=== PATIENT | male | born 1955 | race Caucasian/White ===

== ENCOUNTER 2016-10-05 10:27 | Inpatient (IN) | payer BC, OTHER ==
[2016-10-05 10:37] VITALS: BMI 42.5
--- NOTE | 2016-10-05 10:49 | PDOC ---
History of Present Illness <Jean Paul Justin - Last Filed: 10/05/16 14:17> - General History Source: Patient Exam Limitations: No Limitations - History of Present Illness Initial Comments: 10/05/16 11:21 The patient is a 60 year old male with past medical history of hypertension, GERD, and obesity and cigarette smoking who presents to the ED with complaints of testicular swelling for a week and a half and increased shortness of breath. The patient states that the swelling has been so bad that if effects his walking and sitting down. He reports seeing his Urologist on for the symptoms in which an ultrasound was performed and he was put on antibiotics. He reports that since starting the antibiotics, the swelling has gotten worse which has also been effecting his lower extremities. The patient states that he normally has shortness of breath, but it has worsened as well within the past few days to the point where he cannot walk a few steps without becoming short of breath. He denies any recent illness, fever, chills, nausea, vomiting, diarrhea, cough, chest pain. He denies any history of heart problems. Scrotal Ultrasound on 10/02/16 Report shows left epididymal head cysts and small complex right epididymal head cyst/hematocele. Significant soft tissue swelling/edema of the scrotal sac with vascular flow seen. PCP: Dr. Daniel Urologist: Dr. Flores <Janel Leos - Last Filed: 10/05/16 16:54> - General Chief Complaint: Urinary Problem Stated Complaint: POSSIBLE UTI Time Seen by Provider: 10/05/16 10:49 Past History - Past Medical History Anemia: No Asthma: No Cancer: No Cardiac Disorders: No CVA: No COPD: No CHF: No Dementia: No Diabetes: Yes (border line) GI Disorders: Yes (gerd) Disorders: No HTN: Yes Hypercholesterolemia: No Liver Disease: No Seizures: No Thyroid Disease: No Other medical history: morbid obesity/sleep apnea - Surgical History Abdominal Surgery: No Appendectomy: No Cardiac Surgery: No Cholecystectomy: No Lung Surgery: No Neurologic Surgery: No Orthopedic Surgery: No - Psycho/Social/Smoking Cessation Hx Anxiety: No Suicidal Ideation: No Smoking History: Current every day smoker Have you smoked in the past 12 months: Yes Number of Cigarettes Smoked Daily: 20 Information on smoking cessation initiated: Yes 'Breaking Loose' booklet given: 10/05/16 Hx Alcohol Use: No Drug/Substance Use Hx: No Substance Use Type: None <Jean Paul Justin - Last Filed: 10/05/16 14:17> <Janel Leos - Last Filed: 10/05/16 16:54> - Past Medical History Allergies/Adverse Reactions: Allergies Allergy/AdvReac Type Severity Reaction Status Date / Time No Known Allergies Allergy Verified 10/05/16 10:30 Home Medications: Ambulatory Orders Bystolic 10 mg PO DAILY 05/01/16 Exforge 10-160 mg Tablet 1 tab PO DAILY 05/01/16 Hydrochlorothiazide 12.5 mg PO DAILY 05/01/16 Amlodipine Besylate 10 mg PO DAILY 05/06/16 Pantoprazole Sodium [Protonix -] 1 tab PO DAILY 05/19/16 Ascorbate Calcium [Vitamin C] 1,000 mg PO DAILY 10/05/16 Aspirin [ASA -] 81 mg PO DAILY 10/05/16 Stratford-3/Dha/Epa/Fish Oil [[place]ford 3 500 Softgel] 350 mg PO DAILY 10/05/16 Sulfamethoxazole/Trimethoprim [Bactrim Ds Tablet] 1 each PO BID 10/05/16 Review of Systems - Review of Systems Able to Perform ROS?: Yes Comments:: 10/05/16 11:24 GENERAL/CONSTITUTIONAL: No fever or chills. No weakness. HEAD, EYES, EARS, NOSE AND THROAT: No change in vision. No ear pain or discharge. No sore throat. CARDIOVASCULAR: Present: shortness of breath, scrotal edema, bilateral lower extremity edema No chest pain. RESPIRATORY: No cough, wheezing, or hemoptysis. GASTROINTESTINAL: No nausea, vomiting, diarrhea or constipation. GENITOURINARY: No dysuria, frequency, or change in urination. MUSCULOSKELETAL: No joint or muscle swelling or pain. No neck or back pain. SKIN: No rash NEUROLOGIC: No headache, vertigo, loss of consciousness, or change in strength/ sensation. ENDOCRINE: No increased thirst. No abnormal weight change. HEMATOLOGIC/LYMPHATIC: No anemia, easy bleeding, or history of blood clots. ALLERGIC/IMMUNOLOGIC: No hives or skin allergy. All Other Systems: Reviewed and Negative <Janel Leos - Last Filed: 10/05/16 16:54> *Physical Exam - Vital Signs Last Vital Signs Temp Pulse Resp BP Pulse Ox 97.6 F 138 H 28 H 120/47 86 L 10/05/16 10:31 10/05/16 10:31 10/05/16 10:31 10/05/16 10:31 10/05/16 10:31 <Jean Paul Justin - Last Filed: 10/05/16 14:17> - Vital Signs Last Vital Signs Temp Pulse Resp BP Pulse Ox 97.6 F 145 H 22 100/76 89 L 10/05/16 10:31 10/05/16 11:10 10/05/16 11:10 10/05/16 11:10 10/05/16 11:10 - Physical Exam Comments: 10/05/16 11:25 GENERAL: Awake, alert, and fully oriented, in no acute distress HEAD: No signs of trauma EYES: PERRLA, EOMI, sclera anicteric, conjunctiva clear ENT: Auricles normal inspection, hearing grossly normal, nares patent, oropharynx clear without exudates. Moist mucosa NECK: Present: bilateral JVD Normal ROM, supple, no lymphadenopathy, or masses LUNGS: Present: bilateral rales No wheezes, and no crackles HEART: Regular rate and rhythm, normal S1 and S2, no murmurs, rubs or gallops ABDOMEN: Soft, nontender, normoactive bowel sounds. No guarding, no rebound. No masses EXTREMITIES: Normal range of motion, no edema. No clubbing or cyanosis. No cords, erythema, or tenderness NEUROLOGICAL: Cranial nerves II through XII grossly intact. Normal speech, normal gait SKIN: Warm, Dry, normal turgor, no rashes or lesions noted. <Janel Leos - Last Filed: 10/05/16 16:54> Heart Score/ECG Review - ECG Intrepretation Comment:: 10/05/16 11:33 ECG obtained at 10:49. Atrial fibrillation with rapid ventricular response at 140 bpm. Low voltage QRS. Significant change from last ECG report on 05/2015 <Janel Leos - Last Filed: 10/05/16 16:54> ED Treatment Course - LABORATORY CBC & Chemistry Diagram: 10/05/16 11:20 10/05/16 11:20 <Jean Paul Justin - Last Filed: 10/05/16 14:17> - LABORATORY CBC & Chemistry Diagram: 10/05/16 11:20 10/05/16 11:20 - RADIOLOGY Radiograph Interpretation: 10/05/16 11:59 CXR as reported by Dr. Perez reports large heart, new congestive changes with pleural fluid with atelectasis or infiltrate at bases. Chronic change in right upper lobe - Medications Given in the ED: ED Medications Discontinued Medications Generic Name Dose Route Start Last Admin Trade Name Taylor PRN Reason Stop Dose Admin Diltiazem HCl 30 mg 10/05/16 11:15 10/05/16 11:17 Cardizem - PO 10/05/16 11:16 30 mg ONCE ONE Administration Diltiazem HCl 10 mg 10/05/16 11:15 10/05/16 11:17 Cardizem Injection - IVPUSH 10/05/16 11:16 10 mg ONCE ONE Administration <Janel Leos - Last Filed: 10/05/16 16:54> Medical Decision Making - Critical Care Time Total Critical Care Time (minutes): 40 Critical Care Statement: The care of this patient involved high complexity decision making to prevent further life threatening deterioration of the patient 's condition and/or to evalute & treat vital organ system(s) failure or risk of failure. - Medical Decision Making 10/05/16 11:28 The patient is a 60 year old male with past medical history of hypertension, GERD, and obesity and cigarette smoking. The patient denies any history of heart disease. Last saw PCP last June. The patient presents today with a new onset of Afib. The patient is currently having his heart rate controlled by cardizem both IV and orally. Awaiting CXR, BMP, and cardiac profile. Will call María. Suspect to be admitted to telemetry. 10/05/16 12:01 CXR demonstrates pleuritic changes. Will administer Lasix. 10/05/16 12:08 Phone call placed to Dr. Daniel and discussed case with Dr. Sanz, instructed to admit to hospitalist with cardiology consult Dr. Carlin. Microblog sent to hospitalist 10/05/16 16:36 At 15:20, Subsequently receiving Percocet,the patient began to become unresponsive with the biomedical engineering aide at bedside. The patient was ultimately intubated after multiple attempts which resulted in assistance from anesthesia. 15:21 120 of succinate administered. 15:21 20 of etomidate administered with heart rate of 147; 109/68 bpm. 15:23 40 of lasix with heart rate of 157; O2 at 97 15:25 Heart rate of 160; intubation attempted with 7 1/2, not successful. 15:27 139 bpm and 97 O2 sat 15:30 152 bpm and 96 O2 sat 15:31 141 bpm and 85 O2 sat 15:32 154 bpm and 90 O2 sat; intubation attempted with 7, not successful 15:38 20 of etomidate O2 sat of 75 15:39 116/85 bp 15:40 Intubation successful with #7 ETT with help of anesthesia 15:51 CXR portable ordered The patient will receive a central line for hemodynamic management. Patient is now vented, in ER bed with vent settings of Tidal volume initially at 1000, then to 750, and now at 500. Case was discussed with Dr. Brown and biomedical engineering aide Dr. Reyes. <Janel Leos - Last Filed: 10/05/16 16:54> *DC/Admit/Observation/Transfer - Discharge Dispostion Admit: Yes - Attestations Physician Attestion: 10/05/16 10:49 I, Dr. Jean Paul Justin, attest that this document has been prepared under my direction and personally reviewed by me in its entirety. I further attest, that it accurately reflects all work, treatment, procedures and medical decision -making performed by me. <Jean Paul Justin - Last Filed: 10/05/16 14:17> - Attestations Scribe Attestion: 10/05/16 11:26 Documentation prepared by Janel Leos, acting as mobile paramedical examiner for Jean Paul Justin DO. <Janel Leos - Last Filed: 10/05/16 16:54> Diagnosis at time of Disposition: Atrial fibrillation, new onset, Lymphedema of both lower extremities, Edema of scrotum Congestive heart failure (CHF) Qualifiers: Congestive heart failure type: combined Congestive heart failure chronicity: acute Qualified Code(s): I50.41 - Acute combined systolic (congestive) and diastolic (congestive) heart failure Abrasion hip/leg Qualifiers: Encounter type: initial encounter Laterality: right Qualified Code(s): S80.811A - Abrasion, right lower leg, initial encounter Cellulitis Qualifiers: Site of cellulitis: extremity Site of cellulitis of extremity: lower extremity Laterality: right Qualified Code(s): L03.115 - Cellulitis of right lower limb Diagnosis at time of Disposition: (Ruled Out): Cat scratch of right lower leg - Discharge Dispostion Condition at time of disposition: Fair - Referrals
[2016-10-05] MEDS ORDERED: dilTIAZem HCL 125 MG/25 ML - 25 ML VIAL ONE (11:06)
[2016-10-05] MEDS ORDERED: dilTIAZem HCL 30 MG TABLET (FP) ONE ×2 (11:12→13:29)
[2016-10-05] MEDS ORDERED: dilTIAZem HCL 30 MG TABLET (FP) PO ONE ×2 (11:15→12:59)
[2016-10-05] MEDS ORDERED: dilTIAZem HCL 50 MG/10 ML - 10 ML VIAL IVPUSH ONE ×2 (11:15→11:18)
[2016-10-05 11:47] LABS: BASOPHIL 0.9 % (0-2.0); EOSINOPHIL 1.8 % (0-4.5); MCH 31.7 pg (25.7-33.7); MCHC 32.5 g/dl (32.0-35.9); MEAN CELL VOLUME 97.5 fl (80-96); MEAN PLT VOLUME 9.8 fl (7.5-11.1); NEUTROPHILS 75.8 % (42.8-82.8); PLATELET COUNT 116 K/MM3 (134-434); RDW 17.1 % (11.9-15.9); WHITE BLOOD COUNT 8.8 K/mm3 (4.0-10.0)
[2016-10-05 11:54] LABS: ALBUMIN 3.2 g/dl (3.4-5.0); ANION GAP 13 (8-16); BILIRUBIN,TOTAL 1.7 mg/dL (0.2-1.0); CALCIUM 8.8 mg/dL (8.5-10.1); CO2 32 mmol/L (21-32); CREATININE 1.4 mg/dL (0.7-1.3); GLUCOSE,RANDOM 108 mg/dL (74-106); SGOT/AST 25 U/L (15-37); SGPT/ALT 23 U/L (12-78); TOT PROT 6.1 g/dl (6.4-8.2)
[2016-10-05 11:56] LABS: ALK PHOS 54 U/L (45-117); TROPONIN I < 0.02 ng/ml (0.00-0.05)
[2016-10-05 11:59] LABS: INR 1.33 (0.82-1.09); PROTHROMBIN TIME (PATIENT) 14.7 SEC (9.98-11.88)
[2016-10-05] MEDS ORDERED: FUROSEMIDE 40 MG/4 ML INJECTABLE VIAL ONE ×3 (12:00→19:43)
[2016-10-05] MEDS ORDERED: FUROSEMIDE 40 MG/4 ML INJECTABLE VIAL IVPB ONE (12:00)
[2016-10-05] MEDS ORDERED: OXYCODONE/APAP 5/325MG COMBO TABLET PO ONE (13:00)
[2016-10-05] MEDS ORDERED: ONDANSETRON *ODT* 4 MG TABLET SL ONE (13:00)
[2016-10-05] MEDS ORDERED: OXYCODONE/APAP 5/325MG COMBO TABLET ONE (13:29)
[2016-10-05] MEDS ORDERED: ONDANSETRON 8 MG TABLET (FP) PO ONE (13:29)
[2016-10-05] MEDS ORDERED: NALOXONE HCL 0.4 MG/ML VIAL ONE (15:14)
[2016-10-05] MEDS ORDERED: RAPID SEQUENCE INTUBATION KIT NR ONE (15:19)
[2016-10-05] MEDS ORDERED: ETOMIDATE 20 MG/10 ML AMPUL IVPUSH ONE ×2 (15:37→16:05)
[2016-10-05] MEDS ORDERED: FUROSEMIDE 40 MG/4 ML INJECTABLE VIAL IVPUSH ONE ×2 (15:44→22:42)
[2016-10-05] MEDS ORDERED: dilTIAZem HCL 50 MG/10 ML - 10 ML VIAL IVPUSH PRN (15:55)
--- NOTE | 2016-10-05 15:56 | PROC ---
Procedure Note Procedure: Anesthesia Support Representative Called to ER stat for pt with difficult airway. On arrival Sat 75% Told multiple attempts of intubation without success DL x 1 with [place] scope VC visualized vaguely due to blood #& ETT passed +etco2 BS bilaterally Tube taped at 22cm CXR ordered Sat increased to 93 % Care left to ER physicians Lobo Moore MD
[2016-10-05] MEDS ORDERED: PROPOFOL 100 ML ONE ×2 (16:02→21:47)
[2016-10-05] MEDS ORDERED: SUCCINYLCHOLINE CHLORIDE 200 MG/10 ML VIAL IVPUSH ONE (16:04)
[2016-10-05] MEDS ORDERED: ETOMIDATE 40 MG/20 ML VIAL IVPUSH ONE (16:04)
[2016-10-05] MEDS ORDERED: ROCURONIUM BROMIDE 50 MG/5 ML VIAL IV ONE (16:04)
[2016-10-05] MEDS ORDERED: DOPAMINE 400 MG/D5W - 250 ML IVPB ONE (16:12)
[2016-10-05] MEDS ORDERED: PHENYLEPHRINE HCL 20,000 MCG in SODIUM CHLORIDE 248 ML IVPB SCH (16:15)
[2016-10-05] MEDS ORDERED: DOPAMINE 400 MG/D5W - 250 ML IVPB SCH (16:15)
[2016-10-05] MEDS ORDERED: FUROSEMIDE 40 MG/4 ML INJECTABLE VIAL IVPUSH SCH (16:30)
[2016-10-05 16:46] LABS: ARTERIAL BLD GAS O2 SATURATION 97.6 % (90-98.9); ARTERIAL BLOOD GAS HCO3 29.3 meq/L (22-26)
[2016-10-05 16:52] LABS: ALLENS TEST POSITIVE; ART PUNCT SITE RIGHT RADIAL; LPM/O2% 100%; MECH. VENT. YES; PT. ON O2? YES; TYPE OF O2 MEC.VENT; VENT RATE 12; VT/PRESS 750
[2016-10-05] MEDS ORDERED: PHENYLEPHRINE HCL 10 MG/1 ML SINGLE DOSE VIAL ONE (16:59)
--- NOTE | 2016-10-05 17:32 | CONSULT ---
Consult Consult Specialty:: PULM/CCM Referred by:: ER Reason for Consultation:: Acute Respiratory Failure - History of Present Illness Chief Complaint: SOB / swelling History of Present Illness: 60 M, with listed medical/surgical history. Hypertension, GERD, and obesity, likely OSAS, and cigarette smoking. Apparently following with his PMD/ Urologist for lower extremity swelling and testicular swelling for a week and a half and increased shortness of breath. No travel history or sick contacts. Presented to the ER and decompensated requiring intubation. Now seen in the ER. He is intubated and sedated. He is on AC mode of vent 80% FiO2 and PEEP 0. His saturation is 96%. He remains in AFib with the rate in the low 100's. Right IJ TLC is being completed at the bedside. ABG noted and wa already adjusted by the primary team. Repeat will be obtained once he is settled in the ICU. CXR : ETT in position / consistent with APE / cardiomegaly. Off note : Scrotal US 10/02/16 : left epididymal head cysts and small complex right epididymal head cyst/hematocele. Significant soft tissue swelling/edema of the scrotal sac with vascular flow seen. - History Source History Provided By: Medical Record Limitations to Obtaining History: Clinical Condition - Alcohol/Substance Use Hx Alcohol Use: No - Smoking History Smoking history: Current every day smoker Have you smoked in the past 12 months: Yes Aproximately how many cigarettes per day: 20 Home Medications - Allergies Allergies/Adverse Reactions: Allergies Allergy/AdvReac Type Severity Reaction Status Date / Time No Known Allergies Allergy Verified 10/05/16 10:30 - Home Medications Home Medications: Ambulatory Orders Bystolic 10 mg PO DAILY 05/01/16 Hydrochlorothiazide 12.5 mg PO DAILY 05/01/16 Pantoprazole Sodium [Protonix -] 1 tab PO DAILY 05/19/16 Amlodipine/Valsartan [Exforge 5-160 mg Tablet] 1 tab PO DAILY 10/05/16 Ascorbate Calcium [Vitamin C] 1,000 mg PO DAILY 10/05/16 Aspirin [ASA -] 81 mg PO DAILY 10/05/16 Chancellor-3/Dha/Epa/Fish Oil [[place]ancellor 3 500 Softgel] 350 mg PO DAILY 10/05/16 Sulfamethoxazole/Trimethoprim [Bactrim Ds Tablet] 1 each PO BID 04/02/17 Review of Systems Unable to obtain ROS, reason: not able to provide Physical Exam Vital Signs: Vital Signs Temperature 97.6 F 10/05/16 10:31 Pulse Rate 133 H 10/05/16 17:16 Respiratory Rate 12 10/05/16 17:13 Blood Pressure 78/57 10/05/16 17:16 O2 Sat by Pulse Oximetry (%) 97 10/05/16 17:13 Constitutional: Yes: Obese, Other (Intubated and sedated) Eyes: Yes: Conjunctiva Clear HENT: Yes: Atraumatic, Normocephalic, Other (intubated) Neck: Yes: Supple, Trachea Midline Cardiovascular: Yes: Tachycardia, Pulse Irregular Respiratory: Yes: Accessory Muscle Use, Mechanically Ventilated, Poor Air Entry , Rales, Rhonchi, Tachypnea. No: Stridor, Wheezes Gastrointestinal: Yes: Normal Bowel Sounds, Soft, Abdomen, Obese ...Rectal Exam: Yes: Deferred Renal/: Yes: Scrotal Edema, Other (maxwell) Breast(s): Yes: Gynecomastia Extremities: Yes: Cold Edema: Yes Peripheral Pulses WNL: No Integumentary: Yes: Venous Stasis Changes Neurological: Yes: Other (sedated) Imaging - Results Chest X-ray: Report Reviewed, Image Reviewed Problem List - Problems (1) Atrial fibrillation, new onset Code(s): I48.91 - UNSPECIFIED ATRIAL FIBRILLATION (2) Congestive heart failure (CHF) Code(s): I50.9 - HEART FAILURE, UNSPECIFIED Qualifiers: Congestive heart failure type: combined Congestive heart failure chronicity: acute Qualified Code(s): I50.41 - Acute combined systolic ( congestive) and diastolic (congestive) heart failure (3) Edema of scrotum Code(s): N50.89 - OTHER SPECIFIED DISORDERS OF THE MALE GENITAL ORGANS (4) Lymphedema of both lower extremities Code(s): I89.0 - LYMPHEDEMA, NOT ELSEWHERE CLASSIFIED (5) Acute respiratory failure requiring reintubation Code(s): J96.00 - ACUTE RESPIRATORY FAILURE, UNSP W HYPOXIA OR HYPERCAPNIA (6) Sleep apnea Code(s): G47.30 - SLEEP APNEA, UNSPECIFIED (7) Renal insufficiency Code(s): N28.9 - DISORDER OF KIDNEY AND URETER, UNSPECIFIED (8) Morbid obesity Code(s): E66.01 - MORBID (SEVERE) OBESITY DUE TO EXCESS CALORIES Assessment/Plan ABG to be repeated Repeat CXR after TLC completed Strict I & O Cardiology consult ECHO Pressor support as needed (but I suspect he would benefit from an inotrope) If A Fib are uncontrolled and BP is marginal -> Digoxin or Amio (D/W cardiology ) Follow CE Sedate for vent synchrony Once hemodynamics are stable -> Add PEEP Will need formal sleep workup as an outpatient Monitor off ABX for now ICU monitoring Thank you. Dr Sanz CCTime 35"
--- NOTE | 2016-10-05 18:20 | PN ---
Teaching Attending Note Name of Resident: Hillary Reyes ATTENDING PHYSICIAN STATEMENT I saw and evaluated the patient. I reviewed the resident's note and discussed the case with the resident. I agree with the resident's findings and plan as documented. Patient was found hypoxic and was intubated in ED. Vital Signs Temperature 97.6 F 10/05/16 10:31 Pulse Rate 115 H 10/05/16 17:26 Respiratory Rate 12 10/05/16 17:26 Blood Pressure 90/72 10/05/16 17:26 O2 Sat by Pulse Oximetry (%) 96 10/05/16 17:26 CBCD WBC 8.8 K/mm3 (4.0-10.0) 10/05/16 11:20 RBC 5.66 M/mm3 (4.00-5.60) H 10/05/16 11:20 Hgb 17.9 GM/dL (11.7-16.9) H 10/05/16 11:20 Hct 55.2 % (35.4-49) H 10/05/16 11:20 MCV 97.5 fl (80-96) H 10/05/16 11:20 MCHC 32.5 g/dl (32.0-35.9) 10/05/16 11:20 RDW 17.1 % (11.9-15.9) H 10/05/16 11:20 Plt Count 116 K/MM3 (134-434) L 10/05/16 11:20 MPV 9.8 fl (7.5-11.1) D 10/05/16 11:20 CMP Sodium 143 mmol/L (136-145) 10/05/16 11:20 Potassium 3.9 mmol/L (3.5-5.1) 10/05/16 11:20 Chloride 98 mmol/L (98-107) 10/05/16 11:20 Carbon Dioxide 32 mmol/L (21-32) 10/05/16 11:20 Anion Gap 13 (8-16) 10/05/16 11:20 BUN 31 mg/dL (7-18) H D 10/05/16 11:20 Creatinine 1.4 mg/dL (0.7-1.3) H D 10/05/16 11:20 Creat Clearance w eGFR 51.35 (>60) 10/05/16 11:20 Random Glucose 108 mg/dL (74-106) H 10/05/16 11:20 Calcium 8.8 mg/dL (8.5-10.1) 10/05/16 11:20 Total Bilirubin 1.7 mg/dL (0.2-1.0) H D 10/05/16 11:20 AST 25 U/L (15-37) D 10/05/16 11:20 ALT 23 U/L (12-78) D 10/05/16 11:20 Alkaline Phosphatase 54 U/L (45-117) D 10/05/16 11:20 Total Protein 6.1 g/dl (6.4-8.2) L 10/05/16 11:20 Albumin 3.2 g/dl (3.4-5.0) L 10/05/16 11:20 CARDIAC ENZYMES Creatine Kinase 168 IU/L (39-308) 10/05/16 11:20 Troponin I < 0.02 ng/ml (0.00-0.05) 10/05/16 11:20 Chest: Intubated, positive for rales Heart: S1S2 positive, Afib with RVR rate of 115 Abdomen/Extremities: Anasarca : scrotal swelling size of large grapefruit ASSESSMENT AND PLAN: This is a 60 yo M every day smoker with PMH of HTN, GERD, and obesity who presents due to testicular swelling x 1 W and worsening SOB. #Acute respiratory failure s/p intubation ICU/Pulmonary consult , admitted to ICU Abg stst, Ceq6 x 3 more sets Chardio consult # Acute exacerbation of CHF , will get echo, ce q6 x 3 cardio consult , BNP, EKG, Lasix IV once BP is stable , for further orders # Afib with RVR with HR of 115 s/p cardizem in ED., Cardiology consult # aCUTE hYPOTENSION ON nEOSYNEPHRIN DRIP continue once BP stabilezes will start the patient on Lasix, SBP is on low side at this time. #Acute Renal failure # Anasarca DVT Px:Lovenox
--- NOTE | 2016-10-05 18:36 | HP ---
CHIEF COMPLAINT: "my scrotum hurts" PCP: Dr. Daniel Urologist: Dr. Flores HISTORY OF PRESENT ILLNESS: This is a 60 yo M every day smoker with PMH of HTN, GERD, and obesity who presents due to testicular swelling x 1 W and worsening SOB. His baseline exercise intolerance became worse over the past week and a half, him being unable to walk a few steps w/o needing to stop. He visited his Urologist on , had scrotal US done and was put on bactrim, whihc did not alleviate his symptoms. He also complains of increased LE and abd edema. He denies any recent illness, fever, chills, nausea, vomiting, diarrhea, cough, chest pain. He denies any history of heart problems. In ed he is tachycardic a fib 150s, diffusely edematous, cxr showing severe pulm congestion and cardiomegaly. Patient received 40 lasix iv and 2 percocet in ed as well as several doses cardizem. I found him unresponsive to sternal rub and blue in ED. He was last [facility] half an hour prior. He had a pulse, a fib rate 150's, agonal breathing, pulse ox 74%. He was intubated, given another 40 lasix, central line placed, admitted to ICU. before inubation, he did wake up while being bagged, moved both UE. History obtained from mother and record as patient was unresponsive Scrotal Ultrasound on 10/02/16 Report shows left epididymal head cysts and small complex right epididymal head cyst/hematocele. Significant soft tissue swelling/edema of the scrotal sac with vascular flow seen. ER course was notable for: (1)labs (2)cxr (3)lasix, cardizem, percocet Recent Travel: denies PAST MEDICAL HISTORY: as above PAST SURGICAL HISTORY: as above Social History: lives with mother Smoking: yes Alcohol: no Drugs: no Family History: HTN, HLD Allergies No Known Allergies Allergy (Verified 10/05/16 10:30) HOME MEDICATIONS: Home Medications Medication Instructions Recorded Bystolic 10 mg PO DAILY 05/01/16 Hydrochlorothiazide 12.5 mg PO DAILY 05/01/16 Pantoprazole Sodium [Protonix -] 1 tab PO DAILY 05/19/16 Amlodipine/Valsartan [Exforge 1 tab PO DAILY 10/05/16 5-160 mg Tablet] Ascorbate Calcium [Vitamin C] 1,000 mg PO DAILY 10/05/16 Aspirin [ASA -] 81 mg PO DAILY 10/05/16 [place]-3/Dha/Epa/Fish Oil [[place] 3 350 mg PO DAILY 10/05/16 500 Softgel] Sulfamethoxazole/Trimethoprim 1 each PO BID 10/05/16 [Bactrim Ds Tablet] REVIEW OF SYSTEMS unable to obtain PHYSICAL EXAMINATION Vital Signs - 24 hr 10/05/16 10/05/16 10/05/16 16:05 16:17 16:25 Pulse Rate Pulse Rate [ 120 H 87 Apical] Respiratory 30 H 12 12 Rate Blood Pressure Blood Pressure 88/76 86/50 [Left Arm] O2 Sat by Pulse Oximetry (%) 10/05/16 10/05/16 10/05/16 16:30 17:13 17:16 Pulse Rate 121 H 133 H Pulse Rate [ Apical] Respiratory 50 H 12 Rate Blood Pressure 84/55 78/57 Blood Pressure [Left Arm] O2 Sat by Pulse 97 97 Oximetry (%) 10/05/16 17:26 Pulse Rate Pulse Rate [ 115 H Apical] Respiratory 12 Rate Blood Pressure Blood Pressure 90/72 [Left Arm] O2 Sat by Pulse 96 Oximetry (%) GENERAL: unresponsive, blue HEAD: Normal with no signs of trauma, obese EYES: pinpoint EARS, NOSE, THROAT: Moist mucous membranes. NECK: supple + JVD LUNGS: diffuse ronchi HEART: tachy, irregular ABDOMEN: very distended, 1+ edema, moderately erythematous, reduced bowel sounds MUSCULOSKELETAL: No bony deformities UPPER EXTREMITIES: 2+ pulses, mild peripheral edema. LOWER EXTREMITIES: 1+ pulses, 3+ pitting edema, chronic stasis dermatitis b/l NEUROLOGICAL: unable to assess PSYCHIATRIC: unable to assess SKIN: Warm, dry Laboratory Results - last 24 hr 10/05/16 16:00 Puncture Site Right radial ABG pH 7.30 L ABG pCO2 at Pt Temp 61.4 H* ABG pO2 at Pt Temp 111.0 H ABG HCO3 29.3 H ABG O2 Sat (Measured) 97.6 ABG O2 Content 23.6 H ABG Base Excess 1.0 Ye Test Positive O2 Delivery Device Mec.vent Oxygen Flow Rate 100% Vent Mode A/c Vent Rate 12 Mechanical Rate Yes PEEP 0.0 Pressure Support Vent 750 ASSESSMENT/PLAN: This is a 60 yo M every day smoker with PMH of HTN, GERD, and obesity who presents due to testicular swelling x 1 W and worsening SOB. Acute decompensated CHF -NYHA class III-IV -severe fluid overload, anasarca -s/p 8 lasix IV -duplex LE -TTE -cardio consult appreciated -would start lasix 100 bid when pressure improves -trend trop -strict I and O -daily weight -am xray, abg -tele monitoring -icu monitoring Hypotension -cental line in -phenylephrine A fib -cardizem IV prn -vivienne full dose MONIE -creat 1.4 (baseline 0.9 in oct) -cardiorenal -renal consult -diurese Acute hypoxic respiratory failure -intubated -keep FIO2 >88 -daily weaning FEN -diurese -replete lytes -npo PPX: PPI, Vivienne Dispo: ICU Problem List - Problem (1) Acute respiratory failure requiring reintubation Code(s): J96.00 - ACUTE RESPIRATORY FAILURE, UNSP W HYPOXIA OR HYPERCAPNIA (2) Atrial fibrillation, new onset Code(s): I48.91 - UNSPECIFIED ATRIAL FIBRILLATION (3) Congestive heart failure (CHF) Code(s): I50.9 - HEART FAILURE, UNSPECIFIED Qualifiers: Congestive heart failure type: combined Congestive heart failure chronicity: acute Qualified Code(s): I50.41 - Acute combined systolic ( congestive) and diastolic (congestive) heart failure (4) Edema of scrotum Code(s): N50.89 - OTHER SPECIFIED DISORDERS OF THE MALE GENITAL ORGANS (5) Lymphedema of both lower extremities Code(s): I89.0 - LYMPHEDEMA, NOT ELSEWHERE CLASSIFIED (6) Morbid obesity Code(s): E66.01 - MORBID (SEVERE) OBESITY DUE TO EXCESS CALORIES (7) Renal insufficiency Code(s): N28.9 - DISORDER OF KIDNEY AND URETER, UNSPECIFIED (8) Sleep apnea Code(s): G47.30 - SLEEP APNEA, UNSPECIFIED (9) Acute kidney injury Code(s): N17.9 - ACUTE KIDNEY FAILURE, UNSPECIFIED (10) Anasarca Code(s): R60.1 - GENERALIZED EDEMA Visit type - Emergency Visit Emergency Visit: Yes ED Registration Date: 10/05/16 Care time: The patient presented to the Emergency Department on the above date and was hospitalized for further evaluation of their emergent condition. - New Patient This patient is new to me today: Yes Date on this admission: 10/05/16 - Critical Care Critical Care patient: Yes Total Critical Care Time (in minutes): 95 (na) Critical Care Statement: The care of this patient involved high complexity decision making to prevent further life threatening deterioration of the patient 's condition and/or to evalute & treat vital organ system(s) failure or risk of failure.
[2016-10-05] MEDS: FENTANYL INJECTION 500 MCG in DEXTROSE 5%-WATER - 90 ML IJ SCH (19:55)
[2016-10-05] MEDS ORDERED: FUROSEMIDE 100 MG/10 ML INJECTABLE VIAL IVPUSH ONE (20:00)
[2016-10-05] MEDS ORDERED: PNEUMOC 13-VAL CONJ-DIP CRM/PF 0.5 ML DISP.SYRIN IM ONE (20:00)
--- NOTE | 2016-10-05 20:13 | CON.NEP ---
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 Pt presented with increased shortness of breath and Scrotal edema. Pt found to have pulmonary edema While in ED pt required intubation Pt now in the ICU FIO2@ at 100% with PEEP of 10 Phenylephrine 15 mcg/min and now being switched to Levophed since LIJ line just inserted Also on Lovenox for new onset of A Fib Asked to evaluate for azotemia Pt is awake and responsive on the ventilator and denies any prior H/O kidney disease - History Source History Provided By: Medical Record - Alcohol/Substance Use Hx Alcohol Use: No - Smoking History Smoking history: Current every day smoker Have you smoked in the past 12 months: Yes Aproximately how many cigarettes per day: 20 Home Medications - Allergies Allergies/Adverse Reactions: Allergies Allergy/AdvReac Type Severity Reaction Status Date / Time No Known Allergies Allergy Verified 10/05/16 10:30 - Home Medications Home Medications: Ambulatory Orders Bystolic 10 mg PO DAILY 05/01/16 Hydrochlorothiazide 12.5 mg PO DAILY 05/01/16 Pantoprazole Sodium [Protonix -] 1 tab PO DAILY 05/19/16 Amlodipine/Valsartan [[place] 5-160 mg Tablet] 1 tab PO DAILY 10/05/16 Ascorbate Calcium [Vitamin C] 1,000 mg PO DAILY 10/05/16 Aspirin [ASA -] 81 mg PO DAILY 10/05/16 [place]-3/Dha/Epa/Fish Oil [[place] 3 500 Softgel] 350 mg PO DAILY 10/05/16 Sulfamethoxazole/Trimethoprim [Bactrim Ds Tablet] 1 each PO BID 10/05/16 Review of Systems Unable to obtain ROS, reason: Pt intubated Nephrology Consult - Height Height: 5 ft 8 in - Weight Weight: 280 lb 0.005 oz - BMI Body Mass Index (BMI): 42.5 - Lab Results CBC,BMP: Laboratory Tests 10/05/16 10/05/16 10/05/16 16:00 19:00 19:00 WBC 10.5 H RBC 5.67 H Hgb 17.9 H Hct 55.8 H MCV 98.4 H MCHC 32.1 RDW 17.6 H Plt Count 137 MPV 9.5 Neutrophils % 81.1 Lymphocytes % 5.4 L D Monocytes % 13.2 H Eosinophils % 0.2 D Basophils % 0.1 INR Pending ABG pH 7.30 L ABG pCO2 at Pt Temp 61.4 H* ABG pO2 at Pt Temp 111.0 H ABG HCO3 29.3 H ABG O2 Sat (Measured) 97.6 Laboratory Tests 10/05/16 11:20 Sodium 143 Potassium 3.9 Chloride 98 Carbon Dioxide 32 Anion Gap 13 BUN 31 H D Creatinine 1.4 H D Creat Clearance w eGFR 51.35 Random Glucose 108 H Total Bilirubin 1.7 H D Alkaline Phosphatase 54 D Creatine Kinase 168 Creatine Kinase Index 1.8 CK-MB (CK-2) 3.008 Troponin I < 0.02 B-Natriuretic Peptide 1613.37 H Total Protein 6.1 L Albumin 3.2 L Anion Gap: Anion Gap Anion Gap 13 (8-16) 10/05/16 11:20 - Imaging Chest X-ray: Other (CXR Enlarged heart with congestion, pleural effusions, atelectasis and/or infiltrate of the RLL) EKG: Other (EKG A Fib with RVR) - Physical Examination Vital Signs: Vital Signs Temperature 97 F L 10/05/16 18:15 Pulse Rate 133 H 10/05/16 19:00 Respiratory Rate 14 10/05/16 19:15 Blood Pressure 102/84 10/05/16 19:00 O2 Sat by Pulse Oximetry (%) 91 L 10/05/16 17:30 Neck: Yes: Other (L IJ Catheter) Cardiovascular: Yes: Pulse Irregular, S1, S2, Other (Distant heart sounds) Respiratory: Yes: Diminished (Equal air entry B/L with some rhonchi) Gastrointestinal: Yes: Soft, Distention, Other (Firm and reducible ombelical hernia present) Renal/: Yes: Other (Scrotal edema) Extremities: Yes: Other (Stasis changes of the LE) Edema: (Edema up to thighs ) Neurological: Yes: Alert, Other (Cooperative) Assessment/Plan Impression Azotemia likely prerenal from decompebnsated CHF in addition to medication effect including prior use of Bactrim, ARB and diuretic use Respiratory Failure from CHF New Onset of A Fib HTN Obesity Chronic smoker with possible JUANA Plan UA Echocardiogram Abdominal Sonogram Pt being given Lasix 60 mgs IV X1 and depending on the response and BP consider giving it as q 12h Cardiology to see pt Repeat labs in am including TFT Control of the HR and anticoagulation as per primary care Discussed with the luncheonette manager Bag Tester Thank You Will Follow Dr Hurley
[2016-10-05] MEDS ORDERED: AMIODARONE HCL 150 MG/3 ML VIAL IVPUSH ONE (20:16)
[2016-10-05 20:21] LABS: BASOPHIL 0.1 % (0-2.0); EOSINOPHIL 0.2 % (0-4.5); MCH 31.6 pg (25.7-33.7); MCHC 32.1 g/dl (32.0-35.9); MEAN CELL VOLUME 98.4 fl (80-96); MEAN PLT VOLUME 9.5 fl (7.5-11.1); NEUTROPHILS 81.1 % (42.8-82.8); PLATELET COUNT 137 K/MM3 (134-434); RDW 17.6 % (11.9-15.9); WHITE BLOOD COUNT 10.5 K/mm3 (4.0-10.0)
[2016-10-05] MEDS ORDERED: NOREPINEPHRINE BITARTRATE 4 MG/4 ML ML IV ONE (20:22)
[2016-10-05 20:29] LABS: URINE APPEARANCE SLCLOUDY; URINE BILIRUBIN NEGATIVE (NEGATIVE); URINE COLOR YELLOW; URINE GLUCOSE (UA) NEGATIVE (NEGATIVE); URINE KETONE NEGATIVE (NEGATIVE); URINE LEUK ESTERASE NEGATIVE (NEGATIVE); URINE NITRITE NEGATIVE (NEGATIVE); URINE UROBILINOGEN NEGATIVE E.U./dl (0.2-1.0)
[2016-10-05] MEDS: NOREPINEPHRINE BITARTRATE 8,000 MCG in DEXTROSE 5%-WATER - 492 ML IV SCH (20:30)
[2016-10-05] MEDS ORDERED: AMIODARONE HCL INJECTION 450 MG in DEXTROSE 5%-WATER - 241 ML IVPB SCH (20:30)
[2016-10-05 20:35] LABS: URINE BLOOD 2+ (NEGATIVE); URINE PROTEIN 1+ (NEGATIVE)
[2016-10-05 20:37] LABS: URINE BACTERIA RARE /hpf (NONE SEEN); URINE HYALINE CAST 8 /lpf; URINE MUCUS RARE; URINE RBC 8 /hpf (0-3); URINE WBC 1 /hpf (3-5)
[2016-10-05 20:41] LABS: INR 1.27 (0.82-1.09)
[2016-10-05 20:44] LABS: ALBUMIN 3.2 g/dl (3.4-5.0); CALCIUM 8.3 mg/dL (8.5-10.1); CREATININE 1.6 mg/dL (0.7-1.3)
[2016-10-05] MEDS ORDERED: AMIODARONE HCL INJECTION 450 MG in DEXTROSE 5%-WATER - 241 ML IVPB ONE (20:44)
[2016-10-05 20:45] LABS: BILIRUBIN,TOTAL 2.1 mg/dL (0.2-1.0); TOT PROT 6.2 g/dl (6.4-8.2)
[2016-10-05 20:48] LABS: MAGNESIUM 2.1 mg/dL (1.8-2.4); PHOSPHOROUS 6.4 mg/dL (2.5-4.9)
[2016-10-05 20:52] LABS: TROPONIN I < 0.02 ng/ml (0.00-0.05)
[2016-10-05] MEDS ORDERED: ALBUTEROL SO4 2.5/IPRATROPIUM 0.5 INH SOL 3 ML VIAL.NEB. NEB ONE (21:02)
[2016-10-05 21:13] LABS: ARTERIAL BLD GAS O2 SATURATION 89.6 % (90-98.9); ARTERIAL BLOOD GAS HCO3 31.2 meq/L (22-26)
[2016-10-05 21:14] LABS: ALLENS TEST POSITIVE; ART PUNCT SITE LEFT BRACHIAL; LPM/O2% 100; MECH. VENT. YES; PT. ON O2? YES; TYPE OF O2 VENT; VENT RATE 20; VT/PRESS 475
[2016-10-05 21:16] LABS: ARTERIAL BLOOD GAS pH 7.32 (7.35-7.45)
[2016-10-05] MEDS ORDERED: PT OWN MED DRAWER 7, Y5N ONE (21:53)
[2016-10-05] MEDS: PROPOFOL 100 ML IVPB SCH (21:59)
[2016-10-05] MEDS: ENOXAPARIN NA (PORCINE) 120 MG/0.8 ML DISP.SYRIN SQ SCH (22:00)
[2016-10-05] MEDS: CHLORHEXIDINE GLUCONATE 4% CLEANSER FOR DECOLONIZATION TP SCH (22:00)
[2016-10-05] MEDS ORDERED: ENOXAPARIN NA (PORCINE) 30 MG/0.3 ML DISP.SYRIN SQ SCH (22:00)
[2016-10-05] MEDS: MUPIROCIN 2% TOPICAL OINTMENT FOR DECOLONIZATION NS SCH (22:00)
[2016-10-06] MEDS ORDERED: ACETAMINOPHEN 1000 MG/100 ML VIAL (NON FORMULARY) IVPB ONE (00:02)
[2016-10-06] MEDS ORDERED: DOBUTAMINE 250 MG/D5W - 250 ML ONE (00:45)
[2016-10-06] MEDS ORDERED: DOBUTAMINE HCL 250,000 MCG in SODIUM CHLORIDE 230 ML IV SCH (02:00)
[2016-10-06] MEDS: ALBUTEROL SO4 2.5/IPRATROPIUM 0.5 INH SOL 3 ML VIAL.NEB. NEB SCH ×5 (05:51→23:02)
[2016-10-06 05:54] LABS: ARTERIAL BLD GAS O2 SATURATION 94.8 % (90-98.9); ARTERIAL BLOOD GAS BASE EXCESS 9.6 meq/l (-2-2)
[2016-10-06 05:55] LABS: ALLENS TEST POSITIVE
[2016-10-06 05:56] LABS: ARTERIAL BLOOD GAS pH 7.51 (7.35-7.45); LPM/O2% 80%; MECH. VENT. YES; PT. ON O2? YES; TYPE OF O2 MECH VENT; VENT RATE 19; VT/PRESS 475
[2016-10-06 05:57] LABS: ARTERIAL BLOOD GAS HCO3 33.9 meq/L (22-26); ARTERIAL BLOOD GAS PO2 68.4 mmHg (80-100)
[2016-10-06 06:17] LABS: MCH 31.9 pg (25.7-33.7); MCHC 32.9 g/dl (32.0-35.9); MEAN CELL VOLUME 96.8 fl (80-96); MEAN PLT VOLUME 9.5 fl (7.5-11.1); PLATELET COUNT 128 K/MM3 (134-434); RDW 17.3 % (11.9-15.9); WHITE BLOOD COUNT 8.8 K/mm3 (4.0-10.0)
[2016-10-06 06:46] LABS: ALBUMIN 2.9 g/dl (3.4-5.0)
[2016-10-06 07:01] LABS: ALK PHOS 47 U/L (45-117); ANION GAP 11 (8-16); BILIRUBIN,TOTAL 1.9 mg/dL (0.2-1.0); CALCIUM 8.3 mg/dL (8.5-10.1); CO2 36 mmol/L (21-32); CREATININE 1.5 mg/dL (0.7-1.3); GLUCOSE,RANDOM 92 mg/dL (74-106); MAGNESIUM 1.7 mg/dL (1.8-2.4); PHOSPHOROUS 3.9 mg/dL (2.5-4.9); SGOT/AST 23 U/L (15-37); SGPT/ALT 22 U/L (12-78); THYROID STIMULATING HORMONE 0.29 uIU/ml (0.358-3.74); TOT PROT 5.5 g/dl (6.4-8.2); TROPONIN I < 0.02 ng/ml (0.00-0.05)
[2016-10-06 07:04] LABS: TROPONIN I < 0.02 ng/ml (0.00-0.05)
[2016-10-06] MEDS ORDERED: MAGNESIUM SULF 50% (8.12 MEQ/2 ML-1 GM VIAL) IVPB ONE (08:06)
[2016-10-06] MEDS ORDERED: PT OWN MED DRAWER 7, Y5N ONE (08:34)
[2016-10-06] MEDS: KCL 10 MEQ IVPB 100 ML IVPB SCH ×3 (08:37→13:04)
[2016-10-06] MEDS: ENOXAPARIN NA (PORCINE) 120 MG/0.8 ML DISP.SYRIN SQ SCH (09:05)
[2016-10-06] MEDS: CHLORHEXIDINE GLUCONATE 0.12% 15ML CUP MM SCH ×2 (09:06→21:49)
[2016-10-06] MEDS: ASPIRIN 81 MG CHEWABLE TABLETS PO SCH (09:09)
[2016-10-06] MEDS: MUPIROCIN 2% TOPICAL OINTMENT FOR DECOLONIZATION NS SCH ×2 (09:09→21:49)
[2016-10-06] MEDS: PANTOPRAZOLE SODIUM 100 ML IVPB SCH (09:59)
[2016-10-06] MEDS ORDERED: dilTIAZem HCL 50 MG/10 ML - 10 ML VIAL IVPUSH ONE ×3 (11:21→15:45)
--- NOTE | 2016-10-06 11:37 | PN ---
Physical Exam: SUBJECTIVE: Patient seen and examined Patient resing in bed, intubated, sedated, on pressors. some occasional movememnt of b/l LE. pinpoint pupils. No acute events. urine output 4600 after 180 mg iv lasix yesterday, achieved negative fluid balance of -4.5L. BP 126/85 map 94. CVP 17, in A fib rate 117, O2 sat 92% Vent settin 17/475/60/50/12/5. No spontaneous breathing. On Levo@5, Amiodarone @0.5, Fentanyl @100, Propofol @ 25. OBJECTIVE: Vital Signs Period Temp Pulse Resp BP Sys/Clements Pulse Ox Last 24 Hr 97 F-99.7 F 87-139 12-50 78-126/50-89 86-97 GENERAL: unresponsive, pink HEAD: Normal with no signs of trauma, obese EYES: pinpoint EARS, NOSE, THROAT: Moist mucous membranes. NECK: supple + JVD LUNGS: diffuse ronchi HEART: tachy, irregular ABDOMEN: very distended, 1+ edema, moderately erythematous, reduced bowel sounds MUSCULOSKELETAL: No bony deformities UPPER EXTREMITIES: 2+ pulses, mild peripheral edema. LOWER EXTREMITIES: 1+ pulses, 3+ pitting edema, chronic stasis dermatitis b/l NEUROLOGICAL: unable to assess PSYCHIATRIC: unable to assess SKIN: Warm, dry Laboratory Results - last 24 hr 10/05/16 10/05/16 10/05/16 16:00 18:45 19:00 WBC 10.5 H RBC 5.67 H Hgb 17.9 H Hct 55.8 H MCV 98.4 H MCHC 32.1 RDW 17.6 H Plt Count 137 MPV 9.5 Neutrophils % 81.1 Lymphocytes % 5.4 L D Monocytes % 13.2 H Eosinophils % 0.2 D Basophils % 0.1 INR Puncture Site Right radial ABG pH 7.30 L ABG pCO2 at Pt Temp 61.4 H* ABG pO2 at Pt Temp 111.0 H ABG HCO3 29.3 H ABG O2 Sat (Measured) 97.6 ABG O2 Content 23.6 H ABG Base Excess 1.0 Ye Test Positive O2 Delivery Device Mec.vent Oxygen Flow Rate 100% Vent Mode A/c Vent Rate 12 Mechanical Rate Yes PEEP 0.0 Pressure Support Vent 750 Sodium Potassium Chloride Carbon Dioxide Anion Gap BUN Creatinine Creat Clearance w eGFR Random Glucose Lactic Acid Calcium Phosphorus Magnesium Total Bilirubin AST ALT Alkaline Phosphatase Creatine Kinase 141 Troponin I < 0.02 Total Protein Albumin TSH Free T4 Urine Color Urine Appearance Urine pH Ur Specific [place] Urine Protein Urine Glucose (UA) Urine Ketones Urine Blood Urine Nitrite Urine Bilirubin Urine Urobilinogen Ur Leukocyte Esterase Urine RBC Urine WBC Ur Epithelial Cells Urine Bacteria Hyaline Casts Urine Mucus 10/05/16 10/05/16 10/05/16 19:00 19:00 19:00 WBC RBC Hgb Hct MCV MCHC RDW Plt Count MPV Neutrophils % Lymphocytes % Monocytes % Eosinophils % Basophils % INR 1.27 H Puncture Site ABG pH ABG pCO2 at Pt Temp ABG pO2 at Pt Temp ABG HCO3 ABG O2 Sat (Measured) ABG O2 Content ABG Base Excess Ye Test O2 Delivery Device Oxygen Flow Rate Vent Mode Vent Rate Mechanical Rate PEEP Pressure Support Vent Sodium 143 Potassium 3.8 Chloride 99 Carbon Dioxide 32 Anion Gap 12 BUN 33 H Creatinine 1.6 H Creat Clearance w eGFR 44.02 Random Glucose 98 Lactic Acid 1.343 Calcium 8.3 L Phosphorus Magnesium Total Bilirubin 2.1 H D AST 30 ALT 24 Alkaline Phosphatase 54 Creatine Kinase Troponin I Total Protein 6.2 L Albumin 3.2 L TSH Free T4 Urine Color Urine Appearance Urine pH Ur Specific [place] Urine Protein Urine Glucose (UA) Urine Ketones Urine Blood Urine Nitrite Urine Bilirubin Urine Urobilinogen Ur Leukocyte Esterase Urine RBC Urine WBC Ur Epithelial Cells Urine Bacteria Hyaline Casts Urine Mucus 10/05/16 10/05/16 10/05/16 19:00 19:00 21:00 WBC RBC Hgb Hct MCV MCHC RDW Plt Count MPV Neutrophils % Lymphocytes % Monocytes % Eosinophils % Basophils % INR Puncture Site Left brachial ABG pH 7.32 L ABG pCO2 at Pt Temp 62.5 H* ABG pO2 at Pt Temp 62.0 L D ABG HCO3 31.2 H ABG O2 Sat (Measured) 89.6 L ABG O2 Content 21.6 ABG Base Excess 3.0 H Ye Test Positive O2 Delivery Device Vent Oxygen Flow Rate 100 Vent Mode A/c Vent Rate 20 Mechanical Rate Yes PEEP 8.0 Pressure Support Vent 475 Sodium Potassium Chloride Carbon Dioxide Anion Gap BUN Creatinine Creat Clearance w eGFR Random Glucose Lactic Acid Calcium Phosphorus 6.4 H Magnesium 2.1 Total Bilirubin AST ALT Alkaline Phosphatase Creatine Kinase Troponin I Total Protein Albumin TSH Free T4 Urine Color Yellow Urine Appearance Slcloudy Urine pH 5.0 Ur Specific [place] 1.009 Urine Protein 1+ H Urine Glucose (UA) Negative Urine Ketones Negative Urine Blood 2+ H Urine Nitrite Negative Urine Bilirubin Negative Urine Urobilinogen Negative Ur Leukocyte Esterase Negative Urine RBC 8 Urine WBC 1 Ur Epithelial Cells Rare Urine Bacteria Rare Hyaline Casts 8 Urine Mucus Rare 10/06/16 10/06/16 10/06/16 05:20 05:20 05:20 WBC 8.8 RBC 5.39 Hgb 17.2 H Hct 52.2 H MCV 96.8 H MCHC 32.9 RDW 17.3 H Plt Count 128 L MPV 9.5 Neutrophils % Lymphocytes % Monocytes % Eosinophils % Basophils % INR Puncture Site ABG pH ABG pCO2 at Pt Temp ABG pO2 at Pt Temp ABG HCO3 ABG O2 Sat (Measured) ABG O2 Content ABG Base Excess Ye Test O2 Delivery Device Oxygen Flow Rate Vent Mode Vent Rate Mechanical Rate PEEP Pressure Support Vent Sodium 145 Potassium 2.7 L* D Chloride 98 Carbon Dioxide 36 H Anion Gap 11 BUN 30 H Creatinine 1.5 H Creat Clearance w eGFR 47.42 Random Glucose 92 Lactic Acid 1.162 Calcium 8.3 L Phosphorus 3.9 D Magnesium 1.7 L Total Bilirubin 1.9 H AST 23 D ALT 22 Alkaline Phosphatase 47 Creatine Kinase 102 Troponin I < 0.02 Total Protein 5.5 L Albumin 2.9 L TSH 0.29 L D Free T4 Urine Color Urine Appearance Urine pH Ur Specific [place] Urine Protein Urine Glucose (UA) Urine Ketones Urine Blood Urine Nitrite Urine Bilirubin Urine Urobilinogen Ur Leukocyte Esterase Urine RBC Urine WBC Ur Epithelial Cells Urine Bacteria Hyaline Casts Urine Mucus 10/06/16 10/06/16 10/06/16 05:20 05:20 06:00 WBC RBC Hgb Hct MCV MCHC RDW Plt Count MPV Neutrophils % Lymphocytes % Monocytes % Eosinophils % Basophils % INR Puncture Site Md puncture ABG pH 7.51 H D ABG pCO2 at Pt Temp 43.3 D ABG pO2 at Pt Temp 68.4 L ABG HCO3 33.9 H ABG O2 Sat (Measured) 94.8 ABG O2 Content 23.0 H ABG Base Excess 9.6 H Ye Test Positive O2 Delivery Device Mech vent Oxygen Flow Rate 80% Vent Mode A/c Vent Rate 19 Mechanical Rate Yes PEEP 10.0 Pressure Support Vent 475 Sodium Potassium Chloride Carbon Dioxide Anion Gap BUN Creatinine Creat Clearance w eGFR Random Glucose Lactic Acid Calcium Phosphorus Magnesium Total Bilirubin AST ALT Alkaline Phosphatase Creatine Kinase 100 Troponin I < 0.02 Total Protein Albumin TSH Free T4 1.77 H Urine Color Urine Appearance Urine pH Ur Specific [place] Urine Protein Urine Glucose (UA) Urine Ketones Urine Blood Urine Nitrite Urine Bilirubin Urine Urobilinogen Ur Leukocyte Esterase Urine RBC Urine WBC Ur Epithelial Cells Urine Bacteria Hyaline Casts Urine Mucus Active Medications Generic Name Dose Route Start Last Admin Trade Name Freq PRN Reason Stop Dose Admin Albuterol/Ipratropium 1 amp 10/06/16 00:00 10/06/16 05:51 Duoneb - NEB 1 amp QIDR LYNETTE Administration Aspirin 81 mg 10/06/16 10:00 10/06/16 09:09 Asa - PO 81 mg DAILY LYNETTE Administration Chlorhexidine Gluconate 1 applic 10/05/16 22:00 10/05/16 22:00 Hibiclens For Decolonization - TP 1 applic HS LYNETTE Administration Chlorhexidine Gluconate 15 ml 10/06/16 10:00 10/06/16 09:06 Peridex - MM 15 ml BID LYNETTE Administration Diltiazem HCl 10 mg 10/06/16 11:21 Cardizem Injection - IVPUSH 10/06/16 11:22 ONCE ONE Enoxaparin Sodium 120 mg 10/05/16 22:00 10/06/16 09:05 Lovenox - SQ 120 mg BID LYNETTE Administration Furosemide 40 mg 10/06/16 14:00 Lasix Injection - IVPUSH BID@0600,1400 LYNETTE Pantoprazole Sodium 100 mls @ 200 mls/hr 10/06/16 10:00 10/06/16 09:59 Protonix 40mg Ivpb (Pre-Docked) IVPB 200 mls/hr DAILY LYNETTE Administration Norepinephrine Bitartrate 8, 500 mls @ 18.75 mls/hr 10/05/16 20:30 10/06/16 09: 54 000 mcg/ Dextrose IV 3 mcg/min TITR LYNETTE Titration Protocol 5 MCG/MIN Fentanyl 500 mcg/ Dextrose 100 mls @ 5 mls/hr 10/05/16 20:45 10/06/16 09:36 IJ 75 mcg/hr TITR LYNETTE Titration 25 MCG/HR Propofol 100 mls @ 3.81 mls/hr 10/05/16 21:45 10/05/16 23:00 Diprivan - IVPB 25 mcg/kg/min TITR LYNETTE Titration Protocol 5 MCG/KG/MIN Mupirocin 1 applic 10/05/16 22:00 10/06/16 09:09 Bactroban Ointment (For Decolonization) - NS 10/10/16 21:59 1 applic BID LYNETTE Administration Potassium Chloride 40 meq 10/06/16 11:26 K-Dur - PO 10/06/16 11:27 ONCE ONE ASSESSMENT/PLAN: This is a 60 yo M every day smoker with PMH of HTN, GERD, and obesity who presents due to testicular swelling x 1 W and worsening SOB. Acute decompensated CHF -NYHA class III-IV -severe fluid overload, anasarca -s/p 180mg lasix IV -negative fluid balance of -4.5L -duplex LE -TTE -cardio consult appreciated -ICU starting lasix 40 BID, would increase to at least 80 bid -trop negative -strict I and O -daily weight -am xray slightly improved, -abg metabolic alkalosis due to lasix -tele monitoring a fib -icu monitoring -wean off fentanyl Hypotension -wean off levophed -stop amiodatone and start cardizem drip A fib -cardizemdrip -chantelle full dose Hyperthyroid -tsh 0.29 -ft4 1.77 -baseline vs effect of amoidarone MONIE -creat 1.5 trending down from 1.6 (baseline 0.9 in apr) -cardiorenal -renal consult appreciated -diurese, suggests lasix 60 bid Acute hypoxic respiratory failure -intubated -keep FIO2 >88 -daily weaning FEN -diurese -replete lytes -npo PPX: PPI, Chantelle Dispo: ICU Problem List - Problems (1) Acute respiratory failure requiring reintubation Code(s): J96.00 - ACUTE RESPIRATORY FAILURE, UNSP W HYPOXIA OR HYPERCAPNIA (2) Atrial fibrillation, new onset Code(s): I48.91 - UNSPECIFIED ATRIAL FIBRILLATION (3) Congestive heart failure (CHF) Code(s): I50.9 - HEART FAILURE, UNSPECIFIED Qualifiers: Congestive heart failure type: combined Congestive heart failure chronicity: acute Qualified Code(s): I50.41 - Acute combined systolic ( congestive) and diastolic (congestive) heart failure (4) Edema of scrotum Code(s): N50.89 - OTHER SPECIFIED DISORDERS OF THE MALE GENITAL ORGANS (5) Lymphedema of both lower extremities Code(s): I89.0 - LYMPHEDEMA, NOT ELSEWHERE CLASSIFIED (6) Morbid obesity Code(s): E66.01 - MORBID (SEVERE) OBESITY DUE TO EXCESS CALORIES (7) Renal insufficiency Code(s): N28.9 - DISORDER OF KIDNEY AND URETER, UNSPECIFIED (8) Sleep apnea Code(s): G47.30 - SLEEP APNEA, UNSPECIFIED (9) Acute kidney injury Code(s): N17.9 - ACUTE KIDNEY FAILURE, UNSPECIFIED (10) Anasarca Code(s): R60.1 - GENERALIZED EDEMA Visit type - Emergency Visit Emergency Visit: Yes ED Registration Date: 10/05/16 Care time: The patient presented to the Emergency Department on the above date and was hospitalized for further evaluation of their emergent condition. - New Patient This patient is new to me today: No - Critical Care Critical Care patient: Yes Total Critical Care Time (in minutes): 51 Critical Care Statement: The care of this patient involved high complexity decision making to prevent further life threatening deterioration of the patient 's condition and/or to evalute & treat vital organ system(s) failure or risk of failure. - Discharge Referral Referred to [facility] No
--- NOTE | 2016-10-06 11:43 | CONSULT ---
Consultation: REQUESTING PROVIDER: CONSULT REQUEST: We have been asked to medically evaluate this patient for ( specify). HISTORY OF PRESENT ILLNESS: Patient came to ed with a compain of incraesing swelling in legs, scrotum and lower abdominal wall with incraesing shortness of breath. Patient was diagnosed with acute excerbration of CHF with atrial fibrillation. Patient was intubated in ed as patient was hypoxic, cynotic and not responding. Patient got iv lasix, cardiazem in ed and is on full dose of lovenox. Patient is also on amiadron drip for a fib. NG suction : 800 on ventilator sedated with propofol and fentanyl vcv on nor epi at 5 will stop the amiadrone as dont know since how long patient has a fib. will do rate control with iv cardiazem and continie with ac. taper norepi. start on iv lasix 40mg iv bid . will send free t3 REVIEW OF SYSTEMS: unobtainable, patient sedated and intubated. PHYSICAL EXAMINATION Vital Signs - 24 hr 10/05/16 10/05/16 10/05/16 16:05 16:17 16:25 Temperature Pulse Rate Pulse Rate [ 120 H 87 Apical] Respiratory 30 H 12 12 Rate Blood Pressure Blood Pressure 88/76 86/50 [Left Arm] O2 Sat by Pulse Oximetry (%) 10/05/16 10/05/16 10/05/16 16:30 17:00 17:13 Temperature Pulse Rate 121 H Pulse Rate [ Apical] Respiratory 50 H 14 12 Rate Blood Pressure 84/55 Blood Pressure [Left Arm] O2 Sat by Pulse 97 90 L 97 Oximetry (%) 10/05/16 10/05/16 10/05/16 17:16 17:26 17:30 Temperature Pulse Rate 133 H Pulse Rate [ 115 H 116 H Apical] Respiratory 12 14 Rate Blood Pressure 78/57 Blood Pressure 90/72 90/77 [Left Arm] O2 Sat by Pulse 96 91 L Oximetry (%) 10/05/16 10/05/16 10/05/16 18:15 18:30 19:00 Temperature 97 F L 97 F L Pulse Rate 133 H 126 H 139 H Pulse Rate [ Apical] Respiratory 14 14 12 Rate Blood Pressure 86/71 96/75 102/87 Blood Pressure [Left Arm] O2 Sat by Pulse Oximetry (%) 04/08/2210/05/16 10/05/16 19:15 19:30 20:00 Temperature 97.2 F L 97.2 F L Pulse Rate 136 H 136 H Pulse Rate [ Apical] Respiratory 14 14 14 Rate Blood Pressure 103/76 103/76 Blood Pressure [Left Arm] O2 Sat by Pulse Oximetry (%) 10/05/16 10/05/16 10/05/16 20:30 21:00 21:14 Temperature 97.9 F 98.4 F Pulse Rate 133 H 115 H Pulse Rate [ Apical] Respiratory 18 20 20 Rate Blood Pressure 100/73 97/79 Blood Pressure [Left Arm] O2 Sat by Pulse 89 L Oximetry (%) 10/05/16 10/05/16 10/06/16 22:00 22:30 00:00 Temperature 99.1 F 99.5 F 99.0 F Pulse Rate 119 H 119 H 126 H Pulse Rate [ Apical] Respiratory 20 20 20 Rate Blood Pressure 107/71 104/74 110/63 Blood Pressure [Left Arm] O2 Sat by Pulse Oximetry (%) 10/06/16 10/06/16 10/06/16 00:29 01:00 01:30 Temperature 99.7 F H Pulse Rate 131 H 109 H Pulse Rate [ Apical] Respiratory 20 20 20 Rate Blood Pressure 101/72 93/61 Blood Pressure [Left Arm] O2 Sat by Pulse Oximetry (%) 10/06/16 10/06/16 10/06/16 02:00 02:15 02:30 Temperature 99.5 F Pulse Rate 121 H 122 H 122 H Pulse Rate [ Apical] Respiratory 20 18 18 Rate Blood Pressure 96/70 84/62 92/68 Blood Pressure [Left Arm] O2 Sat by Pulse Oximetry (%) 10/06/16 10/06/16 10/06/16 03:00 03:13 04:00 Temperature 99.0 F Pulse Rate 113 H 110 H Pulse Rate [ Apical] Respiratory 20 19 20 Rate Blood Pressure 94/73 111/75 Blood Pressure [Left Arm] O2 Sat by Pulse Oximetry (%) 10/06/16 10/06/16 10/06/16 05:00 06:00 06:43 Temperature 98.8 F 98.4 F Pulse Rate 112 H 116 H 113 H Pulse Rate [ Apical] Respiratory 20 20 20 Rate Blood Pressure 106/71 111/76 113/74 Blood Pressure [Left Arm] O2 Sat by Pulse Oximetry (%) 10/06/16 10/06/16 10/06/16 06:45 07:30 08:00 Temperature 98.4 F 98.2 F Pulse Rate 115 H 116 H Pulse Rate [ Apical] Respiratory 17 19 17 Rate Blood Pressure 107/71 111/75 Blood Pressure [Left Arm] O2 Sat by Pulse 92 L Oximetry (%) 10/06/16 10/06/16 10/06/16 09:00 09:15 09:30 Temperature 98.1 F Pulse Rate 115 H Pulse Rate [ Apical] Respiratory 17 14 Rate Blood Pressure 126/85 78/55 Blood Pressure [Left Arm] O2 Sat by Pulse 86 L Oximetry (%) 10/06/16 10/06/16 10/06/16 09:35 09:36 09:40 Temperature Pulse Rate 108 H Pulse Rate [ Apical] Respiratory 14 14 Rate Blood Pressure 85/52 Blood Pressure [Left Arm] O2 Sat by Pulse 94 L 86 L Oximetry (%) 10/06/16 10/06/16 10/06/16 09:54 10:00 10:01 Temperature 98.9 F Pulse Rate 117 H Pulse Rate [ Apical] Respiratory 14 14 Rate Blood Pressure 92/64 100/89 Blood Pressure [Left Arm] O2 Sat by Pulse 91 L Oximetry (%) 10/06/16 10/06/16 11:00 11:37 Temperature 98.0 F Pulse Rate 104 H Pulse Rate [ Apical] Respiratory 14 Rate Blood Pressure 112/69 Blood Pressure [Left Arm] O2 Sat by Pulse 96 Oximetry (%) GENERAL: sedated and intubated HEAD: Normal with no signs of trauma. EYES: puplil [place], EARS, NOSE, THROAT: Ears normal, nares patent, oropharynx clear without exudates. NECK: supple without lymphadenopathy, JVD, or masses. LUNGS: Breath sounds equal bilateral, . No wheezes, and b/l diffuse ronchi present. . HEART: s1s2 normal, hr irregularly irregular ABDOMEN: Soft, edema present in lower abdominal wall, scrotum, erythema present in lower abdominal wall UPPER EXTREMITIES: 2+ pulses, warm, well-perfused. No cyanosis. LOWER EXTREMITIES: 2+ pulses, warm, well-perfused. No calf tenderness.peripheral edema present 2+ NEUROLOGICAL: unobtainable SKIN: Warm, dry, Laboratory Results - last 24 hr 10/05/16 10/05/16 10/05/16 16:00 18:45 19:00 WBC 10.5 H RBC 5.67 H Hgb 17.9 H Hct 55.8 H MCV 98.4 H MCHC 32.1 RDW 17.6 H Plt Count 137 MPV 9.5 Neutrophils % 81.1 Lymphocytes % 5.4 L D Monocytes % 13.2 H Eosinophils % 0.2 D Basophils % 0.1 INR Puncture Site Right radial ABG pH 7.30 L ABG pCO2 at Pt Temp 61.4 H* ABG pO2 at Pt Temp 111.0 H ABG HCO3 29.3 H ABG O2 Sat (Measured) 97.6 ABG O2 Content 23.6 H ABG Base Excess 1.0 Ye Test Positive O2 Delivery Device Mec.vent Oxygen Flow Rate 100% Vent Mode A/c Vent Rate 12 Mechanical Rate Yes PEEP 0.0 Pressure Support Vent 750 Sodium Potassium Chloride Carbon Dioxide Anion Gap BUN Creatinine Creat Clearance w eGFR Random Glucose Lactic Acid Calcium Phosphorus Magnesium Total Bilirubin AST ALT Alkaline Phosphatase Creatine Kinase 141 Troponin I < 0.02 Total Protein Albumin TSH Free T4 Urine Color Urine Appearance Urine pH Ur Specific [place] Urine Protein Urine Glucose (UA) Urine Ketones Urine Blood Urine Nitrite Urine Bilirubin Urine Urobilinogen Ur Leukocyte Esterase Urine RBC Urine WBC Ur Epithelial Cells Urine Bacteria Hyaline Casts Urine Mucus 10/05/16 10/05/16 10/05/16 19:00 19:00 19:00 WBC RBC Hgb Hct MCV MCHC RDW Plt Count MPV Neutrophils % Lymphocytes % Monocytes % Eosinophils % Basophils % INR 1.27 H Puncture Site ABG pH ABG pCO2 at Pt Temp ABG pO2 at Pt Temp ABG HCO3 ABG O2 Sat (Measured) ABG O2 Content ABG Base Excess Ye Test O2 Delivery Device Oxygen Flow Rate Vent Mode Vent Rate Mechanical Rate PEEP Pressure Support Vent Sodium 143 Potassium 3.8 Chloride 99 Carbon Dioxide 32 Anion Gap 12 BUN 33 H Creatinine 1.6 H Creat Clearance w eGFR 44.02 Random Glucose 98 Lactic Acid 1.343 Calcium 8.3 L Phosphorus Magnesium Total Bilirubin 2.1 H D AST 30 ALT 24 Alkaline Phosphatase 54 Creatine Kinase Troponin I Total Protein 6.2 L Albumin 3.2 L TSH Free T4 Urine Color Urine Appearance Urine pH Ur Specific [place] Urine Protein Urine Glucose (UA) Urine Ketones Urine Blood Urine Nitrite Urine Bilirubin Urine Urobilinogen Ur Leukocyte Esterase Urine RBC Urine WBC Ur Epithelial Cells Urine Bacteria Hyaline Casts Urine Mucus 10/05/16 10/05/16 10/05/16 19:00 19:00 21:00 WBC RBC Hgb Hct MCV MCHC RDW Plt Count MPV Neutrophils % Lymphocytes % Monocytes % Eosinophils % Basophils % INR Puncture Site Left brachial ABG pH 7.32 L ABG pCO2 at Pt Temp 62.5 H* ABG pO2 at Pt Temp 62.0 L D ABG HCO3 31.2 H ABG O2 Sat (Measured) 89.6 L ABG O2 Content 21.6 ABG Base Excess 3.0 H Ye Test Positive O2 Delivery Device Vent Oxygen Flow Rate 100 Vent Mode A/c Vent Rate 20 Mechanical Rate Yes PEEP 8.0 Pressure Support Vent 475 Sodium Potassium Chloride Carbon Dioxide Anion Gap BUN Creatinine Creat Clearance w eGFR Random Glucose Lactic Acid Calcium Phosphorus 6.4 H Magnesium 2.1 Total Bilirubin AST ALT Alkaline Phosphatase Creatine Kinase Troponin I Total Protein Albumin TSH Free T4 Urine Color Yellow Urine Appearance Slcloudy Urine pH 5.0 Ur Specific [place] 1.009 Urine Protein 1+ H Urine Glucose (UA) Negative Urine Ketones Negative Urine Blood 2+ H Urine Nitrite Negative Urine Bilirubin Negative Urine Urobilinogen Negative Ur Leukocyte Esterase Negative Urine RBC 8 Urine WBC 1 Ur Epithelial Cells Rare Urine Bacteria Rare Hyaline Casts 8 Urine Mucus Rare 10/06/16 10/06/16 10/06/16 05:20 05:20 05:20 WBC 8.8 RBC 5.39 Hgb 17.2 H Hct 52.2 H MCV 96.8 H MCHC 32.9 RDW 17.3 H Plt Count 128 L MPV 9.5 Neutrophils % Lymphocytes % Monocytes % Eosinophils % Basophils % INR Puncture Site ABG pH ABG pCO2 at Pt Temp ABG pO2 at Pt Temp ABG HCO3 ABG O2 Sat (Measured) ABG O2 Content ABG Base Excess Ye Test O2 Delivery Device Oxygen Flow Rate Vent Mode Vent Rate Mechanical Rate PEEP Pressure Support Vent Sodium 145 Potassium 2.7 L* D Chloride 98 Carbon Dioxide 36 H Anion Gap 11 BUN 30 H Creatinine 1.5 H Creat Clearance w eGFR 47.42 Random Glucose 92 Lactic Acid 1.162 Calcium 8.3 L Phosphorus 3.9 D Magnesium 1.7 L Total Bilirubin 1.9 H AST 23 D ALT 22 Alkaline Phosphatase 47 Creatine Kinase 102 Troponin I < 0.02 Total Protein 5.5 L Albumin 2.9 L TSH 0.29 L D Free T4 Urine Color Urine Appearance Urine pH Ur Specific [place] Urine Protein Urine Glucose (UA) Urine Ketones Urine Blood Urine Nitrite Urine Bilirubin Urine Urobilinogen Ur Leukocyte Esterase Urine RBC Urine WBC Ur Epithelial Cells Urine Bacteria Hyaline Casts Urine Mucus 10/06/16 10/06/16 10/06/16 05:20 05:20 06:00 WBC RBC Hgb Hct MCV MCHC RDW Plt Count MPV Neutrophils % Lymphocytes % Monocytes % Eosinophils % Basophils % INR Puncture Site Md puncture ABG pH 7.51 H D ABG pCO2 at Pt Temp 43.3 D ABG pO2 at Pt Temp 68.4 L ABG HCO3 33.9 H ABG O2 Sat (Measured) 94.8 ABG O2 Content 23.0 H ABG Base Excess 9.6 H Ye Test Positive O2 Delivery Device Mech vent Oxygen Flow Rate 80% Vent Mode A/c Vent Rate 19 Mechanical Rate Yes PEEP 10.0 Pressure Support Vent 475 Sodium Potassium Chloride Carbon Dioxide Anion Gap BUN Creatinine Creat Clearance w eGFR Random Glucose Lactic Acid Calcium Phosphorus Magnesium Total Bilirubin AST ALT Alkaline Phosphatase Creatine Kinase 100 Troponin I < 0.02 Total Protein Albumin TSH Free T4 1.77 H Urine Color Urine Appearance Urine pH Ur Specific [place] Urine Protein Urine Glucose (UA) Urine Ketones Urine Blood Urine Nitrite Urine Bilirubin Urine Urobilinogen Ur Leukocyte Esterase Urine RBC Urine WBC Ur Epithelial Cells Urine Bacteria Hyaline Casts Urine Mucus 10/06/16 10:45 WBC RBC Hgb Hct MCV MCHC RDW Plt Count MPV Neutrophils % Lymphocytes % Monocytes % Eosinophils % Basophils % INR Puncture Site ABG pH ABG pCO2 at Pt Temp ABG pO2 at Pt Temp ABG HCO3 ABG O2 Sat (Measured) ABG O2 Content ABG Base Excess Ye Test O2 Delivery Device Oxygen Flow Rate Vent Mode Vent Rate Mechanical Rate PEEP Pressure Support Vent Sodium Potassium Chloride Carbon Dioxide Anion Gap BUN Creatinine Creat Clearance w eGFR Random Glucose Lactic Acid Calcium Phosphorus Magnesium 2.2 D Total Bilirubin AST ALT Alkaline Phosphatase Creatine Kinase Troponin I Total Protein Albumin TSH Free T4 Urine Color Urine Appearance Urine pH Ur Specific [place] Urine Protein Urine Glucose (UA) Urine Ketones Urine Blood Urine Nitrite Urine Bilirubin Urine Urobilinogen Ur Leukocyte Esterase Urine RBC Urine WBC Ur Epithelial Cells Urine Bacteria Hyaline Casts Urine Mucus Active Medications Generic Name Dose Route Start Last Admin Trade Name Freq PRN Reason Stop Dose Admin Albuterol/Ipratropium 1 amp 10/06/16 00:00 10/06/16 05:51 Duoneb - NEB 1 amp QIDR [facility] Administration Aspirin 81 mg 10/06/16 10:00 10/06/16 09:09 Asa - PO 81 mg DAILY [facility] Administration Chlorhexidine Gluconate 1 applic 10/05/16 22:00 10/05/16 22:00 Hibiclens For Decolonization - TP 1 applic HS [facility] Administration Chlorhexidine Gluconate 15 ml 10/06/16 10:00 10/06/16 09:06 Peridex - MM 15 ml BID [facility] Administration Diltiazem HCl 10 mg 10/06/16 11:21 Cardizem Injection - IVPUSH 10/06/16 11:22 ONCE ONE Enoxaparin Sodium 120 mg 10/05/16 22:00 10/06/16 09:05 Lovenox - SQ 120 mg BID [facility] Administration Furosemide 40 mg 10/06/16 14:00 Lasix Injection - IVPUSH BID@0600,1400 [facility] Pantoprazole Sodium 100 mls @ 200 mls/hr 10/06/16 10:00 10/06/16 09:59 Protonix 40mg Ivpb (Pre-Docked) IVPB 200 mls/hr DAILY [facility] Administration Norepinephrine Bitartrate 8, 500 mls @ 18.75 mls/hr 10/05/16 20:30 10/06/16 09: 54 000 mcg/ Dextrose IV 3 mcg/min TITR [facility] Titration Protocol 5 MCG/MIN Fentanyl 500 mcg/ Dextrose 100 mls @ 5 mls/hr 10/05/16 20:45 10/06/16 09:36 IJ 75 mcg/hr TITR [facility] Titration 25 MCG/HR Propofol 100 mls @ 3.81 mls/hr 10/05/16 21:45 10/05/16 23:00 Diprivan - IVPB 25 mcg/kg/min TITR [facility] Titration Protocol 5 MCG/KG/MIN Mupirocin 1 applic 10/05/16 22:00 10/06/16 09:09 Bactroban Ointment (For Decolonization) - NS 10/10/16 21:59 1 applic BID [facility] Administration Potassium Chloride 40 meq 10/06/16 11:26 K-Dur - PO 10/06/16 11:27 ONCE ONE ASSESSMENT/PLAN: This is a 60 yo M every day smoker with PMH of HTN, GERD, and obesity who presents due to testicular swelling, b/l lower leg swelling, swelling in lower part of anterior abdominal wall and worsening SOB. Acute exacerbation CHF with hypoxic respiratory failure continue with IV lasix 40mg iv bid monitor i/o, maintain negative balance daily weight monitor vitals follow echo on ventilator support, keep spo 2 over 90 ( fio2 100, peep 15, tv 475, cxr improved trop i x 2 negative cardiology consult monitor cvp A fib -cardizem IV prn - avoid lovenox due to monie, consider heparin drip - stop amiadrone Hypotension on nor epi at 3 taper nor epi keep MAP >65 MONIE -creat 1.5 (baseline 0.9 in oct) -cardiorenal - nephrology consult -diurese - avoid nephrotoxic drugs - monitor creatinine Hypokalemia and hypomagnesemia replace k and mg will try to keep K around 4 FEN -diurese -replete lytes -npo PPX: PPI, Chantelle Dispo: ICU Visit type - Emergency Visit Emergency Visit: Yes ED Registration Date: 10/05/16 Care time: The patient presented to the Emergency Department on the above date and was hospitalized for further evaluation of their emergent condition. - New Patient This patient is new to me today: Yes Date on this admission: 10/06/16 - Critical Care Critical Care patient: Yes Total Critical Care Time (in minutes): 45 Critical Care Statement: The care of this patient involved high complexity decision making to prevent further life threatening deterioration of the patient 's condition and/or to evalute & treat vital organ system(s) failure or risk of failure.
--- NOTE | 2016-10-06 11:50 | PN ---
Teaching Attending Note Name of Resident: Nick Kang ATTENDING PHYSICIAN STATEMENT I saw and evaluated the patient. I reviewed the resident's note and discussed the case with the resident. I agree with the resident's findings and plan as documented. SUBJECTIVE: Pt seen and examined in the ICU. Remains intubated, sedated. Hypoxic on FiO2 75 % PEEP 10. On levophed gtt for BP support. No fevers recorded. OBJECTIVE: Last Vital Signs Temp Pulse Resp BP Pulse Ox 98.0 F 104 H 14 112/69 96 10/06/16 11:00 10/06/16 11:00 10/06/16 11:00 10/06/16 11:00 10/06/16 11:37 Intake & Output 10/03/16 10/04/16 10/05/16 10/06/16 23:59 23:59 23:59 23:59 Intake Total 771.4 Output Total 1500 5300 Balance -1500 -4528.6 Weight 280 lb 0.005 oz 260 lb 1.6 oz Gen: intubated, sedated Heart: tachycardic, irregular Lung: scattered rhonchi Abd: soft, nontender, obese Ext: + edema, scrotal edema CBC, BMP 10/06/16 05:20 10/06/16 05:20 Active Medications Albuterol/Ipratropium (Duoneb -) 1 amp NEB QIDR [facility] Last Admin: 10/06/16 05:51 Dose: 1 amp Aspirin (Asa -) 81 mg PO DAILY [facility] Last Admin: 10/06/16 09:09 Dose: 81 mg Chlorhexidine Gluconate (Hibiclens For Decolonization -) 1 applic TP HS [facility] Last Admin: 10/05/16 22:00 Dose: 1 applic Chlorhexidine Gluconate (Peridex -) 15 ml MM BID [facility] Last Admin: 10/06/16 09:06 Dose: 15 ml Diltiazem HCl (Cardizem Injection -) 10 mg IVPUSH ONCE ONE Stop: 10/06/16 11:22 Enoxaparin Sodium (Lovenox -) 120 mg SQ BID [facility] Last Admin: 10/06/16 09:05 Dose: 120 mg Furosemide (Lasix Injection -) 40 mg IVPUSH BID@0600,1400 [facility] Pantoprazole Sodium (Protonix 40mg Ivpb (Pre-Docked)) 100 mls @ 200 mls/hr IVPB DAILY [facility] Last Admin: 10/06/16 09:59 Dose: 200 mls/hr Norepinephrine Bitartrate 8, (000 mcg/ Dextrose) 500 mls @ 18.75 mls/hr IV TITR [facility]; 5 MCG/MIN PRN Reason: Protocol Last Titration: 10/06/16 09:54 Dose: 3 mcg/min Fentanyl 500 mcg/ Dextrose 100 mls @ 5 mls/hr IJ TITR [facility] PRN Reason: 25 MCG/HR Last Titration: 10/06/16 09:36 Dose: 75 mcg/hr Propofol (Diprivan -) 100 mls @ 3.81 mls/hr IVPB TITR [facility]; 5 MCG/KG/MIN PRN Reason: Protocol Last Titration: 10/05/16 23:00 Dose: 25 mcg/kg/min Mupirocin (Bactroban Ointment (For Decolonization) -) 1 applic NS BID [facility] Stop: 10/10/16 21:59 Last Admin: 10/06/16 09:09 Dose: 1 applic Potassium Chloride (K-Dur -) 40 meq PO ONCE ONE Stop: 10/06/16 11:27 ASSESSMENT AND PLAN: Acute Hypoxic and Hypercapneic Respiratory Failure Suspect Acute Decompensated CHF Volume Overload Atrial Fibrillation with RVR Acute Kidney Injury Hyperthyroidism - IV lasix - monitor urine output, creatinine - daily weights, I/Os - echocardiogram - replete lytes - titrate levophed gtt to maintain MAP >65 - d/c amiodarone gtt - cardizem IVP, may need cardizem gtt for rate control - continue anticoagulation - check free T3 - cardiology evaluation - inhaled bronchodilators - titrate FiO2, PEEP to keep SpO2 >90% - enteral feeds in AM if hemodynamics stable - DVT/GI prophylaxis - continue ICU monitoring
[2016-10-06] MEDS ORDERED: POTASSIUM CHLORIDE TABS 20 MEQ TABLET.ER (FP) PO ONE (12:00)
--- NOTE | 2016-10-06 12:49 | PN ---
Progress Note, Physician History of Present Illness: Pt seen and examined at bedside. He remains in the ICU. Pt remain intubated. He is making urine. He is lethargic. - Current Medication List Current Medications: Active Medications Albuterol/Ipratropium (Duoneb -) 1 amp NEB QIDR [facility] Last Admin: 10/06/16 12:03 Dose: 1 amp Aspirin (Asa -) 81 mg PO DAILY [facility] Last Admin: 10/06/16 09:09 Dose: 81 mg Chlorhexidine Gluconate (Hibiclens For Decolonization -) 1 applic TP HS [facility] Last Admin: 10/05/16 22:00 Dose: 1 applic Chlorhexidine Gluconate (Peridex -) 15 ml MM BID [facility] Last Admin: 10/06/16 09:06 Dose: 15 ml Enoxaparin Sodium (Lovenox -) 120 mg SQ BID [facility] Last Admin: 10/06/16 09:05 Dose: 120 mg Furosemide (Lasix Injection -) 40 mg IVPUSH BID@0600,1400 [facility] Pantoprazole Sodium (Protonix 40mg Ivpb (Pre-Docked)) 100 mls @ 200 mls/hr IVPB DAILY [facility] Last Admin: 10/06/16 09:59 Dose: 200 mls/hr Norepinephrine Bitartrate 8, (000 mcg/ Dextrose) 500 mls @ 18.75 mls/hr IV TITR [facility]; 5 MCG/MIN PRN Reason: Protocol Last Titration: 10/06/16 09:54 Dose: 3 mcg/min Fentanyl 500 mcg/ Dextrose 100 mls @ 5 mls/hr IJ TITR [facility] PRN Reason: 25 MCG/HR Last Titration: 10/06/16 09:36 Dose: 75 mcg/hr Propofol (Diprivan -) 100 mls @ 3.81 mls/hr IVPB TITR [facility]; 5 MCG/KG/MIN PRN Reason: Protocol Last Titration: 10/05/16 23:00 Dose: 25 mcg/kg/min Mupirocin (Bactroban Ointment (For Decolonization) -) 1 applic NS BID [facility] Stop: 10/10/16 21:59 Last Admin: 10/06/16 09:09 Dose: 1 applic - Objective Vital Signs: Vital Signs Temperature 98.1 F 10/06/16 12:00 Pulse Rate 104 H 10/06/16 12:00 Respiratory Rate 14 10/06/16 12:02 Blood Pressure 99/66 10/06/16 12:00 O2 Sat by Pulse Oximetry (%) 93 L 10/06/16 12:01 Constitutional: Yes: Calm Eyes: Yes: Conjunctiva Clear Neck: Yes: Supple Cardiovascular: Yes: JVD, S1, S2 Respiratory: Yes: Mechanically Ventilated Gastrointestinal: Yes: Soft, Abdomen, Obese Genitourinary: Yes: Hilario Present Musculoskeletal: Yes: Muscle Weakness Edema: Yes Edema: LLE: 2+, RLE: 2+ Integumentary: Yes: Venous Stasis Changes Neurological: Yes: Lethargy Labs: CBC, BMP 10/06/16 05:20 10/06/16 05:20 INR, PTT INR 1.27 (0.82-1.09) H 10/05/16 19:00 - ....Imaging Chest X-ray: Report Reviewed (mild improvement in congertive changes) Problem List - Problems (1) Acute kidney injury Code(s): N17.9 - ACUTE KIDNEY FAILURE, UNSPECIFIED (2) Anasarca Code(s): R60.1 - GENERALIZED EDEMA (3) Congestive heart failure (CHF) Code(s): I50.9 - HEART FAILURE, UNSPECIFIED Qualifiers: Congestive heart failure type: combined Congestive heart failure chronicity: acute Qualified Code(s): I50.41 - Acute combined systolic ( congestive) and diastolic (congestive) heart failure (4) Morbid obesity Code(s): E66.01 - MORBID (SEVERE) OBESITY DUE TO EXCESS CALORIES (5) Renal insufficiency Code(s): N28.9 - DISORDER OF KIDNEY AND URETER, UNSPECIFIED Assessment/Plan Current Medications Generic Name Dose Route Start Last Admin Trade Name Freq PRN Reason Stop Dose Admin Albuterol/Ipratropium 1 amp 10/06/16 00:00 10/06/16 12:03 Duoneb - NEB 1 amp QIDR [facility] Administration Aspirin 81 mg 10/06/16 10:00 10/06/16 09:09 Asa - PO 81 mg DAILY [facility] Administration Chlorhexidine Gluconate 1 applic 10/05/16 22:00 10/05/16 22:00 Hibiclens For Decolonization - TP 1 applic HS [facility] Administration Chlorhexidine Gluconate 15 ml 10/06/16 10:00 10/06/16 09:06 Peridex - MM 15 ml BID [facility] Administration Enoxaparin Sodium 120 mg 10/05/16 22:00 10/06/16 09:05 Lovenox - SQ 120 mg BID [facility] Administration Furosemide 40 mg 10/06/16 14:00 Lasix Injection - IVPUSH BID@0600,1400 [facility] Pantoprazole Sodium 100 mls @ 200 mls/hr 10/06/16 10:00 10/06/16 09:59 Protonix 40mg Ivpb (Pre-Docked) IVPB 200 mls/hr DAILY [facility] Administration Norepinephrine Bitartrate 8, 500 mls @ 18.75 mls/hr 10/05/16 20:30 10/06/16 09: 54 000 mcg/ Dextrose IV 3 mcg/min TITR [facility] Titration Protocol 5 MCG/MIN Fentanyl 500 mcg/ Dextrose 100 mls @ 5 mls/hr 10/05/16 20:45 10/06/16 09:36 IJ 75 mcg/hr TITR [facility] Titration 25 MCG/HR Propofol 100 mls @ 3.81 mls/hr 10/05/16 21:45 10/05/16 23:00 Diprivan - IVPB 25 mcg/kg/min TITR [facility] Titration Protocol 5 MCG/KG/MIN Mupirocin 1 applic 10/05/16 22:00 10/06/16 09:09 Bactroban Ointment (For Decolonization) - NS 10/10/16 21:59 1 applic BID [facility] Administration Impression 1. Azotemia 2. CHF acute 3. acute resp failure requiring intubation 4. new onset atrial fibrillation 5. hx of htn 6. obesity 7. chronic smoker 8. hypokalemia Plan - cxr appears to be improving - cont with diuretics - replace potassium and repeat labs - discussed with ICU team and medical review specialist - cont vent support - pt is net negative, goal is to keep pt negative - follow up echo - daily cxr - replace magnesium - will follow Dr Delacruz
[2016-10-06] MEDS ORDERED: FUROSEMIDE 40 MG/4 ML INJECTABLE VIAL IVPUSH SCH (14:00)
[2016-10-06] MEDS: FENTANYL INJECTION 500 MCG in DEXTROSE 5%-WATER - 90 ML IJ SCH ×2 (14:08→21:44)
--- NOTE | 2016-10-06 14:48 | CONSULT ---
Consultation: REQUESTING PROVIDER: Dr. Justin CONSULT REQUEST: We have been asked to medically evaluate this patient for CHF and new onset AFIB HISTORY OF PRESENT ILLNESS: 60 yo M with PMHx of HTN, GERD,JUANA and obesity presented 10/05/16 with one week history of scrotal swelling and worsening HEART. Patient was seen in ED and found to have to be in AFib rate 150's, diffusely edematous, and CXR showing severe pulmonary congestion. Patient was given 40 of Lasix , 2 percocet, and cardizem. He then became cyanotic and unresponsive. Patient was subsequently found to be in acute respiratory failure and was intubated and transferred to ICU. In ICU central line was placed and patient was placed on Levophed for pressure support. Patient is currently intubated and sedated requiring 3 mcg/ min of Levophed to maintain MAP >65. Afib rate controlled with Cardizem PRN ( rate 110's). He has received total of 180mg IV Lasix and diuresed 6100ml and lost 20lbs in 24hrs. No prior history of Afib or CHF. 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 Lives alone independently. Family History: HTN, HLD Allergies No Known Allergies Allergy (Verified 10/05/16 10:30) REVIEW OF SYSTEMS: Unable to obtain as the patient is intubated and sedated. PHYSICAL EXAMINATION Vital Signs - 24 hr 10/05/16 10/05/16 10/05/16 16:05 16:17 16:25 Temperature Pulse Rate Pulse Rate [ 120 H 87 Apical] Respiratory 30 H 12 12 Rate Blood Pressure Blood Pressure 88/76 86/50 [Left Arm] O2 Sat by Pulse Oximetry (%) 10/05/16 10/05/16 10/05/16 16:30 17:00 17:13 Temperature Pulse Rate 121 H Pulse Rate [ Apical] Respiratory 50 H 14 12 Rate Blood Pressure 84/55 Blood Pressure [Left Arm] O2 Sat by Pulse 97 90 L 97 Oximetry (%) 10/05/16 10/05/16 10/05/16 17:16 17:26 17:30 Temperature Pulse Rate 133 H Pulse Rate [ 115 H 116 H Apical] Respiratory 12 14 Rate Blood Pressure 78/57 Blood Pressure 90/72 90/77 [Left Arm] O2 Sat by Pulse 96 91 L Oximetry (%) 10/05/16 10/05/16 10/05/16 18:15 18:30 19:00 Temperature 97 F L 97 F L Pulse Rate 133 H 126 H 139 H Pulse Rate [ Apical] Respiratory 14 14 12 Rate Blood Pressure 86/71 96/75 102/87 Blood Pressure [Left Arm] O2 Sat by Pulse Oximetry (%) 10/05/16 10/05/16 10/05/16 19:15 19:30 20:00 Temperature 97.2 F L 97.2 F L Pulse Rate 136 H 136 H Pulse Rate [ Apical] Respiratory 14 14 14 Rate Blood Pressure 103/76 103/76 Blood Pressure [Left Arm] O2 Sat by Pulse Oximetry (%) 10/05/16 10/05/16 10/05/16 20:30 21:00 21:14 Temperature 97.9 F 98.4 F Pulse Rate 133 H 115 H Pulse Rate [ Apical] Respiratory 18 20 20 Rate Blood Pressure 100/73 97/79 Blood Pressure [Left Arm] O2 Sat by Pulse 89 L Oximetry (%) 10/05/16 10/05/16 10/06/16 22:00 22:30 00:00 Temperature 99.1 F 99.5 F 99.0 F Pulse Rate 119 H 119 H 126 H Pulse Rate [ Apical] Respiratory 20 20 20 Rate Blood Pressure 107/71 104/74 110/63 Blood Pressure [Left Arm] O2 Sat by Pulse Oximetry (%) 10/06/16 10/06/16 10/06/16 00:29 01:00 01:30 Temperature 99.7 F H Pulse Rate 131 H 109 H Pulse Rate [ Apical] Respiratory 20 20 20 Rate Blood Pressure 101/72 93/61 Blood Pressure [Left Arm] O2 Sat by Pulse Oximetry (%) 10/06/16 10/06/16 10/06/16 02:00 02:15 02:30 Temperature 99.5 F Pulse Rate 121 H 122 H 122 H Pulse Rate [ Apical] Respiratory 20 18 18 Rate Blood Pressure 96/70 84/62 92/68 Blood Pressure [Left Arm] O2 Sat by Pulse Oximetry (%) 10/06/16 10/06/16 10/06/16 03:00 03:13 04:00 Temperature 99.0 F Pulse Rate 113 H 110 H Pulse Rate [ Apical] Respiratory 20 19 20 Rate Blood Pressure 94/73 111/75 Blood Pressure [Left Arm] O2 Sat by Pulse Oximetry (%) 10/06/16 10/06/16 10/06/16 05:00 06:00 06:43 Temperature 98.8 F 98.4 F Pulse Rate 112 H 116 H 113 H Pulse Rate [ Apical] Respiratory 20 20 20 Rate Blood Pressure 106/71 111/76 113/74 Blood Pressure [Left Arm] O2 Sat by Pulse Oximetry (%) 10/06/16 10/06/16 10/06/16 06:45 07:30 08:00 Temperature 98.4 F 98.2 F Pulse Rate 115 H 116 H Pulse Rate [ Apical] Respiratory 17 19 17 Rate Blood Pressure 107/71 111/75 Blood Pressure [Left Arm] O2 Sat by Pulse 92 L Oximetry (%) 10/06/16 10/06/16 10/06/16 09:00 09:15 09:30 Temperature 98.1 F Pulse Rate 115 H Pulse Rate [ Apical] Respiratory 17 14 Rate Blood Pressure 126/85 78/55 Blood Pressure [Left Arm] O2 Sat by Pulse 92 L 86 L Oximetry (%) 10/06/16 10/06/16 10/06/16 09:35 09:36 09:40 Temperature Pulse Rate 108 H Pulse Rate [ Apical] Respiratory 14 14 Rate Blood Pressure 85/52 Blood Pressure [Left Arm] O2 Sat by Pulse 94 L 86 L Oximetry (%) 10/06/16 10/06/16 10/06/16 09:54 10:00 10:01 Temperature 98.9 F Pulse Rate 117 H Pulse Rate [ Apical] Respiratory 14 14 Rate Blood Pressure 92/64 100/89 Blood Pressure [Left Arm] O2 Sat by Pulse 91 L Oximetry (%) 10/06/16 10/06/16 10/06/16 11:00 11:37 12:00 Temperature 98.0 F 98.1 F Pulse Rate 104 H 104 H Pulse Rate [ Apical] Respiratory 14 14 Rate Blood Pressure 112/69 99/66 Blood Pressure [Left Arm] O2 Sat by Pulse 96 Oximetry (%) 10/06/16 10/06/16 12:01 12:02 Temperature Pulse Rate Pulse Rate [ Apical] Respiratory 14 Rate Blood Pressure Blood Pressure [Left Arm] O2 Sat by Pulse 93 L Oximetry (%) GENERAL: Intubated and sedated. HEAD: NC/AT. EYES: Pinpoint pupils EARS, NOSE, THROAT: dry mucous membranes. NECK: LIJ TLC in place LUNGS: Scattered Rhonchoi, No accessory muscle use. HEART: Tachycardic, Irregularly irregular. No JVD ABDOMEN: Obese, distended. BS(+) UPPER EXTREMITIES: 2+ pulses, warm, well-perfused. No cyanosis. No clubbing. LOWER EXTREMITIES: 2+ pulses, warm, well-perfused. No calf tenderness.2+ edema to level of knees bilat. NEUROLOGICAL: sedated SKIN: Warm, dry, normal turgor, bilat. LE venous stasis dermatitis. Laboratory Results - last 24 hr 10/05/16 10/05/16 10/05/16 16:00 18:45 19:00 WBC 10.5 H RBC 5.67 H Hgb 17.9 H Hct 55.8 H MCV 98.4 H MCHC 32.1 RDW 17.6 H Plt Count 137 MPV 9.5 Neutrophils % 81.1 Lymphocytes % 5.4 L D Monocytes % 13.2 H Eosinophils % 0.2 D Basophils % 0.1 INR Puncture Site Right radial ABG pH 7.30 L ABG pCO2 at Pt Temp 61.4 H* ABG pO2 at Pt Temp 111.0 H ABG HCO3 29.3 H ABG O2 Sat (Measured) 97.6 ABG O2 Content 23.6 H ABG Base Excess 1.0 Ye Test Positive O2 Delivery Device Mec.vent Oxygen Flow Rate 100% Vent Mode A/c Vent Rate 12 Mechanical Rate Yes PEEP 0.0 Pressure Support Vent 750 Sodium Potassium Chloride Carbon Dioxide Anion Gap BUN Creatinine Creat Clearance w eGFR Random Glucose Lactic Acid Calcium Phosphorus Magnesium Total Bilirubin AST ALT Alkaline Phosphatase Creatine Kinase 141 Troponin I < 0.02 Total Protein Albumin TSH Free T4 Urine Color Urine Appearance Urine pH Ur Specific [place] Urine Protein Urine Glucose (UA) Urine Ketones Urine Blood Urine Nitrite Urine Bilirubin Urine Urobilinogen Ur Leukocyte Esterase Urine RBC Urine WBC Ur Epithelial Cells Urine Bacteria Hyaline Casts Urine Mucus 10/05/16 10/05/16 10/05/16 19:00 19:00 19:00 WBC RBC Hgb Hct MCV MCHC RDW Plt Count MPV Neutrophils % Lymphocytes % Monocytes % Eosinophils % Basophils % INR 1.27 H Puncture Site ABG pH ABG pCO2 at Pt Temp ABG pO2 at Pt Temp ABG HCO3 ABG O2 Sat (Measured) ABG O2 Content ABG Base Excess Ye Test O2 Delivery Device Oxygen Flow Rate Vent Mode Vent Rate Mechanical Rate PEEP Pressure Support Vent Sodium 143 Potassium 3.8 Chloride 99 Carbon Dioxide 32 Anion Gap 12 BUN 33 H Creatinine 1.6 H Creat Clearance w eGFR 44.02 Random Glucose 98 Lactic Acid 1.343 Calcium 8.3 L Phosphorus Magnesium Total Bilirubin 2.1 H D AST 30 ALT 24 Alkaline Phosphatase 54 Creatine Kinase Troponin I Total Protein 6.2 L Albumin 3.2 L TSH Free T4 Urine Color Urine Appearance Urine pH Ur Specific [place] Urine Protein Urine Glucose (UA) Urine Ketones Urine Blood Urine Nitrite Urine Bilirubin Urine Urobilinogen Ur Leukocyte Esterase Urine RBC Urine WBC Ur Epithelial Cells Urine Bacteria Hyaline Casts Urine Mucus 10/05/16 10/05/16 10/05/16 19:00 19:00 21:00 WBC RBC Hgb Hct MCV MCHC RDW Plt Count MPV Neutrophils % Lymphocytes % Monocytes % Eosinophils % Basophils % INR Puncture Site Left brachial ABG pH 7.32 L ABG pCO2 at Pt Temp 62.5 H* ABG pO2 at Pt Temp 62.0 L D ABG HCO3 31.2 H ABG O2 Sat (Measured) 89.6 L ABG O2 Content 21.6 ABG Base Excess 3.0 H Ye Test Positive O2 Delivery Device Vent Oxygen Flow Rate 100 Vent Mode A/c Vent Rate 20 Mechanical Rate Yes PEEP 8.0 Pressure Support Vent 475 Sodium Potassium Chloride Carbon Dioxide Anion Gap BUN Creatinine Creat Clearance w eGFR Random Glucose Lactic Acid Calcium Phosphorus 6.4 H Magnesium 2.1 Total Bilirubin AST ALT Alkaline Phosphatase Creatine Kinase Troponin I Total Protein Albumin TSH Free T4 Urine Color Yellow Urine Appearance Slcloudy Urine pH 5.0 Ur Specific [place] 1.009 Urine Protein 1+ H Urine Glucose (UA) Negative Urine Ketones Negative Urine Blood 2+ H Urine Nitrite Negative Urine Bilirubin Negative Urine Urobilinogen Negative Ur Leukocyte Esterase Negative Urine RBC 8 Urine WBC 1 Ur Epithelial Cells Rare Urine Bacteria Rare Hyaline Casts 8 Urine Mucus Rare 10/06/16 10/06/16 10/06/16 05:20 05:20 05:20 WBC 8.8 RBC 5.39 Hgb 17.2 H Hct 52.2 H MCV 96.8 H MCHC 32.9 RDW 17.3 H Plt Count 128 L MPV 9.5 Neutrophils % Lymphocytes % Monocytes % Eosinophils % Basophils % INR Puncture Site ABG pH ABG pCO2 at Pt Temp ABG pO2 at Pt Temp ABG HCO3 ABG O2 Sat (Measured) ABG O2 Content ABG Base Excess Ye Test O2 Delivery Device Oxygen Flow Rate Vent Mode Vent Rate Mechanical Rate PEEP Pressure Support Vent Sodium 145 Potassium 2.7 L* D Chloride 98 Carbon Dioxide 36 H Anion Gap 11 BUN 30 H Creatinine 1.5 H Creat Clearance w eGFR 47.42 Random Glucose 92 Lactic Acid 1.162 Calcium 8.3 L Phosphorus 3.9 D Magnesium 1.7 L Total Bilirubin 1.9 H AST 23 D ALT 22 Alkaline Phosphatase 47 Creatine Kinase 102 Troponin I < 0.02 Total Protein 5.5 L Albumin 2.9 L TSH 0.29 L D Free T4 Urine Color Urine Appearance Urine pH Ur Specific [place] Urine Protein Urine Glucose (UA) Urine Ketones Urine Blood Urine Nitrite Urine Bilirubin Urine Urobilinogen Ur Leukocyte Esterase Urine RBC Urine WBC Ur Epithelial Cells Urine Bacteria Hyaline Casts Urine Mucus 10/06/16 10/06/16 10/06/16 05:20 05:20 06:00 WBC RBC Hgb Hct MCV MCHC RDW Plt Count MPV Neutrophils % Lymphocytes % Monocytes % Eosinophils % Basophils % INR Puncture Site Md puncture ABG pH 7.51 H D ABG pCO2 at Pt Temp 43.3 D ABG pO2 at Pt Temp 68.4 L ABG HCO3 33.9 H ABG O2 Sat (Measured) 94.8 ABG O2 Content 23.0 H ABG Base Excess 9.6 H Ye Test Positive O2 Delivery Device Mech vent Oxygen Flow Rate 80% Vent Mode A/c Vent Rate 19 Mechanical Rate Yes PEEP 10.0 Pressure Support Vent 475 Sodium Potassium Chloride Carbon Dioxide Anion Gap BUN Creatinine Creat Clearance w eGFR Random Glucose Lactic Acid Calcium Phosphorus Magnesium Total Bilirubin AST ALT Alkaline Phosphatase Creatine Kinase 100 Troponin I < 0.02 Total Protein Albumin TSH Free T4 1.77 H Urine Color Urine Appearance Urine pH Ur Specific [place] Urine Protein Urine Glucose (UA) Urine Ketones Urine Blood Urine Nitrite Urine Bilirubin Urine Urobilinogen Ur Leukocyte Esterase Urine RBC Urine WBC Ur Epithelial Cells Urine Bacteria Hyaline Casts Urine Mucus 10/06/16 10:45 WBC RBC Hgb Hct MCV MCHC RDW Plt Count MPV Neutrophils % Lymphocytes % Monocytes % Eosinophils % Basophils % INR Puncture Site ABG pH ABG pCO2 at Pt Temp ABG pO2 at Pt Temp ABG HCO3 ABG O2 Sat (Measured) ABG O2 Content ABG Base Excess Ye Test O2 Delivery Device Oxygen Flow Rate Vent Mode Vent Rate Mechanical Rate PEEP Pressure Support Vent Sodium Potassium Chloride Carbon Dioxide Anion Gap BUN Creatinine Creat Clearance w eGFR Random Glucose Lactic Acid Calcium Phosphorus Magnesium 2.2 D Total Bilirubin AST ALT Alkaline Phosphatase Creatine Kinase Troponin I Total Protein Albumin TSH Free T4 Urine Color Urine Appearance Urine pH Ur Specific [place] Urine Protein Urine Glucose (UA) Urine Ketones Urine Blood Urine Nitrite Urine Bilirubin Urine Urobilinogen Ur Leukocyte Esterase Urine RBC Urine WBC Ur Epithelial Cells Urine Bacteria Hyaline Casts Urine Mucus Active Medications Generic Name Dose Route Start Last Admin Trade Name Freq PRN Reason Stop Dose Admin Albuterol/Ipratropium 1 amp 10/06/16 00:00 10/06/16 12:03 Duoneb - NEB 1 amp QIDR LYNETTE Administration Aspirin 81 mg 10/06/16 10:00 10/06/16 09:09 Asa - PO 81 mg DAILY LYNETTE Administration Chlorhexidine Gluconate 1 applic 10/05/16 22:00 10/05/16 22:00 Hibiclens For Decolonization - TP 1 applic HS LYNETTE Administration Chlorhexidine Gluconate 15 ml 10/06/16 10:00 10/06/16 09:06 Peridex - MM 15 ml BID LYNETTE Administration Diltiazem HCl 10 mg 10/06/16 14:21 Cardizem Injection - IVPUSH 10/06/16 14:22 ONCE ONE Enoxaparin Sodium 120 mg 10/05/16 22:00 10/06/16 09:05 Lovenox - SQ 120 mg BID LYNETTE Administration Furosemide 40 mg 10/06/16 14:00 10/06/16 13:04 Lasix Injection - IVPUSH 40 mg BID@0600,1400 LYNETTE Administration Pantoprazole Sodium 100 mls @ 200 mls/hr 10/06/16 10:00 10/06/16 09:59 Protonix 40mg Ivpb (Pre-Docked) IVPB 200 mls/hr DAILY LYNETTE Administration Norepinephrine Bitartrate 8, 500 mls @ 18.75 mls/hr 10/05/16 20:30 10/06/16 09: 54 000 mcg/ Dextrose IV 3 mcg/min TITR LYNETTE Titration Protocol 5 MCG/MIN Fentanyl 500 mcg/ Dextrose 100 mls @ 5 mls/hr 10/05/16 20:45 10/06/16 14:08 IJ 15 mls/hr TITR LYNETTE Administration 25 MCG/HR Propofol 100 mls @ 3.81 mls/hr 10/05/16 21:45 10/05/16 23:00 Diprivan - IVPB 25 mcg/kg/min TITR LYNETTE Titration Protocol 5 MCG/KG/MIN Mupirocin 1 applic 10/05/16 22:00 10/06/16 09:09 Bactroban Ointment (For Decolonization) - NS 10/10/16 21:59 1 applic BID LYNETTE Administration ASSESSMENT/PLAN: 60 yo M with PMHx of HTN, GERD, and obesity presented 10/05/16 with one week history of scrotal swelling and worsening HEART admitted to ICU for acute respiratory failure , CHF, and new onset afib. Dispo: We will continue to follow the patient. Thank you for this consultative opportunity. Problem List - Problems (1) Atrial fibrillation, new onset Assessment/Plan: * Recommend giving Digoxin 0.25 mg IV x1 and repeat in 6h x1 if necessary. Total of 0.5mg * Would avoid CCB due to worsening LV function seen on Echo. * Consider starting Beta joseph if pressure permits. * Switch Lovenox to heparin drip for anticoagulation. (2) Congestive heart failure (CHF) Assessment/Plan: * Admission BNP 1613.37 * Echo shows worsening LV function when compared to Echo 05/2016 * Given total of 180mg IV lasix - Diuresed total of 6.1L * Continue with 40mg Lasix IV BID. * Hilario with strict I/O's * Daily weights. * Will need further cardiac work up as outpatient. (3) Acute kidney injury Assessment/Plan: * Followed by Dr. Delacruz * No fluids at this time * Avoid nephrotoxic meds. Visit type - Emergency Visit Emergency Visit: Yes ED Registration Date: 10/05/16 Care time: The patient presented to the Emergency Department on the above date and was hospitalized for further evaluation of their emergent condition. - New Patient This patient is new to me today: Yes Date on this admission: 10/06/16 - Critical Care Critical Care patient: Yes Total Critical Care Time (in minutes): 50 Critical Care Statement: The care of this patient involved high complexity decision making to prevent further life threatening deterioration of the patient 's condition and/or to evalute & treat vital organ system(s) failure or risk of failure.
[2016-10-06] MEDS ORDERED: POTASSIUM CHLORIDE ORAL LIQUID 20 MEQ/15 ML PO ONE (15:45)
[2016-10-06] MEDS ORDERED: HEPARIN NA (PORCINE) 5,000 UNITS/ML 1ML VIAL IVPUSH PRN ×4 (17:13→21:30)
[2016-10-06] MEDS ORDERED: HEPARIN - 25,000 UNIT in SODIUM CHLORIDE 495 ML IV SCH (17:15)
[2016-10-06] MEDS: PROPOFOL 100 ML IVPB SCH ×2 (18:16→21:48)
[2016-10-06] MEDS ORDERED: HEPARIN INFUSION - 500 ML IVPB ONE (21:32)
[2016-10-06] MEDS: HEPARIN - 25,000 UNIT in SODIUM CHLORIDE 495 ML IV SCH (21:36)
[2016-10-06] MEDS: NOREPINEPHRINE BITARTRATE 8,000 MCG in DEXTROSE 5%-WATER - 492 ML IV SCH (21:44)
[2016-10-06] MEDS: CHLORHEXIDINE GLUCONATE 4% CLEANSER FOR DECOLONIZATION TP SCH (21:49)
--- NOTE | 2016-10-06 21:54 | PN ---
Teaching Attending Note Name of Resident: Hillary Reyes ATTENDING PHYSICIAN STATEMENT I saw and evaluated the patient. I reviewed the resident's note and discussed the case with the resident. I agree with the resident's findings and plan as documented. Events noted in ICU at night time, patient is sedated Intubated. Vital Signs Temperature 98.6 F 10/06/16 17:00 Pulse Rate 125 H 10/06/16 21:44 Respiratory Rate 14 10/06/16 18:39 Blood Pressure 78/52 10/06/16 21:44 O2 Sat by Pulse Oximetry (%) 93 L 10/06/16 12:01 CBCD WBC 8.8 K/mm3 (4.0-10.0) 10/06/16 05:20 RBC 5.39 M/mm3 (4.00-5.60) 10/06/16 05:20 Hgb 17.2 GM/dL (11.7-16.9) H 10/06/16 05:20 Hct 52.2 % (35.4-49) H 10/06/16 05:20 MCV 96.8 fl (80-96) H 10/06/16 05:20 MCHC 32.9 g/dl (32.0-35.9) 10/06/16 05:20 RDW 17.3 % (11.9-15.9) H 10/06/16 05:20 Plt Count 128 K/MM3 (134-434) L 10/06/16 05:20 MPV 9.5 fl (7.5-11.1) 10/06/16 05:20 CMP Sodium 145 mmol/L (136-145) 10/06/16 05:20 Potassium 3.1 mmol/L (3.5-5.1) L 10/06/16 16:00 Chloride 98 mmol/L (98-107) 10/06/16 05:20 Carbon Dioxide 36 mmol/L (21-32) H 10/06/16 05:20 Anion Gap 11 (8-16) 10/06/16 05:20 BUN 30 mg/dL (7-18) H 10/06/16 05:20 Creatinine 1.5 mg/dL (0.7-1.3) H 10/06/16 05:20 Creat Clearance w eGFR 47.42 (>60) 10/06/16 05:20 Random Glucose 92 mg/dL (74-106) 10/06/16 05:20 Calcium 8.3 mg/dL (8.5-10.1) L 10/06/16 05:20 Total Bilirubin 1.9 mg/dL (0.2-1.0) H 10/06/16 05:20 AST 23 U/L (15-37) D 10/06/16 05:20 ALT 22 U/L (12-78) 10/06/16 05:20 Alkaline Phosphatase 47 U/L (45-117) 10/06/16 05:20 Total Protein 5.5 g/dl (6.4-8.2) L 10/06/16 05:20 Albumin 2.9 g/dl (3.4-5.0) L 10/06/16 05:20 CARDIAC ENZYMES Creatine Kinase 102 IU/L (39-308) 10/06/16 05:20 Troponin I < 0.02 ng/ml (0.00-0.05) 10/06/16 05:20 Current Medications Generic Name Dose Route Start Last Admin Trade Name Freq PRN Reason Stop Dose Admin Albuterol/Ipratropium 1 amp 10/06/16 00:00 10/06/16 17:07 Duoneb - NEB 1 amp QIDR LYNETTE Administration Aspirin 81 mg 10/06/16 10:00 10/06/16 09:09 Asa - PO 81 mg DAILY LYNETTE Administration Chlorhexidine Gluconate 1 applic 10/05/16 22:00 10/06/16 21:49 Hibiclens For Decolonization - TP 1 applic HS LYNETTE Administration Chlorhexidine Gluconate 15 ml 10/06/16 10:00 10/06/16 21:49 Peridex - MM 15 ml BID LYNETTE Administration Furosemide 40 mg 10/06/16 14:00 10/06/16 13:04 Lasix Injection - IVPUSH 40 mg BID@0600,1400 LYNETTE Administration Heparin Sodium (Porcine) 1,000 unit 10/06/16 21:30 Heparin - IVPUSH PRN PRN Heparin Heparin Sodium (Porcine) 5,000 unit 10/06/16 21:30 Heparin - IVPUSH PRN PRN Heparin Pantoprazole Sodium 100 mls @ 200 mls/hr 10/06/16 10:00 10/06/16 09:59 Protonix 40mg Ivpb (Pre-Docked) IVPB 200 mls/hr DAILY LYNETTE Administration Norepinephrine Bitartrate 8, 500 mls @ 18.75 mls/hr 10/05/16 20:30 10/06/16 21: 44 000 mcg/ Dextrose IV 3.75 mls/hr TITR LYNETTE Administration Protocol 5 MCG/MIN Fentanyl 500 mcg/ Dextrose 100 mls @ 5 mls/hr 10/05/16 20:45 10/06/16 21:44 IJ 15 mls/hr TITR LYNETTE Administration 25 MCG/HR Propofol 100 mls @ 3.81 mls/hr 10/05/16 21:45 10/06/16 21:48 Diprivan - IVPB 19.051 mls/hr TITR LYNETTE Administration Protocol 5 MCG/KG/MIN Heparin Sodium (Porcine) 25, 500 mls @ 20 mls/hr 10/06/16 21:30 10/06/16 21:36 000 unit/ Sodium Chloride IV 20 mls/hr TITR LYNETTE Administration Protocol 1,000 UNIT/HR Mupirocin 1 applic 10/05/16 22:00 10/06/16 21:49 Bactroban Ointment (For Decolonization) - NS 10/10/16 21:59 1 applic BID LYNETTE Administration Home Medications Medication Instructions Recorded Bystolic 10 mg PO DAILY 05/01/16 Hydrochlorothiazide 12.5 mg PO DAILY 05/01/16 Pantoprazole Sodium [Protonix -] 1 tab PO DAILY 05/19/16 Amlodipine/Valsartan [Exforge 1 tab PO DAILY 10/05/16 5-160 mg Tablet] Ascorbate Calcium [Vitamin C] 1,000 mg PO DAILY 10/05/16 Aspirin [ASA -] 81 mg PO DAILY 10/05/16 [place]-3/Dha/Epa/Fish Oil [[place] 3 350 mg PO DAILY 10/05/16 500 Softgel] Sulfamethoxazole/Trimethoprim 1 each PO BID 10/05/16 [Bactrim Ds Tablet] ASSESSMENT AND PLAN: This is a 60 yo M every day smoker with PMH of HTN, GERD, and obesity who presents due to testicular swelling x 1 W and worsening SOB. #Acute respiratory failure s/p intubation ICU/Pulmonary consult , and cardio consult further settings per iCU team on Fentanyl drip, propofol continue # Acute exacerbation of CHF , will get echo, ce q6 x 3 cardio consult , BNP, EKG, Lasix IV once BP is stable , for further orders Echo ordered, on Lasix IV, Noerpi drip, heparin drip, # Afib with RVR ordered Amiodoran drip was ordered as per [employer] , heparin drip #Acute Hypotension on Neosynephrin DRIP continues once BP stabilezes will titrate it off , on Lasix iv #Acute Renal failure # Anasarca DVT Px:Heparin
[2016-10-07] MEDS ORDERED: NOREPINEPHRINE BITARTRATE 4 MG/4 ML ML IV ONE (00:34)
[2016-10-07] MEDS: VASOPRESSIN 50 UNITS in SODIUM CHLORIDE 97.5 ML IVPB SCH ×3 (01:28→18:10)
[2016-10-07] MEDS ORDERED: DIGOXIN 0.5 MG/2 ML AMPUL IVPUSH ONE (02:10)
--- NOTE | 2016-10-07 02:34 | PN ---
Teaching Attending Note Name of Resident: Bartolome Sanchez ATTENDING PHYSICIAN STATEMENT I saw and evaluated the patient. I reviewed the resident's note and discussed the case with the resident. I agree with the resident's findings and plan as documented. Patient was seen with the resident on cardiology service. (Bartolome Sanchez M.D. ) SUBJECTIVE: Patient is a 60 year old male who presented with scrotal edema and shortness of breath. His underlying PMH includes hypertension, GERD and exogenous obesity. He is currently intubated on mechanical ventilation due to respiratory failure. Patient was also found to have atrial fibrillation with occasional RVR. Urine output is descent. He was initially given Amiodarone, but was discontinued. He appears to have hyperthyroidism. OBJECTIVE: Neck: Supple Positive JVD Respiratory: Diminished Breath Sounds at the Bases Cardiovascular: S1 S2 Irregularly Irregular Gastrointestinal: Soft Benign Normal Bowel Sounds Ext: 1-2+ Edema Bilaterally ASSESSMENT AND PLAN: 1. Acute class III-IV NYHA classification LV failure related to systolic LV dysfunction, respiratory failure requiring mechanical ventilation 2. Persistent atrial fibrillation with improved ventricular response, [id number] score of 2 3. Acute Hypoxic and Hypercapneic Respiratory Failure 4. Thrombocytopenia 5. MONIE resolved 6. OSAS 7. LV systolic dysfunction PLAN: 1. Diuresis with monitoring renal function and electrolytes. Supplement K as needed. 2. Continue medical therapy including Digoxin IV and beta joseph IV intermittently to rate control 3. Heparin drip instead of Lovenox 4. Ideally should be on ACEI or ARBS as hemodynamic tolerate 5. Wean vent as tolerated. Vent management as per Critical Care team Guarded. Spoke with patient's mother by bedside Discussed with resident in ICU Khalif Correa MD
[2016-10-07] MEDS ORDERED: AMIODARONE HCL INJECTION 450 MG in DEXTROSE 5%-WATER - 241 ML IVPB SCH (03:00)
[2016-10-07] MEDS: ALBUTEROL SO4 2.5/IPRATROPIUM 0.5 INH SOL 3 ML VIAL.NEB. NEB SCH ×3 (05:21→18:09)
[2016-10-07 06:21] LABS: BASOPHIL 1.3 % (0-2.0); EOSINOPHIL 2.7 % (0-4.5); MCH 32.1 pg (25.7-33.7); MCHC 33.1 g/dl (32.0-35.9); MEAN PLT VOLUME 9.3 fl (7.5-11.1); NEUTROPHILS 74.2 % (42.8-82.8); PLATELET COUNT 115 K/MM3 (134-434); RDW 16.8 % (11.9-15.9); WHITE BLOOD COUNT 7.1 K/mm3 (4.0-10.0)
[2016-10-07 06:40] LABS: TROPONIN I < 0.02 ng/ml (0.00-0.05)
[2016-10-07 06:47] LABS: CALCIUM 8.1 mg/dL (8.5-10.1); CREATININE 1.2 mg/dL (0.7-1.3); PHOSPHOROUS 3.9 mg/dL (2.5-4.9)
[2016-10-07 07:31] LABS: ALLENS TEST POSITIVE; ART PUNCT SITE RIGHT RADIAL; ARTERIAL BLD GAS O2 SATURATION 93.4 % (90-98.9); ARTERIAL BLOOD GAS BASE EXCESS 11.8 meq/l (-2-2); ARTERIAL BLOOD GAS HCO3 39.6 meq/L (22-26); ARTERIAL BLOOD GAS PO2 69.2 mmHg (80-100); ARTERIAL BLOOD GAS pH 7.42 (7.35-7.45); LPM/O2% 85%; PT. ON O2? YES
[2016-10-07 07:32] LABS: MECH. VENT. YES; TYPE OF O2 MECHANICAL VENT; VENT RATE 14; VT/PRESS 475ML
--- NOTE | 2016-10-07 07:40 | PN ---
Progress Note (short form) - Note Progress Note: Chief Complaint: Events noted, notes reviewed, remains intubated and sedated, Amiodarone initiated but recommend D/C since duration of AF is not known, remains on pressors with Vasopressin History of Present Illness: Seen and examined in the ICU. Events noted, notes reviewed, remains intubated and sedated, Amiodarone initiated but recommend D/C since duration of AF is not known, remains on pressors with Vasopressin Echocardiography revealed mild to moderate LV systolic dysfunction, moderate TR , RVSP of 30-40 mmHg Medications: Current Medications Albuterol/Ipratropium (Duoneb -) 1 amp NEB QIDR [facility] Last Admin: 10/07/16 05:21 Dose: 1 amp Aspirin (Asa -) 81 mg PO DAILY [facility] Last Admin: 10/06/16 09:09 Dose: 81 mg Chlorhexidine Gluconate (Hibiclens For Decolonization -) 1 applic TP HS [facility] Last Admin: 10/06/16 21:49 Dose: 1 applic Chlorhexidine Gluconate (Peridex -) 15 ml MM BID [facility] Last Admin: 10/06/16 21:49 Dose: 15 ml Furosemide (Lasix Injection -) 40 mg IVPUSH BID@0600,1400 [facility] Last Admin: 10/06/16 13:04 Dose: 40 mg Heparin Sodium (Porcine) (Heparin -) 1,000 unit IVPUSH PRN PRN PRN Reason: Heparin Heparin Sodium (Porcine) (Heparin -) 5,000 unit IVPUSH PRN PRN PRN Reason: Heparin Pantoprazole Sodium (Protonix 40mg Ivpb (Pre-Docked)) 100 mls @ 200 mls/hr IVPB DAILY [facility] Last Admin: 10/06/16 09:59 Dose: 200 mls/hr Norepinephrine Bitartrate 8, (000 mcg/ Dextrose) 500 mls @ 18.75 mls/hr IV TITR [facility]; 5 MCG/MIN PRN Reason: Protocol Last Admin: 10/06/16 21:44 Dose: 3.75 mls/hr Fentanyl 500 mcg/ Dextrose 100 mls @ 5 mls/hr IJ TITR [facility] PRN Reason: 25 MCG/HR Last Admin: 10/06/16 21:44 Dose: 15 mls/hr Propofol (Diprivan -) 100 mls @ 3.81 mls/hr IVPB TITR [facility]; 5 MCG/KG/MIN PRN Reason: Protocol Last Admin: 10/06/16 21:48 Dose: 19.051 mls/hr Heparin Sodium (Porcine) 25, (000 unit/ Sodium Chloride) 500 mls @ 20 mls/hr IV TITR [facility]; 1,000 UNIT/HR PRN Reason: Protocol Last Admin: 10/06/16 21:36 Dose: 20 mls/hr Amiodarone HCl 450 mg/ (Dextrose) 250 mls @ 33.33 mls/hr IVPB TITR [facility]; 1 MG/ MIN PRN Reason: Protocol Vasopressin 50 units/ Sodium (Chloride) 100 mls @ 4 mls/hr IVPB ASDIR [facility]; 2 UNITS/HR PRN Reason: Protocol Mupirocin (Bactroban Ointment (For Decolonization) -) 1 applic NS BID [facility] Stop: 10/10/16 21:59 Last Admin: 10/06/16 21:49 Dose: 1 applic Review of Systems Unable to Obtain Vital Signs: Last Vital Signs Temp Pulse Resp BP Pulse Ox 99.8 F H 102 H 14 104/70 93 L 10/07/16 06:00 10/07/16 06:00 10/07/16 07:07 10/07/16 06:00 10/06/16 12:01 Intake & Output 10/04/16 10/05/16 10/06/16 10/07/16 23:59 23:59 23:59 23:59 Intake Total 1742.0 Output Total 1500 7600 1200 Balance -1500 -5858.0 -1200 Weight 280 lb 0.005 oz 260 lb 1.6 oz 280 lb 4.8 oz Neck: Supple Positive JVD Respiratory: Diminished Breath Sounds at the Bases Cardiovascular: S1 S2 Irregularly Irregular Gastrointestinal: Soft Benign Normal Bowel Sounds Ext: 1-2+ Edema Bilaterally Labs: CBC, BMP 10/07/16 05:55 10/07/16 05:55 INR, PTT INR 1.27 (0.82-1.09) H 10/05/16 19:00 Assessment/Plan ASSESSMENT: 1. Acute class III-IV NYHA classification LV failure related to systolic LV dysfunction, respiratory failure, resolving 2. Unclear if ischemic dilated cardiomyopathy vs. ideopathic cardiomyopathy vs. tachycardia induced cardiomyopathy 3. CAD angina pectoris to be excluded 4. Persistent atrial fibrillation with rapid ventricular response, [id number] score of 2 5. HTN 6. Hypercholesterolemia 7. Renal insufficiency 8. Polycythmia 9. Thrombocytopenia 10. Hypokalemia PLAN: 1. Continue IV Lasix 2. Continue Pressors maintaining MAP's > 65 and attempt to wean off 3. D/C Amiodarone as outlined above 4. Continue Heparin and eventually to be transitioned to NOAC's 5. Ideally should be on ACEI or ARBS unless it is contraindicated, hemodynamic stabilization 6. B-Blockers prn for rate control, hemodynamics permitting 7. Continue Digoxin with close monitoring of level 8. Attempt to wean off sedation and extubate as per the critical care team 9. Correction of Hypokalemia Bran Carlin MD
[2016-10-07] MEDS ORDERED: KCL 10 MEQ IVPB 100 ML IVPB SCH (07:45)
--- NOTE | 2016-10-07 07:51 | EKG ---
Test Reason : Blood Pressure : / mmHG Vent. Rate : 140 BPM Atrial Rate : 141 BPM P-R Int : 000 ms QRS Dur : 086 ms QT Int : 264 ms P-R-T Axes : 000 041 -30 degrees QTc Int : 403 ms ATRIAL FIBRILLATION WITH RAPID VENTRICULAR RESPONSE LOW VOLTAGE QRS CANNOT RULE OUT ANTERIOR INFARCT , AGE UNDETERMINED NONSPECIFIC T WAVE ABNORMALITY ABNORMAL ECG WHEN COMPARED WITH ECG OF 10-MAY-2015 14:44, ATRIAL FIBRILLATION HAS REPLACED SINUS RHYTHM VENT. RATE HAS INCREASED BY 76 BPM NONSPECIFIC T WAVE ABNORMALITY NOW EVIDENT IN Confirmed by SHIRA SALDIVAR MD ([id number]) on 10/07/2016 7:51:05 AM Referred By: Confirmed By:SHIRA SALDIVAR MD
[2016-10-07] MEDS ORDERED: METOPROLOL TARTRATE 5 MG/5 ML VIAL IVPUSH PRN (07:56)
[2016-10-07] MEDS ORDERED: POTASSIUM CHLORIDE ORAL LIQUID 20 MEQ/15 ML PO ONE ×3 (07:59→13:11)
--- NOTE | 2016-10-07 08:11 | MSN ---
[id number] sweeling X 1 1/2 weeks and increasing shortnesss of breath. PMH significant for HTN, GERD, obesity and cigarette smoking. He denied hx of heart disease at the time of presentation. H ecomplained of swelling affecting walking, sitting and although he had shortness of breath he noticed it was worsening with a few steps. He saw a Urologist before presenting at the ER and was given a US and placed on antibiotics. Pt co that sxs worsened on antibiotics. At the time of presentation he denied chills, nausea, vomiting, diarrhea, cough, chest pain. Pt was diagnosed with new onset Afib; lymphedema of both lower extremities and edema od the scrotum. Urine output-6900 ml in 24 hrs after 60 mg IV lasix, neg fluid balance of -5.8 L in 24 hrs. CVP: 30 @ afib rate: 125 - Current Medications Current Medications: Active Medications Albuterol/Ipratropium (Duoneb -) 1 amp NEB QIDR [facility] Last Admin: 10/07/16 05:21 Dose: 1 amp Aspirin (Asa -) 81 mg PO DAILY [facility] Last Admin: 10/06/16 09:09 Dose: 81 mg Chlorhexidine Gluconate (Hibiclens For Decolonization -) 1 applic TP HS [facility] Last Admin: 10/06/16 21:49 Dose: 1 applic Chlorhexidine Gluconate (Peridex -) 15 ml MM BID [facility] Last Admin: 10/06/16 21:49 Dose: 15 ml Digoxin (Lanoxin Injection -) 0.25 mg IVPUSH DAILY [facility] Furosemide (Lasix Injection -) 60 mg IVPUSH BID@0600,1400 [facility] Heparin Sodium (Porcine) (Heparin -) 1,000 unit IVPUSH PRN PRN PRN Reason: Heparin Heparin Sodium (Porcine) (Heparin -) 5,000 unit IVPUSH PRN PRN PRN Reason: Heparin Pantoprazole Sodium (Protonix 40mg Ivpb (Pre-Docked)) 100 mls @ 200 mls/hr IVPB DAILY [facility] Last Admin: 10/06/16 09:59 Dose: 200 mls/hr Fentanyl 500 mcg/ Dextrose 100 mls @ 5 mls/hr IJ TITR [facility] PRN Reason: 25 MCG/HR Last Admin: 10/06/16 21:44 Dose: 15 mls/hr Propofol (Diprivan -) 100 mls @ 3.81 mls/hr IVPB TITR [facility]; 5 MCG/KG/MIN PRN Reason: Protocol Last Admin: 10/06/16 21:48 Dose: 19.051 mls/hr Heparin Sodium (Porcine) 25, (000 unit/ Sodium Chloride) 500 mls @ 20 mls/hr IV TITR [facility]; 1,000 UNIT/HR PRN Reason: Protocol Last Admin: 10/06/16 21:36 Dose: 20 mls/hr Vasopressin 50 units/ Sodium (Chloride) 100 mls @ 4 mls/hr IVPB ASDIR [facility]; 2 UNITS/HR PRN Reason: Protocol Metoprolol Tartrate (Lopressor Injection -) 2.5 mg IVPUSH Q4H PRN PRN Reason: HYPERTENSION Mupirocin (Bactroban Ointment (For Decolonization) -) 1 applic NS BID [facility] Stop: 10/10/16 21:59 Last Admin: 10/06/16 21:49 Dose: 1 applic Potassium Chloride (Potassium Chloride Oral Liquid) 40 meq PO ONCE ONE Stop: 10/07/16 08:00 - Objective Vital Signs: Vital Signs Temperature 99.8 F H 10/07/16 06:00 Pulse Rate 102 H 10/07/16 06:00 Respiratory Rate 14 10/07/16 07:07 Blood Pressure 104/70 10/07/16 06:00 O2 Sat by Pulse Oximetry (%) 93 L 10/06/16 12:01 Constitutional: Yes: Other (Pt is sedated on a vent; not spontaneously breathing ) Eyes: Yes: Other (Pinpoint pupils B/L; no conjuctival redness) Neck: Yes: Other (B/L JVD, supple, no lymphadenopathy, or masses) Cardiovascular: Yes: Regular Rate and Rhythm, S1, S2 Respiratory: Yes: Other (Rales auscultated B/L lower lobes; no wheezing, no crakles) Gastrointestinal: Yes: Other (Abdomen distended, normoactive bowel sounds, no guarding, rebound; no masses) Peripheral Pulses: Left Doralis Pedis: 2+, Right Dorsalis Pedis: 2+ Edema: LLE: 1+ (mid calf to ankle), RLE: 1+ (mid calf to ankle) Integumentary: Yes: Other (B/L venous statis from mid calves to ankles; skin otherwise warm, dry, with normal turgor) <Dayna Dixon - Last Filed: 10/08/16 16:21> - Objective Vital Signs: Vital Signs Temperature 100.4 F H 10/09/16 18:00 Pulse Rate 109 H 10/09/16 18:00 Respiratory Rate 14 10/09/16 18:19 Blood Pressure 96/66 10/09/16 18:00 O2 Sat by Pulse Oximetry (%) 94 L 10/09/16 15:20 <Moisés Landis - Last Filed: 10/09/16 19:30> Labs Lab Results: CBC, BMP 10/07/16 05:55 10/07/16 05:55 Allergies Allergy/AdvReac Type Severity Reaction Status Date / Time No Known Allergies Allergy Verified 10/05/16 10:30 Current Medications Generic Name Dose Route Start Last Admin Trade Name Freq PRN Reason Stop Dose Admin Albuterol/Ipratropium 1 amp 10/06/16 00:00 10/07/16 11:05 Duoneb - NEB 1 amp QIDR [facility] Administration Aspirin 81 mg 10/06/16 10:00 10/07/16 09:17 Asa - PO 81 mg DAILY [facility] Administration Chlorhexidine Gluconate 1 applic 10/05/16 22:00 10/06/16 21:49 Hibiclens For Decolonization - TP 1 applic HS [facility] Administration Chlorhexidine Gluconate 15 ml 10/06/16 10:00 10/07/16 09:19 Peridex - MM 15 ml BID [facility] Administration Digoxin 0.25 mg 10/07/16 10:00 10/07/16 09:18 Lanoxin Injection - IVPUSH 0.25 mg DAILY [facility] Administration Furosemide 60 mg 10/07/16 09:00 10/07/16 09:17 Lasix Injection - IVPUSH 60 mg BID@0600,1400 [facility] Administration Heparin Sodium (Porcine) 1,000 unit 10/06/16 21:30 Heparin - IVPUSH PRN PRN Heparin Heparin Sodium (Porcine) 5,000 unit 10/06/16 21:30 Heparin - IVPUSH PRN PRN Heparin Pantoprazole Sodium 100 mls @ 200 mls/hr 10/06/16 10:00 10/07/16 09:19 Protonix 40mg Ivpb (Pre-Docked) IVPB 200 mls/hr DAILY [facility] Administration Fentanyl 500 mcg/ Dextrose 100 mls @ 5 mls/hr 10/05/16 20:45 10/06/16 21:44 IJ 15 mls/hr TITR [facility] Administration 25 MCG/HR Propofol 100 mls @ 3.81 mls/hr 10/05/16 21:45 10/07/16 11:06 Diprivan - IVPB 19 mls/hr TITR [facility] Administration Protocol 5 MCG/KG/MIN Heparin Sodium (Porcine) 25, 500 mls @ 20 mls/hr 10/06/16 21:30 10/06/16 21:36 000 unit/ Sodium Chloride IV 20 mls/hr TITR [facility] Administration Protocol 1,000 UNIT/HR Vasopressin 50 units/ Sodium 100 mls @ 4 mls/hr 10/07/16 02:10 10/07/16 06:00 Chloride IVPB 12 mls/hr ASDIR [facility] Administration Protocol 2 UNITS/HR Metoprolol Tartrate 2.5 mg 10/07/16 07:56 Lopressor Injection - IVPUSH Q4H PRN HYPERTENSION Mupirocin 1 applic 10/05/16 22:00 10/07/16 09:20 Bactroban Ointment (For Decolonization) - NS 10/10/16 21:59 1 applic BID [facility] Administration Potassium Chloride 40 meq 10/07/16 13:00 Potassium Chloride Oral Liquid PO 10/07/16 13:01 ONCE ONE Intake & Output 10/04/16 10/05/16 10/06/16 10/07/16 23:59 23:59 23:59 23:59 Intake Total 1742.0 Output Total 1500 7600 3000 Balance -1500 -5858.0 -3000 Weight 280 lb 0.005 oz 260 lb 1.6 oz 280 lb 4.8 oz All Active Problems Abrasion hip/leg (Acute) Acute kidney injury (Acute) Acute respiratory failure requiring reintubation (Acute) Anasarca (Acute) Atrial fibrillation, new onset (Acute) Cellulitis (Acute) Congestive heart failure (CHF) (Acute) Edema of scrotum (Acute) Lymphedema of both lower extremities (Acute) Morbid obesity (Acute) Renal insufficiency (Acute) Sleep apnea (Acute) Current Active Problems Abrasion hip/leg (Acute) Acute kidney injury (Acute) Acute respiratory failure requiring reintubation (Acute) Anasarca (Acute) Atrial fibrillation, new onset (Acute) Cellulitis (Acute) Congestive heart failure (CHF) (Acute) Edema of scrotum (Acute) Lymphedema of both lower extremities (Acute) Morbid obesity (Acute) Renal insufficiency (Acute) Sleep apnea (Acute) Last Vital Signs Temp Pulse Resp BP Pulse Ox 99 F 108 H 22 100/66 92 L 10/07/16 10:00 10/07/16 10:00 10/07/16 11:30 10/07/16 10:00 10/07/16 09:05 Laboratory Results - last 24 hr 10/06/16 10/07/16 10/07/16 16:00 02:20 02:20 WBC RBC Hgb Hct MCV MCHC RDW Plt Count MPV Neutrophils % Lymphocytes % Monocytes % Eosinophils % Basophils % PTT (Actin FS) Puncture Site ABG pH ABG pCO2 at Pt Temp ABG pO2 at Pt Temp ABG HCO3 ABG O2 Sat (Measured) ABG O2 Content ABG Base Excess Ye Test O2 Delivery Device Oxygen Flow Rate Vent Mode Vent Rate Mechanical Rate PEEP Pressure Support Vent Sodium Potassium 3.1 L Chloride Carbon Dioxide Anion Gap BUN Creatinine Random Glucose Calcium Phosphorus Magnesium Creatine Kinase Creatine Kinase Index CK-MB (CK-2) Y CK-MB (CK-2) Rel Index Troponin I 10/07/16 10/07/16 10/07/16 02:20 02:20 05:55 WBC 7.1 RBC 5.44 Hgb 17.4 H Hct 52.7 H MCV 97.0 H MCHC 33.1 RDW 16.8 H Plt Count 115 L MPV 9.3 Neutrophils % 74.2 Lymphocytes % 8.2 D Monocytes % 13.6 H Eosinophils % 2.7 D Basophils % 1.3 D PTT (Actin FS) Puncture Site ABG pH ABG pCO2 at Pt Temp ABG pO2 at Pt Temp ABG HCO3 ABG O2 Sat (Measured) ABG O2 Content ABG Base Excess Ye Test O2 Delivery Device Oxygen Flow Rate Vent Mode Vent Rate Mechanical Rate PEEP Pressure Support Vent Sodium Potassium Chloride Carbon Dioxide Anion Gap BUN Creatinine Random Glucose Calcium Phosphorus Magnesium Creatine Kinase Creatine Kinase Index CK-MB (CK-2) CK-MB (CK-2) Rel Index Cancelled Troponin I 10/07/16 10/07/16 10/07/16 05:55 05:55 05:55 WBC RBC Hgb Hct MCV MCHC RDW Plt Count MPV Neutrophils % Lymphocytes % Monocytes % Eosinophils % Basophils % PTT (Actin FS) Puncture Site ABG pH ABG pCO2 at Pt Temp ABG pO2 at Pt Temp ABG HCO3 ABG O2 Sat (Measured) ABG O2 Content ABG Base Excess Ye Test O2 Delivery Device Oxygen Flow Rate Vent Mode Vent Rate Mechanical Rate PEEP Pressure Support Vent Sodium 144 Potassium 3.1 L Chloride 93 L Carbon Dioxide 41 H Anion Gap 10 BUN 20 H D Creatinine 1.2 Random Glucose 121 H D Calcium 8.1 L Phosphorus 3.9 Magnesium 1.8 Creatine Kinase 493 H D Creatine Kinase Index 0.7 CK-MB (CK-2) 3.259 CK-MB (CK-2) Rel Index Troponin I < 0.02 10/07/16 10/07/16 10/07/16 05:55 06:55 07:20 WBC RBC Hgb Hct MCV MCHC RDW Plt Count MPV Neutrophils % Lymphocytes % Monocytes % Eosinophils % Basophils % PTT (Actin FS) 49.5 H Puncture Site Right radial ABG pH 7.42 ABG pCO2 at Pt Temp 62.6 H* D ABG pO2 at Pt Temp 69.2 L ABG HCO3 39.6 H ABG O2 Sat (Measured) 93.4 ABG O2 Content 22.2 H ABG Base Excess 11.8 H Ye Test Positive O2 Delivery Device Mechanical vent Oxygen Flow Rate 85% Vent Mode A/c Vent Rate 14 Mechanical Rate Yes PEEP 15.0 Pressure Support Vent 475ml Sodium Potassium Chloride Carbon Dioxide Anion Gap BUN Creatinine Random Glucose Calcium Phosphorus Magnesium Creatine Kinase Creatine Kinase Index CK-MB (CK-2) CK-MB (CK-2) Rel Index Cancelled Troponin I <Dayna Dixon - Last Filed: 10/08/16 16:21> Lab Results: <Moisés Landis - Last Filed: 10/09/16 19:30> Imaging - Results Chest X-ray: Other (Last AP portable reported large heart, new congestive changes with pleural fluid with atelectasis or infiltrate at bases. Chronic change in right upper lobe. Follow up recommended.) <Dayna Dixon - Last Filed: 10/08/16 16:21> Problem List - Problems (1) Congestive heart failure (CHF) Code(s): I50.9 - HEART FAILURE, UNSPECIFIED Qualifiers: Congestive heart failure type: combined Congestive heart failure chronicity: acute Qualified Code(s): I50.41 - Acute combined systolic ( congestive) and diastolic (congestive) heart failure (2) Acute respiratory failure requiring reintubation Code(s): J96.00 - ACUTE RESPIRATORY FAILURE, UNSP W HYPOXIA OR HYPERCAPNIA (3) Atrial fibrillation, new onset Code(s): I48.91 - UNSPECIFIED ATRIAL FIBRILLATION (4) Renal insufficiency Code(s): N28.9 - DISORDER OF KIDNEY AND URETER, UNSPECIFIED (5) Acute kidney injury Code(s): N17.9 - ACUTE KIDNEY FAILURE, UNSPECIFIED (6) Anasarca Code(s): R60.1 - GENERALIZED EDEMA (7) Cellulitis Code(s): L03.90 - CELLULITIS, UNSPECIFIED Qualifiers: Site of cellulitis: extremity Site of cellulitis of extremity: lower extremity Laterality: right Qualified Code(s): L03.115 - Cellulitis of right lower limb (8) Edema of scrotum Code(s): N50.89 - OTHER SPECIFIED DISORDERS OF THE MALE GENITAL ORGANS (9) Lymphedema of both lower extremities Code(s): I89.0 - LYMPHEDEMA, NOT ELSEWHERE CLASSIFIED (10) Morbid obesity Code(s): E66.01 - MORBID (SEVERE) OBESITY DUE TO EXCESS CALORIES (11) Sleep apnea Code(s): G47.30 - SLEEP APNEA, UNSPECIFIED Qualifiers: Sleep apnea type: unspecified type Qualified Code(s): G47.30 - Sleep apnea, unspecified <Dayna Dixon - Last Filed: 10/08/16 16:21> Assessment/Plan 60 yo M everyday smoker w/ HTN, GERD, Obesity, testicular swelling and shortness of breath; diagnosed with new onset Afib, B/L lower extremity edema and edema of scrotum Acute exacerbation CHF with hypoxic respiratory failure iv lasix increased to 60mg bid monitor i/o, maintain negative balance daily weight monitor vitals A fib - on digoxin 0.25mg daily - continue with heparin drip - on lopressor 2.5mg prn q4h Hypotension keep MAP >65 MONIE ( cardiorenal) -creat 1.5---> 1.2 improving - diurese with lasix 60mg bid - avoid nephrotoxic drugs - monitor creatinine Hypokalemia and hypomagnesemia replace k and mg try to keep K around 4 Dispo: ICU <Dayna Dixon - Last Filed: 10/08/16 16:21> please see my note for details and corrections <Moisés Landis - Last Filed: 10/09/16 19:30>
[2016-10-07] MEDS ORDERED: POTASSIUM CHLORIDE ORAL LIQUID 20 MEQ/15 ML NGT ONE (09:00)
[2016-10-07] MEDS: ASPIRIN 81 MG CHEWABLE TABLETS PO SCH (09:17)
[2016-10-07] MEDS: FUROSEMIDE 40 MG/4 ML INJECTABLE VIAL IVPUSH SCH ×2 (09:17→13:26)
[2016-10-07] MEDS: DIGOXIN 0.5 MG/2 ML AMPUL IVPUSH SCH (09:18)
[2016-10-07] MEDS: PANTOPRAZOLE SODIUM 100 ML IVPB SCH (09:19)
[2016-10-07] MEDS: CHLORHEXIDINE GLUCONATE 0.12% 15ML CUP MM SCH ×2 (09:19→21:59)
[2016-10-07] MEDS: MUPIROCIN 2% TOPICAL OINTMENT FOR DECOLONIZATION NS SCH ×2 (09:20→21:58)
[2016-10-07] MEDS: PROPOFOL 100 ML IVPB SCH ×3 (11:06→21:58)
--- NOTE | 2016-10-07 11:32 | PN ---
Teaching Attending Note Name of Resident: Nick Kang ATTENDING PHYSICIAN STATEMENT I saw and evaluated the patient. I reviewed the resident's note and discussed the case with the resident. I agree with the resident's findings and plan as documented. SUBJECTIVE: Pt seen and examined in the ICU. Remains intubated, arousable on sedation. Vented on volume assist control with 85% FiO2 and PEEP 15. Diuresing well with lasix. On vasopressin gtt for BP support. OBJECTIVE: Last Vital Signs Temp Pulse Resp BP Pulse Ox 99 F 108 H 15 100/66 92 L 10/07/16 10:00 10/07/16 10:00 10/07/16 10:00 10/07/16 10:00 10/07/16 09:05 Intake & Output 10/04/16 10/05/16 10/06/16 10/07/16 23:59 23:59 23:59 23:59 Intake Total 1742.0 Output Total 1500 7600 3000 Balance -1500 -5858.0 -3000 Weight 280 lb 0.005 oz 260 lb 1.6 oz 280 lb 4.8 oz Gen: intubated, arousable Heart: tachycardic, irregular Lung: bilateral rhonchi Abd: soft, nontender Ext: + edema, scrotal edema CBC, BMP 10/07/16 05:55 10/07/16 05:55 ABG Results ABG pH 7.42 (7.35-7.45) 10/07/16 07:20 ABG pCO2 at Pt Temp 62.6 mmHg (35-45) H* D 10/07/16 07:20 ABG pO2 at Pt Temp 69.2 mmHg (80-100) L 10/07/16 07:20 ABG HCO3 39.6 meq/L (22-26) H 10/07/16 07:20 ABG O2 Sat (Measured) 93.4 % (90-98.9) 10/07/16 07:20 ABG O2 Content 22.2 % vol (15-22) H 10/07/16 07:20 ABG Base Excess 11.8 meq/l (-2-2) H 10/07/16 07:20 Active Medications Albuterol/Ipratropium (Duoneb -) 1 amp NEB QIDR [facility] Last Admin: 10/07/16 05:21 Dose: 1 amp Aspirin (Asa -) 81 mg PO DAILY [facility] Last Admin: 10/07/16 09:17 Dose: 81 mg Chlorhexidine Gluconate (Hibiclens For Decolonization -) 1 applic TP HS [facility] Last Admin: 10/06/16 21:49 Dose: 1 applic Chlorhexidine Gluconate (Peridex -) 15 ml MM BID [facility] Last Admin: 10/07/16 09:19 Dose: 15 ml Digoxin (Lanoxin Injection -) 0.25 mg IVPUSH DAILY [facility] Last Admin: 10/07/16 09:18 Dose: 0.25 mg Furosemide (Lasix Injection -) 60 mg IVPUSH BID@0600,1400 [facility] Last Admin: 10/07/16 09:17 Dose: 60 mg Heparin Sodium (Porcine) (Heparin -) 1,000 unit IVPUSH PRN PRN PRN Reason: Heparin Heparin Sodium (Porcine) (Heparin -) 5,000 unit IVPUSH PRN PRN PRN Reason: Heparin Pantoprazole Sodium (Protonix 40mg Ivpb (Pre-Docked)) 100 mls @ 200 mls/hr IVPB DAILY [facility] Last Admin: 10/07/16 09:19 Dose: 200 mls/hr Fentanyl 500 mcg/ Dextrose 100 mls @ 5 mls/hr IJ TITR [facility] PRN Reason: 25 MCG/HR Last Admin: 10/06/16 21:44 Dose: 15 mls/hr Propofol (Diprivan -) 100 mls @ 3.81 mls/hr IVPB TITR [facility]; 5 MCG/KG/MIN PRN Reason: Protocol Last Admin: 10/07/16 11:06 Dose: 19 mls/hr Heparin Sodium (Porcine) 25, (000 unit/ Sodium Chloride) 500 mls @ 20 mls/hr IV TITR [facility]; 1,000 UNIT/HR PRN Reason: Protocol Last Admin: 10/06/16 21:36 Dose: 20 mls/hr Vasopressin 50 units/ Sodium (Chloride) 100 mls @ 4 mls/hr IVPB ASDIR [facility]; 2 UNITS/HR PRN Reason: Protocol Last Admin: 10/07/16 06:00 Dose: 12 mls/hr Magnesium Oxide (Mag-Ox -) 400 mg PO ONCE ONE Stop: 10/07/16 11:13 Metoprolol Tartrate (Lopressor Injection -) 2.5 mg IVPUSH Q4H PRN PRN Reason: HYPERTENSION Mupirocin (Bactroban Ointment (For Decolonization) -) 1 applic NS BID [facility] Stop: 10/10/16 21:59 Last Admin: 10/07/16 09:20 Dose: 1 applic Potassium Chloride (Potassium Chloride Oral Liquid) 40 meq PO ONCE ONE Stop: 10/07/16 13:01 ASSESSMENT AND PLAN: Acute Hypoxic and Hypercapneic Respiratory Failure Acute on ?Chronic LV Systolic Heart Failure Pulmonary HTN Volume Overload Atrial Fibrillation with RVR Acute Kidney Injury Hyperthyroidism - continue lasix - monitor urine output, creatinine - daily weights, I/Os - replete lytes - titrate vasopressin gtt to maintain MAP >65 - lopressor for rate control - continue anticoagulation - inhaled bronchodilators - titrate FiO2, PEEP to keep SpO2 >90% - not a candidate for weaning at this time due to high oxygen requirements - start enteral feeds - DVT/GI prophylaxis - continue ICU monitoring
[2016-10-07] MEDS ORDERED: MAGNESIUM OXIDE 400 MG TABLET (FP) PO ONE (12:00)
--- NOTE | 2016-10-07 12:04 | PN ---
Physical Exam: SUBJECTIVE: Patient seen and examined patient on ventilator support. sedated with fentanyl and propofol Over night started on vasopressin and amiadarone. will stop amiadarone will start him on tube feed patient requires high fio2, so not a candidate for extubation. will wean him slowly OBJECTIVE: Vital Signs Period Temp Pulse Resp BP Sys/Clements Pulse Ox Last 24 Hr 98.1 F-99.8 F 102-144 14-22 78-108/52-87 92-93 GENERAL: sedated and intubated HEAD: Normal with no signs of trauma. EARS, NOSE, THROAT: Ears normal, nares patent, oropharynx clear without exudates. NECK: supple without lymphadenopathy, JVD, or masses. LUNGS: Breath sounds equal bilateral, . No wheezes, and b/l diffuse ronchi present. . HEART: s1s2 normal, hr irregularly irregular ABDOMEN: Soft, edema present in lower abdominal wall, scrotum, erythema present in lower abdominal wall UPPER EXTREMITIES: 2+ pulses, warm, well-perfused. No cyanosis. LOWER EXTREMITIES: 2+ pulses, warm, well-perfused. No calf tenderness.peripheral edema present decreased since yesterday NEUROLOGICAL: unobtainable SKIN: Warm, dry, Laboratory Results - last 24 hr 10/06/16 10/07/16 10/07/16 16:00 02:20 02:20 WBC RBC Hgb Hct MCV MCHC RDW Plt Count MPV Neutrophils % Lymphocytes % Monocytes % Eosinophils % Basophils % PTT (Actin FS) Puncture Site ABG pH ABG pCO2 at Pt Temp ABG pO2 at Pt Temp ABG HCO3 ABG O2 Sat (Measured) ABG O2 Content ABG Base Excess Ye Test O2 Delivery Device Oxygen Flow Rate Vent Mode Vent Rate Mechanical Rate PEEP Pressure Support Vent Sodium Potassium 3.1 L Chloride Carbon Dioxide Anion Gap BUN Creatinine Random Glucose Calcium Phosphorus Magnesium Creatine Kinase Creatine Kinase Index CK-MB (CK-2) Y CK-MB (CK-2) Rel Index Troponin I 10/07/16 10/07/16 10/07/16 02:20 02:20 05:55 WBC 7.1 RBC 5.44 Hgb 17.4 H Hct 52.7 H MCV 97.0 H MCHC 33.1 RDW 16.8 H Plt Count 115 L MPV 9.3 Neutrophils % 74.2 Lymphocytes % 8.2 D Monocytes % 13.6 H Eosinophils % 2.7 D Basophils % 1.3 D PTT (Actin FS) Puncture Site ABG pH ABG pCO2 at Pt Temp ABG pO2 at Pt Temp ABG HCO3 ABG O2 Sat (Measured) ABG O2 Content ABG Base Excess Ye Test O2 Delivery Device Oxygen Flow Rate Vent Mode Vent Rate Mechanical Rate PEEP Pressure Support Vent Sodium Potassium Chloride Carbon Dioxide Anion Gap BUN Creatinine Random Glucose Calcium Phosphorus Magnesium Creatine Kinase Creatine Kinase Index CK-MB (CK-2) CK-MB (CK-2) Rel Index Cancelled Troponin I 10/07/16 10/07/16 10/07/16 05:55 05:55 05:55 WBC RBC Hgb Hct MCV MCHC RDW Plt Count MPV Neutrophils % Lymphocytes % Monocytes % Eosinophils % Basophils % PTT (Actin FS) Puncture Site ABG pH ABG pCO2 at Pt Temp ABG pO2 at Pt Temp ABG HCO3 ABG O2 Sat (Measured) ABG O2 Content ABG Base Excess Ye Test O2 Delivery Device Oxygen Flow Rate Vent Mode Vent Rate Mechanical Rate PEEP Pressure Support Vent Sodium 144 Potassium 3.1 L Chloride 93 L Carbon Dioxide 41 H Anion Gap 10 BUN 20 H D Creatinine 1.2 Random Glucose 121 H D Calcium 8.1 L Phosphorus 3.9 Magnesium 1.8 Creatine Kinase 493 H D Creatine Kinase Index 0.7 CK-MB (CK-2) 3.259 CK-MB (CK-2) Rel Index Troponin I < 0.02 10/07/16 10/07/16 10/07/16 05:55 06:55 07:20 WBC RBC Hgb Hct MCV MCHC RDW Plt Count MPV Neutrophils % Lymphocytes % Monocytes % Eosinophils % Basophils % PTT (Actin FS) 49.5 H Puncture Site Right radial ABG pH 7.42 ABG pCO2 at Pt Temp 62.6 H* D ABG pO2 at Pt Temp 69.2 L ABG HCO3 39.6 H ABG O2 Sat (Measured) 93.4 ABG O2 Content 22.2 H ABG Base Excess 11.8 H Ye Test Positive O2 Delivery Device Mechanical vent Oxygen Flow Rate 85% Vent Mode A/c Vent Rate 14 Mechanical Rate Yes PEEP 15.0 Pressure Support Vent 475ml Sodium Potassium Chloride Carbon Dioxide Anion Gap BUN Creatinine Random Glucose Calcium Phosphorus Magnesium Creatine Kinase Creatine Kinase Index CK-MB (CK-2) CK-MB (CK-2) Rel Index Cancelled Troponin I Active Medications Generic Name Dose Route Start Last Admin Trade Name Freq PRN Reason Stop Dose Admin Albuterol/Ipratropium 1 amp 10/06/16 00:00 10/07/16 11:05 Duoneb - NEB 1 amp QIDR LYNETTE Administration Aspirin 81 mg 10/06/16 10:00 10/07/16 09:17 Asa - PO 81 mg DAILY LYNETET Administration Chlorhexidine Gluconate 1 applic 10/05/16 22:00 10/06/16 21:49 Hibiclens For Decolonization - TP 1 applic HS LYNETTE Administration Chlorhexidine Gluconate 15 ml 10/06/16 10:00 10/07/16 09:19 Peridex - MM 15 ml BID LYNETTE Administration Digoxin 0.25 mg 10/07/16 10:00 10/07/16 09:18 Lanoxin Injection - IVPUSH 0.25 mg DAILY LYNETTE Administration Furosemide 60 mg 10/07/16 09:00 10/07/16 09:17 Lasix Injection - IVPUSH 60 mg BID@0600,1400 LYNETTE Administration Heparin Sodium (Porcine) 1,000 unit 10/06/16 21:30 Heparin - IVPUSH PRN PRN Heparin Heparin Sodium (Porcine) 5,000 unit 10/06/16 21:30 Heparin - IVPUSH PRN PRN Heparin Pantoprazole Sodium 100 mls @ 200 mls/hr 10/06/16 10:00 10/07/16 09:19 Protonix 40mg Ivpb (Pre-Docked) IVPB 200 mls/hr DAILY LYNETTE Administration Fentanyl 500 mcg/ Dextrose 100 mls @ 5 mls/hr 10/05/16 20:45 10/06/16 21:44 IJ 15 mls/hr TITR LYNETTE Administration 25 MCG/HR Propofol 100 mls @ 3.81 mls/hr 10/05/16 21:45 10/07/16 11:06 Diprivan - IVPB 19 mls/hr TITR LYNETTE Administration Protocol 5 MCG/KG/MIN Heparin Sodium (Porcine) 25, 500 mls @ 20 mls/hr 10/06/16 21:30 10/06/16 21:36 000 unit/ Sodium Chloride IV 20 mls/hr TITR LYNETTE Administration Protocol 1,000 UNIT/HR Vasopressin 50 units/ Sodium 100 mls @ 4 mls/hr 10/07/16 02:10 10/07/16 06:00 Chloride IVPB 12 mls/hr ASDIR LYNETTE Administration Protocol 2 UNITS/HR Magnesium Oxide 400 mg 10/07/16 12:00 Mag-Ox - PO 10/07/16 12:01 ONCE ONE Metoprolol Tartrate 2.5 mg 10/07/16 07:56 Lopressor Injection - IVPUSH Q4H PRN HYPERTENSION Mupirocin 1 applic 10/05/16 22:00 10/07/16 09:20 Bactroban Ointment (For Decolonization) - NS 10/10/16 21:59 1 applic BID LYNETTE Administration Potassium Chloride 40 meq 10/07/16 13:00 Potassium Chloride Oral Liquid PO 10/07/16 13:01 ONCE ONE ASSESSMENT/PLAN: This is a 60 yo M every day smoker with PMH of HTN, GERD, and obesity who presents due to testicular swelling, b/l lower leg swelling, swelling in lower part of anterior abdominal wall and worsening SOB. Acute exacerbation CHF with hypoxic respiratory failure iv lasix increased to 60mg bid monitor i/o, maintain negative balance 1742/7600 daily weight monitor vitals follow echo : LV systolic function mild to moderately reduced on ventilator support, keep spo 2 over 90 ( fio2 70, peep 15, tv 475, cxr improved since yesterday but still congested trop i x 2 negative cardiology consult appreciated. monitor cvp A fib - on digoxin 0.25mg daily - continue with heparin drip and eventually to be transitioned to NOAC's - stop amiadrone - on lopressor 2.5mg prn q4h Hypotension on vasopresin 3 taper vasopressin keep MAP >65 MONIE ( cardiorenal) -creat 1.5---> 1.2 improving (baseline 0.9 in apr) - nephrology on case - diurese with lasix 60mg bid - avoid nephrotoxic drugs - monitor creatinine Hypokalemia and hypomagnesemia replace k and mg will try to keep K around 4 FEN -diurese, avoid IV fluid -replete lytes - start on tube feed PPX: PPI, heparin drip Dispo: ICU Visit type - Emergency Visit Emergency Visit: Yes ED Registration Date: 10/05/16 Care time: The patient presented to the Emergency Department on the above date and was hospitalized for further evaluation of their emergent condition. - New Patient This patient is new to me today: No - Critical Care Critical Care patient: Yes Total Critical Care Time (in minutes): 60 Critical Care Statement: The care of this patient involved high complexity decision making to prevent further life threatening deterioration of the patient 's condition and/or to evalute & treat vital organ system(s) failure or risk of failure.
[2016-10-07 12:55] LABS: CALCIUM 8.2 mg/dL (8.5-10.1); CREATININE 1.2 mg/dL (0.7-1.3); PHOSPHOROUS 3.4 mg/dL (2.5-4.9)
--- NOTE | 2016-10-07 12:55 | PN ---
Addendum entered and electronically signed by Hillary Reyes RES 10/07/16 13: 09: Renal bladder US appreciated , unremarkable Original Note: Physical Exam: SUBJECTIVE: Patient seen and examined Patient resting in bed, intubated, sedated, on vasopressin. awake and interactive, signals that his mouth is dry. No acute events. urine output 6900 after 80 mg iv lasix yesterday, achieved negative fluid balance of -5.8L. BP 104 /70 map 94. CVP 13, in A fib rate 115, O2 sat 93% Vent settin 14/475/85/50/15/ 5. On vasopressin @3, Fentanyl @50, Propofol @ 15. OBJECTIVE: Vital Signs Period Temp Pulse Resp BP Sys/Clements Pulse Ox Last 24 Hr 98.2 F-99.8 F 102-144 14-22 78-108/52-87 92 GENERAL: awake, interactive, pink, overall slightly less edematous HEAD: Normal with no signs of trauma, obese EYES: pinpoint EARS, NOSE, THROAT: Moist mucous membranes. NECK: supple + JVD LUNGS: diffuse ronchi HEART: tachy, irregular ABDOMEN: distended, 1+ edema, moderately erythematous, reduced bowel sounds MUSCULOSKELETAL: No bony deformities UPPER EXTREMITIES: 2+ pulses, mild peripheral edema. LOWER EXTREMITIES: 1+ pulses, 3+ pitting edema, chronic stasis dermatitis b/l NEUROLOGICAL: grossly symmetrical face PSYCHIATRIC: unable to assess SKIN: Warm, dry Laboratory Results - last 24 hr 10/06/16 10/07/16 10/07/16 16:00 02:20 02:20 WBC RBC Hgb Hct MCV MCHC RDW Plt Count MPV Neutrophils % Lymphocytes % Monocytes % Eosinophils % Basophils % PTT (Actin FS) Puncture Site ABG pH ABG pCO2 at Pt Temp ABG pO2 at Pt Temp ABG HCO3 ABG O2 Sat (Measured) ABG O2 Content ABG Base Excess Ye Test O2 Delivery Device Oxygen Flow Rate Vent Mode Vent Rate Mechanical Rate PEEP Pressure Support Vent Sodium Potassium 3.1 L Chloride Carbon Dioxide Anion Gap BUN Creatinine Random Glucose Calcium Phosphorus Magnesium Creatine Kinase Creatine Kinase Index CK-MB (CK-2) Y CK-MB (CK-2) Rel Index Troponin I 10/07/16 10/07/16 10/07/16 02:20 02:20 05:55 WBC 7.1 RBC 5.44 Hgb 17.4 H Hct 52.7 H MCV 97.0 H MCHC 33.1 RDW 16.8 H Plt Count 115 L MPV 9.3 Neutrophils % 74.2 Lymphocytes % 8.2 D Monocytes % 13.6 H Eosinophils % 2.7 D Basophils % 1.3 D PTT (Actin FS) Puncture Site ABG pH ABG pCO2 at Pt Temp ABG pO2 at Pt Temp ABG HCO3 ABG O2 Sat (Measured) ABG O2 Content ABG Base Excess Ye Test O2 Delivery Device Oxygen Flow Rate Vent Mode Vent Rate Mechanical Rate PEEP Pressure Support Vent Sodium Potassium Chloride Carbon Dioxide Anion Gap BUN Creatinine Random Glucose Calcium Phosphorus Magnesium Creatine Kinase Creatine Kinase Index CK-MB (CK-2) CK-MB (CK-2) Rel Index Cancelled Troponin I 10/07/16 10/07/16 10/07/16 05:55 05:55 05:55 WBC RBC Hgb Hct MCV MCHC RDW Plt Count MPV Neutrophils % Lymphocytes % Monocytes % Eosinophils % Basophils % PTT (Actin FS) Puncture Site ABG pH ABG pCO2 at Pt Temp ABG pO2 at Pt Temp ABG HCO3 ABG O2 Sat (Measured) ABG O2 Content ABG Base Excess Ye Test O2 Delivery Device Oxygen Flow Rate Vent Mode Vent Rate Mechanical Rate PEEP Pressure Support Vent Sodium 144 Potassium 3.1 L Chloride 93 L Carbon Dioxide 41 H Anion Gap 10 BUN 20 H D Creatinine 1.2 Random Glucose 121 H D Calcium 8.1 L Phosphorus 3.9 Magnesium 1.8 Creatine Kinase 493 H D Creatine Kinase Index 0.7 CK-MB (CK-2) 3.259 CK-MB (CK-2) Rel Index Troponin I < 0.02 10/07/16 10/07/16 10/07/16 05:55 06:55 07:20 WBC RBC Hgb Hct MCV MCHC RDW Plt Count MPV Neutrophils % Lymphocytes % Monocytes % Eosinophils % Basophils % PTT (Actin FS) 49.5 H Puncture Site Right radial ABG pH 7.42 ABG pCO2 at Pt Temp 62.6 H* D ABG pO2 at Pt Temp 69.2 L ABG HCO3 39.6 H ABG O2 Sat (Measured) 93.4 ABG O2 Content 22.2 H ABG Base Excess 11.8 H Ye Test Positive O2 Delivery Device Mechanical vent Oxygen Flow Rate 85% Vent Mode A/c Vent Rate 14 Mechanical Rate Yes PEEP 15.0 Pressure Support Vent 475ml Sodium Potassium Chloride Carbon Dioxide Anion Gap BUN Creatinine Random Glucose Calcium Phosphorus Magnesium Creatine Kinase Creatine Kinase Index CK-MB (CK-2) CK-MB (CK-2) Rel Index Cancelled Troponin I Active Medications Generic Name Dose Route Start Last Admin Trade Name Freq PRN Reason Stop Dose Admin Albuterol/Ipratropium 1 amp 10/06/16 00:00 10/07/16 11:05 Duoneb - NEB 1 amp QIDR LYNETTE Administration Aspirin 81 mg 10/06/16 10:00 10/07/16 09:17 Asa - PO 81 mg DAILY LYNETTE Administration Chlorhexidine Gluconate 1 applic 10/05/16 22:00 10/06/16 21:49 Hibiclens For Decolonization - TP 1 applic HS LYNETTE Administration Chlorhexidine Gluconate 15 ml 10/06/16 10:00 10/07/16 09:19 Peridex - MM 15 ml BID LYNETTE Administration Digoxin 0.25 mg 10/07/16 10:00 10/07/16 09:18 Lanoxin Injection - IVPUSH 0.25 mg DAILY LYNETTE Administration Furosemide 60 mg 10/07/16 09:00 10/07/16 09:17 Lasix Injection - IVPUSH 60 mg BID@0600,1400 LYNETTE Administration Heparin Sodium (Porcine) 1,000 unit 10/06/16 21:30 Heparin - IVPUSH PRN PRN Heparin Heparin Sodium (Porcine) 5,000 unit 10/06/16 21:30 Heparin - IVPUSH PRN PRN Heparin Pantoprazole Sodium 100 mls @ 200 mls/hr 10/06/16 10:00 10/07/16 09:19 Protonix 40mg Ivpb (Pre-Docked) IVPB 200 mls/hr DAILY LYNETTE Administration Fentanyl 500 mcg/ Dextrose 100 mls @ 5 mls/hr 10/05/16 20:45 10/06/16 21:44 IJ 15 mls/hr TITR LYNETTE Administration 25 MCG/HR Propofol 100 mls @ 3.81 mls/hr 10/05/16 21:45 10/07/16 11:06 Diprivan - IVPB 19 mls/hr TITR LYNETTE Administration Protocol 5 MCG/KG/MIN Heparin Sodium (Porcine) 25, 500 mls @ 20 mls/hr 10/06/16 21:30 10/06/16 21:36 000 unit/ Sodium Chloride IV 20 mls/hr TITR LYNETTE Administration Protocol 1,000 UNIT/HR Vasopressin 50 units/ Sodium 100 mls @ 4 mls/hr 10/07/16 02:10 10/07/16 06:00 Chloride IVPB 12 mls/hr ASDIR LYNETTE Administration Protocol 2 UNITS/HR Metoprolol Tartrate 2.5 mg 10/07/16 07:56 Lopressor Injection - IVPUSH Q4H PRN HYPERTENSION Mupirocin 1 applic 10/05/16 22:00 10/07/16 09:20 Bactroban Ointment (For Decolonization) - NS 10/10/16 21:59 1 applic BID LYNETTE Administration Potassium Chloride 40 meq 10/07/16 13:00 10/07/16 12:43 Potassium Chloride Oral Liquid PO 10/07/16 13:01 40 meq ONCE ONE Administration ASSESSMENT/PLAN: This is a 60 yo M every day smoker with PMH of HTN, GERD, and obesity who presents due to testicular swelling x 1 W and worsening SOB. Acute decompensated CHF -NYHA class III-IV -severe fluid overload, anasarca -s/p 80mg lasix IV yesterday -negative fluid balance of -5.8L -duplex LE negative -TTE mild/mod reduced EF, mild pulm HTN, RVP 30-40, global mild/mod LV hypokinesis worse than 05/06/16 -CXR AM same -cardio consult appreciated -s/p digoxin 0.5 overnight, now to give 0.25 -metoptolol tartare 2.4 q 4h -lasix 60 BID -trop negative -strict I and O -daily weight (please get accurate weight) -am xray -abg appreciated, co2 retention, hypoxia -tele monitoring a fib -icu monitoring -increase propofol Hypotension -wean off vasopressin A fib -hep eventually to NOAC Hyperthyroid -tsh 0.29 -ft4 1.77 -fT3 p/d -baseline vs effect of amoidarone MONIE -creat 1.2 trending down(baseline 0.9 in oct) -cardiorenal -renal consult appreciated -diurese, suggests lasix 60 bid Acute hypoxic respiratory failure -intubated -keep FIO2 >88 -daily weaning FEN -diurese -replete lytes -npo PPX: PPI, Chantelle Dispo: ICU Problem List - Problems (1) Acute respiratory failure requiring reintubation Code(s): J96.00 - ACUTE RESPIRATORY FAILURE, UNSP W HYPOXIA OR HYPERCAPNIA (2) Atrial fibrillation, new onset Code(s): I48.91 - UNSPECIFIED ATRIAL FIBRILLATION (3) Congestive heart failure (CHF) Code(s): I50.9 - HEART FAILURE, UNSPECIFIED Qualifiers: Congestive heart failure type: combined Congestive heart failure chronicity: acute Qualified Code(s): I50.41 - Acute combined systolic ( congestive) and diastolic (congestive) heart failure (4) Edema of scrotum Code(s): N50.89 - OTHER SPECIFIED DISORDERS OF THE MALE GENITAL ORGANS (5) Lymphedema of both lower extremities Code(s): I89.0 - LYMPHEDEMA, NOT ELSEWHERE CLASSIFIED (6) Morbid obesity Code(s): E66.01 - MORBID (SEVERE) OBESITY DUE TO EXCESS CALORIES (7) Renal insufficiency Code(s): N28.9 - DISORDER OF KIDNEY AND URETER, UNSPECIFIED (8) Sleep apnea Code(s): G47.30 - SLEEP APNEA, UNSPECIFIED Qualifiers: Sleep apnea type: unspecified type Qualified Code(s): G47.30 - Sleep apnea, unspecified (9) Acute kidney injury Code(s): N17.9 - ACUTE KIDNEY FAILURE, UNSPECIFIED (10) Anasarca Code(s): R60.1 - GENERALIZED EDEMA Visit type - Emergency Visit Emergency Visit: Yes ED Registration Date: 10/05/16 Care time: The patient presented to the Emergency Department on the above date and was hospitalized for further evaluation of their emergent condition. - New Patient This patient is new to me today: No - Critical Care Critical Care patient: No - Discharge Referral Referred to [facility] Med [facility] No
[2016-10-07] MEDS: FENTANYL INJECTION 500 MCG in DEXTROSE 5%-WATER - 90 ML IJ SCH ×2 (13:26→21:58)
--- NOTE | 2016-10-07 14:08 | PN ---
Teaching Attending Note Name of Resident: Hillary Reyes ATTENDING PHYSICIAN STATEMENT I saw and evaluated the patient. I reviewed the resident's note and discussed the case with the resident. I agree with the resident's findings and plan as documented. Patient opens his eyes and tries to communicate , in ICu still intubated and IV sedation, and pressors Vital Signs Temperature 99 F 10/07/16 10:00 Pulse Rate 108 H 10/07/16 10:00 Respiratory Rate 20 10/07/16 13:56 Blood Pressure 100/66 10/07/16 10:00 O2 Sat by Pulse Oximetry (%) 92 L 10/07/16 09:05 CBCD WBC 7.1 K/mm3 (4.0-10.0) 10/07/16 05:55 RBC 5.44 M/mm3 (4.00-5.60) 10/07/16 05:55 Hgb 17.4 GM/dL (11.7-16.9) H 10/07/16 05:55 Hct 52.7 % (35.4-49) H 10/07/16 05:55 MCV 97.0 fl (80-96) H 10/07/16 05:55 MCHC 33.1 g/dl (32.0-35.9) 10/07/16 05:55 RDW 16.8 % (11.9-15.9) H 10/07/16 05:55 Plt Count 115 K/MM3 (134-434) L 10/07/16 05:55 MPV 9.3 fl (7.5-11.1) 10/07/16 05:55 CMP Sodium 143 mmol/L (136-145) 10/07/16 12:10 Potassium 3.3 mmol/L (3.5-5.1) L 10/07/16 12:10 Chloride 92 mmol/L (98-107) L 10/07/16 12:10 Carbon Dioxide 43 mmol/L (21-32) H 10/07/16 12:10 Anion Gap 8 (8-16) 10/07/16 12:10 BUN 20 mg/dL (7-18) H 10/07/16 12:10 Creatinine 1.2 mg/dL (0.7-1.3) 10/07/16 12:10 Creat Clearance w eGFR 47.42 (>60) 10/06/16 05:20 Random Glucose 122 mg/dL (74-106) H 10/07/16 12:10 Calcium 8.2 mg/dL (8.5-10.1) L 10/07/16 12:10 Total Bilirubin 1.9 mg/dL (0.2-1.0) H 10/06/16 05:20 AST 23 U/L (15-37) D 10/06/16 05:20 ALT 22 U/L (12-78) 10/06/16 05:20 Alkaline Phosphatase 47 U/L (45-117) 10/06/16 05:20 Total Protein 5.5 g/dl (6.4-8.2) L 10/06/16 05:20 Albumin 2.9 g/dl (3.4-5.0) L 10/06/16 05:20 CARDIAC ENZYMES Creatine Kinase 493 IU/L (39-308) H D 10/07/16 05:55 Troponin I < 0.02 ng/ml (0.00-0.05) 10/07/16 05:55 Current Medications Generic Name Dose Route Start Last Admin Trade Name Freq PRN Reason Stop Dose Admin Albuterol/Ipratropium 1 amp 10/06/16 00:00 10/07/16 11:05 Duoneb - NEB 1 amp QIDR LYNETTE Administration Aspirin 81 mg 10/06/16 10:00 10/07/16 09:17 Asa - PO 81 mg DAILY LYNETTE Administration Chlorhexidine Gluconate 1 applic 10/05/16 22:00 10/06/16 21:49 Hibiclens For Decolonization - TP 1 applic HS LYNETTE Administration Chlorhexidine Gluconate 15 ml 10/06/16 10:00 10/07/16 09:19 Peridex - MM 15 ml BID LYNETTE Administration Digoxin 0.25 mg 10/07/16 10:00 10/07/16 09:18 Lanoxin Injection - IVPUSH 0.25 mg DAILY LYNETTE Administration Furosemide 60 mg 10/07/16 09:00 10/07/16 13:26 Lasix Injection - IVPUSH 60 mg BID@0600,1400 LYNETTE Administration Heparin Sodium (Porcine) 1,000 unit 10/06/16 21:30 Heparin - IVPUSH PRN PRN Heparin Heparin Sodium (Porcine) 5,000 unit 10/06/16 21:30 Heparin - IVPUSH PRN PRN Heparin Pantoprazole Sodium 100 mls @ 200 mls/hr 10/06/16 10:00 10/07/16 09:19 Protonix 40mg Ivpb (Pre-Docked) IVPB 200 mls/hr DAILY LYNETTE Administration Fentanyl 500 mcg/ Dextrose 100 mls @ 5 mls/hr 10/05/16 20:45 10/07/16 13:26 IJ 20 mls/hr TITR LYNETTE Administration 25 MCG/HR Propofol 100 mls @ 3.81 mls/hr 10/05/16 21:45 10/07/16 11:06 Diprivan - IVPB 19 mls/hr TITR LYNETTE Administration Protocol 5 MCG/KG/MIN Heparin Sodium (Porcine) 25, 500 mls @ 20 mls/hr 10/06/16 21:30 10/06/16 21:36 000 unit/ Sodium Chloride IV 20 mls/hr TITR LYNETTE Administration Protocol 1,000 UNIT/HR Vasopressin 50 units/ Sodium 100 mls @ 4 mls/hr 10/07/16 02:10 10/07/16 06:00 Chloride IVPB 12 mls/hr ASDIR LYNETTE Administration Protocol 2 UNITS/HR Metoprolol Tartrate 2.5 mg 10/07/16 07:56 Lopressor Injection - IVPUSH Q4H PRN HYPERTENSION Mupirocin 1 applic 10/05/16 22:00 10/07/16 09:20 Bactroban Ointment (For Decolonization) - NS 10/10/16 21:59 1 applic BID LYNETTE Administration Potassium Chloride 40 meq 10/08/16 10:00 Potassium Chloride Oral Liquid PO DAILY [facility] Home Medications Medication Instructions Recorded Bystolic 10 mg PO DAILY 05/01/16 Hydrochlorothiazide 12.5 mg PO DAILY 05/01/16 Pantoprazole Sodium [Protonix -] 1 tab PO DAILY 05/19/16 Amlodipine/Valsartan [Exforge 1 tab PO DAILY 10/05/16 5-160 mg Tablet] Ascorbate Calcium [Vitamin C] 1,000 mg PO DAILY 10/05/16 Aspirin [ASA -] 81 mg PO DAILY 10/05/16 Oakwood-3/Dha/Epa/Fish Oil [[place]wood 3 350 mg PO DAILY 10/05/16 500 Softgel] Sulfamethoxazole/Trimethoprim 1 each PO BID 10/05/16 [Bactrim Ds Tablet] ASSESSMENT AND PLAN: This is a 60 yo M every day smoker with PMH of HTN, GERD, and obesity who presents due to testicular swelling x 1 W and worsening SOB. #Acute respiratory failure s/p intubation ICU/Pulmonary consult , and cardio consult further settings per iCU team on Fentanyl drip, propofol continue ; on IV lasix, Vasopressin IV. # Acute exacerbation of CHF , echo mild to moderate global hypokinesis of the left ventricle , ce negative, cardio consult , Lasix IV once BP is stable , cqardiogy consult appreciated ;on Lasix IV, Noerpi drip, heparin drip. # Afib with RVRs/p Amiodoran drip, on digoxin IV now by [employer] [facility] [employer] , heparin drip #Acute Hypotension on vasopressin IV DRIP continues once BP stabilezes will titrate it off , on Lasix iv #Acute Renal failure nephro on the case Renal US ordered follow the result # Anasarca on IV lasix DVT pX: Heparin IV
--- NOTE | 2016-10-07 14:10 | PN ---
Progress Note, Physician History of Present Illness: Pt seen and examined at bedside. He remains in the ICU. Pt remains on the vent. He is intubated and sedated. - Current Medication List Current Medications: Active Medications Albuterol/Ipratropium (Duoneb -) 1 amp NEB QIDR [facility] Last Admin: 10/07/16 11:05 Dose: 1 amp Aspirin (Asa -) 81 mg PO DAILY [facility] Last Admin: 10/07/16 09:17 Dose: 81 mg Chlorhexidine Gluconate (Hibiclens For Decolonization -) 1 applic TP HS [facility] Last Admin: 10/06/16 21:49 Dose: 1 applic Chlorhexidine Gluconate (Peridex -) 15 ml MM BID [facility] Last Admin: 10/07/16 09:19 Dose: 15 ml Digoxin (Lanoxin Injection -) 0.25 mg IVPUSH DAILY [facility] Last Admin: 10/07/16 09:18 Dose: 0.25 mg Furosemide (Lasix Injection -) 60 mg IVPUSH BID@0600,1400 [facility] Last Admin: 10/07/16 13:26 Dose: 60 mg Heparin Sodium (Porcine) (Heparin -) 1,000 unit IVPUSH PRN PRN PRN Reason: Heparin Heparin Sodium (Porcine) (Heparin -) 5,000 unit IVPUSH PRN PRN PRN Reason: Heparin Pantoprazole Sodium (Protonix 40mg Ivpb (Pre-Docked)) 100 mls @ 200 mls/hr IVPB DAILY [facility] Last Admin: 10/07/16 09:19 Dose: 200 mls/hr Fentanyl 500 mcg/ Dextrose 100 mls @ 5 mls/hr IJ TITR LYNETTE PRN Reason: 25 MCG/HR Last Admin: 10/07/16 13:26 Dose: 20 mls/hr Propofol (Diprivan -) 100 mls @ 3.81 mls/hr IVPB TITR LYNETTE; 5 MCG/KG/MIN PRN Reason: Protocol Last Admin: 10/07/16 11:06 Dose: 19 mls/hr Heparin Sodium (Porcine) 25, (000 unit/ Sodium Chloride) 500 mls @ 20 mls/hr IV TITR LYNETTE; 1,000 UNIT/HR PRN Reason: Protocol Last Admin: 10/06/16 21:36 Dose: 20 mls/hr Vasopressin 50 units/ Sodium (Chloride) 100 mls @ 4 mls/hr IVPB ASDIR LYNETTE; 2 UNITS/HR PRN Reason: Protocol Last Admin: 10/07/16 06:00 Dose: 12 mls/hr Metoprolol Tartrate (Lopressor Injection -) 2.5 mg IVPUSH Q4H PRN PRN Reason: HYPERTENSION Mupirocin (Bactroban Ointment (For Decolonization) -) 1 applic NS BID LYNETTE Stop: 10/10/16 21:59 Last Admin: 10/07/16 09:20 Dose: 1 applic Potassium Chloride (Potassium Chloride Oral Liquid) 40 meq PO DAILY [facility] - Objective Vital Signs: Vital Signs Temperature 99 F 10/07/16 10:00 Pulse Rate 108 H 10/07/16 10:00 Respiratory Rate 20 10/07/16 13:56 Blood Pressure 100/66 10/07/16 10:00 O2 Sat by Pulse Oximetry (%) 92 L 10/07/16 09:05 Constitutional: Yes: Calm Eyes: Yes: Conjunctiva Clear HENT: Yes: Atraumatic Cardiovascular: Yes: S1, S2 Respiratory: Yes: Mechanically Ventilated Gastrointestinal: Yes: Soft, Abdomen, Obese Genitourinary: Yes: Hilario Present Musculoskeletal: Yes: Muscle Weakness Edema: Yes (improving from yesterday) Edema: LLE: 2+, RLE: 2+ Integumentary: Yes: Venous Stasis Changes Neurological: Yes: Other (sedated) Labs: CBC, BMP 10/07/16 05:55 10/07/16 12:10 INR, PTT INR 1.27 (0.82-1.09) H 10/05/16 19:00 - ....Imaging Chest X-ray: Report Reviewed (slight improvement) Problem List - Problems (1) Acute kidney injury Code(s): N17.9 - ACUTE KIDNEY FAILURE, UNSPECIFIED (2) Anasarca Code(s): R60.1 - GENERALIZED EDEMA (3) Congestive heart failure (CHF) Code(s): I50.9 - HEART FAILURE, UNSPECIFIED Qualifiers: Qualified Code(s): I50.41 - Acute combined systolic (congestive) and diastolic (congestive) heart failure (4) Morbid obesity Code(s): E66.01 - MORBID (SEVERE) OBESITY DUE TO EXCESS CALORIES (5) Renal insufficiency Code(s): N28.9 - DISORDER OF KIDNEY AND URETER, UNSPECIFIED Assessment/Plan Current Medications Generic Name Dose Route Start Last Admin Trade Name Freq PRN Reason Stop Dose Admin Albuterol/Ipratropium 1 amp 10/06/16 00:00 10/07/16 11:05 Duoneb - NEB 1 amp QIDR LYNETTE Administration Aspirin 81 mg 10/06/16 10:00 10/07/16 09:17 Asa - PO 81 mg DAILY LYNETTE Administration Chlorhexidine Gluconate 1 applic 10/05/16 22:00 10/06/16 21:49 Hibiclens For Decolonization - TP 1 applic HS LYNETTE Administration Chlorhexidine Gluconate 15 ml 10/06/16 10:00 10/07/16 09:19 Peridex - MM 15 ml BID LYNETTE Administration Digoxin 0.25 mg 10/07/16 10:00 10/07/16 09:18 Lanoxin Injection - IVPUSH 0.25 mg DAILY LYNETTE Administration Furosemide 60 mg 10/07/16 09:00 10/07/16 13:26 Lasix Injection - IVPUSH 60 mg BID@0600,1400 LYNETTE Administration Heparin Sodium (Porcine) 1,000 unit 10/06/16 21:30 Heparin - IVPUSH PRN PRN Heparin Heparin Sodium (Porcine) 5,000 unit 10/06/16 21:30 Heparin - IVPUSH PRN PRN Heparin Pantoprazole Sodium 100 mls @ 200 mls/hr 10/06/16 10:00 10/07/16 09:19 Protonix 40mg Ivpb (Pre-Docked) IVPB 200 mls/hr DAILY LYNETTE Administration Fentanyl 500 mcg/ Dextrose 100 mls @ 5 mls/hr 10/05/16 20:45 10/07/16 13:26 IJ 20 mls/hr TITR LYNETTE Administration 25 MCG/HR Propofol 100 mls @ 3.81 mls/hr 10/05/16 21:45 10/07/16 11:06 Diprivan - IVPB 19 mls/hr TITR LYNETTE Administration Protocol 5 MCG/KG/MIN Heparin Sodium (Porcine) 25, 500 mls @ 20 mls/hr 10/06/16 21:30 10/06/16 21:36 000 unit/ Sodium Chloride IV 20 mls/hr TITR LYNETTE Administration Protocol 1,000 UNIT/HR Vasopressin 50 units/ Sodium 100 mls @ 4 mls/hr 10/07/16 02:10 10/07/16 06:00 Chloride IVPB 12 mls/hr ASDIR LYNETTE Administration Protocol 2 UNITS/HR Metoprolol Tartrate 2.5 mg 10/07/16 07:56 Lopressor Injection - IVPUSH Q4H PRN HYPERTENSION Mupirocin 1 applic 10/05/16 22:00 10/07/16 09:20 Bactroban Ointment (For Decolonization) - NS 10/10/16 21:59 1 applic BID LYNETTE Administration Potassium Chloride 40 meq 10/08/16 10:00 Potassium Chloride Oral Liquid PO DAILY LYNETTE Impression 1. Azotemia 2. CHF acute 3. acute resp failure requiring intubation 4. new onset atrial fibrillation 5. hx of htn 6. obesity 7. chronic smoker 8. hypokalemia Plan - cont with lasix - replace potassium - renal function is stable - monitor lytes daily - repeat cxr in am - discussed with ICU team - case discussed with pts mother who is at the bedside - cont vent support - keep pt in negative balance, monitor urine output - will follow Dr Delacruz
[2016-10-07] MEDS ORDERED: VASOPRESSIN 20 UNITS/ML VIAL IV ONE ×2 (18:03→19:31)
[2016-10-07] MEDS ORDERED: PROPOFOL 100 ML ONE (19:30)
[2016-10-07] MEDS ORDERED: HEPARIN INFUSION - 500 ML IVPB ONE (19:30)
[2016-10-07] MEDS: HEPARIN - 25,000 UNIT in SODIUM CHLORIDE 495 ML IV SCH (21:58)
[2016-10-07] MEDS: CHLORHEXIDINE GLUCONATE 4% CLEANSER FOR DECOLONIZATION TP SCH (21:59)
[2016-10-08] MEDS: FUROSEMIDE 40 MG/4 ML INJECTABLE VIAL IVPUSH SCH ×2 (05:50→13:16)
[2016-10-08] MEDS: VASOPRESSIN 50 UNITS in SODIUM CHLORIDE 97.5 ML IVPB SCH (05:51)
[2016-10-08] MEDS: ALBUTEROL SO4 2.5/IPRATROPIUM 0.5 INH SOL 3 ML VIAL.NEB. NEB SCH ×5 (05:57→23:49)
[2016-10-08 06:11] LABS: BASOPHIL 0.9 % (0-2.0); EOSINOPHIL 2.7 % (0-4.5); MCH 32.2 pg (25.7-33.7); MCHC 33.1 g/dl (32.0-35.9); MEAN CELL VOLUME 97.2 fl (80-96); MEAN PLT VOLUME 9.6 fl (7.5-11.1); NEUTROPHILS 73.1 % (42.8-82.8); PLATELET COUNT 97 K/MM3 (134-434); RDW 16.4 % (11.9-15.9); WHITE BLOOD COUNT 6.3 K/mm3 (4.0-10.0)
[2016-10-08 06:39] LABS: CALCIUM 7.7 mg/dL (8.5-10.1); CREATININE 1.2 mg/dL (0.7-1.3); MAGNESIUM 1.7 mg/dL (1.8-2.4); PHOSPHOROUS 3.3 mg/dL (2.5-4.9)
[2016-10-08 06:52] LABS: DIGOXIN LEVEL 0.622 ng/ml (0.8-2.0)
[2016-10-08] MEDS: HEPARIN - 25,000 UNIT in SODIUM CHLORIDE 495 ML IV SCH ×2 (06:56→21:30)
[2016-10-08] MEDS: POTASSIUM CHLORIDE ORAL LIQUID 20 MEQ/15 ML PO SCH ×2 (07:11→09:33)
[2016-10-08] MEDS ORDERED: MAGNESIUM SULF 50% (8.12 MEQ/2 ML-1 GM VIAL) IVPB ONE (07:20)
[2016-10-08 07:45] LABS: ALLENS TEST POSITIVE; ART PUNCT SITE RIGHT RADIAL; ARTERIAL BLD GAS O2 SATURATION 94.3 % (90-98.9); ARTERIAL BLOOD GAS BASE EXCESS 15.9 meq/l (-2-2); ARTERIAL BLOOD GAS HCO3 45.2 meq/L (22-26); ARTERIAL BLOOD GAS PO2 71.5 mmHg (80-100); ARTERIAL BLOOD GAS pH 7.43 (7.35-7.45); MECH. VENT. YES; PT. ON O2? YES; TYPE OF O2 VENT; VENT RATE 14; VT/PRESS 475
[2016-10-08] MEDS ORDERED: POTASSIUM CHLORIDE ORAL LIQUID 20 MEQ/15 ML PO ONE ×2 (08:45→14:00)
--- NOTE | 2016-10-08 08:57 | CONSULT ---
Consult Consult Specialty:: Endocrinology Referred by:: Dr Kang Reason for Consultation:: Abnormal TFT - History of Present Illness Chief Complaint: SOB History of Present Illness: This is a 60 year old male with history of HTN, GERD, and obesity and cigarette smoking who presented to the ED on 10/05/2016 with complaints of testicular swelling for a week and a half and increased shortness of breath. He reported seeing his Urologist for the testicular swelling and getting an ultrasound performed and being prescribed antibiotics. He reported that since starting the antibiotics, the swelling has gotten worse which has also been effecting his lower extremities. He also complained of worsening of SOB over the past few days prior to admission so that he became SOB with a few steps. Pt was found to be in A FIB and with CHF. Pt became unresponsive in the ED and was intubated and transferred to ICU. Pt referred for management of abnormal TFT. - History Source History Provided By: Medical Record Limitations to Obtaining History: Intubated - Alcohol/Substance Use Hx Alcohol Use: No - Smoking History Smoking history: Current every day smoker Have you smoked in the past 12 months: Yes Aproximately how many cigarettes per day: 20 Home Medications - Allergies Allergies/Adverse Reactions: Allergies Allergy/AdvReac Type Severity Reaction Status Date / Time No Known Allergies Allergy Verified 10/05/16 10:30 - Home Medications Home Medications: Ambulatory Orders Bystolic 10 mg PO DAILY 05/01/16 Hydrochlorothiazide 12.5 mg PO DAILY 05/01/16 Pantoprazole Sodium [Protonix -] 1 tab PO DAILY 05/19/16 Amlodipine/Valsartan [Exforge 5-160 mg Tablet] 1 tab PO DAILY 10/05/16 Ascorbate Calcium [Vitamin C] 1,000 mg PO DAILY 10/05/16 Aspirin [ASA -] 81 mg PO DAILY 10/05/16 Fairburn-3/Dha/Epa/Fish Oil [Fairburn 3 500 Softgel] 350 mg PO DAILY 10/05/16 Sulfamethoxazole/Trimethoprim [Bactrim Ds Tablet] 1 each PO BID 10/05/16 Review of Systems Unable to obtain ROS, reason: Intubated, sedated Physical Exam Vital Signs: Vital Signs Temperature 100.4 F H 10/08/16 07:00 Pulse Rate 103 H 10/08/16 08:00 Respiratory Rate 14 10/08/16 08:00 Blood Pressure 95/68 10/08/16 08:00 O2 Sat by Pulse Oximetry (%) 95 10/07/16 14:00 Constitutional: Yes: Other (Intubated sedated) Eyes: Yes: Conjunctiva Clear HENT: Yes: Atraumatic, Normocephalic Neck: Yes: Supple, Trachea Midline Cardiovascular: Yes: Pulse Irregular Respiratory: Yes: CTA Bilaterally Gastrointestinal: Yes: Normal Bowel Sounds, Soft Musculoskeletal: Yes: WNL Extremities: Yes: Other (stasis changes of legs) Edema: Yes Neurological: Yes: Other (Intubated sedated) Labs: CBC, BMP 10/08/16 05:20 10/08/16 05:20 Imaging - Results Chest X-ray: Report Reviewed Problem List - Problems (1) Atrial fibrillation, new onset Code(s): I48.91 - UNSPECIFIED ATRIAL FIBRILLATION (2) Congestive heart failure (CHF) Code(s): I50.9 - HEART FAILURE, UNSPECIFIED Qualifiers: Congestive heart failure type: combined Congestive heart failure chronicity: acute Qualified Code(s): I50.41 - Acute combined systolic ( congestive) and diastolic (congestive) heart failure Assessment/Plan AP: Respiratory Failure: On ventilatory support Abnormal TFT: Hyperthyroidism vs Sick euthyroid syndrome Repeat TSH FT4, FT3, RT3, TPO, TSI Will F/U Cardiogenic shock: Pressor support as necessary A fib: IV Heparin Electrolyte imbalance: Electrolyte replacement as necessary
[2016-10-08] MEDS: CHLORHEXIDINE GLUCONATE 0.12% 15ML CUP MM SCH ×2 (09:32→21:43)
[2016-10-08] MEDS: ASPIRIN 81 MG CHEWABLE TABLETS PO SCH (09:32)
[2016-10-08] MEDS: DIGOXIN 0.5 MG/2 ML AMPUL IVPUSH SCH (09:32)
[2016-10-08] MEDS: PANTOPRAZOLE SODIUM 100 ML IVPB SCH (09:34)
[2016-10-08] MEDS: MUPIROCIN 2% TOPICAL OINTMENT FOR DECOLONIZATION NS SCH ×2 (09:35→21:44)
--- NOTE | 2016-10-08 09:59 | PN ---
Progress Note, Physician Chief Complaint: Remains in ICU intubated on mechanical ventilation History of Present Illness: Patient was seen and examined. Chart was reviewed Remains sedated on vent - Current Medication List Current Medications: Active Medications Albuterol/Ipratropium (Duoneb -) 1 amp NEB QIDR [facility] Last Admin: 10/08/16 05:57 Dose: 1 amp Aspirin (Asa -) 81 mg PO DAILY [facility] Last Admin: 10/08/16 09:32 Dose: 81 mg Chlorhexidine Gluconate (Hibiclens For Decolonization -) 1 applic TP HS [facility] Last Admin: 10/07/16 21:59 Dose: 1 applic Chlorhexidine Gluconate (Peridex -) 15 ml MM BID [facility] Last Admin: 10/08/16 09:32 Dose: 15 ml Digoxin (Lanoxin Injection -) 0.25 mg IVPUSH DAILY [facility] Last Admin: 10/08/16 09:32 Dose: 0.25 mg Furosemide (Lasix Injection -) 60 mg IVPUSH BID@0600,1400 [facility] Last Admin: 10/08/16 05:50 Dose: 60 mg Heparin Sodium (Porcine) (Heparin -) 1,000 unit IVPUSH PRN PRN PRN Reason: Heparin Heparin Sodium (Porcine) (Heparin -) 5,000 unit IVPUSH PRN PRN PRN Reason: Heparin Pantoprazole Sodium (Protonix 40mg Ivpb (Pre-Docked)) 100 mls @ 200 mls/hr IVPB DAILY [facility] Last Admin: 10/08/16 09:34 Dose: 200 mls/hr Fentanyl 500 mcg/ Dextrose 100 mls @ 5 mls/hr IJ TITR LYNETTE PRN Reason: 25 MCG/HR Last Admin: 10/07/16 21:58 Dose: 20 mls/hr Propofol (Diprivan -) 100 mls @ 3.81 mls/hr IVPB TITR LYNETTE; 5 MCG/KG/MIN PRN Reason: Protocol Last Admin: 10/07/16 21:58 Dose: 19.051 mls/hr Heparin Sodium (Porcine) 25, (000 unit/ Sodium Chloride) 500 mls @ 20 mls/hr IV TITR LYNETTE; 1,000 UNIT/HR PRN Reason: Protocol Last Admin: 10/08/16 06:56 Dose: 22 mls/hr Vasopressin 50 units/ Sodium (Chloride) 100 mls @ 4 mls/hr IVPB ASDIR LYNETTE; 2 UNITS/HR PRN Reason: Protocol Last Admin: 10/08/16 05:51 Dose: 4 mls/hr Metoprolol Tartrate (Lopressor Injection -) 2.5 mg IVPUSH Q4H PRN PRN Reason: HYPERTENSION Mupirocin (Bactroban Ointment (For Decolonization) -) 1 applic NS BID LYNETTE Stop: 10/10/16 21:59 Last Admin: 10/08/16 09:35 Dose: 1 applic Potassium Chloride (Potassium Chloride Oral Liquid) 40 meq PO DAILY [facility] Last Admin: 10/08/16 09:33 Dose: 40 meq Potassium Chloride (Potassium Chloride Oral Liquid) 40 meq PO ONCE ONE Stop: 10/08/16 14:01 - Objective Vital Signs: Vital Signs Temperature 100.4 F H 10/08/16 07:00 Pulse Rate 102 H 10/08/16 09:32 Respiratory Rate 14 10/08/16 08:00 Blood Pressure 95/68 10/08/16 08:00 O2 Sat by Pulse Oximetry (%) 95 10/07/16 14:00 Cardiovascular: Yes: Pulse Irregular, S1, S2 Respiratory: Yes: Diminished, Mechanically Ventilated Gastrointestinal: Yes: Soft, Abdomen, Obese. No: Tenderness Edema: Yes Labs: CBC, BMP 10/08/16 05:20 10/08/16 05:20 Problem List - Problems (1) Acute hypercapnic respiratory failure Code(s): J96.02 - ACUTE RESPIRATORY FAILURE WITH HYPERCAPNIA (2) Acute on chronic diastolic (congestive) heart failure Code(s): I50.33 - ACUTE ON CHRONIC DIASTOLIC (CONGESTIVE) HEART FAILURE (3) Atrial fibrillation, new onset Code(s): I48.91 - UNSPECIFIED ATRIAL FIBRILLATION (4) Congestive heart failure (CHF) Code(s): I50.9 - HEART FAILURE, UNSPECIFIED Qualifiers: Congestive heart failure type: combined Congestive heart failure chronicity: acute Qualified Code(s): I50.41 - Acute combined systolic ( congestive) and diastolic (congestive) heart failure (5) Renal insufficiency Code(s): N28.9 - DISORDER OF KIDNEY AND URETER, UNSPECIFIED (6) Sleep apnea Code(s): G47.30 - SLEEP APNEA, UNSPECIFIED Qualifiers: Sleep apnea type: unspecified type Qualified Code(s): G47.30 - Sleep apnea, unspecified (7) Respiratory failure requiring intubation Code(s): J96.90 - RESPIRATORY FAILURE, UNSP, UNSP W HYPOXIA OR HYPERCAPNIA Assessment/Plan 1. Acute class III-IV NYHA classification LV failure related to systolic LV dysfunction, respiratory failure - on mechanical ventilation 2. Ischemic dilated cardiomyopathy vs. ideopathic cardiomyopathy vs. tachycardia induced cardiomyopathy 3. CAD 4. Persistent atrial fibrillation with periods of rapid ventricular response, [id number] score of 2 5. HTN 6. Hypercholesterolemia 7. Renal insufficiency 8. Polycythmia 9. Thrombocytopenia 10. Hypokalemia PLAN: 1. Continue IV Lasix 2. Continue Pressors (Vasopressin) maintaining MAP's > 65 and attempt to wean off 3. Continue Heparin and eventually to be transitioned to NOAC's 4. Ideally should be on ACEI or ARBS unless it is contraindicated 5. B-Blockers prn for rate control, hemodynamics permitting 6. Continue Digoxin with close monitoring of level 7. Attempt to wean off sedation and wean vent Guarded Further plans are to follow Khalif Correa MD
[2016-10-08 11:24] LABS: URINE APPEARANCE CLEAR; URINE BILIRUBIN NEGATIVE (NEGATIVE); URINE COLOR YELLOW; URINE GLUCOSE (UA) NEGATIVE (NEGATIVE); URINE KETONE NEGATIVE (NEGATIVE); URINE LEUK ESTERASE NEGATIVE (NEGATIVE); URINE NITRITE NEGATIVE (NEGATIVE); URINE PROTEIN NEGATIVE (NEGATIVE); URINE UROBILINOGEN 2.0 E.U/dl E.U./dl (0.2-1.0)
[2016-10-08 11:25] LABS: URINE BLOOD 2+ (NEGATIVE)
[2016-10-08 11:26] LABS: URINE HYALINE CAST 14 /lpf; URINE MUCUS RARE; URINE RBC 154 /hpf (0-3); URINE WBC 3 /hpf (3-5)
--- NOTE | 2016-10-08 13:04 | PN ---
Progress Note, Physician History of Present Illness: Pt seen and examined at bedside. He remains in the ICU intubated. - Current Medication List Current Medications: Active Medications Albuterol/Ipratropium (Duoneb -) 1 amp NEB QIDR [facility] Last Admin: 10/08/16 12:09 Dose: 1 amp Aspirin (Asa -) 81 mg PO DAILY [facility] Last Admin: 10/08/16 09:32 Dose: 81 mg Chlorhexidine Gluconate (Hibiclens For Decolonization -) 1 applic TP HS [facility] Last Admin: 10/07/16 21:59 Dose: 1 applic Chlorhexidine Gluconate (Peridex -) 15 ml MM BID [facility] Last Admin: 10/08/16 09:32 Dose: 15 ml Digoxin (Lanoxin Injection -) 0.25 mg IVPUSH DAILY [facility] Last Admin: 10/08/16 09:32 Dose: 0.25 mg Furosemide (Lasix Injection -) 60 mg IVPUSH BID@0600,1400 [facility] Last Admin: 10/08/16 05:50 Dose: 60 mg Heparin Sodium (Porcine) (Heparin -) 1,000 unit IVPUSH PRN PRN PRN Reason: Heparin Heparin Sodium (Porcine) (Heparin -) 5,000 unit IVPUSH PRN PRN PRN Reason: Heparin Pantoprazole Sodium (Protonix 40mg Ivpb (Pre-Docked)) 100 mls @ 200 mls/hr IVPB DAILY [facility] Last Admin: 10/08/16 09:34 Dose: 200 mls/hr Fentanyl 500 mcg/ Dextrose 100 mls @ 5 mls/hr IJ TITR LYNETTE PRN Reason: 25 MCG/HR Last Admin: 10/07/16 21:58 Dose: 20 mls/hr Propofol (Diprivan -) 100 mls @ 3.81 mls/hr IVPB TITR LYNETTE; 5 MCG/KG/MIN PRN Reason: Protocol Last Admin: 10/07/16 21:58 Dose: 19.051 mls/hr Heparin Sodium (Porcine) 25, (000 unit/ Sodium Chloride) 500 mls @ 20 mls/hr IV TITR LYNETTE; 1,000 UNIT/HR PRN Reason: Protocol Last Admin: 10/08/16 06:56 Dose: 22 mls/hr Vasopressin 50 units/ Sodium (Chloride) 100 mls @ 4 mls/hr IVPB ASDIR LYNETTE; 2 UNITS/HR PRN Reason: Protocol Last Admin: 10/08/16 05:51 Dose: 4 mls/hr Metoprolol Tartrate (Lopressor Injection -) 2.5 mg IVPUSH Q4H PRN PRN Reason: HYPERTENSION Mupirocin (Bactroban Ointment (For Decolonization) -) 1 applic NS BID [facility] Stop: 10/10/16 21:59 Last Admin: 10/08/16 09:35 Dose: 1 applic Potassium Chloride (Potassium Chloride Oral Liquid) 40 meq PO DAILY [facility] Last Admin: 10/08/16 09:33 Dose: 40 meq Potassium Chloride (Potassium Chloride Oral Liquid) 40 meq PO ONCE ONE Stop: 10/08/16 14:01 - Objective Vital Signs: Vital Signs Temperature 100.3 F H 10/08/16 10:00 Pulse Rate 111 H 10/08/16 12:00 Respiratory Rate 14 10/08/16 12:00 Blood Pressure 95/62 10/08/16 12:00 O2 Sat by Pulse Oximetry (%) 95 10/08/16 11:00 Constitutional: Yes: Calm Eyes: Yes: Conjunctiva Clear HENT: Yes: Atraumatic Neck: Yes: Supple Cardiovascular: Yes: S1, S2 Respiratory: Yes: Mechanically Ventilated Gastrointestinal: Yes: Soft, Abdomen, Obese Genitourinary: Yes: Hilario Present Musculoskeletal: Yes: Muscle Weakness Edema: Yes Edema: LLE: 2+, RLE: 2+ Integumentary: Yes: Venous Stasis Changes Neurological: Yes: Lethargy Labs: CBC, BMP 10/08/16 05:20 10/08/16 05:20 INR, PTT INR 1.27 (0.82-1.09) H 10/05/16 19:00 - ....Imaging Chest X-ray: Report Reviewed Problem List - Problems (1) Acute kidney injury Code(s): N17.9 - ACUTE KIDNEY FAILURE, UNSPECIFIED (2) Anasarca Code(s): R60.1 - GENERALIZED EDEMA (3) Congestive heart failure (CHF) Code(s): I50.9 - HEART FAILURE, UNSPECIFIED Qualifiers: Congestive heart failure type: combined Congestive heart failure chronicity: acute Qualified Code(s): I50.41 - Acute combined systolic ( congestive) and diastolic (congestive) heart failure (4) Morbid obesity Code(s): E66.01 - MORBID (SEVERE) OBESITY DUE TO EXCESS CALORIES (5) Renal insufficiency Code(s): N28.9 - DISORDER OF KIDNEY AND URETER, UNSPECIFIED Assessment/Plan Current Medications Generic Name Dose Route Start Last Admin Trade Name Freq PRN Reason Stop Dose Admin Albuterol/Ipratropium 1 amp 10/06/16 00:00 10/08/16 12:09 Duoneb - NEB 1 amp QIDR LYNETTE Administration Aspirin 81 mg 10/06/16 10:00 10/08/16 09:32 Asa - PO 81 mg DAILY LYNETTE Administration Chlorhexidine Gluconate 1 applic 10/05/16 22:00 10/07/16 21:59 Hibiclens For Decolonization - TP 1 applic HS LYNETTE Administration Chlorhexidine Gluconate 15 ml 10/06/16 10:00 10/08/16 09:32 Peridex - MM 15 ml BID LYNETTE Administration Digoxin 0.25 mg 10/07/16 10:00 10/08/16 09:32 Lanoxin Injection - IVPUSH 0.25 mg DAILY LYNETTE Administration Furosemide 60 mg 10/07/16 09:00 10/08/16 05:50 Lasix Injection - IVPUSH 60 mg BID@0600,1400 LYNETTE Administration Heparin Sodium (Porcine) 1,000 unit 10/06/16 21:30 Heparin - IVPUSH PRN PRN Heparin Heparin Sodium (Porcine) 5,000 unit 10/06/16 21:30 Heparin - IVPUSH PRN PRN Heparin Pantoprazole Sodium 100 mls @ 200 mls/hr 10/06/16 10:00 10/08/16 09:34 Protonix 40mg Ivpb (Pre-Docked) IVPB 200 mls/hr DAILY LYNETTE Administration Fentanyl 500 mcg/ Dextrose 100 mls @ 5 mls/hr 10/05/16 20:45 10/07/16 21:58 IJ 20 mls/hr TITR LYNETTE Administration 25 MCG/HR Propofol 100 mls @ 3.81 mls/hr 10/05/16 21:45 10/07/16 21:58 Diprivan - IVPB 19.051 mls/hr TITR LYNETTE Administration Protocol 5 MCG/KG/MIN Heparin Sodium (Porcine) 25, 500 mls @ 20 mls/hr 10/06/16 21:30 10/08/16 06:56 000 unit/ Sodium Chloride IV 22 mls/hr TITR LYNETTE Administration Protocol 1,000 UNIT/HR Vasopressin 50 units/ Sodium 100 mls @ 4 mls/hr 10/07/16 02:10 10/08/16 05:51 Chloride IVPB 4 mls/hr ASDIR LYNETTE Administration Protocol 2 UNITS/HR Metoprolol Tartrate 2.5 mg 10/07/16 07:56 Lopressor Injection - IVPUSH Q4H PRN HYPERTENSION Mupirocin 1 applic 10/05/16 22:00 10/08/16 09:35 Bactroban Ointment (For Decolonization) - NS 10/10/16 21:59 1 applic BID LYNETTE Administration Potassium Chloride 40 meq 10/08/16 10:00 10/08/16 09:33 Potassium Chloride Oral Liquid PO 40 meq DAILY LYNETTE Administration Potassium Chloride 40 meq 10/08/16 14:00 Potassium Chloride Oral Liquid PO 10/08/16 14:01 ONCE ONE Impression 1. Azotemia 2. CHF acute 3. acute resp failure requiring intubation 4. new onset atrial fibrillation 5. hx of htn 6. obesity 7. chronic smoker 8. hypokalemia Plan - continue with diuretics - pt has been responding and has been net negative - replace potassium - cxr shows improvement - repeat labs in am - discussed with ICU team - will follow Dr Delacruz
--- NOTE | 2016-10-08 13:30 | PN ---
Physical Exam: SUBJECTIVE: Patient seen and examined on ventilator support, spo2 96 on fio2 55 on vasopressin 2 patient sedated with fentanyl and propofol getting tube feed had few episodes of fever over night, will send blood culture, urine culture and ua i/o -[id number] OBJECTIVE: Vital Signs Period Temp Pulse Resp BP Sys/Clements Pulse Ox Last 24 Hr 99.1 F-100.4 F 96-114 14-20 87-125/44-80 94-95 GENERAL: sedated and intubated HEAD: Normal with no signs of trauma. EARS, NOSE, THROAT: Ears normal, nares patent, oropharynx clear without exudates. NECK: supple without lymphadenopathy, JVD, or masses. LUNGS: Breath sounds equal bilateral, . No wheezes, and ronchi present decreased since before HEART: s1s2 normal, hr irregularly irregular ABDOMEN: Soft, edema present in lower abdominal wall, scrotum, edema decreased on lower abdominal wall, scrotum still edematous UPPER EXTREMITIES: 2+ pulses, warm, well-perfused. No cyanosis. LOWER EXTREMITIES: 2+ pulses, warm, well-perfused. No calf tenderness.peripheral edema present decreased since yesterday NEUROLOGICAL: unobtainable SKIN: Warm, dry, Laboratory Results - last 24 hr 10/07/16 10/08/16 10/08/16 05:55 05:20 05:20 WBC RBC Hgb Hct MCV MCHC RDW Plt Count MPV Neutrophils % Lymphocytes % Monocytes % Eosinophils % Basophils % PTT (Actin FS) 47.9 H Puncture Site ABG pH ABG pCO2 at Pt Temp ABG pO2 at Pt Temp ABG HCO3 ABG O2 Sat (Measured) ABG O2 Content ABG Base Excess Ye Test O2 Delivery Device Oxygen Flow Rate Vent Mode Vent Rate Mechanical Rate PEEP Pressure Support Vent Sodium 143 Potassium 3.4 L Chloride 91 L Carbon Dioxide 43 H Anion Gap 9 BUN 19 H Creatinine 1.2 Random Glucose 176 H D Calcium 7.7 L Phosphorus 3.3 Magnesium 1.7 L Triglycerides 140 D Cholesterol 112 Total LDL Cholesterol 78 HDL Cholesterol 28 L D Free T3 1.9 L Urine Color Urine Appearance Urine pH Ur Specific [place] Urine Protein Urine Glucose (UA) Urine Ketones Urine Blood Urine Nitrite Urine Bilirubin Urine Urobilinogen Ur Leukocyte Esterase Urine RBC Urine WBC Ur Epithelial Cells Hyaline Casts Urine Mucus Digoxin 0.6220 L 10/08/16 10/08/16 10/08/16 05:20 07:30 10:20 WBC 6.3 RBC 5.19 Hgb 16.7 Hct 50.5 H MCV 97.2 H MCHC 33.1 RDW 16.4 H Plt Count 97 L MPV 9.6 Neutrophils % 73.1 Lymphocytes % 10.9 D Monocytes % 12.4 H Eosinophils % 2.7 Basophils % 0.9 PTT (Actin FS) Puncture Site Right radial ABG pH 7.43 ABG pCO2 at Pt Temp 70.0 H* ABG pO2 at Pt Temp 71.5 L ABG HCO3 45.2 H* ABG O2 Sat (Measured) 94.3 ABG O2 Content 22.6 H ABG Base Excess 15.9 H* Ye Test Positive O2 Delivery Device Vent Oxygen Flow Rate 55% Vent Mode A/c Vent Rate 14 Mechanical Rate Yes PEEP 15.0 Pressure Support Vent 475 Sodium Potassium Chloride Carbon Dioxide Anion Gap BUN Creatinine Random Glucose Calcium Phosphorus Magnesium Triglycerides Cholesterol Total LDL Cholesterol HDL Cholesterol Free T3 Urine Color Yellow Urine Appearance Clear Urine pH 7.0 D Ur Specific [place] 1.010 Urine Protein Negative Urine Glucose (UA) Negative Urine Ketones Negative Urine Blood 2+ H Urine Nitrite Negative Urine Bilirubin Negative Urine Urobilinogen 2.0 e.u/dl Ur Leukocyte Esterase Negative Urine RBC 154 Urine WBC 3 Ur Epithelial Cells Rare Hyaline Casts 14 Urine Mucus Rare Digoxin Active Medications Generic Name Dose Route Start Last Admin Trade Name Freq PRN Reason Stop Dose Admin Albuterol/Ipratropium 1 amp 10/06/16 00:00 10/08/16 12:09 Duoneb - NEB 1 amp QIDR LYNETTE Administration Aspirin 81 mg 10/06/16 10:00 10/08/16 09:32 Asa - PO 81 mg DAILY LYNETTE Administration Chlorhexidine Gluconate 1 applic 10/05/16 22:00 10/07/16 21:59 Hibiclens For Decolonization - TP 1 applic HS LYNETTE Administration Chlorhexidine Gluconate 15 ml 10/06/16 10:00 10/08/16 09:32 Peridex - MM 15 ml BID LYNETTE Administration Digoxin 0.25 mg 10/07/16 10:00 10/08/16 09:32 Lanoxin Injection - IVPUSH 0.25 mg DAILY LYNETTE Administration Furosemide 60 mg 10/07/16 09:00 10/08/16 13:16 Lasix Injection - IVPUSH 60 mg BID@0600,1400 LYNETTE Administration Heparin Sodium (Porcine) 1,000 unit 10/06/16 21:30 Heparin - IVPUSH PRN PRN Heparin Heparin Sodium (Porcine) 5,000 unit 10/06/16 21:30 Heparin - IVPUSH PRN PRN Heparin Pantoprazole Sodium 100 mls @ 200 mls/hr 10/06/16 10:00 10/08/16 09:34 Protonix 40mg Ivpb (Pre-Docked) IVPB 200 mls/hr DAILY L[facility]TE Administration Fentanyl 500 mcg/ Dextrose 100 mls @ 5 mls/hr 10/05/16 20:45 10/07/16 21:58 IJ 20 mls/hr TITR LYNETTE Administration 25 MCG/HR Propofol 100 mls @ 3.81 mls/hr 10/05/16 21:45 10/07/16 21:58 Diprivan - IVPB 19.051 mls/hr TITR LYNETTE Administration Protocol 5 MCG/KG/MIN Heparin Sodium (Porcine) 25, 500 mls @ 20 mls/hr 10/06/16 21:30 10/08/16 06:56 000 unit/ Sodium Chloride IV 22 mls/hr TITR LYNETTE Administration Protocol 1,000 UNIT/HR Vasopressin 50 units/ Sodium 100 mls @ 4 mls/hr 10/07/16 02:10 10/08/16 05:51 Chloride IVPB 4 mls/hr ASDIR LYNETTE Administration Protocol 2 UNITS/HR Metoprolol Tartrate 2.5 mg 10/07/16 07:56 Lopressor Injection - IVPUSH Q4H PRN HYPERTENSION Mupirocin 1 applic 10/05/16 22:00 10/08/16 09:35 Bactroban Ointment (For Decolonization) - NS 10/10/16 21:59 1 applic BID LYNETTE Administration Potassium Chloride 40 meq 10/08/16 10:00 10/08/16 09:33 Potassium Chloride Oral Liquid PO 40 meq DAILY [facility] Administration Potassium Chloride 40 meq 10/08/16 14:00 10/08/16 13:16 Potassium Chloride Oral Liquid PO 10/08/16 14:01 40 meq ONCE ONE Administration ABG Results ABG pH 7.43 (7.35-7.45) 10/08/16 07:30 ABG pCO2 at Pt Temp 70.0 mmHg (35-45) H* 10/08/16 07:30 ABG pO2 at Pt Temp 71.5 mmHg (80-100) L 10/08/16 07:30 ABG HCO3 45.2 meq/L (22-26) H* 10/08/16 07:30 ABG O2 Sat (Measured) 94.3 % (90-98.9) 10/08/16 07:30 ABG O2 Content 22.6 % vol (15-22) H 10/08/16 07:30 ABG Base Excess 15.9 meq/l (-2-2) H* 10/08/16 07:30 ASSESSMENT/PLAN: This is a 60 yo M every day smoker with PMH of HTN, GERD, and obesity who presents due to testicular swelling, b/l lower leg swelling, swelling in lower part of anterior abdominal wall and worsening SOB. Acute exacerbation CHF with hypoxic respiratory failure continue iv lasix increased to 60mg bid monitor i/o, maintain negative balance, todays negative 3582 daily weight monitor vitals follow echo : LV systolic function mild to moderately reduced on ventilator support, keep spo 2 over 90 ( fio2 50, peep decreased to 12, tv 475, cxr improved since yesterday cardiology consult appreciated. monitor cvp A fib - on digoxin 0.25mg daily - continue with heparin drip and eventually to be transitioned to NOAC's - stop amiadrone - on lopressor 2.5mg prn q4h Hypotension on vasopresin 2 taper vasopressin keep MAP >65 MONIE ( cardiorenal) -creat 1.5---> 1.2 improving (baseline 0.9 in apr) - nephrology on case - diurese with lasix 60mg bid - avoid nephrotoxic drugs - monitor creatinine Hypokalemia and hypomagnesemia replace k and mg will try to keep K around 4 FEN -diurese, avoid IV fluid -replete lytes - start on tube feed PPX: PPI, heparin drip follow blood, urine culture and ua Dispo: ICU Visit type - Emergency Visit Emergency Visit: Yes ED Registration Date: 10/05/16 Care time: The patient presented to the Emergency Department on the above date and was hospitalized for further evaluation of their emergent condition. - New Patient This patient is new to me today: No - Critical Care Critical Care patient: Yes Total Critical Care Time (in minutes): 45 Critical Care Statement: The care of this patient involved high complexity decision making to prevent further life threatening deterioration of the patient 's condition and/or to evalute & treat vital organ system(s) failure or risk of failure.
--- NOTE | 2016-10-08 14:25 | MSN ---
Progress Note (short form) - Note Progress Note: 60 yo male recently diagnosed with new onset Afib, B/L LE lymphedema and edema of the scrotum. PMH sig for HTN, GERD, obesity and cigarette smoke. Pt. intubated in ICU. Patient had a neg balance of .28 l. Total intake in last 24 hrs is 1.3 L and output is 1.6 l after 60 mg Lasix BID. Current vent settings are 14/475/55/50/15/5. Allergies Allergy/AdvReac Type Severity Reaction Status Date / Time No Known Allergies Allergy Verified 10/05/16 10:30 Last Vital Signs Temp Pulse Resp BP Pulse Ox 100.3 F H 111 H 18 95/62 95 10/08/16 10:00 10/08/16 12:00 10/08/16 13:45 10/08/16 12:00 10/08/16 11:00 General: Sedated on ventilation; pt asleep during examination Head: Normocephalic Neck: Neg JVD Heart: Normal S1 and S2 Lungs: Rales B/L lower lobes Abdomen: Distended; no TTP; BS normocephalic; no guarding : Testicular edema B/L; neg infection at maxwell site MSK: Pitting edema LE 1+; peripheral pulse 2+; B/L venous stasis LE Current Medications Generic Name Dose Route Start Last Admin Trade Name Freq PRN Reason Stop Dose Admin Albuterol/Ipratropium 1 amp 10/06/16 00:00 10/08/16 12:09 Duoneb - NEB 1 amp QIDR LYNETTE Administration Aspirin 81 mg 10/06/16 10:00 10/08/16 09:32 Asa - PO 81 mg DAILY LYNETTE Administration Chlorhexidine Gluconate 1 applic 10/05/16 22:00 10/07/16 21:59 Hibiclens For Decolonization - TP 1 applic HS LYNETTE Administration Chlorhexidine Gluconate 15 ml 10/06/16 10:00 10/08/16 09:32 Peridex - MM 15 ml BID LYNETTE Administration Digoxin 0.25 mg 10/07/16 10:00 10/08/16 09:32 Lanoxin Injection - IVPUSH 0.25 mg DAILY L[facility]NETTE Administration Furosemide 60 mg 10/07/16 09:00 10/08/16 13:16 Lasix Injection - IVPUSH 60 mg BID@0600,1400 LYNETTE Administration Heparin Sodium (Porcine) 1,000 unit 10/06/16 21:30 Heparin - IVPUSH PRN PRN Heparin Heparin Sodium (Porcine) 5,000 unit 10/06/16 21:30 Heparin - IVPUSH PRN PRN Heparin Pantoprazole Sodium 100 mls @ 200 mls/hr 10/06/16 10:00 10/08/16 09:34 Protonix 40mg Ivpb (Pre-Docked) IVPB 200 mls/hr DAILY LYNETTE Administration Fentanyl 500 mcg/ Dextrose 100 mls @ 5 mls/hr 10/05/16 20:45 10/07/16 21:58 IJ 20 mls/hr TITR LYNETTE Administration 25 MCG/HR Propofol 100 mls @ 3.81 mls/hr 10/05/16 21:45 10/07/16 21:58 Diprivan - IVPB 19.051 mls/hr TITR LYNETTE Administration Protocol 5 MCG/KG/MIN Heparin Sodium (Porcine) 25, 500 mls @ 20 mls/hr 10/06/16 21:30 10/08/16 06:56 000 unit/ Sodium Chloride IV 22 mls/hr TITR LYNETTE Administration Protocol 1,000 UNIT/HR Vasopressin 50 units/ Sodium 100 mls @ 4 mls/hr 10/07/16 02:10 10/08/16 05:51 Chloride IVPB 4 mls/hr ASDIR LYNETTE Administration Protocol 2 UNITS/HR Metoprolol Tartrate 2.5 mg 10/07/16 07:56 Lopressor Injection - IVPUSH Q4H PRN HYPERTENSION Mupirocin 1 applic 10/05/16 22:00 10/08/16 09:35 Bactroban Ointment (For Decolonization) - NS 10/10/16 21:59 1 applic BID LYNETTE Administration Potassium Chloride 40 meq 10/08/16 10:00 10/08/16 09:33 Potassium Chloride Oral Liquid PO 40 meq DAILY LYNETTE Administration Intake & Output 10/05/16 10/06/16 10/07/16 10/08/16 23:59 23:59 23:59 23:59 Intake Total 1742.0 1018 1315.4 Output Total 1500 7600 4600 1600 Balance -1500 -5858.0 -3582 -284.6 Weight 280 lb 0.005 oz 260 lb 1.6 oz 280 lb 4.8 oz 266 lb 5.094 oz Laboratory Results - last 24 hr 10/07/16 10/08/16 10/08/16 05:55 05:20 05:20 WBC RBC Hgb Hct MCV MCHC RDW Plt Count MPV Neutrophils % Lymphocytes % Monocytes % Eosinophils % Basophils % PTT (Actin FS) 47.9 H Puncture Site ABG pH ABG pCO2 at Pt Temp ABG pO2 at Pt Temp ABG HCO3 ABG O2 Sat (Measured) ABG O2 Content ABG Base Excess Ye Test O2 Delivery Device Oxygen Flow Rate Vent Mode Vent Rate Mechanical Rate PEEP Pressure Support Vent Sodium 143 Potassium 3.4 L Chloride 91 L Carbon Dioxide 43 H Anion Gap 9 BUN 19 H Creatinine 1.2 Random Glucose 176 H D Calcium 7.7 L Phosphorus 3.3 Magnesium 1.7 L Triglycerides 140 D Cholesterol 112 Total LDL Cholesterol 78 HDL Cholesterol 28 L D Free T3 1.9 L Urine Color Urine Appearance Urine pH Ur Specific [place] Urine Protein Urine Glucose (UA) Urine Ketones Urine Blood Urine Nitrite Urine Bilirubin Urine Urobilinogen Ur Leukocyte Esterase Urine RBC Urine WBC Ur Epithelial Cells Hyaline Casts Urine Mucus Digoxin 0.6220 L 10/08/16 10/08/16 10/08/16 05:20 07:30 10:20 WBC 6.3 RBC 5.19 Hgb 16.7 Hct 50.5 H MCV 97.2 H MCHC 33.1 RDW 16.4 H Plt Count 97 L MPV 9.6 Neutrophils % 73.1 Lymphocytes % 10.9 D Monocytes % 12.4 H Eosinophils % 2.7 Basophils % 0.9 PTT (Actin FS) Puncture Site Right radial ABG pH 7.43 ABG pCO2 at Pt Temp 70.0 H* ABG pO2 at Pt Temp 71.5 L ABG HCO3 45.2 H* ABG O2 Sat (Measured) 94.3 ABG O2 Content 22.6 H ABG Base Excess 15.9 H* Ye Test Positive O2 Delivery Device Vent Oxygen Flow Rate 55% Vent Mode A/c Vent Rate 14 Mechanical Rate Yes PEEP 15.0 Pressure Support Vent 475 Sodium Potassium Chloride Carbon Dioxide Anion Gap BUN Creatinine Random Glucose Calcium Phosphorus Magnesium Triglycerides Cholesterol Total LDL Cholesterol HDL Cholesterol Free T3 Urine Color Yellow Urine Appearance Clear Urine pH 7.0 D Ur Specific [place] 1.010 Urine Protein Negative Urine Glucose (UA) Negative Urine Ketones Negative Urine Blood 2+ H Urine Nitrite Negative Urine Bilirubin Negative Urine Urobilinogen 2.0 e.u/dl Ur Leukocyte Esterase Negative Urine RBC 154 Urine WBC 3 Ur Epithelial Cells Rare Hyaline Casts 14 Urine Mucus Rare Digoxin 10/08/16 13:35 WBC RBC Hgb Hct MCV MCHC RDW Plt Count MPV Neutrophils % Lymphocytes % Monocytes % Eosinophils % Basophils % PTT (Actin FS) 61.5 H Puncture Site ABG pH ABG pCO2 at Pt Temp ABG pO2 at Pt Temp ABG HCO3 ABG O2 Sat (Measured) ABG O2 Content ABG Base Excess Ye Test O2 Delivery Device Oxygen Flow Rate Vent Mode Vent Rate Mechanical Rate PEEP Pressure Support Vent Sodium Potassium Chloride Carbon Dioxide Anion Gap BUN Creatinine Random Glucose Calcium Phosphorus Magnesium Triglycerides Cholesterol Total LDL Cholesterol HDL Cholesterol Free T3 Urine Color Urine Appearance Urine pH Ur Specific [place] Urine Protein Urine Glucose (UA) Urine Ketones Urine Blood Urine Nitrite Urine Bilirubin Urine Urobilinogen Ur Leukocyte Esterase Urine RBC Urine WBC Ur Epithelial Cells Hyaline Casts Urine Mucus Digoxin Current Active Problems Abrasion hip/leg (Acute) Acute kidney injury (Acute) Acute respiratory failure requiring reintubation (Acute) Anasarca (Acute) Atrial fibrillation, new onset (Acute) Cellulitis (Acute) Congestive heart failure (CHF) (Acute) Edema of scrotum (Acute) Lymphedema of both lower extremities (Acute) Morbid obesity (Acute) Renal insufficiency (Acute) Sleep apnea (Acute) Assessment & Plan: 60 yo male every day smoker with HTN, GERD, Obesity, testicular swelling and shortness of breath; diagnosed with new onset Afib, B/L lower extremity edema and edema of scrotum 1) Acute exacerbation CHF with hypoxic respiratory failure: Continue IV lasix 60 BID; monitor i/o, mainatin neg fluid balance; daily weight, vitals; monitor CVP Continue metoprolol 2.5 IVP Continue Aspirin 81 mg PO daily 2) Afib: Continue Digoxin @ 0.25 mg daqily IVP Continue Heparn drip 1000 unit IVP prn 3) Hypotension: Continue monitoring MAP 4) MONIE (cardiorenal) - continue duresing with Lasix 60 mg BID, avoid nephrotoxic drugs, monitor creatinine 5) Hypokalemia/Hypomagnesia - Continue potassium chloride @ 40 meq PO ; try to keep potassium above 4 6) continue Pantoprozole Sodium - 40 mg IVP for prophylaxis against sepsis. Problem List - Problems (1) Congestive heart failure (CHF) Code(s): I50.9 - HEART FAILURE, UNSPECIFIED Qualifiers: Congestive heart failure type: combined Congestive heart failure chronicity: acute Qualified Code(s): I50.41 - Acute combined systolic ( congestive) and diastolic (congestive) heart failure (2) Acute respiratory failure requiring reintubation Code(s): J96.00 - ACUTE RESPIRATORY FAILURE, UNSP W HYPOXIA OR HYPERCAPNIA (3) Atrial fibrillation, new onset Code(s): I48.91 - UNSPECIFIED ATRIAL FIBRILLATION (4) Renal insufficiency Code(s): N28.9 - DISORDER OF KIDNEY AND URETER, UNSPECIFIED (5) Acute kidney injury Code(s): N17.9 - ACUTE KIDNEY FAILURE, UNSPECIFIED (6) Anasarca Code(s): R60.1 - GENERALIZED EDEMA (7) Cellulitis Code(s): L03.90 - CELLULITIS, UNSPECIFIED Qualifiers: Site of cellulitis: extremity Site of cellulitis of extremity: lower extremity Laterality: right Qualified Code(s): L03.115 - Cellulitis of right lower limb (8) Edema of scrotum Code(s): N50.89 - OTHER SPECIFIED DISORDERS OF THE MALE GENITAL ORGANS (9) Lymphedema of both lower extremities Code(s): I89.0 - LYMPHEDEMA, NOT ELSEWHERE CLASSIFIED (10) Morbid obesity Code(s): E66.01 - MORBID (SEVERE) OBESITY DUE TO EXCESS CALORIES (11) Sleep apnea Code(s): G47.30 - SLEEP APNEA, UNSPECIFIED Qualifiers: Sleep apnea type: unspecified type Qualified Code(s): G47.30 - Sleep apnea, unspecified
[2016-10-08] MEDS: PROPOFOL 100 ML IVPB SCH ×2 (15:19→21:43)
--- NOTE | 2016-10-08 15:21 | PN ---
Teaching Attending Note Name of Resident: Nick Kang ATTENDING PHYSICIAN STATEMENT I saw and evaluated the patient. I reviewed the resident's note and discussed the case with the resident. I agree with the resident's findings and plan as documented. SUBJECTIVE: Pt seen and examined in the ICU. Remains intubated, sedated but arousable. Remains on volume assist control with 55% FiO2 and PEEP 15. Febrile overnight. On vasopressin gtt for BP support. OBJECTIVE: Last Vital Signs Temp Pulse Resp BP Pulse Ox 100.3 F H 111 H 18 95/62 95 10/08/16 10:00 10/08/16 12:00 10/08/16 13:45 10/08/16 12:00 10/08/16 11:00 Intake & Output 10/05/16 10/06/16 10/07/16 10/08/16 23:59 23:59 23:59 23:59 Intake Total 1742.0 1018 1315.4 Output Total 1500 7600 4600 1600 Balance -1500 -5858.0 -3582 -284.6 Weight 280 lb 0.005 oz 260 lb 1.6 oz 280 lb 4.8 oz 266 lb 5.094 oz Gen: intubated, sedated Heart: tachycardic, irregular Lung: scattered rhonchi Abd: soft, obese, nontender Ext: + edema, +scrotal erythema and edema CBC, BMP 10/08/16 05:20 10/08/16 05:20 ABG Results ABG pH 7.43 (7.35-7.45) 10/08/16 07:30 ABG pCO2 at Pt Temp 70.0 mmHg (35-45) H* 10/08/16 07:30 ABG pO2 at Pt Temp 71.5 mmHg (80-100) L 10/08/16 07:30 ABG HCO3 45.2 meq/L (22-26) H* 10/08/16 07:30 ABG O2 Sat (Measured) 94.3 % (90-98.9) 10/08/16 07:30 ABG O2 Content 22.6 % vol (15-22) H 10/08/16 07:30 ABG Base Excess 15.9 meq/l (-2-2) H* 10/08/16 07:30 CXR: improving pulmonary vascular congestion Active Medications Albuterol/Ipratropium (Duoneb -) 1 amp NEB QIDR [facility] Last Admin: 10/08/16 12:09 Dose: 1 amp Aspirin (Asa -) 81 mg PO DAILY [facility] Last Admin: 10/08/16 09:32 Dose: 81 mg Chlorhexidine Gluconate (Hibiclens For Decolonization -) 1 applic TP HS [facility] Last Admin: 10/07/16 21:59 Dose: 1 applic Chlorhexidine Gluconate (Peridex -) 15 ml MM BID [facility] Last Admin: 10/08/16 09:32 Dose: 15 ml Digoxin (Lanoxin Injection -) 0.25 mg IVPUSH DAILY [facility] Last Admin: 10/08/16 09:32 Dose: 0.25 mg Furosemide (Lasix Injection -) 60 mg IVPUSH BID@0600,1400 [facility] Last Admin: 10/08/16 13:16 Dose: 60 mg Heparin Sodium (Porcine) (Heparin -) 1,000 unit IVPUSH PRN PRN PRN Reason: Heparin Heparin Sodium (Porcine) (Heparin -) 5,000 unit IVPUSH PRN PRN PRN Reason: Heparin Pantoprazole Sodium (Protonix 40mg Ivpb (Pre-Docked)) 100 mls @ 200 mls/hr IVPB DAILY [facility] Last Admin: 10/08/16 09:34 Dose: 200 mls/hr Fentanyl 500 mcg/ Dextrose 100 mls @ 5 mls/hr IJ TITR LYNETTE PRN Reason: 25 MCG/HR Last Admin: 10/07/16 21:58 Dose: 20 mls/hr Propofol (Diprivan -) 100 mls @ 3.81 mls/hr IVPB TITR LYNETTE; 5 MCG/KG/MIN PRN Reason: Protocol Last Admin: 10/08/16 15:19 Dose: 19.051 mls/hr Heparin Sodium (Porcine) 25, (000 unit/ Sodium Chloride) 500 mls @ 20 mls/hr IV TITR LYNETTE; 1,000 UNIT/HR PRN Reason: Protocol Last Admin: 10/08/16 06:56 Dose: 22 mls/hr Vasopressin 50 units/ Sodium (Chloride) 100 mls @ 4 mls/hr IVPB ASDIR LYNETTE; 2 UNITS/HR PRN Reason: Protocol Last Admin: 10/08/16 05:51 Dose: 4 mls/hr Metoprolol Tartrate (Lopressor Injection -) 2.5 mg IVPUSH Q4H PRN PRN Reason: HYPERTENSION Mupirocin (Bactroban Ointment (For Decolonization) -) 1 applic NS BID [facility] Stop: 10/10/16 21:59 Last Admin: 10/08/16 09:35 Dose: 1 applic Potassium Chloride (Potassium Chloride Oral Liquid) 40 meq PO DAILY [facility] Last Admin: 10/08/16 09:33 Dose: 40 meq ASSESSMENT AND PLAN: Acute Hypoxic and Hypercapneic Respiratory Failure Acute on ?Chronic LV Systolic Heart Failure Pulmonary HTN Volume Overload Atrial Fibrillation with RVR Acute Kidney Injury Hyperthyroidism Fevers - f/u pending repeat cultures - consider ID evaluation if persistently febrile - continue lasix - monitor urine output, creatinine - daily weights, I/Os - replete lytes - titrate vasopressin gtt to maintain MAP >65 - lopressor for rate control - continue anticoagulation - inhaled bronchodilators - attempt to taper FiO2, PEEP to keep SpO2 >90% - not a candidate for weaning at this time due to high oxygen requirements - enteral feeds - DVT/GI prophylaxis - continue ICU monitoring critical care time spent reviewing chart, evaluating patient and formulating plan 45 min
[2016-10-08] MEDS: FENTANYL INJECTION 500 MCG in DEXTROSE 5%-WATER - 90 ML IJ SCH ×2 (15:33→20:45)
--- NOTE | 2016-10-08 15:40 | PN ---
Physical Exam: SUBJECTIVE: Patient seen and examined Patient resting in bed, intubated, sedated, on vasopressin. minimally wakeful. No acute events. urine output 4600 after 120 mg iv lasix yesterday, another 1600cc ovenight. achieved negative fluid balance. BP 95/68 map 77. CVP 14, in A fib rate 90, O2 sat 93% Vent setting 14/475/55/50/15/5. On vasopressin @2, Fentanyl @50, Propofol @ 25. OBJECTIVE: Vital Signs Period Temp Pulse Resp BP Sys/Clements Pulse Ox Last 24 Hr 100 F-100.4 F 96-114 14-18 87-125/44-80 94-95 GENERAL: sedated overall less edematous HEAD: Normal with no signs of trauma, obese EYES: pinpoint EARS, NOSE, THROAT: Moist mucous membranes. NECK: supple + JVD LUNGS: diffuse ronchi but improved HEART: tachy, irregular ABDOMEN: less distended, 1+ edema, moderately erythematous, reduced bowel sounds MUSCULOSKELETAL: No bony deformities UPPER EXTREMITIES: 2+ pulses, mild peripheral edema. LOWER EXTREMITIES: 1+ pulses, 3+ pitting edema improved, chronic stasis dermatitis b/l NEUROLOGICAL: grossly symmetrical face PSYCHIATRIC: unable to assess SKIN: Warm, dry Laboratory Results - last 24 hr 10/07/16 10/08/16 10/08/16 05:55 05:20 05:20 WBC RBC Hgb Hct MCV MCHC RDW Plt Count MPV Neutrophils % Lymphocytes % Monocytes % Eosinophils % Basophils % PTT (Actin FS) 47.9 H Puncture Site ABG pH ABG pCO2 at Pt Temp ABG pO2 at Pt Temp ABG HCO3 ABG O2 Sat (Measured) ABG O2 Content ABG Base Excess Ye Test O2 Delivery Device Oxygen Flow Rate Vent Mode Vent Rate Mechanical Rate PEEP Pressure Support Vent Sodium 143 Potassium 3.4 L Chloride 91 L Carbon Dioxide 43 H Anion Gap 9 BUN 19 H Creatinine 1.2 Random Glucose 176 H D Calcium 7.7 L Phosphorus 3.3 Magnesium 1.7 L Triglycerides 140 D Cholesterol 112 Total LDL Cholesterol 78 HDL Cholesterol 28 L D Free T3 1.9 L Urine Color Urine Appearance Urine pH Ur Specific [place] Urine Protein Urine Glucose (UA) Urine Ketones Urine Blood Urine Nitrite Urine Bilirubin Urine Urobilinogen Ur Leukocyte Esterase Urine RBC Urine WBC Ur Epithelial Cells Hyaline Casts Urine Mucus Digoxin 0.6220 L 10/08/16 10/08/16 10/08/16 05:20 07:30 10:20 WBC 6.3 RBC 5.19 Hgb 16.7 Hct 50.5 H MCV 97.2 H MCHC 33.1 RDW 16.4 H Plt Count 97 L MPV 9.6 Neutrophils % 73.1 Lymphocytes % 10.9 D Monocytes % 12.4 H Eosinophils % 2.7 Basophils % 0.9 PTT (Actin FS) Puncture Site Right radial ABG pH 7.43 ABG pCO2 at Pt Temp 70.0 H* ABG pO2 at Pt Temp 71.5 L ABG HCO3 45.2 H* ABG O2 Sat (Measured) 94.3 ABG O2 Content 22.6 H ABG Base Excess 15.9 H* Ye Test Positive O2 Delivery Device Vent Oxygen Flow Rate 55% Vent Mode A/c Vent Rate 14 Mechanical Rate Yes PEEP 15.0 Pressure Support Vent 475 Sodium Potassium Chloride Carbon Dioxide Anion Gap BUN Creatinine Random Glucose Calcium Phosphorus Magnesium Triglycerides Cholesterol Total LDL Cholesterol HDL Cholesterol Free T3 Urine Color Yellow Urine Appearance Clear Urine pH 7.0 D Ur Specific [place] 1.010 Urine Protein Negative Urine Glucose (UA) Negative Urine Ketones Negative Urine Blood 2+ H Urine Nitrite Negative Urine Bilirubin Negative Urine Urobilinogen 2.0 e.u/dl Ur Leukocyte Esterase Negative Urine RBC 154 Urine WBC 3 Ur Epithelial Cells Rare Hyaline Casts 14 Urine Mucus Rare Digoxin 10/08/16 13:35 WBC RBC Hgb Hct MCV MCHC RDW Plt Count MPV Neutrophils % Lymphocytes % Monocytes % Eosinophils % Basophils % PTT (Actin FS) 61.5 H Puncture Site ABG pH ABG pCO2 at Pt Temp ABG pO2 at Pt Temp ABG HCO3 ABG O2 Sat (Measured) ABG O2 Content ABG Base Excess Ye Test O2 Delivery Device Oxygen Flow Rate Vent Mode Vent Rate Mechanical Rate PEEP Pressure Support Vent Sodium Potassium Chloride Carbon Dioxide Anion Gap BUN Creatinine Random Glucose Calcium Phosphorus Magnesium Triglycerides Cholesterol Total LDL Cholesterol HDL Cholesterol Free T3 Urine Color Urine Appearance Urine pH Ur Specific [place] Urine Protein Urine Glucose (UA) Urine Ketones Urine Blood Urine Nitrite Urine Bilirubin Urine Urobilinogen Ur Leukocyte Esterase Urine RBC Urine WBC Ur Epithelial Cells Hyaline Casts Urine Mucus Digoxin Active Medications Generic Name Dose Route Start Last Admin Trade Name Freq PRN Reason Stop Dose Admin Albuterol/Ipratropium 1 amp 10/06/16 00:00 10/08/16 12:09 Duoneb - NEB 1 amp QIDR LYNETTE Administration Aspirin 81 mg 10/06/16 10:00 10/08/16 09:32 Asa - PO 81 mg DAILY LYNETTE Administration Chlorhexidine Gluconate 1 applic 10/05/16 22:00 10/07/16 21:59 Hibiclens For Decolonization - TP 1 applic HS LYNETTE Administration Chlorhexidine Gluconate 15 ml 10/06/16 10:00 10/08/16 09:32 Peridex - MM 15 ml BID LYNETTE Administration Digoxin 0.25 mg 10/07/16 10:00 10/08/16 09:32 Lanoxin Injection - IVPUSH 0.25 mg DAILY LYNETTE Administration Furosemide 60 mg 10/07/16 09:00 10/08/16 13:16 Lasix Injection - IVPUSH 60 mg BID@0600,1400 LYNETTE Administration Heparin Sodium (Porcine) 1,000 unit 10/06/16 21:30 Heparin - IVPUSH PRN PRN Heparin Heparin Sodium (Porcine) 5,000 unit 10/06/16 21:30 Heparin - IVPUSH PRN PRN Heparin Pantoprazole Sodium 100 mls @ 200 mls/hr 10/06/16 10:00 10/08/16 09:34 Protonix 40mg Ivpb (Pre-Docked) IVPB 200 mls/hr DAILY LYNETTE Administration Fentanyl 500 mcg/ Dextrose 100 mls @ 5 mls/hr 10/05/16 20:45 10/08/16 15:33 IJ 20 mls/hr TITR LYNETTE Administration 25 MCG/HR Propofol 100 mls @ 3.81 mls/hr 10/05/16 21:45 10/08/16 15:19 Diprivan - IVPB 19.051 mls/hr TITR LYNETTE Administration Protocol 5 MCG/KG/MIN Heparin Sodium (Porcine) 25, 500 mls @ 20 mls/hr 10/06/16 21:30 10/08/16 06:56 000 unit/ Sodium Chloride IV 22 mls/hr TITR LYNETTE Administration Protocol 1,000 UNIT/HR Vasopressin 50 units/ Sodium 100 mls @ 4 mls/hr 10/07/16 02:10 10/08/16 05:51 Chloride IVPB 4 mls/hr ASDIR LYNETTE Administration Protocol 2 UNITS/HR Metoprolol Tartrate 2.5 mg 10/07/16 07:56 Lopressor Injection - IVPUSH Q4H PRN HYPERTENSION Mupirocin 1 applic 10/05/16 22:00 10/08/16 09:35 Bactroban Ointment (For Decolonization) - NS 10/10/16 21:59 1 applic BID LYNETTE Administration Potassium Chloride 40 meq 10/08/16 10:00 10/08/16 09:33 Potassium Chloride Oral Liquid PO 40 meq DAILY LYNETTE Administration ASSESSMENT/PLAN: This is a 60 yo M every day smoker with PMH of HTN, GERD, and obesity who presents due to testicular swelling x 1 W and worsening SOB. Acute decompensated CHF -NYHA class III-IV -severe fluid overload, anasarca -s/p 120mg lasix IV yesterday -negative fluid balance -duplex LE negative -TTE mild/mod reduced EF, mild pulm HTN, RVP 30-40, global mild/mod LV hypokinesis worse than 05/06/16 -CXR AM improved -cardio consult appreciated -digoxin 0.25 d, level therapeutic 0.6 -metoptolol tartare 2.4 q 4h -lasix 60 BID -trop negative -strict I and O -daily weight (266 from 280) -am xray -abg appreciated, co2 retention, hypoxia -tele monitoring a fib -icu monitoring -wean off sedation Hypotension -wean off vasopressin A fib -hep eventually to NOAC -continue home Asa 81 Hyperthyroid -tsh 0.29 -ft4 1.77 -fT3 1.9 -stabilize heart rate for now. hold methimazole MONIE -creat 1.2 (baseline 0.9 in apr) -cardiorenal -renal consult appreciated -diurese, suggests lasix 60 bid Acute hypoxic respiratory failure -intubated -keep FIO2 >88 -daily weaning FEN -diurese -replete lytes -npo PPX: PPI, Chantelle Dispo: ICU Problem List - Problems (1) Acute respiratory failure requiring reintubation Code(s): J96.00 - ACUTE RESPIRATORY FAILURE, UNSP W HYPOXIA OR HYPERCAPNIA (2) Atrial fibrillation, new onset Code(s): I48.91 - UNSPECIFIED ATRIAL FIBRILLATION (3) Congestive heart failure (CHF) Code(s): I50.9 - HEART FAILURE, UNSPECIFIED Qualifiers: Congestive heart failure type: combined Congestive heart failure chronicity: acute Qualified Code(s): I50.41 - Acute combined systolic ( congestive) and diastolic (congestive) heart failure (4) Edema of scrotum Code(s): N50.89 - OTHER SPECIFIED DISORDERS OF THE MALE GENITAL ORGANS (5) Lymphedema of both lower extremities Code(s): I89.0 - LYMPHEDEMA, NOT ELSEWHERE CLASSIFIED (6) Morbid obesity Code(s): E66.01 - MORBID (SEVERE) OBESITY DUE TO EXCESS CALORIES (7) Renal insufficiency Code(s): N28.9 - DISORDER OF KIDNEY AND URETER, UNSPECIFIED (8) Sleep apnea Code(s): G47.30 - SLEEP APNEA, UNSPECIFIED Qualifiers: Sleep apnea type: unspecified type Qualified Code(s): G47.30 - Sleep apnea, unspecified (9) Acute kidney injury Code(s): N17.9 - ACUTE KIDNEY FAILURE, UNSPECIFIED (10) Anasarca Code(s): R60.1 - GENERALIZED EDEMA Visit type - Emergency Visit Emergency Visit: Yes ED Registration Date: 10/05/16 Care time: The patient presented to the Emergency Department on the above date and was hospitalized for further evaluation of their emergent condition. - New Patient This patient is new to me today: No - Critical Care Critical Care patient: Yes Total Critical Care Time (in minutes): 47 Critical Care Statement: The care of this patient involved high complexity decision making to prevent further life threatening deterioration of the patient 's condition and/or to evalute & treat vital organ system(s) failure or risk of failure. - Discharge Referral Referred to [facility] Med P.C.: No
--- NOTE | 2016-10-08 16:28 | PN ---
Teaching Attending Note Name of Resident: Hillary Reyes ATTENDING PHYSICIAN STATEMENT I saw and evaluated the patient. I reviewed the resident's note and discussed the case with the resident. I agree with the resident's findings and plan as documented. SUBJECTIVE: unable to obtain hx . no events over night . OBJECTIVE: NAD , sedated, intubated , opens eyes to commands no JVD CV: irreg irreg Lungs ; clear anteriorly ABd: 1+ abd wall edema , no TTP , hypoactive BS Ext : 2 + piting edema . Scrotal swelling and pitting edema ( 2+ ) ASSESSMENT AND PLAN: 60 y/o man withho GERD, HTn, previously mildly reduced EF who presented with scrotal swelling and was diagnosed with acute hypoxic resp failure due to acute CHF exacerbation 1- Acute hypoxic hypercapnic reap failure : 2/2 acute CHF exacerbation . Echo with mild-Mod reduction in EF - cont lasix at current dose , good response to diuretics , monitor weight and resp status - cont vent support . 2- Cardiogenic shock: - cont vasopressin - will d/w cardiology the role for inotrop 3- MONIE : due to pre-renal azotemia from decreased TAPEMAN . - cont tomonitor with diuresis - renal US reviewed. 4- new onset A fib. rate has improved - cont heparin gtt - cont IV BB for now and digoxin 5- electrolytes abn : replete K , and Mg ICU level of care Critical Care Total Critical Care Time (in minutes): 45 Critical Care Statement: The care of this patient involved high complexity decision making to prevent further life threatening deterioration of the patient 's condition and/or to evalute & treat vital organ system(s) failure or risk of failure.
[2016-10-08] MEDS: CHLORHEXIDINE GLUCONATE 4% CLEANSER FOR DECOLONIZATION TP SCH (21:43)
[2016-10-09 00:54] LABS: ALBUMIN 2.3 g/dl (3.4-5.0); CALCIUM 7.7 mg/dL (8.5-10.1); CREATININE 1.1 mg/dL (0.7-1.3); GLUCOSE,RANDOM 119 mg/dL (74-106); MAGNESIUM 1.9 mg/dL (1.8-2.4); SGOT/AST 41 U/L (15-37); SGPT/ALT 17 U/L (12-78)
[2016-10-09 00:56] LABS: ALK PHOS 42 U/L (45-117)
[2016-10-09 01:22] LABS: ANION GAP 4 (8-16); CO2 49 mmol/L (21-32)
[2016-10-09] MEDS: VASOPRESSIN 50 UNITS in SODIUM CHLORIDE 97.5 ML IVPB SCH (02:10)
[2016-10-09] MEDS ORDERED: KCL 10 MEQ IVPB 100 ML IVPB SCH (03:45)
[2016-10-09] MEDS: HEPARIN - 25,000 UNIT in SODIUM CHLORIDE 495 ML IV SCH (04:00)
[2016-10-09] MEDS: ALBUTEROL SO4 2.5/IPRATROPIUM 0.5 INH SOL 3 ML VIAL.NEB. NEB SCH ×4 (05:35→23:42)
[2016-10-09] MEDS: FUROSEMIDE 40 MG/4 ML INJECTABLE VIAL IVPUSH SCH ×2 (05:37→13:05)
[2016-10-09 06:18] LABS: BASOPHIL 0.7 % (0-2.0); EOSINOPHIL 3.1 % (0-4.5); MCH 31.8 pg (25.7-33.7); MCHC 32.7 g/dl (32.0-35.9); MEAN CELL VOLUME 97.4 fl (80-96); MEAN PLT VOLUME 9.2 fl (7.5-11.1); NEUTROPHILS 71.7 % (42.8-82.8); PLATELET COUNT 98 K/MM3 (134-434); RDW 16.6 % (11.9-15.9); WHITE BLOOD COUNT 6.3 K/mm3 (4.0-10.0)
[2016-10-09 06:46] LABS: ALBUMIN 2.4 g/dl (3.4-5.0); BILIRUBIN,TOTAL 2.2 mg/dL (0.2-1.0); CALCIUM 7.8 mg/dL (8.5-10.1); GLUCOSE,RANDOM 145 mg/dL (74-106); SGOT/AST 44 U/L (15-37); SGPT/ALT 18 U/L (12-78)
[2016-10-09 06:47] LABS: ALK PHOS 44 U/L (45-117); TOT PROT 5.1 g/dl (6.4-8.2)
[2016-10-09 07:14] LABS: ANION GAP 7 (8-16); CO2 46 mmol/L (21-32)
[2016-10-09] MEDS: PROPOFOL 100 ML IVPB SCH ×4 (07:20→21:45)
[2016-10-09 07:24] LABS: THYROID STIMULATING HORMONE 0.77 uIU/ml (0.358-3.74)
[2016-10-09 07:37] LABS: ARTERIAL BLD GAS O2 SATURATION 93.9 % (90-98.9); ARTERIAL BLOOD GAS HCO3 46.3 meq/L (22-26); ARTERIAL BLOOD GAS PO2 68.6 mmHg (80-100); ARTERIAL BLOOD GAS pH 7.44 (7.35-7.45)
[2016-10-09 07:44] LABS: ALLENS TEST POSITIVE; ART PUNCT SITE RIGHT RADIAL; LPM/O2% 50%; PT. ON O2? YES; TYPE OF O2 MEC.VENT
[2016-10-09 07:46] LABS: MECH. VENT. YES; VENT RATE 14; VT/PRESS 475
--- NOTE | 2016-10-09 09:03 | PN ---
Progress Note (short form) - Note Progress Note: Pt is intubated, sedated Vital Signs Period Temp Pulse Resp BP Sys/Clements Pulse Ox Last 24 Hr 100 F-100.7 F 96-131 14-24 82-131/41-92 91-95 PE: Intubated, sedated Neck:Supple Lungs: CTA Abd: Benign CVS: S1S2 Ext: stasis changes CMP Sodium 143 mmol/L (136-145) 10/09/16 05:05 Potassium 3.5 mmol/L (3.5-5.1) 10/09/16 05:05 Chloride 90 mmol/L (98-107) L 10/09/16 05:05 Carbon Dioxide 46 mmol/L (21-32) H 10/09/16 05:05 Anion Gap 7 (8-16) L 10/09/16 05:05 BUN 19 mg/dL (7-18) H 10/09/16 05:05 Creatinine 1.0 mg/dL (0.7-1.3) 10/09/16 05:05 Creat Clearance w eGFR > 60 (>60) 10/09/16 05:05 Random Glucose 145 mg/dL (74-106) H D 10/09/16 05:05 Lactic Acid 1.162 mmol/L (0.4-2.0) 10/06/16 05:20 Calcium 7.8 mg/dL (8.5-10.1) L 10/09/16 05:05 Phosphorus 3.0 mg/dL (2.5-4.9) 10/09/16 00:00 Magnesium 2.0 mg/dL (1.8-2.4) 10/09/16 05:05 Total Bilirubin 2.2 mg/dL (0.2-1.0) H 10/09/16 05:05 AST 44 U/L (15-37) H 10/09/16 05:05 ALT 18 U/L (12-78) 10/09/16 05:05 Alkaline Phosphatase 44 U/L (45-117) L 10/09/16 05:05 Creatine Kinase 493 IU/L (39-308) H D 10/07/16 05:55 Creatine Kinase Index 0.7 % (0.0-5.0) 10/07/16 05:55 CK-MB (CK-2) 3.259 ng/ml (0.5-3.6) 10/07/16 05:55 CK-MB (CK-2) Rel Index Cancelled 10/05/16 11:20 Troponin I < 0.02 ng/ml (0.00-0.05) 10/07/16 05:55 B-Natriuretic Peptide 1613.37 pg/ml (5-125) H 10/05/16 11:20 Total Protein 5.1 g/dl (6.4-8.2) L 10/09/16 05:05 Albumin 2.4 g/dl (3.4-5.0) L 10/09/16 05:05 Triglycerides 140 mg/dL (35-160) D 10/08/16 05:20 Cholesterol 112 mg/dL (50-200) 10/08/16 05:20 Total LDL Cholesterol 78 mg/dL (5-100) 10/08/16 05:20 HDL Cholesterol 28 mg/dL (40-60) L D 10/08/16 05:20 TSH 0.77 uIU/ml (0.358-3.74) D 10/09/16 05:05 Free T4 1.77 ng/dl (0.76-1.16) H 10/06/16 05:20 Free T3 1.9 pg/ml (2.0-4.4) L 10/07/16 05:55 Current Medications Generic Name Dose Route Start Last Admin Trade Name Freq PRN Reason Stop Dose Admin Albuterol/Ipratropium 1 amp 10/06/16 00:00 10/09/16 05:35 Duoneb - NEB 1 amp QIDR LYNETTE Administration Chlorhexidine Gluconate 1 applic 10/05/16 22:00 10/08/16 21:43 Hibiclens For Decolonization - TP 1 applic HS LYNETTE Administration Chlorhexidine Gluconate 15 ml 10/06/16 10:00 10/08/16 21:43 Peridex - MM 15 ml BID LYNETTE Administration Digoxin 0.25 mg 10/07/16 10:00 10/08/16 09:32 Lanoxin Injection - IVPUSH 0.25 mg DAILY LYNETTE Administration Furosemide 60 mg 10/07/16 09:00 10/09/16 05:37 Lasix Injection - IVPUSH 60 mg BID@0600,1400 LYNETTE Administration Heparin Sodium (Porcine) 1,000 unit 10/06/16 21:30 Heparin - IVPUSH PRN PRN Heparin Heparin Sodium (Porcine) 5,000 unit 10/06/16 21:30 Heparin - IVPUSH PRN PRN Heparin Pantoprazole Sodium 100 mls @ 200 mls/hr 10/06/16 10:00 10/08/16 09:34 Protonix 40mg Ivpb (Pre-Docked) IVPB 200 mls/hr DAILY LYNETTE Administration Fentanyl 500 mcg/ Dextrose 100 mls @ 5 mls/hr 10/05/16 20:45 10/08/16 20:45 IJ 20 mls/hr TITR LYNETTE Administration 25 MCG/HR Propofol 100 mls @ 3.81 mls/hr 10/05/16 21:45 10/09/16 07:20 Diprivan - IVPB 19.051 mls/hr TITR LYNETTE Administration Protocol 5 MCG/KG/MIN Heparin Sodium (Porcine) 25, 500 mls @ 20 mls/hr 10/06/16 21:30 10/09/16 04:00 000 unit/ Sodium Chloride IV 0.44 mls/hr TITR LYNETTE Administration Protocol 1,000 UNIT/HR Vasopressin 50 units/ Sodium 100 mls @ 4 mls/hr 10/07/16 02:10 10/09/16 02:10 Chloride IVPB Not Given ASDIR LYNETTE Protocol 2 UNITS/HR Magnesium Oxide 400 mg 10/09/16 07:33 Mag-Ox - PO 10/09/16 07:34 ONCE ONE Metoprolol Tartrate 2.5 mg 10/07/16 07:56 Lopressor Injection - IVPUSH Q4H PRN HYPERTENSION Mupirocin 1 applic 10/05/16 22:00 10/08/16 21:44 Bactroban Ointment (For Decolonization) - NS 10/10/16 21:59 1 applic BID LYNETTE Administration Potassium Chloride 40 meq 10/08/16 10:00 10/08/16 09:33 Potassium Chloride Oral Liquid PO 40 meq DAILY LYNETTE Administration Potassium Chloride 40 meq 10/09/16 14:00 Potassium Chloride Oral Liquid PO 10/09/16 14:01 ONCE ONE AP: Abnormal TFT: TSH WNL today Rpt FT4, FT3 pending TSI Pending Will f/u CHF Respiratory failure: Intubated, sedated Will f/u Problem List - Problems (1) Atrial fibrillation, new onset Code(s): I48.91 - UNSPECIFIED ATRIAL FIBRILLATION (2) Congestive heart failure (CHF) Code(s): I50.9 - HEART FAILURE, UNSPECIFIED Qualifiers: Congestive heart failure type: combined Congestive heart failure chronicity: acute Qualified Code(s): I50.41 - Acute combined systolic ( congestive) and diastolic (congestive) heart failure
[2016-10-09] MEDS ORDERED: MAGNESIUM OXIDE 400 MG TABLET (FP) PO ONE (09:15)
[2016-10-09] MEDS: DIGOXIN 0.5 MG/2 ML AMPUL IVPUSH SCH (09:22)
[2016-10-09] MEDS: MUPIROCIN 2% TOPICAL OINTMENT FOR DECOLONIZATION NS SCH ×2 (09:22→22:39)
[2016-10-09] MEDS: CHLORHEXIDINE GLUCONATE 0.12% 15ML CUP MM SCH ×2 (09:23→22:38)
[2016-10-09] MEDS: POTASSIUM CHLORIDE ORAL LIQUID 20 MEQ/15 ML PO SCH (09:24)
[2016-10-09] MEDS: PANTOPRAZOLE SODIUM 100 ML IVPB SCH (09:24)
--- NOTE | 2016-10-09 09:32 | PN ---
Teaching Attending Note Name of Resident: Hillary Reyes ATTENDING PHYSICIAN STATEMENT I saw and evaluated the patient. I reviewed the resident's note and discussed the case with the resident. I agree with the resident's findings and plan as documented. SUBJECTIVE: unable to obtain hx. no events over night OBJECTIVE: NAD , sedated, intubated , turns head to verbal stimulation no JVD CV: irreg irreg Lungs ; clear anteriorly ABd: 1+ abd wall edema , no TTP , hypoactive BS Ext : 2 + pitting edema . Scrotal swelling and pitting edema ( 2+ ) ASSESSMENT AND PLAN: 60 y/o man withho GERD, HTn, previously mildly reduced EF who presented with scrotal swelling and was diagnosed with acute hypoxic resp failure due to acute CHF exacerbation 1- Acute hypoxic hypercapnic reap failure : 2/2 acute CHF exacerbation. Echo with mild-Mod reduction in EF - cont lasix at current dose UOP > 4L yesterday - cont vent support . 2- Cardiogenic shock: - off vasopressin now , SBP 82 ( MAP 62 ) . will d/w card role for inotrop 3- MONIE : due to pre-renal azotemia from decreased B[employer]APPING . - cont tomonitor with diuresis 4- new onset A fib. rate has improved - cont heparin gtt - cont IV BB for now and digoxin 5- electrolytes abn :monitor and replete as needed ICU level of care Critical Care Total Critical Care Time (in minutes): 40 Critical Care Statement: The care of this patient involved high complexity decision making to prevent further life threatening deterioration of the patient 's condition and/or to evalute & treat vital organ system(s) failure or risk of failure.
--- NOTE | 2016-10-09 09:52 | PN ---
Progress Note, Physician History of Present Illness: Arousable on vent, weaned off vasopressin, remains in afib, diuresing well, low grade fevers. - Current Medication List Current Medications: Active Medications Albuterol/Ipratropium (Duoneb -) 1 amp NEB QIDR [facility] Last Admin: 10/09/16 05:35 Dose: 1 amp Chlorhexidine Gluconate (Hibiclens For Decolonization -) 1 applic TP HS [facility] Last Admin: 10/08/16 21:43 Dose: 1 applic Chlorhexidine Gluconate (Peridex -) 15 ml MM BID [facility] Last Admin: 10/09/16 09:23 Dose: 15 ml Digoxin (Lanoxin Injection -) 0.25 mg IVPUSH DAILY [facility] Last Admin: 10/09/16 09:22 Dose: 0.25 mg Furosemide (Lasix Injection -) 60 mg IVPUSH BID@0600,1400 [facility] Last Admin: 10/09/16 05:37 Dose: 60 mg Heparin Sodium (Porcine) (Heparin -) 1,000 unit IVPUSH PRN PRN PRN Reason: Heparin Heparin Sodium (Porcine) (Heparin -) 5,000 unit IVPUSH PRN PRN PRN Reason: Heparin Pantoprazole Sodium (Protonix 40mg Ivpb (Pre-Docked)) 100 mls @ 200 mls/hr IVPB DAILY [facility] Last Admin: 10/09/16 09:24 Dose: 200 mls/hr Fentanyl 500 mcg/ Dextrose 100 mls @ 5 mls/hr IJ TITR LYNETTE PRN Reason: 25 MCG/HR Last Admin: 10/08/16 20:45 Dose: 20 mls/hr Propofol (Diprivan -) 100 mls @ 3.81 mls/hr IVPB TITR LYNETET; 5 MCG/KG/MIN PRN Reason: Protocol Last Admin: 10/09/16 07:20 Dose: 19.051 mls/hr Heparin Sodium (Porcine) 25, (000 unit/ Sodium Chloride) 500 mls @ 20 mls/hr IV TITR LYNETTE; 1,000 UNIT/HR PRN Reason: Protocol Last Admin: 10/09/16 04:00 Dose: 0.44 mls/hr Vasopressin 50 units/ Sodium (Chloride) 100 mls @ 4 mls/hr IVPB ASDIR LYNETTE; 2 UNITS/HR PRN Reason: Protocol Last Admin: 10/09/16 02:10 Dose: Not Given Metoprolol Tartrate (Lopressor Injection -) 2.5 mg IVPUSH Q4H PRN PRN Reason: HYPERTENSION Mupirocin (Bactroban Ointment (For Decolonization) -) 1 applic NS BID [facility] Stop: 10/10/16 21:59 Last Admin: 10/09/16 09:22 Dose: 1 applic Potassium Chloride (Potassium Chloride Oral Liquid) 40 meq PO DAILY [facility] Last Admin: 10/09/16 09:24 Dose: 40 meq Potassium Chloride (Potassium Chloride Oral Liquid) 40 meq PO ONCE ONE Stop: 10/09/16 14:01 - Objective Vital Signs: Vital Signs Temperature 100.2 F H 10/09/16 08:00 Pulse Rate 113 H 10/09/16 09:22 Respiratory Rate 14 10/09/16 08:00 Blood Pressure 82/52 10/09/16 08:00 O2 Sat by Pulse Oximetry (%) 91 L 10/09/16 08:00 Constitutional: Yes: No Distress, Calm Neck: Yes: Supple Cardiovascular: Yes: Pulse Irregular Respiratory: Yes: Diminished, Intubated, Mechanically Ventilated Gastrointestinal: Yes: Normal Bowel Sounds, Soft, Abdomen, Obese Edema: Yes Edema: LLE: 1+, RLE: 1+ Labs: CBC, BMP 10/09/16 05:05 10/09/16 05:05 INR, PTT INR 1.27 (0.82-1.09) H 10/05/16 19:00 - ....Imaging Chest X-ray: Report Reviewed (Bilateral effusions, CHF) Problem List - Problems (1) Acute kidney injury Code(s): N17.9 - ACUTE KIDNEY FAILURE, UNSPECIFIED (2) Atrial fibrillation, new onset Code(s): I48.91 - UNSPECIFIED ATRIAL FIBRILLATION (3) Sleep apnea Code(s): G47.30 - SLEEP APNEA, UNSPECIFIED Qualifiers: Sleep apnea type: unspecified type Qualified Code(s): G47.30 - Sleep apnea, unspecified (4) Acute on chronic diastolic (congestive) heart failure Code(s): I50.33 - ACUTE ON CHRONIC DIASTOLIC (CONGESTIVE) HEART FAILURE (5) Acute hypercapnic respiratory failure Code(s): J96.02 - ACUTE RESPIRATORY FAILURE WITH HYPERCAPNIA Assessment/Plan Echocardiography revealed mild to moderate LV systolic dysfunction, moderate TR , RVSP of 30-40 mmHg 1. Acute class III-IV NYHA classification LV failure related to systolic LV dysfunction, respiratory failure, resolving 2. Persistent atrial fibrillation with improved ventricular response, [id number] score of 2 3. Acute Hypoxic and Hypercapneic Respiratory Failure improving 4. Thrombocytopenia 5. MONIE resolved 6. OSAS PLAN: 1. Decrease IV diuresis with monitor diuretic response, renal fxn and electrolytes, replete K 2. Start carvedilol 3.125 bid as hemodynamics tolerate, d/c digoxin and IV lopressor 3. D/c Heparin and start Eliquis 5 bid 4. Ideally should be on ACEI or ARBS as hemodynamic tolerate 5. Wean sedation, BD and wean trials, GI prophylaxis, cpap as outpatient
[2016-10-09] MEDS: FENTANYL INJECTION 500 MCG in DEXTROSE 5%-WATER - 90 ML IJ SCH ×2 (10:01→20:45)
--- NOTE | 2016-10-09 12:08 | PN ---
Physical Exam: SUBJECTIVE: Patient seen and examined patient sedated and on ventilator fio2 decreased to 40 off vasopressin, mantaing a BP of 105/67 mean 75 spo2 of 94% I/o negative 1440, urine output 4100 OBJECTIVE: Vital Signs Period Temp Pulse Resp BP Sys/Clements Pulse Ox Last 24 Hr 99.8 F-100.7 F 94-131 14-24 82-131/41-92 91-94 GENERAL: sedated and intubated HEAD: Normal with no signs of trauma. EARS, NOSE, THROAT: Ears normal, nares patent, oropharynx clear without exudates. NECK: supple without lymphadenopathy, JVD, or masses. LUNGS: Breath sounds equal bilateral, . No wheezes, and ronchi present decreased since before HEART: s1s2 normal, hr irregularly irregular ABDOMEN: Soft, edema present in lower abdominal wall and scrotum, edema decreased on lower abdominal wall, scrotum still edematous UPPER EXTREMITIES: 2+ pulses, warm, well-perfused. No cyanosis. LOWER EXTREMITIES: 2+ pulses, warm, well-perfused. No calf tenderness.peripheral edema present ++ NEUROLOGICAL: unobtainable SKIN: Warm, dry, Laboratory Results - last 24 hr 10/08/16 10/09/16 10/09/16 13:35 00:00 05:05 WBC RBC Hgb Hct MCV MCHC RDW Plt Count MPV Neutrophils % Lymphocytes % Monocytes % Eosinophils % Basophils % PTT (Actin FS) 61.5 H 56.5 H Puncture Site ABG pH ABG pCO2 at Pt Temp ABG pO2 at Pt Temp ABG HCO3 ABG O2 Sat (Measured) ABG O2 Content ABG Base Excess Ye Test O2 Delivery Device Oxygen Flow Rate Vent Mode Vent Rate Mechanical Rate PEEP Pressure Support Vent Sodium 144 Potassium 3.5 Chloride 91 L Carbon Dioxide 49 H Anion Gap 4 L BUN 19 H Creatinine 1.1 Creat Clearance w eGFR > 60 Random Glucose 119 H D Calcium 7.7 L Phosphorus 3.0 Magnesium 1.9 Total Bilirubin 2.0 H AST 41 H D ALT 17 D Alkaline Phosphatase 42 L Total Protein 5.0 L Albumin 2.3 L D TSH 10/09/16 10/09/16 10/09/16 05:05 05:05 07:10 WBC 6.3 RBC 5.23 Hgb 16.6 Hct 50.9 H MCV 97.4 H MCHC 32.7 RDW 16.6 H Plt Count 98 L MPV 9.2 Neutrophils % 71.7 Lymphocytes % 9.8 Monocytes % 14.7 H Eosinophils % 3.1 Basophils % 0.7 PTT (Actin FS) Puncture Site Right radial ABG pH 7.44 ABG pCO2 at Pt Temp 69.2 H* ABG pO2 at Pt Temp 68.6 L ABG HCO3 46.3 H* ABG O2 Sat (Measured) 93.9 ABG O2 Content 22.8 H ABG Base Excess 17.0 H* Ye Test Positive O2 Delivery Device Mec.vent Oxygen Flow Rate 50% Vent Mode A/c Vent Rate 14 Mechanical Rate Yes PEEP 12.0 Pressure Support Vent 475 Sodium 143 Potassium 3.5 Chloride 90 L Carbon Dioxide 46 H Anion Gap 7 L BUN 19 H Creatinine 1.0 Creat Clearance w eGFR > 60 Random Glucose 145 H D Calcium 7.8 L Phosphorus Magnesium 2.0 Total Bilirubin 2.2 H AST 44 H ALT 18 Alkaline Phosphatase 44 L Total Protein 5.1 L Albumin 2.4 L TSH 0.77 D Active Medications Generic Name Dose Route Start Last Admin Trade Name Freq PRN Reason Stop Dose Admin Albuterol/Ipratropium 1 amp 10/06/16 00:00 10/09/16 11:31 Duoneb - NEB 1 amp QIDR LYNETTE Administration Apixaban 5 mg 10/09/16 10:30 Eliquis - PO BID LYNETTE Carvedilol 3.125 mg 10/09/16 10:30 Coreg - NGT BID LYNETTE Chlorhexidine Gluconate 1 applic 10/05/16 22:00 10/08/16 21:43 Hibiclens For Decolonization - TP 1 applic HS LYNETTE Administration Chlorhexidine Gluconate 15 ml 10/06/16 10:00 10/09/16 09:23 Peridex - MM 15 ml BID LYNETTE Administration Furosemide 40 mg 10/09/16 10:18 Lasix Injection - IVPUSH BID@0600,1400 LYNETTE Pantoprazole Sodium 100 mls @ 200 mls/hr 10/06/16 10:00 10/09/16 09:24 Protonix 40mg Ivpb (Pre-Docked) IVPB 200 mls/hr DAILY LYNETTE Administration Fentanyl 500 mcg/ Dextrose 100 mls @ 5 mls/hr 10/05/16 20:45 10/09/16 10:01 IJ 10 mls/hr TITR LYNETTE Administration 25 MCG/HR Propofol 100 mls @ 3.81 mls/hr 10/05/16 21:45 10/09/16 07:20 Diprivan - IVPB 19.051 mls/hr TITR LYNETTE Administration Protocol 5 MCG/KG/MIN Mupirocin 1 applic 10/05/16 22:00 10/09/16 09:22 Bactroban Ointment (For Decolonization) - NS 10/10/16 21:59 1 applic BID LYNETTE Administration Potassium Chloride 40 meq 10/08/16 10:00 10/09/16 09:24 Potassium Chloride Oral Liquid PO 40 meq DAILY LYNETTE Administration Potassium Chloride 40 meq 10/09/16 14:00 Potassium Chloride Oral Liquid PO 10/09/16 14:01 ONCE ONE ASSESSMENT/PLAN: This is a 60 yo M every day smoker with PMH of HTN, GERD, and obesity who presents due to testicular swelling, b/l lower leg swelling, swelling in lower part of anterior abdominal wall and worsening SOB. Acute exacerbation CHF with hypoxic hypercapnic respiratory failure continue iv lasix 60mg bid monitor i/o, maintain negative balance, todays negative 1440 2659/4100 daily weight monitor vitals, maintaing a BP of 105/67, vasopressin off follow echo : LV systolic function mild to moderately reduced on ventilator support, keep spo 2 over 90 ( fio2 40, peep decreased to 10, tv 475, ) cxr reviewed, appears to be slighly more congested since yesterday. cardiology consult appreciated. : started on coreg 3.125 bid monitor cvp Fever; follow blood, urine culture, wbc 6.3 cxr reviewed UA : no uti id consult A fib - continue with heparin drip and eventually to be transitioned to NOAC's - on coreg 3.12 bid - cardiology on case Hypotension improved off vasopressin keep MAP >65 MONIE ( cardiorenal) - improved cr 1.0 - nephrology on case - diurese with lasix 60mg bid - avoid nephrotoxic drugs - monitor creatinine Hypokalemia and hypomagnesemia replace k and mg will try to keep K around 4 FEN -diurese, avoid IV fluid -replete lytes - start on tube feed PPX: PPI, heparin drip follow blood, urine culture and ua Dispo: ICU Visit type - Emergency Visit Emergency Visit: Yes ED Registration Date: 10/05/16 Care time: The patient presented to the Emergency Department on the above date and was hospitalized for further evaluation of their emergent condition. - New Patient This patient is new to me today: No - Critical Care Critical Care patient: Yes Total Critical Care Time (in minutes): 45 Critical Care Statement: The care of this patient involved high complexity decision making to prevent further life threatening deterioration of the patient 's condition and/or to evalute & treat vital organ system(s) failure or risk of failure.
[2016-10-09] MEDS: CARVEDILOL 3.125 MG TABLET (FP) NGT SCH ×2 (12:21→22:38)
[2016-10-09] MEDS: APIXABAN 5 MG TABLET PO SCH ×2 (12:23→22:38)
--- NOTE | 2016-10-09 12:28 | PN ---
Teaching Attending Note Name of Resident: Nick Kang ATTENDING PHYSICIAN STATEMENT I saw and evaluated the patient. I reviewed the resident's note and discussed the case with the resident. I agree with the resident's findings and plan as documented. SUBJECTIVE: Pt seen and examined in the ICU. Remains intubated, sedated. Vented on volume assist control with 50% FiO2, PEEP 12, saturating mid 90s. Fevers persist. Off vasopressin gtt. OBJECTIVE: Last Vital Signs Temp Pulse Resp BP Pulse Ox 99.8 F H 112 H 14 92/61 92 L 10/09/16 10:00 10/09/16 11:00 10/09/16 11:56 10/09/16 11:00 10/09/16 11:03 Intake & Output 10/06/16 10/07/16 10/08/16 10/09/16 23:59 23:59 23:59 23:59 Intake Total 1742.0 1018 2659.4 1553.2 Output Total 7600 4600 4100 1400 Balance -5858.0 -3582 -1440.6 153.2 Weight 260 lb 1.6 oz 280 lb 4.8 oz 266 lb 5.094 oz 266 lb 6.4 oz Gen: intubated, sedated Heart: tachycardic, irregular Lung: scattered rhonchi Abd: soft, nontender Ext: + edema, scrotal edema CBC, BMP 10/09/16 05:05 10/09/16 05:05 Active Medications Albuterol/Ipratropium (Duoneb -) 1 amp NEB QIDR [facility] [place] Last Admin: 10/09/16 11:31 Dose: 1 amp Apixaban (Eliquis -) 5 mg PO BID [facility] [place] Last Admin: 10/09/16 12:23 Dose: 5 mg Carvedilol (Coreg -) 3.125 mg NGT BID [facility] [place] Last Admin: 10/09/16 12:21 Dose: 3.125 mg Chlorhexidine Gluconate (Hibiclens For Decolonization -) 1 applic TP HS [facility] [place] Last Admin: 10/08/16 21:43 Dose: 1 applic Chlorhexidine Gluconate (Peridex -) 15 ml MM BID [facility] [place] Last Admin: 10/09/16 09:23 Dose: 15 ml Furosemide (Lasix Injection -) 40 mg IVPUSH BID@0600,1400 [facility] [place] Pantoprazole Sodium (Protonix 40mg Ivpb (Pre-Docked)) 100 mls @ 200 mls/hr IVPB DAILY LYNETTE Last Admin: 10/09/16 09:24 Dose: 200 mls/hr Fentanyl 500 mcg/ Dextrose 100 mls @ 5 mls/hr IJ TITR LYNETTE PRN Reason: 25 MCG/HR Last Admin: 10/09/16 10:01 Dose: 10 mls/hr Propofol (Diprivan -) 100 mls @ 3.81 mls/hr IVPB TITR LYNETTE; 5 MCG/KG/MIN PRN Reason: Protocol Last Admin: 10/09/16 07:20 Dose: 19.051 mls/hr Mupirocin (Bactroban Ointment (For Decolonization) -) 1 applic NS BID [facility] [place] Stop: 10/10/16 21:59 Last Admin: 10/09/16 09:22 Dose: 1 applic Potassium Chloride (Potassium Chloride Oral Liquid) 40 meq PO DAILY [facility] [place] Last Admin: 10/09/16 09:24 Dose: 40 meq Potassium Chloride (Potassium Chloride Oral Liquid) 40 meq PO ONCE ONE Stop: 10/09/16 14:01 ASSESSMENT AND PLAN: Acute Hypoxic and Hypercapneic Respiratory Failure Acute on ?Chronic LV Systolic Heart Failure Pulmonary HTN Volume Overload Atrial Fibrillation with RVR Acute Kidney Injury Hyperthyroidism Fevers - f/u pending repeat cultures - will consult ID for persistent fevers - continue lasix - monitor urine output, creatinine - daily weights, I/Os - monitoring off vasopressin gtt, maintain MAP >65 - lopressor for rate control - continue anticoagulation - inhaled bronchodilators - attempt to taper FiO2, PEEP to keep SpO2 >90% - not a candidate for weaning at this time due to high oxygen requirements - enteral feeds - DVT/GI prophylaxis - continue ICU monitoring critical care time spent reviewing chart, evaluating patient and formulating plan 45 min
--- NOTE | 2016-10-09 13:14 | PN ---
Progress Note, Physician History of Present Illness: Pt seen and examined at bedside. He remains in the ICU. Pt remains intubated. He is making urine. - Current Medication List Current Medications: Active Medications Albuterol/Ipratropium (Duoneb -) 1 amp NEB QIDR [facility] Last Admin: 10/09/16 11:31 Dose: 1 amp Apixaban (Eliquis -) 5 mg PO BID [facility] Last Admin: 10/09/16 12:23 Dose: 5 mg Carvedilol (Coreg -) 3.125 mg NGT BID [facility] Last Admin: 10/09/16 12:21 Dose: 3.125 mg Chlorhexidine Gluconate (Hibiclens For Decolonization -) 1 applic TP HS [facility] Last Admin: 10/08/16 21:43 Dose: 1 applic Chlorhexidine Gluconate (Peridex -) 15 ml MM BID [facility] Last Admin: 10/09/16 09:23 Dose: 15 ml Furosemide (Lasix Injection -) 40 mg IVPUSH BID@0600,1400 [facility] Last Admin: 10/09/16 13:05 Dose: 40 mg Pantoprazole Sodium (Protonix 40mg Ivpb (Pre-Docked)) 100 mls @ 200 mls/hr IVPB DAILY [facility] Last Admin: 10/09/16 09:24 Dose: 200 mls/hr Fentanyl 500 mcg/ Dextrose 100 mls @ 5 mls/hr IJ TITR LYNETTE PRN Reason: 25 MCG/HR Last Admin: 10/09/16 10:01 Dose: 10 mls/hr Propofol (Diprivan -) 100 mls @ 3.81 mls/hr IVPB TITR LYNETTE; 5 MCG/KG/MIN PRN Reason: Protocol Last Admin: 10/09/16 12:00 Dose: 19.051 mls/hr Mupirocin (Bactroban Ointment (For Decolonization) -) 1 applic NS BID [facility] Stop: 10/10/16 21:59 Last Admin: 10/09/16 09:22 Dose: 1 applic Potassium Chloride (Potassium Chloride Oral Liquid) 40 meq PO DAILY [facility] Last Admin: 10/09/16 09:24 Dose: 40 meq Potassium Chloride (Potassium Chloride Oral Liquid) 40 meq PO ONCE ONE Stop: 10/09/16 14:01 Last Admin: 10/09/16 13:05 Dose: 40 meq - Objective Vital Signs: Vital Signs Temperature 99.8 F H 10/09/16 10:00 Pulse Rate 109 H 10/09/16 12:00 Respiratory Rate 14 10/09/16 12:00 Blood Pressure 91/67 10/09/16 12:00 O2 Sat by Pulse Oximetry (%) 92 L 10/09/16 11:03 Constitutional: Yes: No Distress Eyes: Yes: WNL Cardiovascular: Yes: S1, S2 Respiratory: Yes: Mechanically Ventilated Gastrointestinal: Yes: Soft, Abdomen, Obese Genitourinary: Yes: Hilario Present Musculoskeletal: Yes: Muscle Weakness Edema: Yes Neurological: Yes: Lethargy, Other (sedated) Labs: CBC, BMP 10/09/16 05:05 10/09/16 05:05 INR, PTT INR 1.27 (0.82-1.09) H 10/05/16 19:00 - ....Imaging Chest X-ray: Report Reviewed Problem List - Problems (1) Acute kidney injury Code(s): N17.9 - ACUTE KIDNEY FAILURE, UNSPECIFIED (2) Anasarca Code(s): R60.1 - GENERALIZED EDEMA (3) Congestive heart failure (CHF) Code(s): I50.9 - HEART FAILURE, UNSPECIFIED Qualifiers: Congestive heart failure type: combined Congestive heart failure chronicity: acute Qualified Code(s): I50.41 - Acute combined systolic ( congestive) and diastolic (congestive) heart failure (4) Morbid obesity Code(s): E66.01 - MORBID (SEVERE) OBESITY DUE TO EXCESS CALORIES (5) Renal insufficiency Code(s): N28.9 - DISORDER OF KIDNEY AND URETER, UNSPECIFIED Assessment/Plan Current Medications Generic Name Dose Route Start Last Admin Trade Name Freq PRN Reason Stop Dose Admin Albuterol/Ipratropium 1 amp 10/06/16 00:00 10/09/16 11:31 Duoneb - NEB 1 amp QIDR LYNETTE Administration Apixaban 5 mg 10/09/16 10:30 10/09/16 12:23 Eliquis - PO 5 mg BID LYNETTE Administration Carvedilol 3.125 mg 10/09/16 10:30 10/09/16 12:21 Coreg - NGT 3.125 mg BID LYNETTE Administration Chlorhexidine Gluconate 1 applic 10/05/16 22:00 10/08/16 21:43 Hibiclens For Decolonization - TP 1 applic HS LYNETTE Administration Chlorhexidine Gluconate 15 ml 10/06/16 10:00 10/09/16 09:23 Peridex - MM 15 ml BID LYNETTE Administration Furosemide 40 mg 10/09/16 10:18 10/09/16 13:05 Lasix Injection - IVPUSH 40 mg BID@0600,1400 LYNETTE Administration Pantoprazole Sodium 100 mls @ 200 mls/hr 10/06/16 10:00 10/09/16 09:24 Protonix 40mg Ivpb (Pre-Docked) IVPB 200 mls/hr DAILY LYNETTE Administration Fentanyl 500 mcg/ Dextrose 100 mls @ 5 mls/hr 10/05/16 20:45 10/09/16 10:01 IJ 10 mls/hr TITR LYNETTE Administration 25 MCG/HR Propofol 100 mls @ 3.81 mls/hr 10/05/16 21:45 10/09/16 12:00 Diprivan - IVPB 19.051 mls/hr TITR LYNETTE Administration Protocol 5 MCG/KG/MIN Mupirocin 1 applic 10/05/16 22:00 10/09/16 09:22 Bactroban Ointment (For Decolonization) - NS 10/10/16 21:59 1 applic BID LYNETTE Administration Potassium Chloride 40 meq 10/08/16 10:00 10/09/16 09:24 Potassium Chloride Oral Liquid PO 40 meq DAILY LYNETTE Administration Potassium Chloride 40 meq 10/09/16 14:00 10/09/16 13:05 Potassium Chloride Oral Liquid PO 10/09/16 14:01 40 meq ONCE ONE Administration Impression 1. Azotemia 2. CHF acute 3. acute resp failure requiring intubation 4. new onset atrial fibrillation 5. hx of htn 6. obesity 7. chronic smoker 8. hypokalemia Plan - renal function is stable - cont with diuretics - keep pt at negative balance - cxr reviewed, repeat in am - discussed with ICU team - monitor potassium - weaning as per pulmonary - will follow Dr Delacruz
--- NOTE | 2016-10-09 13:53 | PN ---
Progress Note (short form) - Note Progress Note: ID Consult dictated Low grade fever, unclear source Respiratory failure CHF S/P rapid Afib Thrombocytopenia No clear focus for low grade fever WBC WNL; cultures negative Observe off antibiotics
[2016-10-09] MEDS ORDERED: POTASSIUM CHLORIDE ORAL LIQUID 20 MEQ/15 ML PO ONE (14:00)
--- NOTE | 2016-10-09 15:47 | PN ---
Addendum entered and electronically signed by Hillary Reyes RES 10/09/16 19: 08: triple lumen not changed still L IJ patent Original Note: Physical Exam: SUBJECTIVE: Patient seen and examined Patient resting in bed, intubated, sedated. minimally wakeful. still running low grade fever day 2. urine output 4100 after 120 mg iv lasix yesterday, another 1400cc ovenight. achieved negative fluid balance of 1440 BP 82/52 map 62. CVP 10, in A fib rate 113, O2 sat 92% Vent setting 14/475/40/50/12/5. weaned off vasopressin, on Fentanyl @50, Propofol @ 25. OBJECTIVE: Vital Signs Period Temp Pulse Resp BP Sys/Clements Pulse Ox Last 24 Hr 99.8 F-100.7 F 94-131 14-24 82-131/41-92 91-94 GENERAL: sedated overall less edematous HEAD: Normal with no signs of trauma, obese EYES: pinpoint EARS, NOSE, THROAT: Moist mucous membranes. NECK: supple + JVD LUNGS: reduced breath sounds at bases HEART: tachy, irregular ABDOMEN: less distended, 1+ edema, moderately erythematous, reduced bowel sounds MUSCULOSKELETAL: No bony deformities UPPER EXTREMITIES: 2+ pulses, mild peripheral edema. LOWER EXTREMITIES: 1+ pulses, 3+ pitting edema improved, chronic stasis dermatitis b/l NEUROLOGICAL: grossly symmetrical face PSYCHIATRIC: unable to assess SKIN: Warm, dry Laboratory Results - last 24 hr 10/09/16 10/09/16 10/09/16 00:00 05:05 05:05 WBC 6.3 RBC 5.23 Hgb 16.6 Hct 50.9 H MCV 97.4 H MCHC 32.7 RDW 16.6 H Plt Count 98 L MPV 9.2 Neutrophils % 71.7 Lymphocytes % 9.8 Monocytes % 14.7 H Eosinophils % 3.1 Basophils % 0.7 PTT (Actin FS) 56.5 H Puncture Site ABG pH ABG pCO2 at Pt Temp ABG pO2 at Pt Temp ABG HCO3 ABG O2 Sat (Measured) ABG O2 Content ABG Base Excess Ye Test O2 Delivery Device Oxygen Flow Rate Vent Mode Vent Rate Mechanical Rate PEEP Pressure Support Vent Sodium 144 Potassium 3.5 Chloride 91 L Carbon Dioxide 49 H Anion Gap 4 L BUN 19 H Creatinine 1.1 Creat Clearance w eGFR > 60 Random Glucose 119 H D Calcium 7.7 L Phosphorus 3.0 Magnesium 1.9 Total Bilirubin 2.0 H AST 41 H D ALT 17 D Alkaline Phosphatase 42 L Total Protein 5.0 L Albumin 2.3 L D TSH 10/09/16 10/09/16 05:05 07:10 WBC RBC Hgb Hct MCV MCHC RDW Plt Count MPV Neutrophils % Lymphocytes % Monocytes % Eosinophils % Basophils % PTT (Actin FS) Puncture Site Right radial ABG pH 7.44 ABG pCO2 at Pt Temp 69.2 H* ABG pO2 at Pt Temp 68.6 L ABG HCO3 46.3 H* ABG O2 Sat (Measured) 93.9 ABG O2 Content 22.8 H ABG Base Excess 17.0 H* Ye Test Positive O2 Delivery Device Mec.vent Oxygen Flow Rate 50% Vent Mode A/c Vent Rate 14 Mechanical Rate Yes PEEP 12.0 Pressure Support Vent 475 Sodium 143 Potassium 3.5 Chloride 90 L Carbon Dioxide 46 H Anion Gap 7 L BUN 19 H Creatinine 1.0 Creat Clearance w eGFR > 60 Random Glucose 145 H D Calcium 7.8 L Phosphorus Magnesium 2.0 Total Bilirubin 2.2 H AST 44 H ALT 18 Alkaline Phosphatase 44 L Total Protein 5.1 L Albumin 2.4 L TSH 0.77 D Active Medications Generic Name Dose Route Start Last Admin Trade Name Paoloq PRN Reason Stop Dose Admin Albuterol/Ipratropium 1 amp 10/06/16 00:00 10/09/16 11:31 Duoneb - NEB 1 amp QIDR LYNETTE Administration Apixaban 5 mg 10/09/16 10:30 10/09/16 12:23 Eliquis - PO 5 mg BID LYNETTE Administration Carvedilol 3.125 mg 10/09/16 10:30 10/09/16 12:21 Coreg - NGT 3.125 mg BID LYNETTE Administration Chlorhexidine Gluconate 1 applic 10/05/16 22:00 10/08/16 21:43 Hibiclens For Decolonization - TP 1 applic HS LYNETTE Administration Chlorhexidine Gluconate 15 ml 10/06/16 10:00 10/09/16 09:23 Peridex - MM 15 ml BID LYNETTE Administration Furosemide 40 mg 10/09/16 10:18 10/09/16 13:05 Lasix Injection - IVPUSH 40 mg BID@0600,1400 LYNETTE Administration Pantoprazole Sodium 100 mls @ 200 mls/hr 10/06/16 10:00 10/09/16 09:24 Protonix 40mg Ivpb (Pre-Docked) IVPB 200 mls/hr DAILY LYNETTE Administration Fentanyl 500 mcg/ Dextrose 100 mls @ 5 mls/hr 10/05/16 20:45 10/09/16 10:01 IJ 10 mls/hr TITR LYNTETE Administration 25 MCG/HR Propofol 100 mls @ 3.81 mls/hr 10/05/16 21:45 10/09/16 15:14 Diprivan - IVPB 19.051 mls/hr TITR LYNETTE Administration Protocol 5 MCG/KG/MIN Mupirocin 1 applic 10/05/16 22:00 10/09/16 09:22 Bactroban Ointment (For Decolonization) - NS 10/10/16 21:59 1 applic BID LYNETTE Administration Potassium Chloride 40 meq 10/08/16 10:00 10/09/16 09:24 Potassium Chloride Oral Liquid PO 40 meq DAILY LYNETTE Administration ASSESSMENT/PLAN: This is a 60 yo M every day smoker with PMH of HTN, GERD, and obesity who presents due to testicular swelling x 1 W and worsening SOB. Acute decompensated CHF -NYHA class III-IV -severe fluid overload, anasarca -s/p 120mg lasix IV yesterday; -negative fluid balance -duplex LE negative -TTE mild/mod reduced EF, mild pulm HTN, RVP 30-40, global mild/mod LV hypokinesis worse than 05/06/16 -CXR AM bases more effusion, possible RML infiltrate -cardio consult appreciated: -coreg 3.125 bid po -lasix 40 BID -stop digitalis -strict I and O -daily weight -am xray -abg appreciated, co2 retention, hypoxia -tele monitoring a fib -icu monitoring -wean off sedation Fever -CT chest ordered on 10/06 -if fever persists, will order chest CT and start zosyn, vanco. -sputum, blood cultures p/d Hypotension -now off pressors A fib -eliquis -stopped Asa 81 Hyperthyroid -possibly incidental effect of amiodarone -tsh 0.29; repeat 0.77 normal -ft4 1.77 -fT3 1.9 -no treatment indicated at this time MONIE -creat 1 (baseline 0.9 in apr) -cardiorenal -renal consult appreciated -diurese Acute hypoxic respiratory failure -intubated -keep FIO2 >88 -daily weaning FEN -diurese -replete lytes -npo PPX: PPI, noac Dispo: ICU Problem List - Problems (1) Acute respiratory failure requiring reintubation Code(s): J96.00 - ACUTE RESPIRATORY FAILURE, UNSP W HYPOXIA OR HYPERCAPNIA (2) Atrial fibrillation, new onset Code(s): I48.91 - UNSPECIFIED ATRIAL FIBRILLATION (3) Congestive heart failure (CHF) Code(s): I50.9 - HEART FAILURE, UNSPECIFIED Qualifiers: Congestive heart failure type: combined Congestive heart failure chronicity: acute Qualified Code(s): I50.41 - Acute combined systolic ( congestive) and diastolic (congestive) heart failure (4) Edema of scrotum Code(s): N50.89 - OTHER SPECIFIED DISORDERS OF THE MALE GENITAL ORGANS (5) Lymphedema of both lower extremities Code(s): I89.0 - LYMPHEDEMA, NOT ELSEWHERE CLASSIFIED (6) Morbid obesity Code(s): E66.01 - MORBID (SEVERE) OBESITY DUE TO EXCESS CALORIES (7) Renal insufficiency Code(s): N28.9 - DISORDER OF KIDNEY AND URETER, UNSPECIFIED (8) Sleep apnea Code(s): G47.30 - SLEEP APNEA, UNSPECIFIED Qualifiers: Sleep apnea type: unspecified type Qualified Code(s): G47.30 - Sleep apnea, unspecified (9) Acute kidney injury Code(s): N17.9 - ACUTE KIDNEY FAILURE, UNSPECIFIED (10) Anasarca Code(s): R60.1 - GENERALIZED EDEMA Visit type - Emergency Visit Emergency Visit: Yes ED Registration Date: 10/05/16 Care time: The patient presented to the Emergency Department on the above date and was hospitalized for further evaluation of their emergent condition. - New Patient This patient is new to me today: No - Critical Care Critical Care patient: Yes Total Critical Care Time (in minutes): 51 Critical Care Statement: The care of this patient involved high complexity decision making to prevent further life threatening deterioration of the patient 's condition and/or to evalute & treat vital organ system(s) failure or risk of failure. - Discharge Referral Referred to [facility] No
--- NOTE | 2016-10-09 15:49 | PROC ---
Procedure Note Procedure: central line L IJ Central Line Insertion Indication: CVP Monitoring, Vasopressor Risks and Benefits Explained: No Consent on Chart: No (Was unconscious/emergent ) Central Line: Triple Lumen Catheter Anesthesia: 1% Lidocaine Sterile Technique: Yes Ultrasound Guided Assistance: Yes Position: Left Internal Jugular Post Insertion: Yes: Bilateral Breath Sounds, Chest X-Ray Ordered Sterile Dressing Applied: Yes Remarks: done on 10/05/16
--- NOTE | 2016-10-09 15:54 | MSN ---
Progress Note (short form) - Note Progress Note: 60 yo male presented to ER 04 November for testicular swelling X 1 1/2 wks and increasing shortness of breath; he was diagnosed with new onset Afib, B/L LE lymphedema and edema of the scrotum. PMH sig for HTN, GERD, obesity and cigarette smoke. Pt. intubated in ICU. Patient had a neg balance of -1.2 L on 60 mg IV lasix BID. Current vent settings are 14/475/40/50/12/5. Last Vital Signs Temp Pulse Resp BP Pulse Ox 100.0 F H 101 H 14 106/70 94 L 10/09/16 15:00 10/09/16 15:00 10/09/16 15:20 10/09/16 15:00 10/09/16 15:20 Intake & Output 10/06/16 10/07/16 10/08/16 10/09/16 23:59 23:59 23:59 23:59 Intake Total 1742.0 1018 2659.4 1773.2 Output Total 7600 4600 4100 3000 Balance -5858.0 -3582 -1440.6 -1226.8 Weight 260 lb 1.6 oz 280 lb 4.8 oz 266 lb 5.094 oz 266 lb 6.4 oz Laboratory Results - last 24 hr 10/09/16 10/09/16 10/09/16 00:00 05:05 05:05 WBC 6.3 RBC 5.23 Hgb 16.6 Hct 50.9 H MCV 97.4 H MCHC 32.7 RDW 16.6 H Plt Count 98 L MPV 9.2 Neutrophils % 71.7 Lymphocytes % 9.8 Monocytes % 14.7 H Eosinophils % 3.1 Basophils % 0.7 PTT (Actin FS) 56.5 H Puncture Site ABG pH ABG pCO2 at Pt Temp ABG pO2 at Pt Temp ABG HCO3 ABG O2 Sat (Measured) ABG O2 Content ABG Base Excess Ye Test O2 Delivery Device Oxygen Flow Rate Vent Mode Vent Rate Mechanical Rate PEEP Pressure Support Vent Sodium 144 Potassium 3.5 Chloride 91 L Carbon Dioxide 49 H Anion Gap 4 L BUN 19 H Creatinine 1.1 Creat Clearance w eGFR > 60 Random Glucose 119 H D Calcium 7.7 L Phosphorus 3.0 Magnesium 1.9 Total Bilirubin 2.0 H AST 41 H D ALT 17 D Alkaline Phosphatase 42 L Total Protein 5.0 L Albumin 2.3 L D TSH 10/09/16 10/09/16 05:05 07:10 WBC RBC Hgb Hct MCV MCHC RDW Plt Count MPV Neutrophils % Lymphocytes % Monocytes % Eosinophils % Basophils % PTT (Actin FS) Puncture Site Right radial ABG pH 7.44 ABG pCO2 at Pt Temp 69.2 H* ABG pO2 at Pt Temp 68.6 L ABG HCO3 46.3 H* ABG O2 Sat (Measured) 93.9 ABG O2 Content 22.8 H ABG Base Excess 17.0 H* Ye Test Positive O2 Delivery Device Mec.vent Oxygen Flow Rate 50% Vent Mode A/c Vent Rate 14 Mechanical Rate Yes PEEP 12.0 Pressure Support Vent 475 Sodium 143 Potassium 3.5 Chloride 90 L Carbon Dioxide 46 H Anion Gap 7 L BUN 19 H Creatinine 1.0 Creat Clearance w eGFR > 60 Random Glucose 145 H D Calcium 7.8 L Phosphorus Magnesium 2.0 Total Bilirubin 2.2 H AST 44 H ALT 18 Alkaline Phosphatase 44 L Total Protein 5.1 L Albumin 2.4 L TSH 0.77 D Imaging: Chest x-ray on 10/09/16 demonstrated large heart, unfolded Aorta; Increasing density in the right lung field. There is B/L effusions w/ infiltrate ; it is slightly worsened compared to last report. Current Medications Generic Name Dose Route Start Last Admin Trade Name Freq PRN Reason Stop Dose Admin Albuterol/Ipratropium 1 amp 10/06/16 00:00 10/09/16 11:31 Duoneb - NEB 1 amp QIDR LYNETTE Administration Apixaban 5 mg 10/09/16 10:30 10/09/16 12:23 Eliquis - PO 5 mg BID LYNETTE Administration Carvedilol 3.125 mg 10/09/16 10:30 10/09/16 12:21 Coreg - NGT 3.125 mg BID LYNETTE Administration Chlorhexidine Gluconate 1 applic 10/05/16 22:00 10/08/16 21:43 Hibiclens For Decolonization - TP 1 applic HS LYNETTE Administration Chlorhexidine Gluconate 15 ml 10/06/16 10:00 10/09/16 09:23 Peridex - MM 15 ml BID LYNETTE Administration Furosemide 40 mg 10/09/16 10:18 10/09/16 13:05 Lasix Injection - IVPUSH 40 mg BID@0600,1400 LYNETTE Administration Pantoprazole Sodium 100 mls @ 200 mls/hr 10/06/16 10:00 10/09/16 09:24 Protonix 40mg Ivpb (Pre-Docked) IVPB 200 mls/hr DAILY LYNETTE Administration Fentanyl 500 mcg/ Dextrose 100 mls @ 5 mls/hr 10/05/16 20:45 10/09/16 10:01 IJ 10 mls/hr TITR LYNETTE Administration 25 MCG/HR Propofol 100 mls @ 3.81 mls/hr 10/05/16 21:45 10/09/16 15:14 Diprivan - IVPB 19.051 mls/hr TITR LYNETTE Administration Protocol 5 MCG/KG/MIN Mupirocin 1 applic 10/05/16 22:00 10/09/16 09:22 Bactroban Ointment (For Decolonization) - NS 10/10/16 21:59 1 applic BID LYNETTE Administration Potassium Chloride 40 meq 10/08/16 10:00 10/09/16 09:24 Potassium Chloride Oral Liquid PO 40 meq DAILY LYNETTE Administration All Active Problems Abrasion hip/leg (Acute) Acute hypercapnic respiratory failure (Acute) Acute kidney injury (Acute) Acute on chronic diastolic (congestive) heart failure (Acute) Acute respiratory failure requiring reintubation (Acute) Anasarca (Acute) Atrial fibrillation, new onset (Acute) Cellulitis (Acute) Congestive heart failure (CHF) (Acute) Edema of scrotum (Acute) Lymphedema of both lower extremities (Acute) Morbid obesity (Acute) Renal insufficiency (Acute) Sleep apnea (Acute) General: Sedated on ventilation; pt asleep during examination Head: Normocephalic Neck: Neg JVD Heart: Normal S1 and S2 Lungs: Rales B/L lower lobes Abdomen: Distended and edematous; no TTP; BS normocephalic; no guarding : Testicular edema B/L; neg infection at maxwell site MSK: Pitting edema LE 1+; peripheral pulse 2+; B/L venous stasis LE Assessment & Plan: 60 yo male every day smoker with HTN, GERD, Obesity, testicular swelling and shortness of breath; diagnosed with new onset Afib, B/L lower extremity edema and edema of scrotum 1) Acute exacerbation CHF with hypoxic respiratory failure: Continue IV lasix 60 BID; Give one time dose of 40 mg IVP lasix monitor i/o , mainatin neg fluid balance; daily weight, vitals; monitor CVP Continue metoprolol 2.5 IVP d/c Aspirin Add Apixaban - 5 mg PO BID 2) Afib: Continue Digoxin @ 0.25 mg daqily IVP D/C Heparin 3) Hypotension: Continue monitoring MAP; D/C vasopressin 4) MONIE (cardiorenal) - continue duresing with Lasix 60 mg BID, avoid nephrotoxic drugs, monitor creatinine 5) Hypokalemia/Hypomagnesia - Continue potassium chloride @ 40 meq PO ; try to keep potassium above 4 6) continue Pantoprozole Sodium - 40 mg IVP for prophylaxis against sepsis. Problem List - Problems (1) Congestive heart failure (CHF) Code(s): I50.9 - HEART FAILURE, UNSPECIFIED Qualifiers: Qualified Code(s): I50.41 - Acute combined systolic (congestive) and diastolic (congestive) heart failure (2) Acute respiratory failure requiring reintubation Code(s): J96.00 - ACUTE RESPIRATORY FAILURE, UNSP W HYPOXIA OR HYPERCAPNIA (3) Atrial fibrillation, new onset Code(s): I48.91 - UNSPECIFIED ATRIAL FIBRILLATION (4) Renal insufficiency Code(s): N28.9 - DISORDER OF KIDNEY AND URETER, UNSPECIFIED (5) Acute kidney injury Code(s): N17.9 - ACUTE KIDNEY FAILURE, UNSPECIFIED (6) Anasarca Code(s): R60.1 - GENERALIZED EDEMA (7) Cellulitis Code(s): L03.90 - CELLULITIS, UNSPECIFIED Qualifiers: Qualified Code(s): L03.115 - Cellulitis of right lower limb (8) Edema of scrotum Code(s): N50.89 - OTHER SPECIFIED DISORDERS OF THE MALE GENITAL ORGANS (9) Lymphedema of both lower extremities Code(s): I89.0 - LYMPHEDEMA, NOT ELSEWHERE CLASSIFIED (10) Morbid obesity Code(s): E66.01 - MORBID (SEVERE) OBESITY DUE TO EXCESS CALORIES (11) Sleep apnea Code(s): G47.30 - SLEEP APNEA, UNSPECIFIED Qualifiers: Qualified Code(s): G47.30 - Sleep apnea, unspecified
--- NOTE | 2016-10-09 19:27 | CONS ---
DATE OF CONSULTATION: 10/09/2016 INFECTIOUS DISEASE CONSULTATION HISTORY OF PRESENT ILLNESS: The patient is a 60-year-old male evaluated for a low grade fever. History was obtained from the chart, as he cannot give a history secondary to his present state, he is intubated in the intensive care unit. The patient was seen as an outpatient prior to admission with testicular swelling, which became progressively worse over the 1.5 weeks prior to admission. He also experienced lower extremity swelling and dyspnea. The testicular swelling became so severe as to limit his ambulation and made sitting difficult. He presented to the emergency room where his course was complicated by rapid atrial fibrillation, new onset. Patient developed respiratory failure and was intubated. He was transferred to the intensive care unit. At the present time he is intubated in the ICU. His course has been complicated by low-grade fever. Cultures have been obtained, and have been negative. His white blood cell count is normal. Chest x-ray shows bilateral infiltrates consistent with decompensated congestive heart failure. No reports of high grade fever, shaking chills, purulent tracheal secretions, recent vomiting, diarrhea, or dysuria. PAST MEDICAL HISTORY: Positive for morbid obesity, obstructive sleep apnea, new onset atrial fibrillation, gastroesophageal reflux, hypertension. ALLERGIES: No known allergies. MEDICATION: Eliquis, DuoNeb, Coreg, propofol, Lasix, fentanyl, Protonix. SOCIAL HISTORY: He lives at home. Positive history of tobacco use. No history of alcohol abuse. SYSTEMS REVIEW: Neurologic: No loss of consciousness, seizure activity, or focal weakness. Cardiac: As per HPI. Respiratory: As per HPI. Gastrointestinal: Negative vomiting or diarrhea. Genitourinary: Negative for urinary tract infection. LABORATORY DATA: White count 6.3, hematocrit 50.9, platelet count 98. BUN 19, creatinine 1.0, total bilirubin 2.2, alkaline phosphatase 44, AST 44. Urinalysis 3 white cells. Chest x-ray shows increased markings bilaterally, right greater than left, blood and urine cultures negative. PHYSICAL EXAMINATION: General: He is intubated, responsive, in no acute distress. Vital signs: Temperature 99.8, T-max 100, blood pressure 91/67, pulse 108 irregular, respirations 18 per minute. HEENT: Sclerae anicteric. Patient is orally intubated. Cardiovascular: Heart sounds irregular. S1, S2. Respiratory: Lungs air entry bilaterally. Abdomen: Obese. Soft. Nontender. Positive scrotal edema. 3+ lower extremity edema bilaterally. IMPRESSION: 1. Low grade fever, unclear source. 2. Respiratory failure. 3. Decompensated congestive heart failure. 4. Status post rapid atrial fibrillation. 5. Azotemia. 6. Thrombocytopenia. Source of low grade fever not clear. Cultures have been negative. White blood cell count is normal. In the absence of clear infectious focus, will observe off antibiotic therapy, await culture results. Should patient develop higher grade fever or worsening clinical status, will empirically start antibiotics. For now will observe . Case discussed with house staff. Thank you for the kind referral. ALICIA RODRIGUEZ M.D. [id number]
[2016-10-09] MEDS ORDERED: PT OWN MED DRAWER 7, Y5N ONE (22:24)
[2016-10-09] MEDS: POLYETHYLENE GLYCOL 3350 119 GM BTL PO SCH (22:38)
[2016-10-09] MEDS: CHLORHEXIDINE GLUCONATE 4% CLEANSER FOR DECOLONIZATION TP SCH (22:39)
[2016-10-09] MEDS ORDERED: VASOPRESSIN 50 UNITS in SODIUM CHLORIDE 97.5 ML IVPB SCH (23:00)
[2016-10-10] MEDS: FUROSEMIDE 40 MG/4 ML INJECTABLE VIAL IVPUSH SCH ×2 (05:08→13:21)
[2016-10-10 06:44] LABS: BASOPHIL 0.8 % (0-2.0); EOSINOPHIL 4.9 % (0-4.5); MCH 32.4 pg (25.7-33.7); MCHC 33.1 g/dl (32.0-35.9); MEAN CELL VOLUME 97.7 fl (80-96); MEAN PLT VOLUME 9.5 fl (7.5-11.1); NEUTROPHILS 68.9 % (42.8-82.8); PLATELET COUNT 99 K/MM3 (134-434); RDW 16.6 % (11.9-15.9); WHITE BLOOD COUNT 5.8 K/mm3 (4.0-10.0)
[2016-10-10] MEDS: ALBUTEROL SO4 2.5/IPRATROPIUM 0.5 INH SOL 3 ML VIAL.NEB. NEB SCH ×3 (07:02→17:20)
[2016-10-10 07:17] LABS: CALCIUM 8.2 mg/dL (8.5-10.1)
[2016-10-10 07:18] LABS: COCKROFT - GAULT 164.18; CREATININE 0.8 mg/dL (0.7-1.3); PHOSPHOROUS 2.5 mg/dL (2.5-4.9)
[2016-10-10] MEDS: FENTANYL INJECTION 500 MCG in DEXTROSE 5%-WATER - 90 ML IJ SCH (07:45)
[2016-10-10 08:33] LABS: ARTERIAL BLD GAS O2 SATURATION 94.5 % (90-98.9); ARTERIAL BLOOD GAS BASE EXCESS 16.2 meq/l (-2-2); ARTERIAL BLOOD GAS pH 7.44 (7.35-7.45)
[2016-10-10 08:34] LABS: ALLENS TEST POSITIVE; ART PUNCT SITE RIGHT RADIAL; LPM/O2% 60%; MECH. VENT. ESPRIT; PT. ON O2? YES; TYPE OF O2 MEC.VENT; VENT RATE 14; VT/PRESS 475
[2016-10-10 08:35] LABS: ARTERIAL BLOOD GAS HCO3 45.2 meq/L (22-26); ARTERIAL BLOOD GAS PO2 72.1 mmHg (80-100)
[2016-10-10] MEDS ORDERED: PIPERACILLIN/TAZOB 3.375 GM 50 ML IVPB ONE (08:45)
[2016-10-10] MEDS ORDERED: PT OWN MED DRAWER 7, Y5N ONE (08:53)
[2016-10-10] MEDS ORDERED: VANCOMYCIN 1 GRAM (PRE-DOCKED) 250 ML IVPB ONE (09:00)
[2016-10-10] MEDS: MUPIROCIN 2% TOPICAL OINTMENT FOR DECOLONIZATION NS SCH (09:15)
[2016-10-10] MEDS: CARVEDILOL 3.125 MG TABLET (FP) NGT SCH ×2 (09:15→22:00)
[2016-10-10] MEDS: APIXABAN 5 MG TABLET PO SCH ×2 (09:16→22:00)
[2016-10-10] MEDS: CHLORHEXIDINE GLUCONATE 0.12% 15ML CUP MM SCH ×2 (09:16→22:00)
[2016-10-10] MEDS: PANTOPRAZOLE SODIUM 100 ML IVPB SCH (09:17)
[2016-10-10] MEDS: POTASSIUM CHLORIDE ORAL LIQUID 20 MEQ/15 ML PO SCH (09:17)
--- NOTE | 2016-10-10 09:18 | PN ---
Progress Note (short form) - Note Progress Note: Pt is intubated, sedated Opens eyes to stimuli Vital Signs Period Temp Pulse Resp BP Sys/Clements Pulse Ox Last 24 Hr 99.8 F-100.7 F 94-113 14-15 80-120/54-87 92-94 PE: Intubated, sedated Neck:Supple Lungs: CTA Abd: Benign CVS: S1S2 Ext: stasis changes, edema present Neuro: opens eyes to stimuli CMP Sodium 145 mmol/L (136-145) 10/10/16 05:30 Potassium 3.4 mmol/L (3.5-5.1) L 10/10/16 05:30 Chloride 94 mmol/L (98-107) L 10/10/16 05:30 Carbon Dioxide 42 mmol/L (21-32) H 10/10/16 05:30 Anion Gap 9 (8-16) 10/10/16 05:30 BUN 21 mg/dL (7-18) H 10/10/16 05:30 Creatinine 0.8 mg/dL (0.7-1.3) 10/10/16 05:30 Creat Clearance w eGFR > 60 (>60) 10/09/16 05:05 Random Glucose 138 mg/dL (74-106) H 10/10/16 05:30 Lactic Acid 1.162 mmol/L (0.4-2.0) 10/06/16 05:20 Calcium 8.2 mg/dL (8.5-10.1) L 10/10/16 05:30 Phosphorus 2.5 mg/dL (2.5-4.9) 10/10/16 05:30 Magnesium 2.0 mg/dL (1.8-2.4) 10/10/16 05:30 Total Bilirubin 2.2 mg/dL (0.2-1.0) H 10/09/16 05:05 AST 44 U/L (15-37) H 10/09/16 05:05 ALT 18 U/L (12-78) 10/09/16 05:05 Alkaline Phosphatase 44 U/L (45-117) L 10/09/16 05:05 Creatine Kinase 493 IU/L (39-308) H D 10/07/16 05:55 Creatine Kinase Index 0.7 % (0.0-5.0) 10/07/16 05:55 CK-MB (CK-2) 3.259 ng/ml (0.5-3.6) 10/07/16 05:55 CK-MB (CK-2) Rel Index Cancelled 10/05/16 11:20 Troponin I < 0.02 ng/ml (0.00-0.05) 10/07/16 05:55 B-Natriuretic Peptide 1613.37 pg/ml (5-125) H 10/05/16 11:20 Total Protein 5.1 g/dl (6.4-8.2) L 10/09/16 05:05 Albumin 2.4 g/dl (3.4-5.0) L 10/09/16 05:05 Triglycerides 140 mg/dL (35-160) D 10/08/16 05:20 Cholesterol 112 mg/dL (50-200) 10/08/16 05:20 Total LDL Cholesterol 78 mg/dL (5-100) 10/08/16 05:20 HDL Cholesterol 28 mg/dL (40-60) L D 10/08/16 05:20 TSH 0.77 uIU/ml (0.358-3.74) D 10/09/16 05:05 Free T4 1.77 ng/dl (0.76-1.16) H 10/06/16 05:20 Free T3 2.0 pg/ml (2.0-4.4) 10/09/16 05:05 Current Medications Generic Name Dose Route Start Last Admin Trade Name Freq PRN Reason Stop Dose Admin Albuterol/Ipratropium 1 amp 10/06/16 00:00 10/10/16 07:02 Duoneb - NEB 1 amp QIDR LYNETTE Administration Apixaban 5 mg 10/09/16 10:30 10/09/16 22:38 Eliquis - PO 5 mg BID LYNETTE Administration Carvedilol 3.125 mg 10/09/16 10:30 10/09/16 22:38 Coreg - NGT 3.125 mg BID LYNETTE Administration Chlorhexidine Gluconate 1 applic 10/05/16 22:00 10/09/16 22:39 Hibiclens For Decolonization - TP 1 applic HS LYNETTE Administration Chlorhexidine Gluconate 15 ml 10/06/16 10:00 10/09/16 22:38 Peridex - MM 15 ml BID LYNETTE Administration Furosemide 40 mg 10/09/16 10:18 10/10/16 05:08 Lasix Injection - IVPUSH 40 mg BID@0600,1400 LYNETTE Administration Pantoprazole Sodium 100 mls @ 200 mls/hr 10/06/16 10:00 10/09/16 09:24 Protonix 40mg Ivpb (Pre-Docked) IVPB 200 mls/hr DAILY LYNETTE Administration Fentanyl 500 mcg/ Dextrose 100 mls @ 5 mls/hr 10/05/16 20:45 10/10/16 07:45 IJ 10 mls/hr TITR LYNETTE Administration 25 MCG/HR Propofol 100 mls @ 3.81 mls/hr 10/05/16 21:45 10/09/16 21:45 Diprivan - IVPB 19.051 mls/hr TITR LYNETTE Administration Protocol 5 MCG/KG/MIN Vasopressin 50 units/ Sodium 100 mls @ 4 mls/hr 10/09/16 23:00 10/10/16 01:57 Chloride IVPB 1 units/hr ASDIR LYNETTE Titration Protocol 2 UNITS/HR Vancomycin HCl 250 mls @ 166.667 mls/hr 10/10/16 09:00 Vancomycin (Pre-Docked) IVPB 10/10/16 10:29 ONCE ONE Protocol Magnesium Oxide 400 mg 10/10/16 10:00 Mag-Ox - PO 10/10/16 10:01 ONCE ONE Mupirocin 1 applic 10/05/16 22:00 10/09/16 22:39 Bactroban Ointment (For Decolonization) - NS 10/10/16 21:59 1 applic BID LYNETTE Administration Polyethylene Glycol 17 gm 10/09/16 22:00 10/09/16 22:38 Miralax (For Daily Use) - PO 17 gm BID LYNETTE Administration Potassium Chloride 40 meq 10/08/16 10:00 10/09/16 09:24 Potassium Chloride Oral Liquid PO 40 meq DAILY LYNETTE Administration Potassium Chloride 40 meq 10/10/16 14:00 Potassium Chloride Oral Liquid PO 10/10/16 14:01 ONCE ONE AP: Abnormal TFT: Repeat TSH WNL FT3, TPO WNL TSI Pending Will f/u CHF Respiratory failure: Intubated, sedated Will f/u Problem List - Problems (1) Atrial fibrillation, new onset Code(s): I48.91 - UNSPECIFIED ATRIAL FIBRILLATION (2) Congestive heart failure (CHF) Code(s): I50.9 - HEART FAILURE, UNSPECIFIED Qualifiers: Congestive heart failure type: combined Congestive heart failure chronicity: acute Qualified Code(s): I50.41 - Acute combined systolic ( congestive) and diastolic (congestive) heart failure
[2016-10-10] MEDS: POLYETHYLENE GLYCOL 3350 119 GM BTL PO SCH ×2 (09:23→22:30)
[2016-10-10] MEDS ORDERED: MAGNESIUM OXIDE 400 MG TABLET (FP) PO ONE (10:00)
--- NOTE | 2016-10-10 10:20 | PN ---
Progress Note, Physician History of Present Illness: Arousable on vent, weaned off vasopressin, remains in afib, CXR worsened with increased weight and low grade fevers. - Current Medication List Current Medications: Active Medications Albuterol/Ipratropium (Duoneb -) 1 amp NEB QIDR [facility] Last Admin: 10/10/16 07:02 Dose: 1 amp Apixaban (Eliquis -) 5 mg PO BID [facility] Last Admin: 10/10/16 09:16 Dose: 5 mg Carvedilol (Coreg -) 3.125 mg NGT BID [facility] Last Admin: 10/10/16 09:15 Dose: 3.125 mg Chlorhexidine Gluconate (Hibiclens For Decolonization -) 1 applic TP HS [facility] Last Admin: 10/09/16 22:39 Dose: 1 applic Chlorhexidine Gluconate (Peridex -) 15 ml MM BID [facility] Last Admin: 10/10/16 09:16 Dose: 15 ml Furosemide (Lasix Injection -) 40 mg IVPUSH BID@0600,1400 [facility] Last Admin: 10/10/16 05:08 Dose: 40 mg Pantoprazole Sodium (Protonix 40mg Ivpb (Pre-Docked)) 100 mls @ 200 mls/hr IVPB DAILY [facility] Last Admin: 10/10/16 09:17 Dose: 200 mls/hr Fentanyl 500 mcg/ Dextrose 100 mls @ 5 mls/hr IJ TITR LYNETTE PRN Reason: 25 MCG/HR Last Admin: 10/10/16 07:45 Dose: 10 mls/hr Propofol (Diprivan -) 100 mls @ 3.81 mls/hr IVPB TITR LYNETTE; 5 MCG/KG/MIN PRN Reason: Protocol Last Admin: 10/09/16 21:45 Dose: 19.051 mls/hr Vasopressin 50 units/ Sodium (Chloride) 100 mls @ 4 mls/hr IVPB ASDIR LYNETTE; 2 UNITS/HR PRN Reason: Protocol Last Titration: 10/10/16 01:57 Dose: 1 units/hr Vancomycin HCl (Vancomycin (Pre-Docked)) 250 mls @ 166.667 mls/hr IVPB ONCE ONE PRN Reason: Protocol Stop: 10/10/16 10:29 Last Admin: 10/10/16 09:15 Dose: 166.667 mls/hr Mupirocin (Bactroban Ointment (For Decolonization) -) 1 applic NS BID [facility] Stop: 10/10/16 21:59 Last Admin: 10/10/16 09:15 Dose: 1 applic Polyethylene Glycol (Miralax (For Daily Use) -) 17 gm PO BID [facility] Last Admin: 10/10/16 09:23 Dose: 17 gm Potassium Chloride (Potassium Chloride Oral Liquid) 40 meq PO DAILY [facility] Last Admin: 10/10/16 09:17 Dose: 40 meq Potassium Chloride (Potassium Chloride Oral Liquid) 40 meq PO ONCE ONE Stop: 10/10/16 14:01 - Objective Vital Signs: Vital Signs Temperature 100.4 F H 10/10/16 10:00 Pulse Rate 100 H 10/10/16 10:00 Respiratory Rate 15 10/10/16 10:00 Blood Pressure 78/55 10/10/16 10:00 O2 Sat by Pulse Oximetry (%) 92 L 10/10/16 08:00 Cardiovascular: Yes: Pulse Irregular Respiratory: Yes: Intubated, Mechanically Ventilated, Rhonchi Gastrointestinal: Yes: Normal Bowel Sounds, Soft, Abdomen, Obese Edema: Yes Edema: LLE: Trace, RLE: Trace Labs: CBC, BMP 10/10/16 05:30 10/10/16 05:30 INR, PTT INR 1.27 (0.82-1.09) H 10/05/16 19:00 - ....Imaging Chest X-ray: Report Reviewed (Worsening CHF and effusions) Problem List - Problems (1) Atrial fibrillation, new onset Code(s): I48.91 - UNSPECIFIED ATRIAL FIBRILLATION (2) Sleep apnea Code(s): G47.30 - SLEEP APNEA, UNSPECIFIED Qualifiers: Sleep apnea type: unspecified type Qualified Code(s): G47.30 - Sleep apnea, unspecified (3) Acute on chronic diastolic (congestive) heart failure Code(s): I50.33 - ACUTE ON CHRONIC DIASTOLIC (CONGESTIVE) HEART FAILURE (4) Acute hypercapnic respiratory failure Code(s): J96.02 - ACUTE RESPIRATORY FAILURE WITH HYPERCAPNIA Assessment/Plan Echocardiography revealed mild to moderate LV systolic dysfunction, moderate TR , RVSP of 30-40 mmHg 1. Acute class III-IV NYHA classification LV failure related to systolic LV dysfunction, respiratory failure, worsening 2. Persistent atrial fibrillation with improved ventricular response, [id number] score of 2 3. Acute Hypoxic and Hypercapneic Respiratory Failure worsening 4. Thrombocytopenia 5. MONIE resolved 6. OSAS PLAN: 1. Increase Lasix 80 IV bid with monitor diuretic response, renal fxn and electrolytes, replete K 2. Continue carvedilol 3.125 bid as hemodynamics tolerate 3. Continue Eliquis 5 bid 4. Ideally should be on ACEI or ARBS as hemodynamic tolerate 5. Wean sedation, BD and wean trials, GI prophylaxis, cpap as outpatient
[2016-10-10] MEDS: PROPOFOL 100 ML IVPB SCH ×3 (11:10→23:50)
--- NOTE | 2016-10-10 12:09 | PN ---
Teaching Attending Note Name of Resident: Nick Kang ATTENDING PHYSICIAN STATEMENT I saw and evaluated the patient. I reviewed the resident's note and discussed the case with the resident. I agree with the resident's findings and plan as documented. SUBJECTIVE: Pt seen and examined in the ICU. Remains intubated, sedated. Vented on volume assist control with 60% FiO2, PEEP 10, saturating mid 90s. Low grade temps. Off pressors. Intake & Output 10/07/16 10/08/16 10/09/16 10/10/16 23:59 23:59 23:59 23:59 Intake Total 1018 2659.4 2897.2 1083.2 Output Total 4600 4100 3800 1800 Balance -3582 -1440.6 -902.8 -716.8 Weight 280 lb 4.8 oz 266 lb 5.094 oz 266 lb 6.4 oz 267 lb 4.8 oz Last Vital Signs Temp Pulse Resp BP Pulse Ox 100.4 F H 118 H 19 97/55 92 L 10/10/16 10:00 10/10/16 11:18 10/10/16 12:06 10/10/16 10:00 10/10/16 11:18 Active Medications Albuterol/Ipratropium (Duoneb -) 1 amp NEB QIDR [facility] Last Admin: 10/10/16 11:15 Dose: 1 amp Apixaban (Eliquis -) 5 mg PO BID [facility] Last Admin: 10/10/16 09:16 Dose: 5 mg Carvedilol (Coreg -) 3.125 mg NGT BID [facility] Last Admin: 10/10/16 09:15 Dose: 3.125 mg Chlorhexidine Gluconate (Hibiclens For Decolonization -) 1 applic TP HS [facility] Last Admin: 10/09/16 22:39 Dose: 1 applic Chlorhexidine Gluconate (Peridex -) 15 ml MM BID [facility] Last Admin: 10/10/16 09:16 Dose: 15 ml Furosemide (Lasix Injection -) 80 mg IVPUSH BID@0600,1400 [facility] Pantoprazole Sodium (Protonix 40mg Ivpb (Pre-Docked)) 100 mls @ 200 mls/hr IVPB DAILY [facility] Last Admin: 10/10/16 09:17 Dose: 200 mls/hr Fentanyl 500 mcg/ Dextrose 100 mls @ 5 mls/hr IJ TITR [facility] PRN Reason: 25 MCG/HR Last Admin: 10/10/16 07:45 Dose: 10 mls/hr Propofol (Diprivan -) 100 mls @ 3.81 mls/hr IVPB TITR [facility]; 5 MCG/KG/MIN PRN Reason: Protocol Last Admin: 10/10/16 11:10 Dose: 19.051 mls/hr Vasopressin 50 units/ Sodium (Chloride) 100 mls @ 4 mls/hr IVPB ASDIR [facility]; 2 UNITS/HR PRN Reason: Protocol Last Titration: 10/10/16 01:57 Dose: 1 units/hr Mupirocin (Bactroban Ointment (For Decolonization) -) 1 applic NS BID [facility] Stop: 10/10/16 21:59 Last Admin: 10/10/16 09:15 Dose: 1 applic Polyethylene Glycol (Miralax (For Daily Use) -) 17 gm PO BID [facility] Last Admin: 10/10/16 09:23 Dose: 17 gm Potassium Chloride (Potassium Chloride Oral Liquid) 40 meq PO DAILY [facility] Last Admin: 10/10/16 09:17 Dose: 40 meq Potassium Chloride (Potassium Chloride Oral Liquid) 40 meq PO ONCE ONE Stop: 10/10/16 14:01 Gen: intubated, sedated Heart: tachycardic, irregular Lung: scattered rhonchi Abd: soft, nontender Ext: + edema, scrotal edema Laboratory Results - last 24 hr 10/09/16 10/10/16 10/10/16 05:05 05:30 05:30 WBC 5.8 RBC 5.32 Hgb 17.2 H Hct 52.0 H MCV 97.7 H MCHC 33.1 RDW 16.6 H Plt Count 99 L MPV 9.5 Neutrophils % 68.9 Lymphocytes % 12.1 D Monocytes % 13.3 H Eosinophils % 4.9 H Basophils % 0.8 PTT (Actin FS) 35.2 H D Puncture Site ABG pH ABG pCO2 at Pt Temp ABG pO2 at Pt Temp ABG HCO3 ABG O2 Sat (Measured) ABG O2 Content ABG Base Excess Ye Test O2 Delivery Device Oxygen Flow Rate Vent Mode Vent Rate Mechanical Rate PEEP Pressure Support Vent Sodium Potassium Chloride Carbon Dioxide Anion Gap BUN Creatinine Random Glucose Calcium Phosphorus Magnesium Free T3 2.0 Thyroid Peroxidase Ab 10 10/10/16 10/10/16 05:30 08:28 WBC RBC Hgb Hct MCV MCHC RDW Plt Count MPV Neutrophils % Lymphocytes % Monocytes % Eosinophils % Basophils % PTT (Actin FS) Puncture Site Right radial ABG pH 7.44 ABG pCO2 at Pt Temp 67.5 H* ABG pO2 at Pt Temp 72.1 L ABG HCO3 45.2 H* ABG O2 Sat (Measured) 94.5 ABG O2 Content 22.8 H ABG Base Excess 16.2 H* Ye Test Positive O2 Delivery Device Mec.vent Oxygen Flow Rate 60% Vent Mode A/c Vent Rate 14 Mechanical Rate Esprit PEEP 10.0 Pressure Support Vent 475 Sodium 145 Potassium 3.4 L Chloride 94 L Carbon Dioxide 42 H Anion Gap 9 BUN 21 H Creatinine 0.8 Random Glucose 138 H Calcium 8.2 L Phosphorus 2.5 Magnesium 2.0 Free T3 Thyroid Peroxidase Ab CXR: ETT in position / increasing effusion/congestion on the right ASSESSMENT AND PLAN: Acute Hypoxic and Hypercapneic Respiratory Failure Acute on ?Chronic LV Systolic Heart Failure Pulmonary HTN Volume Overload Atrial Fibrillation with RVR Acute Kidney Injury Hyperthyroidism Fevers - f/u pending repeat cultures - ABX per ID - continue lasix - monitor urine output, creatinine - daily weights, I/Os - continue anticoagulation - inhaled bronchodilators - attempt to taper FiO2, PEEP to keep SpO2 >90% - not a candidate for weaning at this time due to high oxygen requirements - enteral feeds - DVT/GI prophylaxis - For CT scan of the chest - continue ICU monitoring critical care time spent reviewing chart, evaluating patient and formulating plan [address] Sanz Problem List - Problems (1) Atrial fibrillation, new onset Code(s): I48.91 - UNSPECIFIED ATRIAL FIBRILLATION (2) Congestive heart failure (CHF) Code(s): I50.9 - HEART FAILURE, UNSPECIFIED Qualifiers: Congestive heart failure type: combined Congestive heart failure chronicity: acute Qualified Code(s): I50.41 - Acute combined systolic ( congestive) and diastolic (congestive) heart failure (3) Edema of scrotum Code(s): N50.89 - OTHER SPECIFIED DISORDERS OF THE MALE GENITAL ORGANS (4) Lymphedema of both lower extremities Code(s): I89.0 - LYMPHEDEMA, NOT ELSEWHERE CLASSIFIED (5) Acute respiratory failure requiring reintubation Code(s): J96.00 - ACUTE RESPIRATORY FAILURE, UNSP W HYPOXIA OR HYPERCAPNIA (6) Sleep apnea Code(s): G47.30 - SLEEP APNEA, UNSPECIFIED Qualifiers: Sleep apnea type: unspecified type Qualified Code(s): G47.30 - Sleep apnea, unspecified (7) Renal insufficiency Code(s): N28.9 - DISORDER OF KIDNEY AND URETER, UNSPECIFIED (8) Morbid obesity Code(s): E66.01 - MORBID (SEVERE) OBESITY DUE TO EXCESS CALORIES
--- NOTE | 2016-10-10 13:18 | PN ---
Progress Note, Physician History of Present Illness: Pt seen and examined at bedside. He remain in the ICU. Pt remains intubated and mechanically ventilated. - Current Medication List Current Medications: Active Medications Albuterol/Ipratropium (Duoneb -) 1 amp NEB QIDR [facility] Last Admin: 10/10/16 11:15 Dose: 1 amp Apixaban (Eliquis -) 5 mg PO BID [facility] Last Admin: 10/10/16 09:16 Dose: 5 mg Carvedilol (Coreg -) 3.125 mg NGT BID [facility] Last Admin: 10/10/16 09:15 Dose: 3.125 mg Chlorhexidine Gluconate (Hibiclens For Decolonization -) 1 applic TP HS [facility] Last Admin: 10/09/16 22:39 Dose: 1 applic Chlorhexidine Gluconate (Peridex -) 15 ml MM BID [facility] Last Admin: 10/10/16 09:16 Dose: 15 ml Furosemide (Lasix Injection -) 80 mg IVPUSH BID@0600,1400 [facility] Pantoprazole Sodium (Protonix 40mg Ivpb (Pre-Docked)) 100 mls @ 200 mls/hr IVPB DAILY [facility] Last Admin: 10/10/16 09:17 Dose: 200 mls/hr Fentanyl 500 mcg/ Dextrose 100 mls @ 5 mls/hr IJ TITR [facility] PRN Reason: 25 MCG/HR Last Admin: 10/10/16 07:45 Dose: 10 mls/hr Propofol (Diprivan -) 100 mls @ 3.81 mls/hr IVPB TITR [facility]; 5 MCG/KG/MIN PRN Reason: Protocol Last Admin: 10/10/16 11:10 Dose: 19.051 mls/hr Vasopressin 50 units/ Sodium (Chloride) 100 mls @ 4 mls/hr IVPB ASDIR [facility]; 2 UNITS/HR PRN Reason: Protocol Last Titration: 10/10/16 01:57 Dose: 1 units/hr Mupirocin (Bactroban Ointment (For Decolonization) -) 1 applic NS BID [facility] Stop: 10/10/16 21:59 Last Admin: 10/10/16 09:15 Dose: 1 applic Polyethylene Glycol (Miralax (For Daily Use) -) 17 gm PO BID [facility] Last Admin: 10/10/16 09:23 Dose: 17 gm Potassium Chloride (Potassium Chloride Oral Liquid) 40 meq PO DAILY [facility] Last Admin: 10/10/16 09:17 Dose: 40 meq Potassium Chloride (Potassium Chloride Oral Liquid) 40 meq PO ONCE ONE Stop: 10/10/16 14:01 - Objective Vital Signs: Vital Signs Temperature 100.5 F H 10/10/16 12:00 Pulse Rate 103 H 10/10/16 12:00 Respiratory Rate 19 10/10/16 12:06 Blood Pressure 99/66 10/10/16 12:00 O2 Sat by Pulse Oximetry (%) 92 L 10/10/16 11:18 Constitutional: Yes: Calm Eyes: Yes: Conjunctiva Clear Cardiovascular: Yes: S1, S2 Respiratory: Yes: Mechanically Ventilated Gastrointestinal: Yes: Soft, Abdomen, Obese Genitourinary: Yes: Hilario Present Musculoskeletal: Yes: Muscle Weakness Edema: Yes Edema: LLE: 2+, RLE: 2+ Integumentary: Yes: Venous Stasis Changes Neurological: Yes: Other (sedated) Labs: CBC, BMP 10/10/16 05:30 10/10/16 05:30 INR, PTT INR 1.27 (0.82-1.09) H 10/05/16 19:00 Problem List - Problems (1) Acute kidney injury Code(s): N17.9 - ACUTE KIDNEY FAILURE, UNSPECIFIED (2) Anasarca Code(s): R60.1 - GENERALIZED EDEMA (3) Congestive heart failure (CHF) Code(s): I50.9 - HEART FAILURE, UNSPECIFIED Qualifiers: Congestive heart failure type: combined Congestive heart failure chronicity: acute Qualified Code(s): I50.41 - Acute combined systolic ( congestive) and diastolic (congestive) heart failure (4) Morbid obesity Code(s): E66.01 - MORBID (SEVERE) OBESITY DUE TO EXCESS CALORIES (5) Renal insufficiency Code(s): N28.9 - DISORDER OF KIDNEY AND URETER, UNSPECIFIED Assessment/Plan Current Medications Generic Name Dose Route Start Last Admin Trade Name Freq PRN Reason Stop Dose Admin Albuterol/Ipratropium 1 amp 10/06/16 00:00 10/10/16 11:15 Duoneb - NEB 1 amp QIDR [facility] Administration Apixaban 5 mg 10/09/16 10:30 10/10/16 09:16 Eliquis - PO 5 mg BID [facility] Administration Carvedilol 3.125 mg 10/09/16 10:30 10/10/16 09:15 Coreg - NGT 3.125 mg BID [facility] Administration Chlorhexidine Gluconate 1 applic 10/05/16 22:00 10/09/16 22:39 Hibiclens For Decolonization - TP 1 applic HS [facility] Administration Chlorhexidine Gluconate 15 ml 10/06/16 10:00 10/10/16 09:16 Peridex - MM 15 ml BID [facility] Administration Furosemide 80 mg 10/10/16 10:33 Lasix Injection - IVPUSH BID@0600,1400 [facility] Pantoprazole Sodium 100 mls @ 200 mls/hr 10/06/16 10:00 10/10/16 09:17 Protonix 40mg Ivpb (Pre-Docked) IVPB 200 mls/hr DAILY [facility] Administration Fentanyl 500 mcg/ Dextrose 100 mls @ 5 mls/hr 10/05/16 20:45 10/10/16 07:45 IJ 10 mls/hr TITR [facility] Administration 25 MCG/HR Propofol 100 mls @ 3.81 mls/hr 10/05/16 21:45 10/10/16 11:10 Diprivan - IVPB 19.051 mls/hr TITR [facility] Administration Protocol 5 MCG/KG/MIN Vasopressin 50 units/ Sodium 100 mls @ 4 mls/hr 10/09/16 23:00 10/10/16 01:57 Chloride IVPB 1 units/hr ASDIR [facility] Titration Protocol 2 UNITS/HR Mupirocin 1 applic 10/05/16 22:00 10/10/16 09:15 Bactroban Ointment (For Decolonization) - NS 10/10/16 21:59 1 applic BID [facility] Administration Polyethylene Glycol 17 gm 10/09/16 22:00 10/10/16 09:23 Miralax (For Daily Use) - PO 17 gm BID [facility] Administration Potassium Chloride 40 meq 10/08/16 10:00 10/10/16 09:17 Potassium Chloride Oral Liquid PO 40 meq DAILY [facility] Administration Potassium Chloride 40 meq 10/10/16 14:00 Potassium Chloride Oral Liquid PO 10/10/16 14:01 ONCE ONE Impression 1. Azotemia 2. CHF acute 3. acute resp failure requiring intubation 4. new onset atrial fibrillation 5. hx of htn 6. obesity 7. chronic smoker 8. hypokalemia Plan - cont with lasix - monitor urine output - keep net negative - daily cxr - pulmonary input appreciated - monitor lytes - will follow Dr Delacruz
[2016-10-10] MEDS ORDERED: POTASSIUM CHLORIDE ORAL LIQUID 20 MEQ/15 ML PO ONE (14:00)
--- NOTE | 2016-10-10 14:42 | PN ---
Teaching Attending Note Name of Resident: Hillary Reyes ATTENDING PHYSICIAN STATEMENT I saw and evaluated the patient. I reviewed the resident's note and discussed the case with the resident. I agree with the resident's findings and plan as documented. SUBJECTIVE: over night , had hypotension again and was placed on vasopressin , also Vent settings changed . had fever OBJECTIVE: NAD , sedated, intubated , opens eyes to verbal stimulation no JVD CV: irreg irreg Lungs ; course breath sounds over R anterior lung ABd: 1+ abd wall edema , no TTP , hypoactive BS Ext : improved pitting edema . Scrotal swelling and pitting edema ( 2+ ) ASSESSMENT AND PLAN: 60 y/o man with ho GERD, HTN, previously mildly reduced EF who presented with scrotal swelling and was diagnosed with acute hypoxic resp failure due to acute CHF exacerbation 1- Acute hypoxic hypercapnic reap failure: 2/2 acute CHF exacerbation. there is suspicion for PNA - increase lasix to 80 mg BID , due to worsening congestion and increased Oxygen requirements ( FiO2 and PEEP) - start vanc and zosyn . will discuss with ID - CT scan of chest to evaluate for HAP/VEnt associate PNA - cont vent support . try to taper down PEEP and FiO2 - can use inoptrops if BP drops again 2- Cardiogenic shock: - briefly placed on vasopressin over night . - If hypotensive again, can use inotrop ( milrinone ) . 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 - cont to monitor 4- New onset A fib. - Eliquis - cont BB as hemodynamics allow 5- Electrolytes abn :monitor and replete as needed ICU level of care Critical Care Total Critical Care Time (in minutes): 40 Critical Care Statement: The care of this patient involved high complexity decision making to prevent further life threatening deterioration of the patient 's condition and/or to evalute & treat vital organ system(s) failure or risk of failure.
--- NOTE | 2016-10-10 14:48 | MSN ---
Progress Note (short form) - Note Progress Note: 60 yo male presented to ER 04 November for testicular swelling X 1 1/2 wks and increasing shortness of breath; he was diagnosed with new onset Afib, B/L LE lymphedema and edema of the scrotum. PMH sig for HTN, GERD, obesity and cigarette smoke. Pt. intubated in ICU. Patient had a neg balance of -716.8ml. Current vent settings are 14/475/60/50/10/5. Last Vital Signs Temp Pulse Resp BP Pulse Ox 100.5 F H 103 H 19 99/66 92 L 10/10/16 12:00 10/10/16 12:00 10/10/16 12:06 10/10/16 12:00 10/10/16 11:18 Allergies Allergy/AdvReac Type Severity Reaction Status Date / Time No Known Allergies Allergy Verified 10/05/16 10:30 Intake & Output 10/07/16 10/08/16 10/09/16 10/10/16 23:59 23:59 23:59 23:59 Intake Total 1018 2659.4 2897.2 1483.2 Output Total 4600 4100 3800 2300 Balance -3582 -1440.6 -902.8 -816.8 Weight 280 lb 4.8 oz 266 lb 5.094 oz 266 lb 6.4 oz 267 lb 4.8 oz Laboratory Results - last 24 hr 10/09/16 10/10/16 10/10/16 05:05 05:30 05:30 WBC 5.8 RBC 5.32 Hgb 17.2 H Hct 52.0 H MCV 97.7 H MCHC 33.1 RDW 16.6 H Plt Count 99 L MPV 9.5 Neutrophils % 68.9 Lymphocytes % 12.1 D Monocytes % 13.3 H Eosinophils % 4.9 H Basophils % 0.8 PTT (Actin FS) 35.2 H D Puncture Site ABG pH ABG pCO2 at Pt Temp ABG pO2 at Pt Temp ABG HCO3 ABG O2 Sat (Measured) ABG O2 Content ABG Base Excess Ye Test O2 Delivery Device Oxygen Flow Rate Vent Mode Vent Rate Mechanical Rate PEEP Pressure Support Vent Sodium Potassium Chloride Carbon Dioxide Anion Gap BUN Creatinine Random Glucose Calcium Phosphorus Magnesium Free T3 2.0 Thyroid Peroxidase Ab 10 10/10/16 10/10/16 05:30 08:28 WBC RBC Hgb Hct MCV MCHC RDW Plt Count MPV Neutrophils % Lymphocytes % Monocytes % Eosinophils % Basophils % PTT (Actin FS) Puncture Site Right radial ABG pH 7.44 ABG pCO2 at Pt Temp 67.5 H* ABG pO2 at Pt Temp 72.1 L ABG HCO3 45.2 H* ABG O2 Sat (Measured) 94.5 ABG O2 Content 22.8 H ABG Base Excess 16.2 H* Ye Test Positive O2 Delivery Device Mec.vent Oxygen Flow Rate 60% Vent Mode A/c Vent Rate 14 Mechanical Rate Esprit PEEP 10.0 Pressure Support Vent 475 Sodium 145 Potassium 3.4 L Chloride 94 L Carbon Dioxide 42 H Anion Gap 9 BUN 21 H Creatinine 0.8 Random Glucose 138 H Calcium 8.2 L Phosphorus 2.5 Magnesium 2.0 Free T3 Thyroid Peroxidase Ab Current Medications Generic Name Dose Route Start Last Admin Trade Name Freq PRN Reason Stop Dose Admin Albuterol/Ipratropium 1 amp 10/06/16 00:00 10/10/16 11:15 Duoneb - NEB 1 amp QIDR [facility] Administration Apixaban 5 mg 10/09/16 10:30 10/10/16 09:16 Eliquis - PO 5 mg BID [facility] Administration Carvedilol 3.125 mg 10/09/16 10:30 10/10/16 09:15 Coreg - NGT 3.125 mg BID [facility] Administration Chlorhexidine Gluconate 1 applic 10/05/16 22:00 10/09/16 22:39 Hibiclens For Decolonization - TP 1 applic HS [facility] Administration Chlorhexidine Gluconate 15 ml 10/06/16 10:00 10/10/16 09:16 Peridex - MM 15 ml BID [facility] Administration Furosemide 80 mg 10/10/16 10:33 10/10/16 13:21 Lasix Injection - IVPUSH 80 mg BID@0600,1400 [facility] Administration Pantoprazole Sodium 100 mls @ 200 mls/hr 10/06/16 10:00 10/10/16 09:17 Protonix 40mg Ivpb (Pre-Docked) IVPB 200 mls/hr DAILY [facility] Administration Fentanyl 500 mcg/ Dextrose 100 mls @ 5 mls/hr 10/05/16 20:45 10/10/16 07:45 IJ 10 mls/hr TITR [facility] Administration 25 MCG/HR Propofol 100 mls @ 3.81 mls/hr 10/05/16 21:45 10/10/16 11:10 Diprivan - IVPB 19.051 mls/hr TITR [facility] Administration Protocol 5 MCG/KG/MIN Vasopressin 50 units/ Sodium 100 mls @ 4 mls/hr 10/09/16 23:00 10/10/16 01:57 Chloride IVPB 1 units/hr ASDIR [facility] Titration Protocol 2 UNITS/HR Mupirocin 1 applic 10/05/16 22:00 10/10/16 09:15 Bactroban Ointment (For Decolonization) - NS 10/10/16 21:59 1 applic BID [facility] Administration Polyethylene Glycol 17 gm 10/09/16 22:00 10/10/16 09:23 Miralax (For Daily Use) - PO 17 gm BID [facility] Administration Potassium Chloride 40 meq 10/08/16 10:00 10/10/16 09:17 Potassium Chloride Oral Liquid PO 40 meq DAILY [facility] Administration Chest x-ray: 10/10/16 - Large heart; B/L congestive changes have increased; progressive fluid with atelaectasis and/or infiltrate at the bases. Fluid is in the horizontal fissure; slightly worse compared to last report; progressive pulmonary and pleural changes. General: Sedated on ventilation; pt asleep during examination Head: Normocephalic Neck: Neg JVD Heart: Normal S1 and S2 Lungs: Rales B/L lower lobes Abdomen: Distended and edematous; no TTP; BS normocephalic; no guarding : Testicular edema B/L; neg infection at maxwell site MSK: Pitting edema LE 1+; peripheral pulse 2+; B/L venous stasis LE Assessment & Plan: 60 yo male every day smoker with HTN, GERD, Obesity, testicular swelling and shortness of breath; diagnosed with new onset Afib, B/L lower extremity edema and edema of scrotum 1) Hypoxic Hypercapnic respiratory failure: - Secondary to Systolic Heart Failure IV lasix 80 BID; monitor i/o, mainatin neg fluid balance; daily weight, vitals; monitor CVP Carvedilol: 3.125 mg BID - Possible Pneumonia: Start vancomycin and Zosyn 2) Afib: Continue Eliquis 5 mg PO BID 3) Hypotension: Continue monitoring MAP; pt received Vasopressin overnight - 50 units 4) MONIE (cardiorenal) - continue diuresing with Lasix 80 mg BID, avoid nephrotoxic drugs, monitor creatinine 5) Hypokalemia/Hypomagnesia - Continue potassium chloride @ 40 meq PO ; try to keep potassium above 4 6) continue Pantoprozole Sodium - 40 mg IVP for prophylaxis against sepsis. Problem List - Problems (1) Congestive heart failure (CHF) Code(s): I50.9 - HEART FAILURE, UNSPECIFIED Qualifiers: Congestive heart failure type: combined Congestive heart failure chronicity: acute Qualified Code(s): I50.41 - Acute combined systolic ( congestive) and diastolic (congestive) heart failure (2) Acute respiratory failure requiring reintubation Code(s): J96.00 - ACUTE RESPIRATORY FAILURE, UNSP W HYPOXIA OR HYPERCAPNIA (3) Atrial fibrillation, new onset Code(s): I48.91 - UNSPECIFIED ATRIAL FIBRILLATION (4) Renal insufficiency Code(s): N28.9 - DISORDER OF KIDNEY AND URETER, UNSPECIFIED (5) Acute kidney injury Code(s): N17.9 - ACUTE KIDNEY FAILURE, UNSPECIFIED (6) Anasarca Code(s): R60.1 - GENERALIZED EDEMA (7) Cellulitis Code(s): L03.90 - CELLULITIS, UNSPECIFIED Qualifiers: Site of cellulitis: extremity Site of cellulitis of extremity: lower extremity Laterality: right Qualified Code(s): L03.115 - Cellulitis of right lower limb (8) Edema of scrotum Code(s): N50.89 - OTHER SPECIFIED DISORDERS OF THE MALE GENITAL ORGANS (9) Lymphedema of both lower extremities Code(s): I89.0 - LYMPHEDEMA, NOT ELSEWHERE CLASSIFIED (10) Morbid obesity Code(s): E66.01 - MORBID (SEVERE) OBESITY DUE TO EXCESS CALORIES (11) Sleep apnea Code(s): G47.30 - SLEEP APNEA, UNSPECIFIED Qualifiers: Sleep apnea type: unspecified type Qualified Code(s): G47.30 - Sleep apnea, unspecified
--- NOTE | 2016-10-10 15:43 | PN ---
Physical Exam: SUBJECTIVE: Patient seen and examined Patient resting in bed, intubated, sedated. minimally wakeful. still running low grade fever day 3. t max 100.7 overnight. Received only 40 mg iv lasix yesterday due to hypotension, was placed on vasopressin at night and taken off it in the morning. achieved negative fluid balance of 902. BP 100/58 map 69. CVP 13, in A fib rate 105, O2 sat 92% Vent setting 14/475/60/50/10/5. weaned off vasopressin, on Fentanyl @50, Propofol @ 25. OBJECTIVE: Vital Signs Period Temp Pulse Resp BP Sys/Clements Pulse Ox Last 24 Hr 100.3 F-101.0 F 94-118 14-19 78-120/54-87 92-94 GENERAL: sedated overall less edematous HEAD: Normal with no signs of trauma, obese EYES: pinpoint EARS, NOSE, THROAT: Moist mucous membranes. NECK: supple + JVD LUNGS: reduced breath sounds at bases HEART: tachy, irregular ABDOMEN: slighlty harder, 1+ edema, moderately erythematous, reduced bowel sounds MUSCULOSKELETAL: No bony deformities UPPER EXTREMITIES: 2+ pulses, mild peripheral edema. LOWER EXTREMITIES: 1+ pulses, 3+ pitting edema improved, chronic stasis dermatitis b/l NEUROLOGICAL: grossly symmetrical face PSYCHIATRIC: unable to assess SKIN: Warm, dry Laboratory Results - last 24 hr 10/09/16 10/10/16 10/10/16 05:05 05:30 05:30 WBC 5.8 RBC 5.32 Hgb 17.2 H Hct 52.0 H MCV 97.7 H MCHC 33.1 RDW 16.6 H Plt Count 99 L MPV 9.5 Neutrophils % 68.9 Lymphocytes % 12.1 D Monocytes % 13.3 H Eosinophils % 4.9 H Basophils % 0.8 PTT (Actin FS) 35.2 H D Puncture Site ABG pH ABG pCO2 at Pt Temp ABG pO2 at Pt Temp ABG HCO3 ABG O2 Sat (Measured) ABG O2 Content ABG Base Excess Ye Test O2 Delivery Device Oxygen Flow Rate Vent Mode Vent Rate Mechanical Rate PEEP Pressure Support Vent Sodium Potassium Chloride Carbon Dioxide Anion Gap BUN Creatinine Random Glucose Calcium Phosphorus Magnesium Free T3 2.0 Thyroid Peroxidase Ab 10 10/10/16 10/10/16 05:30 08:28 WBC RBC Hgb Hct MCV MCHC RDW Plt Count MPV Neutrophils % Lymphocytes % Monocytes % Eosinophils % Basophils % PTT (Actin FS) Puncture Site Right radial ABG pH 7.44 ABG pCO2 at Pt Temp 67.5 H* ABG pO2 at Pt Temp 72.1 L ABG HCO3 45.2 H* ABG O2 Sat (Measured) 94.5 ABG O2 Content 22.8 H ABG Base Excess 16.2 H* Ye Test Positive O2 Delivery Device Mec.vent Oxygen Flow Rate 60% Vent Mode A/c Vent Rate 14 Mechanical Rate Esprit PEEP 10.0 Pressure Support Vent 475 Sodium 145 Potassium 3.4 L Chloride 94 L Carbon Dioxide 42 H Anion Gap 9 BUN 21 H Creatinine 0.8 Random Glucose 138 H Calcium 8.2 L Phosphorus 2.5 Magnesium 2.0 Free T3 Thyroid Peroxidase Ab Active Medications Generic Name Dose Route Start Last Admin Trade Name Freq PRN Reason Stop Dose Admin Acetaminophen 650 mg 10/10/16 15:28 Tylenol - PO Q6H PRN FEVER OR PAIN Acetaminophen 1,000 mg 10/10/16 15:45 10/10/16 15:42 Ofirmev Injection - IVPB 10/10/16 15:46 1,000 mg ONCE ONE Administration Albuterol/Ipratropium 1 amp 10/06/16 00:00 10/10/16 11:15 Duoneb - NEB 1 amp QIDR LYNETTE Administration Apixaban 5 mg 10/09/16 10:30 10/10/16 09:16 Eliquis - PO 5 mg BID LYNETTE Administration Carvedilol 3.125 mg 10/09/16 10:30 10/10/16 09:15 Coreg - NGT 3.125 mg BID LYNETTE Administration Chlorhexidine Gluconate 1 applic 10/05/16 22:00 10/09/16 22:39 Hibiclens For Decolonization - TP 1 applic HS LYNETTE Administration Chlorhexidine Gluconate 15 ml 10/06/16 10:00 10/10/16 09:16 Peridex - MM 15 ml BID LYNETTE Administration Furosemide 80 mg 10/10/16 10:33 10/10/16 13:21 Lasix Injection - IVPUSH 80 mg BID@0600,1400 LYNETTE Administration Pantoprazole Sodium 100 mls @ 200 mls/hr 10/06/16 10:00 10/10/16 09:17 Protonix 40mg Ivpb (Pre-Docked) IVPB 200 mls/hr DAILY LYNETTE Administration Fentanyl 500 mcg/ Dextrose 100 mls @ 5 mls/hr 10/05/16 20:45 10/10/16 07:45 IJ 10 mls/hr TITR LYNETTE Administration 25 MCG/HR Propofol 100 mls @ 3.81 mls/hr 10/05/16 21:45 10/10/16 11:10 Diprivan - IVPB 19.051 mls/hr TITR LYNETTE Administration Protocol 5 MCG/KG/MIN Vasopressin 50 units/ Sodium 100 mls @ 4 mls/hr 10/09/16 23:00 10/10/16 01:57 Chloride IVPB 1 units/hr ASDIR LYNETTE Titration Protocol 2 UNITS/HR Mupirocin 1 applic 10/05/16 22:00 10/10/16 09:15 Bactroban Ointment (For Decolonization) - NS 10/10/16 21:59 1 applic BID LYNETTE Administration Polyethylene Glycol 17 gm 10/09/16 22:00 10/10/16 09:23 Miralax (For Daily Use) - PO 17 gm BID LYNETTE Administration Potassium Chloride 40 meq 10/08/16 10:00 10/10/16 09:17 Potassium Chloride Oral Liquid PO 40 meq DAILY LYNETTE Administration ASSESSMENT/PLAN: This is a 60 yo M every day smoker with PMH of HTN, GERD, and obesity who presents due to testicular swelling x 1 W and worsening SOB. Acute decompensated CHF -NYHA class III-IV -severe fluid overload, anasarca -s/p 40mg lasix IV yesterday; -902 cc negative fluid balance -duplex LE negative -TTE mild/mod reduced EF, mild pulm HTN, RVP 30-40, global mild/mod LV hypokinesis worse than 05/06/16 -CXR AM worse bases R>L -cardio consult appreciated: -coreg 3.125 bid po -lasix 80 BID -if further hypotension, start midodrine 5 tid instead of vasopressin -strict I and O -daily weight 267 lb -am xray -tele monitoring a fib -icu monitoring -wean off sedation Fever -CT chest: goiter, RUL cystic lesion, bibasilar effusions and consolidation -zosyn, vanco given -sputum p/d, blood cultures negative -ID on case Hypotension -now off pressors A fib -eliquis -stopped Asa 81 Hyperthyroid -possibly incidental effect of amiodarone -tsh 0.29; repeat 0.77 normal -ft4 1.77 -fT3 1.9 -no treatment indicated at this time MONIE -creat 1 (baseline 0.9 in apr) -cardiorenal -renal consult appreciated -diurese Acute hypoxic respiratory failure -intubated -keep FIO2 >88 -daily weaning FEN -diurese -replete lytes -npo PPX: PPI, noac Dispo: ICU Problem List - Problems (1) Acute respiratory failure requiring reintubation Code(s): J96.00 - ACUTE RESPIRATORY FAILURE, UNSP W HYPOXIA OR HYPERCAPNIA (2) Atrial fibrillation, new onset Code(s): I48.91 - UNSPECIFIED ATRIAL FIBRILLATION (3) Congestive heart failure (CHF) Code(s): I50.9 - HEART FAILURE, UNSPECIFIED Qualifiers: Congestive heart failure type: combined Congestive heart failure chronicity: acute Qualified Code(s): I50.41 - Acute combined systolic ( congestive) and diastolic (congestive) heart failure (4) Edema of scrotum Code(s): N50.89 - OTHER SPECIFIED DISORDERS OF THE MALE GENITAL ORGANS (5) Lymphedema of both lower extremities Code(s): I89.0 - LYMPHEDEMA, NOT ELSEWHERE CLASSIFIED (6) Morbid obesity Code(s): E66.01 - MORBID (SEVERE) OBESITY DUE TO EXCESS CALORIES (7) Renal insufficiency Code(s): N28.9 - DISORDER OF KIDNEY AND URETER, UNSPECIFIED (8) Sleep apnea Code(s): G47.30 - SLEEP APNEA, UNSPECIFIED Qualifiers: Sleep apnea type: unspecified type Qualified Code(s): G47.30 - Sleep apnea, unspecified (9) Acute kidney injury Code(s): N17.9 - ACUTE KIDNEY FAILURE, UNSPECIFIED (10) Anasarca Code(s): R60.1 - GENERALIZED EDEMA Visit type - Emergency Visit Emergency Visit: Yes ED Registration Date: 10/05/16 Care time: The patient presented to the Emergency Department on the above date and was hospitalized for further evaluation of their emergent condition. - New Patient This patient is new to me today: No - Critical Care Critical Care patient: Yes Total Critical Care Time (in minutes): 46 Critical Care Statement: The care of this patient involved high complexity decision making to prevent further life threatening deterioration of the patient 's condition and/or to evalute & treat vital organ system(s) failure or risk of failure. - Discharge Referral Referred to [facility] No
[2016-10-10] MEDS ORDERED: ACETAMINOPHEN 1000 MG/100 ML VIAL (NON FORMULARY) IVPB ONE (15:45)
--- NOTE | 2016-10-10 15:52 | PN ---
Physical Exam: SUBJECTIVE: Patient seen and examined patient sedated and on ventilator fio2 increased to 60, peep increased to 10 vasopressin was started in night at 1 , in morning MAP was over 70, vasopressin was stopped off vasopressin, mantaing a BP of 105/67 mean 75 spo2 of 94% negative of 900 cxr shows increased effusion on right side will increase lasix OBJECTIVE: Vital Signs Period Temp Pulse Resp BP Sys/Clements Pulse Ox Last 24 Hr 100.3 F-101.0 F 94-118 14-19 78-120/54-87 92-94 GENERAL: sedated and intubated HEAD: Normal with no signs of trauma. EARS, NOSE, THROAT: Ears normal, nares patent, oropharynx clear without exudates. NECK: supple without lymphadenopathy, JVD, or masses. LUNGS: Breath sounds equal bilateral, . No wheezes, and ronchi present decreased since before HEART: s1s2 normal, hr irregularly irregular ABDOMEN: Soft, edema present in lower abdominal wall and scrotum, edema decreased on lower abdominal wall, scrotum still edematous UPPER EXTREMITIES: 2+ pulses, warm, well-perfused. No cyanosis. LOWER EXTREMITIES: 2+ pulses, warm, well-perfused. No calf tenderness.peripheral edema present ++ NEUROLOGICAL: unobtainable SKIN: Warm, dry, Laboratory Results - last 24 hr 10/09/16 10/10/16 10/10/16 05:05 05:30 05:30 WBC 5.8 RBC 5.32 Hgb 17.2 H Hct 52.0 H MCV 97.7 H MCHC 33.1 RDW 16.6 H Plt Count 99 L MPV 9.5 Neutrophils % 68.9 Lymphocytes % 12.1 D Monocytes % 13.3 H Eosinophils % 4.9 H Basophils % 0.8 PTT (Actin FS) 35.2 H D Puncture Site ABG pH ABG pCO2 at Pt Temp ABG pO2 at Pt Temp ABG HCO3 ABG O2 Sat (Measured) ABG O2 Content ABG Base Excess Ye Test O2 Delivery Device Oxygen Flow Rate Vent Mode Vent Rate Mechanical Rate PEEP Pressure Support Vent Sodium Potassium Chloride Carbon Dioxide Anion Gap BUN Creatinine Random Glucose Calcium Phosphorus Magnesium Free T3 2.0 Thyroid Peroxidase Ab 10 10/10/16 10/10/16 05:30 08:28 WBC RBC Hgb Hct MCV MCHC RDW Plt Count MPV Neutrophils % Lymphocytes % Monocytes % Eosinophils % Basophils % PTT (Actin FS) Puncture Site Right radial ABG pH 7.44 ABG pCO2 at Pt Temp 67.5 H* ABG pO2 at Pt Temp 72.1 L ABG HCO3 45.2 H* ABG O2 Sat (Measured) 94.5 ABG O2 Content 22.8 H ABG Base Excess 16.2 H* Ye Test Positive O2 Delivery Device Mec.vent Oxygen Flow Rate 60% Vent Mode A/c Vent Rate 14 Mechanical Rate Esprit PEEP 10.0 Pressure Support Vent 475 Sodium 145 Potassium 3.4 L Chloride 94 L Carbon Dioxide 42 H Anion Gap 9 BUN 21 H Creatinine 0.8 Random Glucose 138 H Calcium 8.2 L Phosphorus 2.5 Magnesium 2.0 Free T3 Thyroid Peroxidase Ab Active Medications Generic Name Dose Route Start Last Admin Trade Name Freq PRN Reason Stop Dose Admin Acetaminophen 650 mg 10/10/16 15:28 Tylenol - PO Q6H PRN FEVER OR PAIN Albuterol/Ipratropium 1 amp 10/06/16 00:00 10/10/16 11:15 Duoneb - NEB 1 amp QIDR LYNETTE Administration Apixaban 5 mg 10/09/16 10:30 10/10/16 09:16 Eliquis - PO 5 mg BID LYNETTE Administration Carvedilol 3.125 mg 10/09/16 10:30 10/10/16 09:15 Coreg - NGT 3.125 mg BID LYNETTE Administration Chlorhexidine Gluconate 1 applic 10/05/16 22:00 10/09/16 22:39 Hibiclens For Decolonization - TP 1 applic HS LYNETTE Administration Chlorhexidine Gluconate 15 ml 10/06/16 10:00 10/10/16 09:16 Peridex - MM 15 ml BID LYNETTE Administration Furosemide 80 mg 10/10/16 10:33 10/10/16 13:21 Lasix Injection - IVPUSH 80 mg BID@0600,1400 LYNETTE Administration Pantoprazole Sodium 100 mls @ 200 mls/hr 10/06/16 10:00 10/10/16 09:17 Protonix 40mg Ivpb (Pre-Docked) IVPB 200 mls/hr DAILY LYNETTE Administration Fentanyl 500 mcg/ Dextrose 100 mls @ 5 mls/hr 10/05/16 20:45 10/10/16 07:45 IJ 10 mls/hr TITR LYNETTE Administration 25 MCG/HR Propofol 100 mls @ 3.81 mls/hr 10/05/16 21:45 10/10/16 15:43 Diprivan - IVPB 19.051 mls/hr TITR LYNETTE Administration Protocol 5 MCG/KG/MIN Vasopressin 50 units/ Sodium 100 mls @ 4 mls/hr 10/09/16 23:00 10/10/16 01:57 Chloride IVPB 1 units/hr ASDIR LYNETTE Titration Protocol 2 UNITS/HR Mupirocin 1 applic 10/05/16 22:00 10/10/16 09:15 Bactroban Ointment (For Decolonization) - NS 10/10/16 21:59 1 applic BID LYNETTE Administration Polyethylene Glycol 17 gm 10/09/16 22:00 10/10/16 09:23 Miralax (For Daily Use) - PO 17 gm BID LYNETTE Administration Potassium Chloride 40 meq 10/08/16 10:00 10/10/16 09:17 Potassium Chloride Oral Liquid PO 40 meq DAILY LYNETTE Administration ASSESSMENT/PLAN: This is a 60 yo M every day smoker with PMH of HTN, GERD, and obesity who presents due to testicular swelling, b/l lower leg swelling, swelling in lower part of anterior abdominal wall and worsening SOB. Acute exacerbation CHF with hypoxic hypercapnic respiratory failure lasix increased to 80mg bid monitor i/o, maintain negative balance, todays negative 900 daily weight monitor vitals, follow echo : LV systolic function mild to moderately reduced on ventilator support, keep spo 2 over 90 ( fio2 increased to 60, peep increased to 10 from 8, tv 475, ) cxr effusion increased ct chest b/l effusion with consolidation cardiology consult appreciated. : on coreg 3.125 bid monitor cvp Fever; culture negative cxr reviewed, ct chest reviewed had fever of 101 UA : no uti id on case A fib - on eliquis - on coreg 3.12 bid - cardiology on case Hypotension improved off vasopressin keep MAP >65 MONIE ( cardiorenal) - improved cr 0.8 - nephrology on case - diurese with lasix 60mg bid - avoid nephrotoxic drugs - monitor creatinine Hypokalemia and hypomagnesemia replace k and mg will try to keep K around 4 FEN -diurese, avoid IV fluid -replete lytes - start on tube feed PPX: PPI, eliquis Dispo: ICU Visit type - Emergency Visit Emergency Visit: Yes ED Registration Date: 10/05/16 Care time: The patient presented to the Emergency Department on the above date and was hospitalized for further evaluation of their emergent condition. - New Patient This patient is new to me today: No - Critical Care Critical Care patient: Yes Total Critical Care Time (in minutes): 45 Critical Care Statement: The care of this patient involved high complexity decision making to prevent further life threatening deterioration of the patient 's condition and/or to evalute & treat vital organ system(s) failure or risk of failure.
--- NOTE | 2016-10-10 17:07 | PN ---
Progress Note, Physician History of Present Illness: Sedated on ventilator Temp spike 101 noted. Hypotensive Repeat cultures ordered Stat doses vancomycn and zosyn given - Current Medication List Current Medications: Active Medications Acetaminophen (Tylenol -) 650 mg PO Q6H PRN PRN Reason: FEVER OR PAIN Albuterol/Ipratropium (Duoneb -) 1 amp NEB QIDR [facility] [place] Last Admin: 10/10/16 11:15 Dose: 1 amp Apixaban (Eliquis -) 5 mg PO BID [facility] [place] Last Admin: 10/10/16 09:16 Dose: 5 mg Carvedilol (Coreg -) 3.125 mg NGT BID [facility] [place] Last Admin: 10/10/16 09:15 Dose: 3.125 mg Chlorhexidine Gluconate (Hibiclens For Decolonization -) 1 applic TP HS [facility] [place] Last Admin: 10/09/16 22:39 Dose: 1 applic Chlorhexidine Gluconate (Peridex -) 15 ml MM BID [facility] [place] Last Admin: 10/10/16 09:16 Dose: 15 ml Furosemide (Lasix Injection -) 80 mg IVPUSH BID@0600,1400 [facility] [place] Last Admin: 10/10/16 13:21 Dose: 80 mg Pantoprazole Sodium (Protonix 40mg Ivpb (Pre-Docked)) 100 mls @ 200 mls/hr IVPB DAILY [facility] [place] Last Admin: 10/10/16 09:17 Dose: 200 mls/hr Fentanyl 500 mcg/ Dextrose 100 mls @ 5 mls/hr IJ TITR LYNETTE PRN Reason: 25 MCG/HR Last Admin: 10/10/16 07:45 Dose: 10 mls/hr Propofol (Diprivan -) 100 mls @ 3.81 mls/hr IVPB TITR LYNETTE; 5 MCG/KG/MIN PRN Reason: Protocol Last Admin: 10/10/16 15:43 Dose: 19.051 mls/hr Vasopressin 50 units/ Sodium (Chloride) 100 mls @ 4 mls/hr IVPB ASDIR LYNETTE; 2 UNITS/HR PRN Reason: Protocol Last Titration: 10/10/16 01:57 Dose: 1 units/hr Mupirocin (Bactroban Ointment (For Decolonization) -) 1 applic NS BID [facility] [place] Stop: 10/10/16 21:59 Last Admin: 10/10/16 09:15 Dose: 1 applic Polyethylene Glycol (Miralax (For Daily Use) -) 17 gm PO BID [facility] [place] Last Admin: 10/10/16 09:23 Dose: 17 gm Potassium Chloride (Potassium Chloride Oral Liquid) 40 meq PO DAILY [facility] [place] Last Admin: 10/10/16 09:17 Dose: 40 meq - Objective Vital Signs: Vital Signs Temperature 101.0 F H 10/10/16 16:00 Pulse Rate 107 H 10/10/16 16:00 Respiratory Rate 14 10/10/16 16:00 Blood Pressure 97/67 10/10/16 16:00 O2 Sat by Pulse Oximetry (%) 92 L 10/10/16 11:18 Constitutional: Yes: No Distress, Obese Cardiovascular: Yes: Regular Rate and Rhythm, S1, S2 Respiratory: Yes: Mechanically Ventilated Gastrointestinal: Yes: Normal Bowel Sounds, Soft, Abdomen, Obese. No: Tenderness Extremities: Yes: Other (+ edema, chronic venous stasis changes) Edema: Yes Labs: CBC, BMP 10/10/16 05:30 10/10/16 05:30 INR, PTT INR 1.27 (0.82-1.09) H 10/05/16 19:00 Assessment/Plan Respiratory failure + lung consolidation, effusions CHF Thrombocytopenia Repeat BC, sputum c/s Continue empiric zosyn
[2016-10-10] MEDS: PIPERACILLIN/TAZOB 4.5 GM 100 ML IVPB SCH (18:11)
[2016-10-10] MEDS: AMINO ACIDS/PROTEIN HYDROLYS 30 ML LIQUID.PKT PO SCH (18:11)
[2016-10-10] MEDS: CHLORHEXIDINE GLUCONATE 4% CLEANSER FOR DECOLONIZATION TP SCH (22:00)
[2016-10-11] MEDS: ALBUTEROL SO4 2.5/IPRATROPIUM 0.5 INH SOL 3 ML VIAL.NEB. NEB SCH (00:22)
[2016-10-11] MEDS: FENTANYL INJECTION 500 MCG in DEXTROSE 5%-WATER - 90 ML IJ SCH ×3 (01:41→23:19)
[2016-10-11] MEDS: PIPERACILLIN/TAZOB 4.5 GM 100 ML IVPB SCH ×3 (02:15→17:35)
[2016-10-11] MEDS: FUROSEMIDE 40 MG/4 ML INJECTABLE VIAL IVPUSH SCH ×2 (05:18→13:00)
[2016-10-11] MEDS: PROPOFOL 100 ML IVPB SCH ×4 (06:01→20:01)
[2016-10-11 06:35] LABS: EOSINOPHIL 4.5 % (0-4.5); MCH 31.8 pg (25.7-33.7); MCHC 32.3 g/dl (32.0-35.9); MEAN CELL VOLUME 98.4 fl (80-96); MEAN PLT VOLUME 9.7 fl (7.5-11.1); NEUTROPHILS 65.4 % (42.8-82.8); PLATELET COUNT 99 K/MM3 (134-434); RDW 16.7 % (11.9-15.9); WHITE BLOOD COUNT 6.1 K/mm3 (4.0-10.0)
--- NOTE | 2016-10-11 06:41 | PN ---
Progress Note (short form) - Note Progress Note: PULM / CRITICAL CARE PROGRESS NOTE: Pt seen and examined in the ICU 24 HOUR EVENTS: -Remains intubated and sedated, on 60% FiO2 and PEEP of 10 (lower PEEP to 8 today). He is net negative with lasix, having low grade fevers. CT Chest yesterday with b/l effusions and RLL infiltrate vs atelectasis. Current Medications Acetaminophen (Tylenol -) 650 mg PO Q6H PRN PRN Reason: FEVER OR PAIN Amino Acids (Prosource No Carb Liquid Pkt) 30 ml PO BID@0800,1730 [facility] Last Admin: 10/10/16 18:11 Dose: 30 ml Apixaban (Eliquis -) 5 mg PO BID [facility] Last Admin: 10/10/16 22:00 Dose: 5 mg Carvedilol (Coreg -) 3.125 mg NGT BID [facility] Last Admin: 10/10/16 22:00 Dose: 3.125 mg Chlorhexidine Gluconate (Hibiclens For Decolonization -) 1 applic TP HS [facility] Last Admin: 10/10/16 22:00 Dose: 1 applic Chlorhexidine Gluconate (Peridex -) 15 ml MM BID [facility] Last Admin: 10/10/16 22:00 Dose: 15 ml Furosemide (Lasix Injection -) 80 mg IVPUSH BID@0600,1400 [facility] Last Admin: 10/11/16 05:18 Dose: 80 mg Pantoprazole Sodium (Protonix 40mg Ivpb (Pre-Docked)) 100 mls @ 200 mls/hr IVPB DAILY [facility] Last Admin: 10/10/16 09:17 Dose: 200 mls/hr Fentanyl 500 mcg/ Dextrose 100 mls @ 5 mls/hr IJ TITR LYNETTE PRN Reason: 25 MCG/HR Last Admin: 10/11/16 01:41 Dose: 10 mls/hr Propofol (Diprivan -) 100 mls @ 3.81 mls/hr IVPB TITR LYNETTE; 5 MCG/KG/MIN PRN Reason: Protocol Last Admin: 10/11/16 06:01 Dose: 19.051 mls/hr Vasopressin 50 units/ Sodium (Chloride) 100 mls @ 4 mls/hr IVPB ASDIR LYNETTE; 2 UNITS/HR PRN Reason: Protocol Last Titration: 10/10/16 01:57 Dose: 1 units/hr Piperacillin Sod/Tazobactam Sod (Zosyn 4.5gm Ivpb (Pre-Docked)) 100 mls @ 200 mls/hr IVPB Q8H-IV [facility] PRN Reason: Protocol Last Admin: 10/11/16 02:15 Dose: 200 mls/hr Polyethylene Glycol (Miralax (For Daily Use) -) 17 gm PO BID [facility] Last Admin: 10/10/16 22:30 Dose: 17 gm Potassium Chloride (Potassium Chloride Oral Liquid) 40 meq PO DAILY [facility] Last Admin: 10/10/16 09:17 Dose: 40 meq Vital Signs Temp 100.3 F H 10/11/16 02:00 Pulse 100 H 10/11/16 04:00 Resp 14 10/11/16 05:15 BP 111/66 10/11/16 04:00 Pulse Ox 94 L 10/10/16 22:00 Intake & Output 10/10/16 10/10/16 10/11/16 06:59 18:59 06:59 Intake Total 1083.2 1519.2 416 Output Total 800 2850 400 Balance 283.2 -1330.8 16 Weight 121.245 kg 119.839 kg Intake: IV 363.2 349.2 116 Diprivan - 100 ml @ 5 MCG 229.2 229.2 76 /KG/MIN 3.81 mls/hr IVPB TITR [facility] Rx#:[id number] Pitressin - 50 Units In 14 0 Normal Saline - 97.5 ml @ 2 UNITS/HR 4 mls/hr IVPB ASDIR [facility] Rx#: [id number] fentanyl 120 120 40 IVPB 450 Oral 0 Tube Feeding 600 600 200 Tube Irrigant 120 120 100 Output: Urine 800 2850 400 Hilario 800 2850 400 Other: Voiding Method Indwelling Catheter Indwelling Catheter Indwelling Catheter Bowel Movement No Weight Measurement Method Built in [facility] Built in [facility] EXAM: Neuro: sedated Chest: crackles, diminished, no wheezing Heart: Irregular Abd: obese, soft, non-tender Ext: warm, chronic vascular changes in LE, clubbed fingers and toes, trace edema labs pending Microbiology 10/05/16 19:00 Blood Culture - Final Blood - Central Line NO GROWTH AFTER 5 DAYS INCUBATION 10/05/16 19:00 Blood Culture - Final Blood - Central Line NO GROWTH AFTER 5 DAYS INCUBATION 10/08/16 20:00 Gram Stain - Final Sputum - Endotrachea Suction/Ventilator Sputum Culture - Preliminary NORMAL RESPIRATORY [place]YTON 10/05/16 19:00 Respiratory Virus Panel - Preliminary Nasopharyngeal Swab 10/08/16 08:40 Blood Culture - Preliminary Blood - Peripheral Venous NO GROWTH OBTAINED AFTER 48 HOURS, INCUBATION TO CONTINUE FOR 3 DAYS. 10/08/16 08:40 Blood Culture - Preliminary Blood - Peripheral Venous NO GROWTH OBTAINED AFTER 48 HOURS, INCUBATION TO CONTINUE FOR 3 DAYS. Problem List - Problems (1) Atrial fibrillation, new onset Code(s): I48.91 - UNSPECIFIED ATRIAL FIBRILLATION (2) Congestive heart failure (CHF) Code(s): I50.9 - HEART FAILURE, UNSPECIFIED Qualifiers: Congestive heart failure type: combined Congestive heart failure chronicity: acute Qualified Code(s): I50.41 - Acute combined systolic ( congestive) and diastolic (congestive) heart failure (3) Edema of scrotum Code(s): N50.89 - OTHER SPECIFIED DISORDERS OF THE MALE GENITAL ORGANS (4) Lymphedema of both lower extremities Code(s): I89.0 - LYMPHEDEMA, NOT ELSEWHERE CLASSIFIED (5) Acute respiratory failure requiring reintubation Code(s): J96.00 - ACUTE RESPIRATORY FAILURE, UNSP W HYPOXIA OR HYPERCAPNIA (6) Sleep apnea Code(s): G47.30 - SLEEP APNEA, UNSPECIFIED Qualifiers: Sleep apnea type: unspecified type Qualified Code(s): G47.30 - Sleep apnea, unspecified (7) Renal insufficiency Code(s): N28.9 - DISORDER OF KIDNEY AND URETER, UNSPECIFIED (8) Morbid obesity Code(s): E66.01 - MORBID (SEVERE) OBESITY DUE TO EXCESS CALORIES ASSESSMENT AND PLAN: Acute on chronic Hypoxic and Hypercapneic Respiratory Failure Acute on ?Chronic LV Systolic Heart Failure Pulmonary HTN Volume Overload Atrial Fibrillation with RVR Acute Kidney Injury Hyperthyroidism Fevers - f/u pending repeat cultures - ABX per ID - continue lasix - monitor urine output, creatinine - daily weights, I/Os - continue anticoagulation - inhaled bronchodilators - attempt to taper FiO2, PEEP to keep SpO2 >90% - daily SBT, not a candidate for weaning at this time due to high oxygen requirements and PEEP - enteral feeds - DVT/GI prophylaxis - continue ICU monitoring 35 min Tim Nunes Pulm/Critical Care [employer]
[2016-10-11 06:55] LABS: CALCIUM 7.7 mg/dL (8.5-10.1); COCKROFT - GAULT 144.25; CREATININE 0.9 mg/dL (0.7-1.3); MAGNESIUM 2.1 mg/dL (1.8-2.4)
--- NOTE | 2016-10-11 07:50 | PN ---
Progress Note, Physician Chief Complaint: ID Remains intubated Low grade fevers - Current Medication List Current Medications: Active Medications Acetaminophen (Tylenol -) 650 mg PO Q6H PRN PRN Reason: FEVER OR PAIN Amino Acids (Prosource No Carb Liquid Pkt) 30 ml PO BID@0800,1730 [facility] Last Admin: 10/10/16 18:11 Dose: 30 ml Apixaban (Eliquis -) 5 mg PO BID [facility] Last Admin: 10/10/16 22:00 Dose: 5 mg Carvedilol (Coreg -) 3.125 mg NGT BID [facility] Last Admin: 10/10/16 22:00 Dose: 3.125 mg Chlorhexidine Gluconate (Hibiclens For Decolonization -) 1 applic TP HS [facility] Last Admin: 10/10/16 22:00 Dose: 1 applic Chlorhexidine Gluconate (Peridex -) 15 ml MM BID [facility] Last Admin: 10/10/16 22:00 Dose: 15 ml Furosemide (Lasix Injection -) 80 mg IVPUSH BID@0600,1400 [facility] Last Admin: 10/11/16 05:18 Dose: 80 mg Pantoprazole Sodium (Protonix 40mg Ivpb (Pre-Docked)) 100 mls @ 200 mls/hr IVPB DAILY [facility] Last Admin: 10/10/16 09:17 Dose: 200 mls/hr Fentanyl 500 mcg/ Dextrose 100 mls @ 5 mls/hr IJ TITR LYNETTE PRN Reason: 25 MCG/HR Last Admin: 10/11/16 01:41 Dose: 10 mls/hr Propofol (Diprivan -) 100 mls @ 3.81 mls/hr IVPB TITR LYNETTE; 5 MCG/KG/MIN PRN Reason: Protocol Last Admin: 10/11/16 06:01 Dose: 19.051 mls/hr Vasopressin 50 units/ Sodium (Chloride) 100 mls @ 4 mls/hr IVPB ASDIR LYNETTE; 2 UNITS/HR PRN Reason: Protocol Last Titration: 10/10/16 01:57 Dose: 1 units/hr Piperacillin Sod/Tazobactam Sod (Zosyn 4.5gm Ivpb (Pre-Docked)) 100 mls @ 200 mls/hr IVPB Q8H-IV LYNETTE PRN Reason: Protocol Last Admin: 10/11/16 02:15 Dose: 200 mls/hr Polyethylene Glycol (Miralax (For Daily Use) -) 17 gm PO BID [facility] Last Admin: 10/10/16 22:30 Dose: 17 gm Potassium Chloride (Potassium Chloride Oral Liquid) 40 meq PO DAILY [facility] Last Admin: 10/10/16 09:17 Dose: 40 meq - Objective Vital Signs: Vital Signs Temperature 100.3 F H 10/11/16 06:00 Pulse Rate 97 H 10/11/16 06:00 Respiratory Rate 14 10/11/16 06:00 Blood Pressure 91/56 10/11/16 06:00 O2 Sat by Pulse Oximetry (%) 94 L 10/10/16 22:00 Cardiovascular: Yes: Pulse Irregular, S1, S2 Respiratory: Yes: WNL, Regular, CTA Bilaterally, Diminished Gastrointestinal: Yes: WNL, Normal Bowel Sounds, Soft. No: Tenderness, Tenderness, Rebound Genitourinary: Yes: Scrotal Edema Extremities: Yes: Other (Venous stasis changes) Labs: CBC, BMP 10/11/16 05:00 10/11/16 05:00 INR, PTT INR 1.27 (0.82-1.09) H 10/05/16 19:00 Assessment/Plan Microbiology 10/08/16 20:00 Sputum - Endotrachea Suction/Ventilator Gram Stain - Final 10/08/16 20:00 Sputum - Endotrachea Suction/Ventilator Sputum Culture - Preliminary NORMAL RESPIRATORY JOSE ANTONIO Laboratory Tests 10/09/16 10/10/16 10/11/16 05:05 08:28 05:00 WBC Hct Plt Count ABG pCO2 at Pt Temp 67.5 H* BUN 27 H D Creatinine 0.9 Total Bilirubin 2.2 H AST 44 H ALT 18 10/11/16 05:00 WBC 6.1 Hct 51.2 H Plt Count 99 L ABG pCO2 at Pt Temp BUN Creatinine Total Bilirubin AST ALT Assessment Acute respiratory Failure Effusions and basilar consolidation Atrial fibrillation Scrotal edema Plan Sputum culture 4/5 normal respiratory jose antonio Given vanco and zosyn per housestaff CT scan reviewed Would give Ceftriaxone if sputum does not show GNB resistant Tucker MCDANIEL
[2016-10-11] MEDS ORDERED: PT OWN MED DRAWER 7, Y5N ONE ×3 (08:23→21:16)
[2016-10-11] MEDS: AMINO ACIDS/PROTEIN HYDROLYS 30 ML LIQUID.PKT PO SCH ×2 (08:30→17:35)
[2016-10-11 08:36] LABS: ARTERIAL BLD GAS O2 SATURATION 93.9 % (90-98.9); ARTERIAL BLOOD GAS BASE EXCESS 13.6 meq/l (-2-2); ARTERIAL BLOOD GAS HCO3 41.5 meq/L (22-26); ARTERIAL BLOOD GAS pH 7.43 (7.35-7.45)
[2016-10-11 08:39] LABS: ALLENS TEST POSITIVE; ART PUNCT SITE LEFT RADIAL; ARTERIAL BLOOD GAS PO2 69.2 mmHg (80-100); LPM/O2% 60%; MECH. VENT. ESPRIT; PT. ON O2? YES; TYPE OF O2 OT; VENT RATE 14; VT/PRESS 475
--- NOTE | 2016-10-11 08:50 | PN ---
Progress Note (short form) - Note Progress Note: Subjective: no events over night , PEEP was decreased . Objective: Vital Signs: Last Vital Signs Temp Pulse Resp BP Pulse Ox 100.2 F H 115 H 16 100/64 94 L 10/11/16 08:00 10/11/16 08:00 10/11/16 08:00 10/11/16 08:00 10/10/16 22:00 I&O: Intake & Output 10/08/16 10/09/16 10/10/16 10/11/16 23:59 23:59 23:59 23:59 Intake Total 2659.4 2897.2 3018.4 753 Output Total 4100 3800 3850 700 Balance -1440.6 -902.8 -831.6 53 Weight 266 lb 5.094 oz 266 lb 6.4 oz 267 lb 4.8 oz 264 lb 3.2 oz Laboratory Results - last 24 hr 10/09/16 10/11/16 10/11/16 05:05 05:00 05:00 WBC RBC Hgb Hct MCV MCHC RDW Plt Count MPV Neutrophils % Lymphocytes % Monocytes % Eosinophils % Basophils % PTT (Actin FS) 33.9 Puncture Site ABG pH ABG pCO2 at Pt Temp ABG pO2 at Pt Temp ABG HCO3 ABG O2 Sat (Measured) ABG O2 Content ABG Base Excess Ye Test O2 Delivery Device Oxygen Flow Rate Vent Mode Vent Rate Mechanical Rate PEEP Pressure Support Vent Sodium 144 Potassium 3.5 Chloride 95 L Carbon Dioxide 41 H Anion Gap 8 BUN 27 H D Creatinine 0.9 Random Glucose 107 H D Calcium 7.7 L Phosphorus 3.0 Magnesium 2.1 Free T4 1.21 10/11/16 10/11/16 05:00 08:35 WBC 6.1 RBC 5.20 Hgb 16.5 Hct 51.2 H MCV 98.4 H MCHC 32.3 RDW 16.7 H Plt Count 99 L MPV 9.7 Neutrophils % 65.4 Lymphocytes % 13.6 Monocytes % 15.5 H Eosinophils % 4.5 Basophils % 1.0 PTT (Actin FS) Puncture Site Left radial ABG pH 7.43 ABG pCO2 at Pt Temp 63.4 H* ABG pO2 at Pt Temp 69.2 L ABG HCO3 41.5 H* ABG O2 Sat (Measured) 93.9 ABG O2 Content 21.6 ABG Base Excess 13.6 H Ye Test Positive O2 Delivery Device Ot Oxygen Flow Rate 60% Vent Mode Ac Vent Rate 14 Mechanical Rate Esprit PEEP 8.0 Pressure Support Vent 475 Sodium Potassium Chloride Carbon Dioxide Anion Gap BUN Creatinine Random Glucose Calcium Phosphorus Magnesium Free T4 [place] Physical Exam: NAD , sedated, intubated ,tries to open eyes to verbal stimulation no JVD CV: irreg irreg Lungs ; decreased breath sounds at bases . ABd: 1+ abd wall edema , no TTP , hypoactive BS Ext : improved pitting edema . Scrotal swelling and pitting edema ( 2+ ) ASSESSMENT AND PLAN: 60 y/o man with ho GERD, HTN, previously mildly reduced EF who presented with scrotal swelling and was diagnosed with acute hypoxic resp failure due to acute CHF exacerbation 1- Acute hypoxic hypercapnic reap failure: 2/2 acute CHF exacerbation and developing PNA - Cont lasix at 80 BID , although Net neg for 800cc only in past 24 hr , will not increase dose today as he just got 80 x1 yesterday. PEEP is 8 today , improved -cont Zosyn for now , pending final sputum cx - follow blood cx - CT scan of chest , reviewed, b/l atelectasis and LLL infiltrate - cont vent support . cont to taper down PEEP and FiO2 - can use inoptrops if BP drops again 2- Cardiogenic shock: - off pressors now - If hypotensive again, can use inotrop 3- MONIE : due to pre-renal azotemia from decreased FURNACE TAPPER . - cont to monitor 4- New onset A fib. - Eliquis - cont BB as hemodynamics allow 5- Electrolytes abn :monitor and replete as needed ICU level of care Visit type - Emergency Visit Emergency Visit: Yes ED Registration Date: 10/05/16 Care time: The patient presented to the Emergency Department on the above date and was hospitalized for further evaluation of their emergent condition. - New Patient This patient is new to me today: No - Critical Care Critical Care patient: Yes Total Critical Care Time (in minutes): 25
[2016-10-11] MEDS: POTASSIUM CHLORIDE ORAL LIQUID 20 MEQ/15 ML PO SCH (09:04)
[2016-10-11] MEDS: PANTOPRAZOLE SODIUM 100 ML IVPB SCH (09:04)
[2016-10-11] MEDS: CHLORHEXIDINE GLUCONATE 0.12% 15ML CUP MM SCH ×2 (09:05→21:12)
[2016-10-11] MEDS: CARVEDILOL 3.125 MG TABLET (FP) NGT SCH ×2 (09:05→21:11)
[2016-10-11] MEDS: ACETAMINOPHEN 325 MG TABLET (FP) PO PRN (09:05)
[2016-10-11] MEDS: POLYETHYLENE GLYCOL 3350 119 GM BTL PO SCH ×2 (09:07→21:14)
[2016-10-11] MEDS: APIXABAN 5 MG TABLET PO SCH ×2 (09:27→21:18)
--- NOTE | 2016-10-11 10:19 | PN ---
Progress Note (short form) - Note Progress Note: RENAL Pt is intubated and sedated appears comfortable Last Vital Signs Temp Pulse Resp BP Pulse Ox 100.3 F H 95 H 14 107/75 94 L 10/11/16 10:00 10/11/16 10:00 10/11/16 10:00 10/11/16 10:00 10/11/16 09:31 lungs clear cvs s1s2 rr abd soft, decreased bowel sounds ext +edema, has signs of venous insufficiency neuro intubated CBC, BMP 10/11/16 05:00 10/11/16 05:00 Current Medications Generic Name Dose Route Start Last Admin Trade Name Freq PRN Reason Stop Dose Admin Acetaminophen 650 mg 10/10/16 15:28 10/11/16 09:05 Tylenol - PO 650 mg Q6H PRN Administration FEVER OR PAIN Amino Acids 30 ml 10/10/16 17:30 10/11/16 08:30 Prosource No Carb Liquid Pkt PO 30 ml BID@0800,1730 LYNETTE Administration Apixaban 5 mg 10/09/16 10:30 10/11/16 09:27 Eliquis - PO 5 mg BID LYNETTE Administration Carvedilol 3.125 mg 10/09/16 10:30 10/11/16 09:05 Coreg - NGT 3.125 mg BID LYNETTE Administration Chlorhexidine Gluconate 1 applic 10/05/16 22:00 10/10/16 22:00 Hibiclens For Decolonization - TP 1 applic HS LYNETTE Administration Chlorhexidine Gluconate 15 ml 10/06/16 10:00 10/11/16 09:05 Peridex - MM 15 ml BID LYNETTE Administration Furosemide 80 mg 10/10/16 10:33 10/11/16 05:18 Lasix Injection - IVPUSH 80 mg BID@0600,1400 LYNETTE Administration Pantoprazole Sodium 100 mls @ 200 mls/hr 10/06/16 10:00 10/11/16 09:04 Protonix 40mg Ivpb (Pre-Docked) IVPB 200 mls/hr DAILY [facility]YNETTE Administration Fentanyl 500 mcg/ Dextrose 100 mls @ 5 mls/hr 10/05/16 20:45 10/11/16 01:41 IJ 10 mls/hr TITR LYNETTE Administration 25 MCG/HR Propofol 100 mls @ 3.81 mls/hr 10/05/16 21:45 10/11/16 06:01 Diprivan - IVPB 19.051 mls/hr TITR LYNETTE Administration Protocol 5 MCG/KG/MIN Vasopressin 50 units/ Sodium 100 mls @ 4 mls/hr 10/09/16 23:00 10/10/16 01:57 Chloride IVPB 1 units/hr ASDIR LYNETTE Titration Protocol 2 UNITS/HR Piperacillin Sod/Tazobactam Sod 100 mls @ 200 mls/hr 10/10/16 18:00 10/11/16 09 :06 Zosyn 4.5gm Ivpb (Pre-Docked) IVPB 200 mls/hr Q8H-IV LYNETTE Administration Protocol Polyethylene Glycol 17 gm 10/09/16 22:00 10/11/16 09:07 Miralax (For Daily Use) - PO 17 gm BID LYNETTE Administration Potassium Chloride 40 meq 10/08/16 10:00 10/11/16 09:04 Potassium Chloride Oral Liquid PO 40 meq DAILY LYNETTE Administration Impression 1. Azotemia 2. CHF acute- mild to moderate reduction in EF based on echo 3. acute resp failure requiring intubation 4. new onset atrial fibrillation 5. hx of htn 6. obesity 7. chronic smoker 8. hypokalemia Plan - cont with lasix -once bp stable will need an areli inhibitor - monitor urine output - keep net negative - daily cxr -cautious use of propofol given hypotension -if bicarb rising would be a candidate for diamox since he remains fluid overloaded MV
[2016-10-11] MEDS ORDERED: ACETAMINOPHEN 1000 MG/100 ML VIAL (NON FORMULARY) IVPB ONE (13:30)
[2016-10-11] MEDS: FUROSEMIDE INJECTION 100 MG in DEXTROSE 5%-WATER - 90 ML IVPB SCH ×2 (13:45→23:20)
[2016-10-11 14:06] LABS: URINE APPEARANCE CLEAR; URINE BILIRUBIN NEGATIVE (NEGATIVE); URINE COLOR YELLOW; URINE GLUCOSE (UA) NEGATIVE (NEGATIVE); URINE KETONE NEGATIVE (NEGATIVE); URINE LEUK ESTERASE NEGATIVE (NEGATIVE); URINE NITRITE NEGATIVE (NEGATIVE); URINE PROTEIN NEGATIVE (NEGATIVE); URINE UROBILINOGEN 4.0 E.U/dl E.U./dl (0.2-1.0)
[2016-10-11 14:07] LABS: URINE BLOOD 2+ (NEGATIVE)
[2016-10-11 14:11] LABS: URINE RBC 60 /hpf (0-3); URINE WBC 2 /hpf (3-5)
[2016-10-11] MEDS ORDERED: VANCOMYCIN 1,500 MG in DEXTROSE 5%-WATER - 500 ML IVPB ONE (14:12)
[2016-10-11] MEDS ORDERED: METOLAZONE 5 MG TABLET PO ONE (14:15)
[2016-10-11] MEDS ORDERED: FUROSEMIDE 100 MG/10 ML INJECTABLE VIAL ONE ×2 (14:26→21:41)
--- NOTE | 2016-10-11 17:01 | PN ---
Progress Note, Physician History of Present Illness: Remains on vent with elevated FIO2 requirement, remains in afib, diuresed off 3 lbs with low grade fevers. - Current Medication List Current Medications: Active Medications Acetaminophen (Tylenol -) 650 mg PO Q6H PRN PRN Reason: FEVER OR PAIN Last Admin: 10/11/16 09:05 Dose: 650 mg Amino Acids (Prosource No Carb Liquid Pkt) 30 ml PO BID@0800,1730 [facility] Last Admin: 10/11/16 08:30 Dose: 30 ml Apixaban (Eliquis -) 5 mg PO BID [facility] Last Admin: 10/11/16 09:27 Dose: 5 mg Carvedilol (Coreg -) 3.125 mg NGT BID [facility] Last Admin: 10/11/16 09:05 Dose: 3.125 mg Chlorhexidine Gluconate (Hibiclens For Decolonization -) 1 applic TP HS [facility] Last Admin: 10/10/16 22:00 Dose: 1 applic Chlorhexidine Gluconate (Peridex -) 15 ml MM BID [facility] Last Admin: 10/11/16 09:05 Dose: 15 ml Pantoprazole Sodium (Protonix 40mg Ivpb (Pre-Docked)) 100 mls @ 200 mls/hr IVPB DAILY [facility] Last Admin: 10/11/16 09:04 Dose: 200 mls/hr Fentanyl 500 mcg/ Dextrose 100 mls @ 5 mls/hr IJ TITR LYNETTE PRN Reason: 25 MCG/HR Last Admin: 10/11/16 13:07 Dose: 10 mls/hr Propofol (Diprivan -) 100 mls @ 3.81 mls/hr IVPB TITR LYNETTE; 5 MCG/KG/MIN PRN Reason: Protocol Last Admin: 10/11/16 15:25 Dose: 19.051 mls/hr Vasopressin 50 units/ Sodium (Chloride) 100 mls @ 4 mls/hr IVPB ASDIR LYNETTE; 2 UNITS/HR PRN Reason: Protocol Last Titration: 10/10/16 01:57 Dose: 1 units/hr Piperacillin Sod/Tazobactam Sod (Zosyn 4.5gm Ivpb (Pre-Docked)) 100 mls @ 200 mls/hr IVPB Q8H-IV LYNETTE PRN Reason: Protocol Last Admin: 10/11/16 09:06 Dose: 200 mls/hr Furosemide 100 mg/ Dextrose 100 mls @ 10 mls/hr IVPB TITR LYNETTE PRN Reason: 10 MG/HR Last Admin: 10/11/16 13:45 Dose: 10 mls/hr Polyethylene Glycol (Miralax (For Daily Use) -) 17 gm PO BID [facility] Last Admin: 10/11/16 09:07 Dose: 17 gm Potassium Chloride (Potassium Chloride Oral Liquid) 40 meq PO DAILY [facility] Last Admin: 10/11/16 09:04 Dose: 40 meq - Objective Vital Signs: Vital Signs Temperature 100.6 F H 10/11/16 14:00 Pulse Rate 124 H 10/11/16 14:00 Respiratory Rate 19 10/11/16 14:33 Blood Pressure 105/64 10/11/16 14:00 O2 Sat by Pulse Oximetry (%) 94 L 10/11/16 09:31 Cardiovascular: Yes: Tachycardia, Pulse Irregular Respiratory: Yes: Diminished, Intubated, Mechanically Ventilated, Rhonchi Gastrointestinal: Yes: Normal Bowel Sounds, Soft, Abdomen, Obese Edema: Yes Edema: LLE: Trace, RLE: Trace Labs: CBC, BMP 10/11/16 05:00 10/11/16 05:00 INR, PTT INR 1.27 (0.82-1.09) H 10/05/16 19:00 - ....Imaging Cat Scan: Report Reviewed (R>L effusions with air bronchograms in right infiltrate) Problem List - Problems (1) Atrial fibrillation, new onset Code(s): I48.91 - UNSPECIFIED ATRIAL FIBRILLATION (2) Sleep apnea Code(s): G47.30 - SLEEP APNEA, UNSPECIFIED Qualifiers: Sleep apnea type: unspecified type Qualified Code(s): G47.30 - Sleep apnea, unspecified (3) Acute on chronic diastolic (congestive) heart failure Code(s): I50.33 - ACUTE ON CHRONIC DIASTOLIC (CONGESTIVE) HEART FAILURE (4) Acute hypercapnic respiratory failure Code(s): J96.02 - ACUTE RESPIRATORY FAILURE WITH HYPERCAPNIA Assessment/Plan Echocardiography revealed mild to moderate LV systolic dysfunction, moderate TR , RVSP of 30-40 mmHg 1. Acute class III-IV NYHA classification LV failure related to systolic LV dysfunction 2. Persistent atrial fibrillation with improved ventricular response, [id number] score of 2 3. Acute Hypoxic and Hypercapneic Respiratory Failure with PNA 4. Thrombocytopenia 5. MONIE resolved 6. OSAS noncompliant on cpap per mother PLAN: 1. Started Lasix gtt @ 10 with monitor diuretic response, renal fxn and electrolytes 2. Continue carvedilol 3.125 bid as hemodynamics tolerate 3. Continue Eliquis 5 bid, abx course per ID 4. Ideally should be on ACEI or ARBS as hemodynamic tolerate 5. Vent support, BD and enteral feeds, GI prophylaxis, cpap as outpatient
[2016-10-11] MEDS: CHLORHEXIDINE GLUCONATE 4% CLEANSER FOR DECOLONIZATION TP SCH (21:12)
[2016-10-12] MEDS: PROPOFOL 100 ML IVPB SCH ×5 (01:41→20:56)
[2016-10-12] MEDS: PIPERACILLIN/TAZOB 4.5 GM 100 ML IVPB SCH ×3 (01:42→17:07)
[2016-10-12 06:19] LABS: MCH 32.3 pg (25.7-33.7); MCHC 33.1 g/dl (32.0-35.9); MEAN CELL VOLUME 97.5 fl (80-96); MEAN PLT VOLUME 9.8 fl (7.5-11.1); PLATELET COUNT 115 K/MM3 (134-434); RDW 16.2 % (11.9-15.9); WHITE BLOOD COUNT 6.9 K/mm3 (4.0-10.0)
[2016-10-12 06:45] LABS: ALBUMIN 2.5 g/dl (3.4-5.0); BILIRUBIN,TOTAL 2.1 mg/dL (0.2-1.0); CALCIUM 8.3 mg/dL (8.5-10.1); COCKROFT - GAULT 127.02; GLUCOSE,RANDOM 117 mg/dL (74-106); MAGNESIUM 2.1 mg/dL (1.8-2.4); PHOSPHOROUS 4.3 mg/dL (2.5-4.9); SGOT/AST 38 U/L (15-37); SGPT/ALT 37 U/L (12-78); TOT PROT 5.9 g/dl (6.4-8.2)
[2016-10-12 06:47] LABS: ALK PHOS 71 U/L (45-117)
[2016-10-12 06:59] LABS: ANION GAP 4 (8-16); CO2 50 mmol/L (21-32)
--- NOTE | 2016-10-12 07:00 | PN ---
Progress Note (short form) - Note Progress Note: Seen and examined in the ICU Remains intubated and sedated Attempted to wean PEEP 10->8 yesterday but had desaturations ultimately increased to 12 This AM saturation 89% Cont to have thick yellow secretions and low grade fevers Cultures remain negative Cont on lasix drip for goal net out BP stable off pressors Current Medications Acetaminophen (Tylenol -) 650 mg PO Q6H PRN PRN Reason: FEVER OR PAIN Last Admin: 10/11/16 09:05 Dose: 650 mg Amino Acids (Prosource No Carb Liquid Pkt) 30 ml PO BID@0800,1730 [facility] Last Admin: 10/11/16 17:35 Dose: 30 ml Apixaban (Eliquis -) 5 mg PO BID [facility] Last Admin: 10/11/16 21:18 Dose: 5 mg Carvedilol (Coreg -) 3.125 mg NGT BID [facility] Last Admin: 10/11/16 21:11 Dose: 3.125 mg Chlorhexidine Gluconate (Hibiclens For Decolonization -) 1 applic TP HS [facility] Last Admin: 10/11/16 21:12 Dose: 1 applic Chlorhexidine Gluconate (Peridex -) 15 ml MM BID [facility] Last Admin: 10/11/16 21:12 Dose: 15 ml Pantoprazole Sodium (Protonix 40mg Ivpb (Pre-Docked)) 100 mls @ 200 mls/hr IVPB DAILY [facility] Last Admin: 10/11/16 09:04 Dose: 200 mls/hr Fentanyl 500 mcg/ Dextrose 100 mls @ 5 mls/hr IJ TITR LYNETTE PRN Reason: 25 MCG/HR Last Admin: 10/11/16 23:19 Dose: 10 mls/hr Propofol (Diprivan -) 100 mls @ 3.81 mls/hr IVPB TITR LYNETTE; 5 MCG/KG/MIN PRN Reason: Protocol Last Admin: 10/12/16 06:18 Dose: 19.051 mls/hr Piperacillin Sod/Tazobactam Sod (Zosyn 4.5gm Ivpb (Pre-Docked)) 100 mls @ 200 mls/hr IVPB Q8H-IV LYNETTE PRN Reason: Protocol Last Admin: 10/12/16 01:42 Dose: 200 mls/hr Furosemide 100 mg/ Dextrose 100 mls @ 10 mls/hr IVPB TITR LYNETTE PRN Reason: 10 MG/HR Last Admin: 10/11/16 23:20 Dose: 10 mls/hr Polyethylene Glycol (Miralax (For Daily Use) -) 17 gm PO BID [facility] Last Admin: 10/11/16 21:14 Dose: 17 gm Potassium Chloride (Potassium Chloride Oral Liquid) 40 meq PO DAILY [facility] Last Admin: 10/11/16 09:04 Dose: 40 meq Vital Signs Period Temp Pulse Resp BP Sys/Clements Pulse Ox Last 24 Hr 100.1 F-100.6 F 95-124 14-19 89-120/55-78 94-95 Intake & Output 10/09/16 10/10/16 10/11/16 10/12/16 23:59 23:59 23:59 23:59 Intake Total 2897.2 3018.4 2260.1 753.7 Output Total 3800 3850 5375 1900 Balance -902.8 -831.6 -3114.9 -1146.3 Weight 120.837 kg 121.245 kg 119.839 kg 117.254 kg Exam: Intubated and sedated HEENT: PERRL CV: RRR S1, S2 Pulm: coarse bronchial bilateral Abd: obese, soft Ext: LE +2-3 edema with chronic venous stasis changes Neuro: RASS -4/5 CBCD WBC 6.9 K/mm3 (4.0-10.0) 10/12/16 06:00 RBC 5.40 M/mm3 (4.00-5.60) 10/12/16 06:00 Hgb 17.4 GM/dL (11.7-16.9) H 10/12/16 06:00 Hct 52.7 % (35.4-49) H 10/12/16 06:00 MCV 97.5 fl (80-96) H 10/12/16 06:00 MCHC 33.1 g/dl (32.0-35.9) 10/12/16 06:00 RDW 16.2 % (11.9-15.9) H 10/12/16 06:00 Plt Count 115 K/MM3 (134-434) L 10/12/16 06:00 MPV 9.8 fl (7.5-11.1) 10/12/16 06:00 CMP Sodium 141 mmol/L (136-145) 10/12/16 06:00 Potassium 3.2 mmol/L (3.5-5.1) L 10/12/16 06:00 Chloride 87 mmol/L (98-107) L 10/12/16 06:00 Carbon Dioxide 41 mmol/L (21-32) H 10/11/16 05:00 Anion Gap 8 (8-16) 10/11/16 05:00 BUN 33 mg/dL (7-18) H D 10/12/16 06:00 Creatinine 1.0 mg/dL (0.7-1.3) 10/12/16 06:00 Creat Clearance w eGFR > 60 (>60) 10/12/16 06:00 Random Glucose 117 mg/dL (74-106) H 10/12/16 06:00 Calcium 8.3 mg/dL (8.5-10.1) L 10/12/16 06:00 Total Bilirubin 2.1 mg/dL (0.2-1.0) H 10/12/16 06:00 AST 38 U/L (15-37) H 10/12/16 06:00 ALT 37 U/L (12-78) D 10/12/16 06:00 Alkaline Phosphatase 71 U/L (45-117) D 10/12/16 06:00 Total Protein 5.9 g/dl (6.4-8.2) L 10/12/16 06:00 Albumin 2.5 g/dl (3.4-5.0) L 10/12/16 06:00 CARDIAC ENZYMES Creatine Kinase 493 IU/L (39-308) H D 10/07/16 05:55 Troponin I < 0.02 ng/ml (0.00-0.05) 10/07/16 05:55 ABG Results ABG pH 7.44 (7.35-7.45) 10/12/16 07:35 ABG pCO2 at Pt Temp 69.7 mmHg (35-45) H* 10/12/16 07:35 ABG pO2 at Pt Temp 69.0 mmHg (80-100) L 10/12/16 07:35 ABG HCO3 46.5 meq/L (22-26) H* 10/12/16 07:35 ABG O2 Sat (Measured) 93.9 % (90-98.9) 10/12/16 07:35 ABG O2 Content 22.9 % vol (15-22) H 10/12/16 07:35 ABG Base Excess 17.1 meq/l (-2-2) H* 10/12/16 07:35 CXR: poor study, cont to have bilateral infiltrates, ETT high Microbiology 10/10/16 17:30 Blood - Peripheral Venous Blood Culture - Preliminary NO GROWTH OBTAINED AFTER 24 HOURS, INCUBATION TO CONTINUE FOR 4 DAYS. 10/10/16 17:30 Blood - Peripheral Venous Blood Culture - Preliminary NO GROWTH OBTAINED AFTER 24 HOURS, INCUBATION TO CONTINUE FOR 4 DAYS. 10/10/16 18:41 Sputum - Endotrachea Suction/Ventilator Gram Stain - Final 10/08/16 20:00 Sputum - Endotrachea Suction/Ventilator Gram Stain - Final 10/08/16 20:00 Sputum - Endotrachea Suction/Ventilator Sputum Culture - Final NORMAL RESPIRATORY [place] 10/08/16 08:40 Blood - Peripheral Venous Blood Culture - Preliminary NO GROWTH OBTAINED AFTER 72 HOURS, INCUBATION TO CONTINUE FOR 2 DAYS. 10/08/16 08:40 Blood - Peripheral Venous Blood Culture - Preliminary NO GROWTH OBTAINED AFTER 72 HOURS, INCUBATION TO CONTINUE FOR 2 DAYS. 10/05/16 19:00 Blood - Central Line Blood Culture - Final NO GROWTH AFTER 5 DAYS INCUBATION 10/05/16 19:00 Blood - Central Line Blood Culture - Final NO GROWTH AFTER 5 DAYS INCUBATION 10/05/16 19:00 Nasopharyngeal Swab Respiratory Virus Panel - Preliminary 10/08/16 10:20 Urine - Urine Hilario Urine Culture - Final NO GROWTH OBTAINED 10/05/16 19:00 Urine - Urine Hilario Urine Culture - Final NO GROWTH OBTAINED 10/05/16 19:00 Nasopharyngeal Swab Influenza Types A,B Antigen (USRZULA) - Final 10/05/16 19:00 Nasopharyngeal Swab - Final Problem List - Problems (1) Atrial fibrillation, new onset Code(s): I48.91 - UNSPECIFIED ATRIAL FIBRILLATION (2) Congestive heart failure (CHF) Code(s): I50.9 - HEART FAILURE, UNSPECIFIED Qualifiers: Congestive heart failure type: combined Congestive heart failure chronicity: acute Qualified Code(s): I50.41 - Acute combined systolic ( congestive) and diastolic (congestive) heart failure (3) Edema of scrotum Code(s): N50.89 - OTHER SPECIFIED DISORDERS OF THE MALE GENITAL ORGANS (4) Lymphedema of both lower extremities Code(s): I89.0 - LYMPHEDEMA, NOT ELSEWHERE CLASSIFIED (5) Acute respiratory failure requiring reintubation Code(s): J96.00 - ACUTE RESPIRATORY FAILURE, UNSP W HYPOXIA OR HYPERCAPNIA (6) Sleep apnea Code(s): G47.30 - SLEEP APNEA, UNSPECIFIED Qualifiers: Sleep apnea type: unspecified type Qualified Code(s): G47.30 - Sleep apnea, unspecified (7) Renal insufficiency Code(s): N28.9 - DISORDER OF KIDNEY AND URETER, UNSPECIFIED (8) Morbid obesity Code(s): E66.01 - MORBID (SEVERE) OBESITY DUE TO EXCESS CALORIES ASSESSMENT AND PLAN: Acute on chronic Hypoxic and Hypercapneic Respiratory Failure Acute on ?Chronic LV Systolic Heart Failure Pulmonary HTN Volume Overload Atrial Fibrillation with RVR Acute Kidney Injury Hyperthyroidism Fevers - advance ETT 2cm - f/u pending repeat cultures - ABX per ID: zosyn/vanco - continue lasix for goal net out 1-2 liters - monitor urine output, creatinine - daily weights, I/Os - continue anticoagulation - inhaled bronchodilators - attempt to taper FiO2, PEEP to keep SpO2 >90% - daily SBT, not a candidate for weaning at this time due to high oxygen requirements and PEEP - enteral feeds - DVT/GI prophylaxis - continue ICU monitoring Aliyah CURRY Pulm/CCM CCT: 35m
[2016-10-12 07:38] LABS: ARTERIAL BLD GAS O2 SATURATION 93.9 % (90-98.9); ARTERIAL BLOOD GAS BASE EXCESS 17.1 meq/l (-2-2); ARTERIAL BLOOD GAS HCO3 46.5 meq/L (22-26); ARTERIAL BLOOD GAS pH 7.44 (7.35-7.45)
[2016-10-12 07:39] LABS: ALLENS TEST POSITIVE; ART PUNCT SITE LEFT RADIAL; LPM/O2% 80%; MECH. VENT. YES; PT. ON O2? YES; TYPE OF O2 MECH VENT; VENT RATE 14; VT/PRESS 475
[2016-10-12] MEDS: AMINO ACIDS/PROTEIN HYDROLYS 30 ML LIQUID.PKT PO SCH ×2 (08:24→17:06)
--- NOTE | 2016-10-12 10:00 | PN ---
Progress Note (short form) - Note Progress Note: Subjective: no events over night Objective: Vital Signs: Last Vital Signs Temp Pulse Resp BP Pulse Ox 100.7 F H 109 H 14 96/51 95 10/12/16 08:00 10/12/16 08:00 10/12/16 08:00 10/12/16 08:00 10/11/16 22:00 I&O: Intake & Output 10/09/16 10/10/16 10/11/16 10/12/16 23:59 23:59 23:59 23:59 Intake Total 2897.2 3018.4 2260.1 753.7 Output Total 3800 3850 5375 1900 Balance -902.8 -831.6 -3114.9 -1146.3 Weight 266 lb 6.4 oz 267 lb 4.8 oz 264 lb 3.2 oz 258 lb 8 oz Laboratory Results - last 24 hr 10/11/16 10/12/16 10/12/16 13:45 06:00 06:00 WBC 6.9 RBC 5.40 Hgb 17.4 H Hct 52.7 H MCV 97.5 H MCHC 33.1 RDW 16.2 H Plt Count 115 L MPV 9.8 PTT (Actin FS) 32.9 Puncture Site ABG pH ABG pCO2 at Pt Temp ABG pO2 at Pt Temp ABG HCO3 ABG O2 Sat (Measured) ABG O2 Content ABG Base Excess Ye Test O2 Delivery Device Oxygen Flow Rate Vent Mode Vent Rate Mechanical Rate PEEP Pressure Support Vent Sodium Potassium Chloride Carbon Dioxide Anion Gap BUN Creatinine Creat Clearance w eGFR Random Glucose Calcium Phosphorus Magnesium Total Bilirubin AST ALT Alkaline Phosphatase Total Protein Albumin Urine Color Yellow Urine Appearance Clear Urine pH 6.0 Ur Specific [place] 1.014 Urine Protein Negative Urine Glucose (UA) Negative Urine Ketones Negative Urine Blood 2+ H Urine Nitrite Negative Urine Bilirubin Negative Urine Urobilinogen 4.0 e.u/dl Ur Leukocyte Esterase Negative Urine RBC 60 Urine WBC 2 Ur Epithelial Cells Rare Random Vancomycin 10/12/16 10/12/16 10/12/16 06:00 06:00 07:35 WBC RBC Hgb Hct MCV MCHC RDW Plt Count MPV PTT (Actin FS) Puncture Site Left radial ABG pH 7.44 ABG pCO2 at Pt Temp 69.7 H* ABG pO2 at Pt Temp 69.0 L ABG HCO3 46.5 H* ABG O2 Sat (Measured) 93.9 ABG O2 Content 22.9 H ABG Base Excess 17.1 H* Ye Test Positive O2 Delivery Device Mech vent Oxygen Flow Rate 80% Vent Mode A/c Vent Rate 14 Mechanical Rate Yes PEEP 12.0 Pressure Support Vent 475 Sodium 141 Potassium 3.2 L Chloride 87 L Carbon Dioxide 50 H D Anion Gap 4 L BUN 33 H D Creatinine 1.0 Creat Clearance w eGFR > 60 Random Glucose 117 H Calcium 8.3 L Phosphorus 4.3 D Magnesium 2.1 Total Bilirubin 2.1 H AST 38 H ALT 37 D Alkaline Phosphatase 71 D Total Protein 5.9 L Albumin 2.5 L Urine Color Urine Appearance Urine pH Ur Specific [place] Urine Protein Urine Glucose (UA) Urine Ketones Urine Blood Urine Nitrite Urine Bilirubin Urine Urobilinogen Ur Leukocyte Esterase Urine RBC Urine WBC Ur Epithelial Cells Random Vancomycin 11.867 Physical Exam: NAD , sedated, intubated . no JVD CV: irreg irreg Lungs ; decreased breath sounds at bases . no crackles heard ABd: 1+ abd wall edema , no TTP , BS were not heard this am Ext : improved pitting edema . Scrotal swelling and pitting edema (2+) ASSESSMENT AND PLAN: 60 y/o man with ho GERD, HTN, previously mildly reduced EF who presented with scrotal swelling and was diagnosed with acute hypoxic resp failure due to acute CHF exacerbation 1- Acute hypoxic hypercapnic reap failure: 2/2 acute CHF exacerbation and developing PNA. PEEP was increased to 12 , and FiO2 to 80% yesterday afternoon , before starting lasix gtt - Cont lasix gtt at 10 . UOP improved on gtt . monitor I&O -cont Zosyn for now , APpreciate ID recs on VAnco use ( given 2 doses so far ) . - follow blood cx - cont vent support , hopefully can decrease PEEP today - can use inoptrops if BP drops again 2- Cardiogenic shock: - off pressors now - If hypotensive again, can use inotrop 3- MONIE : due to pre-renal azotemia from decreased [employer] . - cont to monitor 4- New onset A fib. - Eliquis - cont BB as hemodynamics allow ( hold today ) 5- Electrolytes abn :replete K and cont standing dosing ICU level of care Visit type - Emergency Visit Emergency Visit: Yes ED Registration Date: 10/05/16 Care time: The patient presented to the Emergency Department on the above date and was hospitalized for further evaluation of their emergent condition. - New Patient This patient is new to me today: No - Critical Care Critical Care patient: Yes Total Critical Care Time (in minutes): 35 Critical Care Statement: The care of this patient involved high complexity decision making to prevent further life threatening deterioration of the patient 's condition and/or to evalute & treat vital organ system(s) failure or risk of failure.
[2016-10-12] MEDS ORDERED: PT OWN MED DRAWER 7, Y5N ONE ×2 (10:09→20:16)
[2016-10-12] MEDS: PANTOPRAZOLE SODIUM 100 ML IVPB SCH (10:10)
[2016-10-12] MEDS: POTASSIUM CHLORIDE ORAL LIQUID 20 MEQ/15 ML PO SCH (10:10)
[2016-10-12] MEDS: CHLORHEXIDINE GLUCONATE 0.12% 15ML CUP MM SCH ×2 (10:11→22:00)
[2016-10-12] MEDS: APIXABAN 5 MG TABLET PO SCH ×2 (10:12→22:00)
[2016-10-12] MEDS: CARVEDILOL 3.125 MG TABLET (FP) NGT SCH ×2 (10:12→22:00)
[2016-10-12] MEDS: POLYETHYLENE GLYCOL 3350 119 GM BTL PO SCH ×2 (10:12→22:00)
[2016-10-12] MEDS: KCL 10 MEQ IVPB 100 ML IVPB SCH ×2 (10:30→11:30)
--- NOTE | 2016-10-12 10:57 | PN ---
Progress Note, Physician History of Present Illness: Sedated on ventilator Unremitting temps 100-101 Breathing non-labored Orally intubated on ventilator WBC WNL platelet count improved BC negative Sputum c/s pending - Current Medication List Current Medications: Active Medications Acetaminophen (Tylenol -) 650 mg PO Q6H PRN PRN Reason: FEVER OR PAIN Last Admin: 10/11/16 09:05 Dose: 650 mg Amino Acids (Prosource No Carb Liquid Pkt) 30 ml PO BID@0800,1730 [facility] Last Admin: 10/12/16 08:24 Dose: 30 ml Apixaban (Eliquis -) 5 mg PO BID [facility] Last Admin: 10/12/16 10:12 Dose: 5 mg Carvedilol (Coreg -) 3.125 mg NGT BID [facility] Last Admin: 10/12/16 10:12 Dose: Not Given Chlorhexidine Gluconate (Hibiclens For Decolonization -) 1 applic TP HS [facility] Last Admin: 10/11/16 21:12 Dose: 1 applic Chlorhexidine Gluconate (Peridex -) 15 ml MM BID [facility] Last Admin: 10/12/16 10:11 Dose: 15 ml Pantoprazole Sodium (Protonix 40mg Ivpb (Pre-Docked)) 100 mls @ 200 mls/hr IVPB DAILY [facility] Last Admin: 10/12/16 10:10 Dose: 200 mls/hr Fentanyl 500 mcg/ Dextrose 100 mls @ 5 mls/hr IJ TITR [facility]YNETTE PRN Reason: 25 MCG/HR Last Admin: 10/11/16 23:19 Dose: 10 mls/hr Propofol (Diprivan -) 100 mls @ 3.81 mls/hr IVPB TITR LYNETTE; 5 MCG/KG/MIN PRN Reason: Protocol Last Admin: 10/12/16 06:18 Dose: 19.051 mls/hr Vasopressin 50 units/ Sodium (Chloride) 100 mls @ 4 mls/hr IVPB ASDIR LYNETTE; 2 UNITS/HR PRN Reason: Protocol Last Titration: 10/10/16 01:57 Dose: 1 units/hr Piperacillin Sod/Tazobactam Sod (Zosyn 4.5gm Ivpb (Pre-Docked)) 100 mls @ 200 mls/hr IVPB Q8H-IV LYNETTE PRN Reason: Protocol Last Admin: 10/12/16 10:11 Dose: 200 mls/hr Furosemide 100 mg/ Dextrose 100 mls @ 10 mls/hr IVPB TITR LYNETTE PRN Reason: 10 MG/HR Last Admin: 10/11/16 23:20 Dose: 10 mls/hr Potassium Chloride (Potassium Chloride 10 Meq Premix Ivpb -) 100 mls @ 100 mls/ hr IVPB Q60M [facility] Stop: 10/12/16 12:29 Polyethylene Glycol (Miralax (For Daily Use) -) 17 gm PO BID [facility] Last Admin: 10/12/16 10:12 Dose: 17 gm Potassium Chloride (Potassium Chloride Oral Liquid) 40 meq PO DAILY [facility] Last Admin: 10/12/16 10:10 Dose: 40 meq - Objective Vital Signs: Vital Signs Temperature 100.7 F H 10/12/16 10:00 Pulse Rate 109 H 10/12/16 10:02 Respiratory Rate 14 10/12/16 10:02 Blood Pressure 90/52 10/12/16 10:00 O2 Sat by Pulse Oximetry (%) 93 L 10/12/16 10:02 Constitutional: Yes: No Distress, Obese Eyes: Yes: Conjunctiva Clear Cardiovascular: Yes: Regular Rate and Rhythm, S1, S2 Respiratory: Yes: Mechanically Ventilated Gastrointestinal: Yes: Normal Bowel Sounds, Abdomen, Obese. No: Tenderness Edema: Yes Integumentary: Yes: Other (+ chronic venous stasis dermatitis) Labs: CBC, BMP 10/12/16 06:00 10/12/16 06:00 INR, PTT INR 1.27 (0.82-1.09) H 10/05/16 19:00 Assessment/Plan Respiratory failure CHF, possible bilateral pneumonia S/P rapid Afib Azotemia Thrombocytopenia-improved Await sputum c/s Continue empiric zosyn Ventilatory support
[2016-10-12] MEDS: FENTANYL INJECTION 500 MCG in DEXTROSE 5%-WATER - 90 ML IJ SCH ×2 (11:00→22:45)
[2016-10-12] MEDS ORDERED: FUROSEMIDE 100 MG/10 ML INJECTABLE VIAL ONE (11:05)
[2016-10-12] MEDS: FUROSEMIDE INJECTION 100 MG in DEXTROSE 5%-WATER - 90 ML IVPB SCH ×2 (11:08→12:00)
--- NOTE | 2016-10-12 11:54 | PN ---
Progress Note (short form) - Note Progress Note: RENAL Pt is intubated and sedated appears comfortable Last Vital Signs Temp Pulse Resp BP Pulse Ox 100.6 F H 109 H 14 79/53 93 L 10/12/16 10:00 10/12/16 10:02 10/12/16 10:02 10/12/16 10:00 10/12/16 10:02 lungs clear cvs s1s2 rr abd soft, decreased bowel sounds ext +edema, has signs of venous insufficiency neuro intubated CBC, BMP 10/12/16 06:00 10/12/16 06:00 Current Medications Generic Name Dose Route Start Last Admin Trade Name Freq PRN Reason Stop Dose Admin Acetaminophen 650 mg 10/10/16 15:28 10/11/16 09:05 Tylenol - PO 650 mg Q6H PRN Administration FEVER OR PAIN Amino Acids 30 ml 10/10/16 17:30 10/12/16 08:24 Prosource No Carb Liquid Pkt PO 30 ml BID@0800,1730 [facility]TE Administration Apixaban 5 mg 10/09/16 10:30 10/12/16 10:12 Eliquis - PO 5 mg BID [facility]TE Administration Carvedilol 3.125 mg 10/09/16 10:30 10/12/16 10:12 Coreg - NGT Not Given BID [facility]YNETTE Chlorhexidine Gluconate 1 applic 10/05/16 22:00 10/11/16 21:12 Hibiclens For Decolonization - TP 1 applic HS [facility]NETTE Administration Chlorhexidine Gluconate 15 ml 10/06/16 10:00 10/12/16 10:11 Peridex - MM 15 ml BID [facility]YNETTE Administration Pantoprazole Sodium 100 mls @ 200 mls/hr 10/06/16 10:00 10/12/16 10:10 Protonix 40mg Ivpb (Pre-Docked) IVPB 200 mls/hr DAILY [facility] Administration Fentanyl 500 mcg/ Dextrose 100 mls @ 5 mls/hr 10/05/16 20:45 10/12/16 11:00 IJ 10 mls/hr TITR [facility]YNETTE Administration 25 MCG/HR Propofol 100 mls @ 3.81 mls/hr 10/05/16 21:45 10/12/16 06:18 Diprivan - IVPB 19.051 mls/hr TITR [facility]YNETTE Administration Protocol 5 MCG/KG/MIN Vasopressin 50 units/ Sodium 100 mls @ 4 mls/hr 10/09/16 23:00 10/10/16 01:57 Chloride IVPB 1 units/hr ASDIR LYNETTE Titration Protocol 2 UNITS/HR Piperacillin Sod/Tazobactam Sod 100 mls @ 200 mls/hr 10/10/16 18:00 10/12/16 10 :11 Zosyn 4.5gm Ivpb (Pre-Docked) IVPB 200 mls/hr Q8H-IV [facility]YNETTE Administration Protocol Furosemide 100 mg/ Dextrose 100 mls @ 10 mls/hr 10/11/16 13:45 10/12/16 11:08 IVPB 10 mls/hr TITR LYNETTE Administration 10 MG/HR Potassium Chloride 100 mls @ 100 mls/hr 10/12/16 10:30 10/12/16 10:30 Potassium Chloride 10 Meq Premix Ivpb - IVPB 10/12/16 12:29 100 mls/hr Q60M [facility]TE Administration Polyethylene Glycol 17 gm 10/09/16 22:00 10/12/16 10:12 Miralax (For Daily Use) - PO 17 gm BID [facility]TE Administration Potassium Chloride 40 meq 10/08/16 10:00 10/12/16 10:10 Potassium Chloride Oral Liquid PO 40 meq DAILY [facility]TE Administration Impression 1. Azotemia 2. CHF acute- mild to moderate reduction in EF based on echo 3. acute resp failure requiring intubation 4. new onset atrial fibrillation 5. hx of htn 6. obesity 7. chronic smoker 8. hypokalemia 9 has a combined metabolic alkalosis and respiratory acidosis Plan - cont with lasix though at reduced dose. -once bp stable will need an areli inhibitor - monitor urine output - daily cxr- todays is worse -cautious use of propofol given hypotension -if bicarb rising would be a candidate for diamox since he remains fluid overloaded MV
[2016-10-12] MEDS: POTASSIUM CHLORIDE 20 MEQ PREMIX IVPB 100 ML IVPB SCH ×2 (13:15→14:15)
--- NOTE | 2016-10-12 14:32 | PN ---
Progress Note, Physician History of Present Illness: Remains on vent with elevated FIO2 requirement, remains in afib, diuresed off 8 lbs with low grade fevers. - Current Medication List Current Medications: Active Medications Acetaminophen (Tylenol -) 650 mg PO Q6H PRN PRN Reason: FEVER OR PAIN Last Admin: 10/11/16 09:05 Dose: 650 mg Amino Acids (Prosource No Carb Liquid Pkt) 30 ml PO BID@0800,1730 [facility] Last Admin: 10/12/16 08:24 Dose: 30 ml Apixaban (Eliquis -) 5 mg PO BID [facility] Last Admin: 10/12/16 10:12 Dose: 5 mg Carvedilol (Coreg -) 3.125 mg NGT BID [facility] Last Admin: 10/12/16 10:12 Dose: Not Given Chlorhexidine Gluconate (Hibiclens For Decolonization -) 1 applic TP HS [facility] Last Admin: 10/11/16 21:12 Dose: 1 applic Chlorhexidine Gluconate (Peridex -) 15 ml MM BID [facility] Last Admin: 10/12/16 10:11 Dose: 15 ml Pantoprazole Sodium (Protonix 40mg Ivpb (Pre-Docked)) 100 mls @ 200 mls/hr IVPB DAILY [facility] Last Admin: 10/12/16 10:10 Dose: 200 mls/hr Fentanyl 500 mcg/ Dextrose 100 mls @ 5 mls/hr IJ TITR LYNETTE PRN Reason: 25 MCG/HR Last Admin: 10/12/16 11:00 Dose: 10 mls/hr Propofol (Diprivan -) 100 mls @ 3.81 mls/hr IVPB TITR LYNETTE; 5 MCG/KG/MIN PRN Reason: Protocol Last Admin: 10/12/16 14:22 Dose: 19.051 mls/hr Vasopressin 50 units/ Sodium (Chloride) 100 mls @ 4 mls/hr IVPB ASDIR LYNETTE; 2 UNITS/HR PRN Reason: Protocol Last Titration: 10/10/16 01:57 Dose: 1 units/hr Piperacillin Sod/Tazobactam Sod (Zosyn 4.5gm Ivpb (Pre-Docked)) 100 mls @ 200 mls/hr IVPB Q8H-IV [facility]NETTE PRN Reason: Protocol Last Admin: 10/12/16 10:11 Dose: 200 mls/hr Furosemide 100 mg/ Dextrose 100 mls @ 5 mls/hr IVPB TITR LYNETTE PRN Reason: 5 MG/HR Last Admin: 10/12/16 12:00 Dose: 5 mls/hr Polyethylene Glycol (Miralax (For Daily Use) -) 17 gm PO BID [facility] Last Admin: 10/12/16 10:12 Dose: 17 gm Potassium Chloride (Potassium Chloride Oral Liquid) 40 meq PO DAILY [facility] Last Admin: 10/12/16 10:10 Dose: 40 meq - Objective Vital Signs: Vital Signs Temperature 100.7 F H 10/12/16 12:00 Pulse Rate 118 H 10/12/16 12:00 Respiratory Rate 10/12/16 14:19 Blood Pressure 98/72 10/12/16 12:00 O2 Sat by Pulse Oximetry (%) 93 L 10/12/16 10:02 Cardiovascular: Yes: Pulse Irregular Respiratory: Yes: Intubated, Mechanically Ventilated, Rhonchi Gastrointestinal: Yes: Normal Bowel Sounds, Soft Edema: Yes Edema: LLE: 1+, RLE: 1+ Labs: CBC, BMP 10/12/16 06:00 10/12/16 06:00 INR, PTT INR 1.27 (0.82-1.09) H 10/05/16 19:00 - ....Imaging Chest X-ray: Report Reviewed (Stable changes) Problem List - Problems (1) Atrial fibrillation, new onset Code(s): I48.91 - UNSPECIFIED ATRIAL FIBRILLATION (2) Sleep apnea Code(s): G47.30 - SLEEP APNEA, UNSPECIFIED Qualifiers: Sleep apnea type: unspecified type Qualified Code(s): G47.30 - Sleep apnea, unspecified (3) Acute on chronic diastolic (congestive) heart failure Code(s): I50.33 - ACUTE ON CHRONIC DIASTOLIC (CONGESTIVE) HEART FAILURE (4) Acute hypercapnic respiratory failure Code(s): J96.02 - ACUTE RESPIRATORY FAILURE WITH HYPERCAPNIA Assessment/Plan Echocardiography revealed mild to moderate LV systolic dysfunction, moderate TR , RVSP of 30-40 mmHg 1. Acute class III-IV NYHA classification LV failure related to systolic LV dysfunction 2. Persistent atrial fibrillation with improved ventricular response, [id number] score of 2 3. Acute Hypoxic and Hypercapneic Respiratory Failure with PNA 4. Thrombocytopenia 5. MONIE resolved, hypokalemia 6. OSAS noncompliant on cpap per mother PLAN: 1. Decreased Lasix gtt @ 5 with monitor diuretic response, renal fxn and electrolytes, replete K 2. Continue carvedilol 3.125 bid as hemodynamics tolerate 3. Continue Eliquis 5 bid 4. Ideally should be on ACEI or ARBS as hemodynamic tolerate 5. Vent support, BD, abx course per ID and enteral feeds, GI prophylaxis, cpap as outpatient
[2016-10-12] MEDS: CHLORHEXIDINE GLUCONATE 4% CLEANSER FOR DECOLONIZATION TP SCH (21:00)
[2016-10-13] MEDS: PROPOFOL 100 ML IVPB SCH ×4 (01:00→21:04)
[2016-10-13] MEDS: PIPERACILLIN/TAZOB 4.5 GM 100 ML IVPB SCH (02:30)
[2016-10-13] MEDS: FUROSEMIDE INJECTION 100 MG in DEXTROSE 5%-WATER - 90 ML IVPB SCH (05:54)
[2016-10-13 06:29] LABS: BASOPHIL 1.2 % (0-2.0); EOSINOPHIL 4.4 % (0-4.5); MCH 32.2 pg (25.7-33.7); MCHC 32.8 g/dl (32.0-35.9); MEAN PLT VOLUME 10.1 fl (7.5-11.1); NEUTROPHILS 67.3 % (42.8-82.8); PLATELET COUNT 117 K/MM3 (134-434); RDW 16.3 % (11.9-15.9); WHITE BLOOD COUNT 6.9 K/mm3 (4.0-10.0)
[2016-10-13 06:38] LABS: INR 1.32 (0.82-1.09); PROTHROMBIN TIME (PATIENT) 14.6 SEC (9.98-11.88)
[2016-10-13 06:40] LABS: ACTIVATED PTT 34.6 SECONDS (26.9-34.4)
[2016-10-13 07:01] LABS: ALBUMIN 2.4 g/dl (3.4-5.0); BILIRUBIN,TOTAL 2.1 mg/dL (0.2-1.0); CALCIUM 8.3 mg/dL (8.5-10.1); COCKROFT - GAULT 88.59; CREATININE 1.4 mg/dL (0.7-1.3); MAGNESIUM 2.2 mg/dL (1.8-2.4); PHOSPHOROUS 4.8 mg/dL (2.5-4.9); TOT PROT 5.5 g/dl (6.4-8.2)
--- NOTE | 2016-10-13 07:34 | PN ---
Progress Note (short form) - Note Progress Note: Chief Complaint: Events noted, notes reviewed, remains intubated and sedated, on Lasix drip, remains in atrial fibrillation with periods of rapid ventricular response History of Present Illness: Seen and examined in the ICU. Events noted, notes reviewed, remains intubated and sedated, on Lasix drip, remains in atrial fibrillation with periods of rapid ventricular response Echocardiography revealed mild to moderate LV systolic dysfunction, moderate TR , RVSP of 30-40 mmHg Medications: Current Medications Acetaminophen (Tylenol -) 650 mg PO Q6H PRN PRN Reason: FEVER OR PAIN Last Admin: 10/11/16 09:05 Dose: 650 mg Amino Acids (Prosource No Carb Liquid Pkt) 30 ml PO BID@0800,1730 [facility] Last Admin: 10/12/16 17:06 Dose: 30 ml Apixaban (Eliquis -) 5 mg PO BID [facility] Last Admin: 10/12/16 22:00 Dose: 5 mg Carvedilol (Coreg -) 3.125 mg NGT BID [facility] Last Admin: 10/12/16 22:00 Dose: 3.125 mg Chlorhexidine Gluconate (Hibiclens For Decolonization -) 1 applic TP HS [facility] Last Admin: 10/12/16 21:00 Dose: 1 applic Chlorhexidine Gluconate (Peridex -) 15 ml MM BID [facility] Last Admin: 10/12/16 22:00 Dose: 15 ml Pantoprazole Sodium (Protonix 40mg Ivpb (Pre-Docked)) 100 mls @ 200 mls/hr IVPB DAILY [facility] Last Admin: 10/12/16 10:10 Dose: 200 mls/hr Propofol (Diprivan -) 100 mls @ 3.81 mls/hr IVPB TITR LYNETTE; 5 MCG/KG/MIN PRN Reason: Protocol Last Admin: 10/13/16 05:53 Dose: 19.051 mls/hr Vasopressin 50 units/ Sodium (Chloride) 100 mls @ 4 mls/hr IVPB ASDIR LYNETTE; 2 UNITS/HR PRN Reason: Protocol Last Titration: 10/10/16 01:57 Dose: 1 units/hr Piperacillin Sod/Tazobactam Sod (Zosyn 4.5gm Ivpb (Pre-Docked)) 100 mls @ 200 mls/hr IVPB Q8H-IV [facility]NETTE PRN Reason: Protocol Last Admin: 10/13/16 02:30 Dose: 200 mls/hr Furosemide 100 mg/ Dextrose 100 mls @ 5 mls/hr IVPB TITR LYNETTE PRN Reason: 5 MG/HR Last Admin: 10/13/16 05:54 Dose: 5 mls/hr Polyethylene Glycol (Miralax (For Daily Use) -) 17 gm PO BID [facility] Last Admin: 10/12/16 22:00 Dose: 17 gm Potassium Chloride (Potassium Chloride Oral Liquid) 40 meq PO DAILY [facility] Last Admin: 10/12/16 10:10 Dose: 40 meq Review of Systems Unable to Obtain Vital Signs: Last Vital Signs Temp Pulse Resp BP Pulse Ox 100.3 F H 116 H 14 81/56 95 10/13/16 06:00 10/13/16 06:00 10/13/16 06:59 10/13/16 06:00 10/12/16 22:00 Intake & Output 10/10/16 10/11/16 10/12/16 10/13/16 23:59 23:59 23:59 23:59 Intake Total 3018.4 2260.1 3044.3 788.7 Output Total 3850 5375 3800 500 Balance -831.6 -3114.9 -755.7 288.7 Weight 267 lb 4.8 oz 264 lb 3.2 oz 258 lb 8 oz 252 lb 6.4 oz Neck: Supple Negative JVD Respiratory: Diminished Breath Sounds at the Bases Cardiovascular: S1 S2 Irregularly Irregular Gastrointestinal: Soft Benign Normal Bowel Sounds Ext: 1+ Edema Bilaterally Labs: CBC, BMP 10/13/16 05:35 10/13/16 05:35 Hepatic Panel Total Bilirubin 2.1 mg/dL (0.2-1.0) H 10/13/16 05:35 AST 31 U/L (15-37) 10/13/16 05:35 ALT 36 U/L (12-78) 10/13/16 05:35 Alkaline Phosphatase 80 U/L (45-117) 10/13/16 05:35 Albumin 2.4 g/dl (3.4-5.0) L 10/13/16 05:35 INR, PTT INR 1.32 (0.82-1.09) H 10/13/16 05:35 Assessment/Plan ASSESSMENT: 1. Acute class III-IV NYHA classification LV failure related to systolic/ diastolic LV dysfunction, respiratory failure, resolving 2. Unclear if ischemic dilated cardiomyopathy vs. ideopathic cardiomyopathy vs. tachycardia induced cardiomyopathy (atrial fibrillation) 3. CAD angina pectoris to be excluded 4. Persistent atrial fibrillation with periods of rapid ventricular response, [id number] score of 2 5. HTN, hypotensive to normotensive 6. Hypercholesterolemia 7. Renal insufficiency 8. Polycythmia 9. Thrombocytopenia PLAN: 1. Continue IV Lasix, drip 2. Continue Coreg with caution 3. Initiate Dobutamine with caution considering the above LV dysfunction 4. Continue NOAC's, Eliquis 5. Ideally should be on ACEI or ARBS unless it is contraindicated, hemodynamic stabilization and renal function stabilization 6. Attempt to wean off sedation and extubate as per the critical care team Bran Carlin MD
[2016-10-13 07:45] LABS: ARTERIAL BLD GAS O2 SATURATION 97.4 % (90-98.9); ARTERIAL BLOOD GAS HCO3 44.6 meq/L (22-26); ARTERIAL BLOOD GAS PO2 95.8 mmHg (80-100)
[2016-10-13] MEDS ORDERED: DOBUTAMINE 250 MG/D5W - 250 ML IV SCH (07:45)
[2016-10-13 07:46] LABS: ALLENS TEST POSITIVE; ART PUNCT SITE RIGHT RADIAL; LPM/O2% 80%; MECH. VENT. YES; PT. ON O2? YES; TYPE OF O2 VENT; VENT RATE 14; VT/PRESS 475
[2016-10-13] MEDS ORDERED: PT OWN MED DRAWER 7, Y5N ONE (08:03)
[2016-10-13] MEDS: AMINO ACIDS/PROTEIN HYDROLYS 30 ML LIQUID.PKT PO SCH ×2 (08:15→17:46)
--- NOTE | 2016-10-13 08:30 | PN ---
Progress Note, Physician Chief Complaint: ID Day 5 antibiotics Zosyn which have not changed the "landscape at all" Remains with low grade fevers since admission and negative cultures Remains intubated - Current Medication List Current Medications: Active Medications Acetaminophen (Tylenol -) 650 mg PO Q6H PRN PRN Reason: FEVER OR PAIN Last Admin: 10/11/16 09:05 Dose: 650 mg Amino Acids (Prosource No Carb Liquid Pkt) 30 ml PO BID@0800,1730 [facility] Last Admin: 10/13/16 08:15 Dose: 30 ml Apixaban (Eliquis -) 5 mg PO BID [facility] Last Admin: 10/12/16 22:00 Dose: 5 mg Carvedilol (Coreg -) 3.125 mg NGT BID [facility] Last Admin: 10/12/16 22:00 Dose: 3.125 mg Chlorhexidine Gluconate (Hibiclens For Decolonization -) 1 applic TP HS [facility] Last Admin: 10/12/16 21:00 Dose: 1 applic Chlorhexidine Gluconate (Peridex -) 15 ml MM BID [facility] Last Admin: 10/12/16 22:00 Dose: 15 ml Pantoprazole Sodium (Protonix 40mg Ivpb (Pre-Docked)) 100 mls @ 200 mls/hr IVPB DAILY [facility] Last Admin: 10/12/16 10:10 Dose: 200 mls/hr Propofol (Diprivan -) 100 mls @ 3.81 mls/hr IVPB TITR LYNETTE; 5 MCG/KG/MIN PRN Reason: Protocol Last Admin: 10/13/16 05:53 Dose: 19.051 mls/hr Vasopressin 50 units/ Sodium (Chloride) 100 mls @ 4 mls/hr IVPB ASDIR LYNETTE; 2 UNITS/HR PRN Reason: Protocol Last Titration: 10/10/16 01:57 Dose: 1 units/hr Piperacillin Sod/Tazobactam Sod (Zosyn 4.5gm Ivpb (Pre-Docked)) 100 mls @ 200 mls/hr IVPB Q8H-IV L[facility]NETTE PRN Reason: Protocol Last Admin: 10/13/16 02:30 Dose: 200 mls/hr Furosemide 100 mg/ Dextrose 100 mls @ 5 mls/hr IVPB TITR LYNETTE PRN Reason: 5 MG/HR Last Admin: 10/13/16 05:54 Dose: 5 mls/hr Dobutamine HCl/Dextrose (Dobutamine 250 Mg/D5w -) 250 mls @ 17.173 mls/hr IV TITR LYNETTE; 2.5 MCG/KG/MIN PRN Reason: Protocol Last Admin: 10/13/16 08:13 Dose: 17.173 mls/hr Polyethylene Glycol (Miralax (For Daily Use) -) 17 gm PO BID [facility] Last Admin: 10/12/16 22:00 Dose: 17 gm Potassium Chloride (Potassium Chloride Oral Liquid) 40 meq PO DAILY [facility] Last Admin: 10/12/16 10:10 Dose: 40 meq - Objective Vital Signs: Vital Signs Temperature 100.2 F H 10/13/16 08:00 Pulse Rate 124 H 10/13/16 08:00 Respiratory Rate 15 10/13/16 08:00 Blood Pressure 87/59 10/13/16 08:13 O2 Sat by Pulse Oximetry (%) 95 10/12/16 22:00 Constitutional: Yes: Obese Cardiovascular: Yes: Pulse Irregular, S1, S2 Respiratory: Yes: Rhonchi Gastrointestinal: Yes: Soft, Distention. No: Tenderness, Tenderness, Epigastrium Integumentary: Yes: Venous Stasis Changes Labs: CBC, BMP 10/13/16 05:35 10/13/16 05:35 INR, PTT INR 1.32 (0.82-1.09) H 10/13/16 05:35 Assessment/Plan Microbiology 10/11/16 13:45 Urine - Urine Hilario Urine Culture - Final NO GROWTH OBTAINED 10/10/16 18:41 Sputum - Endotrachea Suction/Ventilator Gram Stain - Final 10/08/16 20:00 Sputum - Endotrachea Suction/Ventilator Gram Stain - Final 10/08/16 20:00 Sputum - Endotrachea Suction/Ventilator Sputum Culture - Final NORMAL RESPIRATORY PEYTON 10/08/16 10:20 Urine - Urine Hilario Urine Culture - Final NO GROWTH OBTAINED 10/10/16 18:41 Sputum - Endotrachea Suction/Ventilator Sputum Culture - Preliminary 10/10/16 17:30 Blood - Peripheral Venous Blood Culture - Preliminary NO GROWTH OBTAINED AFTER 48 HOURS, INCUBATION TO CONTINUE FOR 3 DAYS. 10/08/16 08:40 Blood - Peripheral Venous Blood Culture - Preliminary NO GROWTH OBTAINED AFTER 96 HOURS, INCUBATION TO CONTINUE FOR 1 DAYS. Laboratory Tests 10/12/16 10/13/16 10/13/16 06:00 05:35 07:25 WBC 6.9 Hgb 16.8 Hct 51.3 H MCV 98.0 H Plt Count 117 L ABG pCO2 at Pt Temp 73.0 H* ABG pO2 at Pt Temp 95.8 D Random Vancomycin 11.867 Assessment LV dysfunction Atrial fibrillation Low grade fevers ? etiology Thrombocytopenia Plan Stop antibiotics now ESR CRP HIV testing for completeness Tucker MCDANIEL
[2016-10-13] MEDS: FENTANYL INJECTION 500 MCG in DEXTROSE 5%-WATER - 90 ML IJ SCH ×2 (09:52→21:04)
[2016-10-13] MEDS: CARVEDILOL 3.125 MG TABLET (FP) NGT SCH ×2 (10:03→21:05)
[2016-10-13] MEDS: CHLORHEXIDINE GLUCONATE 0.12% 15ML CUP MM SCH ×2 (10:03→22:54)
[2016-10-13] MEDS: ACETAMINOPHEN 325 MG TABLET (FP) PO PRN ×3 (10:04→22:53)
[2016-10-13] MEDS: POTASSIUM CHLORIDE ORAL LIQUID 20 MEQ/15 ML PO SCH (10:04)
[2016-10-13] MEDS: PANTOPRAZOLE SODIUM 100 ML IVPB SCH (10:04)
--- NOTE | 2016-10-13 11:32 | PN ---
Teaching Attending Note Name of Resident: Nick Kang ATTENDING PHYSICIAN STATEMENT I saw and evaluated the patient. I reviewed the resident's note and discussed the case with the resident. I agree with the resident's findings and plan as documented. SUBJECTIVE: Pt seen and examined in the ICU. Remains intubated, sedated. Vented on volume assist control with 80% FiO2 and PEEP 12. Saturating better. OBJECTIVE: Last Vital Signs Temp Pulse Resp BP Pulse Ox 100.3 F H 120 H 14 102/51 96 10/13/16 09:00 10/13/16 10:00 10/13/16 10:00 10/13/16 10:00 10/13/16 09:51 Intake & Output 10/10/16 10/11/16 10/12/16 10/13/16 23:59 23:59 23:59 23:59 Intake Total 3018.4 2260.1 3044.3 788.7 Output Total 3850 5375 3800 500 Balance -831.6 -3114.9 -755.7 288.7 Weight 267 lb 4.8 oz 264 lb 3.2 oz 258 lb 8 oz 252 lb 6.4 oz Gen: intubated, sedated Heart: RRR Lung: scattered rhonchi Abd: soft, nontender Ext: less edema, +scrotal edema but less CBC, BMP 10/13/16 05:35 10/13/16 05:35 ABG Results ABG pH 7.40 (7.35-7.45) 10/13/16 07:25 ABG pCO2 at Pt Temp 73.0 mmHg (35-45) H* 10/13/16 07:25 ABG pO2 at Pt Temp 95.8 mmHg (80-100) D 10/13/16 07:25 ABG HCO3 44.6 meq/L (22-26) H* 10/13/16 07:25 ABG O2 Sat (Measured) 97.4 % (90-98.9) 10/13/16 07:25 ABG O2 Content 23.6 % vol (15-22) H 10/13/16 07:25 ABG Base Excess 15.0 meq/l (-2-2) H 10/13/16 07:25 Active Medications Acetaminophen (Tylenol -) 650 mg PO Q6H PRN PRN Reason: FEVER OR PAIN Last Admin: 10/13/16 10:04 Dose: 650 mg Amino Acids (Prosource No Carb Liquid Pkt) 30 ml PO BID@0800,1730 [facility] Last Admin: 10/13/16 08:15 Dose: 30 ml Apixaban (Eliquis -) 5 mg PO BID [facility] Last Admin: 10/12/16 22:00 Dose: 5 mg Carvedilol (Coreg -) 3.125 mg NGT BID [facility] Last Admin: 10/13/16 10:03 Dose: 3.125 mg Chlorhexidine Gluconate (Hibiclens For Decolonization -) 1 applic TP HS [facility] Last Admin: 10/12/16 21:00 Dose: 1 applic Chlorhexidine Gluconate (Peridex -) 15 ml MM BID [facility] Last Admin: 10/13/16 10:03 Dose: 15 ml Pantoprazole Sodium (Protonix 40mg Ivpb (Pre-Docked)) 100 mls @ 200 mls/hr IVPB DAILY [facility] Last Admin: 10/13/16 10:04 Dose: 200 mls/hr Propofol (Diprivan -) 100 mls @ 3.81 mls/hr IVPB TITR LYNETTE; 5 MCG/KG/MIN PRN Reason: Protocol Last Admin: 10/13/16 05:53 Dose: 19.051 mls/hr Furosemide 100 mg/ Dextrose 100 mls @ 5 mls/hr IVPB TITR LYNETTE PRN Reason: 5 MG/HR Last Admin: 10/13/16 05:54 Dose: 5 mls/hr Dobutamine HCl/Dextrose (Dobutamine 250 Mg/D5w -) 250 mls @ 17.173 mls/hr IV TITR LYNETTE; 2.5 MCG/KG/MIN PRN Reason: Protocol Last Admin: 10/13/16 08:13 Dose: 17.173 mls/hr Fentanyl 500 mcg/ Dextrose 100 mls @ 1 mls/hr IJ TITR LYNETTE PRN Reason: 5 MCG/HR Last Admin: 10/13/16 09:52 Dose: 1 mls/hr Polyethylene Glycol (Miralax (For Daily Use) -) 17 gm PO BID [facility] Last Admin: 10/12/16 22:00 Dose: 17 gm Potassium Chloride (Potassium Chloride Oral Liquid) 40 meq PO DAILY [facility] Last Admin: 10/13/16 10:04 Dose: 40 meq ASSESSMENT AND PLAN: Acute Hypoxic and Hypercapneic Respiratory Failure Acute on ?Chronic LV Systolic Heart Failure Pulmonary HTN Volume Overload Atrial Fibrillation with RVR Acute Kidney Injury Hyperthyroidism Fevers - r/o Pneumonia - monitoring off antibiotics per ID - f/u repeat cultures - discussed with renal and cardiology, will hold lasix/dobutamine gtts today as pt may be intravascularly depleted despite pleural effusions on CXR, total body fluid volume appears to be more euvolemic at this time - monitor urine output, creatinine - daily weights, I/Os - lopressor for rate control - continue anticoagulation - inhaled bronchodilators - attempt to taper FiO2, PEEP to keep SpO2 >90% - not a candidate for weaning at this time due to high oxygen requirements - enteral feeds - DVT/GI prophylaxis - continue ICU monitoring critical care time spent reviewing chart, evaluating patient and formulating plan 45 min
--- NOTE | 2016-10-13 11:34 | PN ---
Physical Exam: SUBJECTIVE: Patient seen and examined patient remain intubated over weekend patient edema has decreased, scrotal swelling and selling in lower abdominal has decreased. CXR congestion present but decreased since before. Albumin low, elevated creatinine. Patient appears to to be intravascular depleted but could have 3rd space loss from hypoalbunemia. will try stoppin lasix and will stop dobutamin. patient is still running a low grade fever culture no growth. will give antibiotics as per id fio2 decreased from 80 to 60 keep spo2 > 90 try decreasing fentanyl drip OBJECTIVE: Vital Signs Period Temp Pulse Resp BP Sys/Clements Pulse Ox Last 24 Hr 99.8 F-100.7 F 103-124 14-17 80-112/51-72 93-98 GENERAL: sedated and intubated HEAD: Normal with no signs of trauma. EARS, NOSE, THROAT: Ears normal, nares patent, oropharynx clear without exudates. NECK: supple without lymphadenopathy, JVD, or masses. LUNGS: Breath sounds equal bilateral, . No wheezes, ronchi present HEART: s1s2 normal, hr irregularly irregular ABDOMEN: edema in anterior abdominal wall decreased, scrotum swelling decreased UPPER EXTREMITIES: 2+ pulses, warm, well-perfused. No cyanosis. LOWER EXTREMITIES: 2+ pulses, warm, well-perfused. No calf tenderness.peripheral edema present 1+ NEUROLOGICAL: unobtainable SKIN: Warm, dry, Laboratory Results - last 24 hr 10/13/16 10/13/16 10/13/16 05:35 05:35 05:35 WBC 6.9 RBC 5.23 Hgb 16.8 Hct 51.3 H MCV 98.0 H MCHC 32.8 RDW 16.3 H Plt Count 117 L MPV 10.1 Neutrophils % 67.3 Lymphocytes % 11.3 Monocytes % 15.8 H Eosinophils % 4.4 Basophils % 1.2 INR 1.32 H PTT (Actin FS) 34.6 H Puncture Site ABG pH ABG pCO2 at Pt Temp ABG pO2 at Pt Temp ABG HCO3 ABG O2 Sat (Measured) ABG O2 Content ABG Base Excess Ye Test O2 Delivery Device Oxygen Flow Rate Vent Mode Vent Rate Mechanical Rate PEEP Pressure Support Vent Sodium 141 Potassium 3.5 Chloride 86 L Carbon Dioxide 50 H Anion Gap 5 L BUN 53 H D Creatinine 1.4 H D Creat Clearance w eGFR 51.35 Random Glucose 102 Calcium 8.3 L Phosphorus 4.8 Magnesium 2.2 Total Bilirubin 2.1 H AST 31 ALT 36 Alkaline Phosphatase 80 C-Reactive Protein Total Protein 5.5 L Albumin 2.4 L 10/13/16 10/13/16 07:25 09:11 WBC RBC Hgb Hct MCV MCHC RDW Plt Count MPV Neutrophils % Lymphocytes % Monocytes % Eosinophils % Basophils % INR PTT (Actin FS) Puncture Site Right radial ABG pH 7.40 ABG pCO2 at Pt Temp 73.0 H* ABG pO2 at Pt Temp 95.8 D ABG HCO3 44.6 H* ABG O2 Sat (Measured) 97.4 ABG O2 Content 23.6 H ABG Base Excess 15.0 H Ye Test Positive O2 Delivery Device Vent Oxygen Flow Rate 80% Vent Mode A/c Vent Rate 14 Mechanical Rate Yes PEEP 12.0 Pressure Support Vent 475 Sodium Potassium Chloride Carbon Dioxide Anion Gap BUN Creatinine Creat Clearance w eGFR Random Glucose Calcium Phosphorus Magnesium Total Bilirubin AST ALT Alkaline Phosphatase C-Reactive Protein 2.6 H Total Protein Albumin Active Medications Generic Name Dose Route Start Last Admin Trade Name Freq PRN Reason Stop Dose Admin Acetaminophen 650 mg 10/10/16 15:28 10/13/16 10:04 Tylenol - PO 650 mg Q6H PRN Administration FEVER OR PAIN Amino Acids 30 ml 10/10/16 17:30 10/13/16 08:15 Prosource No Carb Liquid Pkt PO 30 ml BID@0800,1730 LYNETTE Administration Apixaban 5 mg 10/09/16 10:30 10/12/16 22:00 Eliquis - PO 5 mg BID LYNETTE Administration Carvedilol 3.125 mg 10/09/16 10:30 10/13/16 10:03 Coreg - NGT 3.125 mg BID LYNETTE Administration Chlorhexidine Gluconate 1 applic 10/05/16 22:00 10/12/16 21:00 Hibiclens For Decolonization - TP 1 applic HS LYNETTE Administration Chlorhexidine Gluconate 15 ml 10/06/16 10:00 10/13/16 10:03 Peridex - MM 15 ml BID LYNETTE Administration Pantoprazole Sodium 100 mls @ 200 mls/hr 10/06/16 10:00 10/13/16 10:04 Protonix 40mg Ivpb (Pre-Docked) IVPB 200 mls/hr DAILY [facility]TE Administration Propofol 100 mls @ 3.81 mls/hr 10/05/16 21:45 10/13/16 05:53 Diprivan - IVPB 19.051 mls/hr TITR LYNETTE Administration Protocol 5 MCG/KG/MIN Furosemide 100 mg/ Dextrose 100 mls @ 5 mls/hr 10/12/16 11:54 10/13/16 05:54 IVPB 5 mls/hr TITR LYNETTE Administration 5 MG/HR Dobutamine HCl/Dextrose 250 mls @ 17.173 mls/hr 10/13/16 07:45 10/13/16 08:13 Dobutamine 250 Mg/D5w - IV 17.173 mls/hr TITR LYNETTE Administration Protocol 2.5 MCG/KG/MIN Fentanyl 500 mcg/ Dextrose 100 mls @ 1 mls/hr 10/13/16 09:40 10/13/16 09:52 IJ 1 mls/hr TITR LYNETTE Administration 5 MCG/HR Polyethylene Glycol 17 gm 10/09/16 22:00 10/12/16 22:00 Miralax (For Daily Use) - PO 17 gm BID [facility]NETTE Administration Potassium Chloride 40 meq 10/08/16 10:00 10/13/16 10:04 Potassium Chloride Oral Liquid PO 40 meq DAILY [facility]TE Administration ASSESSMENT/PLAN: This is a 60 yo M every day smoker with PMH of HTN, GERD, and obesity who presents due to testicular swelling, b/l lower leg swelling, swelling in lower part of anterior abdominal wall and worsening SOB. Acute exacerbation CHF with hypoxic hypercapnic respiratory failure lasix increased to 80mg bid edema has decreased, scrotal swelling and selling in lower abdominal has decreased. CXR congestion present but decreased since before. Albumin low, elevated creatinine. Patient appears to to be intravascular depleted but could have 3rd space loss from hypoalbunemia. will try stopping lasix and will stop dobutamin. monitor i/o, maintain negative balance daily weight monitor vitals, follow echo : LV systolic function mild to moderately reduced on ventilator support, keep spo 2 over 90 ( fio2 60, peep 12 f, tv 475, ) cxr effusion decreased ct chest b/l effusion with consolidation cardiology consult appreciated. : on coreg 3.125 bid monitor cvp Fever; culture negative cxr reviewed, ct chest reviewed low grade fever continues UA : no uti id on case: antibiotics stopped, no change in fever after 5 days on antibiotics , culture negative, follow crp, esr and hiv test. A fib - on eliquis - on coreg 3.12 bid - cardiology on case Hypotension keep MAP >65 MONIE ( cardiorenal) - cr increased to 1.4 - nephrology on case - avoid nephrotoxic drugs - monitor creatinine Hypokalemia and hypomagnesemia replace k and mg will try to keep K around 4 FEN -diurese, avoid IV fluid -replete lytes - on tube feed PPX: PPI, eliquis Dispo: ICU Visit type - Emergency Visit Emergency Visit: Yes ED Registration Date: 10/05/16 Care time: The patient presented to the Emergency Department on the above date and was hospitalized for further evaluation of their emergent condition. - New Patient This patient is new to me today: No - Critical Care Critical Care patient: Yes Total Critical Care Time (in minutes): 45 Critical Care Statement: The care of this patient involved high complexity decision making to prevent further life threatening deterioration of the patient 's condition and/or to evalute & treat vital organ system(s) failure or risk of failure.
[2016-10-13] MEDS: APIXABAN 5 MG TABLET PO SCH ×2 (11:47→22:31)
[2016-10-13] MEDS: POLYETHYLENE GLYCOL 3350 119 GM BTL PO SCH ×2 (11:47→21:04)
--- NOTE | 2016-10-13 11:56 | PN ---
Progress Note (short form) - Note Progress Note: Events noted noted reviewed Intubated, sedated, now on Dobutamine Vital Signs Period Temp Pulse Resp BP Sys/Clements Pulse Ox Last 24 Hr 99.8 F-100.7 F 103-124 - 80-112/51-72 93-98 PE: Intubated, sedated Neck:Supple Lungs: CTA Abd: Benign CVS: S1S2 Ext: stasis changes, edema present Neuro: opens eyes to stimuli CMP Sodium 141 mmol/L (136-145) 10/13/16 05:35 Potassium 3.5 mmol/L (3.5-5.1) 10/13/16 05:35 Chloride 86 mmol/L (98-107) L 10/13/16 05:35 Carbon Dioxide 50 mmol/L (21-32) H 10/13/16 05:35 Anion Gap 5 (8-16) L 10/13/16 05:35 BUN 53 mg/dL (7-18) H D 10/13/16 05:35 Creatinine 1.4 mg/dL (0.7-1.3) H D 10/13/16 05:35 Creat Clearance w eGFR 51.35 (>60) 10/13/16 05:35 Random Glucose 102 mg/dL (74-106) 10/13/16 05:35 Lactic Acid 1.162 mmol/L (0.4-2.0) 10/06/16 05:20 Calcium 8.3 mg/dL (8.5-10.1) L 10/13/16 05:35 Phosphorus 4.8 mg/dL (2.5-4.9) 10/13/16 05:35 Magnesium 2.2 mg/dL (1.8-2.4) 10/13/16 05:35 Total Bilirubin 2.1 mg/dL (0.2-1.0) H 10/13/16 05:35 AST 31 U/L (15-37) 10/13/16 05:35 ALT 36 U/L (12-78) 10/13/16 05:35 Alkaline Phosphatase 80 U/L (45-117) 10/13/16 05:35 Creatine Kinase 493 IU/L (39-308) H D 10/07/16 05:55 Creatine Kinase Index 0.7 % (0.0-5.0) 10/07/16 05:55 CK-MB (CK-2) 3.259 ng/ml (0.5-3.6) 10/07/16 05:55 CK-MB (CK-2) Rel Index Cancelled 10/05/16 11:20 Troponin I < 0.02 ng/ml (0.00-0.05) 10/07/16 05:55 C-Reactive Protein 2.6 MG/DL (0.00-0.3) H 10/13/16 09:11 B-Natriuretic Peptide 1613.37 pg/ml (5-125) H 10/05/16 11:20 Total Protein 5.5 g/dl (6.4-8.2) L 10/13/16 05:35 Albumin 2.4 g/dl (3.4-5.0) L 10/13/16 05:35 Triglycerides 140 mg/dL (35-160) D 10/08/16 05:20 Cholesterol 112 mg/dL (50-200) 10/08/16 05:20 Total LDL Cholesterol 78 mg/dL (5-100) 10/08/16 05:20 HDL Cholesterol 28 mg/dL (40-60) L D 10/08/16 05:20 Free T4 [place] 1.21 ng/dL (0.82-1.77) 10/09/16 05:05 TSH 0.77 uIU/ml (0.358-3.74) D 10/09/16 05:05 Free T4 1.77 ng/dl (0.76-1.16) H 10/06/16 05:20 Free T3 2.0 pg/ml (2.0-4.4) 10/09/16 05:05 Current Medications Generic Name Dose Route Start Last Admin Trade Name Freq PRN Reason Stop Dose Admin Acetaminophen 650 mg 10/10/16 15:28 10/13/16 10:04 Tylenol - PO 650 mg Q6H PRN Administration FEVER OR PAIN Amino Acids 30 ml 10/10/16 17:30 10/13/16 08:15 Prosource No Carb Liquid Pkt PO 30 ml BID@0800,1730 LYNETTE Administration Apixaban 5 mg 10/09/16 10:30 10/13/16 11:47 Eliquis - PO 5 mg BID LYNETTE Administration Carvedilol 3.125 mg 10/09/16 10:30 10/13/16 10:03 Coreg - NGT 3.125 mg BID LYNETTE Administration Chlorhexidine Gluconate 1 applic 10/05/16 22:00 10/12/16 21:00 Hibiclens For Decolonization - TP 1 applic HS LYNETTE Administration Chlorhexidine Gluconate 15 ml 10/06/16 10:00 10/13/16 10:03 Peridex - MM 15 ml BID LYNETTE Administration Pantoprazole Sodium 100 mls @ 200 mls/hr 10/06/16 10:00 10/13/16 10:04 Protonix 40mg Ivpb (Pre-Docked) IVPB 200 mls/hr DAILY [facility]TE Administration Propofol 100 mls @ 3.81 mls/hr 10/05/16 21:45 10/13/16 11:50 Diprivan - IVPB 19 mls/hr TITR LYNETTE Administration Protocol 5 MCG/KG/MIN Furosemide 100 mg/ Dextrose 100 mls @ 5 mls/hr 10/12/16 11:54 10/13/16 05:54 IVPB 5 mls/hr TITR LYNETTE Administration 5 MG/HR Dobutamine HCl/Dextrose 250 mls @ 17.173 mls/hr 10/13/16 07:45 10/13/16 08:13 Dobutamine 250 Mg/D5w - IV 17.173 mls/hr TITR LYNETTE Administration Protocol 2.5 MCG/KG/MIN Fentanyl 500 mcg/ Dextrose 100 mls @ 1 mls/hr 10/13/16 09:40 10/13/16 09:52 IJ 1 mls/hr TITR LYNETTE Administration 5 MCG/HR Polyethylene Glycol 17 gm 10/09/16 22:00 10/13/16 11:47 Miralax (For Daily Use) - PO 17 gm BID [facility]TE Administration Potassium Chloride 40 meq 10/08/16 10:00 10/13/16 10:04 Potassium Chloride Oral Liquid PO 40 meq DAILY [facility]NETTE Administration Potassium Chloride 40 meq 10/13/16 14:00 Potassium Chloride Oral Liquid PO 10/13/16 14:01 ONCE ONE AP: Abnormal TFT: Repeat TSH, FT4, FT3, TPO WNL TSI Pending Unclear reason for intial abnormal TFT of Low TSH and borderline high FT4 No need for futher testing of Thyroid function in the hospital. Pt on multiple medications that could affect thyroid functins. Repeat TFT once discharged in office. Will f/u A Fib CHF Respiratory failure: Intubated, sedated Will f/u Problem List - Problems (1) Atrial fibrillation, new onset Code(s): I48.91 - UNSPECIFIED ATRIAL FIBRILLATION (2) Congestive heart failure (CHF) Code(s): I50.9 - HEART FAILURE, UNSPECIFIED Qualifiers: Congestive heart failure type: combined Congestive heart failure chronicity: acute Qualified Code(s): I50.41 - Acute combined systolic ( congestive) and diastolic (congestive) heart failure
[2016-10-13] MEDS ORDERED: NOREPINEPHRINE BITARTRATE 4 MG/4 ML ML IV ONE (13:18)
--- NOTE | 2016-10-13 13:26 | PN ---
Teaching Attending Note Name of Resident: Hillary Reyes ATTENDING PHYSICIAN STATEMENT I saw and evaluated the patient. I reviewed the resident's note and discussed the case with the resident. I agree with the resident's findings and plan as documented. SUBJECTIVE: cont to have fever. no events over night. OBJECTIVE: NAD , sedated, intubated . no JVD CV: irreg irreg , tachy Lungs; decreased breath sounds at bases. no crackles heard ABd: 1+ abd wall edema , no TTP , absent BS Ext : improved pitting edema . Scrotal swelling and pitting edema ( improved ) ) ASSESSMENT AND PLAN: 60 y/o man with ho GERD, HTN, previously mildly reduced EF who presented with scrotal swelling and was diagnosed with acute hypoxic resp failure due to acute CHF exacerbation 1- Acute hypoxic hypercapnic reap failure: 2/2 acute CHF exacerbation and possible developing PNA. FiO2 was able to wean down to 60%. cont high PEEP . - case was d/w Dr. MERRILL, due to elevated bicarb and significantly decreased edema and rising Cr will hodl diuresis and monitor . - still not sure of the infiltrate , ? PNA or Developing ARDS - Abx were stopped per ID - send new sputum cx - Dobutamine was stopped after briefly started this am 2- Cardiogenic shock: - off pressors now , MAP 72 3- MONIE : due to pre-renal azotemia from decreased [employer], improved and now increased after diuresis . - monitor of diuresis 4- New onset A fib. - Eliquis - cont BB as hemodynamics allow 5- Electrolytes abn :replete as needed ICU level of care
[2016-10-13] MEDS ORDERED: NOREPINEPHRINE BITARTRATE 8,000 MCG in DEXTROSE 5%-WATER - 492 ML IV SCH (13:30)
[2016-10-13] MEDS ORDERED: POTASSIUM CHLORIDE ORAL LIQUID 20 MEQ/15 ML PO ONE (14:00)
[2016-10-13 14:07] LABS: HIV 1 & 2 AB NEGATIVE; HIV 1 AGp24 NEGATIVE
--- NOTE | 2016-10-13 15:05 | PN ---
Progress Note, Physician History of Present Illness: Pt seen and examined at bedside. He remains in the ICU. Pt remains intubated. - Current Medication List Current Medications: Active Medications Acetaminophen (Tylenol -) 650 mg PO Q6H PRN PRN Reason: FEVER OR PAIN Last Admin: 10/13/16 10:04 Dose: 650 mg Amino Acids (Prosource No Carb Liquid Pkt) 30 ml PO BID@0800,1730 [facility] Last Admin: 10/13/16 08:15 Dose: 30 ml Apixaban (Eliquis -) 5 mg PO BID [facility] Last Admin: 10/13/16 11:47 Dose: 5 mg Carvedilol (Coreg -) 3.125 mg NGT BID [facility] Last Admin: 10/13/16 10:03 Dose: 3.125 mg Chlorhexidine Gluconate (Hibiclens For Decolonization -) 1 applic TP HS [facility] Last Admin: 10/12/16 21:00 Dose: 1 applic Chlorhexidine Gluconate (Peridex -) 15 ml MM BID [facility] Last Admin: 10/13/16 10:03 Dose: 15 ml Pantoprazole Sodium (Protonix 40mg Ivpb (Pre-Docked)) 100 mls @ 200 mls/hr IVPB DAILY [facility] Last Admin: 10/13/16 10:04 Dose: 200 mls/hr Propofol (Diprivan -) 100 mls @ 3.81 mls/hr IVPB TITR LYNETTE; 5 MCG/KG/MIN PRN Reason: Protocol Last Admin: 10/13/16 11:50 Dose: 19 mls/hr Fentanyl 500 mcg/ Dextrose 100 mls @ 1 mls/hr IJ TITR LYNETTE PRN Reason: 5 MCG/HR Last Admin: 10/13/16 09:52 Dose: 1 mls/hr Norepinephrine Bitartrate 8, (000 mcg/ Dextrose) 500 mls @ 18.75 mls/hr IV TITR LYNETTE; 5 MCG/MIN PRN Reason: Protocol Last Titration: 10/13/16 13:35 Dose: 4 mcg/min Polyethylene Glycol (Miralax (For Daily Use) -) 17 gm PO BID [facility] Last Admin: 10/13/16 11:47 Dose: 17 gm Potassium Chloride (Potassium Chloride Oral Liquid) 40 meq PO DAILY [facility] Last Admin: 10/13/16 10:04 Dose: 40 meq - Objective Vital Signs: Vital Signs Temperature 100.7 F H 04/10/17 13:25 Pulse Rate 111 H 10/13/16 13:48 Respiratory Rate 14 10/13/16 14:15 Blood Pressure 119/85 10/13/16 13:48 O2 Sat by Pulse Oximetry (%) 96 10/13/16 09:51 Constitutional: Yes: Calm Eyes: Yes: Conjunctiva Clear HENT: Yes: Atraumatic Cardiovascular: Yes: S1, S2 Respiratory: Yes: Mechanically Ventilated Gastrointestinal: Yes: Soft, Abdomen, Obese Genitourinary: Yes: Hilario Present Musculoskeletal: Yes: Muscle Weakness Edema: Yes Edema: LLE: 1+, RLE: 1+ Integumentary: Yes: Venous Stasis Changes Neurological: Yes: Lethargy Labs: CBC, BMP 10/13/16 05:35 10/13/16 05:35 INR, PTT INR 1.32 (0.82-1.09) H 10/13/16 05:35 Problem List - Problems (1) Acute kidney injury Code(s): N17.9 - ACUTE KIDNEY FAILURE, UNSPECIFIED (2) Anasarca Code(s): R60.1 - GENERALIZED EDEMA (3) Congestive heart failure (CHF) Code(s): I50.9 - HEART FAILURE, UNSPECIFIED Qualifiers: Congestive heart failure type: combined Congestive heart failure chronicity: acute Qualified Code(s): I50.41 - Acute combined systolic ( congestive) and diastolic (congestive) heart failure (4) Morbid obesity Code(s): E66.01 - MORBID (SEVERE) OBESITY DUE TO EXCESS CALORIES (5) Renal insufficiency Code(s): N28.9 - DISORDER OF KIDNEY AND URETER, UNSPECIFIED Assessment/Plan Current Medications Generic Name Dose Route Start Last Admin Trade Name Freq PRN Reason Stop Dose Admin Acetaminophen 650 mg 10/10/16 15:28 10/13/16 10:04 Tylenol - PO 650 mg Q6H PRN Administration FEVER OR PAIN Amino Acids 30 ml 10/10/16 17:30 10/13/16 08:15 Prosource No Carb Liquid Pkt PO 30 ml BID@0800,1730 L[facility]NETTE Administration Apixaban 5 mg 10/09/16 10:30 10/13/16 11:47 Eliquis - PO 5 mg BID [facility]TE Administration Carvedilol 3.125 mg 10/09/16 10:30 10/13/16 10:03 Coreg - NGT 3.125 mg BID LYNETTE Administration Chlorhexidine Gluconate 1 applic 10/05/16 22:00 10/12/16 21:00 Hibiclens For Decolonization - TP 1 applic HS [facility]NETTE Administration Chlorhexidine Gluconate 15 ml 10/06/16 10:00 10/13/16 10:03 Peridex - MM 15 ml BID LYNETTE Administration Pantoprazole Sodium 100 mls @ 200 mls/hr 10/06/16 10:00 10/13/16 10:04 Protonix 40mg Ivpb (Pre-Docked) IVPB 200 mls/hr DAILY [facility]TE Administration Propofol 100 mls @ 3.81 mls/hr 10/05/16 21:45 10/13/16 11:50 Diprivan - IVPB 19 mls/hr TITR [facility]NETTE Administration Protocol 5 MCG/KG/MIN Fentanyl 500 mcg/ Dextrose 100 mls @ 1 mls/hr 10/13/16 09:40 10/13/16 09:52 IJ 1 mls/hr TITR LYNETTE Administration 5 MCG/HR Norepinephrine Bitartrate 8, 500 mls @ 18.75 mls/hr 10/13/16 13:30 10/13/16 13: 35 000 mcg/ Dextrose IV 4 mcg/min TITR LYNETTE Titration Protocol 5 MCG/MIN Polyethylene Glycol 17 gm 10/09/16 22:00 10/13/16 11:47 Miralax (For Daily Use) - PO 17 gm BID L[facility]NETTE Administration Potassium Chloride 40 meq 10/08/16 10:00 10/13/16 10:04 Potassium Chloride Oral Liquid PO 40 meq DAILY LYNETTE Administration Impression 1. Azotemia 2. CHF acute 3. acute resp failure requiring intubation 4. new onset atrial fibrillation 5. hx of htn 6. obesity 7. chronic smoker 8. hypokalemia Plan - renal function is worse today - discussed with ICU team, will hold diuretics today and resume in am - repeat labs in am - daily cxr - vent support - monitor lytes - will follow Dr Delacruz
--- NOTE | 2016-10-13 15:46 | MSN ---
Progress Note (short form) - Note Progress Note: 60 yo male presented to ER 04 November for testicular swelling X 1 1/2 wks and increasing shortness of breath; he was diagnosed with new onset Afib, B/L LE lymphedema and edema of the scrotum. PMH sig for HTN, GERD, obesity and cigarette smoke. Pt. intubated in ICU. Patient had a pos balance of 288.7 ml Current vent settings are 14/475/80/60/12/12. Last Vital Signs Temp Pulse Resp BP Pulse Ox 100.7 F H 130 H 14 113/80 96 10/13/16 13:25 10/13/16 15:00 10/13/16 14:15 10/13/16 15:00 10/13/16 09:51 Intake & Output 10/10/16 10/11/16 10/12/16 10/13/16 23:59 23:59 23:59 23:59 Intake Total 3018.4 2260.1 3044.3 2376.7 Output Total 3850 5375 3800 2300 Balance -831.6 -3114.9 -755.7 76.7 Weight 267 lb 4.8 oz 264 lb 3.2 oz 258 lb 8 oz 252 lb 6.4 oz Laboratory Results - last 24 hr 10/13/16 10/13/16 10/13/16 05:35 05:35 05:35 WBC 6.9 RBC 5.23 Hgb 16.8 Hct 51.3 H MCV 98.0 H MCHC 32.8 RDW 16.3 H Plt Count 117 L MPV 10.1 Neutrophils % 67.3 Lymphocytes % 11.3 Monocytes % 15.8 H Eosinophils % 4.4 Basophils % 1.2 INR 1.32 H PTT (Actin FS) 34.6 H Puncture Site ABG pH ABG pCO2 at Pt Temp ABG pO2 at Pt Temp ABG HCO3 ABG O2 Sat (Measured) ABG O2 Content ABG Base Excess Ye Test O2 Delivery Device Oxygen Flow Rate Vent Mode Vent Rate Mechanical Rate PEEP Pressure Support Vent Sodium 141 Potassium 3.5 Chloride 86 L Carbon Dioxide 50 H Anion Gap 5 L BUN 53 H D Creatinine 1.4 H D Creat Clearance w eGFR 51.35 Random Glucose 102 Calcium 8.3 L Phosphorus 4.8 Magnesium 2.2 Total Bilirubin 2.1 H AST 31 ALT 36 Alkaline Phosphatase 80 C-Reactive Protein Total Protein 5.5 L Albumin 2.4 L HIV 1&2 Antibody Screen HIV P24 Antigen 10/13/16 10/13/16 10/13/16 07:25 09:11 09:11 WBC RBC Hgb Hct MCV MCHC RDW Plt Count MPV Neutrophils % Lymphocytes % Monocytes % Eosinophils % Basophils % INR PTT (Actin FS) Puncture Site Right radial ABG pH 7.40 ABG pCO2 at Pt Temp 73.0 H* ABG pO2 at Pt Temp 95.8 D ABG HCO3 44.6 H* ABG O2 Sat (Measured) 97.4 ABG O2 Content 23.6 H ABG Base Excess 15.0 H Ye Test Positive O2 Delivery Device Vent Oxygen Flow Rate 80% Vent Mode A/c Vent Rate 14 Mechanical Rate Yes PEEP 12.0 Pressure Support Vent 475 Sodium Potassium Chloride Carbon Dioxide Anion Gap BUN Creatinine Creat Clearance w eGFR Random Glucose Calcium Phosphorus Magnesium Total Bilirubin AST ALT Alkaline Phosphatase C-Reactive Protein 2.6 H Total Protein Albumin HIV 1&2 Antibody Screen Negative HIV P24 Antigen Negative Current Medications Generic Name Dose Route Start Last Admin Trade Name Freq PRN Reason Stop Dose Admin Acetaminophen 650 mg 10/10/16 15:28 10/13/16 15:41 Tylenol - PO 650 mg Q6H PRN Administration FEVER OR PAIN Amino Acids 30 ml 10/10/16 17:30 10/13/16 08:15 Prosource No Carb Liquid Pkt PO 30 ml BID@0800,1730 LYNETTE Administration Apixaban 5 mg 10/09/16 10:30 10/13/16 11:47 Eliquis - PO 5 mg BID LYNETTE Administration Carvedilol 3.125 mg 10/09/16 10:30 10/13/16 10:03 Coreg - NGT 3.125 mg BID LYNETTE Administration Chlorhexidine Gluconate 1 applic 10/05/16 22:00 10/12/16 21:00 Hibiclens For Decolonization - TP 1 applic HS LYNETTE Administration Chlorhexidine Gluconate 15 ml 10/06/16 10:00 10/13/16 10:03 Peridex - MM 15 ml BID LYNETTE Administration Pantoprazole Sodium 100 mls @ 200 mls/hr 10/06/16 10:00 10/13/16 10:04 Protonix 40mg Ivpb (Pre-Docked) IVPB 200 mls/hr DAILY LYNETTE Administration Propofol 100 mls @ 3.81 mls/hr 10/05/16 21:45 10/13/16 11:50 Diprivan - IVPB 19 mls/hr TITR LYNETTE Administration Protocol 5 MCG/KG/MIN Fentanyl 500 mcg/ Dextrose 100 mls @ 1 mls/hr 10/13/16 09:40 10/13/16 09:52 IJ 1 mls/hr TITR LYNETTE Administration 5 MCG/HR Norepinephrine Bitartrate 8, 500 mls @ 18.75 mls/hr 10/13/16 13:30 10/13/16 15: 00 000 mcg/ Dextrose IV 3 mcg/min TITR LYNETTE Titration Protocol 5 MCG/MIN Polyethylene Glycol 17 gm 10/09/16 22:00 10/13/16 11:47 Miralax (For Daily Use) - PO 17 gm BID LYNETTE Administration Potassium Chloride 40 meq 10/08/16 10:00 10/13/16 10:04 Potassium Chloride Oral Liquid PO 40 meq DAILY LYNETTE Administration Chest x-ray: 10/13/16 - Large heart; slightly better right mid and lower lungs stock compared to large image. Continued right lower lobe consolidation. General: Sedated on ventilation; pt asleep during examination Head: Normocephalic Neck: Neg JVD Heart:Irregularly irregular; tachycardic Lungs: B/L lower lobes decrease breath sounds Abdomen: Distended and edematous but slightly better that last examination; no TTP; BS normocephalic; no guarding : Testicular edema B/L slightly better; neg infection at maxwell site MSK: Pitting edema LE 1+ slightly better than last report; peripheral pulse 2+; B/L venous stasis LE Assessment & Plan: 60 yo male every day smoker with HTN, GERD, Obesity, testicular swelling and shortness of breath; diagnosed with new onset Afib, B/L lower extremity edema and edema of scrotum 1) Hypoxic Hypercapnic respiratory failure: - Secondary to Systolic Heart Failure fiO2 down to 60%; monitor peep; monitor i/o, mainatin neg fluid balance; daily weight, vitals; monitor CVP 2) Afib: Continue Eliquis 5 mg PO BID 3) Hypotension: Continue monitoring MAP 4) MONEI (cardiorenal) - cavoid nephrotoxic drugs, monitor creatinine 5) Hypokalemia- Continue potassium chloride @ 40 meq PO ; try to keep potassium above 4 Problem List - Problems (1) Congestive heart failure (CHF) Code(s): I50.9 - HEART FAILURE, UNSPECIFIED Qualifiers: Congestive heart failure type: combined Congestive heart failure chronicity: acute Qualified Code(s): I50.41 - Acute combined systolic ( congestive) and diastolic (congestive) heart failure (2) Acute respiratory failure requiring reintubation Code(s): J96.00 - ACUTE RESPIRATORY FAILURE, UNSP W HYPOXIA OR HYPERCAPNIA (3) Atrial fibrillation, new onset Code(s): I48.91 - UNSPECIFIED ATRIAL FIBRILLATION (4) Renal insufficiency Code(s): N28.9 - DISORDER OF KIDNEY AND URETER, UNSPECIFIED (5) Acute kidney injury Code(s): N17.9 - ACUTE KIDNEY FAILURE, UNSPECIFIED (6) Anasarca Code(s): R60.1 - GENERALIZED EDEMA (7) Cellulitis Code(s): L03.90 - CELLULITIS, UNSPECIFIED Qualifiers: Site of cellulitis: extremity Site of cellulitis of extremity: lower extremity Laterality: right Qualified Code(s): L03.115 - Cellulitis of right lower limb (8) Edema of scrotum Code(s): N50.89 - OTHER SPECIFIED DISORDERS OF THE MALE GENITAL ORGANS (9) Lymphedema of both lower extremities Code(s): I89.0 - LYMPHEDEMA, NOT ELSEWHERE CLASSIFIED (10) Morbid obesity Code(s): E66.01 - MORBID (SEVERE) OBESITY DUE TO EXCESS CALORIES (11) Sleep apnea Code(s): G47.30 - SLEEP APNEA, UNSPECIFIED Qualifiers: Sleep apnea type: unspecified type Qualified Code(s): G47.30 - Sleep apnea, unspecified
--- NOTE | 2016-10-13 18:07 | PN ---
Physical Exam: SUBJECTIVE: Patient seen and examined Patient resting in bed, intubated, sedated. minimally wakeful. Continuously running low grade fever day 6. On iv lasix drip, dobutamine and coreg. achieved negative fluid balance of approx 4 L over weekend, weight down to 252, appears dry. BP 81/56 (69). in A fib rate 112, O2 sat 97% Vent setting 14/475/ 80/60/12/12. OBJECTIVE: Vital Signs Period Temp Pulse Resp BP Sys/Clements Pulse Ox Last 24 Hr 99.8 F-100.9 F 103-130 14-18 69-150/50-94 93-98 GENERAL: sedated overall less edematous HEAD: Normal with no signs of trauma, obese EYES: pinpoint EARS, NOSE, THROAT: Moist mucous membranes. NECK: supple + JVD LUNGS: reduced breath sounds at bases HEART: tachy, irregular ABDOMEN: smaller, softer, 1+ edema, moderately erythematous, reduced bowel sounds MUSCULOSKELETAL: No bony deformities UPPER EXTREMITIES: 2+ pulses, mild peripheral edema. LOWER EXTREMITIES: 1+ pulses, 2+ pitting edema much improved, skin now wrinkled , chronic stasis dermatitis b/l NEUROLOGICAL: grossly symmetrical face PSYCHIATRIC: unable to assess SKIN: Warm, dry Laboratory Results - last 24 hr 10/13/16 10/13/16 10/13/16 05:35 05:35 05:35 WBC 6.9 RBC 5.23 Hgb 16.8 Hct 51.3 H MCV 98.0 H MCHC 32.8 RDW 16.3 H Plt Count 117 L MPV 10.1 Neutrophils % 67.3 Lymphocytes % 11.3 Monocytes % 15.8 H Eosinophils % 4.4 Basophils % 1.2 INR 1.32 H PTT (Actin FS) 34.6 H Puncture Site ABG pH ABG pCO2 at Pt Temp ABG pO2 at Pt Temp ABG HCO3 ABG O2 Sat (Measured) ABG O2 Content ABG Base Excess Ye Test O2 Delivery Device Oxygen Flow Rate Vent Mode Vent Rate Mechanical Rate PEEP Pressure Support Vent Sodium 141 Potassium 3.5 Chloride 86 L Carbon Dioxide 50 H Anion Gap 5 L BUN 53 H D Creatinine 1.4 H D Creat Clearance w eGFR 51.35 Random Glucose 102 Calcium 8.3 L Phosphorus 4.8 Magnesium 2.2 Total Bilirubin 2.1 H AST 31 ALT 36 Alkaline Phosphatase 80 C-Reactive Protein Total Protein 5.5 L Albumin 2.4 L HIV 1&2 Antibody Screen HIV P24 Antigen 10/13/16 10/13/16 10/13/16 07:25 09:11 09:11 WBC RBC Hgb Hct MCV MCHC RDW Plt Count MPV Neutrophils % Lymphocytes % Monocytes % Eosinophils % Basophils % INR PTT (Actin FS) Puncture Site Right radial ABG pH 7.40 ABG pCO2 at Pt Temp 73.0 H* ABG pO2 at Pt Temp 95.8 D ABG HCO3 44.6 H* ABG O2 Sat (Measured) 97.4 ABG O2 Content 23.6 H ABG Base Excess 15.0 H Ye Test Positive O2 Delivery Device Vent Oxygen Flow Rate 80% Vent Mode A/c Vent Rate 14 Mechanical Rate Yes PEEP 12.0 Pressure Support Vent 475 Sodium Potassium Chloride Carbon Dioxide Anion Gap BUN Creatinine Creat Clearance w eGFR Random Glucose Calcium Phosphorus Magnesium Total Bilirubin AST ALT Alkaline Phosphatase C-Reactive Protein 2.6 H Total Protein Albumin HIV 1&2 Antibody Screen Negative HIV P24 Antigen Negative Active Medications Generic Name Dose Route Start Last Admin Trade Name Paoloq PRN Reason Stop Dose Admin Acetaminophen 650 mg 10/10/16 15:28 10/13/16 15:41 Tylenol - PO 650 mg Q6H PRN Administration FEVER OR PAIN Amino Acids 30 ml 10/10/16 17:30 10/13/16 17:46 Prosource No Carb Liquid Pkt PO 30 ml BID@0800,1730 LYNETTE Administration Apixaban 5 mg 10/09/16 10:30 10/13/16 11:47 Eliquis - PO 5 mg BID LYNETTE Administration Carvedilol 3.125 mg 10/09/16 10:30 10/13/16 10:03 Coreg - NGT 3.125 mg BID LYNETTE Administration Chlorhexidine Gluconate 1 applic 10/05/16 22:00 10/12/16 21:00 Hibiclens For Decolonization - TP 1 applic HS LYNETTE Administration Chlorhexidine Gluconate 15 ml 10/06/16 10:00 10/13/16 10:03 Peridex - MM 15 ml BID LYNETTE Administration Pantoprazole Sodium 100 mls @ 200 mls/hr 10/06/16 10:00 10/13/16 10:04 Protonix 40mg Ivpb (Pre-Docked) IVPB 200 mls/hr DAILY LYNETTE Administration Propofol 100 mls @ 3.81 mls/hr 10/05/16 21:45 10/13/16 11:50 Diprivan - IVPB 19 mls/hr TITR LYNETTE Administration Protocol 5 MCG/KG/MIN Fentanyl 500 mcg/ Dextrose 100 mls @ 1 mls/hr 10/13/16 09:40 10/13/16 09:52 IJ 1 mls/hr TITR LYNETTE Administration 5 MCG/HR Norepinephrine Bitartrate 8, 500 mls @ 18.75 mls/hr 10/13/16 13:30 10/13/16 15: 00 000 mcg/ Dextrose IV 3 mcg/min TITR LYNETTE Titration Protocol 5 MCG/MIN Polyethylene Glycol 17 gm 10/09/16 22:00 10/13/16 11:47 Miralax (For Daily Use) - PO 17 gm BID LYNETTE Administration Potassium Chloride 40 meq 10/08/16 10:00 10/13/16 10:04 Potassium Chloride Oral Liquid PO 40 meq DAILY LYNETTE Administration ASSESSMENT/PLAN: This is a 60 yo M every day smoker with PMH of HTN, GERD, and obesity who presents due to testicular swelling x 1 W and worsening SOB. Acute decompensated CHF -NYHA class III-IV -was in severe fluid overload, anasarca -TTE mild/mod reduced EF, mild pulm HTN, RVP 30-40, global mild/mod LV hypokinesis worse than 05/06/16 -CXR AM improved -Per discussion with ICU team, patient appears volume contracted, will stop lasix and dobutamine to allow HR to slow down, improve filling in order to support output -cardio consult appreciated -continue coreg 3.125 bid po -strict I and O -daily weight -am xray -tele monitoring a fib -icu monitoring -wean off sedation Fever -CT chest: goiter, RUL cystic lesion, bibasilar effusions and consolidation -sputum, blood cultures negative -ID consult: unlikely infectious, stop abx -remove central line Hypotension -now off pressors A fib -eliquis Hyperthyroid -incidental, repeat labs wnl MONIE -creat 1.4 worsened (baseline 0.9 in apr) -possibly overdiuresed, stop lasix Acute hypoxic respiratory failure -intubated -based on ABG can bring down FiO2 to 60 -keep FIO2 >88 -daily weaning FEN -no IVF -replete lytes -Promote tube feed PPX: PPI, noac Dispo: ICU Problem List - Problems (1) Acute respiratory failure requiring reintubation Code(s): J96.00 - ACUTE RESPIRATORY FAILURE, UNSP W HYPOXIA OR HYPERCAPNIA (2) Atrial fibrillation, new onset Code(s): I48.91 - UNSPECIFIED ATRIAL FIBRILLATION (3) Congestive heart failure (CHF) Code(s): I50.9 - HEART FAILURE, UNSPECIFIED Qualifiers: Congestive heart failure type: combined Congestive heart failure chronicity: acute Qualified Code(s): I50.41 - Acute combined systolic ( congestive) and diastolic (congestive) heart failure (4) Edema of scrotum Code(s): N50.89 - OTHER SPECIFIED DISORDERS OF THE MALE GENITAL ORGANS (5) Lymphedema of both lower extremities Code(s): I89.0 - LYMPHEDEMA, NOT ELSEWHERE CLASSIFIED (6) Morbid obesity Code(s): E66.01 - MORBID (SEVERE) OBESITY DUE TO EXCESS CALORIES (7) Renal insufficiency Code(s): N28.9 - DISORDER OF KIDNEY AND URETER, UNSPECIFIED (8) Sleep apnea Code(s): G47.30 - SLEEP APNEA, UNSPECIFIED Qualifiers: Sleep apnea type: unspecified type Qualified Code(s): G47.30 - Sleep apnea, unspecified (9) Acute kidney injury Code(s): N17.9 - ACUTE KIDNEY FAILURE, UNSPECIFIED (10) Anasarca Code(s): R60.1 - GENERALIZED EDEMA Visit type - Emergency Visit Emergency Visit: Yes ED Registration Date: 10/05/16 Care time: The patient presented to the Emergency Department on the above date and was hospitalized for further evaluation of their emergent condition. - New Patient This patient is new to me today: No - Critical Care Critical Care patient: Yes Total Critical Care Time (in minutes): 46 Critical Care Statement: The care of this patient involved high complexity decision making to prevent further life threatening deterioration of the patient 's condition and/or to evalute & treat vital organ system(s) failure or risk of failure. - Discharge Referral Referred to [facility] Med [facility] No
[2016-10-13] MEDS: CHLORHEXIDINE GLUCONATE 4% CLEANSER FOR DECOLONIZATION TP SCH (21:05)
--- NOTE | 2016-10-14 06:29 | PN ---
Progress Note (short form) - Note Progress Note: Chief Complaint: Events noted, notes reviewed, remains intubated and sedated, off of Dobutamine and Lasix drips related to possible volume depletion, remains in atrial fibrillation with periods of rapid ventricular response History of Present Illness: Seen and examined in the ICU. Events noted, notes reviewed, remains intubated and sedated, off of Dobutamine and Lasix drips related to possible volume depletion, remains in atrial fibrillation with periods of rapid ventricular response Initiated on pressors overnight, pressure currently is elevated Chest x-ray from this AM pending, yesterday's x-ray slight improvement, would recommend if today's x-ray remains unchanged and volume status remains an issue to proceed with RH cath/Brogan-Belle catheter insertion to guide therapy Echocardiography revealed mild to moderate LV systolic dysfunction, moderate TR , RVSP of 30-40 mmHg Medications: Current Medications Acetaminophen (Tylenol -) 650 mg PO Q6H PRN PRN Reason: FEVER OR PAIN Last Admin: 10/13/16 22:53 Dose: 650 mg Amino Acids (Prosource No Carb Liquid Pkt) 30 ml PO BID@0800,1730 [facility] Last Admin: 10/13/16 17:46 Dose: 30 ml Apixaban (Eliquis -) 5 mg PO BID [facility] Last Admin: 10/13/16 22:31 Dose: 5 mg Carvedilol (Coreg -) 3.125 mg NGT BID [facility] Last Admin: 10/13/16 21:05 Dose: 3.125 mg Chlorhexidine Gluconate (Hibiclens For Decolonization -) 1 applic TP HS [facility] Last Admin: 10/13/16 21:05 Dose: 1 applic Chlorhexidine Gluconate (Peridex -) 15 ml MM BID [facility] Last Admin: 10/13/16 22:54 Dose: 15 ml Pantoprazole Sodium (Protonix 40mg Ivpb (Pre-Docked)) 100 mls @ 200 mls/hr IVPB DAILY [facility] Last Admin: 10/13/16 10:04 Dose: 200 mls/hr Propofol (Diprivan -) 100 mls @ 3.81 mls/hr IVPB TITR LYNETTE; 5 MCG/KG/MIN PRN Reason: Protocol Last Admin: 10/13/16 21:04 Dose: 19 mls/hr Fentanyl 500 mcg/ Dextrose 100 mls @ 1 mls/hr IJ TITR LYNETTE PRN Reason: 5 MCG/HR Last Admin: 10/13/16 09:52 Dose: 1 mls/hr Norepinephrine Bitartrate 8, (000 mcg/ Dextrose) 500 mls @ 18.75 mls/hr IV TITR LYNETTE; 5 MCG/MIN PRN Reason: Protocol Last Titration: 10/13/16 15:00 Dose: 3 mcg/min Polyethylene Glycol (Miralax (For Daily Use) -) 17 gm PO BID LYNETTE Last Admin: 10/13/16 21:04 Dose: Not Given Potassium Chloride (Potassium Chloride Oral Liquid) 40 meq PO DAILY LYNETTE Last Admin: 10/13/16 10:04 Dose: 40 meq Review of Systems Unable to Obtain Vital Signs: Last Vital Signs Temp Pulse Resp BP Pulse Ox 100.0 F H 112 H 15 131/76 96 10/14/16 06:00 10/14/16 06:00 10/14/16 06:00 10/14/16 06:00 10/14/16 00:00 Intake & Output 10/11/16 10/12/16 10/13/16 10/14/16 23:59 23:59 23:59 23:59 Intake Total 2260.1 3044.3 2376.7 483.6 Output Total 5375 3800 3200 1000 Balance -3114.9 -755.7 -823.3 -516.4 Weight 264 lb 3.2 oz 258 lb 8 oz 252 lb 6.4 oz 250 lb 7.122 oz Neck: Supple Negative JVD Respiratory: Diminished Breath Sounds at the Bases Cardiovascular: S1 S2 Irregularly Irregular Gastrointestinal: Soft Benign Normal Bowel Sounds Ext: 1+ Edema Bilaterally Labs: CBC, BMP 10/13/16 05:35 10/13/16 05:35 AM blood test is pending Assessment/Plan ASSESSMENT: 1. Acute class III-IV NYHA classification LV failure related to systolic/ diastolic LV dysfunction, respiratory failure, resolving, pre-renal azotemia 2. Unclear if ischemic dilated cardiomyopathy vs. ideopathic cardiomyopathy vs. tachycardia induced cardiomyopathy (atrial fibrillation) 3. CAD angina pectoris to be excluded 4. Persistent atrial fibrillation with periods of rapid ventricular response, [id number] score of 2 5. HTN, hypotensive requiring pressors currently normotensive 6. Hypercholesterolemia 7. Acute renal insufficiency 8. Polycythmia 9. Thrombocytopenia PLAN: 1. Continue to hold Lasix 2. Continue Coreg with caution, hemodynamics permitting 3. Hold resumption of Dobutamine at this point and as outlined above consider proceeding with RH cath/Brogan-Belle catheter insertion to guide therapy 4. D/C Norepinephrine 5. Continue NOAC's, Eliquis 6. Ideally should be on ACEI or ARBS unless it is contraindicated, hemodynamic stabilization and renal function stabilization 7. Follow labs from this AM 8. Attempt to wean off sedation and extubate as per the critical care team Bran Carlin MD
[2016-10-14 06:40] LABS: BASOPHIL 0.9 % (0-2.0); EOSINOPHIL 3.2 % (0-4.5); MCH 31.4 pg (25.7-33.7); MCHC 31.8 g/dl (32.0-35.9); MEAN CELL VOLUME 98.9 fl (80-96); MEAN PLT VOLUME 9.7 fl (7.5-11.1); NEUTROPHILS 71.2 % (42.8-82.8); PLATELET COUNT 120 K/MM3 (134-434); RDW 16.2 % (11.9-15.9); WHITE BLOOD COUNT 7.7 K/mm3 (4.0-10.0)
[2016-10-14] MEDS ORDERED: PROPOFOL 20 ML ONE (06:50)
[2016-10-14] MEDS ORDERED: PROPOFOL 60 ML ONE (06:54)
[2016-10-14 07:01] LABS: CALCIUM 8.7 mg/dL (8.5-10.1); CREATININE 0.9 mg/dL (0.7-1.3); MAGNESIUM 2.5 mg/dL (1.8-2.4); PHOSPHOROUS 2.8 mg/dL (2.5-4.9)
[2016-10-14] MEDS: FENTANYL INJECTION 500 MCG in DEXTROSE 5%-WATER - 90 ML IJ SCH ×2 (08:00→09:40)
[2016-10-14] MEDS: PROPOFOL 100 ML IVPB SCH (08:00)
[2016-10-14] MEDS: AMINO ACIDS/PROTEIN HYDROLYS 30 ML LIQUID.PKT PO SCH ×2 (08:31→17:56)
[2016-10-14] MEDS: APIXABAN 5 MG TABLET PO SCH ×2 (09:01→21:34)
[2016-10-14] MEDS: POTASSIUM CHLORIDE ORAL LIQUID 20 MEQ/15 ML PO SCH (09:02)
[2016-10-14] MEDS: CHLORHEXIDINE GLUCONATE 0.12% 15ML CUP MM SCH ×2 (09:02→21:35)
[2016-10-14] MEDS: POLYETHYLENE GLYCOL 3350 119 GM BTL PO SCH ×2 (09:02→21:35)
[2016-10-14] MEDS: CARVEDILOL 3.125 MG TABLET (FP) NGT SCH (09:02)
[2016-10-14] MEDS: PANTOPRAZOLE SODIUM 100 ML IVPB SCH (09:03)
--- NOTE | 2016-10-14 09:37 | PN ---
Progress Note (short form) - Note Progress Note: sedated and intubated no pressors zosyn stopped yesterday fi02 50% Vital Signs Period Temp Pulse Resp BP Sys/Clements Pulse Ox Last 24 Hr 99.4 F-100.9 F 106-130 14-18 69-150/45-94 95-100 cor-rrr lungs decreased bs at bases abd soft,nt ext no edema +maxwell +left IJ CBC, BMP 10/14/16 06:05 10/14/16 05:45 Microbiology 10/10/16 17:30 Blood Culture - Preliminary Blood - Peripheral Venous NO GROWTH OBTAINED AFTER 72 HOURS, INCUBATION TO CONTINUE FOR 2 DAYS. 10/10/16 17:30 Blood Culture - Preliminary Blood - Peripheral Venous NO GROWTH OBTAINED AFTER 72 HOURS, INCUBATION TO CONTINUE FOR 2 DAYS. 10/10/16 18:41 Gram Stain - Final Sputum - Endotrachea Suction/Ventilator Sputum Culture - Final 10/08/16 08:40 Blood Culture - Final Blood - Peripheral Venous NO GROWTH AFTER 5 DAYS INCUBATION 10/08/16 08:40 Blood Culture - Final Blood - Peripheral Venous NO GROWTH AFTER 5 DAYS INCUBATION Current Medications Acetaminophen (Tylenol -) 650 mg PO Q6H PRN PRN Reason: FEVER OR PAIN Last Admin: 10/13/16 22:53 Dose: 650 mg Amino Acids (Prosource No Carb Liquid Pkt) 30 ml PO BID@0800,1730 [facility] Last Admin: 10/14/16 08:31 Dose: 30 ml Apixaban (Eliquis -) 5 mg PO BID [facility] Last Admin: 10/14/16 09:01 Dose: 5 mg Carvedilol (Coreg -) 3.125 mg NGT BID [facility] Last Admin: 10/14/16 09:02 Dose: Not Given Chlorhexidine Gluconate (Hibiclens For Decolonization -) 1 applic TP HS [facility] Last Admin: 10/13/16 21:05 Dose: 1 applic Chlorhexidine Gluconate (Peridex -) 15 ml MM BID [facility] Last Admin: 10/14/16 09:02 Dose: 15 ml Pantoprazole Sodium (Protonix 40mg Ivpb (Pre-Docked)) 100 mls @ 200 mls/hr IVPB DAILY [facility] Last Admin: 10/14/16 09:03 Dose: 200 mls/hr Propofol (Diprivan -) 100 mls @ 3.81 mls/hr IVPB TITR LYNETTE; 5 MCG/KG/MIN PRN Reason: Protocol Last Admin: 10/14/16 08:00 Dose: 19.051 mls/hr Fentanyl 500 mcg/ Dextrose 100 mls @ 1 mls/hr IJ TITR LYNETTE PRN Reason: 5 MCG/HR Last Admin: 10/13/16 09:52 Dose: 1 mls/hr Norepinephrine Bitartrate 8, (000 mcg/ Dextrose) 500 mls @ 18.75 mls/hr IV TITR LYNETTE; 5 MCG/MIN PRN Reason: Protocol Last Titration: 10/14/16 06:33 Dose: 0 mcg/min Polyethylene Glycol (Miralax (For Daily Use) -) 17 gm PO BID LYNETTE Last Admin: 10/14/16 09:02 Dose: Not Given Potassium Chloride (Potassium Chloride Oral Liquid) 40 meq PO DAILY LYNETTE Last Admin: 10/14/16 09:02 Dose: 40 meq cxray unchanged a/p respiratory failure chf fevers- d/w Dr Gutierrez, will continue zosyn another 48- 72 hours for pneumonia
[2016-10-14] MEDS: PIPERACILLIN/TAZOB 4.5 GM/100 ML PRE-DOCKED IVPB SCH ×2 (11:00→18:14)
--- NOTE | 2016-10-14 12:21 | PN ---
Teaching Attending Note Name of Resident: Nick Kang ATTENDING PHYSICIAN STATEMENT I saw and evaluated the patient. I reviewed the resident's note and discussed the case with the resident. I agree with the resident's findings and plan as documented. SUBJECTIVE: Pt seen and examined in the ICU. Remains intubated, sedated. Vented on volume assist control but oxygen requirements improving. Low grade temps persist. OBJECTIVE: Last Vital Signs Temp Pulse Resp BP Pulse Ox 99.9 F H 105 H 14 100/77 100 10/14/16 10:00 10/14/16 10:00 10/14/16 11:29 10/14/16 10:00 10/14/16 08:00 Intake & Output 10/11/16 10/12/16 10/13/16 10/14/16 23:59 23:59 23:59 23:59 Intake Total 2260.1 3044.3 2376.7 1133.6 Output Total 5375 3800 3200 1000 Balance -3114.9 -755.7 -823.3 133.6 Weight 264 lb 3.2 oz 258 lb 8 oz 252 lb 6.4 oz 250 lb 7.122 oz Gen: intubated, sedated Heart: tachycardic, irregular Lung: scattered rhonchi Abd: soft, nontender Ext: decreasing edema CBC, BMP 10/14/16 06:05 10/14/16 05:45 Active Medications Acetaminophen (Tylenol -) 650 mg PO Q6H PRN PRN Reason: FEVER OR PAIN Last Admin: 10/13/16 22:53 Dose: 650 mg Amino Acids (Prosource No Carb Liquid Pkt) 30 ml PO BID@0800,1730 [facility] Last Admin: 10/14/16 08:31 Dose: 30 ml Apixaban (Eliquis -) 5 mg PO BID [facility] Last Admin: 10/14/16 09:01 Dose: 5 mg Carvedilol (Coreg -) 3.125 mg NGT BID [facility] Last Admin: 10/14/16 09:02 Dose: Not Given Chlorhexidine Gluconate (Hibiclens For Decolonization -) 1 applic TP HS [facility] Last Admin: 10/13/16 21:05 Dose: 1 applic Chlorhexidine Gluconate (Peridex -) 15 ml MM BID [facility] Last Admin: 10/14/16 09:02 Dose: 15 ml Furosemide (Lasix Injection -) 40 mg IVPUSH ONCE ONE Stop: 10/14/16 11:47 Pantoprazole Sodium (Protonix 40mg Ivpb (Pre-Docked)) 100 mls @ 200 mls/hr IVPB DAILY [facility] Last Admin: 10/14/16 09:03 Dose: 200 mls/hr Propofol (Diprivan -) 100 mls @ 3.81 mls/hr IVPB TITR [facility]; 5 MCG/KG/MIN PRN Reason: Protocol Last Admin: 10/14/16 08:00 Dose: 19.051 mls/hr Fentanyl 500 mcg/ Dextrose 100 mls @ 1 mls/hr IJ TITR [facility] PRN Reason: 5 MCG/HR Last Admin: 10/14/16 09:40 Dose: Not Given Norepinephrine Bitartrate 8, (000 mcg/ Dextrose) 500 mls @ 18.75 mls/hr IV TITR [facility]; 5 MCG/MIN PRN Reason: Protocol Last Titration: 10/14/16 06:33 Dose: 0 mcg/min Piperacillin Sod/Tazobactam Sod (Zosyn 4.5gm Ivpb (Pre-Docked)) 4.5 gm IVPB Q8H -IV [facility] Last Admin: 10/14/16 11:00 Dose: 4.5 gm Polyethylene Glycol (Miralax (For Daily Use) -) 17 gm PO BID [facility] Last Admin: 10/14/16 09:02 Dose: Not Given Potassium Chloride (Potassium Chloride Oral Liquid) 40 meq PO DAILY [facility] Last Admin: 10/14/16 09:02 Dose: 40 meq ASSESSMENT AND PLAN: Acute Hypoxic and Hypercapneic Respiratory Failure Acute on ?Chronic LV Systolic Heart Failure Pulmonary HTN Volume Overload Atrial Fibrillation with RVR Acute Kidney Injury Hyperthyroidism Fevers - r/o Pneumonia - continue antibiotics - f/u repeat cultures - lasix 40mg x 1 today - monitor urine output, creatinine - daily weights, I/Os - lopressor for rate control - continue anticoagulation - inhaled bronchodilators - continue to taper FiO2, PEEP to keep SpO2 >90% - hold sedation in AM to assess mental status - start spontaneous breathing trials in AM if oxygen requirements continue to improve - enteral feeds - DVT/GI prophylaxis - continue ICU monitoring critical care time spent reviewing chart, evaluating patient and formulating plan 40 min
--- NOTE | 2016-10-14 12:44 | PN ---
Physical Exam: SUBJECTIVE: Patient seen and examined patient intubated and sedated, maintaing spo2> 90 on fiot 40 and peep 8. sedation stopped, patient tolerated cpap, Patient extubated. off from pressor CXr reviewed, started on antibiotics by id will remove central line patient to OBJECTIVE: Vital Signs Period Temp Pulse Resp BP Sys/Clements Pulse Ox Last 24 Hr 99.4 F-100.9 F 105-130 14-18 69-150/45-94 95-100 GENERAL: sedated and intubated HEAD: Normal with no signs of trauma. EARS, NOSE, THROAT: Ears normal, nares patent, oropharynx clear without exudates. NECK: supple without lymphadenopathy, JVD, or masses. LUNGS: Breath sounds equal bilateral, . No wheezes, ronchi present HEART: s1s2 normal, hr irregularly irregular ABDOMEN: edema in anterior abdominal wall decreased, scrotum swelling decreased UPPER EXTREMITIES: 2+ pulses, warm, well-perfused. No cyanosis. LOWER EXTREMITIES: 2+ pulses, warm, well-perfused. No calf tenderness.peripheral edema present 1+ NEUROLOGICAL: unobtainable SKIN: Warm, dry, Laboratory Results - last 24 hr 10/13/16 10/14/16 10/14/16 09:11 05:45 05:45 WBC RBC Hgb Hct MCV MCHC RDW Plt Count MPV Neutrophils % Lymphocytes % Monocytes % Eosinophils % Basophils % ESR 21 H Sodium 143 Potassium 3.5 Chloride 90 L Carbon Dioxide 45 H Anion Gap 8 BUN 46 H Creatinine 0.9 D Random Glucose 142 H D Calcium 8.7 Phosphorus 2.8 D Magnesium 2.5 H RPR Titer HIV 1&2 Antibody Screen Negative HIV P24 Antigen Negative 10/14/16 10/14/16 06:05 06:05 WBC 7.7 RBC 5.61 H Hgb 17.6 H Hct 55.5 H MCV 98.9 H MCHC 31.8 L RDW 16.2 H Plt Count 120 L MPV 9.7 Neutrophils % 71.2 Lymphocytes % 9.9 Monocytes % 14.8 H Eosinophils % 3.2 Basophils % 0.9 ESR Sodium Potassium Chloride Carbon Dioxide Anion Gap BUN Creatinine Random Glucose Calcium Phosphorus Magnesium RPR Titer Nonreactive HIV 1&2 Antibody Screen HIV P24 Antigen Active Medications Generic Name Dose Route Start Last Admin Trade Name Freq PRN Reason Stop Dose Admin Acetaminophen 650 mg 10/10/16 15:28 10/13/16 22:53 Tylenol - PO 650 mg Q6H PRN Administration FEVER OR PAIN Amino Acids 30 ml 10/10/16 17:30 10/14/16 08:31 Prosource No Carb Liquid Pkt PO 30 ml BID@0800,1730 [facility] Administration Apixaban 5 mg 10/09/16 10:30 10/14/16 09:01 Eliquis - PO 5 mg BID [facility] Administration Carvedilol 3.125 mg 10/09/16 10:30 10/14/16 09:02 Coreg - NGT Not Given BID [facility] Chlorhexidine Gluconate 1 applic 10/05/16 22:00 10/13/16 21:05 Hibiclens For Decolonization - TP 1 applic HS [facility] Administration Chlorhexidine Gluconate 15 ml 10/06/16 10:00 10/14/16 09:02 Peridex - MM 15 ml BID [facility] Administration Furosemide 40 mg 10/14/16 13:00 Lasix Injection - IVPUSH 10/14/16 13:01 ONCE ONE Pantoprazole Sodium 100 mls @ 200 mls/hr 10/06/16 10:00 10/14/16 09:03 Protonix 40mg Ivpb (Pre-Docked) IVPB 200 mls/hr DAILY [facility] Administration Propofol 100 mls @ 3.81 mls/hr 10/05/16 21:45 10/14/16 08:00 Diprivan - IVPB 19.051 mls/hr TITR [facility] Administration Protocol 5 MCG/KG/MIN Fentanyl 500 mcg/ Dextrose 100 mls @ 1 mls/hr 10/13/16 09:40 10/14/16 09:40 IJ Not Given TITR [facility] 5 MCG/HR Norepinephrine Bitartrate 8, 500 mls @ 18.75 mls/hr 10/13/16 13:30 10/14/16 06: 33 000 mcg/ Dextrose IV 0 mcg/min TITR [facility] Titration Protocol 5 MCG/MIN Piperacillin Sod/Tazobactam Sod 4.5 gm 10/14/16 11:00 10/14/16 11:00 Zosyn 4.5gm Ivpb (Pre-Docked) IVPB 4.5 gm Q8H-IV [facility] Administration Polyethylene Glycol 17 gm 10/09/16 22:00 10/14/16 09:02 Miralax (For Daily Use) - PO Not Given BID [facility] Potassium Chloride 40 meq 10/08/16 10:00 10/14/16 09:02 Potassium Chloride Oral Liquid PO 40 meq DAILY [facility] Administration ASSESSMENT/PLAN: Acute exacerbation CHF with hypoxic hypercapnic respiratory failure off from lasix and pressor monitor i/o, maintain negative balance daily weight monitor vitals, follow echo : LV systolic function mild to moderately reduced cxr effusion decreased, right side consolidation on duoneb neb one time lasix 40mg iv Fever; culture negative cxr reviewed, low grade fever continues UA : no uti id on case: on zosyn A fib on eliquis on coreg 3.12 bid give lopressor for rate control cardiology on case Hypotension keep MAP >65 MONIE ( cardiorenal) - improved - nephrology on case - avoid nephrotoxic drugs - monitor creatinine Hypokalemia and hypomagnesemia improved FEN -diurese, avoid IV fluid -replete lytes - on tube feed PPX: PPI, eliquis Dispo: ICU Visit type - Emergency Visit Emergency Visit: Yes ED Registration Date: 10/05/16 Care time: The patient presented to the Emergency Department on the above date and was hospitalized for further evaluation of their emergent condition. - New Patient This patient is new to me today: No - Critical Care Critical Care patient: Yes Total Critical Care Time (in minutes): 45 Critical Care Statement: The care of this patient involved high complexity decision making to prevent further life threatening deterioration of the patient 's condition and/or to evalute & treat vital organ system(s) failure or risk of failure.
[2016-10-14] MEDS ORDERED: FUROSEMIDE 40 MG/4 ML INJECTABLE VIAL IVPUSH ONE (13:00)
--- NOTE | 2016-10-14 13:28 | PN ---
Teaching Attending Note Name of Resident: Hillary Reyes ATTENDING PHYSICIAN STATEMENT I saw and evaluated the patient. I reviewed the resident's note and discussed the case with the resident. I agree with the resident's findings and plan as documented. SUBJECTIVE: Cont to have fever . was able to be weaned to 50 % FiO2 . was placed on pressors briefly last night OBJECTIVE: NAD , sedated, intubated . no JVD CV: irreg irreg , slightly tachy Lungs; decreased breath sounds at bases. no crackles heard ABd: 1+ abd wall edema , no TTP , absent BS Ext : improved pitting edema . wrinkled skin Scrotal swelling and pitting edema ( improved ) ASSESSMENT AND PLAN: 60 y/o man with ho GERD, HTN, previously mildly reduced EF who presented with scrotal swelling and was diagnosed with acute hypoxic resp failure due to acute CHF exacerbation 1- Acute hypoxic hypercapnic reap failure: 2/2 acute CHF exacerbation and possible developing PNA. FiO2 was able to wean down to 50%. cont high PEEP of 12 . - cont to hold lasix and inorp support - D/W Dr. MERRILL. since FiO2 requirement improved , will hold off Jackson sulma for today - agree with resuming Abx - sputum cx with nl jose antonio - if pt does not improve , or unable to extubate , then might consider steroids ( 40 yr hx smoking ) 2- Cardiogenic shock: - off pressors now 3- MONIE : due to pre-renal Azotemia from decreased [employer] - monitor off diuresis 4- New onset A fib. - Eliquis - cont BB as hemodynamics allow 5- Electrolytes abn :replete as needed Microbiology 10/13/16 12:00 Gram Stain - Final Sputum - Endotrachea Suction/Ventilator Sputum Culture - Preliminary NORMAL RESPIRATORY JOSE ANTONIO 10/10/16 17:30 Blood Culture - Preliminary Blood - Peripheral Venous NO GROWTH OBTAINED AFTER 72 HOURS, INCUBATION TO CONTINUE FOR 2 DAYS. 10/10/16 17:30 Blood Culture - Preliminary Blood - Peripheral Venous NO GROWTH OBTAINED AFTER 72 HOURS, INCUBATION TO CONTINUE FOR 2 DAYS. 10/10/16 18:41 Gram Stain - Final Sputum - Endotrachea Suction/Ventilator Sputum Culture - Final Critical Care Total Critical Care Time (in minutes): 35 Critical Care Statement: The care of this patient involved high complexity decision making to prevent further life threatening deterioration of the patient 's condition and/or to evalute & treat vital organ system(s) failure or risk of failure.
[2016-10-14] MEDS: ALBUTEROL SO4 2.5/IPRATROPIUM 0.5 INH SOL 3 ML VIAL.NEB. NEB SCH ×2 (13:47→17:53)
--- NOTE | 2016-10-14 14:28 | PN ---
Progress Note, Physician History of Present Illness: Pt seen and examined at bedside. He is awake and currently on a weaning trial. - Current Medication List Current Medications: Active Medications Acetaminophen (Tylenol -) 650 mg PO Q6H PRN PRN Reason: FEVER OR PAIN Last Admin: 10/13/16 22:53 Dose: 650 mg Acetylcysteine (Mucomyst 20 Oral / Inh Use Only*) 800 mg NEB ONCE ONE Stop: 10/14/16 14:19 Albuterol/Ipratropium (Duoneb -) 1 amp NEB QIDR [facility] Last Admin: 10/14/16 13:47 Dose: 1 amp Amino Acids (Prosource No Carb Liquid Pkt) 30 ml PO BID@0800,1730 [facility] Last Admin: 10/14/16 08:31 Dose: 30 ml Apixaban (Eliquis -) 5 mg PO BID [facility] Last Admin: 10/14/16 09:01 Dose: 5 mg Carvedilol (Coreg -) 3.125 mg NGT BID [facility] Last Admin: 10/14/16 09:02 Dose: Not Given Chlorhexidine Gluconate (Hibiclens For Decolonization -) 1 applic TP HS [facility] Last Admin: 10/13/16 21:05 Dose: 1 applic Chlorhexidine Gluconate (Peridex -) 15 ml MM BID [facility] Last Admin: 10/14/16 09:02 Dose: 15 ml Pantoprazole Sodium (Protonix 40mg Ivpb (Pre-Docked)) 100 mls @ 200 mls/hr IVPB DAILY [facility] Last Admin: 10/14/16 09:03 Dose: 200 mls/hr Fentanyl 500 mcg/ Dextrose 100 mls @ 1 mls/hr IJ TITR [facility] PRN Reason: 5 MCG/HR Last Admin: 10/14/16 09:40 Dose: Not Given Piperacillin Sod/Tazobactam Sod (Zosyn 4.5gm Ivpb (Pre-Docked)) 4.5 gm IVPB Q8H -IV [facility] Last Admin: 10/14/16 11:00 Dose: 4.5 gm Polyethylene Glycol (Miralax (For Daily Use) -) 17 gm PO BID [facility] Last Admin: 10/14/16 09:02 Dose: Not Given Potassium Chloride (Potassium Chloride Oral Liquid) 40 meq PO DAILY [facility] Last Admin: 10/14/16 09:02 Dose: 40 meq - Objective Vital Signs: Vital Signs Temperature 99.9 F H 10/14/16 14:00 Pulse Rate 144 H 10/14/16 14:08 Respiratory Rate 18 10/14/16 14:00 Blood Pressure 105/83 10/14/16 14:00 O2 Sat by Pulse Oximetry (%) 93 L 10/14/16 14:08 Constitutional: Yes: Calm Eyes: Yes: Conjunctiva Clear HENT: Yes: Atraumatic Cardiovascular: Yes: S1, S2 Respiratory: Yes: Mechanically Ventilated Gastrointestinal: Yes: Soft, Abdomen, Obese Genitourinary: Yes: Hilario Present Musculoskeletal: Yes: Muscle Weakness Edema: Yes Edema: LLE: 2+, RLE: 2+ Neurological: Yes: Other (follows simple commands) Labs: CBC, BMP 10/14/16 06:05 10/14/16 05:45 INR, PTT INR 1.32 (0.82-1.09) H 10/13/16 05:35 - ....Imaging Chest X-ray: Report Reviewed Problem List - Problems (1) Acute kidney injury Code(s): N17.9 - ACUTE KIDNEY FAILURE, UNSPECIFIED (2) Anasarca Code(s): R60.1 - GENERALIZED EDEMA (3) Congestive heart failure (CHF) Code(s): I50.9 - HEART FAILURE, UNSPECIFIED Qualifiers: Congestive heart failure type: combined Congestive heart failure chronicity: acute Qualified Code(s): I50.41 - Acute combined systolic ( congestive) and diastolic (congestive) heart failure (4) Morbid obesity Code(s): E66.01 - MORBID (SEVERE) OBESITY DUE TO EXCESS CALORIES (5) Renal insufficiency Code(s): N28.9 - DISORDER OF KIDNEY AND URETER, UNSPECIFIED Assessment/Plan Current Medications Generic Name Dose Route Start Last Admin Trade Name Freq PRN Reason Stop Dose Admin Acetaminophen 650 mg 10/10/16 15:28 10/13/16 22:53 Tylenol - PO 650 mg Q6H PRN Administration FEVER OR PAIN Acetylcysteine 800 mg 10/14/16 14:18 Mucomyst 20 Oral / Inh Use Only* NEB 10/14/16 14:19 ONCE ONE Albuterol/Ipratropium 1 amp 10/14/16 13:30 10/14/16 13:47 Duoneb - NEB 1 amp QIDR [facility] Administration Amino Acids 30 ml 04/07/17 17:30 10/14/16 08:31 Prosource No Carb Liquid Pkt PO 30 ml BID@0800,1730 [facility] Administration Apixaban 5 mg 10/09/16 10:30 10/14/16 09:01 Eliquis - PO 5 mg BID [facility] Administration Carvedilol 3.125 mg 10/09/16 10:30 10/14/16 09:02 Coreg - NGT Not Given BID [facility] Chlorhexidine Gluconate 1 applic 10/05/16 22:00 10/13/16 21:05 Hibiclens For Decolonization - TP 1 applic HS [facility] Administration Chlorhexidine Gluconate 15 ml 10/06/16 10:00 10/14/16 09:02 Peridex - MM 15 ml BID [facility] Administration Pantoprazole Sodium 100 mls @ 200 mls/hr 10/06/16 10:00 10/14/16 09:03 Protonix 40mg Ivpb (Pre-Docked) IVPB 200 mls/hr DAILY [facility] Administration Fentanyl 500 mcg/ Dextrose 100 mls @ 1 mls/hr 10/13/16 09:40 10/14/16 09:40 IJ Not Given TITR [facility] 5 MCG/HR Piperacillin Sod/Tazobactam Sod 4.5 gm 10/14/16 11:00 10/14/16 11:00 Zosyn 4.5gm Ivpb (Pre-Docked) IVPB 4.5 gm Q8H-IV [facility] Administration Polyethylene Glycol 17 gm 10/09/16 22:00 10/14/16 09:02 Miralax (For Daily Use) - PO Not Given BID [facility] Potassium Chloride 40 meq 10/08/16 10:00 10/14/16 09:02 Potassium Chloride Oral Liquid PO 40 meq DAILY [facility] Administration Impression 1. Azotemia 2. CHF acute 3. acute resp failure requiring intubation 4. new onset atrial fibrillation 5. hx of htn 6. obesity 7. chronic smoker 8. hypokalemia Plan - renal function is improved - can resume lasix, he did receive a dose today - discussed with ICU team - weaning per pulmonary - cont vent support - monitor urine ouput - will follow Dr Delacruz
--- NOTE | 2016-10-14 14:53 | PN ---
Physical Exam: SUBJECTIVE: Patient seen and examined Patient resting in bed, intubated, sedated. minimally wakeful. Continuously running low grade fever day 7. was on levophed overnight now off and hemodynamically stable. Off lasix and dobutamine. Positive fluid balance of 133 overnight, appears dry. BP 87/62 (70). in A fib rate 112, O2 sat 97% Vent setting 14/475/50/60/12/12. OBJECTIVE: Vital Signs Period Temp Pulse Resp BP Sys/Clements Pulse Ox Last 24 Hr 99.4 F-100.9 F 103-147 14-18 80-131/45-83 93-100 GENERAL: sedated overall less edematous HEAD: Normal with no signs of trauma, obese EYES: pinpoint EARS, NOSE, THROAT: Moist mucous membranes. NECK: supple + JVD LUNGS: reduced breath sounds at bases HEART: tachy, irregular ABDOMEN: smaller, softer, 1+ edema, moderately erythematous, reduced bowel sounds MUSCULOSKELETAL: No bony deformities UPPER EXTREMITIES: 2+ pulses, mild peripheral edema. LOWER EXTREMITIES: 1+ pulses, 2+ pitting edema much improved, skin now wrinkled , chronic stasis dermatitis b/l NEUROLOGICAL: grossly symmetrical face PSYCHIATRIC: unable to assess SKIN: Warm, dry Laboratory Results - last 24 hr 10/14/16 10/14/16 10/14/16 05:45 05:45 06:05 WBC 7.7 RBC 5.61 H Hgb 17.6 H Hct 55.5 H MCV 98.9 H MCHC 31.8 L RDW 16.2 H Plt Count 120 L MPV 9.7 Neutrophils % 71.2 Lymphocytes % 9.9 Monocytes % 14.8 H Eosinophils % 3.2 Basophils % 0.9 ESR 21 H Sodium 143 Potassium 3.5 Chloride 90 L Carbon Dioxide 45 H Anion Gap 8 BUN 46 H Creatinine 0.9 D Random Glucose 142 H D Calcium 8.7 Phosphorus 2.8 D Magnesium 2.5 H RPR Titer 10/14/16 06:05 WBC RBC Hgb Hct MCV MCHC RDW Plt Count MPV Neutrophils % Lymphocytes % Monocytes % Eosinophils % Basophils % ESR Sodium Potassium Chloride Carbon Dioxide Anion Gap BUN Creatinine Random Glucose Calcium Phosphorus Magnesium RPR Titer Nonreactive Active Medications Generic Name Dose Route Start Last Admin Trade Name Freq PRN Reason Stop Dose Admin Acetaminophen 650 mg 10/10/16 15:28 10/13/16 22:53 Tylenol - PO 650 mg Q6H PRN Administration FEVER OR PAIN Acetylcysteine 800 mg 10/14/16 14:18 Mucomyst 20 Oral / Inh Use Only* NEB 10/14/16 14:19 ONCE ONE Albuterol/Ipratropium 1 amp 10/14/16 13:30 10/14/16 13:47 Duoneb - NEB 1 amp QIDR [facility] Administration Amino Acids 30 ml 10/10/16 17:30 10/14/16 08:31 Prosource No Carb Liquid Pkt PO 30 ml BID@0800,1730 [facility] Administration Apixaban 5 mg 10/09/16 10:30 10/14/16 09:01 Eliquis - PO 5 mg BID [facility] Administration Carvedilol 3.125 mg 10/09/16 10:30 10/14/16 09:02 Coreg - NGT Not Given BID [facility] Chlorhexidine Gluconate 1 applic 10/05/16 22:00 10/13/16 21:05 Hibiclens For Decolonization - TP 1 applic HS [facility] Administration Chlorhexidine Gluconate 15 ml 10/06/16 10:00 10/14/16 09:02 Peridex - MM 15 ml BID [facility] Administration Pantoprazole Sodium 100 mls @ 200 mls/hr 10/06/16 10:00 10/14/16 09:03 Protonix 40mg Ivpb (Pre-Docked) IVPB 200 mls/hr DAILY [facility] Administration Fentanyl 500 mcg/ Dextrose 100 mls @ 1 mls/hr 10/13/16 09:40 10/14/16 09:40 IJ Not Given TITR [facility] 5 MCG/HR Piperacillin Sod/Tazobactam Sod 4.5 gm 10/14/16 11:00 10/14/16 11:00 Zosyn 4.5gm Ivpb (Pre-Docked) IVPB 4.5 gm Q8H-IV [facility] Administration Polyethylene Glycol 17 gm 10/09/16 22:00 10/14/16 09:02 Miralax (For Daily Use) - PO Not Given BID [facility] Potassium Chloride 40 meq 10/08/16 10:00 10/14/16 09:02 Potassium Chloride Oral Liquid PO 40 meq DAILY [facility] Administration ASSESSMENT/PLAN: This is a 60 yo M every day smoker with PMH of HTN, GERD, and obesity who presents due to testicular swelling x 1 W and worsening SOB. Acute decompensated CHF -NYHA class III-IV -was in severe fluid overload, anasarca -TTE mild/mod reduced EF, mild pulm HTN, RVP 30-40, global mild/mod LV hypokinesis worse than 05/06/16 -CXR AM the same -Per discussion with ICU team, patient appears volume contracted, still in afib with rvr -cardio consult appreciated, recommends SWAN but ICU tem will hold off for now -continue coreg 3.125 bid po -strict I and O -daily weight -am xray -tele monitoring a fib -icu monitoring -wean off sedation Fever -CT chest: goiter, RUL cystic lesion, bibasilar effusions and consolidation -sputum, blood cultures negative -ID consult: unlikely infectious but continue zosyn for another 24 hr -remove central line (day 9) Hypotension -now off pressors A fib -eliquis Hyperthyroid -incidental, repeat labs wnl MONIE -creat 0.9 at baseline Acute hypoxic respiratory failure -intubated -keep FIO2 >88 -daily weaning FEN -no IVF -replete lytes -Promote tube feed PPX: PPI, noac Dispo: ICU Problem List - Problems (1) Acute respiratory failure requiring reintubation Code(s): J96.00 - ACUTE RESPIRATORY FAILURE, UNSP W HYPOXIA OR HYPERCAPNIA (2) Atrial fibrillation, new onset Code(s): I48.91 - UNSPECIFIED ATRIAL FIBRILLATION (3) Congestive heart failure (CHF) Code(s): I50.9 - HEART FAILURE, UNSPECIFIED Qualifiers: Congestive heart failure type: combined Congestive heart failure chronicity: acute Qualified Code(s): I50.41 - Acute combined systolic ( congestive) and diastolic (congestive) heart failure (4) Edema of scrotum Code(s): N50.89 - OTHER SPECIFIED DISORDERS OF THE MALE GENITAL ORGANS (5) Lymphedema of both lower extremities Code(s): I89.0 - LYMPHEDEMA, NOT ELSEWHERE CLASSIFIED (6) Morbid obesity Code(s): E66.01 - MORBID (SEVERE) OBESITY DUE TO EXCESS CALORIES (7) Renal insufficiency Code(s): N28.9 - DISORDER OF KIDNEY AND URETER, UNSPECIFIED (8) Sleep apnea Code(s): G47.30 - SLEEP APNEA, UNSPECIFIED Qualifiers: Sleep apnea type: unspecified type Qualified Code(s): G47.30 - Sleep apnea, unspecified (9) Acute kidney injury Code(s): N17.9 - ACUTE KIDNEY FAILURE, UNSPECIFIED (10) Anasarca Code(s): R60.1 - GENERALIZED EDEMA Visit type - Emergency Visit Emergency Visit: Yes ED Registration Date: 10/05/16 Care time: The patient presented to the Emergency Department on the above date and was hospitalized for further evaluation of their emergent condition. - New Patient This patient is new to me today: No - Critical Care Critical Care patient: Yes Total Critical Care Time (in minutes): 46 Critical Care Statement: The care of this patient involved high complexity decision making to prevent further life threatening deterioration of the patient 's condition and/or to evalute & treat vital organ system(s) failure or risk of failure. - Discharge Referral Referred to [facility] No
[2016-10-14] MEDS ORDERED: ACETYLCYSTEINE 20% 200MG/ML 4 ML VIAL *FOR ORAL / INH USE ONLY NEB ONE (15:00)
[2016-10-14] MEDS ORDERED: METOPROLOL TARTRATE 5 MG/5 ML VIAL ONE (15:45)
--- NOTE | 2016-10-14 15:49 | MSN ---
Progress Note (short form) - Note Progress Note: 60 yo male presented to ER 04 November for testicular swelling X 1 1/2 wks and increasing shortness of breath; he was diagnosed with new onset Afib, B/L LE lymphedema and edema of the scrotum. PMH sig for HTN, GERD, obesity and cigarette smoke. Pt. intubated in ICU. Patient had a neg balance of -823.3 ml in last 24 hrs. Current vent settings are 14/475/50/60/12/12. Last Vital Signs Temp Pulse Resp BP Pulse Ox 99.9 F H 144 H 18 105/83 93 L 10/14/16 14:00 10/14/16 14:08 10/14/16 14:00 10/14/16 14:00 10/14/16 14:08 Intake & Output 10/11/16 10/12/16 10/13/16 10/14/16 23:59 23:59 23:59 23:59 Intake Total 2260.1 3044.3 2376.7 1508.2 Output Total 5375 3800 3200 1000 Balance -3114.9 -755.7 -823.3 508.2 Weight 264 lb 3.2 oz 258 lb 8 oz 252 lb 6.4 oz 250 lb 7.122 oz Laboratory Results - last 24 hr 10/14/16 10/14/16 10/14/16 05:45 05:45 06:05 WBC 7.7 RBC 5.61 H Hgb 17.6 H Hct 55.5 H MCV 98.9 H MCHC 31.8 L RDW 16.2 H Plt Count 120 L MPV 9.7 Neutrophils % 71.2 Lymphocytes % 9.9 Monocytes % 14.8 H Eosinophils % 3.2 Basophils % 0.9 ESR 21 H Sodium 143 Potassium 3.5 Chloride 90 L Carbon Dioxide 45 H Anion Gap 8 BUN 46 H Creatinine 0.9 D Random Glucose 142 H D Calcium 8.7 Phosphorus 2.8 D Magnesium 2.5 H RPR Titer RPR Titer: non reactive Current Medications Generic Name Dose Route Start Last Admin Trade Name Freq PRN Reason Stop Dose Admin Acetaminophen 650 mg 10/10/16 15:28 10/13/16 22:53 Tylenol - PO 650 mg Q6H PRN Administration FEVER OR PAIN Albuterol/Ipratropium 1 amp 10/14/16 13:30 04/11/17 13:47 Duoneb - NEB 1 amp QIDR LYNETTE Administration Amino Acids 30 ml 10/10/16 17:30 10/14/16 08:31 Prosource No Carb Liquid Pkt PO 30 ml BID@0800,1730 LYNETTE Administration Apixaban 5 mg 10/09/16 10:30 10/14/16 09:01 Eliquis - PO 5 mg BID LYNETTE Administration Carvedilol 3.125 mg 10/09/16 10:30 10/14/16 09:02 Coreg - NGT Not Given BID LYNETTE Chlorhexidine Gluconate 1 applic 10/05/16 22:00 10/13/16 21:05 Hibiclens For Decolonization - TP 1 applic HS LYNETTE Administration Chlorhexidine Gluconate 15 ml 10/06/16 10:00 10/14/16 09:02 Peridex - MM 15 ml BID LYNETTE Administration Pantoprazole Sodium 100 mls @ 200 mls/hr 10/06/16 10:00 10/14/16 09:03 Protonix 40mg Ivpb (Pre-Docked) IVPB 200 mls/hr DAILY LYNETTE Administration Fentanyl 500 mcg/ Dextrose 100 mls @ 1 mls/hr 10/13/16 09:40 10/14/16 09:40 IJ Not Given TITR LYNETTE 5 MCG/HR Piperacillin Sod/Tazobactam Sod 4.5 gm 10/14/16 11:00 10/14/16 11:00 Zosyn 4.5gm Ivpb (Pre-Docked) IVPB 4.5 gm Q8H-IV LYNETTE Administration Polyethylene Glycol 17 gm 10/09/16 22:00 10/14/16 09:02 Miralax (For Daily Use) - PO Not Given BID LYNETTE Potassium Chloride 40 meq 10/08/16 10:00 10/14/16 09:02 Potassium Chloride Oral Liquid PO 40 meq DAILY LYNETTE Administration Chest x-ray: 10/14/16 - Large heart; Continued right lower lobe consolidation. General: Sedated on ventilation; pt asleep during examination Head: Normocephalic Neck: Neg JVD Heart:Irregularly irregular; tachycardic Lungs: B/L lower lobes decrease breath sounds Abdomen: Distended and edematous but slightly better that last examination; no TTP; BS normocephalic; no guarding : Testicular edema B/L slightly better; neg infection at maxwell site MSK: Pitting edema LE 1+ slightly better than last report; peripheral pulse 2+; B/L venous stasis LE Assessment & Plan: 60 yo male every day smoker with HTN, GERD, Obesity, testicular swelling and shortness of breath; diagnosed with new onset Afib, B/L lower extremity edema and edema of scrotum 1) Hypoxic Hypercapnic respiratory failure: - Secondary to Systolic Heart Failure fiO2 down to 60%; monitor peep; monitor i/o, mainatin neg fluid balance; daily weight, vitals; monitor CVP. Continue to hold Lasix and dobutamine; continue coreg 3.125 mg daily 2) Afib: Continue Eliquis 5 mg PO BID 3) Hypotension: given 1 dose levafed Continue monitoring MAP 4) MONIE (cardiorenal) - getting better; continue to trend 5) Hypokalemia- continue to trend Problem List - Problems (1) Congestive heart failure (CHF) Code(s): I50.9 - HEART FAILURE, UNSPECIFIED Qualifiers: Congestive heart failure type: combined Congestive heart failure chronicity: acute Qualified Code(s): I50.41 - Acute combined systolic ( congestive) and diastolic (congestive) heart failure (2) Acute respiratory failure requiring reintubation Code(s): J96.00 - ACUTE RESPIRATORY FAILURE, UNSP W HYPOXIA OR HYPERCAPNIA (3) Atrial fibrillation, new onset Code(s): I48.91 - UNSPECIFIED ATRIAL FIBRILLATION (4) Renal insufficiency Code(s): N28.9 - DISORDER OF KIDNEY AND URETER, UNSPECIFIED (5) Acute kidney injury Code(s): N17.9 - ACUTE KIDNEY FAILURE, UNSPECIFIED (6) Anasarca Code(s): R60.1 - GENERALIZED EDEMA (7) Cellulitis Code(s): L03.90 - CELLULITIS, UNSPECIFIED Qualifiers: Site of cellulitis: extremity Site of cellulitis of extremity: lower extremity Laterality: right Qualified Code(s): L03.115 - Cellulitis of right lower limb (8) Edema of scrotum Code(s): N50.89 - OTHER SPECIFIED DISORDERS OF THE MALE GENITAL ORGANS (9) Lymphedema of both lower extremities Code(s): I89.0 - LYMPHEDEMA, NOT ELSEWHERE CLASSIFIED (10) Morbid obesity Code(s): E66.01 - MORBID (SEVERE) OBESITY DUE TO EXCESS CALORIES (11) Sleep apnea Code(s): G47.30 - SLEEP APNEA, UNSPECIFIED Qualifiers: Sleep apnea type: unspecified type Qualified Code(s): G47.30 - Sleep apnea, unspecified
[2016-10-14 17:59] LABS: ARTERIAL BLOOD GAS BASE EXCESS 15.8 meq/l (-2-2); ARTERIAL BLOOD GAS PO2 67.8 mmHg (80-100); ARTERIAL BLOOD GAS pH 7.44 (7.35-7.45)
[2016-10-14] MEDS ORDERED: ALBUTEROL SO4 2.5/IPRATROPIUM 0.5 INH SOL 3 ML VIAL.NEB. NEB SCH (18:00)
[2016-10-14 18:01] LABS: ALLENS TEST POSITIVE; ART PUNCT SITE RIGHT RADIAL; LPM/O2% 50%; PT. ON O2? YES; TYPE OF O2 VENTI MASK
[2016-10-14 18:02] LABS: ARTERIAL BLOOD GAS HCO3 44.7 meq/L (22-26)
[2016-10-14] MEDS: CARVEDILOL 6.25 MG TABLET (FP) NGT SCH (21:34)
[2016-10-14] MEDS: CHLORHEXIDINE GLUCONATE 4% CLEANSER FOR DECOLONIZATION TP SCH (21:34)
[2016-10-15] MEDS: ALBUTEROL SO4 2.5/IPRATROPIUM 0.5 INH SOL 3 ML VIAL.NEB. NEB SCH ×4 (00:11→18:29)
[2016-10-15] MEDS: PIPERACILLIN/TAZOB 4.5 GM/100 ML PRE-DOCKED IVPB SCH ×3 (02:00→17:20)
[2016-10-15] MEDS ORDERED: CARVEDILOL 6.25 MG TABLET (FP) PO ONE (05:33)
[2016-10-15 06:43] LABS: BASOPHIL 1.3 % (0-2.0); MCH 32.1 pg (25.7-33.7); MCHC 32.8 g/dl (32.0-35.9); MEAN CELL VOLUME 97.7 fl (80-96); MEAN PLT VOLUME 10.2 fl (7.5-11.1); NEUTROPHILS 73.2 % (42.8-82.8); PLATELET COUNT 164 K/MM3 (134-434); RDW 15.3 % (11.9-15.9); WHITE BLOOD COUNT 9.3 K/mm3 (4.0-10.0)
[2016-10-15 07:08] LABS: ALBUMIN 2.8 g/dl (3.4-5.0); ALK PHOS 85 U/L (45-117); ANION GAP 10 (8-16); BILIRUBIN,TOTAL 2.7 mg/dL (0.2-1.0); CALCIUM 8.8 mg/dL (8.5-10.1); CO2 41 mmol/L (21-32); COCKROFT - GAULT 137.28; CREATININE 0.9 mg/dL (0.7-1.3); GLUCOSE,RANDOM 137 mg/dL (74-106); MAGNESIUM 2.3 mg/dL (1.8-2.4); SGOT/AST 37 U/L (15-37); SGPT/ALT 35 U/L (12-78); TOT PROT 6.3 g/dl (6.4-8.2)
--- NOTE | 2016-10-15 07:33 | PN ---
Progress Note (short form) - Note Progress Note: ID Appears stable Zosyn resumed now since 7th day 5 Rx Selected Entries 10/15/16 10/15/16 05:00 07:28 Temperature 98.9 F Pulse Rate 130 H Respiratory 24 Rate Blood Pressure 122/82 Fraction of 50 Inspired Oxygen (FIO2) Weight 251 lb 7.122 oz Lung Diminished BS bilat Cor S1 S2 RR Abd Soft nontender Ext Venous stasis changes Microbiology 10/13/16 12:00 Sputum - Endotrachea Suction/Ventilator Gram Stain - Final 10/11/16 13:45 Urine - Urine Hilario Urine Culture - Final NO GROWTH OBTAINED 10/10/16 18:41 Sputum - Endotrachea Suction/Ventilator Gram Stain - Final 10/10/16 18:41 Sputum - Endotrachea Suction/Ventilator Sputum Culture - Final 10/13/16 12:00 Sputum - Endotrachea Suction/Ventilator Sputum Culture - Preliminary NORMAL RESPIRATORY [place]TON 10/10/16 17:30 Blood - Peripheral Venous Blood Culture - Preliminary NO GROWTH OBTAINED AFTER 96 HOURS, INCUBATION TO CONTINUE FOR 1 DAYS. Laboratory Tests 10/12/16 10/13/16 10/14/16 06:00 09:11 05:45 WBC Hgb Plt Count ESR 21 H ABG pO2 at Pt Temp Oxygen Flow Rate BUN Creatinine Creat Clearance w eGFR Random Vancomycin 11.867 RPR Titer HIV 1&2 Antibody Screen Negative HIV P24 Antigen Negative 10/14/16 10/14/16 10/15/16 06:05 17:40 05:25 WBC 9.3 Hgb 18.1 H Plt Count 164 D ESR ABG pO2 at Pt Temp 67.8 L D Oxygen Flow Rate 50% BUN Creatinine Creat Clearance w eGFR Random Vancomycin RPR Titer Nonreactive HIV 1&2 Antibody Screen HIV P24 Antigen 10/15/16 05:25 WBC Hgb Plt Count ESR ABG pO2 at Pt Temp Oxygen Flow Rate BUN 35 H D Creatinine 0.9 Creat Clearance w eGFR > 60 Random Vancomycin RPR Titer HIV 1&2 Antibody Screen HIV P24 Antigen Assessment Respiratory failure Empiric therapy PNA ( Seen CT) Atrial fibrillation Plan Now day 5 antibiotics will complete shiraz Has had intermittent low grade fevers Tucker MCDANIEL
[2016-10-15] MEDS: AMINO ACIDS/PROTEIN HYDROLYS 30 ML LIQUID.PKT PO SCH ×2 (08:18→17:19)
[2016-10-15] MEDS: POLYETHYLENE GLYCOL 3350 119 GM BTL PO SCH ×2 (09:03→21:04)
[2016-10-15] MEDS: APIXABAN 5 MG TABLET PO SCH ×2 (09:03→21:03)
[2016-10-15] MEDS: CARVEDILOL 6.25 MG TABLET (FP) NGT SCH (09:03)
[2016-10-15] MEDS: NAPH,MB-DB/K PH,MBDB POWDER PACKET PO SCH ×2 (09:04→21:04)
[2016-10-15] MEDS: POTASSIUM CHLORIDE ORAL LIQUID 20 MEQ/15 ML PO SCH (09:04)
[2016-10-15] MEDS: PANTOPRAZOLE SODIUM 100 ML IVPB SCH (09:04)
[2016-10-15] MEDS: CHLORHEXIDINE GLUCONATE 0.12% 15ML CUP MM SCH (09:04)
--- NOTE | 2016-10-15 10:38 | CONSULT ---
Admitting History and Physical - Primary Care Physician PCP: Falguni Paul - Admission History of Present Illness: Per EMR: HISTORY OF PRESENT ILLNESS: "Patient came to ed with a compain of incraesing swelling in legs, scrotum and lower abdominal wall with incraesing shortness of breath. Patient was diagnosed with acute excerbration of CHF with atrial fibrillation. Patient was intubated in ed as patient was hypoxic, cynotic and not responding." Intubated 10/05- 10/14. o2 sat 93, desaturates to 80's when removed, 86 with NC. History Source: Medical Record Limitations to Obtaining History: Clinical Condition - Smoking History Smoking history: Current every day smoker Have you smoked in the past 12 months: Yes Aproximately how many cigarettes per day: 20 - Alcohol/Substance Use Hx Alcohol Use: No History - Admission Reason For Visit: AFIB, CHF,LYMPHEDOMA LOWER EXTREMITY - Diagnostics X-ray: Report Reviewed - General Mental Status: Awake and Alert, Able to Follow Commands, Forgetful Attention: Distractible, Mild Impairment Ability to Follow Directions: Good Head/Neck Control: Fair - Hearing Hearing: Normal Speech Evaluation - Communication Primary Language: MALTESE Communication: Yes: Simple Responses - Speech Characteristics Voice Loudness: Normal Voice Pitch: Yes: Normal Voice Phonatory-based Quality: Yes: Hoarse (speech initially strong and euphonic , with increasing dysphonia and weakness after a few words) Speech Pattern: Impaired Speech Clarity: < 75% Articulation: Yes: Imprecise (mild) Voice, Other Observations: Yes: Progressively Weak Voice, Inadequate Breath Support - Language/Auditory Comprehension Follows: Yes: 1 Stage Simple Commands - Language/Verbal Expression Able to Communicate Wants and Needs: Yes: WNL (simple) - Swallow Evaluation/Bedside Assessment Current Nutritional Intake: NPO Dentition: Yes: Adequate Facial Symmetry at Rest: Symmetrical Facial Symmetry on Retraction: Symmetrical Against Resistance Opening: Weak Against Resistance Closing: Weak Pucker Lips: Normal Smile: Normal Lingual Movement: Normal, Symmetric Lingual Speed of Movement: Reduced Lingual Movement Strgth Against Opposition: Reduced Lingual Movement Characteristics: Normal Laryngeal Elevation: Impaired Laryngeal Movement: Reduced Excursion, Labored,delay initiation, Reduced Velocity Labial Seal: WFL Oral Prep Time: Increased (pt masticates applesauce) A-P Transit: Impaired Timing of Swallow: Delayed Coughing/Throat Clear: Yes (repeatedly with trials of applesauce, and more so with sip water) Recommendations - Speech Evaluation, Impression/Plan Impression: Responsive cough repeatedly with trials of applesauce, and more so with careful sip of water. Voice eupphonic/with insufficient resp support for speech and dysphonia after a few words at end of phrase - Dysphagia Impressions/Plan Swallowing Skills: Impaired Dysphagia Impressions: Ongoing Evaluation, Suspect Aspiration *Silent aspiration: cannot be R/O at bedside Recommendations: Modified Barium Swallow (when swallow clinically improves.), Other - Recommendations Diet Consistency: NPO, Other (including medication) Liquids: NPO
[2016-10-15] MEDS ORDERED: POTASSIUM PHOSPHATE 40 MM in DEXTROSE 5%-WATER - 500 ML IVPB ONE (11:06)
[2016-10-15] MEDS ORDERED: FUROSEMIDE 40 MG/4 ML INJECTABLE VIAL IVPUSH ONE (11:18)
[2016-10-15] MEDS ORDERED: SODIUM CHLORIDE NASAL SPRAY 44 ML BOTTLE NS PRN (11:18)
--- NOTE | 2016-10-15 11:42 | PN ---
Physical Exam: SUBJECTIVE: Patient seen and examined Patient resting in bed, NAD. afebrile and hemodynamically stable. extubated yesterday, now sattign 91% on ventimask. given one dose of lasix 40 yesterday, negative fluid balance of 2.5 liters over 24 hr, dark urine, appears dry. A fib rate 140's, coreg increased to 6.25 yesterday. Denies chest pain, sob, palpitations, abd pain. Is currently aaox3 but forgetful OBJECTIVE: Vital Signs Period Temp Pulse Resp BP Sys/Clements Pulse Ox Last 24 Hr 97.1 F-99.9 F 103-147 14-26 80-129/60-86 93-95 GENERAL: aaox3, nad HEAD: Normal with no signs of trauma, obese EYES: [place] EOMA EARS, NOSE, THROAT: Moist mucous membranes. NECK: supple no JVD LUNGS: reduced breath sounds at bases HEART: tachy, irregular ABDOMEN: smaller, softer, 1+ edema, moderately erythematous, reduced bowel sounds MUSCULOSKELETAL: No bony deformities UPPER EXTREMITIES: 2+ pulses, mild peripheral edema. LOWER EXTREMITIES: 1+ pulses, 1+ pitting edema much improved, skin now wrinkled , chronic stasis dermatitis b/l NEUROLOGICAL: craneal nerves grossly intact PSYCHIATRIC: calm SKIN: Warm, dry Laboratory Results - last 24 hr 10/14/16 10/15/16 10/15/16 17:40 05:25 05:25 WBC 9.3 RBC 5.63 H Hgb 18.1 H Hct 55.0 H MCV 97.7 H MCHC 32.8 RDW 15.3 Plt Count 164 D MPV 10.2 Neutrophils % 73.2 Lymphocytes % 8.1 Monocytes % 15.4 H Eosinophils % 2.0 Basophils % 1.3 Puncture Site Right radial ABG pH 7.44 ABG pCO2 at Pt Temp 67.0 H* ABG pO2 at Pt Temp 67.8 L D ABG HCO3 44.7 H* ABG O2 Sat (Measured) 94.0 ABG O2 Content 22.8 H ABG Base Excess 15.8 H* Ye Test Positive O2 Delivery Device Venti mask Oxygen Flow Rate 50% PEEP 0.0 Sodium 145 Potassium 3.5 Chloride 94 L Carbon Dioxide 41 H Anion Gap 10 BUN 35 H D Creatinine 0.9 Creat Clearance w eGFR > 60 Random Glucose 137 H Calcium 8.8 Phosphorus 2.0 L D Magnesium 2.3 Total Bilirubin 2.7 H D AST 37 ALT 35 Alkaline Phosphatase 85 Total Protein 6.3 L Albumin 2.8 L Active Medications Generic Name Dose Route Start Last Admin Trade Name Freq PRN Reason Stop Dose Admin Acetaminophen 650 mg 10/10/16 15:28 10/13/16 22:53 Tylenol - PO 650 mg Q6H PRN Administration FEVER OR PAIN Albuterol/Ipratropium 1 amp 10/14/16 13:30 10/15/16 07:22 Duoneb - NEB Not Given QIDR LYNETTE Amino Acids 30 ml 10/10/16 17:30 10/15/16 08:18 Prosource No Carb Liquid Pkt PO Not Given BID@0800,1730 [facility] Apixaban 5 mg 10/09/16 10:30 10/15/16 09:03 Eliquis - PO 5 mg BID LYNETTE Administration Carvedilol 6.25 mg 10/14/16 22:00 10/15/16 09:03 Coreg - NGT 6.25 mg BID LYNETTE Administration Chlorhexidine Gluconate 1 applic 10/05/16 22:00 10/14/16 21:34 Hibiclens For Decolonization - TP Not Given HS LYNETTE Chlorhexidine Gluconate 15 ml 10/06/16 10:00 10/15/16 09:04 Peridex - MM Not Given BID [facility] Potassium Phosphate 40 mm/ 513.3333 mls @ 85.556 mls/hr 10/15/16 11:06 Dextrose IVPB 10/15/16 17:05 ONCE ONE Pantoprazole Sodium 40 mg 10/16/16 10:00 Protonix - PO DAILY [facility] Piperacillin Sod/Tazobactam Sod 4.5 gm 10/14/16 11:00 10/15/16 09:05 Zosyn 4.5gm Ivpb (Pre-Docked) IVPB 4.5 gm Q8H-IV LYNETTE Administration Polyethylene Glycol 17 gm 10/09/16 22:00 10/15/16 09:03 Miralax (For Daily Use) - PO Not Given BID [facility] Potassium Chloride 40 meq 10/08/16 10:00 10/15/16 09:04 Potassium Chloride Oral Liquid PO Not Given DAILY [facility] Potassium Phos/Sodium Phos 1 packet 10/15/16 10:00 10/15/16 09:04 Phos-Nak Packet - PO 10/15/16 22:01 Not Given BID LYNETTE Sodium Chloride 2 spray 10/15/16 11:18 [place] Nasal [place] - NS TID PRN NASAL CONGESTION ASSESSMENT/PLAN: This is a 60 yo M every day smoker with PMH of HTN, GERD, and obesity who presents due to testicular swelling x 1 W and worsening SOB. Acute decompensated CHF -extubated yesterday -NYHA class III-IV -was in severe fluid overload, anasarca -TTE mild/mod reduced EF, mild pulm HTN, RVP 30-40, global mild/mod LV hypokinesis worse than 05/06/16 -CXR AM improved r base s/p one time lasix 40 iv -cardio on case -increase coreg to 12.5, watch BP -start areli tomorrow -strict I and O -daily weight -am xray -tele monitoring a fib -icu monitoring Fever -CT chest: goiter, RUL cystic lesion, bibasilar effusions and consolidation -sputum, blood cultures negative -ID consult: finished abx -remove central line out Hypotension -resolved A fib -eliquis Hyperthyroid -incidental, repeat labs wnl MONIE -creat 0.9 at baseline Acute hypoxic respiratory failure -ventimask sat 92% on 15 L, monitor FEN -no IVF -replete lytes -Promote tube feed PPX: PPI, noac Dispo: ICU Problem List - Problems (1) Acute respiratory failure requiring reintubation Code(s): J96.00 - ACUTE RESPIRATORY FAILURE, UNSP W HYPOXIA OR HYPERCAPNIA (2) Atrial fibrillation, new onset Code(s): I48.91 - UNSPECIFIED ATRIAL FIBRILLATION (3) Congestive heart failure (CHF) Code(s): I50.9 - HEART FAILURE, UNSPECIFIED Qualifiers: Congestive heart failure type: combined Congestive heart failure chronicity: acute Qualified Code(s): I50.41 - Acute combined systolic ( congestive) and diastolic (congestive) heart failure (4) Edema of scrotum Code(s): N50.89 - OTHER SPECIFIED DISORDERS OF THE MALE GENITAL ORGANS (5) Lymphedema of both lower extremities Code(s): I89.0 - LYMPHEDEMA, NOT ELSEWHERE CLASSIFIED (6) Morbid obesity Code(s): E66.01 - MORBID (SEVERE) OBESITY DUE TO EXCESS CALORIES (7) Renal insufficiency Code(s): N28.9 - DISORDER OF KIDNEY AND URETER, UNSPECIFIED (8) Sleep apnea Code(s): G47.30 - SLEEP APNEA, UNSPECIFIED Qualifiers: Sleep apnea type: unspecified type Qualified Code(s): G47.30 - Sleep apnea, unspecified (9) Acute kidney injury Code(s): N17.9 - ACUTE KIDNEY FAILURE, UNSPECIFIED (10) Anasarca Code(s): R60.1 - GENERALIZED EDEMA Visit type - Emergency Visit Emergency Visit: Yes ED Registration Date: 10/05/16 Care time: The patient presented to the Emergency Department on the above date and was hospitalized for further evaluation of their emergent condition. - New Patient This patient is new to me today: No - Critical Care Critical Care patient: Yes Total Critical Care Time (in minutes): 46 Critical Care Statement: The care of this patient involved high complexity decision making to prevent further life threatening deterioration of the patient 's condition and/or to evalute & treat vital organ system(s) failure or risk of failure. - Discharge Referral Referred to [facility] Med P.C.: No
--- NOTE | 2016-10-15 11:56 | PN ---
Teaching Attending Note Name of Resident: Nick Kang ATTENDING PHYSICIAN STATEMENT I saw and evaluated the patient. I reviewed the resident's note and discussed the case with the resident. I agree with the resident's findings and plan as documented. SUBJECTIVE: Pt seen and examined in the ICU. Extubated yesterday without incident. Denies shortness of breath. No fevers recorded. OBJECTIVE: Last Vital Signs Temp Pulse Resp BP Pulse Ox 97.1 F L 135 H 24 122/86 95 10/15/16 10:00 10/15/16 10:00 10/15/16 10:00 10/15/16 10:00 10/15/16 08:00 Intake & Output 10/12/16 10/13/16 10/14/16 10/15/16 23:59 23:59 23:59 23:59 Intake Total 3044.3 2376.7 1968.2 200 Output Total 3800 3200 3700 900 Balance -755.7 -823.3 -1731.8 -700 Weight 258 lb 8 oz 252 lb 6.4 oz 250 lb 7.122 oz 251 lb 7.122 oz Gen: awake, alert but groggy Heart: tachycardic, irregular Lung: scattered rhonchi Abd: soft, nontender Ext: decreasing edema CBC, BMP 10/15/16 05:25 10/15/16 05:25 Active Medications Acetaminophen (Tylenol -) 650 mg PO Q6H PRN PRN Reason: FEVER OR PAIN Last Admin: 10/13/16 22:53 Dose: 650 mg Albuterol/Ipratropium (Duoneb -) 1 amp NEB QIDR [facility] Last Admin: 10/15/16 07:22 Dose: Not Given Amino Acids (Prosource No Carb Liquid Pkt) 30 ml PO BID@0800,1730 [facility] Last Admin: 10/15/16 08:18 Dose: Not Given Apixaban (Eliquis -) 5 mg PO BID [facility] Last Admin: 10/15/16 09:03 Dose: 5 mg Carvedilol (Coreg -) 6.25 mg NGT BID [facility] Last Admin: 10/15/16 09:03 Dose: 6.25 mg Chlorhexidine Gluconate (Hibiclens For Decolonization -) 1 applic TP HS [facility] Last Admin: 10/14/16 21:34 Dose: Not Given Chlorhexidine Gluconate (Peridex -) 15 ml MM BID [facility] Last Admin: 10/15/16 09:04 Dose: Not Given Potassium Phosphate 40 mm/ (Dextrose) 513.3333 mls @ 85.556 mls/hr IVPB ONCE ONE Stop: 10/15/16 17:05 Pantoprazole Sodium (Protonix -) 40 mg PO DAILY [facility] Piperacillin Sod/Tazobactam Sod (Zosyn 4.5gm Ivpb (Pre-Docked)) 4.5 gm IVPB Q8H -IV LYNETTE Last Admin: 10/15/16 09:05 Dose: 4.5 gm Polyethylene Glycol (Miralax (For Daily Use) -) 17 gm PO BID [facility] Last Admin: 10/15/16 09:03 Dose: Not Given Potassium Chloride (Potassium Chloride Oral Liquid) 40 meq PO DAILY [facility] Last Admin: 10/15/16 09:04 Dose: Not Given Potassium Phos/Sodium Phos (Phos-Nak Packet -) 1 packet PO BID [facility] Stop: 10/15/16 22:01 Last Admin: 10/15/16 09:04 Dose: Not Given Sodium Chloride ([place] Nasal [place] -) 2 spray NS TID PRN PRN Reason: NASAL CONGESTION ASSESSMENT AND PLAN: Acute Hypoxic and Hypercapneic Respiratory Failure Acute on ?Chronic LV Systolic Heart Failure Pulmonary HTN Volume Overload Atrial Fibrillation with RVR Acute Kidney Injury Hyperthyroidism Fevers - r/o Pneumonia - complete antibiotic course today - lasix 40mg x 1 today - monitor urine output, creatinine - daily weights, I/Os - rate control per cardiology - continue anticoagulation - inhaled bronchodilators - O2 to keep SpO2 >90% - PO as tolerated - aspiration precautions - DVT/GI prophylaxis - continue ICU monitoring critical care time spent reviewing chart, evaluating patient and formulating plan 35 min
--- NOTE | 2016-10-15 11:58 | PN ---
Progress Note, Physician History of Present Illness: Pt seen and examined at bedside. He is now extubated. He is awake and answering questions. - Current Medication List Current Medications: Active Medications Acetaminophen (Tylenol -) 650 mg PO Q6H PRN PRN Reason: FEVER OR PAIN Last Admin: 10/13/16 22:53 Dose: 650 mg Albuterol/Ipratropium (Duoneb -) 1 amp NEB QIDR [facility] Last Admin: 10/15/16 07:22 Dose: Not Given Amino Acids (Prosource No Carb Liquid Pkt) 30 ml PO BID@0800,1730 [facility] Last Admin: 10/15/16 08:18 Dose: Not Given Apixaban (Eliquis -) 5 mg PO BID [facility] Last Admin: 10/15/16 09:03 Dose: 5 mg Carvedilol (Coreg -) 6.25 mg NGT BID [facility] Last Admin: 10/15/16 09:03 Dose: 6.25 mg Chlorhexidine Gluconate (Hibiclens For Decolonization -) 1 applic TP HS [facility] Last Admin: 10/14/16 21:34 Dose: Not Given Chlorhexidine Gluconate (Peridex -) 15 ml MM BID [facility] Last Admin: 10/15/16 09:04 Dose: Not Given Potassium Phosphate 40 mm/ (Dextrose) 513.3333 mls @ 85.556 mls/hr IVPB ONCE ONE Stop: 10/15/16 17:05 Pantoprazole Sodium (Protonix -) 40 mg PO DAILY [facility] Piperacillin Sod/Tazobactam Sod (Zosyn 4.5gm Ivpb (Pre-Docked)) 4.5 gm IVPB Q8H -IV [facility] Last Admin: 10/15/16 09:05 Dose: 4.5 gm Polyethylene Glycol (Miralax (For Daily Use) -) 17 gm PO BID [facility] Last Admin: 10/15/16 09:03 Dose: Not Given Potassium Chloride (Potassium Chloride Oral Liquid) 40 meq PO DAILY [facility] Last Admin: 10/15/16 09:04 Dose: Not Given Potassium Phos/Sodium Phos (Phos-Nak Packet -) 1 packet PO BID [facility] Stop: 10/15/16 22:01 Last Admin: 10/15/16 09:04 Dose: Not Given Sodium Chloride ([place] Nasal [place] -) 2 spray NS TID PRN PRN Reason: NASAL CONGESTION - Objective Vital Signs: Vital Signs Temperature 97.1 F L 10/15/16 10:00 Pulse Rate 135 H 10/15/16 10:00 Respiratory Rate 24 10/15/16 10:00 Blood Pressure 122/86 10/15/16 10:00 O2 Sat by Pulse Oximetry (%) 95 10/15/16 08:00 Constitutional: Yes: Calm Eyes: Yes: Conjunctiva Clear HENT: Yes: Atraumatic Cardiovascular: Yes: S1, S2 Respiratory: Yes: On Venti-Mask, Rhonchi Gastrointestinal: Yes: Soft, Abdomen, Obese Genitourinary: Yes: Hilario Present Musculoskeletal: Yes: Muscle Weakness Edema: Yes Edema: LLE: 1+, RLE: 1+ Integumentary: Yes: Venous Stasis Changes Neurological: Yes: Oriented Labs: CBC, BMP 10/15/16 05:25 10/15/16 05:25 INR, PTT INR 1.32 (0.82-1.09) H 10/13/16 05:35 - ....Imaging Chest X-ray: Report Reviewed Problem List - Problems (1) Acute kidney injury Code(s): N17.9 - ACUTE KIDNEY FAILURE, UNSPECIFIED (2) Anasarca Code(s): R60.1 - GENERALIZED EDEMA (3) Congestive heart failure (CHF) Code(s): I50.9 - HEART FAILURE, UNSPECIFIED Qualifiers: Qualified Code(s): I50.41 - Acute combined systolic (congestive) and diastolic (congestive) heart failure (4) Morbid obesity Code(s): E66.01 - MORBID (SEVERE) OBESITY DUE TO EXCESS CALORIES (5) Renal insufficiency Code(s): N28.9 - DISORDER OF KIDNEY AND URETER, UNSPECIFIED Assessment/Plan Current Medications Generic Name Dose Route Start Last Admin Trade Name Freq PRN Reason Stop Dose Admin Acetaminophen 650 mg 10/10/16 15:28 10/13/16 22:53 Tylenol - PO 650 mg Q6H PRN Administration FEVER OR PAIN Albuterol/Ipratropium 1 amp 10/14/16 13:30 10/15/16 07:22 Duoneb - NEB Not Given QIDR LYNETTE Amino Acids 30 ml 10/10/16 17:30 10/15/16 08:18 Prosource No Carb Liquid Pkt PO Not Given BID@0800,1730 LYNETTE Apixaban 5 mg 10/09/16 10:30 10/15/16 09:03 Eliquis - PO 5 mg BID LYNETTE Administration Carvedilol 6.25 mg 10/14/16 22:00 10/15/16 09:03 Coreg - NGT 6.25 mg BID LYNETTE Administration Chlorhexidine Gluconate 1 applic 10/05/16 22:00 10/14/16 21:34 Hibiclens For Decolonization - TP Not Given HS LYNETTE Chlorhexidine Gluconate 15 ml 10/06/16 10:00 10/15/16 09:04 Peridex - MM Not Given BID LYNETTE Potassium Phosphate 40 mm/ 513.3333 mls @ 85.556 mls/hr 10/15/16 11:06 Dextrose IVPB 10/15/16 17:05 ONCE ONE Pantoprazole Sodium 40 mg 10/16/16 10:00 Protonix - PO DAILY LYNETTE Piperacillin Sod/Tazobactam Sod 4.5 gm 10/14/16 11:00 10/15/16 09:05 Zosyn 4.5gm Ivpb (Pre-Docked) IVPB 4.5 gm Q8H-IV LYNETTE Administration Polyethylene Glycol 17 gm 10/09/16 22:00 10/15/16 09:03 Miralax (For Daily Use) - PO Not Given BID LYNETTE Potassium Chloride 40 meq 10/08/16 10:00 10/15/16 09:04 Potassium Chloride Oral Liquid PO Not Given DAILY LYNETTE Potassium Phos/Sodium Phos 1 packet 10/15/16 10:00 10/15/16 09:04 Phos-Nak Packet - PO 10/15/16 22:01 Not Given BID LYNETTE Sodium Chloride 2 spray 10/15/16 11:18 [place] Nasal [place] - NS TID PRN NASAL CONGESTION Impression 1. Azotemia 2. CHF acute 3. acute resp failure requiring intubation 4. new onset atrial fibrillation 5. hx of htn 6. obesity 7. chronic smoker 8. hypokalemia Plan - consider restarting diuretics - monitor renal function - monitor pulse ox - speech and swallow eval - discussed with ICU team - monitor urine ouput - will follow Dr Delacruz
--- NOTE | 2016-10-15 12:13 | PN ---
Progress Note, Physician History of Present Illness: Extubated on VM, remains in rapid afib, diuresed off 13 lbs. - Current Medication List Current Medications: Active Medications Acetaminophen (Tylenol -) 650 mg PO Q6H PRN PRN Reason: FEVER OR PAIN Last Admin: 10/13/16 22:53 Dose: 650 mg Albuterol/Ipratropium (Duoneb -) 1 amp NEB QIDR ON [facility] Last Admin: 10/15/16 07:22 Dose: Not Given Amino Acids (Prosource No Carb Liquid Pkt) 30 ml PO BID@0800,1730 ON [facility] Last Admin: 10/15/16 08:18 Dose: Not Given Apixaban (Eliquis -) 5 mg PO BID ON [facility] Last Admin: 10/15/16 09:03 Dose: 5 mg Carvedilol (Coreg -) 6.25 mg NGT BID ON [facility] Last Admin: 10/15/16 09:03 Dose: 6.25 mg Chlorhexidine Gluconate (Hibiclens For Decolonization -) 1 applic TP HS ON [facility] Last Admin: 10/14/16 21:34 Dose: Not Given Chlorhexidine Gluconate (Peridex -) 15 ml MM BID [facility] Last Admin: 10/15/16 09:04 Dose: Not Given Potassium Phosphate 40 mm/ (Dextrose) 513.3333 mls @ 85.556 mls/hr IVPB ONCE ONE Stop: 10/15/16 17:05 Pantoprazole Sodium (Protonix -) 40 mg PO DAILY ON [facility] Piperacillin Sod/Tazobactam Sod (Zosyn 4.5gm Ivpb (Pre-Docked)) 4.5 gm IVPB Q8H -IV ON [facility] Last Admin: 10/15/16 09:05 Dose: 4.5 gm Polyethylene Glycol (Miralax (For Daily Use) -) 17 gm PO BID [facility] Last Admin: 10/15/16 09:03 Dose: Not Given Potassium Chloride (Potassium Chloride Oral Liquid) 40 meq PO DAILY [facility] Last Admin: 10/15/16 09:04 Dose: Not Given Potassium Phos/Sodium Phos (Phos-Nak Packet -) 1 packet PO BID [facility] Stop: 10/15/16 22:01 Last Admin: 10/15/16 09:04 Dose: Not Given Sodium Chloride ([place] Nasal [place] -) 2 spray NS TID PRN PRN Reason: NASAL CONGESTION - Objective Vital Signs: Vital Signs Temperature 97.5 F L 10/15/16 12:00 Pulse Rate 123 H 10/15/16 12:00 Respiratory Rate 22 10/15/16 12:00 Blood Pressure 116/76 10/15/16 12:00 O2 Sat by Pulse Oximetry (%) 95 10/15/16 08:00 Constitutional: Yes: No Distress, Calm Neck: Yes: Supple Cardiovascular: Yes: Tachycardia, Pulse Irregular Respiratory: Yes: Regular, Diminished, On Venti-Mask Gastrointestinal: Yes: Normal Bowel Sounds, Soft, Abdomen, Obese Edema: Yes Edema: LLE: Trace, RLE: Trace Labs: CBC, BMP 10/15/16 05:25 10/15/16 05:25 INR, PTT INR 1.32 (0.82-1.09) H 10/13/16 05:35 - ....Imaging Chest X-ray: Report Reviewed (Left base infiltrate vs atx) Problem List - Problems (1) Atrial fibrillation, new onset Code(s): I48.91 - UNSPECIFIED ATRIAL FIBRILLATION (2) Sleep apnea Code(s): G47.30 - SLEEP APNEA, UNSPECIFIED Qualifiers: Sleep apnea type: unspecified type Qualified Code(s): G47.30 - Sleep apnea, unspecified (3) Acute on chronic diastolic (congestive) heart failure Code(s): I50.33 - ACUTE ON CHRONIC DIASTOLIC (CONGESTIVE) HEART FAILURE (4) Acute hypercapnic respiratory failure Code(s): J96.02 - ACUTE RESPIRATORY FAILURE WITH HYPERCAPNIA Assessment/Plan Echocardiography revealed mild to moderate LV systolic dysfunction, moderate TR , RVSP of 30-40 mmHg 1. Acute class III-IV NYHA classification LV failure related to systolic/ diastolic LV dysfunction with pulm HTN resolving, pre-renal azotemia 2. Unclear if ischemic dilated cardiomyopathy vs. ideopathic cardiomyopathy vs. tachycardia induced cardiomyopathy (atrial fibrillation) 3. Post Acute Hypoxic and Hypercapneic Respiratory Failure 4. Persistent atrial fibrillation with periods of rapid ventricular response, [id number] score of 2 5. HTN 6. Hypercholesterolemia 7. Acute renal insufficiency 8. Polycythmia 9. Thrombocytopenia 10. Obesity suspect OSAS PLAN: 1. Diuresis as needed with monitor diuretic response, renal fxn and electrolytes 2. Increase Coreg 12.5 bid and add Cardizem 30 qid as hemodynamics permit for rate-control 3. Complete empiric abx course 4. Continue Eliquis 5 bid 5. Ideally should be on ACEI or ARBS once renal fxn stable 6. BD, O2 to keep SpO2 >90%, GI prophylaxis, aspiration precautions, OOB to chair
[2016-10-15] MEDS ORDERED: CARVEDILOL 12.5 MG TABLET (FP) NGT SCH (12:23)
[2016-10-15] MEDS ORDERED: dilTIAZem HCL 30 MG TABLET (FP) PO ONE (12:26)
--- NOTE | 2016-10-15 13:09 | PN ---
Teaching Attending Note Name of Resident: Hillary Reyes ATTENDING PHYSICIAN STATEMENT I saw and evaluated the patient. I reviewed the resident's note and discussed the case with the resident. I agree with the resident's findings and plan as documented. Patient in ICU on a venti mask, feel comfortable. No fever ro chills. Patient is afebrile and hemodynamically stable. extubated yesterday, now sattign 91% on ventimask. Vital Signs Temperature 97.5 F L 10/15/16 12:00 Pulse Rate 123 H 10/15/16 12:00 Respiratory Rate 22 10/15/16 12:00 Blood Pressure 116/76 10/15/16 12:00 O2 Sat by Pulse Oximetry (%) 95 10/15/16 08:00 CBCD WBC 9.3 K/mm3 (4.0-10.0) 10/15/16 05:25 RBC 5.63 M/mm3 (4.00-5.60) H 10/15/16 05:25 Hgb 18.1 GM/dL (11.7-16.9) H 10/15/16 05:25 Hct 55.0 % (35.4-49) H 10/15/16 05:25 MCV 97.7 fl (80-96) H 10/15/16 05:25 MCHC 32.8 g/dl (32.0-35.9) 10/15/16 05:25 RDW 15.3 % (11.9-15.9) 10/15/16 05:25 Plt Count 164 K/MM3 (134-434) D 10/15/16 05:25 MPV 10.2 fl (7.5-11.1) 10/15/16 05:25 CMP Sodium 145 mmol/L (136-145) 10/15/16 05:25 Potassium 3.5 mmol/L (3.5-5.1) 10/15/16 05:25 Chloride 94 mmol/L (98-107) L 10/15/16 05:25 Carbon Dioxide 41 mmol/L (21-32) H 10/15/16 05:25 Anion Gap 10 (8-16) 10/15/16 05:25 BUN 35 mg/dL (7-18) H D 10/15/16 05:25 Creatinine 0.9 mg/dL (0.7-1.3) 10/15/16 05:25 Creat Clearance w eGFR > 60 (>60) 10/15/16 05:25 Random Glucose 137 mg/dL (74-106) H 10/15/16 05:25 Calcium 8.8 mg/dL (8.5-10.1) 10/15/16 05:25 Total Bilirubin 2.7 mg/dL (0.2-1.0) H D 10/15/16 05:25 AST 37 U/L (15-37) 10/15/16 05:25 ALT 35 U/L (12-78) 10/15/16 05:25 Alkaline Phosphatase 85 U/L (45-117) 10/15/16 05:25 Total Protein 6.3 g/dl (6.4-8.2) L 10/15/16 05:25 Albumin 2.8 g/dl (3.4-5.0) L 10/15/16 05:25 CARDIAC ENZYMES Creatine Kinase 493 IU/L (39-308) H D 10/07/16 05:55 Troponin I < 0.02 ng/ml (0.00-0.05) 10/07/16 05:55 Current Medications Generic Name Dose Route Start Last Admin Trade Name Freq PRN Reason Stop Dose Admin Acetaminophen 650 mg 10/10/16 15:28 10/13/16 22:53 Tylenol - PO 650 mg Q6H PRN Administration FEVER OR PAIN Albuterol/Ipratropium 1 amp 10/14/16 13:30 10/15/16 12:47 Duoneb - NEB 1 amp QIDR LYNETTE Administration Amino Acids 30 ml 10/10/16 17:30 10/15/16 08:18 Prosource No Carb Liquid Pkt PO Not Given BID@0800,1730 LYNETTE Apixaban 5 mg 10/09/16 10:30 10/15/16 09:03 Eliquis - PO 5 mg BID LYNETTE Administration Carvedilol 12.5 mg 10/15/16 12:23 Coreg - NGT BID LYNETTE Chlorhexidine Gluconate 1 applic 10/05/16 22:00 10/14/16 21:34 Hibiclens For Decolonization - TP Not Given HS LYNETTE Chlorhexidine Gluconate 15 ml 10/06/16 10:00 10/15/16 09:04 Peridex - MM Not Given BID LYNETTE Diltiazem HCl 30 mg 10/15/16 18:00 Cardizem - PO QID [facility] Potassium Phosphate 40 mm/ 513.3333 mls @ 85.556 mls/hr 10/15/16 11:06 12:23 Dextrose IVPB 10/15/16 17:05 85.556 mls/hr ONCE ONE Administration Pantoprazole Sodium 40 mg 10/16/16 10:00 Protonix - PO DAILY LYNETTE Piperacillin Sod/Tazobactam Sod 4.5 gm 10/14/16 11:00 10/15/16 09:05 Zosyn 4.5gm Ivpb (Pre-Docked) IVPB 4.5 gm Q8H-IV LYNETTE Administration Polyethylene Glycol 17 gm 10/09/16 22:00 10/15/16 09:03 Miralax (For Daily Use) - PO Not Given BID [facility] Potassium Chloride 40 meq 10/08/16 10:00 10/15/16 09:04 Potassium Chloride Oral Liquid PO Not Given DAILY [facility] Potassium Phos/Sodium Phos 1 packet 10/15/16 10:00 10/15/16 09:04 Phos-Nak Packet - PO 10/15/16 22:01 Not Given BID [facility] Sodium Chloride 2 spray 10/15/16 11:18 10/15/16 12:27 [place] Nasal [place] - NS 2 sprays TID PRN Administration NASAL CONGESTION Home Medications Medication Instructions Recorded Bystolic 10 mg PO DAILY 05/01/16 Hydrochlorothiazide 12.5 mg PO DAILY 05/01/16 Pantoprazole Sodium [Protonix -] 1 tab PO DAILY 05/19/16 Amlodipine/Valsartan [[place] 1 tab PO DAILY 10/05/16 5-160 mg Tablet] Ascorbate Calcium [Vitamin C] 1,000 mg PO DAILY 10/05/16 Aspirin [ASA -] 81 mg PO DAILY 10/05/16 [place]-3/Dha/Epa/Fish Oil [[place] 3 350 mg PO DAILY 10/05/16 500 Softgel] Sulfamethoxazole/Trimethoprim 1 each PO BID 10/05/16 [Bactrim Ds Tablet] CVS: Irregularly-irreg. with rate of 124 ASSESSMENT AND PLAN: 60 y/o man with ho GERD, HTN, previously mildly reduced EF who presented with scrotal swelling and was diagnosed with acute hypoxic resp failure due to acute CHF exacerbation #Afib with RVR on Eliquis continue and on Coreg now and cardizem 30mg q6h cardio consult appreciated # Acute hypoxic hypercapnic respiratory failure: s/p intubation and extubation now on VM # Acute CHF exacerbation ;Lasix is on hold now #s/p Cardiogenic shock: off pressors now # MONIE : due to pre-renal Azotemia from decreased PSYCHOLOGISTS ; monitor off diuresis # Electrolytes abn :replete as needed DVT px:Eliquis
--- NOTE | 2016-10-15 13:48 | PN ---
Physical Exam: SUBJECTIVE: Patient seen and examined patient lying comfortably in bed. denies chest pain HR> 130 swelling has decreased on legs, abdomen and scrotum Patient is conscious. no fever recorded OBJECTIVE: Vital Signs Period Temp Pulse Resp BP Sys/Clements Pulse Ox Last 24 Hr 97.1 F-99.9 F 121-147 18-26 100-129/60-86 93-95 GENERAL: awake, alert on ventuary 50 % HEAD: Normal with no signs of trauma. EARS, NOSE, THROAT: Ears normal, nares patent, oropharynx clear without exudates. NECK: supple without lymphadenopathy, JVD, or masses. LUNGS: Breath sounds equal bilateral, . No wheezes, ronchi present b/l HEART: s1s2 normal, hr irregularly irregular ABDOMEN: edema in anterior abdominal wall decreased, scrotum swelling decreased UPPER EXTREMITIES: 2+ pulses, warm, well-perfused. No cyanosis. LOWER EXTREMITIES: 2+ pulses, warm, well-perfused. No calf tenderness.peripheral edema present 1+ NEUROLOGICAL: unobtainable SKIN: Warm, dry, Laboratory Results - last 24 hr 10/14/16 10/15/16 10/15/16 17:40 05:25 05:25 WBC 9.3 RBC 5.63 H Hgb 18.1 H Hct 55.0 H MCV 97.7 H MCHC 32.8 RDW 15.3 Plt Count 164 D MPV 10.2 Neutrophils % 73.2 Lymphocytes % 8.1 Monocytes % 15.4 H Eosinophils % 2.0 Basophils % 1.3 Puncture Site Right radial ABG pH 7.44 ABG pCO2 at Pt Temp 67.0 H* ABG pO2 at Pt Temp 67.8 L D ABG HCO3 44.7 H* ABG O2 Sat (Measured) 94.0 ABG O2 Content 22.8 H ABG Base Excess 15.8 H* Ye Test Positive O2 Delivery Device Venti mask Oxygen Flow Rate 50% PEEP 0.0 Sodium 145 Potassium 3.5 Chloride 94 L Carbon Dioxide 41 H Anion Gap 10 BUN 35 H D Creatinine 0.9 Creat Clearance w eGFR > 60 Random Glucose 137 H Calcium 8.8 Phosphorus 2.0 L D Magnesium 2.3 Total Bilirubin 2.7 H D AST 37 ALT 35 Alkaline Phosphatase 85 Total Protein 6.3 L Albumin 2.8 L Active Medications Generic Name Dose Route Start Last Admin Trade Name Freq PRN Reason Stop Dose Admin Acetaminophen 650 mg 10/10/16 15:28 10/13/16 22:53 Tylenol - PO 650 mg Q6H PRN Administration FEVER OR PAIN Albuterol/Ipratropium 1 amp 10/14/16 13:30 10/15/16 12:47 Duoneb - NEB 1 amp QIDR LYNETTE Administration Amino Acids 30 ml 10/10/16 17:30 10/15/16 08:18 Prosource No Carb Liquid Pkt PO Not Given BID@0800,1730 [facility] Apixaban 5 mg 10/09/16 10:30 10/15/16 09:03 Eliquis - PO 5 mg BID LYNETTE Administration Carvedilol 12.5 mg 10/15/16 12:23 Coreg - NGT BID [facility] Chlorhexidine Gluconate 1 applic 10/05/16 22:00 10/14/16 21:34 Hibiclens For Decolonization - TP Not Given HS [facility] Chlorhexidine Gluconate 15 ml 10/06/16 10:00 10/15/16 09:04 Peridex - MM Not Given BID [facility] Diltiazem HCl 30 mg 10/15/16 18:00 Cardizem - PO QID [facility] Potassium Phosphate 40 mm/ 513.3333 mls @ 85.556 mls/hr 10/15/16 11:06 12:23 Dextrose IVPB 10/15/16 17:05 85.556 mls/hr ONCE ONE Administration Pantoprazole Sodium 40 mg 10/15/16 22:00 Protonix - PO DAILY [facility] Piperacillin Sod/Tazobactam Sod 4.5 gm 10/14/16 11:00 10/15/16 09:05 Zosyn 4.5gm Ivpb (Pre-Docked) IVPB 4.5 gm Q8H-IV LYNETTE Administration Polyethylene Glycol 17 gm 10/09/16 22:00 10/15/16 09:03 Miralax (For Daily Use) - PO Not Given BID [facility] Potassium Chloride 40 meq 10/08/16 10:00 10/15/16 09:04 Potassium Chloride Oral Liquid PO Not Given DAILY [facility] Potassium Phos/Sodium Phos 1 packet 10/15/16 10:00 10/15/16 09:04 Phos-Nak Packet - PO 10/15/16 22:01 Not Given BID L[facility]NETTE Sodium Chloride 2 spray 10/15/16 11:18 10/15/16 12:27 [place] Nasal [place] - NS 2 sprays TID PRN Administration NASAL CONGESTION ASSESSMENT/PLAN: Acute exacerbation CHF with hypoxic hypercapnic respiratory failure monitor i/o, maintain negative balance daily weight monitor vitals, follow echo : LV systolic function mild to moderately reduced cxr effusion decreased, on duoneb neb one time lasix 40mg iv given on ventuary mask 50% Fever; no fever over night culture negative UA : no uti id on case: on zosyn A fib on eliquis on coreg 12.5bid and cradiazem 30 qid cardiology on case Hypotension keep MAP >65 MONIE ( cardiorenal) - improved - nephrology on case - avoid nephrotoxic drugs - monitor creatinine Hypokalemia and hypomagnesemia improved FEN -diurese, -replete lytes, replace phosphorus - on tube feed PPX: PPI, eliquis chest physiotherapy, physical therapy Dispo: ICU Visit type - Emergency Visit Emergency Visit: Yes ED Registration Date: 10/05/16 Care time: The patient presented to the Emergency Department on the above date and was hospitalized for further evaluation of their emergent condition. - New Patient This patient is new to me today: No - Critical Care Critical Care patient: Yes Total Critical Care Time (in minutes): 45 Critical Care Statement: The care of this patient involved high complexity decision making to prevent further life threatening deterioration of the patient 's condition and/or to evalute & treat vital organ system(s) failure or risk of failure.
[2016-10-15] MEDS: dilTIAZem HCL 30 MG TABLET (FP) PO SCH ×2 (17:25→21:03)
[2016-10-15] MEDS ORDERED: PT OWN MED DRAWER 7, Y5N ONE (20:45)
[2016-10-15] MEDS: CHLORHEXIDINE GLUCONATE 4% CLEANSER FOR DECOLONIZATION TP SCH (21:04)
[2016-10-16] MEDS: ALBUTEROL SO4 2.5/IPRATROPIUM 0.5 INH SOL 3 ML VIAL.NEB. NEB SCH ×5 (00:10→23:10)
[2016-10-16] MEDS: PIPERACILLIN/TAZOB 4.5 GM/100 ML PRE-DOCKED IVPB SCH ×3 (01:19→17:26)
[2016-10-16] MEDS ORDERED: FUROSEMIDE 40 MG/4 ML INJECTABLE VIAL IVPUSH ONE (01:55)
[2016-10-16] MEDS ORDERED: FUROSEMIDE 40 MG/4 ML INJECTABLE VIAL ONE (01:58)
[2016-10-16] MEDS ORDERED: LABETALOL HCL 5 MG/1 ML (100MG/20 ML VIAL) IVPUSH ONE (02:06)
[2016-10-16] MEDS ORDERED: HALOPERIDOL LACTATE 5 MG/ML ONE (02:33)
[2016-10-16] MEDS ORDERED: HALOPERIDOL LACTATE 5 MG/ML IM ONE (02:35)
[2016-10-16] MEDS ORDERED: dilTIAZem HCL 30 MG TABLET (FP) PO ONE ×2 (03:21→07:52)
[2016-10-16 06:12] LABS: BASOPHIL 1.2 % (0-2.0); EOSINOPHIL 1.5 % (0-4.5); MCH 32.1 pg (25.7-33.7); MCHC 32.9 g/dl (32.0-35.9); MEAN CELL VOLUME 97.5 fl (80-96); MEAN PLT VOLUME 9.5 fl (7.5-11.1); NEUTROPHILS 75.8 % (42.8-82.8); PLATELET COUNT 189 K/MM3 (134-434); RDW 15.5 % (11.9-15.9)
[2016-10-16 06:46] LABS: ALBUMIN 2.9 g/dl (3.4-5.0); ANION GAP 7 (8-16); BILIRUBIN,TOTAL 3.2 mg/dL (0.2-1.0); CALCIUM 8.7 mg/dL (8.5-10.1); CO2 43 mmol/L (21-32); GLUCOSE,RANDOM 138 mg/dL (74-106); SGOT/AST 30 U/L (15-37); SGPT/ALT 35 U/L (12-78); TOT PROT 6.3 g/dl (6.4-8.2)
[2016-10-16 06:47] LABS: ALK PHOS 76 U/L (45-117)
--- NOTE | 2016-10-16 07:03 | MSN ---
Progress Note (short form) - Note Progress Note: 60 yo male presented to ER 04 November for testicular swelling X 1 1/2 wks and increasing shortness of breath; he was diagnosed with new onset Afib, B/L LE lymphedema and edema of the scrotum. PMH sig for HTN, GERD, obesity and cigarette smoke. Day 2 since pt. was extubated. Last Vital Signs Temp Pulse Resp BP Pulse Ox 97.8 F 134 H 24 131/69 93 L 10/16/16 06:00 10/16/16 06:00 10/16/16 06:00 10/16/16 06:00 10/16/16 02:00 Intake & Output 10/13/16 10/14/16 10/15/16 10/16/16 23:59 23:59 23:59 23:59 Intake Total 2376.7 1968.2 1180 220 Output Total 3200 3700 2150 900 Balance -823.3 -1731.8 -970 -680 Weight 252 lb 6.4 oz 250 lb 7.122 oz 251 lb 7.122 oz 234 lb 6.4 oz Laboratory Results - last 24 hr 10/09/16 10/15/16 10/15/16 05:05 05:25 05:25 WBC 9.3 RBC 5.63 H Hgb 18.1 H Hct 55.0 H MCV 97.7 H MCHC 32.8 RDW 15.3 Plt Count 164 D MPV 10.2 Neutrophils % 73.2 Lymphocytes % 8.1 Monocytes % 15.4 H Eosinophils % 2.0 Basophils % 1.3 Sodium 145 Potassium 3.5 Chloride 94 L Carbon Dioxide 41 H Anion Gap 10 BUN 35 H D Creatinine 0.9 Creat Clearance w eGFR > 60 Random Glucose 137 H Calcium 8.8 Phosphorus 2.0 L D Magnesium 2.3 Total Bilirubin 2.7 H D AST 37 ALT 35 Alkaline Phosphatase 85 Total Protein 6.3 L Albumin 2.8 L Thyroid Stim Immunoglob 60 10/16/16 10/16/16 05:15 05:15 WBC 10.0 RBC 5.75 H Hgb 18.5 H Hct 56.1 H MCV 97.5 H MCHC 32.9 RDW 15.5 Plt Count 189 MPV 9.5 Neutrophils % 75.8 Lymphocytes % 8.1 Monocytes % 13.4 H Eosinophils % 1.5 Basophils % 1.2 Sodium 146 H Potassium 3.3 L Chloride 96 L Carbon Dioxide 43 H Anion Gap 7 L BUN 36 H Creatinine 1.0 Creat Clearance w eGFR > 60 Random Glucose 138 H Calcium 8.7 Phosphorus Magnesium Total Bilirubin 3.2 H AST 30 ALT 35 Alkaline Phosphatase 76 Total Protein 6.3 L Albumin 2.9 L Thyroid Stim Immunoglob Current Active Problems Abrasion hip/leg (Acute) Acute hypercapnic respiratory failure (Acute) Acute kidney injury (Acute) Acute on chronic diastolic (congestive) heart failure (Acute) Acute respiratory failure requiring reintubation (Acute) Anasarca (Acute) Atrial fibrillation, new onset (Acute) Cellulitis (Acute) Congestive heart failure (CHF) (Acute) Edema of scrotum (Acute) Lymphedema of both lower extremities (Acute) Morbid obesity (Acute) Renal insufficiency (Acute) Respiratory failure requiring intubation (Acute) Sleep apnea (Acute) General: Sedated on ventilation; pt asleep during examination Head: Normocephalic Neck: Neg JVD Heart:Irregularly irregular; tachycardic Lungs: B/L lower lobes decrease breath sounds Abdomen: Distended and edematous but slightly better that last examination; no TTP; BS normocephalic; no guarding : Testicular edema B/L slightly better; neg infection at maxwell site MSK: Pitting edema LE 1+ slightly better than last report; peripheral pulse 2+; B/L venous stasis LE Assessment & Plan: This is a 60 yo M every day smoker with PMH of HTN, GERD, and obesity who presents due to testicular swelling x 1 W and worsening SOB. Diagnosed with acute hypercapnic hypoxic respiratory failure. Acute decompensated CHF -NYHA class III-IV -TTE mild/mod reduced EF, mild pulm HTN, RVP 30-40 -CXR AM improved r base s/p one time lasix 40 iv -increase coreg to 12.5, watch BP -start areli tomorrow -strict I and O Fever -CT chest: goiter, RUL cystic lesion, bibasilar effusions and consolidation -sputum, blood cultures negative -ID consult: finished abx -remove central line out Hypotension -resolved A fib -eliquis MONIE -creat 0.9 at baseline Acute hypoxic respiratory failure -ventimask sat 92% on 15 L, monitor FEN -no IVF -replete lytes -Promote tube feed PPX: PPI, noac Dispo: ICU Problem List - Problems (1) Congestive heart failure (CHF) Code(s): I50.9 - HEART FAILURE, UNSPECIFIED Qualifiers: Congestive heart failure type: combined Congestive heart failure chronicity: acute Qualified Code(s): I50.41 - Acute combined systolic ( congestive) and diastolic (congestive) heart failure (2) Acute respiratory failure requiring reintubation Code(s): J96.00 - ACUTE RESPIRATORY FAILURE, UNSP W HYPOXIA OR HYPERCAPNIA (3) Atrial fibrillation, new onset Code(s): I48.91 - UNSPECIFIED ATRIAL FIBRILLATION (4) Renal insufficiency Code(s): N28.9 - DISORDER OF KIDNEY AND URETER, UNSPECIFIED (5) Acute kidney injury Code(s): N17.9 - ACUTE KIDNEY FAILURE, UNSPECIFIED (6) Anasarca Code(s): R60.1 - GENERALIZED EDEMA (7) Cellulitis Code(s): L03.90 - CELLULITIS, UNSPECIFIED Qualifiers: Site of cellulitis: extremity Site of cellulitis of extremity: lower extremity Laterality: right Qualified Code(s): L03.115 - Cellulitis of right lower limb (8) Edema of scrotum Code(s): N50.89 - OTHER SPECIFIED DISORDERS OF THE MALE GENITAL ORGANS (9) Lymphedema of both lower extremities Code(s): I89.0 - LYMPHEDEMA, NOT ELSEWHERE CLASSIFIED (10) Morbid obesity Code(s): E66.01 - MORBID (SEVERE) OBESITY DUE TO EXCESS CALORIES (11) Sleep apnea Code(s): G47.30 - SLEEP APNEA, UNSPECIFIED Qualifiers: Sleep apnea type: unspecified type Qualified Code(s): G47.30 - Sleep apnea, unspecified
--- NOTE | 2016-10-16 07:06 | PN ---
Progress Note, Physician Chief Complaint: ID Extubated Confused Sats good when he keeps mask on Afebrile Day 7 Zosyn - Current Medication List Current Medications: Active Medications Acetaminophen (Tylenol -) 650 mg PO Q6H PRN PRN Reason: FEVER OR PAIN Last Admin: 10/13/16 22:53 Dose: 650 mg Albuterol/Ipratropium (Duoneb -) 1 amp NEB QIDR [facility] Last Admin: 10/16/16 06:42 Dose: Not Given Amino Acids (Prosource No Carb Liquid Pkt) 30 ml PO BID@0800,1730 [facility] Last Admin: 10/15/16 17:19 Dose: Not Given Apixaban (Eliquis -) 5 mg PO BID [facility] Last Admin: 10/15/16 21:03 Dose: 5 mg Carvedilol (Coreg -) 12.5 mg NGT BID [facility] Last Admin: 10/15/16 21:03 Dose: 12.5 mg Chlorhexidine Gluconate (Hibiclens For Decolonization -) 1 applic TP [facility] Last Admin: 10/15/16 21:04 Dose: 1 applic Diltiazem HCl (Cardizem -) 30 mg PO QID [facility] Last Admin: 10/15/16 21:03 Dose: 30 mg Nicotine (Nicoderm Patch -) 21 mg TD DAILY [facility] Pantoprazole Sodium (Protonix -) 40 mg PO [facility] Piperacillin Sod/Tazobactam Sod (Zosyn 4.5gm Ivpb (Pre-Docked)) 4.5 gm IVPB Q8H -IV [facility] Last Admin: 10/16/16 01:19 Dose: 4.5 gm Polyethylene Glycol (Miralax (For Daily Use) -) 17 gm PO BID [facility] Last Admin: 10/15/16 21:04 Dose: Not Given Potassium Chloride (Potassium Chloride Oral Liquid) 40 meq PO DAILY [facility] Last Admin: 10/15/16 09:04 Dose: Not Given Sodium Chloride ([place] Nasal [place] -) 2 spray NS TID PRN PRN Reason: NASAL CONGESTION Last Admin: 10/15/16 12:27 Dose: 2 sprays - Objective Vital Signs: Vital Signs Temperature 97.8 F 10/16/16 06:00 Pulse Rate 134 H 10/16/16 06:00 Respiratory Rate 24 10/16/16 06:00 Blood Pressure 131/69 10/16/16 06:00 O2 Sat by Pulse Oximetry (%) 93 L 10/16/16 02:00 Constitutional: Yes: Mild Distress Neck: Yes: WNL, Supple Cardiovascular: Yes: S1, S2 Respiratory: Yes: Regular, CTA Bilaterally, Rhonchi Gastrointestinal: Yes: Soft. No: Tenderness Labs: CBC, BMP 10/16/16 05:15 10/16/16 05:15 INR, PTT INR 1.32 (0.82-1.09) H 10/13/16 05:35 Assessment/Plan Microbiology 10/13/16 12:00 Sputum - Endotrachea Suction/Ventilator Gram Stain - Final 10/13/16 12:00 Sputum - Endotrachea Suction/Ventilator Sputum Culture - Final NORMAL RESPIRATORY [place] 10/11/16 13:45 Urine - Urine Hilario Urine Culture - Final NO GROWTH OBTAINED 10/10/16 18:41 Sputum - Endotrachea Suction/Ventilator Gram Stain - Final 10/10/16 18:41 Sputum - Endotrachea Suction/Ventilator Sputum Culture - Final Laboratory Tests 10/16/16 10/16/16 05:15 05:15 WBC 10.0 Hgb 18.5 H Hct 56.1 H Plt Count 189 BUN 36 H Creatinine 1.0 Creat Clearance w eGFR > 60 Assessment Acute respiratory failure Possible pneumonia Today day Cultures reviewed negative growth sputum Plan Would stop antibiotics tomorrow per pharmacy Kindly recall as needed Tucker MCDANIEL
[2016-10-16] MEDS ORDERED: PT OWN MED DRAWER 7, Y5N ONE ×2 (07:49→20:57)
[2016-10-16] MEDS ORDERED: CARVEDILOL 12.5 MG TABLET (FP) PO ONE (07:53)
[2016-10-16] MEDS ORDERED: dilTIAZem HCL 125 MG/25 ML - 25 ML VIAL ONE (09:23)
[2016-10-16] MEDS ORDERED: dilTIAZem HCL 50 MG/10 ML - 10 ML VIAL IVPUSH ONE (09:24)
[2016-10-16] MEDS: AMINO ACIDS/PROTEIN HYDROLYS 30 ML LIQUID.PKT PO SCH ×2 (09:37→17:26)
[2016-10-16] MEDS: POTASSIUM CHLORIDE ORAL LIQUID 20 MEQ/15 ML PO SCH (09:38)
[2016-10-16] MEDS: APIXABAN 5 MG TABLET PO SCH ×2 (09:38→21:23)
[2016-10-16] MEDS ORDERED: PANTOPRAZOLE 40 MG TABLET (FP) PO SCH (10:00)
[2016-10-16] MEDS: NICOTINE 21 MG/24 HOURS TOPICAL PATCH TD SCH (10:45)
[2016-10-16] MEDS: POLYETHYLENE GLYCOL 3350 119 GM BTL PO SCH ×2 (10:46→21:23)
[2016-10-16] MEDS ORDERED: dilTIAZem HCL 125 MG/25 ML - 5 ML VIAL ONE ×2 (12:29→20:55)
[2016-10-16] MEDS: DILTIAZEM INJECTION 125 MG in DEXTROSE 5%-WATER - 100 ML IVPB SCH (12:32)
--- NOTE | 2016-10-16 12:40 | PN ---
Progress Note, Physician History of Present Illness: Extubated on VM, remains in rapid afib, significant diuresis achieved. - Current Medication List Current Medications: Active Medications Acetaminophen (Tylenol -) 650 mg PO Q6H PRN PRN Reason: FEVER OR PAIN Last Admin: 10/13/16 22:53 Dose: 650 mg Albuterol/Ipratropium (Duoneb -) 1 amp NEB QIDR [facility] Last Admin: 10/16/16 06:42 Dose: Not Given Amino Acids (Prosource No Carb Liquid Pkt) 30 ml PO BID@0800,1730 [facility] Last Admin: 10/16/16 09:37 Dose: 30 ml Apixaban (Eliquis -) 5 mg PO BID [facility] Last Admin: 10/16/16 09:38 Dose: 5 mg Carvedilol (Coreg -) 25 mg NGT BID [facility] Chlorhexidine Gluconate (Hibiclens For Decolonization -) 1 applic TP HS [facility] Last Admin: 10/15/16 21:04 Dose: 1 applic Diltiazem HCl (Cardizem -) 30 mg PO QID [facility] Last Admin: 10/15/16 21:03 Dose: 30 mg Diltiazem HCl 125 mg/ Dextrose 125 mls @ 5 mls/hr IVPB TITR LYNETTE; 5 MG/HR PRN Reason: Protocol Last Admin: 10/16/16 12:32 Dose: 5 mls/hr Nicotine (Nicoderm Patch -) 21 mg TD DAILY [facility] Last Admin: 10/16/16 10:45 Dose: 21 mg Pantoprazole Sodium (Protonix -) 40 mg PO HS [facility] Piperacillin Sod/Tazobactam Sod (Zosyn 4.5gm Ivpb (Pre-Docked)) 4.5 gm IVPB Q8H -IV [facility] Stop: 10/17/16 10:30 Last Admin: 10/16/16 09:39 Dose: 4.5 gm Polyethylene Glycol (Miralax (For Daily Use) -) 17 gm PO BID [facility] Last Admin: 10/16/16 10:46 Dose: 17 gm Potassium Chloride (Potassium Chloride Oral Liquid) 40 meq PO DAILY [facility] Last Admin: 10/16/16 09:38 Dose: 40 meq Potassium Chloride (K-Dur -) 40 meq PO ONCE ONE Stop: 10/16/16 14:01 Sodium Chloride ([place] Nasal [place] -) 2 spray NS TID PRN PRN Reason: NASAL CONGESTION Last Admin: 10/15/16 12:27 Dose: 2 sprays - Objective Vital Signs: Vital Signs Temperature 97.8 F 10/16/16 06:00 Pulse Rate 133 H 10/16/16 12:32 Respiratory Rate 22 10/16/16 10:00 Blood Pressure 126/81 10/16/16 12:32 O2 Sat by Pulse Oximetry (%) 94 L 10/16/16 10:00 Constitutional: Yes: No Distress, Calm Neck: Yes: Supple Cardiovascular: Yes: Tachycardia, Pulse Irregular Respiratory: Yes: Regular, Diminished, On Venti-Mask Gastrointestinal: Yes: Normal Bowel Sounds, Soft, Abdomen, Obese Edema: Yes Edema: LLE: Trace, RLE: Trace Labs: CBC, BMP 10/16/16 05:15 10/16/16 05:15 INR, PTT INR 1.32 (0.82-1.09) H 10/13/16 05:35 - ....Imaging Chest X-ray: Report Reviewed (Unchanged) EKG: Report Reviewed (Tele: Rapid afib) Problem List - Problems (1) Atrial fibrillation, new onset Code(s): I48.91 - UNSPECIFIED ATRIAL FIBRILLATION (2) Sleep apnea Code(s): G47.30 - SLEEP APNEA, UNSPECIFIED Qualifiers: Sleep apnea type: unspecified type Qualified Code(s): G47.30 - Sleep apnea, unspecified (3) Acute on chronic diastolic (congestive) heart failure Code(s): I50.33 - ACUTE ON CHRONIC DIASTOLIC (CONGESTIVE) HEART FAILURE (4) Acute hypercapnic respiratory failure Code(s): J96.02 - ACUTE RESPIRATORY FAILURE WITH HYPERCAPNIA Assessment/Plan Echocardiography revealed mild to moderate LV systolic dysfunction, moderate TR , RVSP of 30-40 mmHg 1. Acute class III-IV NYHA classification LV failure related to systolic/ diastolic LV dysfunction with pulm HTN resolving, pre-renal azotemia 2. Unclear if ischemic dilated cardiomyopathy vs. ideopathic cardiomyopathy vs. tachycardia induced cardiomyopathy (atrial fibrillation) 3. Post Acute Hypoxic and Hypercapneic Respiratory Failure 4. Persistent atrial fibrillation with periods of rapid ventricular response, [id number] score of 2 5. HTN 6. Hypercholesterolemia 7. Acute renal insufficiency since resolved 8. Polycythmia 9. Thrombocytopenia 10. Obesity suspect OSAS PLAN: 1. Diuresis as needed with monitor diuretic response, renal fxn and electrolytes , replete K 2. Increase Coreg 25 bid and start Cardizem gtt as hemodynamics permit for rate- control 3. Complete empiric abx course per ID 4. Continue Eliquis 5 bid 5. Ideally should be on ACEI or ARBS once renal fxn stable 6. BD, O2 to keep SpO2 >90%, GI prophylaxis, aspiration precautions, OOB to chair
--- NOTE | 2016-10-16 13:03 | PN ---
Teaching Attending Note Name of Resident: Nick Kang ATTENDING PHYSICIAN STATEMENT I saw and evaluated the patient. I reviewed the resident's note and discussed the case with the resident. I agree with the resident's findings and plan as documented. SUBJECTIVE: Patient seen and examined in the ICU. Remains extubated. Awake and responsive on VM O2. Denies shortness of breath. No fevers recorded. Remains in Rapid AFib. Intake & Output 10/13/16 10/14/16 10/15/16 10/16/16 23:59 23:59 23:59 23:59 Intake Total 2376.7 1968.2 1180 220 Output Total 3200 3700 2150 900 Balance -823.3 -1731.8 -970 -680 Weight 252 lb 6.4 oz 250 lb 7.122 oz 251 lb 7.122 oz 234 lb 6.4 oz Last Vital Signs Temp Pulse Resp BP Pulse Ox 97.8 F 133 H 22 126/81 94 L 10/16/16 06:00 10/16/16 12:32 10/16/16 10:00 10/16/16 12:32 10/16/16 10:00 Active Medications Acetaminophen (Tylenol -) 650 mg PO Q6H PRN PRN Reason: FEVER OR PAIN Last Admin: 10/13/16 22:53 Dose: 650 mg Albuterol/Ipratropium (Duoneb -) 1 amp NEB QIDR [facility] Last Admin: 10/16/16 11:23 Dose: 1 amp Amino Acids (Prosource No Carb Liquid Pkt) 30 ml PO BID@0800,1730 [facility] Last Admin: 10/16/16 09:37 Dose: 30 ml Apixaban (Eliquis -) 5 mg PO BID [facility] Last Admin: 10/16/16 09:38 Dose: 5 mg Carvedilol (Coreg -) 25 mg NGT BID [facility] Chlorhexidine Gluconate (Hibiclens For Decolonization -) 1 applic TP HS [facility] Last Admin: 10/15/16 21:04 Dose: 1 applic Diltiazem HCl 125 mg/ Dextrose 125 mls @ 5 mls/hr IVPB TITR LYNETTE; 5 MG/HR PRN Reason: Protocol Last Admin: 10/16/16 12:32 Dose: 5 mls/hr Nicotine (Nicoderm Patch -) 21 mg TD DAILY [facility] Last Admin: 10/16/16 10:45 Dose: 21 mg Pantoprazole Sodium (Protonix -) 40 mg PO HS [facility] Piperacillin Sod/Tazobactam Sod (Zosyn 4.5gm Ivpb (Pre-Docked)) 4.5 gm IVPB Q8H -IV [facility]NETTE Stop: 10/17/16 10:30 Last Admin: 10/16/16 09:39 Dose: 4.5 gm Polyethylene Glycol (Miralax (For Daily Use) -) 17 gm PO BID [facility] Last Admin: 10/16/16 10:46 Dose: 17 gm Potassium Chloride (Potassium Chloride Oral Liquid) 40 meq PO DAILY [facility] Last Admin: 10/16/16 09:38 Dose: 40 meq Potassium Chloride (K-Dur -) 40 meq PO ONCE ONE Stop: 10/16/16 14:01 Sodium Chloride ([place] Nasal [place] -) 2 spray NS TID PRN PRN Reason: NASAL CONGESTION Last Admin: 10/15/16 12:27 Dose: 2 sprays OBJECTIVE: Gen: awake on VM O2, able to answer questions Heart: tachycardic, irregular Lung: scattered rhonchi Abd: soft, nontender Ext: decreasing edema Laboratory Results - last 24 hr 10/09/16 10/16/16 10/16/16 05:05 05:15 05:15 WBC 10.0 RBC 5.75 H Hgb 18.5 H Hct 56.1 H MCV 97.5 H MCHC 32.9 RDW 15.5 Plt Count 189 MPV 9.5 Neutrophils % 75.8 Lymphocytes % 8.1 Monocytes % 13.4 H Eosinophils % 1.5 Basophils % 1.2 Sodium 146 H Potassium 3.3 L Chloride 96 L Carbon Dioxide 43 H Anion Gap 7 L BUN 36 H Creatinine 1.0 Creat Clearance w eGFR > 60 Random Glucose 138 H Calcium 8.7 Total Bilirubin 3.2 H AST 30 ALT 35 Alkaline Phosphatase 76 Total Protein 6.3 L Albumin 2.9 L Thyroid Stim Immunoglob 60 ASSESSMENT AND PLAN: Acute Hypoxic and Hypercapneic Respiratory Failure Acute on ?Chronic LV Systolic Heart Failure Pulmonary HTN Volume Overload Atrial Fibrillation with RVR Acute Kidney Injury Hyperthyroidism Fevers - r/o Pneumonia - completed antibiotic course - Hold Lasix today - monitor urine output, creatinine - daily weights, I/Os - rate control per cardiology -> started on Cardizem drip - continue anticoagulation - inhaled bronchodilators - O2 to keep SpO2 >90% - PO as tolerated - aspiration precautions - DVT/GI prophylaxis - continue ICU monitoring Dr Sanz Critical care time spent reviewing chart, evaluating patient and formulating plan 35 min Problem List - Problems (1) Atrial fibrillation, new onset Code(s): I48.91 - UNSPECIFIED ATRIAL FIBRILLATION (2) Congestive heart failure (CHF) Code(s): I50.9 - HEART FAILURE, UNSPECIFIED Qualifiers: Congestive heart failure type: combined Congestive heart failure chronicity: acute Qualified Code(s): I50.41 - Acute combined systolic ( congestive) and diastolic (congestive) heart failure (3) Edema of scrotum Code(s): N50.89 - OTHER SPECIFIED DISORDERS OF THE MALE GENITAL ORGANS (4) Lymphedema of both lower extremities Code(s): I89.0 - LYMPHEDEMA, NOT ELSEWHERE CLASSIFIED (5) Acute respiratory failure requiring reintubation Code(s): J96.00 - ACUTE RESPIRATORY FAILURE, UNSP W HYPOXIA OR HYPERCAPNIA (6) Sleep apnea Code(s): G47.30 - SLEEP APNEA, UNSPECIFIED Qualifiers: Sleep apnea type: unspecified type Qualified Code(s): G47.30 - Sleep apnea, unspecified (7) Renal insufficiency Code(s): N28.9 - DISORDER OF KIDNEY AND URETER, UNSPECIFIED (8) Morbid obesity Code(s): E66.01 - MORBID (SEVERE) OBESITY DUE TO EXCESS CALORIES
--- NOTE | 2016-10-16 13:54 | PN ---
Physical Exam: SUBJECTIVE: Patient seen and examined Patient resting in bed, NAD. afebrile and hemodynamically stable. extubated 28 hr ago, now sattign 93% on ventimask. A fib rate 140's-a50's. Given one dose of lasix 40 at night, negative fluid balance of 680 cc overnight, 1731 cc yesterday. dark yellow urine, appears dry. Denies chest pain, sob, palpitations, abd pain. Is currently aaox3 but forgetful OBJECTIVE: Vital Signs Period Temp Pulse Resp BP Sys/Clements Pulse Ox Last 24 Hr 97.6 F-98.7 F 121-160 20-29 100-145/69-95 93-94 GENERAL: aaox3, nad HEAD: Normal with no signs of trauma, obese EYES: Perrla EOMA EARS, NOSE, THROAT: dry mucous membranes. NECK: supple no JVD LUNGS: reduced breath sounds at bases HEART: tachy, irregular ABDOMEN: smaller, softer, 1+ edema, moderately erythematous, reduced bowel sounds MUSCULOSKELETAL: No bony deformities UPPER EXTREMITIES: 2+ pulses, mild peripheral edema. LOWER EXTREMITIES: 1+ pulses, 1+ pitting edema much improved, skin now wrinkled , chronic stasis dermatitis b/l NEUROLOGICAL: cranial nerves grossly intact PSYCHIATRIC: calm SKIN: Warm, dry Laboratory Results - last 24 hr 10/09/16 10/16/16 10/16/16 05:05 05:15 05:15 WBC 10.0 RBC 5.75 H Hgb 18.5 H Hct 56.1 H MCV 97.5 H MCHC 32.9 RDW 15.5 Plt Count 189 MPV 9.5 Neutrophils % 75.8 Lymphocytes % 8.1 Monocytes % 13.4 H Eosinophils % 1.5 Basophils % 1.2 Sodium 146 H Potassium 3.3 L Chloride 96 L Carbon Dioxide 43 H Anion Gap 7 L BUN 36 H Creatinine 1.0 Creat Clearance w eGFR > 60 Random Glucose 138 H Calcium 8.7 Total Bilirubin 3.2 H AST 30 ALT 35 Alkaline Phosphatase 76 Total Protein 6.3 L Albumin 2.9 L Thyroid Stim Immunoglob 60 Active Medications Generic Name Dose Route Start Last Admin Trade Name Freq PRN Reason Stop Dose Admin Acetaminophen 650 mg 10/10/16 15:28 10/13/16 22:53 Tylenol - PO 650 mg Q6H PRN Administration FEVER OR PAIN Albuterol/Ipratropium 1 amp 10/14/16 13:30 10/16/16 11:23 Duoneb - NEB 1 amp QIDR LYNETTE Administration Amino Acids 30 ml 10/10/16 17:30 10/16/16 09:37 Prosource No Carb Liquid Pkt PO 30 ml BID@0800,1730 LYNETTE Administration Apixaban 5 mg 10/09/16 10:30 10/16/16 09:38 Eliquis - PO 5 mg BID LYNETTE Administration Carvedilol 25 mg 10/16/16 12:18 Coreg - NGT BID LYNETTE Chlorhexidine Gluconate 1 applic 10/05/16 22:00 10/15/16 21:04 Hibiclens For Decolonization - TP 1 applic HS LYNETTE Administration Diltiazem HCl 125 mg/ Dextrose 125 mls @ 5 mls/hr 10/16/16 12:30 10/16/16 12:32 IVPB 5 mls/hr TITR LYNETTE Administration Protocol 5 MG/HR Nicotine 21 mg 10/16/16 10:00 10/16/16 10:45 Nicoderm Patch - TD 21 mg DAILY LYNETTE Administration Pantoprazole Sodium 40 mg 10/16/16 22:00 Protonix - PO HS LYNETTE Piperacillin Sod/Tazobactam Sod 4.5 gm 10/14/16 11:00 10/16/16 09:39 Zosyn 4.5gm Ivpb (Pre-Docked) IVPB 10/17/16 10:30 4.5 gm Q8H-IV LYNETTE Administration Polyethylene Glycol 17 gm 10/09/16 22:00 10/16/16 10:46 Miralax (For Daily Use) - PO 17 gm BID LYNETTE Administration Potassium Chloride 40 meq 10/08/16 10:00 10/16/16 09:38 Potassium Chloride Oral Liquid PO 40 meq DAILY LYNETTE Administration Potassium Chloride 40 meq 10/16/16 14:00 K-Dur - PO 10/16/16 14:01 ONCE ONE Sodium Chloride 2 spray 10/15/16 11:18 10/15/16 12:27 [place] Nasal [place] - NS 2 sprays TID PRN Administration NASAL CONGESTION ASSESSMENT/PLAN: This is a 60 yo M every day smoker with PMH of HTN, GERD, and obesity who presents due to testicular swelling x 1 W and worsening SOB. Acute decompensated CHF -extubated yesterday -NYHA class III-IV -was in severe fluid overload, anasarca -TTE mild/mod reduced EF, mild pulm HTN, RVP 30-40, global mild/mod LV hypokinesis worse than 05/06/16 -CXR AM improved r base s/p one time lasix 40 iv overnight -now milldy volume contracted, orally hudrate -cardio on case -increase coreg to 25bid -cardizem drip -start areli tomorrow -strict I and O -daily weight -am xray -tele monitoring a fib -icu monitoring Fever -CT chest: goiter, RUL cystic lesion, bibasilar effusions and consolidation -sputum, blood cultures negative -ID consult: finished abx -remove central line out COPD -bicarb 46 -nebs Hypotension -resolved A fib -eliquis Hyperthyroid -incidental, repeat labs wnl MONIE -creat 0.9 at baseline Acute hypoxic respiratory failure -ventimask sat 93% on 15 L, monitor FEN -no IVF -replete lytes -Promote tube feed PPX: PPI, noac Dispo: ICU Problem List - Problems (1) Acute respiratory failure requiring reintubation Code(s): J96.00 - ACUTE RESPIRATORY FAILURE, UNSP W HYPOXIA OR HYPERCAPNIA (2) Atrial fibrillation, new onset Code(s): I48.91 - UNSPECIFIED ATRIAL FIBRILLATION (3) Congestive heart failure (CHF) Code(s): I50.9 - HEART FAILURE, UNSPECIFIED Qualifiers: Congestive heart failure type: combined Congestive heart failure chronicity: acute Qualified Code(s): I50.41 - Acute combined systolic ( congestive) and diastolic (congestive) heart failure (4) Edema of scrotum Code(s): N50.89 - OTHER SPECIFIED DISORDERS OF THE MALE GENITAL ORGANS (5) Lymphedema of both lower extremities Code(s): I89.0 - LYMPHEDEMA, NOT ELSEWHERE CLASSIFIED (6) Morbid obesity Code(s): E66.01 - MORBID (SEVERE) OBESITY DUE TO EXCESS CALORIES (7) Renal insufficiency Code(s): N28.9 - DISORDER OF KIDNEY AND URETER, UNSPECIFIED (8) Sleep apnea Code(s): G47.30 - SLEEP APNEA, UNSPECIFIED Qualifiers: Sleep apnea type: unspecified type Qualified Code(s): G47.30 - Sleep apnea, unspecified (9) Acute kidney injury Code(s): N17.9 - ACUTE KIDNEY FAILURE, UNSPECIFIED (10) Anasarca Code(s): R60.1 - GENERALIZED EDEMA Visit type - Emergency Visit Emergency Visit: Yes ED Registration Date: 10/05/16 Care time: The patient presented to the Emergency Department on the above date and was hospitalized for further evaluation of their emergent condition. - New Patient This patient is new to me today: No - Critical Care Critical Care patient: Yes Total Critical Care Time (in minutes): 48 Critical Care Statement: The care of this patient involved high complexity decision making to prevent further life threatening deterioration of the patient 's condition and/or to evalute & treat vital organ system(s) failure or risk of failure. - Discharge Referral Referred to [facility] No
[2016-10-16] MEDS ORDERED: POTASSIUM CHLORIDE TABS 20 MEQ TABLET.ER (FP) PO ONE (14:00)
--- NOTE | 2016-10-16 14:45 | PN ---
Progress Note, ACADEMIC HOSPITALIST - Note Progress Note: Case discussed with Resident, who reported that pt improved yesterday and tolerated pureed dietr last night and this morning. Upgraded to soft diet and thin liquid with good appetite and tolerance. Reassessed with no cough response with thin water from a straw. Confused, reduced rate of articulation, insight and memory. He denies eating today. Selected Entries 10/15/16 10/15/16 10/15/16 02:00 05:00 08:00 Supper Temperature 99.2 F 98.9 F 99.0 F 10/15/16 10/15/16 10/15/16 10:00 12:00 14:00 Supper Temperature 97.1 F L 97.5 F L 97.8 F 10/15/16 10/15/16 10/15/16 16:00 18:00 19:18 Supper 50% Temperature 97.6 F 97.6 F 10/15/16 10/16/16 10/16/16 22:00 02:00 06:00 Supper Temperature 98.2 F 98.7 F 97.8 F Monitor for PO tolerance, cough, congestion, fever spikes.
--- NOTE | 2016-10-16 14:48 | PN ---
Physical Exam: SUBJECTIVE: Patient seen and examined patient lying comfortably in bed. denies chest pain HR> 140 swelling has decreased on legs, abdomen and scrotum Patient is conscious. no fever recorded will increase his coreg to 25 bid and will start him on cardiazem drip paptient had dysphagia puree diet without difficulty will advance his diet to soft diet patient got 40 mg lasix last night, will not give him lasix OBJECTIVE: Vital Signs Period Temp Pulse Resp BP Sys/Clements Pulse Ox Last 24 Hr 97.6 F-98.7 F 121-160 20-29 100-145/69-95 93-94 GENERAL: awake, alert on ventuary 50 % HEAD: Normal with no signs of trauma. EARS, NOSE, THROAT: Ears normal, nares patent, oropharynx clear without exudates. NECK: supple without lymphadenopathy, JVD, or masses. LUNGS: Breath sounds equal bilateral, . No wheezes, ronchi present b/l HEART: s1s2 normal, hr irregularly irregular ABDOMEN: edema in anterior abdominal wall decreased, scrotum swelling decreased UPPER EXTREMITIES: 2+ pulses, warm, well-perfused. No cyanosis. LOWER EXTREMITIES: 2+ pulses, warm, well-perfused. No calf tenderness.peripheral edema present 1+ NEUROLOGICAL: unobtainable SKIN: Warm, dry, Laboratory Results - last 24 hr 10/09/16 10/16/16 10/16/16 05:05 05:15 05:15 WBC 10.0 RBC 5.75 H Hgb 18.5 H Hct 56.1 H MCV 97.5 H MCHC 32.9 RDW 15.5 Plt Count 189 MPV 9.5 Neutrophils % 75.8 Lymphocytes % 8.1 Monocytes % 13.4 H Eosinophils % 1.5 Basophils % 1.2 Sodium 146 H Potassium 3.3 L Chloride 96 L Carbon Dioxide 43 H Anion Gap 7 L BUN 36 H Creatinine 1.0 Creat Clearance w eGFR > 60 Random Glucose 138 H Calcium 8.7 Total Bilirubin 3.2 H AST 30 ALT 35 Alkaline Phosphatase 76 Total Protein 6.3 L Albumin 2.9 L Thyroid Stim Immunoglob 60 Active Medications Generic Name Dose Route Start Last Admin Trade Name Freq PRN Reason Stop Dose Admin Acetaminophen 650 mg 10/10/16 15:28 10/13/16 22:53 Tylenol - PO 650 mg Q6H PRN Administration FEVER OR PAIN Albuterol/Ipratropium 1 amp 10/14/16 13:30 10/16/16 11:23 Duoneb - NEB 1 amp QIDR LYNETTE Administration Amino Acids 30 ml 10/10/16 17:30 10/16/16 09:37 Prosource No Carb Liquid Pkt PO 30 ml BID@0800,1730 LYNETTE Administration Apixaban 5 mg 10/09/16 10:30 10/16/16 09:38 Eliquis - PO 5 mg BID LYNETTE Administration Carvedilol 25 mg 10/16/16 12:18 Coreg - NGT BID LYNETTE Chlorhexidine Gluconate 1 applic 10/05/16 22:00 10/15/16 21:04 Hibiclens For Decolonization - TP 1 applic HS LYNETTE Administration Diltiazem HCl 125 mg/ Dextrose 125 mls @ 5 mls/hr 10/16/16 12:30 10/16/16 12:32 IVPB 5 mls/hr TITR LYNETTE Administration Protocol 5 MG/HR Nicotine 21 mg 10/16/16 10:00 10/16/16 10:45 Nicoderm Patch - TD 21 mg DAILY LYNETTE Administration Pantoprazole Sodium 40 mg 10/16/16 22:00 Protonix - PO HS LYNETTE Piperacillin Sod/Tazobactam Sod 4.5 gm 10/14/16 11:00 10/16/16 09:39 Zosyn 4.5gm Ivpb (Pre-Docked) IVPB 10/17/16 10:30 4.5 gm Q8H-IV LYNETTE Administration Polyethylene Glycol 17 gm 10/09/16 22:00 10/16/16 10:46 Miralax (For Daily Use) - PO 17 gm BID LYNETTE Administration Potassium Chloride 40 meq 10/08/16 10:00 10/16/16 09:38 Potassium Chloride Oral Liquid PO 40 meq DAILY LYNETTE Administration Sodium Chloride 2 spray 10/15/16 11:18 10/15/16 12:27 [place] Nasal [place] - NS 2 sprays TID PRN Administration NASAL CONGESTION ASSESSMENT/PLAN: Acute exacerbation CHF with hypoxic hypercapnic respiratory failure monitor i/o, maintain negative balance daily weight monitor vitals, follow echo : LV systolic function mild to moderately reduced cxr effusion decreased, on duoneb neb one time lasix 40mg iv given on ventuary mask 50% Fever; no fever over night culture negative UA : no uti id on case: on zosyn A fib on eliquis on coreg 25 bid and cradiazem drip cardiology on case hypernatremia could be from over diureses oral water allowed Hypotension keep MAP >65 MONIE ( cardiorenal) - improved - nephrology on case - avoid nephrotoxic drugs - monitor creatinine Hypokalemia and hypomagnesemia improved FEN -diurese, -replete lytes, replace phosphorus - on tube feed PPX: PPI, eliquis chest physiotherapy, physical therapy Dispo: ICU Visit type - Emergency Visit Emergency Visit: Yes ED Registration Date: 10/05/16 Care time: The patient presented to the Emergency Department on the above date and was hospitalized for further evaluation of their emergent condition. - New Patient This patient is new to me today: No - Critical Care Critical Care patient: Yes Total Critical Care Time (in minutes): 45 Critical Care Statement: The care of this patient involved high complexity decision making to prevent further life threatening deterioration of the patient 's condition and/or to evalute & treat vital organ system(s) failure or risk of failure.
[2016-10-16 15:14] LABS: ARTERIAL BLD GAS O2 SATURATION 92.4 % (90-98.9); ARTERIAL BLOOD GAS BASE EXCESS 16.6 meq/l (-2-2); ARTERIAL BLOOD GAS PO2 63.3 mmHg (80-100); ARTERIAL BLOOD GAS pH 7.49 (7.35-7.45)
[2016-10-16 15:15] LABS: ALLENS TEST POSITIVE; ART PUNCT SITE RIGHT RADIAL; LPM/O2% 50%; PT. ON O2? YES; TYPE OF O2 VENTIMAQSK
[2016-10-16 15:16] LABS: ARTERIAL BLOOD GAS HCO3 44.9 meq/L (22-26)
--- NOTE | 2016-10-16 16:47 | PN ---
Progress Note, Physician History of Present Illness: Pt seen and examined at bedside. He is confused. - Current Medication List Current Medications: Active Medications Acetaminophen (Tylenol -) 650 mg PO Q6H PRN PRN Reason: FEVER OR PAIN Last Admin: 10/13/16 22:53 Dose: 650 mg Albuterol/Ipratropium (Duoneb -) 1 amp NEB QIDR [facility] Last Admin: 10/16/16 11:23 Dose: 1 amp Amino Acids (Prosource No Carb Liquid Pkt) 30 ml PO BID@0800,1730 [facility] Last Admin: 10/16/16 09:37 Dose: 30 ml Apixaban (Eliquis -) 5 mg PO BID [facility] Last Admin: 10/16/16 09:38 Dose: 5 mg Carvedilol (Coreg -) 25 mg NGT BID [facility] Chlorhexidine Gluconate (Hibiclens For Decolonization -) 1 applic TP HS [facility] Last Admin: 10/15/16 21:04 Dose: 1 applic Diltiazem HCl 125 mg/ Dextrose 125 mls @ 5 mls/hr IVPB TITR LYNETTE; 5 MG/HR PRN Reason: Protocol Last Admin: 10/16/16 12:32 Dose: 5 mls/hr Nicotine (Nicoderm Patch -) 21 mg TD DAILY [facility] Last Admin: 10/16/16 10:45 Dose: 21 mg Pantoprazole Sodium (Protonix -) 40 mg PO HS [facility] Piperacillin Sod/Tazobactam Sod (Zosyn 4.5gm Ivpb (Pre-Docked)) 4.5 gm IVPB Q8H -IV LYNETTE Stop: 10/17/16 10:30 Last Admin: 10/16/16 09:39 Dose: 4.5 gm Polyethylene Glycol (Miralax (For Daily Use) -) 17 gm PO BID [facility] Last Admin: 10/16/16 10:46 Dose: 17 gm Potassium Chloride (Potassium Chloride Oral Liquid) 40 meq PO DAILY [facility] Last Admin: 10/16/16 09:38 Dose: 40 meq Sodium Chloride ([place] Nasal [place] -) 2 spray NS TID PRN PRN Reason: NASAL CONGESTION Last Admin: 10/15/16 12:27 Dose: 2 sprays - Objective Vital Signs: Vital Signs Temperature 98.6 F 10/16/16 14:00 Pulse Rate 119 H 10/16/16 14:00 Respiratory Rate 23 10/16/16 14:00 Blood Pressure 124/91 10/16/16 14:00 O2 Sat by Pulse Oximetry (%) 94 L 10/16/16 10:00 Constitutional: Yes: Calm Eyes: Yes: Conjunctiva Clear HENT: Yes: Atraumatic Neck: Yes: Supple Cardiovascular: Yes: S1, S2 Respiratory: Yes: On Nasal O2 Gastrointestinal: Yes: Soft Genitourinary: Yes: Incontinence Musculoskeletal: Yes: Muscle Weakness Edema: Yes Edema: LLE: 1+, RLE: 1+ Integumentary: Yes: Venous Stasis Changes Neurological: Yes: Confusion Labs: CBC, BMP 10/16/16 05:15 10/16/16 05:15 INR, PTT INR 1.32 (0.82-1.09) H 10/13/16 05:35 - ....Imaging Chest X-ray: Report Reviewed Problem List - Problems (1) Acute kidney injury Code(s): N17.9 - ACUTE KIDNEY FAILURE, UNSPECIFIED (2) Anasarca Code(s): R60.1 - GENERALIZED EDEMA (3) Congestive heart failure (CHF) Code(s): I50.9 - HEART FAILURE, UNSPECIFIED Qualifiers: Congestive heart failure type: combined Congestive heart failure chronicity: acute Qualified Code(s): I50.41 - Acute combined systolic ( congestive) and diastolic (congestive) heart failure (4) Morbid obesity Code(s): E66.01 - MORBID (SEVERE) OBESITY DUE TO EXCESS CALORIES (5) Renal insufficiency Code(s): N28.9 - DISORDER OF KIDNEY AND URETER, UNSPECIFIED Assessment/Plan Current Medications Generic Name Dose Route Start Last Admin Trade Name Freq PRN Reason Stop Dose Admin Acetaminophen 650 mg 10/10/16 15:28 10/13/16 22:53 Tylenol - PO 650 mg Q6H PRN Administration FEVER OR PAIN Albuterol/Ipratropium 1 amp 10/14/16 13:30 10/16/16 11:23 Duoneb - NEB 1 amp QIDR LYNETTE Administration Amino Acids 30 ml 10/10/16 17:30 10/16/16 09:37 Prosource No Carb Liquid Pkt PO 30 ml BID@0800,1730 [facility] Administration Apixaban 5 mg 10/09/16 10:30 10/16/16 09:38 Eliquis - PO 5 mg BID LYNETTE Administration Carvedilol 25 mg 10/16/16 12:18 Coreg - NGT BID LYNETTE Chlorhexidine Gluconate 1 applic 10/05/16 22:00 10/15/16 21:04 Hibiclens For Decolonization - TP 1 applic HS LYNETTE Administration Diltiazem HCl 125 mg/ Dextrose 125 mls @ 5 mls/hr 10/16/16 12:30 10/16/16 12:32 IVPB 5 mls/hr TITR LYNETTE Administration Protocol 5 MG/HR Nicotine 21 mg 10/16/16 10:00 10/16/16 10:45 Nicoderm Patch - TD 21 mg DAILY LYNETTE Administration Pantoprazole Sodium 40 mg 10/16/16 22:00 Protonix - PO HS LYNETTE Piperacillin Sod/Tazobactam Sod 4.5 gm 10/14/16 11:00 10/16/16 09:39 Zosyn 4.5gm Ivpb (Pre-Docked) IVPB 10/17/16 10:30 4.5 gm Q8H-IV LYNETTE Administration Polyethylene Glycol 17 gm 10/09/16 22:00 10/16/16 10:46 Miralax (For Daily Use) - PO 17 gm BID LYNETTE Administration Potassium Chloride 40 meq 10/08/16 10:00 10/16/16 09:38 Potassium Chloride Oral Liquid PO 40 meq DAILY LYNETTE Administration Sodium Chloride 2 spray 10/15/16 11:18 10/15/16 12:27 [place] Nasal [place] - NS 2 sprays TID PRN Administration NASAL CONGESTION Impression 1. Azotemia 2. CHF acute 3. acute resp failure requiring intubation 4. new onset atrial fibrillation 5. hx of htn 6. obesity 7. chronic smoker 8. hypokalemia Plan - cont with lasix, will likely need a standing dose - replace potassium - cont current meds - discussed with ICU team - will follow - monitor in ICU - mental status is not at baseline - will follow Dr Delacruz
--- NOTE | 2016-10-16 20:06 | PN ---
Teaching Attending Note Name of Resident: Hillary Reyes ATTENDING PHYSICIAN STATEMENT I saw and evaluated the patient. I reviewed the resident's note and discussed the case with the resident. I agree with the resident's findings and plan as documented. Patient is lying in bed in ICU on VM. Vital Signs Temperature 98 F 10/16/16 18:00 Pulse Rate 126 H 10/16/16 18:00 Respiratory Rate 22 10/16/16 18:00 Blood Pressure 142/95 10/16/16 18:00 O2 Sat by Pulse Oximetry (%) 94 L 10/16/16 10:00 CBCD WBC 10.0 K/mm3 (4.0-10.0) 10/16/16 05:15 RBC 5.75 M/mm3 (4.00-5.60) H 10/16/16 05:15 Hgb 18.5 GM/dL (11.7-16.9) H 10/16/16 05:15 Hct 56.1 % (35.4-49) H 10/16/16 05:15 MCV 97.5 fl (80-96) H 10/16/16 05:15 MCHC 32.9 g/dl (32.0-35.9) 10/16/16 05:15 RDW 15.5 % (11.9-15.9) 10/16/16 05:15 Plt Count 189 K/MM3 (134-434) 10/16/16 05:15 MPV 9.5 fl (7.5-11.1) 10/16/16 05:15 CMP Sodium 146 mmol/L (136-145) H 10/16/16 05:15 Potassium 3.3 mmol/L (3.5-5.1) L 10/16/16 05:15 Chloride 96 mmol/L (98-107) L 10/16/16 05:15 Carbon Dioxide 43 mmol/L (21-32) H 10/16/16 05:15 Anion Gap 7 (8-16) L 10/16/16 05:15 BUN 36 mg/dL (7-18) H 10/16/16 05:15 Creatinine 1.0 mg/dL (0.7-1.3) 10/16/16 05:15 Creat Clearance w eGFR > 60 (>60) 10/16/16 05:15 Random Glucose 138 mg/dL (74-106) H 10/16/16 05:15 Calcium 8.7 mg/dL (8.5-10.1) 10/16/16 05:15 Total Bilirubin 3.2 mg/dL (0.2-1.0) H 10/16/16 05:15 AST 30 U/L (15-37) 10/16/16 05:15 ALT 35 U/L (12-78) 10/16/16 05:15 Alkaline Phosphatase 76 U/L (45-117) 10/16/16 05:15 Total Protein 6.3 g/dl (6.4-8.2) L 10/16/16 05:15 Albumin 2.9 g/dl (3.4-5.0) L 10/16/16 05:15 CARDIAC ENZYMES Creatine Kinase 493 IU/L (39-308) H D 10/07/16 05:55 Troponin I < 0.02 ng/ml (0.00-0.05) 10/07/16 05:55 Current Medications Generic Name Dose Route Start Last Admin Trade Name Freq PRN Reason Stop Dose Admin Acetaminophen 650 mg 10/10/16 15:28 10/13/16 22:53 Tylenol - PO 650 mg Q6H PRN Administration FEVER OR PAIN Albuterol/Ipratropium 1 amp 10/14/16 13:30 10/16/16 18:56 Duoneb - NEB 1 amp QIDR LYNETTE Administration Amino Acids 30 ml 10/10/16 17:30 10/16/16 17:26 Prosource No Carb Liquid Pkt PO 30 ml BID@0800,1730 LYNETTE Administration Apixaban 5 mg 10/09/16 10:30 10/16/16 09:38 Eliquis - PO 5 mg BID LYNETTE Administration Carvedilol 25 mg 10/16/16 12:18 Coreg - NGT BID LYNETTE Chlorhexidine Gluconate 1 applic 10/05/16 22:00 10/15/16 21:04 Hibiclens For Decolonization - TP 1 applic HS LYNETTE Administration Diltiazem HCl 125 mg/ Dextrose 125 mls @ 5 mls/hr 10/16/16 12:30 10/16/16 12:32 IVPB 5 mls/hr TITR LYNETTE Administration Protocol 5 MG/HR Nicotine 21 mg 10/16/16 10:00 10/16/16 10:45 Nicoderm Patch - TD 21 mg DAILY LYNETTE Administration Pantoprazole Sodium 40 mg 10/16/16 22:00 Protonix - PO HS LYNETTE Piperacillin Sod/Tazobactam Sod 4.5 gm 10/14/16 11:00 10/16/16 17:26 Zosyn 4.5gm Ivpb (Pre-Docked) IVPB 10/17/16 10:30 4.5 gm Q8H-IV LYNETTE Administration Polyethylene Glycol 17 gm 10/09/16 22:00 10/16/16 10:46 Miralax (For Daily Use) - PO 17 gm BID LYNETTE Administration Potassium Chloride 40 meq 10/08/16 10:00 10/16/16 09:38 Potassium Chloride Oral Liquid PO 40 meq DAILY LYNETTE Administration Sodium Chloride 2 spray 10/15/16 11:18 10/15/16 12:27 [place] Nasal [place] - NS 2 sprays TID PRN Administration NASAL CONGESTION Home Medications Medication Instructions Recorded Bystolic 10 mg PO DAILY 05/01/16 Hydrochlorothiazide 12.5 mg PO DAILY 05/01/16 Pantoprazole Sodium [Protonix -] 1 tab PO DAILY 05/19/16 Amlodipine/Valsartan [[place] 1 tab PO DAILY 10/05/16 5-160 mg Tablet] Ascorbate Calcium [Vitamin C] 1,000 mg PO DAILY 10/05/16 Aspirin [ASA -] 81 mg PO DAILY 10/05/16 Fisher-3/Dha/Epa/Fish Oil [Fisher 3 350 mg PO DAILY 10/05/16 500 Softgel] Sulfamethoxazole/Trimethoprim 1 each PO BID 10/05/16 [Bactrim Ds Tablet] CVS: Irregularly-irreg. with rate of 126 ASSESSMENT AND PLAN: 60 y/o man with ho GERD, HTN, previously mildly reduced EF who presented with scrotal swelling and was diagnosed with acute hypoxic resp failure due to acute CHF exacerbation #Afib with RVR with rate of 126 on Eliquis continue and on Coreg now and cardizem drip now as per cardilogist discussed with. 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
[2016-10-16] MEDS: CARVEDILOL 12.5 MG TABLET (FP) NGT SCH (21:23)
[2016-10-16] MEDS: CHLORHEXIDINE GLUCONATE 4% CLEANSER FOR DECOLONIZATION TP SCH (21:23)
[2016-10-16] MEDS: PANTOPRAZOLE 40 MG TABLET (FP) PO SCH (21:25)
[2016-10-17] MEDS: PIPERACILLIN/TAZOB 4.5 GM/100 ML PRE-DOCKED IVPB SCH ×2 (01:05→10:41)
[2016-10-17 02:59] LABS: ARTERIAL BLOOD GAS BASE EXCESS 18.4 meq/l (-2-2); ARTERIAL BLOOD GAS PO2 50.1 mmHg (80-100)
[2016-10-17 03:00] LABS: ALLENS TEST POSITIVE; PT. ON O2? YES
[2016-10-17 03:01] LABS: LPM/O2% 50%/6LPM; TYPE OF O2 VENTI MASK/N/C
[2016-10-17] MEDS: ALBUTEROL SO4 2.5/IPRATROPIUM 0.5 INH SOL 3 ML VIAL.NEB. NEB SCH ×3 (06:15→23:58)
[2016-10-17 06:28] LABS: BASOPHIL 0.2 % (0-2.0); MCH 32.1 pg (25.7-33.7); MCHC 32.9 g/dl (32.0-35.9); MEAN CELL VOLUME 97.8 fl (80-96); MEAN PLT VOLUME 9.9 fl (7.5-11.1); PLATELET COUNT 201 K/MM3 (134-434); RDW 15.7 % (11.9-15.9); WHITE BLOOD COUNT 18.3 K/mm3 (4.0-10.0)
[2016-10-17 06:30] LABS: CALCIUM 9.7 mg/dL (8.5-10.1); COCKROFT - GAULT 125.04; CREATININE 0.9 mg/dL (0.7-1.3)
[2016-10-17] MEDS ORDERED: ALBUTEROL SO4 2.5/IPRATROPIUM 0.5 INH SOL 3 ML VIAL.NEB. NEB PRN (07:19)
[2016-10-17] MEDS ORDERED: PT OWN MED DRAWER 7, Y5N ONE ×2 (07:33→22:52)
[2016-10-17] MEDS: AMINO ACIDS/PROTEIN HYDROLYS 30 ML LIQUID.PKT PO SCH ×2 (08:40→19:00)
[2016-10-17 08:44] LABS: BASOPHIL 0.1 % (0-2.0); EOSINOPHIL 0.1 % (0-4.5); MCH 31.9 pg (25.7-33.7); MCHC 32.5 g/dl (32.0-35.9); MEAN CELL VOLUME 98.1 fl (80-96); MEAN PLT VOLUME 9.5 fl (7.5-11.1); NEUTROPHILS 91.9 % (42.8-82.8); RDW 15.2 % (11.9-15.9); WHITE BLOOD COUNT 18.6 K/mm3 (4.0-10.0)
[2016-10-17 08:48] LABS: MAGNESIUM 2.2 mg/dL (1.8-2.4)
[2016-10-17 08:49] LABS: PHOSPHOROUS 3.3 mg/dL (2.5-4.9)
[2016-10-17 09:50] LABS: PLATELET COUNT 169 K/MM3 (134-434); PLATELET ESTIMATE ADEQUATE (NORMAL)
[2016-10-17] MEDS ORDERED: dilTIAZem HCL 125 MG/25 ML - 5 ML VIAL ONE ×2 (10:05→18:55)
[2016-10-17] MEDS ORDERED: SODIUM CHLORIDE 500 ML IV SCH (10:15)
[2016-10-17] MEDS: CARVEDILOL 12.5 MG TABLET (FP) NGT SCH (10:30)
[2016-10-17] MEDS: POLYETHYLENE GLYCOL 3350 119 GM BTL PO SCH (10:34)
[2016-10-17] MEDS: POTASSIUM CHLORIDE ORAL LIQUID 20 MEQ/15 ML PO SCH (10:35)
[2016-10-17] MEDS ORDERED: dilTIAZem HCL 50 MG/10 ML - 10 ML VIAL IVPUSH ONE (10:36)
--- NOTE | 2016-10-17 10:37 | PN ---
Progress Note, Physician History of Present Illness: Extubated on NC, remains in rapid afib, significant diuresis achieved. - Current Medication List Current Medications: Active Medications Acetaminophen (Tylenol -) 650 mg PO Q6H PRN PRN Reason: FEVER OR PAIN Last Admin: 10/13/16 22:53 Dose: 650 mg Albuterol/Ipratropium (Duoneb -) 1 amp NEB Q6H PRN PRN Reason: ASTHMA Amino Acids (Prosource No Carb Liquid Pkt) 30 ml PO BID@0800,1730 [facility] Last Admin: 10/17/16 08:40 Dose: 30 ml Apixaban (Eliquis -) 5 mg PO BID LYNETTE Last Admin: 10/16/16 21:23 Dose: 5 mg Carvedilol (Coreg -) 25 mg NGT BID [facility] Last Admin: 10/16/16 21:23 Dose: 25 mg Chlorhexidine Gluconate (Hibiclens For Decolonization -) 1 applic TP HS [facility] Last Admin: 10/16/16 21:23 Dose: 1 applic Diltiazem HCl 125 mg/ Dextrose 125 mls @ 5 mls/hr IVPB TITR LYNETTE; 5 MG/HR PRN Reason: Protocol Last Admin: 10/16/16 12:32 Dose: 5 mls/hr Sodium Chloride (Normal Saline -) 500 mls @ 50 mls/hr IV ASDIR [facility] Stop: 10/17/16 20:14 Nicotine (Nicoderm Patch -) 21 mg TD DAILY [facility] Last Admin: 10/16/16 10:45 Dose: 21 mg Pantoprazole Sodium (Protonix -) 40 mg PO HS [facility] Last Admin: 10/16/16 21:25 Dose: 40 mg Polyethylene Glycol (Miralax (For Daily Use) -) 17 gm PO BID LYNETTE Last Admin: 10/16/16 21:23 Dose: Not Given Potassium Chloride (Potassium Chloride Oral Liquid) 40 meq PO DAILY [facility] Last Admin: 10/16/16 09:38 Dose: 40 meq Potassium Chloride (K-[place] -) 40 meq PO ONCE ONE Stop: 10/17/16 14:01 Sodium Chloride ([place] Nasal [place] -) 2 spray NS TID PRN PRN Reason: NASAL CONGESTION Last Admin: 10/15/16 12:27 Dose: 2 sprays - Objective Vital Signs: Vital Signs Temperature 99.2 F 10/17/16 06:00 Pulse Rate 128 H 10/17/16 08:00 Respiratory Rate 30 H 10/17/16 09:00 Blood Pressure 116/73 10/17/16 08:00 O2 Sat by Pulse Oximetry (%) 88 L 10/17/16 09:03 Constitutional: Yes: No Distress, Calm Neck: Yes: Supple Cardiovascular: Yes: Tachycardia, Pulse Irregular Respiratory: Yes: Regular, Diminished, On Nasal O2 Gastrointestinal: Yes: Normal Bowel Sounds, Soft, Abdomen, Obese Edema: Yes Edema: LLE: Trace, RLE: Trace Labs: CBC, BMP 10/17/16 08:10 10/17/16 05:15 INR, PTT INR 1.32 (0.82-1.09) H 10/13/16 05:35 - ....Imaging Chest X-ray: Report Reviewed (Unchanged) Problem List - Problems (1) Atrial fibrillation, new onset Code(s): I48.91 - UNSPECIFIED ATRIAL FIBRILLATION (2) Sleep apnea Code(s): G47.30 - SLEEP APNEA, UNSPECIFIED Qualifiers: Sleep apnea type: unspecified type Qualified Code(s): G47.30 - Sleep apnea, unspecified (3) Acute on chronic diastolic (congestive) heart failure Code(s): I50.33 - ACUTE ON CHRONIC DIASTOLIC (CONGESTIVE) HEART FAILURE (4) Acute hypercapnic respiratory failure Code(s): J96.02 - ACUTE RESPIRATORY FAILURE WITH HYPERCAPNIA Assessment/Plan Echocardiography revealed mild to moderate LV systolic dysfunction, moderate TR , RVSP of 30-40 mmHg 1. Acute class III-IV NYHA classification LV failure related to systolic/ diastolic LV dysfunction with pulm HTN resolving, pre-renal azotemia 2. Unclear if ischemic dilated cardiomyopathy vs. idiopathic cardiomyopathy vs. tachycardia induced cardiomyopathy (atrial fibrillation) 3. Post Acute Hypoxic and Hypercapneic Respiratory Failure 4. Persistent atrial fibrillation with periods of rapid ventricular response, [id number] score of 2 5. HTN 6. Hypercholesterolemia 7. Acute renal insufficiency since resolved 8. Polycythmia 9. Thrombocytopenia 10. Obesity suspect OSAS PLAN: 1. Diuresis as needed with monitor diuretic response, renal fxn and electrolytes , replete K 2. Continue Coreg 25 bid and uptitrate Cardizem gtt as hemodynamics permit for rate-control 3. Completed empiric abx course per ID 4. Continue Eliquis 5 bid 5. Ideally should be on ACEI or ARBS once renal fxn stable 6. BD, O2 to keep SpO2 >90%, GI prophylaxis, aspiration precautions, OOB to chair
[2016-10-17] MEDS: DILTIAZEM INJECTION 125 MG in DEXTROSE 5%-WATER - 100 ML IVPB SCH ×3 (10:40→19:02)
[2016-10-17] MEDS: APIXABAN 5 MG TABLET PO SCH (10:41)
[2016-10-17] MEDS: NICOTINE 21 MG/24 HOURS TOPICAL PATCH TD SCH (10:41)
[2016-10-17] MEDS ORDERED: dilTIAZem HCL 125 MG/25 ML - 25 ML VIAL ONE (11:08)
--- NOTE | 2016-10-17 11:30 | PN ---
Physical Exam: SUBJECTIVE: Patient seen and examined patient lying comfortably in bed. denies chest pain HR 120- 140 swelling has decreased on legs, abdomen and scrotum Patient is conscious. no fever recorded will give him cardiazem iv 20 mg push and will increase cardiazem drip to 15 from 10 will give him 50ml/hr fluid max of 1L, Clinicallly patient appers to be intravascular depleted, dark urine, Na increased. OBJECTIVE: Vital Signs Period Temp Pulse Resp BP Sys/Clements Pulse Ox Last 24 Hr 98 F-99.4 F 110-137 22-30 99-142/70-95 88-94 GENERAL: awake, alert on nasal canula. HEAD: Normal with no signs of trauma. EARS, NOSE, THROAT: Ears normal, nares patent, oropharynx clear without exudates. NECK: supple without lymphadenopathy, JVD, or masses. LUNGS: Breath sounds equal bilateral, . No wheezes, HEART: s1s2 normal, hr irregularly irregular ABDOMEN: edema in anterior abdominal wall decreased, scrotum swelling decreased UPPER EXTREMITIES: 2+ pulses, warm, well-perfused. No cyanosis. LOWER EXTREMITIES: 2+ pulses, warm, well-perfused. No calf tenderness. no peripharal edema NEUROLOGICAL: unobtainable SKIN: Warm, dry, Laboratory Results - last 24 hr 10/16/16 10/17/16 10/17/16 15:05 02:52 05:15 WBC RBC Hgb Hct MCV MCHC RDW Plt Count MPV Neutrophils % Lymphocytes % Monocytes % Eosinophils % Basophils % Platelet Estimate Platelet Comment Puncture Site Right radial Md puncture ABG pH 7.49 H 7.50 H ABG pCO2 at Pt Temp 60.3 H* 60.6 H* ABG pO2 at Pt Temp 63.3 L 50.1 L D ABG HCO3 44.9 H* 47.0 H* ABG O2 Sat (Measured) 92.4 85.0 L ABG O2 Content 24.4 H 22.2 H ABG Base Excess 16.6 H* 18.4 H* Ye Test Positive Positive O2 Delivery Device Ventimaqsk Venti mask/n/c Oxygen Flow Rate 50% 50%/6lpm Sodium Potassium Chloride Carbon Dioxide Anion Gap BUN Creatinine Random Glucose Calcium Phosphorus Cancelled Magnesium Cancelled 10/17/16 10/17/16 10/17/16 05:15 05:15 08:10 WBC 18.3 H D 18.6 H RBC 5.71 H 5.73 H Hgb 18.4 H 18.3 H Hct 55.8 H 56.2 H MCV 97.8 H 98.1 H MCHC 32.9 32.5 RDW 15.7 15.2 Plt Count 201 169 MPV 9.9 9.5 Neutrophils % 90.0 H 91.9 H Lymphocytes % 2.1 L D 2.2 L Monocytes % 7.7 5.7 Eosinophils % 0.0 D 0.1 D Basophils % 0.2 0.1 Platelet Estimate Adequate Platelet Comment No clumping noted Puncture Site ABG pH ABG pCO2 at Pt Temp ABG pO2 at Pt Temp ABG HCO3 ABG O2 Sat (Measured) ABG O2 Content ABG Base Excess Ye Test O2 Delivery Device Oxygen Flow Rate Sodium 146 H Potassium 3.4 L Chloride 96 L Carbon Dioxide 41 H Anion Gap 9 BUN 47 H D Creatinine 0.9 Random Glucose 177 H D Calcium 9.7 Phosphorus 3.3 D Magnesium 2.2 Active Medications Generic Name Dose Route Start Last Admin Trade Name Freq PRN Reason Stop Dose Admin Acetaminophen 650 mg 10/10/16 15:28 10/13/16 22:53 Tylenol - PO 650 mg Q6H PRN Administration FEVER OR PAIN Albuterol/Ipratropium 1 amp 10/17/16 07:19 Duoneb - NEB Q6H PRN ASTHMA Amino Acids 30 ml 10/10/16 17:30 10/17/16 08:40 Prosource No Carb Liquid Pkt PO 30 ml BID@0800,1730 LYNETTE Administration Apixaban 5 mg 10/09/16 10:30 10/17/16 10:41 Eliquis - PO 5 mg BID LYNETTE Administration Carvedilol 25 mg 10/16/16 12:18 10/17/16 10:30 Coreg - NGT 25 mg BID LYNETTE Administration Chlorhexidine Gluconate 1 applic 10/05/16 22:00 10/16/16 21:23 Hibiclens For Decolonization - TP 1 applic HS LYNETTE Administration Sodium Chloride 500 mls @ 50 mls/hr 10/17/16 10:15 10/17/16 10:38 Normal Saline - IV 10/17/16 20:14 50 mls/hr ASDIR LYNETTE Administration Diltiazem HCl 125 mg/ Dextrose 125 mls @ 15 mls/hr 10/17/16 10:36 10/17/16 11: 12 IVPB 15 mls/hr TITR LYNETTE Administration Protocol 15 MG/HR Nicotine 21 mg 10/16/16 10:00 10/17/16 10:41 Nicoderm Patch - TD 21 mg DAILY LYNETTE Administration Pantoprazole Sodium 40 mg 10/16/16 22:00 10/16/16 21:25 Protonix - PO 40 mg HS LYNETTE Administration Polyethylene Glycol 17 gm 10/09/16 22:00 10/17/16 10:34 Miralax (For Daily Use) - PO 17 gm BID LYNETTE Administration Potassium Chloride 40 meq 10/08/16 10:00 10/17/16 10:35 Potassium Chloride Oral Liquid PO 40 meq DAILY LYNETTE Administration Potassium Chloride 40 meq 10/17/16 14:00 [place] - PO 10/17/16 14:01 ONCE ONE Sodium Chloride 2 spray 10/15/16 11:18 10/15/16 12:27 [place] Nasal [place] - NS 2 sprays TID PRN Administration NASAL CONGESTION ASSESSMENT/PLAN: Acute exacerbation CHF with hypoxic hypercapnic respiratory failure monitor i/o, maintain negative balance daily weight monitor vitals, follow echo : LV systolic function mild to moderately reduced cxr still has some mild pulmonary edema but could be due to hypoalbunemia also put him on nasal canula keep spo2 > 88 use CPAP in night as patient could have sleep apnea. Fever; no fever over night wbc incresed will send bllod, urine culture, ua. sputum culture id on case: Patient completed a course of zosyn A fib on eliquis on coreg 25 bid and cradiazem drip incresased to 15 cardiology on case hypernatremia could be from over diureses oral water allowed Hypotension keep MAP >65 MONIE ( cardiorenal) - improved - nephrology on case - avoid nephrotoxic drugs - monitor creatinine Hypokalemia and hypomagnesemia improved FEN - on ns 50ml/hr, not more than 1 L -replete lytes, - on soft diet PPX: PPI, eliquis chest physiotherapy, physical therapy Dispo: ICU Visit type - Emergency Visit Emergency Visit: Yes ED Registration Date: 10/05/16 Care time: The patient presented to the Emergency Department on the above date and was hospitalized for further evaluation of their emergent condition. - New Patient This patient is new to me today: No - Critical Care Critical Care patient: Yes Total Critical Care Time (in minutes): 45 Critical Care Statement: The care of this patient involved high complexity decision making to prevent further life threatening deterioration of the patient 's condition and/or to evalute & treat vital organ system(s) failure or risk of failure.
--- NOTE | 2016-10-17 12:43 | PN ---
Progress Note, ONLINE MERCHANDISING MANAGER - Note Progress Note: Selected Entries 10/16/16 10/16/16 10/16/16 02:00 06:00 14:00 Breakfast 75% Lunch 25% Temperature 98.7 F 97.8 F 98.6 F 10/16/16 10/16/16 10/17/16 18:00 22:00 02:00 Breakfast Lunch Temperature 98 F 98.6 F 99.4 F 10/17/16 10/17/16 10/17/16 06:00 09:00 10:00 Breakfast 50% Lunch Temperature 99.2 F 97.8 F On soft, reg diet. RR 28,o2 87 with NC. Intermittent cough. Not overtly aspirating , however, bed side evaluation inconclusive and unreliable. Only accepted 3 bites of baked ziti. Coughing. sob. increased RR. Placed back on VM. Uses cpap at night. May tolerate chopped diet more easily with SOb, with less effort of mastication required. Monitor PO tolerance, indication for MBS. Trial magic cup.
[2016-10-17] MEDS ORDERED: POTASSIUM CHLORIDE TABS 20 MEQ TABLET.ER (FP) PO ONE (14:00)
--- NOTE | 2016-10-17 14:14 | PN ---
Physical Exam: SUBJECTIVE: Patient seen and examined Patient resting in bed, NAD. afebrile and hemodynamically stable. sattign 91% on ventimask 15 L and 88% on NC 4L. A fib rate 130's while on cored 25 bid and cardizem drip at 10. tolerating diet. dark yellow urine, appears dry. Denies chest pain, sob, palpitations, abd pain. Is currently aaox3 but forgetful OBJECTIVE: Vital Signs Period Temp Pulse Resp BP Sys/Clements Pulse Ox Last 24 Hr 97.8 F-99.4 F 110-129 22-30 96-142/54-95 88-94 GENERAL: aaox3, nad HEAD: Normal with no signs of trauma, obese EYES: [place] EOMA EARS, NOSE, THROAT: dry mucous membranes. NECK: supple no JVD LUNGS: reduced breath sounds at bases HEART: tachy, irregular ABDOMEN: smaller, softer, 1+ edema, moderately erythematous, reduced bowel sounds MUSCULOSKELETAL: No bony deformities UPPER EXTREMITIES: 2+ pulses, mild peripheral edema. LOWER EXTREMITIES: 1+ pulses, 1+ pitting edema much improved, skin now wrinkled , chronic stasis dermatitis b/l NEUROLOGICAL: cranial nerves grossly intact PSYCHIATRIC: calm SKIN: Warm, dry Laboratory Results - last 24 hr 10/16/16 10/17/16 10/17/16 15:05 02:52 05:15 WBC RBC Hgb Hct MCV MCHC RDW Plt Count MPV Neutrophils % Lymphocytes % Monocytes % Eosinophils % Basophils % Platelet Estimate Platelet Comment Puncture Site Right radial Md puncture ABG pH 7.49 H 7.50 H ABG pCO2 at Pt Temp 60.3 H* 60.6 H* ABG pO2 at Pt Temp 63.3 L 50.1 L D ABG HCO3 44.9 H* 47.0 H* ABG O2 Sat (Measured) 92.4 85.0 L ABG O2 Content 24.4 H 22.2 H ABG Base Excess 16.6 H* 18.4 H* Ye Test Positive Positive O2 Delivery Device Ventimaqsk Venti mask/n/c Oxygen Flow Rate 50% 50%/6lpm Sodium Potassium Chloride Carbon Dioxide Anion Gap BUN Creatinine Random Glucose Calcium Phosphorus Cancelled Magnesium Cancelled 10/17/16 10/17/16 10/17/16 05:15 05:15 08:10 WBC 18.3 H D 18.6 H RBC 5.71 H 5.73 H Hgb 18.4 H 18.3 H Hct 55.8 H 56.2 H MCV 97.8 H 98.1 H MCHC 32.9 32.5 RDW 15.7 15.2 Plt Count 201 169 MPV 9.9 9.5 Neutrophils % 90.0 H 91.9 H Lymphocytes % 2.1 L D 2.2 L Monocytes % 7.7 5.7 Eosinophils % 0.0 D 0.1 D Basophils % 0.2 0.1 Platelet Estimate Adequate Platelet Comment No clumping noted Puncture Site ABG pH ABG pCO2 at Pt Temp ABG pO2 at Pt Temp ABG HCO3 ABG O2 Sat (Measured) ABG O2 Content ABG Base Excess Ye Test O2 Delivery Device Oxygen Flow Rate Sodium 146 H Potassium 3.4 L Chloride 96 L Carbon Dioxide 41 H Anion Gap 9 BUN 47 H D Creatinine 0.9 Random Glucose 177 H D Calcium 9.7 Phosphorus 3.3 D Magnesium 2.2 Active Medications Generic Name Dose Route Start Last Admin Trade Name Freq PRN Reason Stop Dose Admin Acetaminophen 650 mg 10/10/16 15:28 10/13/16 22:53 Tylenol - PO 650 mg Q6H PRN Administration FEVER OR PAIN Albuterol/Ipratropium 1 amp 10/17/16 07:19 Duoneb - NEB Q6H PRN ASTHMA Amino Acids 30 ml 10/10/16 17:30 10/17/16 08:40 Prosource No Carb Liquid Pkt PO 30 ml BID@0800,1730 LYNETTE Administration Apixaban 5 mg 10/09/16 10:30 10/17/16 10:41 Eliquis - PO 5 mg BID LYNETTE Administration Carvedilol 25 mg 10/16/16 12:18 10/17/16 10:30 Coreg - NGT 25 mg BID LYNETTE Administration Chlorhexidine Gluconate 1 applic 10/05/16 22:00 10/16/16 21:23 Hibiclens For Decolonization - TP 1 applic HS LYNETTE Administration Sodium Chloride 500 mls @ 50 mls/hr 10/17/16 10:15 10/17/16 10:38 Normal Saline - IV 10/17/16 20:14 50 mls/hr ASDIR LYNETTE Administration Diltiazem HCl 125 mg/ Dextrose 125 mls @ 15 mls/hr 10/17/16 10:36 10/17/16 11: 12 IVPB 15 mls/hr TITR LYNETTE Administration Protocol 15 MG/HR Nicotine 21 mg 10/16/16 10:00 10/17/16 10:41 Nicoderm Patch - TD 21 mg DAILY LYNETTE Administration Pantoprazole Sodium 40 mg 10/16/16 22:00 10/16/16 21:25 Protonix - PO 40 mg HS LYNETTE Administration Polyethylene Glycol 17 gm 10/09/16 22:00 10/17/16 10:34 Miralax (For Daily Use) - PO 17 gm BID LYNETTE Administration Potassium Chloride 40 meq 10/08/16 10:00 10/17/16 10:35 Potassium Chloride Oral Liquid PO 40 meq DAILY LYNETTE Administration Sodium Chloride 2 spray 10/15/16 11:18 10/15/16 12:27 [place] Nasal [place] - NS 2 sprays TID PRN Administration NASAL CONGESTION ASSESSMENT/PLAN: This is a 60 yo M every day smoker with PMH of HTN, GERD, and obesity who presents due to testicular swelling x 1 W and worsening SOB. Acute decompensated CHF -NYHA class III-IV -was in severe fluid overload, anasarca -TTE mild/mod reduced EF, mild pulm HTN, RVP 30-40, global mild/mod LV hypokinesis worse than 05/06/16 -CXR AM improved -now milldy volume contracted, this may be contributing to tachycardia; start IVF NS @50 and orally hydrate -cardio on case -coreg to 25bid; up titrate cardizem drip -start areli or entresto when rate controlled -strict I and O -daily weight (232 today) -am xray -tele monitoring a fib -icu monitoring until off cardizem drip Fever -CT chest: goiter, RUL cystic lesion, bibasilar effusions and consolidation -sputum, blood cultures negative -ID consult: finished abx COPD -bicarb 50 -nebs A fib -eliquis MONIE -creat 0.9 at baseline Acute hypoxic respiratory failure -ventimask sat 91% on 15 L, monitor -BIPAP at night for probable sleep apnea FEN -no IVF -replete lytes -chopped diet PPX: PPI, noac Dispo: ICU Problem List - Problems (1) Acute respiratory failure requiring reintubation Code(s): J96.00 - ACUTE RESPIRATORY FAILURE, UNSP W HYPOXIA OR HYPERCAPNIA (2) Atrial fibrillation, new onset Code(s): I48.91 - UNSPECIFIED ATRIAL FIBRILLATION (3) Congestive heart failure (CHF) Code(s): I50.9 - HEART FAILURE, UNSPECIFIED Qualifiers: Congestive heart failure type: combined Congestive heart failure chronicity: acute Qualified Code(s): I50.41 - Acute combined systolic ( congestive) and diastolic (congestive) heart failure (4) Edema of scrotum Code(s): N50.89 - OTHER SPECIFIED DISORDERS OF THE MALE GENITAL ORGANS (5) Lymphedema of both lower extremities Code(s): I89.0 - LYMPHEDEMA, NOT ELSEWHERE CLASSIFIED (6) Morbid obesity Code(s): E66.01 - MORBID (SEVERE) OBESITY DUE TO EXCESS CALORIES (7) Renal insufficiency Code(s): N28.9 - DISORDER OF KIDNEY AND URETER, UNSPECIFIED (8) Sleep apnea Code(s): G47.30 - SLEEP APNEA, UNSPECIFIED Qualifiers: Sleep apnea type: unspecified type Qualified Code(s): G47.30 - Sleep apnea, unspecified (9) Acute kidney injury Code(s): N17.9 - ACUTE KIDNEY FAILURE, UNSPECIFIED (10) Anasarca Code(s): R60.1 - GENERALIZED EDEMA Visit type - Emergency Visit Emergency Visit: Yes ED Registration Date: 10/05/16 Care time: The patient presented to the Emergency Department on the above date and was hospitalized for further evaluation of their emergent condition. - New Patient This patient is new to me today: No - Critical Care Critical Care patient: Yes Total Critical Care Time (in minutes): 46 Critical Care Statement: The care of this patient involved high complexity decision making to prevent further life threatening deterioration of the patient 's condition and/or to evalute & treat vital organ system(s) failure or risk of failure. - Discharge Referral Referred to [facility] No
[2016-10-17] MEDS ORDERED: methylPREDNISolone NA SUCC 125 MG/2 ML VIAL IVPB ONE (14:22)
[2016-10-17] MEDS ORDERED: FUROSEMIDE 40 MG/4 ML INJECTABLE VIAL IVPUSH ONE (14:23)
[2016-10-17] MEDS ORDERED: ALBUTEROL SO4 2.5/IPRATROPIUM 0.5 INH SOL 3 ML VIAL.NEB. NEB ONE (14:23)
[2016-10-17] MEDS ORDERED: methylPREDNISolone NA SUCC 125 MG/2 ML VIAL ONE (14:26)
[2016-10-17] MEDS ORDERED: FUROSEMIDE 40 MG/4 ML INJECTABLE VIAL ONE (14:27)
[2016-10-17 14:44] LABS: ALLENS TEST POSITIVE; ART PUNCT SITE RIGHT RADIAL; ARTERIAL BLD GAS O2 SATURATION 80.8 % (90-98.9); ARTERIAL BLOOD GAS BASE EXCESS 18.7 meq/l (-2-2); ARTERIAL BLOOD GAS HCO3 46.2 meq/L (22-26); ARTERIAL BLOOD GAS pH 7.53 (7.35-7.45); PT. ON O2? YES
[2016-10-17 14:45] LABS: ARTERIAL BLOOD GAS PO2 44.5 mmHg (80-100); LPM/O2% 6L NEB.
[2016-10-17 15:49] LABS: URINE APPEARANCE CLEAR; URINE BILIRUBIN NEGATIVE (NEGATIVE); URINE COLOR AMBER; URINE GLUCOSE (UA) NEGATIVE (NEGATIVE); URINE KETONE NEGATIVE (NEGATIVE); URINE LEUK ESTERASE NEGATIVE (NEGATIVE); URINE NITRITE NEGATIVE (NEGATIVE); URINE UROBILINOGEN NEGATIVE E.U./dl (0.2-1.0)
[2016-10-17 15:50] LABS: URINE BLOOD 2+ (NEGATIVE); URINE PROTEIN 1+ (NEGATIVE)
[2016-10-17 15:51] LABS: URINE MUCUS RARE; URINE RBC 10 /hpf (0-3); URINE WBC 2 /hpf (3-5)
--- NOTE | 2016-10-17 15:55 | PN ---
Teaching Attending Note Name of Resident: Nick Kang ATTENDING PHYSICIAN STATEMENT I saw and evaluated the patient. I reviewed the resident's note and discussed the case with the resident. I agree with the resident's findings and plan as documented. SUBJECTIVE: Patient seen and examined in the ICU. Remains extubated. Awake and responsive on VM O2. Remains mildly confused. Remains in Rapid AFib on 10 mg/hr Cardizem. Intake & Output 10/14/16 10/15/16 10/16/16 10/17/16 23:59 23:59 23:59 23:59 Intake Total 1968.2 5189 495 9608 Output Total 3700 2150 2200 1000 Balance -1731.8 -970 -1350 300 Weight 250 lb 7.122 oz 251 lb 7.122 oz 234 lb 6.4 oz 232 lb Last Vital Signs Temp Pulse Resp BP Pulse Ox 97.8 F 114 H 27 H 96/54 88 L 10/17/16 10:00 10/17/16 11:28 10/17/16 11:28 10/17/16 11:28 10/17/16 09:03 Active Medications Acetaminophen (Tylenol -) 650 mg PO Q6H PRN PRN Reason: FEVER OR PAIN Last Admin: 10/13/16 22:53 Dose: 650 mg Albuterol/Ipratropium (Duoneb -) 1 amp NEB Q6H PRN PRN Reason: ASTHMA Albuterol/Ipratropium (Duoneb -) 1 amp NEB QIDR LYNETTE Amino Acids (Prosource No Carb Liquid Pkt) 30 ml PO BID@0800,1730 [facility] Last Admin: 10/17/16 08:40 Dose: 30 ml Apixaban (Eliquis -) 5 mg PO BID [facility] Last Admin: 10/17/16 10:41 Dose: 5 mg Carvedilol (Coreg -) 25 mg NGT BID [facility] Last Admin: 10/17/16 10:30 Dose: 25 mg Chlorhexidine Gluconate (Hibiclens For Decolonization -) 1 applic TP HS [facility] Last Admin: 10/16/16 21:23 Dose: 1 applic Diltiazem HCl 125 mg/ Dextrose 125 mls @ 15 mls/hr IVPB TITR LYNETTE; 15 MG/HR PRN Reason: Protocol Last Admin: 10/17/16 11:12 Dose: 15 mls/hr Nicotine (Nicoderm Patch -) 21 mg TD DAILY [facility] Last Admin: 10/17/16 10:41 Dose: 21 mg Pantoprazole Sodium (Protonix -) 40 mg PO HS [facility] Last Admin: 10/16/16 21:25 Dose: 40 mg Polyethylene Glycol (Miralax (For Daily Use) -) 17 gm PO BID [facility] Last Admin: 10/17/16 10:34 Dose: 17 gm Potassium Chloride (Potassium Chloride Oral Liquid) 40 meq PO DAILY [facility] Last Admin: 10/17/16 10:35 Dose: 40 meq Sodium Chloride ([place] Nasal [place] -) 2 spray NS TID PRN PRN Reason: NASAL CONGESTION Last Admin: 10/15/16 12:27 Dose: 2 sprays OBJECTIVE: Gen: awake on VM O2, able to answer questions Heart: tachycardic, irregular Lung: scattered rhonchi Abd: soft, nontender Ext: decreasing edema Laboratory Results - last 24 hr 10/17/16 10/17/16 10/17/16 02:52 05:15 05:15 WBC RBC Hgb Hct MCV MCHC RDW Plt Count MPV Neutrophils % Lymphocytes % Monocytes % Eosinophils % Basophils % Platelet Estimate Platelet Comment Puncture Site Md puncture ABG pH 7.50 H ABG pCO2 at Pt Temp 60.6 H* ABG pO2 at Pt Temp 50.1 L D ABG HCO3 47.0 H* ABG O2 Sat (Measured) 85.0 L ABG O2 Content 22.2 H ABG Base Excess 18.4 H* Ye Test Positive O2 Delivery Device Venti mask/n/c Oxygen Flow Rate 50%/6lpm Sodium 146 H Potassium 3.4 L Chloride 96 L Carbon Dioxide 41 H Anion Gap 9 BUN 47 H D Creatinine 0.9 Random Glucose 177 H D Calcium 9.7 Phosphorus Cancelled 3.3 D Magnesium Cancelled 2.2 Urine Color Urine Appearance Urine pH Ur Specific [place] Urine Protein Urine Glucose (UA) Urine Ketones Urine Blood Urine Nitrite Urine Bilirubin Urine Urobilinogen Ur Leukocyte Esterase Urine RBC Urine WBC Ur Epithelial Cells Urine Mucus 10/17/16 10/17/16 10/17/16 05:15 08:10 12:00 WBC 18.3 H D 18.6 H RBC 5.71 H 5.73 H Hgb 18.4 H 18.3 H Hct 55.8 H 56.2 H MCV 97.8 H 98.1 H MCHC 32.9 32.5 RDW 15.7 15.2 Plt Count 201 169 MPV 9.9 9.5 Neutrophils % 90.0 H 91.9 H Lymphocytes % 2.1 L D 2.2 L Monocytes % 7.7 5.7 Eosinophils % 0.0 D 0.1 D Basophils % 0.2 0.1 Platelet Estimate Adequate Platelet Comment No clumping noted Puncture Site ABG pH ABG pCO2 at Pt Temp ABG pO2 at Pt Temp ABG HCO3 ABG O2 Sat (Measured) ABG O2 Content ABG Base Excess Ye Test O2 Delivery Device Oxygen Flow Rate Sodium Potassium Chloride Carbon Dioxide Anion Gap BUN Creatinine Random Glucose Calcium Phosphorus Magnesium Urine Color Mona Urine Appearance Clear Urine pH 5.0 Ur Specific [place] 1.028 Urine Protein 1+ H Urine Glucose (UA) Negative Urine Ketones Negative Urine Blood 2+ H Urine Nitrite Negative Urine Bilirubin Negative Urine Urobilinogen Negative Ur Leukocyte Esterase Negative Urine RBC 10 Urine WBC 2 Ur Epithelial Cells Rare Urine Mucus Rare 10/17/16 14:35 WBC RBC Hgb Hct MCV MCHC RDW Plt Count MPV Neutrophils % Lymphocytes % Monocytes % Eosinophils % Basophils % Platelet Estimate Platelet Comment Puncture Site Right radial ABG pH 7.53 H ABG pCO2 at Pt Temp 56.2 H ABG pO2 at Pt Temp 44.5 L* ABG HCO3 46.2 H* ABG O2 Sat (Measured) 80.8 L ABG O2 Content 19.8 ABG Base Excess 18.7 H* Ye Test Positive O2 Delivery Device Oxygen Flow Rate 6l neb. Sodium Potassium Chloride Carbon Dioxide Anion Gap BUN Creatinine Random Glucose Calcium Phosphorus Magnesium Urine Color Urine Appearance Urine pH Ur Specific [place] Urine Protein Urine Glucose (UA) Urine Ketones Urine Blood Urine Nitrite Urine Bilirubin Urine Urobilinogen Ur Leukocyte Esterase Urine RBC Urine WBC Ur Epithelial Cells Urine Mucus Problem List - Problems (1) Atrial fibrillation, new onset Code(s): I48.91 - UNSPECIFIED ATRIAL FIBRILLATION (2) Congestive heart failure (CHF) Code(s): I50.9 - HEART FAILURE, UNSPECIFIED Qualifiers: Congestive heart failure type: combined Congestive heart failure chronicity: acute Qualified Code(s): I50.41 - Acute combined systolic ( congestive) and diastolic (congestive) heart failure (3) Edema of scrotum Code(s): N50.89 - OTHER SPECIFIED DISORDERS OF THE MALE GENITAL ORGANS (4) Lymphedema of both lower extremities Code(s): I89.0 - LYMPHEDEMA, NOT ELSEWHERE CLASSIFIED (5) Acute respiratory failure requiring reintubation Code(s): J96.00 - ACUTE RESPIRATORY FAILURE, UNSP W HYPOXIA OR HYPERCAPNIA (6) Sleep apnea Code(s): G47.30 - SLEEP APNEA, UNSPECIFIED Qualifiers: Sleep apnea type: unspecified type Qualified Code(s): G47.30 - Sleep apnea, unspecified (7) Renal insufficiency Code(s): N28.9 - DISORDER OF KIDNEY AND URETER, UNSPECIFIED (8) Morbid obesity Code(s): E66.01 - MORBID (SEVERE) OBESITY DUE TO EXCESS CALORIES ASSESSMENT AND PLAN: Acute Hypoxic and Hypercapneic Respiratory Failure Acute on ?Chronic LV Systolic Heart Failure Pulmonary HTN Volume Overload Atrial Fibrillation with RVR Acute Kidney Injury Hyperthyroidism Fevers - r/o Pneumonia - completed antibiotic course - Daily assessment for Lasix - monitor urine output, creatinine - daily weights, I/Os - rate control per cardiology -> on Cardizem drip - continue anticoagulation - inhaled bronchodilators - O2 to keep SpO2 >90% - PO as tolerated - aspiration precautions - DVT/GI prophylaxis - continue ICU monitoring due to tenuous respiratory status Dr Sanz Critical care time spent reviewing chart, evaluating patient and formulating plan 35 min Problem List - Problems (1) Atrial fibrillation, new onset Code(s): I48.91 - UNSPECIFIED ATRIAL FIBRILLATION (2) Congestive heart failure (CHF) Code(s): I50.9 - HEART FAILURE, UNSPECIFIED Qualifiers: Congestive heart failure type: combined Congestive heart failure chronicity: acute Qualified Code(s): I50.41 - Acute combined systolic ( congestive) and diastolic (congestive) heart failure (3) Edema of scrotum Code(s): N50.89 - OTHER SPECIFIED DISORDERS OF THE MALE GENITAL ORGANS (4) Lymphedema of both lower extremities Code(s): I89.0 - LYMPHEDEMA, NOT ELSEWHERE CLASSIFIED (5) Acute respiratory failure requiring reintubation Code(s): J96.00 - ACUTE RESPIRATORY FAILURE, UNSP W HYPOXIA OR HYPERCAPNIA (6) Sleep apnea Code(s): G47.30 - SLEEP APNEA, UNSPECIFIED Qualifiers: Sleep apnea type: unspecified type Qualified Code(s): G47.30 - Sleep apnea, unspecified (7) Renal insufficiency Code(s): N28.9 - DISORDER OF KIDNEY AND URETER, UNSPECIFIED (8) Morbid obesity Code(s): E66.01 - MORBID (SEVERE) OBESITY DUE TO EXCESS CALORIES
--- NOTE | 2016-10-17 16:30 | PN ---
Teaching Attending Note Name of Resident: Hillary Reyes ATTENDING PHYSICIAN STATEMENT I saw and evaluated the patient. I reviewed the resident's note and discussed the case with the resident. I agree with the resident's findings and plan as documented. Patient is feeling better but still hypoxic off VM Vital Signs Temperature 97.8 F 10/17/16 10:00 Pulse Rate 114 H 10/17/16 11:28 Respiratory Rate 27 H 10/17/16 11:28 Blood Pressure 96/54 10/17/16 11:28 O2 Sat by Pulse Oximetry (%) 88 L 10/17/16 09:03 CBCD WBC 18.6 K/mm3 (4.0-10.0) H 10/17/16 08:10 RBC 5.73 M/mm3 (4.00-5.60) H 10/17/16 08:10 Hgb 18.3 GM/dL (11.7-16.9) H 10/17/16 08:10 Hct 56.2 % (35.4-49) H 10/17/16 08:10 MCV 98.1 fl (80-96) H 10/17/16 08:10 MCHC 32.5 g/dl (32.0-35.9) 10/17/16 08:10 RDW 15.2 % (11.9-15.9) 10/17/16 08:10 Plt Count 169 K/MM3 (134-434) 10/17/16 08:10 MPV 9.5 fl (7.5-11.1) 10/17/16 08:10 CMP Sodium 146 mmol/L (136-145) H 10/17/16 05:15 Potassium 3.4 mmol/L (3.5-5.1) L 10/17/16 05:15 Chloride 96 mmol/L (98-107) L 10/17/16 05:15 Carbon Dioxide 41 mmol/L (21-32) H 10/17/16 05:15 Anion Gap 9 (8-16) 10/17/16 05:15 BUN 47 mg/dL (7-18) H D 10/17/16 05:15 Creatinine 0.9 mg/dL (0.7-1.3) 10/17/16 05:15 Creat Clearance w eGFR > 60 (>60) 10/16/16 05:15 Random Glucose 177 mg/dL (74-106) H D 10/17/16 05:15 Calcium 9.7 mg/dL (8.5-10.1) 10/17/16 05:15 Total Bilirubin 3.2 mg/dL (0.2-1.0) H 10/16/16 05:15 AST 30 U/L (15-37) 10/16/16 05:15 ALT 35 U/L (12-78) 10/16/16 05:15 Alkaline Phosphatase 76 U/L (45-117) 10/16/16 05:15 Total Protein 6.3 g/dl (6.4-8.2) L 10/16/16 05:15 Albumin 2.9 g/dl (3.4-5.0) L 10/16/16 05:15 CARDIAC ENZYMES Creatine Kinase 493 IU/L (39-308) H D 10/07/16 05:55 Troponin I < 0.02 ng/ml (0.00-0.05) 10/07/16 05:55 Current Medications Generic Name Dose Route Start Last Admin Trade Name Freq PRN Reason Stop Dose Admin Acetaminophen 650 mg 10/10/16 15:28 10/13/16 22:53 Tylenol - PO 650 mg Q6H PRN Administration FEVER OR PAIN Albuterol/Ipratropium 1 amp 10/17/16 07:19 Duoneb - NEB Q6H PRN ASTHMA Albuterol/Ipratropium 1 amp 10/17/16 18:00 Duoneb - NEB QIDR LYNETTE Amino Acids 30 ml 10/10/16 17:30 10/17/16 08:40 Prosource No Carb Liquid Pkt PO 30 ml BID@0800,1730 LYNETTE Administration Apixaban 5 mg 10/09/16 10:30 10/17/16 10:41 Eliquis - PO 5 mg BID LYNETTE Administration Carvedilol 25 mg 10/16/16 12:18 10/17/16 10:30 Coreg - NGT 25 mg BID LYNETTE Administration Chlorhexidine Gluconate 1 applic 10/05/16 22:00 10/16/16 21:23 Hibiclens For Decolonization - TP 1 applic HS LYNETTE Administration Diltiazem HCl 125 mg/ Dextrose 125 mls @ 15 mls/hr 10/17/16 10:36 10/17/16 11: 12 IVPB 15 mls/hr TITR LYNETTE Administration Protocol 15 MG/HR Nicotine 21 mg 10/16/16 10:00 10/17/16 10:41 Nicoderm Patch - TD 21 mg DAILY LYNETTE Administration Pantoprazole Sodium 40 mg 10/16/16 22:00 10/16/16 21:25 Protonix - PO 40 mg HS LYNETTE Administration Polyethylene Glycol 17 gm 10/09/16 22:00 10/17/16 10:34 Miralax (For Daily Use) - PO 17 gm BID LYNETTE Administration Potassium Chloride 40 meq 10/08/16 10:00 10/17/16 10:35 Potassium Chloride Oral Liquid PO 40 meq DAILY LYNETTE Administration Sodium Chloride 2 spray 10/15/16 11:18 10/15/16 12:27 [place] Nasal [place] - NS 2 sprays TID PRN Administration NASAL CONGESTION Home Medications Medication Instructions Recorded Bystolic 10 mg PO DAILY 05/01/16 Hydrochlorothiazide 12.5 mg PO DAILY 05/01/16 Pantoprazole Sodium [Protonix -] 1 tab PO DAILY 05/19/16 Amlodipine/Valsartan [[place]forge 1 tab PO DAILY 10/05/16 5-160 mg Tablet] Ascorbate Calcium [Vitamin C] 1,000 mg PO DAILY 10/05/16 Aspirin [ASA -] 81 mg PO DAILY 10/05/16 Felch-3/Dha/Epa/Fish Oil [Felch 3 350 mg PO DAILY 10/05/16 500 Softgel] Sulfamethoxazole/Trimethoprim 1 each PO BID 10/05/16 [Bactrim Ds Tablet] CVS: Irregularly-irreg. 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
--- NOTE | 2016-10-17 16:48 | PN ---
Progress Note, Physician History of Present Illness: Pt seen and examined at bedside. He is more alert than he was yesterday. He feels that his breathing is easier today. He denies chest pain. - Current Medication List Current Medications: Active Medications Acetaminophen (Tylenol -) 650 mg PO Q6H PRN PRN Reason: FEVER OR PAIN Last Admin: 10/13/16 22:53 Dose: 650 mg Albuterol/Ipratropium (Duoneb -) 1 amp NEB Q6H PRN PRN Reason: ASTHMA Albuterol/Ipratropium (Duoneb -) 1 amp NEB QIDR [facility]NETTE Amino Acids (Prosource No Carb Liquid Pkt) 30 ml PO BID@0800,1730 [facility] Last Admin: 10/17/16 08:40 Dose: 30 ml Apixaban (Eliquis -) 5 mg PO BID [facility] Last Admin: 10/17/16 10:41 Dose: 5 mg Carvedilol (Coreg -) 25 mg NGT BID [facility] Last Admin: 10/17/16 10:30 Dose: 25 mg Chlorhexidine Gluconate (Hibiclens For Decolonization -) 1 applic TP HS [facility] Last Admin: 10/16/16 21:23 Dose: 1 applic Diltiazem HCl 125 mg/ Dextrose 125 mls @ 15 mls/hr IVPB TITR LYNETTE; 15 MG/HR PRN Reason: Protocol Last Admin: 10/17/16 11:12 Dose: 15 mls/hr Nicotine (Nicoderm Patch -) 21 mg TD DAILY [facility] Last Admin: 10/17/16 10:41 Dose: 21 mg Pantoprazole Sodium (Protonix -) 40 mg PO HS [facility] Last Admin: 10/16/16 21:25 Dose: 40 mg Polyethylene Glycol (Miralax (For Daily Use) -) 17 gm PO BID [facility] Last Admin: 10/17/16 10:34 Dose: 17 gm Potassium Chloride (Potassium Chloride Oral Liquid) 40 meq PO DAILY [facility] Last Admin: 10/17/16 10:35 Dose: 40 meq Sodium Chloride ([place] Nasal [place] -) 2 spray NS TID PRN PRN Reason: NASAL CONGESTION Last Admin: 10/15/16 12:27 Dose: 2 sprays - Objective Vital Signs: Vital Signs Temperature 97.8 F 10/17/16 10:00 Pulse Rate 114 H 04/14/17 11:28 Respiratory Rate 27 H 10/17/16 11:28 Blood Pressure 96/54 10/17/16 11:28 O2 Sat by Pulse Oximetry (%) 93 L 10/17/16 15:10 Constitutional: Yes: Calm Eyes: Yes: Conjunctiva Clear HENT: Yes: Atraumatic Cardiovascular: Yes: S1, S2 Respiratory: Yes: CTA Bilaterally Gastrointestinal: Yes: Soft, Abdomen, Obese Genitourinary: Yes: Hilario Present Musculoskeletal: Yes: Muscle Weakness Edema: Yes Edema: LLE: 2+, RLE: 2+ Neurological: Yes: Oriented Labs: CBC, BMP 10/17/16 08:10 10/17/16 05:15 INR, PTT INR 1.32 (0.82-1.09) H 10/13/16 05:35 Problem List - Problems (1) Acute kidney injury Code(s): N17.9 - ACUTE KIDNEY FAILURE, UNSPECIFIED (2) Anasarca Code(s): R60.1 - GENERALIZED EDEMA (3) Congestive heart failure (CHF) Code(s): I50.9 - HEART FAILURE, UNSPECIFIED Qualifiers: Congestive heart failure type: combined Congestive heart failure chronicity: acute Qualified Code(s): I50.41 - Acute combined systolic ( congestive) and diastolic (congestive) heart failure (4) Morbid obesity Code(s): E66.01 - MORBID (SEVERE) OBESITY DUE TO EXCESS CALORIES (5) Renal insufficiency Code(s): N28.9 - DISORDER OF KIDNEY AND URETER, UNSPECIFIED Assessment/Plan Current Medications Generic Name Dose Route Start Last Admin Trade Name Freq PRN Reason Stop Dose Admin Acetaminophen 650 mg 10/10/16 15:28 10/13/16 22:53 Tylenol - PO 650 mg Q6H PRN Administration FEVER OR PAIN Albuterol/Ipratropium 1 amp 10/17/16 07:19 Duoneb - NEB Q6H PRN ASTHMA Albuterol/Ipratropium 1 amp 10/17/16 18:00 Duoneb - NEB QIDR LYNETTE Amino Acids 30 ml 10/10/16 17:30 10/17/16 08:40 Prosource No Carb Liquid Pkt PO 30 ml BID@0800,1730 LYNETTE Administration Apixaban 5 mg 10/09/16 10:30 10/17/16 10:41 Eliquis - PO 5 mg BID LYNETTE Administration Carvedilol 25 mg 10/16/16 12:18 10/17/16 10:30 Coreg - NGT 25 mg BID LYNETTE Administration Chlorhexidine Gluconate 1 applic 10/05/16 22:00 10/16/16 21:23 Hibiclens For Decolonization - TP 1 applic HS LYNETTE Administration Diltiazem HCl 125 mg/ Dextrose 125 mls @ 15 mls/hr 10/17/16 10:36 10/17/16 11: 12 IVPB 15 mls/hr TITR LYNETTE Administration Protocol 15 MG/HR Nicotine 21 mg 10/16/16 10:00 10/17/16 10:41 Nicoderm Patch - TD 21 mg DAILY LYNETTE Administration Pantoprazole Sodium 40 mg 10/16/16 22:00 10/16/16 21:25 Protonix - PO 40 mg HS LYNETTE Administration Polyethylene Glycol 17 gm 10/09/16 22:00 10/17/16 10:34 Miralax (For Daily Use) - PO 17 gm BID LYNETTE Administration Potassium Chloride 40 meq 10/08/16 10:00 10/17/16 10:35 Potassium Chloride Oral Liquid PO 40 meq DAILY LYNETTE Administration Sodium Chloride 2 spray 10/15/16 11:18 10/15/16 12:27 [place] Nasal [place] - NS 2 sprays TID PRN Administration NASAL CONGESTION Impression 1. Azotemia 2. CHF acute 3. acute resp failure requiring intubation 4. new onset atrial fibrillation 5. hx of htn 6. obesity 7. chronic smoker 8. hypokalemia Plan - will continue to monitor renal function - pt was on PO lasix at home before admission - monitor pulse ox - replace potassium - cxr reviewed - will follow - smoking cessation Dr Delacruz
[2016-10-17] MEDS ORDERED: METOPROLOL TARTRATE 25 MG TABLET (FP) ONE ×2 (18:21→18:22)
[2016-10-17] MEDS: METOPROLOL TARTRATE 50 MG TABLET (FP) PO SCH (18:32)
[2016-10-18] MEDS: APIXABAN 5 MG TABLET PO SCH ×3 (00:01→21:47)
[2016-10-18] MEDS: CHLORHEXIDINE GLUCONATE 4% CLEANSER FOR DECOLONIZATION TP SCH ×2 (00:02→21:47)
[2016-10-18] MEDS: METOPROLOL TARTRATE 50 MG TABLET (FP) PO SCH ×3 (00:02→21:45)
[2016-10-18] MEDS: PANTOPRAZOLE 40 MG TABLET (FP) PO SCH ×2 (00:02→21:45)
[2016-10-18] MEDS: POLYETHYLENE GLYCOL 3350 119 GM BTL PO SCH ×3 (00:02→21:57)
[2016-10-18 06:30] LABS: BASOPHIL 0.2 % (0-2.0); MCH 32.4 pg (25.7-33.7); MCHC 33.2 g/dl (32.0-35.9); MEAN CELL VOLUME 97.7 fl (80-96); MEAN PLT VOLUME 10.1 fl (7.5-11.1); PLATELET COUNT 185 K/MM3 (134-434); RDW 15.3 % (11.9-15.9); WHITE BLOOD COUNT 12.5 K/mm3 (4.0-10.0)
[2016-10-18] MEDS: ALBUTEROL SO4 2.5/IPRATROPIUM 0.5 INH SOL 3 ML VIAL.NEB. NEB SCH ×4 (06:31→23:36)
[2016-10-18 06:53] LABS: CALCIUM 8.7 mg/dL (8.5-10.1); MAGNESIUM 2.1 mg/dL (1.8-2.4)
[2016-10-18 06:55] LABS: COCKROFT - GAULT 93.74; CREATININE 1.2 mg/dL (0.7-1.3); PHOSPHOROUS 4.3 mg/dL (2.5-4.9)
--- NOTE | 2016-10-18 08:05 | PN ---
Progress Note, Physician Chief Complaint: ID Received 7 days of zosyn recently stopped Intermittent low grade fevers - Current Medication List Current Medications: Active Medications Acetaminophen (Tylenol -) 650 mg PO Q6H PRN PRN Reason: FEVER OR PAIN Last Admin: 10/13/16 22:53 Dose: 650 mg Albuterol/Ipratropium (Duoneb -) 1 amp NEB Q6H PRN PRN Reason: ASTHMA Albuterol/Ipratropium (Duoneb -) 1 amp NEB QIDR [facility] Last Admin: 10/18/16 06:31 Dose: 1 amp Amino Acids (Prosource No Carb Liquid Pkt) 30 ml PO BID@0800,1730 [facility] Last Admin: 10/17/16 19:00 Dose: 30 ml Apixaban (Eliquis -) 5 mg PO BID [facility] Last Admin: 10/18/16 00:01 Dose: Not Given Chlorhexidine Gluconate (Hibiclens For Decolonization -) 1 applic TP HS [facility] Last Admin: 10/18/16 00:02 Dose: 1 applic Diltiazem HCl 125 mg/ Dextrose 125 mls @ 15 mls/hr IVPB TITR LYNETTE; 15 MG/HR PRN Reason: Protocol Last Admin: 10/17/16 19:02 Dose: 15 mls/hr Metoprolol Tartrate (Lopressor -) 50 mg PO BID [facility] Last Admin: 10/18/16 00:02 Dose: Not Given Nicotine (Nicoderm Patch -) 21 mg TD DAILY [facility] Last Admin: 10/17/16 10:41 Dose: 21 mg Pantoprazole Sodium (Protonix -) 40 mg PO HS [facility] Last Admin: 10/18/16 00:02 Dose: Not Given Polyethylene Glycol (Miralax (For Daily Use) -) 17 gm PO BID [facility] Last Admin: 10/18/16 00:02 Dose: Not Given Potassium Chloride (Potassium Chloride Oral Liquid) 40 meq PO DAILY [facility] Last Admin: 10/17/16 10:35 Dose: 40 meq Sodium Chloride ([place] Nasal [place] -) 2 spray NS TID PRN PRN Reason: NASAL CONGESTION Last Admin: 10/15/16 12:27 Dose: 2 sprays - Objective Vital Signs: Vital Signs Temperature 100.2 F H 10/18/16 06:00 Pulse Rate 108 H 10/18/16 06:00 Respiratory Rate 24 10/18/16 06:00 Blood Pressure 95/57 10/18/16 06:00 O2 Sat by Pulse Oximetry (%) 97 10/18/16 07:47 Cardiovascular: Yes: Regular Rate and Rhythm, S1, S2 Respiratory: Yes: WNL, CTA Bilaterally, Rhonchi Gastrointestinal: Yes: WNL, Normal Bowel Sounds, Soft. No: Tenderness, Tenderness, Rebound Edema: No Labs: CBC, BMP 10/18/16 05:35 10/18/16 05:35 INR, PTT INR 1.32 (0.82-1.09) H 10/13/16 05:35 Assessment/Plan Microbiology 10/13/16 12:00 Sputum - Endotrachea Suction/Ventilator Gram Stain - Final 10/13/16 12:00 Sputum - Endotrachea Suction/Ventilator Sputum Culture - Final [facility] Laboratory Tests 10/13/16 10/17/16 10/18/16 09:11 14:35 05:35 WBC 12.5 H D Hgb 15.3 D Hct 46.2 D Plt Count 185 ABG pH 7.53 H ABG pO2 at Pt Temp 44.5 L* BUN HIV 1&2 Antibody Screen Negative HIV P24 Antigen Negative 10/18/16 05:35 WBC Hgb Hct Plt Count ABG pH ABG pO2 at Pt Temp BUN 81 H D HIV 1&2 Antibody Screen HIV P24 Antigen Assessment Respiratory failure Difficult to determine pneumonia vs failure Large pleural effusions on recent CT scan Despite antibiotics still had low grade temps BP currently 80 systolic. Possibility of sepsis considered. again Plan Cultures sent Vanco and Cefepime to be started Lactic acid ESR and CRP Discussed [facility]rea cardiology Tucker MCDANIEL
--- NOTE | 2016-10-18 08:12 | PN ---
Progress Note (short form) - Note Progress Note: Chief Complaint: Events noted, notes reviewed, lethargic on BiPAP, remains in atrial fibrillation with periods of rapid ventricular response, ABG from yesterday noted History of Present Illness: Seen and examined in the ICU. Events noted, notes reviewed, lethargic on BiPAP, remains in atrial fibrillation with periods of rapid ventricular response, ABG from yesterday noted Chest x-ray from this AM noted worsening infiltrates, Consideration for proceeding with RH cath/Cabins-Belle catheter insertion to guide therapy considering worsening respiratory status with hypoxia Echocardiography revealed mild to moderate LV systolic dysfunction, moderate TR , RVSP of 30-40 mmHg Medications: Current Medications Acetaminophen (Tylenol -) 650 mg PO Q6H PRN PRN Reason: FEVER OR PAIN Last Admin: 10/13/16 22:53 Dose: 650 mg Albuterol/Ipratropium (Duoneb -) 1 amp NEB Q6H PRN PRN Reason: ASTHMA Albuterol/Ipratropium (Duoneb -) 1 amp NEB QIDR [facility] Last Admin: 10/18/16 06:31 Dose: 1 amp Amino Acids (Prosource No Carb Liquid Pkt) 30 ml PO BID@0800,1730 [facility] Last Admin: 10/17/16 19:00 Dose: 30 ml Apixaban (Eliquis -) 5 mg PO BID [facility] Last Admin: 10/18/16 00:01 Dose: Not Given Chlorhexidine Gluconate (Hibiclens For Decolonization -) 1 applic TP [facility] Last Admin: 10/18/16 00:02 Dose: 1 applic Diltiazem HCl 125 mg/ Dextrose 125 mls @ 15 mls/hr IVPB TITR LYNETTE; 15 MG/HR PRN Reason: Protocol Last Admin: 10/17/16 19:02 Dose: 15 mls/hr Metoprolol Tartrate (Lopressor -) 50 mg PO BID [facility] Last Admin: 10/18/16 00:02 Dose: Not Given Nicotine (Nicoderm Patch -) 21 mg TD DAILY [facility] Last Admin: 10/17/16 10:41 Dose: 21 mg Pantoprazole Sodium (Protonix -) 40 mg PO HS [facility] Last Admin: 10/18/16 00:02 Dose: Not Given Polyethylene Glycol (Miralax (For Daily Use) -) 17 gm PO BID [facility] Last Admin: 10/18/16 00:02 Dose: Not Given Potassium Chloride (Potassium Chloride Oral Liquid) 40 meq PO DAILY [facility] Last Admin: 10/17/16 10:35 Dose: 40 meq Sodium Chloride ([place] Nasal [place] -) 2 spray NS TID PRN PRN Reason: NASAL CONGESTION Last Admin: 10/15/16 12:27 Dose: 2 sprays Review of Systems Unable to Obtain Vital Signs: Last Vital Signs Temp Pulse Resp BP Pulse Ox 100.2 F H 108 H 24 95/57 92 L 10/18/16 06:00 10/18/16 06:00 10/18/16 06:00 10/18/16 06:00 10/18/16 03:39 Intake & Output 10/15/16 10/16/16 10/17/16 10/18/16 23:59 23:59 23:59 23:59 Intake Total 9928 623 2008 Output Total 2150 2200 1000 900 Balance -970 -1350 1545 -900 Weight 251 lb 7.122 oz 234 lb 6.4 oz 232 lb 231 lb 14.4 oz Neck: Supple Negative JVD Respiratory: Diminished Breath Sounds at the Bases Cardiovascular: S1 S2 Irregularly Irregular Gastrointestinal: Soft Benign Normal Bowel Sounds Ext: 1+ Edema Bilaterally Labs: CBC, BMP 10/18/16 05:35 10/18/16 05:35 Assessment/Plan ASSESSMENT: 1. Post acute class III-IV NYHA classification LV failure related to systolic/ diastolic LV dysfunction, respiratory failure on BiPAP, resolved, currently pre- renal azotemia, persistent pulmonary infiltrates etiology to be determined infectious vs. non cardiogenic pulmonary edema 2. Unclear if ischemic dilated cardiomyopathy vs. ideopathic cardiomyopathy vs. tachycardia induced cardiomyopathy (atrial fibrillation) 3. CAD angina pectoris to be excluded 4. Persistent atrial fibrillation with periods of rapid ventricular response, [id number] score of 2 5. HTN, hypotensive 6. Hypercholesterolemia 7. Acute renal insufficiency, pre-renal azotemia 8. Polycythmia 9. Thrombocytopenia, resolved PLAN: 1. Continue to hold Lasix, fluid challenge for hypotension with NS 2. Continue Lopressor with caution, hemodynamics permitting 3. May have to utilize prn Cardizem for additional atrial fibrillation rate control, hemodynamics permitting 4. Continue NOAC's, Eliquis 5. F/U ABG this AM 6. As outlined above consideration for proceeding with RH cath/Cabins-Belle catheter insertion to guide therapy considering worsening respiratory status with hypoxia Bran Carlin MD
[2016-10-18] MEDS ORDERED: SODIUM CHLORIDE 500 ML IV STA (08:18)
[2016-10-18 08:35] LABS: ARTERIAL BLD GAS O2 SATURATION 99.4 % (90-98.9); ARTERIAL BLOOD GAS BASE EXCESS 9.4 meq/l (-2-2); ARTERIAL BLOOD GAS pH 7.46 (7.35-7.45)
[2016-10-18 08:37] LABS: ALLENS TEST POSITIVE; ART PUNCT SITE RIGHT RADIAL; LPM/O2% 100; PT. ON O2? YES; TYPE OF O2 BIPAP; VENT RATE 14; VT/PRESS IPAP 16 EPAP 8
[2016-10-18 08:38] LABS: ARTERIAL BLOOD GAS HCO3 34.7 meq/L (22-26)
[2016-10-18 09:16] LABS: C-REACTIVE PROTEIN 9.5 MG/DL (0.00-0.3)
[2016-10-18] MEDS ORDERED: PT OWN MED DRAWER 7, Y5N ONE ×2 (09:20→21:47)
[2016-10-18] MEDS: NICOTINE 21 MG/24 HOURS TOPICAL PATCH TD SCH (09:25)
--- NOTE | 2016-10-18 10:00 | PN ---
Progress Note (short form) - Note Progress Note: PULMONARY/CCM Pt seen and examined in the ICU. Lethargic but arousable on BiPAP FiO2 100%. Low grade temps overnight. Last Vital Signs Temp Pulse Resp BP Pulse Ox 100.2 F H 94 H 24 76/56 97 10/18/16 06:00 10/18/16 08:00 10/18/16 08:40 10/18/16 08:00 10/18/16 08:40 Intake & Output 10/15/16 10/16/16 10/17/16 10/18/16 23:59 23:59 23:59 23:59 Intake Total 2104 067 1359 Output Total 2150 2200 1000 900 Balance -970 -1350 1545 -900 Weight 251 lb 7.122 oz 234 lb 6.4 oz 232 lb 231 lb 14.4 oz Gen: lethargic but arousable Heart: RRR Lung: scattered rhonchi Abd: soft, nontender Ext: decreasing edema CBC, BMP 10/18/16 05:35 10/18/16 05:35 Active Medications Acetaminophen (Tylenol -) 650 mg PO Q6H PRN PRN Reason: FEVER OR PAIN Last Admin: 10/13/16 22:53 Dose: 650 mg Albuterol/Ipratropium (Duoneb -) 1 amp NEB Q6H PRN PRN Reason: ASTHMA Albuterol/Ipratropium (Duoneb -) 1 amp NEB QIDR [facility] Last Admin: 10/18/16 06:31 Dose: 1 amp Amino Acids (Prosource No Carb Liquid Pkt) 30 ml PO BID@0800,1730 [facility] Last Admin: 10/17/16 19:00 Dose: 30 ml Apixaban (Eliquis -) 5 mg PO BID [facility] Last Admin: 10/18/16 00:01 Dose: Not Given Cefepime HCl (Maxipime 2gm Ivpb (Pre-Docked)) 2 gm IVPB Q8H-IV LYNETTE PRN Reason: Protocol Chlorhexidine Gluconate (Hibiclens For Decolonization -) 1 applic TP HS [facility] Last Admin: 10/18/16 00:02 Dose: 1 applic Diltiazem HCl 125 mg/ Dextrose 125 mls @ 15 mls/hr IVPB TITR LYNETTE; 15 MG/HR PRN Reason: Protocol Last Admin: 10/17/16 19:02 Dose: 15 mls/hr Vancomycin HCl 1,250 mg/ (Dextrose) 250 mls @ 125 mls/hr IVPB DAILY [facility] PRN Reason: Protocol Metoprolol Tartrate (Lopressor -) 50 mg PO BID [facility] Last Admin: 10/18/16 09:25 Dose: Not Given Nicotine (Nicoderm Patch -) 21 mg TD DAILY [facility] Last Admin: 10/18/16 09:25 Dose: 21 mg Pantoprazole Sodium (Protonix -) 40 mg PO HS [facility] Last Admin: 10/18/16 00:02 Dose: Not Given Polyethylene Glycol (Miralax (For Daily Use) -) 17 gm PO BID [facility] Last Admin: 10/18/16 09:25 Dose: Not Given Potassium Chloride (Potassium Chloride Oral Liquid) 40 meq PO DAILY [facility] Last Admin: 10/17/16 10:35 Dose: 40 meq Sodium Chloride ([place] Nasal [place] -) 2 spray NS TID PRN PRN Reason: NASAL CONGESTION Last Admin: 10/15/16 12:27 Dose: 2 sprays A/P Acute Hypoxic and Hypercapneic Respiratory Failure Acute on ?Chronic LV Systolic Heart Failure Pulmonary HTN Volume Overload Atrial Fibrillation with RVR Acute Kidney Injury Hyperthyroidism Fevers - r/o Pneumonia - antibiotics per ID - IVF boluses PRN - monitor urine output, creatinine - daily weights, I/Os - rate control per cardiology - continue anticoagulation - inhaled bronchodilators - O2 to keep SpO2 >90% - PO as tolerated - aspiration precautions - DVT/GI prophylaxis - continue ICU monitoring due to tenuous respiratory status critical care time spent reviewing chart, evaluating patient and formulating plan 35 min
[2016-10-18] MEDS: CEFEPIME 2 GM/100 ML BAG PRE-DOCKED IVPB SCH ×2 (10:38→18:20)
[2016-10-18] MEDS: AMINO ACIDS/PROTEIN HYDROLYS 30 ML LIQUID.PKT PO SCH ×2 (10:39→21:57)
[2016-10-18] MEDS: VANCOMYCIN 1,250 MG in DEXTROSE 5%-WATER - 250 ML IVPB SCH (10:40)
--- NOTE | 2016-10-18 12:26 | PN ---
Progress Note (short form) - Note Progress Note: Events noted noted reviewed Pt on BIPAP now Vital Signs Period Temp Pulse Resp BP Sys/Clements Pulse Ox Last 24 Hr 97.5 F-100.8 F 94-123 22-34 76-117/51-94 83-97 PE: On BIPAP, drowsy, Neck:Supple Lungs: CTA Abd: Benign CVS: S1S2 Ext: stasis changes, edema present Neuro: opens eyes to stimuli CMP Sodium 146 mmol/L (136-145) H 10/18/16 05:35 Potassium 3.6 mmol/L (3.5-5.1) 10/18/16 05:35 Chloride 99 mmol/L (98-107) 10/18/16 05:35 Carbon Dioxide 41 mmol/L (21-32) H 10/18/16 05:35 Anion Gap 6 (8-16) L 10/18/16 05:35 BUN 81 mg/dL (7-18) H D 10/18/16 05:35 Creatinine 1.2 mg/dL (0.7-1.3) D 10/18/16 05:35 Creat Clearance w eGFR > 60 (>60) 10/16/16 05:15 Random Glucose 162 mg/dL (74-106) H 10/18/16 05:35 Lactic Acid 1.162 mmol/L (0.4-2.0) 10/06/16 05:20 Calcium 8.7 mg/dL (8.5-10.1) 10/18/16 05:35 Phosphorus 4.3 mg/dL (2.5-4.9) D 10/18/16 05:35 Magnesium 2.1 mg/dL (1.8-2.4) 10/18/16 05:35 Total Bilirubin 3.2 mg/dL (0.2-1.0) H 10/16/16 05:15 AST 30 U/L (15-37) 10/16/16 05:15 ALT 35 U/L (12-78) 10/16/16 05:15 Alkaline Phosphatase 76 U/L (45-117) 10/16/16 05:15 Creatine Kinase 493 IU/L (39-308) H D 10/07/16 05:55 Creatine Kinase Index 0.7 % (0.0-5.0) 10/07/16 05:55 CK-MB (CK-2) 3.259 ng/ml (0.5-3.6) 10/07/16 05:55 CK-MB (CK-2) Rel Index Cancelled 10/05/16 11:20 Troponin I < 0.02 ng/ml (0.00-0.05) 10/07/16 05:55 C-Reactive Protein 9.5 MG/DL (0.00-0.3) H D 10/18/16 05:35 B-Natriuretic Peptide 1613.37 pg/ml (5-125) H 10/05/16 11:20 Total Protein 6.3 g/dl (6.4-8.2) L 10/16/16 05:15 Albumin 2.9 g/dl (3.4-5.0) L 10/16/16 05:15 Triglycerides 140 mg/dL (35-160) D 10/08/16 05:20 Cholesterol 112 mg/dL (50-200) 10/08/16 05:20 Total LDL Cholesterol 78 mg/dL (5-100) 10/08/16 05:20 HDL Cholesterol 28 mg/dL (40-60) L D 10/08/16 05:20 Free T4 [place] 1.21 ng/dL (0.82-1.77) 10/09/16 05:05 TSH 0.77 uIU/ml (0.358-3.74) D 10/09/16 05:05 Free T4 1.77 ng/dl (0.76-1.16) H 10/06/16 05:20 Free T3 2.0 pg/ml (2.0-4.4) 10/09/16 05:05 Thyroid Stim Immunoglob 60 % (0-139) 10/09/16 05:05 Current Medications Generic Name Dose Route Start Last Admin Trade Name Freq PRN Reason Stop Dose Admin Acetaminophen 650 mg 10/10/16 15:28 10/13/16 22:53 Tylenol - PO 650 mg Q6H PRN Administration FEVER OR PAIN Albuterol/Ipratropium 1 amp 10/17/16 07:19 Duoneb - NEB Q6H PRN ASTHMA Albuterol/Ipratropium 1 amp 10/17/16 18:00 10/18/16 12:19 Duoneb - NEB 1 amp QIDR LYNETTE Administration Amino Acids 30 ml 10/10/16 17:30 10/18/16 10:39 Prosource No Carb Liquid Pkt PO 30 ml BID@0800,1730 LYNETTE Administration Apixaban 5 mg 10/09/16 10:30 10/18/16 00:01 Eliquis - PO Not Given BID LYNETTE Cefepime HCl 2 gm 10/18/16 10:00 10/18/16 10:38 Maxipime 2gm Ivpb (Pre-Docked) IVPB 2 gm Q8H-IV LYNETTE Administration Protocol Chlorhexidine Gluconate 1 applic 10/05/16 22:00 10/18/16 00:02 Hibiclens For Decolonization - TP 1 applic HS LYNETTE Administration Diltiazem HCl 125 mg/ Dextrose 125 mls @ 15 mls/hr 10/17/16 10:36 10/17/16 19: 02 IVPB 15 mls/hr TITR LYNETTE Administration Protocol 15 MG/HR Vancomycin HCl 1,250 mg/ 250 mls @ 125 mls/hr 10/18/16 10:00 10/18/16 10:40 Dextrose IVPB 125 mls/hr DAILY LYNETTE Administration Protocol Metoprolol Tartrate 50 mg 10/17/16 18:15 10/18/16 09:25 Lopressor - PO Not Given BID LYNETTE Nicotine 21 mg 10/16/16 10:00 10/18/16 09:25 Nicoderm Patch - TD 21 mg DAILY LYNETTE Administration Pantoprazole Sodium 40 mg 10/16/16 22:00 10/18/16 00:02 Protonix - PO Not Given HS LYNETTE Polyethylene Glycol 17 gm 10/09/16 22:00 10/18/16 09:25 Miralax (For Daily Use) - PO Not Given BID LYNETTE Potassium Chloride 40 meq 10/08/16 10:00 10/17/16 10:35 Potassium Chloride Oral Liquid PO 40 meq DAILY LYNETTE Administration Sodium Chloride 2 spray 10/15/16 11:18 10/15/16 12:27 [place] Nasal [place] - NS 2 sprays TID PRN Administration NASAL CONGESTION AP: Abnormal TFT: Rpt TFT normal TSI and TPO WNL autoimmune thyroid disease unlikely Unclear reason for intial abnormal TFT of Low TSH and borderline high FT4 No need for futher testing of Thyroid function in the hospital. Pt on multiple medications that could affect thyroid functins. Repeat TFT once discharged in office. Will f/u A Fib CHF Respiratory failure: On BIPAP now Problem List - Problems (1) Atrial fibrillation, new onset Code(s): I48.91 - UNSPECIFIED ATRIAL FIBRILLATION (2) Congestive heart failure (CHF) Code(s): I50.9 - HEART FAILURE, UNSPECIFIED Qualifiers: Congestive heart failure type: combined Congestive heart failure chronicity: acute Qualified Code(s): I50.41 - Acute combined systolic ( congestive) and diastolic (congestive) heart failure
[2016-10-18] MEDS: POTASSIUM CHLORIDE ORAL LIQUID 20 MEQ/15 ML PO SCH (12:54)
--- NOTE | 2016-10-18 16:32 | PN ---
Physical Exam: SUBJECTIVE: Patient seen and examined in the ICU. Patient is Lethargic but arousable on BiPAP FiO2 100%. Low grade temps overnight. OBJECTIVE: Vital Signs Temperature 100.2 F H 10/18/16 06:00 Pulse Rate 94 H 10/18/16 08:00 Respiratory Rate 24 10/18/16 08:40 Blood Pressure 76/56 10/18/16 08:00 O2 Sat by Pulse Oximetry (%) 91 L 10/18/16 14:31 GENERAL: The patient is awake, alert, continues to take his oxygen off HEAD: Normal with no signs of trauma. EYES: PERRL, extraocular movements intact, sclera anicteric, conjunctiva clear. ENT: Ears normal, oropharynx clear without exudates, moist mucous membranes. NECK: Trachea midline, full range of motion, supple. LUNGS: decreased BS BL, no wheezes, no crackles, mild accessory muscle use. HEART: Regular rate and rhythm, S1, S2 without murmur, rub or gallop. ABDOMEN: Soft, nontender, nondistended, normoactive bowel sounds, no guarding, no rebound, no hepatosplenomegaly, no masses. EXTREMITIES: 2+ pulses, warm, well-perfused, no edema. NEUROLOGICAL: Cranial nerves II through XII grossly intact. Normal speech. PSYCH: Normal mood, normal affect. SKIN: Warm, dry, normal turgor, no rashes or lesions noted CBCD WBC 12.5 K/mm3 (4.0-10.0) H D 10/18/16 05:35 RBC 4.72 M/mm3 (4.00-5.60) 10/18/16 05:35 Hgb 15.3 GM/dL (11.7-16.9) D 10/18/16 05:35 Hct 46.2 % (35.4-49) D 10/18/16 05:35 MCV 97.7 fl (80-96) H 10/18/16 05:35 MCHC 33.2 g/dl (32.0-35.9) 10/18/16 05:35 RDW 15.3 % (11.9-15.9) 10/18/16 05:35 Plt Count 185 K/MM3 (134-434) 10/18/16 05:35 MPV 10.1 fl (7.5-11.1) 10/18/16 05:35 CMP Sodium 146 mmol/L (136-145) H 10/18/16 05:35 Potassium 3.6 mmol/L (3.5-5.1) 10/18/16 05:35 Chloride 99 mmol/L (98-107) 10/18/16 05:35 Carbon Dioxide 41 mmol/L (21-32) H 10/18/16 05:35 Anion Gap 6 (8-16) L 10/18/16 05:35 BUN 81 mg/dL (7-18) H D 10/18/16 05:35 Creatinine 1.2 mg/dL (0.7-1.3) D 10/18/16 05:35 Creat Clearance w eGFR > 60 (>60) 10/16/16 05:15 Random Glucose 162 mg/dL (74-106) H 10/18/16 05:35 Calcium 8.7 mg/dL (8.5-10.1) 10/18/16 05:35 Total Bilirubin 3.2 mg/dL (0.2-1.0) H 10/16/16 05:15 AST 30 U/L (15-37) 10/16/16 05:15 ALT 35 U/L (12-78) 10/16/16 05:15 Alkaline Phosphatase 76 U/L (45-117) 10/16/16 05:15 Total Protein 6.3 g/dl (6.4-8.2) L 10/16/16 05:15 Albumin 2.9 g/dl (3.4-5.0) L 10/16/16 05:15 CARDIAC ENZYMES Creatine Kinase 493 IU/L (39-308) H D 10/07/16 05:55 Troponin I < 0.02 ng/ml (0.00-0.05) 10/07/16 05:55 Active Medications Generic Name Dose Route Start Last Admin Trade Name Freq PRN Reason Stop Dose Admin Acetaminophen 650 mg 10/10/16 15:28 10/13/16 22:53 Tylenol - PO 650 mg Q6H PRN Administration FEVER OR PAIN Albuterol/Ipratropium 1 amp 10/17/16 07:19 Duoneb - NEB Q6H PRN ASTHMA Albuterol/Ipratropium 1 amp 10/17/16 18:00 10/18/16 12:19 Duoneb - NEB 1 amp QIDR LYNETTE Administration Amino Acids 30 ml 10/10/16 17:30 10/18/16 10:39 Prosource No Carb Liquid Pkt PO 30 ml BID@0800,1730 LYNETTE Administration Apixaban 5 mg 10/09/16 10:30 10/18/16 12:51 Eliquis - PO 5 mg BID LYNETTE Administration Cefepime HCl 2 gm 10/18/16 10:00 10/18/16 10:38 Maxipime 2gm Ivpb (Pre-Docked) IVPB 2 gm Q8H-IV LYNETTE Administration Protocol Chlorhexidine Gluconate 1 applic 10/05/16 22:00 10/18/16 00:02 Hibiclens For Decolonization - TP 1 applic HS LYNETTE Administration Diltiazem HCl 125 mg/ Dextrose 125 mls @ 15 mls/hr 10/17/16 10:36 10/17/16 19: 02 IVPB 15 mls/hr TITR LYNETTE Administration Protocol 15 MG/HR Vancomycin HCl 1,250 mg/ 250 mls @ 125 mls/hr 10/18/16 10:00 10/18/16 10:40 Dextrose IVPB 125 mls/hr DAILY LYNETTE Administration Protocol Metoprolol Tartrate 50 mg 10/17/16 18:15 10/18/16 09:25 Lopressor - PO Not Given BID LYNETTE Nicotine 21 mg 10/16/16 10:00 10/18/16 09:25 Nicoderm Patch - TD 21 mg DAILY LYNETTE Administration Pantoprazole Sodium 40 mg 10/16/16 22:00 10/18/16 00:02 Protonix - PO Not Given HS LYNETTE Polyethylene Glycol 17 gm 10/09/16 22:00 10/18/16 09:25 Miralax (For Daily Use) - PO Not Given BID LYNETTE Potassium Chloride 40 meq 10/08/16 10:00 10/18/16 12:54 Potassium Chloride Oral Liquid PO 40 meq DAILY LYNETTE Administration Sodium Chloride 2 spray 10/15/16 11:18 10/15/16 12:27 [place] Nasal [place] - NS 2 sprays TID PRN Administration NASAL CONGESTION Echocardiography revealed mild to moderate LV systolic dysfunction, moderate TR , RVSP of 30-40 mmHg ASSESSMENT/PLAN: 60 y/o man with ho GERD, HTN, previously mildly reduced EF who presented with scrotal swelling and was diagnosed with acute hypoxic resp failure due to acute CHF exacerbation #Afib rate is controlled today on cardizem drip with [id number] score of 2 on Eliquis continue ,on Lopressor ; cardilogist # Acute hypoxic hypercapnic respiratory failure: s/p intubation and extubation now on VM and on Bipap prn. # Acute systolic/diastolic CHF exacerbation ; Lasix is on hold now #s/p Cardiogenic shock: off pressors now # MONIE :resolved # Electrolytes abn with hypokalemia :replete as needed DVT px:Eliquis Further Cardiac w/u when patient is more stable Visit type - Emergency Visit Emergency Visit: Yes ED Registration Date: 10/05/16 Care time: The patient presented to the Emergency Department on the above date and was hospitalized for further evaluation of their emergent condition. - New Patient This patient is new to me today: No - Critical Care Critical Care patient: Yes Total Critical Care Time (in minutes): 35 Critical Care Statement: The care of this patient involved high complexity decision making to prevent further life threatening deterioration of the patient 's condition and/or to evalute & treat vital organ system(s) failure or risk of failure.
[2016-10-18] MEDS: DILTIAZEM INJECTION 125 MG in DEXTROSE 5%-WATER - 100 ML IVPB SCH (18:19)
--- NOTE | 2016-10-18 18:53 | PN ---
Progress Note, Physician History of Present Illness: Pt seen and examined at bedside. He is awake and alert. He feels that his breathing is better than yesterday. He was hypotensive and required a fluid bolus. - Current Medication List Current Medications: Active Medications Acetaminophen (Tylenol -) 650 mg PO Q6H PRN PRN Reason: FEVER OR PAIN Last Admin: 10/13/16 22:53 Dose: 650 mg Albuterol/Ipratropium (Duoneb -) 1 amp NEB Q6H PRN PRN Reason: ASTHMA Albuterol/Ipratropium (Duoneb -) 1 amp NEB QIDR [facility] Last Admin: 10/18/16 12:19 Dose: 1 amp Amino Acids (Prosource No Carb Liquid Pkt) 30 ml PO BID@0800,1730 [facility] Last Admin: 10/18/16 10:39 Dose: 30 ml Apixaban (Eliquis -) 5 mg PO BID [facility] Last Admin: 10/18/16 12:51 Dose: 5 mg Cefepime HCl (Maxipime 2gm Ivpb (Pre-Docked)) 2 gm IVPB Q8H-IV LYNETTE PRN Reason: Protocol Last Admin: 10/18/16 18:20 Dose: 2 gm Chlorhexidine Gluconate (Hibiclens For Decolonization -) 1 applic TP HS [facility] Last Admin: 10/18/16 00:02 Dose: 1 applic Diltiazem HCl 125 mg/ Dextrose 125 mls @ 15 mls/hr IVPB TITR LYNETTE; 15 MG/HR PRN Reason: Protocol Last Admin: 10/18/16 18:19 Dose: Not Given Vancomycin HCl 1,250 mg/ (Dextrose) 250 mls @ 125 mls/hr IVPB DAILY LYNETTE PRN Reason: Protocol Last Admin: 10/18/16 10:40 Dose: 125 mls/hr Metoprolol Tartrate (Lopressor -) 50 mg PO BID [facility] Last Admin: 10/18/16 09:25 Dose: Not Given Nicotine (Nicoderm Patch -) 21 mg TD DAILY [facility] Last Admin: 10/18/16 09:25 Dose: 21 mg Pantoprazole Sodium (Protonix -) 40 mg PO HS [facility] Last Admin: 10/18/16 00:02 Dose: Not Given Polyethylene Glycol (Miralax (For Daily Use) -) 17 gm PO BID [facility] Last Admin: 10/18/16 09:25 Dose: Not Given Potassium Chloride (Potassium Chloride Oral Liquid) 40 meq PO DAILY LYNETTE Last Admin: 10/18/16 12:54 Dose: 40 meq Sodium Chloride ([place] Nasal [place] -) 2 spray NS TID PRN PRN Reason: NASAL CONGESTION Last Admin: 10/15/16 12:27 Dose: 2 sprays - Objective Vital Signs: Vital Signs Temperature 98.7 F 10/18/16 12:00 Pulse Rate 123 H 10/18/16 18:00 Respiratory Rate 24 10/18/16 18:00 Blood Pressure 112/57 10/18/16 18:00 O2 Sat by Pulse Oximetry (%) 96 10/18/16 16:32 Constitutional: Yes: Calm Eyes: Yes: Conjunctiva Clear HENT: Yes: Atraumatic Cardiovascular: Yes: S1, S2 Respiratory: Yes: On Venti-Mask Gastrointestinal: Yes: Soft, Abdomen, Obese Genitourinary: Yes: Hilario Present Musculoskeletal: Yes: Muscle Weakness Edema: Yes Edema: LLE: 2+, RLE: 2+ Neurological: Yes: Oriented Psychiatric: Yes: Oriented Labs: CBC, BMP 10/18/16 05:35 10/18/16 05:35 INR, PTT INR 1.32 (0.82-1.09) H 10/13/16 05:35 Problem List - Problems (1) Acute kidney injury Code(s): N17.9 - ACUTE KIDNEY FAILURE, UNSPECIFIED (2) Anasarca Code(s): R60.1 - GENERALIZED EDEMA (3) Congestive heart failure (CHF) Code(s): I50.9 - HEART FAILURE, UNSPECIFIED Qualifiers: Congestive heart failure type: combined Congestive heart failure chronicity: acute Qualified Code(s): I50.41 - Acute combined systolic ( congestive) and diastolic (congestive) heart failure (4) Morbid obesity Code(s): E66.01 - MORBID (SEVERE) OBESITY DUE TO EXCESS CALORIES (5) Renal insufficiency Code(s): N28.9 - DISORDER OF KIDNEY AND URETER, UNSPECIFIED Assessment/Plan Current Medications Generic Name Dose Route Start Last Admin Trade Name Freq PRN Reason Stop Dose Admin Acetaminophen 650 mg 10/10/16 15:28 10/13/16 22:53 Tylenol - PO 650 mg Q6H PRN Administration FEVER OR PAIN Albuterol/Ipratropium 1 amp 10/17/16 07:19 Duoneb - NEB Q6H PRN ASTHMA Albuterol/Ipratropium 1 amp 10/17/16 18:00 10/18/16 12:19 Duoneb - NEB 1 amp QIDR LYNETTE Administration Amino Acids 30 ml 10/10/16 17:30 10/18/16 10:39 [place]source No Carb Liquid Pkt PO 30 ml BID@0800,1730 LYNETTE Administration Apixaban 5 mg 10/09/16 10:30 10/18/16 12:51 Eliquis - PO 5 mg BID LYNETTE Administration Cefepime HCl 2 gm 10/18/16 10:00 10/18/16 18:20 Maxipime 2gm Ivpb (Pre-Docked) IVPB 2 gm Q8H-IV LYNETTE Administration Protocol Chlorhexidine Gluconate 1 applic 10/05/16 22:00 10/18/16 00:02 Hibiclens For Decolonization - TP 1 applic HS LYNETTE Administration Diltiazem HCl 125 mg/ Dextrose 125 mls @ 15 mls/hr 10/17/16 10:36 10/18/16 18: 19 IVPB Not Given TITR LYNETTE Protocol 15 MG/HR Vancomycin HCl 1,250 mg/ 250 mls @ 125 mls/hr 10/18/16 10:00 10/18/16 10:40 Dextrose IVPB 125 mls/hr DAILY LYNETTE Administration Protocol Metoprolol Tartrate 50 mg 10/17/16 18:15 10/18/16 09:25 Lopressor - PO Not Given BID LYNETTE Nicotine 21 mg 10/16/16 10:00 10/18/16 09:25 Nicoderm Patch - TD 21 mg DAILY LYNETTE Administration Pantoprazole Sodium 40 mg 10/16/16 22:00 10/18/16 00:02 Protonix - PO Not Given HS LYNETTE Polyethylene Glycol 17 gm 10/09/16 22:00 10/18/16 09:25 Miralax (For Daily Use) - PO Not Given BID LYNETTE Potassium Chloride 40 meq 10/08/16 10:00 10/18/16 12:54 Potassium Chloride Oral Liquid PO 40 meq DAILY LYNETTE Administration Sodium Chloride 2 spray 10/15/16 11:18 10/15/16 12:27 [place] Nasal [place] - NS 2 sprays TID PRN Administration NASAL CONGESTION Impression 1. Azotemia 2. CHF acute 3. acute resp failure requiring intubation 4. new onset atrial fibrillation 5. hx of htn 6. obesity 7. chronic smoker 8. hypokalemia Plan - monitor bp - fluid bolus challenge - hold lasix for now - repeat labs in am, creatinine is higher today - am cxr - will follow - smoking cessation Dr Delacruz
[2016-10-19] MEDS: CEFEPIME 2 GM/100 ML BAG PRE-DOCKED IVPB SCH ×3 (03:01→18:52)
[2016-10-19 06:19] LABS: BASOPHIL 0.1 % (0-2.0); EOSINOPHIL 0.3 % (0-4.5); MCH 32.1 pg (25.7-33.7); MCHC 32.5 g/dl (32.0-35.9); MEAN CELL VOLUME 98.7 fl (80-96); MEAN PLT VOLUME 9.8 fl (7.5-11.1); NEUTROPHILS 82.7 % (42.8-82.8); PLATELET COUNT 182 K/MM3 (134-434); RDW 15.6 % (11.9-15.9); WHITE BLOOD COUNT 11.9 K/mm3 (4.0-10.0)
[2016-10-19 06:42] LABS: CALCIUM 8.9 mg/dL (8.5-10.1); COCKROFT - GAULT 160.7; CREATININE 0.7 mg/dL (0.7-1.3); MAGNESIUM 2.4 mg/dL (1.8-2.4); PHOSPHOROUS 2.9 mg/dL (2.5-4.9)
[2016-10-19] MEDS: ALBUTEROL SO4 2.5/IPRATROPIUM 0.5 INH SOL 3 ML VIAL.NEB. NEB SCH ×3 (06:51→19:18)
--- NOTE | 2016-10-19 07:20 | PN ---
Progress Note (short form) - Note Progress Note: Chief Complaint: Events noted, notes reviewed, awake and alert sitting in a chair, denies any chest pain, appears tachypneic but denies dyspnea, remains in atrial fibrillation with periods of rapid ventricular response History of Present Illness: Seen and examined in the ICU. Events noted, notes reviewed, awake and alert sitting in a chair, denies any chest pain, appears tachypneic but denies dyspnea, remains in atrial fibrillation with periods of rapid ventricular response Chest x-ray from this AM not performed Echocardiography revealed mild to moderate LV systolic dysfunction, moderate TR , RVSP of 30-40 mmHg Medications: Current Medications Acetaminophen (Tylenol -) 650 mg PO Q6H PRN PRN Reason: FEVER OR PAIN Last Admin: 10/13/16 22:53 Dose: 650 mg Albuterol/Ipratropium (Duoneb -) 1 amp NEB Q6H PRN PRN Reason: ASTHMA Albuterol/Ipratropium (Duoneb -) 1 amp NEB QIDR [facility] Last Admin: 10/19/16 06:51 Dose: 1 amp Amino Acids (Prosource No Carb Liquid Pkt) 30 ml PO BID@0800,1730 [facility] Last Admin: 10/18/16 21:57 Dose: 30 ml Apixaban (Eliquis -) 5 mg PO BID [facility] Last Admin: 10/18/16 21:47 Dose: 5 mg Cefepime HCl (Maxipime 2gm Ivpb (Pre-Docked)) 2 gm IVPB Q8H-IV LYNETTE PRN Reason: Protocol Last Admin: 10/19/16 03:01 Dose: 2 gm Chlorhexidine Gluconate (Hibiclens For Decolonization -) 1 applic TP HS [facility] Last Admin: 10/18/16 21:47 Dose: 1 applic Diltiazem HCl 125 mg/ Dextrose 125 mls @ 15 mls/hr IVPB TITR LYNETTE; 15 MG/HR PRN Reason: Protocol Last Admin: 10/18/16 18:19 Dose: Not Given Vancomycin HCl 1,250 mg/ (Dextrose) 250 mls @ 125 mls/hr IVPB DAILY LYNETTE PRN Reason: Protocol Last Admin: 10/18/16 10:40 Dose: 125 mls/hr Metoprolol Tartrate (Lopressor -) 50 mg PO BID [facility] Last Admin: 10/18/16 21:45 Dose: 50 mg Nicotine (Nicoderm Patch -) 21 mg TD DAILY [facility] Last Admin: 10/18/16 09:25 Dose: 21 mg Pantoprazole Sodium (Protonix -) 40 mg PO HS [facility] Last Admin: 10/18/16 21:45 Dose: 40 mg Polyethylene Glycol (Miralax (For Daily Use) -) 17 gm PO BID [facility] Last Admin: 10/18/16 21:57 Dose: Not Given Potassium Chloride (Potassium Chloride Oral Liquid) 40 meq PO DAILY [facility] Last Admin: 10/18/16 12:54 Dose: 40 meq Sodium Chloride ([place] Nasal [place] -) 2 spray NS TID PRN PRN Reason: NASAL CONGESTION Last Admin: 10/15/16 12:27 Dose: 2 sprays Review of Systems Constitutional: denies Chills or Fever Respiratory: reports: Dyspnea but improved Cardiovascular: As noted above Gastrointestinal: denies Nausea, Vomiting, Diarrhea or Constipation or Abdominal Discomfort Genitourinary: No Symptoms Reported Musculoskeletal: No Symptoms Reported Vital Signs: Last Vital Signs Temp Pulse Resp BP Pulse Ox 98.1 F 108 H 20 126/89 98 10/19/16 06:00 10/19/16 06:00 10/19/16 06:00 10/19/16 06:00 10/18/16 19:41 Intake & Output 10/16/16 10/17/16 10/18/16 10/19/16 23:59 23:59 23:59 23:59 Intake Total 850 2545 1000 600 Output Total 2200 1000 3300 900 Balance -1350 1545 -2300 -300 Weight 234 lb 6.4 oz 232 lb 231 lb 14.4 oz Neck: Supple Negative JVD Respiratory: Diminished Breath Sounds at the Bases Cardiovascular: S1 S2 Irregularly Irregular Gastrointestinal: Soft Benign Normal Bowel Sounds Ext: 1+ Edema Bilaterally Labs: CBC, BMP 10/19/16 05:25 10/19/16 05:25 INR, PTT INR 1.32 (0.82-1.09) H 10/13/16 05:35 Hepatic Panel Total Bilirubin 3.2 mg/dL (0.2-1.0) H 10/16/16 05:15 AST 30 U/L (15-37) 10/16/16 05:15 ALT 35 U/L (12-78) 10/16/16 05:15 Alkaline Phosphatase 76 U/L (45-117) 10/16/16 05:15 Albumin 2.9 g/dl (3.4-5.0) L 10/16/16 05:15 Assessment/Plan ASSESSMENT: 1. Post acute class III-IV NYHA classification LV failure related to systolic/ diastolic LV dysfunction, respiratory failure, resolved, currently pre-renal azotemia, persistent pulmonary infiltrates etiology to be determined infectious vs. non cardiogenic pulmonary edema 2. Unclear if ischemic dilated cardiomyopathy vs. ideopathic cardiomyopathy vs. tachycardia induced cardiomyopathy (atrial fibrillation) 3. CAD angina pectoris to be excluded 4. Persistent atrial fibrillation with periods of rapid ventricular response, [id number] score of 2 5. HTN, hypotenion, resolved 6. Hypercholesterolemia 7. Acute renal insufficiency, pre-renal azotemia 8. Polycythmia, resolved 9. Thrombocytopenia, resolved PLAN: 1. Continue to hold Lasix, if recurrent hypotension recommend additional IV fluid 2. Continue Lopressor with caution, hemodynamics permitting, D/C IV Cardizem 3. Recommend addition of ACEI or ARBS for the above noted LV systolic dysfunction, hemodynamics permitting and renal function stabilization 4. Continue NOAC's, Eliquis 5. F/U chest x-ray from this AM Bran Carlin MD
--- NOTE | 2016-10-19 07:23 | PN ---
Progress Note, Physician Chief Complaint: ID Looks much less in distress today Conversive unlike yesterday Vancomycin and Cefepime - Current Medication List Current Medications: Active Medications Acetaminophen (Tylenol -) 650 mg PO Q6H PRN PRN Reason: FEVER OR PAIN Last Admin: 10/13/16 22:53 Dose: 650 mg Albuterol/Ipratropium (Duoneb -) 1 amp NEB Q6H PRN PRN Reason: ASTHMA Albuterol/Ipratropium (Duoneb -) 1 amp NEB QIDR [facility] Last Admin: 10/19/16 06:51 Dose: 1 amp Amino Acids (Prosource No Carb Liquid Pkt) 30 ml PO BID@0800,1730 [facility] Last Admin: 10/18/16 21:57 Dose: 30 ml Apixaban (Eliquis -) 5 mg PO BID [facility] Last Admin: 10/18/16 21:47 Dose: 5 mg Cefepime HCl (Maxipime 2gm Ivpb (Pre-Docked)) 2 gm IVPB Q8H-IV LYNETTE PRN Reason: Protocol Last Admin: 10/19/16 03:01 Dose: 2 gm Chlorhexidine Gluconate (Hibiclens For Decolonization -) 1 applic TP HS [facility] Last Admin: 10/18/16 21:47 Dose: 1 applic Diltiazem HCl 125 mg/ Dextrose 125 mls @ 15 mls/hr IVPB TITR LYNETTE; 15 MG/HR PRN Reason: Protocol Last Admin: 10/18/16 18:19 Dose: Not Given Vancomycin HCl 1,250 mg/ (Dextrose) 250 mls @ 125 mls/hr IVPB DAILY LYNETTE PRN Reason: Protocol Last Admin: 10/18/16 10:40 Dose: 125 mls/hr Metoprolol Tartrate (Lopressor -) 50 mg PO BID [facility] Last Admin: 10/18/16 21:45 Dose: 50 mg Nicotine (Nicoderm Patch -) 21 mg TD DAILY [facility] Last Admin: 10/18/16 09:25 Dose: 21 mg Pantoprazole Sodium (Protonix -) 40 mg PO HS [facility] Last Admin: 10/18/16 21:45 Dose: 40 mg Polyethylene Glycol (Miralax (For Daily Use) -) 17 gm PO BID [facility] Last Admin: 10/18/16 21:57 Dose: Not Given Potassium Chloride (Potassium Chloride Oral Liquid) 40 meq PO DAILY [facility] Last Admin: 10/18/16 12:54 Dose: 40 meq Sodium Chloride ([place] Nasal [place] -) 2 spray NS TID PRN PRN Reason: NASAL CONGESTION Last Admin: 10/15/16 12:27 Dose: 2 sprays - Objective Vital Signs: Vital Signs Temperature 98.1 F 10/19/16 06:00 Pulse Rate 108 H 10/19/16 06:00 Respiratory Rate 20 10/19/16 06:00 Blood Pressure 126/89 10/19/16 06:00 O2 Sat by Pulse Oximetry (%) 98 10/18/16 19:41 Constitutional: Yes: Mild Distress Cardiovascular: Yes: Regular Rate and Rhythm, S1, S2 Respiratory: Yes: WNL, Regular, CTA Bilaterally, Other (Few basilar rales) Gastrointestinal: Yes: Soft, Distention. No: Tenderness, Tenderness, Rebound Edema: Yes Integumentary: Yes: Venous Stasis Changes Labs: CBC, BMP 10/19/16 05:25 10/19/16 05:25 INR, PTT INR 1.32 (0.82-1.09) H 10/13/16 05:35 Assessment/Plan Microbiology 10/17/16 11:15 Blood - Peripheral Venous Blood Culture - Preliminary NO GROWTH OBTAINED AFTER 24 HOURS, INCUBATION TO CONTINUE FOR 4 DAYS. 10/17/16 11:00 Blood - Peripheral Venous Blood Culture - Preliminary NO GROWTH OBTAINED AFTER 24 HOURS, INCUBATION TO CONTINUE FOR 4 DAYS. Laboratory Tests CRP 9.5 10/19/16 10/19/16 05:25 05:25 WBC 11.9 H Hgb 14.7 Plt Count 182 BUN 42 H D Creatinine 0.7 D Assessment Improving respiratory status today ? antibiotic effect Possible pneumonia considered and treated Atrial fibrillation Respiratory failure on Venti mask Plan Continue current therapy antibiotic Stop Vanco if cultures negative Tucker MCDANIEL
[2016-10-19 07:54] LABS: ARTERIAL BLD GAS O2 SATURATION 96.6 % (90-98.9); ARTERIAL BLOOD GAS pH 7.42 (7.35-7.45)
[2016-10-19 07:58] LABS: ALLENS TEST POSITIVE; ART PUNCT SITE RIGHT RADIAL; LPM/O2% 50%; PT. ON O2? YES; TYPE OF O2 VENTIMASK
--- NOTE | 2016-10-19 09:32 | PN ---
Progress Note (short form) - Note Progress Note: PULMONARY/CCM Pt seen and examined in the ICU. Much more alert, awake today. Wants to go home. No fevers overnight. Last Vital Signs Temp Pulse Resp BP Pulse Ox 98.1 F 108 H 20 126/89 98 10/19/16 06:00 10/19/16 06:00 10/19/16 06:00 10/19/16 06:00 10/18/16 19:41 Intake & Output 10/16/16 10/17/16 10/18/16 10/19/16 23:59 23:59 23:59 23:59 Intake Total 850 2545 1000 600 Output Total 2200 1000 3300 900 Balance -1350 1545 -2300 -300 Weight 234 lb 6.4 oz 232 lb 231 lb 14.4 oz Gen: mildly tachypneic with speaking Heart: RRR Lung: scattered rhonchi Abd: soft, nontender Ext: decreasing edema CBC, BMP 10/19/16 05:25 10/19/16 05:25 Active Medications Acetaminophen (Tylenol -) 650 mg PO Q6H PRN PRN Reason: FEVER OR PAIN Last Admin: 10/13/16 22:53 Dose: 650 mg Albuterol/Ipratropium (Duoneb -) 1 amp NEB Q6H PRN PRN Reason: ASTHMA Albuterol/Ipratropium (Duoneb -) 1 amp NEB QIDR [facility] Last Admin: 10/19/16 06:51 Dose: 1 amp Amino Acids (Prosource No Carb Liquid Pkt) 30 ml PO BID@0800,1730 [facility] Last Admin: 10/18/16 21:57 Dose: 30 ml Apixaban (Eliquis -) 5 mg PO BID [facility] Last Admin: 10/18/16 21:47 Dose: 5 mg Cefepime HCl (Maxipime 2gm Ivpb (Pre-Docked)) 2 gm IVPB Q8H-IV [facility]NETTE PRN Reason: Protocol Last Admin: 10/19/16 03:01 Dose: 2 gm Chlorhexidine Gluconate (Hibiclens For Decolonization -) 1 applic TP HS [facility] Last Admin: 10/18/16 21:47 Dose: 1 applic Vancomycin HCl 1,250 mg/ (Dextrose) 250 mls @ 125 mls/hr IVPB DAILY [facility] PRN Reason: Protocol Last Admin: 10/18/16 10:40 Dose: 125 mls/hr Metoprolol Tartrate (Lopressor -) 50 mg PO BID [facility] Last Admin: 10/18/16 21:45 Dose: 50 mg Nicotine (Nicoderm Patch -) 21 mg TD DAILY [facility] Last Admin: 10/18/16 09:25 Dose: 21 mg Pantoprazole Sodium (Protonix -) 40 mg PO HS [facility] Last Admin: 10/18/16 21:45 Dose: 40 mg Polyethylene Glycol (Miralax (For Daily Use) -) 17 gm PO BID [facility] Last Admin: 10/18/16 21:57 Dose: Not Given Potassium Chloride (Potassium Chloride Oral Liquid) 40 meq PO DAILY [facility] Last Admin: 10/18/16 12:54 Dose: 40 meq Sodium Chloride ([place] Nasal [place] -) 2 spray NS TID PRN PRN Reason: NASAL CONGESTION Last Admin: 10/15/16 12:27 Dose: 2 sprays A/P Acute Hypoxic and Hypercapneic Respiratory Failure improving Acute on ?Chronic LV Systolic Heart Failure Pulmonary HTN Volume Overload Atrial Fibrillation with RVR Acute Kidney Injury Hyperthyroidism Fevers - r/o Pneumonia - antibiotics per ID - IVF boluses PRN - monitor urine output, creatinine - daily weights, I/Os - rate control per cardiology - continue anticoagulation - inhaled bronchodilators - O2 to keep SpO2 >90% - PO as tolerated - aspiration precautions - DVT/GI prophylaxis - can monitor on telemetry critical care time spent reviewing chart, evaluating patient and formulating plan 35 min
[2016-10-19] MEDS: AMINO ACIDS/PROTEIN HYDROLYS 30 ML LIQUID.PKT PO SCH ×2 (09:53→18:52)
[2016-10-19] MEDS: APIXABAN 5 MG TABLET PO SCH ×2 (09:53→22:38)
[2016-10-19] MEDS: METOPROLOL TARTRATE 50 MG TABLET (FP) PO SCH ×2 (09:53→22:38)
[2016-10-19] MEDS: POLYETHYLENE GLYCOL 3350 119 GM BTL PO SCH ×2 (09:55→22:38)
[2016-10-19] MEDS: NICOTINE 21 MG/24 HOURS TOPICAL PATCH TD SCH (09:55)
[2016-10-19] MEDS: POTASSIUM CHLORIDE ORAL LIQUID 20 MEQ/15 ML PO SCH (09:56)
[2016-10-19] MEDS ORDERED: PT OWN MED DRAWER 7, Y5N ONE ×2 (09:59→22:36)
[2016-10-19] MEDS: VANCOMYCIN 1,250 MG in DEXTROSE 5%-WATER - 250 ML IVPB SCH (12:25)
--- NOTE | 2016-10-19 12:27 | PN ---
Progress Note (short form) - Note Progress Note: Patient is in ICU, continues to hypoxic off oxygen. denies any chest pain. Temperature 98.1 F 10/19/16 06:00 Pulse Rate 108 H 10/19/16 06:00 Respiratory Rate 20 10/19/16 09:00 Blood Pressure 126/89 10/19/16 06:00 O2 Sat by Pulse Oximetry (%) 91 L 10/19/16 09:50 GENERAL: The patient is awake, alert, continues to take his oxygen off HEAD: Normal with no signs of trauma. EYES: PERRL, extraocular movements intact, sclera anicteric, conjunctiva clear. ENT: Ears normal, oropharynx clear without exudates, moist mucous membranes. NECK: Trachea midline, full range of motion, supple. LUNGS: decreased BS BL, no wheezes, no crackles, mild accessory muscle use. HEART: Irregularly-irregular rate of 108 , S1, S2 positive, SEM2/6 . ABDOMEN: Soft, nontender,distended ( large abdomen) , normoactive bowel sounds, no guarding, no rebound, no hepatosplenomegaly, no masses appreciated. EXTREMITIES: 2+ pulses, warm, well-perfused, no edema. NEUROLOGICAL: Cranial nerves II through XII grossly intact. Normal speech. PSYCH: Normal mood, normal affect. SKIN: Warm, dry, normal turgor, no rashes or lesions noted CBCD WBC 11.9 K/mm3 (4.0-10.0) H 10/19/16 05:25 RBC 4.57 M/mm3 (4.00-5.60) 10/19/16 05:25 Hgb 14.7 GM/dL (11.7-16.9) 10/19/16 05:25 Hct 45.2 % (35.4-49) 10/19/16 05:25 MCV 98.7 fl (80-96) H 10/19/16 05:25 MCHC 32.5 g/dl (32.0-35.9) 10/19/16 05:25 RDW 15.6 % (11.9-15.9) 10/19/16 05:25 Plt Count 182 K/MM3 (134-434) 10/19/16 05:25 MPV 9.8 fl (7.5-11.1) 10/19/16 05:25 CMP Sodium 145 mmol/L (136-145) 10/19/16 05:25 Potassium 3.6 mmol/L (3.5-5.1) 10/19/16 05:25 Chloride 101 mmol/L (98-107) 10/19/16 05:25 Carbon Dioxide 39 mmol/L (21-32) H 10/19/16 05:25 Anion Gap 5 (8-16) L 10/19/16 05:25 BUN 42 mg/dL (7-18) H D 10/19/16 05:25 Creatinine 0.7 mg/dL (0.7-1.3) D 10/19/16 05:25 Creat Clearance w eGFR > 60 (>60) 10/16/16 05:15 Random Glucose 129 mg/dL (74-106) H D 10/19/16 05:25 Calcium 8.9 mg/dL (8.5-10.1) 10/19/16 05:25 Total Bilirubin 3.2 mg/dL (0.2-1.0) H 10/16/16 05:15 AST 30 U/L (15-37) 10/16/16 05:15 ALT 35 U/L (12-78) 10/16/16 05:15 Alkaline Phosphatase 76 U/L (45-117) 10/16/16 05:15 Total Protein 6.3 g/dl (6.4-8.2) L 10/16/16 05:15 Albumin 2.9 g/dl (3.4-5.0) L 10/16/16 05:15 CARDIAC ENZYMES Creatine Kinase 493 IU/L (39-308) H D 10/07/16 05:55 Troponin I < 0.02 ng/ml (0.00-0.05) 10/07/16 05:55 Current Medications Generic Name Dose Route Start Last Admin Trade Name Freq PRN Reason Stop Dose Admin Acetaminophen 650 mg 10/10/16 15:28 10/13/16 22:53 Tylenol - PO 650 mg Q6H PRN Administration FEVER OR PAIN Albuterol/Ipratropium 1 amp 10/17/16 07:19 Duoneb - NEB Q6H PRN ASTHMA Albuterol/Ipratropium 1 amp 10/17/16 18:00 10/19/16 12:06 Duoneb - NEB 1 amp QIDR LYNETTE Administration Amino Acids 30 ml 10/10/16 17:30 10/19/16 09:53 Prosource No Carb Liquid Pkt PO 30 ml BID@0800,1730 LYNETTE Administration Apixaban 5 mg 10/09/16 10:30 10/19/16 09:53 Eliquis - PO 5 mg BID LYNETTE Administration Cefepime HCl 2 gm 10/18/16 10:00 10/19/16 09:54 Maxipime 2gm Ivpb (Pre-Docked) IVPB 2 gm Q8H-IV LYNETTE Administration Protocol Chlorhexidine Gluconate 1 applic 10/05/16 22:00 10/18/16 21:47 Hibiclens For Decolonization - TP 1 applic HS LYNETTE Administration Vancomycin HCl 1,250 mg/ 250 mls @ 125 mls/hr 10/18/16 10:00 10/19/16 12:25 Dextrose IVPB 125 mls/hr DAILY LYNETTE Administration Protocol Metoprolol Tartrate 50 mg 10/17/16 18:15 10/19/16 09:53 Lopressor - PO 50 mg BID LYNETTE Administration Nicotine 21 mg 10/16/16 10:00 10/19/16 09:55 Nicoderm Patch - TD 21 mg DAILY LYNETTE Administration Pantoprazole Sodium 40 mg 10/16/16 22:00 10/18/16 21:45 Protonix - PO 40 mg HS LYNETTE Administration Polyethylene Glycol 17 gm 10/09/16 22:00 10/19/16 09:55 Miralax (For Daily Use) - PO 17 gm BID LYNETTE Administration Potassium Chloride 40 meq 10/08/16 10:00 10/19/16 09:56 Potassium Chloride Oral Liquid PO 40 meq DAILY LYNETTE Administration Sodium Chloride 2 spray 10/15/16 11:18 10/15/16 12:27 [place] Nasal [place] - NS 2 sprays TID PRN Administration NASAL CONGESTION Home Medications Medication Instructions Recorded Bystolic 10 mg PO DAILY 05/01/16 Hydrochlorothiazide 12.5 mg PO DAILY 05/01/16 Pantoprazole Sodium [Protonix -] 1 tab PO DAILY 05/19/16 Amlodipine/Valsartan [[place] 1 tab PO DAILY 10/05/16 5-160 mg Tablet] Ascorbate Calcium [Vitamin C] 1,000 mg PO DAILY 10/05/16 Aspirin [ASA -] 81 mg PO DAILY 10/05/16 Tarrs-3/Dha/Epa/Fish Oil [Tarrs 3 350 mg PO DAILY 10/05/16 500 Softgel] Sulfamethoxazole/Trimethoprim 1 each PO BID 10/05/16 [Bactrim Ds Tablet] Echocardiography revealed mild to moderate LV systolic dysfunction, moderate TR , RVSP of 30-40 mmHg ASSESSMENT/PLAN: 60 y/o man with ho GERD, HTN, previously mildly reduced EF who presented with scrotal swelling and was diagnosed with acute hypoxic resp failure due to acute CHF exacerbation #POssible pneumonia on IV antibiotic on Vanco and cefepime continue, once culture is negative , stop Vancomycin #Afib rate is controlled today on cardizem drip with [id number] score of 2 on Eliquis continue ,on Lopressor ; cardilogist # Acute hypoxic hypercapnic respiratory failure: s/p intubation and extubation now on VM and on Bipap prn. # Acute systolic/diastolic CHF exacerbation ; Lasix is on hold now #s/p Cardiogenic shock: off pressors now # MONIE :resolved # Electrolytes abn with hypokalemia :replete as needed DVT px:Eliquis Further Cardiac w/u when patient is more stable Visit type - Emergency Visit Emergency Visit: Yes ED Registration Date: 10/05/16 Care time: The patient presented to the Emergency Department on the above date and was hospitalized for further evaluation of their emergent condition. - New Patient This patient is new to me today: No - Critical Care Critical Care patient: Yes Total Critical Care Time (in minutes): 35 Critical Care Statement: The care of this patient involved high complexity decision making to prevent further life threatening deterioration of the patient 's condition and/or to evalute & treat vital organ system(s) failure or risk of failure.
--- NOTE | 2016-10-19 15:31 | PN ---
Progress Note, Physician History of Present Illness: Pt seen and examined at bedside. He is awake and alert. He denies shortness of breath. He is asking to go home. - Current Medication List Current Medications: Active Medications Acetaminophen (Tylenol -) 650 mg PO Q6H PRN PRN Reason: FEVER OR PAIN Last Admin: 10/13/16 22:53 Dose: 650 mg Albuterol/Ipratropium (Duoneb -) 1 amp NEB Q6H PRN PRN Reason: ASTHMA Albuterol/Ipratropium (Duoneb -) 1 amp NEB QIDR [facility] Last Admin: 10/19/16 12:06 Dose: 1 amp Amino Acids (Prosource No Carb Liquid Pkt) 30 ml PO BID@0800,1730 [facility] Last Admin: 10/19/16 09:53 Dose: 30 ml Apixaban (Eliquis -) 5 mg PO BID [facility] Last Admin: 10/19/16 09:53 Dose: 5 mg Cefepime HCl (Maxipime 2gm Ivpb (Pre-Docked)) 2 gm IVPB Q8H-IV LYNETTE PRN Reason: Protocol Last Admin: 10/19/16 09:54 Dose: 2 gm Chlorhexidine Gluconate (Hibiclens For Decolonization -) 1 applic TP HS [facility] Last Admin: 10/18/16 21:47 Dose: 1 applic Vancomycin HCl 1,250 mg/ (Dextrose) 250 mls @ 125 mls/hr IVPB DAILY LYNETTE PRN Reason: Protocol Last Admin: 10/19/16 12:25 Dose: 125 mls/hr Metoprolol Tartrate (Lopressor -) 50 mg PO BID [facility] Last Admin: 10/19/16 09:53 Dose: 50 mg Nicotine (Nicoderm Patch -) 21 mg TD DAILY [facility] Last Admin: 10/19/16 09:55 Dose: 21 mg Pantoprazole Sodium (Protonix -) 40 mg PO HS [facility] Last Admin: 10/18/16 21:45 Dose: 40 mg Polyethylene Glycol (Miralax (For Daily Use) -) 17 gm PO BID [facility] Last Admin: 10/19/16 09:55 Dose: 17 gm Potassium Chloride (Potassium Chloride Oral Liquid) 40 meq PO DAILY [facility] Last Admin: 10/19/16 09:56 Dose: 40 meq Sodium Chloride ([place] Nasal [place] -) 2 spray NS TID PRN PRN Reason: NASAL CONGESTION Last Admin: 10/15/16 12:27 Dose: 2 sprays - Objective Vital Signs: Vital Signs Temperature 98.6 F 10/19/16 08:00 Pulse Rate 132 H 10/19/16 12:00 Respiratory Rate 22 10/19/16 12:00 Blood Pressure 119/89 10/19/16 12:00 O2 Sat by Pulse Oximetry (%) 91 L 10/19/16 09:50 Constitutional: Yes: Calm Eyes: Yes: Conjunctiva Clear HENT: Yes: Atraumatic Cardiovascular: Yes: S1, S2 Respiratory: Yes: On Nasal O2 Gastrointestinal: Yes: Abdomen, Obese Genitourinary: Yes: Hilario Present Edema: Yes Edema: LLE: 1+, RLE: 1+ Integumentary: Yes: Venous Stasis Changes Neurological: Yes: Oriented Psychiatric: Yes: Agitated Labs: CBC, BMP 10/19/16 05:25 10/19/16 05:25 INR, PTT INR 1.32 (0.82-1.09) H 10/13/16 05:35 - ....Imaging Chest X-ray: Report Reviewed Problem List - Problems (1) Acute kidney injury Code(s): N17.9 - ACUTE KIDNEY FAILURE, UNSPECIFIED (2) Anasarca Code(s): R60.1 - GENERALIZED EDEMA (3) Congestive heart failure (CHF) Code(s): I50.9 - HEART FAILURE, UNSPECIFIED Qualifiers: Congestive heart failure type: combined Congestive heart failure chronicity: acute Qualified Code(s): I50.41 - Acute combined systolic ( congestive) and diastolic (congestive) heart failure (4) Morbid obesity Code(s): E66.01 - MORBID (SEVERE) OBESITY DUE TO EXCESS CALORIES (5) Renal insufficiency Code(s): N28.9 - DISORDER OF KIDNEY AND URETER, UNSPECIFIED Assessment/Plan Current Medications Generic Name Dose Route Start Last Admin Trade Name Freq PRN Reason Stop Dose Admin Acetaminophen 650 mg 10/10/16 15:28 10/13/16 22:53 Tylenol - PO 650 mg Q6H PRN Administration FEVER OR PAIN Albuterol/Ipratropium 1 amp 10/17/16 07:19 Duoneb - NEB Q6H PRN ASTHMA Albuterol/Ipratropium 1 amp 10/17/16 18:00 04/16/17 12:06 Duoneb - NEB 1 amp QIDR LYNETTE Administration Amino Acids 30 ml 10/10/16 17:30 10/19/16 09:53 Prosource No Carb Liquid Pkt PO 30 ml BID@0800,1730 LYNETTE Administration Apixaban 5 mg 10/09/16 10:30 10/19/16 09:53 Eliquis - PO 5 mg BID LYNETTE Administration Cefepime HCl 2 gm 10/18/16 10:00 10/19/16 09:54 Maxipime 2gm Ivpb (Pre-Docked) IVPB 2 gm Q8H-IV LYNETTE Administration Protocol Chlorhexidine Gluconate 1 applic 10/05/16 22:00 10/18/16 21:47 Hibiclens For Decolonization - TP 1 applic HS LYNETTE Administration Vancomycin HCl 1,250 mg/ 250 mls @ 125 mls/hr 10/18/16 10:00 10/19/16 12:25 Dextrose IVPB 125 mls/hr DAILY LYNETTE Administration Protocol Metoprolol Tartrate 50 mg 10/17/16 18:15 10/19/16 09:53 Lopressor - PO 50 mg BID LYNETTE Administration Nicotine 21 mg 10/16/16 10:00 10/19/16 09:55 Nicoderm Patch - TD 21 mg DAILY LYNETTE Administration Pantoprazole Sodium 40 mg 10/16/16 22:00 10/18/16 21:45 Protonix - PO 40 mg HS LYNETTE Administration Polyethylene Glycol 17 gm 10/09/16 22:00 10/19/16 09:55 Miralax (For Daily Use) - PO 17 gm BID LYNETTE Administration Potassium Chloride 40 meq 10/08/16 10:00 10/19/16 09:56 Potassium Chloride Oral Liquid PO 40 meq DAILY LYNETTE Administration Sodium Chloride 2 spray 10/15/16 11:18 10/15/16 12:27 [place] Nasal [place] - NS 2 sprays TID PRN Administration NASAL CONGESTION Impression 1. Azotemia 2. CHF acute 3. acute resp failure requiring intubation 4. new onset atrial fibrillation 5. hx of htn 6. obesity 7. chronic smoker 8. hypokalemia Plan - blood pressure is improved today - repeat labs in am - renal function is stable - lasis PRN - heart rate is not yet optimized - will follow - smoking cessation Dr Delacruz
[2016-10-19] MEDS: PANTOPRAZOLE 40 MG TABLET (FP) PO SCH (22:38)
[2016-10-20] MEDS: CHLORHEXIDINE GLUCONATE 4% CLEANSER FOR DECOLONIZATION TP SCH (00:19)
[2016-10-20] MEDS: ALBUTEROL SO4 2.5/IPRATROPIUM 0.5 INH SOL 3 ML VIAL.NEB. NEB SCH ×4 (01:07→19:05)
[2016-10-20] MEDS: CEFEPIME 2 GM/100 ML BAG PRE-DOCKED IVPB SCH (01:29)
[2016-10-20 06:06] LABS: BASOPHIL 0.3 % (0-2.0); EOSINOPHIL 3.7 % (0-4.5); MCH 32.4 pg (25.7-33.7); MCHC 33.1 g/dl (32.0-35.9); MEAN CELL VOLUME 97.9 fl (80-96); MEAN PLT VOLUME 10.5 fl (7.5-11.1); NEUTROPHILS 79.8 % (42.8-82.8); PLATELET COUNT 208 K/MM3 (134-434); RDW 15.2 % (11.9-15.9); WHITE BLOOD COUNT 10.6 K/mm3 (4.0-10.0)
--- NOTE | 2016-10-20 06:41 | PN ---
Progress Note (short form) - Note Progress Note: Chief Complaint: Events noted, notes reviewed, awake and alert sitting in a chair, stating that he wants to go to pay bills, denies any chest pain, appears tachypneic but denies dyspnea, remains in atrial fibrillation with periods of rapid ventricular response History of Present Illness: Seen and examined in the ICU. Events noted, notes reviewed, awake and alert sitting in a chair, stating that he wants to go to pay bills, denies any chest pain, appears tachypneic but denies dyspnea, remains in atrial fibrillation with periods of rapid ventricular response Chest x-ray from yesterday, noted improved Echocardiography revealed mild to moderate LV systolic dysfunction, moderate TR , RVSP of 30-40 mmHg Medications: Current Medications Acetaminophen (Tylenol -) 650 mg PO Q6H PRN PRN Reason: FEVER OR PAIN Last Admin: 10/13/16 22:53 Dose: 650 mg Albuterol/Ipratropium (Duoneb -) 1 amp NEB Q6H PRN PRN Reason: ASTHMA Albuterol/Ipratropium (Duoneb -) 1 amp NEB QIDR [facility] Last Admin: 10/20/16 01:07 Dose: 1 amp Amino Acids (Prosource No Carb Liquid Pkt) 30 ml PO BID@0800,1730 [facility] Last Admin: 10/19/16 18:52 Dose: Not Given Apixaban (Eliquis -) 5 mg PO BID [facility] Last Admin: 10/19/16 22:38 Dose: 5 mg Cefepime HCl (Maxipime 2gm Ivpb (Pre-Docked)) 2 gm IVPB Q8H-IV [facility] PRN Reason: Protocol Last Admin: 10/20/16 01:29 Dose: 2 gm Chlorhexidine Gluconate (Hibiclens For Decolonization -) 1 applic TP HS [facility] Last Admin: 10/20/16 00:19 Dose: 1 applic Vancomycin HCl 1,250 mg/ (Dextrose) 250 mls @ 125 mls/hr IVPB DAILY [facility] PRN Reason: Protocol Last Admin: 10/19/16 12:25 Dose: 125 mls/hr Metoprolol Tartrate (Lopressor -) 50 mg PO BID [facility] Last Admin: 10/19/16 22:38 Dose: 50 mg Nicotine (Nicoderm Patch -) 21 mg TD DAILY [facility] Last Admin: 10/19/16 09:55 Dose: 21 mg Pantoprazole Sodium (Protonix -) 40 mg PO HS [facility] Last Admin: 10/19/16 22:38 Dose: 40 mg Polyethylene Glycol (Miralax (For Daily Use) -) 17 gm PO BID [facility] Last Admin: 10/19/16 22:38 Dose: 17 gm Potassium Chloride (Potassium Chloride Oral Liquid) 40 meq PO DAILY [facility] Last Admin: 10/19/16 09:56 Dose: 40 meq Sodium Chloride ([place] Nasal [place] -) 2 spray NS TID PRN PRN Reason: NASAL CONGESTION Last Admin: 10/15/16 12:27 Dose: 2 sprays Review of Systems Constitutional: denies Chills or Fever Respiratory: reports: Dyspnea Cardiovascular: As noted above Gastrointestinal: denies Nausea, Vomiting, Diarrhea or Constipation or Abdominal Discomfort Genitourinary: No Symptoms Reported Musculoskeletal: No Symptoms Reported Vital Signs: Last Vital Signs Temp Pulse Resp BP Pulse Ox 99 F 124 H 20 110/72 94 L 10/19/16 22:00 10/20/16 00:00 10/20/16 00:00 10/20/16 00:00 10/19/16 22:00 Intake & Output 10/17/16 10/18/16 10/19/16 10/20/16 23:59 23:59 23:59 23:59 Intake Total 2545 1000 2000 Output Total 1000 3300 2200 Balance 1545 -2300 -200 Weight 232 lb 231 lb 14.4 oz Neck: Supple Negative JVD Respiratory: Diminished Breath Sounds at the Bases Cardiovascular: S1 S2 Irregularly Irregular Gastrointestinal: Soft Benign Normal Bowel Sounds Ext: 1+ Edema Bilaterally Labs: CBC, BMP 10/20/16 05:15 BMP pending from this AM Assessment/Plan ASSESSMENT: 1. Post acute class III-IV NYHA classification LV failure related to systolic/ diastolic LV dysfunction, respiratory failure, resolved, currently pre-renal azotemia, resolving pulmonary infiltrates etiology to be determined infectious vs. non cardiogenic pulmonary edema 2. Unclear if ischemic dilated cardiomyopathy vs. ideopathic cardiomyopathy vs. tachycardia induced cardiomyopathy (atrial fibrillation) 3. CAD angina pectoris to be excluded 4. Persistent atrial fibrillation with periods of rapid ventricular response, [id number] score of 2 5. HTN 6. Hypercholesterolemia 7. Acute renal insufficiency, pre-renal azotemia 8. Polycythmia, resolved 9. Thrombocytopenia, resolved PLAN: 1. Continue to hold Lasix 2. Continue Lopressor and titrate dosage, with caution, hemodynamics permitting 3. As outlined recommend addition of ACEI or ARBS for the above noted LV systolic dysfunction, hemodynamics permitting and renal function stabilization 4. Continue NOAC's, Eliquis 5. Antibiotics as per the ID service 6. May transfer to telemetry, ambulate Bran Carlin MD
[2016-10-20 06:49] LABS: CALCIUM 8.6 mg/dL (8.5-10.1); COCKROFT - GAULT 160.7; CREATININE 0.7 mg/dL (0.7-1.3); MAGNESIUM 1.9 mg/dL (1.8-2.4); PHOSPHOROUS 2.6 mg/dL (2.5-4.9)
--- NOTE | 2016-10-20 07:19 | PN ---
Progress Note, Physician Chief Complaint: ID Cefepime Vancomycin day 2 Dramatic improvement over last 48hours - Current Medication List Current Medications: Active Medications Acetaminophen (Tylenol -) 650 mg PO Q6H PRN PRN Reason: FEVER OR PAIN Last Admin: 10/13/16 22:53 Dose: 650 mg Albuterol/Ipratropium (Duoneb -) 1 amp NEB Q6H PRN PRN Reason: ASTHMA Albuterol/Ipratropium (Duoneb -) 1 amp NEB QIDR [facility] Last Admin: 10/20/16 06:57 Dose: 1 amp Amino Acids (Prosource No Carb Liquid Pkt) 30 ml PO BID@0800,1730 [facility] Last Admin: 10/19/16 18:52 Dose: Not Given Apixaban (Eliquis -) 5 mg PO BID [facility] Last Admin: 10/19/16 22:38 Dose: 5 mg Cefepime HCl (Maxipime 2gm Ivpb (Pre-Docked)) 2 gm IVPB Q8H-IV [facility]NETTE PRN Reason: Protocol Last Admin: 10/20/16 01:29 Dose: 2 gm Chlorhexidine Gluconate (Hibiclens For Decolonization -) 1 applic TP HS [facility] Last Admin: 10/20/16 00:19 Dose: 1 applic Vancomycin HCl 1,250 mg/ (Dextrose) 250 mls @ 125 mls/hr IVPB DAILY [facility] PRN Reason: Protocol Last Admin: 10/19/16 12:25 Dose: 125 mls/hr Metoprolol Tartrate (Lopressor -) 50 mg PO TID [facility] Nicotine (Nicoderm Patch -) 21 mg TD DAILY [facility] Last Admin: 10/19/16 09:55 Dose: 21 mg Pantoprazole Sodium (Protonix -) 40 mg PO HS [facility] Last Admin: 10/19/16 22:38 Dose: 40 mg Polyethylene Glycol (Miralax (For Daily Use) -) 17 gm PO BID [facility] Last Admin: 10/19/16 22:38 Dose: 17 gm Potassium Chloride (Potassium Chloride Oral Liquid) 40 meq PO DAILY [facility] Last Admin: 10/19/16 09:56 Dose: 40 meq Sodium Chloride ([place] Nasal [place] -) 2 spray NS TID PRN PRN Reason: NASAL CONGESTION Last Admin: 10/15/16 12:27 Dose: 2 sprays - Objective Vital Signs: Vital Signs Temperature 99 F 10/19/16 22:00 Pulse Rate 124 H 10/20/16 00:00 Respiratory Rate 20 10/20/16 00:00 Blood Pressure 110/72 10/20/16 00:00 O2 Sat by Pulse Oximetry (%) 94 L 10/19/16 22:00 Constitutional: Yes: Obese Neck: Yes: WNL, Supple Cardiovascular: Yes: Pulse Irregular, S1, S2. No: Murmur Respiratory: Yes: WNL, Regular, CTA Bilaterally, Diminished, Rhonchi Gastrointestinal: Yes: WNL, Normal Bowel Sounds, Soft, Distention. No: Tenderness, Tenderness, Epigastrium Extremities: No: Cold, Cool, Cyanosis Edema: Yes Integumentary: Yes: Venous Stasis Changes Labs: CBC, BMP 10/20/16 05:15 10/20/16 05:15 INR, PTT INR 1.32 (0.82-1.09) H 10/13/16 05:35 Assessment/Plan Microbiology 10/13/16 12:00 Sputum - Endotrachea Suction/Ventilator Gram Stain - Final 10/13/16 12:00 Sputum - Endotrachea Suction/Ventilator Sputum Culture - Final NORMAL RESPIRATORY [place] 10/17/16 11:15 Blood - Peripheral Venous Blood Culture - Preliminary NO GROWTH OBTAINED AFTER 48 HOURS, INCUBATION TO CONTINUE FOR 3 DAYS. 10/17/16 11:00 Blood - Peripheral Venous Blood Culture - Preliminary NO GROWTH OBTAINED AFTER 48 HOURS, INCUBATION TO CONTINUE FOR 3 DAYS. Laboratory Tests 10/13/16 10/13/16 10/18/16 05:35 09:11 05:35 WBC Hgb Hct Plt Count ESR INR 1.32 H C-Reactive Protein 9.5 H D HIV 1&2 Antibody Screen Negative HIV P24 Antigen Negative 10/19/16 10/20/16 05:25 05:15 WBC 10.6 H Hgb 15.5 Hct 46.7 Plt Count 208 ESR 120 H INR C-Reactive Protein HIV 1&2 Antibody Screen HIV P24 Antigen Assessment Respiratory failure much improved Atrial fibrillation LV dysfunction Pneumonia on chest xray much better since antibiotic started Plan Stp Vancomycin Continue Ceftriaxone in place of Cefepime Elevated ESR noted can be looked at down the road SPEP IG levels Tucker MCDANIEL
[2016-10-20] MEDS: METOPROLOL TARTRATE 50 MG TABLET (FP) PO SCH ×3 (08:00→21:37)
[2016-10-20] MEDS ORDERED: PT OWN MED DRAWER 7, Y5N ONE (08:59)
[2016-10-20] MEDS: CEFTRIAXONE 100 ML IVPB SCH (09:35)
[2016-10-20] MEDS: APIXABAN 5 MG TABLET PO SCH ×2 (09:38→21:36)
[2016-10-20] MEDS: POTASSIUM CHLORIDE ORAL LIQUID 20 MEQ/15 ML PO SCH (09:38)
[2016-10-20] MEDS: AMINO ACIDS/PROTEIN HYDROLYS 30 ML LIQUID.PKT PO SCH ×2 (09:38→17:10)
[2016-10-20] MEDS: NICOTINE 21 MG/24 HOURS TOPICAL PATCH TD SCH (09:42)
[2016-10-20] MEDS: POLYETHYLENE GLYCOL 3350 119 GM BTL PO SCH ×2 (09:45→21:38)
[2016-10-20] MEDS: DIGOXIN 0.5 MG/2 ML AMPUL IVPUSH SCH ×2 (11:03→17:11)
[2016-10-20] MEDS ORDERED: ALBUTEROL SO4 0.083% IH SOL 2.5 MG/3 ML VIAL.NEB. NEB PRN (11:11)
--- NOTE | 2016-10-20 11:12 | PN ---
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 Insight? Baseline? Less sob than last week. Dislikes chopped food. Reassessed swallowing function with improved coordination of respiration with deglutrition..Suggest: diet upgrade to regular and thin liquid. May need assist with cxutting up food/ feeding. Selected Entries 10/19/16 10/19/16 10/19/16 00:00 02:00 06:00 Breakfast Temperature 98.6 F 97.8 F 98.1 F 10/19/16 10/19/16 10/20/16 08:00 22:00 02:00 Breakfast Temperature 98.6 F 99 F 98.6 F 10/20/16 10/20/16 06:00 10:00 Breakfast 25% Temperature 98.4 F Laboratory Tests 10/19/16 10/20/16 05:25 05:15 WBC 11.9 H 10.6 H ID reports improved PNA since A/B tx initiated. If fever spikes, congestion, cough, consider MBS to r/o silent aspiration.
--- NOTE | 2016-10-20 11:39 | PN ---
Physical Exam: SUBJECTIVE: Patient seen and examined Patient sitting in chair, dressed, stating he is going home. afebrile BP 97/67, HR 127 a fib, sattign 90% on NC 4 L. Currently off cardizem and on lopressor 50 TID. feels sob but states he cant bare to stay in hospital any longer because he has to pay bills at home. Explained to patient that he is not well enough to go home yest. explained in detail the dangest of leaving the hospital now, he needs further treatment for heart rate. Patient verbalizes understanding but insists on leaving anyway. tolerating diet. + BM. Denies chest pain, palpitations, abd pain. Is currently aaox3. OBJECTIVE: Vital Signs Period Temp Pulse Resp BP Sys/Clements Pulse Ox Last 24 Hr 98.4 F-99 F 118-134 18-25 94-129/56-89 92-96 GENERAL: aaox3, nad HEAD: Normal with no signs of trauma, obese EYES: [place] EOMA EARS, NOSE, THROAT: dry mucous membranes. NECK: supple no JVD LUNGS: b/l ronchi at bases HEART: tachy, irregular ABDOMEN: smaller, softer, 1+ edema, moderately erythematous, reduced bowel sounds MUSCULOSKELETAL: No bony deformities UPPER EXTREMITIES: 2+ pulses, mild peripheral edema. LOWER EXTREMITIES: 1+ pulses, 1+ pitting edema much improved, skin now wrinkled , chronic stasis dermatitis b/l NEUROLOGICAL: cranial nerves grossly intact PSYCHIATRIC: calm SKIN: Warm, dry Laboratory Results - last 24 hr 10/20/16 10/20/16 05:15 05:15 WBC 10.6 H RBC 4.77 Hgb 15.5 Hct 46.7 MCV 97.9 H MCHC 33.1 RDW 15.2 Plt Count 208 MPV 10.5 Neutrophils % 79.8 Lymphocytes % 5.4 L D Monocytes % 10.8 H Eosinophils % 3.7 D Basophils % 0.3 Sodium 143 Potassium 3.9 Chloride 104 Carbon Dioxide 31 D Anion Gap 8 BUN 32 H D Creatinine 0.7 Random Glucose 124 H Calcium 8.6 Phosphorus 2.6 Magnesium 1.9 D Active Medications Generic Name Dose Route Start Last Admin Trade Name Freq PRN Reason Stop Dose Admin Acetaminophen 650 mg 10/10/16 15:28 10/13/16 22:53 Tylenol - PO 650 mg Q6H PRN Administration FEVER OR PAIN Albuterol Sulfate 1 amp 10/20/16 11:11 Ventolin 0.083% Nebulizer Soln - NEB Q6H PRN SHORT OF BREATH/WHEEZING Albuterol/Ipratropium 1 amp 10/17/16 18:00 10/20/16 11:16 Duoneb - NEB Not Given QIDR [facility]NETTE Amino Acids 30 ml 10/10/16 17:30 10/20/16 09:38 Prosource No Carb Liquid Pkt PO 30 ml BID@0800,1730 [facility]TE Administration Apixaban 5 mg 10/09/16 10:30 10/20/16 09:38 Eliquis - PO 5 mg BID L[facility]NETTE Administration Chlorhexidine Gluconate 1 applic 10/05/16 22:00 10/20/16 00:19 Hibiclens For Decolonization - TP 1 applic HS LYNETTE Administration Digoxin 0.25 mg 10/20/16 10:45 10/20/16 11:03 Lanoxin Injection - IVPUSH 10/20/16 16:46 0.25 mg Q6H [facility]YNETTE Administration Ceftriaxone Sodium 100 mls @ 200 mls/hr 10/20/16 10:00 10/20/16 09:35 Rocephin 2gm Ivpb (Pre-Docked) IVPB 200 mls/hr DAILY [facility]TE Administration Lisinopril 2.5 mg 10/21/16 10:00 Prinivil PO DAILY [facility]TE Metoprolol Tartrate 50 mg 10/20/16 07:00 Lopressor - PO TID [facility]TE Nicotine 21 mg 10/16/16 10:00 10/20/16 09:42 Nicoderm Patch - TD 21 mg DAILY [facility] Administration Pantoprazole Sodium 40 mg 10/16/16 22:00 10/19/16 22:38 Protonix - PO 40 mg HS [facility]NETTE Administration Polyethylene Glycol 17 gm 10/09/16 22:00 10/20/16 09:45 Miralax (For Daily Use) - PO 17 gm BID [facility]TE Administration Potassium Chloride 40 meq 10/08/16 10:00 10/20/16 09:38 Potassium Chloride Oral Liquid PO 40 meq DAILY [facility] Administration Sodium Chloride 2 spray 10/15/16 11:18 10/15/16 12:27 [place] Nasal [place] - NS 2 sprays TID PRN Administration NASAL CONGESTION ASSESSMENT/PLAN: This is a 60 yo M every day smoker with PMH of HTN, GERD, and obesity who presents due to testicular swelling x 1 W and worsening SOB. Acute decompensated CHF -NYHA class III-IV -was in severe fluid overload, anasarca -TTE mild/mod reduced EF, mild pulm HTN, RVP 30-40, global mild/mod LV hypokinesis worse than 05/06/16 -CXR AM stable -euvolemic -lopressor 50 tid, cant titrate up bc of low BP. -start digoxin iv 0.25 q 6 hr x 2 doses, check dig level tomorrow, then do PO 0.25 -start areli or entresto when rate controlled -strict I and O -daily weight -am xray -tele monitoring a fib Fever -CT chest: goiter, RUL cystic lesion, bibasilar effusions and consolidation -sputum, blood cultures negative -ID consult: rocephin for HAP (day 3 of abx for possible hap) COPD -nebs A fib -eliquis MONIE -creat at baseline Acute hypoxic respiratory failure -4L NC -BIPAP at night for probable sleep apnea FEN -no IVF -replete lytes -chopped diet PPX: PPI, noac Dispo: ICU Problem List - Problems (1) Acute respiratory failure requiring reintubation Code(s): J96.00 - ACUTE RESPIRATORY FAILURE, UNSP W HYPOXIA OR HYPERCAPNIA (2) Atrial fibrillation, new onset Code(s): I48.91 - UNSPECIFIED ATRIAL FIBRILLATION (3) Congestive heart failure (CHF) Code(s): I50.9 - HEART FAILURE, UNSPECIFIED Qualifiers: Congestive heart failure type: combined Congestive heart failure chronicity: acute Qualified Code(s): I50.41 - Acute combined systolic ( congestive) and diastolic (congestive) heart failure (4) Edema of scrotum Code(s): N50.89 - OTHER SPECIFIED DISORDERS OF THE MALE GENITAL ORGANS (5) Lymphedema of both lower extremities Code(s): I89.0 - LYMPHEDEMA, NOT ELSEWHERE CLASSIFIED (6) Morbid obesity Code(s): E66.01 - MORBID (SEVERE) OBESITY DUE TO EXCESS CALORIES (7) Renal insufficiency Code(s): N28.9 - DISORDER OF KIDNEY AND URETER, UNSPECIFIED (8) Sleep apnea Code(s): G47.30 - SLEEP APNEA, UNSPECIFIED Qualifiers: Sleep apnea type: unspecified type Qualified Code(s): G47.30 - Sleep apnea, unspecified (9) Acute kidney injury Code(s): N17.9 - ACUTE KIDNEY FAILURE, UNSPECIFIED (10) Anasarca Code(s): R60.1 - GENERALIZED EDEMA Visit type - Emergency Visit Emergency Visit: Yes ED Registration Date: 10/05/16 Care time: The patient presented to the Emergency Department on the above date and was hospitalized for further evaluation of their emergent condition. - New Patient This patient is new to me today: No - Critical Care Critical Care patient: Yes Total Critical Care Time (in minutes): 47 Critical Care Statement: The care of this patient involved high complexity decision making to prevent further life threatening deterioration of the patient 's condition and/or to evalute & treat vital organ system(s) failure or risk of failure. - Discharge Referral Referred to [facility] No
--- NOTE | 2016-10-20 11:54 | PN ---
Teaching Attending Note Name of Resident: Nick Kang ATTENDING PHYSICIAN STATEMENT I saw and evaluated the patient. I reviewed the resident's note and discussed the case with the resident. I agree with the resident's findings and plan as documented. SUBJECTIVE: Pt seen and examined in the ICU. Continues to slowly improve. No chest pain or palpitations although heart rates remain variable. No fevers recorded. OBJECTIVE: Last Vital Signs Temp Pulse Resp BP Pulse Ox 98.4 F 130 H 25 H 96/78 96 10/20/16 06:00 10/20/16 11:03 10/20/16 09:00 10/20/16 09:00 10/20/16 10:00 Intake & Output 10/17/16 10/18/16 10/19/16 10/20/16 23:59 23:59 23:59 23:59 Intake Total 2545 1000 2000 660 Output Total 1000 3300 2200 1050 Balance 1545 -2300 -200 -390 Weight 232 lb 231 lb 14.4 oz Gen: mildly tachypneic with speaking Heart: tachycardic, irregular Lung: scattered rhonchi Abd: soft, nontender Ext: improving edema CBC, BMP 10/20/16 05:15 10/20/16 05:15 Active Medications Acetaminophen (Tylenol -) 650 mg PO Q6H PRN PRN Reason: FEVER OR PAIN Last Admin: 10/13/16 22:53 Dose: 650 mg Albuterol Sulfate (Ventolin 0.083% Nebulizer Soln -) 1 amp NEB Q6H PRN PRN Reason: SHORT OF BREATH/WHEEZING Albuterol/Ipratropium (Duoneb -) 1 amp NEB QIDR [facility] Last Admin: 10/20/16 11:16 Dose: Not Given Amino Acids (Prosource No Carb Liquid Pkt) 30 ml PO BID@0800,1730 [facility] Last Admin: 10/20/16 09:38 Dose: 30 ml Apixaban (Eliquis -) 5 mg PO BID [facility] Last Admin: 10/20/16 09:38 Dose: 5 mg Chlorhexidine Gluconate (Hibiclens For Decolonization -) 1 applic TP HS [facility] Last Admin: 10/20/16 00:19 Dose: 1 applic Digoxin (Lanoxin Injection -) 0.25 mg IVPUSH Q6H [facility] Stop: 10/20/16 16:46 Last Admin: 10/20/16 11:03 Dose: 0.25 mg Ceftriaxone Sodium (Rocephin 2gm Ivpb (Pre-Docked)) 100 mls @ 200 mls/hr IVPB DAILY [facility] Last Admin: 10/20/16 09:35 Dose: 200 mls/hr Lisinopril (Prinivil) 2.5 mg PO DAILY [facility] Metoprolol Tartrate (Lopressor -) 50 mg PO TID [facility] Nicotine (Nicoderm Patch -) 21 mg TD DAILY [facility] Last Admin: 10/20/16 09:42 Dose: 21 mg Pantoprazole Sodium (Protonix -) 40 mg PO HS [facility] Last Admin: 10/19/16 22:38 Dose: 40 mg Polyethylene Glycol (Miralax (For Daily Use) -) 17 gm PO BID [facility] Last Admin: 10/20/16 09:45 Dose: 17 gm Potassium Chloride (Potassium Chloride Oral Liquid) 40 meq PO DAILY [facility] Last Admin: 10/20/16 09:38 Dose: 40 meq Sodium Chloride ([place] Nasal [place] -) 2 spray NS TID PRN PRN Reason: NASAL CONGESTION Last Admin: 10/15/16 12:27 Dose: 2 sprays ASSESSMENT AND PLAN: Acute Hypoxic and Hypercapneic Respiratory Failure improving Acute on ?Chronic LV Systolic Heart Failure Pulmonary HTN Volume Overload Atrial Fibrillation with RVR Acute Kidney Injury Hyperthyroidism Fevers - r/o Pneumonia - antibiotics per ID - monitor urine output, creatinine - daily weights, I/Os - rate control per cardiology - continue anticoagulation - add AMADEO-I/ARB - inhaled bronchodilators - O2 to keep SpO2 >90% - PO as tolerated - aspiration precautions - DVT/GI prophylaxis - can monitor on telemetry critical care time spent reviewing chart, evaluating patient and formulating plan 35 min
--- NOTE | 2016-10-20 12:37 | PN ---
Progress Note, Physician History of Present Illness: Pt seen and examined at bedside. He is dressed and wants to go home. He says he feels well. Pt is confused. - Current Medication List Current Medications: Active Medications Acetaminophen (Tylenol -) 650 mg PO Q6H PRN PRN Reason: FEVER OR PAIN Last Admin: 10/13/16 22:53 Dose: 650 mg Albuterol Sulfate (Ventolin 0.083% Nebulizer Soln -) 1 amp NEB Q6H PRN PRN Reason: SHORT OF BREATH/WHEEZING Albuterol/Ipratropium (Duoneb -) 1 amp NEB QIDR [facility] Last Admin: 10/20/16 11:16 Dose: Not Given Amino Acids (Prosource No Carb Liquid Pkt) 30 ml PO BID@0800,1730 [facility] Last Admin: 10/20/16 09:38 Dose: 30 ml Apixaban (Eliquis -) 5 mg PO BID [facility] Last Admin: 10/20/16 09:38 Dose: 5 mg Chlorhexidine Gluconate (Hibiclens For Decolonization -) 1 applic TP HS [facility] Last Admin: 10/20/16 00:19 Dose: 1 applic Digoxin (Lanoxin Injection -) 0.25 mg IVPUSH Q6H [facility] Stop: 10/20/16 16:46 Last Admin: 10/20/16 11:03 Dose: 0.25 mg Ceftriaxone Sodium (Rocephin 2gm Ivpb (Pre-Docked)) 100 mls @ 200 mls/hr IVPB DAILY [facility] Last Admin: 10/20/16 09:35 Dose: 200 mls/hr Lisinopril (Prinivil) 2.5 mg PO DAILY [facility] Metoprolol Tartrate (Lopressor -) 50 mg PO TID [facility] Nicotine (Nicoderm Patch -) 21 mg TD DAILY [facility] Last Admin: 10/20/16 09:42 Dose: 21 mg Pantoprazole Sodium (Protonix -) 40 mg PO HS [facility] Last Admin: 10/19/16 22:38 Dose: 40 mg Polyethylene Glycol (Miralax (For Daily Use) -) 17 gm PO BID [facility] Last Admin: 10/20/16 09:45 Dose: 17 gm Potassium Chloride (Potassium Chloride Oral Liquid) 40 meq PO DAILY [facility] Last Admin: 10/20/16 09:38 Dose: 40 meq Sodium Chloride ([place] Nasal [place] -) 2 spray NS TID PRN PRN Reason: NASAL CONGESTION Last Admin: 10/15/16 12:27 Dose: 2 sprays - Objective Vital Signs: Vital Signs Temperature 98.4 F 10/20/16 06:00 Pulse Rate 130 H 10/20/16 11:03 Respiratory Rate 25 H 10/20/16 09:00 Blood Pressure 96/78 10/20/16 09:00 O2 Sat by Pulse Oximetry (%) 96 10/20/16 10:00 Constitutional: Yes: Anxious Eyes: Yes: Conjunctiva Clear HENT: Yes: Atraumatic Cardiovascular: Yes: Tachycardia, S1, S2 Respiratory: Yes: On Nasal O2 Gastrointestinal: Yes: Soft, Abdomen, Obese Genitourinary: Yes: WNL Musculoskeletal: Yes: Muscle Weakness Edema: Yes Edema: LLE: 2+, RLE: 2+ Neurological: Yes: Confusion Labs: CBC, BMP 10/20/16 05:15 10/20/16 05:15 INR, PTT INR 1.32 (0.82-1.09) H 10/13/16 05:35 - ....Imaging Chest X-ray: Report Reviewed Problem List - Problems (1) Acute kidney injury Code(s): N17.9 - ACUTE KIDNEY FAILURE, UNSPECIFIED (2) Anasarca Code(s): R60.1 - GENERALIZED EDEMA (3) Congestive heart failure (CHF) Code(s): I50.9 - HEART FAILURE, UNSPECIFIED Qualifiers: Congestive heart failure type: combined Congestive heart failure chronicity: acute Qualified Code(s): I50.41 - Acute combined systolic ( congestive) and diastolic (congestive) heart failure (4) Morbid obesity Code(s): E66.01 - MORBID (SEVERE) OBESITY DUE TO EXCESS CALORIES (5) Renal insufficiency Code(s): N28.9 - DISORDER OF KIDNEY AND URETER, UNSPECIFIED Assessment/Plan Current Medications Generic Name Dose Route Start Last Admin Trade Name Freq PRN Reason Stop Dose Admin Acetaminophen 650 mg 10/10/16 15:28 10/13/16 22:53 Tylenol - PO 650 mg Q6H PRN Administration FEVER OR PAIN Albuterol Sulfate 1 amp 10/20/16 11:11 Ventolin 0.083% Nebulizer Soln - NEB Q6H PRN SHORT OF BREATH/WHEEZING Albuterol/Ipratropium 1 amp 10/17/16 18:00 10/20/16 11:16 Duoneb - NEB Not Given QIDR [facility]TE Amino Acids 30 ml 10/10/16 17:30 10/20/16 09:38 Prosource No Carb Liquid Pkt PO 30 ml BID@0800,1730 [facility] Administration Apixaban 5 mg 10/09/16 10:30 10/20/16 09:38 Eliquis - PO 5 mg BID [facility]TE Administration Chlorhexidine Gluconate 1 applic 10/05/16 22:00 10/20/16 00:19 Hibiclens For Decolonization - TP 1 applic HS [facility]TE Administration Digoxin 0.25 mg 10/20/16 10:45 10/20/16 11:03 Lanoxin Injection - IVPUSH 10/20/16 16:46 0.25 mg Q6H [facility]TE Administration Ceftriaxone Sodium 100 mls @ 200 mls/hr 10/20/16 10:00 10/20/16 09:35 Rocephin 2gm Ivpb (Pre-Docked) IVPB 200 mls/hr DAILY [facility] Administration Lisinopril 2.5 mg 10/21/16 10:00 Prinivil PO DAILY [facility] Metoprolol Tartrate 50 mg 10/20/16 07:00 Lopressor - PO TID [facility] Nicotine 21 mg 10/16/16 10:00 10/20/16 09:42 Nicoderm Patch - TD 21 mg DAILY [facility] Administration Pantoprazole Sodium 40 mg 10/16/16 22:00 10/19/16 22:38 Protonix - PO 40 mg HS [facility]TE Administration Polyethylene Glycol 17 gm 10/09/16 22:00 10/20/16 09:45 Miralax (For Daily Use) - PO 17 gm BID [facility]TE Administration Potassium Chloride 40 meq 10/08/16 10:00 10/20/16 09:38 Potassium Chloride Oral Liquid PO 40 meq DAILY [facility] Administration Sodium Chloride 2 spray 10/15/16 11:18 10/15/16 12:27 [place] Nasal [place] - NS 2 sprays TID PRN Administration NASAL CONGESTION Impression 1. Azotemia 2. CHF acute 3. acute resp failure requiring intubation 4. new onset atrial fibrillation 5. hx of htn 6. obesity 7. chronic smoker 8. hypokalemia Plan - renal function stabilizing - lasix as needed - pt is not rate controlled - do not advise discharge, pt is in ICU - will monitor renal function - will follow - smoking cessation Dr Delacruz
--- NOTE | 2016-10-20 12:44 | PN ---
Physical Exam: SUBJECTIVE: Patient seen and examined patient sitting comfortably in chair, on nasal canula maintaining a saturation of> 90 Patient is getting agitated and wants to leave hospital and want to go home. Patient has been explained regarding the effects of leaving. Patient mother called and informed. She states she will come to hospital around 12:00pm and will talk to him OBJECTIVE: Vital Signs Period Temp Pulse Resp BP Sys/Clements Pulse Ox Last 24 Hr 98.4 F-99 F 118-134 18-25 94-129/56-80 92-96 GENERAL: awake, alert on nasal canula. HEAD: Normal with no signs of trauma. EARS, NOSE, THROAT: Ears normal, nares patent, oropharynx clear without exudates. NECK: supple without lymphadenopathy, JVD, or masses. LUNGS: Breath sounds equal bilateral, . No wheezes, HEART: s1s2 normal, hr irregularly irregular ABDOMEN: edema in anterior abdominal wall decreased, scrotum swelling decreased UPPER EXTREMITIES: 2+ pulses, warm, well-perfused. No cyanosis. LOWER EXTREMITIES: 2+ pulses, warm, well-perfused. No calf tenderness. no peripharal edema NEUROLOGICAL: unobtainable SKIN: Warm, dry, Laboratory Results - last 24 hr 10/20/16 10/20/16 05:15 05:15 WBC 10.6 H RBC 4.77 Hgb 15.5 Hct 46.7 MCV 97.9 H MCHC 33.1 RDW 15.2 Plt Count 208 MPV 10.5 Neutrophils % 79.8 Lymphocytes % 5.4 L D Monocytes % 10.8 H Eosinophils % 3.7 D Basophils % 0.3 Sodium 143 Potassium 3.9 Chloride 104 Carbon Dioxide 31 D Anion Gap 8 BUN 32 H D Creatinine 0.7 Random Glucose 124 H Calcium 8.6 Phosphorus 2.6 Magnesium 1.9 D Active Medications Generic Name Dose Route Start Last Admin Trade Name Freq PRN Reason Stop Dose Admin Acetaminophen 650 mg 10/10/16 15:28 10/13/16 22:53 Tylenol - PO 650 mg Q6H PRN Administration FEVER OR PAIN Albuterol Sulfate 1 amp 10/20/16 11:11 Ventolin 0.083% Nebulizer Soln - NEB Q6H PRN SHORT OF BREATH/WHEEZING Albuterol/Ipratropium 1 amp 10/17/16 18:00 10/20/16 11:16 Duoneb - NEB Not Given QIDR LYNETTE Amino Acids 30 ml 10/10/16 17:30 10/20/16 09:38 Prosource No Carb Liquid Pkt PO 30 ml BID@0800,1730 LYNETTE Administration Apixaban 5 mg 10/09/16 10:30 10/20/16 09:38 Eliquis - PO 5 mg BID LYNETTE Administration Chlorhexidine Gluconate 1 applic 10/05/16 22:00 10/20/16 00:19 Hibiclens For Decolonization - TP 1 applic HS LYNETTE Administration Digoxin 0.25 mg 10/20/16 10:45 10/20/16 11:03 Lanoxin Injection - IVPUSH 10/20/16 16:46 0.25 mg Q6H LYNETTE Administration Ceftriaxone Sodium 100 mls @ 200 mls/hr 10/20/16 10:00 10/20/16 09:35 Rocephin 2gm Ivpb (Pre-Docked) IVPB 200 mls/hr DAILY LYNETTE Administration Lisinopril 2.5 mg 10/21/16 10:00 Prinivil PO DAILY LYNETTE Metoprolol Tartrate 50 mg 10/20/16 07:00 Lopressor - PO TID LYNETTE Nicotine 21 mg 10/16/16 10:00 10/20/16 09:42 Nicoderm Patch - TD 21 mg DAILY LYNETTE Administration Pantoprazole Sodium 40 mg 10/16/16 22:00 10/19/16 22:38 Protonix - PO 40 mg HS LYNETTE Administration Polyethylene Glycol 17 gm 10/09/16 22:00 10/20/16 09:45 Miralax (For Daily Use) - PO 17 gm BID LYNETTE Administration Potassium Chloride 40 meq 10/08/16 10:00 10/20/16 09:38 Potassium Chloride Oral Liquid PO 40 meq DAILY LYNETTE Administration Sodium Chloride 2 spray 10/15/16 11:18 10/15/16 12:27 [place] Nasal [place] - NS 2 sprays TID PRN Administration NASAL CONGESTION ASSESSMENT/PLAN: Acute exacerbation CHF with hypoxic hypercapnic respiratory failure monitor i/o, maintain negative balance daily weight monitor vitals, follow echo : LV systolic function mild to moderately reduced daily free water intake less than 1 L low salt diet use CPAP in night as patient could have sleep apnea. start on low dose of lisinopril Fever; no fever over night blood and urine culture negative ID on case: on ceftriaxone. stop vancp and cefepime A fib on eliquis on metoprolol 50 tid cardiology on case hypernatremia could be from over diureses oral water allowed Hypotension improved keep MAP >65 MONIE ( cardiorenal) - improved - nephrology on case - avoid nephrotoxic drugs - monitor creatinine Hypokalemia and hypomagnesemia improved FEN - orally allowed -replete lytes, - low salt diet PPX: PPI, eliquis chest physiotherapy, physical therapy Dispo: ICU Visit type - Emergency Visit Emergency Visit: Yes ED Registration Date: 10/05/16 Care time: The patient presented to the Emergency Department on the above date and was hospitalized for further evaluation of their emergent condition. - New Patient This patient is new to me today: No - Critical Care Critical Care patient: Yes Total Critical Care Time (in minutes): 45 Critical Care Statement: The care of this patient involved high complexity decision making to prevent further life threatening deterioration of the patient 's condition and/or to evalute & treat vital organ system(s) failure or risk of failure.
--- NOTE | 2016-10-20 17:35 | PN ---
Teaching Attending Note Name of Resident: Hillary Reyes ATTENDING PHYSICIAN STATEMENT I saw and evaluated the patient. I reviewed the resident's note and discussed the case with the resident. I agree with the resident's findings and plan as documented. Patient is looking better, but his heart rate is back to 130's off Cardizem drip Vital Signs Temperature 98.4 F 10/20/16 06:00 Pulse Rate 132 H 10/20/16 17:11 Respiratory Rate 25 H 10/20/16 09:00 Blood Pressure 96/78 10/20/16 09:00 O2 Sat by Pulse Oximetry (%) 90 L 10/20/16 14:11 CBCD WBC 10.6 K/mm3 (4.0-10.0) H 10/20/16 05:15 RBC 4.77 M/mm3 (4.00-5.60) 10/20/16 05:15 Hgb 15.5 GM/dL (11.7-16.9) 10/20/16 05:15 Hct 46.7 % (35.4-49) 10/20/16 05:15 MCV 97.9 fl (80-96) H 10/20/16 05:15 MCHC 33.1 g/dl (32.0-35.9) 10/20/16 05:15 RDW 15.2 % (11.9-15.9) 10/20/16 05:15 Plt Count 208 K/MM3 (134-434) 10/20/16 05:15 MPV 10.5 fl (7.5-11.1) 10/20/16 05:15 CMP Sodium 143 mmol/L (136-145) 10/20/16 05:15 Potassium 3.9 mmol/L (3.5-5.1) 10/20/16 05:15 Chloride 104 mmol/L (98-107) 10/20/16 05:15 Carbon Dioxide 31 mmol/L (21-32) D 10/20/16 05:15 Anion Gap 8 (8-16) 10/20/16 05:15 BUN 32 mg/dL (7-18) H D 10/20/16 05:15 Creatinine 0.7 mg/dL (0.7-1.3) 10/20/16 05:15 Creat Clearance w eGFR > 60 (>60) 10/16/16 05:15 Random Glucose 124 mg/dL (74-106) H 10/20/16 05:15 Calcium 8.6 mg/dL (8.5-10.1) 10/20/16 05:15 Total Bilirubin 3.2 mg/dL (0.2-1.0) H 10/16/16 05:15 AST 30 U/L (15-37) 10/16/16 05:15 ALT 35 U/L (12-78) 10/16/16 05:15 Alkaline Phosphatase 76 U/L (45-117) 10/16/16 05:15 Total Protein 6.3 g/dl (6.4-8.2) L 10/16/16 05:15 Albumin 2.9 g/dl (3.4-5.0) L 10/16/16 05:15 CARDIAC ENZYMES Creatine Kinase 493 IU/L (39-308) H D 10/07/16 05:55 Troponin I < 0.02 ng/ml (0.00-0.05) 10/07/16 05:55 Current Medications Generic Name Dose Route Start Last Admin Trade Name Freq PRN Reason Stop Dose Admin Acetaminophen 650 mg 10/10/16 15:28 10/13/16 22:53 Tylenol - PO 650 mg Q6H PRN Administration FEVER OR PAIN Albuterol Sulfate 1 amp 10/20/16 11:11 Ventolin 0.083% Nebulizer Soln - NEB Q6H PRN SHORT OF BREATH/WHEEZING Albuterol/Ipratropium 1 amp 10/17/16 18:00 10/20/16 11:16 Duoneb - NEB Not Given QIDR LYNETTE Amino Acids 30 ml 10/10/16 17:30 10/20/16 17:10 Prosource No Carb Liquid Pkt PO 30 ml BID@0800,1730 LYNETTE Administration Apixaban 5 mg 10/09/16 10:30 10/20/16 09:38 Eliquis - PO 5 mg BID LYNETTE Administration Chlorhexidine Gluconate 1 applic 10/05/16 22:00 10/20/16 00:19 Hibiclens For Decolonization - TP 1 applic HS LYNETTE Administration Ceftriaxone Sodium 100 mls @ 200 mls/hr 10/20/16 10:00 10/20/16 09:35 Rocephin 2gm Ivpb (Pre-Docked) IVPB 200 mls/hr DAILY LYNETTE Administration Lisinopril 2.5 mg 10/21/16 10:00 Prinivil PO DAILY LYNETTE Metoprolol Tartrate 50 mg 10/20/16 07:00 10/20/16 15:31 Lopressor - PO 50 mg TID LYNETTE Administration Nicotine 21 mg 10/16/16 10:00 10/20/16 09:42 Nicoderm Patch - TD 21 mg DAILY LYNETTE Administration Pantoprazole Sodium 40 mg 10/16/16 22:00 10/19/16 22:38 Protonix - PO 40 mg HS LYNETTE Administration Polyethylene Glycol 17 gm 10/09/16 22:00 10/20/16 09:45 Miralax (For Daily Use) - PO 17 gm BID LYNETTE Administration Potassium Chloride 40 meq 10/08/16 10:00 10/20/16 09:38 Potassium Chloride Oral Liquid PO 40 meq DAILY LYNETTE Administration Sodium Chloride 2 spray 10/15/16 11:18 10/15/16 12:27 [place] Nasal [place] - NS 2 sprays TID PRN Administration NASAL CONGESTION Home Medications Medication Instructions Recorded Bystolic 10 mg PO DAILY 05/01/16 Hydrochlorothiazide 12.5 mg PO DAILY 05/01/16 Pantoprazole Sodium [Protonix -] 1 tab PO DAILY 05/19/16 Amlodipine/Valsartan [[place] 1 tab PO DAILY 10/05/16 5-160 mg Tablet] Ascorbate Calcium [Vitamin C] 1,000 mg PO DAILY 10/05/16 Aspirin [ASA -] 81 mg PO DAILY 10/05/16 [place]-3/Dha/Epa/Fish Oil [[place] 3 350 mg PO DAILY 10/05/16 500 Softgel] Sulfamethoxazole/Trimethoprim 1 each PO BID 10/05/16 [Bactrim Ds Tablet] Microbiology 10/17/16 11:15 Blood - Peripheral Venous Blood Culture - Preliminary NO GROWTH OBTAINED AFTER 72 HOURS, INCUBATION TO CONTINUE FOR 2 DAYS. 10/17/16 11:00 Blood - Peripheral Venous Blood Culture - Preliminary NO GROWTH OBTAINED AFTER 72 HOURS, INCUBATION TO CONTINUE FOR 2 DAYS. 10/10/16 17:30 Blood - Peripheral Venous Blood Culture - Final NO GROWTH AFTER 5 DAYS INCUBATION 10/10/16 17:30 Blood - Peripheral Venous Blood Culture - Final NO GROWTH AFTER 5 DAYS INCUBATION 10/13/16 12:00 Sputum - Endotrachea Suction/Ventilator Gram Stain - Final 10/13/16 12:00 Sputum - Endotrachea Suction/Ventilator Sputum Culture - Final NORMAL RESPIRATORY PEYTON 10/10/16 18:41 Sputum - Endotrachea Suction/Ventilator Gram Stain - Final 10/10/16 18:41 Sputum - Endotrachea Suction/Ventilator Sputum Culture - Final 10/08/16 08:40 Blood - Peripheral Venous Blood Culture - Final NO GROWTH AFTER 5 DAYS INCUBATION 10/08/16 08:40 Blood - Peripheral Venous Blood Culture - Final NO GROWTH AFTER 5 DAYS INCUBATION 10/05/16 19:00 Nasopharyngeal Swab Respiratory Virus Panel - Final 10/11/16 13:45 Urine - Urine Hilario Urine Culture - Final NO GROWTH OBTAINED 10/08/16 20:00 Sputum - Endotrachea Suction/Ventilator Gram Stain - Final 10/08/16 20:00 Sputum - Endotrachea Suction/Ventilator Sputum Culture - Final NORMAL RESPIRATORY PEYTON 10/05/16 19:00 Blood - Central Line Blood Culture - Final NO GROWTH AFTER 5 DAYS INCUBATION 10/05/16 19:00 Blood - Central Line Blood Culture - Final NO GROWTH AFTER 5 DAYS INCUBATION 10/08/16 10:20 Urine - Urine Hilario Urine Culture - Final NO GROWTH OBTAINED 10/05/16 19:00 Urine - Urine Hilario Urine Culture - Final NO GROWTH OBTAINED 10/05/16 19:00 Nasopharyngeal Swab Influenza Types A,B Antigen (URSZULA) - Final 10/05/16 19:00 Nasopharyngeal Swab - Final Echocardiography revealed mild to moderate LV systolic dysfunction, moderate TR , RVSP of 30-40 mmHg ASSESSMENT/PLAN: 60 y/o man with ho GERD, HTN, previously mildly reduced EF who presented with scrotal swelling and was diagnosed with acute hypoxic resp failure due to acute CHF exacerbation #Afib with RVR qith rate of 132 off cardizem drip with [id number] score of 2 on Eliquis, will add digoxin 0.25mg IV x2 q6h then 0.25mg daily since hr is not controlled , discussed with . #Possible pneumonia on IV antibiotic improving ( off Vanco and cefepime) , was started on Rocephin IV TODAY INSTEAD OF CEFEPIME . # Acute hypoxic hypercapnic respiratory failure: s/p intubation and extubation now on VM and on Bipap prn. # Acute systolic/diastolic CHF exacerbation ; Lasix is on hold now #s/p Cardiogenic shock: off pressors now # MONIE :resolved # Electrolytes abn with hypokalemia :replete as needed DVT px:Eliquis Further Cardiac w/u when patient is more stable
[2016-10-20] MEDS: PANTOPRAZOLE 40 MG TABLET (FP) PO SCH (21:36)
[2016-10-21] MEDS: diphenhydrAMINE HCL 25 MG CAPSULE (FP) PO SCH ×2 (03:21→21:59)
[2016-10-21] MEDS: ALBUTEROL SO4 2.5/IPRATROPIUM 0.5 INH SOL 3 ML VIAL.NEB. NEB SCH ×5 (06:09→23:25)
[2016-10-21 07:44] LABS: CALCIUM 8.7 mg/dL (8.5-10.1); COCKROFT - GAULT 160.7; CREATININE 0.7 mg/dL (0.7-1.3); MAGNESIUM 1.9 mg/dL (1.8-2.4)
[2016-10-21 07:45] LABS: BASOPHIL 0.7 % (0-2.0); EOSINOPHIL 4.5 % (0-4.5); MCH 32.5 pg (25.7-33.7); MCHC 33.2 g/dl (32.0-35.9); MEAN CELL VOLUME 98.1 fl (80-96); MEAN PLT VOLUME 10.6 fl (7.5-11.1); NEUTROPHILS 73.7 % (42.8-82.8); PLATELET COUNT 165 K/MM3 (134-434); RDW 14.9 % (11.9-15.9); WHITE BLOOD COUNT 8.6 K/mm3 (4.0-10.0)
[2016-10-21] MEDS: METOPROLOL TARTRATE 50 MG TABLET (FP) PO SCH ×3 (07:51→21:59)
[2016-10-21 07:58] LABS: DIGOXIN LEVEL 0.7161 ng/ml (0.8-2.0)
--- NOTE | 2016-10-21 09:34 | PN ---
Progress Note, MANAGER ESTATE - Note Progress Note: Selected Entries 10/19/16 10/20/16 10/20/16 20:30 02:00 06:00 Breakfast Supper 25% Temperature 98.6 F 98.4 F 10/20/16 10/20/16 10/20/16 10:00 14:00 18:00 Breakfast 25% Supper Temperature 98.4 F 98.5 F 10/20/16 10/20/16 10/21/16 18:33 22:00 02:00 Breakfast Supper Temperature 98.4 F 98.1 F 98.0 F 10/21/16 06:00 Breakfast Supper Temperature 98.6 F Laboratory Tests 10/20/16 10/21/16 05:15 06:00 WBC 10.6 H Cancelled Pt transferred from ICU to telemetry. Diet upgraded to regular/thin liquid. Nodysphagia reported or observed at this time. Monitor tolerance of upgraded diet.
[2016-10-21] MEDS: AMINO ACIDS/PROTEIN HYDROLYS 30 ML LIQUID.PKT PO SCH ×2 (10:56→17:36)
[2016-10-21] MEDS: APIXABAN 5 MG TABLET PO SCH ×2 (10:57→21:59)
[2016-10-21] MEDS: POLYETHYLENE GLYCOL 3350 119 GM BTL PO SCH ×2 (10:57→22:00)
[2016-10-21] MEDS: NICOTINE 21 MG/24 HOURS TOPICAL PATCH TD SCH (10:57)
[2016-10-21] MEDS: POTASSIUM CHLORIDE ORAL LIQUID 20 MEQ/15 ML PO SCH (10:57)
[2016-10-21] MEDS: LISINOPRIL 5 MG TABLET (FP) PO SCH (10:58)
[2016-10-21] MEDS: CEFTRIAXONE 100 ML IVPB SCH (10:59)
[2016-10-21] MEDS: DIGOXIN 0.25 MG TABLET (FP) PO SCH (11:36)
--- NOTE | 2016-10-21 12:01 | PN ---
Progress Note (short form) - Note Progress Note: Chief Complaint: Events noted, notes reviewed, lethargic but easily arousable sitting in a chair, denies any chest pain, denies dyspnea, remains in atrial fibrillation with periods of rapid ventricular response History of Present Illness: Seen and examined on telemetry. Events noted, notes reviewed, lethargic but easily arousable sitting in a chair, denies any chest pain, denies dyspnea, remains in atrial fibrillation with periods of rapid ventricular response Echocardiography revealed mild to moderate LV systolic dysfunction, moderate TR , RVSP of 30-40 mmHg Medications: Current Medications Acetaminophen (Tylenol -) 650 mg PO Q6H PRN PRN Reason: FEVER OR PAIN Last Admin: 10/13/16 22:53 Dose: 650 mg Albuterol Sulfate (Ventolin 0.083% Nebulizer Soln -) 1 amp NEB Q6H PRN PRN Reason: SHORT OF BREATH/WHEEZING Albuterol/Ipratropium (Duoneb -) 1 amp NEB QIDR [facility] Last Admin: 10/21/16 06:09 Dose: 1 amp Amino Acids (Prosource No Carb Liquid Pkt) 30 ml PO BID@0800,1730 [facility] Last Admin: 10/21/16 10:56 Dose: 30 ml Apixaban (Eliquis -) 5 mg PO BID [facility] Last Admin: 10/21/16 10:57 Dose: 5 mg Digoxin (Lanoxin -) 0.25 mg PO DAILY [facility] Last Admin: 10/21/16 11:36 Dose: 0.25 mg Diphenhydramine HCl (Benadryl -) 25 mg PO HS [facility] Last Admin: 10/21/16 03:21 Dose: 25 mg Ceftriaxone Sodium (Rocephin 2gm Ivpb (Pre-Docked)) 100 mls @ 200 mls/hr IVPB DAILY [facility] Last Admin: 10/21/16 10:59 Dose: 200 mls/hr Lisinopril (Prinivil) 2.5 mg PO DAILY [facility] Last Admin: 10/21/16 10:58 Dose: 2.5 mg Metoprolol Tartrate (Lopressor -) 50 mg PO TID [facility] Last Admin: 10/21/16 07:51 Dose: 50 mg Nicotine (Nicoderm Patch -) 21 mg TD DAILY [facility] Last Admin: 10/21/16 10:57 Dose: 21 mg Pantoprazole Sodium (Protonix -) 40 mg PO HS [facility] Last Admin: 10/20/16 21:36 Dose: 40 mg Polyethylene Glycol (Miralax (For Daily Use) -) 17 gm PO BID [facility] Last Admin: 10/21/16 10:57 Dose: Not Given Potassium Chloride (Potassium Chloride Oral Liquid) 40 meq PO DAILY [facility] Last Admin: 10/21/16 10:57 Dose: 40 meq Sodium Chloride ([place] Nasal [place] -) 2 spray NS TID PRN PRN Reason: NASAL CONGESTION Last Admin: 10/15/16 12:27 Dose: 2 sprays Review of Systems Constitutional: denies Chills or Fever Respiratory: denies: Dyspnea Cardiovascular: As noted above Gastrointestinal: denies Nausea, Vomiting, Diarrhea or Constipation or Abdominal Discomfort Genitourinary: No Symptoms Reported Musculoskeletal: No Symptoms Reported Vital Signs: Last Vital Signs Temp Pulse Resp BP Pulse Ox 98.6 F 112 H 16 138/53 91 L 10/21/16 06:00 10/21/16 11:36 10/21/16 06:00 10/21/16 06:00 10/20/16 23:00 Intake & Output 10/18/16 10/19/16 10/20/16 10/21/16 23:59 23:59 23:59 23:59 Intake Total 1000 2000 1780 850 Output Total 3300 2200 1050 Balance -2300 -200 730 850 Weight 231 lb 14.4 oz Neck: Supple Negative JVD Respiratory: Diminished Breath Sounds at the Bases Cardiovascular: S1 S2 Irregularly Irregular Gastrointestinal: Soft Benign Normal Bowel Sounds Ext: 1+ Edema Bilaterally Labs: CBC, BMP 10/21/16 06:00 10/21/16 06:00 INR, PTT INR 1.32 (0.82-1.09) H 10/13/16 05:35 Hepatic Panel Total Bilirubin 3.2 mg/dL (0.2-1.0) H 10/16/16 05:15 AST 30 U/L (15-37) 10/16/16 05:15 ALT 35 U/L (12-78) 10/16/16 05:15 Alkaline Phosphatase 76 U/L (45-117) 10/16/16 05:15 Albumin 2.9 g/dl (3.4-5.0) L 10/16/16 05:15 Assessment/Plan ASSESSMENT: 1. Post acute class III-IV NYHA classification LV failure related to systolic/ diastolic LV dysfunction, respiratory failure, resolved, currently pre-renal azotemia, resolving pulmonary infiltrates etiology to be determined infectious vs. non cardiogenic pulmonary edema 2. Unclear if ischemic dilated cardiomyopathy vs. ideopathic cardiomyopathy vs. tachycardia induced cardiomyopathy (atrial fibrillation) 3. CAD angina pectoris to be excluded 4. Persistent atrial fibrillation with periods of rapid ventricular response, [id number] score of 2 5. HTN 6. Hypercholesterolemia 7. Acute renal insufficiency, pre-renal azotemia 8. Polycythmia, resolved 9. Thrombocytopenia, resolved PLAN: 1. Continue to hold Lasix 2. Continue Lopressor, hemodynamics permitting 3. Continue Lisinopril, hemodynamics permitting with close monitoring of renal function 4. Continue digoxin with close monitoring of level 5. Continue NOAC's, Eliquis 6. Antibiotics as per the ID service 7. PT and ambulate 8. Further evaluation as outpatient for CAD including MPI study Bran Carlin MD
--- NOTE | 2016-10-21 12:27 | PN ---
Progress Note, Physician History of Present Illness: PULMONARY DROWSY,OOB-CHAIR,-RESP DISTRESS - Current Medication List Current Medications: Active Medications Acetaminophen (Tylenol -) 650 mg PO Q6H PRN PRN Reason: FEVER OR PAIN Last Admin: 10/13/16 22:53 Dose: 650 mg Albuterol Sulfate (Ventolin 0.083% Nebulizer Soln -) 1 amp NEB Q6H PRN PRN Reason: SHORT OF BREATH/WHEEZING Albuterol/Ipratropium (Duoneb -) 1 amp NEB QIDR [facility] Last Admin: 10/21/16 11:25 Dose: 1 amp Amino Acids (Prosource No Carb Liquid Pkt) 30 ml PO BID@0800,1730 [facility] Last Admin: 10/21/16 10:56 Dose: 30 ml Apixaban (Eliquis -) 5 mg PO BID [facility] Last Admin: 10/21/16 10:57 Dose: 5 mg Digoxin (Lanoxin -) 0.25 mg PO DAILY [facility] Last Admin: 10/21/16 11:36 Dose: 0.25 mg Diphenhydramine HCl (Benadryl -) 25 mg PO HS [facility] Last Admin: 10/21/16 03:21 Dose: 25 mg Furosemide (Lasix -) 40 mg PO DAILY [facility] Ceftriaxone Sodium (Rocephin 2gm Ivpb (Pre-Docked)) 100 mls @ 200 mls/hr IVPB DAILY [facility] Last Admin: 10/21/16 10:59 Dose: 200 mls/hr Lisinopril (Prinivil) 2.5 mg PO DAILY [facility] Last Admin: 10/21/16 10:58 Dose: 2.5 mg Metoprolol Tartrate (Lopressor -) 50 mg PO TID [facility] Last Admin: 10/21/16 07:51 Dose: 50 mg Nicotine (Nicoderm Patch -) 21 mg TD DAILY [facility] Last Admin: 10/21/16 10:57 Dose: 21 mg Pantoprazole Sodium (Protonix -) 40 mg PO HS [facility] Last Admin: 10/20/16 21:36 Dose: 40 mg Polyethylene Glycol (Miralax (For Daily Use) -) 17 gm PO BID [facility] Last Admin: 10/21/16 10:57 Dose: Not Given Potassium Chloride (Potassium Chloride Oral Liquid) 40 meq PO DAILY [facility] Last Admin: 10/21/16 10:57 Dose: 40 meq Sodium Chloride ([place] Nasal [place] -) 2 spray NS TID PRN PRN Reason: NASAL CONGESTION Last Admin: 10/15/16 12:27 Dose: 2 sprays - Objective Vital Signs: Vital Signs Temperature 98.6 F 10/21/16 06:00 Pulse Rate 112 H 10/21/16 11:36 Respiratory Rate 16 10/21/16 06:00 Blood Pressure 138/53 10/21/16 06:00 O2 Sat by Pulse Oximetry (%) 94 L 10/21/16 11:00 Constitutional: Yes: Obese, Other (DROWSY) Eyes: Yes: WNL HENT: Yes: WNL Neck: Yes: WNL Cardiovascular: Yes: Pulse Irregular, S1, S2 Respiratory: Yes: Diminished (POOR INSPIRATORY EFFORT) Gastrointestinal: Yes: Normal Bowel Sounds, Soft Extremities: Yes: WNL Edema: Yes Labs: CBC, BMP 10/21/16 06:00 10/21/16 06:00 INR, PTT INR 1.32 (0.82-1.09) H 10/13/16 05:35 Problem List - Problems (1) Congestive heart failure (CHF) Code(s): I50.9 - HEART FAILURE, UNSPECIFIED Qualifiers: Congestive heart failure type: combined Congestive heart failure chronicity: acute Qualified Code(s): I50.41 - Acute combined systolic ( congestive) and diastolic (congestive) heart failure (2) Respiratory failure requiring intubation Code(s): J96.90 - RESPIRATORY FAILURE, UNSP, UNSP W HYPOXIA OR HYPERCAPNIA (3) Sleep apnea Code(s): G47.30 - SLEEP APNEA, UNSPECIFIED Qualifiers: Sleep apnea type: unspecified type Qualified Code(s): G47.30 - Sleep apnea, unspecified (4) Acute respiratory failure with hypoxia and hypercarbia Code(s): J96.01 - ACUTE RESPIRATORY FAILURE WITH HYPOXIA J96.02 - ACUTE RESPIRATORY FAILURE WITH HYPERCAPNIA (5) Acute on chronic diastolic (congestive) heart failure Code(s): I50.33 - ACUTE ON CHRONIC DIASTOLIC (CONGESTIVE) HEART FAILURE (6) Atrial fibrillation, new onset Code(s): I48.91 - UNSPECIFIED ATRIAL FIBRILLATION (7) Morbid obesity Code(s): E66.01 - MORBID (SEVERE) OBESITY DUE TO EXCESS CALORIES Assessment/Plan ASSESSMENT AND PLAN: Acute Hypoxic and Hypercapneic Respiratory Failure improving Acute on ?Chronic LV Systolic Heart Failure Pulmonary HTN Volume Overload Atrial Fibrillation with RVR Acute Kidney Injury Hyperthyroidism Fevers - r/o Pneumonia - antibiotics per ID - monitor urine output, creatinine - daily weights, I/Os - rate control per cardiology - anticoagulation - add AMADEO-I/ARB - inhaled bronchodilators - O2 to keep SpO2 >90% - aspiration precautions - DVT/GI prophylaxis - abg DR MELTON
--- NOTE | 2016-10-21 12:35 | PN ---
Physical Exam: SUBJECTIVE: Patient seen and examined Patient sitting in chair, NAD. transferrred to [facility] yesterday,w as combative and had to be restrained, now calm. Yesterday his mother changed his mind about leaving ama. afebrile BP 138/53, HR 116 a fib, sattign 91% on NC 4 L. Has been ambulating to bathroom. tolerating diet. + BM. Denies chest pain, palpitations, abd pain. Is currently aaox3. OBJECTIVE: Vital Signs Period Temp Pulse Resp BP Sys/Clements Pulse Ox Last 24 Hr 98.0 F-98.6 F 87-137 16-30 101-138/53-80 90-94 GENERAL: aaox3, nad HEAD: Normal with no signs of trauma, obese EYES: [place] EOMA EARS, NOSE, THROAT: dry mucous membranes. NECK: supple no JVD LUNGS: b/l ronchi at bases HEART: tachy, irregular ABDOMEN: smaller, softer, 1+ edema, moderately erythematous, reduced bowel sounds MUSCULOSKELETAL: No bony deformities UPPER EXTREMITIES: 2+ pulses, mild peripheral edema. LOWER EXTREMITIES: 1+ pulses, 1+ pitting edema much improved, skin now wrinkled , chronic stasis dermatitis b/l NEUROLOGICAL: cranial nerves grossly intact PSYCHIATRIC: calm SKIN: Warm, dry Laboratory Results - last 24 hr 10/21/16 10/21/16 10/21/16 06:00 06:00 06:00 WBC Cancelled 8.6 Corrected WBC (auto) Cancelled RBC Cancelled 4.53 Hgb Cancelled 14.8 Hct Cancelled 44.5 MCV Cancelled 98.1 H MCHC Cancelled 33.2 RDW Cancelled 14.9 Plt Count Cancelled 165 D MPV Cancelled 10.6 Neutrophils % 73.7 Lymphocytes % 7.7 L D Monocytes % 13.4 H Eosinophils % 4.5 Basophils % 0.7 Differential Comment Cancelled Platelet Estimate Cancelled Platelet Comment Cancelled RBC Morphology Cancelled Sodium 144 Potassium 4.0 Chloride 104 Carbon Dioxide 35 H Anion Gap 5 L BUN 22 H D Creatinine 0.7 Random Glucose 108 H Calcium 8.7 Phosphorus 3.0 Magnesium 1.9 Digoxin 0.7161 L Active Medications Generic Name Dose Route Start Last Admin Trade Name Freq PRN Reason Stop Dose Admin Acetaminophen 650 mg 10/10/16 15:28 10/13/16 22:53 Tylenol - PO 650 mg Q6H PRN Administration FEVER OR PAIN Albuterol Sulfate 1 amp 10/20/16 11:11 Ventolin 0.083% Nebulizer Soln - NEB Q6H PRN SHORT OF BREATH/WHEEZING Albuterol/Ipratropium 1 amp 10/17/16 18:00 10/21/16 11:25 Duoneb - NEB 1 amp QIDR LYNETTE Administration Amino Acids 30 ml 10/10/16 17:30 10/21/16 10:56 Prosource No Carb Liquid Pkt PO 30 ml BID@0800,1730 LYNETTE Administration Apixaban 5 mg 10/09/16 10:30 10/21/16 10:57 Eliquis - PO 5 mg BID LYNETTE Administration Digoxin 0.25 mg 10/21/16 10:45 10/21/16 11:36 Lanoxin - PO 0.25 mg DAILY LYNETTE Administration Diphenhydramine HCl 25 mg 10/21/16 03:15 10/21/16 03:21 Benadryl - PO 25 mg HS LYNETTE Administration Furosemide 40 mg 10/21/16 12:15 Lasix - PO DAILY LYNETTE Ceftriaxone Sodium 100 mls @ 200 mls/hr 10/20/16 10:00 10/21/16 10:59 Rocephin 2gm Ivpb (Pre-Docked) IVPB 200 mls/hr DAILY [facility]TE Administration Lisinopril 2.5 mg 10/21/16 10:00 10/21/16 10:58 Prinivil PO 2.5 mg DAILY L[facility]NETTE Administration Metoprolol Tartrate 50 mg 10/20/16 07:00 10/21/16 07:51 Lopressor - PO 50 mg TID LYNETTE Administration Nicotine 21 mg 10/16/16 10:00 10/21/16 10:57 Nicoderm Patch - TD 21 mg DAILY L[facility]NETTE Administration Pantoprazole Sodium 40 mg 10/16/16 22:00 10/20/16 21:36 Protonix - PO 40 mg HS LYNETTE Administration Polyethylene Glycol 17 gm 10/09/16 22:00 10/21/16 10:57 Miralax (For Daily Use) - PO Not Given BID LYNETTE Potassium Chloride 40 meq 10/08/16 10:00 10/21/16 10:57 Potassium Chloride Oral Liquid PO 40 meq DAILY LYNETTE Administration Sodium Chloride 2 spray 10/15/16 11:18 10/15/16 12:27 [place] Nasal [place] - NS 2 sprays TID PRN Administration NASAL CONGESTION ASSESSMENT/PLAN: This is a 60 yo M every day smoker with PMH of HTN, GERD, and obesity who presents due to testicular swelling x 1 W and worsening SOB. Acute decompensated CHF -NYHA class III-IV -was in severe fluid overload, anasarca -TTE mild/mod reduced EF, mild pulm HTN, RVP 30-40, global mild/mod LV hypokinesis worse than 05/06/16 -euvolemic -lopressor 50 tid, will eventually titrate up -s/p digoxin iv 0.25 q 6 hr x 2 doses, dig level 0.7 therapeutic, start PO 0.25 -start lasix 40 d PO -start areli or entresto when rate controlled -will need eventual cardioversion per cardio -strict I and O -daily weight -tele monitoring a fib -PT eval Fever -CT chest: goiter, RUL cystic lesion, bibasilar effusions and consolidation -sputum, blood cultures negative -ID consult: rocephin for HAP (day 4 of abx for possible hap) COPD -nebs A fib -eliquis MONIE -creat at baseline Acute hypoxic respiratory failure -4L NC -BIPAP at night for probable sleep apnea FEN -no IVF -replete lytes -chopped diet PPX: PPI, noac Dispo: ICU Problem List - Problems (1) Acute respiratory failure requiring reintubation Code(s): J96.00 - ACUTE RESPIRATORY FAILURE, UNSP W HYPOXIA OR HYPERCAPNIA (2) Atrial fibrillation, new onset Code(s): I48.91 - UNSPECIFIED ATRIAL FIBRILLATION (3) Congestive heart failure (CHF) Code(s): I50.9 - HEART FAILURE, UNSPECIFIED Qualifiers: Congestive heart failure type: combined Congestive heart failure chronicity: acute Qualified Code(s): I50.41 - Acute combined systolic ( congestive) and diastolic (congestive) heart failure (4) Edema of scrotum Code(s): N50.89 - OTHER SPECIFIED DISORDERS OF THE MALE GENITAL ORGANS (5) Lymphedema of both lower extremities Code(s): I89.0 - LYMPHEDEMA, NOT ELSEWHERE CLASSIFIED (6) Morbid obesity Code(s): E66.01 - MORBID (SEVERE) OBESITY DUE TO EXCESS CALORIES (7) Renal insufficiency Code(s): N28.9 - DISORDER OF KIDNEY AND URETER, UNSPECIFIED (8) Sleep apnea Code(s): G47.30 - SLEEP APNEA, UNSPECIFIED Qualifiers: Sleep apnea type: unspecified type Qualified Code(s): G47.30 - Sleep apnea, unspecified (9) Acute kidney injury Code(s): N17.9 - ACUTE KIDNEY FAILURE, UNSPECIFIED (10) Anasarca Code(s): R60.1 - GENERALIZED EDEMA Visit type - Emergency Visit Emergency Visit: Yes ED Registration Date: 10/05/16 Care time: The patient presented to the Emergency Department on the above date and was hospitalized for further evaluation of their emergent condition. - New Patient This patient is new to me today: No - Critical Care Critical Care patient: No - Discharge Referral Referred to [facility] No
--- NOTE | 2016-10-21 13:02 | PN ---
Teaching Attending Note Name of Resident: Hillary Reyes ATTENDING PHYSICIAN STATEMENT I saw and evaluated the patient. I reviewed the resident's note and discussed the case with the resident. I agree with the resident's findings and plan as documented. SUBJECTIVE: Patient has no complaints. He denies chest pain, palpitations, shortness of breath, OBJECTIVE: Vital Signs Period Temp Pulse Resp BP Sys/Clements Pulse Ox Last 24 Hr 98.0 F-98.6 F 87-137 16-30 101-138/53-80 90-94 HEART: Iregularly irregular LUNGS: Clear ABDOMEN: Obese, soft, non-tender, non-distended, normal BS EXTREMITIES: 1+ edema ASSESSMENT AND PLAN: 60 y/o man with ho GERD, HTN, previously mildly reduced EF who presented with scrotal swelling and was diagnosed with acute hypoxic resp failure due to acute CHF exacerbation #Afib with RVR qith rate of 132 off cardizem drip with [id number] score of 2 on Eliquis, will add digoxin 0.25mg IV x2 q6h then 0.25mg daily since hr is not controlled , discussed with . #Possible pneumonia on IV antibiotic improving ( off Vanco and cefepime) , was started on Rocephin IV TODAY INSTEAD OF CEFEPIME . # Acute hypoxic hypercapnic respiratory failure: s/p intubation and extubation now on VM and on Bipap prn. # Acute systolic/diastolic CHF exacerbation ; Lasix is on hold now #s/p Cardiogenic shock: off pressors now # MONIE :resolved # Electrolytes abn with hypokalemia :replete as needed DVT px:Eliquis Further Cardiac w/u when patient is more stable
[2016-10-21 14:02] LABS: ARTERIAL BLD GAS O2 SATURATION 91.2 % (90-98.9); ARTERIAL BLOOD GAS BASE EXCESS 3.2 meq/l (-2-2); ARTERIAL BLOOD GAS HCO3 27.4 meq/L (22-26); ARTERIAL BLOOD GAS PO2 59.2 mmHg (80-100); ARTERIAL BLOOD GAS pH 7.43 (7.35-7.45)
[2016-10-21 14:03] LABS: ALLENS TEST POSITIVE; ART PUNCT SITE RIGHT RADIAL; LPM/O2% 21%; PT. ON O2? YES; TYPE OF O2 ROOM AIR
[2016-10-21] MEDS: FUROSEMIDE 40 MG TABLET (FP) PO SCH (14:15)
--- NOTE | 2016-10-21 14:52 | PN ---
Progress Note, Physician History of Present Illness: Pt seen and examined at bedside. He is awake and alert. He feels that his breathing is improved. - Current Medication List Current Medications: Active Medications Acetaminophen (Tylenol -) 650 mg PO Q6H PRN PRN Reason: FEVER OR PAIN Last Admin: 10/13/16 22:53 Dose: 650 mg Albuterol Sulfate (Ventolin 0.083% Nebulizer Soln -) 1 amp NEB Q6H PRN PRN Reason: SHORT OF BREATH/WHEEZING Albuterol/Ipratropium (Duoneb -) 1 amp NEB QIDR [facility] Last Admin: 10/21/16 11:25 Dose: 1 amp Amino Acids (Prosource No Carb Liquid Pkt) 30 ml PO BID@0800,1730 [facility] Last Admin: 10/21/16 10:56 Dose: 30 ml Apixaban (Eliquis -) 5 mg PO BID [facility] Last Admin: 10/21/16 10:57 Dose: 5 mg Digoxin (Lanoxin -) 0.25 mg PO DAILY [facility] Last Admin: 10/21/16 11:36 Dose: 0.25 mg Diphenhydramine HCl (Benadryl -) 25 mg PO HS [facility] Last Admin: 10/21/16 03:21 Dose: 25 mg Furosemide (Lasix -) 40 mg PO DAILY [facility] Last Admin: 10/21/16 14:15 Dose: 40 mg Ceftriaxone Sodium (Rocephin 2gm Ivpb (Pre-Docked)) 100 mls @ 200 mls/hr IVPB DAILY [facility] Last Admin: 10/21/16 10:59 Dose: 200 mls/hr Lisinopril (Prinivil) 2.5 mg PO DAILY [facility] Last Admin: 10/21/16 10:58 Dose: 2.5 mg Metoprolol Tartrate (Lopressor -) 50 mg PO TID [facility] Last Admin: 10/21/16 14:15 Dose: 50 mg Nicotine (Nicoderm Patch -) 21 mg TD DAILY [facility] Last Admin: 10/21/16 10:57 Dose: 21 mg Pantoprazole Sodium (Protonix -) 40 mg PO HS [facility] Last Admin: 10/20/16 21:36 Dose: 40 mg Polyethylene Glycol (Miralax (For Daily Use) -) 17 gm PO BID [facility] Last Admin: 10/21/16 10:57 Dose: Not Given Potassium Chloride (Potassium Chloride Oral Liquid) 40 meq PO DAILY L[facility]NETTE Last Admin: 10/21/16 10:57 Dose: 40 meq Sodium Chloride ([place] Nasal [place] -) 2 spray NS TID PRN PRN Reason: NASAL CONGESTION Last Admin: 10/15/16 12:27 Dose: 2 sprays - Objective Vital Signs: Vital Signs Temperature 98 F 10/21/16 10:00 Pulse Rate 112 H 10/21/16 11:36 Respiratory Rate 18 10/21/16 10:00 Blood Pressure 134/78 10/21/16 10:00 O2 Sat by Pulse Oximetry (%) 94 L 10/21/16 11:00 Constitutional: Yes: Calm Eyes: Yes: Conjunctiva Clear HENT: Yes: Atraumatic Cardiovascular: Yes: S1, S2 Respiratory: Yes: Diminished, On Nasal O2 Gastrointestinal: Yes: Soft, Abdomen, Obese Genitourinary: Yes: WNL Musculoskeletal: Yes: WNL Edema: Yes Edema: LLE: 1+, RLE: 1+ Integumentary: Yes: Venous Stasis Changes Neurological: Yes: Oriented Labs: CBC, BMP 10/21/16 06:00 10/21/16 06:00 INR, PTT INR 1.32 (0.82-1.09) H 10/13/16 05:35 Problem List - Problems (1) Acute kidney injury Code(s): N17.9 - ACUTE KIDNEY FAILURE, UNSPECIFIED (2) Anasarca Code(s): R60.1 - GENERALIZED EDEMA (3) Congestive heart failure (CHF) Code(s): I50.9 - HEART FAILURE, UNSPECIFIED Qualifiers: Congestive heart failure type: combined Congestive heart failure chronicity: acute Qualified Code(s): I50.41 - Acute combined systolic ( congestive) and diastolic (congestive) heart failure (4) Morbid obesity Code(s): E66.01 - MORBID (SEVERE) OBESITY DUE TO EXCESS CALORIES (5) Renal insufficiency Code(s): N28.9 - DISORDER OF KIDNEY AND URETER, UNSPECIFIED Assessment/Plan Current Medications Generic Name Dose Route Start Last Admin Trade Name Freq PRN Reason Stop Dose Admin Acetaminophen 650 mg 10/10/16 15:28 10/13/16 22:53 Tylenol - PO 650 mg Q6H PRN Administration FEVER OR PAIN Albuterol Sulfate 1 amp 10/20/16 11:11 Ventolin 0.083% Nebulizer Soln - NEB Q6H PRN SHORT OF BREATH/WHEEZING Albuterol/Ipratropium 1 amp 10/17/16 18:00 10/21/16 11:25 Duoneb - NEB 1 amp QIDR LYNETTE Administration Amino Acids 30 ml 10/10/16 17:30 10/21/16 10:56 Prosource No Carb Liquid Pkt PO 30 ml BID@0800,1730 LYNETTE Administration Apixaban 5 mg 10/09/16 10:30 10/21/16 10:57 Eliquis - PO 5 mg BID LYNETTE Administration Digoxin 0.25 mg 10/21/16 10:45 10/21/16 11:36 Lanoxin - PO 0.25 mg DAILY LYNETTE Administration Diphenhydramine HCl 25 mg 10/21/16 03:15 10/21/16 03:21 Benadryl - PO 25 mg HS LYNETTE Administration Furosemide 40 mg 10/21/16 12:15 10/21/16 14:15 Lasix - PO 40 mg DAILY LYNETTE Administration Ceftriaxone Sodium 100 mls @ 200 mls/hr 10/20/16 10:00 10/21/16 10:59 Rocephin 2gm Ivpb (Pre-Docked) IVPB 200 mls/hr DAILY LYNETET Administration Lisinopril 2.5 mg 10/21/16 10:00 10/21/16 10:58 Prinivil PO 2.5 mg DAILY LYNETTE Administration Metoprolol Tartrate 50 mg 10/20/16 07:00 10/21/16 14:15 Lopressor - PO 50 mg TID LYNETTE Administration Nicotine 21 mg 10/16/16 10:00 10/21/16 10:57 Nicoderm Patch - TD 21 mg DAILY LYNETTE Administration Pantoprazole Sodium 40 mg 10/16/16 22:00 10/20/16 21:36 Protonix - PO 40 mg HS LYNETTE Administration Polyethylene Glycol 17 gm 10/09/16 22:00 10/21/16 10:57 Miralax (For Daily Use) - PO Not Given BID LYNETTE Potassium Chloride 40 meq 10/08/16 10:00 10/21/16 10:57 Potassium Chloride Oral Liquid PO 40 meq DAILY LYNETTE Administration Sodium Chloride 2 spray 10/15/16 11:18 10/15/16 12:27 [place] Nasal [place] - NS 2 sprays TID PRN Administration NASAL CONGESTION Impression 1. Azotemia 2. CHF acute 3. acute resp failure requiring intubation 4. new onset atrial fibrillation 5. hx of htn 6. obesity 7. chronic smoker 8. hypokalemia Plan - cont lasix - renal function is stabilizing - rate is improving - monitor on tele - will monitor renal function - will follow - smoking cessation Dr Delacruz
[2016-10-21] MEDS: PANTOPRAZOLE 40 MG TABLET (FP) PO SCH (21:59)
[2016-10-22] MEDS: METOPROLOL TARTRATE 50 MG TABLET (FP) PO SCH ×4 (06:21→21:58)
[2016-10-22] MEDS: ALBUTEROL SO4 2.5/IPRATROPIUM 0.5 INH SOL 3 ML VIAL.NEB. NEB SCH ×3 (06:22→17:58)
[2016-10-22 07:56] LABS: MCH 32.6 pg (25.7-33.7); MCHC 33.2 g/dl (32.0-35.9); MEAN CELL VOLUME 98.1 fl (80-96); MEAN PLT VOLUME 10.3 fl (7.5-11.1); PLATELET COUNT 163 K/MM3 (134-434); RDW 14.9 % (11.9-15.9); WHITE BLOOD COUNT 10.5 K/mm3 (4.0-10.0)
[2016-10-22 08:22] LABS: CALCIUM 8.5 mg/dL (8.5-10.1)
[2016-10-22 08:26] LABS: COCKROFT - GAULT 202.93; CREATININE 0.6 mg/dL (0.7-1.3); MAGNESIUM 1.8 mg/dL (1.8-2.4); PHOSPHOROUS 3.2 mg/dL (2.5-4.9)
--- NOTE | 2016-10-22 08:57 | PN ---
Progress Note (short form) - Note Progress Note: awake and alert wants to go home Vital Signs Period Temp Pulse Resp BP Sys/Clements Pulse Ox Last 24 Hr 97.9 F-98.9 F 87-122 18-20 97-134/55-78 93-94 cor-rrr lungs bibasilar crackles abd soft,nt ext +edema CBC, BMP 10/22/16 07:00 10/22/16 07:00 Microbiology 10/17/16 11:15 Blood - Peripheral Venous Blood Culture - Preliminary NO GROWTH OBTAINED AFTER 96 HOURS, INCUBATION TO CONTINUE FOR 1 DAYS. 10/17/16 11:00 Blood - Peripheral Venous Blood Culture - Preliminary NO GROWTH OBTAINED AFTER 96 HOURS, INCUBATION TO CONTINUE FOR 1 DAYS. a/p CHF AFIB Pneumonia s/p respiratory failure cigarette smoker daily weights, diuresis day #5 antibiotics consider switch to augmentin when ready for discharge plan total of 7 days antibiotics
[2016-10-22] MEDS: AMINO ACIDS/PROTEIN HYDROLYS 30 ML LIQUID.PKT PO SCH ×2 (09:54→17:46)
[2016-10-22] MEDS: POTASSIUM CHLORIDE ORAL LIQUID 20 MEQ/15 ML PO SCH (09:54)
[2016-10-22] MEDS: APIXABAN 5 MG TABLET PO SCH ×2 (09:55→21:58)
[2016-10-22] MEDS: DIGOXIN 0.25 MG TABLET (FP) PO SCH (09:55)
[2016-10-22] MEDS: NICOTINE 21 MG/24 HOURS TOPICAL PATCH TD SCH (09:56)
[2016-10-22] MEDS: FUROSEMIDE 40 MG TABLET (FP) PO SCH (09:56)
[2016-10-22] MEDS: LISINOPRIL 5 MG TABLET (FP) PO SCH (09:56)
[2016-10-22] MEDS: POLYETHYLENE GLYCOL 3350 119 GM BTL PO SCH ×2 (09:57→21:58)
[2016-10-22] MEDS: CEFTRIAXONE 100 ML IVPB SCH (09:57)
--- NOTE | 2016-10-22 10:49 | PN ---
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 Grossly oriented, although reports being here for "over 8 weeks." He worked for "the [employer]" and lives alone on "[address] in [place]" Speech now precise. Pt tolerate upgraded diet without difficulty. Selected Entries 10/21/16 10/21/16 10/21/16 02:00 06:00 10:00 Breakfast Lunch Supper Temperature 98.0 F 98.6 F 98 F 10/21/16 10/21/16 10/21/16 11:37 14:48 18:00 Breakfast 100% Lunch 100% Supper 100% Temperature 98.1 F 97.9 F 10/21/16 10/21/16 10/22/16 21:00 22:00 02:00 Breakfast Lunch Supper 100% Temperature 98.2 F 98.9 F 10/22/16 10/22/16 10/22/16 07:00 09:58 10:02 Breakfast 100% Lunch Supper Temperature 98.5 F 97.8 F
[2016-10-22 12:28] LABS: DIGOXIN LEVEL 0.6404 ng/ml (0.8-2.0)
--- NOTE | 2016-10-22 12:45 | PN ---
Progress Note, Physician History of Present Illness: Remains in rapid afib, significant diuresis achieved. - Current Medication List Current Medications: Active Medications Acetaminophen (Tylenol -) 650 mg PO Q6H PRN PRN Reason: FEVER OR PAIN Last Admin: 10/13/16 22:53 Dose: 650 mg Albuterol Sulfate (Ventolin 0.083% Nebulizer Soln -) 1 amp NEB Q6H PRN PRN Reason: SHORT OF BREATH/WHEEZING Albuterol/Ipratropium (Duoneb -) 1 amp NEB QIDR [facility] Last Admin: 10/22/16 12:08 Dose: 1 amp Amino Acids (Prosource No Carb Liquid Pkt) 30 ml PO BID@0800,1730 [facility] Last Admin: 10/22/16 09:54 Dose: 30 ml Apixaban (Eliquis -) 5 mg PO BID [facility] Last Admin: 10/22/16 09:55 Dose: 5 mg Digoxin (Lanoxin -) 0.25 mg PO DAILY [facility] Last Admin: 10/22/16 09:55 Dose: 0.25 mg Diphenhydramine HCl (Benadryl -) 25 mg PO HS [facility] Last Admin: 10/21/16 21:59 Dose: 25 mg Furosemide (Lasix -) 40 mg PO DAILY [facility] Last Admin: 10/22/16 09:56 Dose: 40 mg Ceftriaxone Sodium (Rocephin 2gm Ivpb (Pre-Docked)) 100 mls @ 200 mls/hr IVPB DAILY [facility] Last Admin: 10/22/16 09:57 Dose: 200 mls/hr Lisinopril (Prinivil) 2.5 mg PO DAILY [facility] Last Admin: 10/22/16 09:56 Dose: 2.5 mg Metoprolol Tartrate (Lopressor -) 50 mg PO TID [facility] Last Admin: 10/22/16 06:21 Dose: 50 mg Nicotine (Nicoderm Patch -) 21 mg TD DAILY [facility] Last Admin: 10/22/16 09:56 Dose: 21 mg Pantoprazole Sodium (Protonix -) 40 mg PO HS [facility] Last Admin: 10/21/16 21:59 Dose: 40 mg Polyethylene Glycol (Miralax (For Daily Use) -) 17 gm PO BID [facility] Last Admin: 10/22/16 09:57 Dose: Not Given Potassium Chloride (Potassium Chloride Oral Liquid) 40 meq PO DAILY [facility] Last Admin: 04/19/17 09:54 Dose: 40 meq Sodium Chloride ([place] Nasal [place] -) 2 spray NS TID PRN PRN Reason: NASAL CONGESTION Last Admin: 10/15/16 12:27 Dose: 2 sprays - Objective Vital Signs: Vital Signs Temperature 97.8 F 10/22/16 10:02 Pulse Rate 76 10/22/16 12:07 Respiratory Rate 19 10/22/16 10:02 Blood Pressure 123/68 10/22/16 10:02 O2 Sat by Pulse Oximetry (%) 88 L 10/22/16 12:07 Constitutional: Yes: No Distress, Calm Neck: Yes: Supple Cardiovascular: Yes: Tachycardia, Pulse Irregular Respiratory: Yes: Regular, Diminished Gastrointestinal: Yes: Normal Bowel Sounds, Soft Edema: Yes Edema: LLE: Trace, RLE: Trace Labs: CBC, BMP 10/22/16 07:00 10/22/16 07:00 INR, PTT INR 1.32 (0.82-1.09) H 10/13/16 05:35 Problem List - Problems (1) Atrial fibrillation, new onset Code(s): I48.91 - UNSPECIFIED ATRIAL FIBRILLATION (2) Sleep apnea Code(s): G47.30 - SLEEP APNEA, UNSPECIFIED Qualifiers: Sleep apnea type: unspecified type Qualified Code(s): G47.30 - Sleep apnea, unspecified (3) Acute on chronic diastolic (congestive) heart failure Code(s): I50.33 - ACUTE ON CHRONIC DIASTOLIC (CONGESTIVE) HEART FAILURE (4) Acute hypercapnic respiratory failure Code(s): J96.02 - ACUTE RESPIRATORY FAILURE WITH HYPERCAPNIA Assessment/Plan 1. Acute Hypoxic and Hypercapneic Respiratory Failure improving 2. Acute on chronic LV diastolic/systolic Heart Failure 3. CAD angina pectoris to be excluded 4. Persistent atrial fibrillation with periods of rapid ventricular response, [id number] score of 2 5. HTN 6. Hypercholesterolemia 7. Polycythmia, resolved 8. Thrombocytopenia, resolved PLAN: 1. Continue Lasix 40 qd with monitor renal recovery and electrolytes 2. Increase Lopressor 50 QID, hemodynamics permitting 3. Continue Lisinopril 2.5 qd , hemodynamics permitting with close monitoring of renal function 4. Continue digoxin 0.25 qd with close monitoring of level 5. Continue NOAC's with Eliquis 5 bid 6. Complete antibiotics course per the ID service 7. PT and ambulate, BD, 8. Further evaluation as outpatient for CAD including MPI study
--- NOTE | 2016-10-22 14:50 | PN ---
Progress Note, Physician History of Present Illness: pulmonary alert,oob-chair,-sob,-cp - Current Medication List Current Medications: Active Medications Acetaminophen (Tylenol -) 650 mg PO Q6H PRN PRN Reason: FEVER OR PAIN Last Admin: 10/13/16 22:53 Dose: 650 mg Albuterol Sulfate (Ventolin 0.083% Nebulizer Soln -) 1 amp NEB Q6H PRN PRN Reason: SHORT OF BREATH/WHEEZING Albuterol/Ipratropium (Duoneb -) 1 amp NEB QIDR [facility] Last Admin: 10/22/16 12:08 Dose: 1 amp Amino Acids (Prosource No Carb Liquid Pkt) 30 ml PO BID@0800,1730 [facility] Last Admin: 10/22/16 09:54 Dose: 30 ml Apixaban (Eliquis -) 5 mg PO BID [facility] Last Admin: 10/22/16 09:55 Dose: 5 mg Digoxin (Lanoxin -) 0.25 mg PO DAILY [facility] Last Admin: 10/22/16 09:55 Dose: 0.25 mg Diphenhydramine HCl (Benadryl -) 25 mg PO HS [facility] Last Admin: 10/21/16 21:59 Dose: 25 mg Furosemide (Lasix -) 40 mg PO DAILY [facility] Last Admin: 10/22/16 09:56 Dose: 40 mg Ceftriaxone Sodium (Rocephin 2gm Ivpb (Pre-Docked)) 100 mls @ 200 mls/hr IVPB DAILY [facility] Last Admin: 10/22/16 09:57 Dose: 200 mls/hr Lisinopril (Prinivil) 2.5 mg PO DAILY [facility] Last Admin: 10/22/16 09:56 Dose: 2.5 mg Metoprolol Tartrate (Lopressor -) 50 mg PO QID [facility] Last Admin: 10/22/16 13:38 Dose: 50 mg Nicotine (Nicoderm Patch -) 21 mg TD DAILY [facility] Last Admin: 10/22/16 09:56 Dose: 21 mg Pantoprazole Sodium (Protonix -) 40 mg PO HS [facility] Last Admin: 10/21/16 21:59 Dose: 40 mg Polyethylene Glycol (Miralax (For Daily Use) -) 17 gm PO BID [facility] Last Admin: 10/22/16 09:57 Dose: Not Given Potassium Chloride (Potassium Chloride Oral Liquid) 40 meq PO DAILY [facility] Last Admin: 10/22/16 09:54 Dose: 40 meq Sodium Chloride ([place] Nasal [place] -) 2 spray NS TID PRN PRN Reason: NASAL CONGESTION Last Admin: 10/15/16 12:27 Dose: 2 sprays - Objective Vital Signs: Vital Signs Temperature 97.8 F 10/22/16 10:02 Pulse Rate 76 10/22/16 12:07 Respiratory Rate 19 10/22/16 10:02 Blood Pressure 123/68 10/22/16 10:02 O2 Sat by Pulse Oximetry (%) 88 L 10/22/16 12:51 Constitutional: Yes: Calm, Obese Eyes: Yes: WNL HENT: Yes: WNL Neck: Yes: WNL Cardiovascular: Yes: Pulse Irregular, S1, S2 Respiratory: Yes: Diminished, Rales (few bibasilar rales) Gastrointestinal: Yes: Normal Bowel Sounds, Soft Extremities: Yes: WNL Edema: Yes Labs: CBC, BMP 10/22/16 07:00 10/22/16 07:00 INR, PTT INR 1.32 (0.82-1.09) H 10/13/16 05:35 Laboratory Tests 10/21/16 14:00 ABG pH 7.43 ABG pCO2 at Pt Temp 42.4 D ABG pO2 at Pt Temp 59.2 L D ABG HCO3 27.4 H ABG O2 Sat (Measured) 91.2 O2 Delivery Device Room air Oxygen Flow Rate 21% Problem List - Problems (1) Congestive heart failure (CHF) Code(s): I50.9 - HEART FAILURE, UNSPECIFIED Qualifiers: Congestive heart failure type: combined Congestive heart failure chronicity: acute Qualified Code(s): I50.41 - Acute combined systolic ( congestive) and diastolic (congestive) heart failure (2) Respiratory failure requiring intubation Code(s): J96.90 - RESPIRATORY FAILURE, UNSP, UNSP W HYPOXIA OR HYPERCAPNIA (3) Sleep apnea Code(s): G47.30 - SLEEP APNEA, UNSPECIFIED Qualifiers: Sleep apnea type: unspecified type Qualified Code(s): G47.30 - Sleep apnea, unspecified (4) Acute respiratory failure with hypoxia and hypercarbia Code(s): J96.01 - ACUTE RESPIRATORY FAILURE WITH HYPOXIA J96.02 - ACUTE RESPIRATORY FAILURE WITH HYPERCAPNIA (5) Acute on chronic diastolic (congestive) heart failure Code(s): I50.33 - ACUTE ON CHRONIC DIASTOLIC (CONGESTIVE) HEART FAILURE (6) Atrial fibrillation, new onset Code(s): I48.91 - UNSPECIFIED ATRIAL FIBRILLATION (7) Morbid obesity Code(s): E66.01 - MORBID (SEVERE) OBESITY DUE TO EXCESS CALORIES Assessment/Plan ASSESSMENT AND PLAN: Acute Hypoxic and Hypercapneic Respiratory Failure improving Acute on ?Chronic LV Systolic Heart Failure Pulmonary HTN Volume Overload Atrial Fibrillation with RVR Acute Kidney Injury Hyperthyroidism - antibiotics per ID - monitor urine output, creatinine - daily weights, I/Os - rate control per cardiology - anticoagulation - add AMADEO-I/ARB - inhaled bronchodilators - O2 to keep SpO2 >90% - aspiration precautions - DVT/GI prophylaxis DR MELTON
--- NOTE | 2016-10-22 14:51 | PN ---
Physical Exam: SUBJECTIVE: Patient seen and examined Patient sitting in chair, NAD. afebrile BP 100/64, HR 103 a fib, sattign 91% on NC 4 L. Ambulated down hallway with PT. tolerating diet. + BM. Denies chest pain, palpitations, abd pain. Very unhappy about need to stay in hospital, threatening to leave ama. dangers of leaving [facility]a once again explained. OBJECTIVE: Vital Signs Period Temp Pulse Resp BP Sys/Clements Pulse Ox Last 24 Hr 97.8 F-98.9 F 76-109 18-19 97-123/55-68 88-93 GENERAL: aaox3, nad HEAD: Normal with no signs of trauma, obese EYES: Perrla EOMI EARS, NOSE, THROAT: moist mucous membranes. NECK: supple no JVD LUNGS: b/l ronchi at bases HEART: tachy, irregular ABDOMEN obese, soft, 1+ edema, + bowel sounds MUSCULOSKELETAL: No bony deformities UPPER EXTREMITIES: 2+ pulses, mild peripheral edema. LOWER EXTREMITIES: 1+ pulses, 1+ pitting edema, chronic stasis dermatitis b/l NEUROLOGICAL: cranial nerves grossly intact PSYCHIATRIC: calm SKIN: Warm, dry Laboratory Results - last 24 hr 10/22/16 10/22/16 10/22/16 07:00 07:00 07:00 WBC 10.5 H RBC 4.42 Hgb 14.4 Hct 43.4 MCV 98.1 H MCHC 33.2 RDW 14.9 Plt Count 163 MPV 10.3 Sodium 143 Potassium 4.0 Chloride 105 Carbon Dioxide 31 Anion Gap 7 L BUN 20 H Creatinine 0.6 L Random Glucose 113 H Calcium 8.5 Phosphorus 3.2 Magnesium 1.8 Digoxin 0.6404 L Cancelled Active Medications Generic Name Dose Route Start Last Admin Trade Name Freq PRN Reason Stop Dose Admin Acetaminophen 650 mg 10/10/16 15:28 10/13/16 22:53 Tylenol - PO 650 mg Q6H PRN Administration FEVER OR PAIN Albuterol Sulfate 1 amp 10/20/16 11:11 Ventolin 0.083% Nebulizer Soln - NEB Q6H PRN SHORT OF BREATH/WHEEZING Albuterol/Ipratropium 1 amp 10/17/16 18:00 10/22/16 12:08 Duoneb - NEB 1 amp QIDR LYNETTE Administration Amino Acids 30 ml 10/10/16 17:30 10/22/16 09:54 Prosource No Carb Liquid Pkt PO 30 ml BID@0800,1730 L[facility]NETTE Administration Apixaban 5 mg 10/09/16 10:30 10/22/16 09:55 Eliquis - PO 5 mg BID L[facility]NETTE Administration Digoxin 0.25 mg 10/21/16 10:45 10/22/16 09:55 Lanoxin - PO 0.25 mg DAILY [facility]NETTE Administration Diphenhydramine HCl 25 mg 10/21/16 03:15 10/21/16 21:59 Benadryl - PO 25 mg HS LYNETTE Administration Furosemide 40 mg 10/21/16 12:15 10/22/16 09:56 Lasix - PO 40 mg DAILY LYNETTE Administration Ceftriaxone Sodium 100 mls @ 200 mls/hr 10/20/16 10:00 10/22/16 09:57 Rocephin 2gm Ivpb (Pre-Docked) IVPB 200 mls/hr DAILY [facility] Administration Lisinopril 2.5 mg 10/21/16 10:00 10/22/16 09:56 Prinivil PO 2.5 mg DAILY [facility]TE Administration Metoprolol Tartrate 50 mg 10/22/16 14:00 10/22/16 13:38 Lopressor - PO 50 mg QID LYNETTE Administration Nicotine 21 mg 10/16/16 10:00 10/22/16 09:56 Nicoderm Patch - TD 21 mg DAILY [facility]NETTE Administration Pantoprazole Sodium 40 mg 10/16/16 22:00 10/21/16 21:59 Protonix - PO 40 mg HS LYNETTE Administration Polyethylene Glycol 17 gm 10/09/16 22:00 10/22/16 09:57 Miralax (For Daily Use) - PO Not Given BID [facility] Potassium Chloride 40 meq 10/08/16 10:00 10/22/16 09:54 Potassium Chloride Oral Liquid PO 40 meq DAILY [facility] Administration Sodium Chloride 2 spray 10/15/16 11:18 10/15/16 12:27 [place] Nasal [place] - NS 2 sprays TID PRN Administration NASAL CONGESTION ASSESSMENT/PLAN: This is a 60 yo M every day smoker with PMH of HTN, GERD, and obesity who presents due to testicular swelling x 1 W and worsening SOB. Acute decompensated CHF -NYHA class III-IV -was in severe fluid overload, anasarca -TTE mild/mod reduced EF, mild pulm HTN, RVP 30-40, global mild/mod LV hypokinesis worse than 05/06/16 -euvolemic -lopressor 50 tid, will eventually titrate up -Gigoxin PO 0.25 daily dig level 0.6 -lasix 40 d PO -Lisinopril 2.5 d -better rate control (low 100's), but suboptimal, ideally should be <100 -will need eventual cardioversion outpatient per cardio -daily weight (251lb) -tele monitoring a fib -PT Fever -resolved -ID consult: rocephin d 3 for possible HAP (day 5 of abx for possible hap). will stop abx tomorrow COPD -nebs A fib -eliquis MONIE -creat at baseline Acute hypoxic respiratory failure -4L NC -BIPAP at night for probable sleep apnea -refused pre/post today FEN -no IVF -replete lytes -chopped diet PPX: PPI, noac Dispo: tele Problem List - Problems (1) Acute respiratory failure requiring reintubation Code(s): J96.00 - ACUTE RESPIRATORY FAILURE, UNSP W HYPOXIA OR HYPERCAPNIA (2) Atrial fibrillation, new onset Code(s): I48.91 - UNSPECIFIED ATRIAL FIBRILLATION (3) Congestive heart failure (CHF) Code(s): I50.9 - HEART FAILURE, UNSPECIFIED Qualifiers: Congestive heart failure type: combined Congestive heart failure chronicity: acute Qualified Code(s): I50.41 - Acute combined systolic ( congestive) and diastolic (congestive) heart failure (4) Edema of scrotum Code(s): N50.89 - OTHER SPECIFIED DISORDERS OF THE MALE GENITAL ORGANS (5) Lymphedema of both lower extremities Code(s): I89.0 - LYMPHEDEMA, NOT ELSEWHERE CLASSIFIED (6) Morbid obesity Code(s): E66.01 - MORBID (SEVERE) OBESITY DUE TO EXCESS CALORIES (7) Renal insufficiency Code(s): N28.9 - DISORDER OF KIDNEY AND URETER, UNSPECIFIED (8) Sleep apnea Code(s): G47.30 - SLEEP APNEA, UNSPECIFIED Qualifiers: Sleep apnea type: unspecified type Qualified Code(s): G47.30 - Sleep apnea, unspecified (9) Acute kidney injury Code(s): N17.9 - ACUTE KIDNEY FAILURE, UNSPECIFIED (10) Anasarca Code(s): R60.1 - GENERALIZED EDEMA Visit type - Emergency Visit Emergency Visit: Yes ED Registration Date: 10/05/16 Care time: The patient presented to the Emergency Department on the above date and was hospitalized for further evaluation of their emergent condition. - New Patient This patient is new to me today: No - Critical Care Critical Care patient: No - Discharge Referral Referred to [facility] Med P.C.: No
--- NOTE | 2016-10-22 17:14 | PN ---
Progress Note, Physician History of Present Illness: Pt seen and examined at bedside. He is awake and alert. He denies shortness of breath. - Current Medication List Current Medications: Active Medications Acetaminophen (Tylenol -) 650 mg PO Q6H PRN PRN Reason: FEVER OR PAIN Last Admin: 10/13/16 22:53 Dose: 650 mg Albuterol Sulfate (Ventolin 0.083% Nebulizer Soln -) 1 amp NEB Q6H PRN PRN Reason: SHORT OF BREATH/WHEEZING Albuterol/Ipratropium (Duoneb -) 1 amp NEB QIDR [facility] Last Admin: 10/22/16 12:08 Dose: 1 amp Amino Acids (Prosource No Carb Liquid Pkt) 30 ml PO BID@0800,1730 [facility] Last Admin: 10/22/16 09:54 Dose: 30 ml Apixaban (Eliquis -) 5 mg PO BID [facility] Last Admin: 10/22/16 09:55 Dose: 5 mg Digoxin (Lanoxin -) 0.25 mg PO DAILY [facility] Last Admin: 10/22/16 09:55 Dose: 0.25 mg Diphenhydramine HCl (Benadryl -) 25 mg PO HS [facility] Last Admin: 10/21/16 21:59 Dose: 25 mg Furosemide (Lasix -) 40 mg PO DAILY [facility] Last Admin: 10/22/16 09:56 Dose: 40 mg Ceftriaxone Sodium (Rocephin 2gm Ivpb (Pre-Docked)) 100 mls @ 200 mls/hr IVPB DAILY [facility] Last Admin: 10/22/16 09:57 Dose: 200 mls/hr Lisinopril (Prinivil) 2.5 mg PO DAILY [facility] Last Admin: 10/22/16 09:56 Dose: 2.5 mg Metoprolol Tartrate (Lopressor -) 50 mg PO QID [facility] Last Admin: 10/22/16 13:38 Dose: 50 mg Nicotine (Nicoderm Patch -) 21 mg TD DAILY [facility] Last Admin: 10/22/16 09:56 Dose: 21 mg Pantoprazole Sodium (Protonix -) 40 mg PO HS [facility] Last Admin: 10/21/16 21:59 Dose: 40 mg Polyethylene Glycol (Miralax (For Daily Use) -) 17 gm PO BID [facility] Last Admin: 10/22/16 09:57 Dose: Not Given Potassium Chloride (Potassium Chloride Oral Liquid) 40 meq PO DAILY [facility] Last Admin: 10/22/16 09:54 Dose: 40 meq Sodium Chloride ([place] Nasal [place] -) 2 spray NS TID PRN PRN Reason: NASAL CONGESTION Last Admin: 10/15/16 12:27 Dose: 2 sprays - Objective Vital Signs: Vital Signs Temperature 97.9 F 10/22/16 14:30 Pulse Rate 121 H 10/22/16 14:30 Respiratory Rate 20 10/22/16 14:30 Blood Pressure 118/54 10/22/16 14:30 O2 Sat by Pulse Oximetry (%) 88 L 10/22/16 12:51 Constitutional: Yes: Calm Eyes: Yes: Conjunctiva Clear HENT: Yes: Atraumatic Cardiovascular: Yes: Pulse Irregular, S1, S2 Respiratory: Yes: On Nasal O2 Genitourinary: Yes: WNL Musculoskeletal: Yes: WNL Integumentary: Yes: Venous Stasis Changes Neurological: Yes: Oriented Psychiatric: Yes: Oriented Labs: CBC, BMP 10/22/16 07:00 10/22/16 07:00 INR, PTT INR 1.32 (0.82-1.09) H 10/13/16 05:35 Problem List - Problems (1) Acute kidney injury Code(s): N17.9 - ACUTE KIDNEY FAILURE, UNSPECIFIED (2) Anasarca Code(s): R60.1 - GENERALIZED EDEMA (3) Congestive heart failure (CHF) Code(s): I50.9 - HEART FAILURE, UNSPECIFIED Qualifiers: Congestive heart failure type: combined Congestive heart failure chronicity: acute Qualified Code(s): I50.41 - Acute combined systolic ( congestive) and diastolic (congestive) heart failure (4) Morbid obesity Code(s): E66.01 - MORBID (SEVERE) OBESITY DUE TO EXCESS CALORIES (5) Renal insufficiency Code(s): N28.9 - DISORDER OF KIDNEY AND URETER, UNSPECIFIED Assessment/Plan Current Medications Generic Name Dose Route Start Last Admin Trade Name Freq PRN Reason Stop Dose Admin Acetaminophen 650 mg 10/10/16 15:28 10/13/16 22:53 Tylenol - PO 650 mg Q6H PRN Administration FEVER OR PAIN Albuterol Sulfate 1 amp 10/20/16 11:11 Ventolin 0.083% Nebulizer Soln - NEB Q6H PRN SHORT OF BREATH/WHEEZING Albuterol/Ipratropium 1 amp 10/17/16 18:00 10/22/16 12:08 Duoneb - NEB 1 amp QIDR LYNETTE Administration Amino Acids 30 ml 10/10/16 17:30 10/22/16 09:54 Prosource No Carb Liquid Pkt PO 30 ml BID@0800,1730 L[facility]NETTE Administration Apixaban 5 mg 10/09/16 10:30 10/22/16 09:55 Eliquis - PO 5 mg BID [facility] Administration Digoxin 0.25 mg 10/21/16 10:45 10/22/16 09:55 Lanoxin - PO 0.25 mg DAILY [facility] Administration Diphenhydramine HCl 25 mg 10/21/16 03:15 10/21/16 21:59 Benadryl - PO 25 mg HS [facility]NETTE Administration Furosemide 40 mg 10/21/16 12:15 10/22/16 09:56 Lasix - PO 40 mg DAILY [facility]TE Administration Ceftriaxone Sodium 100 mls @ 200 mls/hr 10/20/16 10:00 10/22/16 09:57 Rocephin 2gm Ivpb (Pre-Docked) IVPB 200 mls/hr DAILY [facility] Administration Lisinopril 2.5 mg 10/21/16 10:00 10/22/16 09:56 Prinivil PO 2.5 mg DAILY [facility]TE Administration Metoprolol Tartrate 50 mg 10/22/16 14:00 10/22/16 13:38 Lopressor - PO 50 mg QID [facility]NETTE Administration Nicotine 21 mg 10/16/16 10:00 10/22/16 09:56 Nicoderm Patch - TD 21 mg DAILY [facility]NETTE Administration Pantoprazole Sodium 40 mg 10/16/16 22:00 10/21/16 21:59 Protonix - PO 40 mg HS LYNETTE Administration Polyethylene Glycol 17 gm 10/09/16 22:00 10/22/16 09:57 Miralax (For Daily Use) - PO Not Given BID [facility] Potassium Chloride 40 meq 10/08/16 10:00 10/22/16 09:54 Potassium Chloride Oral Liquid PO 40 meq DAILY [facility] Administration Sodium Chloride 2 spray 10/15/16 11:18 10/15/16 12:27 [place] Nasal [place] - NS 2 sprays TID PRN Administration NASAL CONGESTION Impression 1. Azotemia 2. CHF acute 3. acute resp failure requiring intubation 4. new onset atrial fibrillation 5. hx of htn 6. obesity 7. chronic smoker 8. hypokalemia Plan - monitor renal function - cont lasix - will follow PRN - cardio follow up - smoking cessation Dr Delacruz
--- NOTE | 2016-10-22 19:48 | PN ---
Teaching Attending Note Name of Resident: Hillary Reyes ATTENDING PHYSICIAN STATEMENT I saw and evaluated the patient. I reviewed the resident's note and discussed the case with the resident. I agree with the resident's findings and plan as documented. SUBJECTIVE: Refused to answer questions and refused PE . ASSESSMENT AND PLAN: 60 y/o man with ho GERD, HTN, previously mildly reduced EF who presented with scrotal swelling and was diagnosed with acute hypoxic resp failure due to acute CHF exacerbation 1- Acute hypoxic hypercapnic reap failure: 2/2 acute CHF exacerbation and possible PNA - cont po lasix - cont lisinopril and BB - resp status significantly imporved - cont to better control rate 2-New onset A fib with RVR: better - cont dig ( level 0.6 ) - cont lopressor 50 TID - cont eliquis 3-fever due to PNA . resolved cont Abx . ID help appreciated 4- MONIE : resolved PT eval pre-post Sat O2 : pt refused close from dc to home with VNS pending rate controlled
[2016-10-22] MEDS: diphenhydrAMINE HCL 25 MG CAPSULE (FP) PO SCH (21:57)
[2016-10-22] MEDS: PANTOPRAZOLE 40 MG TABLET (FP) PO SCH (21:58)
[2016-10-22] MEDS ORDERED: PT OWN MED DRAWER 7, Y5N ONE (22:36)
[2016-10-23 07:48] LABS: MCH 32.4 pg (25.7-33.7); MCHC 33.1 g/dl (32.0-35.9); MEAN CELL VOLUME 97.8 fl (80-96); MEAN PLT VOLUME 10.1 fl (7.5-11.1); PLATELET COUNT 199 K/MM3 (134-434); RDW 14.5 % (11.9-15.9)
[2016-10-23 08:25] LABS: CALCIUM 8.7 mg/dL (8.5-10.1); COCKROFT - GAULT 176.01; CREATININE 0.7 mg/dL (0.7-1.3); MAGNESIUM 1.6 mg/dL (1.8-2.4); PHOSPHOROUS 2.6 mg/dL (2.5-4.9)
[2016-10-23 08:37] LABS: DIGOXIN LEVEL 0.6416 ng/ml (0.8-2.0)
[2016-10-23] MEDS ORDERED: MAGNESIUM SULF 50% (8.12 MEQ/2 ML-1 GM VIAL) IVPB ONE (09:30)
[2016-10-23] MEDS: AMINO ACIDS/PROTEIN HYDROLYS 30 ML LIQUID.PKT PO SCH ×2 (10:03→17:49)
[2016-10-23] MEDS: POTASSIUM CHLORIDE ORAL LIQUID 20 MEQ/15 ML PO SCH (10:04)
[2016-10-23] MEDS: CEFTRIAXONE 100 ML IVPB SCH (10:04)
[2016-10-23] MEDS: NICOTINE 21 MG/24 HOURS TOPICAL PATCH TD SCH (10:07)
[2016-10-23] MEDS: METOPROLOL TARTRATE 50 MG TABLET (FP) PO SCH ×3 (10:07→17:49)
[2016-10-23] MEDS: LISINOPRIL 5 MG TABLET (FP) PO SCH (10:08)
[2016-10-23] MEDS: POLYETHYLENE GLYCOL 3350 119 GM BTL PO SCH (10:08)
[2016-10-23] MEDS: FUROSEMIDE 40 MG TABLET (FP) PO SCH (10:09)
[2016-10-23] MEDS: DIGOXIN 0.25 MG TABLET (FP) PO SCH (10:09)
[2016-10-23] MEDS: APIXABAN 5 MG TABLET PO SCH (10:09)
--- NOTE | 2016-10-23 11:36 | PN ---
Progress Note (short form) - Note Progress Note: OOB to chair. Frustrated that it took several attempts to draw AM labs. Overall feels better. Saturation 90% on RA at rest. Intake & Output 10/20/16 10/21/16 10/22/16 10/23/16 23:59 23:59 23:59 23:59 Intake Total 1780 1700 1390 1100 Output Total 1050 Balance 730 1700 1390 1100 Weight 251 lb 254 lb Last Vital Signs Temp Pulse Resp BP Pulse Ox 97.6 F 11 L 19 107/64 92 L 10/23/16 09:00 10/23/16 10:09 10/23/16 09:00 10/23/16 09:00 10/22/16 21:00 Active Medications Acetaminophen (Tylenol -) 650 mg PO Q6H PRN PRN Reason: FEVER OR PAIN Last Admin: 10/13/16 22:53 Dose: 650 mg Albuterol Sulfate (Ventolin 0.083% Nebulizer Soln -) 1 amp NEB Q6H PRN PRN Reason: SHORT OF BREATH/WHEEZING Amino Acids (Prosource No Carb Liquid Pkt) 30 ml PO BID@0800,1730 [facility] Last Admin: 10/23/16 10:03 Dose: 30 ml Apixaban (Eliquis -) 5 mg PO BID [facility] Last Admin: 10/23/16 10:09 Dose: 5 mg Digoxin (Lanoxin -) 0.25 mg PO DAILY [facility] Last Admin: 10/23/16 10:09 Dose: 0.25 mg Diphenhydramine HCl (Benadryl -) 25 mg PO HS [facility] Last Admin: 10/22/16 21:57 Dose: 25 mg Furosemide (Lasix -) 40 mg PO DAILY [facility] Last Admin: 10/23/16 10:09 Dose: 40 mg Lisinopril (Prinivil) 2.5 mg PO DAILY [facility] Last Admin: 10/23/16 10:08 Dose: 2.5 mg Metoprolol Tartrate (Lopressor -) 50 mg PO QID [facility] Last Admin: 10/23/16 10:07 Dose: 50 mg Nicotine (Nicoderm Patch -) 21 mg TD DAILY [facility] Last Admin: 10/23/16 10:07 Dose: 21 mg Pantoprazole Sodium (Protonix -) 40 mg PO HS [facility] Last Admin: 10/22/16 21:58 Dose: 40 mg Polyethylene Glycol (Miralax (For Daily Use) -) 17 gm PO BID [facility] Last Admin: 10/23/16 10:08 Dose: Not Given Potassium Chloride (Potassium Chloride Oral Liquid) 40 meq PO DAILY [facility] Last Admin: 10/23/16 10:04 Dose: 40 meq Sodium Chloride ([place] Nasal [place] -) 2 spray NS TID PRN PRN Reason: NASAL CONGESTION Last Admin: 10/15/16 12:27 Dose: 2 sprays Constitutional: Yes: NAD, Obese Eyes: Yes: WNL HENT: Yes: WNL Neck: Yes: WNL Cardiovascular: Yes: Pulse Irregular, S1, S2 Respiratory: Yes: Diminished, Rales (few bibasilar rales) Gastrointestinal: Yes: Normal Bowel Sounds, Soft Extremities: Yes: WNL Edema: Yes Labs: Laboratory Results - last 24 hr 10/22/16 10/22/16 10/23/16 07:00 07:00 06:30 WBC 10.0 RBC 4.55 Hgb 14.7 Hct 44.5 MCV 97.8 H MCHC 33.1 RDW 14.5 Plt Count 199 D MPV 10.1 Sodium Potassium Chloride Carbon Dioxide Anion Gap BUN Creatinine Random Glucose Calcium Phosphorus Magnesium Digoxin 0.6404 L Cancelled 10/23/16 06:30 WBC RBC Hgb Hct MCV MCHC RDW Plt Count MPV Sodium 141 Potassium 4.2 Chloride 103 Carbon Dioxide 28 Anion Gap 10 BUN 20 H Creatinine 0.7 Random Glucose 127 H Calcium 8.7 Phosphorus 2.6 Magnesium 1.6 L Digoxin 0.6416 L Problem List - Problems (1) Congestive heart failure (CHF) Code(s): I50.9 - HEART FAILURE, UNSPECIFIED Qualifiers: Congestive heart failure type: combined Congestive heart failure chronicity: acute Qualified Code(s): I50.41 - Acute combined systolic ( congestive) and diastolic (congestive) heart failure (2) Respiratory failure requiring intubation Code(s): J96.90 - RESPIRATORY FAILURE, UNSP, UNSP W HYPOXIA OR HYPERCAPNIA (3) Sleep apnea Code(s): G47.30 - SLEEP APNEA, UNSPECIFIED Qualifiers: Sleep apnea type: unspecified type Qualified Code(s): G47.30 - Sleep apnea, unspecified (4) Acute respiratory failure with hypoxia and hypercarbia Code(s): J96.01 - ACUTE RESPIRATORY FAILURE WITH HYPOXIA J96.02 - ACUTE RESPIRATORY FAILURE WITH HYPERCAPNIA (5) Acute on chronic diastolic (congestive) heart failure Code(s): I50.33 - ACUTE ON CHRONIC DIASTOLIC (CONGESTIVE) HEART FAILURE (6) Atrial fibrillation, new onset Code(s): I48.91 - UNSPECIFIED ATRIAL FIBRILLATION (7) Morbid obesity Code(s): E66.01 - MORBID (SEVERE) OBESITY DUE TO EXCESS CALORIES Assessment/Plan ASSESSMENT AND PLAN: Acute Hypoxic and Hypercapneic Respiratory Failure improving Acute on ?Chronic LV Systolic Heart Failure Pulmonary HTN Volume Overload Atrial Fibrillation with RVR Acute Kidney Injury Hyperthyroidism - Patient has been refusing pre and post ambulation saturation -> he told me he will do it today - rate control per cardiology - anticoagulation - inhaled bronchodilators - aspiration precautions - DVT/GI prophylaxis - D/C planning Dr Sanz Problem List - Problems (1) Atrial fibrillation, new onset Code(s): I48.91 - UNSPECIFIED ATRIAL FIBRILLATION (2) Congestive heart failure (CHF) Code(s): I50.9 - HEART FAILURE, UNSPECIFIED Qualifiers: Congestive heart failure type: combined Congestive heart failure chronicity: acute Qualified Code(s): I50.41 - Acute combined systolic ( congestive) and diastolic (congestive) heart failure (3) Edema of scrotum Code(s): N50.89 - OTHER SPECIFIED DISORDERS OF THE MALE GENITAL ORGANS (4) Lymphedema of both lower extremities Code(s): I89.0 - LYMPHEDEMA, NOT ELSEWHERE CLASSIFIED (5) Acute respiratory failure requiring reintubation Code(s): J96.00 - ACUTE RESPIRATORY FAILURE, UNSP W HYPOXIA OR HYPERCAPNIA (6) Sleep apnea Code(s): G47.30 - SLEEP APNEA, UNSPECIFIED Qualifiers: Sleep apnea type: unspecified type Qualified Code(s): G47.30 - Sleep apnea, unspecified (7) Renal insufficiency Code(s): N28.9 - DISORDER OF KIDNEY AND URETER, UNSPECIFIED (8) Morbid obesity Code(s): E66.01 - MORBID (SEVERE) OBESITY DUE TO EXCESS CALORIES
--- NOTE | 2016-10-23 12:01 | PN ---
Physical Exam: SUBJECTIVE: Patient seen and examined Patient sitting in chair, NAD. afebrile hemodynamically stable, HR 106 a fib at rest, sattign 92% on NC 3 L. Ambulated down hallway with PT w/o O2. States hes not SOB. tolerating diet. + BM. Denies chest pain, palpitations, abd pain. OBJECTIVE: Vital Signs Period Temp Pulse Resp BP Sys/Clements Pulse Ox Last 24 Hr 97.6 F-98.7 F 11-121 18-20 103-118/53-80 88-92 GENERAL: aaox3, nad HEAD: Normal with no signs of trauma, obese EYES: [place]err[place] EOMI EARS, NOSE, THROAT: moist mucous membranes. NECK: supple no JVD LUNGS: b/l ronchi at bases HEART: tachy, irregular ABDOMEN obese, soft, 1+ edema, + bowel sounds MUSCULOSKELETAL: No bony deformities UPPER EXTREMITIES: 2+ pulses, mild peripheral edema. LOWER EXTREMITIES: 1+ pulses, 1+ pitting edema, chronic stasis dermatitis b/l NEUROLOGICAL: cranial nerves grossly intact PSYCHIATRIC: calm SKIN: Warm, dry Laboratory Results - last 24 hr 10/22/16 10/22/16 10/23/16 07:00 07:00 06:30 WBC 10.0 RBC 4.55 Hgb 14.7 Hct 44.5 MCV 97.8 H MCHC 33.1 RDW 14.5 Plt Count 199 D MPV 10.1 Sodium Potassium Chloride Carbon Dioxide Anion Gap BUN Creatinine Random Glucose Calcium Phosphorus Magnesium Digoxin 0.6404 L Cancelled 10/23/16 06:30 WBC RBC Hgb Hct MCV MCHC RDW Plt Count MPV Sodium 141 Potassium 4.2 Chloride 103 Carbon Dioxide 28 Anion Gap 10 BUN 20 H Creatinine 0.7 Random Glucose 127 H Calcium 8.7 Phosphorus 2.6 Magnesium 1.6 L Digoxin 0.6416 L Active Medications Generic Name Dose Route Start Last Admin Trade Name Freq PRN Reason Stop Dose Admin Acetaminophen 650 mg 10/10/16 15:28 10/13/16 22:53 Tylenol - PO 650 mg Q6H PRN Administration FEVER OR PAIN Albuterol Sulfate 1 amp 10/20/16 11:11 Ventolin 0.083% Nebulizer Soln - NEB Q6H PRN SHORT OF BREATH/WHEEZING Amino Acids 30 ml 10/10/16 17:30 10/23/16 10:03 Prosource No Carb Liquid Pkt PO 30 ml BID@0800,1730 [facility] Administration Apixaban 5 mg 10/09/16 10:30 10/23/16 10:09 Eliquis - PO 5 mg BID [facility] Administration Digoxin 0.25 mg 10/21/16 10:45 10/23/16 10:09 Lanoxin - PO 0.25 mg DAILY [facility] Administration Diphenhydramine HCl 25 mg 10/21/16 03:15 10/22/16 21:57 Benadryl - PO 25 mg HS [facility] Administration Furosemide 40 mg 10/21/16 12:15 10/23/16 10:09 Lasix - PO 40 mg DAILY [facility] Administration Lisinopril 2.5 mg 10/21/16 10:00 10/23/16 10:08 Prinivil PO 2.5 mg DAILY [facility] Administration Metoprolol Tartrate 50 mg 10/22/16 14:00 10/23/16 10:07 Lopressor - PO 50 mg QID [facility] Administration Nicotine 21 mg 10/16/16 10:00 10/23/16 10:07 Nicoderm Patch - TD 21 mg DAILY [facility] Administration Pantoprazole Sodium 40 mg 10/16/16 22:00 10/22/16 21:58 Protonix - PO 40 mg HS [facility] Administration Polyethylene Glycol 17 gm 10/09/16 22:00 10/23/16 10:08 Miralax (For Daily Use) - PO Not Given BID [facility] Potassium Chloride 40 meq 10/08/16 10:00 10/23/16 10:04 Potassium Chloride Oral Liquid PO 40 meq DAILY [facility] Administration Sodium Chloride 2 spray 10/15/16 11:18 10/15/16 12:27 [place] Nasal [place] - NS 2 sprays TID PRN Administration NASAL CONGESTION ASSESSMENT/PLAN: This is a 60 yo M every day smoker with PMH of HTN, GERD, and obesity who presents due to testicular swelling x 1 W and worsening SOB. Acute decompensated CHF -NYHA class III-IV -was in severe fluid overload, anasarca -TTE mild/mod reduced EF, mild pulm HTN, RVP 30-40, global mild/mod LV hypokinesis worse than 05/06/16 -euvolemic -lopressor 50 increased to QID yesterday; will titrate up as BP permits (max dose 450/day) -Gigoxin PO 0.25 daily dig level 0.64 -lasix 40 d PO -Lisinopril 2.5 d -better rate control (low 100's), but suboptimal, ideally should be <100 -will need eventual cardioversion outpatient per cardio -daily weight (254lb) -tele monitoring a fib -PT Fever -resolved -ID consult: completed abx for presumed HAP COPD -nebs A fib -eliquis MONIE -creat at baseline Acute hypoxic respiratory failure -3L NC -BIPAP at night for probable sleep apnea -pre/post exercose O2 measurement FEN -no IVF -replete lytes -chopped diet PPX: PPI, noac Dispo: tele Problem List - Problems (1) Acute respiratory failure requiring reintubation Code(s): J96.00 - ACUTE RESPIRATORY FAILURE, UNSP W HYPOXIA OR HYPERCAPNIA (2) Atrial fibrillation, new onset Code(s): I48.91 - UNSPECIFIED ATRIAL FIBRILLATION (3) Congestive heart failure (CHF) Code(s): I50.9 - HEART FAILURE, UNSPECIFIED Qualifiers: Qualified Code(s): I50.41 - Acute combined systolic (congestive) and diastolic (congestive) heart failure (4) Edema of scrotum Code(s): N50.89 - OTHER SPECIFIED DISORDERS OF THE MALE GENITAL ORGANS (5) Lymphedema of both lower extremities Code(s): I89.0 - LYMPHEDEMA, NOT ELSEWHERE CLASSIFIED (6) Morbid obesity Code(s): E66.01 - MORBID (SEVERE) OBESITY DUE TO EXCESS CALORIES (7) Renal insufficiency Code(s): N28.9 - DISORDER OF KIDNEY AND URETER, UNSPECIFIED (8) Sleep apnea Code(s): G47.30 - SLEEP APNEA, UNSPECIFIED Qualifiers: Qualified Code(s): G47.30 - Sleep apnea, unspecified (9) Acute kidney injury Code(s): N17.9 - ACUTE KIDNEY FAILURE, UNSPECIFIED (10) Anasarca Code(s): R60.1 - GENERALIZED EDEMA Visit type - Emergency Visit Emergency Visit: Yes ED Registration Date: 10/05/16 Care time: The patient presented to the Emergency Department on the above date and was hospitalized for further evaluation of their emergent condition. - New Patient This patient is new to me today: No - Critical Care Critical Care patient: No - Discharge Referral Referred to [facility] Med [facility] No
--- NOTE | 2016-10-23 12:14 | PN ---
Teaching Attending Note Name of Resident: Hillary Reyes ATTENDING PHYSICIAN STATEMENT I saw and evaluated the patient. I reviewed the resident's note and discussed the case with the resident. I agree with the resident's findings and plan as documented. SUBJECTIVE: no fever or chills, no SOb , walked in hallway with no SOB OBJECTIVE: VS reviewed NAD Cv : irreg irreg . Lungs : bi-basilar crackles, minimal wheezing at R base Ext : 1+ pitting edema and dark pigmentation ASSESSMENT AND PLAN: 60 y/o man with ho GERD, HTN, previously mildly reduced EF who presented with scrotal swelling and was diagnosed with acute hypoxic resp failure due to acute CHF exacerbation 1- Acute hypoxic hypercapnic reap failure: 2/2 acute CHF exacerbation and possible PNA - cont po lasix - cont lisinopril and BB - Refused pre-post ambulatory pulse ox yesterday, will try again today 2-New onset A fib with RVR: rate is still not controlled - cont dig - cont lopressor 50 mg ( changed to QID yesterday ) , will wait to see if this helps - cont eliquis 3-fever due to PNA . resolved cont Abx day 6/ . ID help appreciated 4- MONIE : resolved walking in hallway with no assistance Dispo : plan fro dc home with VNA if rate is controlled
--- NOTE | 2016-10-23 12:23 | PN ---
Progress Note, Physician History of Present Illness: Remains in rapid afib, significant diuresis achieved. - Current Medication List Current Medications: Active Medications Acetaminophen (Tylenol -) 650 mg PO Q6H PRN PRN Reason: FEVER OR PAIN Last Admin: 10/13/16 22:53 Dose: 650 mg Albuterol Sulfate (Ventolin 0.083% Nebulizer Soln -) 1 amp NEB Q6H PRN PRN Reason: SHORT OF BREATH/WHEEZING Amino Acids (Prosource No Carb Liquid Pkt) 30 ml PO BID@0800,1730 [facility] Last Admin: 10/23/16 10:03 Dose: 30 ml Apixaban (Eliquis -) 5 mg PO BID [facility] Last Admin: 10/23/16 10:09 Dose: 5 mg Digoxin (Lanoxin -) 0.25 mg PO DAILY [facility] Last Admin: 10/23/16 10:09 Dose: 0.25 mg Diphenhydramine HCl (Benadryl -) 25 mg PO HS [facility] Last Admin: 10/22/16 21:57 Dose: 25 mg Furosemide (Lasix -) 40 mg PO DAILY [facility] Last Admin: 10/23/16 10:09 Dose: 40 mg Lisinopril (Prinivil) 2.5 mg PO DAILY [facility] Last Admin: 10/23/16 10:08 Dose: 2.5 mg Metoprolol Tartrate (Lopressor -) 50 mg PO QID [facility] Last Admin: 10/23/16 10:07 Dose: 50 mg Nicotine (Nicoderm Patch -) 21 mg TD DAILY [facility] Last Admin: 10/23/16 10:07 Dose: 21 mg Pantoprazole Sodium (Protonix -) 40 mg PO HS [facility] Last Admin: 10/22/16 21:58 Dose: 40 mg Polyethylene Glycol (Miralax (For Daily Use) -) 17 gm PO BID [facility] Last Admin: 10/23/16 10:08 Dose: Not Given Potassium Chloride (Potassium Chloride Oral Liquid) 40 meq PO DAILY [facility] Last Admin: 10/23/16 10:04 Dose: 40 meq Sodium Chloride ([place] Nasal [place] -) 2 spray NS TID PRN PRN Reason: NASAL CONGESTION Last Admin: 10/15/16 12:27 Dose: 2 sprays - Objective Vital Signs: Vital Signs Temperature 97.6 F 10/23/16 09:00 Pulse Rate 11 L 10/23/16 10:09 Respiratory Rate 19 10/23/16 09:00 Blood Pressure 107/64 10/23/16 09:00 O2 Sat by Pulse Oximetry (%) 92 L 10/22/16 21:00 Constitutional: Yes: No Distress, Calm Neck: Yes: Supple Cardiovascular: Yes: Tachycardia, Pulse Irregular Respiratory: Yes: Regular, Diminished, On Nasal O2 Gastrointestinal: Yes: Normal Bowel Sounds, Soft, Abdomen, Obese Edema: Yes Edema: LLE: 1+, RLE: 1+ Labs: CBC, BMP 10/23/16 06:30 10/23/16 06:30 INR, PTT INR 1.32 (0.82-1.09) H 10/13/16 05:35 - ....Imaging EKG: Report Reviewed (Tele: Rapid [employer]) Problem List - Problems (1) Atrial fibrillation, new onset Code(s): I48.91 - UNSPECIFIED ATRIAL FIBRILLATION (2) Sleep apnea Code(s): G47.30 - SLEEP APNEA, UNSPECIFIED Qualifiers: Sleep apnea type: unspecified type Qualified Code(s): G47.30 - Sleep apnea, unspecified (3) Acute on chronic diastolic (congestive) heart failure Code(s): I50.33 - ACUTE ON CHRONIC DIASTOLIC (CONGESTIVE) HEART FAILURE (4) Acute hypercapnic respiratory failure Code(s): J96.02 - ACUTE RESPIRATORY FAILURE WITH HYPERCAPNIA Assessment/Plan Echocardiography revealed mild to moderate LV systolic dysfunction, moderate TR , RVSP of 30-40 mmH 1. Acute Hypoxic and Hypercapneic Respiratory Failure improving 2. Acute on chronic LV diastolic/systolic Heart Failure 3. CAD angina pectoris to be excluded 4. Persistent atrial fibrillation with periods of rapid ventricular response, [id number] score of 2 5. HTN 6. Hypercholesterolemia 7. Polycythmia, resolved 8. Thrombocytopenia, resolved PLAN: 1. Continue Lasix 40 qd with monitor renal recovery and electrolytes 2. Continue Lopressor 50 QID, add Cardizem 30 qid hemodynamics permitting 3. Continue Lisinopril 2.5 qd , hemodynamics permitting with close monitoring of renal function 4. D/c digoxin 5. Continue NOAC's with Eliquis 5 bid 6. Complete antibiotics course per the ID service 7. PT and ambulate, BD, 8. Further evaluation as outpatient for CAD including MPI study
[2016-10-23] MEDS: dilTIAZem HCL 30 MG TABLET (FP) PO SCH ×2 (14:21→17:49)
[2016-10-23 14:50] VITALS: BP 105/67; TEMP 97.5
[2016-10-23 14:56] VITALS: PULSE 99
--- NOTE | 2016-10-23 17:39 | DS ---
Physical Exam: SUBJECTIVE: Patient seen and examined Patient sitting in chair, NAD. afebrile hemodynamically stable, HR 105 a fib at rest, sattign 92% on NC 3 L. Ambulated down hallway with PT w/o O2. States hes not SOB. tolerating diet. + BM. Denies chest pain, palpitations, abd pain. exercise O2 w/o NC 87% OBJECTIVE: Vital Signs Period Temp Pulse Resp BP Sys/Clements Pulse Ox Last 24 Hr 97.5 F-98.7 F 11-112 18-20 103-114/53-80 91-92 PHYSICAL EXAM GENERAL: aaox3, nad HEAD: Normal with no signs of trauma, obese EYES: Perrla EOMI EARS, NOSE, THROAT: moist mucous membranes. NECK: supple no JVD LUNGS: b/l ronchi at bases HEART: tachy, irregular ABDOMEN obese, soft, 1+ edema, + bowel sounds MUSCULOSKELETAL: No bony deformities UPPER EXTREMITIES: 2+ pulses, mild peripheral edema. LOWER EXTREMITIES: 1+ pulses, 1+ pitting edema, chronic stasis dermatitis b/l NEUROLOGICAL: cranial nerves grossly intact PSYCHIATRIC: calm SKIN: Warm, dry LABS Laboratory Results - last 24 hr 10/23/16 10/23/16 06:30 06:30 WBC 10.0 RBC 4.55 Hgb 14.7 Hct 44.5 MCV 97.8 H MCHC 33.1 RDW 14.5 Plt Count 199 D MPV 10.1 Sodium 141 Potassium 4.2 Chloride 103 Carbon Dioxide 28 Anion Gap 10 BUN 20 H Creatinine 0.7 Random Glucose 127 H Calcium 8.7 Phosphorus 2.6 Magnesium 1.6 L Digoxin 0.6416 L HOSPITAL COURSE: Date of Admission:10/05/16 This is a 60 yo M every day smoker with PMH of HTN, GERD, and obesity who presents due to testicular swelling x 1 W and worsening SOB. His baseline exercise intolerance became worse over the past week and a half, him being unable to walk a few steps w/o needing to stop. He visited his Urologist on , had scrotal US done and was put on bactrim, whihc did not alleviate his symptoms. He also complains of increased LE and abd edema. He denies any recent illness, fever, chills, nausea, vomiting, diarrhea, cough, chest pain. He denies any history of heart problems. In ed he is tachycardic a fib 150s, diffusely edematous, cxr showing severe pulm congestion and cardiomegaly. Patient received 40 lasix iv and 2 percocet in ed as well as several doses cardizem. I found him unresponsive to sternal rub and blue in ED. He was [facility] half an hour prior. He had a pulse, a fib rate 150's, agonal breathing, pulse ox 74%. He was intubated and placed in ICU. PAteint was diagnosed with acute decompensated CHF NYHA class III-IV due to new rapid a fib. He was found to be severely volume overloaded, over 50 lb above baseline weight and in acute hypoxic respiratory distress. after 2 weeks in ICU he was extubated. He lost over 50 lb in fluid weight. his peter resolved. his a fib with rvr was difficult to rate contol but was roberth down to low 100's with metoprolol 50 qid, cardizem 30 qid. HE was placed on lasix 40 daily, lisinopril 2.5 daily and eliquis 5 daily. His pulse ox on RA was 87%. He left AMA despite being told that he needs to be further stabilized. He wi;; require eventual ablation of afib. Patient was also treated for presumed HAP but finished abx course. Date of Discharge: 10/23/16 Minutes to complete discharge: 60 (na) Discharge Summary Reason For Visit: AFIB, CHF,LYMPHEDOMA LOWER EXTREMITY Current Active Problems Abrasion hip/leg (Acute) Acute hypercapnic respiratory failure (Acute) Acute kidney injury (Acute) Acute on chronic diastolic (congestive) heart failure (Acute) Acute respiratory failure requiring reintubation (Acute) Acute respiratory failure with hypoxia and hypercarbia (Acute) Anasarca (Acute) Atrial fibrillation, new onset (Acute) Cellulitis (Acute) Congestive heart failure (CHF) (Acute) Edema of scrotum (Acute) Lymphedema of both lower extremities (Acute) Morbid obesity (Acute) Renal insufficiency (Acute) Respiratory failure requiring intubation (Acute) Sleep apnea (Acute) Condition: Guarded - Instructions Diet, Activity, Other Instructions: you were here for heart failure that was caused by new atrial fibrillation ( arrythmia). Your heart rate is not yet optimally controlled. Please take only cardizem 30 4 time a day, metoprolol 50 4 times a day, lasix 40 daily, lisinopril 2.5 daily and eliquis 5 daily. stop your other blood pressure/heart meds. Please see software integration developer Dr Brooke tomorrow in his office. We do not advise your to leave right now but urge to return to hospital if symptoms worsen Referrals: Dameon Quinonez MD [Primary Care Provider] - 1 Week Shahab Brooke MD [Staff Physician] - 10/24/16 Disposition: AGAINST MEDICAL ADVICE - Home Medications Comprehensive Discharge Medication List: Ambulatory Orders Pantoprazole Sodium [Protonix -] 1 tab PO DAILY 05/19/16 Ascorbate Calcium [Vitamin C] 1,000 mg PO DAILY 10/05/16 [place]-3/Dha/Epa/Fish Oil [[place] 3 500 Softgel] 350 mg PO DAILY 10/05/16 Albuterol 0.083% Nebulizer Claribel [Ventolin 0.083% Nebulizer Soln -] 1 amp NEB Q6H PRN #3 amp 10/23/16 Albuterol 2.5/Ipratropium 0.5 [Duoneb -] 1 amp NEB QIDR #3 amp 10/23/16 Apixaban [Eliquis -] 5 mg PO BID #30 tablet 10/23/16 Diltiazem [Cardizem -] 30 mg PO QID #120 tablet 10/23/16 Furosemide [Lasix -] 40 mg PO DAILY #30 tablet 10/23/16 Lisinopril [Prinivil] 2.5 mg PO DAILY #30 tablet 10/23/16 Metoprolol Tartrate [Lopressor -] 50 mg PO QID #120 tablet 10/23/16 Problem List - Problems (1) Acute respiratory failure requiring reintubation Code(s): J96.00 - ACUTE RESPIRATORY FAILURE, UNSP W HYPOXIA OR HYPERCAPNIA (2) Atrial fibrillation, new onset Code(s): I48.91 - UNSPECIFIED ATRIAL FIBRILLATION (3) Congestive heart failure (CHF) Code(s): I50.9 - HEART FAILURE, UNSPECIFIED Qualifiers: Congestive heart failure type: combined Congestive heart failure chronicity: acute Qualified Code(s): I50.41 - Acute combined systolic ( congestive) and diastolic (congestive) heart failure (4) Edema of scrotum Code(s): N50.89 - OTHER SPECIFIED DISORDERS OF THE MALE GENITAL ORGANS (5) Lymphedema of both lower extremities Code(s): I89.0 - LYMPHEDEMA, NOT ELSEWHERE CLASSIFIED (6) Morbid obesity Code(s): E66.01 - MORBID (SEVERE) OBESITY DUE TO EXCESS CALORIES (7) Renal insufficiency Code(s): N28.9 - DISORDER OF KIDNEY AND URETER, UNSPECIFIED (8) Sleep apnea Code(s): G47.30 - SLEEP APNEA, UNSPECIFIED Qualifiers: Sleep apnea type: unspecified type Qualified Code(s): G47.30 - Sleep apnea, unspecified (9) Acute kidney injury Code(s): N17.9 - ACUTE KIDNEY FAILURE, UNSPECIFIED (10) Anasarca Code(s): R60.1 - GENERALIZED EDEMA This patient is new to me today: No Emergency Visit: Yes ED Registration Date: 10/05/16 Care time: The patient presented to the Emergency Department on the above date and was hospitalized for further evaluation of their emergent condition. Critical Care patient: No - Discharge Referral Referred to [facility] No
== END 2016-10-23 17:45 | disposition left against medical advice (07) | DRG 207 ==
LOC: JER 10:27 → JERBED 14:27 → JICU 18:06 → J4S 10-20 18:05
PROVIDERS: ADMIT Internal Medicine; ATTEND Internal Medicine
PROC: 0BH17EZ Insertion of Endotracheal Airway into Trachea, Via Natural or Artificial Opening (ICD-10-PCS; principal; 2016-10-05)
PROC: 5A1955Z Respiratory Ventilation, Greater than 96 Consecutive Hours (ICD-10-PCS; 2016-10-05)
PROC: 05HM33Z Insertion of Infusion Device into Right Internal Jugular Vein, Percutaneous Approach (ICD-10-PCS; 2016-10-09)
PROC: 05HN33Z Insertion of Infusion Device into Left Internal Jugular Vein, Percutaneous Approach (ICD-10-PCS; 2016-10-09)
DX: J96.01 Acute respiratory failure with hypoxia (principal); R57.0 Cardiogenic shock; J18.9 Pneumonia, unspecified organism; I50.41 Acute combined systolic (congestive) and diastolic (congestive) heart failure; L03.115 Cellulitis of right lower limb; N17.9 Acute kidney failure, unspecified; I48.1 Persistent atrial fibrillation; E87.4 Mixed disorder of acid-base balance; E87.0 Hyperosmolality and hypernatremia; I42.8 Other cardiomyopathies; I11.0 Hypertensive heart disease with heart failure; J96.02 Acute respiratory failure with hypercapnia; K21.9 Gastro-esophageal reflux disease without esophagitis; F17.210 Nicotine dependence, cigarettes, uncomplicated; L72.0 Epidermal cyst; N50.1 Vascular disorders of male genital organs; R73.03 Prediabetes; E66.01 Morbid (severe) obesity due to excess calories; Z68.38 Body mass index [BMI] 38.0-38.9, adult; Z71.3 Dietary counseling and surveillance; G47.30 Sleep apnea, unspecified; I48.91 Unspecified atrial fibrillation; S80.811A Abrasion, right lower leg, initial encounter; E05.80 Other thyrotoxicosis without thyrotoxic crisis or storm; R60.1 Generalized edema; E87.6 Hypokalemia; D69.6 Thrombocytopenia, unspecified; D75.1 Secondary polycythemia; E78.00 Pure hypercholesterolemia, unspecified; I89.0 Lymphedema, not elsewhere classified; E83.42 Hypomagnesemia; I25.10 Atherosclerotic heart disease of native coronary artery without angina pectoris; I27.2 Other secondary pulmonary hypertension; X58.XXXA Exposure to other specified factors, initial encounter; Y92.89 Other specified places as the place of occurrence of the external cause; Y93.89 Activity, other specified; Y99.8 Other external cause status
CPT/HCPCS: 36415; 36600; 71010-TC; 71250-TC; 76775-TC; 76856-TC; 80048; 80053; 80061; 80162; 81003; 81015; 82550; 82553; 82803; 83605; 83721; 83735; 83880; 84100; 84132; 84439; 84443; 84445; 84481; 84482; 84484; 85025; 85027; 85610; 85651; 85730; 86140; 86376; 86593; 87040; 87070; 87086; 87205; 87254; 87389; 87804; 90670; 93005; 93010; 93306-TC; 93970-TC; 94002; 94640; 94660; 94761; 97116-GP; 97161-GP; 99285-25; G0480; J1250; J1644

== ENCOUNTER 2016-12-03 11:18 | Day surgery (SDC) | payer BC, OTHER ==
[2016-12-03 11:49] LABS: MCH 32.5 pg (25.7-33.7); MCHC 33.3 g/dl (32.0-35.9); MEAN CELL VOLUME 97.7 fl (80-96); MEAN PLT VOLUME 8.7 fl (7.5-11.1); PLATELET COUNT 198 K/MM3 (134-434); RDW 14.7 % (11.9-15.9); WHITE BLOOD COUNT 10.4 K/mm3 (4.0-10.0)
[2016-12-03 12:14] LABS: CREATININE 1.1 mg/dL (0.7-1.3)
[2016-12-03 12:21] VITALS: BMI 36.9
[2016-12-03 12:31] LABS: INR 1.56 (0.82-1.09); PROTHROMBIN TIME (PATIENT) 17.3 SEC (9.98-11.88)
[2016-12-03 12:34] LABS: ACTIVATED PTT 34.7 SECONDS (26.9-34.4)
--- NOTE | 2016-12-03 12:55 | PN ---
Progress Note (short form) - Note Progress Note: Cardioversion Note 61 yo male h/o systolic dysfunction, persistent afib compliant on Eliquis, chol , HTN, presents for elective cardioversion. All: NKDA Meds: Eliquis 5 bid, Cardizem CD 120 qd, Lasix 40 qd, lisinopril 5 qd, Lopressor 100 bid, Protonix PE-NAD VS: HR 117->63 BP 96/61 Lungs: Clear Heart: Irreg, irreg Abd: soft, BS+, NT/NS Ext: No edema Tele: Afib @ 117->NSR 60s Echocardiography revealed mild to moderate LV systolic dysfunction, moderate TR , RVSP of 30-40 mmH After providing informed consent, patient underwent successful cardioversion with 150J synchronized discharge after induction of anesthesia, tolerated procedure without sequelae Post-DCCV EKG confirms Sinus rhythm @ 63 LAE nonspec T w changes A: 1. Chronic LV diastolic/systolic Heart Failure 2. Paroxysmal atrial fibrillation with periods of rapid ventricular response, [id number] score of 2 now in SR post DCCV 3. HTN 4. Hypercholesterolemia 5. OSAS noncompliant with cpap PLAN: 1. Decrease Lasix 20 qd, decrease Lopressor 50 BID, continue Lisinopril 5 qd, d/ c Cardizem CD 120 qd 2. Continue NOAC's with Eliquis 5 bid, emphasized importance of cpap compliance 3. F/u with me in office next week Problem List - Problems (1) Atrial fibrillation, new onset Code(s): I48.91 - UNSPECIFIED ATRIAL FIBRILLATION (2) Atrial fibrillation status post cardioversion Code(s): I48.91 - UNSPECIFIED ATRIAL FIBRILLATION (3) Systolic and diastolic CHF, chronic Code(s): I50.42 - CHRONIC COMBINED SYSTOLIC AND DIASTOLIC HRT FAIL (4) Sleep apnea Code(s): G47.30 - SLEEP APNEA, UNSPECIFIED Qualifiers: Sleep apnea type: obstructive Qualified Code(s): G47.33 - Obstructive sleep apnea (adult) (pediatric)
[2016-12-03 13:01] VITALS: TEMP 98.1
[2016-12-03 14:07] VITALS: BP 106/69; PULSE 63
--- NOTE | 2016-12-04 16:31 | EKG ---
Test Reason : Blood Pressure : / mmHG Vent. Rate : 063 BPM Atrial Rate : 063 BPM P-R Int : 180 ms QRS Dur : 086 ms QT Int : 444 ms P-R-T Axes : 042 030 004 degrees QTc Int : 454 ms NORMAL SINUS RHYTHM POSSIBLE LEFT ATRIAL ENLARGEMENT T WAVE ABNORMALITY, CONSIDER ANTERIOR ISCHEMIA ABNORMAL ECG WHEN COMPARED WITH ECG OF 05-OCT-2016 10:49, SINUS RHYTHM HAS REPLACED ATRIAL FIBRILLATION VENT. RATE HAS DECREASED BY 77 BPM INVERTED T WAVES HAVE REPLACED NONSPECIFIC T WAVE ABNORMALITY IN ANTERIOR LEADS NONSPECIFIC T WAVE ABNORMALITY, IMPROVED IN LATERAL LEADS Confirmed by MARLON ANDERSON MD ([id number]) on 12/04/2016 4:30:49 PM Referred By: Campos SOLORZANO Confirmed By:MARLON ANDERSON MD
== END 2016-12-03 14:08 | disposition home or self-care (01) ==
LOC: JOR 11:18 → JASU-ENDO 11:18
PROVIDERS: ATTEND Internal Medicine Cardiovascular Disease
PROC: 5A2204Z Restoration of Cardiac Rhythm, Single (ICD-10-PCS; principal; 2016-12-03 12:00)
DX: I48.1 Persistent atrial fibrillation (principal); G47.33 Obstructive sleep apnea (adult) (pediatric); I50.32 Chronic diastolic (congestive) heart failure; I50.22 Chronic systolic (congestive) heart failure
CPT/HCPCS: 36415; 80048; 85027; 85610; 85730; 92960; 93005; 93010

== ENCOUNTER 2017-11-25 09:41 | Day surgery (SDC) | payer BC, OTHER ==
[2017-11-17 14:37] VITALS: BMI 43.8
[2017-11-25] MEDS ORDERED: PROPOFOL 20 ML ONE ×2 (09:52)
[2017-11-25 11:53] VITALS: TEMP 98.4
[2017-11-25 12:23] VITALS: BP 156/68; PULSE 80
--- NOTE | 2017-11-27 16:38 | PATH ---
Surgical Pathology Report Patient Name: WHITNEY MILLER [facility]. Rec. #: [id number] /Age/Gender: 1955 (Age: 62) / M Account: [id number] Location: [facility] Taken: 11/25/2017 Received: 11/25/2017 Reported: 11/27/2017 Physicians: Rocio Quintero M.D. Specimen(s) Received A: BIOPSY LIPOMA CECUM X2 B: BIOPSY ASCENDING COLON Clinical History Colon polyps Lipoma, hemorrhoids Final Diagnosis A. CECUM, "LIPOMA " X2, BIOPSY: COLONIC MUCOSA SHOWING BENIGN/REACTIVE LYMPHOID AGGREGATE. B. ASCENDING COLON, BIOPSY: COLONIC MUCOSA SHOWING BENIGN/REACTIVE LYMPHOID AGGREGATE. Electronically Signed Mona Mccann M.D. Gross Description A. Received in formalin, labeled "biopsy lipoma cecum" are 2 mckee, irregular portions of soft tissue averaging 0.3 cm. in greatest dimension. The specimens are submitted in toto in one cassette. B. Received in formalin, labeled "biopsy ascending colon" is a mckee, irregular portion of soft tissue measuring 0.3 cm. in greatest dimension. The specimen is submitted in toto in one cassette. /11/26/2017 saudi11/26/2017
== END 2017-11-25 12:25 | disposition home or self-care (01) ==
LOC: FASU 09:41
PROVIDERS: ATTEND Internal Medicine Gastroenterology
PROC: 0DBH8ZX Excision of Cecum, Via Natural or Artificial Opening Endoscopic, Diagnostic (ICD-10-PCS; 2017-11-25)
PROC: 0DBK8ZX Excision of Ascending Colon, Via Natural or Artificial Opening Endoscopic, Diagnostic (ICD-10-PCS; principal; 2017-11-25 11:19)
DX: Z86.010 Personal history of colon polyps (principal); D17.79 Benign lipomatous neoplasm of other sites; K64.1 Second degree hemorrhoids

== ENCOUNTER 2018-11-05 19:51 | Inpatient (IN) | payer OTHER, BC | END 2018-11-12 15:29 | LOC: JERBED 23:57 → J4W 11-11 16:39 → JER 19:51 → J6S 11-06 04:05 → JICU 11-06 14:01 ==

== ENCOUNTER 2019-12-16 17:31 | Inpatient (IN) | payer OTHER, BC ==
--- NOTE | 2019-12-16 17:51 | PDOC ---
Rapid Medical Evaluation Time Seen by Provider: 12/16/19 17:44 Medical Evaluation: Allergies Allergy/AdvReac Type Severity Reaction Status Date / Time No Known Allergies Allergy Verified 11/06/18 18:58 12/16/19 17:49 CC: testicular swelling over the past few days , associated with SOB, hx chf, copd, denies CP Exam: Hypoxic, unable to speak full sentences Plan: labs, o2 ekg, cxr Discharge Disposition - Diagnosis Edema of scrotum, Congestive heart failure (CHF), Anasarca, Cellulitis, Morbid obesity, Pneumonia - Discharge Dispostion Condition at time of disposition: Guarded - Referrals Referrals: Dameon Quinonez MD [Primary Care Provider] - - Patient Instructions - Post Discharge Activity
--- NOTE | 2019-12-16 18:38 | PDOC ---
History of Present Illness - General Chief Complaint: Shortness of Breath Stated Complaint: PAIN Time Seen by Provider: 12/16/19 17:44 History Source: Patient Exam Limitations: No Limitations - History of Present Illness Initial Comments: 12/17/19 00:04 64M PMH HTN, HLD, pAF on eliquis presenting with 2 weeks of gradually worsening body swelling and SOB. +HEART. Denies f/c, cough, sore throat, runny nose, sick contacts. Denies cp. Denies n/v/d, dysuria. Has scrotal swelling but no scrotal or penile pain. prescribed lasix yesterday. Lives alone. NKDA. PCP Devi. Cardiology [facility]. Past History - Past Medical History Allergies/Adverse Reactions: Allergies Allergy/AdvReac Type Severity Reaction Status Date / Time No Known Allergies Allergy Verified 11/06/18 18:58 Home Medications: Ambulatory Orders Ascorbate Calcium [Vitamin C] 1,000 mg PO DAILY 10/05/16 [place]-3/Dha/Epa/Fish Oil [[place] 3 500 Softgel] 350 mg PO DAILY 10/05/16 Apixaban [Eliquis -] 5 mg PO BID #30 tablet 10/23/16 Multivit-Min/Folic/Vit K/Lycop [Men's Multivitamin Caplet] 1 each PO DAILY 11/17/17 Lisinopril [Prinivil] 2.5 mg PO DAILY #30 tablet 11/12/18 Metoprolol Tartrate [Lopressor -] 50 mg PO BID tablet 11/12/18 Pantoprazole Sodium [Protonix -] 40 mg PO DAILY #30 tablet.ec 11/12/18 Fluticasone/Vilanterol [Breo Ellipta 100-25 Mcg INH] 1 inhaler IH DAILY 02/08/19 Hydrochlorothiazide 1 cap PO DAILY 02/08/19 Anemia: No Asthma: No Cancer: No Cardiac Disorders: Yes (ATRIAL FIBRILLATION,CHRONIC DIASTOLIC/SYSTOLIC FAILURE W/ SUBWNDOMYOCARDIAL) CVA: No COPD: Yes CHF: No Dementia: No Diabetes: No GI Disorders: Yes (GERD) Disorders: No HTN: Yes Hypercholesterolemia: No Liver Disease: No Seizures: No Thyroid Disease: No - Surgical History Abdominal Surgery: No Appendectomy: No Cardiac Surgery: No Cholecystectomy: No Lung Surgery: No Neurologic Surgery: No Orthopedic Surgery: No - Immunization History Immunization Up to Date: No - Psycho Social/Smoking Cessation Hx Smoking History: Current every day smoker Have you smoked in the past 12 months: Yes Number of Cigarettes Smoked Daily: 20 If you are a former smoker, when did you quit?: 2 months ago Information on smoking cessation initiated: No 'Breaking Loose' booklet given: 11/17/17 Hx Alcohol Use: Yes Drug/Substance Use Hx: Yes Substance Use Type: None Hx Substance Use Treatment: No Review of Systems - Review of Systems Comments:: 12/17/19 00:04 CONSTITUTIONAL: Endorses generalized swelling. Denies F / C HEENT: Denies sore throat, rhinorrhea RESP: endorses sob, mild cough CARD: Denies chest pain GI: Denies N / V / D, abdominal pain, bloody stool, inability to tolerate PO : Denies dysuria, hematuria, frequency NEURO: Denies numbness, tingling, weakness MSK: Denies back pain SKIN: Denies rashes *Physical Exam - Vital Signs Last Vital Signs Temp Pulse Resp BP Pulse Ox 98.4 F 91 H 26 H 162/73 76 L 12/16/19 17:48 12/16/19 17:48 12/16/19 17:48 12/16/19 17:48 12/16/19 17:48 - Physical Exam 12/17/19 00:04 GEN: disheveled, NAD. AAOx3. HEENT: NC/AT. No facial asymmetry. Normal voice. Supple neck w/ FROM. CV: S1/S2, RRR, no m/r/g LUNG: SaO2 85% on 4L NC. SaO2 95% on 15L NRB. Nonlabored breathing, no respiratory distress. bibasilar crackles. scattered occasional wheezes. GI: Soft, ndnt, +BS, no guarding, no rebound. No masses. : scrotal swelling. no discharge from the glans. MSK: 4+ pitting LE edema b/l. No obvious deformities of all extremities. SKIN: erythema of the LEs b/l. PSYCH: odd NEURO: Moving all extremities well. ambulates ED Treatment Course - LABORATORY CBC & Chemistry Diagram: 12/16/19 18:40 12/16/19 18:40 Medical Decision Making - Medical Decision Making 12/16/19 18:55 64M BIBEMS for lower body swelling and sob x 2 weeks. Requires supplemental O2 to maintain saturation. crackles and wheezes on exam. pitting edema of the LEs and scrotal edema. DDx includes CHF exacerbation, ACS, PNA, COPD exacerbation, infection - CBC, CMP, Cardiac, BNP - BCX - CXR, EKG - Lasix 12/16/19 19:35 EKG 1816 appears grossly unchanged compared to prior 11/08/18 EXCEPT TWI V2; NSR, right axis CXR image and report reviewed - Vanc empirically for cellulitis - CTX+Azithro empirically for PNA 12/16/19 20:02 Scrotal US report - b/l hydrocele labs reviewed 12/16/19 20:28 Dr. Jackie Brooke - aware endorsed to hospitalists; admitted to telemetry Discharge - Discharge Information Problems reviewed: Yes Clinical Impression/Diagnosis: Edema of scrotum, Congestive heart failure (CHF), Anasarca, Cellulitis, Morbid obesity, Pneumonia Condition: Guarded - Admission Yes - Follow up/Referral - Patient Discharge Instructions - Post Discharge Activity
[2019-12-16] MEDS ORDERED: FUROSEMIDE 40 MG/4 ML INJECTABLE VIAL IVPUSH ONE (18:42)
[2019-12-16 19:25] LABS: BASO % 1.1 % (0-2.0); EOS % 2.4 % (0-4.5); HEMATOCRIT 58.9 % (35.4-49); HEMOGLOBIN 17.1 GM/dL (11.7-16.9); MCH 23.3 pg (25.7-33.7); MCHC 29.1 g/dl (32.0-35.9); MEAN CELL VOLUME 80.1 fl (80-96); MONO % 15.8 % (3.8-10.2); NEUT % 69.7 % (42.8-82.8); RDW 24.4 % (11.9-15.9); WHITE BLOOD COUNT 6.8 K/mm3 (4.0-10.0)
[2019-12-16] MEDS ORDERED: CEFTRIAXONE 1 GM in DEXTROSE 5%-WATER - 100 ML IVPB ONE (19:31)
[2019-12-16] MEDS ORDERED: AZITHROMYCIN IVPB 500 MG in DEXTROSE 5%-WATER - 250 ML IVPB ONE (19:31)
[2019-12-16 19:33] LABS: RBC 7.36 M/mm3 (4.00-5.60)
--- NOTE | 2019-12-16 19:33 | PDOC ---
Documentation entered by Leno Negron SCRIBE, acting as scribe for Kateryna Mejia DO. Kateryna Mejia DO: This documentation has been prepared by the Migdalia dominguez Xhesika, SCRIBE, under my direction and personally reviewed by me in its entirety. I confirm that the documentation accurately reflects all work, treatment, procedures, and medical decision making performed by me. Attending Attestation - Resident Resident Name: Rocco Francis - ED Attending Attestation I have performed the following: I have examined & evaluated the patient, The case was reviewed & discussed with the resident, I agree w/resident's findings & plan, Exceptions are as noted - HPI HPI: 12/16/19 18:24 The patient is a 64y/o M with a PMH of HTN, HLD, JUANA (not using CPAP), COPD, GERD, systolic HF, paroxysmal Afib (on Eliquis, s/p cardioversion 11/2016) who presents to the ED with 3 weeks of gradual onset anasarca. Pt reports mild shortness of breath worse on exertion. The patient denies chest pain, headache and dizziness. Denies fever, chills, cough, nausea, vomiting, diarrhea and constipation. Denies dysuria, frequency, urgency and hematuria. Allergies: NKDA - Physicial Exam PE: 12/16/19 18:25 GENERAL: Awake, alert, and fully oriented. +disheveled HEAD: No signs of trauma EYES: PERRLA, EOMI, sclera anicteric, conjunctiva clear ENT: Auricles normal inspection, hearing grossly normal, nares patent, oropharynx clear without exudates. NECK: Normal ROM, supple, no lymphadenopathy, JVD, or masses LUNGS: +rails bilaterally. + wheezing. No crackles HEART: Regular rate and rhythm, normal S1 and S2, no murmurs, rubs or gallops ABDOMEN: Soft, nontender, normoactive bowel sounds. No guarding, no rebound. No masses EXTREMITIES: (+) 4+ pitting edema bilaterally with serious redness and drainage from legs. Normal range of motion. No clubbing or cyanosis. No cords. NEUROLOGICAL: Cranial nerves II through XII grossly intact. SKIN: Warm, Dry, normal turgor. - Critical Care Time Total Critical Care Time: 35 Critical Care Statement: The care of this patient involved high complexity decision making to prevent further life threatening deterioration of the patient's condition and/or to evaluate & treat vital organ system(s) failure or risk of failure. - Medical Decision Making 12/16/19 19:29 a/p: 64yo male with sob/edema/swelling diffusely -pt states he saw dr. mcqueen yesterday, given lasix, has not followed [facility] Dr. Acevedo recently -has taken lasix but still sob and edematous -concerned because his scrotum was swollen -pt with pitting edema to LE and abd wall -rales/crackles b/l bases -concern for chf exacerbation -labx, xray, ekg ordered -will need admission 12/16/19 19:32 cxr shows pleural effusions, volume overload, chf, pna will order blood cultures, abx lasix ordered pt in ultrasound pt will need admission 12/16/19 19:34 also with b/l LE edema/swelling/redness concerning for cellulitis 12/16/19 19:57 pt with chf and pna mildly elevated trop, most likely from CHF microblog sent to [facility] for admission 12/16/19 19:58 scrotal ultrasound with b/l hydroceles, epidydimal cyst 12/16/19 20:[address] Brooke, agrees with lasix, will see patient in consult trend trop 12/16/19 20:55 resident discussed the case with [facility] who accepts pt to service Heart Score/ECG Review - ECG Intrepretation Comment:: 12/16/19 19:31 sinus at 92, nl axis, R axis, t wave inversions III, q waves anteroseptally which are age indeterminate, no acute st changes Discharge - Discharge Information Problems reviewed: Yes Clinical Impression/Diagnosis: Edema of scrotum, Congestive heart failure (CHF), Anasarca, Cellulitis, Morbid obesity, Pneumonia Condition: Guarded - Admission Yes - Follow up/Referral - Patient Discharge Instructions - Post Discharge Activity
[2019-12-16] MEDS ORDERED: VANCOMYCIN 1 GM in D5W (PRE-DOCKED) 1,000 MG/250 ML IVPB ONE (19:34)
[2019-12-16 19:36] LABS: INR 1.34 (0.83-1.09); PROTHROMBIN TIME (PATIENT) 15.9 SEC (9.7-13.0)
[2019-12-16 19:51] LABS: ALBUMIN 2.9 g/dl (3.4-5.0); BILIRUBIN,TOTAL 0.8 mg/dL (0.2-1); BLOOD UREA NITROGEN 21.3 mg/dL (7-18); CALCIUM 8.1 mg/dL (8.5-10.1); CREATININE 1.2 mg/dL (0.55-1.3); MAGNESIUM 1.7 mg/dL (1.8-2.4); POTASSIUM 4.5 mmol/L (3.5-5.1); TOT PROT 6.4 g/dl (6.4-8.2)
[2019-12-16] MEDS ORDERED: VANCOMYCIN 1 GRAM (PRE-DOCKED) 1,000 MG/250 ML BAG IVPB ONE (20:00)
[2019-12-16] MEDS ORDERED: CEFTRIAXONE 1 GM/50 ML BAG ONE (20:00)
[2019-12-16] MEDS ORDERED: AZITHROMYCIN IVPB 500 MG/250 ML BAG IVPB ONE (20:01)
[2019-12-16 21:09] LABS: MEAN PLT VOLUME 9.1 fl (7.5-11.1); PLATELET COUNT 140 K/MM3 (134-434)
[2019-12-16 21:13] LABS: ANISOCYTOSIS 3+
[2019-12-16 21:14] LABS: MACROCYTOSIS 1+
[2019-12-16 21:15] LABS: TARGET CELLS 1+
[2019-12-16 21:16] LABS: PLATELET ESTIMATE ADEQUATE
--- NOTE | 2019-12-16 22:42 | HP ---
CHIEF COMPLAINT:bilateral lower extremity and scrotal swelling and shortness of breath . PCP:Dr. Quinonez Descriptive Catalog Librarian: Dr. Brooke HISTORY OF PRESENT ILLNESS: 64 year old male with a past medical history of HTN, HLD, JUANA (not using CPAP), COPD, GERD, systolic congestive heart failure, paroxysmal atrial fibrillation (on Eliquis, s/p cardioversion 11/2016) who presented to ED with 3 weeks of gradual onset anasarca and mild shortness of breath worse on exertion. He denied chest pain, headache, dizziness, fever, chills, cough, nausea, vomiting, diarrhea, constipation, dysuria, frequency, urgency and hematuria. ER course was notable for: (1)CXR- right mid and lower lung and left lung base with PNA (2)BNP- 1336, Fluid Overload, CXR- with small right and likely minimal left pleural efussion, received IV lasix 40mg once (3)troponin 0.10 (4)bilateral Lower Extremity Cellulitis (5)scrotal US -with small left hydrocele (6)bilateral eyes with yellowish drainage present (7)R/O COVID In the ER he was placed on a 100% nonrebreather and saturations improved. He remained hemodynamically stable. He received a dose of IV Azithromycin 500 mg and IV Vancomycin 1 gm for PNA. Cardiology was consulted and agreed with IV lasix 40 mg. He was admitted to [facility] for further medical/cardiac management/treatment for PNA, fluid overload ,? bilateral lower extremity cellulitis and Rule Out COVID-19. On arrival to floor he remained lethargic. He had no evidence of hypoxia on 100% nonrebreather. ABG was obtained and he was found to have a CO2 >100 and PH of 7.04. He had a maxwell placed. He diuresed 650cc of urine. He was given an additional dosage of IV lasix 40 mg. Furthermore he was transferred to the ICU setting for critical care monitoring. Recent Travel: no PAST MEDICAL HISTORY: Hypertension Hyperlipidemia JUANA (not using CPAP) COPD GERD systolic congestive heart failure paroxysmal atrial fibrillation PAST SURGICAL HISTORY: none Social History: Smoking:no Alcohol:no Drugs:no Allergies No Known Allergies Allergy (Verified 11/06/18 18:58) HOME MEDICATIONS: Home Medications Medication Instructions Recorded Ascorbate Calcium [Vitamin C] 1,000 mg PO DAILY 10/05/16 Lingle-3/Dha/Epa/Fish Oil [Lingle 3 350 mg PO DAILY 10/05/16 500 Softgel] Apixaban [Eliquis -] 5 mg PO BID #30 tablet 10/23/16 Multivit-Min/Folic/Vit K/Lycop 1 each PO DAILY 11/17/17 [Men's Multivitamin Caplet] Lisinopril [Prinivil] 2.5 mg PO DAILY #30 tablet 11/12/18 Metoprolol Tartrate [Lopressor -] 50 mg PO BID tablet 11/12/18 Pantoprazole Sodium [Protonix -] 40 mg PO DAILY #30 tablet.ec 11/12/18 Fluticasone/Vilanterol [Breo 1 inhaler IH DAILY 02/08/19 Ellipta 100-25 Mcg INH] Hydrochlorothiazide 1 cap PO DAILY 02/08/19 REVIEW OF SYSTEMS CONSTITUTIONAL: Absent: fever, chills, diaphoresis, generalized weakness, malaise, loss of appetite, weight change, lethargy HEENT: Absent: rhinorrhea, nasal congestion, throat pain, throat swelling, difficulty swallowing, mouth swelling, ear pain, eye pain, visual changes, yellowish drainage to both eyes CARDIOVASCULAR: Absent: chest pain, syncope, palpitations, irregular heart rate, lightheadedness, peripheral edema RESPIRATORY: Absent: cough, shortness of breath, dyspnea with exertion, orthopnea, wheezing, stridor, hemoptysis GASTROINTESTINAL: Absent: abdominal pain, abdominal distension, nausea, vomiting, diarrhea, constipation, melena, hematochezia GENITOURINARY: Absent: dysuria, frequency, urgency, hesitancy, hematuria, flank pain, genital pain, scrotal swelling MUSCULOSKELETAL: Absent: myalgia, arthralgia, joint swelling, back pain, neck pain SKIN: Absent: rash, itching, pallor, redness to lower extremities HEMATOLOGIC/IMMUNOLOGIC: Absent: easy bleeding, easy bruising, lymphadenopathy, frequent infections ENDOCRINE: Absent: unexplained weight gain, unexplained weight loss, heat intolerance, cold intolerance NEUROLOGIC: Absent: headache, focal weakness or paresthesias, dizziness, unsteady gait, se izure, mental status changes, bladder or bowel incontinence PSYCHIATRIC: Absent: anxiety, depression, suicidal or homicidal ideation, hallucinations. PHYSICAL EXAMINATION Vital Signs - 24 hr 12/16/19 12/16/19 12/16/19 17:48 20:13 21:00 Temperature 98.4 F Pulse Rate 91 H Pulse Rate [ 88 Left Radial] Respiratory 26 H 20 Rate Blood Pressure 162/73 Blood Pressure 119/66 [Right Arm] O2 Sat by Pulse 76 L 96 97 Oximetry (%) General no acute distress but appears lethargic but arousable Vital signs reviewed afebrile Lungs crackles present bilaterally nonlabored breathing effort no use of accessory muscles Heart s1s2 rate regular no murmurs Abdomen nontender distended +ascites and redness present +scrotal swelling Extremities BLE redness and swelling warm to touch Skin lips pink Mood calm Laboratory Results - last 24 hr 12/16/19 12/16/19 12/16/19 18:40 18:40 18:40 WBC 6.8 RBC 7.36 H Hgb 17.1 H Hct 58.9 H D MCV 80.1 MCH 23.3 L MCHC 29.1 L RDW 24.4 H Plt Count 140 MPV 9.1 Absolute Neuts (auto) 4.8 Neutrophils % 69.7 Lymphocytes % 11.0 Monocytes % 15.8 H Eosinophils % 2.4 Basophils % 1.1 Nucleated RBC % 0 Hypochromia 1+ Platelet Estimate Adequate Platelet Comment Giant platelets Polychromasia 1+ Poikilocytosis 1+ Anisocytosis 3+ Macrocytosis 1+ Target Cells 1+ PT with INR 15.90 H INR 1.34 H Sodium 141 Potassium 4.5 Chloride 102 Carbon Dioxide 35 H Anion Gap 5 L BUN 21.3 H Creatinine 1.2 Est GFR (CKD-EPI)AfAm 72.59 Est GFR (CKD-EPI)NonAf 62.63 Random Glucose 97 Calcium 8.1 L Magnesium 1.7 L Total Bilirubin 0.8 AST 24 ALT 18 Alkaline Phosphatase 68 Creatine Kinase 60 Troponin I 0.10 H B-Natriuretic Peptide Total Protein 6.4 Albumin 2.9 L 12/16/19 18:40 WBC RBC Hgb Hct MCV MCH MCHC RDW Plt Count MPV Absolute Neuts (auto) Neutrophils % Lymphocytes % Monocytes % Eosinophils % Basophils % Nucleated RBC % Hypochromia Platelet Estimate Platelet Comment Polychromasia Poikilocytosis Anisocytosis Macrocytosis Target Cells PT with INR INR Sodium Potassium Chloride Carbon Dioxide Anion Gap BUN Creatinine Est GFR (CKD-EPI)AfAm Est GFR (CKD-EPI)NonAf Random Glucose Calcium Magnesium Total Bilirubin AST ALT Alkaline Phosphatase Creatine Kinase Troponin I B-Natriuretic Peptide 1336.5 H Total Protein Albumin ASSESSMENT/PLAN: Mr. Alonso is a 64 year old male with a past medical history of HTN, HLD, JUANA (not using CPAP), COPD, GERD, systolic congestive heart failure, paroxysmal atrial fibrillation (on Eliquis, s/p cardioversion 11/2016) who presented with 3 weeks of gradual onset anasarca, scrotal swelling and mild shortness of breath worse on exertion. He as found to have a PNA, on clinical exam signs of fluid overload, ?bilateral lower extremity cellulitis and bilateral hydrocele. 1. Acute Respiratory Failure secondary to PNA He was initially placed on a 100% non rebreather and saturated well >95% however remained lethargic. ABG showed C02>100 and pH of 7.04, placed on BIPAP and transferred to ICU for critical care monitoring Received a dose of IV azithromycin 500 mg and IV Vancomycin 1 gm c/w IV Azithromycin 500 mg daily and IV Vancomycin 1 gm Pulmonary Consulted- Dr. Quinonez 2. Fluid Overload/ Hx of Systolic Congestive Heart Failure BNP 1336(previously 1613 in October ) c/w with IV lasix 40mg twice daily, consider IV lasix gtt monitor renal studies, electrolytes, strict I&O's and daily weights Cardiology- Dr. Brooke consulted 3.Bilateral Lower Extremity Cellulitis c/w IV Vancomycin ID consulted- Dr. Hills 4. Hydrocele scrotal US- small left hydrocele Urology consulted- Dr. Escobar 5. Hypertension stable c/w lisinopril, metoprolol tartrate and HCTZ 6. Atrial Fibrillation currently in a normal sinus rhythm c/w metoprolol tartrate for rate control c/w eliquis for anticoagulation/stroke prophylaxis 7. Elevated Troponin troponin 0.10, followed by 0.09. EKG with no acute ischemic changes likely demand mediated ischemia continue to trend 8. Rule Out COVID CXR with infiltrate, currently afebrile, normal WBC, LFT's normal follow up on nasal swab(taken 12/15) maintain strict airborne/contact precautions 9. Hypomagnesia repleted FEN avoid IV fluids to prevent acute pulmonary edema BMP and magnesium daily and replace electrolytes as needed low sodium diet DVT Prophylaxis c/w home dose of eliquis Visit type - Emergency Visit Emergency Visit: Yes ED Registration Date: 12/16/19 Care time: The patient presented to the Emergency Department on the above date and was hospitalized for further evaluation of their emergent condition. - New Patient This patient is new to me today: Yes Date on this admission: 12/17/19 - Critical Care Critical Care patient: Yes Total Critical Care Time (in minutes): 40 Critical Care Statement: The care of this patient involved high complexity d ecision making to prevent further life threatening deterioration of the patient's condition and/or to evaluate & treat vital organ system(s) failure or risk of failure.
[2019-12-16] MEDS ORDERED: MAGNESIUM SULF 50% (8.12 MEQ/2 ML-1 GM VIAL) IVPB ONE (23:23)
[2019-12-17] MEDS: METOPROLOL TARTRATE 50 MG TABLET (FP) PO SCH ×2 (00:57→10:00)
[2019-12-17] MEDS: APIXABAN 5 MG TABLET PO SCH ×3 (00:57→21:08)
[2019-12-17 00:58] LABS: ARTERIAL BLOOD GAS PO2 145.2 mmHg (80-100)
[2019-12-17] MEDS: BUDESONIDE/FORMETEROL FUMARATE 80/4.5 mcg INHALER IH SCH ×3 (00:58→21:06)
[2019-12-17 00:59] LABS: ALLENS TEST POSITIVE; ARTERIAL BLD GAS O2 SATURATION 97.4 % (95-98); ARTERIAL BLOOD GAS BASE EXCESS 2.2 mmol/L (-2-2)
[2019-12-17 01:02] LABS: ARTERIAL BLOOD GAS pH 7.04 (7.35-7.45)
[2019-12-17 01:03] LABS: ARTERIAL BLOOD GAS PCO2 > 100.0 mmHg (35-45)
[2019-12-17] MEDS ORDERED: FUROSEMIDE 40 MG/4 ML INJECTABLE VIAL IVPUSH ONE (01:55)
--- NOTE | 2019-12-17 02:42 | CONSULT ---
Consultation: REQUESTING PROVIDER: CONSULT REQUEST: We have been asked to medically evaluate this patient for (Acute hypercapneic respiratory failure and CHF exacerbation). HISTORY OF PRESENT ILLNESS: 64 year old male with a past medical history of HTN, HLD, JUANA (not using CPAP), COPD, GERD, systolic congestive heart failure, paroxysmal atrial fibrillation (on Eliquis, s/p cardioversion 11/2016) who presented with 3 weeks of gradual onset anasarca, scrotal swelling and mild shortness of breath worse on exertion. He as found to have a PNA, on clinical exam signs of fluid overload, ?bilateral lower extremity cellulitis and bilateral hydrocele, and respiratory acidosis is admitted for Acute hypercapneic respiratory failure and Acute CHF exacerbation REVIEW OF SYSTEMS: Unable to assess, pt on BiPAP and constantly falling asleep. Will reassess PHYSICAL EXAMINATION Vital Signs - 24 hr 12/16/19 12/16/19 12/16/19 17:48 19:59 20:13 Temperature 98.4 F Pulse Rate 91 H Pulse Rate [ 88 Left Radial] Respiratory 26 H 20 Rate Blood Pressure 162/73 Blood Pressure 119/66 [Right Arm] O2 Sat by Pulse 76 L 95 96 Oximetry (%) 12/16/19 12/16/19 12/17/19 21:00 23:28 01:48 Temperature 98.1 F Pulse Rate Pulse Rate [ Left Radial] Respiratory 18 Rate Blood Pressure 125/93 Blood Pressure [Right Arm] O2 Sat by Pulse 97 95 Oximetry (%) 12/17/19 02:00 Temperature Pulse Rate 86 Pulse Rate [ Left Radial] Respiratory 18 Rate Blood Pressure 101/76 Blood Pressure [Right Arm] O2 Sat by Pulse Oximetry (%) GENERAL: Awake, alert, and fully oriented, in no acute distress. HEAD: Normal with no signs of trauma. EYES: Pupils equal, round and reactive to light, extraocular movements intact, sclera anicteric, conjunctiva clear. No lid lag. EARS, NOSE, THROAT: Ears normal, nares patent, oropharynx clear without exudates. Moist mucous membranes. NECK: Normal range of motion, supple without lymphadenopathy, JVD, or masses. LUNGS: Breath sounds equal, clear to auscultation bilaterally. No wheezes, and no crackles. No accessory muscle use. HEART: Regular rate and rhythm, normal S1 and S2 without murmur, rub or gallop. ABDOMEN: Soft, nontender, not distended, normoactive bowel sounds, no guarding, no rebound, no masses. No hepatomegaly or splenomegaly. MUSCULOSKELETAL: Normal range of motion at all joints. No bony deformities or tenderness. No CVA tenderness. UPPER EXTREMITIES: 2+ pulses, warm, well-perfused. No cyanosis. No clubbing. Cap refill <2 seconds. No peripheral edema. LOWER EXTREMITIES: 2+ pulses, warm, well-perfused. No calf tenderness. No peripheral edema. NEUROLOGICAL: Cranial nerves II-XII intact. Normal speech. Normal gait. PSYCHIATRIC: Cooperative. Good eye contact. Appropriate mood and affect. SKIN: Warm, dry, normal turgor, no rashes or lesions noted. Laboratory Results - last 24 hr 12/16/19 12/16/19 12/16/19 18:40 18:40 18:40 WBC 6.8 RBC 7.36 H Hgb 17.1 H Hct 58.9 H D MCV 80.1 MCH 23.3 L MCHC 29.1 L RDW 24.4 H Plt Count 140 MPV 9.1 Absolute Neuts (auto) 4.8 Neutrophils % 69.7 Lymphocytes % 11.0 Monocytes % 15.8 H Eosinophils % 2.4 Basophils % 1.1 Nucleated RBC % 0 Hypochromia 1+ Platelet Estimate Adequate Platelet Comment Giant platelets Polychromasia 1+ Poikilocytosis 1+ Anisocytosis 3+ Macrocytosis 1+ Target Cells 1+ PT with INR 15.90 H INR 1.34 H Anticoagulation Therapy Puncture Site ABG pH ABG pCO2 at Pt Temp ABG pO2 at Pt Temp ABG HCO3 ABG O2 Sat (Measured) ABG O2 Content ABG Base Excess Ye Test Patient On Oxygen O2 Delivery Device Oxygen Flow Rate Vent Mode Vent Rate Mechanical Rate Pressure Support Vent Sodium 141 Potassium 4.5 Chloride 102 Carbon Dioxide 35 H Anion Gap 5 L BUN 21.3 H Creatinine 1.2 Est GFR (CKD-EPI)AfAm 72.59 Est GFR (CKD-EPI)NonAf 62.63 Random Glucose 97 Calcium 8.1 L Magnesium 1.7 L Total Bilirubin 0.8 AST 24 ALT 18 Alkaline Phosphatase 68 Creatine Kinase 60 Troponin I 0.10 H B-Natriuretic Peptide Total Protein 6.4 Albumin 2.9 L 12/16/19 12/17/19 12/17/19 18:40 00:05 00:36 WBC RBC Hgb Hct MCV MCH MCHC RDW Plt Count MPV Absolute Neuts (auto) Neutrophils % Lymphocytes % Monocytes % Eosinophils % Basophils % Nucleated RBC % Hypochromia Platelet Estimate Platelet Comment Polychromasia Poikilocytosis Anisocytosis Macrocytosis Target Cells PT with INR INR Anticoagulation Therapy No Result Required. Puncture Site Left radial ABG pH 7.04 L* ABG pCO2 at Pt Temp > 100.0 H* ABG pO2 at Pt Temp 145.2 H ABG HCO3 40.1 H ABG O2 Sat (Measured) 97.4 ABG O2 Content No Result Required. ABG Base Excess 2.2 H Ye Test Positive Patient On Oxygen Yes O2 Delivery Device Nrm Oxygen Flow Rate 100% Vent Mode No Result Required. Vent Rate No Result Required. Mechanical Rate No Result Required. Pressure Support Vent No Result Required. Sodium Potassium Chloride Carbon Dioxide Anion Gap BUN Creatinine Est GFR (CKD-EPI)AfAm Est GFR (CKD-EPI)NonAf Random Glucose Calcium Magnesium Total Bilirubin AST ALT Alkaline Phosphatase Creatine Kinase Troponin I 0.09 H B-Natriuretic Peptide 1336.5 H Total Protein Albumin Active Medications Generic Name Dose Route Start Last Admin Trade Name Freq PRN Reason Stop Dose Admin Apixaban 5 mg 12/16/19 22:00 12/17/19 00:57 Eliquis - PO Not Given BID LYNETTE Ascorbic Acid 1,000 mg 12/17/19 10:00 Vitamin C - PO DAILY LYNETTE Budesonide/Formoterol Fumarate 2 puff 12/16/19 22:00 12/17/19 00:58 Symbicort 80/4.5mcg - IH Not Given BID LYNETTE Furosemide 40 mg 12/17/19 01:55 Lasix Injection - IVPUSH 12/17/19 01:56 ONCE ONE Furosemide 80 mg 12/17/19 06:00 Lasix Injection - IVPUSH BID@0600,1400 LYNETTE Hydrochlorothiazide 12.5 mg 12/17/19 10:00 Hctz - PO DAILY LYNETTE Azithromycin 500 mg in 250 mls @ 250 mls/hr 12/17/19 10:00 Zithromax 500mg Ivpb (Pre-Docked) IVPB DAILY [facility]NETTE Lisinopril 2.5 mg 12/17/19 10:00 Prinivil PO DAILY [facility] Metoprolol Tartrate 50 mg 12/16/19 22:00 12/17/19 00:57 Lopressor - PO Not Given BID [facility] Multivitamins/Minerals/Vitamin C 1 tab 12/17/19 10:00 Tab-A-Vit - PO DAILY [facility] Non-Formulary Medication 350 mg 12/17/19 10:00 Cairo-3/Dha/Epa/Fish Oil [[place]airo 3 500 Softgel] PO DAILY [facility] Pantoprazole Sodium 40 mg 12/17/19 10:00 Protonix - PO DAILY [facility] Vancomycin HCl 1,000 mg 12/17/19 10:00 Vancomycin (Pre-Docked) IVPB DAILY [facility] Protocol Vancomycin HCl 1,000 mg 12/17/19 20:00 Vancomycin (Pre-Docked) IVPB 12/17/19 20:01 Q24H [facility] Protocol ASSESSMENT/PLAN: 64 year old male with a past medical history of HTN, HLD, JUANA (not using CPAP), COPD, GERD, systolic congestive heart failure, paroxysmal atrial fibrillation (on Eliquis, s/p cardioversion 11/2016) who presented with 3 weeks of gradual onset anasarca, scrotal swelling and mild shortness of breath worse on exertion, found to have right lobe PNA, fluid overload, bilateral lower extremity cellulitis and bilateral hydrocele, and respiratory acidosis is admitted for Acute hypercapneic respiratory failure and Acute CHF exacerbation #Neuro Pt sedated and vented minimally responsive, difficult to arouse CO2 narcosis- falling asleep during examination Propofol #CV Fluid Overload 2/2 sCHF exacerbation, CXR- with small right and left pleural effusion BNP- 1336 troponin 0.10> .09 monitor renal studies, electrolytes, strict I&O's and daily weights Clinical signs of severe volume overload- anasarca, b/l LE edema, crackles on b/l lungs Aggressive diuresis- Lasix 80 BID, will uptitrate Cardiology following on lisinopril and metoprolol #Pulm Acute hypercapneic resp failure 2/2 to Community acquired pneumonia vs COPD exacerbation CXR- right mid and lower lung and left lung base pneumonia ABG showed 7.04/100/145/40- CO2 narcosis Saturation >90 IV azithromycin 500 mg and IV Vancomycin 1 gm Pt on BiPaP, will monitor for 1 hour, r/p ABG If remains in resp acidosis- pt had to intubated #ID Bilateral Lower Extremity Cellulitis Vancomycin cont ID consulted no leukocytosis or fever #Renal stable renal function appropriate cont diuresis aggressive #GI Anasarca cont diuresis #Heme hemoconcentrated monitor #DVT ppx On eliquis #GI ppx protonix FEN monitor lytes Fluid restrictions NPO Aspiration risk Dispo: We will continue to follow the patient. Thank you for this consultative opportunity. Pt s/p intubation Attempted to notify and contact pt's mother/ as per chart, unable to reach. Will continue trying Visit type - Emergency Visit Emergency Visit: Yes ED Registration Date: 12/16/19 Care time: The patient presented to the Emergency Department on the above date and was hospitalized for further evaluation of their emergent condition. - New Patient This patient is new to me today: Yes Date on this admission: 12/19/19 - Critical Care Critical Care patient: No ATTENDING PHYSICIAN STATEMENT I saw and evaluated the patient. I reviewed the resident's note and discussed the case with the resident. I agree with the resident's findings and plan as documented. SUBJECTIVE: OBJECTIVE: ASSESSMENT AND PLAN:
[2019-12-17 03:27] LABS: ALLENS TEST POSITIVE; ARTERIAL BLD GAS O2 SATURATION 85.1 % (95-98); ARTERIAL BLOOD GAS BASE EXCESS 5.5 mmol/L (-2-2)
[2019-12-17 03:30] LABS: ARTERIAL BLOOD GAS PCO2 > 100.0 mmHg (35-45); ARTERIAL BLOOD GAS pH 7.16 (7.35-7.45)
[2019-12-17] MEDS ORDERED: RAPID SEQUENCE INTUBATION KIT NR ONE (03:49)
[2019-12-17] MEDS: PROPOFOL 1,000,000 MCG/100 ML VIAL IVPB SCH ×5 (04:00→21:09)
--- NOTE | 2019-12-17 04:22 | PROC ---
Intubation - Intubation Intubation Method: orotracheal Blade used: Glidescope Tube Size (cm): 7.5 Tube position @ lip (cm): 22 Tube position confirmed by: Direct visualization, CO2 detector, Chest x-ray, Breath sounds (CXR pending) Breath Sounds after Intubation: equal Post Intubation Xray: Yes (pending) Remarks: Anesthesiology Called re. pt. with hypercarbic respiratory failure, decreased mental status on BiPAP. All equipment available at bedside. Propofol 100mg followed by Succinylcholie 120mg IV push by RN.BMV with 100%O2 AMBU, easy mask. Glidesope view grade 1-2, arytenoid cartilage and surrounding tissue very edematous. ETT passed with ease. Ventilator attached. VSS: 95/67, HR 74%, SpO2 96%. CXR pending.
--- NOTE | 2019-12-17 04:29 | PROC ---
Intubation - Intubation Reason for Intubation: Ventilatory Failure Intubation Method: orotracheal Blade used: Glidescope Tube Size (cm): 7.5 Tube position @ lip (cm): 22 Tube position confirmed by: Direct visualization, CO2 detector, Breath sounds Breath Sounds after Intubation: equal Post Intubation Xray: Yes
[2019-12-17] MEDS ORDERED: FUROSEMIDE 40 MG/4 ML INJECTABLE VIAL IVPUSH SCH (06:00)
[2019-12-17] MEDS: FUROSEMIDE 40 MG/4 ML INJECTABLE VIAL IVPUSH SCH ×3 (06:02→13:50)
[2019-12-17 07:07] LABS: HEMOGLOBIN 16.4 GM/dL (11.7-16.9); MCH 23.1 pg (25.7-33.7); MCHC 28.7 g/dl (32.0-35.9); MEAN CELL VOLUME 80.5 fl (80-96); MEAN PLT VOLUME 8.7 fl (7.5-11.1); PLATELET COUNT 111 K/MM3 (134-434); RDW 23.9 % (11.9-15.9); WHITE BLOOD COUNT 9.2 K/mm3 (4.0-10.0)
[2019-12-17 07:16] LABS: RBC 7.08 M/mm3 (4.00-5.60)
[2019-12-17 07:50] LABS: BLOOD UREA NITROGEN 16.6 mg/dL (7-18); CALCIUM 7.8 mg/dL (8.5-10.1); CREATININE 1.1 mg/dL (0.55-1.3); MAGNESIUM 1.8 mg/dL (1.8-2.4); POTASSIUM 4.9 mmol/L (3.5-5.1)
--- NOTE | 2019-12-17 08:49 | EKG ---
Test Reason : Blood Pressure : / mmHG Vent. Rate : 092 BPM Atrial Rate : 092 BPM P-R Int : 168 ms QRS Dur : 084 ms QT Int : 366 ms P-R-T Axes : 057 100 -03 degrees QTc Int : 452 ms NORMAL SINUS RHYTHM POSSIBLE LEFT ATRIAL ENLARGEMENT RIGHTWARD AXIS POSSIBLE ANTEROSEPTAL INFARCT , AGE UNDETERMINED ABNORMAL ECG WHEN COMPARED WITH ECG OF 08-NOV-2018 09:07, BORDERLINE CRITERIA FOR ANTEROSEPTAL INFARCT ARE NOW PRESENT T WAVE INVERSION LESS EVIDENT IN ANTERIOR LEADS Confirmed by Gayle Gonzales ([id number]) on 12/17/2019 8:49:34 AM Referred By: Confirmed By:Gayle Gonzales
[2019-12-17] MEDS ORDERED: OMEGA PO SCH (10:00)
[2019-12-17] MEDS: ASCORBIC ACID 500 MG TABLET (FP) PO SCH (10:00)
[2019-12-17] MEDS: HYDROCHLOROTHIAZIDE 12.5 MG CAPSULE (FP) PO SCH (10:00)
[2019-12-17] MEDS ORDERED: AZITHROMYCIN IVPB 250 MG in DEXTROSE 5%-WATER - 250 ML IVPB SCH (10:00)
[2019-12-17] MEDS ORDERED: EPA PO SCH (10:00)
[2019-12-17] MEDS ORDERED: PANTOPRAZOLE 40 MG TABLET PO SCH (10:00)
[2019-12-17] MEDS ORDERED: LISINOPRIL 5 MG TABLET (FP) PO SCH (10:00)
[2019-12-17] MEDS: MULTIVITAMINS (DAILY MVI) TABLET (FP) PO SCH (10:00)
[2019-12-17] MEDS ORDERED: VANCOMYCIN 1 GM in D5W (PRE-DOCKED) 1,000 MG/250 ML IVPB SCH ×2 (10:00→20:00)
[2019-12-17] MEDS ORDERED: DHA PO SCH (10:00)
[2019-12-17] MEDS ORDERED: [UNRECOGNIZED DRUG - OTHER] PO SCH (10:00)
[2019-12-17] MEDS ORDERED: FISH OIL PO SCH (10:00)
[2019-12-17] MEDS: AZITHROMYCIN IVPB 500 MG/250 ML BAG IVPB SCH (10:17)
--- NOTE | 2019-12-17 11:05 | CONSULT ---
Consult Consult Specialty:: Pulm/CCM Reason for Consultation:: Hypoxic/Hypercarbic Respiratory Failure - History of Present Illness Chief Complaint: Dyspnea History of Present Illness: 64 year old male with a past medical history of HTN, HLD, JUANA (not using CPAP), COPD, GERD, systolic congestive heart failure, paroxysmal atrial fibrillation (on Eliquis, s/p cardioversion 11/2016) who presented with 3 weeks of gradual onset anasarca, scrotal swelling and mild shortness of breath worse on exertion. CXR s/f diffused bilat opacities with c/f PNA +/-fluid overload. Also with c/f bilateral lower extremity cellulitis and bilateral hydrocele. ABG s/f acute respiratory acidosis. Failed BiPAP. Intubated for hypercarbic/hypoxic respiratory failure m/l 2/2 acute CHF exacerbation +/- CAP. he was transferred to ICU for further management. - Past Medical History Cardio/Vascular: Yes: AFIB, CHF, HTN Pulmonary: Yes: COPD, Previously Intubated, Sleep Apnea (uses mouth guard/jaw advancer, "CPAP didn't work/fit") Gastrointestinal: Yes: GERD - Past Surgical History Past Surgical History: Yes: None - Alcohol/Substance Use Hx Alcohol Use: Yes History of Substance Use: reports: None - Smoking History Smoking history: Current every day smoker Have you smoked in the past 12 months: Yes Aproximately how many cigarettes per day: 20 If you are a former smoker, when did you quit?: 2 months ago - Social History Usual Living Arrangement: Alone ADL: Independent Home Medications - Allergies Allergies/Adverse Reactions: Allergies Allergy/AdvReac Type Severity Reaction Status Date / Time No Known Allergies Allergy Verified 11/06/18 18:58 - Home Medications Home Medications: Ambulatory Orders Ascorbate Calcium [Vitamin C] 1,000 mg PO DAILY 10/05/16 [place]-3/Dha/Epa/Fish Oil [[place] 3 500 Softgel] 350 mg PO DAILY 10/05/16 Apixaban [Eliquis -] 5 mg PO BID #30 tablet 10/23/16 Multivit-Min/Folic/Vit K/Lycop [Men's Multivitamin Caplet] 1 each PO DAILY 11/17/17 Lisinopril [Prinivil] 2.5 mg PO DAILY #30 tablet 11/12/18 Metoprolol Tartrate [Lopressor -] 50 mg PO BID tablet 11/12/18 Pantoprazole Sodium [Protonix -] 40 mg PO DAILY #30 tablet.ec 11/12/18 Fluticasone/Vilanterol [Breo Ellipta 100-25 Mcg INH] 1 inhaler IH DAILY 02/08/19 Hydrochlorothiazide 1 cap PO DAILY 02/08/19 Family Medical History Family History: Unable to Obtain Review of Systems Unable to obtain ROS, reason: intubated and sedated Physical Exam Vital Signs: Vital Signs Temperature 98.1 F 12/17/19 10:00 Pulse Rate 66 12/17/19 10:00 Respiratory Rate 26 H 12/17/19 10:00 Blood Pressure 95/60 12/17/19 10:00 O2 Sat by Pulse Oximetry (%) 95 12/17/19 08:50 Constitutional: Yes: Obese Eyes: Yes: WNL HENT: Yes: Atraumatic, Normocephalic Neck: Yes: Supple, Trachea Midline Cardiovascular: Yes: Regular Rate and Rhythm, S1, S2 Respiratory: Yes: Intubated, Rales Gastrointestinal: Yes: Normal Bowel Sounds, Soft, Abdomen, Obese Edema: Yes Edema: LUE: 1+, RUE: 1+, LLE: 2+, RLE: 2+ Peripheral Pulses WNL: Yes Neurological: Yes: Other (Sedated) Labs: CBC, BMP 12/17/19 06:15 12/17/19 06:15 ABG Results ABG pH 7.41 (7.35-7.45) 12/17/19 11:15 ABG pCO2 at Pt Temp 62.0 mmHg (35-45) H 12/17/19 11:15 ABG pO2 at Pt Temp 73.7 mmHg (80-100) L 12/17/19 11:15 ABG HCO3 39.0 mmol/L (22-27) H 12/17/19 11:15 ABG O2 Sat (Measured) 94.6 % (95-98) L 12/17/19 11:15 ABG O2 Content No Result Required. 12/17/19 11:15 ABG Base Excess 11.2 mmol/L (-2-2) H 12/17/19 11:15 Imaging - Results Chest X-ray: Report Reviewed (Bilat diffuse opacity; small rt pleural effusion) Assessment/Plan 64 year old male with a past medical history of HTN, HLD, JUANA (not using CPAP), COPD, GERD, systolic congestive heart failure, paroxysmal atrial fibrillation (on Eliquis, s/p cardioversion 11/2016) transferred to ICU s/p intubation for hypercarbic/hypoxic respiratory failure m/l 2/2 acute CHF exacerbation +/- CAP. Resp: -LTVV for plat <30 -Maintain O2 sat >92% -Aggressive diuresis as vannesa -ABG and CXR -Sedation for vent synchrony -Maintain MAP>65 -Cont Lopressor and Lisinopril as BP vannesa d/t hx Afib. -Monitor BNP -Monitor UOP and BMP -Replete electrolytes -Cont empiric antibiotics for CAP coverage -F/u cultures and COVID swab -Maintain isolation until COVID r/o -Check procal, lact -NGT -NPo for now -cont Eliquis -GI proph -Bowel regimen Jaki Lopez, ACNP CCT 35mins
--- NOTE | 2019-12-17 11:06 | CON.CARD ---
Consult Consult Specialty:: Cardiology Referred by:: Emergency Medicine Reason for Consultation:: Acute on chronic diastolic heart failure - History of Present Illness Chief Complaint: Dyspnea History of Present Illness: 64 year old male with a past medical history of HTN, HLD, JUANA (not using CPAP), COPD, GERD, systolic congestive heart failure, paroxysmal atrial fibrillation (on Eliquis, s/p cardioversion 11/2016) who presented with 3 weeks of gradual onset anasarca, scrotal swelling and mild shortness of breath worse on exertion. CXR s/f diffused bilat opacities with c/f PNA +/-fluid overload, ?bilateral lower extremity cellulitis and bilateral hydrocele, and respiratory acidosis is admitted for Acute hypercapneic respiratory failure and Acute CHF exacerbation, intubated for progressive hypercarbic respiratory failure, decreased mental status on BiPAP. - History Source History Provided By: Medical Record Limitations to Obtaining History: Clinical Condition - Past Medical History Cardio/Vascular: Yes: AFIB, CHF, HTN Pulmonary: Yes: COPD, Previously Intubated, Sleep Apnea (uses mouth guard/jaw advancer, "CPAP didn't work/fit") Gastrointestinal: Yes: GERD - Past Surgical History Past Surgical History: Yes: None - Alcohol/Substance Use Hx Alcohol Use: Yes History of Substance Use: reports: None - Smoking History Smoking history: Current every day smoker Have you smoked in the past 12 months: Yes Aproximately how many cigarettes per day: 20 If you are a former smoker, when did you quit?: 2 months ago - Social History Usual Living Arrangement: Alone ADL: Independent Home Medications - Allergies Allergies/Adverse Reactions: Allergies Allergy/AdvReac Type Severity Reaction Status Date / Time No Known Allergies Allergy Verified 11/06/18 18:58 - Home Medications Home Medications: Ambulatory Orders Ascorbate Calcium [Vitamin C] 1,000 mg PO DAILY 10/05/16 [place]-3/Dha/Epa/Fish Oil [[place] 3 500 Softgel] 350 mg PO DAILY 10/05/16 Apixaban [Eliquis -] 5 mg PO BID #30 tablet 10/23/16 Multivit-Min/Folic/Vit K/Lycop [Men's Multivitamin Caplet] 1 each PO DAILY 11/17/17 Lisinopril [Prinivil] 2.5 mg PO DAILY #30 tablet 11/12/18 Metoprolol Tartrate [Lopressor -] 50 mg PO BID tablet 11/12/18 Pantoprazole Sodium [Protonix -] 40 mg PO DAILY #30 tablet.ec 11/12/18 Fluticasone/Vilanterol [Breo Ellipta 100-25 Mcg INH] 1 inhaler IH DAILY 02/08/19 Hydrochlorothiazide 1 cap PO DAILY 02/08/19 Review of Systems Unable to obtain ROS, reason: Sedated and intubated Vital Signs: Vital Signs Temperature 98.1 F 12/17/19 10:00 Pulse Rate 66 12/17/19 10:00 Respiratory Rate 26 H 12/17/19 10:00 Blood Pressure 95/60 12/17/19 10:00 O2 Sat by Pulse Oximetry (%) 95 12/17/19 08:50 Respiratory: Yes: Intubated, Mechanically Ventilated, Rhonchi, SOB Gastrointestinal: Yes: Normal Bowel Sounds, Soft, Abdomen, Obese Renal/: Yes: Hilario Present Cardiovascular: Yes: Regular Rate and Rhythm JVD: No Carotid Bruit: No Heart Sounds: Yes: S1, S2 Edema: Yes Edema: LLE: 2+, RLE: 2+ - Other Data Labs, Other Data: CBC, BMP 12/17/19 06:15 12/17/19 06:15 INR, PTT INR 1.34 (0.83-1.09) H 12/16/19 18:40 Troponin, BNP 12/16/19 12/16/19 12/17/19 18:40 18:40 00:05 Troponin I 0.10 H 0.09 H B-Natriuretic Peptide 1336.5 H 12/17/19 06:15 Troponin I 0.08 H B-Natriuretic Peptide Troponin, BNP 12/16/19 12/16/19 12/17/19 18:40 18:40 00:05 Troponin I 0.10 H 0.09 H B-Natriuretic Peptide 1336.5 H 12/17/19 06:15 Troponin I 0.08 H B-Natriuretic Peptide NSR @ 65 anterolateral TWI Tele: NSR no PAF Ejection Fraction %: LVEF > or = 40 % Imaging - Results Chest X-ray: Report Reviewed (Right mid and lower lung and left lung base infiltrates) Problem List - Problems (1) Congestive heart failure (CHF) Code(s): I50.9 - HEART FAILURE, UNSPECIFIED Qualifiers: Heart failure type: diastolic Heart failure chronicity: acute on chronic Qualified Code(s): I50.33 - Acute on chronic diastolic (congestive) heart fail ure (2) Pneumonia Code(s): J18.9 - PNEUMONIA, UNSPECIFIED ORGANISM Qualifiers: Pneumonia type: due to unspecified organism Laterality: right Lung location: lower lobe of lung Qualified Code(s): J18.9 - Pneumonia, unspecified organism (3) Acute on chronic diastolic (congestive) heart failure Code(s): I50.33 - ACUTE ON CHRONIC DIASTOLIC (CONGESTIVE) HEART FAILURE (4) Acute respiratory failure with hypoxia and hypercarbia Code(s): J96.01 - ACUTE RESPIRATORY FAILURE WITH HYPOXIA; J96.02 - ACUTE RESPIRATORY FAILURE WITH HYPERCAPNIA (5) Atrial fibrillation Code(s): I48.91 - UNSPECIFIED ATRIAL FIBRILLATION Qualifiers: Atrial fibrillation type: paroxysmal Qualified Code(s): I48.0 - Paroxysmal atrial fibrillation (6) COPD (chronic obstructive pulmonary disease) Code(s): J44.9 - CHRONIC OBSTRUCTIVE PULMONARY DISEASE, UNSPECIFIED Qualifiers: COPD type: unspecified COPD Qualified Code(s): J44.9 - Chronic obstructive pulmonary disease, unspecified (7) Hypertension Code(s): I10 - ESSENTIAL (PRIMARY) HYPERTENSION Qualifiers: Hypertension type: essential hypertension Qualified Code(s): I10 - Essential (primary) hypertension (8) Lymphedema of both lower extremities Code(s): I89.0 - LYMPHEDEMA, NOT ELSEWHERE CLASSIFIED (9) Pleural effusion Code(s): J90 - PLEURAL EFFUSION, NOT ELSEWHERE CLASSIFIED Assessment/Plan 10/26/2017 Normal LV size with mild LVH, normal LV fxn, normal RV size and fxn, mild LAE, mild MR, mild-mod TR, mild NV, RVSP 43 mmHg 11/19/2016 Lexiscan Myoview: Apical ischemia, LVEF 45-52% 10/06/2016 Echocardiography revealed mild to moderate LV systolic dysfunction, moderate TR, RVSP of 30-40 mmH 1. Acute on chronic Hypoxic and Hypercapneic Respiratory Failure 2. Acute on chronic LV Diastolic Heart Failure with pleural effusion 3. R/o PNA 4. Paroxysmal atrial fibrillation with periods of rapid ventricular response pos t DCCV in SR, [id number] score of 2 5. Obstructive Sleep Apnea/Obesity Hypoventilation Syndrome with dental appliance 6. HTN/HCVD 7. Hypercholesterolemia 8. CAD angina pectoris 9. H/o RLE cellulitis with abscess s/p debridement Plan: 1. Vent management per ABG, f/u COVID 19, empiric abx per C&S, procalcitonin, DVT and GI prophylaxis 2. IV diuresis with monitor diuretic response, renal fxn and electrolytes 3. Resume Lopressor 25 mg BID, Lisinopril 2.5 mg QD and Eliquis 5 bid as hemodynamics tolerate 4. Thank you for consultative opportunity
[2019-12-17 11:39] LABS: ARTERIAL BLD GAS O2 SATURATION 94.6 % (95-98); ARTERIAL BLOOD GAS BASE EXCESS 11.2 mmol/L (-2-2); ARTERIAL BLOOD GAS PO2 73.7 mmHg (80-100); ARTERIAL BLOOD GAS pH 7.41 (7.35-7.45)
[2019-12-17 11:40] LABS: ALLENS TEST POSITIVE
[2019-12-18] MEDS: PROPOFOL 1,000,000 MCG/100 ML VIAL IVPB SCH ×2 (05:30)
[2019-12-18] MEDS: FUROSEMIDE 40 MG/4 ML INJECTABLE VIAL IVPUSH SCH (06:23)
[2019-12-18 06:46] LABS: ALBUMIN 2.1 g/dl (3.4-5.0); BILIRUBIN,TOTAL 1.4 mg/dL (0.2-1); CALCIUM 7.9 mg/dL (8.5-10.1); CREATININE 0.9 mg/dL (0.55-1.3); POTASSIUM 3.5 mmol/L (3.5-5.1); TOT PROT 4.8 g/dl (6.4-8.2)
[2019-12-18 07:53] LABS: HEMATOCRIT 55.5 % (35.4-49); HEMOGLOBIN 16.3 GM/dL (11.7-16.9); MCHC 29.3 g/dl (32.0-35.9); MEAN CELL VOLUME 78.5 fl (80-96); MEAN PLT VOLUME 9.6 fl (7.5-11.1); PLATELET COUNT 97 K/MM3 (134-434); WHITE BLOOD COUNT 7.3 K/mm3 (4.0-10.0)
[2019-12-18 07:56] LABS: RBC 7.07 M/mm3 (4.00-5.60)
[2019-12-18] MEDS ORDERED: PROPOFOL 1,000,000 MCG/100 ML VIAL ONE (09:55)
[2019-12-18] MEDS: AZITHROMYCIN IVPB 500 MG/250 ML BAG IVPB SCH (10:18)
[2019-12-18] MEDS: ASCORBIC ACID 500 MG TABLET (FP) PO SCH (10:19)
[2019-12-18] MEDS: BUDESONIDE/FORMETEROL FUMARATE 80/4.5 mcg INHALER IH SCH ×2 (10:19→22:13)
[2019-12-18] MEDS: HYDROCHLOROTHIAZIDE 12.5 MG CAPSULE (FP) PO SCH (10:19)
[2019-12-18] MEDS: APIXABAN 5 MG TABLET PO SCH ×2 (10:19→22:13)
[2019-12-18] MEDS: MULTIVITAMINS (DAILY MVI) TABLET (FP) PO SCH (10:19)
--- NOTE | 2019-12-18 11:00 | CON.ID ---
Consult Consult Specialty:: infectious diseases Referred by:: vidal Reason for Consultation:: pneumonia,sepsis,resp failure - History of Present Illness Chief Complaint: resp failure History of Present Illness: patient currently intubated and sedated,history obtained from the charts which is as follows 64 year old male with a past medical history of HTN, HLD, JUANA (not using CPAP), COPD, GERD, systolic congestive heart failure, paroxysmal atrial fibrillation (on Eliquis, s/p cardioversion 11/2016) who presented to ED with 3 weeks of gradual onset anasarca and mild shortness of breath worse on exertion. He denied chest pain, headache, dizziness, fever, chills, cough, nausea, vomiting, diarrhea, constipation, dysuria, frequency, urgency and hematuria. In the ER he was placed on a 100% nonrebreather and saturations improved. He remained hemodynamically stable. He received a dose of IV Azithromycin 500 mg and IV Vancomycin 1 gm for PNA. Cardiology was consulted and agreed with IV lasix 40 mg. patient then detoriated and was intubated - History Source History Provided By: Medical Record Limitations to Obtaining History: Clinical Condition - Past Medical History Cardio/Vascular: Yes: AFIB, CHF, HTN Pulmonary: Yes: COPD, Previously Intubated, Sleep Apnea (uses mouth guard/jaw advancer, "CPAP didn't work/fit") Gastrointestinal: Yes: GERD - Past Surgical History Past Surgical History: Yes: None - Alcohol/Substance Use Hx Alcohol Use: Yes History of Substance Use: reports: None - Smoking History Smoking history: Current every day smoker Have you smoked in the past 12 months: Yes Aproximately how many cigarettes per day: 20 If you are a former smoker, when did you quit?: 2 months ago - Social History Usual Living Arrangement: Alone ADL: Independent Home Medications - Allergies Allergies/Adverse Reactions: Allergies Allergy/AdvReac Type Severity Reaction Status Date / Time No Known Allergies Allergy Verified 11/06/18 18:58 - Home Medications Home Medications: Ambulatory Orders Ascorbate Calcium [Vitamin C] 1,000 mg PO DAILY 10/05/16 [place]-3/Dha/Epa/Fish Oil [[place] 3 500 Softgel] 350 mg PO DAILY 10/05/16 Apixaban [Eliquis -] 5 mg PO BID #30 tablet 10/23/16 Multivit-Min/Folic/Vit K/Lycop [Men's Multivitamin Caplet] 1 each PO DAILY 11/17/17 Lisinopril [Prinivil] 2.5 mg PO DAILY #30 tablet 11/12/18 Metoprolol Tartrate [Lopressor -] 50 mg PO BID tablet 11/12/18 Pantoprazole Sodium [Protonix -] 40 mg PO DAILY #30 tablet.ec 11/12/18 Fluticasone/Vilanterol [Breo Ellipta 100-25 Mcg INH] 1 inhaler IH DAILY 02/08/19 Hydrochlorothiazide 1 cap PO DAILY 02/08/19 Review of Systems Unable to obtain ROS, reason: unable to obtain Physical Exam Vital Signs: Vital Signs Temperature 97.9 F 12/18/19 06:00 Pulse Rate 56 L 12/18/19 08:34 Respiratory Rate 26 H 12/18/19 08:34 Blood Pressure 116/76 12/18/19 06:00 O2 Sat by Pulse Oximetry (%) 92 L 12/18/19 08:34 Constitutional: Yes: Other Neck: Yes: Supple, Trachea Midline Cardiovascular: Yes: Pulse Irregular Respiratory: Yes: Intubated, Mechanically Ventilated Gastrointestinal: Yes: Normal Bowel Sounds, Soft, Other (ng tube in place) Renal/: Yes: Other (left sided hydrocele) Musculoskeletal: Yes: WNL Extremities: Yes: WNL Labs: CBC, BMP 12/18/19 06:00 12/18/19 06:00 Imaging - Results Chest X-ray: Report Reviewed, Image Reviewed Ultrasound: Report Reviewed, Image Reviewed Assessment/Plan 64 year old male with a past medical history of HTN, HLD, JUANA (not using CPAP), COPD, GERD, systolic congestive heart failure, paroxysmal atrial fibrillation (on Eliquis, s/p cardioversion 11/2016) who presented with 3 weeks of gradual onset anasarca, scrotal swelling and mild shortness of breath worse on exertion. He as found to have a PNA, on clinical exam signs of fluid overload, ?bilateral lower extremity cellulitis and bilateral hydrocele. 1. Acute Respiratory Failure 2. Fluid Overload/ 3.Bilateral Lower Extremity Cellulitis 4. Hydrocele 5. Hypertension 6. Atrial Fibrillation 7. Elevated Troponin 8. Rule Out COVID 9 pna plan i am going to change abx to cefep[fercho monitor leg swelling await for all reports rest as per icu diuresis as needed vent mgmt cc 40 min
--- NOTE | 2019-12-18 11:53 | PN ---
Progress Note, Physician History of Present Illness: 64 year old male with a past medical history of HTN, HLD, JUANA (not using CPAP), COPD, GERD, systolic congestive heart failure, paroxysmal atrial fibrillation (on Eliquis, s/p cardioversion 11/2016) who presented with 3 weeks of gradual onset anasarca, scrotal swelling and mild shortness of breath worse on exertion. CXR s/f diffused bilat opacities with c/f PNA +/-fluid overload, ?bilateral l ower extremity cellulitis and bilateral hydrocele, and respiratory acidosis is admitted for Acute hypercapneic respiratory failure and Acute CHF exacerbation, intubated for progressive hypercarbic respiratory failure, decreased mental status on BiPAP, remains hemodynamically stable on ventilator. - Current Medication List Current Medications: Active Medications Apixaban (Eliquis -) 5 mg PO BID [facility] Last Admin: 12/18/19 10:19 Dose: 5 mg Documented by: Ascorbic Acid (Vitamin C -) 1,000 mg PO DAILY [facility] Last Admin: 12/18/19 10:19 Dose: 1,000 mg Documented by: Budesonide/Formoterol Fumarate (Symbicort 80/4.5mcg -) 2 puff IH BID [facility] Last Admin: 12/18/19 10:19 Dose: Not Given Documented by: Furosemide (Lasix Injection -) 80 mg IVPUSH BID@0600,1400 [facility] Last Admin: 12/18/19 06:23 Dose: 80 mg Documented by: Hydrochlorothiazide (Hctz -) 12.5 mg PO DAILY [facility] Last Admin: 12/18/19 10:19 Dose: 12.5 mg Documented by: Propofol (Diprivan -) 1,000,000 mcg in 100 mls @ 3.266 mls/hr IVPB TITR [facility]; Protocol Last Titration: 12/18/19 10:21 Dose: 40 mcg/kg/min, 26.127 mls/hr Documented by: Cefepime HCl 1 gm/ Dextrose 100 mls @ 100 mls/hr IVPB Q8H-IV [facility]; Protocol Multivitamins/Minerals/Vitamin C (Tab-A-Vit -) 1 tab PO DAILY [facility] Last Admin: 12/18/19 10:19 Dose: 1 tab Documented by: Pantoprazole Sodium (Protonix Iv) 40 mg IVPUSH DAILY [facility] - Objective Vital Signs: Vital Signs Temperature 98 F 12/18/19 10:00 Pulse Rate 66 12/18/19 10:00 Respiratory Rate 26 H 12/18/19 11:24 Blood Pressure 123/89 12/18/19 10:00 O2 Sat by Pulse Oximetry (%) 95 12/18/19 11:28 Constitutional: Yes: No Distress, Calm Neck: Yes: Supple Cardiovascular: Yes: Regular Rate and Rhythm Respiratory: Yes: Intubated, Mechanically Ventilated, Rhonchi Gastrointestinal: Yes: Soft, Hypoactive Bowel Sounds Genitourinary: Yes: Hilario Present Edema: Yes Edema: LLE: 2+, RLE: 2+ Labs: CBC, BMP 12/18/19 06:00 12/18/19 06:00 INR, PTT INR 1.34 (0.83-1.09) H 12/16/19 18:40 - ....Imaging Chest X-ray: Report Reviewed (Small-mod right effusion) EKG: Report Reviewed (Tele: SR) Problem List - Problems (1) Congestive heart failure (CHF) Code(s): I50.9 - HEART FAILURE, UNSPECIFIED Qualifiers: Heart failure type: diastolic Heart failure chronicity: acute on chronic Qualified Code(s): I50.33 - Acute on chronic diastolic (congestive) heart failure (2) Pneumonia Code(s): J18.9 - PNEUMONIA, UNSPECIFIED ORGANISM Qualifiers: Pneumonia type: due to unspecified organism Laterality: right Lung location: lower lobe of lung Qualified Code(s): J18.9 - Pneumonia, unspecified organism (3) Acute on chronic diastolic (congestive) heart failure Code(s): I50.33 - ACUTE ON CHRONIC DIASTOLIC (CONGESTIVE) HEART FAILURE (4) Acute respiratory failure with hypoxia and hypercarbia Code(s): J96.01 - ACUTE RESPIRATORY FAILURE WITH HYPOXIA; J96.02 - ACUTE RESPIRATORY FAILURE WITH HYPERCAPNIA (5) Atrial fibrillation Code(s): I48.91 - UNSPECIFIED ATRIAL FIBRILLATION Qualifiers: Atrial fibrillation type: paroxysmal Qualified Code(s): I48.0 - Paroxysmal atrial fibrillation (6) COPD (chronic obstructive pulmonary disease) Code(s): J44.9 - CHRONIC OBSTRUCTIVE PULMONARY DISEASE, UNSPECIFIED Qualifiers: COPD type: unspecified COPD Qualified Code(s): J44.9 - Chronic obstructive pulmonary disease, unspecified (7) Hypertension Code(s): I10 - ESSENTIAL (PRIMARY) HYPERTENSION Qualifiers: Hypertension type: essential hypertension Qualified Code(s): I10 - Essential (primary) hypertension (8) Lymphedema of both lower extremities Code(s): I89.0 - LYMPHEDEMA, NOT ELSEWHERE CLASSIFIED (9) Pleural effusion Code(s): J90 - PLEURAL EFFUSION, NOT ELSEWHERE CLASSIFIED Assessment/Plan 10/26/2017 Normal LV size with mild LVH, normal LV fxn, normal RV size and fxn, mild LAE, mild MR, mild-mod TR, mild OR, RVSP 43 mmHg 11/19/2016 [place] Myoview: Apical ischemia, LVEF 45-52% 10/06/2016 Echocardiography revealed mild to moderate LV systolic dysfunction, moderate TR, RVSP of 30-40 mmH 1. Acute on chronic Hypoxic and Hypercapneic Respiratory Failure 2. Acute on chronic LV Diastolic Heart Failure with pleural effusion 3. R/o PNA 4. Paroxysmal atrial fibrillation with periods of rapid ventricular response post DCCV in SR, [id number] score of 2 5. Obstructive Sleep Apnea/Obesity Hypoventilation Syndrome with dental appliance 6. HTN/HCVD 7. Hypercholesterolemia 8. CAD angina pectoris 9. Bilateral cellulitis with h/o abscess s/p debridement 10. Bilateral hydrocele Plan: 1. Vent management per ABG, sedation for vent synchrony, f/u COVID 19, empiric abx per C&S, procalcitonin, DVT and GI prophylaxis 2. IV diuresis with monitor diuretic response, renal fxn and electrolytes 3. Resume Lopressor 25 mg BID, Lisinopril 2.5 mg QD and Eliquis 5 bid as hemodynamics tolerate 4. Empiric abx changed to cefepime per ID
--- NOTE | 2019-12-18 12:54 | PN ---
Progress Note (short form) - Note Progress Note: PULM/CCM Pt seen & examined in the ICU. Remains intubated & sedated. Weight 109 --> 127 --> 121 on 80 BID Lasix. CURRENT VENT: AC/VC/26/450/100%/+5 Pplat = 23 Active Medications Apixaban (Eliquis -) 5 mg PO BID [facility] Last Admin: 12/18/19 10:19 Dose: 5 mg Documented by: Ascorbic Acid (Vitamin C -) 1,000 mg PO DAILY [facility] Last Admin: 12/18/19 10:19 Dose: 1,000 mg Documented by: Budesonide/Formoterol Fumarate (Symbicort 80/4.5mcg -) 2 puff IH BID [facility] Last Admin: 12/18/19 10:19 Dose: Not Given Documented by: Furosemide (Lasix Injection -) 80 mg IVPUSH BID@0600,1400 [facility] Last Admin: 12/18/19 06:23 Dose: 80 mg Documented by: Hydrochlorothiazide (Hctz -) 12.5 mg PO DAILY [facility] Last Admin: 12/18/19 10:19 Dose: 12.5 mg Documented by: Propofol (Diprivan -) 1,000,000 mcg in 100 mls @ 3.266 mls/hr IVPB TITR [facility]; Protocol Last Titration: 12/18/19 10:21 Dose: 40 mcg/kg/min, 26.127 mls/hr Documented by: Cefepime HCl 1 gm/ Dextrose 100 mls @ 100 mls/hr IVPB Q8H-IV [facility]; Protocol Multivitamins/Minerals/Vitamin C (Tab-A-Vit -) 1 tab PO DAILY [facility] Last Admin: 12/18/19 10:19 Dose: 1 tab Documented by: Pantoprazole Sodium (Protonix Iv) 40 mg IVPUSH DAILY [facility] Vital Signs Period Temp Pulse Resp BP Sys/Clements Pulse Ox Last 24 Hr 97.9 F-98.3 F 53-68 21-26 107-131/63-91 92-96 Intake & Output 12/15/19 12/16/19 12/17/19 12/18/19 23:59 23:59 23:59 23:59 Intake Total 524 660 Output Total 1290 750 Balance -5826 -90 Weight 108.862 kg 126.552 kg 120.797 kg CBC, BMP 06/14/20 06:00 12/18/19 06:00 ABG Results ABG pH 7.41 (7.35-7.45) 12/17/19 11:15 ABG pCO2 at Pt Temp 62.0 mmHg (35-45) H 12/17/19 11:15 ABG pO2 at Pt Temp 73.7 mmHg (80-100) L 12/17/19 11:15 ABG HCO3 39.0 mmol/L (22-27) H 12/17/19 11:15 ABG O2 Sat (Measured) 94.6 % (95-98) L 12/17/19 11:15 ABG O2 Content No Result Required. 12/17/19 11:15 ABG Base Excess 11.2 mmol/L (-2-2) H 12/17/19 11:15 COVID: PENDING Microbiology 12/16/19 20:13 Blood - Peripheral Venous Blood Culture - Preliminary NO GROWTH OBTAINED AFTER 24 HOURS, INCUBATION TO CONTINUE FOR 4 DAYS. 12/16/19 19:50 Blood - Peripheral Venous Blood Culture - Preliminary NO GROWTH OBTAINED AFTER 24 HOURS, INCUBATION TO CONTINUE FOR 4 DAYS. RECENT STUDIES TO NOTE: CXR 12/16: Compared to prior chest x-ray done earlier on the same date. A nasogastric tube is present with its distal end in the stomach. Endotracheal tube tip is in satisfactory position. Bilateral airspace disease mainly in the right mid and lower lung again seen ASSESS: This is a 64 year old man with a past medical history of HTN, HLD, JUANA (not using CPAP), COPD, GERD, systolic congestive heart failure, paroxysmal atrial fibrillation (on Eliquis, s/p cardioversion 11/2016) transferred to ICU s/p intub ation for hypercarbic/hypoxic respiratory failure m/l 2/2 acute CHF exacerbation +/- CAP. PLAN: -LTVV for plat <30 -Maintain O2 sat >92% -Aggressive diuresis as vannesa (Convert BID Lasix --> Lasix gtt & add Zaroxolyn) -ABG and CXR -Sedation for vent synchrony -Maintain MAP>65 -Cont Lopressor as BP vannesa d/t hx Afib. -Monitor BNP -Monitor UOP and BMP -Replete electrolytes -Cont empiric antibiotics for CAP coverage -F/u cultures and COVID swab -Maintain isolation until COVID r/o -NGT -NPO for now -cont Eliquis -GI proph -Bowel regimen [facility] MARTINP-[facility] ICU PULM/CCM [id number]
[2019-12-18] MEDS ORDERED: METOLAZONE 2.5 MG TABLET (FP) NGT ONE (13:03)
[2019-12-18] MEDS ORDERED: DEXTROSE 5%-WATER 100 ML IVPB ONE ×2 (13:09→16:10)
[2019-12-18] MEDS ORDERED: CEFEPIME HCL 1 GM VIAL (RESTRICTED TO ID) ONE ×2 (13:09→16:10)
[2019-12-18] MEDS: CEFEPIME 1 GM in DEXTROSE 5%-WATER 100 ML IVPB SCH ×2 (13:12→18:32)
[2019-12-18] MEDS ORDERED: FUROSEMIDE INJECTION 100 MG in DEXTROSE 5%-WATER - 90 ML IVPB SCH (13:15)
--- NOTE | 2019-12-18 15:06 | EKG ---
Test Reason : Blood Pressure : / mmHG Vent. Rate : 065 BPM Atrial Rate : 065 BPM P-R Int : 176 ms QRS Dur : 088 ms QT Int : 428 ms P-R-T Axes : 032 099 040 degrees QTc Int : 445 ms NORMAL SINUS RHYTHM POSSIBLE LEFT ATRIAL ENLARGEMENT RIGHTWARD AXIS SEPTAL INFARCT (CITED ON OR BEFORE 16-DEC-2019) T WAVE ABNORMALITY, CONSIDER ANTEROLATERAL ISCHEMIA ABNORMAL ECG WHEN COMPARED WITH ECG OF 16-DEC-2019 18:16, T WAVE INVERSION MORE EVIDENT IN ANTERIOR LEADS Confirmed by Gayle Gonzales ([id number]) on 12/18/2019 3:06:30 PM Referred By: Barb AMADOR Confirmed By:Gayle Gonzales
[2019-12-18] MEDS ORDERED: PT OWN MED DRAWER 7, Y5N ONE (21:32)
[2019-12-18] MEDS ORDERED: MIDAZOLAM IN 0.9 % SOD.CHLORID 1 MG/1 ML PLAST..BAG ONE (21:53)
[2019-12-19] MEDS ORDERED: CEFEPIME HCL 1 GM VIAL (RESTRICTED TO ID) ONE ×3 (00:19→14:47)
[2019-12-19] MEDS ORDERED: DEXTROSE 5%-WATER 100 ML IVPB ONE ×3 (00:19→14:47)
[2019-12-19] MEDS: MIDAZOLAM IN 0.9 % SOD.CHLORID 100 MG/100 ML PLAST..BAG IVPB SCH (00:38)
[2019-12-19] MEDS: CEFEPIME 1 GM in DEXTROSE 5%-WATER 100 ML IVPB SCH ×3 (02:22→17:15)
[2019-12-19 07:50] LABS: BLOOD UREA NITROGEN 15.2 mg/dL (7-18); CALCIUM 8.3 mg/dL (8.5-10.1); CREATININE 1.1 mg/dL (0.55-1.3); MAGNESIUM 1.6 mg/dL (1.8-2.4); PHOSPHOROUS 4.6 mg/dL (2.5-4.9); POTASSIUM 3.9 mmol/L (3.5-5.1)
[2019-12-19] MEDS ORDERED: PT OWN MED DRAWER 7, Y5N ONE (07:50)
[2019-12-19] MEDS ORDERED: MAGNESIUM SULF 50% (8.12 MEQ/2 ML-1 GM VIAL) IVPB ONE (08:00)
[2019-12-19 08:25] LABS: ARTERIAL BLOOD GAS PCO2 49.5 mmHg (35-45); ARTERIAL BLOOD GAS PO2 74.1 mmHg (80-100); ARTERIAL BLOOD GAS pH 7.53 (7.35-7.45)
[2019-12-19 08:26] LABS: ALLENS TEST POSITIVE; ARTERIAL BLD GAS O2 SATURATION 96.1 % (95-98); ARTERIAL BLOOD GAS BASE EXCESS 15.2 mmol/L (-2-2)
[2019-12-19 08:50] LABS: HEMATOCRIT 60.4 % (35.4-49); MCHC 29.7 g/dl (32.0-35.9); MEAN CELL VOLUME 77.2 fl (80-96); MEAN PLT VOLUME 8.8 fl (7.5-11.1); PLATELET COUNT 113 K/MM3 (134-434); WHITE BLOOD COUNT 8.6 K/mm3 (4.0-10.0)
[2019-12-19 08:53] LABS: RBC 7.82 M/mm3 (4.00-5.60)
[2019-12-19] MEDS: PROPOFOL 1,000,000 MCG/100 ML VIAL IVPB SCH ×2 (10:24→10:25)
[2019-12-19] MEDS: APIXABAN 5 MG TABLET PO SCH ×2 (10:25→21:41)
[2019-12-19] MEDS: ASCORBIC ACID 500 MG TABLET (FP) PO SCH (10:25)
[2019-12-19] MEDS: MULTIVITAMINS (DAILY MVI) TABLET (FP) PO SCH (10:25)
[2019-12-19] MEDS: HYDROCHLOROTHIAZIDE 12.5 MG CAPSULE (FP) PO SCH (10:26)
[2019-12-19] MEDS: BUDESONIDE/FORMETEROL FUMARATE 80/4.5 mcg INHALER IH SCH ×2 (10:27→21:42)
[2019-12-19] MEDS: PANTOPRAZOLE SODIUM 40 MG VIAL IVPUSH SCH (10:27)
[2019-12-19] MEDS: METOLAZONE 2.5 MG TABLET (FP) PO SCH (10:31)
--- NOTE | 2019-12-19 10:37 | PN ---
Progress Note, Physician History of Present Illness: 64 year old male with a past medical history of HTN, HLD, JUANA (not using CPAP), COPD, GERD, systolic congestive heart failure, paroxysmal atrial fibrillation (on Eliquis, s/p cardioversion 11/2016) who presented with 3 weeks of gradual onset anasarca, scrotal swelling and mild shortness of breath worse on exertion. CXR s/f diffused bilat opacities with c/f PNA +/-fluid overload, ?bilateral l ower extremity cellulitis and bilateral hydrocele, and respiratory acidosis is admitted for Acute hypercapneic respiratory failure and Acute CHF exacerbation, intubated for progressive hypercarbic respiratory failure, decreased mental status on BiPAP, remains hemodynamically stable on ventilator. - Current Medication List Current Medications: Active Medications Apixaban (Eliquis -) 5 mg PO BID LYNETTE Last Admin: 12/19/19 10:25 Dose: 5 mg Documented by: Ascorbic Acid (Vitamin C -) 1,000 mg PO DAILY LYNETTE Last Admin: 12/19/19 10:25 Dose: 1,000 mg Documented by: Budesonide/Formoterol Fumarate (Symbicort 80/4.5mcg -) 2 puff IH BID LYNETTE Last Admin: 12/19/19 10:27 Dose: Not Given Documented by: Hydrochlorothiazide (Hctz -) 12.5 mg PO DAILY LYNETTE Last Admin: 12/19/19 10:26 Dose: Not Given Documented by: Propofol (Diprivan -) 1,000,000 mcg in 100 mls @ 3.266 mls/hr IVPB TITR LYNETTE; Protocol Last Admin: 12/19/19 10:25 Dose: Not Given Documented by: Cefepime HCl 1 gm/ Dextrose 100 mls @ 100 mls/hr IVPB Q8H-IV LYNETTE; Protocol Last Admin: 12/19/19 10:26 Dose: 100 mls/hr Documented by: Furosemide 100 mg/ Dextrose 100 mls @ 10 mls/hr IVPB TITR LYNETTE Last Admin: 12/18/19 15:25 Dose: 10 mg/hr, 10 mls/hr Documented by: Midazolam HCl (Midazolam 100mg/100ml-0.9%Nacl) 100 mg in 100 mls @ 10 mls/hr IVPB TITR LYNETTE; Protocol Stop: 12/21/19 23:44 Last Titration: 12/19/19 07:01 Dose: 5 mg/hr, 5 mls/hr Documented by: Metolazone (Zaroxolyn -) 7.5 mg PO DAILY [facility] Last Admin: 12/19/19 10:31 Dose: 7.5 mg Documented by: Multivitamins/Minerals/Vitamin C (Tab-A-Vit -) 1 tab PO DAILY [facility] Last Admin: 12/19/19 10:25 Dose: 1 tab Documented by: Pantoprazole Sodium (Protonix Iv) 40 mg IVPUSH DAILY [facility] Last Admin: 12/19/19 10:27 Dose: 40 mg Documented by: - Objective Vital Signs: Vital Signs Temperature 97.3 F L 12/18/19 16:00 Pulse Rate 68 12/19/19 09:00 Respiratory Rate 26 H 12/19/19 09:32 Blood Pressure 110/68 12/19/19 09:00 O2 Sat by Pulse Oximetry (%) 95 12/19/19 09:32 Constitutional: Yes: No Distress, Calm Neck: Yes: Supple Cardiovascular: Yes: Regular Rate and Rhythm Respiratory: Yes: Intubated, Mechanically Ventilated Gastrointestinal: Yes: Soft, Hypoactive Bowel Sounds Genitourinary: Yes: Hilario Present Edema: Yes Labs: CBC, BMP 12/19/19 06:00 12/19/19 06:00 INR, PTT INR 1.34 (0.83-1.09) H 12/16/19 18:40 - ....Imaging Chest X-ray: Report Reviewed (Bilateral infiltrates and small right effusion unchanged from previous) EKG: Report Reviewed (Tele: NSR) Problem List - Problems (1) Congestive heart failure (CHF) Code(s): I50.9 - HEART FAILURE, UNSPECIFIED Qualifiers: Heart failure type: diastolic Heart failure chronicity: acute on chronic Qualified Code(s): I50.33 - Acute on chronic diastolic (congestive) heart failure (2) Pneumonia Code(s): J18.9 - PNEUMONIA, UNSPECIFIED ORGANISM Qualifiers: Pneumonia type: due to unspecified organism Laterality: right Lung location: lower lobe of lung Qualified Code(s): J18.9 - Pneumonia, unspecified organism (3) Acute on chronic diastolic (congestive) heart failure Code(s): I50.33 - ACUTE ON CHRONIC DIASTOLIC (CONGESTIVE) HEART FAILURE (4) Acute respiratory failure with hypoxia and hypercarbia Code(s): J96.01 - ACUTE RESPIRATORY FAILURE WITH HYPOXIA; J96.02 - ACUTE RESPIRATORY FAILURE WITH HYPERCAPNIA (5) Atrial fibrillation Code(s): I48.91 - UNSPECIFIED ATRIAL FIBRILLATION Qualifiers: Atrial fibrillation type: paroxysmal Qualified Code(s): I48.0 - Paroxysmal atrial fibrillation (6) COPD (chronic obstructive pulmonary disease) Code(s): J44.9 - CHRONIC OBSTRUCTIVE PULMONARY DISEASE, UNSPECIFIED Qualifiers: COPD type: unspecified COPD Qualified Code(s): J44.9 - Chronic obstructive pulmonary disease, unspecified (7) Hypertension Code(s): I10 - ESSENTIAL (PRIMARY) HYPERTENSION Qualifiers: Hypertension type: essential hypertension Qualified Code(s): I10 - Essential (primary) hypertension (8) Lymphedema of both lower extremities Code(s): I89.0 - LYMPHEDEMA, NOT ELSEWHERE CLASSIFIED (9) Pleural effusion Code(s): J90 - PLEURAL EFFUSION, NOT ELSEWHERE CLASSIFIED Assessment/Plan 10/26/2017 Normal LV size with mild LVH, normal LV fxn, normal RV size and fxn, mild LAE, mild MR, mild-mod TR, mild KS, RVSP 43 mmHg 11/19/2016 Lexiscan Myoview: Apical ischemia, LVEF 45-52% 10/06/2016 Echocardiography revealed mild to moderate LV systolic dysfunction, moderate TR, RVSP of 30-40 mmH 1. Acute on chronic Hypoxic and Hypercapneic Respiratory Failure 2. Acute on chronic LV Diastolic Heart Failure with pleural effusion 3. R/o PNA 4. Paroxysmal atrial fibrillation with periods of rapid ventricular response post DCCV in SR, [id number] score of 2 5. Obstructive Sleep Apnea/Obesity Hypoventilation Syndrome with dental appliance 6. HTN/HCVD 7. Hypercholesterolemia 8. CAD angina pectoris 9. Bilateral cellulitis with h/o abscess s/p debridement 10. Bilateral hydrocele Plan: 1. Vent management per ABG, sedation for vent synchrony, COVID 19 negative, empiric abx per C&S, procalcitonin, DVT and GI prophylaxis 2. Lasix gtt @ 10 with Zaroxolyn, d/c HCTZ with monitor diuretic response, renal fxn and electrolytes 3. Resume Lopressor 25 mg BID, Lisinopril 2.5 mg QD and Eliquis 5 bid once hemodynamics tolerate 4. Empiric abx changed to cefepime per ID 5. Enteral feeds
--- NOTE | 2019-12-19 11:30 | PN ---
Progress Note, Physician History of Present Illness: continues to be intubated on lasix drip - Current Medication List Current Medications: Active Medications Apixaban (Eliquis -) 5 mg PO BID LYNETTE Last Admin: 12/19/19 10:25 Dose: 5 mg Documented by: Ascorbic Acid (Vitamin C -) 1,000 mg PO DAILY [facility]NETTE Last Admin: 12/19/19 10:25 Dose: 1,000 mg Documented by: Budesonide/Formoterol Fumarate (Symbicort 80/4.5mcg -) 2 puff IH BID LYNETTE Last Admin: 12/19/19 10:27 Dose: Not Given Documented by: Propofol (Diprivan -) 1,000,000 mcg in 100 mls @ 3.266 mls/hr IVPB TITR LYNETTE; Protocol Last Admin: 12/19/19 10:25 Dose: Not Given Documented by: Cefepime HCl 1 gm/ Dextrose 100 mls @ 100 mls/hr IVPB Q8H-IV LYNETTE; Protocol Last Admin: 12/19/19 10:26 Dose: 100 mls/hr Documented by: Furosemide 100 mg/ Dextrose 100 mls @ 10 mls/hr IVPB TITR LYNETTE Last Admin: 12/18/19 15:25 Dose: 10 mg/hr, 10 mls/hr Documented by: Midazolam HCl (Midazolam 100mg/100ml-0.9%Nacl) 100 mg in 100 mls @ 10 mls/hr I VPB TITR LYNETTE; Protocol Stop: 12/21/19 23:44 Last Titration: 12/19/19 07:01 Dose: 5 mg/hr, 5 mls/hr Documented by: Metolazone (Zaroxolyn -) 7.5 mg PO DAILY [facility] Last Admin: 12/19/19 10:31 Dose: 7.5 mg Documented by: Multivitamins/Minerals/Vitamin C (Tab-A-Vit -) 1 tab PO DAILY [facility]NETTE Last Admin: 12/19/19 10:25 Dose: 1 tab Documented by: Pantoprazole Sodium (Protonix Iv) 40 mg IVPUSH DAILY [facility] Last Admin: 12/19/19 10:27 Dose: 40 mg Documented by: - Objective Vital Signs: Vital Signs Temperature 97.3 F L 12/18/19 16:00 Pulse Rate 68 12/19/19 09:00 Respiratory Rate 26 H 12/19/19 09:32 Blood Pressure 110/68 12/19/19 09:00 O2 Sat by Pulse Oximetry (%) 95 12/19/19 09:32 Constitutional: Yes: No Distress, Calm Cardiovascular: Yes: S1, S2 Respiratory: Yes: Intubated, Mechanically Ventilated Gastrointestinal: Yes: Normal Bowel Sounds, Soft Musculoskeletal: Yes: WNL Extremities: Yes: WNL Labs: CBC, BMP 12/19/19 06:00 12/19/19 06:00 INR, PTT INR 1.34 (0.83-1.09) H 12/16/19 18:40 - ....Imaging Chest X-ray: Report Reviewed, Image Reviewed Assessment/Plan 64 year old male with a past medical history of HTN, HLD, JUANA (not using CPAP), COPD, GERD, systolic congestive heart failure, paroxysmal atrial fibrillation (on Eliquis, s/p cardioversion 11/2016) who presented with 3 weeks of gradual onset anasarca, scrotal swelling and mild shortness of breath worse on exertion. He as found to have a PNA, on clinical exam signs of fluid overload, ?bilateral lower extremity cellulitis and bilateral hydrocele. 1. Acute Respiratory Failure 2. Fluid Overload/ 3.Bilateral Lower Extremity Cellulitis 4. Hydrocele 5. Hypertension 6. Atrial Fibrillation 7. Elevated Troponin 8. Rule Out COVID 9 pna plan cefepime monitor leg swelling await for all reports rest as per icu diuresis as needed vent mgmt cc 40 min
--- NOTE | 2019-12-19 12:05 | PN ---
Physical Exam: SUBJECTIVE: Patient seen and examined. Afebrile and asymptomatic. No acute overnight events. OBJECTIVE: Vital Signs Period Temp Pulse Resp BP Sys/Clements Pulse Ox Last 24 Hr 97.3 F 58-68 20-26 108-121/57-79 92-97 GENERAL: sedated, vented EYES: Pupils equal, round and reactive to light, extraocular movements intact, sclera anicteric, conjunctiva clear. No lid lag. EARS, NOSE, THROAT: dry, mucous membranes. LUNGS: Breath sounds equal, clear to auscultation bilaterally. No wheezes, and no crackles. on Vent HEART: Regular rate and rhythm, normal S1 and S2 without murmur, rub or gallop. ABDOMEN: Soft, nontender, not distended, normoactive bowel sounds, no guarding, no rebound, no masses. UPPER EXTREMITIES: 2+ pulses, warm, well-perfused. No cyanosis. No peripheral edema. LOWER EXTREMITIES: 2+ pulses, warm, well-perfused. No calf tenderness. No peripheral edema. SKIN: Warm, dry, normal turgor, no rashes or lesions noted. Laboratory Results - last 24 hr 12/16/19 12/19/19 12/19/19 21:25 06:00 06:00 WBC 8.6 RBC 7.82 H Hgb 18.0 H Hct 60.4 H MCV 77.2 L MCH 23.0 L MCHC 29.7 L RDW 24.0 H Anticoagulation Therapy Puncture Site ABG pH ABG pCO2 at Pt Temp ABG pO2 at Pt Temp ABG HCO3 ABG O2 Sat (Measured) ABG O2 Content ABG Base Excess Ye Test Patient On Oxygen O2 Delivery Device Oxygen Flow Rate Vent Mode Vent Rate Mechanical Rate PEEP Pressure Support Vent Sodium 141 Potassium 3.9 Chloride 93 L Carbon Dioxide 40 H Anion Gap 9 BUN 15.2 Creatinine 1.1 Est GFR (CKD-EPI)AfAm 80.65 Est GFR (CKD-EPI)NonAf 69.58 Random Glucose 96 Calcium 8.3 L Phosphorus 4.6 Magnesium 1.6 L B-Natriuretic Peptide 298.0 H COVID-19 (RAJENDRA) Not detected 12/19/19 08:05 WBC RBC Hgb Hct MCV MCH MCHC RDW Anticoagulation Therapy No Result Required. Puncture Site Left radial ABG pH 7.53 H ABG pCO2 at Pt Temp 49.5 H ABG pO2 at Pt Temp 74.1 L ABG HCO3 40.8 H ABG O2 Sat (Measured) 96.1 ABG O2 Content No Result Required. ABG Base Excess 15.2 H Ye Test Positive Patient On Oxygen Yes O2 Delivery Device Vent Oxygen Flow Rate 100% Vent Mode A/c Vent Rate 26 Mechanical Rate Yes PEEP 7.0 Pressure Support Vent 450 Sodium Potassium Chloride Carbon Dioxide Anion Gap BUN Creatinine Est GFR (CKD-EPI)AfAm Est GFR (CKD-EPI)NonAf Random Glucose Calcium Phosphorus Magnesium B-Natriuretic Peptide COVID-19 (RAJENDRA) Active Medications Generic Name Dose Route Start Last Admin Trade Name Freq PRN Reason Stop Dose Admin Apixaban 5 mg 12/16/19 22:00 12/19/19 10:25 Eliquis - PO 5 mg BID LYNETTE Administration Ascorbic Acid 1,000 mg 12/17/19 10:00 12/19/19 10:25 Vitamin C - PO 1,000 mg DAILY LYNETTE Administration Budesonide/Formoterol Fumarate 2 puff 12/16/19 22:00 12/19/19 10:27 Symbicort 80/4.5mcg - IH Not Given BID LYNETTE Propofol 1,000,000 mcg in 100 mls @ 3.266 mls/hr 12/17/19 04:30 12/19/19 10:25 Diprivan - IVPB Not Given TITR LYNETTE Protocol 5 MCG/KG/MIN Cefepime HCl 1 gm/ Dextrose 100 mls @ 100 mls/hr 12/18/19 11:15 12/19/19 10:26 IVPB 100 mls/hr Q8H-IV LYNETTE Administration Protocol Furosemide 100 mg/ Dextrose 100 mls @ 10 mls/hr 12/18/19 13:15 12/18/19 15:25 IVPB 10 mg/hr TITR LYNETTE 10 mls/hr Administration 10 MG/HR Midazolam HCl 100 mg in 100 mls @ 10 mls/hr 12/18/19 23:45 12/19/19 07:01 Midazolam 100mg/100ml-0.9%Nacl IVPB 12/21/19 23:44 5 mg/hr TITR LYNETTE 5 mls/hr Titration Protocol 10 MG/HR Metolazone 7.5 mg 12/19/19 10:00 12/19/19 10:31 Zaroxolyn - PO 7.5 mg DAILY LYNETTE Administration Metoprolol Tartrate 25 mg 12/19/19 12:00 Lopressor - PO BID LYNETTE Multivitamins/Minerals/Vitamin C 1 tab 12/17/19 10:00 12/19/19 10:25 Tab-A-Vit - PO 1 tab DAILY LYNETTE Administration Pantoprazole Sodium 40 mg 12/19/19 10:00 12/19/19 10:27 Protonix Iv IVPUSH 40 mg DAILY LYNETTE Administration ASSESSMENT/PLAN: 64 year old male with a past medical history of HTN, HLD, JUANA (not using CPAP), COPD, GERD, systolic congestive heart failure, paroxysmal atrial fibrillation (on Eliquis, s/p cardioversion 11/2016) who presented with 3 weeks of gradual onset anasarca, scrotal swelling and mild shortness of breath worse on exertion, found to have right lobe PNA, fluid overload, bilateral lower extremity cellulitis and bilateral hydrocele, and respiratory acidosis is admitted for Acute hypercapneic respiratory failure and Acute CHF exacerbation #Neuro Pt sedated and vented minimally responsive, difficult to arouse CO2 narcosis- falling asleep during examination Propofol 15, versed 5 #CV Fluid Overload 2/2 sCHF exacerbation, CXR- with small right and left pleural effusion troponin 0.10> .09 monitor renal studies, electrolytes, strict I&O's and daily weights Clinical signs of severe volume overload- anasarca, b/l LE edema, crackles on b/l lungs Cardiology following on lisinopril and metoprolol Can give lasix pushes #Pulm Acute hypercapneic resp failure 2/2 to Community acquired pneumonia vs COPD exacerbation CXR- right mid and lower lung and left lung base pneumonia ABG showed 7.53/49/74/40 vented #ID Bilateral Lower Extremity Cellulitis vanc d/rodriguez Cefepime D2 ID consulted #Renal stable renal function appropriate cont diuresis aggressive #GI Anasarca cont diuresis #Heme monitor #DVT ppx On eliquis #GI ppx protonix FEN monitor lytes Fluid restrictions NPO, can start feeds Aspiration risk Dispo: cont abx, monitor I&Os, cont lasix, start feeds tomorrow Attempted to notify and contact pt's mother/ as per chart, unable to reach. Will continue trying Visit type - Emergency Visit Emergency Visit: Yes ED Registration Date: 12/16/19 Care time: The patient presented to the Emergency Department on the above date and was hospitalized for further evaluation of their emergent condition. - New Patient This patient is new to me today: Yes Date on this admission: 12/20/19 - Critical Care Critical Care patient: No - Discharge Referral Referred to [facility] Med P.C.: No ATTENDING PHYSICIAN STATEMENT I saw and evaluated the patient. I reviewed the resident's note and discussed the case with the resident. I agree with the resident's findings and plan as documented. SUBJECTIVE: OBJECTIVE: ASSESSMENT AND PLAN:
--- NOTE | 2019-12-19 14:03 | PN ---
Teaching Attending Note Name of Resident: Justin Cardona ATTENDING PHYSICIAN STATEMENT I saw and evaluated the patient. I reviewed the resident's note and discussed the case with the resident. I agree with the resident's findings and plan as documented. SUBJECTIVE: Patient seen and examined in the ICU. Intubated and sedated. No pressors. Intake & Output 12/16/19 12/17/19 12/18/19 12/19/19 23:59 23:59 23:59 23:59 Intake Total 524 1340 687 Output Total 6380 6750 3375 Balance -5826 -5410 -2688 Weight 240 lb 279 lb 266 lb 5 oz 251 lb 5.231 oz Last Vital Signs Temp Pulse Resp BP Pulse Ox 97.3 F L 68 20 110/68 95 12/18/19 16:00 12/19/19 09:00 12/19/19 11:46 12/19/19 09:00 12/19/19 11:46 Active Medications Apixaban (Eliquis -) 5 mg PO BID LYNETTE Last Admin: 12/19/19 10:25 Dose: 5 mg Documented by: Ascorbic Acid (Vitamin C -) 1,000 mg PO DAILY [facility] Last Admin: 12/19/19 10:25 Dose: 1,000 mg Documented by: Budesonide/Formoterol Fumarate (Symbicort 80/4.5mcg -) 2 puff IH BID LYNETTE Last Admin: 12/19/19 10:27 Dose: Not Given Documented by: Furosemide (Lasix Injection -) 80 mg IVPUSH BID@0600,1400 LYNETTE Propofol (Diprivan -) 1,000,000 mcg in 100 mls @ 3.266 mls/hr IVPB TITR LYNETTE; Protocol Last Admin: 12/19/19 10:25 Dose: Not Given Documented by: Cefepime HCl 1 gm/ Dextrose 100 mls @ 100 mls/hr IVPB Q8H-IV LYNETTE; Protocol Last Admin: 12/19/19 10:26 Dose: 100 mls/hr Documented by: Midazolam HCl (Midazolam 100mg/100ml-0.9%Nacl) 100 mg in 100 mls @ 10 mls/hr IVPB TITR LYNETTE; Protocol Stop: 12/21/19 23:44 Last Titration: 12/19/19 07:01 Dose: 5 mg/hr, 5 mls/hr Documented by: Lisinopril (Prinivil) 2.5 mg PO DAILY [facility] Metolazone (Zaroxolyn -) 7.5 mg PO DAILY [facility] Last Admin: 12/19/19 10:31 Dose: 7.5 mg Documented by: Metoprolol Tartrate (Lopressor -) 25 mg PO BID [facility] Multivitamins/Minerals/Vitamin C (Tab-A-Vit -) 1 tab PO DAILY [facility] Last Admin: 12/19/19 10:25 Dose: 1 tab Documented by: Pantoprazole Sodium (Protonix Iv) 40 mg IVPUSH DAILY [facility] Last Admin: 12/19/19 10:27 Dose: 40 mg Documented by: PE: GEN: Intubated and sedated HEENT: (-) Pallor, anicteric PULM: Vented, Bibasilar crackles CV: nml S1, S2, RR, unable to appreciate any G/R/M ABD: (+) BS, S/S N/T EXT: + Pulses, WWP X4, +3 pedal Edema CIRCUS HAND: sedated Laboratory Results - last 24 hr 12/16/19 12/19/19 12/19/19 21:25 06:00 06:00 WBC 8.6 Corrected WBC (auto) 8.60 RBC 7.82 H Hgb 18.0 H Hct 60.4 H MCV 77.2 L MCH 23.0 L MCHC 29.7 L RDW 24.0 H Plt Count 113 L MPV 8.8 Platelet Comment Rare giant plts Anticoagulation Therapy Puncture Site ABG pH ABG pCO2 at Pt Temp ABG pO2 at Pt Temp ABG HCO3 ABG O2 Sat (Measured) ABG O2 Content ABG Base Excess Ye Test Patient On Oxygen O2 Delivery Device Oxygen Flow Rate Vent Mode Vent Rate Mechanical Rate PEEP Pressure Support Vent Sodium 141 Potassium 3.9 Chloride 93 L Carbon Dioxide 40 H Anion Gap 9 BUN 15.2 Creatinine 1.1 Est GFR (CKD-EPI)AfAm 80.65 Est GFR (CKD-EPI)NonAf 69.58 Random Glucose 96 Calcium 8.3 L Phosphorus 4.6 Magnesium 1.6 L B-Natriuretic Peptide 298.0 H COVID-19 (RAJENDRA) Not detected 12/19/19 08:05 WBC Corrected WBC (auto) RBC Hgb Hct MCV MCH MCHC RDW Plt Count MPV Platelet Comment Anticoagulation Therapy No Result Required. Puncture Site Left radial ABG pH 7.53 H ABG pCO2 at Pt Temp 49.5 H ABG pO2 at Pt Temp 74.1 L ABG HCO3 40.8 H ABG O2 Sat (Measured) 96.1 ABG O2 Content No Result Required. ABG Base Excess 15.2 H Ye Test Positive Patient On Oxygen Yes O2 Delivery Device Vent Oxygen Flow Rate 100% Vent Mode A/c Vent Rate 26 Mechanical Rate Yes PEEP 7.0 Pressure Support Vent 450 Sodium Potassium Chloride Carbon Dioxide Anion Gap BUN Creatinine Est GFR (CKD-EPI)AfAm Est GFR (CKD-EPI)NonAf Random Glucose Calcium Phosphorus Magnesium B-Natriuretic Peptide COVID-19 (RAJENDRA) ASSESS: Acute Respiratory Failure due to CHF R/O PNA HTN HLD JUANA (not using CPAP) OHS COPD GERD Systolic congestive heart failure Paroxysmal atrial fibrillation (on Eliquis, s/p cardioversion 11/2016) PLAN: -LTVV for plat <30 -Maintain O2 sat >92% -Aggressive diuresis as tolerated -Sedation for vent synchrony -Maintain MAP>65 -Rate control -Monitor UOP and BMP -Replete electrolytes -Cont empiric antibiotics for CAP coverage -F/u cultures -Enteral feeds -cont Eliquis -GI proph Dr Gab Sanz Critical care time spent in reviewing chart, evaluating patient and formulating plan - 36 minutes.
[2019-12-19] MEDS: METOPROLOL TARTRATE 25 MG TABLET (FP) PO SCH ×2 (14:40→21:42)
[2019-12-19] MEDS: LISINOPRIL 5 MG TABLET (FP) PO SCH (14:40)
[2019-12-19] MEDS: FUROSEMIDE 40 MG/4 ML INJECTABLE VIAL IVPUSH SCH (14:40)
[2019-12-19] MEDS ORDERED: VASOPRESSIN 20 UNITS/ML VIAL IV ONE (15:17)
--- NOTE | 2019-12-19 16:34 | PROC ---
Central Line Insertion Indication: Vasopressor Risks and Benefits Explained: No (emergent) Consent on Chart: No (emergent) Central Line: Triple Lumen Catheter Anesthesia: 1% Lidocaine Sterile Technique: Yes Ultrasound Guided Assistance: Yes Position: Right Internal Jugular Post Insertion: Yes: Other (lung sliding) Sterile Dressing Applied: Yes
[2019-12-19] MEDS ORDERED: NOREPINEPHRINE BITARTRATE 16,000 MCG in SODIUM CHLORIDE 484 ML IV SCH (19:15)
[2019-12-20] MEDS ORDERED: DEXTROSE 5%-WATER 100 ML IVPB ONE ×3 (01:04→17:59)
[2019-12-20] MEDS ORDERED: CEFEPIME HCL 1 GM VIAL (RESTRICTED TO ID) ONE ×3 (01:04→17:59)
[2019-12-20] MEDS: CEFEPIME 1 GM in DEXTROSE 5%-WATER 100 ML IVPB SCH ×3 (01:35→18:39)
[2019-12-20] MEDS: MIDAZOLAM IN 0.9 % SOD.CHLORID 100 MG/100 ML PLAST..BAG IVPB SCH ×2 (04:09→23:40)
[2019-12-20] MEDS: PROPOFOL 1,000,000 MCG/100 ML VIAL IVPB SCH (04:11)
[2019-12-20] MEDS: FUROSEMIDE 40 MG/4 ML INJECTABLE VIAL IVPUSH SCH ×3 (05:18→18:39)
[2019-12-20 05:59] LABS: HEMATOCRIT 58.6 % (35.4-49); HEMOGLOBIN 17.4 GM/dL (11.7-16.9); MCH 22.8 pg (25.7-33.7); MCHC 29.7 g/dl (32.0-35.9); MEAN CELL VOLUME 76.8 fl (80-96); MEAN PLT VOLUME 8.8 fl (7.5-11.1); PLATELET COUNT 97 K/MM3 (134-434); RDW 24.1 % (11.9-15.9); WHITE BLOOD COUNT 7.9 K/mm3 (4.0-10.0)
[2019-12-20 06:00] LABS: RBC 7.62 M/mm3 (4.00-5.60)
[2019-12-20 06:16] LABS: ARTERIAL BLD GAS O2 SATURATION 97.1 % (95-98); ARTERIAL BLOOD GAS PCO2 54.6 mmHg (35-45); ARTERIAL BLOOD GAS PO2 88.3 mmHg (80-100); ARTERIAL BLOOD GAS pH 7.47 (7.35-7.45)
[2019-12-20 06:17] LABS: ALLENS TEST POSITIVE; ARTERIAL BLOOD GAS BASE EXCESS 12.5 mmol/L (-2-2)
[2019-12-20 06:39] LABS: BLOOD UREA NITROGEN 17.6 mg/dL (7-18); POTASSIUM 3.2 mmol/L (3.5-5.1)
[2019-12-20] MEDS ORDERED: NAPH,MB-DB/K PH,MBDB POWDER PACKET PO ONE (06:49)
[2019-12-20 08:00] LABS: PHOSPHOROUS 4.9 mg/dL (2.5-4.9)
[2019-12-20] MEDS: KCL 10 MEQ IVPB 10 MEQ/100 ML INFUS.BAG IVPB SCH ×3 (10:05→12:00)
[2019-12-20] MEDS: ASPIRIN 81 MG CHEWABLE TABLETS PO SCH (11:05)
[2019-12-20] MEDS: LISINOPRIL 5 MG TABLET (FP) PO SCH (11:06)
[2019-12-20] MEDS: ASCORBIC ACID 500 MG TABLET (FP) PO SCH (11:06)
[2019-12-20] MEDS: BUDESONIDE/FORMETEROL FUMARATE 80/4.5 mcg INHALER IH SCH ×2 (11:06→21:11)
[2019-12-20] MEDS: MULTIVITAMINS (DAILY MVI) TABLET (FP) PO SCH (11:06)
[2019-12-20] MEDS: METOPROLOL TARTRATE 25 MG TABLET (FP) PO SCH ×2 (11:06→21:10)
[2019-12-20] MEDS: PANTOPRAZOLE SODIUM 40 MG VIAL IVPUSH SCH (11:06)
[2019-12-20] MEDS: APIXABAN 5 MG TABLET PO SCH ×2 (11:06→21:10)
[2019-12-20] MEDS: METOLAZONE 2.5 MG TABLET (FP) PO SCH (11:07)
--- NOTE | 2019-12-20 12:09 | PN ---
Physical Exam: SUBJECTIVE: Patient seen and examined. Afebrile and asymptomatic. No acute overnight events. Pt had runs of svts overnight. R/p EKG shows ST depression on V1, V2, V3, and TWI on leads 1,2 and avF. Started on asa, cont eliquis, cardiology contacted. Will cont to monitor. OBJECTIVE: Vital Signs Period Temp Pulse Resp BP Sys/Clements Pulse Ox Last 24 Hr 98.2 F-99.5 F 69-83 16-26 69-176/43-98 94-99 GENERAL: sedated, vented EYES: Pupils equal, round and reactive to light, extraocular movements intact, sclera anicteric, conjunctiva clear. No lid lag. EARS, NOSE, THROAT: dry, mucous membranes. LUNGS: Breath sounds equal, clear to auscultation bilaterally. No wheezes, and no crackles. on Vent HEART: Regular rate and rhythm, normal S1 and S2 without murmur, rub or gallop. ABDOMEN: Soft, nontender, not distended, normoactive bowel sounds, no guarding, no rebound, no masses. UPPER EXTREMITIES: 2+ pulses, warm, well-perfused. No cyanosis. No peripheral edema. LOWER EXTREMITIES: 2+ pulses, warm, well-perfused. No calf tenderness. No peripheral edema. SKIN: Warm, dry, normal turgor, no rashes or lesions noted. Laboratory Results - last 24 hr 12/19/19 12/20/19 12/20/19 06:00 05:30 05:30 WBC 7.9 Corrected WBC (auto) 8.60 RBC 7.62 H Hgb 17.4 H Hct 58.6 H MCV 76.8 L MCH 22.8 L MCHC 29.7 L RDW 24.1 H Plt Count 113 L 97 L MPV 8.8 8.8 Platelet Comment Rare giant plts Anticoagulation Therapy Puncture Site ABG pH ABG pCO2 at Pt Temp ABG pO2 at Pt Temp ABG HCO3 ABG O2 Sat (Measured) ABG O2 Content ABG Base Excess Ye Test Patient On Oxygen O2 Delivery Device Oxygen Flow Rate Vent Mode Vent Rate Mechanical Rate PEEP Pressure Support Vent Sodium 139 Potassium 3.2 L Chloride 91 L Carbon Dioxide 38 H Anion Gap 10 BUN 17.6 Creatinine 1.0 Est GFR (CKD-EPI)AfAm 90.50 Est GFR (CKD-EPI)NonAf 78.08 Random Glucose 122 H Calcium 8.0 L Phosphorus 4.9 Creatine Kinase Troponin I 12/20/19 12/20/19 06:00 07:30 WBC Corrected WBC (auto) RBC Hgb Hct MCV MCH MCHC RDW Plt Count MPV Platelet Comment Anticoagulation Therapy No Result Required. Puncture Site Right radial ABG pH 7.47 H ABG pCO2 at Pt Temp 54.6 H ABG pO2 at Pt Temp 88.3 ABG HCO3 39.2 H ABG O2 Sat (Measured) 97.1 ABG O2 Content No Result Required. ABG Base Excess 12.5 H Ye Test Positive Patient On Oxygen Yes O2 Delivery Device Vent Oxygen Flow Rate 100% Vent Mode A/c Vent Rate 20 Mechanical Rate Yes PEEP 7.0 Pressure Support Vent 450 Sodium Potassium Chloride Carbon Dioxide Anion Gap BUN Creatinine Est GFR (CKD-EPI)AfAm Est GFR (CKD-EPI)NonAf Random Glucose Calcium Phosphorus Creatine Kinase 50 Troponin I 0.10 H Active Medications Generic Name Dose Route Start Last Admin Trade Name Freq PRN Reason Stop Dose Admin Apixaban 5 mg 12/16/19 22:00 12/20/19 11:06 Eliquis - PO 5 mg BID L[facility]NETTE Administration Ascorbic Acid 1,000 mg 12/17/19 10:00 12/20/19 11:06 Vitamin C - PO 1,000 mg DAILY L[facility]TE Administration Aspirin 81 mg 12/20/19 10:00 12/20/19 11:05 Asa - PO 81 mg DAILY L[facility]TE Administration Budesonide/Formoterol Fumarate 2 puff 12/16/19 22:00 12/20/19 11:06 Symbicort 80/4.5mcg - IH Not Given BID LYNETTE Furosemide 80 mg 12/19/19 14:00 12/20/19 05:18 Lasix Injection - IVPUSH 80 mg BID@0600,1400 L[facility]NETTE Administration Propofol 1,000,000 mcg in 100 mls @ 3.266 mls/hr 12/17/19 04:30 12/20/19 04:11 Diprivan - IVPB 10 mcg/kg/min TITR L[facility]NETTE 6.532 mls/hr Administration Protocol 5 MCG/KG/MIN Cefepime HCl 1 gm/ Dextrose 100 mls @ 100 mls/hr 12/18/19 11:15 12/20/19 11:06 IVPB 100 mls/hr Q8H-IV L[facility]NETTE Administration Protocol Midazolam HCl 100 mg in 100 mls @ 10 mls/hr 12/18/19 23:45 12/20/19 04:09 Midazolam 100mg/100ml-0.9%Nacl IVPB 12/21/19 23:44 10 mg/hr TITR L[facility]NETTE 10 mls/hr Administration Protocol 10 MG/HR Lisinopril 2.5 mg 12/19/19 12:00 12/20/19 11:06 Prinivil PO 2.5 mg DAILY L[facility]NETTE Administration Metolazone 7.5 mg 12/19/19 10:00 12/20/19 11:07 Zaroxolyn - PO 7.5 mg DAILY L[facility]NETTE Administration Metoprolol Tartrate 25 mg 12/19/19 12:00 12/20/19 11:06 Lopressor - PO 25 mg BID LYNETTE Administration Multivitamins/Minerals/Vitamin C 1 tab 12/17/19 10:00 12/20/19 11:06 Tab-A-Vit - PO 1 tab DAILY L[facility]TE Administration Pantoprazole Sodium 40 mg 12/19/19 10:00 12/20/19 11:06 Protonix Iv IVPUSH 40 mg DAILY L[facility]NETTE Administration ASSESSMENT/PLAN: 64 year old male with a past medical history of HTN, HLD, JUANA (not using CPAP), COPD, GERD, systolic congestive heart failure, paroxysmal atrial fibrillation (on Eliquis, s/p cardioversion 11/2016) who presented with 3 weeks of gradual onset anasarca, scrotal swelling and mild shortness of breath worse on exertion, found to have right lobe PNA, fluid overload, bilateral lower extremity cellulitis and bilateral hydrocele, and respiratory acidosis is admitted for Acute hypercapneic respiratory failure and Acute CHF exacerbation #Neuro Pt sedated and vented Propofol 10, versed 5 #CV Fluid Overload 2/2 sCHF exacerbation, CXR- with small right and left pleural effusion monitor renal studies, electrolytes, strict I&O's and daily weights Clinical signs of severe volume overload- anasarca, b/l LE edema, crackles on b/l lungs Cardiology following on lisinopril and metoprolol Can give lasix pushes r/o NSTEMI troponin elevated today .10, r/p trop ordered New EKG changes- ST depression, TWI, cardiology input pending Pt on eliquis, started on ASA, will need to consider transfer for cath #Pulm Acute hypercapneic resp failure 2/2 to Community acquired pneumonia vs COPD exacerbation CXR- right mid and lower lung and left lung base pneumonia ABG showed 7.47/54/88/39.4 AC 20/450/100/7 Plat 23, PIP 42 vented #ID Bilateral Lower Extremity Cellulitis vanc d/rodriguez Cefepime D3 ID consulted #Renal stable renal function appropriate cont diuresis aggressive #GI Anasarca cont diuresis #Heme monitor #DVT ppx On eliquis #GI ppx protonix FEN monitor lytes Fluid restrictions cont feeds Aspiration risk Dispo: cont abx, monitor I&Os, cont lasix, f/u r/p trops, monitor tele and ekg, f/u cardiology input Mothers # [phone] -cell, -Home Attempted to notify and contact pt's mother/ as per chart, unable to reach. Will continue trying Visit type - Emergency Visit Emergency Visit: Yes ED Registration Date: 12/16/19 Care time: The patient presented to the Emergency Department on the above date and was hospitalized for further evaluation of their emergent condition. - New Patient This patient is new to me today: Yes Date on this admission: 12/21/19 - Critical Care Critical Care patient: No - Discharge Referral Referred to [facility] Med P.C.: No ATTENDING PHYSICIAN STATEMENT I saw and evaluated the patient. I reviewed the resident's note and discussed the case with the resident. I agree with the resident's findings and plan as documented. SUBJECTIVE: OBJECTIVE: ASSESSMENT AND PLAN:
--- NOTE | 2019-12-20 13:24 | PN ---
Teaching Attending Note Name of Resident: Justin Cardona ATTENDING PHYSICIAN STATEMENT I saw and evaluated the patient. I reviewed the resident's note and discussed the case with the resident. I agree with the resident's findings and plan as documented. SUBJECTIVE: Patient seen and examined in the ICU. Intubated and sedated. No pressors. EKG noted: ischemic changes. Intake & Output 12/17/19 12/18/19 12/19/19 12/20/19 23:59 23:59 23:59 23:59 Intake Total 524 1340 1333 300 Output Total 6350 6750 4275 900 Balance -5826 -5410 -2942 -600 Weight 279 lb 266 lb 5 oz 251 lb 5.231 oz 258 lb Last Vital Signs Temp Pulse Resp BP Pulse Ox 98.8 F 76 21 H 103/77 94 L 12/20/19 10:00 12/20/19 12:00 12/20/19 12:25 12/20/19 12:00 12/20/19 08:10 Active Medications Apixaban (Eliquis -) 5 mg PO BID L[facility]NETTE Last Admin: 12/20/19 11:06 Dose: 5 mg Documented by: Ascorbic Acid (Vitamin C -) 1,000 mg PO DAILY L[facility]NETTE Last Admin: 12/20/19 11:06 Dose: 1,000 mg Documented by: Aspirin (Asa -) 81 mg PO DAILY [facility]NETTE Last Admin: 12/20/19 11:05 Dose: 81 mg Documented by: Budesonide/Formoterol Fumarate (Symbicort 80/4.5mcg -) 2 puff IH BID L[facility]NETTE Last Admin: 12/20/19 11:06 Dose: Not Given Documented by: Furosemide (Lasix Injection -) 80 mg IVPUSH 0600,1300,1900 [facility] Propofol (Diprivan -) 1,000,000 mcg in 100 mls @ 3.266 mls/hr IVPB TITR LYNETTE; Protocol Last Admin: 12/20/19 04:11 Dose: 10 mcg/kg/min, 6.532 mls/hr Documented by: Cefepime HCl 1 gm/ Dextrose 100 mls @ 100 mls/hr IVPB Q8H-IV L[facility]NETTE; Protocol Last Admin: 12/20/19 11:06 Dose: 100 mls/hr Documented by: Midazolam HCl (Midazolam 100mg/100ml-0.9%Nacl) 100 mg in 100 mls @ 10 mls/hr IVPB TITR [facility]; Protocol Stop: 12/21/19 23:44 Last Admin: 12/20/19 04:09 Dose: 10 mg/hr, 10 mls/hr Documented by: Lisinopril (Prinivil) 2.5 mg PO DAILY [facility] Last Admin: 12/20/19 11:06 Dose: 2.5 mg Documented by: Metolazone (Zaroxolyn -) 7.5 mg PO DAILY [facility] Last Admin: 12/20/19 11:07 Dose: 7.5 mg Documented by: Metoprolol Tartrate (Lopressor -) 25 mg PO BID [facility] Last Admin: 12/20/19 11:06 Dose: 25 mg Documented by: Multivitamins/Minerals/Vitamin C (Tab-A-Vit -) 1 tab PO DAILY [facility] Last Admin: 12/20/19 11:06 Dose: 1 tab Documented by: Pantoprazole Sodium (Protonix Iv) 40 mg IVPUSH DAILY [facility] Last Admin: 12/20/19 11:06 Dose: 40 mg Documented by: PE: GEN: Intubated and sedated HEENT: (-) Pallor, anicteric PULM: Vented, Bibasilar crackles CV: nml S1, S2, RR, unable to appreciate any G/R/M ABD: (+) BS, S/S N/T EXT: + Pulses, WWP X4, +3 pedal Edema LPN PRIVATE DUTY: sedated Laboratory Results - last 24 hr 12/20/19 12/20/19 12/20/19 05:30 05:30 06:00 WBC 7.9 RBC 7.62 H Hgb 17.4 H Hct 58.6 H MCV 76.8 L MCH 22.8 L MCHC 29.7 L RDW 24.1 H Plt Count 97 L MPV 8.8 Anticoagulation Therapy No Result Required. Puncture Site Right radial ABG pH 7.47 H ABG pCO2 at Pt Temp 54.6 H ABG pO2 at Pt Temp 88.3 ABG HCO3 39.2 H ABG O2 Sat (Measured) 97.1 ABG O2 Content No Result Required. ABG Base Excess 12.5 H Ey Test Positive Patient On Oxygen Yes O2 Delivery Device Vent Oxygen Flow Rate 100% Vent Mode A/c Vent Rate 20 Mechanical Rate Yes PEEP 7.0 Pressure Support Vent 450 Sodium 139 Potassium 3.2 L Chloride 91 L Carbon Dioxide 38 H Anion Gap 10 BUN 17.6 Creatinine 1.0 Est GFR (CKD-EPI)AfAm 90.50 Est GFR (CKD-EPI)NonAf 78.08 Random Glucose 122 H Calcium 8.0 L Phosphorus 4.9 Creatine Kinase Troponin I 12/20/19 12/20/19 07:30 12:15 WBC RBC Hgb Hct MCV MCH MCHC RDW Plt Count MPV Anticoagulation Therapy Puncture Site ABG pH ABG pCO2 at Pt Temp ABG pO2 at Pt Temp ABG HCO3 ABG O2 Sat (Measured) ABG O2 Content ABG Base Excess Ye Test Patient On Oxygen O2 Delivery Device Oxygen Flow Rate Vent Mode Vent Rate Mechanical Rate PEEP Pressure Support Vent Sodium Potassium Chloride Carbon Dioxide Anion Gap BUN Creatinine Est GFR (CKD-EPI)AfAm Est GFR (CKD-EPI)NonAf Random Glucose Calcium Phosphorus Creatine Kinase 50 Troponin I 0.10 H 0.08 H ASSESS: Acute Respiratory Failure due to CHF R/O PNA HTN HLD JUANA (not using CPAP) OHS COPD GERD Systolic congestive heart failure Paroxysmal atrial fibrillation (on Eliquis, s/p cardioversion 11/2016) PLAN: -LTVV for plat <30 -Maintain O2 sat >92% -Aggressive diuresis as tolerated -Sedation for vent synchrony -Maintain MAP>65 -Rate control -Monitor UOP and BMP -Replete electrolytes -Cont empiric antibiotics for CAP coverage -F/u cultures -Enteral feeds -cont Eliquis -GI proph Dr Gab Sanz Critical care time spent in reviewing chart, evaluating patient and formulating plan - 36 minutes.
--- NOTE | 2019-12-20 15:35 | PN ---
Progress Note, Physician Chief Complaint: Events noted Intubated and sedated History of Present Illness: Patient was seen and examined in ICU. On mechanical ventilator. Chart was reviewed - Current Medication List Current Medications: Active Medications Apixaban (Eliquis -) 5 mg PO BID [facility] Last Admin: 12/20/19 11:06 Dose: 5 mg Documented by: Ascorbic Acid (Vitamin C -) 1,000 mg PO DAILY [facility] Last Admin: 12/20/19 11:06 Dose: 1,000 mg Documented by: Aspirin (Asa -) 81 mg PO DAILY [facility] Last Admin: 12/20/19 11:05 Dose: 81 mg Documented by: Budesonide/Formoterol Fumarate (Symbicort 80/4.5mcg -) 2 puff IH BID [facility] Last Admin: 12/20/19 11:06 Dose: Not Given Documented by: Furosemide (Lasix Injection -) 80 mg IVPUSH 0600,1300,1900 [facility] Propofol (Diprivan -) 1,000,000 mcg in 100 mls @ 3.266 mls/hr IVPB TITR [facility]; Protocol Last Admin: 12/20/19 04:11 Dose: 10 mcg/kg/min, 6.532 mls/hr Documented by: Cefepime HCl 1 gm/ Dextrose 100 mls @ 100 mls/hr IVPB Q8H-IV [facility]; Protocol Last Admin: 12/20/19 11:06 Dose: 100 mls/hr Documented by: Midazolam HCl (Midazolam 100mg/100ml-0.9%Nacl) 100 mg in 100 mls @ 10 mls/hr IVPB TITR [facility]NETTE; Protocol Stop: 12/21/19 23:44 Last Admin: 12/20/19 04:09 Dose: 10 mg/hr, 10 mls/hr Documented by: Lisinopril (Prinivil) 2.5 mg PO DAILY [facility] Last Admin: 12/20/19 11:06 Dose: 2.5 mg Documented by: Metolazone (Zaroxolyn -) 7.5 mg PO DAILY [facility] Last Admin: 12/20/19 11:07 Dose: 7.5 mg Documented by: Metoprolol Tartrate (Lopressor -) 25 mg PO BID [facility] Last Admin: 12/20/19 11:06 Dose: 25 mg Documented by: Multivitamins/Minerals/Vitamin C (Tab-A-Vit -) 1 tab PO DAILY [facility] Last Admin: 12/20/19 11:06 Dose: 1 tab Documented by: Pantoprazole Sodium (Protonix Iv) 40 mg IVPUSH DAILY [facility] Last Admin: 12/20/19 11:06 Dose: 40 mg Documented by: - Objective Vital Signs: Vital Signs Temperature 98.5 F 12/20/19 14:00 Pulse Rate 80 12/20/19 14:00 Respiratory Rate 21 H 12/20/19 15:20 Blood Pressure 116/70 12/20/19 14:00 O2 Sat by Pulse Oximetry (%) 91 L 12/20/19 15:20 Neck: Yes: Supple Cardiovascular: Yes: Regular Rate and Rhythm, S1, S2 Respiratory: Yes: Diminished, Mechanically Ventilated Gastrointestinal: Yes: Normal Bowel Sounds, Soft, Abdomen, Obese. No: Tenderness Edema: Yes Labs: CBC, BMP 12/20/19 05:30 12/20/19 05:30 Laboratory Results - last 24 hr 12/20/19 12/20/19 12/20/19 05:30 05:30 06:00 WBC 7.9 RBC 7.62 H Hgb 17.4 H Hct 58.6 H MCV 76.8 L MCH 22.8 L MCHC 29.7 L RDW 24.1 H Plt Count 97 L MPV 8.8 Anticoagulation Therapy No Result Required. Puncture Site Right radial ABG pH 7.47 H ABG pCO2 at Pt Temp 54.6 H ABG pO2 at Pt Temp 88.3 ABG HCO3 39.2 H ABG O2 Sat (Measured) 97.1 ABG O2 Content No Result Required. ABG Base Excess 12.5 H Ye Test Positive Patient On Oxygen Yes O2 Delivery Device Vent Oxygen Flow Rate 100% Vent Mode A/c Vent Rate 20 Mechanical Rate Yes PEEP 7.0 Pressure Support Vent 450 Sodium 139 Potassium 3.2 L Chloride 91 L Carbon Dioxide 38 H Anion Gap 10 BUN 17.6 Creatinine 1.0 Est GFR (CKD-EPI)AfAm 90.50 Est GFR (CKD-EPI)NonAf 78.08 Random Glucose 122 H Calcium 8.0 L Phosphorus 4.9 Creatine Kinase Troponin I 12/20/19 12/20/19 07:30 12:15 WBC RBC Hgb Hct MCV MCH MCHC RDW Plt Count MPV Anticoagulation Therapy Puncture Site ABG pH ABG pCO2 at Pt Temp ABG pO2 at Pt Temp ABG HCO3 ABG O2 Sat (Measured) ABG O2 Content ABG Base Excess Ye Test Patient On Oxygen O2 Delivery Device Oxygen Flow Rate Vent Mode Vent Rate Mechanical Rate PEEP Pressure Support Vent Sodium Potassium Chloride Carbon Dioxide Anion Gap BUN Creatinine Est GFR (CKD-EPI)AfAm Est GFR (CKD-EPI)NonAf Random Glucose Calcium Phosphorus Creatine Kinase 50 Troponin I 0.10 H 0.08 H Problem List - Problems (1) Congestive heart failure (CHF) Code(s): I50.9 - HEART FAILURE, UNSPECIFIED Qualifiers: Heart failure type: diastolic Heart failure chronicity: acute on chronic Qualified Code(s): I50.33 - Acute on chronic diastolic (congestive) heart failure (2) Pleural effusion Code(s): J90 - PLEURAL EFFUSION, NOT ELSEWHERE CLASSIFIED (3) Pneumonia Code(s): J18.9 - PNEUMONIA, UNSPECIFIED ORGANISM Qualifiers: Pneumonia type: due to unspecified organism Laterality: right Lung location: lower lobe of lung Qualified Code(s): J18.9 - Pneumonia, unspecified organism (4) Acute hypercapnic respiratory failure Code(s): J96.02 - ACUTE RESPIRATORY FAILURE WITH HYPERCAPNIA (5) Acute on chronic diastolic (congestive) heart failure Code(s): I50.33 - ACUTE ON CHRONIC DIASTOLIC (CONGESTIVE) HEART FAILURE (6) Acute respiratory failure with hypoxia and hypercarbia Code(s): J96.01 - ACUTE RESPIRATORY FAILURE WITH HYPOXIA; J96.02 - ACUTE RESPIRATORY FAILURE WITH HYPERCAPNIA (7) Atrial fibrillation Code(s): I48.91 - UNSPECIFIED ATRIAL FIBRILLATION Qualifiers: Atrial fibrillation type: paroxysmal Qualified Code(s): I48.0 - Paroxysmal atrial fibrillation (8) COPD (chronic obstructive pulmonary disease) Code(s): J44.9 - CHRONIC OBSTRUCTIVE PULMONARY DISEASE, UNSPECIFIED Qualifiers: COPD type: unspecified COPD Qualified Code(s): J44.9 - Chronic obstructive pulmonary disease, unspecified (9) Hypertension Code(s): I10 - ESSENTIAL (PRIMARY) HYPERTENSION Qualifiers: Hypertension type: essential hypertension Qualified Code(s): I10 - Essential (primary) hypertension (10) Respiratory failure requiring intubation Code(s): J96.90 - RESPIRATORY FAILURE, UNSP, UNSP W HYPOXIA OR HYPERCAPNIA (11) Sleep apnea Code(s): G47.30 - SLEEP APNEA, UNSPECIFIED Qualifiers: Sleep apnea type: obstructive Qualified Code(s): G47.33 - Obstructive sleep apnea (adult) (pediatric) (12) Systolic and diastolic CHF, chronic Code(s): I50.42 - CHRONIC COMBINED SYSTOLIC AND DIASTOLIC HRT FAIL Assessment/Plan 1. Acute on chronic Hypoxic and Hypercapneic Respiratory Failure, currently intubated 2. Acute on chronic LV Diastolic Heart Failure with pleural effusion 3. ? Pneumonia 4. Paroxysmal atrial fibrillation with periods of rapid ventricular response post DCCV, [id number] score of 2 5. Obstructive Sleep Apnea/Obesity Hypoventilation Syndrome with dental appliance 6. HTN/HCVD 7. Hypercholesterolemia 8. CAD angina pectoris 9. Bilateral cellulitis with h/o abscess s/p debridement 10. Bilateral hydrocele PLAN: 1. Vent management per critical care team 2. DVT and GI prophylaxis 3. Diuretics and monitor renal function and electrolytes (currently on Lasix 80 mg Q8). Continue diuresis.. Monitor I/Os 4. Continue Lopressor 25 mg BID, Lisinopril 2.5 mg QD and Eliquis 5 mg BID 5. Empiric antibiotic 6. Pressor weaned Continue supportive care Guarded Khalif Correa MD
--- NOTE | 2019-12-20 17:46 | PN ---
Progress Note, Physician History of Present Illness: Pt seen and examined in the ICU. He remains intubated/sedated, afebrile. - Current Medication List Current Medications: Active Medications Apixaban (Eliquis -) 5 mg PO BID [facility] Last Admin: 12/20/19 11:06 Dose: 5 mg Documented by: Ascorbic Acid (Vitamin C -) 1,000 mg PO DAILY [facility]NETTE Last Admin: 12/20/19 11:06 Dose: 1,000 mg Documented by: Aspirin (Asa -) 81 mg PO DAILY [facility] Last Admin: 12/20/19 11:05 Dose: 81 mg Documented by: Budesonide/Formoterol Fumarate (Symbicort 80/4.5mcg -) 2 puff IH BID [facility]TE Last Admin: 12/20/19 11:06 Dose: Not Given Documented by: Furosemide (Lasix Injection -) 80 mg IVPUSH 0600,1300,1900 [facility] Last Admin: 12/20/19 15:00 Dose: 80 mg Documented by: Propofol (Diprivan -) 1,000,000 mcg in 100 mls @ 3.266 mls/hr IVPB TITR [facility]NET[facility]; Protocol Last Admin: 12/20/19 04:11 Dose: 10 mcg/kg/min, 6.532 mls/hr Documented by: Cefepime HCl 1 gm/ Dextrose 100 mls @ 100 mls/hr IVPB Q8H-IV [facility]NETTE; Protocol Last Admin: 12/20/19 11:06 Dose: 100 mls/hr Documented by: Midazolam HCl (Midazolam 100mg/100ml-0.9%Nacl) 100 mg in 100 mls @ 10 mls/hr IVPB TITR L[facility]NETTE; Protocol Stop: 12/21/19 23:44 Last Admin: 12/20/19 04:09 Dose: 10 mg/hr, 10 mls/hr Documented by: Lisinopril (Prinivil) 2.5 mg PO DAILY [facility] Last Admin: 12/20/19 11:06 Dose: 2.5 mg Documented by: Metolazone (Zaroxolyn -) 7.5 mg PO DAILY [facility] Last Admin: 12/20/19 11:07 Dose: 7.5 mg Documented by: Metoprolol Tartrate (Lopressor -) 25 mg PO BID [facility] Last Admin: 12/20/19 11:06 Dose: 25 mg Documented by: Multivitamins/Minerals/Vitamin C (Tab-A-Vit -) 1 tab PO DAILY [facility] Last Admin: 12/20/19 11:06 Dose: 1 tab Documented by: Pantoprazole Sodium (Protonix Iv) 40 mg IVPUSH DAILY [facility] Last Admin: 12/20/19 11:06 Dose: 40 mg Documented by: - Objective Vital Signs: Vital Signs Temperature 98.5 F 12/20/19 14:00 Pulse Rate 80 12/20/19 14:00 Respiratory Rate 21 H 12/20/19 15:20 Blood Pressure 116/70 12/20/19 14:00 O2 Sat by Pulse Oximetry (%) 91 L 12/20/19 15:20 Constitutional: Yes: No Distress Cardiovascular: Yes: Pulse Irregular Respiratory: Yes: Mechanically Ventilated Gastrointestinal: Yes: Normal Bowel Sounds, Soft Genitourinary: Yes: Hilario Present Extremities: Yes: Erythema (mild b/l LE) Edema: LLE: 1+, RLE: 1+ Integumentary: Yes: WNL Neurological: Yes: Other (on sedation) Labs: CBC, BMP 12/20/19 05:30 12/20/19 05:30 INR, PTT INR 1.34 (0.83-1.09) H 12/16/19 18:40 Laboratory Last Values WBC 7.9 K/mm3 (4.0-10.0) 12/20/19 05:30 Corrected WBC (auto) 8.60 K/mm3 12/19/19 06:00 RBC 7.62 M/mm3 (4.00-5.60) H 12/20/19 05:30 Hgb 17.4 GM/dL (11.7-16.9) H 12/20/19 05:30 Hct 58.6 % (35.4-49) H 12/20/19 05:30 MCV 76.8 fl (80-96) L 12/20/19 05:30 MCH 22.8 pg (25.7-33.7) L 12/20/19 05:30 MCHC 29.7 g/dl (32.0-35.9) L 12/20/19 05:30 RDW 24.1 % (11.9-15.9) H 12/20/19 05:30 Plt Count 97 K/MM3 (134-434) L 12/20/19 05:30 MPV 8.8 fl (7.5-11.1) 12/20/19 05:30 Absolute Neuts (auto) 4.8 K/mm3 (1.5-8.0) 12/16/19 18:40 Neutrophils % 69.7 % (42.8-82.8) 12/16/19 18:40 Lymphocytes % 11.0 % (8-40) 12/16/19 18:40 Monocytes % 15.8 % (3.8-10.2) H 12/16/19 18:40 Eosinophils % 2.4 % (0-4.5) 12/16/19 18:40 Basophils % 1.1 % (0-2.0) 12/16/19 18:40 Nucleated RBC % 0 % (0-0) 12/16/19 18:40 Hypochromia 1+ 12/16/19 18:40 Platelet Estimate Adequate 12/16/19 18:40 Platelet Comment Rare giant plts 12/19/19 06:00 Polychromasia 1+ 12/16/19 18:40 Poikilocytosis 1+ 12/16/19 18:40 Anisocytosis 3+ 12/16/19 18:40 Macrocytosis 1+ 12/16/19 18:40 Target Cells 1+ 12/16/19 18:40 PT with INR 15.90 SEC (9.7-13.0) H 12/16/19 18:40 INR 1.34 (0.83-1.09) H 12/16/19 18:40 Anticoagulation Therapy No Result Required. 12/20/19 06:00 Puncture Site Right radial 12/20/19 06:00 ABG pH 7.47 (7.35-7.45) H 12/20/19 06:00 ABG pCO2 at Pt Temp 54.6 mmHg (35-45) H 12/20/19 06:00 ABG pO2 at Pt Temp 88.3 mmHg (80-100) 12/20/19 06:00 ABG HCO3 39.2 mmol/L (22-27) H 12/20/19 06:00 ABG O2 Sat (Measured) 97.1 % (95-98) 12/20/19 06:00 ABG O2 Content No Result Required. 12/20/19 06:00 ABG Base Excess 12.5 mmol/L (-2-2) H 12/20/19 06:00 Ye Test Positive 12/20/19 06:00 Patient On Oxygen Yes 12/20/19 06:00 O2 Delivery Device Vent 12/20/19 06:00 Oxygen Flow Rate 100% 12/20/19 06:00 Vent Mode A/c 12/20/19 06:00 Vent Rate 20 12/20/19 06:00 Mechanical Rate Yes 12/20/19 06:00 PEEP 7.0 cmH2O 12/20/19 06:00 Pressure Support Vent 450 12/20/19 06:00 Sodium 139 mmol/L (136-145) 12/20/19 05:30 Potassium 3.2 mmol/L (3.5-5.1) L 12/20/19 05:30 Chloride 91 mmol/L (98-107) L 12/20/19 05:30 Carbon Dioxide 38 mmol/L (21-32) H 12/20/19 05:30 Anion Gap 10 MMOL/L (8-16) 12/20/19 05:30 BUN 17.6 mg/dL (7-18) 12/20/19 05:30 Creatinine 1.0 mg/dL (0.55-1.3) 12/20/19 05:30 Est GFR (CKD-EPI)AfAm 90.50 12/20/19 05:30 Est GFR (CKD-EPI)NonAf 78.08 12/20/19 05:30 Random Glucose 122 mg/dL (74-106) H 12/20/19 05:30 Calcium 8.0 mg/dL (8.5-10.1) L 12/20/19 05:30 Phosphorus 4.9 mg/dL (2.5-4.9) 12/20/19 05:30 Magnesium 1.6 mg/dL (1.8-2.4) L 12/19/19 06:00 Total Bilirubin 1.4 mg/dL (0.2-1) H 12/18/19 06:00 AST 20 U/L (15-37) 12/18/19 06:00 ALT 10 U/L (13-61) L 12/18/19 06:00 Alkaline Phosphatase 62 U/L (45-117) 12/18/19 06:00 Creatine Kinase 50 U/L (26-308) 12/20/19 07:30 Troponin I 0.08 ng/ml (0.00-0.05) H 12/20/19 12:15 B-Natriuretic Peptide 298.0 pg/ml (5-125) H 12/19/19 06:00 Total Protein 4.8 g/dl (6.4-8.2) L 12/18/19 06:00 Albumin 2.1 g/dl (3.4-5.0) L 12/18/19 06:00 COVID-19 (RAJENDRA) Not detected (Not Detected) 12/16/19 21:25 Microbiology 12/16/19 20:13 Blood - Peripheral Venous Blood Culture - Preliminary NO GROWTH OBTAINED AFTER 72 HOURS, INCUBATION TO CONTINUE FOR 2 DAYS. 12/16/19 19:50 Blood - Peripheral Venous Blood Culture - Preliminary NO GROWTH OBTAINED AFTER 72 HOURS, INCUBATION TO CONTINUE FOR 2 DAYS. - ....Imaging Chest X-ray: Report Reviewed Problem List - Problems (1) Edema of scrotum Code(s): N50.89 - OTHER SPECIFIED DISORDERS OF THE MALE GENITAL ORGANS (2) Morbid obesity Code(s): E66.01 - MORBID (SEVERE) OBESITY DUE TO EXCESS CALORIES (3) Acute on chronic diastolic (congestive) heart failure Code(s): I50.33 - ACUTE ON CHRONIC DIASTOLIC (CONGESTIVE) HEART FAILURE (4) Acute respiratory failure requiring reintubation Code(s): J96.00 - ACUTE RESPIRATORY FAILURE, UNSP W HYPOXIA OR HYPERCAPNIA (5) Afib Code(s): I48.91 - UNSPECIFIED ATRIAL FIBRILLATION Qualifiers: Atrial fibrillation type: paroxysmal Qualified Code(s): I48.0 - Paroxysmal atrial fibrillation Assessment/Plan Acute respiratory failure/intubation CHF Possible PNA b/l LE Cellulitis b/l Hydrocele Paroxysmal AFIB COPD JUANA CAD HTN HLD -- events noted, imaging/lab results reviewed -- remains intubated -- LE erythema improving -- continue Cefepime -- pt afebrile, blood cultures neg to date -- continue management cc time: 36 min
[2019-12-21] MEDS ORDERED: DEXTROSE 5%-WATER 100 ML IVPB ONE ×3 (01:52→16:27)
[2019-12-21] MEDS ORDERED: CEFEPIME HCL 1 GM VIAL (RESTRICTED TO ID) ONE ×3 (01:52→16:27)
[2019-12-21] MEDS: CEFEPIME 1 GM in DEXTROSE 5%-WATER 100 ML IVPB SCH ×3 (02:05→17:59)
[2019-12-21] MEDS: PROPOFOL 1,000,000 MCG/100 ML VIAL IVPB SCH (04:45)
[2019-12-21] MEDS: FUROSEMIDE 40 MG/4 ML INJECTABLE VIAL IVPUSH SCH ×2 (05:02→13:11)
[2019-12-21 06:00] LABS: HEMATOCRIT 59.5 % (35.4-49); HEMOGLOBIN 17.5 GM/dL (11.7-16.9); MCH 22.6 pg (25.7-33.7); MCHC 29.3 g/dl (32.0-35.9); MEAN CELL VOLUME 77.1 fl (80-96); MEAN PLT VOLUME 9.6 fl (7.5-11.1); PLATELET COUNT 96 K/MM3 (134-434); RDW 23.5 % (11.9-15.9); WHITE BLOOD COUNT 9.2 K/mm3 (4.0-10.0)
[2019-12-21 06:36] LABS: CREATININE 1.4 mg/dL (0.55-1.3); POTASSIUM 3.1 mmol/L (3.5-5.1)
[2019-12-21 06:40] LABS: RBC 7.72 M/mm3 (4.00-5.60)
[2019-12-21] MEDS: NOREPINEPHRINE D5W PREMIX 16,000 MCG/500 ML BAG IVPB SCH (06:45)
[2019-12-21 07:52] LABS: MAGNESIUM 2.1 mg/dL (1.8-2.4); PHOSPHOROUS 4.5 mg/dL (2.5-4.9)
[2019-12-21] MEDS ORDERED: MIDAZOLAM IN 0.9 % SOD.CHLORID 1 MG/1 ML PLAST..BAG ONE (08:39)
[2019-12-21] MEDS ORDERED: PT OWN MED DRAWER 7, Y5N ONE ×2 (09:03→09:45)
[2019-12-21] MEDS: POTASSIUM CHLORIDE 20 MEQ PREMIX IVPB 100 ML IVPB SCH ×4 (09:09→21:18)
[2019-12-21] MEDS: ASPIRIN 81 MG CHEWABLE TABLETS PO SCH (09:40)
[2019-12-21] MEDS: APIXABAN 5 MG TABLET PO SCH ×2 (09:40→21:39)
[2019-12-21] MEDS: LISINOPRIL 5 MG TABLET (FP) PO SCH (09:40)
[2019-12-21] MEDS: METOPROLOL TARTRATE 25 MG TABLET (FP) PO SCH ×2 (09:40→21:39)
[2019-12-21] MEDS: METOLAZONE 2.5 MG TABLET (FP) PO SCH (09:41)
[2019-12-21] MEDS: ASCORBIC ACID 500 MG TABLET (FP) PO SCH (09:41)
[2019-12-21] MEDS: MULTIVITAMINS (DAILY MVI) TABLET (FP) PO SCH (09:41)
[2019-12-21] MEDS: BUDESONIDE/FORMETEROL FUMARATE 80/4.5 mcg INHALER IH SCH ×2 (09:41→21:40)
[2019-12-21] MEDS: PANTOPRAZOLE SODIUM 40 MG VIAL IVPUSH SCH (09:41)
--- NOTE | 2019-12-21 10:32 | PN ---
Physical Exam: SUBJECTIVE: Patient seen and examined OBJECTIVE: Vital Signs Period Temp Pulse Resp BP Sys/Clements Pulse Ox Last 24 Hr 98.5 F-99.2 F 76-118 18-21 81-124/52-91 90-92 GENERAL: The patient is awake, alert, and fully oriented, in no acute distress. HEAD: Normal with no signs of trauma. EYES: PERRL, extraocular movements intact, sclera anicteric, conjunctiva clear. No ptosis. ENT: Ears normal, nares patent, oropharynx clear without exudates, moist mucous membranes. NECK: Trachea midline, full range of motion, supple. LUNGS: Breath sounds equal, clear to auscultation bilaterally, no wheezes, no crackles, no accessory muscle use. HEART: Regular rate and rhythm, S1, S2 without murmur, rub or gallop. ABDOMEN: Soft, nontender, nondistended, normoactive bowel sounds, no guarding, no rebound, no hepatosplenomegaly, no masses. EXTREMITIES: 2+ pulses, warm, well-perfused, no edema. NEUROLOGICAL: Cranial nerves II through XII grossly intact. Normal speech, gait not observed. PSYCH: Normal mood, normal affect. SKIN: Warm, dry, normal turgor, no rashes or lesions noted Laboratory Results - last 24 hr 12/20/19 12/21/19 12/21/19 12:15 05:15 05:15 WBC 9.2 RBC 7.72 H Hgb 17.5 H Hct 59.5 H MCV 77.1 L MCH 22.6 L MCHC 29.3 L RDW 23.5 H Plt Count 96 L MPV 9.6 Sodium 136 Potassium 3.1 L Chloride 86 L Carbon Dioxide 43 H Anion Gap 7 L BUN 29.0 H Creatinine 1.4 H Est GFR (CKD-EPI)AfAm 60.25 Est GFR (CKD-EPI)NonAf 51.99 Random Glucose 147 H Calcium 8.0 L Phosphorus 4.5 Magnesium 2.1 Troponin I 0.08 H Active Medications Generic Name Dose Route Start Last Admin Trade Name Freq PRN Reason Stop Dose Admin Apixaban 5 mg 12/16/19 22:00 12/21/19 09:40 Eliquis - PO 5 mg BID [facility]TE Administration Ascorbic Acid 1,000 mg 12/17/19 10:00 06/17/20 09:41 Vitamin C - PO 1,000 mg DAILY [facility]TE Administration Aspirin 81 mg 12/20/19 10:00 12/21/19 09:40 Asa - PO 81 mg DAILY [facility] Administration Budesonide/Formoterol Fumarate 2 puff 12/16/19 22:00 12/21/19 09:41 Symbicort 80/4.5mcg - IH Not Given BID [facility]NETTE Furosemide 80 mg 12/20/19 13:00 12/21/19 05:02 Lasix Injection - IVPUSH 80 mg 0600,1300,1900 L[facility]NETTE Administration Propofol 1,000,000 mcg in 100 mls @ 3.266 mls/hr 12/17/19 04:30 12/21/19 06:00 Diprivan - IVPB 20 mcg/kg/min TITR [facility]TE 13.063 mls/hr Titration Protocol 5 MCG/KG/MIN Cefepime HCl 1 gm/ Dextrose 100 mls @ 100 mls/hr 12/18/19 11:15 12/21/19 09:15 IVPB 100 mls/hr Q8H-IV [facility]NETTE Administration Protocol Midazolam HCl 100 mg in 100 mls @ 10 mls/hr 12/18/19 23:45 12/20/19 23:40 Midazolam 100mg/100ml-0.9%Nacl IVPB 12/21/19 23:44 10 mg/hr TITR L[facility]NETTE 10 mls/hr Administration Protocol 10 MG/HR Norepinephrine Bitartrate 16,000 mcg in 500 mls @ 9.375 mls/hr 12/21/19 06:45 12/21/19 06:52 Levophed Bag IVPB 6 mcg/min TITR L[facility]NETTE 11.25 mls/hr Titration Protocol 5 MCG/MIN Lisinopril 2.5 mg 12/19/19 12:00 12/21/19 09:40 Prinivil PO 2.5 mg DAILY [facility] Administration Metolazone 7.5 mg 12/19/19 10:00 12/21/19 09:41 Zaroxolyn - PO 7.5 mg DAILY [facility] Administration Metoprolol Tartrate 25 mg 12/19/19 12:00 12/21/19 09:40 Lopressor - PO 25 mg BID [facility] Administration Multivitamins/Minerals/Vitamin C 1 tab 12/17/19 10:00 12/21/19 09:41 Tab-A-Vit - PO 1 tab DAILY [facility]TE Administration Pantoprazole Sodium 40 mg 12/19/19 10:00 12/21/19 09:41 Protonix Iv IVPUSH 40 mg DAILY [facility] Administration Potassium Chloride 20 meq 12/21/19 08:45 12/21/19 09:52 Potassium Chloride 20 Meq Premix Ivpb - IVPB 12/21/19 10:46 20 meq Q60M [facility] Administration ASSESSMENT/PLAN: 64 year old male with a past medical history of HTN, HLD, JUANA (not using CPAP), COPD, GERD, systolic congestive heart failure, paroxysmal atrial fibrillation (on Eliquis, s/p cardioversion 11/2016) who presented with 3 weeks of gradual onset anasarca, scrotal swelling and mild shortness of breath worse on exertion, found to have right lobe PNA, fluid overload, bilateral lower extremity cellulitis and bilateral hydrocele, and respiratory acidosis is admitted for Acute hypercapneic respiratory failure and Acute CHF exacerbation #Neuro -Pt sedated and vented #Cardio -Patient requiring levophed to maintain blood pressure -arterial line placed today for better BP measurement -Patient w/ frequent PVCs/ NSVT on tele -holding lasix; patient hypotensive and hypokalemic -cardio onboard #pulmonary -intubated -ABG improved today -B/l PNA -vent settings unchanged; Pplat 20 #Renal -hypokalemic with MONIE (1.0 -> 1.4 -> 1.6) -nephro consulted -lasix held -KCL 20meq x3 IV ordered #ID -b/l PNA -Cefepime 1g q8h -ID onboard #FEN -no fluids indicated -replete lytes as above -tube feeds #Prophy -on eliquis -protonix 40mg IV daily #Dispo -admit ICU -patient in critical condition -prognosis guarded -GOC discussion with pt mother and brother, pt remains full code. -Brother Ady states that he would prefer to be contacted over his mother: [phone] Visit type - Emergency Visit Emergency Visit: Yes ED Registration Date: 12/16/19 Care time: The patient presented to the Emergency Department on the above date and was hospitalized for further evaluation of their emergent condition. - New Patient This patient is new to me today: No - Critical Care Critical Care patient: Yes Total Critical Care Time (in minutes): 50 Critical Care Statement: The care of this patient involved high complexity decision making to prevent further life threatening deterioration of the patient's condition and/or to evaluate & treat vital organ system(s) failure or risk of failure. - Discharge Referral Referred to [facility] No ATTENDING PHYSICIAN STATEMENT I saw and evaluated the patient. I reviewed the resident's note and discussed the case with the resident. I agree with the resident's findings and plan as documented. SUBJECTIVE: OBJECTIVE: ASSESSMENT AND PLAN:
--- NOTE | 2019-12-21 10:34 | PN ---
Progress Note, Physician History of Present Illness: 64 year old male with a past medical history of HTN, HLD, JUANA (not using CPAP), COPD, GERD, systolic congestive heart failure, paroxysmal atrial fibrillation (on Eliquis, s/p cardioversion 11/2016) who presented with 3 weeks of gradual onset anasarca, scrotal swelling and mild shortness of breath worse on exertion. CXR s/f diffused bilat opacities with c/f PNA +/-fluid overload, ?bilateral l ower extremity cellulitis and bilateral hydrocele, and respiratory acidosis is admitted for Acute hypercapneic respiratory failure and Acute CHF exacerbation, intubated for progressive hypercarbic respiratory failure, decreased mental status on BiPAP. 12/20/2019 Intubated and sedated on AC Mode of vent, 100% FiO2. Now on NE @ 6 mcq for hemodynamic support. - Current Medication List Current Medications: Active Medications Apixaban (Eliquis -) 5 mg PO BID [facility] Last Admin: 12/21/19 09:40 Dose: 5 mg Documented by: Ascorbic Acid (Vitamin C -) 1,000 mg PO DAILY [facility] Last Admin: 12/21/19 09:41 Dose: 1,000 mg Documented by: Aspirin (Asa -) 81 mg PO DAILY [facility] Last Admin: 12/21/19 09:40 Dose: 81 mg Documented by: Budesonide/Formoterol Fumarate (Symbicort 80/4.5mcg -) 2 puff IH BID [facility] Last Admin: 12/21/19 09:41 Dose: Not Given Documented by: Furosemide (Lasix Injection -) 80 mg IVPUSH 0600,1300,1900 [facility] Last Admin: 12/21/19 05:02 Dose: 80 mg Documented by: Propofol (Diprivan -) 1,000,000 mcg in 100 mls @ 3.266 mls/hr IVPB TITR [facility]; Protocol Last Titration: 12/21/19 06:00 Dose: 20 mcg/kg/min, 13.063 mls/hr Documented by: Cefepime HCl 1 gm/ Dextrose 100 mls @ 100 mls/hr IVPB Q8H-IV [facility]; Protocol Last Admin: 12/21/19 09:15 Dose: 100 mls/hr Documented by: Midazolam HCl (Midazolam 100mg/100ml-0.9%Nacl) 100 mg in 100 mls @ 10 mls/hr IVPB TITR L[facility]NETTE; Protocol Stop: 12/21/19 23:44 Last Admin: 12/20/19 23:40 Dose: 10 mg/hr, 10 mls/hr Documented by: Norepinephrine Bitartrate (Levophed Bag) 16,000 mcg in 500 mls @ 9.375 mls/hr IVPB TITR [facility]NETTE; Protocol Last Titration: 12/21/19 06:52 Dose: 6 mcg/min, 11.25 mls/hr Documented by: Lisinopril (Prinivil) 2.5 mg PO DAILY [facility] Last Admin: 12/21/19 09:40 Dose: 2.5 mg Documented by: Metolazone (Zaroxolyn -) 7.5 mg PO DAILY [facility] Last Admin: 12/21/19 09:41 Dose: 7.5 mg Documented by: Metoprolol Tartrate (Lopressor -) 25 mg PO BID [facility] Last Admin: 12/21/19 09:40 Dose: 25 mg Documented by: Multivitamins/Minerals/Vitamin C (Tab-A-Vit -) 1 tab PO DAILY [facility] Last Admin: 12/21/19 09:41 Dose: 1 tab Documented by: Pantoprazole Sodium (Protonix Iv) 40 mg IVPUSH DAILY [facility] Last Admin: 12/21/19 09:41 Dose: 40 mg Documented by: Potassium Chloride (Potassium Chloride 20 Meq Premix Ivpb -) 20 meq IVPB Q60M [facility] Stop: 12/21/19 10:46 Last Admin: 12/21/19 09:52 Dose: 20 meq Documented by: - Objective Vital Signs: Vital Signs Temperature 99.0 F 12/21/19 06:00 Pulse Rate 117 H 12/21/19 08:00 Respiratory Rate 20 12/21/19 08:00 Blood Pressure 124/91 12/21/19 08:00 O2 Sat by Pulse Oximetry (%) 91 L 12/21/19 08:00 Cardiovascular: Yes: Regular Rate and Rhythm Respiratory: Yes: Intubated, Mechanically Ventilated Gastrointestinal: Yes: Soft, Hypoactive Bowel Sounds Genitourinary: Yes: Hilario Present Edema: Yes Labs: CBC, BMP 12/21/19 05:15 12/21/19 05:15 INR, PTT INR 1.34 (0.83-1.09) H 06/12/20 18:40 - ....Imaging Chest X-ray: Report Reviewed (CHF with decreased right effusion) EKG: Report Reviewed (Tele: SR) Problem List - Problems (1) Congestive heart failure (CHF) Code(s): I50.9 - HEART FAILURE, UNSPECIFIED Qualifiers: Heart failure type: diastolic Heart failure chronicity: acute on chronic Qualified Code(s): I50.33 - Acute on chronic diastolic (congestive) heart failure (2) Pneumonia Code(s): J18.9 - PNEUMONIA, UNSPECIFIED ORGANISM Qualifiers: Pneumonia type: due to unspecified organism Laterality: right Lung location: lower lobe of lung Qualified Code(s): J18.9 - Pneumonia, unspecified organism (3) Acute on chronic diastolic (congestive) heart failure Code(s): I50.33 - ACUTE ON CHRONIC DIASTOLIC (CONGESTIVE) HEART FAILURE (4) Acute respiratory failure with hypoxia and hypercarbia Code(s): J96.01 - ACUTE RESPIRATORY FAILURE WITH HYPOXIA; J96.02 - ACUTE RESPIRATORY FAILURE WITH HYPERCAPNIA (5) Atrial fibrillation Code(s): I48.91 - UNSPECIFIED ATRIAL FIBRILLATION Qualifiers: Atrial fibrillation type: paroxysmal Qualified Code(s): I48.0 - Paroxysmal atrial fibrillation (6) COPD (chronic obstructive pulmonary disease) Code(s): J44.9 - CHRONIC OBSTRUCTIVE PULMONARY DISEASE, UNSPECIFIED Qualifiers: COPD type: unspecified COPD Qualified Code(s): J44.9 - Chronic obstructive pulmonary disease, unspecified (7) Hypertension Code(s): I10 - ESSENTIAL (PRIMARY) HYPERTENSION Qualifiers: Hypertension type: essential hypertension Qualified Code(s): I10 - Essential (primary) hypertension (8) Lymphedema of both lower extremities Code(s): I89.0 - LYMPHEDEMA, NOT ELSEWHERE CLASSIFIED (9) Pleural effusion Code(s): J90 - PLEURAL EFFUSION, NOT ELSEWHERE CLASSIFIED Assessment/Plan 10/26/2017 Normal LV size with mild LVH, normal LV fxn, normal RV size and fxn, mild LAE, mild MR, mild-mod TR, mild [place], RVSP 43 mmHg 11/19/2016 Lexiscan Myoview: Apical ischemia, LVEF 45-52% 10/06/2016 Echocardiography revealed mild to moderate LV systolic dysfunction, moderate TR, RVSP of 30-40 mmH 1. Acute on chronic Hypoxic and Hypercapneic Respiratory Failure 2. Acute on chronic LV Diastolic Heart Failure with pleural effusion 3. R/o PNA, septic shock 4. Paroxysmal atrial fibrillation with periods of rapid ventricular response post DCCV in SR, [id number] score of 2 5. Obstructive Sleep Apnea/Obesity Hypoventilation Syndrome with dental appl iance 6. HTN/HCVD 7. Hypercholesterolemia 8. CAD angina pectoris 9. Bilateral cellulitis with h/o abscess s/p debridement 10. Bilateral hydrocele 11. MONIE due to hemodynamic alterations Plan: 1. Vent management per ABG, sedation for vent synchrony, COVID 19 negative 2. IV diuresis with monitor diuretic response, renal fxn and electrolytes, replete K 3. Resume Lopressor 25 mg BID, Lisinopril 2.5 mg QD, ASA 81 qd and Eliquis 5 bid once hemodynamics tolerate 4. Empiric abx on cefepime per ID 5. Enteral feeds, DVT and GI prophylaxis 6. Wean Levophed to maintain MAP>65 mmHg
--- NOTE | 2019-12-21 10:57 | CONSULT ---
Consult Consult Specialty:: Nephrology Reason for Consultation:: MONIE - History of Present Illness Chief Complaint: initially presented with shortness of breath History of Present Illness: Pt is a 64 year old male with pmhx of htn, hld, lake, copd, gerd, chf, a-fib who presented with shortness of breath and edema that had been progressive. He was found to have worsening resp failure and was intubated. He is now in the ICU. Pt is unable to give history. He was started on lasix for chf. He was found to have elevated monitor technician today and I was called to evaluate him. He is known to me from previous visits. - History Source History Provided By: Medical Record - Past Medical History Cardio/Vascular: Yes: AFIB, CHF, HTN Pulmonary: Yes: COPD, Previously Intubated, Sleep Apnea (uses mouth guard/jaw advancer, "CPAP didn't work/fit") Gastrointestinal: Yes: GERD Renal/: Yes: Renal Inusuff - Past Surgical History Past Surgical History: Yes: None - Alcohol/Substance Use Hx Alcohol Use: Yes History of Substance Use: reports: None - Smoking History Smoking history: Current every day smoker Have you smoked in the past 12 months: Yes Aproximately how many cigarettes per day: 20 If you are a former smoker, when did you quit?: 2 months ago - Social History Usual Living Arrangement: Alone ADL: Independent Home Medications - Allergies Allergies/Adverse Reactions: Allergies Allergy/AdvReac Type Severity Reaction Status Date / Time No Known Allergies Allergy Verified 11/06/18 18:58 - Home Medications Home Medications: Ambulatory Orders Ascorbate Calcium [Vitamin C] 1,000 mg PO DAILY 10/05/16 Schlater-3/Dha/Epa/Fish Oil [Schlater 3 500 Softgel] 350 mg PO DAILY 10/05/16 Apixaban [Eliquis -] 5 mg PO BID #30 tablet 10/23/16 Multivit-Min/Folic/Vit K/Lycop [Men's Multivitamin Caplet] 1 each PO DAILY 11/17/17 Lisinopril [Prinivil] 2.5 mg PO DAILY #30 tablet 11/12/18 Metoprolol Tartrate [Lopressor -] 50 mg PO BID tablet 11/12/18 Pantoprazole Sodium [Protonix -] 40 mg PO DAILY #30 tablet.ec 11/12/18 Fluticasone/Vilanterol [Breo Ellipta 100-25 Mcg INH] 1 inhaler IH DAILY 02/08/19 Hydrochlorothiazide 1 cap PO DAILY 02/08/19 Family Medical History Family History: Unable to Obtain Review of Systems Unable to obtain ROS, reason: sedated Physical Exam Vital Signs: Vital Signs Temperature 99.0 F 12/21/19 06:00 Pulse Rate 87 12/21/19 10:00 Respiratory Rate 16 12/21/19 10:00 Blood Pressure 73/55 L 12/21/19 10:00 O2 Sat by Pulse Oximetry (%) 91 L 12/21/19 09:00 Constitutional: Yes: Calm Eyes: Yes: Conjunctiva Clear HENT: Yes: Atraumatic Neck: Yes: Supple Cardiovascular: Yes: S1, S2 Respiratory: Yes: Mechanically Ventilated Gastrointestinal: Yes: Soft, Abdomen, Obese Renal/: Yes: Hilario Present Musculoskeletal: Yes: Muscle Weakness Edema: No Integumentary: Yes: Venous Stasis Changes Neurological: Yes: Lethargy Labs: CBC, BMP 12/21/19 05:15 12/21/19 05:15 Laboratory Tests 12/16/19 12/18/19 12/19/19 21:25 06:00 06:00 ABG pH ABG pCO2 at Pt Temp ABG HCO3 Potassium Chloride Carbon Dioxide 38 H Creatinine 0.9 1.1 COVID-19 (RAJENDRA) Not detected 12/20/19 12/20/19 12/21/19 05:30 06:00 05:15 ABG pH 7.47 H ABG pCO2 at Pt Temp 54.6 H ABG HCO3 39.2 H Potassium 3.1 L Chloride 86 L Carbon Dioxide 43 H Creatinine 1.0 1.4 H COVID-19 (RAJENDRA) Imaging - Results Chest X-ray: Report Reviewed Problem List - Problems (1) Anasarca Code(s): R60.1 - GENERALIZED EDEMA (2) Congestive heart failure (CHF) Code(s): I50.9 - HEART FAILURE, UNSPECIFIED Qualifiers: Heart failure type: diastolic Heart failure chronicity: acute on chronic Qualified Code(s): I50.33 - Acute on chronic diastolic (congestive) heart failure (3) Acute kidney injury Code(s): N17.9 - ACUTE KIDNEY FAILURE, UNSPECIFIED Assessment/Plan Current Medications Generic Name Dose Route Start Last Admin Trade Name Freq PRN Reason Stop Dose Admin Apixaban 5 mg 12/16/19 22:00 12/21/19 09:40 Eliquis - PO 5 mg BID LYNETTE Administration Ascorbic Acid 1,000 mg 12/17/19 10:00 12/21/19 09:41 Vitamin C - PO 1,000 mg DAILY LYNETTE Administration Aspirin 81 mg 12/20/19 10:00 12/21/19 09:40 Asa - PO 81 mg DAILY LYNETTE Administration Budesonide/Formoterol Fumarate 2 puff 12/16/19 22:00 12/21/19 09:41 Symbicort 80/4.5mcg - IH Not Given BID LYNETTE Furosemide 80 mg 12/20/19 13:00 12/21/19 05:02 Lasix Injection - IVPUSH 80 mg 0600,1300,1900 LYNETTE Administration Propofol 1,000,000 mcg in 100 mls @ 3.266 mls/hr 12/17/19 04:30 12/21/19 06:00 Diprivan - IVPB 20 mcg/kg/min TITR LYNETTE 13.063 mls/hr Titration Protocol 5 MCG/KG/MIN Cefepime HCl 1 gm/ Dextrose 100 mls @ 100 mls/hr 12/18/19 11:15 12/21/19 09:15 IVPB 100 mls/hr Q8H-IV LYNETTE Administration Protocol Midazolam HCl 100 mg in 100 mls @ 10 mls/hr 12/18/19 23:45 12/20/19 23:40 Midazolam 100mg/100ml-0.9%Nacl IVPB 12/21/19 23:44 10 mg/hr TITR LYNETTE 10 mls/hr Administration Protocol 10 MG/HR Norepinephrine Bitartrate 16,000 mcg in 500 mls @ 9.375 mls/hr 12/21/19 06:45 12/21/19 06:52 Levophed Bag IVPB 6 mcg/min TITR LYNETTE 11.25 mls/hr Titration Protocol 5 MCG/MIN Lisinopril 2.5 mg 12/19/19 12:00 12/21/19 09:40 Prinivil PO 2.5 mg DAILY LYNETTE Administration Metolazone 7.5 mg 12/19/19 10:00 12/21/19 09:41 Zaroxolyn - PO 7.5 mg DAILY LYNETTE Administration Metoprolol Tartrate 25 mg 12/19/19 12:00 12/21/19 09:40 Lopressor - PO 25 mg BID LYNETTE Administration Multivitamins/Minerals/Vitamin C 1 tab 12/17/19 10:00 12/21/19 09:41 Tab-A-Vit - PO 1 tab DAILY LYNETTE Administration Pantoprazole Sodium 40 mg 12/19/19 10:00 12/21/19 09:41 Protonix Iv IVPUSH 40 mg DAILY LYNETTE Administration Impression 1. MONIE 2. CHF acute 3. acute resp failure requiring intubation 4. atrial fibrillation 5. hx of htn 6. obesity 7. chronic smoker 8. hypokalemia Plan - hold lasix for now - repeat monitor technician in am - edema is improved - avoid contraction alkalosis - repeat abg in am - pt did get his am dose of lasix today - will check labs before dosing lasix - hold areli for now - monitor volume status - cont vent support
--- NOTE | 2019-12-21 11:20 | PN ---
Teaching Attending Note Name of Resident: Glenn Sauceda ATTENDING PHYSICIAN STATEMENT I saw and evaluated the patient. I reviewed the resident's note and discussed the case with the resident. I agree with the resident's findings and plan as documented. SUBJECTIVE: Patient seen and examined in the ICU. Intubated and sedated. AC Mode of vent, 100% FiO2. Clinical decompensation, now on NE @ 6 mcq for hemodynamic support. Intake & Output 12/18/19 12/19/19 12/20/19 12/21/19 23:59 23:59 23:59 23:59 Intake Total 1340 1333 1050 320 Output Total 6750 4275 6400 200 Balance -5410 -2942 -5350 120 Weight 266 lb 5 oz 251 lb 5.231 oz 258 lb 247 lb Last Vital Signs Temp Pulse Resp BP Pulse Ox 99.0 F 87 16 73/55 L 91 L 12/21/19 06:00 12/21/19 10:00 12/21/19 10:00 12/21/19 10:00 12/21/19 09:00 Active Medications Apixaban (Eliquis -) 5 mg PO BID [facility] Last Admin: 12/21/19 09:40 Dose: 5 mg Documented by: Ascorbic Acid (Vitamin C -) 1,000 mg PO DAILY [facility] Last Admin: 12/21/19 09:41 Dose: 1,000 mg Documented by: Aspirin (Asa -) 81 mg PO DAILY [facility] Last Admin: 12/21/19 09:40 Dose: 81 mg Documented by: Budesonide/Formoterol Fumarate (Symbicort 80/4.5mcg -) 2 puff IH BID [facility] Last Admin: 12/21/19 09:41 Dose: Not Given Documented by: Furosemide (Lasix Injection -) 80 mg IVPUSH 0600,1300,1900 [facility] Last Admin: 12/21/19 05:02 Dose: 80 mg Documented by: Propofol (Diprivan -) 1,000,000 mcg in 100 mls @ 3.266 mls/hr IVPB TITR [facility]; Protocol Last Titration: 12/21/19 06:00 Dose: 20 mcg/kg/min, 13.063 mls/hr Documented by: Cefepime HCl 1 gm/ Dextrose 100 mls @ 100 mls/hr IVPB Q8H-IV [facility]; Protocol Last Admin: 12/21/19 09:15 Dose: 100 mls/hr Documented by: Midazolam HCl (Midazolam 100mg/100ml-0.9%Nacl) 100 mg in 100 mls @ 10 mls/hr IVPB TITR [facility]NETTE; Protocol Stop: 12/21/19 23:44 Last Admin: 12/20/19 23:40 Dose: 10 mg/hr, 10 mls/hr Documented by: Norepinephrine Bitartrate (Levophed Bag) 16,000 mcg in 500 mls @ 9.375 mls/hr IVPB TITR [facility]; Protocol Last Titration: 12/21/19 06:52 Dose: 6 mcg/min, 11.25 mls/hr Documented by: Lisinopril (Prinivil) 2.5 mg PO DAILY [facility] Last Admin: 12/21/19 09:40 Dose: 2.5 mg Documented by: Metolazone (Zaroxolyn -) 7.5 mg PO DAILY [facility] Last Admin: 12/21/19 09:41 Dose: 7.5 mg Documented by: Metoprolol Tartrate (Lopressor -) 25 mg PO BID [facility] Last Admin: 12/21/19 09:40 Dose: 25 mg Documented by: Multivitamins/Minerals/Vitamin C (Tab-A-Vit -) 1 tab PO DAILY [facility] Last Admin: 12/21/19 09:41 Dose: 1 tab Documented by: Pantoprazole Sodium (Protonix Iv) 40 mg IVPUSH DAILY [facility] Last Admin: 12/21/19 09:41 Dose: 40 mg Documented by: PE: GEN: Intubated and sedated HEENT: (-) Pallor, anicteric PULM: Vented, Bibasilar crackles CV: nml S1, S2, RR, unable to appreciate any G/R/M ABD: (+) BS, S/S N/T EXT: + Pulses, WWP X4, +3 pedal Edema RIGGER: sedated Laboratory Results - last 24 hr 12/20/19 12/21/19 12/21/19 12:15 05:15 05:15 WBC 9.2 RBC 7.72 H Hgb 17.5 H Hct 59.5 H MCV 77.1 L MCH 22.6 L MCHC 29.3 L RDW 23.5 H Plt Count 96 L MPV 9.6 Sodium 136 Potassium 3.1 L Chloride 86 L Carbon Dioxide 43 H Anion Gap 7 L BUN 29.0 H Creatinine 1.4 H Est GFR (CKD-EPI)AfAm 60.25 Est GFR (CKD-EPI)NonAf 51.99 Random Glucose 147 H Calcium 8.0 L Phosphorus 4.5 Magnesium 2.1 Troponin I 0.08 H ASSESS: Acute Respiratory Failure due to CHF Suspected combined Septic & Cardiogenic shock R/O PNA HTN HLD JUANA (not using CPAP) OHS COPD GERD Systolic congestive heart failure Paroxysmal atrial fibrillation (on Eliquis, s/p cardioversion 11/2016) MONIE PLAN: -Pressors to maintain MAP > 65 -Arterial line insertion -LTVV for plat <30 -Maintain O2 sat >92% -Hold diuresis -Renal evaluation -Sedation for vent synchrony -Maintain MAP>65 -Rate control -Monitor UOP and BMP -Replete electrolytes -Cont empiric antibiotics for CAP coverage -F/u cultures -Enteral feeds -cont Eliquis -GI proph Dr Gab Sanz Critical care time spent in reviewing chart, evaluating patient and formulating plan - 36 minutes.
--- NOTE | 2019-12-21 12:43 | EKG ---
Test Reason : Blood Pressure : / mmHG Vent. Rate : 131 BPM Atrial Rate : 131 BPM P-R Int : 170 ms QRS Dur : 082 ms QT Int : 286 ms P-R-T Axes : 073 106 222 degrees QTc Int : 422 ms SINUS TACHYCARDIA BIATRIAL ENLARGEMENT RIGHTWARD AXIS PULMONARY DISEASE PATTERN ABNORMAL ECG WHEN COMPARED WITH ECG OF 17-DEC-2019 11:00, SIGNIFICANT CHANGES HAVE OCCURRED Confirmed by MD LOULOU, DAVID ([id number]) on 12/21/2019 12:43:13 PM Referred By: Confirmed By:DAVID JAMIL MD
--- NOTE | 2019-12-21 12:45 | EKG ---
Test Reason : Blood Pressure : / mmHG Vent. Rate : 088 BPM Atrial Rate : 088 BPM P-R Int : 156 ms QRS Dur : 088 ms QT Int : 438 ms P-R-T Axes : 059 104 189 degrees QTc Int : 529 ms SINUS RHYTHM WITH SINUS ARRHYTHMIA WITH OCCASIONAL and consecutive PREMATURE VENTRICULAR COMPLEXES AND FUSION COMPLEXES POSSIBLE LEFT ATRIAL ENLARGEMENT RIGHTWARD AXIS PROLONGED QT ABNORMAL ECG WHEN COMPARED WITH ECG OF 20-DEC-2019 07:12, FUSION COMPLEXES ARE NOW PRESENT PREMATURE VENTRICULAR COMPLEXES ARE NOW PRESENT VENT. RATE HAS DECREASED BY 43 BPM T WAVE INVERSION LESS EVIDENT IN INFERIOR LEADS Confirmed by MD LOULOU, DAVID ([id number]) on 12/21/2019 12:44:43 PM Referred By: Confirmed By:DAVID JAMIL MD
--- NOTE | 2019-12-21 14:12 | PN ---
Progress Note, Physician History of Present Illness: continues to be intubated still not able to be extubated - Current Medication List Current Medications: Active Medications Amino Acids (Prosource No Carb Liquid Pkt) 30 ml PO BID@0800,1730 [facility] Apixaban (Eliquis -) 5 mg PO BID [facility] Last Admin: 12/21/19 09:40 Dose: 5 mg Documented by: Ascorbic Acid (Vitamin C -) 1,000 mg PO DAILY [facility] Last Admin: 12/21/19 09:41 Dose: 1,000 mg Documented by: Aspirin (Asa -) 81 mg PO DAILY [facility] Last Admin: 12/21/19 09:40 Dose: 81 mg Documented by: Budesonide/Formoterol Fumarate (Symbicort 80/4.5mcg -) 2 puff IH BID [facility] Last Admin: 12/21/19 09:41 Dose: Not Given Documented by: Furosemide (Lasix Injection -) 80 mg IVPUSH 0600,1300,1900 [facility] Last Admin: 12/21/19 13:11 Dose: 80 mg Documented by: Propofol (Diprivan -) 1,000,000 mcg in 100 mls @ 3.266 mls/hr IVPB TITR [facility]; Protocol Last Titration: 12/21/19 06:00 Dose: 20 mcg/kg/min, 13.063 mls/hr Documented by: Cefepime HCl 1 gm/ Dextrose 100 mls @ 100 mls/hr IVPB Q8H-IV [facility]; Protocol Last Admin: 12/21/19 09:15 Dose: 100 mls/hr Documented by: Midazolam HCl (Midazolam 100mg/100ml-0.9%Nacl) 100 mg in 100 mls @ 10 mls/hr IVPB TITR [facility]; Protocol Stop: 12/21/19 23:44 Last Admin: 12/20/19 23:40 Dose: 10 mg/hr, 10 mls/hr Documented by: Norepinephrine Bitartrate (Levophed Bag) 16,000 mcg in 500 mls @ 9.375 mls/hr IVPB TITR [facility]; Protocol Last Titration: 12/21/19 06:52 Dose: 6 mcg/min, 11.25 mls/hr Documented by: Lisinopril (Prinivil) 2.5 mg PO DAILY [facility] Last Admin: 12/21/19 09:40 Dose: 2.5 mg Documented by: Metolazone (Zaroxolyn -) 7.5 mg PO DAILY [facility] Last Admin: 12/21/19 09:41 Dose: 7.5 mg Documented by: Metoprolol Tartrate (Lopressor -) 25 mg PO BID [facility] Last Admin: 12/21/19 09:40 Dose: 25 mg Documented by: Multivitamins/Minerals/Vitamin C (Tab-A-Vit -) 1 tab PO DAILY [facility] Last Admin: 12/21/19 09:41 Dose: 1 tab Documented by: Pantoprazole Sodium (Protonix Iv) 40 mg IVPUSH DAILY [facility] Last Admin: 12/21/19 09:41 Dose: 40 mg Documented by: - Objective Vital Signs: Vital Signs Temperature 99.0 F 12/21/19 06:00 Pulse Rate 88 12/21/19 12:00 Respiratory Rate 12/21/19 12:00 Blood Pressure 92/68 12/21/19 12:00 O2 Sat by Pulse Oximetry (%) 91 L 12/21/19 09:00 Constitutional: Yes: Other Cardiovascular: Yes: S1, S2 Respiratory: Yes: Intubated, Mechanically Ventilated Gastrointestinal: Yes: Normal Bowel Sounds, Soft, Other (ng in place) Musculoskeletal: Yes: WNL Extremities: Yes: Other Neurological: Yes: Other Labs: CBC, BMP 12/21/19 05:15 12/21/19 05:15 INR, PTT INR 1.34 (0.83-1.09) H 12/16/19 18:40 - ....Imaging Chest X-ray: Report Reviewed, Image Reviewed Assessment/Plan 64 year old male with a past medical history of HTN, HLD, JUANA (not using CPAP), COPD, GERD, systolic congestive heart failure, paroxysmal atrial fibrillation (on Eliquis, s/p cardioversion 11/2016) who presented with 3 weeks of gradual onset anasarca, scrotal swelling and mild shortness of breath worse on exertion. He as found to have a PNA, on clinical exam signs of fluid overload, ?bilateral lower extremity cellulitis and bilateral hydrocele. 1. Acute Respiratory Failure 2. Fluid Overload/ 3.Bilateral Lower Extremity Cellulitis 4. Hydrocele 5. Hypertension 6. Atrial Fibrillation 7. Elevated Troponin 8. Rule Out COVID 9 pna plan continue current mgmt will d/w the team might deeescalate the abx rest as per the team cc 38 min min
--- NOTE | 2019-12-21 15:25 | PROC ---
Procedure Note Procedure: Consent obtained for arterial line from patient's mother by Dr. Sauceda. The risks were noted to include bleeding infection. The indication for the procedure was hypotension and labile BP. A timeout was performed. Nursing staff was present and the patient was monitored using telemetry and continuous pulse oximetry. The patient was placed with LUE abducted for ease of access and the proximal medial upper arm was prepped chlorhexidine and a sterile drape was placed. Sterile technique including gown, mask, and gloves were used and antibacterial hand gel was used before gloving. The ultrasound machine, using a sterile probe cover, was used to visualize the left axillary artery by the compression technique. The skin was anesthetized with local infiltration with 3 cc of 1% lidocaine and an 18 gauge finder needle was used to enter the artery. Medium red blood was aspirated, verified introducer needle was in the artery with US, and a guidewire was threaded through the needle into the artery. The needle was removed over the guidewire, skin was nicked with scalpel, and the arterial catheter was inserted easily and secured to the skin at the hub. The guidewire was removed and the catheter was hooked up to arterial line tubing, zero'ed, and showed good arterial pulsewave. A sterile dressing and Biopatch were applied. EBL 2cc.
[2019-12-21] MEDS: AMINO ACIDS/PROTEIN HYDROLYS 30 ML LIQUID.PKT PO SCH (17:59)
[2019-12-21 19:15] LABS: ARTERIAL BLD GAS O2 SATURATION 94.5 mmHg (95-98); ARTERIAL BLOOD GAS BASE EXCESS 10.6 mmol/L (-2-2); ARTERIAL BLOOD GAS PO2 68.5 mmHg (80-100); ARTERIAL BLOOD GAS pH 7.474 (7.350-7.450)
[2019-12-21 19:18] LABS: VENT MODE A/C; VENT RATE 20
[2019-12-21 20:53] LABS: BLOOD UREA NITROGEN 37.3 mg/dL (7-18); CALCIUM 8.2 mg/dL (8.5-10.1); CREATININE 1.6 mg/dL (0.55-1.3); POTASSIUM 3.1 mmol/L (3.5-5.1)
[2019-12-22] MEDS ORDERED: CEFEPIME HCL 1 GM VIAL (RESTRICTED TO ID) ONE ×3 (01:02→20:19)
[2019-12-22] MEDS ORDERED: DEXTROSE 5%-WATER 100 ML IVPB ONE ×3 (01:02→20:19)
[2019-12-22] MEDS: CEFEPIME 1 GM in DEXTROSE 5%-WATER 100 ML IVPB SCH ×3 (01:12→19:00)
[2019-12-22] MEDS: POTASSIUM CHLORIDE 20 MEQ PREMIX IVPB 100 ML IVPB SCH ×2 (02:30)
[2019-12-22] MEDS: PROPOFOL 1,000,000 MCG/100 ML VIAL IVPB SCH ×3 (05:45→17:02)
[2019-12-22 06:35] LABS: ARTERIAL BLD GAS O2 SATURATION 94.5 mmHg (95-98); ARTERIAL BLOOD GAS PO2 69.4 mmHg (80-100); ARTERIAL BLOOD GAS pH 7.457 (7.350-7.450)
[2019-12-22 06:38] LABS: VENT MODE A/C
[2019-12-22 06:39] LABS: VENT RATE 20
[2019-12-22 06:43] LABS: HEMOGLOBIN 17.4 GM/dL (11.7-16.9); MEAN CELL VOLUME 79.3 fl (80-96); MEAN PLT VOLUME 9.1 fl (7.5-11.1); PLATELET COUNT 90 K/MM3 (134-434); RDW 23.3 % (11.9-15.9); WHITE BLOOD COUNT 10.2 K/mm3 (4.0-10.0)
[2019-12-22] MEDS: NOREPINEPHRINE D5W PREMIX 16,000 MCG/500 ML BAG IVPB SCH (06:45)
[2019-12-22] MEDS ORDERED: MIDAZOLAM IN 0.9 % SOD.CHLORID 1 MG/1 ML PLAST..BAG ONE ×2 (06:56→21:25)
[2019-12-22] MEDS: MIDAZOLAM IN 0.9 % SOD.CHLORID 100 MG/100 ML PLAST..BAG IVPB SCH ×2 (07:00→17:07)
[2019-12-22 07:04] LABS: RBC 7.57 M/mm3 (4.00-5.60)
[2019-12-22 07:07] LABS: BILIRUBIN,TOTAL 2.4 mg/dL (0.2-1); BLOOD UREA NITROGEN 43.8 mg/dL (7-18); CALCIUM 8.3 mg/dL (8.5-10.1); CREATININE 1.6 mg/dL (0.55-1.3); MAGNESIUM 2.2 mg/dL (1.8-2.4); PHOSPHOROUS 4.3 mg/dL (2.5-4.9); POTASSIUM 3.7 mmol/L (3.5-5.1)
--- NOTE | 2019-12-22 09:08 | PN ---
Progress Note, Physician History of Present Illness: 64 year old male with a past medical history of HTN, HLD, JUANA (not using CPAP), COPD, GERD, systolic congestive heart failure, paroxysmal atrial fibrillation (on Eliquis, s/p cardioversion 11/2016) who presented with 3 weeks of gradual onset anasarca, scrotal swelling and mild shortness of breath worse on exertion. CXR s/f diffused bilat opacities with c/f PNA +/-fluid overload, ?bilateral l ower extremity cellulitis and bilateral hydrocele, and respiratory acidosis is admitted for Acute hypercapneic respiratory failure and Acute CHF exacerbation, intubated for progressive hypercarbic respiratory failure, decreased mental status on BiPAP. 12/22/2019 Remains intubated and sedated on AC Mode of vent, 100% FiO2. Now on NE @ 8 mcq for hemodynamic support. - Current Medication List Current Medications: Active Medications Amino Acids (Prosource No Carb Liquid Pkt) 30 ml PO BID@0800,1730 [facility] Last Admin: 12/21/19 17:59 Dose: 30 ml Documented by: Apixaban (Eliquis -) 5 mg PO BID [facility] Last Admin: 12/21/19 21:39 Dose: 5 mg Documented by: Ascorbic Acid (Vitamin C -) 1,000 mg PO DAILY [facility] Last Admin: 12/21/19 09:41 Dose: 1,000 mg Documented by: Aspirin (Asa -) 81 mg PO DAILY [facility] Last Admin: 12/21/19 09:40 Dose: 81 mg Documented by: Budesonide/Formoterol Fumarate (Symbicort 80/4.5mcg -) 2 puff IH BID [facility] Last Admin: 12/21/19 21:40 Dose: Not Given Documented by: Propofol (Diprivan -) 1,000,000 mcg in 100 mls @ 3.266 mls/hr IVPB TITR [facility]; Protocol Last Admin: 12/22/19 05:45 Dose: 20 mcg/kg/min, 13.063 mls/hr Documented by: Cefepime HCl 1 gm/ Dextrose 100 mls @ 100 mls/hr IVPB Q8H-IV [facility]; Protocol Last Admin: 12/22/19 01:12 Dose: 100 mls/hr Documented by: Norepinephrine Bitartrate (Levophed Bag) 16,000 mcg in 500 mls @ 9.375 mls/hr IVPB TITR [facility]; Protocol Last Admin: 12/22/19 06:45 Dose: Not Given Documented by: Midazolam HCl (Midazolam 100mg/100ml-0.9%Nacl) 100 mg in 100 mls @ 1 mls/hr IVPB TITR [facility]; Protocol Last Admin: 12/22/19 07:00 Dose: 10 mg/hr, 10 mls/hr Documented by: Metoprolol Tartrate (Lopressor -) 25 mg PO BID [facility] Last Admin: 12/21/19 21:39 Dose: 25 mg Documented by: Multivitamins/Minerals/Vitamin C (Tab-A-Vit -) 1 tab PO DAILY [facility] Last Admin: 12/21/19 09:41 Dose: 1 tab Documented by: Pantoprazole Sodium (Protonix Iv) 40 mg IVPUSH DAILY [facility] Last Admin: 12/21/19 09:41 Dose: 40 mg Documented by: - Objective Vital Signs: Vital Signs Temperature 97.5 F L 12/22/19 06:00 Pulse Rate 89 12/22/19 08:00 Respiratory Rate 20 12/22/19 08:37 Blood Pressure 104/63 12/22/19 08:00 O2 Sat by Pulse Oximetry (%) 95 12/22/19 08:37 Cardiovascular: Yes: Regular Rate and Rhythm Respiratory: Yes: Intubated, Mechanically Ventilated, Rhonchi Gastrointestinal: Yes: Soft, Hypoactive Bowel Sounds Genitourinary: Yes: Hilario Present Edema: Yes Edema: LLE: Trace, RLE: Trace Integumentary: Yes: Venous Stasis Changes Labs: CBC, BMP 12/22/19 06:00 12/22/19 06:00 INR, PTT INR 1.34 (0.83-1.09) H 12/16/19 18:40 - ....Imaging Chest X-ray: Report Reviewed (Right lung effusion) EKG: Report Reviewed (Tele: [facility] with [facility]) Problem List - Problems (1) Congestive heart failure (CHF) Code(s): I50.9 - HEART FAILURE, UNSPECIFIED Qualifiers: Heart failure type: diastolic Heart failure chronicity: acute on chronic Qualified Code(s): I50.33 - Acute on chronic diastolic (congestive) heart failure (2) Pneumonia Code(s): J18.9 - PNEUMONIA, UNSPECIFIED ORGANISM Qualifiers: Pneumonia type: due to unspecified organism Laterality: right Lung location: lower lobe of lung Qualified Code(s): J18.9 - Pneumonia, unspecified organism (3) Acute on chronic diastolic (congestive) heart failure Code(s): I50.33 - ACUTE ON CHRONIC DIASTOLIC (CONGESTIVE) HEART FAILURE (4) Acute respiratory failure with hypoxia and hypercarbia Code(s): J96.01 - ACUTE RESPIRATORY FAILURE WITH HYPOXIA; J96.02 - ACUTE RESPIRATORY FAILURE WITH HYPERCAPNIA (5) Atrial fibrillation Code(s): I48.91 - UNSPECIFIED ATRIAL FIBRILLATION Qualifiers: Atrial fibrillation type: paroxysmal Qualified Code(s): I48.0 - Paroxysmal atrial fibrillation (6) COPD (chronic obstructive pulmonary disease) Code(s): J44.9 - CHRONIC OBSTRUCTIVE PULMONARY DISEASE, UNSPECIFIED Qualifiers: COPD type: unspecified COPD Qualified Code(s): J44.9 - Chronic obstructive pulmonary disease, unspecified (7) Hypertension Code(s): I10 - ESSENTIAL (PRIMARY) HYPERTENSION Qualifiers: Hypertension type: essential hypertension Qualified Code(s): I10 - Essential (primary) hypertension (8) Lymphedema of both lower extremities Code(s): I89.0 - LYMPHEDEMA, NOT ELSEWHERE CLASSIFIED (9) Pleural effusion Code(s): J90 - PLEURAL EFFUSION, NOT ELSEWHERE CLASSIFIED Assessment/Plan 10/26/2017 Normal LV size with mild LVH, normal LV fxn, normal RV size and fxn, mild LAE, mild MR, mild-mod TR, mild MS, RVSP 43 mmHg 11/19/2016 Lexiscan Myoview: Apical ischemia, LVEF 45-52% 10/06/2016 Echocardiography revealed mild to moderate LV systolic dysfunction, moderate TR, RVSP of 30-40 mmH 1. Acute on chronic Hypoxic and Hypercapneic Respiratory Failure 2. Acute on chronic LV Diastolic Heart Failure with pleural effusion 3. R/o PNA, septic shock 4. Paroxysmal atrial fibrillation with periods of rapid ventricular response post DCCV in SR, [id number] score of 2 5. Obstructive Sleep Apnea/Obesity Hypoventilation Syndrome with dental appliance 6. HTN/HCVD 7. Hypercholesterolemia 8. CAD angina pectoris 9. Bilateral cellulitis with h/o abscess s/p debridement 10. Bilateral hydrocele 11. MONIE due to hemodynamic alterations 12. PVC Plan: 1. Vent management per ABG, sedation for vent synchrony, COVID 19 negative 2. Diuretics held with monitor diuretic response, renal fxn and electrolytes, repleted K, lisinopril 2.5 qd held pending renal recovery 3. Resume Lopressor 25 mg BID and Eliquis 5 bid as hemodynamics tolerate, d/c concomitant ASA 81 qd as patient does not have active CAD 4. Empiric abx on cefepime per ID 5. Enteral feeds, DVT and GI prophylaxis 6. Wean Levophed to maintain MAP>65 mmHg 7. F/u echo results
[2019-12-22] MEDS: ASCORBIC ACID 500 MG TABLET (FP) PO SCH (09:51)
[2019-12-22] MEDS: APIXABAN 5 MG TABLET PO SCH ×2 (09:51→21:30)
[2019-12-22] MEDS: PANTOPRAZOLE SODIUM 40 MG VIAL IVPUSH SCH (09:52)
[2019-12-22] MEDS: METOPROLOL TARTRATE 25 MG TABLET (FP) PO SCH ×2 (09:54→21:30)
[2019-12-22] MEDS: MULTIVITAMINS (DAILY MVI) TABLET (FP) PO SCH (09:54)
[2019-12-22] MEDS: BUDESONIDE/FORMETEROL FUMARATE 80/4.5 mcg INHALER IH SCH ×2 (11:22→21:30)
--- NOTE | 2019-12-22 12:09 | PN ---
Physical Exam: SUBJECTIVE: Patient seen and examined OBJECTIVE: Vital Signs Period Temp Pulse Resp BP Sys/Clements Pulse Ox Last 24 Hr 97.5 F-99.4 F 80-96 20-20 87-132/53-73 91-95 GENERAL: sedated, vented EYES: Pupils equal, round and reactive to light, extraocular movements intact, sclera anicteric, conjunctiva clear. No lid lag. EARS, NOSE, THROAT: dry, mucous membranes. LUNGS: Breath sounds equal, clear to auscultation bilaterally. No wheezes, and no crackles. on Vent HEART: Regular rate and rhythm, normal S1 and S2 without murmur, rub or gallop. ABDOMEN: Soft, nontender, not distended, normoactive bowel sounds, no guarding, no rebound, no masses. UPPER EXTREMITIES: 2+ pulses, warm, well-perfused. No cyanosis. No peripheral edema. LOWER EXTREMITIES: 2+ pulses, warm, well-perfused. No calf tenderness. No peripheral edema. SKIN: Warm, dry, normal turgor, no rashes or lesions noted. Laboratory Results - last 24 hr 12/21/19 12/21/19 12/22/19 19:00 19:50 06:00 WBC 10.2 H RBC 7.57 H Hgb 17.4 H Hct 60.0 H MCV 79.3 L MCH 23.0 L MCHC 29.0 L RDW 23.3 H Plt Count 90 L MPV 9.1 Anticoagulation Therapy No Result Required. Puncture Site Arterial line Patient Temperature No Result Required. ABG pH 7.474 H ABG pCO2 50.80 H ABG pO2 68.5 L ABG HCO3 36.5 H ABG O2 Sat (Measured) 94.5 L ABG O2 Content No Result Required. ABG Base Excess 10.6 H Ye Test No Result Required. Patient On Oxygen Yes O2 Delivery Device Ltv Oxygen Flow Rate 100 Vent Mode A/c Vent Rate 20 Mechanical Rate No Result Required. PEEP 10.0 Pressure Support Vent No Result Required. Sodium 136 Potassium 3.1 L Chloride 86 L Carbon Dioxide 42 H Anion Gap 8 BUN 37.3 H Creatinine 1.6 H Est GFR (CKD-EPI)AfAm 51.27 Est GFR (CKD-EPI)NonAf 44.24 Random Glucose 139 H Calcium 8.2 L Phosphorus Magnesium Total Bilirubin AST ALT Alkaline Phosphatase Total Protein Albumin 12/22/19 12/22/19 06:00 06:00 WBC RBC Hgb Hct MCV MCH MCHC RDW Plt Count MPV Anticoagulation Therapy No Result Required. Puncture Site Arterial line Patient Temperature No Result Required. ABG pH 7.457 H ABG pCO2 52.60 H ABG pO2 69.4 L ABG HCO3 36.3 H ABG O2 Sat (Measured) 94.5 L ABG O2 Content No Result Required. ABG Base Excess 10.0 H Ye Test Not applicable Patient On Oxygen Yes O2 Delivery Device Vent Oxygen Flow Rate 100% Vent Mode A/c Vent Rate 20 Mechanical Rate No Result Required. PEEP 10.0 Pressure Support Vent 450 Sodium 136 Potassium 3.7 Chloride 88 L Carbon Dioxide 41 H Anion Gap 8 BUN 43.8 H Creatinine 1.6 H Est GFR (CKD-EPI)AfAm 51.27 Est GFR (CKD-EPI)NonAf 44.24 Random Glucose 139 H Calcium 8.3 L Phosphorus 4.3 Magnesium 2.2 Total Bilirubin 2.4 H AST 30 ALT 14 Alkaline Phosphatase 83 Total Protein 6.0 L Albumin 2.0 L Active Medications Generic Name Dose Route Start Last Admin Trade Name Freq PRN Reason Stop Dose Admin Amino Acids 30 ml 12/21/19 17:30 12/21/19 17:59 Prosource No Carb Liquid Pkt PO 30 ml BID@0800,1730 [facility] Administration Apixaban 5 mg 12/16/19 22:00 12/22/19 09:51 Eliquis - PO 5 mg BID [facility] Administration Ascorbic Acid 1,000 mg 12/17/19 10:00 12/22/19 09:51 Vitamin C - PO 1,000 mg DAILY [facility] Administration Budesonide/Formoterol Fumarate 2 puff 12/16/19 22:00 12/22/19 11:22 Symbicort 80/4.5mcg - IH Not Given BID [facility] Propofol 1,000,000 mcg in 100 mls @ 3.266 mls/hr 12/17/19 04:30 12/22/19 11:22 Diprivan - IVPB 20 mcg/kg/min TITR [facility] 13.063 mls/hr Administration Protocol 5 MCG/KG/MIN Cefepime HCl 1 gm/ Dextrose 100 mls @ 100 mls/hr 12/18/19 11:15 12/22/19 10:02 IVPB 100 mls/hr Q8H-IV [facility] Administration Protocol Norepinephrine Bitartrate 16,000 mcg in 500 mls @ 9.375 mls/hr 12/21/19 06:45 12/22/19 06:45 Levophed Bag IVPB Not Given TITR [facility] Protocol 5 MCG/MIN Midazolam HCl 100 mg in 100 mls @ 1 mls/hr 12/22/19 08:00 12/22/19 07:00 Midazolam 100mg/100ml-0.9%Nacl IVPB 10 mg/hr TITR [facility] 10 mls/hr Administration Protocol 1 MG/HR Metoprolol Tartrate 25 mg 12/19/19 12:00 12/22/19 09:54 Lopressor - PO 25 mg BID [facility] Administration Multivitamins/Minerals/Vitamin C 1 tab 12/17/19 10:00 12/22/19 09:54 Tab-A-Vit - PO 1 tab DAILY [facility] Administration Pantoprazole Sodium 40 mg 12/19/19 10:00 12/22/19 09:52 Protonix Iv IVPUSH 40 mg DAILY [facility] Administration ASSESSMENT/PLAN: 64 year old male with a past medical history of HTN, HLD, JUANA (not using CPAP), COPD, GERD, systolic congestive heart failure, paroxysmal atrial fibrillation (on Eliquis, s/p cardioversion 11/2016) who presented with 3 weeks of gradual onset anasarca, scrotal swelling and mild shortness of breath worse on exertion, found to have right lobe PNA, fluid overload, bilateral lower extremity cellul itis and bilateral hydrocele, and respiratory acidosis is admitted for Acute hypercapneic respiratory failure and Acute CHF exacerbation #Neuro Pt sedated and vented Propofol 20, versed 10 #CV Fluid Overload 2/2 sCHF exacerbation, CXR- with small right and left pleural effusion monitor renal studies, electrolytes, strict I&O's and daily weights Clinical signs of severe volume overload- anasarca, b/l LE edema, crackles on b/l lungs Cardiology following on lisinopril and metoprolol Lasix 80 TID held due to low BP Pt on eliquis ASA d/rodriguez On NE 10 One dose Actazolamide given as ABG showed mild alkalosis 7.45/52/69/36 #Pulm Acute hypercapneic resp failure 2/2 to Community acquired pneumonia vs COPD exacerbation CXR- right mid and lower lung and left lung base pneumonia ABG showed 7.47/54/88/39.4 AC 20/450/100/10 Plat 21, PIP 27 vented SvO2 measurement pending- if low, then can consider cardiogenic shock, can start dobutamine #ID Bilateral Lower Extremity Cellulitis Cefepime D5 ID consulted #Renal stable renal function appropriate Hold Lasix for now as BP are low gave one dose of acetazolamide #GI Anasarca cont diuresis #Heme monitor Thrombocytopenia #DVT ppx On eliquis #GI ppx protonix Lines LUE A-line 12/20 RIJ 12/18 FEN monitor lytes Fluid restrictions cont feeds Aspiration risk Dispo: cont abx, monitor I&Os, hold lasix for now Mothers # [phone] -cell, -Home Attempted to notify and contact pt's mother/ as per chart, unable to reach. Will continue trying Visit type - Emergency Visit Emergency Visit: Yes ED Registration Date: 12/16/19 Care time: The patient presented to the Emergency Department on the above date and was hospitalized for further evaluation of their emergent condition. - New Patient This patient is new to me today: Yes Date on this admission: 01/03/20 - Critical Care Critical Care patient: No - Discharge Referral Referred to [facility] Med P.C.: No ATTENDING PHYSICIAN STATEMENT I saw and evaluated the patient. I reviewed the resident's note and discussed the case with the resident. I agree with the resident's findings and plan as documented. SUBJECTIVE: OBJECTIVE: ASSESSMENT AND PLAN:
[2019-12-22 12:44] LABS: VENOUS O2 SATURATION 88.7 % (70-80); VENOUS PCO2 50.5 mmHg (38-52); VENOUS PH 7.48 (7.310-7.410)
[2019-12-22 12:45] LABS: VENOUS BASE EXCESS 11.1 mmol/L (-2-2)
--- NOTE | 2019-12-22 12:45 | PN ---
Teaching Attending Note Name of Resident: Justin Cardona ATTENDING PHYSICIAN STATEMENT I saw and evaluated the patient. I reviewed the resident's note and discussed the case with the resident. I agree with the resident's findings and plan as documented. SUBJECTIVE: Patient seen and examined in the ICU. Intubated and sedated. AC Mode of vent, 100% FiO2. Remains on NE @ 10 mcq for hemodynamic support. Intake & Output 12/19/19 12/20/19 12/21/19 12/22/19 23:59 23:59 23:59 23:59 Intake Total 1333 1050 1195 480 Output Total 4275 6400 1925 700 Balance -2942 -5350 -730 -220 Weight 251 lb 5.231 oz 258 lb 247 lb 247 lb Last Vital Signs Temp Pulse Resp BP Pulse Ox 97.5 F L 91 H 20 132/73 95 12/22/19 06:00 12/22/19 10:20 12/22/19 11:42 12/22/19 10:20 12/22/19 11:44 Active Medications Amino Acids (Prosource No Carb Liquid Pkt) 30 ml PO BID@0800,1730 [facility] Last Admin: 12/21/19 17:59 Dose: 30 ml Documented by: Apixaban (Eliquis -) 5 mg PO BID [facility] Last Admin: 12/22/19 09:51 Dose: 5 mg Documented by: Ascorbic Acid (Vitamin C -) 1,000 mg PO DAILY [facility] Last Admin: 12/22/19 09:51 Dose: 1,000 mg Documented by: Budesonide/Formoterol Fumarate (Symbicort 80/4.5mcg -) 2 puff IH BID [facility] Last Admin: 12/22/19 11:22 Dose: Not Given Documented by: Chlorhexidine Gluconate (Peridex -) 15 ml MM BID [facility] Propofol (Diprivan -) 1,000,000 mcg in 100 mls @ 3.266 mls/hr IVPB TITR [facility]; Protocol Last Admin: 12/22/19 11:22 Dose: 20 mcg/kg/min, 13.063 mls/hr Documented by: Cefepime HCl 1 gm/ Dextrose 100 mls @ 100 mls/hr IVPB Q8H-IV [facility]; Protocol Last Admin: 12/22/19 10:02 Dose: 100 mls/hr Documented by: Norepinephrine Bitartrate (Levophed Bag) 16,000 mcg in 500 mls @ 9.375 mls/hr IVPB TITR [facility]; Protocol Last Admin: 12/22/19 06:45 Dose: Not Given Documented by: Midazolam HCl (Midazolam 100mg/100ml-0.9%Nacl) 100 mg in 100 mls @ 1 mls/hr IVPB TITR [facility]; Protocol Last Admin: 12/22/19 07:00 Dose: 10 mg/hr, 10 mls/hr Documented by: Metoprolol Tartrate (Lopressor -) 25 mg PO BID [facility] Last Admin: 12/22/19 09:54 Dose: 25 mg Documented by: Multivitamins/Minerals/Vitamin C (Tab-A-Vit -) 1 tab PO DAILY [facility] Last Admin: 12/22/19 09:54 Dose: 1 tab Documented by: Pantoprazole Sodium (Protonix Iv) 40 mg IVPUSH DAILY [facility] Last Admin: 12/22/19 09:52 Dose: 40 mg Documented by: PE: GEN: Intubated and sedated HEENT: (-) Pallor, anicteric PULM: Vented, Bibasilar crackles CV: nml S1, S2, RR, unable to appreciate any G/R/M ABD: (+) BS, S/S N/T EXT: + Pulses, WWP X4, +3 pedal Edema [employer]OYMENT RECR[employer]ITER: sedated Laboratory Results - last 24 hr 12/21/19 12/21/19 12/22/19 19:00 19:50 06:00 WBC 10.2 H RBC 7.57 H Hgb 17.4 H Hct 60.0 H MCV 79.3 L MCH 23.0 L MCHC 29.0 L RDW 23.3 H Plt Count 90 L MPV 9.1 Anticoagulation Therapy No Result Required. Puncture Site Arterial line Patient Temperature No Result Required. ABG pH 7.474 H ABG pCO2 50.80 H ABG pO2 68.5 L ABG HCO3 36.5 H ABG O2 Sat (Measured) 94.5 L ABG O2 Content No Result Required. ABG Base Excess 10.6 H Ye Test No Result Required. Patient On Oxygen Yes O2 Delivery Device Ltv Oxygen Flow Rate 100 Vent Mode A/c Vent Rate 20 Mechanical Rate No Result Required. PEEP 10.0 Pressure Support Vent No Result Required. Sodium 136 Potassium 3.1 L Chloride 86 L Carbon Dioxide 42 H Anion Gap 8 BUN 37.3 H Creatinine 1.6 H Est GFR (CKD-EPI)AfAm 51.27 Est GFR (CKD-EPI)NonAf 44.24 Random Glucose 139 H Calcium 8.2 L Phosphorus Magnesium Total Bilirubin AST ALT Alkaline Phosphatase Total Protein Albumin 12/22/19 12/22/19 06:00 06:00 WBC RBC Hgb Hct MCV MCH MCHC RDW Plt Count MPV Anticoagulation Therapy No Result Required. Puncture Site Arterial line Patient Temperature No Result Required. ABG pH 7.457 H ABG pCO2 52.60 H ABG pO2 69.4 L ABG HCO3 36.3 H ABG O2 Sat (Measured) 94.5 L ABG O2 Content No Result Required. ABG Base Excess 10.0 H Ye Test Not applicable Patient On Oxygen Yes O2 Delivery Device Vent Oxygen Flow Rate 100% Vent Mode A/c Vent Rate 20 Mechanical Rate No Result Required. PEEP 10.0 Pressure Support Vent 450 Sodium 136 Potassium 3.7 Chloride 88 L Carbon Dioxide 41 H Anion Gap 8 BUN 43.8 H Creatinine 1.6 H Est GFR (CKD-EPI)AfAm 51.27 Est GFR (CKD-EPI)NonAf 44.24 Random Glucose 139 H Calcium 8.3 L Phosphorus 4.3 Magnesium 2.2 Total Bilirubin 2.4 H AST 30 ALT 14 Alkaline Phosphatase 83 Total Protein 6.0 L Albumin 2.0 L ASSESS: Acute Respiratory Failure due to CHF Suspected combined Septic & Cardiogenic shock R/O PNA HTN HLD JUANA (not using CPAP) OHS COPD GERD Systolic congestive heart failure Paroxysmal atrial fibrillation (on Eliquis, s/p cardioversion 11/2016) MONIE PLAN: -Pressors to maintain MAP > 65 -Check SVO2 saturation -LTVV for plat <30 -Maintain O2 sat >92% -Hold diuresis for now -Renal evaluation noted -Sedation for vent synchrony -Maintain MAP>65 -Rate control -Monitor UOP and BMP -Replete electrolytes -Cont empiric antibiotics for CAP coverage -F/u cultures -Enteral feeds -cont Eliquis -GI proph Dr Gab Sanz Critical care time spent in reviewing chart, evaluating patient and formulating plan - 36 minutes.
--- NOTE | 2019-12-22 13:49 | PN ---
Progress Note, Physician History of Present Illness: Pt seen and examined at bedside. he remains in the ICU. He remains intubated. Vent setting reviewed. He is making urine. - Current Medication List Current Medications: Active Medications Amino Acids (Prosource No Carb Liquid Pkt) 30 ml PO BID@0800,1730 [facility] Last Admin: 12/21/19 17:59 Dose: 30 ml Documented by: Apixaban (Eliquis -) 5 mg PO BID [facility] Last Admin: 12/22/19 09:51 Dose: 5 mg Documented by: Ascorbic Acid (Vitamin C -) 1,000 mg PO DAILY [facility] Last Admin: 12/22/19 09:51 Dose: 1,000 mg Documented by: Budesonide/Formoterol Fumarate (Symbicort 80/4.5mcg -) 2 puff IH BID [facility] Last Admin: 12/22/19 11:22 Dose: Not Given Documented by: Chlorhexidine Gluconate (Peridex -) 15 ml MM BID [facility] Propofol (Diprivan -) 1,000,000 mcg in 100 mls @ 3.266 mls/hr IVPB TITR [facility]; Protocol Last Admin: 12/22/19 11:22 Dose: 20 mcg/kg/min, 13.063 mls/hr Documented by: Cefepime HCl 1 gm/ Dextrose 100 mls @ 100 mls/hr IVPB Q8H-IV [facility]; Protocol Last Admin: 12/22/19 10:02 Dose: 100 mls/hr Documented by: Norepinephrine Bitartrate (Levophed Bag) 16,000 mcg in 500 mls @ 9.375 mls/hr IVPB TITR [facility]; Protocol Last Admin: 12/22/19 06:45 Dose: Not Given Documented by: Midazolam HCl (Midazolam 100mg/100ml-0.9%Nacl) 100 mg in 100 mls @ 1 mls/hr IVPB TITR [facility]; Protocol Last Admin: 12/22/19 07:00 Dose: 10 mg/hr, 10 mls/hr Documented by: Metoprolol Tartrate (Lopressor -) 25 mg PO BID [facility] Last Admin: 12/22/19 09:54 Dose: 25 mg Documented by: Multivitamins/Minerals/Vitamin C (Tab-A-Vit -) 1 tab PO DAILY [facility] Last Admin: 12/22/19 09:54 Dose: 1 tab Documented by: Pantoprazole Sodium (Protonix Iv) 40 mg IVPUSH DAILY [facility] Last Admin: 12/22/19 09:52 Dose: 40 mg Documented by: - Objective Vital Signs: Vital Signs Temperature 97.5 F L 12/22/19 06:00 Pulse Rate 92 H 12/22/19 12:00 Respiratory Rate 12/22/19 12:00 Blood Pressure 145/73 12/22/19 12:00 O2 Sat by Pulse Oximetry (%) 95 12/22/19 11:44 Constitutional: Yes: Calm Eyes: Yes: Conjunctiva Clear HENT: Yes: Atraumatic Neck: Yes: Supple Cardiovascular: Yes: S1, S2 Respiratory: Yes: Mechanically Ventilated Gastrointestinal: Yes: Soft, Abdomen, Obese Genitourinary: Yes: Hilario Present Musculoskeletal: Yes: Muscle Weakness Edema: Yes Edema: LLE: Trace, RLE: Trace Integumentary: Yes: Venous Stasis Changes Neurological: Yes: Lethargy Labs: CBC, BMP 12/22/19 06:00 12/22/19 06:00 INR, PTT INR 1.34 (0.83-1.09) H 12/16/19 18:40 - ....Imaging Chest X-ray: Report Reviewed Problem List - Problems (1) Anasarca Code(s): R60.1 - GENERALIZED EDEMA (2) Congestive heart failure (CHF) Code(s): I50.9 - HEART FAILURE, UNSPECIFIED Qualifiers: Heart failure type: diastolic Heart failure chronicity: acute on chronic Qualified Code(s): I50.33 - Acute on chronic diastolic (congestive) heart failure (3) Acute kidney injury Code(s): N17.9 - ACUTE KIDNEY FAILURE, UNSPECIFIED Assessment/Plan Current Medications Generic Name Dose Route Start Last Admin Trade Name Freq PRN Reason Stop Dose Admin Amino Acids 30 ml 12/21/19 17:30 12/21/19 17:59 Prosource No Carb Liquid Pkt PO 30 ml BID@0800,1730 [facility] Administration Apixaban 5 mg 12/16/19 22:00 12/22/19 09:51 Eliquis - PO 5 mg BID [facility] Administration Ascorbic Acid 1,000 mg 12/17/19 10:00 12/22/19 09:51 Vitamin C - PO 1,000 mg DAILY [facility] Administration Budesonide/Formoterol Fumarate 2 puff 12/16/19 22:00 12/22/19 11:22 Symbicort 80/4.5mcg - IH Not Given BID [facility] Chlorhexidine Gluconate 15 ml 12/22/19 12:30 Peridex - MM BID [facility] Propofol 1,000,000 mcg in 100 mls @ 3.266 mls/hr 12/17/19 04:30 12/22/19 11:22 Diprivan - IVPB 20 mcg/kg/min TITR [facility] 13.063 mls/hr Administration Protocol 5 MCG/KG/MIN Cefepime HCl 1 gm/ Dextrose 100 mls @ 100 mls/hr 12/18/19 11:15 12/22/19 10:02 IVPB 100 mls/hr Q8H-IV [facility] Administration Protocol Norepinephrine Bitartrate 16,000 mcg in 500 mls @ 9.375 mls/hr 12/21/19 06:45 12/22/19 06:45 Levophed Bag IVPB Not Given TITR [facility] Protocol 5 MCG/MIN Midazolam HCl 100 mg in 100 mls @ 1 mls/hr 12/22/19 08:00 12/22/19 07:00 Midazolam 100mg/100ml-0.9%Nacl IVPB 10 mg/hr TITR [facility] 10 mls/hr Administration Protocol 1 MG/HR Metoprolol Tartrate 25 mg 12/19/19 12:00 12/22/19 09:54 Lopressor - PO 25 mg BID [facility] Administration Multivitamins/Minerals/Vitamin C 1 tab 12/17/19 10:00 12/22/19 09:54 Tab-A-Vit - PO 1 tab DAILY [facility] Administration Pantoprazole Sodium 40 mg 12/19/19 10:00 12/22/19 09:52 Protonix Iv IVPUSH 40 mg DAILY [facility] Administration Impression 1. MONIE 2. CHF acute 3. acute resp failure requiring intubation 4. atrial fibrillation 5. hx of htn 6. obesity 7. chronic smoker 8. hypokalemia Plan - lasix held today, can give one dose of diamox and observe - repeat labs in am - potassium improved - corporate trainer unchanged - cont vent support - monitor urine output - repeat abg in am - discussed with ICU team - edema is improved - avoid contraction alkalosis - hold areli for now - monitor volume status
--- NOTE | 2019-12-22 14:38 | ECHO ---
Name: WHITNEY MILLER Exam:Adult Echocardiogram Study Date: 12/22/2019 01:37 PM Age: 64 yrs Reason For Study: LV Function Height: 69 in Weight: 247 lb BSA: 2.3 m2 MMode/2D Measurements & Calculations RVDd: 4.1 cm Ao root diam: 3.5 cm IVSd: 0.90 cm LA dimension: 3.0 cm LVIDd: 5.0 cm ACS: 2.0 cm LVIDs: 3.2 cm LVPWd: 0.95 cm EDV(Teich): 115.8 ml LVOT diam: 2.0 cm ESV(Teich): 39.8 ml TAPSE: 1.5 cm RV S Cody: 7.9 cm/sec Doppler Measurements & Calculations MV E max cody: 40.1 cm/sec Ao V2 max: 114.0 cm/sec MV A max cody: 55.5 cm/sec Ao max P.2 mmHg MV E/A: 0.72 Ao V2 mean: 76.9 cm/sec MV dec time: 0.35 sec Ao mean P.7 mmHg Ao V2 VTI: 18.1 cm CAROLINA(I,D): 3.6 cm2 CAROLINA(V,D): 3.3 cm2 LV V1 max P.1 mmHg SV(LVOT): 65.8 ml LV V1 mean P.4 mmHg LV V1 max: 112.9 cm/sec LV V1 mean: 72.7 cm/sec LV V1 VTI: 20.0 cm TR max cody: 311.7 cm/sec PA V2 max: 127.6 cm/sec TR max P.1 mmHg PA max P.5 mmHg PA acc slope: 886.4 cm/sec2 PA acc time: 0.12 sec Med Peak E' Cody: 6.0 cm/sec PA pr(Accel): 25.1 mmHg Med E/e': 6.7 Lat Peak E' Cody: 8.6 cm/sec Lat E/e': 4.7 Tech Comments TDS. Patient intubated. Procedure A complete two-dimensional transthoracic echocardiogram was performed (2D, M-mode, Doppler and color flow Doppler). The study was technically difficult with many images being suboptimal in quality. Left Ventricle The left ventricular size, thickness and function are normal. Ejection Fraction = 60-65%. No regional wall motion abnormalities noted. Right Ventricle The right ventricle is mildly dilated. The right ventricular systolic function is normal. Atria Normal left and right atrial size and function. Mitral Valve There is no mitral regurgitation noted. Tricuspid Valve There is mild tricuspid regurgitation. There is mild pulmonary hypertension. Aortic Valve No hemodynamically significant valvular aortic stenosis. No aortic regurgitation is present. Pulmonic Valve There is no pulmonic valvular regurgitation. Great Vessels The aortic root is normal size. Pericardium/Pleura There is no pericardial effusion. Interpretation Summary The study was technically difficult with many images being suboptimal in quality. The left ventricular size, thickness and function are normal The right ventricle is mildly dilated. The right ventricular systolic function is normal. There is mild tricuspid regurgitation. There is mild pulmonary hypertension. MD Kali Winters 12/22/2019 02:37 PM
--- NOTE | 2019-12-22 15:57 | PN ---
Progress Note, Physician History of Present Illness: continues to be intubated still not able to be extubated - Current Medication List Current Medications: Active Medications Amino Acids (Prosource No Carb Liquid Pkt) 30 ml PO BID@0800,1730 [facility] Last Admin: 12/21/19 17:59 Dose: 30 ml Documented by: Apixaban (Eliquis -) 5 mg PO BID [facility] Last Admin: 12/22/19 09:51 Dose: 5 mg Documented by: Ascorbic Acid (Vitamin C -) 1,000 mg PO DAILY [facility] Last Admin: 12/22/19 09:51 Dose: 1,000 mg Documented by: Budesonide/Formoterol Fumarate (Symbicort 80/4.5mcg -) 2 puff IH BID [facility] Last Admin: 12/22/19 11:22 Dose: Not Given Documented by: Chlorhexidine Gluconate (Peridex -) 15 ml MM BID [facility] Propofol (Diprivan -) 1,000,000 mcg in 100 mls @ 3.266 mls/hr IVPB TITR [facility]; Protocol Last Admin: 12/22/19 11:22 Dose: 20 mcg/kg/min, 13.063 mls/hr Documented by: Cefepime HCl 1 gm/ Dextrose 100 mls @ 100 mls/hr IVPB Q8H-IV [facility]; Protocol Last Admin: 12/22/19 10:02 Dose: 100 mls/hr Documented by: Norepinephrine Bitartrate (Levophed Bag) 16,000 mcg in 500 mls @ 9.375 mls/hr IVPB TITR [facility]; Protocol Last Titration: 12/22/19 15:48 Dose: 10 mcg/min, 18.75 mls/hr Documented by: Midazolam HCl (Midazolam 100mg/100ml-0.9%Nacl) 100 mg in 100 mls @ 1 mls/hr IVPB TITR [facility]; Protocol Last Admin: 12/22/19 07:00 Dose: 10 mg/hr, 10 mls/hr Documented by: Metoprolol Tartrate (Lopressor -) 25 mg PO BID [facility] Last Admin: 12/22/19 09:54 Dose: 25 mg Documented by: Multivitamins/Minerals/Vitamin C (Tab-A-Vit -) 1 tab PO DAILY [facility] Last Admin: 12/22/19 09:54 Dose: 1 tab Documented by: Pantoprazole Sodium (Protonix Iv) 40 mg IVPUSH DAILY [facility] Last Admin: 12/22/19 09:52 Dose: 40 mg Documented by: - Objective Vital Signs: Vital Signs Temperature 97.8 F 12/22/19 14:00 Pulse Rate 87 12/22/19 14:00 Respiratory Rate 20 12/22/19 15:30 Blood Pressure 79/57 L 12/22/19 14:00 O2 Sat by Pulse Oximetry (%) 96 12/22/19 15:30 Constitutional: Yes: No Distress, Calm Cardiovascular: Yes: S1, S2 Respiratory: Yes: Intubated, Mechanically Ventilated Gastrointestinal: Yes: Normal Bowel Sounds, Soft Musculoskeletal: Yes: WNL Extremities: Yes: WNL Labs: CBC, BMP 12/22/19 06:00 12/22/19 06:00 INR, PTT INR 1.34 (0.83-1.09) H 12/16/19 18:40 - ....Imaging Chest X-ray: Report Reviewed, Image Reviewed Assessment/Plan 64 year old male with a past medical history of HTN, HLD, JUANA (not using CPAP), COPD, GERD, systolic congestive heart failure, paroxysmal atrial fibrillation (on Eliquis, s/p cardioversion 11/2016) who presented with 3 weeks of gradual onset anasarca, scrotal swelling and mild shortness of breath worse on exertion. He as found to have a PNA, on clinical exam signs of fluid overload, ?bilateral lower extremity cellulitis and bilateral hydrocele. 1. Acute Respiratory Failure 2. Fluid Overload/ 3.Bilateral Lower Extremity Cellulitis 4. Hydrocele 5. Hypertension 6. Atrial Fibrillation 7. Elevated Troponin 8. Rule Out COVID 9 pna plan continue current mgmt will d/w the team abx rest as per the team resp support cc 38 min min
[2019-12-22] MEDS: CHLORHEXIDINE GLUCONATE 0.12% 15ML CUP MM SCH ×2 (16:15→21:30)
[2019-12-22] MEDS ORDERED: PT OWN MED DRAWER 7, Y5N ONE (16:29)
[2019-12-22] MEDS: AMINO ACIDS/PROTEIN HYDROLYS 30 ML LIQUID.PKT PO SCH (20:16)
[2019-12-23] MEDS ORDERED: DEXTROSE 5%-WATER 100 ML IVPB ONE ×3 (01:32→17:57)
[2019-12-23] MEDS ORDERED: CEFEPIME HCL 1 GM VIAL (RESTRICTED TO ID) ONE ×3 (01:32→17:57)
[2019-12-23] MEDS: CEFEPIME 1 GM in DEXTROSE 5%-WATER 100 ML IVPB SCH ×3 (01:33→18:23)
[2019-12-23 06:25] LABS: ARTERIAL BLD GAS O2 SATURATION 98.6 mmHg (95-98); ARTERIAL BLOOD GAS BASE EXCESS 9.7 mmol/L (-2-2); ARTERIAL BLOOD GAS pH 7.414 (7.350-7.450)
[2019-12-23 06:29] LABS: VENT MODE A/C; VENT RATE 20
[2019-12-23] MEDS: PROPOFOL 1,000,000 MCG/100 ML VIAL IVPB SCH ×2 (06:49→15:33)
[2019-12-23] MEDS: NOREPINEPHRINE D5W PREMIX 16,000 MCG/500 ML BAG IVPB SCH (06:50)
[2019-12-23 07:06] LABS: HEMOGLOBIN 16.6 GM/dL (11.7-16.9); MCH 22.9 pg (25.7-33.7); MCHC 29.1 g/dl (32.0-35.9); MEAN CELL VOLUME 78.9 fl (80-96); MEAN PLT VOLUME 9.3 fl (7.5-11.1); PLATELET COUNT 81 K/MM3 (134-434); RDW 23.6 % (11.9-15.9); WHITE BLOOD COUNT 9.8 K/mm3 (4.0-10.0)
[2019-12-23 07:16] LABS: RBC 7.22 M/mm3 (4.00-5.60)
[2019-12-23 07:27] LABS: BILIRUBIN,TOTAL 1.9 mg/dL (0.2-1); BLOOD UREA NITROGEN 47.4 mg/dL (7-18); CALCIUM 8.4 mg/dL (8.5-10.1); CREATININE 1.2 mg/dL (0.55-1.3); MAGNESIUM 2.4 mg/dL (1.8-2.4); PHOSPHOROUS 4.3 mg/dL (2.5-4.9); POTASSIUM 3.2 mmol/L (3.5-5.1)
[2019-12-23] MEDS ORDERED: POTASSIUM CHLORIDE TABS 20 MEQ TABLET.ER (FP) PO ONE (08:02)
[2019-12-23] MEDS: AMINO ACIDS/PROTEIN HYDROLYS 30 ML LIQUID.PKT PO SCH ×2 (09:00→17:56)
[2019-12-23] MEDS: KCL 10 MEQ IVPB 10 MEQ/100 ML INFUS.BAG IVPB SCH ×3 (09:08→13:05)
[2019-12-23] MEDS: ASCORBIC ACID 500 MG TABLET (FP) PO SCH (09:11)
[2019-12-23] MEDS: CHLORHEXIDINE GLUCONATE 0.12% 15ML CUP MM SCH ×2 (09:11→21:17)
[2019-12-23] MEDS: MULTIVITAMINS (DAILY MVI) TABLET (FP) PO SCH (09:11)
[2019-12-23] MEDS: APIXABAN 5 MG TABLET PO SCH ×2 (09:11→21:23)
[2019-12-23] MEDS: PANTOPRAZOLE SODIUM 40 MG VIAL IVPUSH SCH (09:11)
[2019-12-23] MEDS: METOPROLOL TARTRATE 25 MG TABLET (FP) PO SCH ×2 (09:12→21:18)
[2019-12-23] MEDS: MIDAZOLAM IN 0.9 % SOD.CHLORID 100 MG/100 ML PLAST..BAG IVPB SCH ×2 (09:12→15:34)
--- NOTE | 2019-12-23 09:54 | PN ---
Progress Note (short form) - Note Progress Note: 4 year old male with a past medical history of HTN, HLD, JUANA (not using CPAP), COPD, GERD, congestive heart failure, paroxysmal atrial fibrillation (on Eliquis, s/p cardioversion 11/2016) who presented with 3 weeks of gradual onset anasarca, scrotal swelling and mild shortness of breath worse on exertion. CXR s/f diffused bilat opacities with c/f PNA +/-fluid overload, ?bilateral lower extremity cellulitis and bilateral hydrocele, and respiratory acidosis is admitted for Acute hypercapneic respiratory failure and Acute CHF exacerbation, intubated for progressive hypercarbic respiratory failure, decreased mental status on BiPAP. 12/22/2019 Remains intubated and sedated on AC Mode of vent, 100% FiO2. Now on NE @ 8 mcq for hemodynamic support. 12/22: Intubated, sedated, hemodynamically improved, off pressors, Echo: nl EF, mild PHTN Vital Signs Temperature 97.9 F 12/23/19 06:00 Pulse Rate 93 H 12/23/19 08:44 Respiratory Rate 12/23/19 08:44 Blood Pressure 128/70 12/23/19 08:44 O2 Sat by Pulse Oximetry (%) 94 L 12/23/19 08:44 Cardiovascular: Yes: Regular Rate and Rhythm Respiratory: Yes: Intubated, Mechanically Ventilated, Rhonchi Gastrointestinal: Yes: Soft, Hypoactive Bowel Sounds Genitourinary: Yes: Hilario Present Edema: Yes Edema: LLE: Trace, RLE: Trace Integumentary: Yes: Venous Stasis Changes Labs: CBC, BMP 12/23/19 05:00 12/23/19 05:00 Active Medications Amino Acids (Prosource No Carb Liquid Pkt) 30 ml PO BID@0800,1730 [facility] Last Admin: 12/23/19 09:00 Dose: 30 ml Documented by: Apixaban (Eliquis -) 5 mg PO BID [facility] Last Admin: 12/23/19 09:11 Dose: 5 mg Documented by: Ascorbic Acid (Vitamin C -) 1,000 mg PO DAILY [facility] Last Admin: 12/23/19 09:11 Dose: 1,000 mg Documented by: Budesonide/Formoterol Fumarate (Symbicort 80/4.5mcg -) 2 puff IH BID [facility] Last Admin: 12/22/19 21:30 Dose: Not Given Documented by: Chlorhexidine Gluconate (Peridex -) 15 ml MM BID [facility] Last Admin: 12/23/19 09:11 Dose: 15 ml Documented by: Propofol (Diprivan -) 1,000,000 mcg in 100 mls @ 3.266 mls/hr IVPB TITR [facility]; Protocol Last Admin: 12/23/19 06:49 Dose: 20 mcg/kg/min, 13.063 mls/hr Documented by: Cefepime HCl 1 gm/ Dextrose 100 mls @ 100 mls/hr IVPB Q8H-IV [facility]; Protocol Last Admin: 12/23/19 09:08 Dose: 100 mls/hr Documented by: Norepinephrine Bitartrate (Levophed Bag) 16,000 mcg in 500 mls @ 9.375 mls/hr IVPB TITR [facility]; Protocol Last Admin: 12/23/19 06:50 Dose: 10 mcg/min, 18.75 mls/hr Documented by: Midazolam HCl (Midazolam 100mg/100ml-0.9%Nacl) 100 mg in 100 mls @ 1 mls/hr IVPB TITR [facility]; Protocol Last Admin: 12/23/19 09:12 Dose: Not Given Documented by: Potassium Chloride (Potassium Chloride 10 Meq Premix Ivpb -) 10 meq in 100 mls @ 100 mls/hr IVPB Q60M [facility] Stop: 12/23/19 11:14 Last Admin: 12/23/19 09:08 Dose: 100 mls/hr Documented by: Metoprolol Tartrate (Lopressor -) 25 mg PO BID [facility] Last Admin: 12/23/19 09:12 Dose: Not Given Documented by: Multivitamins/Minerals/Vitamin C (Tab-A-Vit -) 1 tab PO DAILY [facility] Last Admin: 12/23/19 09:11 Dose: 1 tab Documented by: Pantoprazole Sodium (Protonix Iv) 40 mg IVPUSH DAILY [facility] Last Admin: 12/23/19 09:11 Dose: 40 mg Documented by: - ....Imaging Chest X-ray: Report Reviewed (Right lung effusion) EKG: Report Reviewed (Tele: NSR with PVC) Problem List - Problems (1) Congestive heart failure (CHF) Code(s): I50.9 - HEART FAILURE, UNSPECIFIED Qualifiers: Heart failure type: diastolic Heart failure chronicity: acute on chronic Qualified Code(s): I50.33 - Acute on chronic diastolic (congestive) heart failure (2) Pneumonia Code(s): J18.9 - PNEUMONIA, UNSPECIFIED ORGANISM Qualifiers: Pneumonia type: due to unspecified organism Laterality: right Lung locati on: lower lobe of lung Qualified Code(s): J18.9 - Pneumonia, unspecified organism (3) Acute on chronic diastolic (congestive) heart failure Code(s): I50.33 - ACUTE ON CHRONIC DIASTOLIC (CONGESTIVE) HEART FAILURE (4) Acute respiratory failure with hypoxia and hypercarbia Code(s): J96.01 - ACUTE RESPIRATORY FAILURE WITH HYPOXIA; J96.02 - ACUTE RESPIRATORY FAILURE WITH HYPERCAPNIA (5) Atrial fibrillation Code(s): I48.91 - UNSPECIFIED ATRIAL FIBRILLATION Qualifiers: Atrial fibrillation type: paroxysmal Qualified Code(s): I48.0 - Paroxysmal atrial fibrillation (6) COPD (chronic obstructive pulmonary disease) Code(s): J44.9 - CHRONIC OBSTRUCTIVE PULMONARY DISEASE, UNSPECIFIED Qualifiers: COPD type: unspecified COPD Qualified Code(s): J44.9 - Chronic obstructive pulmonary disease, unspecified (7) Hypertension Code(s): I10 - ESSENTIAL (PRIMARY) HYPERTENSION Qualifiers: Hypertension type: essential hypertension Qualified Code(s): I10 - Essential (primary) hypertension (8) Lymphedema of both lower extremities Code(s): I89.0 - LYMPHEDEMA, NOT ELSEWHERE CLASSIFIED (9) Pleural effusion Code(s): J90 - PLEURAL EFFUSION, NOT ELSEWHERE CLASSIFIED Assessment/Plan 10/26/2017 Normal LV size with mild LVH, normal LV fxn, normal RV size and fxn, mild LAE, mild MR, mild-mod TR, mild NC, RVSP 43 mmHg 11/19/2016 Lexiscan Myoview: Apical ischemia, LVEF 45-52% 10/06/2016 Echocardiography revealed mild to moderate LV systolic dysfunction, moderate TR, RVSP of 30-40 mmH 1. Acute on chronic Hypoxic and Hypercapneic Respiratory Failure 2. Acute on chronic LV Diastolic Heart Failure with pleural effusion: cor pulmonale 3. R/o PNA, septic shock 4. Paroxysmal atrial fibrillation with periods of rapid ventricular response post DCCV in SR, [id number] score of 2 5. Obstructive Sleep Apnea/Obesity Hypoventilation Syndrome with dental appli ance 6. HTN/HCVD 7. Hypercholesterolemia 8. CAD angina pectoris 9. Bilateral cellulitis with h/o abscess s/p debridement 10. Bilateral hydrocele 11. MONIE due to hemodynamic alterations 12. PVC Plan: Echo: Nl EF , mild pulmonary HTN Cor pulmonale 1. Vent management per ABG, sedation for vent synchrony, COVID 19 negative 2. Diuretics held with monitor diuretic response, renal fxn and electrolytes, repleted K, lisinopril 2.5 qd held pending renal recovery 3. started on Lopressor 25 mg BID and Eliquis 5 bid 4.Underlying COPD/Sepsis as per primary team
--- NOTE | 2019-12-23 11:43 | PN ---
Teaching Attending Note Name of Resident: Justin Cardona ATTENDING PHYSICIAN STATEMENT I saw and evaluated the patient. I reviewed the resident's note and discussed the case with the resident. I agree with the resident's findings and plan as documented. SUBJECTIVE: Patient seen and examined in the ICU. Intubated and sedated. AC Mode of vent, 100% FiO2. Remains on NE @ 10 mcq for hemodynamic support. Intake & Output 12/20/19 12/21/19 12/22/19 12/23/19 23:59 23:59 23:59 23:59 Intake Total 1050 1195 1205.6 1122.4 Output Total 6400 1925 1650 950 Balance -5350 -730 -444.4 172.4 Weight 258 lb 247 lb 247 lb 247 lb Last Vital Signs Temp Pulse Resp BP Pulse Ox 97.9 F 93 H 20 128/70 94 L 12/23/19 06:00 12/23/19 08:44 12/23/19 08:44 12/23/19 08:44 12/23/19 08:44 Active Medications Amino Acids (Prosource No Carb Liquid Pkt) 30 ml PO BID@0800,1730 [facility] Last Admin: 12/23/19 09:00 Dose: 30 ml Documented by: Apixaban (Eliquis -) 5 mg PO BID [facility] Last Admin: 12/23/19 09:11 Dose: 5 mg Documented by: Ascorbic Acid (Vitamin C -) 1,000 mg PO DAILY [facility] Last Admin: 12/23/19 09:11 Dose: 1,000 mg Documented by: Budesonide/Formoterol Fumarate (Symbicort 80/4.5mcg -) 2 puff IH BID [facility] Last Admin: 12/22/19 21:30 Dose: Not Given Documented by: Chlorhexidine Gluconate (Peridex -) 15 ml MM BID [facility] Last Admin: 12/23/19 09:11 Dose: 15 ml Documented by: Propofol (Diprivan -) 1,000,000 mcg in 100 mls @ 3.266 mls/hr IVPB TITR [facility]; Protocol Last Admin: 12/23/19 06:49 Dose: 20 mcg/kg/min, 13.063 mls/hr Documented by: Cefepime HCl 1 gm/ Dextrose 100 mls @ 100 mls/hr IVPB Q8H-IV [facility]; Protocol Last Admin: 12/23/19 09:08 Dose: 100 mls/hr Documented by: Norepinephrine Bitartrate (Levophed Bag) 16,000 mcg in 500 mls @ 9.375 mls/hr IVPB TITR [facility]; Protocol Last Admin: 12/23/19 06:50 Dose: 10 mcg/min, 18.75 mls/hr Documented by: Midazolam HCl (Midazolam 100mg/100ml-0.9%Nacl) 100 mg in 100 mls @ 1 mls/hr IVPB TITR [facility]; Protocol Last Admin: 12/23/19 09:12 Dose: Not Given Documented by: Metoprolol Tartrate (Lopressor -) 25 mg PO BID [facility] Last Admin: 12/23/19 09:12 Dose: Not Given Documented by: Multivitamins/Minerals/Vitamin C (Tab-A-Vit -) 1 tab PO DAILY [facility] Last Admin: 12/23/19 09:11 Dose: 1 tab Documented by: Pantoprazole Sodium (Protonix Iv) 40 mg IVPUSH DAILY [facility] Last Admin: 12/23/19 09:11 Dose: 40 mg Documented by: PE: GEN: Intubated and sedated HEENT: (-) Pallor, anicteric PULM: Vented, Bibasilar crackles CV: nml S1, S2, RR, unable to appreciate any G/R/M ABD: (+) BS, S/S N/T EXT: + Pulses, WWP X4, +3 pedal Edema [employer]: sedated Laboratory Results - last 24 hr 12/22/19 12/23/19 12/23/19 11:45 05:00 05:00 WBC 9.8 RBC 7.22 H Hgb 16.6 Hct 57.0 H MCV 78.9 L MCH 22.9 L MCHC 29.1 L RDW 23.6 H Plt Count 81 L MPV 9.3 Anticoagulation Therapy Puncture Site Patient Temperature ABG pH ABG pCO2 ABG pO2 ABG HCO3 ABG O2 Sat (Measured) ABG O2 Content ABG Base Excess Ye Test VBG pH 7.480 H POC VBG pCO2 50.5 POC VBG pO2 52.0 H VBG HCO3 36.9 H VBG O2 Sat (Francis) 88.7 H VBG Base Excess 11.1 H Patient On Oxygen O2 Delivery Device Oxygen Flow Rate Vent Mode Vent Rate Mechanical Rate PEEP Pressure Support Vent Sodium 136 Potassium 3.2 L Chloride 87 L Carbon Dioxide 44 H Anion Gap 5 L BUN 47.4 H Creatinine 1.2 Est GFR (CKD-EPI)AfAm 72.59 Est GFR (CKD-EPI)NonAf 62.63 Random Glucose 160 H Calcium 8.4 L Phosphorus 4.3 Magnesium 2.4 Total Bilirubin 1.9 H AST 26 ALT 13 Alkaline Phosphatase 93 Total Protein 6.0 L Albumin 2.0 L 12/23/19 05:20 WBC RBC Hgb Hct MCV MCH MCHC RDW Plt Count MPV Anticoagulation Therapy No Result Required. Puncture Site Arterial line Patient Temperature No Result Required. ABG pH 7.414 ABG pCO2 59.40 H ABG pO2 130.0 H ABG HCO3 37.1 H ABG O2 Sat (Measured) 98.6 H ABG O2 Content No Result Required. ABG Base Excess 9.7 H Ye Test Not applicable VBG pH POC VBG pCO2 POC VBG pO2 VBG HCO3 VBG O2 Sat (Francis) VBG Base Excess Patient On Oxygen Yes O2 Delivery Device Vent Oxygen Flow Rate 100% Vent Mode A/c Vent Rate 20 Mechanical Rate Yes PEEP 10.0 Pressure Support Vent 450 Sodium Potassium Chloride Carbon Dioxide Anion Gap BUN Creatinine Est GFR (CKD-EPI)AfAm Est GFR (CKD-EPI)NonAf Random Glucose Calcium Phosphorus Magnesium Total Bilirubin AST ALT Alkaline Phosphatase Total Protein Albumin ASSESS: Acute Respiratory Failure due to CHF Suspected combined Septic & Cardiogenic shock R/O PNA HTN HLD JUANA (not using CPAP) OHS COPD GERD Systolic congestive heart failure Paroxysmal atrial fibrillation (on Eliquis, s/p cardioversion 11/2016) MONIE PLAN: -Pressors to maintain MAP > 65 -LTVV for plat <30 -Maintain O2 sat >92% -Hold diuresis -Sedation for vent synchrony -Rate control -Monitor UOP and BMP -Replete electrolytes -Cont empiric antibiotics for CAP coverage -F/u cultures -Enteral feeds -cont Eliquis -GI proph -Requires ICU monitoring Dr Gab Sanz Critical care time spent in reviewing chart, evaluating patient and formulating plan - 36 minutes.
--- NOTE | 2019-12-23 12:16 | PN ---
Physical Exam: SUBJECTIVE: Patient seen and examined. Appears much more improved today. I- 1800, O-1800. pH normalized. euvolemic now. Cont current management. SvO2 within normal limits, unlikely cardiogenic shock. OBJECTIVE: Vital Signs Period Temp Pulse Resp BP Sys/Clements Pulse Ox Last 24 Hr 97.8 F-98.9 F 84-93 18-20 79-137/51-70 94-97 GENERAL: sedated, vented EYES: Pupils equal, round and reactive to light, extraocular movements intact, sclera anicteric, conjunctiva clear. No lid lag. EARS, NOSE, THROAT: dry, mucous membranes. LUNGS: Breath sounds equal, clear to auscultation bilaterally. No wheezes, and no crackles. on Vent HEART: Regular rate and rhythm, normal S1 and S2 without murmur, rub or gallop. ABDOMEN: Soft, nontender, not distended, normoactive bowel sounds, no guarding, no rebound, no masses. UPPER EXTREMITIES: 2+ pulses, warm, well-perfused. No cyanosis. No peripheral edema. LOWER EXTREMITIES: 2+ pulses, warm, well-perfused. No calf tenderness. No peripheral edema. SKIN: Warm, dry, normal turgor, no rashes or lesions noted. Laboratory Results - last 24 hr 12/22/19 12/23/19 12/23/19 11:45 05:00 05:00 WBC 9.8 RBC 7.22 H Hgb 16.6 Hct 57.0 H MCV 78.9 L MCH 22.9 L MCHC 29.1 L RDW 23.6 H Plt Count 81 L MPV 9.3 Anticoagulation Therapy Puncture Site Patient Temperature ABG pH ABG pCO2 ABG pO2 ABG HCO3 ABG O2 Sat (Measured) ABG O2 Content ABG Base Excess Ye Test VBG pH 7.480 H POC VBG pCO2 50.5 POC VBG pO2 52.0 H VBG HCO3 36.9 H VBG O2 Sat (Francis) 88.7 H VBG Base Excess 11.1 H Patient On Oxygen O2 Delivery Device Oxygen Flow Rate Vent Mode Vent Rate Mechanical Rate PEEP Pressure Support Vent Sodium 136 Potassium 3.2 L Chloride 87 L Carbon Dioxide 44 H Anion Gap 5 L BUN 47.4 H Creatinine 1.2 Est GFR (CKD-EPI)AfAm 72.59 Est GFR (CKD-EPI)NonAf 62.63 Random Glucose 160 H Calcium 8.4 L Phosphorus 4.3 Magnesium 2.4 Total Bilirubin 1.9 H AST 26 ALT 13 Alkaline Phosphatase 93 Total Protein 6.0 L Albumin 2.0 L 12/23/19 05:20 WBC RBC Hgb Hct MCV MCH MCHC RDW Plt Count MPV Anticoagulation Therapy No Result Required. Puncture Site Arterial line Patient Temperature No Result Required. ABG pH 7.414 ABG pCO2 59.40 H ABG pO2 130.0 H ABG HCO3 37.1 H ABG O2 Sat (Measured) 98.6 H ABG O2 Content No Result Required. ABG Base Excess 9.7 H Ye Test Not applicable VBG pH POC VBG pCO2 POC VBG pO2 VBG HCO3 VBG O2 Sat (Francis) VBG Base Excess Patient On Oxygen Yes O2 Delivery Device Vent Oxygen Flow Rate 100% Vent Mode A/c Vent Rate 20 Mechanical Rate Yes PEEP 10.0 Pressure Support Vent 450 Sodium Potassium Chloride Carbon Dioxide Anion Gap BUN Creatinine Est GFR (CKD-EPI)AfAm Est GFR (CKD-EPI)NonAf Random Glucose Calcium Phosphorus Magnesium Total Bilirubin AST ALT Alkaline Phosphatase Total Protein Albumin Active Medications Generic Name Dose Route Start Last Admin Trade Name Freq PRN Reason Stop Dose Admin Amino Acids 30 ml 12/21/19 17:30 12/23/19 09:00 Prosource No Carb Liquid Pkt PO 30 ml BID@0800,1730 [facility] Administration Apixaban 5 mg 12/16/19 22:00 12/23/19 09:11 Eliquis - PO 5 mg BID [facility] Administration Ascorbic Acid 1,000 mg 12/17/19 10:00 12/23/19 09:11 Vitamin C - PO 1,000 mg DAILY [facility] Administration Budesonide/Formoterol Fumarate 2 puff 12/16/19 22:00 12/22/19 21:30 Symbicort 80/4.5mcg - IH Not Given BID [facility] Chlorhexidine Gluconate 15 ml 12/22/19 12:30 12/23/19 09:11 Peridex - MM 15 ml BID [facility] Administration Propofol 1,000,000 mcg in 100 mls @ 3.266 mls/hr 12/17/19 04:30 12/23/19 06:49 Diprivan - IVPB 20 mcg/kg/min TITR [facility] 13.063 mls/hr Administration Protocol 5 MCG/KG/MIN Cefepime HCl 1 gm/ Dextrose 100 mls @ 100 mls/hr 12/18/19 11:15 12/23/19 09:08 IVPB 100 mls/hr Q8H-IV [facility] Administration Protocol Norepinephrine Bitartrate 16,000 mcg in 500 mls @ 9.375 mls/hr 12/21/19 06:45 12/23/19 06:50 Levophed Bag IVPB 10 mcg/min TITR [facility] 18.75 mls/hr Administration Protocol 5 MCG/MIN Midazolam HCl 100 mg in 100 mls @ 1 mls/hr 12/22/19 08:00 12/23/19 09:12 Midazolam 100mg/100ml-0.9%Nacl IVPB Not Given TITR [facility] Protocol 1 MG/HR Metoprolol Tartrate 25 mg 12/19/19 12:00 12/23/19 09:12 Lopressor - PO Not Given BID [facility] Multivitamins/Minerals/Vitamin C 1 tab 12/17/19 10:00 12/23/19 09:11 Tab-A-Vit - PO 1 tab DAILY [facility] Administration Pantoprazole Sodium 40 mg 12/19/19 10:00 12/23/19 09:11 Protonix Iv IVPUSH 40 mg DAILY [facility] Administration ASSESSMENT/PLAN: 64 year old male with a past medical history of HTN, HLD, JUANA (not using CPAP), COPD, GERD, systolic congestive heart failure, paroxysmal atrial fibrillation (on Eliquis, s/p cardioversion 11/2016) who presented with 3 weeks of gradual onset anasarca, scrotal swelling and mild shortness of breath worse on exertion, found to have right lobe PNA, fluid overload, bilateral lower extremity cellulitis and bilateral hydrocele, and respiratory acidosis is admitted for Acute hypercapneic respiratory failure and Acute CHF exacerbation #Neuro Pt sedated and vented Propofol 20, versed 10 #CV Fluid Overload 2/2 sCHF exacerbation, CXR- with small right and left pleural effusion monitor renal studies, electrolytes, strict I&O's and daily weights Clinical signs of severe volume overload- anasarca, b/l LE edema, crackles on b/l lungs Cardiology following on lisinopril- hold until peter improves cont metoprolol Lasix 80 TID held due to low BP Pt on eliquis ASA d/rodriguez On NE 10, wean off s/p One dose Actazolamide given as ABG showed mild alkalosis 7.41/59/130/37 #Pulm Acute hypercapneic resp failure 2/2 to Community acquired pneumonia vs COPD exacerbation CXR- right mid and lower lung and left lung base pneumonia ABG showed 7.41/59/130/37 AC 20/450/100/10 Plat 20, PIP 25 vented SvO2 measurement >70, unlikely to be cardiogenic shock, will treat distributive shock #ID Bilateral Lower Extremity Cellulitis Cefepime D6 ID consulted #Renal stable renal function appropriate Hold Lasix for now as BP are low s/p acetazolamide #GI Anasarca cont diuresis #Heme monitor Thrombocytopenia likely from sepsis will monitor for now #DVT ppx On eliquis #GI ppx protonix Lines LUE A-line 12/20 RIJ 12/18 ET 7.5 FEN monitor lytes Fluid restrictions cont feeds Aspiration risk Dispo: cont abx, monitor I&Os, hold lasix for now Mothers # [phone] -cell, -Home As per brother Ady, would like to be updated as opposed to his mother Attempted to notify and contact pt's mother/ as per chart, unable to reach. Will continue trying Visit type - Emergency Visit Emergency Visit: Yes ED Registration Date: 12/16/19 Care time: The patient presented to the Emergency Department on the above date and was hospitalized for further evaluation of their emergent condition. - New Patient This patient is new to me today: Yes Date on this admission: 12/24/19 - Critical Care Critical Care patient: No - Discharge Referral Referred to [facility] Med P.C.: No ATTENDING PHYSICIAN STATEMENT I saw and evaluated the patient. I reviewed the resident's note and discussed the case with the resident. I agree with the resident's findings and plan as documented. SUBJECTIVE: OBJECTIVE: ASSESSMENT AND PLAN:
--- NOTE | 2019-12-23 13:50 | PN ---
Progress Note, Physician History of Present Illness: still continues to be intubated - Current Medication List Current Medications: Active Medications Amino Acids (Prosource No Carb Liquid Pkt) 30 ml PO BID@0800,1730 [facility] Last Admin: 12/23/19 09:00 Dose: 30 ml Documented by: Apixaban (Eliquis -) 5 mg PO BID [facility] Last Admin: 12/23/19 09:11 Dose: 5 mg Documented by: Ascorbic Acid (Vitamin C -) 1,000 mg PO DAILY [facility] Last Admin: 12/23/19 09:11 Dose: 1,000 mg Documented by: Budesonide/Formoterol Fumarate (Symbicort 80/4.5mcg -) 2 puff IH BID [facility] Last Admin: 12/22/19 21:30 Dose: Not Given Documented by: Chlorhexidine Gluconate (Peridex -) 15 ml MM BID [facility] Last Admin: 12/23/19 09:11 Dose: 15 ml Documented by: Propofol (Diprivan -) 1,000,000 mcg in 100 mls @ 3.266 mls/hr IVPB TITR [facility]; Protocol Last Admin: 12/23/19 06:49 Dose: 20 mcg/kg/min, 13.063 mls/hr Documented by: Cefepime HCl 1 gm/ Dextrose 100 mls @ 100 mls/hr IVPB Q8H-IV [facility]; Protocol Last Admin: 12/23/19 09:08 Dose: 100 mls/hr Documented by: Norepinephrine Bitartrate (Levophed Bag) 16,000 mcg in 500 mls @ 9.375 mls/hr IVPB TITR [facility]; Protocol Last Admin: 12/23/19 06:50 Dose: 10 mcg/min, 18.75 mls/hr Documented by: Midazolam HCl (Midazolam 100mg/100ml-0.9%Nacl) 100 mg in 100 mls @ 1 mls/hr IVPB TITR [facility]; Protocol Last Admin: 12/23/19 09:12 Dose: Not Given Documented by: Metoprolol Tartrate (Lopressor -) 25 mg PO BID [facility] Last Admin: 12/23/19 09:12 Dose: Not Given Documented by: Multivitamins/Minerals/Vitamin C (Tab-A-Vit -) 1 tab PO DAILY [facility] Last Admin: 12/23/19 09:11 Dose: 1 tab Documented by: Pantoprazole Sodium (Protonix Iv) 40 mg IVPUSH DAILY [facility] Last Admin: 12/23/19 09:11 Dose: 40 mg Documented by: - Objective Vital Signs: Vital Signs Temperature 99.2 F 12/23/19 12:00 Pulse Rate 101 H 12/23/19 12:00 Respiratory Rate 12/23/19 12:00 Blood Pressure 121/72 12/23/19 12:00 O2 Sat by Pulse Oximetry (%) 92 L 12/23/19 11:17 Constitutional: Yes: No Distress, Calm Cardiovascular: Yes: S1, S2 Respiratory: Yes: Regular, CTA Bilaterally Gastrointestinal: Yes: Normal Bowel Sounds, Soft Musculoskeletal: Yes: WNL Edema: LLE: 2+, RLE: 2+ Neurological: Yes: Other Labs: CBC, BMP 12/23/19 05:00 12/23/19 05:00 INR, PTT INR 1.34 (0.83-1.09) H 12/16/19 18:40 Assessment/Plan 64 year old male with a past medical history of HTN, HLD, JUANA (not using CPAP), COPD, GERD, systolic congestive heart failure, paroxysmal atrial fibrillation (on Eliquis, s/p cardioversion 11/2016) who presented with 3 weeks of gradual onset anasarca, scrotal swelling and mild shortness of breath worse on exertion. He as found to have a PNA, on clinical exam signs of fluid overload, ?bilateral lower extremity cellulitis and bilateral hydrocele. 1. Acute Respiratory Failure 2. Fluid Overload/ 3.Bilateral Lower Extremity Cellulitis 4. Hydrocele 5. Hypertension 6. Atrial Fibrillation 7. Elevated Troponin 8. Rule Out COVID 9 pna plan continue current mgmt will d/w the team consider stopping abx rest as per the team cc 38 min min
[2019-12-23] MEDS ORDERED: MIDAZOLAM IN 0.9 % SOD.CHLORID 1 MG/1 ML PLAST..BAG ONE (14:55)
[2019-12-23] MEDS: BUDESONIDE/FORMETEROL FUMARATE 80/4.5 mcg INHALER IH SCH ×2 (15:42→21:17)
--- NOTE | 2019-12-23 16:05 | PN ---
Progress Note, Physician History of Present Illness: Pt seen and examined at bedside. He remains in the ICU. - Current Medication List Current Medications: Active Medications Amino Acids (Prosource No Carb Liquid Pkt) 30 ml PO BID@0800,1730 [facility] Last Admin: 12/23/19 09:00 Dose: 30 ml Documented by: Apixaban (Eliquis -) 5 mg PO BID [facility] Last Admin: 12/23/19 09:11 Dose: 5 mg Documented by: Ascorbic Acid (Vitamin C -) 1,000 mg PO DAILY [facility] Last Admin: 12/23/19 09:11 Dose: 1,000 mg Documented by: Budesonide/Formoterol Fumarate (Symbicort 80/4.5mcg -) 2 puff IH BID [facility] Last Admin: 12/23/19 15:42 Dose: Not Given Documented by: Chlorhexidine Gluconate (Peridex -) 15 ml MM BID [facility] Last Admin: 12/23/19 09:11 Dose: 15 ml Documented by: Propofol (Diprivan -) 1,000,000 mcg in 100 mls @ 3.266 mls/hr IVPB TITR [facility]; Protocol Last Admin: 12/23/19 15:33 Dose: 20 mcg/kg/min, 13.063 mls/hr Documented by: Cefepime HCl 1 gm/ Dextrose 100 mls @ 100 mls/hr IVPB Q8H-IV [facility]; Protocol Last Admin: 12/23/19 09:08 Dose: 100 mls/hr Documented by: Norepinephrine Bitartrate (Levophed Bag) 16,000 mcg in 500 mls @ 9.375 mls/hr IVPB TITR [facility]; Protocol Last Admin: 12/23/19 06:50 Dose: 10 mcg/min, 18.75 mls/hr Documented by: Midazolam HCl (Midazolam 100mg/100ml-0.9%Nacl) 100 mg in 100 mls @ 1 mls/hr IVPB TITR [facility]; Protocol Last Admin: 12/23/19 15:34 Dose: 10 mg/hr, 10 mls/hr Documented by: Metoprolol Tartrate (Lopressor -) 25 mg PO BID [facility] Last Admin: 12/23/19 09:12 Dose: Not Given Documented by: Multivitamins/Minerals/Vitamin C (Tab-A-Vit -) 1 tab PO DAILY [facility] Last Admin: 12/23/19 09:11 Dose: 1 tab Documented by: Pantoprazole Sodium (Protonix Iv) 40 mg IVPUSH DAILY [facility] Last Admin: 12/23/19 09:11 Dose: 40 mg Documented by: - Objective Vital Signs: Vital Signs Temperature 99.2 F 12/23/19 12:00 Pulse Rate 102 H 12/23/19 14:00 Respiratory Rate 22 H 12/23/19 14:00 Blood Pressure 126/54 L 12/23/19 14:00 O2 Sat by Pulse Oximetry (%) 100 12/23/19 13:37 Constitutional: Yes: Calm Eyes: Yes: Conjunctiva Clear HENT: Yes: Atraumatic Neck: Yes: Supple Cardiovascular: Yes: S1, S2 Respiratory: Yes: Mechanically Ventilated Gastrointestinal: Yes: Soft Genitourinary: Yes: Hilario Present Musculoskeletal: Yes: Muscle Weakness Edema: Yes (improved) Edema: LLE: Trace, RLE: Trace Integumentary: Yes: Venous Stasis Changes Neurological: Yes: Lethargy Labs: CBC, BMP 12/23/19 05:00 12/23/19 05:00 INR, PTT INR 1.34 (0.83-1.09) H 12/16/19 18:40 Problem List - Problems (1) Anasarca Code(s): R60.1 - GENERALIZED EDEMA (2) Congestive heart failure (CHF) Code(s): I50.9 - HEART FAILURE, UNSPECIFIED Qualifiers: Heart failure type: diastolic Heart failure chronicity: acute on chronic Qualified Code(s): I50.33 - Acute on chronic diastolic (congestive) heart failure (3) Acute kidney injury Code(s): N17.9 - ACUTE KIDNEY FAILURE, UNSPECIFIED Assessment/Plan Current Medications Generic Name Dose Route Start Last Admin Trade Name Freq PRN Reason Stop Dose Admin Amino Acids 30 ml 12/21/19 17:30 12/23/19 09:00 Prosource No Carb Liquid Pkt PO 30 ml BID@0800,1730 [facility] Administration Apixaban 5 mg 12/16/19 22:00 12/23/19 09:11 Eliquis - PO 5 mg BID [facility] Administration Ascorbic Acid 1,000 mg 12/17/19 10:00 12/23/19 09:11 Vitamin C - PO 1,000 mg DAILY [facility] Administration Budesonide/Formoterol Fumarate 2 puff 12/16/19 22:00 12/23/19 15:42 Symbicort 80/4.5mcg - IH Not Given BID [facility] Chlorhexidine Gluconate 15 ml 12/22/19 12:30 12/23/19 09:11 Peridex - MM 15 ml BID [facility] Administration Propofol 1,000,000 mcg in 100 mls @ 3.266 mls/hr 12/17/19 04:30 12/23/19 15:33 Diprivan - IVPB 20 mcg/kg/min TITR [facility] 13.063 mls/hr Administration Protocol 5 MCG/KG/MIN Cefepime HCl 1 gm/ Dextrose 100 mls @ 100 mls/hr 12/18/19 11:15 12/23/19 09:08 IVPB 100 mls/hr Q8H-IV [facility] Administration Protocol Norepinephrine Bitartrate 16,000 mcg in 500 mls @ 9.375 mls/hr 12/21/19 06:45 12/23/19 06:50 Levophed Bag IVPB 10 mcg/min TITR [facility] 18.75 mls/hr Administration Protocol 5 MCG/MIN Midazolam HCl 100 mg in 100 mls @ 1 mls/hr 12/22/19 08:00 12/23/19 15:34 Midazolam 100mg/100ml-0.9%Nacl IVPB 10 mg/hr TITR [facility] 10 mls/hr Administration Protocol 1 MG/HR Metoprolol Tartrate 25 mg 12/19/19 12:00 12/23/19 09:12 Lopressor - PO Not Given BID [facility] Multivitamins/Minerals/Vitamin C 1 tab 12/17/19 10:00 12/23/19 09:11 Tab-A-Vit - PO 1 tab DAILY [facility] Administration Pantoprazole Sodium 40 mg 12/19/19 10:00 12/23/19 09:11 Protonix Iv IVPUSH 40 mg DAILY [facility] Administration Impression 1. MONIE 2. CHF acute 3. acute resp failure requiring intubation 4. atrial fibrillation 5. hx of htn 6. obesity 7. chronic smoker 8. hypokalemia Plan - renal function is improving - alkalosis improving - replace potassium - resume lasix at lower dose tomorrow - cont vent support - monitor urine output - discussed with ICU team - edema is improved - hold areli for now - monitor volume status
[2019-12-23] MEDS ORDERED: ACETAMINOPHEN 1000 MG/100 ML VIAL (NON FORMULARY) IVPB ONE (17:21)
[2019-12-24] MEDS ORDERED: DEXTROSE 5%-WATER 100 ML IVPB ONE ×4 (01:12→18:43)
[2019-12-24] MEDS ORDERED: CEFEPIME HCL 1 GM VIAL (RESTRICTED TO ID) ONE ×2 (01:12→11:16)
[2019-12-24] MEDS: CEFEPIME 1 GM in DEXTROSE 5%-WATER 100 ML IVPB SCH ×2 (01:29→11:18)
--- NOTE | 2019-12-24 02:20 | PN ---
Progress Note (short form) - Note Progress Note: Called by radiologist for ET tube partially dislodged, balloon out. ICU team evaluated and checked with Glidescope and, deflated balloon, advance ET 2-3 cm to 24 at the lip, inflated balloon with Respiratory at bedside. Pt pulling adequate tidal volume. Will cont monitor.
[2019-12-24 07:19] LABS: BLOOD UREA NITROGEN 47.8 mg/dL (7-18); CREATININE 1.1 mg/dL (0.55-1.3); POTASSIUM 3.6 mmol/L (3.5-5.1)
[2019-12-24] MEDS ORDERED: PT OWN MED DRAWER 7, Y5N ONE (07:53)
[2019-12-24] MEDS: METOPROLOL TARTRATE 25 MG TABLET (FP) PO SCH ×2 (09:36→21:00)
[2019-12-24] MEDS: MULTIVITAMINS (DAILY MVI) TABLET (FP) PO SCH (09:36)
[2019-12-24] MEDS: APIXABAN 5 MG TABLET PO SCH ×2 (09:36→21:00)
[2019-12-24] MEDS: PANTOPRAZOLE SODIUM 40 MG VIAL IVPUSH SCH (09:36)
[2019-12-24] MEDS: AMINO ACIDS/PROTEIN HYDROLYS 30 ML LIQUID.PKT PO SCH ×2 (09:36→18:41)
[2019-12-24] MEDS: CHLORHEXIDINE GLUCONATE 0.12% 15ML CUP MM SCH ×2 (09:36→21:00)
[2019-12-24] MEDS: ASCORBIC ACID 500 MG TABLET (FP) PO SCH (09:37)
--- NOTE | 2019-12-24 10:01 | PN ---
Progress Note (short form) - Note Progress Note: covering dr moreno Problems 1. MONIE 2. CHF acute 3. acute resp failure requiring intubation 4. atrial fibrillation 5. hx of htn 6. obesity 7. chronic smoker 8. hypokalemia Active Medications Amino Acids (Prosource No Carb Liquid Pkt) 30 ml PO BID@0800,1730 [facility] Last Admin: 12/24/19 09:36 Dose: 30 ml Documented by: Apixaban (Eliquis -) 5 mg PO BID [facility] Last Admin: 12/24/19 09:36 Dose: 5 mg Documented by: Ascorbic Acid (Vitamin C -) 1,000 mg PO DAILY [facility] Last Admin: 12/24/19 09:37 Dose: 1,000 mg Documented by: Budesonide/Formoterol Fumarate (Symbicort 80/4.5mcg -) 2 puff IH BID [facility] Last Admin: 12/23/19 21:17 Dose: Not Given Documented by: Chlorhexidine Gluconate (Peridex -) 15 ml MM BID [facility] Last Admin: 12/24/19 09:36 Dose: 15 ml Documented by: Propofol (Diprivan -) 1,000,000 mcg in 100 mls @ 3.266 mls/hr IVPB TITR [facility]; Protocol Last Admin: 12/23/19 15:33 Dose: 20 mcg/kg/min, 13.063 mls/hr Documented by: Cefepime HCl 1 gm/ Dextrose 100 mls @ 100 mls/hr IVPB Q8H-IV [facility]; Protocol Last Admin: 12/24/19 01:29 Dose: 100 mls/hr Documented by: Norepinephrine Bitartrate (Levophed Bag) 16,000 mcg in 500 mls @ 9.375 mls/hr IVPB TITR [facility]; Protocol Last Admin: 12/23/19 06:50 Dose: 10 mcg/min, 18.75 mls/hr Documented by: Midazolam HCl (Midazolam 100mg/100ml-0.9%Nacl) 100 mg in 100 mls @ 1 mls/hr IV PB TITR [facility]; Protocol Last Admin: 12/23/19 15:34 Dose: 10 mg/hr, 10 mls/hr Documented by: Metoprolol Tartrate (Lopressor -) 25 mg PO BID [facility] Last Admin: 12/24/19 09:36 Dose: 25 mg Documented by: Multivitamins/Minerals/Vitamin C (Tab-A-Vit -) 1 tab PO DAILY [facility] Last Admin: 12/24/19 09:36 Dose: 1 tab Documented by: Pantoprazole Sodium (Protonix Iv) 40 mg IVPUSH DAILY [facility] Last Admin: 12/24/19 09:36 Dose: 40 mg Documented by: Last Vital Signs Temp Pulse Resp BP Pulse Ox 98.6 F 98 H 20 115/62 94 L 12/24/19 06:00 12/24/19 08:00 12/24/19 09:00 12/24/19 08:00 12/24/19 09:00 Intubated on Vent sedated Lungs clear vented sounds Heart reg Abd soft Ext 1+ edema CBC, BMP 12/23/19 05:00 12/24/19 06:00 Intake & Output 12/23/19 12/24/19 12/24/19 23:59 07:59 15:59 Intake Total 100 662 Output Total 10 400 Balance 90 262 Weight 242 lb 12.8 oz IMP- Prerenal azotemia hypokalemia better Metabolic Alkalosis Plan- continue current rx
--- NOTE | 2019-12-24 10:23 | PN ---
Progress Note, Physician History of Present Illness: 64 year old male with a past medical history of HTN, HLD, JUANA (not using CPAP), COPD, GERD, congestive heart failure, paroxysmal atrial fibrillation (on Eliquis, s/p cardioversion 11/2016) who presented with 3 weeks of gradual onset anasarca, scrotal swelling and mild shortness of breath worse on exertion. CXR s/f diffused bilat opacities with c/f PNA +/-fluid overload, ?bilateral lower ex tremity cellulitis and bilateral hydrocele, and respiratory acidosis is admitted for Acute hypercapneic respiratory failure and Acute CHF exacerbation, intubated for progressive hypercarbic respiratory failure, decreased mental status on BiPAP. 12/22/2019 Remains intubated and sedated on AC Mode of vent, 100% FiO2. Now on NE @ 8 mcq for hemodynamic support. 12/22: Intubated, sedated, hemodynamically improved, off pressors, Echo: nl EF, mild PHTN - Current Medication List Current Medications: Active Medications Amino Acids (Prosource No Carb Liquid Pkt) 30 ml PO BID@0800,1730 [facility] Last Admin: 12/24/19 09:36 Dose: 30 ml Documented by: Apixaban (Eliquis -) 5 mg PO BID [facility] Last Admin: 12/24/19 09:36 Dose: 5 mg Documented by: Ascorbic Acid (Vitamin C -) 1,000 mg PO DAILY [facility] Last Admin: 12/24/19 09:37 Dose: 1,000 mg Documented by: Budesonide/Formoterol Fumarate (Symbicort 80/4.5mcg -) 2 puff IH BID [facility] Last Admin: 12/23/19 21:17 Dose: Not Given Documented by: Chlorhexidine Gluconate (Peridex -) 15 ml MM BID [facility] Last Admin: 12/24/19 09:36 Dose: 15 ml Documented by: Propofol (Diprivan -) 1,000,000 mcg in 100 mls @ 3.266 mls/hr IVPB TITR [facility]; Protocol Last Admin: 12/23/19 15:33 Dose: 20 mcg/kg/min, 13.063 mls/hr Documented by: Cefepime HCl 1 gm/ Dextrose 100 mls @ 100 mls/hr IVPB Q8H-IV [facility]; Protocol Last Admin: 12/24/19 01:29 Dose: 100 mls/hr Documented by: Norepinephrine Bitartrate (Levophed Bag) 16,000 mcg in 500 mls @ 9.375 mls/hr IVPB TITR [facility]; Protocol Last Admin: 12/23/19 06:50 Dose: 10 mcg/min, 18.75 mls/hr Documented by: Midazolam HCl (Midazolam 100mg/100ml-0.9%Nacl) 100 mg in 100 mls @ 1 mls/hr IVPB TITR [facility]; Protocol Last Admin: 12/23/19 15:34 Dose: 10 mg/hr, 10 mls/hr Documented by: Metoprolol Tartrate (Lopressor -) 25 mg PO BID [facility] Last Admin: 12/24/19 09:36 Dose: 25 mg Documented by: Multivitamins/Minerals/Vitamin C (Tab-A-Vit -) 1 tab PO DAILY [facility] Last Admin: 12/24/19 09:36 Dose: 1 tab Documented by: Pantoprazole Sodium (Protonix Iv) 40 mg IVPUSH DAILY [facility] Last Admin: 12/24/19 09:36 Dose: 40 mg Documented by: - Objective Vital Signs: Vital Signs Temperature 98.6 F 12/24/19 06:00 Pulse Rate 98 H 12/24/19 08:00 Respiratory Rate 20 12/24/19 09:00 Blood Pressure 115/62 12/24/19 08:00 O2 Sat by Pulse Oximetry (%) 94 L 12/24/19 09:00 Eyes: Yes: WNL, Conjunctiva Clear, EOM Intact HENT: Yes: WNL, Atraumatic, Normocephalic Neck: Yes: WNL, Supple, Trachea Midline Cardiovascular: Yes: Regular Rate and Rhythm, S1, S2 Respiratory: Yes: Diminished, Mechanically Ventilated, Rhonchi Gastrointestinal: Yes: WNL, Normal Bowel Sounds Genitourinary: Yes: WNL Musculoskeletal: Yes: WNL Edema: Yes Integumentary: Yes: WNL Neurological: Yes: WNL, Alert, Oriented ...Motor Strength: WNL Psychiatric: Yes: WNL Labs: CBC, BMP 12/23/19 05:00 12/24/19 06:00 INR, PTT INR 1.34 (0.83-1.09) H 12/16/19 18:40 Assessment/Plan Assessment/Plan 10/26/2017 Normal LV size with mild LVH, normal LV fxn, normal RV size and fxn, mild LAE, mild MR, mild-mod TR, mild VT, RVSP 43 mmHg 11/19/2016 Lexiscan Myoview: Apical ischemia, LVEF 45-52% 10/06/2016 Echocardiography revealed mild to moderate LV systolic dysfunction, moderate TR, RVSP of 30-40 mmH 1. Acute on chronic Hypoxic and Hypercapneic Respiratory Failure 2. Acute on chronic LV Diastolic Heart Failure with pleural effusion: cor pulmonale 3. R/o PNA, septic shock 4. Paroxysmal atrial fibrillation with periods of rapid ventricular response post DCCV in SR, [id number] score of 2 5. Obstructive Sleep Apnea/Obesity Hypoventilation Syndrome with dental appliance 6. HTN/HCVD 7. Hypercholesterolemia 8. CAD angina pectoris 9. Bilateral cellulitis with h/o abscess s/p debridement 10. Bilateral hydrocele 11. MONIE due to hemodynamic alterations 12. PVC Plan: Echo: Nl EF , mild pulmonary HTN Cor pulmonale 1. Vent management per ABG, sedation for vent synchrony, COVID 19 negative 2. Diuretics held with monitor diuretic response, renal fxn and electrolytes, repleted K, lisinopril 2.5 qd held pending renal recovery 3. started on Lopressor 25 mg BID and Eliquis 5 bid 4.Underlying COPD/Sepsis as per primary team cctime spent [address] Brooke
--- NOTE | 2019-12-24 10:40 | PN ---
Teaching Attending Note Name of Resident: Glenn Sauceda ATTENDING PHYSICIAN STATEMENT I saw and evaluated the patient. I reviewed the resident's note and discussed the case with the resident. I agree with the resident's findings and plan as documented. SUBJECTIVE: Patient seen and examined in the ICU. Intubated and sedated. AC Mode of vent, 100% FiO2. Remains on NE @ 10 mcq for hemodynamic support. Intake & Output 12/21/19 12/22/19 12/23/19 12/24/19 23:59 23:59 23:59 23:59 Intake Total 1195 1205.6 2307.4 662 Output Total 1925 1650 1960 400 Balance -730 -444.4 347.4 262 Weight 247 lb 247 lb 247 lb 242 lb 12.8 oz Last Vital Signs Temp Pulse Resp BP Pulse Ox 98.6 F 98 H 20 115/62 94 L 12/24/19 06:00 12/24/19 08:00 12/24/19 09:00 12/24/19 08:00 12/24/19 09:00 Active Medications Amino Acids (Prosource No Carb Liquid Pkt) 30 ml PO BID@0800,1730 [facility] Last Admin: 12/24/19 09:36 Dose: 30 ml Documented by: Apixaban (Eliquis -) 5 mg PO BID [facility] Last Admin: 12/24/19 09:36 Dose: 5 mg Documented by: Ascorbic Acid (Vitamin C -) 1,000 mg PO DAILY [facility] Last Admin: 12/24/19 09:37 Dose: 1,000 mg Documented by: Budesonide/Formoterol Fumarate (Symbicort 80/4.5mcg -) 2 puff IH BID [facility] Last Admin: 12/23/19 21:17 Dose: Not Given Documented by: Chlorhexidine Gluconate (Peridex -) 15 ml MM BID [facility] Last Admin: 12/24/19 09:36 Dose: 15 ml Documented by: Propofol (Diprivan -) 1,000,000 mcg in 100 mls @ 3.266 mls/hr IVPB TITR [facility]; Protocol Last Admin: 12/23/19 15:33 Dose: 20 mcg/kg/min, 13.063 mls/hr Documented by: Cefepime HCl 1 gm/ Dextrose 100 mls @ 100 mls/hr IVPB Q8H-IV [facility]; Protocol Last Admin: 12/24/19 01:29 Dose: 100 mls/hr Documented by: Norepinephrine Bitartrate (Levophed Bag) 16,000 mcg in 500 mls @ 9.375 mls/hr IVPB TITR [facility]; Protocol Last Admin: 12/23/19 06:50 Dose: 10 mcg/min, 18.75 mls/hr Documented by: Midazolam HCl (Midazolam 100mg/100ml-0.9%Nacl) 100 mg in 100 mls @ 1 mls/hr IVPB TITR [facility]; Protocol Last Admin: 12/23/19 15:34 Dose: 10 mg/hr, 10 mls/hr Documented by: Metoprolol Tartrate (Lopressor -) 25 mg PO BID [facility] Last Admin: 12/24/19 09:36 Dose: 25 mg Documented by: Multivitamins/Minerals/Vitamin C (Tab-A-Vit -) 1 tab PO DAILY [facility] Last Admin: 12/24/19 09:36 Dose: 1 tab Documented by: Pantoprazole Sodium (Protonix Iv) 40 mg IVPUSH DAILY [facility] Last Admin: 12/24/19 09:36 Dose: 40 mg Documented by: PE: GEN: Intubated and sedated HEENT: (-) Pallor, anicteric PULM: Vented, Bibasilar crackles CV: nml S1, S2, RR, unable to appreciate any G/R/M ABD: (+) BS, S/S N/T EXT: + Pulses, WWP X4, +3 pedal Edema CURTAIN DRIER: sedated Laboratory Results - last 24 hr 12/24/19 06:00 Sodium 136 Potassium 3.6 Chloride 89 L Carbon Dioxide 40 H Anion Gap 7 L BUN 47.8 H Creatinine 1.1 Est GFR (CKD-EPI)AfAm 80.65 Est GFR (CKD-EPI)NonAf 69.58 Random Glucose 125 H Calcium 9.0 ASSESS: Acute Respiratory Failure due to CHF Suspected combined Septic & Cardiogenic shock R/O PNA HTN HLD JUANA (not using CPAP) OHS COPD GERD Systolic congestive heart failure Paroxysmal atrial fibrillation (on Eliquis, s/p cardioversion 11/2016) MONIE PLAN: -Pressors to maintain MAP > 65 -LTVV for plat <30 -Maintain O2 sat >92% -Hold diuresis -Sedation for vent synchrony -Rate control -Monitor UOP and BMP -Replete electrolytes -Cont empiric antibiotics for CAP coverage -F/u cultures -Enteral feeds -cont Eliquis -GI proph -Requires ICU monitoring Dr Gab Sanz Critical care time spent in reviewing chart, evaluating patient and formulating plan - 36 minutes.
[2019-12-24] MEDS: PROPOFOL 1,000,000 MCG/100 ML VIAL IVPB SCH (11:26)
[2019-12-24] MEDS: MIDAZOLAM IN 0.9 % SOD.CHLORID 100 MG/100 ML PLAST..BAG IVPB SCH (12:47)
[2019-12-24] MEDS: BUDESONIDE/FORMETEROL FUMARATE 80/4.5 mcg INHALER IH SCH ×2 (13:30→21:00)
--- NOTE | 2019-12-24 14:14 | PN ---
Progress Note, Physician History of Present Illness: Pt remains intubated/sedated on Norepinephrine. Tmax 101.2F - Current Medication List Current Medications: Active Medications Amino Acids (Prosource No Carb Liquid Pkt) 30 ml PO BID@0800,1730 [facility] Last Admin: 12/24/19 09:36 Dose: 30 ml Documented by: Apixaban (Eliquis -) 5 mg PO BID [facility] Last Admin: 12/24/19 09:36 Dose: 5 mg Documented by: Ascorbic Acid (Vitamin C -) 1,000 mg PO DAILY [facility] Last Admin: 12/24/19 09:37 Dose: 1,000 mg Documented by: Budesonide/Formoterol Fumarate (Symbicort 80/4.5mcg -) 2 puff IH BID [facility] Last Admin: 12/24/19 13:30 Dose: Not Given Documented by: Chlorhexidine Gluconate (Peridex -) 15 ml MM BID [facility] Last Admin: 12/24/19 09:36 Dose: 15 ml Documented by: Propofol (Diprivan -) 1,000,000 mcg in 100 mls @ 3.266 mls/hr IVPB TITR [facility]; Protocol Last Admin: 12/24/19 11:26 Dose: 20 mcg/kg/min, 13.063 mls/hr Documented by: Cefepime HCl 1 gm/ Dextrose 100 mls @ 100 mls/hr IVPB Q8H-IV [facility]; Protocol Last Admin: 12/24/19 11:18 Dose: 100 mls/hr Documented by: Norepinephrine Bitartrate (Levophed Bag) 16,000 mcg in 500 mls @ 9.375 mls/hr IVPB TITR [facility]; Protocol Last Admin: 12/23/19 06:50 Dose: 10 mcg/min, 18.75 mls/hr Documented by: Midazolam HCl (Midazolam 100mg/100ml-0.9%Nacl) 100 mg in 100 mls @ 1 mls/hr IVPB TITR [facility]; Protocol Last Admin: 12/24/19 12:47 Dose: 10 mg/hr, 10 mls/hr Documented by: Metoprolol Tartrate (Lopressor -) 25 mg PO BID [facility] Last Admin: 12/24/19 09:36 Dose: 25 mg Documented by: Multivitamins/Minerals/Vitamin C (Tab-A-Vit -) 1 tab PO DAILY [facility] Last Admin: 12/24/19 09:36 Dose: 1 tab Documented by: Pantoprazole Sodium (Protonix Iv) 40 mg IVPUSH DAILY [facility] Last Admin: 12/24/19 09:36 Dose: 40 mg Documented by: - Objective Vital Signs: Vital Signs Temperature 98.1 F 12/24/19 12:00 Pulse Rate 98 H 12/24/19 12:00 Respiratory Rate 20 12/24/19 12:20 Blood Pressure 108/61 12/24/19 12:00 O2 Sat by Pulse Oximetry (%) 93 L 12/24/19 12:20 Constitutional: Yes: No Distress Cardiovascular: Yes: Pulse Irregular Respiratory: Yes: Diminished, Mechanically Ventilated Gastrointestinal: Yes: Normal Bowel Sounds, Soft, Abdomen, Obese Genitourinary: Yes: Hilario Present, Scrotal Edema Extremities: Yes: WNL, Erythema (decreased) Edema: No Integumentary: Yes: WNL Neurological: Yes: Other (on sedation) Labs: CBC, BMP 12/23/19 05:00 12/24/19 06:00 INR, PTT INR 1.34 (0.83-1.09) H 12/16/19 18:40 Laboratory Last Values WBC 9.8 K/mm3 (4.0-10.0) 12/23/19 05:00 Corrected WBC (auto) 8.60 K/mm3 12/19/19 06:00 RBC 7.22 M/mm3 (4.00-5.60) H 12/23/19 05:00 Hgb 16.6 GM/dL (11.7-16.9) 12/23/19 05:00 Hct 57.0 % (35.4-49) H 12/23/19 05:00 MCV 78.9 fl (80-96) L 12/23/19 05:00 MCH 22.9 pg (25.7-33.7) L 12/23/19 05:00 MCHC 29.1 g/dl (32.0-35.9) L 12/23/19 05:00 RDW 23.6 % (11.9-15.9) H 12/23/19 05:00 Plt Count 81 K/MM3 (134-434) L 12/23/19 05:00 MPV 9.3 fl (7.5-11.1) 12/23/19 05:00 Absolute Neuts (auto) 4.8 K/mm3 (1.5-8.0) 12/16/19 18:40 Neutrophils % 69.7 % (42.8-82.8) 12/16/19 18:40 Lymphocytes % 11.0 % (8-40) 12/16/19 18:40 Monocytes % 15.8 % (3.8-10.2) H 12/16/19 18:40 Eosinophils % 2.4 % (0-4.5) 12/16/19 18:40 Basophils % 1.1 % (0-2.0) 12/16/19 18:40 Nucleated RBC % 0 % (0-0) 12/16/19 18:40 Hypochromia 1+ 12/16/19 18:40 Platelet Estimate Adequate 12/16/19 18:40 Platelet Comment Rare giant plts 12/19/19 06:00 Polychromasia 1+ 12/16/19 18:40 Poikilocytosis 1+ 12/16/19 18:40 Anisocytosis 3+ 12/16/19 18:40 Macrocytosis 1+ 12/16/19 18:40 Target Cells 1+ 12/16/19 18:40 PT with INR 15.90 SEC (9.7-13.0) H 12/16/19 18:40 INR 1.34 (0.83-1.09) H 12/16/19 18:40 Anticoagulation Therapy No Result Required. 12/23/19 05:20 Puncture Site Arterial line 12/23/19 05:20 Patient Temperature No Result Required. 12/23/19 05:20 ABG pH 7.414 (7.350-7.450) 12/23/19 05:20 ABG pCO2 59.40 mmHg (35-45) H 12/23/19 05:20 ABG pCO2 at Pt Temp 54.6 mmHg (35-45) H 12/20/19 06:00 ABG pO2 130.0 mmHg (80-100) H 12/23/19 05:20 ABG pO2 at Pt Temp 88.3 mmHg (80-100) 12/20/19 06:00 ABG HCO3 37.1 mmol/L (22-27) H 12/23/19 05:20 ABG O2 Sat (Measured) 98.6 mmHg (95-98) H 12/23/19 05:20 ABG O2 Content No Result Required. 12/23/19 05:20 ABG Base Excess 9.7 mmol/L (-2-2) H 12/23/19 05:20 Ye Test Not applicable 12/23/19 05:20 VBG pH 7.480 (7.310-7.410) H 12/22/19 11:45 POC VBG pCO2 50.5 mmHg (38-52) 12/22/19 11:45 POC VBG pO2 52.0 mmHg (28-48) H 12/22/19 11:45 VBG HCO3 36.9 mmol/L (23-29) H 12/22/19 11:45 VBG O2 Sat (Francis) 88.7 % (70-80) H 12/22/19 11:45 VBG Base Excess 11.1 mmol/L (-2-2) H 12/22/19 11:45 Patient On Oxygen Yes 12/23/19 05:20 O2 Delivery Device Vent 12/23/19 05:20 Oxygen Flow Rate 100% 12/23/19 05:20 Vent Mode A/c 12/23/19 05:20 Vent Rate 20 12/23/19 05:20 Mechanical Rate Yes 12/23/19 05:20 PEEP 10.0 cmH2O 12/23/19 05:20 Pressure Support Vent 450 12/23/19 05:20 Sodium 136 mmol/L (136-145) 12/24/19 06:00 Potassium 3.6 mmol/L (3.5-5.1) 12/24/19 06:00 Chloride 89 mmol/L (98-107) L 12/24/19 06:00 Carbon Dioxide 40 mmol/L (21-32) H 12/24/19 06:00 Anion Gap 7 MMOL/L (8-16) L 12/24/19 06:00 BUN 47.8 mg/dL (7-18) H 12/24/19 06:00 Creatinine 1.1 mg/dL (0.55-1.3) 12/24/19 06:00 Est GFR (CKD-EPI)AfAm 80.65 12/24/19 06:00 Est GFR (CKD-EPI)NonAf 69.58 12/24/19 06:00 Random Glucose 125 mg/dL (74-106) H 12/24/19 06:00 Calcium 9.0 mg/dL (8.5-10.1) 12/24/19 06:00 Phosphorus 4.3 mg/dL (2.5-4.9) 12/23/19 05:00 Magnesium 2.4 mg/dL (1.8-2.4) 12/23/19 05:00 Total Bilirubin 1.9 mg/dL (0.2-1) H 12/23/19 05:00 AST 26 U/L (15-37) 12/23/19 05:00 ALT 13 U/L (13-61) 12/23/19 05:00 Alkaline Phosphatase 93 U/L (45-117) 12/23/19 05:00 Creatine Kinase 50 U/L (26-308) 12/20/19 07:30 Troponin I 0.08 ng/ml (0.00-0.05) H 12/20/19 12:15 B-Natriuretic Peptide 298.0 pg/ml (5-125) H 12/19/19 06:00 Total Protein 6.0 g/dl (6.4-8.2) L 12/23/19 05:00 Albumin 2.0 g/dl (3.4-5.0) L 12/23/19 05:00 COVID-19 (RAJENDRA) Not detected (Not Detected) 12/16/19 21:25 Microbiology 12/16/19 20:13 Blood - Peripheral Venous Blood Culture - Final NO GROWTH AFTER 5 DAYS INCUBATION 12/16/19 19:50 Blood - Peripheral Venous Blood Culture - Final NO GROWTH AFTER 5 DAYS INCUBATION - ....Imaging Chest X-ray: Report Reviewed Problem List - Problems (1) Edema of scrotum Code(s): N50.89 - OTHER SPECIFIED DISORDERS OF THE MALE GENITAL ORGANS (2) Morbid obesity Code(s): E66.01 - MORBID (SEVERE) OBESITY DUE TO EXCESS CALORIES (3) Acute on chronic diastolic (congestive) heart failure Code(s): I50.33 - ACUTE ON CHRONIC DIASTOLIC (CONGESTIVE) HEART FAILURE (4) Acute respiratory failure requiring reintubation Code(s): J96.00 - ACUTE RESPIRATORY FAILURE, UNSP W HYPOXIA OR HYPERCAPNIA (5) Afib Code(s): I48.91 - UNSPECIFIED ATRIAL FIBRILLATION Qualifiers: Atrial fibrillation type: paroxysmal Qualified Code(s): I48.0 - Paroxysmal atrial fibrillation Assessment/Plan Acute respiratory failure/intubation Septic ayan CHF PNA b/l LE Cellulitis b/l Hydrocele MONIE Paroxysmal AFIB COPD JUANA CAD HTN HLD -- events noted, imaging/lab results reviewed -- Pt febrile since last night, repeat cultures sent -- d/c Cefepime, switch to Meropenem, Vancomycin IV with close renal monitoring -- remains intubated, on Norepinephrine -- LE erythema improving cc time: 38 min
--- NOTE | 2019-12-24 15:11 | PN ---
Physical Exam: SUBJECTIVE: Patient seen and examined at bedside. No events overnight. OBJECTIVE: Vital Signs Period Temp Pulse Resp BP Sys/Clements Pulse Ox Last 24 Hr 98.1 F-101.2 F 89-100 18-20 90-132/51-79 93-94 GENERAL: The patient is intubated and sedated. HEAD: Normal with no signs of trauma. NECK: Trachea midline, full range of motion, supple. LUNGS: Breath sounds equal, clear to auscultation bilaterally, no wheezes, no crackles, no accessory muscle use. HEART: Regular rate and rhythm, S1, S2 without murmur, rub or gallop. ABDOMEN: Soft, nontender, nondistended, normoactive bowel sounds, no guarding, no rebound, no hepatosplenomegaly, no masses. EXTREMITIES: 2+ pulses, warm, well-perfused, no edema. NEUROLOGICAL: unable to obtain as patient sedated. Laboratory Results - last 24 hr 12/24/19 06:00 Sodium 136 Potassium 3.6 Chloride 89 L Carbon Dioxide 40 H Anion Gap 7 L BUN 47.8 H Creatinine 1.1 Est GFR (CKD-EPI)AfAm 80.65 Est GFR (CKD-EPI)NonAf 69.58 Random Glucose 125 H Calcium 9.0 Active Medications Generic Name Dose Route Start Last Admin Trade Name Freq PRN Reason Stop Dose Admin Amino Acids 30 ml 12/21/19 17:30 12/24/19 09:36 Prosource No Carb Liquid Pkt PO 30 ml BID@0800,1730 [facility] Administration Apixaban 5 mg 12/16/19 22:00 12/24/19 09:36 Eliquis - PO 5 mg BID [facility]TE Administration Ascorbic Acid 1,000 mg 12/17/19 10:00 12/24/19 09:37 Vitamin C - PO 1,000 mg DAILY [facility]TE Administration Budesonide/Formoterol Fumarate 2 puff 12/16/19 22:00 12/24/19 13:30 Symbicort 80/4.5mcg - IH Not Given BID [facility]TE Chlorhexidine Gluconate 15 ml 12/22/19 12:30 12/24/19 09:36 Peridex - MM 15 ml BID [facility] Administration Propofol 1,000,000 mcg in 100 mls @ 3.266 mls/hr 12/17/19 04:30 12/24/19 11:26 Diprivan - IVPB 20 mcg/kg/min TITR [facility] 13.063 mls/hr Administration Protocol 5 MCG/KG/MIN Norepinephrine Bitartrate 16,000 mcg in 500 mls @ 9.375 mls/hr 12/21/19 06:45 12/23/19 06:50 Levophed Bag IVPB 10 mcg/min TITR [facility] 18.75 mls/hr Administration Protocol 5 MCG/MIN Midazolam HCl 100 mg in 100 mls @ 1 mls/hr 12/22/19 08:00 12/24/19 12:47 Midazolam 100mg/100ml-0.9%Nacl IVPB 10 mg/hr TITR [facility] 10 mls/hr Administration Protocol 1 MG/HR Meropenem 1 gm/ Dextrose 100 mls @ 200 mls/hr 12/24/19 14:15 IVPB Q8H-IV [facility] Vancomycin HCl 1,000 mg in 250 mls @ 166.667 mls/hr 12/24/19 14:15 Vancomycin (Pre-Docked) IVPB Q12H [facility] Protocol Metoprolol Tartrate 25 mg 12/19/19 12:00 12/24/19 09:36 Lopressor - PO 25 mg BID [facility]TE Administration Multivitamins/Minerals/Vitamin C 1 tab 12/17/19 10:00 12/24/19 09:36 Tab-A-Vit - PO 1 tab DAILY [facility] Administration Pantoprazole Sodium 40 mg 12/19/19 10:00 12/24/19 09:36 Protonix Iv IVPUSH 40 mg DAILY [facility] Administration ASSESSMENT/PLAN: 64 year old male with a past medical history of HTN, HLD, JUANA (not using CPAP), COPD, GERD, systolic congestive heart failure, paroxysmal atrial fibrillation (on Eliquis, s/p cardioversion 11/2016) who presented with 3 weeks of gradual onset anasarca, scrotal swelling and mild shortness of breath worse on exertion. Pt intubated and sedated for fluid overload, right sided PNA. #Neuro -Pt sedated and vented #Cardio -Patient requiring levophed to maintain blood pressure -Patient w/ frequent PVCs/ NSVT on tele -holding lasix as patient effectively diuresed -cardio onboard #pulmonary -intubated -B/l PNA -vent settings unchanged; Pplat improving at 20 #Renal -hypokalemia resolved today -nephro consulted -lasix held #ID -b/l PNA -Cefepime 1g q8h -ID onboard -Patient persistently febrile overnight; ID escalated ABX coverage to merrem and vanco q12h #FEN -no fluids indicated -replete lytes as above -tube feeds #Prophy -on eliquis -protonix 40mg IV daily #Lines/Tubes -Left axillary A-line placed 12/20 -Right IJ CVC placed 12/18 -maxwell in place #Dispo -admit ICU -patient in critical condition -prognosis guarded -GOC discussion with pt mother and brother, pt remains full code. -Brother Ady states that he would prefer to be contacted over his mother: [phone] Visit type - Emergency Visit Emergency Visit: Yes ED Registration Date: 12/16/19 Care time: The patient presented to the Emergency Department on the above date and was hospitalized for further evaluation of their emergent condition. - New Patient This patient is new to me today: No - Critical Care Critical Care patient: Yes Total Critical Care Time (in minutes): 45 Critical Care Statement: The care of this patient involved high complexity decision making to prevent further life threatening deterioration of the patient 's condition and/or to evaluate & treat vital organ system(s) failure or risk of failure. - Discharge Referral Referred to [facility] Med P.C.: No ATTENDING PHYSICIAN STATEMENT I saw and evaluated the patient. I reviewed the resident's note and discussed the case with the resident. I agree with the resident's findings and plan as documented. SUBJECTIVE: OBJECTIVE: ASSESSMENT AND PLAN:
[2019-12-24] MEDS ORDERED: MEROPENEM 1 GM VIAL (RESTRICTED TO ID) IVPB ONE ×2 (15:22→18:43)
[2019-12-24] MEDS: MEROPENEM 1 GM in DEXTROSE 5%-WATER 100 ML IVPB SCH ×2 (15:24→18:43)
[2019-12-24] MEDS: VANCOMYCIN 1 GRAM (PRE-DOCKED) 1,000 MG/250 ML BAG IVPB SCH (15:25)
[2019-12-25] MEDS: NOREPINEPHRINE D5W PREMIX 16,000 MCG/500 ML BAG IVPB SCH ×3 (03:00→21:22)
[2019-12-25] MEDS: VANCOMYCIN 1 GRAM (PRE-DOCKED) 1,000 MG/250 ML BAG IVPB SCH ×2 (03:00→15:33)
[2019-12-25] MEDS: MEROPENEM 1 GM in DEXTROSE 5%-WATER 100 ML IVPB SCH ×3 (03:00→17:47)
[2019-12-25] MEDS ORDERED: CALCIUM GLUCONATE 10% - 1,000 MG/10 ML VIAL IVPB ONE (03:54)
[2019-12-25] MEDS ORDERED: MAGNESIUM SULF 50% (8.12 MEQ/2 ML-1 GM VIAL) IVPB ONE (04:00)
[2019-12-25 04:12] LABS: HEMATOCRIT 56.4 % (35.4-49); HEMOGLOBIN 16.1 GM/dL (11.7-16.9); MCHC 28.6 g/dl (32.0-35.9); MEAN CELL VOLUME 80.3 fl (80-96); MEAN PLT VOLUME 9.1 fl (7.5-11.1); PLATELET COUNT 115 K/MM3 (134-434); RDW 23.7 % (11.9-15.9); WHITE BLOOD COUNT 9.4 K/mm3 (4.0-10.0)
[2019-12-25 04:16] LABS: RBC 7.02 M/mm3 (4.00-5.60)
[2019-12-25 04:32] LABS: ALBUMIN 1.9 g/dl (3.4-5.0); BILIRUBIN,TOTAL 2.3 mg/dL (0.2-1); BLOOD UREA NITROGEN 57.6 mg/dL (7-18); CALCIUM 8.4 mg/dL (8.5-10.1); CREATININE 1.1 mg/dL (0.55-1.3); MAGNESIUM 2.4 mg/dL (1.8-2.4); PHOSPHOROUS 3.3 mg/dL (2.5-4.9); POTASSIUM 3.6 mmol/L (3.5-5.1)
[2019-12-25] MEDS: PROPOFOL 1,000,000 MCG/100 ML VIAL IVPB SCH ×4 (04:37→21:20)
[2019-12-25 06:02] LABS: ARTERIAL BLD GAS O2 SATURATION 88.9 mmHg (95-98); ARTERIAL BLOOD GAS BASE EXCESS 9.8 mmol/L (-2-2); ARTERIAL BLOOD GAS PO2 58.9 mmHg (80-100)
[2019-12-25 06:13] LABS: ALLENS TEST POSITIVE
[2019-12-25 06:14] LABS: VENT MODE A/C
[2019-12-25 06:15] LABS: VENT RATE 20
[2019-12-25] MEDS ORDERED: MEROPENEM 1 GM VIAL (RESTRICTED TO ID) IVPB ONE ×2 (08:58→17:44)
[2019-12-25] MEDS ORDERED: DEXTROSE 5%-WATER 100 ML IVPB ONE ×2 (08:59→17:44)
--- NOTE | 2019-12-25 09:26 | PN ---
Progress Note, Physician History of Present Illness: 64 year old male with a past medical history of HTN, HLD, JUANA (not using CPAP), COPD, GERD, congestive heart failure, paroxysmal atrial fibrillation (on Eliquis, s/p cardioversion 11/2016) who presented with 3 weeks of gradual onset anasarca, scrotal swelling and mild shortness of breath worse on exertion. CXR s/f diffused bilat opacities with c/f PNA +/-fluid overload, ?bilateral lower ex tremity cellulitis and bilateral hydrocele, and respiratory acidosis is admitted for Acute hypercapneic respiratory failure and Acute CHF exacerbation, intubated for progressive hypercarbic respiratory failure, decreased mental status on BiPAP. 12/22/2019 Remains intubated and sedated on AC Mode of vent, 100% FiO2. Now on NE @ 8 mcq for hemodynamic support. 12/22: Intubated, sedated, hemodynamically improved, off pressors, Echo: nl EF, mild PHTN - Current Medication List Current Medications: Active Medications Amino Acids (Prosource No Carb Liquid Pkt) 30 ml PO BID@0800,1730 [facility] Last Admin: 12/24/19 18:41 Dose: 30 ml Documented by: Apixaban (Eliquis -) 5 mg PO BID [facility] Last Admin: 12/24/19 21:00 Dose: 5 mg Documented by: Ascorbic Acid (Vitamin C -) 1,000 mg PO DAILY [facility] Last Admin: 12/24/19 09:37 Dose: 1,000 mg Documented by: Budesonide/Formoterol Fumarate (Symbicort 80/4.5mcg -) 2 puff IH BID [facility] Last Admin: 12/24/19 21:00 Dose: Not Given Documented by: Chlorhexidine Gluconate (Peridex -) 15 ml MM BID [facility] Last Admin: 12/24/19 21:00 Dose: 15 ml Documented by: Propofol (Diprivan -) 1,000,000 mcg in 100 mls @ 3.266 mls/hr IVPB TITR [facility]; Protocol Last Titration: 12/25/19 07:48 Dose: 25 mcg/kg/min, 16.329 mls/hr Documented by: Norepinephrine Bitartrate (Levophed Bag) 16,000 mcg in 500 mls @ 9.375 mls/hr IVPB TITR [facility]; Protocol Last Admin: 12/25/19 06:45 Dose: Not Given Documented by: Midazolam HCl (Midazolam 100mg/100ml-0.9%Nacl) 100 mg in 100 mls @ 1 mls/hr IVPB TITR [facility]; Protocol Last Infusion: 12/25/19 03:07 Dose: 8 mg/hr, 8 mls/hr Documented by: Vancomycin HCl (Vancomycin (Pre-Docked)) 1,000 mg in 250 mls @ 166.667 mls/hr IVPB Q12H [facility]; Protocol Last Admin: 12/25/19 03:00 Dose: 166.667 mls/hr Documented by: Meropenem 1 gm/ Dextrose 100 mls @ 200 mls/hr IVPB Q8H-IV [facility] Last Admin: 12/25/19 03:00 Dose: 200 mls/hr Documented by: Metoprolol Tartrate (Lopressor -) 25 mg PO BID [facility] Last Admin: 12/24/19 21:00 Dose: 25 mg Documented by: Multivitamins/Minerals/Vitamin C (Tab-A-Vit -) 1 tab PO DAILY [facility] Last Admin: 12/24/19 09:36 Dose: 1 tab Documented by: Pantoprazole Sodium (Protonix Iv) 40 mg IVPUSH DAILY [facility] Last Admin: 12/24/19 09:36 Dose: 40 mg Documented by: - Objective Vital Signs: Vital Signs Temperature 99.6 F 12/25/19 06:00 Pulse Rate 103 H 12/25/19 06:00 Respiratory Rate 12/25/19 08:25 Blood Pressure 124/74 12/25/19 06:00 O2 Sat by Pulse Oximetry (%) 90 L 12/25/19 08:25 Eyes: Yes: WNL, Conjunctiva Clear, EOM Intact HENT: Yes: WNL, Atraumatic, Normocephalic Neck: Yes: WNL, Supple, Trachea Midline Cardiovascular: Yes: Regular Rate and Rhythm, S1, S2 Respiratory: Yes: Diminished, Intubated, Mechanically Ventilated Gastrointestinal: Yes: WNL, Normal Bowel Sounds Genitourinary: Yes: WNL Musculoskeletal: Yes: WNL Extremities: Yes: WNL Edema: No Integumentary: Yes: WNL Neurological: Yes: WNL, Alert, Oriented ...Motor Strength: WNL Psychiatric: Yes: WNL Labs: CBC, BMP 12/25/19 04:00 12/25/19 04:00 INR, PTT INR 1.34 (0.83-1.09) H 12/16/19 18:40 Assessment/Plan Assessment/Plan 10/26/2017 Normal LV size with mild LVH, normal LV fxn, normal RV size and fxn, mild LAE, mild MR, mild-mod TR, mild TN, RVSP 43 mmHg 11/19/2016 Lexiscan Myoview: Apical ischemia, LVEF 45-52% 10/06/2016 Echocardiography revealed mild to moderate LV systolic dysfunction, moderate TR, RVSP of 30-40 mmH 1. Acute on chronic Hypoxic and Hypercapneic Respiratory Failure 2. Acute on chronic LV Diastolic Heart Failure with pleural effusion: cor pulmonale 3. R/o PNA, septic shock on pressors 4. Paroxysmal atrial fibrillation with periods of rapid ventricular response post DCCV in SR, [id number] score of 2 5. Obstructive Sleep Apnea/Obesity Hypoventilation Syndrome with dental appliance 6. HTN/HCVD 7. Hypercholesterolemia 8. CAD angina pectoris 9. Bilateral cellulitis with h/o abscess s/p debridement 10. Bilateral hydrocele 11. MONIE due to hemodynamic alterations 12. PVC Plan: Echo: Nl EF , mild pulmonary HTN Cor pulmonale 1. Vent management per ABG, sedation for vent synchrony, COVID 19 negative 2. Diuretics held with monitor diuretic response, renal fxn and electrolytes, repleted K, lisinopril 2.5 qd held pending renal recovery 3. started on Lopressor 25 mg BID and Eliquis 5 bid 4.Underlying COPD/Sepsis as per primary team cctime spent [address] Brooke
[2019-12-25] MEDS: CHLORHEXIDINE GLUCONATE 0.12% 15ML CUP MM SCH ×2 (09:49→21:21)
[2019-12-25] MEDS: AMINO ACIDS/PROTEIN HYDROLYS 30 ML LIQUID.PKT PO SCH ×2 (09:49→17:46)
[2019-12-25] MEDS: MULTIVITAMINS (DAILY MVI) TABLET (FP) PO SCH (09:53)
[2019-12-25] MEDS: ASCORBIC ACID 500 MG TABLET (FP) PO SCH (09:53)
[2019-12-25] MEDS: PANTOPRAZOLE SODIUM 40 MG VIAL IVPUSH SCH (09:53)
[2019-12-25] MEDS: APIXABAN 5 MG TABLET PO SCH ×2 (09:53→21:20)
[2019-12-25] MEDS: METOPROLOL TARTRATE 25 MG TABLET (FP) PO SCH ×2 (09:53→21:20)
--- NOTE | 2019-12-25 12:20 | PN ---
Teaching Attending Note Name of Resident: Gilberto Godinez ATTENDING PHYSICIAN STATEMENT I saw and evaluated the patient. I reviewed the resident's note and discussed the case with the resident. I agree with the resident's findings and plan as documented. SUBJECTIVE: Patient seen and examined in the ICU. Intubated and sedated. AC Mode of vent, 100% FiO2. Remains on NE @ 14 mcq for hemodynamic support. Intake & Output 12/22/19 12/23/19 12/24/19 12/25/19 23:59 23:59 23:59 23:59 Intake Total 1205.6 2307.4 1973 775 Output Total 1650 1960 1550 600 Balance -444.4 347.4 423 175 Weight 247 lb 247 lb 242 lb 12.8 oz 248 lb Last Vital Signs Temp Pulse Resp BP Pulse Ox 99.6 F 103 H 20 124/74 90 L 12/25/19 06:00 12/25/19 06:00 12/25/19 08:25 12/25/19 06:00 12/25/19 08:25 Active Medications Amino Acids (Prosource No Carb Liquid Pkt) 30 ml PO BID@0800,1730 [facility] Last Admin: 12/25/19 09:49 Dose: 30 ml Documented by: Apixaban (Eliquis -) 5 mg PO BID [facility] Last Admin: 12/25/19 09:53 Dose: 5 mg Documented by: Ascorbic Acid (Vitamin C -) 1,000 mg PO DAILY [facility] Last Admin: 12/25/19 09:53 Dose: 1,000 mg Documented by: Budesonide/Formoterol Fumarate (Symbicort 80/4.5mcg -) 2 puff IH BID [facility] Last Admin: 12/24/19 21:00 Dose: Not Given Documented by: Chlorhexidine Gluconate (Peridex -) 15 ml MM BID [facility] Last Admin: 12/25/19 09:49 Dose: 15 ml Documented by: Propofol (Diprivan -) 1,000,000 mcg in 100 mls @ 3.266 mls/hr IVPB TITR [facility]; Protocol Last Titration: 12/25/19 07:48 Dose: 25 mcg/kg/min, 16.329 mls/hr Documented by: Norepinephrine Bitartrate (Levophed Bag) 16,000 mcg in 500 mls @ 9.375 mls/hr IVPB TITR [facility]; Protocol Last Admin: 12/25/19 06:45 Dose: Not Given Documented by: Midazolam HCl (Midazolam 100mg/100ml-0.9%Nacl) 100 mg in 100 mls @ 1 mls/hr IVPB TITR [facility]; Protocol Last Infusion: 12/25/19 10:34 Dose: 10 mg/hr, 10 mls/hr Documented by: Vancomycin HCl (Vancomycin (Pre-Docked)) 1,000 mg in 250 mls @ 166.667 mls/hr IVPB Q12H [facility]; Protocol Last Admin: 12/25/19 03:00 Dose: 166.667 mls/hr Documented by: Meropenem 1 gm/ Dextrose 100 mls @ 200 mls/hr IVPB Q8H-IV [facility] Last Admin: 12/25/19 09:50 Dose: 200 mls/hr Documented by: Metoprolol Tartrate (Lopressor -) 25 mg PO BID [facility] Last Admin: 12/25/19 09:53 Dose: 25 mg Documented by: Multivitamins/Minerals/Vitamin C (Tab-A-Vit -) 1 tab PO DAILY [facility] Last Admin: 12/25/19 09:53 Dose: 1 tab Documented by: Pantoprazole Sodium (Protonix Iv) 40 mg IVPUSH DAILY [facility] Last Admin: 12/25/19 09:53 Dose: 40 mg Documented by: GEN: Intubated and sedated HEENT: (-) Pallor, anicteric PULM: Vented, Bibasilar crackles CV: nml S1, S2, RR, unable to appreciate any G/R/M ABD: (+) BS, S/S N/T EXT: + Pulses, WWP X4, +3 pedal Edema [employer] MACHINE [employer]ENDER: sedated Laboratory Results - last 24 hr 12/25/19 12/25/19 12/25/19 04:00 04:00 05:40 WBC 9.4 RBC 7.02 H Hgb 16.1 Hct 56.4 H MCV 80.3 MCH 23.0 L MCHC 28.6 L RDW 23.7 H Plt Count 115 L D MPV 9.1 Anticoagulation Therapy No Result Required. Puncture Site Left radial Patient Temperature No Result Required. ABG pH 7.370 ABG pCO2 68.40 H ABG pO2 58.9 L ABG HCO3 38.7 H ABG O2 Sat (Measured) 88.9 L ABG O2 Content No Result Required. ABG Base Excess 9.8 H Ye Test Positive Patient On Oxygen Yes O2 Delivery Device Vent Oxygen Flow Rate 10% Vent Mode A/c Vent Rate 20 Mechanical Rate No Result Required. PEEP 10.0 Pressure Support Vent 450 Sodium 137 Potassium 3.6 Chloride 91 L Carbon Dioxide 41 H Anion Gap 5 L BUN 57.6 H Creatinine 1.1 Est GFR (CKD-EPI)AfAm 80.65 Est GFR (CKD-EPI)NonAf 69.58 Random Glucose 191 H Calcium 8.4 L Phosphorus 3.3 Magnesium 2.4 Total Bilirubin 2.3 H AST 30 ALT 15 Alkaline Phosphatase 114 Total Protein 6.0 L Albumin 1.9 L ASSESS: Acute Respiratory Failure due to CHF Septic shock Suspected PNA HTN HLD JUANA (not using CPAP) OHS COPD GERD Systolic congestive heart failure Paroxysmal atrial fibrillation (on Eliquis, s/p cardioversion 11/2016) MONIE PLAN: -Pressors to maintain MAP > 65 -LTVV for plat <30 -Maintain O2 sat >92% -Broad ABX Per ID -Hold diuresis -Sedation for vent synchrony -Rate control -Monitor UOP and BMP -Replete electrolytes -F/u cultures -Enteral feeds -cont Eliquis -GI proph -Requires ICU monitoring Dr Gab Sanz Critical care time spent in reviewing chart, evaluating patient and formulating plan - 36 minutes.
--- NOTE | 2019-12-25 12:43 | PN ---
Progress Note (short form) - Note Progress Note: covering dr moreno Problems 1. MONIE 2. CHF acute 3. acute resp failure requiring intubation 4. atrial fibrillation 5. hx of htn 6. obesity 7. chronic smoker 8. hypokalemia Active Medications Amino Acids (Prosource No Carb Liquid Pkt) 30 ml PO BID@0800,1730 [facility] Last Admin: 12/25/19 09:49 Dose: 30 ml Documented by: Apixaban (Eliquis -) 5 mg PO BID [facility] Last Admin: 12/25/19 09:53 Dose: 5 mg Documented by: Ascorbic Acid (Vitamin C -) 1,000 mg PO DAILY [facility] Last Admin: 12/25/19 09:53 Dose: 1,000 mg Documented by: Budesonide/Formoterol Fumarate (Symbicort 80/4.5mcg -) 2 puff IH BID [facility] Last Admin: 12/24/19 21:00 Dose: Not Given Documented by: Chlorhexidine Gluconate (Peridex -) 15 ml MM BID [facility] Last Admin: 12/25/19 09:49 Dose: 15 ml Documented by: Propofol (Diprivan -) 1,000,000 mcg in 100 mls @ 3.266 mls/hr IVPB TITR [facility]; Protocol Last Titration: 12/25/19 07:48 Dose: 25 mcg/kg/min, 16.329 mls/hr Documented by: Norepinephrine Bitartrate (Levophed Bag) 16,000 mcg in 500 mls @ 9.375 mls/hr IVPB TITR [facility]; Protocol Last Admin: 12/25/19 06:45 Dose: Not Given Documented by: Midazolam HCl (Midazolam 100mg/100ml-0.9%Nacl) 100 mg in 100 mls @ 1 mls/hr IVPB TITR [facility]; Protocol Last Infusion: 12/25/19 10:34 Dose: 10 mg/hr, 10 mls/hr Documented by: Vancomycin HCl (Vancomycin (Pre-Docked)) 1,000 mg in 250 mls @ 166.667 mls/hr IVPB Q12H [facility]; Protocol Last Admin: 12/25/19 03:00 Dose: 166.667 mls/hr Documented by: Meropenem 1 gm/ Dextrose 100 mls @ 200 mls/hr IVPB Q8H-IV [facility] Last Admin: 12/25/19 09:50 Dose: 200 mls/hr Documented by: Metoprolol Tartrate (Lopressor -) 25 mg PO BID [facility] Last Admin: 12/25/19 09:53 Dose: 25 mg Documented by: Multivitamins/Minerals/Vitamin C (Tab-A-Vit -) 1 tab PO DAILY [facility] Last Admin: 12/25/19 09:53 Dose: 1 tab Documented by: Pantoprazole Sodium (Protonix Iv) 40 mg IVPUSH DAILY [facility] Last Admin: 12/25/19 09:53 Dose: 40 mg Documented by: Last Vital Signs Temp Pulse Resp BP Pulse Ox 99.6 F 103 H 20 124/74 90 L 12/25/19 06:00 12/25/19 06:00 12/25/19 08:25 12/25/19 06:00 12/25/19 08:25 Intubated on Vent sedated Lungs clear vented sounds Heart reg Abd soft Ext 1+ edema CBC, BMP 12/25/19 04:00 12/25/19 04:00 CBC, BMP 12/23/19 05:00 12/24/19 06:00 Intake & Output 12/23/19 12/24/19 12/24/19 23:59 07:59 15:59 Intake Total 100 662 Output Total 10 400 Balance 90 262 Weight 242 lb 12.8 oz IMP- Prerenal azotemia hypokalemia better Metabolic Alkalosis Plan- continue supportive rx
--- NOTE | 2019-12-25 12:46 | PN ---
Physical Exam: SUBJECTIVE: Patient seen and examined at bed side in ICU Intubated and sedated. AC Mode of vent, 100% FiO2. Remains on NE @ 14 mcq for hemodynamic support. OBJECTIVE: Vital Signs Period Temp Pulse Resp BP Sys/Clements Pulse Ox Last 24 Hr 98.2 F-99.6 F 89-103 20- 100-144/52-124 90-93 GENERAL: The patient is intubated and sedated. HEAD: Normal with no signs of trauma. NECK: Trachea midline, full range of motion, supple. LUNGS: Breath sounds equal, clear to auscultation bilaterally, no wheezes, no crackles, no accessory muscle use. HEART: Regular rate and rhythm, S1, S2 without murmur, rub or gallop. ABDOMEN: Soft, nontender, nondistended, normoactive bowel sounds, no guarding, no rebound, no hepatosplenomegaly, no masses. EXTREMITIES: 2+ pulses, warm, well-perfused, no edema. NEUROLOGICAL: unable to obtain as patient sedated. Laboratory Results - last 24 hr 12/25/19 12/25/19 12/25/19 04:00 04:00 05:40 WBC 9.4 RBC 7.02 H Hgb 16.1 Hct 56.4 H MCV 80.3 MCH 23.0 L MCHC 28.6 L RDW 23.7 H Plt Count 115 L D MPV 9.1 Anticoagulation Therapy No Result Required. Puncture Site Left radial Patient Temperature No Result Required. ABG pH 7.370 ABG pCO2 68.40 H ABG pO2 58.9 L ABG HCO3 38.7 H ABG O2 Sat (Measured) 88.9 L ABG O2 Content No Result Required. ABG Base Excess 9.8 H Ye Test Positive Patient On Oxygen Yes O2 Delivery Device Vent Oxygen Flow Rate 10% Vent Mode A/c Vent Rate 20 Mechanical Rate No Result Required. PEEP 10.0 Pressure Support Vent 450 Sodium 137 Potassium 3.6 Chloride 91 L Carbon Dioxide 41 H Anion Gap 5 L BUN 57.6 H Creatinine 1.1 Est GFR (CKD-EPI)AfAm 80.65 Est GFR (CKD-EPI)NonAf 69.58 Random Glucose 191 H Calcium 8.4 L Phosphorus 3.3 Magnesium 2.4 Total Bilirubin 2.3 H AST 30 ALT 15 Alkaline Phosphatase 114 Total Protein 6.0 L Albumin 1.9 L Active Medications Generic Name Dose Route Start Last Admin Trade Name Freq PRN Reason Stop Dose Admin Amino Acids 30 ml 12/21/19 17:30 12/25/19 09:49 Prosource No Carb Liquid Pkt PO 30 ml BID@0800,1730 [facility] Administration Apixaban 5 mg 12/16/19 22:00 12/25/19 09:53 Eliquis - PO 5 mg BID [facility] Administration Ascorbic Acid 1,000 mg 12/17/19 10:00 12/25/19 09:53 Vitamin C - PO 1,000 mg DAILY [facility] Administration Budesonide/Formoterol Fumarate 2 puff 12/16/19 22:00 12/24/19 21:00 Symbicort 80/4.5mcg - IH Not Given BID [facility] Chlorhexidine Gluconate 15 ml 12/22/19 12:30 12/25/19 09:49 Peridex - MM 15 ml BID [facility] Administration Propofol 1,000,000 mcg in 100 mls @ 3.266 mls/hr 12/17/19 04:30 12/25/19 07:48 Diprivan - IVPB 25 mcg/kg/min TITR [facility] 16.329 mls/hr Titration Protocol 5 MCG/KG/MIN Norepinephrine Bitartrate 16,000 mcg in 500 mls @ 9.375 mls/hr 12/21/19 06:45 12/25/19 06:45 Levophed Bag IVPB Not Given TITR [facility] Protocol 5 MCG/MIN Midazolam HCl 100 mg in 100 mls @ 1 mls/hr 12/22/19 08:00 12/25/19 10:34 Midazolam 100mg/100ml-0.9%Nacl IVPB 10 mg/hr TITR [facility] 10 mls/hr Infusion Protocol 1 MG/HR Vancomycin HCl 1,000 mg in 250 mls @ 166.667 mls/hr 12/24/19 14:15 12/25/19 03:00 Vancomycin (Pre-Docked) IVPB 166.667 mls/hr Q12H [facility] Administration Protocol Meropenem 1 gm/ Dextrose 100 mls @ 200 mls/hr 12/25/19 02:45 12/25/19 09:50 IVPB 200 mls/hr Q8H-IV [facility] Administration Metoprolol Tartrate 25 mg 12/19/19 12:00 06/21/20 09:53 Lopressor - PO 25 mg BID [facility] Administration Multivitamins/Minerals/Vitamin C 1 tab 12/17/19 10:00 12/25/19 09:53 Tab-A-Vit - PO 1 tab DAILY [facility] Administration Pantoprazole Sodium 40 mg 12/19/19 10:00 12/25/19 09:53 Protonix Iv IVPUSH 40 mg DAILY [facility] Administration CBC, BMP 12/25/19 04:00 12/25/19 04:00 ASSESSMENT/PLAN: 64 year old male with a past medical history of HTN, HLD, JUANA (not using CPAP), COPD, GERD, systolic congestive heart failure, paroxysmal atrial fibrillation (on Eliquis, s/p cardioversion 11/2016) who presented with 3 weeks of gradual onset anasarca, scrotal swelling and mild shortness of breath worse on exertion. Pt intubated and sedated for fluid overload, right sided PNA. #Neuro -Pt sedated and vented #Cardio -Patient requiring levophed to maintain blood pressure -Patient w/ frequent PVCs/ NSVT on tele -cont to hold lasix as patient effectively diuresed -cardio onboard - cxr is worsening will re asses in AM for diuresis #pulmonary -intubated -B/l PNA - vent managmenet #Renal -hypokalemia resolved today -nephro consulted -lasix held #ID -b/l PNA -ID escalated ABX coverage to merrem and vanco q12h #FEN -no fluids indicated -replete lytes as above -tube feeds #Prophy -on eliquis -protonix 40mg IV daily #Lines/Tubes -Left axillary A-line placed 12/20 -Right IJ CVC placed 12/18 -maxwell in place #Dispo -admit ICU -patient in critical condition -prognosis guarded -GOC discussion with pt mother and brother, pt remains full code. -Brother Ady states that he would prefer to be contacted over his mother: [phone] Visit type - Emergency Visit Emergency Visit: Yes ED Registration Date: 12/16/19 Care time: The patient presented to the Emergency Department on the above date and was hospitalized for further evaluation of their emergent condition. - New Patient This patient is new to me today: Yes Date on this admission: 12/25/19 - Critical Care Critical Care patient: Yes Total Critical Care Time (in minutes): 45 Critical Care Statement: The care of this patient involved high complexity decision making to prevent further life threatening deterioration of the patient's condition and/or to evaluate & treat vital organ system(s) failure or risk of failure. - Discharge Referral Referred to [facility] Med P.C.: No ATTENDING PHYSICIAN STATEMENT I saw and evaluated the patient. I reviewed the resident's note and discussed the case with the resident. I agree with the resident's findings and plan as documented. SUBJECTIVE: OBJECTIVE: ASSESSMENT AND PLAN:
[2019-12-25] MEDS: MIDAZOLAM IN 0.9 % SOD.CHLORID 100 MG/100 ML PLAST..BAG IVPB SCH ×2 (12:57)
--- NOTE | 2019-12-25 18:32 | PN ---
Progress Note, Physician History of Present Illness: Pt seen in ICU. Remains intubated/sedated. Temp of 99.8F. - Current Medication List Current Medications: Active Medications Amino Acids (Prosource No Carb Liquid Pkt) 30 ml PO BID@0800,1730 [facility] Last Admin: 12/25/19 17:46 Dose: 30 ml Documented by: Apixaban (Eliquis -) 5 mg PO BID [facility] Last Admin: 12/25/19 09:53 Dose: 5 mg Documented by: Ascorbic Acid (Vitamin C -) 1,000 mg PO DAILY [facility] Last Admin: 12/25/19 09:53 Dose: 1,000 mg Documented by: Budesonide/Formoterol Fumarate (Symbicort 80/4.5mcg -) 2 puff IH BID [facility] Last Admin: 12/24/19 21:00 Dose: Not Given Documented by: Chlorhexidine Gluconate (Peridex -) 15 ml MM BID [facility] Last Admin: 12/25/19 09:49 Dose: 15 ml Documented by: Propofol (Diprivan -) 1,000,000 mcg in 100 mls @ 3.266 mls/hr IVPB TITR [facility]; Protocol Last Admin: 12/25/19 17:46 Dose: 25 mcg/kg/min, 16.329 mls/hr Documented by: Norepinephrine Bitartrate (Levophed Bag) 16,000 mcg in 500 mls @ 9.375 mls/hr IVPB TITR [facility]; Protocol Last Admin: 12/25/19 06:45 Dose: Not Given Documented by: Midazolam HCl (Midazolam 100mg/100ml-0.9%Nacl) 100 mg in 100 mls @ 1 mls/hr IVPB TITR [facility]; Protocol Last Admin: 12/25/19 12:57 Dose: 10 mg/hr, 10 mls/hr Documented by: Vancomycin HCl (Vancomycin (Pre-Docked)) 1,000 mg in 250 mls @ 166.667 mls/hr IVPB Q12H [facility]; Protocol Last Admin: 12/25/19 15:33 Dose: 166.667 mls/hr Documented by: Meropenem 1 gm/ Dextrose 100 mls @ 200 mls/hr IVPB Q8H-IV [facility] Last Admin: 12/25/19 17:47 Dose: 200 mls/hr Documented by: Metoprolol Tartrate (Lopressor -) 25 mg PO BID [facility] Last Admin: 12/25/19 09:53 Dose: 25 mg Documented by: Multivitamins/Minerals/Vitamin C (Tab-A-Vit -) 1 tab PO DAILY [facility] Last Admin: 12/25/19 09:53 Dose: 1 tab Documented by: Pantoprazole Sodium (Protonix Iv) 40 mg IVPUSH DAILY [facility] Last Admin: 12/25/19 09:53 Dose: 40 mg Documented by: - Objective Vital Signs: Vital Signs Temperature 99.8 F H 12/25/19 08:00 Pulse Rate 89 12/25/19 12:00 Respiratory Rate 22 H 12/25/19 16:25 Blood Pressure 112/61 12/25/19 12:00 O2 Sat by Pulse Oximetry (%) 93 L 12/25/19 16:25 Constitutional: Yes: Other (intubated, sedated) Cardiovascular: Yes: Pulse Irregular Respiratory: Yes: Diminished Gastrointestinal: Yes: Normal Bowel Sounds, Soft Genitourinary: Yes: Hilario Present Integumentary: Yes: WNL Neurological: Yes: Other (on sedation) Labs: CBC, BMP 12/25/19 04:00 12/25/19 04:00 INR, PTT INR 1.34 (0.83-1.09) H 12/16/19 18:40 Microbiology 12/23/19 18:00 Sputum - Endotrachea Suction/Ventilator Gram Stain - Final 12/23/19 18:00 Sputum - Endotrachea Suction/Ventilator Sputum Culture - Preliminary NORMAL RESPIRATORY JOSE ANTONIO 12/23/19 17:51 Urine - Urine Hilario Urine Culture - Final NO GROWTH OBTAINED 12/16/19 20:13 Blood - Peripheral Venous Blood Culture - Final NO GROWTH AFTER 5 DAYS INCUBATION 12/16/19 19:50 Blood - Peripheral Venous Blood Culture - Final NO GROWTH AFTER 5 DAYS INCUBATION Laboratory Last Values WBC 9.4 K/mm3 (4.0-10.0) 12/25/19 04:00 Corrected WBC (auto) 8.60 K/mm3 12/19/19 06:00 RBC 7.02 M/mm3 (4.00-5.60) H 12/25/19 04:00 Hgb 16.1 GM/dL (11.7-16.9) 12/25/19 04:00 Hct 56.4 % (35.4-49) H 12/25/19 04:00 MCV 80.3 fl (80-96) 12/25/19 04:00 MCH 23.0 pg (25.7-33.7) L 12/25/19 04:00 MCHC 28.6 g/dl (32.0-35.9) L 12/25/19 04:00 RDW 23.7 % (11.9-15.9) H 12/25/19 04:00 Plt Count 115 K/MM3 (134-434) L D 12/25/19 04:00 MPV 9.1 fl (7.5-11.1) 12/25/19 04:00 Absolute Neuts (auto) 4.8 K/mm3 (1.5-8.0) 12/16/19 18:40 Neutrophils % 69.7 % (42.8-82.8) 12/16/19 18:40 Lymphocytes % 11.0 % (8-40) 12/16/19 18:40 Monocytes % 15.8 % (3.8-10.2) H 12/16/19 18:40 Eosinophils % 2.4 % (0-4.5) 12/16/19 18:40 Basophils % 1.1 % (0-2.0) 12/16/19 18:40 Nucleated RBC % 0 % (0-0) 12/16/19 18:40 Hypochromia 1+ 12/16/19 18:40 Platelet Estimate Adequate 12/16/19 18:40 Platelet Comment Rare giant plts 12/19/19 06:00 Polychromasia 1+ 12/16/19 18:40 Poikilocytosis 1+ 12/16/19 18:40 Anisocytosis 3+ 12/16/19 18:40 Macrocytosis 1+ 12/16/19 18:40 Target Cells 1+ 12/16/19 18:40 PT with INR 15.90 SEC (9.7-13.0) H 12/16/19 18:40 INR 1.34 (0.83-1.09) H 12/16/19 18:40 Anticoagulation Therapy No Result Required. 12/25/19 05:40 Puncture Site Left radial 12/25/19 05:40 Patient Temperature No Result Required. 12/25/19 05:40 ABG pH 7.370 (7.350-7.450) 12/25/19 05:40 ABG pCO2 68.40 mmHg (35-45) H 12/25/19 05:40 ABG pCO2 at Pt Temp 54.6 mmHg (35-45) H 12/20/19 06:00 ABG pO2 58.9 mmHg (80-100) L 12/25/19 05:40 ABG pO2 at Pt Temp 88.3 mmHg (80-100) 12/20/19 06:00 ABG HCO3 38.7 mmol/L (22-27) H 12/25/19 05:40 ABG O2 Sat (Measured) 88.9 mmHg (95-98) L 12/25/19 05:40 ABG O2 Content No Result Required. 12/25/19 05:40 ABG Base Excess 9.8 mmol/L (-2-2) H 12/25/19 05:40 Ye Test Positive 12/25/19 05:40 VBG pH 7.480 (7.310-7.410) H 12/22/19 11:45 POC VBG pCO2 50.5 mmHg (38-52) 12/22/19 11:45 POC VBG pO2 52.0 mmHg (28-48) H 12/22/19 11:45 VBG HCO3 36.9 mmol/L (23-29) H 12/22/19 11:45 VBG O2 Sat (Francis) 88.7 % (70-80) H 12/22/19 11:45 VBG Base Excess 11.1 mmol/L (-2-2) H 12/22/19 11:45 Patient On Oxygen Yes 12/25/19 05:40 O2 Delivery Device Vent 12/25/19 05:40 Oxygen Flow Rate 10% 12/25/19 05:40 Vent Mode A/c 12/25/19 05:40 Vent Rate 20 12/25/19 05:40 Mechanical Rate No Result Required. 12/25/19 05:40 PEEP 10.0 cmH2O 12/25/19 05:40 Pressure Support Vent 450 12/25/19 05:40 Sodium 137 mmol/L (136-145) 12/25/19 04:00 Potassium 3.6 mmol/L (3.5-5.1) 12/25/19 04:00 Chloride 91 mmol/L (98-107) L 12/25/19 04:00 Carbon Dioxide 41 mmol/L (21-32) H 12/25/19 04:00 Anion Gap 5 MMOL/L (8-16) L 12/25/19 04:00 BUN 57.6 mg/dL (7-18) H 12/25/19 04:00 Creatinine 1.1 mg/dL (0.55-1.3) 12/25/19 04:00 Est GFR (CKD-EPI)AfAm 80.65 12/25/19 04:00 Est GFR (CKD-EPI)NonAf 69.58 12/25/19 04:00 Random Glucose 191 mg/dL (74-106) H 12/25/19 04:00 Calcium 8.4 mg/dL (8.5-10.1) L 12/25/19 04:00 Phosphorus 3.3 mg/dL (2.5-4.9) 12/25/19 04:00 Magnesium 2.4 mg/dL (1.8-2.4) 12/25/19 04:00 Total Bilirubin 2.3 mg/dL (0.2-1) H 12/25/19 04:00 AST 30 U/L (15-37) 12/25/19 04:00 ALT 15 U/L (13-61) 12/25/19 04:00 Alkaline Phosphatase 114 U/L (45-117) 12/25/19 04:00 Creatine Kinase 50 U/L (26-308) 12/20/19 07:30 Troponin I 0.08 ng/ml (0.00-0.05) H 12/20/19 12:15 B-Natriuretic Peptide 298.0 pg/ml (5-125) H 12/19/19 06:00 Total Protein 6.0 g/dl (6.4-8.2) L 12/25/19 04:00 Albumin 1.9 g/dl (3.4-5.0) L 12/25/19 04:00 COVID-19 (RAJENDRA) Not detected (Not Detected) 12/16/19 21:25 - ....Imaging Chest X-ray: Report Reviewed (worsening congestion/effusion) Problem List - Problems (1) Edema of scrotum Code(s): N50.89 - OTHER SPECIFIED DISORDERS OF THE MALE GENITAL ORGANS (2) Morbid obesity Code(s): E66.01 - MORBID (SEVERE) OBESITY DUE TO EXCESS CALORIES (3) Acute on chronic diastolic (congestive) heart failure Code(s): I50.33 - ACUTE ON CHRONIC DIASTOLIC (CONGESTIVE) HEART FAILURE (4) Acute respiratory failure requiring reintubation Code(s): J96.00 - ACUTE RESPIRATORY FAILURE, UNSP W HYPOXIA OR HYPERCAPNIA (5) Afib Code(s): I48.91 - UNSPECIFIED ATRIAL FIBRILLATION Qualifiers: Atrial fibrillation type: paroxysmal Qualified Code(s): I48.0 - Paroxysmal atrial fibrillation Assessment/Plan Acute respiratory failure/intubation Septic ayan CHF PNA b/l LE Cellulitis b/l Hydrocele MONIE Paroxysmal AFIB COPD JUANA CAD HTN HLD -- remains intubated/sedated, on Norepinephrine -- Pt with low grade fever (appears to be trending down), repeat blood cultures -- respiratory cultures - normal jose antonio -- continue Meropenem/Vancomycin, monitor renal function. Vancomycin trough p rior to tomorrow's dose. -- LE erythema improving cc time: 38 min
[2019-12-25] MEDS ORDERED: ACETAMINOPHEN 1000 MG/100 ML VIAL (NON FORMULARY) IVPB PRN (18:46)
[2019-12-25] MEDS ORDERED: FUROSEMIDE 40 MG/4 ML INJECTABLE VIAL IVPUSH ONE (18:46)
[2019-12-25 20:19] LABS: ARTERIAL BLD GAS O2 SATURATION 96.4 mmHg (95-98); ARTERIAL BLOOD GAS BASE EXCESS 6.3 mmol/L (-2-2); ARTERIAL BLOOD GAS PO2 91.8 mmHg (80-100); ARTERIAL BLOOD GAS pH 7.344 (7.350-7.450)
[2019-12-25] MEDS: BUDESONIDE/FORMETEROL FUMARATE 80/4.5 mcg INHALER IH SCH (21:03)
[2019-12-26] MEDS ORDERED: MEROPENEM 1 GM VIAL (RESTRICTED TO ID) IVPB ONE ×3 (01:03→17:15)
[2019-12-26] MEDS ORDERED: DEXTROSE 5%-WATER 100 ML IVPB ONE ×3 (01:04→17:15)
[2019-12-26] MEDS: MEROPENEM 1 GM in DEXTROSE 5%-WATER 100 ML IVPB SCH ×3 (01:05→17:52)
[2019-12-26] MEDS: MIDAZOLAM IN 0.9 % SOD.CHLORID 100 MG/100 ML PLAST..BAG IVPB SCH ×3 (01:06→13:20)
[2019-12-26] MEDS: VANCOMYCIN 1 GRAM (PRE-DOCKED) 1,000 MG/250 ML BAG IVPB SCH ×3 (01:15→14:27)
[2019-12-26] MEDS: PROPOFOL 1,000,000 MCG/100 ML VIAL IVPB SCH ×4 (05:38→20:57)
[2019-12-26 06:32] LABS: BASO % 0.9 % (0-2.0); EOS % 3.3 % (0-4.5); HEMATOCRIT 56.1 % (35.4-49); HEMOGLOBIN 16.1 GM/dL (11.7-16.9); LYMPH % 8.5 % (8-40); MCHC 28.8 g/dl (32.0-35.9); MEAN CELL VOLUME 79.9 fl (80-96); MEAN PLT VOLUME 9.6 fl (7.5-11.1); MONO % 13.6 % (3.8-10.2); NEUT % 73.7 % (42.8-82.8); PLATELET COUNT 132 K/MM3 (134-434); RDW 23.1 % (11.9-15.9); WHITE BLOOD COUNT 9.3 K/mm3 (4.0-10.0)
[2019-12-26 06:45] LABS: RBC 7.02 M/mm3 (4.00-5.60)
[2019-12-26 06:48] LABS: ARTERIAL BLD GAS O2 SATURATION 97.9 mmHg (95-98); ARTERIAL BLOOD GAS PO2 115.5 mmHg (80-100); ARTERIAL BLOOD GAS pH 7.345 (7.350-7.450)
[2019-12-26 07:00] LABS: VENT MODE A/C; VENT RATE 20
[2019-12-26] MEDS: NOREPINEPHRINE D5W PREMIX 16,000 MCG/500 ML BAG IVPB SCH (07:00)
[2019-12-26 07:05] LABS: ALBUMIN 1.9 g/dl (3.4-5.0); BILIRUBIN,TOTAL 1.8 mg/dL (0.2-1); BLOOD UREA NITROGEN 70.7 mg/dL (7-18); CALCIUM 8.9 mg/dL (8.5-10.1); CREATININE 1.2 mg/dL (0.55-1.3); MAGNESIUM 2.7 mg/dL (1.8-2.4); PHOSPHOROUS 3.9 mg/dL (2.5-4.9); POTASSIUM 4.1 mmol/L (3.5-5.1); TOT PROT 6.1 g/dl (6.4-8.2)
[2019-12-26] MEDS ORDERED: PT OWN MED DRAWER 7, Y5N ONE ×2 (08:09→12:29)
[2019-12-26] MEDS: AMINO ACIDS/PROTEIN HYDROLYS 30 ML LIQUID.PKT PO SCH ×2 (09:21→17:53)
[2019-12-26] MEDS: MULTIVITAMINS (DAILY MVI) TABLET (FP) PO SCH (09:21)
[2019-12-26] MEDS: APIXABAN 5 MG TABLET PO SCH ×2 (09:21→21:00)
[2019-12-26] MEDS: PANTOPRAZOLE SODIUM 40 MG VIAL IVPUSH SCH (09:21)
[2019-12-26] MEDS: ASCORBIC ACID 500 MG TABLET (FP) PO SCH (09:21)
[2019-12-26] MEDS: METOPROLOL TARTRATE 25 MG TABLET (FP) PO SCH (09:21)
[2019-12-26] MEDS: CHLORHEXIDINE GLUCONATE 0.12% 15ML CUP MM SCH ×2 (09:22→21:00)
[2019-12-26] MEDS: BUDESONIDE/FORMETEROL FUMARATE 80/4.5 mcg INHALER IH SCH (09:41)
--- NOTE | 2019-12-26 10:53 | PN ---
Progress Note, Physician History of Present Illness: 64 year old male with a past medical history of HTN, HLD, JUANA (not using CPAP), COPD, GERD, systolic congestive heart failure, paroxysmal atrial fibrillation (on Eliquis, s/p cardioversion 11/2016) who presented with 3 weeks of gradual onset anasarca, scrotal swelling and mild shortness of breath worse on exertion. CXR s/f diffused bilat opacities with c/f PNA +/-fluid overload, ?bilateral l ower extremity cellulitis and bilateral hydrocele, and respiratory acidosis is admitted for Acute hypercapneic respiratory failure and Acute CHF exacerbation, intubated for progressive hypercarbic respiratory failure, decreased mental status on BiPAP. 12/26/2019 Remains intubated and sedated on AC Mode of vent, 100% FiO2 and high dose NE for hemodynamic support. Tm 101.3. - Current Medication List Current Medications: Active Medications Acetaminophen (Ofirmev Injection -) 1,000 mg IVPB Q6H PRN PRN Reason: FEVER Stop: 12/26/19 18:46 Last Admin: 12/26/19 09:09 Dose: 1,000 mg Documented by: Amino Acids (Prosource No Carb Liquid Pkt) 30 ml PO BID@0800,1730 [facility] Last Admin: 12/26/19 09:21 Dose: 30 ml Documented by: Apixaban (Eliquis -) 5 mg PO BID [facility] Last Admin: 12/26/19 09:21 Dose: 5 mg Documented by: Ascorbic Acid (Vitamin C -) 1,000 mg PO DAILY [facility] Last Admin: 12/26/19 09:21 Dose: 1,000 mg Documented by: Budesonide/Formoterol Fumarate (Symbicort 80/4.5mcg -) 2 puff IH BID [facility] Last Admin: 12/26/19 09:41 Dose: Not Given Documented by: Chlorhexidine Gluconate (Peridex -) 15 ml MM BID [facility] Last Admin: 12/26/19 09:22 Dose: 15 ml Documented by: Propofol (Diprivan -) 1,000,000 mcg in 100 mls @ 3.266 mls/hr IVPB TITR [facility]; Protocol Last Titration: 12/26/19 08:28 Dose: 20 mcg/kg/min, 13.063 mls/hr Documented by: Norepinephrine Bitartrate (Levophed Bag) 16,000 mcg in 500 mls @ 9.375 mls/hr IVPB TITR [facility]; Protocol Last Admin: 12/26/19 07:00 Dose: 20 mcg/min, 37.5 mls/hr Documented by: Midazolam HCl (Midazolam 100mg/100ml-0.9%Nacl) 100 mg in 100 mls @ 1 mls/hr IVPB TITR [facility]; Protocol Last Admin: 12/26/19 08:00 Dose: Not Given Documented by: Vancomycin HCl (Vancomycin (Pre-Docked)) 1,000 mg in 250 mls @ 166.667 mls/hr IVPB Q12H [facility]; Protocol Last Admin: 12/26/19 01:16 Dose: 166.667 mls/hr Documented by: Meropenem 1 gm/ Dextrose 100 mls @ 200 mls/hr IVPB Q8H-IV [facility] Last Admin: 12/26/19 09:22 Dose: 200 mls/hr Documented by: Metoprolol Tartrate (Lopressor -) 25 mg PO BID [facility] Last Admin: 12/26/19 09:21 Dose: 25 mg Documented by: Multivitamins/Minerals/Vitamin C (Tab-A-Vit -) 1 tab PO DAILY [facility] Last Admin: 12/26/19 09:21 Dose: 1 tab Documented by: Pantoprazole Sodium (Protonix Iv) 40 mg IVPUSH DAILY [facility] Last Admin: 12/26/19 09:21 Dose: 40 mg Documented by: - Objective Vital Signs: Vital Signs Temperature 101.3 F H 12/26/19 08:00 Pulse Rate 118 H 12/26/19 08:31 Respiratory Rate 20 12/26/19 08:31 Blood Pressure 81/61 L 12/26/19 08:00 O2 Sat by Pulse Oximetry (%) 96 12/26/19 08:31 Cardiovascular: Yes: Tachycardia, Pulse Irregular Respiratory: Yes: Intubated, Mechanically Ventilated, Rhonchi Gastrointestinal: Yes: Normal Bowel Sounds, Soft, Abdomen, Obese Genitourinary: Yes: Hilario Present Edema: Yes Labs: CBC, BMP 12/26/19 05:00 12/26/19 05:00 INR, PTT INR 1.34 (0.83-1.09) H 12/16/19 18:40 - ....Imaging EKG: Report Reviewed (Tele: PAF) Problem List - Problems (1) Congestive heart failure (CHF) Code(s): I50.9 - HEART FAILURE, UNSPECIFIED Qualifiers: Heart failure type: diastolic Heart failure chronicity: acute on chronic Qualified Code(s): I50.33 - Acute on chronic diastolic (congestive) heart failure (2) Pneumonia Code(s): J18.9 - PNEUMONIA, UNSPECIFIED ORGANISM Qualifiers: Pneumonia type: due to unspecified organism Laterality: right Lung location: lower lobe of lung Qualified Code(s): J18.9 - Pneumonia, unspecified organism (3) Acute on chronic diastolic (congestive) heart failure Code(s): I50.33 - ACUTE ON CHRONIC DIASTOLIC (CONGESTIVE) HEART FAILURE (4) Acute respiratory failure with hypoxia and hypercarbia Code(s): J96.01 - ACUTE RESPIRATORY FAILURE WITH HYPOXIA; J96.02 - ACUTE RESP IRATORY FAILURE WITH HYPERCAPNIA (5) Atrial fibrillation Code(s): I48.91 - UNSPECIFIED ATRIAL FIBRILLATION Qualifiers: Atrial fibrillation type: paroxysmal Qualified Code(s): I48.0 - Paroxysmal atrial fibrillation (6) COPD (chronic obstructive pulmonary disease) Code(s): J44.9 - CHRONIC OBSTRUCTIVE PULMONARY DISEASE, UNSPECIFIED Qualifiers: COPD type: unspecified COPD Qualified Code(s): J44.9 - Chronic obstructive pulmonary disease, unspecified (7) Hypertension Code(s): I10 - ESSENTIAL (PRIMARY) HYPERTENSION Qualifiers: Hypertension type: essential hypertension Qualified Code(s): I10 - Esse ntial (primary) hypertension (8) Lymphedema of both lower extremities Code(s): I89.0 - LYMPHEDEMA, NOT ELSEWHERE CLASSIFIED (9) Pleural effusion Code(s): J90 - PLEURAL EFFUSION, NOT ELSEWHERE CLASSIFIED Assessment/Plan 10/26/2017 Normal LV size with mild LVH, normal LV fxn, normal RV size and fxn, mild LAE, mild MR, mild-mod TR, mild KY, RVSP 43 mmHg 11/19/2016 Lexiscan Myoview: Apical ischemia, LVEF 45-52% 10/06/2016 Echocardiography revealed mild to moderate LV systolic dysfunction, moderate TR, RVSP of 30-40 mmH 10/26/2017 Normal LV size with mild LVH, normal LV fxn, normal RV size and fxn, mild LAE, mild MR, mild-mod TR, mild KY, RVSP 43 mmHg 11/19/2016 Lexiscan Myoview: Apical ischemia, LVEF 45-52% 10/06/2016 Echocardiography revealed mild to moderate LV systolic dysfunction, moderate TR, RVSP of 30-40 mmH 1. Acute on chronic Hypoxic and Hypercapneic Respiratory Failure 2. Acute on chronic LV Diastolic Heart Failure with pleural effusion: cor pulmonale 3. R/o PNA, septic shock on pressors 4. Paroxysmal atrial fibrillation with periods of rapid ventricular response post DCCV in SR, [id number] score of 2 5. Obstructive Sleep Apnea/Obesity Hypoventilation Syndrome with dental appliance 6. HTN/HCVD 7. Hypercholesterolemia 8. CAD angina pectoris 9. Bilateral cellulitis with h/o abscess s/p debridement 10. Bilateral hydrocele 11. MONIE due to hemodynamic alterations resolved 12. PVC Plan: Echo: Nl EF , mild pulmonary HTN Cor pulmonale 1. Vent management per ABG, sedation for vent synchrony, COVID 19 negative 2. Diuretics with monitor diuretic response, renal fxn and electrolytes, repleted K, lisinopril 2.5 qd held pending renal recovery and hemodynamic stability 3. Maintained on Lopressor 25 mg BID and Eliquis 5 bid with GI protection, wean pressors for MAP>65 mmHg 4. Continue abx per C&S, stress dose steroids, titrate FiO2, PEEP to keep SpO2 >90% 5. Enteral feeds
[2019-12-26 10:55] LABS: ANISOCYTOSIS 1+; MACROCYTOSIS 0
--- NOTE | 2019-12-26 11:40 | PN ---
Teaching Attending Note Name of Resident: Justin Cardona ATTENDING PHYSICIAN STATEMENT I saw and evaluated the patient. I reviewed the resident's note and discussed the case with the resident. I agree with the resident's findings and plan as documented. SUBJECTIVE: Pt seen and examined in the ICU. Remains intubated, sedated on high dose levop hed gtt. Vented on volume assist control with 100% FiO2, PEEP 16. Febrile this AM. OBJECTIVE: Vital Signs Period Temp Pulse Resp BP Sys/Clements Pulse Ox Last 24 Hr 98.3 F-101.3 F 89-120 10-22 78-114/55-73 91-96 Intake & Output 12/23/19 12/24/19 12/25/19 12/26/19 23:59 23:59 23:59 23:59 Intake Total 2307.4 1973 1876 1718 Output Total 1960 1550 1350 700 Balance 347.4 886 245 2778 Weight 112.037 kg 110.132 kg 112.491 kg 112.037 kg Gen: intubated, sedated Heart: tachycardic, regular Lung: scattered rhonchi Abd: soft, +ascites Ext: + edema CBC, BMP 12/26/19 05:00 12/26/19 05:00 Active Medications Acetaminophen (Ofirmev Injection -) 1,000 mg IVPB Q6H PRN PRN Reason: FEVER Stop: 12/26/19 18:46 Last Admin: 12/26/19 09:09 Dose: 1,000 mg Documented by: Amino Acids (Prosource No Carb Liquid Pkt) 30 ml PO BID@0800,1730 [facility] Last Admin: 12/26/19 09:21 Dose: 30 ml Documented by: Apixaban (Eliquis -) 5 mg PO BID [facility] Last Admin: 12/26/19 09:21 Dose: 5 mg Documented by: Ascorbic Acid (Vitamin C -) 1,000 mg PO DAILY [facility] Last Admin: 12/26/19 09:21 Dose: 1,000 mg Documented by: Budesonide/Formoterol Fumarate (Symbicort 80/4.5mcg -) 2 puff IH BID [facility] Last Admin: 12/26/19 09:41 Dose: Not Given Documented by: Chlorhexidine Gluconate (Peridex -) 15 ml MM BID [facility] Last Admin: 12/26/19 09:22 Dose: 15 ml Documented by: Furosemide (Lasix Injection -) 40 mg IVPUSH ONCE ONE Stop: 12/26/19 11:02 Propofol (Diprivan -) 1,000,000 mcg in 100 mls @ 3.266 mls/hr IVPB TITR [facility]; Protocol Last Titration: 12/26/19 08:28 Dose: 20 mcg/kg/min, 13.063 mls/hr Documented by: Norepinephrine Bitartrate (Levophed Bag) 16,000 mcg in 500 mls @ 9.375 mls/hr IVPB TITR [facility]; Protocol Last Admin: 12/26/19 07:00 Dose: 20 mcg/min, 37.5 mls/hr Documented by: Midazolam HCl (Midazolam 100mg/100ml-0.9%Nacl) 100 mg in 100 mls @ 1 mls/hr IVPB TITR [facility]; Protocol Last Admin: 12/26/19 08:00 Dose: Not Given Documented by: Vancomycin HCl (Vancomycin (Pre-Docked)) 1,000 mg in 250 mls @ 166.667 mls/hr IVPB Q12H [facility]; Protocol Last Admin: 12/26/19 01:16 Dose: 166.667 mls/hr Documented by: Meropenem 1 gm/ Dextrose 100 mls @ 200 mls/hr IVPB Q8H-IV [facility] Last Admin: 12/26/19 09:22 Dose: 200 mls/hr Documented by: Vasopressin 40 units/ Sodium (Chloride) 100 mls @ 5 mls/hr IVPB [facility]; Protocol Metoprolol Tartrate (Lopressor -) 25 mg PO BID [facility] Last Admin: 12/26/19 09:21 Dose: 25 mg Documented by: Multivitamins/Minerals/Vitamin C (Tab-A-Vit -) 1 tab PO DAILY [facility] Last Admin: 12/26/19 09:21 Dose: 1 tab Documented by: Pantoprazole Sodium (Protonix Iv) 40 mg IVPUSH DAILY [facility] Last Admin: 12/26/19 09:21 Dose: 40 mg Documented by: ASSESSMENT AND PLAN: Acute on Chronic Hypoxic and Hypercapneic Respiratory Failure Pneumonia Septic Shock Acute on Chronic Diastolic Heart Failure Pulmonary HTN Paroxysmal Atrial Fibrillation CAD Acute Kidney Injury Likely COPD JUANA/OHS HTN Hypercholesterolemia - continue antibiotics - titrate pressors to maintain MAP >65 - start stress dose steroids - rate control - continue anticoagulation - titrate FiO2, PEEP to keep SpO2 >90% - continue lasix - monitor urine output, creatinine - enteral feeds - DVT/GI prophylaxis - continue ICU monitoring critical care time spent in reviewing chart, evaluating patient and formulating plan 35 min
[2019-12-26] MEDS ORDERED: ALBUTEROL SO4 2.5/IPRATROPIUM 0.5 INH SOL 3 ML VIAL.NEB. NEB PRN (11:46)
--- NOTE | 2019-12-26 11:52 | PN ---
Progress Note, Physician History of Present Illness: patient continues to be intubated evens noted fevers noted - Current Medication List Current Medications: Active Medications Acetaminophen (Ofirmev Injection -) 1,000 mg IVPB Q6H PRN PRN Reason: FEVER Stop: 12/26/19 18:46 Last Admin: 12/26/19 09:09 Dose: 1,000 mg Documented by: Albuterol/Ipratropium (Duoneb -) 1 amp NEB Q4H PRN PRN Reason: SHORTNESS OF BREATH Amino Acids (Prosource No Carb Liquid Pkt) 30 ml PO BID@0800,1730 [facility] Last Admin: 12/26/19 09:21 Dose: 30 ml Documented by: Apixaban (Eliquis -) 5 mg PO BID [facility] Last Admin: 12/26/19 09:21 Dose: 5 mg Documented by: Ascorbic Acid (Vitamin C -) 1,000 mg PO DAILY [facility] Last Admin: 12/26/19 09:21 Dose: 1,000 mg Documented by: Chlorhexidine Gluconate (Peridex -) 15 ml MM BID [facility] Last Admin: 12/26/19 09:22 Dose: 15 ml Documented by: Furosemide (Lasix Injection -) 40 mg IVPUSH ONCE ONE Stop: 12/26/19 12:01 Hydrocortisone Sodium Succinate (Solu-Cortef -) 100 mg IVPUSH Q8H-IV [facility] Propofol (Diprivan -) 1,000,000 mcg in 100 mls @ 3.266 mls/hr IVPB TITR [facility]; Protocol Last Titration: 12/26/19 08:28 Dose: 20 mcg/kg/min, 13.063 mls/hr Documented by: Norepinephrine Bitartrate (Levophed Bag) 16,000 mcg in 500 mls @ 9.375 mls/hr IVPB TITR [facility]; Protocol Last Admin: 12/26/19 07:00 Dose: 20 mcg/min, 37.5 mls/hr Documented by: Midazolam HCl (Midazolam 100mg/100ml-0.9%Nacl) 100 mg in 100 mls @ 1 mls/hr IVPB TITR [facility]; Protocol Last Admin: 12/26/19 08:00 Dose: Not Given Documented by: Vancomycin HCl (Vancomycin (Pre-Docked)) 1,000 mg in 250 mls @ 166.667 mls/hr IVPB Q12H [facility]; Protocol Last Admin: 12/26/19 01:16 Dose: 166.667 mls/hr Documented by: Meropenem 1 gm/ Dextrose 100 mls @ 200 mls/hr IVPB Q8H-IV [facility] Last Admin: 12/26/19 09:22 Dose: 200 mls/hr Documented by: Vasopressin 40 units/ Sodium (Chloride) 100 mls @ 5 mls/hr IVPB [facility]; Protocol Metoprolol Tartrate (Lopressor -) 25 mg PO BID [facility] Last Admin: 12/26/19 09:21 Dose: 25 mg Documented by: Multivitamins/Minerals/Vitamin C (Tab-A-Vit -) 1 tab PO DAILY [facility] Last Admin: 12/26/19 09:21 Dose: 1 tab Documented by: Pantoprazole Sodium (Protonix Iv) 40 mg IVPUSH DAILY [facility] Last Admin: 12/26/19 09:21 Dose: 40 mg Documented by: - Objective Vital Signs: Vital Signs Temperature 98.3 F 12/26/19 10:00 Pulse Rate 99 H 12/26/19 10:00 Respiratory Rate 12/26/19 11:42 Blood Pressure 100/63 12/26/19 10:00 O2 Sat by Pulse Oximetry (%) 91 L 12/26/19 11:42 Constitutional: Yes: Other Cardiovascular: Yes: S1, S2 Respiratory: Yes: Intubated, Mechanically Ventilated Gastrointestinal: Yes: Normal Bowel Sounds, Soft Musculoskeletal: Yes: WNL Extremities: Yes: WNL Labs: CBC, BMP 12/26/19 05:00 12/26/19 05:00 INR, PTT INR 1.34 (0.83-1.09) H 12/16/19 18:40 - ....Imaging Chest X-ray: Report Reviewed, Image Reviewed Assessment/Plan 64 year old male with a past medical history of HTN, HLD, JUANA (not using CPAP), COPD, GERD, systolic congestive heart failure, paroxysmal atrial fibrillation (on Eliquis, s/p cardioversion 11/2016) who presented with 3 weeks of gradual onset anasarca, scrotal swelling and mild shortness of breath worse on exertion. He as found to have a PNA, on clinical exam signs of fluid overload, ?bilateral lower extremity cellulitis and bilateral hydrocele. 1. Acute Respiratory Failure 2. Fluid Overload/ 3.Bilateral Lower Extremity Cellulitis 4. Hydrocele 5. Hypertension 6. Atrial Fibrillation 7. Elevated Troponin 8. Rule Out COVID 9 pna plan repeat blood cx pending continue abx monitor fevers icu mgmt vent mgmt res as per icu check vanco level cc 40 min
[2019-12-26] MEDS ORDERED: FUROSEMIDE 40 MG/4 ML INJECTABLE VIAL IVPUSH ONE (12:00)
[2019-12-26] MEDS: HYDROCORTISONE SOD SUCCINATE 100 MG/2 ML VIAL IVPUSH SCH ×2 (12:16→17:53)
--- NOTE | 2019-12-26 12:18 | EKG ---
Test Reason : Blood Pressure : / mmHG Vent. Rate : 106 BPM Atrial Rate : 089 BPM P-R Int : 000 ms QRS Dur : 082 ms QT Int : 392 ms P-R-T Axes : 000 100 -47 degrees QTc Int : 520 ms ACCELERATED JUNCTIONAL RHYTHM WITH FREQUENT PREMATURE VENTRICULAR COMPLEXES POSSIBLE RIGHT VENTRICULAR HYPERTROPHY Rightward axis SEPTAL INFARCT , AGE UNDETERMINED T WAVE ABNORMALITY, CONSIDER INFEROLATERAL ISCHEMIA PROLONGED QT ABNORMAL ECG WHEN COMPARED WITH ECG OF 20-DEC-2019 09:52, SIGNIFICANT CHANGES HAVE OCCURRED Confirmed by Maria Guadalupe Olsen ([id number]) on 12/26/2019 12:18:11 PM Referred By: Confirmed By:Maria Guadalupe Olsen
[2019-12-26 12:28] LABS: PLATELET ESTIMATE DECREASED
--- NOTE | 2019-12-26 12:52 | PN ---
Physical Exam: SUBJECTIVE: Patient seen and examined. High temp overnight 100.3. On vanc and meropenem. Afib on eliquis OBJECTIVE: Vital Signs Period Temp Pulse Resp BP Sys/Clements Pulse Ox Last 24 Hr 98.3 F-101.3 F 96-120 15-22 78-114/51-73 91-96 GENERAL: sedated, vented EYES: Pupils equal, round and reactive to light, extraocular movements intact, sclera anicteric, conjunctiva clear. No lid lag. EARS, NOSE, THROAT: dry, mucous membranes. LUNGS: Breath sounds equal, clear to auscultation bilaterally. No wheezes, and no crackles. on Vent HEART: Regular rate and rhythm, normal S1 and S2 without murmur, rub or gallop. ABDOMEN: Soft, nontender, not distended, normoactive bowel sounds, no guarding, no rebound, no masses. UPPER EXTREMITIES: 2+ pulses, warm, well-perfused. No cyanosis. No peripheral edema. LOWER EXTREMITIES: 2+ pulses, warm, well-perfused. No calf tenderness. No peripheral edema. SKIN: Warm, dry, normal turgor, no rashes or lesions noted. Laboratory Results - last 24 hr 12/25/19 12/26/19 12/26/19 20:08 05:00 05:00 WBC 9.3 RBC 7.02 H Hgb 16.1 Hct 56.1 H MCV 79.9 L MCH 23.0 L MCHC 28.8 L RDW 23.1 H Plt Count 132 L MPV 9.6 Absolute Neuts (auto) 6.8 Neutrophils % 73.7 Lymphocytes % 8.5 D Monocytes % 13.6 H Eosinophils % 3.3 Basophils % 0.9 Nucleated RBC % 0 Hypochromia 0 Platelet Estimate Decreased Platelet Comment Present Polychromasia 1+ Poikilocytosis 2+ Anisocytosis 1+ Microcytosis 1+ Macrocytosis 0 Anticoagulation Therapy No Result Required. Puncture Site Arterial line Patient Temperature No Result Required. ABG pH 7.344 L ABG pCO2 65.60 H ABG pO2 91.8 ABG HCO3 34.9 H ABG O2 Sat (Measured) 96.4 ABG O2 Content No Result Required. ABG Base Excess 6.3 H Ye Test No Result Required. Patient On Oxygen Yes O2 Delivery Device No Result Required. Oxygen Flow Rate 100 Vent Mode No Result Required. Vent Rate No Result Required. Mechanical Rate No Result Required. PEEP 16.0 Pressure Support Vent 450 Sodium 135 L Potassium 4.1 Chloride 89 L Carbon Dioxide 36 H Anion Gap 9 BUN 70.7 H Creatinine 1.2 Est GFR (CKD-EPI)AfAm 72.59 Est GFR (CKD-EPI)NonAf 62.63 Random Glucose 188 H Calcium 8.9 Phosphorus 3.9 Magnesium 2.7 H Total Bilirubin 1.8 H AST 27 ALT 22 Alkaline Phosphatase 156 H Total Protein 6.1 L Albumin 1.9 L 12/26/19 06:20 WBC RBC Hgb Hct MCV MCH MCHC RDW Plt Count MPV Absolute Neuts (auto) Neutrophils % Lymphocytes % Monocytes % Eosinophils % Basophils % Nucleated RBC % Hypochromia Platelet Estimate Platelet Comment Polychromasia Poikilocytosis Anisocytosis Microcytosis Macrocytosis Anticoagulation Therapy No Result Required. Puncture Site Arterial line Patient Temperature No Result Required. ABG pH 7.345 L ABG pCO2 64.40 H ABG pO2 115.5 H ABG HCO3 34.4 H ABG O2 Sat (Measured) 97.9 ABG O2 Content No Result Required. ABG Base Excess 6.0 H Ye Test Not applicable Patient On Oxygen Yes O2 Delivery Device Vent Oxygen Flow Rate 100% Vent Mode A/c Vent Rate 20 Mechanical Rate Yes PEEP 16.0 Pressure Support Vent 450 Sodium Potassium Chloride Carbon Dioxide Anion Gap BUN Creatinine Est GFR (CKD-EPI)AfAm Est GFR (CKD-EPI)NonAf Random Glucose Calcium Phosphorus Magnesium Total Bilirubin AST ALT Alkaline Phosphatase Total Protein Albumin Active Medications Generic Name Dose Route Start Last Admin Trade Name Freq PRN Reason Stop Dose Admin Acetaminophen 1,000 mg 12/25/19 18:46 12/26/19 09:09 Ofirmev Injection - IVPB 12/26/19 18:46 1,000 mg Q6H PRN Administration FEVER Albuterol/Ipratropium 1 amp 12/26/19 11:46 Duoneb - NEB Q4H PRN SHORTNESS OF BREATH Amino Acids 30 ml 12/21/19 17:30 12/26/19 09:21 Prosource No Carb Liquid Pkt PO 30 ml BID@0800,1730 [facility] Administration Apixaban 5 mg 12/16/19 22:00 12/26/19 09:21 Eliquis - PO 5 mg BID [facility] Administration Ascorbic Acid 1,000 mg 12/17/19 10:00 12/26/19 09:21 Vitamin C - PO 1,000 mg DAILY [facility] Administration Chlorhexidine Gluconate 15 ml 12/22/19 12:30 12/26/19 09:22 Peridex - MM 15 ml BID [facility] Administration Hydrocortisone Sodium Succinate 100 mg 12/26/19 12:00 12/26/19 12:16 Solu-Cortef - IVPUSH 100 mg Q8H-IV [facility] Administration Propofol 1,000,000 mcg in 100 mls @ 3.266 mls/hr 12/17/19 04:30 12/26/19 08:28 Diprivan - IVPB 20 mcg/kg/min TITR [facility] 13.063 mls/hr Titration Protocol 5 MCG/KG/MIN Norepinephrine Bitartrate 16,000 mcg in 500 mls @ 9.375 mls/hr 12/21/19 06:45 12/26/19 07:00 Levophed Bag IVPB 20 mcg/min TITR [facility] 37.5 mls/hr Administration Protocol 5 MCG/MIN Midazolam HCl 100 mg in 100 mls @ 1 mls/hr 12/22/19 08:00 12/26/19 08:00 Midazolam 100mg/100ml-0.9%Nacl IVPB Not Given TITR [facility] Protocol 1 MG/HR Vancomycin HCl 1,000 mg in 250 mls @ 166.667 mls/hr 12/24/19 14:15 12/26/19 01:16 Vancomycin (Pre-Docked) IVPB 166.667 mls/hr Q12H [facility] Administration Protocol Meropenem 1 gm/ Dextrose 100 mls @ 200 mls/hr 12/25/19 02:45 12/26/19 09:22 IVPB 200 mls/hr Q8H-IV [facility] Administration Vasopressin 40 units/ Sodium 100 mls @ 5 mls/hr 12/26/19 12:00 Chloride IVPB ASDIR [facility] Protocol 2 UNITS/HR Metoprolol Tartrate 25 mg 12/19/19 12:00 12/26/19 09:21 Lopressor - PO 25 mg BID [facility] Administration Multivitamins/Minerals/Vitamin C 1 tab 12/17/19 10:00 12/26/19 09:21 Tab-A-Vit - PO 1 tab DAILY [facility] Administration Pantoprazole Sodium 40 mg 12/19/19 10:00 12/26/19 09:21 Protonix Iv IVPUSH 40 mg DAILY [facility] Administration ASSESSMENT/PLAN: 64 year old male with a past medical history of HTN, HLD, JUANA (not using CPAP), COPD, GERD, systolic congestive heart failure, paroxysmal atrial fibrillation (on Eliquis, s/p cardioversion 11/2016) who presented with 3 weeks of gradual onset anasarca, scrotal swelling and mild shortness of breath worse on exertion, found to have right lobe PNA, fluid overload, bilateral lower extremity cellulitis and bilateral hydrocele, and respiratory acidosis is admitted for Acute hypercapneic respiratory failure and Acute CHF exacerbation #Neuro Pt sedated and vented Propofol 20, versed 5 #CV Fluid Overload 2/2 sCHF exacerbation, CXR- with small right and left pleural effusion monitor renal studies, electrolytes, strict I&O's and daily weights Clinical signs of severe volume overload- anasarca, b/l LE edema- Improved Cardiology following on lisinopril- hold until peter improves cont metoprolol Lasix 80 TID held due to low BP, can Give 40 lasix daily Pt on eliquis On NE 25, wean off, started on vaso Irregular rhythm on Tele, r/p EKG ordered- will f/u #Pulm Acute hypercapneic resp failure 2/2 to Community acquired pneumonia vs COPD exacerbation CXR- right mid and lower lung and left lung base pneumonia ABG showed 7.34/64/115/34 AC 20/450/100/16 Plat 26, PIP 34 SvO2 measurement >70, consistent w/ distributive shock Hydrocortisone 100 Q8H #ID Bilateral Lower Extremity Cellulitis abs switched to Meropenem D2, Vanc D3 Vanc trough for 2 pm- will f/u ID consulted #Renal stable s/p acetazolamide Lasix 40 daily, check response [id number], [id number] #GI Anasarca- improved cont diuresis #Heme monitor Thrombocytopenia likely from sepsis will monitor for now #DVT ppx On eliquis #GI ppx protonix Lines LUE A-line 12/20 RIJ 12/18 ET 7.5 FEN monitor lytes Fluid restrictions cont feeds Aspiration risk Dispo: cont abx, monitor I&Os, cont lasix, f/u EKG, monitor I&Os, f/u vanc trough Mothers # [phone] -cell, -Home As per brother Ady, would like to be updated as opposed to his mother Attempted to notify and contact pt's mother/ as per chart, unable to reach. Will continue trying Visit type - Emergency Visit Emergency Visit: Yes ED Registration Date: 12/16/19 Care time: The patient presented to the Emergency Department on the above date and was hospitalized for further evaluation of their emergent condition. - New Patient This patient is new to me today: Yes Date on this admission: 01/03/20 - Critical Care Critical Care patient: No - Discharge Referral Referred to [facility] Med P.C.: No ATTENDING PHYSICIAN STATEMENT I saw and evaluated the patient. I reviewed the resident's note and discussed the case with the resident. I agree with the resident's findings and plan as documented. SUBJECTIVE: OBJECTIVE: ASSESSMENT AND PLAN:
[2019-12-26] MEDS: VASOPRESSIN 40 UNITS in SODIUM CHLORIDE 98 ML IVPB SCH (13:03)
--- NOTE | 2019-12-26 14:31 | PN ---
Progress Note, Physician History of Present Illness: Pt seen and examined at bedside. He remains in the ICU. He remains intubated. - Current Medication List Current Medications: Active Medications Acetaminophen (Ofirmev Injection -) 1,000 mg IVPB Q6H PRN PRN Reason: FEVER Stop: 12/26/19 18:46 Last Admin: 12/26/19 09:09 Dose: 1,000 mg Documented by: Albuterol/Ipratropium (Duoneb -) 1 amp NEB Q4H PRN PRN Reason: SHORTNESS OF BREATH Amino Acids (Prosource No Carb Liquid Pkt) 30 ml PO BID@0800,1730 [facility] Last Admin: 12/26/19 09:21 Dose: 30 ml Documented by: Apixaban (Eliquis -) 5 mg PO BID [facility] Last Admin: 12/26/19 09:21 Dose: 5 mg Documented by: Ascorbic Acid (Vitamin C -) 1,000 mg PO DAILY [facility] Last Admin: 12/26/19 09:21 Dose: 1,000 mg Documented by: Chlorhexidine Gluconate (Peridex -) 15 ml MM BID [facility] Last Admin: 12/26/19 09:22 Dose: 15 ml Documented by: Hydrocortisone Sodium Succinate (Solu-Cortef -) 100 mg IVPUSH Q8H-IV [facility] Last Admin: 12/26/19 12:16 Dose: 100 mg Documented by: Propofol (Diprivan -) 1,000,000 mcg in 100 mls @ 3.266 mls/hr IVPB TITR [facility]; P rotocol Last Titration: 12/26/19 08:28 Dose: 20 mcg/kg/min, 13.063 mls/hr Documented by: Norepinephrine Bitartrate (Levophed Bag) 16,000 mcg in 500 mls @ 9.375 mls/hr IVPB TITR [facility]; Protocol Last Titration: 12/26/19 14:00 Dose: 20 mcg/min, 37.5 mls/hr Documented by: Midazolam HCl (Midazolam 100mg/100ml-0.9%Nacl) 100 mg in 100 mls @ 1 mls/hr IVPB TITR [facility]; Protocol Last Admin: 12/26/19 08:00 Dose: Not Given Documented by: Vancomycin HCl (Vancomycin (Pre-Docked)) 1,000 mg in 250 mls @ 166.667 mls/hr IVPB Q12H [facility]; Protocol Last Admin: 12/26/19 14:27 Dose: Not Given Documented by: Meropenem 1 gm/ Dextrose 100 mls @ 200 mls/hr IVPB Q8H-IV [facility] Last Admin: 12/26/19 09:22 Dose: 200 mls/hr Documented by: Vasopressin 40 units/ Sodium (Chloride) 100 mls @ 5 mls/hr IVPB ASDIR [facility]; Protocol Last Admin: 12/26/19 13:03 Dose: 2 units/hr, 5 mls/hr Documented by: Metoprolol Tartrate (Lopressor -) 25 mg PO BID [facility] Last Admin: 12/26/19 09:21 Dose: 25 mg Documented by: Multivitamins/Minerals/Vitamin C (Tab-A-Vit -) 1 tab PO DAILY [facility] Last Admin: 12/26/19 09:21 Dose: 1 tab Documented by: Pantoprazole Sodium (Protonix Iv) 40 mg IVPUSH DAILY [facility] Last Admin: 12/26/19 09:21 Dose: 40 mg Documented by: - Objective Vital Signs: Vital Signs Temperature 98.2 F 12/26/19 14:00 Pulse Rate 106 H 12/26/19 14:00 Respiratory Rate 12/26/19 14:00 Blood Pressure 116/62 12/26/19 14:00 O2 Sat by Pulse Oximetry (%) 91 L 12/26/19 11:42 Constitutional: Yes: Calm Eyes: Yes: Conjunctiva Clear HENT: Yes: Atraumatic Neck: Yes: Supple Cardiovascular: Yes: S1, S2 Respiratory: Yes: Mechanically Ventilated Gastrointestinal: Yes: Soft, Abdomen, Obese Genitourinary: Yes: Hilario Present Musculoskeletal: Yes: WNL Edema: Yes Edema: LLE: 1+, RLE: 1+ Neurological: Yes: Lethargy Labs: CBC, BMP 12/26/19 05:00 12/26/19 05:00 INR, PTT INR 1.34 (0.83-1.09) H 12/16/19 18:40 Problem List - Problems (1) Anasarca Code(s): R60.1 - GENERALIZED EDEMA (2) Congestive heart failure (CHF) Code(s): I50.9 - HEART FAILURE, UNSPECIFIED Qualifiers: Heart failure type: diastolic Heart failure chronicity: acute on chronic Qualified Code(s): I50.33 - Acute on chronic diastolic (congestive) heart failure (3) Acute kidney injury Code(s): N17.9 - ACUTE KIDNEY FAILURE, UNSPECIFIED Assessment/Plan Current Medications Generic Name Dose Route Start Last Admin Trade Name Freq PRN Reason Stop Dose Admin Acetaminophen 1,000 mg 12/25/19 18:46 12/26/19 09:09 Ofirmev Injection - IVPB 12/26/19 18:46 1,000 mg Q6H PRN Administration FEVER Albuterol/Ipratropium 1 amp 12/26/19 11:46 Duoneb - NEB Q4H PRN SHORTNESS OF BREATH Amino Acids 30 ml 12/21/19 17:30 12/26/19 09:21 Prosource No Carb Liquid Pkt PO 30 ml BID@0800,1730 [facility] Administration Apixaban 5 mg 12/16/19 22:00 12/26/19 09:21 Eliquis - PO 5 mg BID [facility] Administration Ascorbic Acid 1,000 mg 12/17/19 10:00 12/26/19 09:21 Vitamin C - PO 1,000 mg DAILY [facility] Administration Chlorhexidine Gluconate 15 ml 12/22/19 12:30 12/26/19 09:22 Peridex - MM 15 ml BID [facility] Administration Hydrocortisone Sodium Succinate 100 mg 12/26/19 12:00 12/26/19 12:16 Solu-Cortef - IVPUSH 100 mg Q8H-IV [facility] Administration Propofol 1,000,000 mcg in 100 mls @ 3.266 mls/hr 12/17/19 04:30 12/26/19 08:28 Diprivan - IVPB 20 mcg/kg/min TITR [facility] 13.063 mls/hr Titration Protocol 5 MCG/KG/MIN Norepinephrine Bitartrate 16,000 mcg in 500 mls @ 9.375 mls/hr 12/21/19 06:45 12/26/19 14:00 Levophed Bag IVPB 20 mcg/min TITR [facility] 37.5 mls/hr Titration Protocol 5 MCG/MIN Midazolam HCl 100 mg in 100 mls @ 1 mls/hr 12/22/19 08:00 12/26/19 08:00 Midazolam 100mg/100ml-0.9%Nacl IVPB Not Given TITR [facility] Protocol 1 MG/HR Vancomycin HCl 1,000 mg in 250 mls @ 166.667 mls/hr 12/24/19 14:15 12/26/19 14:27 Vancomycin (Pre-Docked) IVPB Not Given Q12H [facility] Protocol Meropenem 1 gm/ Dextrose 100 mls @ 200 mls/hr 12/25/19 02:45 12/26/19 09:22 IVPB 200 mls/hr Q8H-IV [facility] Administration Vasopressin 40 units/ Sodium 100 mls @ 5 mls/hr 12/26/19 12:00 12/26/19 13:03 Chloride IVPB 2 units/hr ASDIR [facility] 5 mls/hr Administration Protocol 2 UNITS/HR Metoprolol Tartrate 25 mg 12/19/19 12:00 12/26/19 09:21 Lopressor - PO 25 mg BID [facility] Administration Multivitamins/Minerals/Vitamin C 1 tab 12/17/19 10:00 12/26/19 09:21 Tab-A-Vit - PO 1 tab DAILY [facility] Administration Pantoprazole Sodium 40 mg 12/19/19 10:00 12/26/19 09:21 Protonix Iv IVPUSH 40 mg DAILY [facility] Administration Impression 1. MONIE 2. CHF acute 3. acute resp failure requiring intubation 4. atrial fibrillation 5. hx of htn 6. obesity 7. chronic smoker 8. hypokalemia Plan - renal function stable - can resume lasix - monitor lytes - cont vent support - monitor urine output - discussed with ICU team - hold areli for now - monitor volume status
[2019-12-27] MEDS: HYDROCORTISONE SOD SUCCINATE 100 MG/2 ML VIAL IVPUSH SCH ×3 (01:43→18:10)
[2019-12-27] MEDS: MEROPENEM 1 GM in DEXTROSE 5%-WATER 100 ML IVPB SCH ×3 (01:43→17:23)
[2019-12-27] MEDS: MIDAZOLAM IN 0.9 % SOD.CHLORID 100 MG/100 ML PLAST..BAG IVPB SCH ×2 (05:54→23:36)
[2019-12-27] MEDS: PROPOFOL 1,000,000 MCG/100 ML VIAL IVPB SCH ×2 (05:54→23:37)
[2019-12-27 06:57] LABS: HEMATOCRIT 51.7 % (35.4-49); HEMOGLOBIN 14.8 GM/dL (11.7-16.9); MCH 23.1 pg (25.7-33.7); MCHC 28.6 g/dl (32.0-35.9); MEAN CELL VOLUME 80.7 fl (80-96); MEAN PLT VOLUME 9.7 fl (7.5-11.1); RBC 6.41 M/mm3 (4.00-5.60); RDW 23.5 % (11.9-15.9); WHITE BLOOD COUNT 7.4 K/mm3 (4.0-10.0)
[2019-12-27 07:33] LABS: ALBUMIN 1.8 g/dl (3.4-5.0); BILIRUBIN,TOTAL 1.6 mg/dL (0.2-1); CALCIUM 8.7 mg/dL (8.5-10.1); CREATININE 1.4 mg/dL (0.55-1.3); MAGNESIUM 2.9 mg/dL (1.8-2.4); PHOSPHOROUS 4.3 mg/dL (2.5-4.9); POTASSIUM 4.5 mmol/L (3.5-5.1); TOT PROT 5.8 g/dl (6.4-8.2)
[2019-12-27 07:36] LABS: BLOOD UREA NITROGEN 96.5 mg/dL (7-18)
[2019-12-27] MEDS: AMINO ACIDS/PROTEIN HYDROLYS 30 ML LIQUID.PKT PO SCH ×2 (08:00→18:10)
[2019-12-27] MEDS: ASCORBIC ACID 500 MG TABLET (FP) PO SCH (09:59)
[2019-12-27] MEDS: PANTOPRAZOLE SODIUM 40 MG VIAL IVPUSH SCH (09:59)
[2019-12-27] MEDS: APIXABAN 5 MG TABLET PO SCH ×2 (09:59→22:55)
[2019-12-27] MEDS: MULTIVITAMINS (DAILY MVI) TABLET (FP) PO SCH (09:59)
[2019-12-27] MEDS: CHLORHEXIDINE GLUCONATE 0.12% 15ML CUP MM SCH ×2 (10:00→23:01)
[2019-12-27] MEDS ORDERED: MEROPENEM 1 GM VIAL (RESTRICTED TO ID) IVPB ONE ×2 (10:01→17:21)
[2019-12-27] MEDS ORDERED: DEXTROSE 5%-WATER 100 ML IVPB ONE ×2 (10:01→17:22)
--- NOTE | 2019-12-27 10:26 | PN ---
Progress Note, Physician History of Present Illness: Pt seen and examined at bedside. He remains in the ICU. He remains intubated. - Current Medication List Current Medications: Active Medications Albuterol/Ipratropium (Duoneb -) 1 amp NEB Q4H PRN PRN Reason: SHORTNESS OF BREATH Amino Acids (Prosource No Carb Liquid Pkt) 30 ml PO BID@0800,1730 [facility] Last Admin: 12/27/19 08:00 Dose: 30 ml Documented by: Apixaban (Eliquis -) 5 mg PO BID [facility] Last Admin: 12/27/19 09:59 Dose: 5 mg Documented by: Ascorbic Acid (Vitamin C -) 1,000 mg PO DAILY [facility] Last Admin: 12/27/19 09:59 Dose: 1,000 mg Documented by: Chlorhexidine Gluconate (Peridex -) 15 ml MM BID [facility] Last Admin: 12/27/19 10:00 Dose: 15 ml Documented by: Hydrocortisone Sodium Succinate (Solu-Cortef -) 100 mg IVPUSH Q8H-IV [facility] Last Admin: 12/27/19 09:59 Dose: 100 mg Documented by: Propofol (Diprivan -) 1,000,000 mcg in 100 mls @ 3.266 mls/hr IVPB TITR [facility]; Protocol Last Admin: 12/27/19 05:54 Dose: 20 mcg/kg/min, 13.063 mls/hr Documented by: Norepinephrine Bitartrate (Levophed Bag) 16,000 mcg in 500 mls @ 9.375 mls/hr IVPB TITR [facility]; Protocol Last Titration: 12/27/19 06:02 Dose: 0 mcg/min, 0 mls/hr Documented by: Midazolam HCl (Midazolam 100mg/100ml-0.9%Nacl) 100 mg in 100 mls @ 1 mls/hr IVPB TITR [facility]; Protocol Last Admin: 12/27/19 05:54 Dose: 5 mg/hr, 5 mls/hr Documented by: Vancomycin HCl (Vancomycin (Pre-Docked)) 1,000 mg in 250 mls @ 166.667 mls/hr IVPB Q12H [facility]; Protocol Last Admin: 12/26/19 14:27 Dose: Not Given Documented by: Meropenem 1 gm/ Dextrose 100 mls @ 200 mls/hr IVPB Q8H-IV [facility] Last Admin: 12/27/19 10:02 Dose: 200 mls/hr Documented by: Vasopressin 40 units/ Sodium (Chloride) 100 mls @ 5 mls/hr IVPB ASDIR [facility]; Protocol Last Titration: 12/27/19 05:42 Dose: 6 units/hr, 15 mls/hr Documented by: Metoprolol Tartrate (Lopressor -) 25 mg PO BID [facility] Last Admin: 12/26/19 09:21 Dose: 25 mg Documented by: Multivitamins/Minerals/Vitamin C (Tab-A-Vit -) 1 tab PO DAILY [facility] Last Admin: 12/27/19 09:59 Dose: 1 tab Documented by: Pantoprazole Sodium (Protonix Iv) 40 mg IVPUSH DAILY [facility] Last Admin: 12/27/19 09:59 Dose: 40 mg Documented by: - Objective Vital Signs: Vital Signs Temperature 101.3 F H 12/27/19 06:00 Pulse Rate 90 12/27/19 08:00 Respiratory Rate 20 12/27/19 09:00 Blood Pressure 99/59 L 12/27/19 08:00 O2 Sat by Pulse Oximetry (%) 97 12/27/19 09:00 Constitutional: Yes: Calm Eyes: Yes: Conjunctiva Clear HENT: Yes: Atraumatic Neck: Yes: Supple Cardiovascular: Yes: S1, S2 Respiratory: Yes: Mechanically Ventilated Gastrointestinal: Yes: Soft Genitourinary: Yes: Hilario Present Edema: No Integumentary: Yes: Venous Stasis Changes Neurological: Yes: Lethargy Labs: CBC, BMP 12/27/19 06:23 12/27/19 06:23 INR, PTT INR 1.34 (0.83-1.09) H 12/16/19 18:40 - ....Imaging Chest X-ray: Report Reviewed Problem List - Problems (1) Anasarca Code(s): R60.1 - GENERALIZED EDEMA (2) Congestive heart failure (CHF) Code(s): I50.9 - HEART FAILURE, UNSPECIFIED Qualifiers: Heart failure type: diastolic Heart failure chronicity: acute on chronic Qualified Code(s): I50.33 - Acute on chronic diastolic (congestive) heart failure (3) Acute kidney injury Code(s): N17.9 - ACUTE KIDNEY FAILURE, UNSPECIFIED Assessment/Plan Current Medications Generic Name Dose Route Start Last Admin Trade Name Taylor PRN Reason Stop Dose Admin Albuterol/Ipratropium 1 amp 12/26/19 11:46 Duoneb - NEB Q4H PRN SHORTNESS OF BREATH Amino Acids 30 ml 12/21/19 17:30 12/27/19 08:00 Prosource No Carb Liquid Pkt PO 30 ml BID@0800,1730 [facility] Administration Apixaban 5 mg 12/16/19 22:00 12/27/19 09:59 Eliquis - PO 5 mg BID [facility] Administration Ascorbic Acid 1,000 mg 12/17/19 10:00 12/27/19 09:59 Vitamin C - PO 1,000 mg DAILY [facility] Administration Chlorhexidine Gluconate 15 ml 12/22/19 12:30 12/27/19 10:00 Peridex - MM 15 ml BID [facility] Administration Hydrocortisone Sodium Succinate 100 mg 12/26/19 12:00 12/27/19 09:59 Solu-Cortef - IVPUSH 100 mg Q8H-IV [facility] Administration Propofol 1,000,000 mcg in 100 mls @ 3.266 mls/hr 12/17/19 04:30 12/27/19 05:54 Diprivan - IVPB 20 mcg/kg/min TITR [facility] 13.063 mls/hr Administration Protocol 5 MCG/KG/MIN Norepinephrine Bitartrate 16,000 mcg in 500 mls @ 9.375 mls/hr 12/21/19 06:45 12/27/19 06:02 Levophed Bag IVPB 0 mcg/min TITR [facility] 0 mls/hr Titration Protocol 5 MCG/MIN Midazolam HCl 100 mg in 100 mls @ 1 mls/hr 12/22/19 08:00 12/27/19 05:54 Midazolam 100mg/100ml-0.9%Nacl IVPB 5 mg/hr TITR [facility] 5 mls/hr Administration Protocol 1 MG/HR Vancomycin HCl 1,000 mg in 250 mls @ 166.667 mls/hr 12/24/19 14:15 12/26/19 14:27 Vancomycin (Pre-Docked) IVPB Not Given Q12H [facility] Protocol Meropenem 1 gm/ Dextrose 100 mls @ 200 mls/hr 12/25/19 02:45 12/27/19 10:02 IVPB 200 mls/hr Q8H-IV [facility] Administration Vasopressin 40 units/ Sodium 100 mls @ 5 mls/hr 12/26/19 12:00 12/27/19 05:42 Chloride IVPB 6 units/hr ASDIR [facility] 15 mls/hr Titration Protocol 2 UNITS/HR Metoprolol Tartrate 25 mg 12/19/19 12:00 12/26/19 09:21 Lopressor - PO 25 mg BID [facility] Administration Multivitamins/Minerals/Vitamin C 1 tab 12/17/19 10:00 12/27/19 09:59 Tab-A-Vit - PO 1 tab DAILY [facility] Administration Pantoprazole Sodium 40 mg 12/19/19 10:00 12/27/19 09:59 Protonix Iv IVPUSH 40 mg DAILY [facility] Administration Impression 1. MONIE 2. CHF acute 3. acute resp failure requiring intubation 4. atrial fibrillation 5. hx of htn 6. obesity 7. chronic smoker 8. hypokalemia Plan - cont pressors to map 65 - monitor renal function - monitor urine output - lasix prn - daily cxr, reviewed todays - hold areli and bp meds - monitor volume status
[2019-12-27 10:51] LABS: PLATELET COUNT 132 K/MM3 (134-434)
--- NOTE | 2019-12-27 11:06 | PN ---
Teaching Attending Note Name of Resident: Kodak Roach ATTENDING PHYSICIAN STATEMENT I saw and evaluated the patient. I reviewed the resident's note and discussed the case with the resident. I agree with the resident's findings and plan as documented. SUBJECTIVE: Pt seen and examined in the ICU. Remains intubated, sedated on vasopressin gtt. Off levophed gtt. Vented on volume assist control with 100% FiO2, PEEP 16 decreased to 10. Febrile overnight. OBJECTIVE: Vital Signs Period Temp Pulse Resp BP Sys/Clements Pulse Ox Last 24 Hr 97.9 F-101.3 F 87-107 18-21 85-128/47-72 91-97 Intake & Output 12/24/19 12/25/19 12/26/19 12/27/19 23:59 23:59 23:59 23:59 Intake Total 1973 1876 3122.1 1504 Output Total 1550 1350 1680 675 Balance 909 665 4717.1 829 Weight 110.132 kg 112.491 kg 112.037 kg 113.67 kg Gen: intubated, sedated Heart: tachycardic, regular Lung: scattered rhonchi Abd: soft, +ascites Ext: + edema CBC, BMP 12/27/19 06:23 12/27/19 06:23 Active Medications Albuterol/Ipratropium (Duoneb -) 1 amp NEB Q4H PRN PRN Reason: SHORTNESS OF BREATH Amino Acids (Prosource No Carb Liquid Pkt) 30 ml PO BID@0800,1730 [facility] Last Admin: 12/27/19 08:00 Dose: 30 ml Documented by: Apixaban (Eliquis -) 5 mg PO BID [facility] Last Admin: 12/27/19 09:59 Dose: 5 mg Documented by: Ascorbic Acid (Vitamin C -) 1,000 mg PO DAILY [facility] Last Admin: 12/27/19 09:59 Dose: 1,000 mg Documented by: Chlorhexidine Gluconate (Peridex -) 15 ml MM BID [facility] Last Admin: 12/27/19 10:00 Dose: 15 ml Documented by: Hydrocortisone Sodium Succinate (Solu-Cortef -) 100 mg IVPUSH Q8H-IV [facility] Last Admin: 12/27/19 09:59 Dose: 100 mg Documented by: Propofol (Diprivan -) 1,000,000 mcg in 100 mls @ 3.266 mls/hr IVPB TITR [facility]; Protocol Last Admin: 12/27/19 05:54 Dose: 20 mcg/kg/min, 13.063 mls/hr Documented by: Norepinephrine Bitartrate (Levophed Bag) 16,000 mcg in 500 mls @ 9.375 mls/hr IVPB TITR [facility]; Protocol Last Titration: 12/27/19 06:02 Dose: 0 mcg/min, 0 mls/hr Documented by: Midazolam HCl (Midazolam 100mg/100ml-0.9%Nacl) 100 mg in 100 mls @ 1 mls/hr IVPB TITR [facility]; Protocol Last Admin: 12/27/19 05:54 Dose: 5 mg/hr, 5 mls/hr Documented by: Vancomycin HCl (Vancomycin (Pre-Docked)) 1,000 mg in 250 mls @ 166.667 mls/hr IVPB Q12H [facility]; Protocol Last Admin: 12/26/19 14:27 Dose: Not Given Documented by: Meropenem 1 gm/ Dextrose 100 mls @ 200 mls/hr IVPB Q8H-IV [facility] Last Admin: 12/27/19 10:02 Dose: 200 mls/hr Documented by: Vasopressin 40 units/ Sodium (Chloride) 100 mls @ 5 mls/hr IVPB ASDIR [facility]; Protocol Last Titration: 12/27/19 05:42 Dose: 6 units/hr, 15 mls/hr Documented by: Metoprolol Tartrate (Lopressor -) 25 mg PO BID [facility] Last Admin: 12/26/19 09:21 Dose: 25 mg Documented by: Multivitamins/Minerals/Vitamin C (Tab-A-Vit -) 1 tab PO DAILY [facility] Last Admin: 12/27/19 09:59 Dose: 1 tab Documented by: Pantoprazole Sodium (Protonix Iv) 40 mg IVPUSH DAILY [facility] Last Admin: 12/27/19 09:59 Dose: 40 mg Documented by: ASSESSMENT AND PLAN: Acute on Chronic Hypoxic and Hypercapneic Respiratory Failure Pneumonia Septic Shock Acute on Chronic Diastolic Heart Failure Pulmonary HTN Paroxysmal Atrial Fibrillation CAD Acute Kidney Injury Likely COPD JUANA/OHS HTN Hypercholesterolemia - continue antibiotics - reculture, change central line - titrate pressors to maintain MAP >65 - continue stress dose steroids - rate control - continue anticoagulation - titrate FiO2, PEEP to keep SpO2 >90% - monitor urine output, creatinine - enteral feeds - DVT/GI prophylaxis - continue ICU monitoring critical care time spent in reviewing chart, evaluating patient and formulating plan 35 min
--- NOTE | 2019-12-27 11:11 | PN ---
Physical Exam: SUBJECTIVE: Patient seen and examined at bedside. Overnight there were no acute events. This am he remains intubated, sedated, and unable to participate in medical interview. OBJECTIVE: Vital Signs Period Temp Pulse Resp BP Sys/Clements Pulse Ox Last 24 Hr 97.9 F-101.3 F 87-107 18-21 85-128/47-72 91-97 GENERAL: sedated, vented EYES: Pupils equal, round and reactive to light, extraocular movements intact, sclera anicteric, conjunctiva clear. No lid lag. EARS, NOSE, THROAT: dry, mucous membranes. LUNGS: Breath sounds equal, clear to auscultation bilaterally. No wheezes, and no crackles. on Vent HEART: Regular rate and rhythm, normal S1 and S2 without murmur, rub or gallop. ABDOMEN: Soft, nontender, not distended, normoactive bowel sounds, no guarding, no rebound, no masses. UPPER EXTREMITIES: 2+ pulses, warm, well-perfused. No cyanosis. No peripheral edema. LOWER EXTREMITIES: 2+ pulses, warm, well-perfused. No calf tenderness. No peripheral edema. SKIN: Warm, dry, normal turgor, no rashes or lesions noted. Laboratory Results - last 24 hr 12/26/19 12/26/19 12/27/19 05:00 13:28 06:00 WBC RBC Hgb Hct MCV MCH MCHC RDW Plt Count 132 L MPV 9.6 Hypochromia 0 Platelet Estimate Decreased Platelet Comment Present Polychromasia 1+ Poikilocytosis 2+ Anisocytosis 1+ Microcytosis 1+ Macrocytosis 0 Sodium Potassium Chloride Carbon Dioxide Anion Gap BUN Creatinine Est GFR (CKD-EPI)AfAm Est GFR (CKD-EPI)NonAf Random Glucose Calcium Phosphorus Magnesium Total Bilirubin AST ALT Alkaline Phosphatase Total Protein Albumin Random Vancomycin 14.4 Vancomycin Pre-Dose 22.4 H 12/27/19 12/27/19 06:23 06:23 WBC 7.4 RBC 6.41 H Hgb 14.8 Hct 51.7 H MCV 80.7 MCH 23.1 L MCHC 28.6 L RDW 23.5 H Plt Count 132 L MPV 9.7 Hypochromia Platelet Estimate Platelet Comment Present Polychromasia Poikilocytosis Anisocytosis Microcytosis Macrocytosis Sodium 134 L Potassium 4.5 Chloride 90 L Carbon Dioxide 35 H Anion Gap 9 BUN 96.5 H Creatinine 1.4 H Est GFR (CKD-EPI)AfAm 60.25 Est GFR (CKD-EPI)NonAf 51.99 Random Glucose 318 H Calcium 8.7 Phosphorus 4.3 Magnesium 2.9 H Total Bilirubin 1.6 H AST 19 ALT 21 Alkaline Phosphatase 132 H Total Protein 5.8 L Albumin 1.8 L Random Vancomycin Vancomycin Pre-Dose Active Medications Generic Name Dose Route Start Last Admin Trade Name Freq PRN Reason Stop Dose Admin Albuterol/Ipratropium 1 amp 12/26/19 11:46 Duoneb - NEB Q4H PRN SHORTNESS OF BREATH Amino Acids 30 ml 12/21/19 17:30 12/27/19 08:00 Prosource No Carb Liquid Pkt PO 30 ml BID@0800,1730 [facility] Administration Apixaban 5 mg 12/16/19 22:00 12/27/19 09:59 Eliquis - PO 5 mg BID [facility] Administration Ascorbic Acid 1,000 mg 12/17/19 10:00 12/27/19 09:59 Vitamin C - PO 1,000 mg DAILY [facility] Administration Chlorhexidine Gluconate 15 ml 12/22/19 12:30 12/27/19 10:00 Peridex - MM 15 ml BID [facility] Administration Furosemide 40 mg 12/27/19 14:00 Lasix Injection - IVPUSH BIDLASIX [facility] Hydrocortisone Sodium Succinate 100 mg 12/26/19 12:00 12/27/19 09:59 Solu-Cortef - IVPUSH 100 mg Q8H-IV [facility] Administration Propofol 1,000,000 mcg in 100 mls @ 3.266 mls/hr 12/17/19 04:30 12/27/19 05:54 Diprivan - IVPB 20 mcg/kg/min TITR [facility] 13.063 mls/hr Administration Protocol 5 MCG/KG/MIN Norepinephrine Bitartrate 16,000 mcg in 500 mls @ 9.375 mls/hr 12/21/19 06:45 12/27/19 06:02 Levophed Bag IVPB 0 mcg/min TITR [facility] 0 mls/hr Titration Protocol 5 MCG/MIN Midazolam HCl 100 mg in 100 mls @ 1 mls/hr 12/22/19 08:00 12/27/19 05:54 Midazolam 100mg/100ml-0.9%Nacl IVPB 5 mg/hr TITR [facility] 5 mls/hr Administration Protocol 1 MG/HR Vancomycin HCl 1,000 mg in 250 mls @ 166.667 mls/hr 12/24/19 14:15 12/26/19 14:27 Vancomycin (Pre-Docked) IVPB Not Given Q12H [facility] Protocol Meropenem 1 gm/ Dextrose 100 mls @ 200 mls/hr 12/25/19 02:45 12/27/19 10:02 IVPB 200 mls/hr Q8H-IV [facility] Administration Vasopressin 40 units/ Sodium 100 mls @ 5 mls/hr 12/26/19 12:00 12/27/19 05:42 Chloride IVPB 6 units/hr ASDIR [facility] 15 mls/hr Titration Protocol 2 UNITS/HR Metoprolol Tartrate 25 mg 12/19/19 12:00 12/26/19 09:21 Lopressor - PO 25 mg BID [facility] Administration Multivitamins/Minerals/Vitamin C 1 tab 12/17/19 10:00 12/27/19 09:59 Tab-A-Vit - PO 1 tab DAILY [facility] Administration Pantoprazole Sodium 40 mg 12/19/19 10:00 12/27/19 09:59 Protonix Iv IVPUSH 40 mg DAILY [facility] Administration ASSESSMENT/PLAN: 64 y/o male PMH HTN, HLD, JUANA (not using CPAP), COPD, GERD, systolic congestive heart failure, paroxysmal atrial fibrillation (on Eliquis, s/p cardioversion 11/2016) who presented with 3 weeks of gradual onset anasarca, scrotal swelling and mild shortness of breath worse on exertion, found to have right lobe PNA, fluid overload, bilateral lower extremity cellulitis and bilateral hydrocele, and respiratory acidosis is admitted for acute hypercapneic respiratory failure and acute CHF exacerbation. #Neuro Pt sedated and vented Propofol 20, versed 5 #CV vaso 6 cont metoprolol Lasix 40 BID #Pulm Acute hypercapneic resp failure ///16 #ID Bilateral Lower Extremity Cellulitis Meropenem D3 #Renal Cr 1.4 UO 1,680 #GI Anasarca- improved Cont diuresis #Heme Thrombocytopenia likely from sepsis Will monitor for now #DVT ppx Eliquis Protonix #TLD LUE A-line 12/20 RIJ 12/18 NG #FEN Hold IVF Monitor electrolytes Jevity + no h20 #Disposition ICU Full code Visit type - Emergency Visit Emergency Visit: No - New Patient This patient is new to me today: No - Critical Care Critical Care patient: Yes Total Critical Care Time (in minutes): 35 Critical Care Statement: The care of this patient involved high complexity decision making to prevent further life threatening deterioration of the patient's condition and/or to evaluate & treat vital organ system(s) failure or risk of failure. ATTENDING PHYSICIAN STATEMENT I saw and evaluated the patient. I reviewed the resident's note and discussed the case with the resident. I agree with the resident's findings and plan as documented. SUBJECTIVE: OBJECTIVE: ASSESSMENT AND PLAN:
[2019-12-27] MEDS: FUROSEMIDE 40 MG/4 ML INJECTABLE VIAL IVPUSH SCH (12:59)
--- NOTE | 2019-12-27 13:15 | PN ---
Progress Note, Physician Chief Complaint: Events noted Intubated and sedated History of Present Illness: Patient was seen and examined in ICU. On mechanical ventilator. Chart was reviewed On Vasopressin Currently sinus rhythm - Current Medication List Current Medications: Active Medications Albuterol/Ipratropium (Duoneb -) 1 amp NEB Q4H PRN PRN Reason: SHORTNESS OF BREATH Amino Acids (Prosource No Carb Liquid Pkt) 30 ml PO BID@0800,1730 [facility] Last Admin: 12/27/19 08:00 Dose: 30 ml Documented by: Apixaban (Eliquis -) 5 mg PO BID [facility] Last Admin: 12/27/19 09:59 Dose: 5 mg Documented by: Ascorbic Acid (Vitamin C -) 1,000 mg PO DAILY [facility] Last Admin: 12/27/19 09:59 Dose: 1,000 mg Documented by: Chlorhexidine Gluconate (Peridex -) 15 ml MM BID [facility] Last Admin: 12/27/19 10:00 Dose: 15 ml Documented by: Furosemide (Lasix Injection -) 40 mg IVPUSH BIDLASIX [facility] Last Admin: 12/27/19 12:59 Dose: 40 mg Documented by: Hydrocortisone Sodium Succinate (Solu-Cortef -) 100 mg IVPUSH Q8H-IV [facility] Last Admin: 12/27/19 09:59 Dose: 100 mg Documented by: Propofol (Diprivan -) 1,000,000 mcg in 100 mls @ 3.266 mls/hr IVPB TITR [facility]; Protocol Last Admin: 12/27/19 05:54 Dose: 20 mcg/kg/min, 13.063 mls/hr Documented by: Norepinephrine Bitartrate (Levophed Bag) 16,000 mcg in 500 mls @ 9.375 mls/hr IVPB TITR [facility]; Protocol Last Titration: 12/27/19 06:02 Dose: 0 mcg/min, 0 mls/hr Documented by: Midazolam HCl (Midazolam 100mg/100ml-0.9%Nacl) 100 mg in 100 mls @ 1 mls/hr IVPB TITR [facility]; Protocol Last Admin: 12/27/19 05:54 Dose: 5 mg/hr, 5 mls/hr Documented by: Vancomycin HCl (Vancomycin (Pre-Docked)) 1,000 mg in 250 mls @ 166.667 mls/hr IVPB Q12H [facility]; Protocol Last Admin: 12/26/19 14:27 Dose: Not Given Documented by: Meropenem 1 gm/ Dextrose 100 mls @ 200 mls/hr IVPB Q8H-IV [facility] Last Admin: 12/27/19 10:02 Dose: 200 mls/hr Documented by: Vasopressin 40 units/ Sodium (Chloride) 100 mls @ 5 mls/hr IVPB ASDIR [facility]; Protocol Last Titration: 12/27/19 05:42 Dose: 6 units/hr, 15 mls/hr Documented by: Metoprolol Tartrate (Lopressor -) 25 mg PO BID [facility] Last Admin: 12/26/19 09:21 Dose: 25 mg Documented by: Multivitamins/Minerals/Vitamin C (Tab-A-Vit -) 1 tab PO DAILY [facility] Last Admin: 12/27/19 09:59 Dose: 1 tab Documented by: Pantoprazole Sodium (Protonix Iv) 40 mg IVPUSH DAILY [facility] Last Admin: 12/27/19 09:59 Dose: 40 mg Documented by: - Objective Vital Signs: Vital Signs Temperature 97.8 F 12/27/19 10:00 Pulse Rate 92 H 12/27/19 12:00 Respiratory Rate 14 12/27/19 12:00 Blood Pressure 92/50 L 12/27/19 12:00 O2 Sat by Pulse Oximetry (%) 90 L 12/27/19 11:31 Cardiovascular: Yes: Regular Rate and Rhythm, S1, S2 Respiratory: Yes: Mechanically Ventilated Gastrointestinal: Yes: Normal Bowel Sounds, Soft. No: Tenderness Edema: Yes Labs: CBC, BMP 12/27/19 06:23 12/27/19 06:23 Problem List - Problems (1) Congestive heart failure (CHF) Code(s): I50.9 - HEART FAILURE, UNSPECIFIED Qualifiers: Heart failure type: diastolic Heart failure chronicity: acute on chronic Qualified Code(s): I50.33 - Acute on chronic diastolic (congestive) heart failure (2) Pleural effusion Code(s): J90 - PLEURAL EFFUSION, NOT ELSEWHERE CLASSIFIED (3) Pneumonia Code(s): J18.9 - PNEUMONIA, UNSPECIFIED ORGANISM Qualifiers: Pneumonia type: due to unspecified organism Laterality: right Lung location: lower lobe of lung Qualified Code(s): J18.9 - Pneumonia, unspecified organism (4) Acute hypercapnic respiratory failure Code(s): J96.02 - ACUTE RESPIRATORY FAILURE WITH HYPERCAPNIA (5) Acute on chronic diastolic (congestive) heart failure Code(s): I50.33 - ACUTE ON CHRONIC DIASTOLIC (CONGESTIVE) HEART FAILURE (6) Acute respiratory failure with hypoxia and hypercarbia Code(s): J96.01 - ACUTE RESPIRATORY FAILURE WITH HYPOXIA; J96.02 - ACUTE RESPIRATORY FAILURE WITH HYPERCAPNIA (7) Atrial fibrillation Code(s): I48.91 - UNSPECIFIED ATRIAL FIBRILLATION Qualifiers: Atrial fibrillation type: paroxysmal Qualified Code(s): I48.0 - Paroxysmal atrial fibrillation (8) COPD (chronic obstructive pulmonary disease) Code(s): J44.9 - CHRONIC OBSTRUCTIVE PULMONARY DISEASE, UNSPECIFIED Qualifiers: COPD type: unspecified COPD Qualified Code(s): J44.9 - Chronic obstructive pulmonary disease, unspecified (9) Hypertension Code(s): I10 - ESSENTIAL (PRIMARY) HYPERTENSION Qualifiers: Hypertension type: essential hypertension Qualified Code(s): I10 - Essential (primary) hypertension (10) Respiratory failure requiring intubation Code(s): J96.90 - RESPIRATORY FAILURE, UNSP, UNSP W HYPOXIA OR HYPERCAPNIA (11) Sleep apnea Code(s): G47.30 - SLEEP APNEA, UNSPECIFIED Qualifiers: Sleep apnea type: obstructive Qualified Code(s): G47.33 - Obstructive sleep apnea (adult) (pediatric) (12) Systolic and diastolic CHF, chronic Code(s): I50.42 - CHRONIC COMBINED SYSTOLIC AND DIASTOLIC HRT FAIL Assessment/Plan 1. Acute on chronic Hypoxic and Hypercapneic Respiratory Failure, currently intubated 2. Acute on chronic LV Diastolic Heart Failure with pleural effusion 3. ? Pneumonia (septic shock) 4. Paroxysmal atrial fibrillation with periods of rapid ventricular response po st DCCV, [id number] score of 2 5. Obstructive Sleep Apnea/Obesity Hypoventilation Syndrome with dental appliance 6. HTN/HCVD 7. Hypercholesterolemia 8. CAD angina pectoris 9. Bilateral cellulitis with h/o abscess s/p debridement 10. Bilateral hydrocele PLAN: 1. Vent management per critical care team 2. DVT and GI prophylaxis 3. Diuretics and monitor renal function and electrolytes (currently on Lasix 40 mg BID) Continue diuresis and Monitor I/Os 4. Continue Lopressor 25 mg BID and Eliquis 5 mg BID 5. Empiric antibiotic 6. Currently off Levophed and still on Vasopressin Continue supportive care Guarded Khalif Correa MD
[2019-12-27] MEDS: VASOPRESSIN 40 UNITS in SODIUM CHLORIDE 98 ML IVPB SCH (14:00)
--- NOTE | 2019-12-27 14:57 | PN ---
Progress Note, Physician History of Present Illness: patient continues to be intubated fevers still not doing well - Current Medication List Current Medications: Active Medications Albuterol/Ipratropium (Duoneb -) 1 amp NEB Q4H PRN PRN Reason: SHORTNESS OF BREATH Amino Acids (Prosource No Carb Liquid Pkt) 30 ml PO BID@0800,1730 [facility] Last Admin: 12/27/19 08:00 Dose: 30 ml Documented by: Apixaban (Eliquis -) 5 mg PO BID [facility] Last Admin: 12/27/19 09:59 Dose: 5 mg Documented by: Ascorbic Acid (Vitamin C -) 1,000 mg PO DAILY [facility] Last Admin: 12/27/19 09:59 Dose: 1,000 mg Documented by: Chlorhexidine Gluconate (Peridex -) 15 ml MM BID [facility] Last Admin: 12/27/19 10:00 Dose: 15 ml Documented by: Furosemide (Lasix Injection -) 40 mg IVPUSH BIDLASIX [facility] Last Admin: 12/27/19 12:59 Dose: 40 mg Documented by: Hydrocortisone Sodium Succinate (Solu-Cortef -) 100 mg IVPUSH Q8H-IV [facility] Last Admin: 12/27/19 09:59 Dose: 100 mg Documented by: Propofol (Diprivan -) 1,000,000 mcg in 100 mls @ 3.266 mls/hr IVPB TITR [facility]; Protocol Last Admin: 12/27/19 05:54 Dose: 20 mcg/kg/min, 13.063 mls/hr Documented by: Norepinephrine Bitartrate (Levophed Bag) 16,000 mcg in 500 mls @ 9.375 mls/hr IVPB TITR [facility]; Protocol Last Titration: 12/27/19 06:02 Dose: 0 mcg/min, 0 mls/hr Documented by: Midazolam HCl (Midazolam 100mg/100ml-0.9%Nacl) 100 mg in 100 mls @ 1 mls/hr IVPB TITR [facility]; Protocol Last Admin: 12/27/19 05:54 Dose: 5 mg/hr, 5 mls/hr Documented by: Vancomycin HCl (Vancomycin (Pre-Docked)) 1,000 mg in 250 mls @ 166.667 mls/hr IVPB Q12H [facility]; Protocol Last Admin: 12/26/19 14:27 Dose: Not Given Documented by: Meropenem 1 gm/ Dextrose 100 mls @ 200 mls/hr IVPB Q8H-IV [facility] Last Admin: 12/27/19 10:02 Dose: 200 mls/hr Documented by: Vasopressin 40 units/ Sodium (Chloride) 100 mls @ 5 mls/hr IVPB ASDIR [facility]; Protocol Last Titration: 12/27/19 05:42 Dose: 6 units/hr, 15 mls/hr Documented by: Metoprolol Tartrate (Lopressor -) 25 mg PO BID [facility] Last Admin: 12/26/19 09:21 Dose: 25 mg Documented by: Multivitamins/Minerals/Vitamin C (Tab-A-Vit -) 1 tab PO DAILY [facility] Last Admin: 12/27/19 09:59 Dose: 1 tab Documented by: Pantoprazole Sodium (Protonix Iv) 40 mg IVPUSH DAILY [facility] Last Admin: 12/27/19 09:59 Dose: 40 mg Documented by: - Objective Vital Signs: Vital Signs Temperature 96.8 F L 12/27/19 14:00 Pulse Rate 90 12/27/19 14:00 Respiratory Rate 14 12/27/19 14:00 Blood Pressure 107/57 L 12/27/19 14:00 O2 Sat by Pulse Oximetry (%) 90 L 12/27/19 11:31 Constitutional: Yes: Other Cardiovascular: Yes: S1, S2 Respiratory: Yes: Intubated, Mechanically Ventilated Gastrointestinal: Yes: Normal Bowel Sounds, Soft, Other (ng) Musculoskeletal: Yes: WNL Extremities: Yes: Other Edema: LLE: 1+, RLE: 1+ Labs: CBC, BMP 12/27/19 06:23 12/27/19 06:23 INR, PTT INR 1.34 (0.83-1.09) H 12/16/19 18:40 - ....Imaging Chest X-ray: Report Reviewed, Image Reviewed Assessment/Plan 64 year old male with a past medical history of HTN, HLD, JUANA (not using CPAP), COPD, GERD, systolic congestive heart failure, paroxysmal atrial fibrillation (on Eliquis, s/p cardioversion 11/2016) who presented with 3 weeks of gradual onset anasarca, scrotal swelling and mild shortness of breath worse on exertion. He as found to have a PNA, on clinical exam signs of fluid overload, ?bilateral lower extremity cellulitis and bilateral hydrocele. 1. Acute Respiratory Failure 2. Fluid Overload/ 3.Bilateral Lower Extremity Cellulitis 4. Hydrocele 5. Hypertension 6. Atrial Fibrillation 7. Elevated Troponin 8. Rule Out COVID 9 pna plan repeat blood cx pending continue abx monitor fevers icu mgmt vent mgmt res as per icu follow vanco levels cc 38 min
[2019-12-27] MEDS ORDERED: BENZOIN/ALOE VERA/STORAX/TOLU 58 ML BOTTLE ONE (16:49)
[2019-12-27] MEDS ORDERED: VASOPRESSIN 20 UNITS/ML VIAL IV ONE (18:34)
[2019-12-28] MEDS ORDERED: MEROPENEM 1 GM VIAL (RESTRICTED TO ID) IVPB ONE ×3 (02:00→17:20)
[2019-12-28] MEDS ORDERED: DEXTROSE 5%-WATER 100 ML IVPB ONE ×3 (02:00→17:20)
[2019-12-28] MEDS: MEROPENEM 1 GM in DEXTROSE 5%-WATER 100 ML IVPB SCH ×3 (02:08→17:31)
[2019-12-28] MEDS: HYDROCORTISONE SOD SUCCINATE 100 MG/2 ML VIAL IVPUSH SCH ×3 (02:08→17:27)
[2019-12-28] MEDS: PROPOFOL 1,000,000 MCG/100 ML VIAL IVPB SCH ×3 (05:56→15:47)
[2019-12-28] MEDS: FUROSEMIDE 40 MG/4 ML INJECTABLE VIAL IVPUSH SCH (05:57)
[2019-12-28 06:32] LABS: ARTERIAL BLD GAS O2 SATURATION 94.4 mmHg (95-98); ARTERIAL BLOOD GAS BASE EXCESS 8.7 mmol/L (-2-2); ARTERIAL BLOOD GAS PO2 79.5 mmHg (80-100); ARTERIAL BLOOD GAS pH 7.329 (7.350-7.450)
[2019-12-28 07:01] LABS: ALLENS TEST POSITIVE
[2019-12-28 07:02] LABS: VENT MODE A/C; VENT RATE 20
[2019-12-28 07:28] LABS: BILIRUBIN,TOTAL 1.3 mg/dL (0.2-1); CALCIUM 9.1 mg/dL (8.5-10.1); CREATININE 1.1 mg/dL (0.55-1.3); MAGNESIUM 2.7 mg/dL (1.8-2.4); PHOSPHOROUS 3.4 mg/dL (2.5-4.9); POTASSIUM 3.5 mmol/L (3.5-5.1)
--- NOTE | 2019-12-28 07:45 | PROC ---
Central Line Insertion Indication: Vasopressor Risks and Benefits Explained: Yes (phone consent with HCP) Consent on Chart: Yes Central Line: Triple Lumen Catheter Anesthesia: 1% Lidocaine Sterile Technique: Yes Ultrasound Guided Assistance: Yes Position: Left Internal Jugular Post Insertion: Yes: Bilateral Breath Sounds, Bilateral Chest Expansion, Chest X-Ray Ordered Sterile Dressing Applied: Yes
[2019-12-28 08:01] LABS: BLOOD UREA NITROGEN 104.4 mg/dL (7-18)
[2019-12-28 08:10] LABS: HEMATOCRIT 50.6 % (35.4-49); HEMOGLOBIN 14.5 GM/dL (11.7-16.9); MCHC 28.6 g/dl (32.0-35.9); MEAN CELL VOLUME 80.5 fl (80-96); MEAN PLT VOLUME 9.9 fl (7.5-11.1); PLATELET COUNT 124 K/MM3 (134-434); RBC 6.29 M/mm3 (4.00-5.60); RDW 23.4 % (11.9-15.9); WHITE BLOOD COUNT 6.8 K/mm3 (4.0-10.0)
[2019-12-28] MEDS: APIXABAN 5 MG TABLET PO SCH ×2 (10:28→21:15)
[2019-12-28] MEDS: CHLORHEXIDINE GLUCONATE 0.12% 15ML CUP MM SCH ×2 (10:29→21:15)
[2019-12-28] MEDS: PANTOPRAZOLE SODIUM 40 MG VIAL IVPUSH SCH (10:30)
[2019-12-28] MEDS: ASCORBIC ACID 500 MG TABLET (FP) PO SCH (10:34)
[2019-12-28] MEDS: MULTIVITAMINS (DAILY MVI) TABLET (FP) PO SCH (10:34)
--- NOTE | 2019-12-28 11:02 | PN ---
Teaching Attending Note Name of Resident: Justin Cardona ATTENDING PHYSICIAN STATEMENT I saw and evaluated the patient. I reviewed the resident's note and discussed the case with the resident. I agree with the resident's findings and plan as documented. SUBJECTIVE: Pt seen and examined in the ICU. Remains intubated, sedated on vasopressin gtt. Vented on volume assist control with 70% FiO2, PEEP decreased to 8. Febrile overnight. OBJECTIVE: Vital Signs Period Temp Pulse Resp BP Sys/Clements Pulse Ox Last 24 Hr 96.8 F-100.0 F 87-98 14-28 89-128/50-63 90-94 Intake & Output 12/25/19 12/26/19 12/27/19 12/28/19 23:59 23:59 23:59 23:59 Intake Total 1876 3122.1 2586 868 Output Total 1350 1680 1175 2000 Balance 526 1442.1 1411 -1132 Weight 112.491 kg 112.037 kg 113.67 kg 112.037 kg Gen: intubated, sedated Heart: tachycardic, regular Lung: scattered rhonchi Abd: soft, +ascites Ext: + edema CBC, BMP 12/28/19 06:00 12/28/19 06:00 Active Medications Albuterol/Ipratropium (Duoneb -) 1 amp NEB Q4H PRN PRN Reason: SHORTNESS OF BREATH Amino Acids (Prosource No Carb Liquid Pkt) 30 ml PO BID@0800,1730 [facility] Last Admin: 12/27/19 18:10 Dose: 30 ml Documented by: Apixaban (Eliquis -) 5 mg PO BID [facility] Last Admin: 12/28/19 10:28 Dose: 5 mg Documented by: Ascorbic Acid (Vitamin C -) 1,000 mg PO DAILY [facility] Last Admin: 12/28/19 10:34 Dose: 1,000 mg Documented by: Chlorhexidine Gluconate (Peridex -) 15 ml MM BID [facility] Last Admin: 12/28/19 10:29 Dose: 15 ml Documented by: Furosemide (Lasix Injection -) 40 mg IVPUSH DAILY [facility] Hydrocortisone Sodium Succinate (Solu-Cortef -) 50 mg IVPUSH Q8H-IV [facility] Propofol (Diprivan -) 1,000,000 mcg in 100 mls @ 3.266 mls/hr IVPB TITR [facility]; Protocol Last Admin: 12/28/19 05:56 Dose: 20 mcg/kg/min, 13.063 mls/hr Documented by: Midazolam HCl (Midazolam 100mg/100ml-0.9%Nacl) 100 mg in 100 mls @ 1 mls/hr IVPB TITR [facility]; Protocol Last Admin: 12/27/19 23:36 Dose: 5 mg/hr, 5 mls/hr Documented by: Vancomycin HCl (Vancomycin (Pre-Docked)) 1,000 mg in 250 mls @ 166.667 mls/hr IVPB Q12H [facility]; Protocol Last Admin: 12/26/19 14:27 Dose: Not Given Documented by: Meropenem 1 gm/ Dextrose 100 mls @ 200 mls/hr IVPB Q8H-IV [facility] Last Admin: 12/28/19 10:29 Dose: 200 mls/hr Documented by: Metoprolol Tartrate (Lopressor -) 25 mg PO BID [facility] Last Admin: 12/26/19 09:21 Dose: 25 mg Documented by: Multivitamins/Minerals/Vitamin C (Tab-A-Vit -) 1 tab PO DAILY [facility] Last Admin: 12/28/19 10:34 Dose: 1 tab Documented by: Pantoprazole Sodium (Protonix Iv) 40 mg IVPUSH DAILY [facility] Last Admin: 12/28/19 10:30 Dose: 40 mg Documented by: ASSESSMENT AND PLAN: Acute on Chronic Hypoxic and Hypercapneic Respiratory Failure Pneumonia ARDS Septic Shock Acute on Chronic Diastolic Heart Failure Pulmonary HTN Paroxysmal Atrial Fibrillation CAD Acute Kidney Injury Likely COPD JUANA/OHS HTN Hypercholesterolemia - continue antibiotics - f/u pending cultures - off pressors, maintain MAP >65 - taper stress dose steroids - rate control - continue anticoagulation - titrate FiO2, PEEP to keep SpO2 >90% - decrease lasix today given azotemia - monitor urine output, creatinine - enteral feeds - DVT/GI prophylaxis - continue ICU monitoring critical care time spent in reviewing chart, evaluating patient and formulating plan 35 min
[2019-12-28] MEDS: AMINO ACIDS/PROTEIN HYDROLYS 30 ML LIQUID.PKT PO SCH (11:24)
--- NOTE | 2019-12-28 12:37 | PN ---
Progress Note, Physician History of Present Illness: sedated,vented,on vaso still spiking fevers - Current Medication List Current Medications: Active Medications Albuterol/Ipratropium (Duoneb -) 1 amp NEB Q4H PRN PRN Reason: SHORTNESS OF BREATH Amino Acids (Prosource No Carb Liquid Pkt) 30 ml PO BID@0800,1730 [facility] [place] Last Admin: 12/28/19 11:24 Dose: 30 ml Documented by: Apixaban (Eliquis -) 5 mg PO BID [facility] Last Admin: 12/28/19 10:28 Dose: 5 mg Documented by: Ascorbic Acid (Vitamin C -) 1,000 mg PO DAILY [facility] Last Admin: 12/28/19 10:34 Dose: 1,000 mg Documented by: Chlorhexidine Gluconate (Peridex -) 15 ml MM BID [facility] Last Admin: 12/28/19 10:29 Dose: 15 ml Documented by: Furosemide (Lasix Injection -) 40 mg IVPUSH DAILY [facility] Hydrocortisone Sodium Succinate (Solu-Cortef -) 50 mg IVPUSH Q8H-IV [facility] Propofol (Diprivan -) 1,000,000 mcg in 100 mls @ 3.266 mls/hr IVPB TITR [facility]; Pr otocol Last Admin: 12/28/19 11:13 Dose: 20 mcg/kg/min, 13.063 mls/hr Documented by: Midazolam HCl (Midazolam 100mg/100ml-0.9%Nacl) 100 mg in 100 mls @ 1 mls/hr IVPB TITR [facility]; Protocol Last Admin: 12/27/19 23:36 Dose: 5 mg/hr, 5 mls/hr Documented by: Vancomycin HCl (Vancomycin (Pre-Docked)) 1,000 mg in 250 mls @ 166.667 mls/hr IVPB Q12H [facility]; Protocol Last Admin: 12/26/19 14:27 Dose: Not Given Documented by: Meropenem 1 gm/ Dextrose 100 mls @ 200 mls/hr IVPB Q8H-IV [facility] Last Admin: 12/28/19 10:29 Dose: 200 mls/hr Documented by: Metoprolol Tartrate (Lopressor -) 25 mg PO BID [facility] Last Admin: 12/26/19 09:21 Dose: 25 mg Documented by: Multivitamins/Minerals/Vitamin C (Tab-A-Vit -) 1 tab PO DAILY [facility] [place] Last Admin: 12/28/19 10:34 Dose: 1 tab Documented by: Pantoprazole Sodium (Protonix Iv) 40 mg IVPUSH DAILY [facility] [place] Last Admin: 12/28/19 10:30 Dose: 40 mg Documented by: - Objective Vital Signs: Vital Signs Temperature 98.2 F 12/28/19 10:00 Pulse Rate 91 H 12/28/19 10:00 Respiratory Rate 24 H 12/28/19 10:00 Blood Pressure 97/56 L 12/28/19 10:00 O2 Sat by Pulse Oximetry (%) 94 L 12/28/19 09:00 Constitutional: Yes: Other Cardiovascular: Yes: S1, S2 Respiratory: Yes: Intubated, Mechanically Ventilated Gastrointestinal: Yes: Normal Bowel Sounds, Soft, Ascites Musculoskeletal: Yes: WNL Extremities: Yes: WNL Labs: CBC, BMP 12/28/19 06:00 12/28/19 06:00 INR, PTT INR 1.34 (0.83-1.09) H 12/16/19 18:40 - ....Imaging Chest X-ray: Report Reviewed, Image Reviewed Assessment/Plan 64 year old male with a past medical history of HTN, HLD, JUANA (not using CPAP), COPD, GERD, systolic congestive heart failure, paroxysmal atrial fibrillation (on Eliquis, s/p cardioversion 11/2016) who presented with 3 weeks of gradual onset anasarca, scrotal swelling and mild shortness of breath worse on exertion. He as found to have a PNA, on clinical exam signs of fluid overload, ?bilateral lower extremity cellulitis and bilateral hydrocele. 1. Acute Respiratory Failure 2. Fluid Overload/ 3.Bilateral Lower Extremity Cellulitis 4. Hydrocele 5. Hypertension 6. Atrial Fibrillation 7. Elevated Troponin 8. Rule Out COVID 9 pna plan repeat blood cx pending continue abx monitor fevers icu mgmt vent mgmt res as per icu vanco levels noted cc 38 min
--- NOTE | 2019-12-28 12:39 | PN ---
Progress Note, Physician History of Present Illness: 64 year old male with a past medical history of HTN, HLD, JUANA (not using CPAP), COPD, GERD, systolic congestive heart failure, paroxysmal atrial fibrillation (on Eliquis, s/p cardioversion 11/2016) who presented with 3 weeks of gradual onset anasarca, scrotal swelling and mild shortness of breath worse on exertion. CXR s/f diffused bilat opacities with c/f PNA +/-fluid overload, ?bilateral l ower extremity cellulitis and bilateral hydrocele, and respiratory acidosis is admitted for Acute hypercapneic respiratory failure and Acute CHF exacerbation, intubated for progressive hypercarbic respiratory failure, decreased mental status on BiPAP. 12/26/2019 Remains intubated, sedated weaned off vasopressin gtt. Vented on volume assist control with 70% FiO2, PEEP decreased to 8. Tm 100. - Current Medication List Current Medications: Active Medications Albuterol/Ipratropium (Duoneb -) 1 amp NEB Q4H PRN PRN Reason: SHORTNESS OF BREATH Amino Acids (Prosource No Carb Liquid Pkt) 30 ml PO BID@0800,1730 [facility] Last Admin: 12/28/19 11:24 Dose: 30 ml Documented by: Apixaban (Eliquis -) 5 mg PO BID [facility] Last Admin: 12/28/19 10:28 Dose: 5 mg Documented by: Ascorbic Acid (Vitamin C -) 1,000 mg PO DAILY [facility] Last Admin: 12/28/19 10:34 Dose: 1,000 mg Documented by: Chlorhexidine Gluconate (Peridex -) 15 ml MM BID [facility] Last Admin: 12/28/19 10:29 Dose: 15 ml Documented by: Furosemide (Lasix Injection -) 40 mg IVPUSH DAILY [facility] Hydrocortisone Sodium Succinate (Solu-Cortef -) 50 mg IVPUSH Q8H-IV [facility] Propofol (Diprivan -) 1,000,000 mcg in 100 mls @ 3.266 mls/hr IVPB TITR [facility]; Protocol Last Admin: 12/28/19 11:13 Dose: 20 mcg/kg/min, 13.063 mls/hr Documented by: Midazolam HCl (Midazolam 100mg/100ml-0.9%Nacl) 100 mg in 100 mls @ 1 mls/hr IVPB TITR [facility]; Protocol Last Admin: 12/27/19 23:36 Dose: 5 mg/hr, 5 mls/hr Documented by: Vancomycin HCl (Vancomycin (Pre-Docked)) 1,000 mg in 250 mls @ 166.667 mls/hr IVPB Q12H [facility]; Protocol Last Admin: 12/26/19 14:27 Dose: Not Given Documented by: Meropenem 1 gm/ Dextrose 100 mls @ 200 mls/hr IVPB Q8H-IV [facility] Last Admin: 12/28/19 10:29 Dose: 200 mls/hr Documented by: Metoprolol Tartrate (Lopressor -) 25 mg PO BID [facility] Last Admin: 12/26/19 09:21 Dose: 25 mg Documented by: Multivitamins/Minerals/Vitamin C (Tab-A-Vit -) 1 tab PO DAILY [facility] Last Admin: 12/28/19 10:34 Dose: 1 tab Documented by: Pantoprazole Sodium (Protonix Iv) 40 mg IVPUSH DAILY [facility] Last Admin: 12/28/19 10:30 Dose: 40 mg Documented by: - Objective Vital Signs: Vital Signs Temperature 98.2 F 12/28/19 10:00 Pulse Rate 91 H 12/28/19 10:00 Respiratory Rate 24 H 12/28/19 10:00 Blood Pressure 97/56 L 12/28/19 10:00 O2 Sat by Pulse Oximetry (%) 94 L 12/28/19 09:00 Cardiovascular: Yes: Regular Rate and Rhythm Respiratory: Yes: Intubated, Mechanically Ventilated Gastrointestinal: Yes: Normal Bowel Sounds, Soft Genitourinary: Yes: Hilario Present Edema: Yes Edema: LLE: Trace, RLE: Trace Labs: CBC, BMP 12/28/19 06:00 12/28/19 06:00 INR, PTT INR 1.34 (0.83-1.09) H 12/16/19 18:40 - ....Imaging EKG: Report Reviewed (Tele: SR) Problem List - Problems (1) Congestive heart failure (CHF) Code(s): I50.9 - HEART FAILURE, UNSPECIFIED Qualifiers: Heart failure type: diastolic Heart failure chronicity: acute on chronic Qualified Code(s): I50.33 - Acute on chronic diastolic (congestive) heart failure (2) Pneumonia Code(s): J18.9 - PNEUMONIA, UNSPECIFIED ORGANISM Qualifiers: Pneumonia type: due to unspecified organism Laterality: right Lung location: lower lobe of lung Qualified Code(s): J18.9 - Pneumonia, unspecified organism (3) Acute on chronic diastolic (congestive) heart failure Code(s): I50.33 - ACUTE ON CHRONIC DIASTOLIC (CONGESTIVE) HEART FAILURE (4) Acute respiratory failure with hypoxia and hypercarbia Code(s): J96.01 - ACUTE RESPIRATORY FAILURE WITH HYPOXIA; J96.02 - ACUTE RESPIRATORY FAILURE WITH HYPERCAPNIA (5) Atrial fibrillation Code(s): I48.91 - UNSPECIFIED ATRIAL FIBRILLATION Qualifiers: Atrial fibrillation type: paroxysmal Qualified Code(s): I48.0 - Paroxysmal atrial fibrillation (6) COPD (chronic obstructive pulmonary disease) Code(s): J44.9 - CHRONIC OBSTRUCTIVE PULMONARY DISEASE, UNSPECIFIED Qualifiers: COPD type: unspecified COPD Qualified Code(s): J44.9 - Chronic obstructive pulmonary disease, unspecified (7) Hypertension Code(s): I10 - ESSENTIAL (PRIMARY) HYPERTENSION Qualifiers: Hypertension type: essential hypertension Qualified Code(s): I10 - Essential (primary) hypertension (8) Lymphedema of both lower extremities Code(s): I89.0 - LYMPHEDEMA, NOT ELSEWHERE CLASSIFIED (9) Pleural effusion Code(s): J90 - PLEURAL EFFUSION, NOT ELSEWHERE CLASSIFIED Assessment/Plan 10/26/2017 Normal LV size with mild LVH, normal LV fxn, normal RV size and fxn, mild LAE, mild MR, mild-mod TR, mild ND, RVSP 43 mmHg 11/19/2016 Lexiscan Myoview: Apical ischemia, LVEF 45-52% 10/06/2016 Echocardiography revealed mild to moderate LV systolic dysfunction, moderate TR, RVSP of 30-40 mmH 1. Acute on chronic Hypoxic and Hypercapneic Respiratory Failure, currently intubated 2. Acute on chronic LV Diastolic Heart Failure with pleural effusion 3. ? Pneumonia (septic shock) 4. Paroxysmal atrial fibrillation with periods of rapid ventricular response post DCCV, [id number] score of 2 5. Obstructive Sleep Apnea/Obesity Hypoventilation Syndrome with dental appliance 6. HTN/HCVD 7. Hypercholesterolemia 8. CAD angina pectoris 9. Bilateral cellulitis with h/o abscess s/p debridement 10. Bilateral hydrocele 11. Azotemia PLAN: 1. Vent management per critical care team 2. DVT and GI prophylaxis 3. Diuretics decreased and monitor renal function and electrolytes (currently on Lasix 40 mg QD) 4. Continue Lopressor 25 mg BID and Eliquis 5 mg BID 5. Empiric antibiotic, stress dose steroid wean with GI protection 6. Weaned off Levophed and Vasopressin gtt
--- NOTE | 2019-12-28 13:01 | PN ---
Physical Exam: SUBJECTIVE: Patient seen and examined. High temp overnight 100. On vanc by levels and meropenem. Afib on eliquis. BM overnight. ET tube adjusted. Vent pressures improving. OBJECTIVE: Vital Signs Period Temp Pulse Resp BP Sys/Clements Pulse Ox Last 24 Hr 96.8 F-100.0 F 87-98 14-28 89-128/52-63 91-94 GENERAL: sedated, vented EYES: Pupils equal, round and reactive to light, extraocular movements intact, sclera anicteric, conjunctiva clear. No lid lag. EARS, NOSE, THROAT: dry, mucous membranes. LUNGS: Breath sounds equal, clear to auscultation bilaterally. No wheezes, and no crackles. on Vent HEART: Regular rate and rhythm, normal S1 and S2 without murmur, rub or gallop. ABDOMEN: Soft, nontender, not distended, normoactive bowel sounds, no guarding, no rebound, no masses. UPPER EXTREMITIES: 2+ pulses, warm, well-perfused. No cyanosis. No peripheral edema. LOWER EXTREMITIES: 2+ pulses, warm, well-perfused. No calf tenderness. No peripheral edema. SKIN: Warm, dry, normal turgor, no rashes or lesions noted. Laboratory Results - last 24 hr 12/28/19 12/28/19 12/28/19 06:00 06:00 06:00 WBC 6.8 RBC 6.29 H Hgb 14.5 Hct 50.6 H MCV 80.5 MCH 23.0 L MCHC 28.6 L RDW 23.4 H MPV 9.9 Anticoagulation Therapy No Result Required. Puncture Site Left radial Patient Temperature No Result Required. ABG pH 7.329 L ABG pCO2 74.10 H* ABG pO2 79.5 L ABG HCO3 38.1 H ABG O2 Sat (Measured) 94.4 L ABG O2 Content No Result Required. ABG Base Excess 8.7 H Ye Test Positive Patient On Oxygen Yes O2 Delivery Device Vent Oxygen Flow Rate 85% Vent Mode A/c Vent Rate 20 Mechanical Rate Yes PEEP 10.0 Pressure Support Vent 450 Sodium 139 Potassium 3.5 Chloride 94 L Carbon Dioxide 40 H Anion Gap 5 L BUN 104.4 H* Creatinine 1.1 Est GFR (CKD-EPI)AfAm 80.65 Est GFR (CKD-EPI)NonAf 69.58 Random Glucose 288 H Calcium 9.1 Phosphorus 3.4 Magnesium 2.7 H Total Bilirubin 1.3 H AST 49 H ALT 39 Alkaline Phosphatase 118 H Total Protein 6.0 L Albumin 2.0 L Active Medications Generic Name Dose Route Start Last Admin Trade Name Freq PRN Reason Stop Dose Admin Albuterol/Ipratropium 1 amp 12/26/19 11:46 Duoneb - NEB Q4H PRN SHORTNESS OF BREATH Amino Acids 30 ml 12/21/19 17:30 12/28/19 11:24 Prosource No Carb Liquid Pkt PO 30 ml BID@0800,1730 [facility] Administration Apixaban 5 mg 12/16/19 22:00 12/28/19 10:28 Eliquis - PO 5 mg BID [facility] Administration Ascorbic Acid 1,000 mg 12/17/19 10:00 12/28/19 10:34 Vitamin C - PO 1,000 mg DAILY [facility] Administration Chlorhexidine Gluconate 15 ml 12/22/19 12:30 12/28/19 10:29 Peridex - MM 15 ml BID [facility] Administration Furosemide 40 mg 12/29/19 10:00 Lasix Injection - IVPUSH DAILY [facility] Hydrocortisone Sodium Succinate 50 mg 12/28/19 10:45 Solu-Cortef - IVPUSH Q8H-IV [facility] Propofol 1,000,000 mcg in 100 mls @ 3.266 mls/hr 12/17/19 04:30 12/28/19 11:13 Diprivan - IVPB 20 mcg/kg/min TITR [facility] 13.063 mls/hr Administration Protocol 5 MCG/KG/MIN Midazolam HCl 100 mg in 100 mls @ 1 mls/hr 12/22/19 08:00 12/27/19 23:36 Midazolam 100mg/100ml-0.9%Nacl IVPB 5 mg/hr TITR [facility] 5 mls/hr Administration Protocol 1 MG/HR Vancomycin HCl 1,000 mg in 250 mls @ 166.667 mls/hr 12/24/19 14:15 12/26/19 14:27 Vancomycin (Pre-Docked) IVPB Not Given Q12H [facility] Protocol Meropenem 1 gm/ Dextrose 100 mls @ 200 mls/hr 12/25/19 02:45 12/28/19 10:29 IVPB 200 mls/hr Q8H-IV [facility] Administration Metoprolol Tartrate 25 mg 12/19/19 12:00 12/26/19 09:21 Lopressor - PO 25 mg BID [facility] Administration Multivitamins/Minerals/Vitamin C 1 tab 12/17/19 10:00 12/28/19 10:34 Tab-A-Vit - PO 1 tab DAILY [facility] Administration Pantoprazole Sodium 40 mg 12/19/19 10:00 12/28/19 10:30 Protonix Iv IVPUSH 40 mg DAILY [facility] Administration ASSESSMENT/PLAN: 64 year old male with a past medical history of HTN, HLD, JUANA (not using CPAP), COPD, GERD, systolic congestive heart failure, paroxysmal atrial fibrillation (on Eliquis, s/p cardioversion 11/2016) who presented with 3 weeks of gradual onset anasarca, scrotal swelling and mild shortness of breath worse on exertion, found to have right lobe PNA, fluid overload, bilateral lower extremity cellulitis and bilateral hydrocele, and respiratory acidosis is admitted for Acute hypercapneic respiratory failure and Acute CHF exacerbation #Neuro Pt sedated and vented Propofol 20, versed 5 #CV Fluid Overload 2/2 sCHF exacerbation, CXR- with small right and left pleural effusion monitor renal studies, electrolytes, strict I&O's and daily weights Clinical signs of severe volume overload- anasarca, b/l LE edema- Improved Cardiology following on lisinopril- hold until peter improves cont metoprolol 25 BID Give 40 lasix daily Pt on eliquis Off pressors #Pulm Acute hypercapneic resp failure 2/2 to Community acquired pneumonia vs COPD exacerbation CXR- right mid and lower lung and left lung base pneumonia ABG showed 7.32/74/79/38 AC 24/450/70/10 Plat 21, PIP 30--- wean FiO2 down SvO2 measurement >70, consistent w/ distributive shock Hydrocortisone 50 Q8H #ID Bilateral Lower Extremity Cellulitis abx switched to Meropenem D4, Vanc D4- holding, vanc levels ID consulted #Renal stable s/p acetazolamide Lasix 40 daily, check response I-1800, O-2500 Azotemia likely 2/2 to steriod vs protein intake vs GI bleed- monitor bleeds #GI Anasarca- improved cont diuresis #Heme monitor Thrombocytopenia likely from sepsis will monitor for now #DVT ppx On eliquis #GI ppx protonix Lines LUE A-line 12/20 LIJ 12/26 ET 7.5 FEN monitor lytes Fluid restrictions cont feeds Aspiration risk Dispo: cont abx, monitor I&Os, cont lasix, monitor I&Os, f/u vanc levels, maintain off pressors, wean FiO2 Mothers # [phone] -cell, -Home As per brother Ady, would like to be updated as opposed to his mother Attempted to notify and contact pt's mother/ as per chart, unable to reach. Will continue trying Visit type - Emergency Visit Emergency Visit: Yes ED Registration Date: 12/16/19 Care time: The patient presented to the Emergency Department on the above date and was hospitalized for further evaluation of their emergent condition. - New Patient This patient is new to me today: Yes Date on this admission: 01/03/20 - Critical Care Critical Care patient: No - Discharge Referral Referred to [facility] No ATTENDING PHYSICIAN STATEMENT I saw and evaluated the patient. I reviewed the resident's note and discussed the case with the resident. I agree with the resident's findings and plan as documented. SUBJECTIVE: OBJECTIVE: ASSESSMENT AND PLAN:
--- NOTE | 2019-12-28 13:18 | PN ---
Progress Note, Physician History of Present Illness: Pt seen and examined at bedside. He remains in the ICU. He remains intubated. - Current Medication List Current Medications: Active Medications Albuterol/Ipratropium (Duoneb -) 1 amp NEB Q4H PRN PRN Reason: SHORTNESS OF BREATH Amino Acids (Prosource No Carb Liquid Pkt) 30 ml PO BID@0800,1730 [facility] Last Admin: 12/28/19 11:24 Dose: 30 ml Documented by: Apixaban (Eliquis -) 5 mg PO BID [facility] Last Admin: 12/28/19 10:28 Dose: 5 mg Documented by: Ascorbic Acid (Vitamin C -) 1,000 mg PO DAILY [facility] Last Admin: 12/28/19 10:34 Dose: 1,000 mg Documented by: Chlorhexidine Gluconate (Peridex -) 15 ml MM BID [facility] Last Admin: 12/28/19 10:29 Dose: 15 ml Documented by: Furosemide (Lasix Injection -) 40 mg IVPUSH DAILY [facility] Hydrocortisone Sodium Succinate (Solu-Cortef -) 50 mg IVPUSH Q8H-IV [facility] Propofol (Diprivan -) 1,000,000 mcg in 100 mls @ 3.266 mls/hr IVPB TITR [facility]; Protocol Last Admin: 12/28/19 11:13 Dose: 20 mcg/kg/min, 13.063 mls/hr Documented by: Midazolam HCl (Midazolam 100mg/100ml-0.9%Nacl) 100 mg in 100 mls @ 1 mls/hr IVPB TITR [facility]; Protocol Last Admin: 12/27/19 23:36 Dose: 5 mg/hr, 5 mls/hr Documented by: Vancomycin HCl (Vancomycin (Pre-Docked)) 1,000 mg in 250 mls @ 166.667 mls/hr IVPB Q12H [facility]; Protocol Last Admin: 12/26/19 14:27 Dose: Not Given Documented by: Meropenem 1 gm/ Dextrose 100 mls @ 200 mls/hr IVPB Q8H-IV [facility] Last Admin: 12/28/19 10:29 Dose: 200 mls/hr Documented by: Metoprolol Tartrate (Lopressor -) 25 mg PO BID [facility] Last Admin: 12/26/19 09:21 Dose: 25 mg Documented by: Multivitamins/Minerals/Vitamin C (Tab-A-Vit -) 1 tab PO DAILY [facility] Last Admin: 12/28/19 10:34 Dose: 1 tab Documented by: Pantoprazole Sodium (Protonix Iv) 40 mg IVPUSH DAILY [facility] Last Admin: 12/28/19 10:30 Dose: 40 mg Documented by: - Objective Vital Signs: Vital Signs Temperature 98.2 F 12/28/19 10:00 Pulse Rate 94 H 12/28/19 12:00 Respiratory Rate 26 H 12/28/19 12:00 Blood Pressure 101/53 L 12/28/19 12:00 O2 Sat by Pulse Oximetry (%) 94 L 12/28/19 09:00 Constitutional: Yes: Calm Eyes: Yes: Conjunctiva Clear HENT: Yes: Atraumatic Neck: Yes: Supple Cardiovascular: Yes: S1, S2 Respiratory: Yes: Mechanically Ventilated Gastrointestinal: Yes: Soft Genitourinary: Yes: Hilario Present Edema: LLE: Trace, RLE: Trace Neurological: Yes: Lethargy Labs: CBC, BMP 12/28/19 06:00 12/28/19 06:00 INR, PTT INR 1.34 (0.83-1.09) H 12/16/19 18:40 Problem List - Problems (1) Anasarca Code(s): R60.1 - GENERALIZED EDEMA (2) Congestive heart failure (CHF) Code(s): I50.9 - HEART FAILURE, UNSPECIFIED Qualifiers: Heart failure type: diastolic Heart failure chronicity: acute on chronic Qualified Code(s): I50.33 - Acute on chronic diastolic (congestive) heart failur e (3) Acute kidney injury Code(s): N17.9 - ACUTE KIDNEY FAILURE, UNSPECIFIED Assessment/Plan Current Medications Generic Name Dose Route Start Last Admin Trade Name Freq PRN Reason Stop Dose Admin Albuterol/Ipratropium 1 amp 12/26/19 11:46 Duoneb - NEB Q4H PRN SHORTNESS OF BREATH Amino Acids 30 ml 12/21/19 17:30 12/28/19 11:24 Prosource No Carb Liquid Pkt PO 30 ml BID@0800,1730 [facility] Administration Apixaban 5 mg 12/16/19 22:00 12/28/19 10:28 Eliquis - PO 5 mg BID [facility] Administration Ascorbic Acid 1,000 mg 12/17/19 10:00 12/28/19 10:34 Vitamin C - PO 1,000 mg DAILY [facility] Administration Chlorhexidine Gluconate 15 ml 12/22/19 12:30 12/28/19 10:29 Peridex - MM 15 ml BID [facility] Administration Furosemide 40 mg 12/29/19 10:00 Lasix Injection - IVPUSH DAILY [facility] Hydrocortisone Sodium Succinate 50 mg 12/28/19 10:45 Solu-Cortef - IVPUSH Q8H-IV [facility] Propofol 1,000,000 mcg in 100 mls @ 3.266 mls/hr 12/17/19 04:30 12/28/19 11:13 Diprivan - IVPB 20 mcg/kg/min TITR [facility] 13.063 mls/hr Administration Protocol 5 MCG/KG/MIN Midazolam HCl 100 mg in 100 mls @ 1 mls/hr 12/22/19 08:00 12/27/19 23:36 Midazolam 100mg/100ml-0.9%Nacl IVPB 5 mg/hr TITR [facility] 5 mls/hr Administration Protocol 1 MG/HR Vancomycin HCl 1,000 mg in 250 mls @ 166.667 mls/hr 12/24/19 14:15 12/26/19 14:27 Vancomycin (Pre-Docked) IVPB Not Given Q12H [facility] Protocol Meropenem 1 gm/ Dextrose 100 mls @ 200 mls/hr 12/25/19 02:45 12/28/19 10:29 IVPB 200 mls/hr Q8H-IV [facility] Administration Metoprolol Tartrate 25 mg 12/19/19 12:00 12/26/19 09:21 Lopressor - PO 25 mg BID [facility] Administration Multivitamins/Minerals/Vitamin C 1 tab 12/17/19 10:00 12/28/19 10:34 Tab-A-Vit - PO 1 tab DAILY [facility] Administration Pantoprazole Sodium 40 mg 12/19/19 10:00 12/28/19 10:30 Protonix Iv IVPUSH 40 mg DAILY [facility] Administration Impression 1. MONIE 2. CHF acute 3. acute resp failure requiring intubation 4. atrial fibrillation 5. hx of htn 6. obesity 7. chronic smoker 8. hypokalemia Plan - health tech stable - bun rising, likely secondary to steroids and protein intake - monitor hg - cont pressors to map 65 - monitor renal function - monitor urine output - lasix prn - hold areli and bp meds - monitor volume status
[2019-12-28] MEDS ORDERED: PT OWN MED DRAWER 7, Y5N ONE (16:25)
[2019-12-28] MEDS: VASOPRESSIN 40 UNITS in SODIUM CHLORIDE 98 ML IVPB SCH (16:41)
[2019-12-28] MEDS: METOPROLOL TARTRATE 25 MG TABLET (FP) PO SCH (21:15)
[2019-12-28] MEDS ORDERED: VASOPRESSIN 20 UNITS/ML VIAL IV ONE (21:37)
[2019-12-28] MEDS: NOREPINEPHRINE D5W PREMIX 16,000 MCG/500 ML BAG IVPB SCH (22:35)
[2019-12-29] MEDS: HYDROCORTISONE SOD SUCCINATE 100 MG/2 ML VIAL IVPUSH SCH ×2 (01:10→17:31)
[2019-12-29] MEDS: MEROPENEM 1 GM in DEXTROSE 5%-WATER 100 ML IVPB SCH ×3 (01:10→17:32)
[2019-12-29] MEDS ORDERED: DEXTROSE 5%-WATER 100 ML IVPB ONE ×2 (01:24→10:46)
[2019-12-29] MEDS ORDERED: MEROPENEM 1 GM VIAL (RESTRICTED TO ID) IVPB ONE ×3 (01:24→17:28)
[2019-12-29] MEDS: VANCOMYCIN 1 GRAM (PRE-DOCKED) 1,000 MG/250 ML BAG IVPB SCH ×2 (01:40→15:43)
[2019-12-29 06:19] LABS: ARTERIAL BLD GAS O2 SATURATION 94.7 mmHg (95-98); ARTERIAL BLOOD GAS BASE EXCESS 11.7 mmol/L (-2-2); ARTERIAL BLOOD GAS PO2 73.4 mmHg (80-100); ARTERIAL BLOOD GAS pH 7.424 (7.350-7.450)
[2019-12-29 06:38] LABS: VENT MODE A/C
[2019-12-29 06:39] LABS: VENT RATE 24
[2019-12-29 07:53] LABS: BLOOD UREA NITROGEN 102.7 mg/dL (7-18); CALCIUM 9.5 mg/dL (8.5-10.1); CREATININE 0.9 mg/dL (0.55-1.3); MAGNESIUM 2.8 mg/dL (1.8-2.4); PHOSPHOROUS 2.9 mg/dL (2.5-4.9); POTASSIUM 3.4 mmol/L (3.5-5.1)
--- NOTE | 2019-12-29 10:23 | PN ---
Progress Note, Physician History of Present Illness: 64 year old male with a past medical history of HTN, HLD, JUANA (not using CPAP), COPD, GERD, systolic congestive heart failure, paroxysmal atrial fibrillation (on Eliquis, s/p cardioversion 11/2016) who presented with 3 weeks of gradual onset anasarca, scrotal swelling and mild shortness of breath worse on exertion. CXR s/f diffused bilat opacities with c/f PNA +/-fluid overload, ?bilateral l ower extremity cellulitis and bilateral hydrocele, and respiratory acidosis is admitted for Acute hypercapneic respiratory failure and Acute CHF exacerbation, intubated for progressive hypercarbic respiratory failure, decreased mental status on BiPAP. 12/29/2019 Remains intubated, sedated weaned off vasopressin gtt. Vented on volume assist control with 70% FiO2, PEEP 10. Afebrile. - Current Medication List Current Medications: Active Medications Albuterol/Ipratropium (Duoneb -) 1 amp NEB Q4H PRN PRN Reason: SHORTNESS OF BREATH Apixaban (Eliquis -) 5 mg PO BID [facility] Last Admin: 12/28/19 21:15 Dose: 5 mg Documented by: Ascorbic Acid (Vitamin C -) 1,000 mg PO DAILY [facility] Last Admin: 12/28/19 10:34 Dose: 1,000 mg Documented by: Chlorhexidine Gluconate (Peridex -) 15 ml MM BID [facility] Last Admin: 12/28/19 21:15 Dose: 15 ml Documented by: Furosemide (Lasix Injection -) 40 mg IVPUSH DAILY [facility] Hydrocortisone Sodium Succinate (Solu-Cortef -) 50 mg IVPUSH Q8H-IV [facility] Last Admin: 12/29/19 01:10 Dose: 50 mg Documented by: Propofol (Diprivan -) 1,000,000 mcg in 100 mls @ 3.266 mls/hr IVPB TITR [facility]; Protocol Last Admin: 12/28/19 15:47 Dose: 20 mcg/kg/min, 13.063 mls/hr Documented by: Midazolam HCl (Midazolam 100mg/100ml-0.9%Nacl) 100 mg in 100 mls @ 1 mls/hr IVPB TITR [facility]; Protocol Last Admin: 12/27/19 23:36 Dose: 5 mg/hr, 5 mls/hr Documented by: Vancomycin HCl (Vancomycin (Pre-Docked)) 1,000 mg in 250 mls @ 166.667 mls/hr IVPB Q12H [facility]; Protocol Last Admin: 12/29/19 01:40 Dose: 166.667 mls/hr Documented by: Meropenem 1 gm/ Dextrose 100 mls @ 200 mls/hr IVPB Q8H-IV [facility] Last Admin: 12/29/19 01:10 Dose: 200 mls/hr Documented by: Vasopressin 40 units/ Sodium (Chloride) 100 mls @ 5 mls/hr IVPB [facility]; Protocol Last Admin: 12/28/19 16:41 Dose: 2 units/hr, 5 mls/hr Documented by: Potassium Chloride (Potassium Chloride 10 Meq Premix Ivpb -) 10 meq in 100 mls @ 100 mls/hr IVPB Q60M [facility] Stop: 12/29/19 10:44 Metoprolol Tartrate (Lopressor -) 25 mg PO BID [facility] Last Admin: 12/28/19 21:15 Dose: 25 mg Documented by: Multivitamins/Minerals/Vitamin C (Tab-A-Vit -) 1 tab PO DAILY [facility] Last Admin: 12/28/19 10:34 Dose: 1 tab Documented by: Pantoprazole Sodium (Protonix Iv) 40 mg IVPUSH DAILY [facility] Last Admin: 12/28/19 10:30 Dose: 40 mg Documented by: - Objective Vital Signs: Vital Signs Temperature 98.9 F 12/29/19 06:00 Pulse Rate 84 12/29/19 08:00 Respiratory Rate 24 H 12/29/19 08:00 Blood Pressure 136/69 12/29/19 06:00 O2 Sat by Pulse Oximetry (%) 94 L 12/29/19 08:58 Cardiovascular: Yes: Regular Rate and Rhythm Respiratory: Yes: Intubated, Mechanically Ventilated, Rhonchi Gastrointestinal: Yes: Normal Bowel Sounds, Soft Genitourinary: Yes: Hilario Present Edema: Yes Edema: LLE: Trace, RLE: Trace Integumentary: Yes: Venous Stasis Changes Labs: CBC, BMP 12/28/19 06:00 12/29/19 06:00 INR, PTT INR 1.34 (0.83-1.09) H 12/16/19 18:40 Problem List - Problems (1) Congestive heart failure (CHF) Code(s): I50.9 - HEART FAILURE, UNSPECIFIED Qualifiers: Heart failure type: diastolic Heart failure chronicity: acute on chronic Qualified Code(s): I50.33 - Acute on chronic diastolic (congestive) heart failure (2) Pneumonia Code(s): J18.9 - PNEUMONIA, UNSPECIFIED ORGANISM Qualifiers: Pneumonia type: due to unspecified organism Laterality: right Lung location: lower lobe of lung Qualified Code(s): J18.9 - Pneumonia, unspecified organism (3) Acute on chronic diastolic (congestive) heart failure Code(s): I50.33 - ACUTE ON CHRONIC DIASTOLIC (CONGESTIVE) HEART FAILURE (4) Acute respiratory failure with hypoxia and hypercarbia Code(s): J96.01 - ACUTE RESPIRATORY FAILURE WITH HYPOXIA; J96.02 - ACUTE RESPIRATORY FAILURE WITH HYPERCAPNIA (5) Atrial fibrillation Code(s): I48.91 - UNSPECIFIED ATRIAL FIBRILLATION Qualifiers: Atrial fibrillation type: paroxysmal Qualified Code(s): I48.0 - Paroxysmal atrial fibrillation (6) COPD (chronic obstructive pulmonary disease) Code(s): J44.9 - CHRONIC OBSTRUCTIVE PULMONARY DISEASE, UNSPECIFIED Qualifiers: COPD type: unspecified COPD Qualified Code(s): J44.9 - Chronic obstructive pulmonary disease, unspecified (7) Hypertension Code(s): I10 - ESSENTIAL (PRIMARY) HYPERTENSION Qualifiers: Hypertension type: essential hypertension Qualified Code(s): I10 - Essential (primary) hypertension (8) Lymphedema of both lower extremities Code(s): I89.0 - LYMPHEDEMA, NOT ELSEWHERE CLASSIFIED (9) Pleural effusion Code(s): J90 - PLEURAL EFFUSION, NOT ELSEWHERE CLASSIFIED Assessment/Plan 10/26/2017 Normal LV size with mild LVH, normal LV fxn, normal RV size and fxn, mild LAE, mild MR, mild-mod TR, mild ND, RVSP 43 mmHg 11/19/2016 Lexiscan Myoview: Apical ischemia, LVEF 45-52% 10/06/2016 Echocardiography revealed mild to moderate LV systolic dysfunction, moderate TR, RVSP of 30-40 mmH 1. Acute on chronic Hypoxic and Hypercapneic Respiratory Failure, currently intubated 2. Acute on chronic LV Diastolic Heart Failure with pleural effusion 3. Pneumonia (septic shock) 4. Paroxysmal atrial fibrillation with periods of rapid ventricular response post DCCV, [id number] score of 2 5. Obstructive Sleep Apnea/Obesity Hypoventilation Syndrome with dental appliance 6. HTN/HCVD 7. Hypercholesterolemia 8. CAD angina pectoris 9. Bilateral cellulitis with h/o abscess s/p debridement 10. Bilateral hydrocele 11. Azotemia PLAN: 1. Vent management titrate FiO2, PEEP to keep SpO2 >90% 2. DVT and GI prophylaxis, enteral feeds 3. Diuretics decreased and monitor renal function and electrolytes (currently on Lasix 40 mg QD) 4. Continue Lopressor 25 mg BID and Eliquis 5 mg BID 5. Empiric antibiotic f/u C&S, stress dose steroid wean with GI protection 6. Weaned off Levophed and Vasopressin gtt to maintain MAP >65
[2019-12-29] MEDS: ASCORBIC ACID 500 MG TABLET (FP) PO SCH (10:53)
[2019-12-29] MEDS: MULTIVITAMINS (DAILY MVI) TABLET (FP) PO SCH (10:54)
[2019-12-29] MEDS: CHLORHEXIDINE GLUCONATE 0.12% 15ML CUP MM SCH ×2 (10:55→21:04)
[2019-12-29] MEDS: APIXABAN 5 MG TABLET PO SCH ×2 (10:55→21:05)
[2019-12-29] MEDS: FUROSEMIDE 40 MG/4 ML INJECTABLE VIAL IVPUSH SCH (10:58)
[2019-12-29] MEDS: PANTOPRAZOLE SODIUM 40 MG VIAL IVPUSH SCH (11:02)
[2019-12-29] MEDS: KCL 10 MEQ IVPB 10 MEQ/100 ML INFUS.BAG IVPB SCH ×2 (11:07→13:13)
[2019-12-29] MEDS: PROPOFOL 1,000,000 MCG/100 ML VIAL IVPB SCH ×3 (11:08→23:00)
--- NOTE | 2019-12-29 11:11 | PN ---
Physical Exam: SUBJECTIVE: Patient seen and examined. Afebrile. On vanc by levels and meropenem. Afib on eliquis. Vent pressures improving. Appears mildly volume overloaded. OBJECTIVE: Vital Signs Period Temp Pulse Resp BP Sys/Clements Pulse Ox Last 24 Hr 98.1 F-98.9 F 74-103 18-26 87-139/50-78 93-94 GENERAL: sedated, vented EYES: Pupils equal, round and reactive to light, extraocular movements intact, sclera anicteric, conjunctiva clear. No lid lag. EARS, NOSE, THROAT: dry, mucous membranes. LUNGS: Breath sounds equal, clear to auscultation bilaterally. No wheezes, and no crackles. on Vent HEART: Regular rate and rhythm, normal S1 and S2 without murmur, rub or gallop. ABDOMEN: Soft, nontender, not distended, normoactive bowel sounds, no guarding, no rebound, no masses. UPPER EXTREMITIES: 2+ pulses, warm, well-perfused. No cyanosis. No peripheral edema. LOWER EXTREMITIES: 2+ pulses, warm, well-perfused. No calf tenderness. No peripheral edema. SKIN: Warm, dry, normal turgor, no rashes or lesions noted. Laboratory Results - last 24 hr 12/28/19 12/29/19 12/29/19 06:00 05:30 06:00 Plt Count 124 L Manual Slide Review Platelet Comment Slt plt clumping Anticoagulation Therapy No Result Required. Puncture Site Arterial line Patient Temperature No Result Required. ABG pH 7.424 ABG pCO2 60.70 H ABG pO2 73.4 L ABG HCO3 38.8 H ABG O2 Sat (Measured) 94.7 L ABG O2 Content No Result Required. ABG Base Excess 11.7 H Ye Test Not applicable Patient On Oxygen Yes O2 Delivery Device Vent Oxygen Flow Rate 85% Vent Mode A/c Vent Rate 24 Mechanical Rate Vent PEEP 10.0 Pressure Support Vent 450 Sodium Potassium Chloride Carbon Dioxide Anion Gap BUN Creatinine Est GFR (CKD-EPI)AfAm Est GFR (CKD-EPI)NonAf Random Glucose Calcium Phosphorus Magnesium Random Vancomycin 16.2 12/29/19 06:00 Plt Count Manual Slide Review Platelet Comment Anticoagulation Therapy Puncture Site Patient Temperature ABG pH ABG pCO2 ABG pO2 ABG HCO3 ABG O2 Sat (Measured) ABG O2 Content ABG Base Excess Ye Test Patient On Oxygen O2 Delivery Device Oxygen Flow Rate Vent Mode Vent Rate Mechanical Rate PEEP Pressure Support Vent Sodium 142 Potassium 3.4 L Chloride 96 L Carbon Dioxide 42 H Anion Gap 4 L BUN 102.7 H Creatinine 0.9 Est GFR (CKD-EPI)AfAm 102.79 Est GFR (CKD-EPI)NonAf 88.69 Random Glucose 205 H Calcium 9.5 Phosphorus 2.9 Magnesium 2.8 H Random Vancomycin Active Medications Generic Name Dose Route Start Last Admin Trade Name Freq PRN Reason Stop Dose Admin Albuterol/Ipratropium 1 amp 12/26/19 11:46 Duoneb - NEB Q4H PRN SHORTNESS OF BREATH Apixaban 5 mg 12/16/19 22:00 12/28/19 21:15 Eliquis - PO 5 mg BID LYNETTE Administration Ascorbic Acid 1,000 mg 12/17/19 10:00 12/28/19 10:34 Vitamin C - PO 1,000 mg DAILY LYNETTE Administration Chlorhexidine Gluconate 15 ml 12/22/19 12:30 12/28/19 21:15 Peridex - MM 15 ml BID LYNETTE Administration Furosemide 40 mg 12/29/19 10:00 Lasix Injection - IVPUSH DAILY LYNETTE Hydrocortisone Sodium Succinate 50 mg 12/28/19 10:45 12/29/19 01:10 Solu-Cortef - IVPUSH 50 mg Q8H-IV LYNETTE Administration Propofol 1,000,000 mcg in 100 mls @ 3.266 mls/hr 12/17/19 04:30 12/28/19 15:47 Diprivan - IVPB 20 mcg/kg/min TITR LYNETTE 13.063 mls/hr Administration Protocol 5 MCG/KG/MIN Midazolam HCl 100 mg in 100 mls @ 1 mls/hr 12/22/19 08:00 12/27/19 23:36 Midazolam 100mg/100ml-0.9%Nacl IVPB 5 mg/hr TITR LYNETTE 5 mls/hr Administration Protocol 1 MG/HR Vancomycin HCl 1,000 mg in 250 mls @ 166.667 mls/hr 12/24/19 14:15 12/29/19 01:40 Vancomycin (Pre-Docked) IVPB 166.667 mls/hr Q12H LYNETTE Administration Protocol Meropenem 1 gm/ Dextrose 100 mls @ 200 mls/hr 12/25/19 02:45 12/29/19 01:10 IVPB 200 mls/hr Q8H-IV LYNETTE Administration Vasopressin 40 units/ Sodium 100 mls @ 5 mls/hr 12/28/19 16:30 12/28/19 16:41 Chloride IVPB 2 units/hr ASDIR LYNETTE 5 mls/hr Administration Protocol 2 UNITS/HR Metoprolol Tartrate 25 mg 12/19/19 12:00 12/28/19 21:15 Lopressor - PO 25 mg BID LYNETTE Administration Multivitamins/Minerals/Vitamin C 1 tab 12/17/19 10:00 12/28/19 10:34 Tab-A-Vit - PO 1 tab DAILY LYNETTE Administration Pantoprazole Sodium 40 mg 12/19/19 10:00 12/28/19 10:30 Protonix Iv IVPUSH 40 mg DAILY LYNETTE Administration ASSESSMENT/PLAN: 64 year old male with a past medical history of HTN, HLD, JUANA (not using CPAP), COPD, GERD, systolic congestive heart failure, paroxysmal atrial fibrillation (on Eliquis, s/p cardioversion 11/2016) who presented with 3 weeks of gradual onset anasarca, scrotal swelling and mild shortness of breath worse on exertion, found to have right lobe PNA, fluid overload, bilateral lower extremity cellulitis and bilateral hydrocele, and respiratory acidosis is admitted for Acute hypercapneic respiratory failure and Acute CHF exacerbation #Neuro Pt sedated and vented Propofol 20, versed 5 #CV Fluid Overload 2/2 sCHF exacerbation, CXR- with small right and left pleural effusion monitor renal studies, electrolytes, strict I&O's and daily weights Clinical signs of severe volume overload- anasarca, b/l LE edema- Improved Cardiology following on lisinopril- hold until peter improves cont metoprolol 25 BID Give 40 lasix daily Pt on eliquis Off pressors #Pulm Acute hypercapneic resp failure 2/2 to Community acquired pneumonia vs COPD exacerbation CXR ABG showed 7.32/74/79/38 AC 24/450/70/10 Plat 20, PIP 27, I:E 1:2.1 --- wean FiO2 down SvO2 measurement >70, consistent w/ distributive shock Hydrocortisone 50 Q8H, can taper to daily starting tomorrow #ID Bilateral Lower Extremity Cellulitis Meropenem D5, Vanc D5 ID consulted #Renal stable s/p acetazolamide Lasix 40 daily, check response I-1800, O-2300 Azotemia likely 2/2 to steriod vs protein intake vs GI bleed- monitor bleeds #GI Anasarca- improved cont diuresis #Heme monitor Thrombocytopenia likely from sepsis will monitor for now #DVT ppx On eliquis #GI ppx protonix Lines LUE A-line 12/20 LIJ 12/26 ET 7.5 FEN monitor lytes Fluid restrictions cont feeds Aspiration risk Dispo: cont abx, monitor I&Os, cont lasix, monitor I&Os, f/u vanc levels, maintain off pressors, wean FiO2 Mothers # [phone] -cell, -Home As per brother Ady, would like to be updated as opposed to his mother Visit type - Emergency Visit Emergency Visit: Yes ED Registration Date: 12/16/19 Care time: The patient presented to the Emergency Department on the above date a nd was hospitalized for further evaluation of their emergent condition. - New Patient This patient is new to me today: Yes Date on this admission: 01/03/20 - Critical Care Critical Care patient: No - Discharge Referral Referred to [facility] Med P.C[facility] No ATTENDING PHYSICIAN STATEMENT I saw and evaluated the patient. I reviewed the resident's note and discussed the case with the resident. I agree with the resident's findings and plan as documented. SUBJECTIVE: OBJECTIVE: ASSESSMENT AND PLAN:
--- NOTE | 2019-12-29 11:12 | PN ---
Teaching Attending Note Name of Resident: Justin Cardona ATTENDING PHYSICIAN STATEMENT I saw and evaluated the patient. I reviewed the resident's note and discussed the case with the resident. I agree with the resident's findings and plan as documented. SUBJECTIVE: Pt seen and examined in the ICU. Remains intubated, sedated. Off pressors. Artemio andra on volume assist control with 70% FiO2, PEEP 10. OBJECTIVE: Vital Signs Period Temp Pulse Resp BP Sys/Clements Pulse Ox Last 24 Hr 98.1 F-98.9 F 74-103 18-26 87-139/50-78 93-94 Intake & Output 12/26/19 12/27/19 12/28/19 12/29/19 23:59 23:59 23:59 23:59 Intake Total 3122.1 2586 1628 1112 Output Total 1680 1175 3275 1100 Balance 1442.1 1411 -1647 12 Weight 112.037 kg 113.67 kg 112.037 kg 112.037 kg Gen: intubated, sedated Heart: tachycardic, regular Lung: scattered rhonchi Abd: soft, +ascites Ext: + edema CBC, BMP 12/28/19 06:00 12/29/19 06:00 Active Medications Albuterol/Ipratropium (Duoneb -) 1 amp NEB Q4H PRN PRN Reason: SHORTNESS OF BREATH Apixaban (Eliquis -) 5 mg PO BID [facility] Last Admin: 12/29/19 10:55 Dose: 5 mg Documented by: Ascorbic Acid (Vitamin C -) 1,000 mg PO DAILY [facility] Last Admin: 12/29/19 10:53 Dose: 1,000 mg Documented by: Chlorhexidine Gluconate (Peridex -) 15 ml MM BID [facility] Last Admin: 12/29/19 10:55 Dose: 15 ml Documented by: Furosemide (Lasix Injection -) 40 mg IVPUSH DAILY [facility] Last Admin: 12/29/19 10:58 Dose: 40 mg Documented by: Hydrocortisone Sodium Succinate (Solu-Cortef -) 50 mg IVPUSH Q8H-IV [facility] Last Admin: 12/29/19 01:10 Dose: 50 mg Documented by: Propofol (Diprivan -) 1,000,000 mcg in 100 mls @ 3.266 mls/hr IVPB TITR LYNETTE; Protocol Last Admin: 12/29/19 11:08 Dose: 20 mcg/kg/min, 13.063 mls/hr Documented by: Midazolam HCl (Midazolam 100mg/100ml-0.9%Nacl) 100 mg in 100 mls @ 1 mls/hr IVPB TITR LYNETTE; Protocol Last Admin: 12/27/19 23:36 Dose: 5 mg/hr, 5 mls/hr Documented by: Vancomycin HCl (Vancomycin (Pre-Docked)) 1,000 mg in 250 mls @ 166.667 mls/hr IVPB Q12H LNYETTE; Protocol Last Admin: 12/29/19 01:40 Dose: 166.667 mls/hr Documented by: Meropenem 1 gm/ Dextrose 100 mls @ 200 mls/hr IVPB Q8H-IV [facility]NETTE Last Admin: 12/29/19 10:56 Dose: 200 mls/hr Documented by: Vasopressin 40 units/ Sodium (Chloride) 100 mls @ 5 mls/hr IVPB ASDIR LYNETTE; Pro tocol Last Admin: 12/28/19 16:41 Dose: 2 units/hr, 5 mls/hr Documented by: Metoprolol Tartrate (Lopressor -) 25 mg PO BID [facility] Last Admin: 12/28/19 21:15 Dose: 25 mg Documented by: Multivitamins/Minerals/Vitamin C (Tab-A-Vit -) 1 tab PO DAILY [facility] Last Admin: 12/29/19 10:54 Dose: 1 tab Documented by: Pantoprazole Sodium (Protonix Iv) 40 mg IVPUSH DAILY [facility] Last Admin: 12/29/19 11:02 Dose: 40 mg Documented by: ASSESSMENT AND PLAN: Acute on Chronic Hypoxic and Hypercapneic Respiratory Failure Pneumonia ARDS Septic Shock Acute on Chronic Diastolic Heart Failure Pulmonary HTN Paroxysmal Atrial Fibrillation CAD Acute Kidney Injury Likely COPD JUANA/OHS HTN Hypercholesterolemia - continue antibiotics - f/u pending cultures - off pressors, maintain MAP >65 - taper stress dose steroids - rate control - continue anticoagulation - low tidal volume ventilation - titrate FiO2, PEEP to keep SpO2 >90% - continue lasix - monitor urine output, creatinine - enteral feeds - DVT/GI prophylaxis - continue ICU monitoring critical care time spent in reviewing chart, evaluating patient and formulating plan 35 min
--- NOTE | 2019-12-29 16:07 | PN ---
Progress Note, Physician History of Present Illness: sedated,vented,on pressors still spiking fevers - Current Medication List Current Medications: Active Medications Albuterol/Ipratropium (Duoneb -) 1 amp NEB Q4H PRN PRN Reason: SHORTNESS OF BREATH Apixaban (Eliquis -) 5 mg PO BID [facility] Last Admin: 12/29/19 10:55 Dose: 5 mg Documented by: Ascorbic Acid (Vitamin C -) 1,000 mg PO DAILY [facility] Last Admin: 12/29/19 10:53 Dose: 1,000 mg Documented by: Chlorhexidine Gluconate (Peridex -) 15 ml MM BID [facility] Last Admin: 12/29/19 10:55 Dose: 15 ml Documented by: Furosemide (Lasix Injection -) 40 mg IVPUSH DAILY [facility] Last Admin: 12/29/19 10:58 Dose: 40 mg Documented by: Hydrocortisone Sodium Succinate (Solu-Cortef -) 50 mg IVPUSH Q8H-IV [facility] Last Admin: 12/29/19 01:10 Dose: 50 mg Documented by: Propofol (Diprivan -) 1,000,000 mcg in 100 mls @ 3.266 mls/hr IVPB TITR LYNETTE; Protocol Last Admin: 12/29/19 11:08 Dose: 20 mcg/kg/min, 13.063 mls/hr Documented by: Midazolam HCl (Midazolam 100mg/100ml-0.9%Nacl) 100 mg in 100 mls @ 1 mls/hr IVPB TITR LYNETTE; Protocol Last Admin: 12/27/19 23:36 Dose: 5 mg/hr, 5 mls/hr Documented by: Vancomycin HCl (Vancomycin (Pre-Docked)) 1,000 mg in 250 mls @ 166.667 mls/hr IVPB Q12H LYNETTE; Protocol Last Admin: 12/29/19 15:43 Dose: 166.667 mls/hr Documented by: Meropenem 1 gm/ Dextrose 100 mls @ 200 mls/hr IVPB Q8H-IV [facility]TE Last Admin: 12/29/19 10:56 Dose: 200 mls/hr Documented by: Vasopressin 40 units/ Sodium (Chloride) 100 mls @ 5 mls/hr IVPB ASDIR LYNETTE; Protocol Last Admin: 12/28/19 16:41 Dose: 2 units/hr, 5 mls/hr Documented by: Metoprolol Tartrate (Lopressor -) 25 mg PO BID [facility] Last Admin: 12/28/19 21:15 Dose: 25 mg Documented by: Multivitamins/Minerals/Vitamin C (Tab-A-Vit -) 1 tab PO DAILY [facility] Last Admin: 12/29/19 10:54 Dose: 1 tab Documented by: Pantoprazole Sodium (Protonix Iv) 40 mg IVPUSH DAILY [facility] Last Admin: 12/29/19 11:02 Dose: 40 mg Documented by: - Objective Vital Signs: Vital Signs Temperature 98.9 F 12/29/19 06:00 Pulse Rate 93 H 12/29/19 15:30 Respiratory Rate 24 H 12/29/19 15:30 Blood Pressure 111/56 L 12/29/19 14:00 O2 Sat by Pulse Oximetry (%) 92 L 12/29/19 15:30 Constitutional: Yes: Other Cardiovascular: Yes: S1, S2 Respiratory: Yes: Intubated, Mechanically Ventilated Gastrointestinal: Yes: Normal Bowel Sounds, Soft Musculoskeletal: Yes: WNL Extremities: Yes: Other Neurological: Yes: Other Labs: CBC, BMP 12/28/19 06:00 12/29/19 06:00 INR, PTT INR 1.34 (0.83-1.09) H 12/16/19 18:40 - ....Imaging Chest X-ray: Report Reviewed, Image Reviewed Assessment/Plan 64 year old male with a past medical history of HTN, HLD, JUANA (not using CPAP), COPD, GERD, systolic congestive heart failure, paroxysmal atrial fibrillation (on Eliquis, s/p cardioversion 11/2016) who presented with 3 weeks of gradual onset anasarca, scrotal swelling and mild shortness of breath worse on exertion. He as found to have a PNA, on clinical exam signs of fluid overload, ?bilateral lower extremity cellulitis and bilateral hydrocele. 1. Acute Respiratory Failure 2. Fluid Overload/ 3.Bilateral Lower Extremity Cellulitis 4. Hydrocele 5. Hypertension 6. Atrial Fibrillation 7. Elevated Troponin 8. Rule Out COVID 9 pna plan repeat blood cx pending continue abx monitor fevers icu mgmt vent mgmt res as per icu vanco levels noted aspiration precautions cc 38 min
[2019-12-29] MEDS ORDERED: PROPOFOL 1,000,000 MCG/100 ML VIAL ONE (16:17)
[2019-12-29] MEDS ORDERED: MIDAZOLAM IN 0.9 % SOD.CHLORID 1 MG/1 ML PLAST..BAG ONE (16:17)
--- NOTE | 2019-12-29 17:36 | PN ---
Progress Note, Physician History of Present Illness: Pt seen and examined at bedside. He remains in the ICU. He remains intubated. He is making urine. - Current Medication List Current Medications: Active Medications Albuterol/Ipratropium (Duoneb -) 1 amp NEB Q4H PRN PRN Reason: SHORTNESS OF BREATH Apixaban (Eliquis -) 5 mg PO BID [facility] Last Admin: 12/29/19 10:55 Dose: 5 mg Documented by: Ascorbic Acid (Vitamin C -) 1,000 mg PO DAILY [facility] Last Admin: 12/29/19 10:53 Dose: 1,000 mg Documented by: Chlorhexidine Gluconate (Peridex -) 15 ml MM BID [facility] Last Admin: 12/29/19 10:55 Dose: 15 ml Documented by: Furosemide (Lasix Injection -) 40 mg IVPUSH DAILY [facility] Last Admin: 12/29/19 10:58 Dose: 40 mg Documented by: Hydrocortisone Sodium Succinate (Solu-Cortef -) 50 mg IVPUSH Q8H-IV [facility] Last Admin: 12/29/19 01:10 Dose: 50 mg Documented by: Propofol (Diprivan -) 1,000,000 mcg in 100 mls @ 3.266 mls/hr IVPB TITR LYNETTE; Protocol Last Admin: 12/29/19 16:32 Dose: 20 mcg/kg/min, 13.063 mls/hr Documented by: Midazolam HCl (Midazolam 100mg/100ml-0.9%Nacl) 100 mg in 100 mls @ 1 mls/hr IVPB TITR LYNETTE; Protocol Last Admin: 12/27/19 23:36 Dose: 5 mg/hr, 5 mls/hr Documented by: Vancomycin HCl (Vancomycin (Pre-Docked)) 1,000 mg in 250 mls @ 166.667 mls/hr IVPB Q12H LYNETTE; Protocol Last Admin: 12/29/19 15:43 Dose: 166.667 mls/hr Documented by: Meropenem 1 gm/ Dextrose 100 mls @ 200 mls/hr IVPB Q8H-IV [facility] Last Admin: 12/29/19 10:56 Dose: 200 mls/hr Documented by: Vasopressin 40 units/ Sodium (Chloride) 100 mls @ 5 mls/hr IVPB ASDIR LYNETTE; Protocol Last Admin: 06/24/20 16:41 Dose: 2 units/hr, 5 mls/hr Documented by: Metoprolol Tartrate (Lopressor -) 25 mg PO BID [facility] Last Admin: 12/28/19 21:15 Dose: 25 mg Documented by: Multivitamins/Minerals/Vitamin C (Tab-A-Vit -) 1 tab PO DAILY [facility] Last Admin: 12/29/19 10:54 Dose: 1 tab Documented by: Pantoprazole Sodium (Protonix Iv) 40 mg IVPUSH DAILY [facility] Last Admin: 12/29/19 11:02 Dose: 40 mg Documented by: - Objective Vital Signs: Vital Signs Temperature 98.4 F 12/29/19 12:00 Pulse Rate 93 H 12/29/19 15:30 Respiratory Rate 24 H 12/29/19 15:30 Blood Pressure 111/56 L 12/29/19 14:00 O2 Sat by Pulse Oximetry (%) 92 L 12/29/19 15:30 Constitutional: Yes: Calm Eyes: Yes: Conjunctiva Clear HENT: Yes: Atraumatic Neck: Yes: Supple Cardiovascular: Yes: S1, S2 Respiratory: Yes: Mechanically Ventilated Gastrointestinal: Yes: Soft, Abdomen, Obese Genitourinary: Yes: Hilario Present Musculoskeletal: Yes: Muscle Weakness Edema: Yes Integumentary: Yes: Venous Stasis Changes Neurological: Yes: Lethargy Labs: CBC, BMP 12/28/19 06:00 12/29/19 06:00 INR, PTT INR 1.34 (0.83-1.09) H 12/16/19 18:40 - ....Imaging Chest X-ray: Report Reviewed Problem List - Problems (1) Anasarca Code(s): R60.1 - GENERALIZED EDEMA (2) Congestive heart failure (CHF) Code(s): I50.9 - HEART FAILURE, UNSPECIFIED Qualifiers: Heart failure type: diastolic Heart failure chronicity: acute on chronic Qualified Code(s): I50.33 - Acute on chronic diastolic (congestive) heart failure (3) Acute kidney injury Code(s): N17.9 - ACUTE KIDNEY FAILURE, UNSPECIFIED Assessment/Plan Current Medications Generic Name Dose Route Start Last Admin Trade Name Freq PRN Reason Stop Dose Admin Albuterol/Ipratropium 1 amp 12/26/19 11:46 Duoneb - NEB Q4H PRN SHORTNESS OF BREATH Apixaban 5 mg 12/16/19 22:00 12/29/19 10:55 Eliquis - PO 5 mg BID LYNETTE Administration Ascorbic Acid 1,000 mg 12/17/19 10:00 12/29/19 10:53 Vitamin C - PO 1,000 mg DAILY [facility]NETTE Administration Chlorhexidine Gluconate 15 ml 12/22/19 12:30 12/29/19 10:55 Peridex - MM 15 ml BID [facility]NETTE Administration Furosemide 40 mg 12/29/19 10:00 12/29/19 10:58 Lasix Injection - IVPUSH 40 mg DAILY [facility]NETTE Administration Hydrocortisone Sodium Succinate 50 mg 12/28/19 10:45 12/29/19 17:31 Solu-Cortef - IVPUSH 50 mg Q8H-IV [facility]NETTE Administration Propofol 1,000,000 mcg in 100 mls @ 3.266 mls/hr 12/17/19 04:30 12/29/19 16:32 Diprivan - IVPB 20 mcg/kg/min TITR L[facility]NETTE 13.063 mls/hr Administration Protocol 5 MCG/KG/MIN Midazolam HCl 100 mg in 100 mls @ 1 mls/hr 12/22/19 08:00 12/27/19 23:36 Midazolam 100mg/100ml-0.9%Nacl IVPB 5 mg/hr TITR LYNETTE 5 mls/hr Administration Protocol 1 MG/HR Vancomycin HCl 1,000 mg in 250 mls @ 166.667 mls/hr 12/24/19 14:15 12/29/19 15:43 Vancomycin (Pre-Docked) IVPB 166.667 mls/hr Q12H L[facility]NETTE Administration Protocol Meropenem 1 gm/ Dextrose 100 mls @ 200 mls/hr 12/25/19 02:45 12/29/19 17:32 IVPB 200 mls/hr Q8H-IV L[facility]NETTE Administration Vasopressin 40 units/ Sodium 100 mls @ 5 mls/hr 12/28/19 16:30 12/28/19 16:41 Chloride IVPB 2 units/hr ASDIR LYNETTE 5 mls/hr Administration Protocol 2 UNITS/HR Metoprolol Tartrate 25 mg 12/19/19 12:00 12/28/19 21:15 Lopressor - PO 25 mg BID [facility]NETTE Administration Multivitamins/Minerals/Vitamin C 1 tab 12/17/19 10:00 12/29/19 10:54 Tab-A-Vit - PO 1 tab DAILY [facility] Administration Pantoprazole Sodium 40 mg 12/19/19 10:00 12/29/19 11:02 Protonix Iv IVPUSH 40 mg DAILY [facility] Administration Impression 1. MONIE 2. CHF acute 3. acute resp failure requiring intubation 4. atrial fibrillation 5. hx of htn 6. obesity 7. chronic smoker 8. hypokalemia Plan - renal function improving - monitor bun with steroid taper - replace potassium - cont vent support - cont tube feeds - pressors to map 65 - monitor urine output - cont lasix - discussed with ICU team - hold areli and bp meds - monitor volume status
[2019-12-29] MEDS: MIDAZOLAM IN 0.9 % SOD.CHLORID 100 MG/100 ML PLAST..BAG IVPB SCH (18:05)
[2019-12-29] MEDS: METOPROLOL TARTRATE 25 MG TABLET (FP) PO SCH (21:05)
[2019-12-30] MEDS: METOPROLOL TARTRATE 25 MG TABLET (FP) PO SCH ×3 (00:35→22:30)
[2019-12-30] MEDS: VASOPRESSIN 40 UNITS in SODIUM CHLORIDE 98 ML IVPB SCH ×2 (00:35→17:32)
[2019-12-30] MEDS: HYDROCORTISONE SOD SUCCINATE 100 MG/2 ML VIAL IVPUSH SCH ×4 (00:35→17:49)
[2019-12-30] MEDS: MEROPENEM 1 GM in DEXTROSE 5%-WATER 100 ML IVPB SCH ×2 (01:06→09:54)
[2019-12-30] MEDS: VANCOMYCIN 1 GRAM (PRE-DOCKED) 1,000 MG/250 ML BAG IVPB SCH ×2 (01:29→15:15)
[2019-12-30] MEDS ORDERED: MEROPENEM 1 GM VIAL (RESTRICTED TO ID) IVPB ONE ×2 (02:18→09:31)
[2019-12-30] MEDS ORDERED: DEXTROSE 5%-WATER 100 ML IVPB ONE ×2 (02:18→09:31)
[2019-12-30] MEDS: PROPOFOL 1,000,000 MCG/100 ML VIAL IVPB SCH ×3 (05:01→18:07)
[2019-12-30 06:38] LABS: HEMOGLOBIN 14.1 GM/dL (11.7-16.9); MCH 23.1 pg (25.7-33.7); MCHC 28.7 g/dl (32.0-35.9); MEAN CELL VOLUME 80.5 fl (80-96); MEAN PLT VOLUME 9.9 fl (7.5-11.1); PLATELET COUNT 132 K/MM3 (134-434); RBC 6.09 M/mm3 (4.00-5.60); RDW 23.7 % (11.9-15.9)
[2019-12-30 07:11] LABS: BLOOD UREA NITROGEN 86.6 mg/dL (7-18); CALCIUM 9.2 mg/dL (8.5-10.1); CREATININE 0.8 mg/dL (0.55-1.3); POTASSIUM 3.2 mmol/L (3.5-5.1)
[2019-12-30] MEDS: PANTOPRAZOLE SODIUM 40 MG VIAL IVPUSH SCH (09:52)
[2019-12-30] MEDS: APIXABAN 5 MG TABLET PO SCH ×2 (09:53→21:11)
[2019-12-30] MEDS: MULTIVITAMINS (DAILY MVI) TABLET (FP) PO SCH (09:53)
[2019-12-30] MEDS: CHLORHEXIDINE GLUCONATE 0.12% 15ML CUP MM SCH ×2 (09:53→21:12)
[2019-12-30] MEDS: ASCORBIC ACID 500 MG TABLET (FP) PO SCH (09:53)
[2019-12-30] MEDS: FUROSEMIDE 40 MG/4 ML INJECTABLE VIAL IVPUSH SCH ×2 (09:54→15:24)
[2019-12-30] MEDS: KCL 10 MEQ IVPB 10 MEQ/100 ML INFUS.BAG IVPB SCH ×3 (09:55→11:49)
--- NOTE | 2019-12-30 09:59 | PN ---
Progress Note, Physician History of Present Illness: Pt seen and examined at bedside. He remains in the ICU. He remains intubated. - Current Medication List Current Medications: Active Medications Albuterol/Ipratropium (Duoneb -) 1 amp NEB Q4H PRN PRN Reason: SHORTNESS OF BREATH Apixaban (Eliquis -) 5 mg PO BID [facility] Last Admin: 12/30/19 09:53 Dose: 5 mg Documented by: Ascorbic Acid (Vitamin C -) 1,000 mg PO DAILY [facility] Last Admin: 12/30/19 09:53 Dose: 1,000 mg Documented by: Chlorhexidine Gluconate (Peridex -) 15 ml MM BID [facility] Last Admin: 12/30/19 09:53 Dose: 15 ml Documented by: Furosemide (Lasix Injection -) 40 mg IVPUSH DAILY [facility] Last Admin: 12/30/19 09:54 Dose: 40 mg Documented by: Hydrocortisone Sodium Succinate (Solu-Cortef -) 50 mg IVPUSH Q8H-IV [facility] Last Admin: 12/30/19 09:52 Dose: 50 mg Documented by: Propofol (Diprivan -) 1,000,000 mcg in 100 mls @ 3.266 mls/hr IVPB TITR [facility]; Protocol Last Admin: 12/30/19 05:01 Dose: 20 mcg/kg/min, 13.063 mls/hr Documented by: Midazolam HCl (Midazolam 100mg/100ml-0.9%Nacl) 100 mg in 100 mls @ 1 mls/hr IVPB TITR [facility]; Protocol Last Admin: 12/29/19 18:05 Dose: 5 mg/hr, 5 mls/hr Documented by: Vancomycin HCl (Vancomycin (Pre-Docked)) 1,000 mg in 250 mls @ 166.667 mls/hr IVPB Q12H [facility]; Protocol Last Admin: 12/30/19 01:29 Dose: 166.667 mls/hr Documented by: Meropenem 1 gm/ Dextrose 100 mls @ 200 mls/hr IVPB Q8H-IV [facility] Last Admin: 12/30/19 09:54 Dose: 200 mls/hr Documented by: Vasopressin 40 units/ Sodium (Chloride) 100 mls @ 5 mls/hr IVPB ASDIR [facility]; Protocol Last Admin: 12/30/19 00:35 Dose: Not Given Documented by: Potassium Chloride (Potassium Chloride 10 Meq Premix Ivpb -) 10 meq in 100 mls @ 100 mls/hr IVPB Q60M [facility] Stop: 12/30/19 11:44 Last Admin: 12/30/19 09:55 Dose: 100 mls/hr Documented by: Metoprolol Tartrate (Lopressor -) 25 mg PO BID [facility] Last Admin: 12/30/19 00:35 Dose: Not Given Documented by: Multivitamins/Minerals/Vitamin C (Tab-A-Vit -) 1 tab PO DAILY [facility] Last Admin: 12/30/19 09:53 Dose: 1 tab Documented by: Pantoprazole Sodium (Protonix Iv) 40 mg IVPUSH DAILY [facility] Last Admin: 12/30/19 09:52 Dose: 40 mg Documented by: - Objective Vital Signs: Vital Signs Temperature 99 F 12/30/19 06:00 Pulse Rate 80 12/30/19 08:34 Respiratory Rate 24 H 12/30/19 08:34 Blood Pressure 120/69 12/30/19 08:00 O2 Sat by Pulse Oximetry (%) 92 L 12/30/19 08:34 Constitutional: Yes: Calm Eyes: Yes: Conjunctiva Clear HENT: Yes: Atraumatic Neck: Yes: Supple Cardiovascular: Yes: S1, S2 Respiratory: Yes: Mechanically Ventilated Gastrointestinal: Yes: Soft, Abdomen, Obese Genitourinary: Yes: Hilario Present Musculoskeletal: Yes: Muscle Weakness Edema: Yes Edema: LLE: Trace, RLE: Trace Integumentary: Yes: Venous Stasis Changes Neurological: Yes: Lethargy Labs: CBC, BMP 12/30/19 06:15 12/30/19 06:15 INR, PTT INR 1.34 (0.83-1.09) H 12/16/19 18:40 - ....Imaging Chest X-ray: Report Reviewed Problem List - Problems (1) Anasarca Code(s): R60.1 - GENERALIZED EDEMA (2) Congestive heart failure (CHF) Code(s): I50.9 - HEART FAILURE, UNSPECIFIED Qualifiers: Heart failure type: diastolic Heart failure chronicity: acute on chronic Qualified Code(s): I50.33 - Acute on chronic diastolic (congestive) heart failure (3) Acute kidney injury Code(s): N17.9 - ACUTE KIDNEY FAILURE, UNSPECIFIED Assessment/Plan Current Medications Generic Name Dose Route Start Last Admin Trade Name Taylor PRN Reason Stop Dose Admin Albuterol/Ipratropium 1 amp 12/26/19 11:46 Duoneb - NEB Q4H PRN SHORTNESS OF BREATH Apixaban 5 mg 12/16/19 22:00 12/30/19 09:53 Eliquis - PO 5 mg BID [facility] Administration Ascorbic Acid 1,000 mg 12/17/19 10:00 12/30/19 09:53 Vitamin C - PO 1,000 mg DAILY [facility] Administration Chlorhexidine Gluconate 15 ml 12/22/19 12:30 12/30/19 09:53 Peridex - MM 15 ml BID [facility] Administration Furosemide 40 mg 12/29/19 10:00 12/30/19 09:54 Lasix Injection - IVPUSH 40 mg DAILY [facility] Administration Hydrocortisone Sodium Succinate 50 mg 12/28/19 10:45 12/30/19 09:52 Solu-Cortef - IVPUSH 50 mg Q8H-IV [facility] Administration Propofol 1,000,000 mcg in 100 mls @ 3.266 mls/hr 12/17/19 04:30 12/30/19 05:01 Diprivan - IVPB 20 mcg/kg/min TITR [facility] 13.063 mls/hr Administration Protocol 5 MCG/KG/MIN Midazolam HCl 100 mg in 100 mls @ 1 mls/hr 12/22/19 08:00 12/29/19 18:05 Midazolam 100mg/100ml-0.9%Nacl IVPB 5 mg/hr TITR [facility] 5 mls/hr Administration Protocol 1 MG/HR Vancomycin HCl 1,000 mg in 250 mls @ 166.667 mls/hr 12/24/19 14:15 12/30/19 01:29 Vancomycin (Pre-Docked) IVPB 166.667 mls/hr Q12H [facility] Administration Protocol Meropenem 1 gm/ Dextrose 100 mls @ 200 mls/hr 12/25/19 02:45 12/30/19 09:54 IVPB 200 mls/hr Q8H-IV [facility] Administration Vasopressin 40 units/ Sodium 100 mls @ 5 mls/hr 12/28/19 16:30 12/30/19 00:35 Chloride IVPB Not Given ASDIR [facility] Protocol 2 UNITS/HR Potassium Chloride 10 meq in 100 mls @ 100 mls/hr 12/30/19 08:45 12/30/19 09:55 Potassium Chloride 10 Meq Premix Ivpb - IVPB 12/30/19 11:44 100 mls/hr Q60M [facility] Administration Metoprolol Tartrate 25 mg 12/19/19 12:00 12/30/19 00:35 Lopressor - PO Not Given BID [facility] Multivitamins/Minerals/Vitamin C 1 tab 12/17/19 10:00 12/30/19 09:53 Tab-A-Vit - PO 1 tab DAILY [facility] Administration Pantoprazole Sodium 40 mg 12/19/19 10:00 12/30/19 09:52 Protonix Iv IVPUSH 40 mg DAILY [facility] Administration Impression 1. MONIE 2. CHF acute 3. acute resp failure requiring intubation 4. atrial fibrillation 5. hx of htn 6. obesity 7. chronic smoker 8. hypokalemia Plan - replace potassium - renal function stable - cont vent support - maintain map 65 - cont tube feeds - monitor urine output - cont lasix - discussed with ICU team - hold areli and bp meds - monitor volume status
--- NOTE | 2019-12-30 10:49 | PN ---
Progress Note (short form) - Note Progress Note: 4 year old male with a past medical history of HTN, HLD, JUANA (not using CPAP), COPD, GERD, systolic congestive heart failure, paroxysmal atrial fibrillation (on Eliquis, s/p cardioversion 11/2016) who presented with 3 weeks of gradual onset anasarca, scrotal swelling and mild shortness of breath worse on exertion. CXR s/f diffused bilat opacities with c/f PNA +/-fluid overload, ?bilateral lower extremity cellulitis and bilateral hydrocele, and respiratory acidosis is admitted for Acute hypercapneic respiratory failure and Acute CHF exacerbation, intubated for progressive hypercarbic respiratory failure, decreased mental status on BiPAP. 12/29/2019 Remains intubated, sedated weaned off vasopressin gtt. Vented on volume assist control with 70% FiO2, PEEP 10. Afebrile. 11/28: No acute cardiac events;emains intubated; off pressors and BP meds; - Objective Vital Signs: Vital Signs Temperature 99 F 12/30/19 06:00 Pulse Rate 80 12/30/19 08:34 Respiratory Rate 24 H 12/30/19 08:34 Blood Pressure 120/69 12/30/19 08:00 O2 Sat by Pulse Oximetry (%) 92 L 12/30/19 08:34 Cardiovascular: Yes: Regular Rate and Rhythm Respiratory: Yes: Intubated, Mechanically Ventilated, Rhonchi Gastrointestinal: Yes: Normal Bowel Sounds, Soft Genitourinary: Yes: Hilario Present Edema: Yes Edema: LLE: Trace, RLE: Trace Integumentary: Yes: Venous Stasis Changes Labs: CBC, BMP 12/30/19 06:15 12/30/19 06:15 Active Medications Albuterol/Ipratropium (Duoneb -) 1 amp NEB Q4H PRN PRN Reason: SHORTNESS OF BREATH Apixaban (Eliquis -) 5 mg PO BID [facility] Last Admin: 12/30/19 09:53 Dose: 5 mg Documented by: Ascorbic Acid (Vitamin C -) 1,000 mg PO DAILY [facility] Last Admin: 12/30/19 09:53 Dose: 1,000 mg Documented by: Chlorhexidine Gluconate (Peridex -) 15 ml MM BID [facility] Last Admin: 12/30/19 09:53 Dose: 15 ml Documented by: Furosemide (Lasix Injection -) 40 mg IVPUSH DAILY [facility] Last Admin: 12/30/19 09:54 Dose: 40 mg Documented by: Hydrocortisone Sodium Succinate (Solu-Cortef -) 50 mg IVPUSH Q8H-IV [facility] Last Admin: 12/30/19 09:52 Dose: 50 mg Documented by: Propofol (Diprivan -) 1,000,000 mcg in 100 mls @ 3.266 mls/hr IVPB TITR [facility]; Protocol Last Admin: 12/30/19 05:01 Dose: 20 mcg/kg/min, 13.063 mls/hr Documented by: Midazolam HCl (Midazolam 100mg/100ml-0.9%Nacl) 100 mg in 100 mls @ 1 mls/hr IVPB TITR [facility]; Protocol Last Admin: 12/29/19 18:05 Dose: 5 mg/hr, 5 mls/hr Documented by: Vancomycin HCl (Vancomycin (Pre-Docked)) 1,000 mg in 250 mls @ 166.667 mls/hr IVPB Q12H [facility]; Protocol Last Admin: 12/30/19 01:29 Dose: 166.667 mls/hr Documented by: Meropenem 1 gm/ Dextrose 100 mls @ 200 mls/hr IVPB Q8H-IV [facility] Last Admin: 12/30/19 09:54 Dose: 200 mls/hr Documented by: Vasopressin 40 units/ Sodium (Chloride) 100 mls @ 5 mls/hr IVPB ASDIR [facility]; Protocol Last Admin: 12/30/19 00:35 Dose: Not Given Documented by: Potassium Chloride (Potassium Chloride 10 Meq Premix Ivpb -) 10 meq in 100 mls @ 100 mls/hr IVPB Q60M [facility] Stop: 12/30/19 11:44 Last Admin: 12/30/19 09:55 Dose: 100 mls/hr Documented by: Metoprolol Tartrate (Lopressor -) 25 mg PO BID [facility] Last Admin: 12/30/19 00:35 Dose: Not Given Documented by: Multivitamins/Minerals/Vitamin C (Tab-A-Vit -) 1 tab PO DAILY [facility] Last Admin: 12/30/19 09:53 Dose: 1 tab Documented by: Pantoprazole Sodium (Protonix Iv) 40 mg IVPUSH DAILY [facility] Last Admin: 12/30/19 09:52 Dose: 40 mg Documented by: Problem List - Problems (1) Congestive heart failure (CHF) Code(s): I50.9 - HEART FAILURE, UNSPECIFIED Qualifiers: Heart failure type: diastolic Heart failure chronicity: acute on chronic Qualified Code(s): I50.33 - Acute on chronic diastolic (congestive) heart failure (2) Pneumonia Code(s): J18.9 - PNEUMONIA, UNSPECIFIED ORGANISM Qualifiers: Pneumonia type: due to unspecified organism Laterality: right Lung location: lower lobe of lung Qualified Code(s): J18.9 - Pneumonia, unspecified organism (3) Acute on chronic diastolic (congestive) heart failure Code(s): I50.33 - ACUTE ON CHRONIC DIASTOLIC (CONGESTIVE) HEART FAILURE (4) Acute respiratory failure with hypoxia and hypercarbia Code(s): J96.01 - ACUTE RESPIRATORY FAILURE WITH HYPOXIA; J96.02 - ACUTE RESPIRATORY FAILURE WITH HYPERCAPNIA (5) Atrial fibrillation Code(s): I48.91 - UNSPECIFIED ATRIAL FIBRILLATION Qualifiers: Atrial fibrillation type: paroxysmal Qualified Code(s): I48.0 - Paroxysmal atrial fibrillation (6) COPD (chronic obstructive pulmonary disease) Code(s): J44.9 - CHRONIC OBSTRUCTIVE PULMONARY DISEASE, UNSPECIFIED Qualifiers: COPD type: unspecified COPD Qualified Code(s): J44.9 - Chronic obstructive pulmonary disease, unspecified (7) Hypertension Code(s): I10 - ESSENTIAL (PRIMARY) HYPERTENSION Qualifiers: Hypertension type: essential hypertension Qualified Code(s): I10 - Essential (primary) hypertension (8) Lymphedema of both lower extremities Code(s): I89.0 - LYMPHEDEMA, NOT ELSEWHERE CLASSIFIED (9) Pleural effusion Code(s): J90 - PLEURAL EFFUSION, NOT ELSEWHERE CLASSIFIED Assessment/Plan 10/26/2017 Normal LV size with mild LVH, normal LV fxn, normal RV size and fxn, mild LAE, mild MR, mild-mod TR, mild RI, RVSP 43 mmHg 11/19/2016 Lexiscan Myoview: Apical ischemia, LVEF 45-52% 10/06/2016 Echocardiography revealed mild to moderate LV systolic dysfunction, moderate TR, RVSP of 30-40 mmH 1. Acute on chronic Hypoxic and Hypercapneic Respiratory Failure, currently intubated 2. Acute on chronic LV Diastolic Heart Failure with pleural effusion 3. Pneumonia (septic shock) 4. Paroxysmal atrial fibrillation with periods of rapid ventricular response post DCCV, [id number] score of 2 5. Obstructive Sleep Apnea/Obesity Hypoventilation Syndrome with dental appliance 6. HTN/HCVD 7. Hypercholesterolemia 8. CAD angina pectoris 9. Bilateral cellulitis with h/o abscess s/p debridement 10. Bilateral hydrocele 11. Azotemia PLAN: 1. ICU care 2-Cont lasix, apixaban -resume BB when feasible
[2019-12-30] MEDS: MIDAZOLAM IN 0.9 % SOD.CHLORID 100 MG/100 ML PLAST..BAG IVPB SCH (10:58)
--- NOTE | 2019-12-30 13:44 | PN ---
Progress Note, Physician History of Present Illness: patient still with intubation being diuresed - Current Medication List Current Medications: Active Medications Albuterol/Ipratropium (Duoneb -) 1 amp NEB Q4H PRN PRN Reason: SHORTNESS OF BREATH Apixaban (Eliquis -) 5 mg PO BID [facility] Last Admin: 12/30/19 09:53 Dose: 5 mg Documented by: Ascorbic Acid (Vitamin C -) 1,000 mg PO DAILY [facility] Last Admin: 12/30/19 09:53 Dose: 1,000 mg Documented by: Chlorhexidine Gluconate (Peridex -) 15 ml MM BID [facility] Last Admin: 12/30/19 09:53 Dose: 15 ml Documented by: Furosemide (Lasix Injection -) 40 mg IVPUSH DAILY [facility] Last Admin: 12/30/19 09:54 Dose: 40 mg Documented by: Hydrocortisone Sodium Succinate (Solu-Cortef -) 50 mg IVPUSH Q8H-IV [facility] Last Admin: 12/30/19 09:52 Dose: 50 mg Documented by: Propofol (Diprivan -) 1,000,000 mcg in 100 mls @ 3.266 mls/hr IVPB TITR [facility]; Protocol Last Admin: 12/30/19 05:01 Dose: 20 mcg/kg/min, 13.063 mls/hr Documented by: Midazolam HCl (Midazolam 100mg/100ml-0.9%Nacl) 100 mg in 100 mls @ 1 mls/hr IVPB TITR [facility]; Protocol Last Admin: 12/30/19 10:58 Dose: 5 mg/hr, 5 mls/hr Documented by: Vancomycin HCl (Vancomycin (Pre-Docked)) 1,000 mg in 250 mls @ 166.667 mls/hr IVPB Q12H [facility]; Protocol Last Admin: 12/30/19 01:29 Dose: 166.667 mls/hr Documented by: Meropenem 1 gm/ Dextrose 100 mls @ 200 mls/hr IVPB Q8H-IV [facility] Last Admin: 12/30/19 09:54 Dose: 200 mls/hr Documented by: Vasopressin 40 units/ Sodium (Chloride) 100 mls @ 5 mls/hr IVPB ASDIR [facility]; Protocol Last Admin: 12/30/19 00:35 Dose: Not Given Documented by: Metoprolol Tartrate (Lopressor -) 25 mg PO BID [facility] Last Admin: 12/30/19 10:58 Dose: Not Given Documented by: Multivitamins/Minerals/Vitamin C (Tab-A-Vit -) 1 tab PO DAILY [facility] Last Admin: 12/30/19 09:53 Dose: 1 tab Documented by: Pantoprazole Sodium (Protonix Iv) 40 mg IVPUSH DAILY [facility] Last Admin: 12/30/19 09:52 Dose: 40 mg Documented by: - Objective Vital Signs: Vital Signs Temperature 98.9 F 12/30/19 10:00 Pulse Rate 91 H 12/30/19 12:00 Respiratory Rate 24 H 12/30/19 12:00 Blood Pressure 114/74 12/30/19 12:00 O2 Sat by Pulse Oximetry (%) 96 12/30/19 11:55 Constitutional: Yes: Other Gastrointestinal: Yes: Normal Bowel Sounds, Soft Musculoskeletal: Yes: WNL Extremities: Yes: WNL Psychiatric: Yes: Other Labs: CBC, BMP 12/30/19 06:15 12/30/19 06:15 INR, PTT INR 1.34 (0.83-1.09) H 12/16/19 18:40 Assessment/Plan 64 year old male with a past medical history of HTN, HLD, JUANA (not using CPAP), COPD, GERD, systolic congestive heart failure, paroxysmal atrial fibrillation (on Eliquis, s/p cardioversion 11/2016) who presented with 3 weeks of gradual onset anasarca, scrotal swelling and mild shortness of breath worse on exertion. He as found to have a PNA, on clinical exam signs of fluid overload, ?bilateral lower extremity cellulitis and bilateral hydrocele. 1. Acute Respiratory Failure 2. Fluid Overload/ 3.Bilateral Lower Extremity Cellulitis 4. Hydrocele 5. Hypertension 6. Atrial Fibrillation 7. Elevated Troponin 8. Rule Out COVID 9 pna plan cx reports noted monitor fevers icu mgmt vent mgmt res as per icu abx can be stopped and monitored cc 38 min
--- NOTE | 2019-12-30 14:10 | PN ---
Teaching Attending Note Name of Resident: Kodak Roach ATTENDING PHYSICIAN STATEMENT I saw and evaluated the patient. I reviewed the resident's note and discussed the case with the resident. I agree with the resident's findings and plan as documented. SUBJECTIVE: Patient seen and examined in the ICU. Remains intubated, sedated. Off pressors. Vented on volume assist control with 70% FiO2, PEEP 10. OBJECTIVE: Intake & Output 12/27/19 12/28/19 12/29/19 12/30/19 23:59 23:59 23:59 23:59 Intake Total 2586 1628 1937 576 Output Total 1175 3275 3500 1000 Balance 1411 -1647 -1563 -424 Weight 250 lb 9.6 oz 247 lb 247 lb 250 lb Last Vital Signs Temp Pulse Resp BP Pulse Ox 98.9 F 91 H 24 H 114/74 96 12/30/19 10:00 12/30/19 12:00 12/30/19 12:00 12/30/19 12:00 12/30/19 11:55 Active Medications Albuterol/Ipratropium (Duoneb -) 1 amp NEB Q4H PRN PRN Reason: SHORTNESS OF BREATH Apixaban (Eliquis -) 5 mg PO BID [facility] Last Admin: 12/30/19 09:53 Dose: 5 mg Documented by: Ascorbic Acid (Vitamin C -) 1,000 mg PO DAILY [facility] Last Admin: 12/30/19 09:53 Dose: 1,000 mg Documented by: Chlorhexidine Gluconate (Peridex -) 15 ml MM BID [facility] Last Admin: 12/30/19 09:53 Dose: 15 ml Documented by: Furosemide (Lasix Injection -) 40 mg IVPUSH DAILY [facility] Last Admin: 12/30/19 09:54 Dose: 40 mg Documented by: Hydrocortisone Sodium Succinate (Solu-Cortef -) 50 mg IVPUSH Q8H-IV [facility] Last Admin: 12/30/19 09:52 Dose: 50 mg Documented by: Propofol (Diprivan -) 1,000,000 mcg in 100 mls @ 3.266 mls/hr IVPB TITR [facility]; Protocol Last Admin: 12/30/19 05:01 Dose: 20 mcg/kg/min, 13.063 mls/hr Documented by: Midazolam HCl (Midazolam 100mg/100ml-0.9%Nacl) 100 mg in 100 mls @ 1 mls/hr IVPB TITR [facility]; Protocol Last Admin: 12/30/19 10:58 Dose: 5 mg/hr, 5 mls/hr Documented by: Vancomycin HCl (Vancomycin (Pre-Docked)) 1,000 mg in 250 mls @ 166.667 mls/hr IVPB Q12H [facility]; Protocol Last Admin: 12/30/19 01:29 Dose: 166.667 mls/hr Documented by: Meropenem 1 gm/ Dextrose 100 mls @ 200 mls/hr IVPB Q8H-IV [facility] Last Admin: 12/30/19 09:54 Dose: 200 mls/hr Documented by: Vasopressin 40 units/ Sodium (Chloride) 100 mls @ 5 mls/hr IVPB ASDIR [facility]; Protocol Last Admin: 12/30/19 00:35 Dose: Not Given Documented by: Metoprolol Tartrate (Lopressor -) 25 mg PO BID [facility] Last Admin: 12/30/19 10:58 Dose: Not Given Documented by: Multivitamins/Minerals/Vitamin C (Tab-A-Vit -) 1 tab PO DAILY [facility] Last Admin: 12/30/19 09:53 Dose: 1 tab Documented by: Pantoprazole Sodium (Protonix Iv) 40 mg IVPUSH DAILY [facility] Last Admin: 12/30/19 09:52 Dose: 40 mg Documented by: Gen: intubated, sedated Heart: tachycardic, regular Lung: scattered rhonchi Abd: soft, +ascites Ext: + edema Laboratory Results - last 24 hr 12/30/19 12/30/19 06:15 06:15 WBC 8.0 RBC 6.09 H Hgb 14.1 Hct 49.0 MCV 80.5 MCH 23.1 L MCHC 28.7 L RDW 23.7 H Plt Count 132 L MPV 9.9 Sodium 143 Potassium 3.2 L Chloride 102 Carbon Dioxide 42 H Anion Gap 0 L BUN 86.6 H Creatinine 0.8 Est GFR (CKD-EPI)AfAm 107.89 Est GFR (CKD-EPI)NonAf 93.09 Random Glucose 185 H Calcium 9.2 ASSESSMENT AND PLAN: Acute on Chronic Hypoxic and Hypercapneic Respiratory Failure Pneumonia ARDS Septic Shock Acute on Chronic Diastolic Heart Failure Pulmonary HTN Paroxysmal Atrial Fibrillation CAD Acute Kidney Injury Likely COPD JUANA/OHS HTN Hypercholesterolemia - continue antibiotics - off pressors, maintain MAP >65 - taper stress dose steroids - rate control - continue anticoagulation - low tidal volume ventilation - titrate FiO2, PEEP to keep SpO2 >90% - continue lasix - monitor urine output, creatinine - enteral feeds - DVT/GI prophylaxis - Wean trials as FiO2 & PEEP requirements improve - continue ICU monitoring Dr Sanz Critical care time spent in reviewing chart, evaluating patient and formulating plan 35 min
--- NOTE | 2019-12-30 14:35 | PN ---
Physical Exam: SUBJECTIVE: Patient seen and examined at bedside. Overnight he was taken off pressors. This AM he remains intubated, sedated, and is unable to participate in medical interview. OBJECTIVE: Vital Signs Period Temp Pulse Resp BP Sys/Clements Pulse Ox Last 24 Hr 98.9 F-99.8 F 67-94 16-24 90-123/50-74 88-96 GENERAL: sedated, vented EYES: Pupils equal, round and reactive to light, extraocular movements intact, sclera anicteric, conjunctiva clear. No lid lag. EARS, NOSE, THROAT: dry, mucous membranes. LUNGS: Breath sounds equal, clear to auscultation bilaterally. No wheezes, and no crackles. on Vent HEART: Regular rate and rhythm, normal S1 and S2 without murmur, rub or gallop. ABDOMEN: Soft, nontender, not distended, normoactive bowel sounds, no guarding, no rebound, no masses. UPPER EXTREMITIES: 2+ pulses, warm, well-perfused. No cyanosis. No peripheral edema. LOWER EXTREMITIES: 2+ pulses, warm, well-perfused. No calf tenderness. No peripheral edema. SKIN: Warm, dry, normal turgor, no rashes or lesions noted. Laboratory Results - last 24 hr 12/30/19 12/30/19 06:15 06:15 WBC 8.0 RBC 6.09 H Hgb 14.1 Hct 49.0 MCV 80.5 MCH 23.1 L MCHC 28.7 L RDW 23.7 H Plt Count 132 L MPV 9.9 Sodium 143 Potassium 3.2 L Chloride 102 Carbon Dioxide 42 H Anion Gap 0 L BUN 86.6 H Creatinine 0.8 Est GFR (CKD-EPI)AfAm 107.89 Est GFR (CKD-EPI)NonAf 93.09 Random Glucose 185 H Calcium 9.2 Active Medications Generic Name Dose Route Start Last Admin Trade Name Freq PRN Reason Stop Dose Admin Albuterol/Ipratropium 1 amp 12/26/19 11:46 Duoneb - NEB Q4H PRN SHORTNESS OF BREATH Apixaban 5 mg 12/16/19 22:00 12/30/19 09:53 Eliquis - PO 5 mg BID [facility] Administration Ascorbic Acid 1,000 mg 12/17/19 10:00 12/30/19 09:53 Vitamin C - PO 1,000 mg DAILY [facility] Administration Chlorhexidine Gluconate 15 ml 12/22/19 12:30 12/30/19 09:53 Peridex - MM 15 ml BID [facility] Administration Furosemide 40 mg 12/29/19 10:00 12/30/19 09:54 Lasix Injection - IVPUSH 40 mg DAILY [facility] Administration Hydrocortisone Sodium Succinate 50 mg 12/28/19 10:45 12/30/19 09:52 Solu-Cortef - IVPUSH 50 mg Q8H-IV [facility] Administration Propofol 1,000,000 mcg in 100 mls @ 3.266 mls/hr 12/17/19 04:30 12/30/19 05:01 Diprivan - IVPB 20 mcg/kg/min TITR [facility] 13.063 mls/hr Administration Protocol 5 MCG/KG/MIN Midazolam HCl 100 mg in 100 mls @ 1 mls/hr 12/22/19 08:00 12/30/19 10:58 Midazolam 100mg/100ml-0.9%Nacl IVPB 5 mg/hr TITR [facility] 5 mls/hr Administration Protocol 1 MG/HR Meropenem 1 gm/ Dextrose 100 mls @ 200 mls/hr 12/25/19 02:45 12/30/19 09:54 IVPB 200 mls/hr Q8H-IV [facility] Administration Vasopressin 40 units/ Sodium 100 mls @ 5 mls/hr 12/28/19 16:30 12/30/19 00:35 Chloride IVPB Not Given ASDIR [facility] Protocol 2 UNITS/HR Metoprolol Tartrate 25 mg 12/19/19 12:00 12/30/19 10:58 Lopressor - PO Not Given BID [facility] Multivitamins/Minerals/Vitamin C 1 tab 12/17/19 10:00 12/30/19 09:53 Tab-A-Vit - PO 1 tab DAILY [facility] Administration Pantoprazole Sodium 40 mg 12/19/19 10:00 12/30/19 09:52 Protonix Iv IVPUSH 40 mg DAILY [facility] Administration ASSESSMENT/PLAN: 64 y/o male PMH HTN, HLD, JUANA (not using CPAP), COPD, GERD, systolic congestive heart failure, paroxysmal atrial fibrillation (on Eliquis, s/p cardioversion 11/2016) who presented with 3 weeks of gradual onset anasarca, scrotal swelling and mild shortness of breath worse on exertion, found to have right lobe PNA, fluid overload, bilateral lower extremity cellulitis and bilateral hydrocele, and respiratory acidosis is admitted for acute hypercapneic respiratory failure and acute CHF exacerbation. #Neuro Pt sedated and vented Propofol 20, versed 5 #CV cont metoprolol Lasix 40 BID #Pulm Acute hypercapneic resp failure 24/450/70%/10 plat 22 #ID Bilateral Lower Extremity Cellulitis Can monitor off abx Cultures NEG #Renal Cr 0.8 UO 3,500 #GI Anasarca- improved Cont diuresis #Heme Thrombocytopenia likely from sepsis Will monitor for now #DVT ppx Eliquis Protonix #TLD LUE A-line 12/20 RIJ 12/18 NG #FEN Hold IVF Monitor electrolytes and replete. Hypokalemia repleted today. Jevity + no h20 #Disposition ICU Full code Visit type - Emergency Visit Emergency Visit: No - New Patient This patient is new to me today: No - Critical Care Critical Care patient: Yes Total Critical Care Time (in minutes): 36 Critical Care Statement: The care of this patient involved high complexity decision making to prevent further life threatening deterioration of the patient's condition and/or to evaluate & treat vital organ system(s) failure or risk of failure. ATTENDING PHYSICIAN STATEMENT I saw and evaluated the patient. I reviewed the resident's note and discussed the case with the resident. I agree with the resident's findings and plan as documented. SUBJECTIVE: OBJECTIVE: ASSESSMENT AND PLAN:
[2019-12-30] MEDS ORDERED: ACETAMINOPHEN 1000 MG/100 ML VIAL (NON FORMULARY) IVPB PRN (18:37)
[2019-12-31] MEDS: HYDROCORTISONE SOD SUCCINATE 100 MG/2 ML VIAL IVPUSH SCH ×3 (01:18→21:11)
[2019-12-31] MEDS: PROPOFOL 1,000,000 MCG/100 ML VIAL IVPB SCH ×3 (01:22→22:00)
[2019-12-31 05:54] LABS: ARTERIAL BLD GAS O2 SATURATION 96.9 mmHg (95-98); ARTERIAL BLOOD GAS BASE EXCESS 9.4 mmol/L (-2-2); ARTERIAL BLOOD GAS PO2 87.2 mmHg (80-100); ARTERIAL BLOOD GAS pH 7.453 (7.350-7.450)
[2019-12-31 06:02] LABS: VENT MODE A/C; VENT RATE 24
[2019-12-31] MEDS: FUROSEMIDE 40 MG/4 ML INJECTABLE VIAL IVPUSH SCH ×2 (06:06→13:44)
[2019-12-31 06:28] LABS: HEMATOCRIT 54.6 % (35.4-49); HEMOGLOBIN 15.7 GM/dL (11.7-16.9); MCH 23.3 pg (25.7-33.7); MCHC 28.8 g/dl (32.0-35.9); MEAN CELL VOLUME 80.8 fl (80-96); MEAN PLT VOLUME 9.9 fl (7.5-11.1); PLATELET COUNT 155 K/MM3 (134-434); RBC 6.75 M/mm3 (4.00-5.60); RDW 23.1 % (11.9-15.9); WHITE BLOOD COUNT 8.7 K/mm3 (4.0-10.0)
[2019-12-31 06:58] LABS: ALBUMIN 2.4 g/dl (3.4-5.0); BILIRUBIN,TOTAL 2.8 mg/dL (0.2-1); BLOOD UREA NITROGEN 75.8 mg/dL (7-18); CALCIUM 9.6 mg/dL (8.5-10.1); CREATININE 0.8 mg/dL (0.55-1.3); MAGNESIUM 2.6 mg/dL (1.8-2.4); PHOSPHOROUS 3.8 mg/dL (2.5-4.9); POTASSIUM 3.7 mmol/L (3.5-5.1); TOT PROT 6.4 g/dl (6.4-8.2)
--- NOTE | 2019-12-31 07:38 | PN ---
Progress Note, Physician Chief Complaint: Pt remains intubated, on ventilator; sedated; unresponsive. History of Present Illness: Mr. Alonso is a 64 year old male with a past medical history of HTN, HLD, JUANA (not using CPAP), likely COPD, GERD, systolic congestive heart failure, paroxysmal atrial fibrillation (on Eliquis, s/p cardioversion 11/2016; on metoprolol for HR control) who presented with 3 weeks of gradual onset anasarca, scrotal swelling and mild shortness of breath worse on exertion. CXR s/f diffused bilat opacities with c/f PNA +/-fluid overload, ?bilateral lower extremity cellulitis and bilateral hydrocele, and respiratory acidosis is admitted for Acute hypercapneic respiratory failure and Acute CHF exacerbation, intubated for progressive hypercarbic respiratory failure, decreased mental status on BiPAP. 12/31/2019 Remains intubated, on ventilator;sedated. - Current Medication List Current Medications: Active Medications Acetaminophen (Ofirmev Injection -) 1,000 mg IVPB Q6H PRN PRN Reason: FEVER Stop: 12/31/19 18:36 Albuterol/Ipratropium (Duoneb -) 1 amp NEB Q4H PRN PRN Reason: SHORTNESS OF BREATH Apixaban (Eliquis -) 5 mg PO BID [facility] Last Admin: 12/30/19 21:11 Dose: 5 mg Documented by: Ascorbic Acid (Vitamin C -) 1,000 mg PO DAILY [facility] Last Admin: 12/30/19 09:53 Dose: 1,000 mg Documented by: Chlorhexidine Gluconate (Peridex -) 15 ml MM BID [facility] Last Admin: 12/30/19 21:12 Dose: 15 ml Documented by: Furosemide (Lasix Injection -) 40 mg IVPUSH BIDLASIX [facility] Last Admin: 12/31/19 06:06 Dose: 40 mg Documented by: Hydrocortisone Sodium Succinate (Solu-Cortef -) 50 mg IVPUSH Q8H-IV [facility] Last Admin: 12/31/19 01:18 Dose: 50 mg Documented by: Propofol (Diprivan -) 1,000,000 mcg in 100 mls @ 3.266 mls/hr IVPB TITR [facility]; Protocol Last Admin: 12/31/19 04:30 Dose: Not Given Documented by: Midazolam HCl (Midazolam 100mg/100ml-0.9%Nacl) 100 mg in 100 mls @ 1 mls/hr IVPB TITR [facility]; Protocol Last Admin: 12/30/19 10:58 Dose: 5 mg/hr, 5 mls/hr Documented by: Vasopressin 40 units/ Sodium (Chloride) 100 mls @ 5 mls/hr IVPB ASDIR [facility]; Protocol Last Admin: 12/30/19 17:32 Dose: Not Given Documented by: Metoprolol Tartrate (Lopressor -) 25 mg PO BID [facility] Last Admin: 12/30/19 22:30 Dose: 25 mg Documented by: Multivitamins/Minerals/Vitamin C (Tab-A-Vit -) 1 tab PO DAILY [facility] Last Admin: 12/30/19 09:53 Dose: 1 tab Documented by: Pantoprazole Sodium (Protonix Iv) 40 mg IVPUSH DAILY [facility] Last Admin: 12/30/19 09:52 Dose: 40 mg Documented by: - Objective Vital Signs: Vital Signs Temperature 98.2 F 12/31/19 06:00 Pulse Rate 95 H 12/31/19 06:00 Respiratory Rate 24 H 12/31/19 06:00 Blood Pressure 124/74 12/31/19 06:00 O2 Sat by Pulse Oximetry (%) 92 L 12/31/19 00:33 Constitutional: Yes: Obese, Other Eyes: Yes: Conjunctiva Clear HENT: Yes: WNL Cardiovascular: Yes: S1 (varies in intensity), S2 Respiratory: Yes: Diminished, Mechanically Ventilated Gastrointestinal: Yes: Soft Genitourinary: Yes: Hilario Present. No: Anuria Extremities: Yes: Cool Edema: No Peripheral Pulses WNL: No Peripheral Pulses: Left Doralis Pedis: 1+, Right Dorsalis Pedis: 1+ Neurological: Yes: Unresponsive, Weakness Psychiatric: Yes: Other Labs: CBC, BMP 12/31/19 05:30 INR, PTT INR 1.34 (0.83-1.09) H 12/16/19 18:40 Abnormal Lab Results 01/01/20 01/01/20 01/01/20 05:25 05:25 08:45 RBC 6.30 H Hct 51.2 H MCH 23.1 L MCHC 28.5 L RDW 23.1 H MPV 11.2 H D ABG pH 7.543 H ABG pCO2 48.50 H ABG pO2 75.0 L ABG HCO3 40.8 H ABG Base Excess 15.9 H Sodium 150 H Potassium 3.4 L Carbon Dioxide > 45 H BUN 74.8 H Random Glucose 222 H Magnesium 2.6 H B-Natriuretic Peptide 338.6 H - ....Imaging Chest X-ray: Image Reviewed EKG: Image Reviewed Assessment/Plan 1. Acute on chronic Hypoxic and Hypercapneic Respiratory Failure, currently in tubated 2. Acute on chronic LV Diastolic Heart Failure with pleural effusion 3. Pneumonia (septic shock) 4. Paroxysmal atrial fibrillation with periods of rapid ventricular response post DCCV, [id number] score of 2 5. Obstructive Sleep Apnea/Obesity Hypoventilation Syndrome with dental appliance 6. HTN/HCVD 7. Hypercholesterolemia 8. CAD angina pectoris 9. Bilateral cellulitis with h/o abscess s/p debridement / scrotal edema improved. 10. Bilateral hydrocele 11. Azotemia PLAN: 1. Vent management titrate FiO2, PEEP to keep SpO2 >90%. COVID not detected. 2. DVT and GI prophylaxis, enteral feeds 3. Diuretics decreased (IV furosemide); good urine output. monitor renal function and electrolytes (currently on Lasix 40 mg QD) 4. Off vasopressors; maintain MAP>65; continue Lopressor 25 mg BID and Eliquis 5 mg BID for PAF (presently in NSR). 5. On antibiotics (no growth on blood cultures). Stress dose steroid: wean with GI protection. CC time spent spent 35 minutes. 1.
[2019-12-31] MEDS: APIXABAN 5 MG TABLET PO SCH ×2 (09:03→21:11)
[2019-12-31] MEDS: PANTOPRAZOLE SODIUM 40 MG VIAL IVPUSH SCH (09:04)
[2019-12-31] MEDS: ASCORBIC ACID 500 MG TABLET (FP) PO SCH (09:04)
[2019-12-31] MEDS: CHLORHEXIDINE GLUCONATE 0.12% 15ML CUP MM SCH ×2 (09:04→21:11)
[2019-12-31] MEDS: METOPROLOL TARTRATE 25 MG TABLET (FP) PO SCH ×2 (09:04→21:11)
[2019-12-31] MEDS: MULTIVITAMINS (DAILY MVI) TABLET (FP) PO SCH (09:05)
--- NOTE | 2019-12-31 12:06 | PN ---
Progress Note (short form) - Note Progress Note: PULM/CCM Patient seen and examined in the ICU. Remains intubated, sedated. Off pressors. Vented on volume assist control with 70% FiO2, PEEP 10. Active Medications Acetaminophen (Ofirmev Injection -) 1,000 mg IVPB Q6H PRN PRN Reason: FEVER Stop: 12/31/19 18:36 Albuterol/Ipratropium (Duoneb -) 1 amp NEB Q4H PRN PRN Reason: SHORTNESS OF BREATH Apixaban (Eliquis -) 5 mg PO BID [facility] Last Admin: 12/31/19 09:03 Dose: 5 mg Documented by: Ascorbic Acid (Vitamin C -) 1,000 mg PO DAILY [facility] Last Admin: 12/31/19 09:04 Dose: 1,000 mg Documented by: Chlorhexidine Gluconate (Peridex -) 15 ml MM BID [facility] Last Admin: 12/31/19 09:04 Dose: 15 ml Documented by: Furosemide (Lasix Injection -) 40 mg IVPUSH BIDLASIX [facility] Last Admin: 12/31/19 06:06 Dose: 40 mg Documented by: Hydrocortisone Sodium Succinate (Solu-Cortef -) 50 mg IVPUSH Q8H-IV [facility] Last Admin: 12/31/19 09:04 Dose: 50 mg Documented by: Propofol (Diprivan -) 1,000,000 mcg in 100 mls @ 3.266 mls/hr IVPB TITR [facility]; Protocol Last Admin: 12/31/19 04:30 Dose: Not Given Documented by: Midazolam HCl (Midazolam 100mg/100ml-0.9%Nacl) 100 mg in 100 mls @ 1 mls/hr IVPB TITR [facility]; Protocol Last Admin: 12/30/19 10:58 Dose: 5 mg/hr, 5 mls/hr Documented by: Vasopressin 40 units/ Sodium (Chloride) 100 mls @ 5 mls/hr IVPB ASDIR [facility]; Protocol Last Admin: 12/30/19 17:32 Dose: Not Given Documented by: Metoprolol Tartrate (Lopressor -) 25 mg PO BID [facility] Last Admin: 12/31/19 09:04 Dose: 25 mg Documented by: Multivitamins/Minerals/Vitamin C (Tab-A-Vit -) 1 tab PO DAILY [facility] Last Admin: 06/27/20 09:05 Dose: 1 tab Documented by: Pantoprazole Sodium (Protonix Iv) 40 mg IVPUSH DAILY [facility] Last Admin: 12/31/19 09:04 Dose: 40 mg Documented by: Vital Signs Period Temp Pulse Resp BP Sys/Clements Pulse Ox Last 24 Hr 98.2 F-100.1 F 75-97 24-24 99-124/59-74 89-92 Intake & Output 12/28/19 12/29/19 12/30/19 12/31/19 23:59 23:59 23:59 23:59 Intake Total 1628 1937 1988.2 422.8 Output Total 3275 3500 4100 400 Balance -1647 -1563 -2111.8 22.8 Weight 112.037 kg 112.037 kg 113.398 kg 107.955 kg Gen: intubated, sedated Heart: tachycardic, regular Lung: scattered rhonchi Abd: soft, +ascites Ext: + edema CBC, BMP 12/31/19 05:30 12/31/19 05:30 Microbiology 12/27/19 21:00 Blood - Peripheral Venous Blood Culture - Preliminary NO GROWTH OBTAINED AFTER 72 HOURS, INCUBATION TO CONTINUE FOR 2 DAYS. 12/27/19 21:00 Blood - Peripheral Venous Blood Culture - Preliminary NO GROWTH OBTAINED AFTER 72 HOURS, INCUBATION TO CONTINUE FOR 2 DAYS. 12/25/19 20:40 Blood - Peripheral Venous Blood Culture - Final NO GROWTH AFTER 5 DAYS INCUBATION 12/25/19 20:30 Blood - Peripheral Venous Blood Culture - Final NO GROWTH AFTER 5 DAYS INCUBATION 12/27/19 14:00 Urine - Urine Hilario Urine Culture - Final NO GROWTH OBTAINED 12/23/19 18:00 Sputum - Endotrachea Suction/Ventilator Gram Stain - Final 12/23/19 18:00 Sputum - Endotrachea Suction/Ventilator Sputum Culture - Final NORMAL RESPIRATORY [place] 12/23/19 17:51 Urine - Urine Hilario Urine Culture - Final NO GROWTH OBTAINED 12/16/19 20:13 Blood - Peripheral Venous Blood Culture - Final NO GROWTH AFTER 5 DAYS INCUBATION 12/16/19 19:50 Blood - Peripheral Venous Blood Culture - Final NO GROWTH AFTER 5 DAYS INCUBATION RECENT STUDIES TO NOTE: CXR 12/30: ETT in good position, L TLC & NGT in good position. Bi-Basilar PNA R > L (My Read). ASSESSMENT AND PLAN: Acute on Chronic Hypoxic and Hypercapneic Respiratory Failure Pneumonia ARDS Septic Shock Acute on Chronic Diastolic Heart Failure Pulmonary HTN Paroxysmal Atrial Fibrillation CAD Acute Kidney Injury Likely COPD JUANA/OHS HTN Hypercholesterolemia - continue antibiotics - off pressors, maintain MAP >65 - taper stress dose steroids - rate control - continue anticoagulation - low tidal volume ventilation - titrate FiO2, PEEP to keep SpO2 >90% - continue lasix - monitor urine output, creatinine - enteral feeds - DVT/GI prophylaxis - Wean trials as FiO2 & PEEP requirements improve - continue ICU monitoring [facility] ICU PULM/CCM [id number]
--- NOTE | 2019-12-31 12:40 | PN ---
Progress Note, Physician History of Present Illness: intubated being diuresed - Current Medication List Current Medications: Active Medications Acetaminophen (Ofirmev Injection -) 1,000 mg IVPB Q6H PRN PRN Reason: FEVER Stop: 12/31/19 18:36 Albuterol/Ipratropium (Duoneb -) 1 amp NEB Q4H PRN PRN Reason: SHORTNESS OF BREATH Apixaban (Eliquis -) 5 mg PO BID [facility] Last Admin: 12/31/19 09:03 Dose: 5 mg Documented by: Ascorbic Acid (Vitamin C -) 1,000 mg PO DAILY [facility] Last Admin: 12/31/19 09:04 Dose: 1,000 mg Documented by: Chlorhexidine Gluconate (Peridex -) 15 ml MM BID [facility] Last Admin: 12/31/19 09:04 Dose: 15 ml Documented by: Furosemide (Lasix Injection -) 40 mg IVPUSH BIDLASIX [facility] Last Admin: 12/31/19 06:06 Dose: 40 mg Documented by: Hydrocortisone Sodium Succinate (Solu-Cortef -) 50 mg IVPUSH BID [facility] Propofol (Diprivan -) 1,000,000 mcg in 100 mls @ 3.266 mls/hr IVPB TITR [facility]; Protocol Last Admin: 12/31/19 04:30 Dose: Not Given Documented by: Midazolam HCl (Midazolam 100mg/100ml-0.9%Nacl) 100 mg in 100 mls @ 1 mls/hr IVPB TITR [facility]; Protocol Last Admin: 12/30/19 10:58 Dose: 5 mg/hr, 5 mls/hr Documented by: Vasopressin 40 units/ Sodium (Chloride) 100 mls @ 5 mls/hr IVPB ASDIR [facility]; Protocol Last Admin: 12/30/19 17:32 Dose: Not Given Documented by: Metoprolol Tartrate (Lopressor -) 25 mg PO BID [facility] Last Admin: 12/31/19 09:04 Dose: 25 mg Documented by: Multivitamins/Minerals/Vitamin C (Tab-A-Vit -) 1 tab PO DAILY [facility] Last Admin: 12/31/19 09:05 Dose: 1 tab Documented by: Pantoprazole Sodium (Protonix Iv) 40 mg IVPUSH DAILY [facility] Last Admin: 12/31/19 09:04 Dose: 40 mg Documented by: - Objective Vital Signs: Vital Signs Temperature 98.4 F 06/27/20 10:45 Pulse Rate 78 12/31/19 10:45 Respiratory Rate 30 H 12/31/19 12:25 Blood Pressure 100/59 L 12/31/19 10:45 O2 Sat by Pulse Oximetry (%) 90 L 12/31/19 09:00 Constitutional: Yes: Other Cardiovascular: Yes: S1, S2 Respiratory: Yes: Intubated, Mechanically Ventilated Gastrointestinal: Yes: Normal Bowel Sounds, Soft, Other (ng in place) Musculoskeletal: Yes: Other Extremities: Yes: WNL Edema: LLE: 1+, RLE: 1+ Labs: CBC, BMP 12/31/19 05:30 12/31/19 05:30 INR, PTT INR 1.34 (0.83-1.09) H 12/16/19 18:40 - ....Imaging Chest X-ray: Report Reviewed, Image Reviewed Assessment/Plan 64 year old male with a past medical history of HTN, HLD, JUANA (not using CPAP), COPD, GERD, systolic congestive heart failure, paroxysmal atrial fibrillation (on Eliquis, s/p cardioversion 11/2016) who presented with 3 weeks of gradual onset anasarca, scrotal swelling and mild shortness of breath worse on exertion. He as found to have a PNA, on clinical exam signs of fluid overload, ?bilateral lower extremity cellulitis and bilateral hydrocele. 1. Acute Respiratory Failure 2. Fluid Overload/ 3.Bilateral Lower Extremity Cellulitis 4. Hydrocele 5. Hypertension 6. Atrial Fibrillation 7. Elevated Troponin 8. Rule Out COVID 9 pna plan diuresis continue abx monitor fevers icu mgmt vent mgmt res as per icu vanco levels noted aspiration precautions cc 38 min
--- NOTE | 2019-12-31 17:25 | PN ---
Progress Note, Physician History of Present Illness: Pt seen and examined at bedside. He remains in the ICU. He remains intubated. - Current Medication List Current Medications: Active Medications Acetaminophen (Ofirmev Injection -) 1,000 mg IVPB Q6H PRN PRN Reason: FEVER Stop: 12/31/19 18:36 Albuterol/Ipratropium (Duoneb -) 1 amp NEB Q4H PRN PRN Reason: SHORTNESS OF BREATH Apixaban (Eliquis -) 5 mg PO BID [facility] Last Admin: 12/31/19 09:03 Dose: 5 mg Documented by: Ascorbic Acid (Vitamin C -) 1,000 mg PO DAILY [facility] Last Admin: 12/31/19 09:04 Dose: 1,000 mg Documented by: Chlorhexidine Gluconate (Peridex -) 15 ml MM BID [facility] Last Admin: 12/31/19 09:04 Dose: 15 ml Documented by: Furosemide (Lasix Injection -) 40 mg IVPUSH BIDLASIX [facility] Last Admin: 12/31/19 13:44 Dose: 40 mg Documented by: Hydrocortisone Sodium Succinate (Solu-Cortef -) 50 mg IVPUSH BID [facility] Propofol (Diprivan -) 1,000,000 mcg in 100 mls @ 3.266 mls/hr IVPB TITR [facility]; Protocol Last Admin: 12/31/19 04:30 Dose: Not Given Documented by: Midazolam HCl (Midazolam 100mg/100ml-0.9%Nacl) 100 mg in 100 mls @ 1 mls/hr IVPB TITR [facility]; Protocol Last Admin: 12/30/19 10:58 Dose: 5 mg/hr, 5 mls/hr Documented by: Vasopressin 40 units/ Sodium (Chloride) 100 mls @ 5 mls/hr IVPB ASDIR [facility]; Protocol Last Admin: 12/30/19 17:32 Dose: Not Given Documented by: Metoprolol Tartrate (Lopressor -) 25 mg PO BID [facility] Last Admin: 12/31/19 09:04 Dose: 25 mg Documented by: Multivitamins/Minerals/Vitamin C (Tab-A-Vit -) 1 tab PO DAILY [facility] Last Admin: 12/31/19 09:05 Dose: 1 tab Documented by: Pantoprazole Sodium (Protonix Iv) 40 mg IVPUSH DAILY [facility] Last Admin: 12/31/19 09:04 Dose: 40 mg Documented by: - Objective Vital Signs: Vital Signs Temperature 98.6 F 12/31/19 14:00 Pulse Rate 89 12/31/19 14:00 Respiratory Rate 24 H 12/31/19 16:39 Blood Pressure 104/65 12/31/19 14:00 O2 Sat by Pulse Oximetry (%) 90 L 12/31/19 09:00 Constitutional: Yes: Calm Eyes: Yes: Conjunctiva Clear HENT: Yes: Atraumatic Cardiovascular: Yes: S1, S2 Respiratory: Yes: Mechanically Ventilated Gastrointestinal: Yes: Soft, Abdomen, Obese Genitourinary: Yes: Hilario Present Musculoskeletal: Yes: Muscle Weakness Edema: Yes Edema: LLE: 1+, RLE: 1+ Integumentary: Yes: Venous Stasis Changes Neurological: Yes: Lethargy Labs: CBC, BMP 12/31/19 05:30 12/31/19 05:30 INR, PTT INR 1.34 (0.83-1.09) H 12/16/19 18:40 Problem List - Problems (1) Anasarca Code(s): R60.1 - GENERALIZED EDEMA (2) Congestive heart failure (CHF) Code(s): I50.9 - HEART FAILURE, UNSPECIFIED Qualifiers: Heart failure type: diastolic Heart failure chronicity: acute on chronic Qualified Code(s): I50.33 - Acute on chronic diastolic (congestive) heart failure (3) Acute kidney injury Code(s): N17.9 - ACUTE KIDNEY FAILURE, UNSPECIFIED Assessment/Plan Current Medications Generic Name Dose Route Start Last Admin Trade Name Freq PRN Reason Stop Dose Admin Acetaminophen 1,000 mg 12/30/19 18:37 Ofirmev Injection - IVPB 12/31/19 18:36 Q6H PRN FEVER Albuterol/Ipratropium 1 amp 12/26/19 11:46 Duoneb - NEB Q4H PRN SHORTNESS OF BREATH Apixaban 5 mg 12/16/19 22:00 12/31/19 09:03 Eliquis - PO 5 mg BID [facility] Administration Ascorbic Acid 1,000 mg 12/17/19 10:00 12/31/19 09:04 Vitamin C - PO 1,000 mg DAILY [facility] Administration Chlorhexidine Gluconate 15 ml 12/22/19 12:30 12/31/19 09:04 Peridex - MM 15 ml BID [facility] Administration Furosemide 40 mg 12/30/19 14:45 12/31/19 13:44 Lasix Injection - IVPUSH 40 mg BIDLASIX [facility] Administration Hydrocortisone Sodium Succinate 50 mg 12/31/19 22:00 Solu-Cortef - IVPUSH BID [facility] Propofol 1,000,000 mcg in 100 mls @ 3.266 mls/hr 12/17/19 04:30 12/31/19 04:30 Diprivan - IVPB Not Given TITR [facility] Protocol 5 MCG/KG/MIN Midazolam HCl 100 mg in 100 mls @ 1 mls/hr 12/22/19 08:00 12/30/19 10:58 Midazolam 100mg/100ml-0.9%Nacl IVPB 5 mg/hr TITR [facility] 5 mls/hr Administration Protocol 1 MG/HR Vasopressin 40 units/ Sodium 100 mls @ 5 mls/hr 12/28/19 16:30 12/30/19 17:32 Chloride IVPB Not Given ASDIR [facility] Protocol 2 UNITS/HR Metoprolol Tartrate 25 mg 12/19/19 12:00 12/31/19 09:04 Lopressor - PO 25 mg BID [facility] Administration Multivitamins/Minerals/Vitamin C 1 tab 12/17/19 10:00 12/31/19 09:05 Tab-A-Vit - PO 1 tab DAILY [facility] Administration Pantoprazole Sodium 40 mg 12/19/19 10:00 12/31/19 09:04 Protonix Iv IVPUSH 40 mg DAILY [facility] Administration Impression 1. MONIE 2. CHF acute 3. acute resp failure requiring intubation 4. atrial fibrillation 5. hx of htn 6. obesity 7. chronic smoker 8. hypokalemia Plan - cont pressors to map 65 - pt on lasix, monitor lytes - monitor bicarb - repeat labs in am - if increased alkalosis, will consider diamox - cont ICU care - cardio input appreciated - discussed with ICU team - hold areli and bp meds - monitor volume status
[2020-01-01] MEDS ORDERED: MIDAZOLAM IN 0.9 % SOD.CHLORID 1 MG/1 ML PLAST..BAG ONE (01:37)
[2020-01-01] MEDS: PROPOFOL 1,000,000 MCG/100 ML VIAL IVPB SCH ×2 (04:00→21:10)
[2020-01-01] MEDS: FUROSEMIDE 40 MG/4 ML INJECTABLE VIAL IVPUSH SCH ×2 (05:48→06:39)
[2020-01-01 06:55] LABS: HEMATOCRIT 51.2 % (35.4-49); HEMOGLOBIN 14.6 GM/dL (11.7-16.9); MCH 23.1 pg (25.7-33.7); MCHC 28.5 g/dl (32.0-35.9); MEAN CELL VOLUME 81.2 fl (80-96); MEAN PLT VOLUME 11.2 fl (7.5-11.1); PLATELET COUNT 185 K/MM3 (134-434); RDW 23.1 % (11.9-15.9); WHITE BLOOD COUNT 8.1 K/mm3 (4.0-10.0)
[2020-01-01 07:04] LABS: BLOOD UREA NITROGEN 74.8 mg/dL (7-18); CALCIUM 9.1 mg/dL (8.5-10.1); CHLORIDE 101 mmol/L (98-107); CREATININE 0.9 mg/dL (0.55-1.3); GLUCOSE,RANDOM 222 mg/dL (74-106); MAGNESIUM 2.6 mg/dL (1.8-2.4); N-TERMINAL BNP 338.6 pg/ml (5-125); PHOSPHOROUS 3.1 mg/dL (2.5-4.9); POTASSIUM 3.4 mmol/L (3.5-5.1); SODIUM 150 mmol/L (136-145)
[2020-01-01 07:42] LABS: CO2 > 45 mmol/L (21-32)
[2020-01-01] MEDS ORDERED: KCL 10 MEQ IVPB 10 MEQ/100 ML INFUS.BAG IVPB SCH (08:45)
[2020-01-01 08:54] LABS: ARTERIAL BLD GAS O2 SATURATION 96.3 mmHg (95-98); ARTERIAL BLOOD GAS BASE EXCESS 15.9 mmol/L (-2-2); ARTERIAL BLOOD GAS pH 7.543 (7.350-7.450)
[2020-01-01 08:57] LABS: ALLENS TEST NEGATIVE
[2020-01-01 08:58] LABS: VENT MODE A/C; VENT RATE 24
[2020-01-01] MEDS: ASCORBIC ACID 500 MG TABLET (FP) PO SCH (09:17)
[2020-01-01] MEDS: HYDROCORTISONE SOD SUCCINATE 100 MG/2 ML VIAL IVPUSH SCH ×2 (09:17→21:13)
[2020-01-01] MEDS: MULTIVITAMINS (DAILY MVI) TABLET (FP) PO SCH (09:17)
[2020-01-01] MEDS: APIXABAN 5 MG TABLET PO SCH ×2 (09:17→21:12)
[2020-01-01] MEDS: METOPROLOL TARTRATE 25 MG TABLET (FP) PO SCH ×2 (09:17→21:13)
[2020-01-01] MEDS: PANTOPRAZOLE SODIUM 40 MG VIAL IVPUSH SCH (09:18)
[2020-01-01] MEDS: CHLORHEXIDINE GLUCONATE 0.12% 15ML CUP MM SCH ×2 (09:41→21:12)
--- NOTE | 2020-01-01 10:10 | PN ---
Progress Note (short form) - Note Progress Note: PULM/CCM Patient seen and examined in the ICU. Remains intubated, sedated. Vented on volume assist control with 70% FiO2, PEEP 10. ABG Results ABG pH 7.543 (7.350-7.450) H 01/01/20 08:45 ABG pCO2 at Pt Temp 54.6 mmHg (35-45) H 12/20/19 06:00 ABG pO2 at Pt Temp 88.3 mmHg (80-100) 12/20/19 06:00 ABG HCO3 40.8 mmol/L (22-27) H 01/01/20 08:45 ABG O2 Sat (Measured) 96.3 mmHg (95-98) 01/01/20 08:45 ABG O2 Content No Result Required. 01/01/20 08:45 ABG Base Excess 15.9 mmol/L (-2-2) H 01/01/20 08:45 Vital Signs Period Temp Pulse Resp BP Sys/Clements Pulse Ox Last 24 Hr 98.3 F-99.2 F 78-99 24-30 95-112/59-86 89-96 Gen: intubated, sedated Heart: RRR Lung: scattered rhonchi Abd: soft, +ascites Ext: + edema CBC, BMP 01/01/20 05:25 01/01/20 05:25 Intake & Output 12/29/19 12/30/19 12/31/19 01/01/20 23:59 23:59 23:59 23:59 Intake Total 1937 1988.2 1385.6 422.8 Output Total 3500 4100 2900 600 Balance -1563 -2111.8 -1514.4 -177.2 Weight 112.037 kg 113.398 kg 107.955 kg 107.048 kg Microbiology 12/27/19 21:00 Blood - Peripheral Venous Blood Culture - Preliminary NO GROWTH OBTAINED AFTER 96 HOURS, INCUBATION TO CONTINUE FOR 1 DAYS. 12/27/19 21:00 Blood - Peripheral Venous Blood Culture - Preliminary NO GROWTH OBTAINED AFTER 96 HOURS, INCUBATION TO CONTINUE FOR 1 DAYS. 12/25/19 20:40 Blood - Peripheral Venous Blood Culture - Final NO GROWTH AFTER 5 DAYS INCUBATION 12/25/19 20:30 Blood - Peripheral Venous Blood Culture - Final NO GROWTH AFTER 5 DAYS INCUBATION 12/27/19 14:00 Urine - Urine Hilario Urine Culture - Final NO GROWTH OBTAINED 12/23/19 18:00 Sputum - Endotrachea Suction/Ventilator Gram Stain - Final 12/23/19 18:00 Sputum - Endotrachea Suction/Ventilator Sputum Culture - Final NORMAL RESPIRATORY [place] 12/23/19 17:51 Urine - Urine Hilario Urine Culture - Final NO GROWTH OBTAINED 12/16/19 20:13 Blood - Peripheral Venous Blood Culture - Final NO GROWTH AFTER 5 DAYS INCUBATION 12/16/19 19:50 Blood - Peripheral Venous Blood Culture - Final NO GROWTH AFTER 5 DAYS INCUBATION Active Medications Acetazolamide Sodium (Diamox Injection -) 500 mg IVPUSH DAILY [facility] Albuterol/Ipratropium (Duoneb -) 1 amp NEB Q4H PRN PRN Reason: SHORTNESS OF BREATH Apixaban (Eliquis -) 5 mg PO BID [facility] Last Admin: 01/01/20 09:17 Dose: 5 mg Documented by: Ascorbic Acid (Vitamin C -) 1,000 mg PO DAILY [facility] Last Admin: 01/01/20 09:17 Dose: 1,000 mg Documented by: Chlorhexidine Gluconate (Peridex -) 15 ml MM BID [facility] Last Admin: 01/01/20 09:41 Dose: 15 ml Documented by: Hydrocortisone Sodium Succinate (Solu-Cortef -) 50 mg IVPUSH BID [facility] Last Admin: 01/01/20 09:17 Dose: 50 mg Documented by: Propofol (Diprivan -) 1,000,000 mcg in 100 mls @ 3.266 mls/hr IVPB TITR [facility]; Protocol Last Admin: 01/01/20 04:00 Dose: 20 mcg/kg/min, 13.063 mls/hr Documented by: Midazolam HCl (Midazolam 100mg/100ml-0.9%Nacl) 100 mg in 100 mls @ 1 mls/hr IVPB TITR [facility]; Protocol Last Admin: 12/30/19 10:58 Dose: 5 mg/hr, 5 mls/hr Documented by: Vasopressin 40 units/ Sodium (Chloride) 100 mls @ 5 mls/hr IVPB ASDIR [facility]; Protocol Last Admin: 12/30/19 17:32 Dose: Not Given Documented by: Metoprolol Tartrate (Lopressor -) 25 mg PO BID [facility] Last Admin: 01/01/20 09:17 Dose: 25 mg Documented by: Multivitamins/Minerals/Vitamin C (Tab-A-Vit -) 1 tab PO DAILY [facility] Last Admin: 01/01/20 09:17 Dose: 1 tab Documented by: Pantoprazole Sodium (Protonix Iv) 40 mg IVPUSH DAILY [facility] Last Admin: 01/01/20 09:18 Dose: 40 mg Documented by: ASSESSMENT AND PLAN: Acute on Chronic Hypoxic and Hypercapneic Respiratory Failure Pneumonia ARDS Septic Shock Acute on Chronic Diastolic Heart Failure Pulmonary HTN Paroxysmal Atrial Fibrillation CAD Acute Kidney Injury Likely COPD JUANA/OHS HTN Hypercholesterolemia - completed antibiotics - maintain MAP >65 - taper stress dose steroids - rate control - continue anticoagulation (Apixaban) - low tidal volume ventilation - titrate FiO2, PEEP to keep SpO2 >90% - Switched to Diamox from Lasix due to alkalosis - Strict I/O, trend and replete electrolytes keep Mg>2, k>4 - enteral feeds - Pantoprazole for PUD ppx - DVT ppx, patient on Apixaban - Wean trials as FiO2 & PEEP requirements improve - continue ICU monitoring [facility] ICU PULM/CCM [id number]
[2020-01-01] MEDS ORDERED: PT OWN MED DRAWER 7, Y5N ONE (10:32)
--- NOTE | 2020-01-01 12:33 | PN ---
Progress Note, Physician History of Present Illness: Pt seen and examined at bedside. He remains in the ICU. He remains intubated. - Current Medication List Current Medications: Active Medications Albuterol/Ipratropium (Duoneb -) 1 amp NEB Q4H PRN PRN Reason: SHORTNESS OF BREATH Apixaban (Eliquis -) 5 mg PO BID [facility] Last Admin: 01/01/20 09:17 Dose: 5 mg Documented by: Ascorbic Acid (Vitamin C -) 1,000 mg PO DAILY [facility] Last Admin: 01/01/20 09:17 Dose: 1,000 mg Documented by: Chlorhexidine Gluconate (Peridex -) 15 ml MM BID [facility] Last Admin: 01/01/20 09:41 Dose: 15 ml Documented by: Hydrocortisone Sodium Succinate (Solu-Cortef -) 50 mg IVPUSH BID [facility] Last Admin: 01/01/20 09:17 Dose: 50 mg Documented by: Propofol (Diprivan -) 1,000,000 mcg in 100 mls @ 3.266 mls/hr IVPB TITR [facility]; Protocol Last Admin: 01/01/20 04:00 Dose: 20 mcg/kg/min, 13.063 mls/hr Documented by: Midazolam HCl (Midazolam 100mg/100ml-0.9%Nacl) 100 mg in 100 mls @ 1 mls/hr IVPB TITR [facility]; Protocol Last Admin: 12/30/19 10:58 Dose: 5 mg/hr, 5 mls/hr Documented by: Metoprolol Tartrate (Lopressor -) 25 mg PO BID [facility] Last Admin: 01/01/20 09:17 Dose: 25 mg Documented by: Multivitamins/Minerals/Vitamin C (Tab-A-Vit -) 1 tab PO DAILY [facility] Last Admin: 01/01/20 09:17 Dose: 1 tab Documented by: Pantoprazole Sodium (Protonix Iv) 40 mg IVPUSH DAILY [facility] Last Admin: 01/01/20 09:18 Dose: 40 mg Documented by: - Objective Vital Signs: Vital Signs Temperature 99.4 F 01/01/20 08:00 Pulse Rate 78 01/01/20 12:20 Respiratory Rate 24 H 01/01/20 12:20 Blood Pressure 103/59 L 01/01/20 12:20 O2 Sat by Pulse Oximetry (%) 95 01/01/20 09:00 Constitutional: Yes: Calm Eyes: Yes: Conjunctiva Clear HENT: Yes: Atraumatic Cardiovascular: Yes: S1, S2 Respiratory: Yes: CTA Bilaterally Gastrointestinal: Yes: Soft Genitourinary: Yes: Hilario Present Musculoskeletal: Yes: Muscle Weakness Edema: No Integumentary: Yes: Venous Stasis Changes Neurological: Yes: Lethargy Labs: CBC, BMP 01/01/20 05:25 01/01/20 05:25 INR, PTT INR 1.34 (0.83-1.09) H 12/16/19 18:40 Problem List - Problems (1) Anasarca Code(s): R60.1 - GENERALIZED EDEMA (2) Congestive heart failure (CHF) Code(s): I50.9 - HEART FAILURE, UNSPECIFIED Qualifiers: Heart failure type: diastolic Heart failure chronicity: acute on chronic Qualified Code(s): I50.33 - Acute on chronic diastolic (congestive) heart failure (3) Acute kidney injury Code(s): N17.9 - ACUTE KIDNEY FAILURE, UNSPECIFIED Assessment/Plan Current Medications Generic Name Dose Route Start Last Admin Trade Name Freq PRN Reason Stop Dose Admin Albuterol/Ipratropium 1 amp 12/26/19 11:46 Duoneb - NEB Q4H PRN SHORTNESS OF BREATH Apixaban 5 mg 12/16/19 22:00 01/01/20 09:17 Eliquis - PO 5 mg BID [facility] Administration Ascorbic Acid 1,000 mg 12/17/19 10:00 01/01/20 09:17 Vitamin C - PO 1,000 mg DAILY [facility]TE Administration Chlorhexidine Gluconate 15 ml 12/22/19 12:30 01/01/20 09:41 Peridex - MM 15 ml BID [facility]TE Administration Hydrocortisone Sodium Succinate 50 mg 12/31/19 22:00 01/01/20 09:17 Solu-Cortef - IVPUSH 50 mg BID [facility]NETTE Administration Propofol 1,000,000 mcg in 100 mls @ 3.266 mls/hr 12/17/19 04:30 01/01/20 04:00 Diprivan - IVPB 20 mcg/kg/min TITR L[facility]NETTE 13.063 mls/hr Administration Protocol 5 MCG/KG/MIN Midazolam HCl 100 mg in 100 mls @ 1 mls/hr 12/22/19 08:00 12/30/19 10:58 Midazolam 100mg/100ml-0.9%Nacl IVPB 5 mg/hr TITR [facility]NETTE 5 mls/hr Administration Protocol 1 MG/HR Metoprolol Tartrate 25 mg 12/19/19 12:00 01/01/20 09:17 Lopressor - PO 25 mg BID [facility]TE Administration Multivitamins/Minerals/Vitamin C 1 tab 12/17/19 10:00 01/01/20 09:17 Tab-A-Vit - PO 1 tab DAILY [facility] Administration Pantoprazole Sodium 40 mg 12/19/19 10:00 01/01/20 09:18 Protonix Iv IVPUSH 40 mg DAILY [facility] Administration Impression 1. MONIE 2. CHF acute 3. acute resp failure requiring intubation 4. atrial fibrillation 5. hx of htn 6. obesity 7. chronic smoker 8. hypokalemia Plan - maintain map of 65 - d/c lasix - give dose of diamox - repeat labs in am - abg reviewed with icu team - daily cxr - volume status improving, pt net negative - cont ICU care - cardio input appreciated - discussed with ICU team - hold areli and bp meds - replace potassium - renal function stable
--- NOTE | 2020-01-01 14:01 | PN ---
Progress Note, Physician History of Present Illness: patient still with intubation no new issues - Current Medication List Current Medications: Active Medications Albuterol/Ipratropium (Duoneb -) 1 amp NEB Q4H PRN PRN Reason: SHORTNESS OF BREATH Apixaban (Eliquis -) 5 mg PO BID [facility] Last Admin: 01/01/20 09:17 Dose: 5 mg Documented by: Ascorbic Acid (Vitamin C -) 1,000 mg PO DAILY [facility] Last Admin: 01/01/20 09:17 Dose: 1,000 mg Documented by: Chlorhexidine Gluconate (Peridex -) 15 ml MM BID [facility] Last Admin: 01/01/20 09:41 Dose: 15 ml Documented by: Hydrocortisone Sodium Succinate (Solu-Cortef -) 50 mg IVPUSH BID [facility] Last Admin: 01/01/20 09:17 Dose: 50 mg Documented by: Propofol (Diprivan -) 1,000,000 mcg in 100 mls @ 3.266 mls/hr IVPB TITR [facility]; Protocol Last Admin: 01/01/20 04:00 Dose: 20 mcg/kg/min, 13.063 mls/hr Documented by: Midazolam HCl (Midazolam 100mg/100ml-0.9%Nacl) 100 mg in 100 mls @ 1 mls/hr IVPB TITR [facility]; Protocol Last Admin: 12/30/19 10:58 Dose: 5 mg/hr, 5 mls/hr Documented by: Metoprolol Tartrate (Lopressor -) 25 mg PO BID [facility] Last Admin: 01/01/20 09:17 Dose: 25 mg Documented by: Multivitamins/Minerals/Vitamin C (Tab-A-Vit -) 1 tab PO DAILY [facility] Last Admin: 01/01/20 09:17 Dose: 1 tab Documented by: Pantoprazole Sodium (Protonix Iv) 40 mg IVPUSH DAILY [facility] Last Admin: 01/01/20 09:18 Dose: 40 mg Documented by: - Objective Vital Signs: Vital Signs Temperature 99 F 01/01/20 12:00 Pulse Rate 78 01/01/20 12:20 Respiratory Rate 24 H 01/01/20 12:20 Blood Pressure 103/59 L 01/01/20 12:20 O2 Sat by Pulse Oximetry (%) 95 01/01/20 09:00 Constitutional: Yes: No Distress, Calm Cardiovascular: Yes: S1, S2 Respiratory: Yes: Intubated, Mechanically Ventilated Gastrointestinal: Yes: Normal Bowel Sounds, Soft Musculoskeletal: Yes: WNL Extremities: Yes: WNL Labs: CBC, BMP 01/01/20 05:25 01/01/20 05:25 INR, PTT INR 1.34 (0.83-1.09) H 12/16/19 18:40 Assessment/Plan 64 year old male with a past medical history of HTN, HLD, JUANA (not using CPAP), COPD, GERD, systolic congestive heart failure, paroxysmal atrial fibrillation (on Eliquis, s/p cardioversion 11/2016) who presented with 3 weeks of gradual onset anasarca, scrotal swelling and mild shortness of breath worse on exertion. He as found to have a PNA, on clinical exam signs of fluid overload, ?bilateral lower extremity cellulitis and bilateral hydrocele. 1. Acute Respiratory Failure 2. Fluid Overload/ 3.Bilateral Lower Extremity Cellulitis 4. Hydrocele 5. Hypertension 6. Atrial Fibrillation 7. Elevated Troponin 8. Rule Out COVID 9 pna plan cx reports noted monitor fevers icu mgmt vent mgmt res as per icu cc 38 min
[2020-01-02] MEDS: MIDAZOLAM IN 0.9 % SOD.CHLORID 100 MG/100 ML PLAST..BAG IVPB SCH
--- NOTE | 2020-01-02 02:16 | PN ---
Progress Note, Physician Chief Complaint: Pt remains intubated, on ventilator; sedated; unresponsive. History of Present Illness: Mr. Alonso is a 64 year old male with a past medical history of HTN, HLD, JUANA (not using CPAP), likely COPD, GERD, systolic congestive heart failure, paroxysmal atrial fibrillation (on Eliquis, s/p cardioversion 11/2016; on metoprolol for HR control) who presented with 3 weeks of gradual onset anasarca, scrotal swelling and mild shortness of breath worse on exertion. CXR s/f diffused bilat opacities with c/f PNA +/-fluid overload, ?bilateral lower extremity cellulitis and bilateral hydrocele, and respiratory acidosis is admitted for Acute hypercapneic respiratory failure and Acute CHF exacerbation, intubated for progressive hypercarbic respiratory failure, decreased mental status on BiPAP. 12/31/2019 Remains intubated, on ventilator;sedated. - Current Medication List Current Medications: Active Medications Albuterol/Ipratropium (Duoneb -) 1 amp NEB Q4H PRN PRN Reason: SHORTNESS OF BREATH Apixaban (Eliquis -) 5 mg PO BID [facility] Last Admin: 01/01/20 21:12 Dose: 5 mg Documented by: Ascorbic Acid (Vitamin C -) 1,000 mg PO DAILY [facility] Last Admin: 01/01/20 09:17 Dose: 1,000 mg Documented by: Chlorhexidine Gluconate (Peridex -) 15 ml MM BID [facility] Last Admin: 01/01/20 21:12 Dose: 15 ml Documented by: Hydrocortisone Sodium Succinate (Solu-Cortef -) 50 mg IVPUSH BID [facility] Last Admin: 01/01/20 21:13 Dose: 50 mg Documented by: Propofol (Diprivan -) 1,000,000 mcg in 100 mls @ 3.266 mls/hr IVPB TITR [facility]; Protocol Last Admin: 01/01/20 21:10 Dose: 20 mcg/kg/min, 13.063 mls/hr Documented by: Midazolam HCl (Midazolam 100mg/100ml-0.9%Nacl) 100 mg in 100 mls @ 1 mls/hr IVPB TITR [facility]; Protocol Last Admin: 12/30/19 10:58 Dose: 5 mg/hr, 5 mls/hr Documented by: Metoprolol Tartrate (Lopressor -) 25 mg PO BID [facility] Last Admin: 01/01/20 21:13 Dose: 25 mg Documented by: Multivitamins/Minerals/Vitamin C (Tab-A-Vit -) 1 tab PO DAILY [facility] Last Admin: 01/01/20 09:17 Dose: 1 tab Documented by: Pantoprazole Sodium (Protonix Iv) 40 mg IVPUSH DAILY [facility] Last Admin: 01/01/20 09:18 Dose: 40 mg Documented by: - Objective Vital Signs: Vital Signs Temperature 99.8 F H 01/02/20 02:00 Pulse Rate 78 01/02/20 02:00 Respiratory Rate 24 H 01/02/20 02:00 Blood Pressure 100/60 01/02/20 02:00 O2 Sat by Pulse Oximetry (%) 96 01/02/20 00:42 Constitutional: Yes: Obese, Other Eyes: Yes: WNL HENT: Yes: Other Neck: Yes: Decreased ROM Cardiovascular: Yes: S1, S2 Respiratory: Yes: Diminished, Mechanically Ventilated Gastrointestinal: Yes: Soft Genitourinary: Yes: Hilario Present. No: Anuria Musculoskeletal: Yes: Muscle Weakness Extremities: Yes: Cool Edema: No Peripheral Pulses WNL: No Peripheral Pulses: Left Doralis Pedis: 1+, Right Dorsalis Pedis: 1+ Integumentary: Yes: Other Neurological: Yes: Unresponsive Labs: CBC, BMP 01/01/20 05:25 01/01/20 05:25 INR, PTT INR 1.34 (0.83-1.09) H 12/16/19 18:40 Abnormal Lab Results 01/01/20 01/01/20 01/01/20 05:25 05:25 08:45 RBC 6.30 H Hct 51.2 H MCH 23.1 L MCHC 28.5 L RDW 23.1 H MPV 11.2 H D ABG pH 7.543 H ABG pCO2 48.50 H ABG pO2 75.0 L ABG HCO3 40.8 H ABG Base Excess 15.9 H Sodium 150 H Potassium 3.4 L Carbon Dioxide > 45 H BUN 74.8 H Random Glucose 222 H Magnesium 2.6 H B-Natriuretic Peptide 338.6 H - ....Imaging Chest X-ray: Image Reviewed EKG: Image Reviewed Assessment/Plan 1. Acute on chronic Hypoxic and Hypercapneic Respiratory Failure, currently intubated 2. Acute on chronic LV Diastolic Heart Failure with pleural effusion 3. Pneumonia (septic shock) 4. Paroxysmal atrial fibrillation with periods of rapid ventricular response post DCCV, [id number] score of 2 5. Obstructive Sleep Apnea/Obesity Hypoventilation Syndrome with dental appliance 6. HTN/HCVD 7. Hypercholesterolemia 8. CAD angina pectoris 9. Bilateral cellulitis with h/o abscess s/p debridement / scrotal edema improved. 10. Bilateral hydrocele 11. Azotemia 12. hypokalemia PLAN: 1. Vent management titrate FiO2, PEEP to keep SpO2 >90%. COVID not detected. 2. DVT and GI prophylaxis, enteral feeds 3. Diuretics: now off furosemide and for acetazolamide; monitor renal function and electrolytes (changed due to alkalosis). 4. Off vasopressors; maintain MAP>65; continue Lopressor 25 mg BID and Eliquis 5 mg BID for PAF (presently in NSR). 5. Completed antibiotics (no growth on blood cultures). Stress dose steroid: wean with GI protection. 6. Replete K+, and keep 4.0-4.5; keep Mg 2.0-2.4, and PO4 2.5-4.9. 6. f/u lipid profile CC time spent spent 35 minutes. 1.
[2020-01-02 05:55] LABS: ARTERIAL BLOOD GAS BASE EXCESS 14.1 mmol/L (-2-2); ARTERIAL BLOOD GAS PO2 85.3 mmHg (80-100); ARTERIAL BLOOD GAS pH 7.504 (7.350-7.450)
[2020-01-02 06:09] LABS: ALLENS TEST POSITIVE; VENT MODE A/C; VENT RATE 24
[2020-01-02 06:56] LABS: BASO % 0.6 % (0-2.0); EOS % 0.5 % (0-4.5); HEMATOCRIT 51.8 % (35.4-49); HEMOGLOBIN 14.7 GM/dL (11.7-16.9); LYMPH % 9.4 % (8-40); MCH 23.3 pg (25.7-33.7); MCHC 28.4 g/dl (32.0-35.9); MEAN CELL VOLUME 82.2 fl (80-96); MEAN PLT VOLUME 11.3 fl (7.5-11.1); MONO % 8.3 % (3.8-10.2); NEUT % 81.2 % (42.8-82.8); RBC 6.31 M/mm3 (4.00-5.60); RDW 24.1 % (11.9-15.9); WHITE BLOOD COUNT 9.1 K/mm3 (4.0-10.0)
[2020-01-02 07:34] LABS: ALBUMIN 2.3 g/dl (3.4-5.0); BILIRUBIN,TOTAL 3.2 mg/dL (0.2-1); BLOOD UREA NITROGEN 70.6 mg/dL (7-18); CALCIUM 9.2 mg/dL (8.5-10.1); CREATININE 0.9 mg/dL (0.55-1.3); MAGNESIUM 2.8 mg/dL (1.8-2.4); POTASSIUM 3.1 mmol/L (3.5-5.1); TOT PROT 5.8 g/dl (6.4-8.2)
[2020-01-02] MEDS: ASCORBIC ACID 500 MG TABLET (FP) PO SCH (09:03)
[2020-01-02] MEDS: KCL 10 MEQ IVPB 10 MEQ/100 ML INFUS.BAG IVPB SCH ×3 (09:03→11:50)
[2020-01-02] MEDS: PANTOPRAZOLE SODIUM 40 MG VIAL IVPUSH SCH (09:04)
[2020-01-02] MEDS: HYDROCORTISONE SOD SUCCINATE 100 MG/2 ML VIAL IVPUSH SCH ×2 (09:04→21:26)
[2020-01-02] MEDS: METOPROLOL TARTRATE 25 MG TABLET (FP) PO SCH ×2 (09:04→21:27)
[2020-01-02] MEDS: APIXABAN 5 MG TABLET PO SCH ×2 (09:04→21:27)
[2020-01-02] MEDS: CHLORHEXIDINE GLUCONATE 0.12% 15ML CUP MM SCH ×2 (09:05→21:26)
[2020-01-02] MEDS: MULTIVITAMINS (DAILY MVI) TABLET (FP) PO SCH (09:05)
[2020-01-02 09:48] LABS: ANISOCYTOSIS 1+; MACROCYTOSIS 0; OVALOCYTE 1+; PLATELET ESTIMATE NORMAL; TEAR DROP CELLS 1+
[2020-01-02 10:38] LABS: PLATELET COUNT 185 K/MM3 (134-434)
--- NOTE | 2020-01-02 12:14 | PN ---
Progress Note, Physician History of Present Illness: patient still with intubation no new issues sedation has been stopped patient eyes open seems follows commands - Current Medication List Current Medications: Active Medications Albuterol/Ipratropium (Duoneb -) 1 amp NEB Q4H PRN PRN Reason: SHORTNESS OF BREATH Apixaban (Eliquis -) 5 mg PO BID [facility] Last Admin: 01/02/20 09:04 Dose: 5 mg Documented by: Ascorbic Acid (Vitamin C -) 1,000 mg PO DAILY [facility] Last Admin: 01/02/20 09:03 Dose: 1,000 mg Documented by: Chlorhexidine Gluconate (Peridex -) 15 ml MM BID [facility] Last Admin: 01/02/20 09:05 Dose: 15 ml Documented by: Hydrocortisone Sodium Succinate (Solu-Cortef -) 50 mg IVPUSH BID [facility] Last Admin: 01/02/20 09:04 Dose: 50 mg Documented by: Propofol (Diprivan -) 1,000,000 mcg in 100 mls @ 3.266 mls/hr IVPB TITR [facility]; Protocol Last Titration: 01/02/20 08:30 Dose: 0 mcg/kg/min, 0 mls/hr Documented by: Midazolam HCl (Midazolam 100mg/100ml-0.9%Nacl) 100 mg in 100 mls @ 1 mls/hr IVPB TITR [facility]; Protocol Last Infusion: 01/02/20 08:30 Dose: 0 mg/hr, 0 mls/hr Documented by: Metoprolol Tartrate (Lopressor -) 25 mg PO BID [facility] Last Admin: 01/02/20 09:04 Dose: 25 mg Documented by: Multivitamins/Minerals/Vitamin C (Tab-A-Vit -) 1 tab PO DAILY [facility] Last Admin: 01/02/20 09:05 Dose: 1 tab Documented by: Pantoprazole Sodium (Protonix Iv) 40 mg IVPUSH DAILY [facility] Last Admin: 01/02/20 09:04 Dose: 40 mg Documented by: - Objective Vital Signs: Vital Signs Temperature 98.2 F 01/02/20 12:00 Pulse Rate 88 01/02/20 12:00 Respiratory Rate 19 01/02/20 12:03 Blood Pressure 116/72 01/02/20 12:00 O2 Sat by Pulse Oximetry (%) 94 L 01/02/20 12:03 Constitutional: Yes: No Distress, Calm Cardiovascular: Yes: S1, S2 Respiratory: Yes: Intubated, Mechanically Ventilated Gastrointestinal: Yes: Normal Bowel Sounds, Soft Musculoskeletal: Yes: WNL Extremities: Yes: WNL Neurological: Yes: Alert, Other Labs: CBC, BMP 01/02/20 05:00 01/02/20 05:00 INR, PTT INR 1.34 (0.83-1.09) H 12/16/19 18:40 Assessment/Plan 64 year old male with a past medical history of HTN, HLD, JUANA (not using CPAP), COPD, GERD, systolic congestive heart failure, paroxysmal atrial fibrillation (on Eliquis, s/p cardioversion 11/2016) who presented with 3 weeks of gradual onset anasarca, scrotal swelling and mild shortness of breath worse on exertion. He as found to have a PNA, on clinical exam signs of fluid overload, ?bilateral lower extremity cellulitis and bilateral hydrocele. 1. Acute Respiratory Failure 2. Fluid Overload/ 3.Bilateral Lower Extremity Cellulitis 4. Hydrocele 5. Hypertension 6. Atrial Fibrillation 7. Elevated Troponin 8. Rule Out COVID 9 pna plan cx reports noted monitor fevers icu mgmt vent mgmt res as per icu abx stopped cc 38 min
--- NOTE | 2020-01-02 13:12 | PN ---
Teaching Attending Note Name of Resident: Justin Cardona ATTENDING PHYSICIAN STATEMENT I saw and evaluated the patient. I reviewed the resident's note and discussed the case with the resident. I agree with the resident's findings and plan as documented. SUBJECTIVE: Patient seen and examined in the ICU. Remains intubated, sedated. Off pressors. Vented on volume assist control with 60% FiO2. OBJECTIVE: Intake & Output 12/30/19 12/31/19 01/01/20 01/02/20 23:59 23:59 23:59 23:59 Intake Total 1988.2 1385.6 1844.0 1280 Output Total 4100 2900 2600 700 Balance -2111.8 -1514.4 -756.0 580 Weight 250 lb 238 lb 236 lb 229 lb 3.2 oz Last Vital Signs Temp Pulse Resp BP Pulse Ox 98.2 F 88 19 116/72 94 L 01/02/20 12:00 01/02/20 12:00 01/02/20 12:03 01/02/20 12:00 01/02/20 12:03 Active Medications Albuterol/Ipratropium (Duoneb -) 1 amp NEB Q4H PRN PRN Reason: SHORTNESS OF BREATH Apixaban (Eliquis -) 5 mg PO BID [facility] Last Admin: 01/02/20 09:04 Dose: 5 mg Documented by: Ascorbic Acid (Vitamin C -) 1,000 mg PO DAILY [facility] Last Admin: 01/02/20 09:03 Dose: 1,000 mg Documented by: Chlorhexidine Gluconate (Peridex -) 15 ml MM BID [facility] Last Admin: 01/02/20 09:05 Dose: 15 ml Documented by: Hydrocortisone Sodium Succinate (Solu-Cortef -) 50 mg IVPUSH BID [facility] Last Admin: 01/02/20 09:04 Dose: 50 mg Documented by: Propofol (Diprivan -) 1,000,000 mcg in 100 mls @ 3.266 mls/hr IVPB TITR [facility]; Protocol Last Titration: 01/02/20 08:30 Dose: 0 mcg/kg/min, 0 mls/hr Documented by: Midazolam HCl (Midazolam 100mg/100ml-0.9%Nacl) 100 mg in 100 mls @ 1 mls/hr IVPB TITR [facility]; Protocol Last Infusion: 06/29/20 08:30 Dose: 0 mg/hr, 0 mls/hr Documented by: Metoprolol Tartrate (Lopressor -) 25 mg PO BID [facility] Last Admin: 01/02/20 09:04 Dose: 25 mg Documented by: Multivitamins/Minerals/Vitamin C (Tab-A-Vit -) 1 tab PO DAILY [facility] Last Admin: 01/02/20 09:05 Dose: 1 tab Documented by: Pantoprazole Sodium (Protonix Iv) 40 mg IVPUSH DAILY [facility] Last Admin: 01/02/20 09:04 Dose: 40 mg Documented by: Gen: intubated, sedated Heart: tachycardic, regular Lung: scattered rhonchi Abd: soft, +ascites Ext: Less edema Laboratory Results - last 24 hr 01/02/20 01/02/20 01/02/20 05:00 05:00 05:20 WBC 9.1 RBC 6.31 H Hgb 14.7 Hct 51.8 H MCV 82.2 MCH 23.3 L MCHC 28.4 L RDW 24.1 H Plt Count 185 MPV 11.3 H Absolute Neuts (auto) 7.4 Neutrophils % 81.2 Lymphocytes % 9.4 Monocytes % 8.3 Eosinophils % 0.5 D Basophils % 0.6 Nucleated RBC % 0 Hypochromia 0 Platelet Estimate Normal Platelet Comment Polychromasia 1+ Poikilocytosis 1+ Anisocytosis 1+ Microcytosis 1+ Macrocytosis 0 Spherocytes 1+ Tear Drop Cells 1+ Ovalocytes 1+ Anticoagulation Therapy No Result Required. Puncture Site Right radial Patient Temperature No Result Required. ABG pH 7.504 H ABG pCO2 51.60 H ABG pO2 85.3 ABG HCO3 39.7 H ABG O2 Sat (Measured) 97.0 ABG O2 Content No Result Required. ABG Base Excess 14.1 H Ye Test Positive Patient On Oxygen Yes O2 Delivery Device Vent Oxygen Flow Rate 70% Vent Mode A/c Vent Rate 24 Mechanical Rate Yes PEEP 10.0 Pressure Support Vent 450 Sodium 154 H Potassium 3.1 L Chloride 105 Carbon Dioxide 42 H Anion Gap 6 L BUN 70.6 H Creatinine 0.9 Est GFR (CKD-EPI)AfAm 102.79 Est GFR (CKD-EPI)NonAf 88.69 Random Glucose 232 H Calcium 9.2 Phosphorus 4.0 Magnesium 2.8 H Total Bilirubin 3.2 H AST 38 H ALT 62 H Alkaline Phosphatase 99 Total Protein 5.8 L Albumin 2.3 L ASSESSMENT AND PLAN: Acute on Chronic Hypoxic and Hypercapneic Respiratory Failure Pneumonia ARDS Septic Shock Acute on Chronic Diastolic Heart Failure Pulmonary HTN Paroxysmal Atrial Fibrillation CAD Acute Kidney Injury Likely COPD JUANA/OHS HTN Hypercholesterolemia - continue antibiotics - off pressors, maintain MAP >65 - taper stress dose steroids - rate control - continue anticoagulation - low tidal volume ventilation - titrate FiO2, PEEP to keep SpO2 >90% - continue lasix - monitor urine output, creatinine - enteral feeds - DVT/GI prophylaxis - Wean trials as FiO2 & PEEP requirements improve - continue ICU monitoring May need Trach Dr Sanz Critical care time spent in reviewing chart, evaluating patient and formulating plan 35 min
--- NOTE | 2020-01-02 13:27 | PN ---
Physical Exam: SUBJECTIVE: Patient seen and examined. Afebrile. Abx d/rodriguez. Afib on eliquis. Pt will likely need trach, can benefit from it. Discussed with family and is amenable to trach. Will obtain consent OBJECTIVE: Vital Signs Period Temp Pulse Resp BP Sys/Clements Pulse Ox Last 24 Hr 98.2 F-99.9 F 71-109 18-24 99-116/60-72 93-96 GENERAL: sedated, vented EYES: Pupils equal, round and reactive to light, extraocular movements intact, sclera anicteric, conjunctiva clear. No lid lag. EARS, NOSE, THROAT: dry, mucous membranes. LUNGS: Breath sounds equal, clear to auscultation bilaterally. No wheezes, and no crackles. on Vent HEART: Regular rate and rhythm, normal S1 and S2 without murmur, rub or gallop. ABDOMEN: Soft, nontender, not distended, normoactive bowel sounds, no guarding, no rebound, no masses. UPPER EXTREMITIES: 2+ pulses, warm, well-perfused. No cyanosis. No peripheral edema. LOWER EXTREMITIES: 2+ pulses, warm, well-perfused. No calf tenderness. No peripheral edema. SKIN: Warm, dry, normal turgor, no rashes or lesions noted. Laboratory Results - last 24 hr 01/02/20 01/02/20 01/02/20 05:00 05:00 05:20 WBC 9.1 RBC 6.31 H Hgb 14.7 Hct 51.8 H MCV 82.2 MCH 23.3 L MCHC 28.4 L RDW 24.1 H Plt Count 185 MPV 11.3 H Absolute Neuts (auto) 7.4 Neutrophils % 81.2 Lymphocytes % 9.4 Monocytes % 8.3 Eosinophils % 0.5 D Basophils % 0.6 Nucleated RBC % 0 Hypochromia 0 Platelet Estimate Normal Platelet Comment Polychromasia 1+ Poikilocytosis 1+ Anisocytosis 1+ Microcytosis 1+ Macrocytosis 0 Spherocytes 1+ Tear Drop Cells 1+ Ovalocytes 1+ Anticoagulation Therapy No Result Required. Puncture Site Right radial Patient Temperature No Result Required. ABG pH 7.504 H ABG pCO2 51.60 H ABG pO2 85.3 ABG HCO3 39.7 H ABG O2 Sat (Measured) 97.0 ABG O2 Content No Result Required. ABG Base Excess 14.1 H Ye Test Positive Patient On Oxygen Yes O2 Delivery Device Vent Oxygen Flow Rate 70% Vent Mode A/c Vent Rate 24 Mechanical Rate Yes PEEP 10.0 Pressure Support Vent 450 Sodium 154 H Potassium 3.1 L Chloride 105 Carbon Dioxide 42 H Anion Gap 6 L BUN 70.6 H Creatinine 0.9 Est GFR (CKD-EPI)AfAm 102.79 Est GFR (CKD-EPI)NonAf 88.69 Random Glucose 232 H Calcium 9.2 Phosphorus 4.0 Magnesium 2.8 H Total Bilirubin 3.2 H AST 38 H ALT 62 H Alkaline Phosphatase 99 Total Protein 5.8 L Albumin 2.3 L Active Medications Generic Name Dose Route Start Last Admin Trade Name Freq PRN Reason Stop Dose Admin Albuterol/Ipratropium 1 amp 12/26/19 11:46 Duoneb - NEB Q4H PRN SHORTNESS OF BREATH Apixaban 5 mg 12/16/19 22:00 01/02/20 09:04 Eliquis - PO 5 mg BID [facility] Administration Ascorbic Acid 1,000 mg 12/17/19 10:00 01/02/20 09:03 Vitamin C - PO 1,000 mg DAILY [facility] Administration Chlorhexidine Gluconate 15 ml 12/22/19 12:30 01/02/20 09:05 Peridex - MM 15 ml BID [facility] Administration Hydrocortisone Sodium Succinate 50 mg 12/31/19 22:00 01/02/20 09:04 Solu-Cortef - IVPUSH 50 mg BID [facility] Administration Propofol 1,000,000 mcg in 100 mls @ 3.266 mls/hr 12/17/19 04:30 01/02/20 08:30 Diprivan - IVPB 0 mcg/kg/min TITR [facility] 0 mls/hr Titration Protocol 5 MCG/KG/MIN Midazolam HCl 100 mg in 100 mls @ 1 mls/hr 12/22/19 08:00 01/02/20 08:30 Midazolam 100mg/100ml-0.9%Nacl IVPB 0 mg/hr TITR [facility] 0 mls/hr Infusion Protocol 1 MG/HR Metoprolol Tartrate 25 mg 12/19/19 12:00 01/02/20 09:04 Lopressor - PO 25 mg BID [facility] Administration Multivitamins/Minerals/Vitamin C 1 tab 12/17/19 10:00 06/29/20 09:05 Tab-A-Vit - PO 1 tab DAILY [facility] Administration Pantoprazole Sodium 40 mg 12/19/19 10:00 01/02/20 09:04 Protonix Iv IVPUSH 40 mg DAILY [facility] Administration ASSESSMENT/PLAN: 64 year old male with a past medical history of HTN, HLD, JUANA (not using CPAP), COPD, GERD, systolic congestive heart failure, paroxysmal atrial fibrillation (on Eliquis, s/p cardioversion 11/2016) who presented with 3 weeks of gradual onset anasarca, scrotal swelling and mild shortness of breath worse on exertion, found to have right lobe PNA, fluid overload, bilateral lower extremity cellulitis and bilateral hydrocele, and respiratory acidosis is admitted for Acute hypercapneic respiratory failure and Acute CHF exacerbation #Neuro Pt sedated and vented sedation Held #CV Fluid Overload 2/2 sCHF exacerbation, CXR- with small right and left pleural effusion monitor renal studies, electrolytes, strict I&O's and daily weights Clinical signs of severe volume overload- anasarca, b/l LE edema- Improved Cardiology following on lisinopril- hold until peter improves cont metoprolol 25 BID holding lasix, s/p one dose acetazolamide Pt on eliquis Off pressors #Pulm Acute hypercapneic resp failure 2/2 to Community acquired pneumonia vs COPD exacerbation CXR: pulmonary congestion, right lower lobe effusion ABG showed 7.5/51.6/85/39.7 AC 24/450/70/10 Plat 20, PIP 25, --- wean FiO2 down Hydrocortisone 50 BID, can taper to daily #ID Bilateral Lower Extremity Cellulitis abx d/rodriguez ID consulted #Renal stable s/p acetazolamide Lasix 40 daily, check response [id number], O-[id number] Azotemia likely 2/2 to steriod vs protein intake vs GI bleed- monitor bleeds Hypernatremia, will start on Free water 500cc Q4H- monitor for fluid overload #GI Anasarca- improved cont diuresis #Heme monitor will monitor for now #DVT ppx On eliquis #GI ppx protonix Lines LUE A-line 12/20 [facility] 12/26 ET 7.5 FEN monitor lytes Fluid restrictions cont feeds Aspiration risk Dispo: hold abx, monitor I&Os, hold lasix, monitor I&Os, maintain off pressors, wean FiO2 Mothers # [phone] -cell, -Home As per brother Ady, would like to be updated as opposed to his mother Visit type - Emergency Visit Emergency Visit: Yes ED Registration Date: 12/16/19 Care time: The patient presented to the Emergency Department on the above date and was hospitalized for further evaluation of their emergent condition. - New Patient This patient is new to me today: Yes Date on this admission: 01/03/20 - Critical Care Critical Care patient: No - Discharge Referral Referred to [facility] Med [facility] No ATTENDING PHYSICIAN STATEMENT I saw and evaluated the patient. I reviewed the resident's note and discussed the case with the resident. I agree with the resident's findings and plan as documented. SUBJECTIVE: OBJECTIVE: ASSESSMENT AND PLAN:
--- NOTE | 2020-01-02 14:11 | PN ---
Progress Note, Physician History of Present Illness: 64 year old male with a past medical history of HTN, HLD, JUANA (not using CPAP), COPD, GERD, systolic congestive heart failure, paroxysmal atrial fibrillation (on Eliquis, s/p cardioversion 11/2016) who presented with 3 weeks of gradual onset anasarca, scrotal swelling and mild shortness of breath worse on exertion. CXR s/f diffused bilat opacities with c/f PNA +/-fluid overload, ?bilateral l ower extremity cellulitis and bilateral hydrocele, and respiratory acidosis is admitted for Acute hypercapneic respiratory failure and Acute CHF exacerbation, intubated for progressive hypercarbic respiratory failure, decreased mental status on BiPAP. 01/02/2020 Remains intubated, off pressors and sedation. Vented on volume assist control with 60% FiO2, PEEP 10. Afebrile. - Current Medication List Current Medications: Active Medications Albuterol/Ipratropium (Duoneb -) 1 amp NEB Q4H PRN PRN Reason: SHORTNESS OF BREATH Apixaban (Eliquis -) 5 mg PO BID [facility] Last Admin: 01/02/20 09:04 Dose: 5 mg Documented by: Ascorbic Acid (Vitamin C -) 1,000 mg PO DAILY [facility] Last Admin: 01/02/20 09:03 Dose: 1,000 mg Documented by: Chlorhexidine Gluconate (Peridex -) 15 ml MM BID [facility] Last Admin: 01/02/20 09:05 Dose: 15 ml Documented by: Hydrocortisone Sodium Succinate (Solu-Cortef -) 50 mg IVPUSH BID [facility] Last Admin: 01/02/20 09:04 Dose: 50 mg Documented by: Propofol (Diprivan -) 1,000,000 mcg in 100 mls @ 3.266 mls/hr IVPB TITR [facility]; Protocol Last Titration: 01/02/20 08:30 Dose: 0 mcg/kg/min, 0 mls/hr Documented by: Midazolam HCl (Midazolam 100mg/100ml-0.9%Nacl) 100 mg in 100 mls @ 1 mls/hr IVPB TITR [facility]; Protocol Last Infusion: 01/02/20 08:30 Dose: 0 mg/hr, 0 mls/hr Documented by: Metoprolol Tartrate (Lopressor -) 25 mg PO BID [facility] Last Admin: 01/02/20 09:04 Dose: 25 mg Documented by: Multivitamins/Minerals/Vitamin C (Tab-A-Vit -) 1 tab PO DAILY [facility] Last Admin: 01/02/20 09:05 Dose: 1 tab Documented by: Pantoprazole Sodium (Protonix Iv) 40 mg IVPUSH DAILY [facility] Last Admin: 01/02/20 09:04 Dose: 40 mg Documented by: - Objective Vital Signs: Vital Signs Temperature 98.2 F 01/02/20 12:00 Pulse Rate 88 01/02/20 12:00 Respiratory Rate 19 01/02/20 12:03 Blood Pressure 116/72 01/02/20 12:00 O2 Sat by Pulse Oximetry (%) 94 L 01/02/20 12:03 Constitutional: Yes: No Distress, Calm Neck: Yes: Supple Cardiovascular: Yes: Regular Rate and Rhythm Respiratory: Yes: Intubated, Mechanically Ventilated, Rhonchi Gastrointestinal: Yes: Normal Bowel Sounds, Soft, Abdomen, Obese Genitourinary: Yes: Hilario Present Edema: Yes Labs: CBC, BMP 01/02/20 05:00 01/02/20 05:00 INR, PTT INR 1.34 (0.83-1.09) H 12/16/19 18:40 - ....Imaging Chest X-ray: Report Reviewed (Resolving CHF and pleural effusions) Problem List - Problems (1) Congestive heart failure (CHF) Code(s): I50.9 - HEART FAILURE, UNSPECIFIED Qualifiers: Heart failure type: diastolic Heart failure chronicity: acute on chronic Qualified Code(s): I50.33 - Acute on chronic diastolic (congestive) heart failure (2) Pneumonia Code(s): J18.9 - PNEUMONIA, UNSPECIFIED ORGANISM Qualifiers: Pneumonia type: due to unspecified organism Laterality: right Lung location: lower lobe of lung Qualified Code(s): J18.9 - Pneumonia, unspecified organism (3) Acute on chronic diastolic (congestive) heart failure Code(s): I50.33 - ACUTE ON CHRONIC DIASTOLIC (CONGESTIVE) HEART FAILURE (4) Acute respiratory failure with hypoxia and hypercarbia Code(s): J96.01 - ACUTE RESPIRATORY FAILURE WITH HYPOXIA; J96.02 - ACUTE RESPIRATORY FAILURE WITH HYPERCAPNIA (5) Atrial fibrillation Code(s): I48.91 - UNSPECIFIED ATRIAL FIBRILLATION Qualifiers: Atrial fibrillation type: paroxysmal Qualified Code(s): I48.0 - Paroxysmal atrial fibrillation (6) COPD (chronic obstructive pulmonary disease) Code(s): J44.9 - CHRONIC OBSTRUCTIVE PULMONARY DISEASE, UNSPECIFIED Qualifiers: COPD type: unspecified COPD Qualified Code(s): J44.9 - Chronic obstructive pulmonary disease, unspecified (7) Hypertension Code(s): I10 - ESSENTIAL (PRIMARY) HYPERTENSION Qualifiers: Hypertension type: essential hypertension Qualified Code(s): I10 - Essential (primary) hypertension (8) Lymphedema of both lower extremities Code(s): I89.0 - LYMPHEDEMA, NOT ELSEWHERE CLASSIFIED (9) Pleural effusion Code(s): J90 - PLEURAL EFFUSION, NOT ELSEWHERE CLASSIFIED Assessment/Plan 10/26/2017 Normal LV size with mild LVH, normal LV fxn, normal RV size and fxn, mild LAE, mild MR, mild-mod TR, mild TN, RVSP 43 mmHg 11/19/2016 Lexiscan Myoview: Apical ischemia, LVEF 45-52% 10/06/2016 Echocardiography revealed mild to moderate LV systolic dysfunction, moderate TR, RVSP of 30-40 mmH 1. Acute on chronic Hypoxic and Hypercapneic Respiratory Failure, currently intubated 2. Acute on chronic LV Diastolic Heart Failure with pleural effusion 3. Pneumonia (septic shock) 4. Paroxysmal atrial fibrillation with periods of rapid ventricular response post DCCV, [id number] score of 2 5. Obstructive Sleep Apnea/Obesity Hypoventilation Syndrome with dental appliance 6. HTN/HCVD 7. Hypercholesterolemia 8. CAD angina pectoris 9. Bilateral cellulitis with h/o abscess s/p debridement 10. Bilateral hydrocele PLAN: 1. Vent management titrate FiO2, PEEP to keep SpO2 >90% 2. DVT and GI prophylaxis, enteral feeds 3. Diuretics as needed with monitor diuretic response, renal function and electrolytes 4. Continue Lopressor 25 mg BID and Eliquis 5 mg BID 5. Observe off antibiotic, stress dose steroid wean with GI protection
--- NOTE | 2020-01-02 15:04 | PN ---
Progress Note, Physician History of Present Illness: Pt seen and examined at bedside. He remains in the ICU. He remains intubated. - Current Medication List Current Medications: Active Medications Albuterol/Ipratropium (Duoneb -) 1 amp NEB Q4H PRN PRN Reason: SHORTNESS OF BREATH Apixaban (Eliquis -) 5 mg PO BID [facility] Last Admin: 01/02/20 09:04 Dose: 5 mg Documented by: Ascorbic Acid (Vitamin C -) 1,000 mg PO DAILY [facility] Last Admin: 01/02/20 09:03 Dose: 1,000 mg Documented by: Chlorhexidine Gluconate (Peridex -) 15 ml MM BID [facility] Last Admin: 01/02/20 09:05 Dose: 15 ml Documented by: Hydrocortisone Sodium Succinate (Solu-Cortef -) 50 mg IVPUSH BID [facility] Last Admin: 01/02/20 09:04 Dose: 50 mg Documented by: Propofol (Diprivan -) 1,000,000 mcg in 100 mls @ 3.266 mls/hr IVPB TITR [facility]; Protocol Last Titration: 01/02/20 08:30 Dose: 0 mcg/kg/min, 0 mls/hr Documented by: Midazolam HCl (Midazolam 100mg/100ml-0.9%Nacl) 100 mg in 100 mls @ 1 mls/hr IVPB TITR [facility]; Protocol Last Infusion: 01/02/20 08:30 Dose: 0 mg/hr, 0 mls/hr Documented by: Metoprolol Tartrate (Lopressor -) 25 mg PO BID [facility] Last Admin: 01/02/20 09:04 Dose: 25 mg Documented by: Multivitamins/Minerals/Vitamin C (Tab-A-Vit -) 1 tab PO DAILY [facility] Last Admin: 01/02/20 09:05 Dose: 1 tab Documented by: Pantoprazole Sodium (Protonix Iv) 40 mg IVPUSH DAILY [facility] Last Admin: 01/02/20 09:04 Dose: 40 mg Documented by: - Objective Vital Signs: Vital Signs Temperature 98.2 F 01/02/20 12:00 Pulse Rate 88 01/02/20 12:00 Respiratory Rate 19 01/02/20 12:03 Blood Pressure 116/72 01/02/20 12:00 O2 Sat by Pulse Oximetry (%) 94 L 01/02/20 12:03 Constitutional: Yes: Calm Eyes: Yes: Conjunctiva Clear HENT: Yes: Atraumatic Neck: Yes: Supple Cardiovascular: Yes: S1, S2 Respiratory: Yes: Mechanically Ventilated Gastrointestinal: Yes: Normal Bowel Sounds, Soft Genitourinary: Yes: Hilario Present Musculoskeletal: Yes: Muscle Weakness Edema: No Integumentary: Yes: Venous Stasis Changes Neurological: Yes: Oriented Psychiatric: Yes: Oriented Labs: CBC, BMP 01/02/20 05:00 01/02/20 05:00 INR, PTT INR 1.34 (0.83-1.09) H 12/16/19 18:40 - ....Imaging Chest X-ray: Report Reviewed Problem List - Problems (1) Anasarca Code(s): R60.1 - GENERALIZED EDEMA (2) Congestive heart failure (CHF) Code(s): I50.9 - HEART FAILURE, UNSPECIFIED Qualifiers: Heart failure type: diastolic Heart failure chronicity: acute on chronic Qualified Code(s): I50.33 - Acute on chronic diastolic (congestive) heart failure (3) Acute kidney injury Code(s): N17.9 - ACUTE KIDNEY FAILURE, UNSPECIFIED Assessment/Plan Current Medications Generic Name Dose Route Start Last Admin Trade Name Freq PRN Reason Stop Dose Admin Albuterol/Ipratropium 1 amp 12/26/19 11:46 Duoneb - NEB Q4H PRN SHORTNESS OF BREATH Apixaban 5 mg 12/16/19 22:00 01/02/20 09:04 Eliquis - PO 5 mg BID [facility] Administration Ascorbic Acid 1,000 mg 12/17/19 10:00 01/02/20 09:03 Vitamin C - PO 1,000 mg DAILY [facility] Administration Chlorhexidine Gluconate 15 ml 12/22/19 12:30 01/02/20 09:05 Peridex - MM 15 ml BID [facility] Administration Hydrocortisone Sodium Succinate 50 mg 12/31/19 22:00 01/02/20 09:04 Solu-Cortef - IVPUSH 50 mg BID [facility] Administration Propofol 1,000,000 mcg in 100 mls @ 3.266 mls/hr 12/17/19 04:30 01/02/20 08:30 Diprivan - IVPB 0 mcg/kg/min TITR [facility] 0 mls/hr Titration Protocol 5 MCG/KG/MIN Midazolam HCl 100 mg in 100 mls @ 1 mls/hr 12/22/19 08:00 01/02/20 08:30 Midazolam 100mg/100ml-0.9%Nacl IVPB 0 mg/hr TITR [facility] 0 mls/hr Infusion Protocol 1 MG/HR Metoprolol Tartrate 25 mg 12/19/19 12:00 01/02/20 09:04 Lopressor - PO 25 mg BID [facility] Administration Multivitamins/Minerals/Vitamin C 1 tab 12/17/19 10:00 01/02/20 09:05 Tab-A-Vit - PO 1 tab DAILY [facility] Administration Pantoprazole Sodium 40 mg 12/19/19 10:00 01/02/20 09:04 Protonix Iv IVPUSH 40 mg DAILY [facility] Administration Impression 1. MONIE 2. CHF acute 3. acute resp failure requiring intubation 4. atrial fibrillation 5. hx of htn 6. obesity 7. chronic smoker 8. hypokalemia Plan - hold diuretics - free water with feeds - monitor sodium - replace potassium - cont vent support - volume status improved - maintain map of 65 - renal function stable - cont to monitor bun - will follow - discussed with ICU team
[2020-01-02] MEDS ORDERED: VASOPRESSIN 20 UNITS/ML VIAL IV ONE (17:25)
[2020-01-02] MEDS: VASOPRESSIN 40 UNITS in SODIUM CHLORIDE 98 ML IVPB SCH ×2 (17:29→17:30)
[2020-01-02 19:25] LABS: BLOOD UREA NITROGEN 70.3 mg/dL (7-18); CALCIUM 9.5 mg/dL (8.5-10.1); CREATININE 0.9 mg/dL (0.55-1.3); POTASSIUM 3.7 mmol/L (3.5-5.1)
[2020-01-02] MEDS: PROPOFOL 1,000,000 MCG/100 ML VIAL IVPB SCH (21:26)
[2020-01-03 01:49] LABS: BLOOD UREA NITROGEN 71.8 mg/dL (7-18); CALCIUM 8.9 mg/dL (8.5-10.1)
[2020-01-03 06:15] LABS: HEMOGLOBIN 13.9 GM/dL (11.7-16.9); MCH 23.5 pg (25.7-33.7); MCHC 28.4 g/dl (32.0-35.9); MEAN CELL VOLUME 82.8 fl (80-96); MEAN PLT VOLUME 11.4 fl (7.5-11.1); PLATELET COUNT 172 K/MM3 (134-434); RBC 5.92 M/mm3 (4.00-5.60); RDW 24.5 % (11.9-15.9); WHITE BLOOD COUNT 10.5 K/mm3 (4.0-10.0)
[2020-01-03] MEDS: PROPOFOL 1,000,000 MCG/100 ML VIAL IVPB SCH ×2 (06:41)
[2020-01-03] MEDS: MIDAZOLAM IN 0.9 % SOD.CHLORID 100 MG/100 ML PLAST..BAG IVPB SCH (06:41)
[2020-01-03 06:42] LABS: ARTERIAL BLOOD GAS BASE EXCESS 9.1 mmol/L (-2-2); ARTERIAL BLOOD GAS PO2 93.7 mmHg (80-100); ARTERIAL BLOOD GAS pH 7.406 (7.350-7.450)
[2020-01-03 06:47] LABS: ALBUMIN 2.2 g/dl (3.4-5.0); BLOOD UREA NITROGEN 72.9 mg/dL (7-18); CALCIUM 8.8 mg/dL (8.5-10.1); MAGNESIUM 2.7 mg/dL (1.8-2.4); POTASSIUM 3.7 mmol/L (3.5-5.1); TOT PROT 5.8 g/dl (6.4-8.2)
[2020-01-03 06:49] LABS: BILIRUBIN,TOTAL 5.4 mg/dL (0.2-1)
[2020-01-03 06:50] LABS: VENT MODE A/C; VENT RATE 18
[2020-01-03] MEDS: PANTOPRAZOLE SODIUM 40 MG VIAL IVPUSH SCH (11:12)
[2020-01-03] MEDS: APIXABAN 5 MG TABLET PO SCH ×2 (11:13→21:11)
[2020-01-03] MEDS: HYDROCORTISONE SOD SUCCINATE 100 MG/2 ML VIAL IVPUSH SCH ×2 (11:13→21:11)
[2020-01-03] MEDS: MULTIVITAMINS (DAILY MVI) TABLET (FP) PO SCH (11:13)
[2020-01-03] MEDS: ASCORBIC ACID 500 MG TABLET (FP) PO SCH (11:13)
[2020-01-03] MEDS: METOPROLOL TARTRATE 25 MG TABLET (FP) PO SCH ×2 (11:13→21:11)
[2020-01-03] MEDS: CHLORHEXIDINE GLUCONATE 0.12% 15ML CUP MM SCH ×2 (11:14→21:12)
--- NOTE | 2020-01-03 11:15 | PN ---
Progress Note, Physician Chief Complaint: Events noted Remains intubated and sedated History of Present Illness: Patient was seen and examined in ICU. On mechanical ventilator. Chart was reviewed - Current Medication List Current Medications: Active Medications Albuterol/Ipratropium (Duoneb -) 1 amp NEB Q4H PRN PRN Reason: SHORTNESS OF BREATH Apixaban (Eliquis -) 5 mg PO BID [facility] Last Admin: 01/02/20 21:27 Dose: 5 mg Documented by: Ascorbic Acid (Vitamin C -) 1,000 mg PO DAILY [facility] Last Admin: 01/02/20 09:03 Dose: 1,000 mg Documented by: Chlorhexidine Gluconate (Peridex -) 15 ml MM BID [facility] Last Admin: 01/02/20 21:26 Dose: 15 ml Documented by: Hydrocortisone Sodium Succinate (Solu-Cortef -) 50 mg IVPUSH BID [facility] Last Admin: 01/02/20 21:26 Dose: 50 mg Documented by: Propofol (Diprivan -) 1,000,000 mcg in 100 mls @ 3.266 mls/hr IVPB TITR [facility]; Protocol Last Admin: 01/03/20 06:41 Dose: 20 mcg/kg/min, 13.063 mls/hr Documented by: Midazolam HCl (Midazolam 100mg/100ml-0.9%Nacl) 100 mg in 100 mls @ 1 mls/hr IVPB TITR [facility]; Protocol Last Admin: 01/03/20 06:41 Dose: 10 mg/hr, 10 mls/hr Documented by: Vasopressin 40 units/ Sodium (Chloride) 100 mls @ 5 mls/hr IVPB TITR [facility]; Protocol Last Titration: 01/03/20 06:41 Dose: 1 units/hr, 2.5 mls/hr Documented by: Metoprolol Tartrate (Lopressor -) 25 mg PO BID [facility] Last Admin: 01/02/20 21:27 Dose: 25 mg Documented by: Multivitamins/Minerals/Vitamin C (Tab-A-Vit -) 1 tab PO DAILY [facility] Last Admin: 01/02/20 09:05 Dose: 1 tab Documented by: Pantoprazole Sodium (Protonix Iv) 40 mg IVPUSH DAILY [facility] Last Admin: 01/02/20 09:04 Dose: 40 mg Documented by: - Objective Vital Signs: Vital Signs Temperature 97.8 F 01/03/20 10:00 Pulse Rate 82 01/03/20 10:00 Respiratory Rate 20 01/03/20 10:00 Blood Pressure 115/65 01/03/20 10:00 O2 Sat by Pulse Oximetry (%) 96 01/02/20 20:31 Cardiovascular: Yes: Regular Rate and Rhythm, S1, S2 Respiratory: Yes: Diminished, Mechanically Ventilated Gastrointestinal: Yes: Normal Bowel Sounds, Soft. No: Tenderness Edema: No Labs: CBC, BMP 01/03/20 05:40 01/03/20 05:40 Problem List - Problems (1) Congestive heart failure (CHF) Code(s): I50.9 - HEART FAILURE, UNSPECIFIED Qualifiers: Heart failure type: diastolic Heart failure chronicity: acute on chronic Qualified Code(s): I50.33 - Acute on chronic diastolic (congestive) heart failure (2) Pleural effusion Code(s): J90 - PLEURAL EFFUSION, NOT ELSEWHERE CLASSIFIED (3) Pneumonia Code(s): J18.9 - PNEUMONIA, UNSPECIFIED ORGANISM Qualifiers: Pneumonia type: due to unspecified organism Laterality: right Lung location: lower lobe of lung Qualified Code(s): J18.9 - Pneumonia, unspecified organism (4) Acute hypercapnic respiratory failure Code(s): J96.02 - ACUTE RESPIRATORY FAILURE WITH HYPERCAPNIA (5) Acute on chronic diastolic (congestive) heart failure Code(s): I50.33 - ACUTE ON CHRONIC DIASTOLIC (CONGESTIVE) HEART FAILURE (6) Acute respiratory failure with hypoxia and hypercarbia Code(s): J96.01 - ACUTE RESPIRATORY FAILURE WITH HYPOXIA; J96.02 - ACUTE RESPIRATORY FAILURE WITH HYPERCAPNIA (7) Atrial fibrillation Code(s): I48.91 - UNSPECIFIED ATRIAL FIBRILLATION Qualifiers: Atrial fibrillation type: paroxysmal Qualified Code(s): I48.0 - Paroxysmal atrial fibrillation (8) COPD (chronic obstructive pulmonary disease) Code(s): J44.9 - CHRONIC OBSTRUCTIVE PULMONARY DISEASE, UNSPECIFIED Qualifiers: COPD type: unspecified COPD Qualified Code(s): J44.9 - Chronic obstructive pulmonary disease, unspecified (9) Hypertension Code(s): I10 - ESSENTIAL (PRIMARY) HYPERTENSION Qualifiers: Hypertension type: essential hypertension Qualified Code(s): I10 - Essential (primary) hypertension (10) Respiratory failure requiring intubation Code(s): J96.90 - RESPIRATORY FAILURE, UNSP, UNSP W HYPOXIA OR HYPERCAPNIA (11) Sleep apnea Code(s): G47.30 - SLEEP APNEA, UNSPECIFIED Qualifiers: Sleep apnea type: obstructive Qualified Code(s): G47.33 - Obstructive sleep apnea (adult) (pediatric) (12) Systolic and diastolic CHF, chronic Code(s): I50.42 - CHRONIC COMBINED SYSTOLIC AND DIASTOLIC HRT FAIL Assessment/Plan 1. Acute on chronic Hypoxic and Hypercapneic Respiratory Failure, currently intubated 2. Acute on chronic LV Diastolic Heart Failure with pleural effusion 3. Pneumonia (septic shock) 4. Paroxysmal atrial fibrillation with periods of rapid ventricular response post DCCV, [id number] score of 2 5. Obstructive Sleep Apnea/Obesity 6. HTN/HCVD 7. Hypercholesterolemia 8. CAD, angina pectoris 9. Bilateral cellulitis with h/o abscess s/p debridement 10. Bilateral hydrocele PLAN: 1. Vent management as per ICU team 2. DVT and GI prophylaxis and enteral feeds 3. Diuretics as needed with monitor renal function and electrolytes 4. Continue Lopressor 25 mg BID and Eliquis 5 mg BID Mary Anned Khalif Correa MD
--- NOTE | 2020-01-03 11:32 | PN ---
Teaching Attending Note Name of Resident: Justin Cardona ATTENDING PHYSICIAN STATEMENT I saw and evaluated the patient. I reviewed the resident's note and discussed the case with the resident. I agree with the resident's findings and plan as documented. SUBJECTIVE: Patient seen and examined in the ICU. Remains intubated, sedated. Off pressors. Vented on volume assist control with 65% FiO2 & PEEP 10. OBJECTIVE: Intake & Output 12/31/19 01/01/20 01/02/20 01/03/20 23:59 23:59 23:59 23:59 Intake Total 1385.6 1844.0 3635 2003 Output Total 2900 2600 1800 400 Balance -1514.4 -756.0 1835 1604 Weight 238 lb 236 lb 229 lb 3.2 oz 234 lb 14.4 oz Last Vital Signs Temp Pulse Resp BP Pulse Ox 97.8 F 78 20 116/59 L 96 01/03/20 10:00 01/03/20 11:14 01/03/20 10:00 01/03/20 11:14 01/02/20 20:31 Active Medications Albuterol/Ipratropium (Duoneb -) 1 amp NEB Q4H PRN PRN Reason: SHORTNESS OF BREATH Apixaban (Eliquis -) 5 mg PO BID [facility] Last Admin: 01/03/20 11:13 Dose: 5 mg Documented by: Ascorbic Acid (Vitamin C -) 1,000 mg PO DAILY [facility] Last Admin: 01/03/20 11:13 Dose: 1,000 mg Documented by: Chlorhexidine Gluconate (Peridex -) 15 ml MM BID [facility] Last Admin: 01/03/20 11:14 Dose: 15 ml Documented by: Hydrocortisone Sodium Succinate (Solu-Cortef -) 50 mg IVPUSH BID [facility] Last Admin: 01/03/20 11:13 Dose: 50 mg Documented by: Propofol (Diprivan -) 1,000,000 mcg in 100 mls @ 3.266 mls/hr IVPB TITR [facility]; Protocol Last Admin: 01/03/20 06:41 Dose: 20 mcg/kg/min, 13.063 mls/hr Documented by: Midazolam HCl (Midazolam 100mg/100ml-0.9%Nacl) 100 mg in 100 mls @ 1 mls/hr IVPB TITR [facility]; Protocol Last Admin: 01/03/20 06:41 Dose: 10 mg/hr, 10 mls/hr Documented by: Vasopressin 40 units/ Sodium (Chloride) 100 mls @ 5 mls/hr IVPB TITR [facility]; Protocol Last Titration: 01/03/20 11:14 Dose: 0 units/hr, 0 mls/hr Documented by: Metoprolol Tartrate (Lopressor -) 25 mg PO BID [facility] Last Admin: 01/03/20 11:13 Dose: 25 mg Documented by: Multivitamins/Minerals/Vitamin C (Tab-A-Vit -) 1 tab PO DAILY [facility] Last Admin: 01/03/20 11:13 Dose: 1 tab Documented by: Pantoprazole Sodium (Protonix Iv) 40 mg IVPUSH DAILY [facility] Last Admin: 01/03/20 11:12 Dose: 40 mg Documented by: Gen: intubated, sedated Heart: tachycardic, regular Lung: scattered rhonchi Abd: soft, +ascites Ext: Less edema Laboratory Results - last 24 hr 01/02/20 01/03/20 01/03/20 06:00 00:00 05:40 WBC 10.5 H RBC 5.92 H Hgb 13.9 Hct 49.0 MCV 82.8 MCH 23.5 L MCHC 28.4 L RDW 24.5 H Plt Count 172 MPV 11.4 H Anticoagulation Therapy Puncture Site Patient Temperature ABG pH ABG pCO2 ABG pO2 ABG HCO3 ABG O2 Sat (Measured) ABG O2 Content ABG Base Excess Ye Test Patient On Oxygen O2 Delivery Device Oxygen Flow Rate Vent Mode Vent Rate Mechanical Rate PEEP Pressure Support Vent Sodium 151 H 146 H Potassium 3.7 4.0 Chloride 105 103 Carbon Dioxide 41 H 36 H Anion Gap 6 L 7 L BUN 70.3 H 71.8 H Creatinine 0.9 1.0 Est GFR (CKD-EPI)AfAm 102.79 90.50 Est GFR (CKD-EPI)NonAf 88.69 78.08 Random Glucose 156 H 286 H Calcium 9.5 8.9 Phosphorus Magnesium Total Bilirubin AST ALT Alkaline Phosphatase Total Protein Albumin 01/03/20 01/03/20 05:40 06:00 WBC RBC Hgb Hct MCV MCH MCHC RDW Plt Count MPV Anticoagulation Therapy No Result Required. Puncture Site Arterial line Patient Temperature No Result Required. ABG pH 7.406 ABG pCO2 58.90 H ABG pO2 93.7 ABG HCO3 36.2 H ABG O2 Sat (Measured) 97.0 ABG O2 Content No Result Required. ABG Base Excess 9.1 H Ye Test No Result Required. Patient On Oxygen Yes O2 Delivery Device Vent Oxygen Flow Rate 70% Vent Mode A/c Vent Rate 18 Mechanical Rate Yes PEEP 10.0 Pressure Support Vent 450 Sodium 144 Potassium 3.7 Chloride 99 Carbon Dioxide 39 H Anion Gap 6 L BUN 72.9 H Creatinine 1.0 Est GFR (CKD-EPI)AfAm 90.50 Est GFR (CKD-EPI)NonAf 78.08 Random Glucose 317 H Calcium 8.8 Phosphorus 5.0 H Magnesium 2.7 H Total Bilirubin 5.4 H D AST 31 ALT 64 H Alkaline Phosphatase 97 Total Protein 5.8 L Albumin 2.2 L ASSESSMENT AND PLAN: Acute on Chronic Hypoxic and Hypercapneic Respiratory Failure Pneumonia ARDS Septic Shock Acute on Chronic Diastolic Heart Failure Pulmonary HTN Paroxysmal Atrial Fibrillation CAD Acute Kidney Injury Likely COPD JUANA/OHS HTN Hypercholesterolemia - continue antibiotics - off pressors, maintain MAP >65 - rate control - continue anticoagulation - low tidal volume ventilation - titrate FiO2, PEEP to keep SpO2 >90% - continue lasix - monitor urine output, creatinine - enteral feeds - DVT/GI prophylaxis - Wean trials as FiO2 & PEEP requirements improve - continue ICU monitoring May need Trach Dr Sanz Critical care time spent in reviewing chart, evaluating patient and formulating plan 35 min
--- NOTE | 2020-01-03 12:50 | PN ---
Physical Exam: SUBJECTIVE: Patient seen and examined. Afebrile. Abx d/rodriguez. Afib on eliquis. Pt will likely need trach, can benefit from it. Discussed with family and is amenable to trach. Will obtain consent OBJECTIVE: Vital Signs Period Temp Pulse Resp BP Sys/Clements Pulse Ox Last 24 Hr 96.8 F-100.3 F 59-101 18-24 56-116/38-76 95-96 GENERAL: sedated, vented EYES: Pupils equal, round and reactive to light, extraocular movements intact, sclera anicteric, conjunctiva clear. No lid lag. EARS, NOSE, THROAT: dry, mucous membranes. LUNGS: Breath sounds equal, clear to auscultation bilaterally. No wheezes, and no crackles. on Vent HEART: Regular rate and rhythm, normal S1 and S2 without murmur, rub or gallop. ABDOMEN: Soft, nontender, not distended, normoactive bowel sounds, no guarding, no rebound, no masses. UPPER EXTREMITIES: 2+ pulses, warm, well-perfused. No cyanosis. No peripheral edema. LOWER EXTREMITIES: 2+ pulses, warm, well-perfused. No calf tenderness. No peripheral edema. SKIN: Warm, dry, normal turgor, no rashes or lesions noted. Laboratory Results - last 24 hr 01/02/20 01/03/20 01/03/20 06:00 00:00 05:40 WBC 10.5 H RBC 5.92 H Hgb 13.9 Hct 49.0 MCV 82.8 MCH 23.5 L MCHC 28.4 L RDW 24.5 H Plt Count 172 MPV 11.4 H Anticoagulation Therapy Puncture Site Patient Temperature ABG pH ABG pCO2 ABG pO2 ABG HCO3 ABG O2 Sat (Measured) ABG O2 Content ABG Base Excess Ye Test Patient On Oxygen O2 Delivery Device Oxygen Flow Rate Vent Mode Vent Rate Mechanical Rate PEEP Pressure Support Vent Sodium 151 H 146 H Potassium 3.7 4.0 Chloride 105 103 Carbon Dioxide 41 H 36 H Anion Gap 6 L 7 L BUN 70.3 H 71.8 H Creatinine 0.9 1.0 Est GFR (CKD-EPI)AfAm 102.79 90.50 Est GFR (CKD-EPI)NonAf 88.69 78.08 Random Glucose 156 H 286 H Calcium 9.5 8.9 Phosphorus Magnesium Total Bilirubin AST ALT Alkaline Phosphatase Total Protein Albumin 01/03/20 01/03/20 05:40 06:00 WBC RBC Hgb Hct MCV MCH MCHC RDW Plt Count MPV Anticoagulation Therapy No Result Required. Puncture Site Arterial line Patient Temperature No Result Required. ABG pH 7.406 ABG pCO2 58.90 H ABG pO2 93.7 ABG HCO3 36.2 H ABG O2 Sat (Measured) 97.0 ABG O2 Content No Result Required. ABG Base Excess 9.1 H Ye Test No Result Required. Patient On Oxygen Yes O2 Delivery Device Vent Oxygen Flow Rate 70% Vent Mode A/c Vent Rate 18 Mechanical Rate Yes PEEP 10.0 Pressure Support Vent 450 Sodium 144 Potassium 3.7 Chloride 99 Carbon Dioxide 39 H Anion Gap 6 L BUN 72.9 H Creatinine 1.0 Est GFR (CKD-EPI)AfAm 90.50 Est GFR (CKD-EPI)NonAf 78.08 Random Glucose 317 H Calcium 8.8 Phosphorus 5.0 H Magnesium 2.7 H Total Bilirubin 5.4 H D AST 31 ALT 64 H Alkaline Phosphatase 97 Total Protein 5.8 L Albumin 2.2 L Active Medications Generic Name Dose Route Start Last Admin Trade Name Freq PRN Reason Stop Dose Admin Albuterol/Ipratropium 1 amp 12/26/19 11:46 Duoneb - NEB Q4H PRN SHORTNESS OF BREATH Apixaban 5 mg 12/16/19 22:00 01/03/20 11:13 Eliquis - PO 5 mg BID [facility] Administration Ascorbic Acid 1,000 mg 12/17/19 10:00 01/03/20 11:13 Vitamin C - PO 1,000 mg DAILY [facility] Administration Chlorhexidine Gluconate 15 ml 12/22/19 12:30 01/03/20 11:14 Peridex - MM 15 ml BID [facility] Administration Hydrocortisone Sodium Succinate 50 mg 12/31/19 22:00 01/03/20 11:13 Solu-Cortef - IVPUSH 50 mg BID [facility] Administration Propofol 1,000,000 mcg in 100 mls @ 3.266 mls/hr 12/17/19 04:30 01/03/20 06:41 Diprivan - IVPB 20 mcg/kg/min TITR [facility] 13.063 mls/hr Administration Protocol 5 MCG/KG/MIN Midazolam HCl 100 mg in 100 mls @ 1 mls/hr 12/22/19 08:00 01/03/20 06:41 Midazolam 100mg/100ml-0.9%Nacl IVPB 10 mg/hr TITR [facility] 10 mls/hr Administration Protocol 1 MG/HR Vasopressin 40 units/ Sodium 100 mls @ 5 mls/hr 01/02/20 17:30 01/03/20 11:14 Chloride IVPB 0 units/hr TITR [facility] 0 mls/hr Titration Protocol 2 UNITS/HR Metoprolol Tartrate 25 mg 12/19/19 12:00 01/03/20 11:13 Lopressor - PO 25 mg BID [facility] Administration Multivitamins/Minerals/Vitamin C 1 tab 12/17/19 10:00 01/03/20 11:13 Tab-A-Vit - PO 1 tab DAILY [facility] Administration Pantoprazole Sodium 40 mg 12/19/19 10:00 01/03/20 11:12 Protonix Iv IVPUSH 40 mg DAILY [facility] Administration ASSESSMENT/PLAN: 64 year old male with a past medical history of HTN, HLD, JUANA (not using CPAP), COPD, GERD, systolic congestive heart failure, paroxysmal atrial fibrillation (on Eliquis, s/p cardioversion 11/2016) who presented with 3 weeks of gradual onset anasarca, scrotal swelling and mild shortness of breath worse on exertion, found to have right lobe PNA, fluid overload, bilateral lower extremity cellulitis and bilateral hydrocele, and respiratory acidosis is admitted for Acute hypercapneic respiratory failure and Acute CHF exacerbation #Neuro Pt sedated and vented versed 10, prop 20, vaso1 #CV Fluid Overload 2/2 sCHF exacerbation, CXR- with small right and left pleural effusion monitor renal studies, electrolytes, strict I&O's and daily weights Clinical signs of severe volume overload- anasarca, b/l LE edema- Improved Cardiology following on lisinopril- hold until peter improves cont metoprolol 25 BID Pt on eliquis vaso 1 #Pulm Acute hypercapneic resp failure 2/2 to Community acquired pneumonia vs COPD exacerbation CXR: slightly improved ABG showed 7.4/58.9/93/36.2 AC 16/450/65/10 Plat 20, PIP 25, --- wean FiO2 down Hydrocortisone 50 BID, can taper to daily #ID Bilateral Lower Extremity Cellulitis abx d/rodriguez ID consulted #Renal stable s/p acetazolamide Lasix 40 daily, check response [id number], [id number] Azotemia likely 2/2 to steriod vs protein intake vs GI bleed- monitor bleeds Hypernatremia resolved, free water d/rodriguez free water with feeds 20 cc #GI Anasarca- improved cont diuresis #Heme monitor will monitor for now #DVT ppx On eliquis #GI ppx protonix Lines LUE A-line 12/20 [facility]J 12/26 ET 7.5 FEN monitor lytes Fluid restrictions cont feeds Aspiration risk Dispo: monitor I&Os, vent pressures improved, pt heading towards wean trial, will reassess. Mothers # [phone] -cell, -Home As per brother Ady, would like to be updated as opposed to his mother Visit type - Emergency Visit Emergency Visit: Yes ED Registration Date: 12/16/19 Care time: The patient presented to the Emergency Department on the above date and was hospitalized for further evaluation of their emergent condition. - New Patient This patient is new to me today: Yes Date on this admission: 01/03/20 - Critical Care Critical Care patient: No - Discharge Referral Referred to [facility] No ATTENDING PHYSICIAN STATEMENT I saw and evaluated the patient. I reviewed the resident's note and discussed the case with the resident. I agree with the resident's findings and plan as documented. SUBJECTIVE: OBJECTIVE: ASSESSMENT AND PLAN:
--- NOTE | 2020-01-03 15:18 | PN ---
Progress Note, Physician History of Present Illness: continues to be intubated no new issues - Current Medication List Current Medications: Active Medications Albuterol/Ipratropium (Duoneb -) 1 amp NEB Q4H PRN PRN Reason: SHORTNESS OF BREATH Apixaban (Eliquis -) 5 mg PO BID [facility] Last Admin: 01/03/20 11:13 Dose: 5 mg Documented by: Ascorbic Acid (Vitamin C -) 1,000 mg PO DAILY [facility] Last Admin: 01/03/20 11:13 Dose: 1,000 mg Documented by: Chlorhexidine Gluconate (Peridex -) 15 ml MM BID [facility] Last Admin: 01/03/20 11:14 Dose: 15 ml Documented by: Hydrocortisone Sodium Succinate (Solu-Cortef -) 50 mg IVPUSH BID [facility] Last Admin: 01/03/20 11:13 Dose: 50 mg Documented by: Propofol (Diprivan -) 1,000,000 mcg in 100 mls @ 3.266 mls/hr IVPB TITR [facility]; Protocol Last Admin: 01/03/20 06:41 Dose: 20 mcg/kg/min, 13.063 mls/hr Documented by: Midazolam HCl (Midazolam 100mg/100ml-0.9%Nacl) 100 mg in 100 mls @ 1 mls/hr IVPB TITR [facility]; Protocol Last Admin: 01/03/20 06:41 Dose: 10 mg/hr, 10 mls/hr Documented by: Vasopressin 40 units/ Sodium (Chloride) 100 mls @ 5 mls/hr IVPB TITR [facility]; Protocol Last Titration: 01/03/20 11:14 Dose: 0 units/hr, 0 mls/hr Documented by: Metoprolol Tartrate (Lopressor -) 25 mg PO BID [facility] Last Admin: 01/03/20 11:13 Dose: 25 mg Documented by: Multivitamins/Minerals/Vitamin C (Tab-A-Vit -) 1 tab PO DAILY [facility] Last Admin: 01/03/20 11:13 Dose: 1 tab Documented by: Pantoprazole Sodium (Protonix Iv) 40 mg IVPUSH DAILY [facility] Last Admin: 01/03/20 11:12 Dose: 40 mg Documented by: - Objective Vital Signs: Vital Signs Temperature 97.8 F 01/03/20 10:00 Pulse Rate 61 01/03/20 13:30 Respiratory Rate 18 01/03/20 14:21 Blood Pressure 116/59 L 01/03/20 11:14 O2 Sat by Pulse Oximetry (%) 95 01/03/20 14:21 Constitutional: Yes: Other Respiratory: Yes: Intubated, Mechanically Ventilated Gastrointestinal: Yes: Normal Bowel Sounds, Soft Genitourinary: Yes: Hilario Present Musculoskeletal: Yes: WNL Extremities: Yes: WNL Labs: CBC, BMP 01/03/20 05:40 01/03/20 05:40 INR, PTT INR 1.34 (0.83-1.09) H 12/16/19 18:40 - ....Imaging Chest X-ray: Report Reviewed, Image Reviewed Assessment/Plan 64 year old male with a past medical history of HTN, HLD, JUANA (not using CPAP), COPD, GERD, systolic congestive heart failure, paroxysmal atrial fibrillation (on Eliquis, s/p cardioversion 11/2016) who presented with 3 weeks of gradual onset anasarca, scrotal swelling and mild shortness of breath worse on exertion. He as found to have a PNA, on clinical exam signs of fluid overload, ?bilateral lower extremity cellulitis and bilateral hydrocele. 1. Acute Respiratory Failure 2. Fluid Overload/ 3.Bilateral Lower Extremity Cellulitis 4. Hydrocele 5. Hypertension 6. Atrial Fibrillation 7. Elevated Troponin 8. Rule Out COVID 9 pna plan cx reports noted monitor fevers icu mgmt vent mgmt res as per icu abx stopped patient still unable to be extubated might need a trach cc 38 min
[2020-01-03] MEDS ORDERED: VASOPRESSIN 20 UNITS/ML VIAL IV ONE (16:04)
--- NOTE | 2020-01-03 18:36 | PN ---
Progress Note, Physician History of Present Illness: Pt seen and examined at bedside. He remains in the ICU. He remain intubated. He is making urine. - Current Medication List Current Medications: Active Medications Albuterol/Ipratropium (Duoneb -) 1 amp NEB Q4H PRN PRN Reason: SHORTNESS OF BREATH Apixaban (Eliquis -) 5 mg PO BID REPLACED BY [facility] Last Admin: 01/03/20 11:13 Dose: 5 mg Documented by: Ascorbic Acid (Vitamin C -) 1,000 mg PO DAILY [facility] Last Admin: 01/03/20 11:13 Dose: 1,000 mg Documented by: Chlorhexidine Gluconate (Peridex -) 15 ml MM BID [facility] Last Admin: 01/03/20 11:14 Dose: 15 ml Documented by: Hydrocortisone Sodium Succinate (Solu-Cortef -) 50 mg IVPUSH BID REPLACED BY [facility] Last Admin: 01/03/20 11:13 Dose: 50 mg Documented by: Propofol (Diprivan -) 1,000,000 mcg in 100 mls @ 3.266 mls/hr IVPB TITR REPLACED BY [facility]; Protocol Last Admin: 01/03/20 06:41 Dose: 20 mcg/kg/min, 13.063 mls/hr Documented by: Midazolam HCl (Midazolam 100mg/100ml-0.9%Nacl) 100 mg in 100 mls @ 1 mls/hr IVPB TITR REPLACED BY [facility]; Protocol Last Admin: 01/03/20 06:41 Dose: 10 mg/hr, 10 mls/hr Documented by: Vasopressin 40 units/ Sodium (Chloride) 100 mls @ 5 mls/hr IVPB TITR [facility]; Protocol Last Titration: 01/03/20 11:14 Dose: 0 units/hr, 0 mls/hr Documented by: Metoprolol Tartrate (Lopressor -) 25 mg PO BID [facility] Last Admin: 01/03/20 11:13 Dose: 25 mg Documented by: Multivitamins/Minerals/Vitamin C (Tab-A-Vit -) 1 tab PO DAILY [facility] Last Admin: 01/03/20 11:13 Dose: 1 tab Documented by: Pantoprazole Sodium (Protonix Iv) 40 mg IVPUSH DAILY REPLACED BY [facility] Last Admin: 01/03/20 11:12 Dose: 40 mg Documented by: - Objective Vital Signs: Vital Signs Temperature 96.6 F L 01/03/20 16:00 Pulse Rate 62 01/03/20 18:00 Respiratory Rate 18 01/03/20 18:00 Blood Pressure 111/64 01/03/20 18:00 O2 Sat by Pulse Oximetry (%) 100 01/03/20 17:34 Constitutional: Yes: Calm Eyes: Yes: Conjunctiva Clear HENT: Yes: Atraumatic Neck: Yes: Supple Cardiovascular: Yes: S1, S2 Respiratory: Yes: Mechanically Ventilated Gastrointestinal: Yes: Soft, Abdomen, Obese Genitourinary: Yes: Hilario Present Musculoskeletal: Yes: Muscle Weakness Edema: Yes Edema: LLE: Trace, RLE: Trace Integumentary: Yes: Venous Stasis Changes Neurological: Yes: Lethargy Labs: CBC, BMP 01/03/20 05:40 01/03/20 05:40 INR, PTT INR 1.34 (0.83-1.09) H 12/16/19 18:40 - ....Imaging Chest X-ray: Report Reviewed Problem List - Problems (1) Anasarca Code(s): R60.1 - GENERALIZED EDEMA (2) Congestive heart failure (CHF) Code(s): I50.9 - HEART FAILURE, UNSPECIFIED Qualifiers: Heart failure type: diastolic Heart failure chronicity: acute on chronic Qualified Code(s): I50.33 - Acute on chronic diastolic (congestive) heart failure (3) Acute kidney injury Code(s): N17.9 - ACUTE KIDNEY FAILURE, UNSPECIFIED Assessment/Plan Current Medications Generic Name Dose Route Start Last Admin Trade Name Freq PRN Reason Stop Dose Admin Albuterol/Ipratropium 1 amp 12/26/19 11:46 Duoneb - NEB Q4H PRN SHORTNESS OF BREATH Apixaban 5 mg 12/16/19 22:00 01/03/20 11:13 Eliquis - PO 5 mg BID [facility] Administration Ascorbic Acid 1,000 mg 12/17/19 10:00 01/03/20 11:13 Vitamin C - PO 1,000 mg DAILY [facility] Administration Chlorhexidine Gluconate 15 ml 12/22/19 12:30 01/03/20 11:14 Peridex - MM 15 ml BID [facility] Administration Hydrocortisone Sodium Succinate 50 mg 12/31/19 22:00 01/03/20 11:13 Solu-Cortef - IVPUSH 50 mg BID [facility] Administration Propofol 1,000,000 mcg in 100 mls @ 3.266 mls/hr 12/17/19 04:30 01/03/20 06:41 Diprivan - IVPB 20 mcg/kg/min TITR [facility] 13.063 mls/hr Administration Protocol 5 MCG/KG/MIN Midazolam HCl 100 mg in 100 mls @ 1 mls/hr 12/22/19 08:00 01/03/20 06:41 Midazolam 100mg/100ml-0.9%Nacl IVPB 10 mg/hr TITR [facility] 10 mls/hr Administration Protocol 1 MG/HR Vasopressin 40 units/ Sodium 100 mls @ 5 mls/hr 01/02/20 17:30 01/03/20 11:14 Chloride IVPB 0 units/hr TITR [facility] 0 mls/hr Titration Protocol 2 UNITS/HR Metoprolol Tartrate 25 mg 12/19/19 12:00 01/03/20 11:13 Lopressor - PO 25 mg BID [facility] Administration Multivitamins/Minerals/Vitamin C 1 tab 12/17/19 10:00 01/03/20 11:13 Tab-A-Vit - PO 1 tab DAILY [facility] Administration Pantoprazole Sodium 40 mg 12/19/19 10:00 01/03/20 11:12 Protonix Iv IVPUSH 40 mg DAILY [facility] Administration Impression 1. MONIE 2. CHF acute 3. acute resp failure requiring intubation 4. atrial fibrillation 5. hx of htn 6. obesity 7. chronic smoker 8. hypokalemia Plan - sodium improved - cont vent support - pressors to map 65 - will evaluate for lasix tomorrow - monitor abd - cxr show improvement - cont ICU care - volume status improved - renal function stable - cont to monitor bun - will follow - discussed with ICU team - monitor sodium levels
[2020-01-03] MEDS: VASOPRESSIN 40 UNITS in SODIUM CHLORIDE 98 ML IVPB SCH (19:15)
[2020-01-04 06:29] LABS: HEMATOCRIT 47.1 % (35.4-49); HEMOGLOBIN 13.2 GM/dL (11.7-16.9); MCH 23.1 pg (25.7-33.7); MCHC 28.1 g/dl (32.0-35.9); MEAN CELL VOLUME 82.1 fl (80-96); MEAN PLT VOLUME 10.9 fl (7.5-11.1); PLATELET COUNT 164 K/MM3 (134-434); RBC 5.73 M/mm3 (4.00-5.60); RDW 23.6 % (11.9-15.9); WHITE BLOOD COUNT 9.2 K/mm3 (4.0-10.0)
[2020-01-04 07:02] LABS: BLOOD UREA NITROGEN 56.7 mg/dL (7-18); CALCIUM 9.2 mg/dL (8.5-10.1); MAGNESIUM 2.4 mg/dL (1.8-2.4); PHOSPHOROUS 3.4 mg/dL (2.5-4.9); POTASSIUM 3.2 mmol/L (3.5-5.1)
[2020-01-04 07:11] LABS: CREATININE 0.7 mg/dL (0.55-1.3)
[2020-01-04] MEDS ORDERED: POTASSIUM CHLORIDE ORAL LIQUID 20 MEQ/15 ML PO ONE (09:00)
[2020-01-04] MEDS: HYDROCORTISONE SOD SUCCINATE 100 MG/2 ML VIAL IVPUSH SCH ×2 (09:26→22:36)
[2020-01-04] MEDS: CHLORHEXIDINE GLUCONATE 0.12% 15ML CUP MM SCH ×2 (09:26→22:36)
[2020-01-04] MEDS: KCL 10 MEQ IVPB 10 MEQ/100 ML INFUS.BAG IVPB SCH ×3 (09:26→13:30)
[2020-01-04] MEDS: PANTOPRAZOLE SODIUM 40 MG VIAL IVPUSH SCH (09:27)
[2020-01-04] MEDS: METOPROLOL TARTRATE 25 MG TABLET (FP) PO SCH ×2 (10:35→22:36)
[2020-01-04] MEDS: ASCORBIC ACID 500 MG TABLET (FP) PO SCH (10:35)
[2020-01-04] MEDS: APIXABAN 5 MG TABLET PO SCH ×2 (10:35→22:36)
[2020-01-04] MEDS: MULTIVITAMINS (DAILY MVI) TABLET (FP) PO SCH (10:35)
--- NOTE | 2020-01-04 11:28 | PN ---
Teaching Attending Note Name of Resident: Lily Hernandez ATTENDING PHYSICIAN STATEMENT I saw and evaluated the patient. I reviewed the resident's note and discussed the case with the resident. I agree with the resident's findings and plan as documented. SUBJECTIVE: Patient seen and examined in the ICU. Remains intubated, sedated. Off pressors. Vented on volume assist control with 60% FiO2 & PEEP 10. OBJECTIVE: Intake & Output 01/01/20 01/02/20 01/03/20 01/04/20 23:59 23:59 23:59 23:59 Intake Total 1844.0 3635 2353 468 Output Total 2600 1800 1625 450 Balance -756.0 1835 728 18 Weight 236 lb 229 lb 3.2 oz 234 lb 14.4 oz 232 lb Last Vital Signs Temp Pulse Resp BP Pulse Ox 99.0 F 73 18 104/67 91 L 01/04/20 08:00 01/04/20 08:00 01/04/20 08:00 01/04/20 08:00 01/04/20 08:00 Active Medications Albuterol/Ipratropium (Duoneb -) 1 amp NEB Q4H PRN PRN Reason: SHORTNESS OF BREATH Apixaban (Eliquis -) 5 mg PO BID [facility] Last Admin: 01/04/20 10:35 Dose: 5 mg Documented by: Ascorbic Acid (Vitamin C -) 1,000 mg PO DAILY [facility] Last Admin: 01/04/20 10:35 Dose: 1,000 mg Documented by: Chlorhexidine Gluconate (Peridex -) 15 ml MM BID [facility] Last Admin: 01/04/20 09:26 Dose: 15 ml Documented by: Hydrocortisone Sodium Succinate (Solu-Cortef -) 50 mg IVPUSH BID [facility] Last Admin: 01/04/20 09:26 Dose: 50 mg Documented by: Propofol (Diprivan -) 1,000,000 mcg in 100 mls @ 3.266 mls/hr IVPB TITR [facility]; Protocol Last Titration: 01/04/20 08:23 Dose: 10 mcg/kg/min, 6.532 mls/hr Documented by: Midazolam HCl (Midazolam 100mg/100ml-0.9%Nacl) 100 mg in 100 mls @ 1 mls/hr IVPB TITR [facility]; Protocol Last Infusion: 01/04/20 08:23 Dose: 5 mg/hr, 5 mls/hr Documented by: Vasopressin 40 units/ Sodium (Chloride) 100 mls @ 5 mls/hr IVPB TITR [facility]; Protocol Last Admin: 01/03/20 19:15 Dose: Not Given Documented by: Potassium Chloride (Potassium Chloride 10 Meq Premix Ivpb -) 10 meq in 100 mls @ 100 mls/hr IVPB Q60M [facility] Stop: 01/04/20 11:59 Last Admin: 01/04/20 10:34 Dose: 100 mls/hr Documented by: Metoprolol Tartrate (Lopressor -) 25 mg PO BID [facility] Last Admin: 01/04/20 10:35 Dose: 25 mg Documented by: Multivitamins/Minerals/Vitamin C (Tab-A-Vit -) 1 tab PO DAILY [facility] Last Admin: 01/04/20 10:35 Dose: 1 tab Documented by: Pantoprazole Sodium (Protonix Iv) 40 mg IVPUSH DAILY [facility] Last Admin: 01/04/20 09:27 Dose: 40 mg Documented by: Gen: intubated, sedated Heart: tachycardic, regular Lung: scattered rhonchi Abd: soft, +ascites Ext: Less edema Laboratory Results - last 24 hr 01/04/20 01/04/20 05:20 05:20 WBC 9.2 RBC 5.73 H Hgb 13.2 Hct 47.1 MCV 82.1 MCH 23.1 L MCHC 28.1 L RDW 23.6 H Plt Count 164 MPV 10.9 Sodium 147 H Potassium 3.2 L Chloride 102 Carbon Dioxide 39 H Anion Gap 6 L BUN 56.7 H Creatinine 0.7 Est GFR (CKD-EPI)AfAm 113.98 Est GFR (CKD-EPI)NonAf 98.34 Random Glucose 152 H Calcium 9.2 Phosphorus 3.4 Magnesium 2.4 ASSESSMENT AND PLAN: Acute on Chronic Hypoxic and Hypercapneic Respiratory Failure Pneumonia ARDS Septic Shock Acute on Chronic Diastolic Heart Failure Pulmonary HTN Paroxysmal Atrial Fibrillation CAD Acute Kidney Injury Likely COPD JUANA/OHS HTN Hypercholesterolemia - continue antibiotics - off pressors, maintain MAP >65 - rate control - continue anticoagulation - low tidal volume ventilation - titrate FiO2, PEEP to keep SpO2 >90% - continue lasix - monitor urine output, creatinine - enteral feeds - DVT/GI prophylaxis - Wean trials as FiO2 & PEEP requirements improve - continue ICU monitoring May need Trach Dr Sanz Critical care time spent in reviewing chart, evaluating patient and formulating plan 35 min
--- NOTE | 2020-01-04 11:37 | PN ---
Progress Note, Physician History of Present Illness: 64 year old male with a past medical history of HTN, HLD, JUANA (not using CPAP), COPD, GERD, systolic congestive heart failure, paroxysmal atrial fibrillation (on Eliquis, s/p cardioversion 11/2016) who presented with 3 weeks of gradual onset anasarca, scrotal swelling and mild shortness of breath worse on exertion. CXR s/f diffused bilat opacities with c/f PNA +/-fluid overload, ?bilateral l ower extremity cellulitis and bilateral hydrocele, and respiratory acidosis is admitted for Acute hypercapneic respiratory failure and Acute CHF exacerbation, intubated for progressive hypercarbic respiratory failure, decreased mental status on BiPAP. 01/04/2020 Remains intubated and sedated, off pressors. Vented on volume assist control with 60% FiO2, PEEP 10. Afebrile. - Current Medication List Current Medications: Active Medications Albuterol/Ipratropium (Duoneb -) 1 amp NEB Q4H PRN PRN Reason: SHORTNESS OF BREATH Apixaban (Eliquis -) 5 mg PO BID [facility] Last Admin: 01/04/20 10:35 Dose: 5 mg Documented by: Ascorbic Acid (Vitamin C -) 1,000 mg PO DAILY [facility] Last Admin: 01/04/20 10:35 Dose: 1,000 mg Documented by: Chlorhexidine Gluconate (Peridex -) 15 ml MM BID [facility] Last Admin: 01/04/20 09:26 Dose: 15 ml Documented by: Hydrocortisone Sodium Succinate (Solu-Cortef -) 50 mg IVPUSH BID [facility] Last Admin: 01/04/20 09:26 Dose: 50 mg Documented by: Propofol (Diprivan -) 1,000,000 mcg in 100 mls @ 3.266 mls/hr IVPB TITR [facility]; Protocol Last Titration: 01/04/20 08:23 Dose: 10 mcg/kg/min, 6.532 mls/hr Documented by: Midazolam HCl (Midazolam 100mg/100ml-0.9%Nacl) 100 mg in 100 mls @ 1 mls/hr IVPB TITR [facility]; Protocol Last Infusion: 01/04/20 08:23 Dose: 5 mg/hr, 5 mls/hr Documented by: Vasopressin 40 units/ Sodium (Chloride) 100 mls @ 5 mls/hr IVPB TITR [facility]; Protocol Last Admin: 01/03/20 19:15 Dose: Not Given Documented by: Potassium Chloride (Potassium Chloride 10 Meq Premix Ivpb -) 10 meq in 100 mls @ 100 mls/hr IVPB Q60M [facility] Stop: 01/04/20 11:59 Last Admin: 01/04/20 10:34 Dose: 100 mls/hr Documented by: Metoprolol Tartrate (Lopressor -) 25 mg PO BID [facility] Last Admin: 01/04/20 10:35 Dose: 25 mg Documented by: Multivitamins/Minerals/Vitamin C (Tab-A-Vit -) 1 tab PO DAILY [facility] Last Admin: 01/04/20 10:35 Dose: 1 tab Documented by: Pantoprazole Sodium (Protonix Iv) 40 mg IVPUSH DAILY [facility] Last Admin: 01/04/20 09:27 Dose: 40 mg Documented by: - Objective Vital Signs: Vital Signs Temperature 99.0 F 01/04/20 08:00 Pulse Rate 73 01/04/20 08:00 Respiratory Rate 18 01/04/20 09:00 Blood Pressure 104/67 01/04/20 08:00 O2 Sat by Pulse Oximetry (%) 91 L 01/04/20 09:00 Constitutional: Yes: Other (Sedated and intubated) Cardiovascular: Yes: Regular Rate and Rhythm Respiratory: Yes: Intubated, Mechanically Ventilated, Rhonchi Gastrointestinal: Yes: Normal Bowel Sounds, Soft Genitourinary: Yes: Hilario Present Edema: Yes Labs: CBC, BMP 01/04/20 05:20 01/04/20 05:20 INR, PTT INR 1.34 (0.83-1.09) H 12/16/19 18:40 Problem List - Problems (1) Congestive heart failure (CHF) Code(s): I50.9 - HEART FAILURE, UNSPECIFIED Qualifiers: Heart failure type: diastolic Heart failure chronicity: acute on chronic Qualified Code(s): I50.33 - Acute on chronic diastolic (congestive) heart failure (2) Pneumonia Code(s): J18.9 - PNEUMONIA, UNSPECIFIED ORGANISM Qualifiers: Pneumonia type: due to unspecified organism Laterality: right Lung location: lower lobe of lung Qualified Code(s): J18.9 - Pneumonia, unspecified organism (3) Acute on chronic diastolic (congestive) heart failure Code(s): I50.33 - ACUTE ON CHRONIC DIASTOLIC (CONGESTIVE) HEART FAILURE (4) Acute respiratory failure with hypoxia and hypercarbia Code(s): J96.01 - ACUTE RESPIRATORY FAILURE WITH HYPOXIA; J96.02 - ACUTE RESPIRATORY FAILURE WITH HYPERCAPNIA (5) Atrial fibrillation Code(s): I48.91 - UNSPECIFIED ATRIAL FIBRILLATION Qualifiers: Atrial fibrillation type: paroxysmal Qualified Code(s): I48.0 - Paroxysmal atrial fibrillation (6) COPD (chronic obstructive pulmonary disease) Code(s): J44.9 - CHRONIC OBSTRUCTIVE PULMONARY DISEASE, UNSPECIFIED Qualifiers: COPD type: unspecified COPD Qualified Code(s): J44.9 - Chronic obstructive pulmonary disease, unspecified (7) Hypertension Code(s): I10 - ESSENTIAL (PRIMARY) HYPERTENSION Qualifiers: Hypertension type: essential hypertension Qualified Code(s): I10 - Essential (primary) hypertension (8) Lymphedema of both lower extremities Code(s): I89.0 - LYMPHEDEMA, NOT ELSEWHERE CLASSIFIED (9) Pleural effusion Code(s): J90 - PLEURAL EFFUSION, NOT ELSEWHERE CLASSIFIED Assessment/Plan 10/26/2017 Normal LV size with mild LVH, normal LV fxn, normal RV size and fxn, mild LAE, mild MR, mild-mod TR, mild [place], RVSP 43 mmHg 11/19/2016 Lexiscan Myoview: Apical ischemia, LVEF 45-52% 10/06/2016 Echocardiography revealed mild to moderate LV systolic dysfunction, moderate TR, RVSP of 30-40 mmH 1. Acute on chronic Hypoxic and Hypercapneic Respiratory Failure 2. Acute on chronic LV Diastolic Heart Failure with pleural effusion 3. Pneumonia, ARDS, septic shock 4. Paroxysmal atrial fibrillation with periods of rapid ventricular response post DCCV, [id number] score of 2 5. Obstructive Sleep Apnea/OHS 6. HTN/HCVD 7. Hypercholesterolemia 8. CAD, angina pectoris 9. Bilateral cellulitis with h/o abscess s/p debridement 10. Bilateral hydrocele PLAN: 1. Vent wean as tolerated, complete antibiotic course, may need trach 2. DVT and GI prophylaxis and enteral feeds 3. Diuretics as needed with monitor renal function and electrolytes, replete K 4. Continue Lopressor 25 mg BID and Eliquis 5 mg BID
--- NOTE | 2020-01-04 11:41 | PN ---
Progress Note, Physician History of Present Illness: Pt seen and examined at bedside. He remains in the ICU. He remains intubated. - Current Medication List Current Medications: Active Medications Albuterol/Ipratropium (Duoneb -) 1 amp NEB Q4H PRN PRN Reason: SHORTNESS OF BREATH Apixaban (Eliquis -) 5 mg PO BID [facility] Last Admin: 01/04/20 10:35 Dose: 5 mg Documented by: Ascorbic Acid (Vitamin C -) 1,000 mg PO DAILY [facility] Last Admin: 01/04/20 10:35 Dose: 1,000 mg Documented by: Chlorhexidine Gluconate (Peridex -) 15 ml MM BID [facility] Last Admin: 01/04/20 09:26 Dose: 15 ml Documented by: Hydrocortisone Sodium Succinate (Solu-Cortef -) 50 mg IVPUSH BID [facility] Last Admin: 01/04/20 09:26 Dose: 50 mg Documented by: Propofol (Diprivan -) 1,000,000 mcg in 100 mls @ 3.266 mls/hr IVPB TITR [facility]; Protocol Last Titration: 01/04/20 08:23 Dose: 10 mcg/kg/min, 6.532 mls/hr Documented by: Midazolam HCl (Midazolam 100mg/100ml-0.9%Nacl) 100 mg in 100 mls @ 1 mls/hr IVPB TITR [facility]; Protocol Last Infusion: 01/04/20 08:23 Dose: 5 mg/hr, 5 mls/hr Documented by: Vasopressin 40 units/ Sodium (Chloride) 100 mls @ 5 mls/hr IVPB TITR [facility]; Protocol Last Admin: 01/03/20 19:15 Dose: Not Given Documented by: Potassium Chloride (Potassium Chloride 10 Meq Premix Ivpb -) 10 meq in 100 mls @ 100 mls/hr IVPB Q60M [facility] Stop: 01/04/20 11:59 Last Admin: 01/04/20 10:34 Dose: 100 mls/hr Documented by: Metoprolol Tartrate (Lopressor -) 25 mg PO BID [facility] Last Admin: 01/04/20 10:35 Dose: 25 mg Documented by: Multivitamins/Minerals/Vitamin C (Tab-A-Vit -) 1 tab PO DAILY [facility] Last Admin: 01/04/20 10:35 Dose: 1 tab Documented by: Pantoprazole Sodium (Protonix Iv) 40 mg IVPUSH DAILY [facility] Last Admin: 01/04/20 09:27 Dose: 40 mg Documented by: - Objective Vital Signs: Vital Signs Temperature 99.0 F 01/04/20 08:00 Pulse Rate 73 01/04/20 08:00 Respiratory Rate 18 01/04/20 09:00 Blood Pressure 104/67 01/04/20 08:00 O2 Sat by Pulse Oximetry (%) 91 L 01/04/20 09:00 Constitutional: Yes: Calm Eyes: Yes: Conjunctiva Clear HENT: Yes: Atraumatic Cardiovascular: Yes: S1, S2 Respiratory: Yes: Mechanically Ventilated Gastrointestinal: Yes: Soft, Abdomen, Obese Genitourinary: Yes: Hilario Present Musculoskeletal: Yes: Muscle Weakness Edema: Yes Neurological: Yes: Lethargy Labs: CBC, BMP 01/04/20 05:20 01/04/20 05:20 INR, PTT INR 1.34 (0.83-1.09) H 12/16/19 18:40 Problem List - Problems (1) Anasarca Code(s): R60.1 - GENERALIZED EDEMA (2) Congestive heart failure (CHF) Code(s): I50.9 - HEART FAILURE, UNSPECIFIED Qualifiers: Heart failure type: diastolic Heart failure chronicity: acute on chronic Qualified Code(s): I50.33 - Acute on chronic diastolic (congestive) heart failure (3) Acute kidney injury Code(s): N17.9 - ACUTE KIDNEY FAILURE, UNSPECIFIED Assessment/Plan Current Medications Generic Name Dose Route Start Last Admin Trade Name Freq PRN Reason Stop Dose Admin Albuterol/Ipratropium 1 amp 12/26/19 11:46 Duoneb - NEB Q4H PRN SHORTNESS OF BREATH Apixaban 5 mg 12/16/19 22:00 01/04/20 10:35 Eliquis - PO 5 mg BID [facility] Administration Ascorbic Acid 1,000 mg 12/17/19 10:00 01/04/20 10:35 Vitamin C - PO 1,000 mg DAILY [facility] Administration Chlorhexidine Gluconate 15 ml 12/22/19 12:30 01/04/20 09:26 Peridex - MM 15 ml BID [facility] Administration Hydrocortisone Sodium Succinate 50 mg 12/31/19 22:00 01/04/20 09:26 Solu-Cortef - IVPUSH 50 mg BID [facility] Administration Propofol 1,000,000 mcg in 100 mls @ 3.266 mls/hr 12/17/19 04:30 01/04/20 08:23 Diprivan - IVPB 10 mcg/kg/min TITR [facility] 6.532 mls/hr Titration Protocol 5 MCG/KG/MIN Midazolam HCl 100 mg in 100 mls @ 1 mls/hr 12/22/19 08:00 01/04/20 08:23 Midazolam 100mg/100ml-0.9%Nacl IVPB 5 mg/hr TITR [facility] 5 mls/hr Infusion Protocol 1 MG/HR Vasopressin 40 units/ Sodium 100 mls @ 5 mls/hr 01/02/20 17:30 01/03/20 19:15 Chloride IVPB Not Given TITR [facility] Protocol 2 UNITS/HR Potassium Chloride 10 meq in 100 mls @ 100 mls/hr 01/04/20 09:00 01/04/20 10:34 Potassium Chloride 10 Meq Premix Ivpb - IVPB 01/04/20 11:59 100 mls/hr Q60M [facility] Administration Metoprolol Tartrate 25 mg 12/19/19 12:00 01/04/20 10:35 Lopressor - PO 25 mg BID [facility] Administration Multivitamins/Minerals/Vitamin C 1 tab 12/17/19 10:00 01/04/20 10:35 Tab-A-Vit - PO 1 tab DAILY [facility] Administration Pantoprazole Sodium 40 mg 12/19/19 10:00 01/04/20 09:27 Protonix Iv IVPUSH 40 mg DAILY [facility] Administration Impression 1. MONIE 2. CHF acute 3. acute resp failure requiring intubation 4. atrial fibrillation 5. hx of htn 6. obesity 7. chronic smoker 8. hypokalemia Plan - replace potassium - cont vent support - lasix as needed with close monitoring of electrolytes - ph improved - discussed with ICU team - maintain map 65 - am cxr - monitor sodium levels
--- NOTE | 2020-01-04 14:18 | PN ---
Progress Note, Physician History of Present Illness: intubated being diuresed on pressors - Current Medication List Current Medications: Active Medications Albuterol/Ipratropium (Duoneb -) 1 amp NEB Q4H PRN PRN Reason: SHORTNESS OF BREATH Apixaban (Eliquis -) 5 mg PO BID [facility] Last Admin: 01/04/20 10:35 Dose: 5 mg Documented by: Ascorbic Acid (Vitamin C -) 1,000 mg PO DAILY [facility] Last Admin: 01/04/20 10:35 Dose: 1,000 mg Documented by: Chlorhexidine Gluconate (Peridex -) 15 ml MM BID [facility] Last Admin: 01/04/20 09:26 Dose: 15 ml Documented by: Hydrocortisone Sodium Succinate (Solu-Cortef -) 50 mg IVPUSH BID [facility] Last Admin: 01/04/20 09:26 Dose: 50 mg Documented by: Propofol (Diprivan -) 1,000,000 mcg in 100 mls @ 3.266 mls/hr IVPB TITR [facility]; Protocol Last Titration: 01/04/20 08:23 Dose: 10 mcg/kg/min, 6.532 mls/hr Documented by: Midazolam HCl (Midazolam 100mg/100ml-0.9%Nacl) 100 mg in 100 mls @ 1 mls/hr IVPB TITR [facility]; Protocol Last Infusion: 01/04/20 08:23 Dose: 5 mg/hr, 5 mls/hr Documented by: Vasopressin 40 units/ Sodium (Chloride) 100 mls @ 5 mls/hr IVPB TITR [facility]; Protocol Last Admin: 01/03/20 19:15 Dose: Not Given Documented by: Metoprolol Tartrate (Lopressor -) 25 mg PO BID [facility] Last Admin: 01/04/20 10:35 Dose: 25 mg Documented by: Multivitamins/Minerals/Vitamin C (Tab-A-Vit -) 1 tab PO DAILY [facility] Last Admin: 01/04/20 10:35 Dose: 1 tab Documented by: Pantoprazole Sodium (Protonix Iv) 40 mg IVPUSH DAILY [facility] Last Admin: 01/04/20 09:27 Dose: 40 mg Documented by: - Objective Vital Signs: Vital Signs Temperature 98.3 F 01/04/20 12:00 Pulse Rate 68 01/04/20 12:00 Respiratory Rate 18 01/04/20 13:02 Blood Pressure 104/65 01/04/20 12:00 O2 Sat by Pulse Oximetry (%) 95 01/04/20 13:02 Constitutional: Yes: Other Cardiovascular: Yes: S1, S2 Respiratory: Yes: Intubated, Mechanically Ventilated Gastrointestinal: Yes: Normal Bowel Sounds, Other (ng in place) Musculoskeletal: Yes: WNL Extremities: Yes: WNL Neurological: Yes: Other Labs: CBC, BMP 01/04/20 05:20 01/04/20 05:20 INR, PTT INR 1.34 (0.83-1.09) H 12/16/19 18:40 Assessment/Plan 64 year old male with a past medical history of HTN, HLD, JUANA (not using CPAP), COPD, GERD, systolic congestive heart failure, paroxysmal atrial fibrillation (on Eliquis, s/p cardioversion 11/2016) who presented with 3 weeks of gradual onset anasarca, scrotal swelling and mild shortness of breath worse on exertion. He as found to have a PNA, on clinical exam signs of fluid overload, ?bilateral lower extremity cellulitis and bilateral hydrocele. 1. Acute Respiratory Failure 2. Fluid Overload/ 3.Bilateral Lower Extremity Cellulitis 4. Hydrocele 5. Hypertension 6. Atrial Fibrillation 7. Elevated Troponin 8. Rule Out COVID 9 pna plan diuresis continue abx monitor fevers icu mgmt vent mgmt res as per icu pressors as needed aspiration precautions cc 38 min
--- NOTE | 2020-01-04 20:08 | PN ---
Physical Exam: SUBJECTIVE: Patient seen and examined Was seen this morning, intubated and sedated. Patient may need trach if failure to extubate - discussed details of trach indications and procedure with patient's mother. Will obtain consent. OBJECTIVE: Vital Signs Period Temp Pulse Resp BP Sys/Clements Pulse Ox Last 24 Hr 96.6 F-99.0 F 55-83 18-19 92-110/60-68 91-97 Ventilator settings: RR 18, TV 450, FiO2 60%, PEEP 10, plateu 17 GENERAL: sedated and intubated HEAD: Normal with no signs of trauma. LUNGS: Breath sounds from vent equal, clear to auscultation bilaterally, no wheezes, no crackles. HEART: Regular rate and rhythm, S1, S2 without murmur, rub or gallop. ABDOMEN: distended, mildly rigid. EXTREMITIES: 1+ pitting edema bilaterally UE + LE NEUROLOGICAL: mildly responsive on sedation vacation SKIN: Warm, dark discoloration of shins bilaterally CXR 01/03/2020 slight improvement of residual consolidation/congestion and bilateral pleural effusions Laboratory Results - last 24 hr 01/04/20 01/04/20 05:20 05:20 WBC 9.2 RBC 5.73 H Hgb 13.2 Hct 47.1 MCV 82.1 MCH 23.1 L MCHC 28.1 L RDW 23.6 H Plt Count 164 MPV 10.9 Sodium 147 H Potassium 3.2 L Chloride 102 Carbon Dioxide 39 H Anion Gap 6 L BUN 56.7 H Creatinine 0.7 Est GFR (CKD-EPI)AfAm 113.98 Est GFR (CKD-EPI)NonAf 98.34 Random Glucose 152 H Calcium 9.2 Phosphorus 3.4 Magnesium 2.4 Active Medications Generic Name Dose Route Start Last Admin Trade Name Freq PRN Reason Stop Dose Admin Albuterol/Ipratropium 1 amp 12/26/19 11:46 Duoneb - NEB Q4H PRN SHORTNESS OF BREATH Apixaban 5 mg 12/16/19 22:00 01/04/20 10:35 Eliquis - PO 5 mg BID [facility]NETTE Administration Ascorbic Acid 1,000 mg 12/17/19 10:00 01/04/20 10:35 Vitamin C - PO 1,000 mg DAILY L[facility]NETTE Administration Chlorhexidine Gluconate 15 ml 12/22/19 12:30 01/04/20 09:26 Peridex - MM 15 ml BID [facility]NETTE Administration Hydrocortisone Sodium Succinate 50 mg 12/31/19 22:00 01/04/20 09:26 Solu-Cortef - IVPUSH 50 mg BID L[facility]NETTE Administration Propofol 1,000,000 mcg in 100 mls @ 3.266 mls/hr 12/17/19 04:30 01/04/20 08:23 Diprivan - IVPB 10 mcg/kg/min TITR [facility] 6.532 mls/hr Titration Protocol 5 MCG/KG/MIN Midazolam HCl 100 mg in 100 mls @ 1 mls/hr 12/22/19 08:00 01/04/20 08:23 Midazolam 100mg/100ml-0.9%Nacl IVPB 5 mg/hr TITR [facility] 5 mls/hr Infusion Protocol 1 MG/HR Vasopressin 40 units/ Sodium 100 mls @ 5 mls/hr 01/02/20 17:30 01/03/20 19:15 Chloride IVPB Not Given TITR [facility] Protocol 2 UNITS/HR Metoprolol Tartrate 25 mg 12/19/19 12:00 01/04/20 10:35 Lopressor - PO 25 mg BID [facility]NETTE Administration Multivitamins/Minerals/Vitamin C 1 tab 12/17/19 10:00 01/04/20 10:35 Tab-A-Vit - PO 1 tab DAILY [facility]TE Administration Pantoprazole Sodium 40 mg 12/19/19 10:00 01/04/20 09:27 Protonix Iv IVPUSH 40 mg DAILY [facility] Administration ASSESSMENT/PLAN: 64yo M with PMHx of HTN, HLD, JUANA (not using CPAP), COPD, GERD, systolic CHF, afib on eliquis (s/p cardioversion 11/2016) who presented with R lobe pneumonia, fluid overload, bilateral LE cellulitis, bilateral hydrocele, and respiratory acidosis. Admitted for acute hypercapneic respiratory failure and acute CHF exacerbation. #Neuro - sedated, intubated, on propofol and midazolam #Cardio fluid overload secondary to CHF exacerbation - Continue Lopressor 25 mg BID and Eliquis 5 mg BID - holding lisinopril until MONIE improves - continue metoprolol #Pulm acute hypercapneic respiratory failure due to CAP vs COPD exacerbation - considering trach on Thursday - consider tapering hydrocortisone 50 BID to daily #ID bilateral LE cellulitis - resolved - discontinued abx #Renal - hypernatremia improving - will continue trending #PPX - DVT: eliquis - GI: pantoprazole #FEN - tube feeds per dietary #LTD - A line discontinued - ET - [facility] 12/26 mother's cell: [phone] Home: Brother Ady: [phone] Visit type - Emergency Visit Emergency Visit: Yes ED Registration Date: 12/16/19 Care time: The patient presented to the Emergency Department on the above date and was hospitalized for further evaluation of their emergent condition. - New Patient This patient is new to me today: Yes Date on this admission: 01/04/20 - Critical Care Critical Care patient: Yes Total Critical Care Time (in minutes): 45 Critical Care Statement: The care of this patient involved high complexity decision making to prevent further life threatening deterioration of the patient 's condition and/or to evaluate & treat vital organ system(s) failure or risk of failure. ATTENDING PHYSICIAN STATEMENT I saw and evaluated the patient. I reviewed the resident's note and discussed the case with the resident. I agree with the resident's findings and plan as documented. SUBJECTIVE: OBJECTIVE: ASSESSMENT AND PLAN:
[2020-01-04] MEDS ORDERED: MIDAZOLAM 100 MG in SODIUM CHLORIDE 100 ML IVPB SCH (20:15)
[2020-01-04] MEDS: MIDAZOLAM IN 0.9 % SOD.CHLORID 100 MG/100 ML PLAST..BAG IVPB SCH ×2 (21:51→21:53)
[2020-01-04] MEDS: VASOPRESSIN 40 UNITS in SODIUM CHLORIDE 98 ML IVPB SCH (21:52)
[2020-01-04] MEDS: PROPOFOL 1,000,000 MCG/100 ML VIAL IVPB SCH (21:53)
[2020-01-05 06:53] LABS: ARTERIAL BLD GAS O2 SATURATION 97.7 mmHg (95-98); ARTERIAL BLOOD GAS BASE EXCESS 8.8 mmol/L (-2-2); ARTERIAL BLOOD GAS PO2 101.9 mmHg (80-100); ARTERIAL BLOOD GAS pH 7.439 (7.350-7.450)
[2020-01-05 07:17] LABS: ALLENS TEST POSITIVE; VENT MODE A/C; VENT RATE 18
[2020-01-05 07:46] LABS: POTASSIUM 3.6 mmol/L (3.5-5.1)
[2020-01-05 07:51] LABS: BASO % 0.1 % (0-2.0); EOS % 2.3 % (0-4.5); HEMATOCRIT 47.6 % (35.4-49); HEMOGLOBIN 13.6 GM/dL (11.7-16.9); LYMPH % 8.2 % (8-40); MCH 23.7 pg (25.7-33.7); MCHC 28.7 g/dl (32.0-35.9); MEAN CELL VOLUME 82.8 fl (80-96); MEAN PLT VOLUME 11.5 fl (7.5-11.1); MONO % 9.7 % (3.8-10.2); NEUT % 79.7 % (42.8-82.8); PLATELET COUNT 161 K/MM3 (134-434); RBC 5.75 M/mm3 (4.00-5.60); RDW 22.8 % (11.9-15.9); WHITE BLOOD COUNT 8.6 K/mm3 (4.0-10.0)
[2020-01-05 07:53] LABS: ALBUMIN 2.2 g/dl (3.4-5.0); BILIRUBIN,TOTAL 3.6 mg/dL (0.2-1); BLOOD UREA NITROGEN 46.9 mg/dL (7-18); CALCIUM 8.9 mg/dL (8.5-10.1); CREATININE 0.6 mg/dL (0.55-1.3); MAGNESIUM 2.4 mg/dL (1.8-2.4); TOT PROT 5.6 g/dl (6.4-8.2)
[2020-01-05] MEDS: PANTOPRAZOLE SODIUM 40 MG VIAL IVPUSH SCH (10:07)
[2020-01-05] MEDS: HYDROCORTISONE SOD SUCCINATE 100 MG/2 ML VIAL IVPUSH SCH ×2 (10:08→23:11)
[2020-01-05] MEDS: METOPROLOL TARTRATE 25 MG TABLET (FP) PO SCH ×2 (10:08→23:11)
[2020-01-05] MEDS: APIXABAN 5 MG TABLET PO SCH ×2 (10:08→23:11)
[2020-01-05] MEDS: MULTIVITAMINS (DAILY MVI) TABLET (FP) PO SCH (10:08)
[2020-01-05] MEDS: ASCORBIC ACID 500 MG TABLET (FP) PO SCH (10:08)
[2020-01-05] MEDS: CHLORHEXIDINE GLUCONATE 0.12% 15ML CUP MM SCH ×2 (10:08→23:11)
--- NOTE | 2020-01-05 10:22 | PN ---
Progress Note, Physician History of Present Illness: 64 year old male with a past medical history of HTN, HLD, JUANA (not using CPAP), COPD, GERD, systolic congestive heart failure, paroxysmal atrial fibrillation (on Eliquis, s/p cardioversion 11/2016) who presented with 3 weeks of gradual onset anasarca, scrotal swelling and mild shortness of breath worse on exertion. CXR s/f diffused bilat opacities with c/f PNA +/-fluid overload, ?bilateral l ower extremity cellulitis and bilateral hydrocele, and respiratory acidosis is admitted for Acute hypercapneic respiratory failure and Acute CHF exacerbation, intubated for progressive hypercarbic respiratory failure, decreased mental status on BiPAP. 01/05/2020 Remains intubated and sedated, off pressors. Vented on volume assist control with 60% FiO2, PEEP 10. Afebrile. - Current Medication List Current Medications: Active Medications Albuterol/Ipratropium (Duoneb -) 1 amp NEB Q4H PRN PRN Reason: SHORTNESS OF BREATH Apixaban (Eliquis -) 5 mg PO BID [facility] Last Admin: 01/05/20 10:08 Dose: 5 mg Documented by: Ascorbic Acid (Vitamin C -) 1,000 mg PO DAILY [facility] Last Admin: 01/05/20 10:08 Dose: 1,000 mg Documented by: Chlorhexidine Gluconate (Peridex -) 15 ml MM BID [facility] Last Admin: 01/05/20 10:08 Dose: 15 ml Documented by: Hydrocortisone Sodium Succinate (Solu-Cortef -) 50 mg IVPUSH BID [facility] Last Admin: 01/05/20 10:08 Dose: 50 mg Documented by: Propofol (Diprivan -) 1,000,000 mcg in 100 mls @ 3.266 mls/hr IVPB TITR [facility]; Protocol Last Admin: 01/04/20 21:53 Dose: Not Given Documented by: Midazolam HCl (Midazolam 100mg/100ml-0.9%Nacl) 100 mg in 100 mls @ 1 mls/hr IVPB TITR [facility]; Protocol Last Admin: 01/04/20 21:53 Dose: Not Given Documented by: Vasopressin 40 units/ Sodium (Chloride) 100 mls @ 5 mls/hr IVPB TITR [facility]; Protocol Last Admin: 01/04/20 21:52 Dose: Not Given Documented by: Metoprolol Tartrate (Lopressor -) 25 mg PO BID [facility] Last Admin: 01/05/20 10:08 Dose: 25 mg Documented by: Multivitamins/Minerals/Vitamin C (Tab-A-Vit -) 1 tab PO DAILY [facility] Last Admin: 01/05/20 10:08 Dose: 1 tab Documented by: Pantoprazole Sodium (Protonix Iv) 40 mg IVPUSH DAILY [facility] Last Admin: 01/05/20 10:07 Dose: 40 mg Documented by: - Objective Vital Signs: Vital Signs Temperature 98.0 F 01/05/20 08:00 Pulse Rate 86 01/05/20 08:28 Respiratory Rate 18 01/05/20 08:28 Blood Pressure 125/74 01/05/20 08:00 O2 Sat by Pulse Oximetry (%) 93 L 01/05/20 08:28 Constitutional: Yes: Other (Sedated and intubated) Cardiovascular: Yes: Regular Rate and Rhythm Respiratory: Yes: Intubated, Mechanically Ventilated, Rhonchi Gastrointestinal: Yes: Normal Bowel Sounds, Soft Genitourinary: Yes: Hilario Present Edema: Yes Edema: LLE: Trace, RLE: Trace Integumentary: Yes: Venous Stasis Changes Labs: CBC, BMP 01/05/20 05:00 01/05/20 05:00 INR, PTT INR 1.34 (0.83-1.09) H 12/16/19 18:40 - ....Imaging Chest X-ray: Report Reviewed (No change in congestion) Problem List - Problems (1) Congestive heart failure (CHF) Code(s): I50.9 - HEART FAILURE, UNSPECIFIED Qualifiers: Heart failure type: diastolic Heart failure chronicity: acute on chronic Qualified Code(s): I50.33 - Acute on chronic diastolic (congestive) heart failure (2) Pneumonia Code(s): J18.9 - PNEUMONIA, UNSPECIFIED ORGANISM Qualifiers: Pneumonia type: due to unspecified organism Laterality: right Lung location: lower lobe of lung Qualified Code(s): J18.9 - Pneumonia, unspecified organism (3) Acute on chronic diastolic (congestive) heart failure Code(s): I50.33 - ACUTE ON CHRONIC DIASTOLIC (CONGESTIVE) HEART FAILURE (4) Acute respiratory failure with hypoxia and hypercarbia Code(s): J96.01 - ACUTE RESPIRATORY FAILURE WITH HYPOXIA; J96.02 - ACUTE RESPIRATORY FAILURE WITH HYPERCAPNIA (5) Atrial fibrillation Code(s): I48.91 - UNSPECIFIED ATRIAL FIBRILLATION Qualifiers: Atrial fibrillation type: paroxysmal Qualified Code(s): I48.0 - Paroxysmal atrial fibrillation (6) COPD (chronic obstructive pulmonary disease) Code(s): J44.9 - CHRONIC OBSTRUCTIVE PULMONARY DISEASE, UNSPECIFIED Qualifiers: COPD type: unspecified COPD Qualified Code(s): J44.9 - Chronic obstructive pulmonary disease, unspecified (7) Hypertension Code(s): I10 - ESSENTIAL (PRIMARY) HYPERTENSION Qualifiers: Hypertension type: essential hypertension Qualified Code(s): I10 - Essential (primary) hypertension (8) Lymphedema of both lower extremities Code(s): I89.0 - LYMPHEDEMA, NOT ELSEWHERE CLASSIFIED (9) Pleural effusion Code(s): J90 - PLEURAL EFFUSION, NOT ELSEWHERE CLASSIFIED Assessment/Plan 10/26/2017 Normal LV size with mild LVH, normal LV fxn, normal RV size and fxn, mild LAE, mild MR, mild-mod TR, mild NE, RVSP 43 mmHg 11/19/2016 Lexiscan Myoview: Apical ischemia, LVEF 45-52% 10/06/2016 Echocardiography revealed mild to moderate LV systolic dysfunction, moderate TR, RVSP of 30-40 mmH 1. Acute on chronic Hypoxic and Hypercapneic Respiratory Failure 2. Acute on chronic LV Diastolic Heart Failure with pleural effusion 3. Pneumonia, ARDS, septic shock 4. Paroxysmal atrial fibrillation with periods of rapid ventricular response post DCCV, [id number] score of 2 5. Obstructive Sleep Apnea/OHS 6. HTN/HCVD 7. Hypercholesterolemia 8. CAD, angina pectoris 9. Bilateral cellulitis with h/o abscess s/p debridement 10. Bilateral hydrocele PLAN: 1. Vent wean as tolerated, completed antibiotic course, may need trach 2. DVT and GI prophylaxis and enteral feeds 3. Diuretics as needed with monitor renal function and electrolytes, repleted K 4. Continue Lopressor 25 mg BID and Eliquis 5 mg BID
--- NOTE | 2020-01-05 12:27 | PN ---
Teaching Attending Note Name of Resident: Lily Hernandez ATTENDING PHYSICIAN STATEMENT I saw and evaluated the patient. I reviewed the resident's note and discussed the case with the resident. I agree with the resident's findings and plan as documented. SUBJECTIVE: Patient seen and examined in the ICU. Remains intubated, sedated. Off pressors. Vented on volume assist control with 60% FiO2 & PEEP 10. OBJECTIVE: Intake & Output 01/02/20 01/03/20 01/04/20 01/05/20 23:59 23:59 23:59 23:59 Intake Total 3635 2353 1388 893 Output Total 1800 1625 1500 800 Balance 1835 728 -112 93 Weight 229 lb 3.2 oz 234 lb 14.4 oz 232 lb 230 lb 1.6 oz Last Vital Signs Temp Pulse Resp BP Pulse Ox 97.6 F 70 18 101/70 93 L 01/05/20 10:00 01/05/20 10:00 01/05/20 11:50 01/05/20 10:00 01/05/20 09:00 Active Medications Albuterol/Ipratropium (Duoneb -) 1 amp NEB Q4H PRN PRN Reason: SHORTNESS OF BREATH Apixaban (Eliquis -) 5 mg PO BID [facility] Last Admin: 01/05/20 10:08 Dose: 5 mg Documented by: Ascorbic Acid (Vitamin C -) 1,000 mg PO DAILY [facility] Last Admin: 01/05/20 10:08 Dose: 1,000 mg Documented by: Chlorhexidine Gluconate (Peridex -) 15 ml MM BID [facility] Last Admin: 01/05/20 10:08 Dose: 15 ml Documented by: Hydrocortisone Sodium Succinate (Solu-Cortef -) 50 mg IVPUSH BID [facility] Last Admin: 01/05/20 10:08 Dose: 50 mg Documented by: Propofol (Diprivan -) 1,000,000 mcg in 100 mls @ 3.266 mls/hr IVPB TITR [facility]; Protocol Last Admin: 01/04/20 21:53 Dose: Not Given Documented by: Midazolam HCl (Midazolam 100mg/100ml-0.9%Nacl) 100 mg in 100 mls @ 1 mls/hr IVPB TITR [facility]; Protocol Last Admin: 01/04/20 21:53 Dose: Not Given Documented by: Vasopressin 40 units/ Sodium (Chloride) 100 mls @ 5 mls/hr IVPB TITR [facility]; Protocol Last Admin: 01/04/20 21:52 Dose: Not Given Documented by: Metoprolol Tartrate (Lopressor -) 25 mg PO BID [facility] Last Admin: 01/05/20 10:08 Dose: 25 mg Documented by: Multivitamins/Minerals/Vitamin C (Tab-A-Vit -) 1 tab PO DAILY [facility] Last Admin: 01/05/20 10:08 Dose: 1 tab Documented by: Pantoprazole Sodium (Protonix Iv) 40 mg IVPUSH DAILY [facility] Last Admin: 01/05/20 10:07 Dose: 40 mg Documented by: Gen: intubated, sedated Heart: S1S2, regular Lung: scattered rhonchi Abd: soft, +ascites Ext: Less edema Laboratory Results - last 24 hr 01/05/20 01/05/20 01/05/20 05:00 05:00 06:00 WBC 8.6 RBC 5.75 H Hgb 13.6 Hct 47.6 MCV 82.8 MCH 23.7 L MCHC 28.7 L RDW 22.8 H Plt Count 161 MPV 11.5 H Absolute Neuts (auto) 6.9 Neutrophils % 79.7 Lymphocytes % 8.2 Monocytes % 9.7 Eosinophils % 2.3 D Basophils % 0.1 Nucleated RBC % 0 Anticoagulation Therapy No Result Required. Puncture Site Right radial Patient Temperature No Result Required. ABG pH 7.439 ABG pCO2 52.50 H ABG pO2 101.9 H ABG HCO3 34.8 H ABG O2 Sat (Measured) 97.7 ABG O2 Content No Result Required. ABG Base Excess 8.8 H Ye Test Positive Patient On Oxygen Yes O2 Delivery Device Vent Oxygen Flow Rate 60% Vent Mode A/c Vent Rate 18 Mechanical Rate No Result Required. PEEP 10.0 Pressure Support Vent 450 Sodium 146 H Potassium 3.6 Chloride 102 Carbon Dioxide 39 H Anion Gap 5 L BUN 46.9 H Creatinine 0.6 Est GFR (CKD-EPI)AfAm 121.43 Est GFR (CKD-EPI)NonAf 104.77 Random Glucose 164 H Calcium 8.9 Phosphorus 3.0 Magnesium 2.4 Total Bilirubin 3.6 H AST 45 H ALT 75 H Alkaline Phosphatase 104 Total Protein 5.6 L Albumin 2.2 L Triglycerides 219 H ASSESSMENT AND PLAN: Acute on Chronic Hypoxic and Hypercapneic Respiratory Failure Pneumonia ARDS Septic Shock Acute on Chronic Diastolic Heart Failure Pulmonary HTN Paroxysmal Atrial Fibrillation CAD Acute Kidney Injury Likely COPD JUANA/OHS HTN Hypercholesterolemia - continue antibiotics - off pressors, maintain MAP >65 - rate control - continue anticoagulation - low tidal volume ventilation - titrate FiO2, PEEP to keep SpO2 >90% - continue lasix - monitor urine output, creatinine - enteral feeds - DVT/GI prophylaxis - Wean trials as FiO2 & PEEP requirements improve - continue ICU monitoring May need Trach Dr Sanz Critical care time spent in reviewing chart, evaluating patient and formulating plan 35 min
--- NOTE | 2020-01-05 14:01 | PN ---
Progress Note, Physician History of Present Illness: patient continues to be intubated off of pressors - Current Medication List Current Medications: Active Medications Albuterol/Ipratropium (Duoneb -) 1 amp NEB Q4H PRN PRN Reason: SHORTNESS OF BREATH Apixaban (Eliquis -) 5 mg PO BID [facility] Last Admin: 01/05/20 10:08 Dose: 5 mg Documented by: Ascorbic Acid (Vitamin C -) 1,000 mg PO DAILY [facility] Last Admin: 01/05/20 10:08 Dose: 1,000 mg Documented by: Chlorhexidine Gluconate (Peridex -) 15 ml MM BID [facility] Last Admin: 01/05/20 10:08 Dose: 15 ml Documented by: Hydrocortisone Sodium Succinate (Solu-Cortef -) 25 mg IVPUSH BID [facility] Propofol (Diprivan -) 1,000,000 mcg in 100 mls @ 3.266 mls/hr IVPB TITR [facility]; Protocol Last Admin: 01/04/20 21:53 Dose: Not Given Documented by: Midazolam HCl (Midazolam 100mg/100ml-0.9%Nacl) 100 mg in 100 mls @ 1 mls/hr IVPB TITR [facility]; Protocol Last Admin: 01/04/20 21:53 Dose: Not Given Documented by: Vasopressin 40 units/ Sodium (Chloride) 100 mls @ 5 mls/hr IVPB TITR [facility]; Protocol Last Admin: 01/04/20 21:52 Dose: Not Given Documented by: Metoprolol Tartrate (Lopressor -) 25 mg PO BID [facility] Last Admin: 01/05/20 10:08 Dose: 25 mg Documented by: Multivitamins/Minerals/Vitamin C (Tab-A-Vit -) 1 tab PO DAILY [facility] Last Admin: 01/05/20 10:08 Dose: 1 tab Documented by: Pantoprazole Sodium (Protonix Iv) 40 mg IVPUSH DAILY [facility] Last Admin: 01/05/20 10:07 Dose: 40 mg Documented by: - Objective Vital Signs: Vital Signs Temperature 97.5 F L 01/05/20 12:00 Pulse Rate 66 01/05/20 12:00 Respiratory Rate 18 01/05/20 12:00 Blood Pressure 114/74 01/05/20 12:00 O2 Sat by Pulse Oximetry (%) 93 L 01/05/20 09:00 Constitutional: Yes: Other Cardiovascular: Yes: S1, S2 Respiratory: Yes: Intubated, Mechanically Ventilated Gastrointestinal: Yes: Normal Bowel Sounds, Soft Musculoskeletal: Yes: WNL Extremities: Yes: Other Edema: LLE: 1+, RLE: 1+ Neurological: Yes: Other Psychiatric: Yes: Other Labs: CBC, BMP 01/05/20 05:00 01/05/20 05:00 INR, PTT INR 1.34 (0.83-1.09) H 12/16/19 18:40 Assessment/Plan 64 year old male with a past medical history of HTN, HLD, JUANA (not using CPAP), COPD, GERD, systolic congestive heart failure, paroxysmal atrial fibrillation (on Eliquis, s/p cardioversion 11/2016) who presented with 3 weeks of gradual onset anasarca, scrotal swelling and mild shortness of breath worse on exertion. He as found to have a PNA, on clinical exam signs of fluid overload, ?bilateral lower extremity cellulitis and bilateral hydrocele. 1. Acute Respiratory Failure 2. Fluid Overload/ 3.Bilateral Lower Extremity Cellulitis 4. Hydrocele 5. Hypertension 6. Atrial Fibrillation 7. Elevated Troponin 8. Rule Out COVID 9 pna plan continue current mgmt patient probably heading toward trach if cannot be extubated vent support rest as per icu cc 36 min
--- NOTE | 2020-01-05 16:12 | PN ---
Physical Exam: SUBJECTIVE: Patient seen and examined, seemed more "awake" than yesterday but does not respond to commands. Otherwise no changes noted. Patient is full code. OBJECTIVE: Vital Signs Period Temp Pulse Resp BP Sys/Clements Pulse Ox Last 24 Hr 97.1 F-98.5 F 65-86 18-19 97-125/63-76 93-97 GENERAL: sedated and intubated HEAD: Normal with no signs of trauma. Eyes were slighly open and blinking, PERRL. LUNGS: Breath sounds from vent equal, clear to auscultation bilaterally, inspiratory rhonchi noted on L side. HEART: distant heart sounds. Regular rate and rhythm, S1, S2 without murmur, rub or gallop. ABDOMEN: distended, mildly rigid, active BS. EXTREMITIES: 1+ pitting edema bilaterally UE + LE NEUROLOGICAL: mildly responsive on sedation vacation SKIN: Warm, dark discoloration of shins bilaterally Laboratory Results - last 24 hr 01/05/20 01/05/20 01/05/20 05:00 05:00 06:00 WBC 8.6 RBC 5.75 H Hgb 13.6 Hct 47.6 MCV 82.8 MCH 23.7 L MCHC 28.7 L RDW 22.8 H Plt Count 161 MPV 11.5 H Absolute Neuts (auto) 6.9 Neutrophils % 79.7 Lymphocytes % 8.2 Monocytes % 9.7 Eosinophils % 2.3 D Basophils % 0.1 Nucleated RBC % 0 Anticoagulation Therapy No Result Required. Puncture Site Right radial Patient Temperature No Result Required. ABG pH 7.439 ABG pCO2 52.50 H ABG pO2 101.9 H ABG HCO3 34.8 H ABG O2 Sat (Measured) 97.7 ABG O2 Content No Result Required. ABG Base Excess 8.8 H Ye Test Positive Patient On Oxygen Yes O2 Delivery Device Vent Oxygen Flow Rate 60% Vent Mode A/c Vent Rate 18 Mechanical Rate No Result Required. PEEP 10.0 Pressure Support Vent 450 Sodium 146 H Potassium 3.6 Chloride 102 Carbon Dioxide 39 H Anion Gap 5 L BUN 46.9 H Creatinine 0.6 Est GFR (CKD-EPI)AfAm 121.43 Est GFR (CKD-EPI)NonAf 104.77 Random Glucose 164 H Calcium 8.9 Phosphorus 3.0 Magnesium 2.4 Total Bilirubin 3.6 H AST 45 H ALT 75 H Alkaline Phosphatase 104 Total Protein 5.6 L Albumin 2.2 L Triglycerides 219 H Active Medications Generic Name Dose Route Start Last Admin Trade Name Taylor PRN Reason Stop Dose Admin Albuterol/Ipratropium 1 amp 12/26/19 11:46 Duoneb - NEB Q4H PRN SHORTNESS OF BREATH Apixaban 5 mg 12/16/19 22:00 01/05/20 10:08 Eliquis - PO 5 mg BID [facility] Administration Ascorbic Acid 1,000 mg 12/17/19 10:00 01/05/20 10:08 Vitamin C - PO 1,000 mg DAILY [facility] Administration Chlorhexidine Gluconate 15 ml 12/22/19 12:30 01/05/20 10:08 Peridex - MM 15 ml BID [facility] Administration Hydrocortisone Sodium Succinate 25 mg 01/05/20 22:00 Solu-Cortef - IVPUSH BID [facility] Propofol 1,000,000 mcg in 100 mls @ 3.266 mls/hr 12/17/19 04:30 01/04/20 21:53 Diprivan - IVPB Not Given TITR [facility] Protocol 5 MCG/KG/MIN Midazolam HCl 100 mg in 100 mls @ 1 mls/hr 12/22/19 08:00 01/04/20 21:53 Midazolam 100mg/100ml-0.9%Nacl IVPB Not Given TITR [facility] Protocol 1 MG/HR Vasopressin 40 units/ Sodium 100 mls @ 5 mls/hr 01/02/20 17:30 01/04/20 21:52 Chloride IVPB Not Given TITR [facility] Protocol 2 UNITS/HR Metoprolol Tartrate 25 mg 12/19/19 12:00 01/05/20 10:08 Lopressor - PO 25 mg BID [facility] Administration Multivitamins/Minerals/Vitamin C 1 tab 12/17/19 10:00 01/05/20 10:08 Tab-A-Vit - PO 1 tab DAILY [facility] Administration Pantoprazole Sodium 40 mg 12/19/19 10:00 01/05/20 10:07 Protonix Iv IVPUSH 40 mg DAILY [facility] Administration Vent: RR 18, TV 450, FiO2 60, PEEP 10 Drips: 15 propofol, 5 versed ASSESSMENT/PLAN: 64yo M with PMHx of HTN, HLD, JUANA (not using CPAP), COPD, GERD, systolic CHF, afib on eliquis (s/p cardioversion 11/2016) who presented with R lobe pneumonia, fluid overload, bilateral LE cellulitis, bilateral hydrocele, and respiratory acidosis. Admitted for acute hypercapneic respiratory failure and acute CHF exacerbation. #Neuro - sedated, intubated, on propofol and midazolam - continue trending triglycerides / if propofol continues #Cardio fluid overload secondary to CHF exacerbation - Continue Lopressor 25 mg BID and Eliquis 5 mg BID - holding lisinopril until MONIE improves - continue metoprolol #Pulm acute hypercapneic respiratory failure due to CAP vs COPD exacerbation - decreasing FiO2 and will see how well tolerated. - further discussions for goals of care needed and possible consent for trach - tapering hydrocortisone from 50 BID to 25 BID #ID bilateral LE cellulitis - resolved - discontinued abx #Renal - hypernatremia improving - will continue trending #PPX - DVT: eliquis - GI: pantoprazole #FEN - tube feeds per dietary #LTD - A line discontinued - ET - [facility] 12/26 mother's cell: [phone] Home: Brother Ady: [phone] Visit type - Emergency Visit Emergency Visit: Yes ED Registration Date: 12/16/19 Care time: The patient presented to the Emergency Department on the above date and was hospitalized for further evaluation of their emergent condition. - New Patient This patient is new to me today: No - Critical Care Critical Care patient: Yes Total Critical Care Time (in minutes): 36 Critical Care Statement: The care of this patient involved high complexity decision making to prevent further life threatening deterioration of the patient's condition and/or to evaluate & treat vital organ system(s) failure or risk of failure. ATTENDING PHYSICIAN STATEMENT I saw and evaluated the patient. I reviewed the resident's note and discussed the case with the resident. I agree with the resident's findings and plan as documented. SUBJECTIVE: OBJECTIVE: ASSESSMENT AND PLAN:
[2020-01-05] MEDS: MIDAZOLAM IN 0.9 % SOD.CHLORID 100 MG/100 ML PLAST..BAG IVPB SCH (17:18)
[2020-01-05] MEDS: PROPOFOL 1,000,000 MCG/100 ML VIAL IVPB SCH (17:18)
[2020-01-05] MEDS ORDERED: POTASSIUM CHLORIDE ORAL LIQUID 20 MEQ/15 ML PO ONE (18:13)
--- NOTE | 2020-01-05 18:13 | PN ---
Progress Note, Physician History of Present Illness: Pt seen and examined at bedside. He remains in the ICU. He remains intubated. - Current Medication List Current Medications: Active Medications Albuterol/Ipratropium (Duoneb -) 1 amp NEB Q4H PRN PRN Reason: SHORTNESS OF BREATH Apixaban (Eliquis -) 5 mg PO BID [facility] Last Admin: 01/05/20 10:08 Dose: 5 mg Documented by: Ascorbic Acid (Vitamin C -) 1,000 mg PO DAILY [facility] Last Admin: 01/05/20 10:08 Dose: 1,000 mg Documented by: Chlorhexidine Gluconate (Peridex -) 15 ml MM BID [facility] Last Admin: 01/05/20 10:08 Dose: 15 ml Documented by: Hydrocortisone Sodium Succinate (Solu-Cortef -) 25 mg IVPUSH BID [facility] Propofol (Diprivan -) 1,000,000 mcg in 100 mls @ 3.266 mls/hr IVPB TITR [facility]; Protocol Last Admin: 01/05/20 17:18 Dose: 15 mcg/kg/min, 9.798 mls/hr Documented by: Midazolam HCl (Midazolam 100mg/100ml-0.9%Nacl) 100 mg in 100 mls @ 1 mls/hr IVPB TITR [facility]; Protocol Last Admin: 01/05/20 17:18 Dose: 5 mg/hr, 5 mls/hr Documented by: Vasopressin 40 units/ Sodium (Chloride) 100 mls @ 5 mls/hr IVPB TITR [facility]; Protocol Last Admin: 01/04/20 21:52 Dose: Not Given Documented by: Metoprolol Tartrate (Lopressor -) 25 mg PO BID [facility] Last Admin: 01/05/20 10:08 Dose: 25 mg Documented by: Multivitamins/Minerals/Vitamin C (Tab-A-Vit -) 1 tab PO DAILY [facility] Last Admin: 01/05/20 10:08 Dose: 1 tab Documented by: Pantoprazole Sodium (Protonix Iv) 40 mg IVPUSH DAILY [facility] Last Admin: 01/05/20 10:07 Dose: 40 mg Documented by: - Objective Vital Signs: Vital Signs Temperature 97.8 F 01/05/20 16:00 Pulse Rate 75 01/05/20 16:00 Respiratory Rate 18 01/05/20 16:25 Blood Pressure 119/78 01/05/20 16:00 O2 Sat by Pulse Oximetry (%) 97 01/05/20 16:00 Constitutional: Yes: Calm Eyes: Yes: Conjunctiva Clear HENT: Yes: Atraumatic Cardiovascular: Yes: S1, S2 Respiratory: Yes: CTA Bilaterally Gastrointestinal: Yes: Soft Genitourinary: Yes: Hilario Present Edema: Yes Edema: LLE: Trace, RLE: Trace Integumentary: Yes: Venous Stasis Changes Labs: CBC, BMP 01/05/20 05:00 01/05/20 05:00 INR, PTT INR 1.34 (0.83-1.09) H 12/16/19 18:40 - ....Imaging Chest X-ray: Report Reviewed Problem List - Problems (1) Anasarca Code(s): R60.1 - GENERALIZED EDEMA (2) Congestive heart failure (CHF) Code(s): I50.9 - HEART FAILURE, UNSPECIFIED Qualifiers: Heart failure type: diastolic Heart failure chronicity: acute on chronic Qualified Code(s): I50.33 - Acute on chronic diastolic (congestive) heart failure (3) Acute kidney injury Code(s): N17.9 - ACUTE KIDNEY FAILURE, UNSPECIFIED Assessment/Plan Current Medications Generic Name Dose Route Start Last Admin Trade Name Freq PRN Reason Stop Dose Admin Albuterol/Ipratropium 1 amp 12/26/19 11:46 Duoneb - NEB Q4H PRN SHORTNESS OF BREATH Apixaban 5 mg 12/16/19 22:00 01/05/20 10:08 Eliquis - PO 5 mg BID [facility] Administration Ascorbic Acid 1,000 mg 12/17/19 10:00 01/05/20 10:08 Vitamin C - PO 1,000 mg DAILY [facility] Administration Chlorhexidine Gluconate 15 ml 12/22/19 12:30 01/05/20 10:08 Peridex - MM 15 ml BID [facility] Administration Hydrocortisone Sodium Succinate 25 mg 01/05/20 22:00 Solu-Cortef - IVPUSH BID [facility] Propofol 1,000,000 mcg in 100 mls @ 3.266 mls/hr 12/17/19 04:30 01/05/20 17:18 Diprivan - IVPB 15 mcg/kg/min TITR [facility] 9.798 mls/hr Administration Protocol 5 MCG/KG/MIN Midazolam HCl 100 mg in 100 mls @ 1 mls/hr 12/22/19 08:00 01/05/20 17:18 Midazolam 100mg/100ml-0.9%Nacl IVPB 5 mg/hr TITR [facility] 5 mls/hr Administration Protocol 1 MG/HR Vasopressin 40 units/ Sodium 100 mls @ 5 mls/hr 01/02/20 17:30 01/04/20 21:52 Chloride IVPB Not Given TITR [facility] Protocol 2 UNITS/HR Metoprolol Tartrate 25 mg 12/19/19 12:00 01/05/20 10:08 Lopressor - PO 25 mg BID [facility] Administration Multivitamins/Minerals/Vitamin C 1 tab 12/17/19 10:00 01/05/20 10:08 Tab-A-Vit - PO 1 tab DAILY [facility] Administration Pantoprazole Sodium 40 mg 12/19/19 10:00 01/05/20 10:07 Protonix Iv IVPUSH 40 mg DAILY [facility] Administration Impression 1. MONIE 2. CHF acute 3. acute resp failure requiring intubation 4. atrial fibrillation 5. hx of htn 6. obesity 7. chronic smoker 8. hypokalemia Plan - renal function stable - cxr reviewed - cont vent support - pressors to map 65 - lasix on hold, monitor volume status closely - cont feeds with free water - ph improved - discussed with ICU team - am cxr - monitor sodium levels
[2020-01-05] MEDS: VASOPRESSIN 40 UNITS in SODIUM CHLORIDE 98 ML IVPB SCH (19:27)
[2020-01-05] MEDS ORDERED: BENZOIN/ALOE VERA/STORAX/TOLU 58 ML BOTTLE ONE (23:35)
[2020-01-06] MEDS: PROPOFOL 1,000,000 MCG/100 ML VIAL IVPB SCH ×2 (01:05→09:26)
[2020-01-06] MEDS: MIDAZOLAM IN 0.9 % SOD.CHLORID 100 MG/100 ML PLAST..BAG IVPB SCH ×2 (01:06→17:43)
[2020-01-06 06:14] LABS: BASO % 1.2 % (0-2.0); EOS % 2.6 % (0-4.5); HEMATOCRIT 47.6 % (35.4-49); HEMOGLOBIN 13.2 GM/dL (11.7-16.9); LYMPH % 10.3 % (8-40); MCH 22.7 pg (25.7-33.7); MCHC 27.8 g/dl (32.0-35.9); MEAN CELL VOLUME 81.7 fl (80-96); MEAN PLT VOLUME 10.7 fl (7.5-11.1); MONO % 10.1 % (3.8-10.2); NEUT % 75.8 % (42.8-82.8); PLATELET COUNT 150 K/MM3 (134-434); RBC 5.83 M/mm3 (4.00-5.60); RDW 23.5 % (11.9-15.9); WHITE BLOOD COUNT 8.4 K/mm3 (4.0-10.0)
[2020-01-06 06:30] LABS: ALBUMIN 2.2 g/dl (3.4-5.0); BILIRUBIN,TOTAL 2.5 mg/dL (0.2-1); BLOOD UREA NITROGEN 44.3 mg/dL (7-18); CALCIUM 9.1 mg/dL (8.5-10.1); CREATININE 0.6 mg/dL (0.55-1.3); MAGNESIUM 2.4 mg/dL (1.8-2.4); PHOSPHOROUS 3.1 mg/dL (2.5-4.9); POTASSIUM 3.7 mmol/L (3.5-5.1); TOT PROT 5.5 g/dl (6.4-8.2)
[2020-01-06] MEDS ORDERED: PT OWN MED DRAWER 7, Y5N ONE (08:52)
[2020-01-06] MEDS: PANTOPRAZOLE SODIUM 40 MG VIAL IVPUSH SCH (09:25)
[2020-01-06] MEDS: HYDROCORTISONE SOD SUCCINATE 100 MG/2 ML VIAL IVPUSH SCH ×2 (09:25→21:17)
[2020-01-06] MEDS: CHLORHEXIDINE GLUCONATE 0.12% 15ML CUP MM SCH ×2 (09:25→21:17)
[2020-01-06] MEDS: METOPROLOL TARTRATE 25 MG TABLET (FP) PO SCH ×2 (09:26→21:17)
[2020-01-06] MEDS: APIXABAN 5 MG TABLET PO SCH ×2 (09:26→21:17)
[2020-01-06] MEDS: ASCORBIC ACID 500 MG TABLET (FP) PO SCH (09:26)
[2020-01-06] MEDS: MULTIVITAMINS (DAILY MVI) TABLET (FP) PO SCH (10:43)
[2020-01-06 11:10] LABS: ANISOCYTOSIS 1+; MACROCYTOSIS 1+; PLATELET ESTIMATE NORMAL
--- NOTE | 2020-01-06 12:18 | PN ---
Teaching Attending Note Name of Resident: Nika Melara ATTENDING PHYSICIAN STATEMENT I saw and evaluated the patient. I reviewed the resident's note and discussed the case with the resident. I agree with the resident's findings and plan as documented. SUBJECTIVE: Patient seen and examined in the ICU. Remains intubated, sedated. Off pressors. Vented on volume assist control with 50% FiO2 & PEEP 8. OBJECTIVE: Intake & Output 01/03/20 01/04/20 01/05/20 01/06/20 23:59 23:59 23:59 23:59 Intake Total 2353 1388 1533 1188 Output Total 1625 1500 1800 500 Balance 728 -112 -826 688 Weight 234 lb 14.4 oz 232 lb 230 lb 1.6 oz 230 lb Last Vital Signs Temp Pulse Resp BP Pulse Ox 99.9 F H 79 19 113/66 94 L 01/06/20 10:00 01/06/20 10:00 01/06/20 10:00 01/06/20 10:00 01/06/20 10:00 Active Medications Albuterol/Ipratropium (Duoneb -) 1 amp NEB Q4H PRN PRN Reason: SHORTNESS OF BREATH Apixaban (Eliquis -) 5 mg PO BID [facility] Last Admin: 01/06/20 09:26 Dose: 5 mg Documented by: Ascorbic Acid (Vitamin C -) 1,000 mg PO DAILY [facility] Last Admin: 01/06/20 09:26 Dose: 1,000 mg Documented by: Chlorhexidine Gluconate (Peridex -) 15 ml MM BID [facility] Last Admin: 01/06/20 09:25 Dose: 15 ml Documented by: Hydrocortisone Sodium Succinate (Solu-Cortef -) 25 mg IVPUSH BID [facility] Last Admin: 01/06/20 09:25 Dose: 25 mg Documented by: Propofol (Diprivan -) 1,000,000 mcg in 100 mls @ 3.266 mls/hr IVPB TITR [facility]; Protocol Last Admin: 01/06/20 09:26 Dose: 15 mcg/kg/min, 9.798 mls/hr Documented by: Midazolam HCl (Midazolam 100mg/100ml-0.9%Nacl) 100 mg in 100 mls @ 1 mls/hr IVPB TITR [facility]; Protocol Last Admin: 01/06/20 01:06 Dose: 5 mg/hr, 5 mls/hr Documented by: Metoprolol Tartrate (Lopressor -) 25 mg PO BID [facility] Last Admin: 01/06/20 09:26 Dose: 25 mg Documented by: Multivitamins/Minerals/Vitamin C (Tab-A-Vit -) 1 tab PO DAILY [facility] Last Admin: 01/05/20 10:08 Dose: 1 tab Documented by: Pantoprazole Sodium (Protonix Iv) 40 mg IVPUSH DAILY [facility] Last Admin: 01/06/20 09:25 Dose: 40 mg Documented by: Gen: intubated, sedated Heart: S1S2, regular Lung: scattered rhonchi Abd: soft, +ascites Ext: Less edema Laboratory Results - last 24 hr 01/06/20 01/06/20 01/06/20 05:50 05:50 11:36 WBC 8.4 RBC 5.83 H Hgb 13.2 Hct 47.6 MCV 81.7 MCH 22.7 L MCHC 27.8 L RDW 23.5 H Plt Count 150 MPV 10.7 Absolute Neuts (auto) 6.4 Neutrophils % 75.8 Lymphocytes % 10.3 D Monocytes % 10.1 Eosinophils % 2.6 Basophils % 1.2 D Nucleated RBC % 0 Sodium 150 H Potassium 3.7 Chloride 108 H Carbon Dioxide 37 H Anion Gap 5 L BUN 44.3 H Creatinine 0.6 Est GFR (CKD-EPI)AfAm 121.43 Est GFR (CKD-EPI)NonAf 104.77 POC Glucometer 162 Random Glucose 163 H Calcium 9.1 Phosphorus 3.1 Magnesium 2.4 Total Bilirubin 2.5 H AST 37 ALT 72 H Alkaline Phosphatase 100 Total Protein 5.5 L Albumin 2.2 L ASSESSMENT AND PLAN: Acute on Chronic Hypoxic and Hypercapneic Respiratory Failure Pneumonia ARDS Septic Shock Acute on Chronic Diastolic Heart Failure Pulmonary HTN Paroxysmal Atrial Fibrillation CAD Acute Kidney Injury Likely COPD JUANA/OHS HTN Hypercholesterolemia - continue antibiotics per ID - off pressors, maintain MAP >65 - rate control - continue anticoagulation - low tidal volume ventilation - titrate FiO2, PEEP to keep SpO2 >90% - continue lasix - monitor urine output, creatinine - enteral feeds - DVT/GI prophylaxis - Wean trials as tolerated - continue ICU monitoring May need Trach Dr Sanz Critical care time spent in reviewing chart, evaluating patient and formulating plan 35 min
--- NOTE | 2020-01-06 13:39 | PN ---
Progress Note, Physician History of Present Illness: Pt seen and examined at bedside. He remains in the ICU intubated. - Current Medication List Current Medications: Active Medications Albuterol/Ipratropium (Duoneb -) 1 amp NEB Q4H PRN PRN Reason: SHORTNESS OF BREATH Apixaban (Eliquis -) 5 mg PO BID [facility] Last Admin: 01/06/20 09:26 Dose: 5 mg Documented by: Ascorbic Acid (Vitamin C -) 1,000 mg PO DAILY [facility] Last Admin: 01/06/20 09:26 Dose: 1,000 mg Documented by: Chlorhexidine Gluconate (Peridex -) 15 ml MM BID [facility] Last Admin: 01/06/20 09:25 Dose: 15 ml Documented by: Hydrocortisone Sodium Succinate (Solu-Cortef -) 25 mg IVPUSH BID [facility] Last Admin: 01/06/20 09:25 Dose: 25 mg Documented by: Propofol (Diprivan -) 1,000,000 mcg in 100 mls @ 3.266 mls/hr IVPB TITR [facility]; Protocol Last Admin: 01/06/20 09:26 Dose: 15 mcg/kg/min, 9.798 mls/hr Documented by: Midazolam HCl (Midazolam 100mg/100ml-0.9%Nacl) 100 mg in 100 mls @ 1 mls/hr IVPB TITR [facility]; Protocol Last Admin: 01/06/20 01:06 Dose: 5 mg/hr, 5 mls/hr Documented by: Metoprolol Tartrate (Lopressor -) 25 mg PO BID [facility] Last Admin: 01/06/20 09:26 Dose: 25 mg Documented by: Multivitamins/Minerals/Vitamin C (Tab-A-Vit -) 1 tab PO DAILY [facility] Last Admin: 01/05/20 10:08 Dose: 1 tab Documented by: Pantoprazole Sodium (Protonix Iv) 40 mg IVPUSH DAILY [facility] Last Admin: 01/06/20 09:25 Dose: 40 mg Documented by: - Objective Vital Signs: Vital Signs Temperature 99.9 F H 01/06/20 10:00 Pulse Rate 79 01/06/20 10:00 Respiratory Rate 18 01/06/20 12:10 Blood Pressure 113/66 01/06/20 10:00 O2 Sat by Pulse Oximetry (%) 95 01/06/20 12:10 Constitutional: Yes: Calm Eyes: Yes: Conjunctiva Clear HENT: Yes: Atraumatic Neck: Yes: Supple Cardiovascular: Yes: S1, S2 Respiratory: Yes: Mechanically Ventilated Gastrointestinal: Yes: Soft, Abdomen, Obese Genitourinary: Yes: Hilario Present Musculoskeletal: Yes: Muscle Weakness Edema: Yes Edema: LLE: Trace, RLE: Trace Integumentary: Yes: Venous Stasis Changes Neurological: Yes: Lethargy Labs: CBC, BMP 01/06/20 05:50 01/06/20 05:50 INR, PTT INR 1.34 (0.83-1.09) H 12/16/19 18:40 Problem List - Problems (1) Anasarca Code(s): R60.1 - GENERALIZED EDEMA (2) Congestive heart failure (CHF) Code(s): I50.9 - HEART FAILURE, UNSPECIFIED Qualifiers: Heart failure type: diastolic Heart failure chronicity: acute on chronic Qualified Code(s): I50.33 - Acute on chronic diastolic (congestive) heart failure (3) Acute kidney injury Code(s): N17.9 - ACUTE KIDNEY FAILURE, UNSPECIFIED Assessment/Plan Current Medications Generic Name Dose Route Start Last Admin Trade Name Freq PRN Reason Stop Dose Admin Albuterol/Ipratropium 1 amp 12/26/19 11:46 Duoneb - NEB Q4H PRN SHORTNESS OF BREATH Apixaban 5 mg 12/16/19 22:00 01/06/20 09:26 Eliquis - PO 5 mg BID [facility] Administration Ascorbic Acid 1,000 mg 12/17/19 10:00 01/06/20 09:26 Vitamin C - PO 1,000 mg DAILY [facility] Administration Chlorhexidine Gluconate 15 ml 12/22/19 12:30 01/06/20 09:25 Peridex - MM 15 ml BID [facility] Administration Hydrocortisone Sodium Succinate 25 mg 01/05/20 22:00 01/06/20 09:25 Solu-Cortef - IVPUSH 25 mg BID [facility] Administration Propofol 1,000,000 mcg in 100 mls @ 3.266 mls/hr 12/17/19 04:30 01/06/20 09:26 Diprivan - IVPB 15 mcg/kg/min TITR [facility] 9.798 mls/hr Administration Protocol 5 MCG/KG/MIN Midazolam HCl 100 mg in 100 mls @ 1 mls/hr 12/22/19 08:00 01/06/20 01:06 Midazolam 100mg/100ml-0.9%Nacl IVPB 5 mg/hr TITR [facility] 5 mls/hr Administration Protocol 1 MG/HR Metoprolol Tartrate 25 mg 12/19/19 12:00 01/06/20 09:26 Lopressor - PO 25 mg BID [facility] Administration Multivitamins/Minerals/Vitamin C 1 tab 12/17/19 10:00 01/05/20 10:08 Tab-A-Vit - PO 1 tab DAILY [facility] Administration Pantoprazole Sodium 40 mg 12/19/19 10:00 01/06/20 09:25 Protonix Iv IVPUSH 40 mg DAILY [facility] Administration Impression 1. MONIE 2. CHF acute 3. acute resp failure requiring intubation 4. atrial fibrillation 5. hx of htn 6. obesity 7. chronic smoker 8. hypokalemia Plan - sodium is rising - hold off lasix - increase free water - mix drips in 1/2 ns or d5w if possible - cont vent support - pressors to map 65 - discussed with ICU team - am cxr - monitor sodium levels
--- NOTE | 2020-01-06 15:00 | PN ---
Progress Note, Physician Chief Complaint: Events noted Remains intubated and sedated History of Present Illness: Patient was seen and examined in ICU. On mechanical ventilator. Chart was reviewed - Current Medication List Current Medications: Active Medications Albuterol/Ipratropium (Duoneb -) 1 amp NEB Q4H PRN PRN Reason: SHORTNESS OF BREATH Amino Acids (Prosource No Carb Liquid Pkt) 30 ml NGT DAILY [facility] Apixaban (Eliquis -) 5 mg PO BID [facility] Last Admin: 01/06/20 09:26 Dose: 5 mg Documented by: Ascorbic Acid (Vitamin C -) 1,000 mg PO DAILY [facility] Last Admin: 01/06/20 09:26 Dose: 1,000 mg Documented by: Chlorhexidine Gluconate (Peridex -) 15 ml MM BID [facility] Last Admin: 01/06/20 09:25 Dose: 15 ml Documented by: Hydrocortisone Sodium Succinate (Solu-Cortef -) 25 mg IVPUSH BID [facility] Last Admin: 01/06/20 09:25 Dose: 25 mg Documented by: Propofol (Diprivan -) 1,000,000 mcg in 100 mls @ 3.266 mls/hr IVPB TITR [facility]; Protocol Last Admin: 01/06/20 09:26 Dose: 15 mcg/kg/min, 9.798 mls/hr Documented by: Midazolam HCl (Midazolam 100mg/100ml-0.9%Nacl) 100 mg in 100 mls @ 1 mls/hr IVPB TITR [facility]; Protocol Last Admin: 01/06/20 01:06 Dose: 5 mg/hr, 5 mls/hr Documented by: Metoprolol Tartrate (Lopressor -) 25 mg PO BID [facility] Last Admin: 01/06/20 09:26 Dose: 25 mg Documented by: Multivitamins/Minerals/Vitamin C (Tab-A-Vit -) 1 tab PO DAILY [facility] Last Admin: 01/05/20 10:08 Dose: 1 tab Documented by: Pantoprazole Sodium (Protonix Iv) 40 mg IVPUSH DAILY [facility] Last Admin: 01/06/20 09:25 Dose: 40 mg Documented by: - Objective Vital Signs: Vital Signs Temperature 99.9 F H 01/06/20 10:00 Pulse Rate 79 01/06/20 10:00 Respiratory Rate 18 01/06/20 12:10 Blood Pressure 113/66 01/06/20 10:00 O2 Sat by Pulse Oximetry (%) 95 01/06/20 12:10 Neck: Yes: Supple Cardiovascular: Yes: Regular Rate and Rhythm, S1, S2 Respiratory: Yes: Diminished, Mechanically Ventilated Gastrointestinal: Yes: Normal Bowel Sounds, Soft. No: Tenderness Edema: No Labs: CBC, BMP 01/06/20 05:50 01/06/20 05:50 Problem List - Problems (1) Congestive heart failure (CHF) Code(s): I50.9 - HEART FAILURE, UNSPECIFIED Qualifiers: Heart failure type: diastolic Heart failure chronicity: acute on chronic Qualified Code(s): I50.33 - Acute on chronic diastolic (congestive) heart failure (2) Pleural effusion Code(s): J90 - PLEURAL EFFUSION, NOT ELSEWHERE CLASSIFIED (3) Pneumonia Code(s): J18.9 - PNEUMONIA, UNSPECIFIED ORGANISM Qualifiers: Pneumonia type: due to unspecified organism Laterality: right Lung location: lower lobe of lung Qualified Code(s): J18.9 - Pneumonia, unspecified organism (4) Acute hypercapnic respiratory failure Code(s): J96.02 - ACUTE RESPIRATORY FAILURE WITH HYPERCAPNIA (5) Acute respiratory failure with hypoxia and hypercarbia Code(s): J96.01 - ACUTE RESPIRATORY FAILURE WITH HYPOXIA; J96.02 - ACUTE RESPIRATORY FAILURE WITH HYPERCAPNIA (6) Atrial fibrillation Code(s): I48.91 - UNSPECIFIED ATRIAL FIBRILLATION Qualifiers: Atrial fibrillation type: paroxysmal Qualified Code(s): I48.0 - Paroxysmal atrial fibrillation (7) COPD (chronic obstructive pulmonary disease) Code(s): J44.9 - CHRONIC OBSTRUCTIVE PULMONARY DISEASE, UNSPECIFIED Qualifiers: COPD type: unspecified COPD Qualified Code(s): J44.9 - Chronic obstructive pulmonary disease, unspecified (8) Hypertension Code(s): I10 - ESSENTIAL (PRIMARY) HYPERTENSION Qualifiers: Hypertension type: essential hypertension Qualified Code(s): I10 - Essential (primary) hypertension (9) Respiratory failure requiring intubation Code(s): J96.90 - RESPIRATORY FAILURE, UNSP, UNSP W HYPOXIA OR HYPERCAPNIA (10) Sleep apnea Code(s): G47.30 - SLEEP APNEA, UNSPECIFIED Qualifiers: Sleep apnea type: obstructive Qualified Code(s): G47.33 - Obstructive sleep apnea (adult) (pediatric) (11) Systolic and diastolic CHF, chronic Code(s): I50.42 - CHRONIC COMBINED SYSTOLIC AND DIASTOLIC HRT FAIL Assessment/Plan 1. Acute on chronic Hypoxic and Hypercapneic Respiratory Failure, currently intubated 2. Acute on chronic LV Diastolic Heart Failure with pleural effusion 3. Pneumonia (septic shock) 4. Paroxysmal atrial fibrillation with periods of rapid ventricular response post DCCV, [id number] score of 2 5. Obstructive Sleep Apnea/Obesity 6. HTN/HCVD 7. Hypercholesterolemia 8. CAD, angina pectoris 9. Bilateral cellulitis with h/o abscess s/p debridement 10. Bilateral hydrocele PLAN: 1. Vent management as per ICU team. Wean as tolerated. Possible tracheostomy if not able to wean 2. DVT and GI prophylaxis and enteral feeds 3. Diuretics as needed with monitor renal function and electrolytes 4. Continue Lopressor 25 mg BID and Eliquis 5 mg BID Guarded Khalif Correa MD
--- NOTE | 2020-01-06 16:12 | PN ---
Physical Exam: SUBJECTIVE: Patient seen and examined. Intubated and sedated. 18/450/8/50. urine output 1800cc. Febrile to 100.6 this afternoon. OBJECTIVE: Vital Signs Period Temp Pulse Resp BP Sys/Clements Pulse Ox Last 24 Hr 97.8 F-99.9 F 69-82 18-19 104-118/65-73 88-98 GENERAL: Intubated and sedated. HEAD: Normal with no signs of trauma. ENT: Ears normal, nares patent, moist mucous membranes. NECK: Trachea midline. LUNGS: Clear to auscultation bilaterally. HEART: Regular rate and rhythm, no murmur appreciated. ABDOMEN: Soft, nondistended, normoactive bowel sounds EXTREMITIES: Warm, well-perfused, peripheral edema. B/l LE erythematous with flaky skin. NEUROLOGICAL: cannot assess PSYCH: cannot assess SKIN: Warm, dry, normal turgor. pink urine draining from maxwell Laboratory Results - last 24 hr 01/06/20 01/06/20 01/06/20 05:50 05:50 11:36 WBC 8.4 RBC 5.83 H Hgb 13.2 Hct 47.6 MCV 81.7 MCH 22.7 L MCHC 27.8 L RDW 23.5 H Plt Count 150 MPV 10.7 Absolute Neuts (auto) 6.4 Neutrophils % 75.8 Lymphocytes % 10.3 D Monocytes % 10.1 Eosinophils % 2.6 Basophils % 1.2 D Nucleated RBC % 0 Hypochromia 0 Platelet Estimate Normal Polychromasia 0 Poikilocytosis 0 Anisocytosis 1+ Microcytosis 0 Macrocytosis 1+ Sodium 150 H Potassium 3.7 Chloride 108 H Carbon Dioxide 37 H Anion Gap 5 L BUN 44.3 H Creatinine 0.6 Est GFR (CKD-EPI)AfAm 121.43 Est GFR (CKD-EPI)NonAf 104.77 POC Glucometer 162 Random Glucose 163 H Calcium 9.1 Phosphorus 3.1 Magnesium 2.4 Total Bilirubin 2.5 H AST 37 ALT 72 H Alkaline Phosphatase 100 Total Protein 5.5 L Albumin 2.2 L Active Medications Generic Name Dose Route Start Last Admin Trade Name Freq PRN Reason Stop Dose Admin Albuterol/Ipratropium 1 amp 12/26/19 11:46 Duoneb - NEB Q4H PRN SHORTNESS OF BREATH Amino Acids 30 ml 01/07/20 10:00 Prosource No Carb Liquid Pkt NGT DAILY [facility] Apixaban 5 mg 12/16/19 22:00 01/06/20 09:26 Eliquis - PO 5 mg BID [facility] Administration Ascorbic Acid 1,000 mg 12/17/19 10:00 01/06/20 09:26 Vitamin C - PO 1,000 mg DAILY [facility] Administration Chlorhexidine Gluconate 15 ml 12/22/19 12:30 01/06/20 09:25 Peridex - MM 15 ml BID [facility] Administration Hydrocortisone Sodium Succinate 25 mg 01/05/20 22:00 01/06/20 09:25 Solu-Cortef - IVPUSH 25 mg BID [facility] Administration Propofol 1,000,000 mcg in 100 mls @ 3.266 mls/hr 12/17/19 04:30 01/06/20 0 9:26 Diprivan - IVPB 15 mcg/kg/min TITR [facility] 9.798 mls/hr Administration Protocol 5 MCG/KG/MIN Midazolam HCl 100 mg in 100 mls @ 1 mls/hr 12/22/19 08:00 01/06/20 01:06 Midazolam 100mg/100ml-0.9%Nacl IVPB 5 mg/hr TITR [facility] 5 mls/hr Administration Protocol 1 MG/HR Metoprolol Tartrate 25 mg 12/19/19 12:00 01/06/20 09:26 Lopressor - PO 25 mg BID [facility] Administration Multivitamins/Minerals/Vitamin C 1 tab 12/17/19 10:00 01/05/20 10:08 Tab-A-Vit - PO 1 tab DAILY [facility] Administration Pantoprazole Sodium 40 mg 12/19/19 10:00 01/06/20 09:25 Protonix Iv IVPUSH 40 mg DAILY [facility] Administration ASSESSMENT/PLAN: 64 year old male with a past medical history of HTN, HLD, JUANA (not using CPAP), COPD, GERD, systolic congestive heart failure, paroxysmal atrial fibrillation (on Eliquis, s/p cardioversion 11/2016) who presented with 3 weeks of gradual onset anasarca, scrotal swelling and mild shortness of breath worse on exertion, found to have right lobe PNA, fluid overload, bilateral lower extremity cellulitis and bilateral hydrocele, and respiratory acidosis is admitted for Acu te hypercapneic respiratory failure and Acute CHF exacerbation #Neuro -propofol 15, versed 5 -sedation vacation as tolerated #CV -Fluid Overload 2/2 sCHF exacerbation -Cardiology following -hold home lisinopril -cont metoprolol 25 BID -Eliquis 5mg BID -LIJ removed yesterday #Pulm -Acute hypercapneic resp failure 2/2 to Community acquired pneumonia vs COPD exacerbation -CXR today left pleural effusion, final radiology read pending -/ -Hydrocortisone 25 BID (day 2 down from 50mg BID) #ID Bilateral Lower Extremity Cellulitis, improved s/p abx -tmax 100.6 today, last cultures on 12/26 -new blood and urine cultures -ID following #Renal -uremia improving -Cr stable -hypernatremic 150, monitor #Heme -Hb stable DVT ppx Eliquis GI ppx protonix Lines ET 7.5 FEN no standing fluids monitor Na continue feeds Dispo: ICU Mother was visiting at bedside today. FULL CODE Visit type - Emergency Visit Emergency Visit: Yes ED Registration Date: 12/16/19 Care time: The patient presented to the Emergency Department on the above date and was hospitalized for further evaluation of their emergent condition. - New Patient This patient is new to me today: Yes Date on this admission: 01/06/20 - Critical Care Critical Care patient: Yes Total Critical Care Time (in minutes): 45 Critical Care Statement: The care of this patient involved high complexity decision making to prevent further life threatening deterioration of the patient's condition and/or to evaluate & treat vital organ system(s) failure or risk of failure. ATTENDING PHYSICIAN STATEMENT I saw and evaluated the patient. I reviewed the resident's note and discussed the case with the resident. I agree with the resident's findings and plan as documented. SUBJECTIVE: OBJECTIVE: ASSESSMENT AND PLAN:
[2020-01-06] MEDS: ACETAMINOPHEN 1000 MG/100 ML VIAL (NON FORMULARY) IVPB PRN (17:42)
--- NOTE | 2020-01-06 18:43 | PN ---
Progress Note, Physician History of Present Illness: Pt seen in ICU. Remains intubated/sedated, off pressors. Low grade fevers to 100.6F today. - Current Medication List Current Medications: Active Medications Acetaminophen (Ofirmev Injection -) 1,000 mg IVPB Q6H PRN PRN Reason: FEVER Last Admin: 01/06/20 17:42 Dose: 1,000 mg Documented by: Albuterol/Ipratropium (Duoneb -) 1 amp NEB Q4H PRN PRN Reason: SHORTNESS OF BREATH Amino Acids (Prosource No Carb Liquid Pkt) 30 ml NGT DAILY [facility] Apixaban (Eliquis -) 5 mg PO BID [facility] Last Admin: 01/06/20 09:26 Dose: 5 mg Documented by: Ascorbic Acid (Vitamin C -) 1,000 mg PO DAILY [facility] Last Admin: 01/06/20 09:26 Dose: 1,000 mg Documented by: Chlorhexidine Gluconate (Peridex -) 15 ml MM BID [facility] Last Admin: 01/06/20 09:25 Dose: 15 ml Documented by: Hydrocortisone Sodium Succinate (Solu-Cortef -) 25 mg IVPUSH BID [facility] Last Admin: 01/06/20 09:25 Dose: 25 mg Documented by: Propofol (Diprivan -) 1,000,000 mcg in 100 mls @ 3.266 mls/hr IVPB TITR [facility]; Protocol Last Admin: 01/06/20 09:26 Dose: 15 mcg/kg/min, 9.798 mls/hr Documented by: Midazolam HCl (Midazolam 100mg/100ml-0.9%Nacl) 100 mg in 100 mls @ 1 mls/hr IVPB TITR [facility]; Protocol Last Admin: 01/06/20 17:43 Dose: Not Given Documented by: Metoprolol Tartrate (Lopressor -) 25 mg PO BID [facility] Last Admin: 01/06/20 09:26 Dose: 25 mg Documented by: Multivitamins/Minerals/Vitamin C (Tab-A-Vit -) 1 tab PO DAILY [facility] Last Admin: 01/06/20 10:43 Dose: 1 tab Documented by: Pantoprazole Sodium (Protonix Iv) 40 mg IVPUSH DAILY [facility] Last Admin: 01/06/20 09:25 Dose: 40 mg Documented by: - Objective Vital Signs: Vital Signs Temperature 100.6 F H 01/06/20 14:00 Pulse Rate 83 01/06/20 16:00 Respiratory Rate 18 01/06/20 16:10 Blood Pressure 116/66 01/06/20 16:00 O2 Sat by Pulse Oximetry (%) 95 01/06/20 16:10 Constitutional: Yes: No Distress, Calm, Other (sedated) Eyes: Yes: Conjunctiva Clear Cardiovascular: Yes: Regular Rate and Rhythm Respiratory: Yes: Regular, Mechanically Ventilated Gastrointestinal: Yes: Normal Bowel Sounds, Soft, Abdomen, Obese Genitourinary: Yes: Hilario Present Neurological: Yes: Other (sedated) Labs: CBC, BMP 01/06/20 05:50 01/06/20 05:50 INR, PTT INR 1.34 (0.83-1.09) H 12/16/19 18:40 Laboratory Last Values WBC 8.4 K/mm3 (4.0-10.0) 01/06/20 05:50 Corrected WBC (auto) 8.60 K/mm3 12/19/19 06:00 RBC 5.83 M/mm3 (4.00-5.60) H 01/06/20 05:50 Hgb 13.2 GM/dL (11.7-16.9) 01/06/20 05:50 Hct 47.6 % (35.4-49) 01/06/20 05:50 MCV 81.7 fl (80-96) 01/06/20 05:50 MCH 22.7 pg (25.7-33.7) L 01/06/20 05:50 MCHC 27.8 g/dl (32.0-35.9) L 01/06/20 05:50 RDW 23.5 % (11.9-15.9) H 01/06/20 05:50 Plt Count 150 K/MM3 (134-434) 01/06/20 05:50 MPV 10.7 fl (7.5-11.1) 01/06/20 05:50 Absolute Neuts (auto) 6.4 K/mm3 (1.5-8.0) 01/06/20 05:50 Neutrophils % 75.8 % (42.8-82.8) 01/06/20 05:50 Lymphocytes % 10.3 % (8-40) D 01/06/20 05:50 Monocytes % 10.1 % (3.8-10.2) 01/06/20 05:50 Eosinophils % 2.6 % (0-4.5) 01/06/20 05:50 Basophils % 1.2 % (0-2.0) D 01/06/20 05:50 Nucleated RBC % 0 % (0-0) 01/06/20 05:50 Manual Slide Review 12/28/19 06:00 Hypochromia 0 01/06/20 05:50 Platelet Estimate Normal 01/06/20 05:50 Platelet Comment 01/02/20 05:00 Polychromasia 0 01/06/20 05:50 Poikilocytosis 0 01/06/20 05:50 Anisocytosis 1+ 01/06/20 05:50 Microcytosis 0 01/06/20 05:50 Macrocytosis 1+ 01/06/20 05:50 Spherocytes 1+ 01/02/20 05:00 Target Cells 1+ 12/16/19 18:40 Tear Drop Cells 1+ 01/02/20 05:00 Ovalocytes 1+ 01/02/20 05:00 PT with INR 15.90 SEC (9.7-13.0) H 12/16/19 18:40 INR 1.34 (0.83-1.09) H 12/16/19 18:40 Anticoagulation Therapy No Result Required. 01/05/20 06:00 Puncture Site Right radial 01/05/20 06:00 Patient Temperature No Result Required. 01/05/20 06:00 ABG pH 7.439 (7.350-7.450) 01/05/20 06:00 ABG pCO2 52.50 mmHg (35-45) H 01/05/20 06:00 ABG pCO2 at Pt Temp 54.6 mmHg (35-45) H 12/20/19 06:00 ABG pO2 101.9 mmHg (80-100) H 01/05/20 06:00 ABG pO2 at Pt Temp 88.3 mmHg (80-100) 12/20/19 06:00 ABG HCO3 34.8 mmol/L (22-27) H 01/05/20 06:00 ABG O2 Sat (Measured) 97.7 mmHg (95-98) 01/05/20 06:00 ABG O2 Content No Result Required. 01/05/20 06:00 ABG Base Excess 8.8 mmol/L (-2-2) H 01/05/20 06:00 Ye Test Positive 01/05/20 06:00 VBG pH 7.480 (7.310-7.410) H 12/22/19 11:45 POC VBG pCO2 50.5 mmHg (38-52) 12/22/19 11:45 POC VBG pO2 52.0 mmHg (28-48) H 12/22/19 11:45 VBG HCO3 36.9 mmol/L (23-29) H 12/22/19 11:45 VBG O2 Sat (Francis) 88.7 % (70-80) H 12/22/19 11:45 VBG Base Excess 11.1 mmol/L (-2-2) H 12/22/19 11:45 Patient On Oxygen Yes 01/05/20 06:00 O2 Delivery Device Vent 01/05/20 06:00 Oxygen Flow Rate 60% 01/05/20 06:00 Vent Mode A/c 01/05/20 06:00 Vent Rate 18 01/05/20 06:00 Mechanical Rate No Result Required. 01/05/20 06:00 PEEP 10.0 cmH2O 01/05/20 06:00 Pressure Support Vent 450 01/05/20 06:00 Sodium 150 mmol/L (136-145) H 01/06/20 05:50 Potassium 3.7 mmol/L (3.5-5.1) 01/06/20 05:50 Chloride 108 mmol/L (98-107) H 01/06/20 05:50 Carbon Dioxide 37 mmol/L (21-32) H 01/06/20 05:50 Anion Gap 5 MMOL/L (8-16) L 01/06/20 05:50 BUN 44.3 mg/dL (7-18) H 01/06/20 05:50 Creatinine 0.6 mg/dL (0.55-1.3) 01/06/20 05:50 Est GFR (CKD-EPI)AfAm 121.43 01/06/20 05:50 Est GFR (CKD-EPI)NonAf 104.77 01/06/20 05:50 POC Glucometer 162 UNITS (80-120) 01/06/20 11:36 Random Glucose 163 mg/dL (74-106) H 01/06/20 05:50 Calcium 9.1 mg/dL (8.5-10.1) 01/06/20 05:50 Phosphorus 3.1 mg/dL (2.5-4.9) 01/06/20 05:50 Magnesium 2.4 mg/dL (1.8-2.4) 01/06/20 05:50 Total Bilirubin 2.5 mg/dL (0.2-1) H 01/06/20 05:50 AST 37 U/L (15-37) 01/06/20 05:50 ALT 72 U/L (13-61) H 01/06/20 05:50 Alkaline Phosphatase 100 U/L (45-117) 01/06/20 05:50 Creatine Kinase 50 U/L (26-308) 12/20/19 07:30 Troponin I 0.08 ng/ml (0.00-0.05) H 12/20/19 12:15 B-Natriuretic Peptide 338.6 pg/ml (5-125) H 01/01/20 05:25 Total Protein 5.5 g/dl (6.4-8.2) L 01/06/20 05:50 Albumin 2.2 g/dl (3.4-5.0) L 01/06/20 05:50 Triglycerides 219 mg/dL (0-150) H 01/05/20 05:00 Random Vancomycin 16.2 ug/ml (5-26) 12/29/19 06:00 Vancomycin Pre-Dose 22.4 ug/ml (5-10) H 12/26/19 13:28 COVID-19 (RAJENDRA) Not detected (Not Detected) 12/16/19 21:25 Microbiology 12/27/19 21:00 Blood - Peripheral Venous Blood Culture - Final NO GROWTH AFTER 5 DAYS INCUBATION 12/27/19 21:00 Blood - Peripheral Venous Blood Culture - Final NO GROWTH AFTER 5 DAYS INCUBATION 12/25/19 20:40 Blood - Peripheral Venous Blood Culture - Final NO GROWTH AFTER 5 DAYS INCUBATION 12/25/19 20:30 Blood - Peripheral Venous Blood Culture - Final NO GROWTH AFTER 5 DAYS INCUBATION 12/27/19 14:00 Urine - Urine Hilario Urine Culture - Final NO GROWTH OBTAINED 12/23/19 18:00 Sputum - Endotrachea Suction/Ventilator Gram Stain - Final 12/23/19 18:00 Sputum - Endotrachea Suction/Ventilator Sputum Culture - Final NORMAL RESPIRATORY PEYTON 12/23/19 17:51 Urine - Urine Hilario Urine Culture - Final NO GROWTH OBTAINED 12/16/19 20:13 Blood - Peripheral Venous Blood Culture - Final NO GROWTH AFTER 5 DAYS INCUBATION 12/16/19 19:50 Blood - Peripheral Venous Blood Culture - Final NO GROWTH AFTER 5 DAYS INCUBATION - ....Imaging Chest X-ray: Pending Problem List - Problems (1) Edema of scrotum Code(s): N50.89 - OTHER SPECIFIED DISORDERS OF THE MALE GENITAL ORGANS (2) Morbid obesity Code(s): E66.01 - MORBID (SEVERE) OBESITY DUE TO EXCESS CALORIES (3) Acute on chronic diastolic (congestive) heart failure Code(s): I50.33 - ACUTE ON CHRONIC DIASTOLIC (CONGESTIVE) HEART FAILURE (4) Acute respiratory failure requiring reintubation Code(s): J96.00 - ACUTE RESPIRATORY FAILURE, UNSP W HYPOXIA OR HYPERCAPNIA (5) Afib Code(s): I48.91 - UNSPECIFIED ATRIAL FIBRILLATION Qualifiers: Atrial fibrillation type: paroxysmal Qualified Code(s): I48.0 - Paroxysmal atrial fibrillation Assessment/Plan Acute respiratory failure/MV Septic ayan CHF PNA b/l LE Cellulitis b/l Hydrocele MONIE Paroxysmal AFIB COPD JUANA CAD HTN HLD -- events reviewed, imaging/lab results noted -- remains intubated/sedated -- s/p course of antibiotics completed 1 wk ago now with low grade fevers -- repeat blood, urine, sputum cultures -- follow up CXR results -- continue monitor temp trend, wbc cc time: 38 min
[2020-01-07] MEDS: PROPOFOL 1,000,000 MCG/100 ML VIAL IVPB SCH ×2 (05:23→10:29)
[2020-01-07 07:57] LABS: ALBUMIN 2.1 g/dl (3.4-5.0); BILIRUBIN,TOTAL 2.3 mg/dL (0.2-1); BLOOD UREA NITROGEN 35.2 mg/dL (7-18); CALCIUM 8.6 mg/dL (8.5-10.1); CREATININE 0.5 mg/dL (0.55-1.3); MAGNESIUM 2.2 mg/dL (1.8-2.4); PHOSPHOROUS 3.6 mg/dL (2.5-4.9); POTASSIUM 3.5 mmol/L (3.5-5.1); TOT PROT 5.3 g/dl (6.4-8.2)
[2020-01-07] MEDS ORDERED: SODIUM CHLORIDE 1,000 ML IV SCH (08:15)
[2020-01-07] MEDS ORDERED: SODIUM CHLORIDE 0.45% 1,000 ML IV SCH (08:15)
[2020-01-07 08:42] LABS: BASO % 0.5 % (0-2.0); EOS % 0.3 % (0-4.5); HEMOGLOBIN 13.2 GM/dL (11.7-16.9); LYMPH % 13.8 % (8-40); MCH 23.8 pg (25.7-33.7); MCHC 28.7 g/dl (32.0-35.9); MEAN PLT VOLUME 10.6 fl (7.5-11.1); MONO % 8.9 % (3.8-10.2); NEUT % 76.5 % (42.8-82.8); PLATELET COUNT 118 K/MM3 (134-434); RBC 5.54 M/mm3 (4.00-5.60); RDW 23.3 % (11.9-15.9); WHITE BLOOD COUNT 7.6 K/mm3 (4.0-10.0)
[2020-01-07] MEDS: AMINO ACIDS/PROTEIN HYDROLYS 30 ML LIQUID.PKT NGT SCH (10:25)
[2020-01-07] MEDS: CHLORHEXIDINE GLUCONATE 0.12% 15ML CUP MM SCH ×2 (10:26→21:12)
[2020-01-07] MEDS: PANTOPRAZOLE SODIUM 40 MG VIAL IVPUSH SCH (10:26)
[2020-01-07] MEDS: ASCORBIC ACID 500 MG TABLET (FP) PO SCH (10:26)
[2020-01-07] MEDS: APIXABAN 5 MG TABLET PO SCH ×2 (10:26→21:12)
[2020-01-07] MEDS: HYDROCORTISONE SOD SUCCINATE 100 MG/2 ML VIAL IVPUSH SCH (10:26)
[2020-01-07] MEDS: MULTIVITAMINS (DAILY MVI) TABLET (FP) PO SCH (10:27)
[2020-01-07] MEDS: MIDAZOLAM IN 0.9 % SOD.CHLORID 100 MG/100 ML PLAST..BAG IVPB SCH ×2 (10:28)
[2020-01-07] MEDS: METOPROLOL TARTRATE 25 MG TABLET (FP) PO SCH ×2 (10:29→21:12)
--- NOTE | 2020-01-07 11:08 | PN ---
Teaching Attending Note Name of Resident: Lily Hernandez ATTENDING PHYSICIAN STATEMENT I saw and evaluated the patient. I reviewed the resident's note and discussed the case with the resident. I agree with the resident's findings and plan as documented. SUBJECTIVE: Pt seen and examined in the ICU. Remains intubated, sedated. Vented on volume assist control with 50% FiO2, PEEP 8. No pressors. OBJECTIVE: Vital Signs Period Temp Pulse Resp BP Sys/Clements Pulse Ox Last 24 Hr 97.7 F-100.6 F 65-89 16-22 103-123/56-71 94-98 Intake & Output 01/04/20 01/05/20 01/06/20 01/07/20 23:59 23:59 23:59 23:59 Intake Total 1388 1533 3525.6 1440 Output Total 1500 1800 905 700 Balance -112 -267 2620.6 740 Weight 105.233 kg 104.372 kg 104.326 kg 103.918 kg Gen: intubated, sedated Heart: RRR Lung: scattered rhonchi Abd: soft, nontender Ext: no edema CBC, BMP 01/07/20 06:05 01/07/20 06:05 Active Medications Acetaminophen (Ofirmev Injection -) 1,000 mg IVPB Q6H PRN PRN Reason: FEVER Last Admin: 01/06/20 17:42 Dose: 1,000 mg Documented by: Amino Acids (Prosource No Carb Liquid Pkt) 30 ml NGT DAILY [facility] Last Admin: 01/07/20 10:25 Dose: 30 ml Documented by: Apixaban (Eliquis -) 5 mg PO BID [facility] Last Admin: 01/07/20 10:26 Dose: 5 mg Documented by: Ascorbic Acid (Vitamin C -) 1,000 mg PO DAILY [facility] Last Admin: 01/07/20 10:26 Dose: 1,000 mg Documented by: Chlorhexidine Gluconate (Peridex -) 15 ml MM BID [facility] Last Admin: 01/07/20 10:26 Dose: 15 ml Documented by: Hydrocortisone Sodium Succinate (Solu-Cortef -) 25 mg IVPUSH BID [facility] Last Admin: 01/07/20 10:26 Dose: 25 mg Documented by: Propofol (Diprivan -) 1,000,000 mcg in 100 mls @ 3.266 mls/hr IVPB TITR [facility]; Protocol Last Admin: 01/07/20 10:29 Dose: 15 mcg/kg/min, 9.798 mls/hr Documented by: Midazolam HCl (Midazolam 100mg/100ml-0.9%Nacl) 100 mg in 100 mls @ 1 mls/hr IVPB TITR [facility]; Protocol Last Admin: 01/07/20 10:28 Dose: 5 mg/hr, 5 mls/hr Documented by: Sodium Chloride (1/2 Normal Saline) 1,000 mls @ 75 mls/hr IV ASDIR [facility] Metoprolol Tartrate (Lopressor -) 25 mg PO BID [facility] Last Admin: 01/07/20 10:29 Dose: 25 mg Documented by: Multivitamins/Minerals/Vitamin C (Tab-A-Vit -) 1 tab PO DAILY [facility] Last Admin: 01/07/20 10:27 Dose: 1 tab Documented by: Pantoprazole Sodium (Protonix Iv) 40 mg IVPUSH DAILY [facility] Last Admin: 01/07/20 10:26 Dose: 40 mg Documented by: ASSESSMENT AND PLAN: Acute on Chronic Hypoxic and Hypercapneic Respiratory Failure Pneumonia ARDS Septic Shock Acute on Chronic Diastolic Heart Failure Pulmonary HTN Paroxysmal Atrial Fibrillation CAD Acute Kidney Injury Likely COPD JUANA/OHS HTN Hypercholesterolemia - completed antibiotics per ID - off pressors, maintain MAP >65 - taper off steroids - rate control - continue anticoagulation, transition to LMWH for possible trach - low tidal volume ventilation - titrate FiO2, PEEP to keep SpO2 >90% - lasix as needed - monitor urine output, creatinine - daily sedation vacations to assess mental status - spontaneous breathing trials as tolerated when mental status improved - enteral feeds - DVT/GI prophylaxis - continue ICU monitoring - may need tracheostomy for prolonged intubation and failure to wean critical care time spent in reviewing chart, evaluating patient and formulating plan 35 min
[2020-01-07 12:25] LABS: PLATELET ESTIMATE DECREASED
--- NOTE | 2020-01-07 14:36 | PN ---
Progress Note, Physician Chief Complaint: Events noted Remains intubated and sedated History of Present Illness: Patient was seen and examined in ICU. On mechanical ventilator. Chart was reviewed - Current Medication List Current Medications: Active Medications Acetaminophen (Ofirmev Injection -) 1,000 mg IVPB Q6H PRN PRN Reason: FEVER Last Admin: 01/06/20 17:42 Dose: 1,000 mg Documented by: Amino Acids (Prosource No Carb Liquid Pkt) 30 ml NGT DAILY [facility] Last Admin: 01/07/20 10:25 Dose: 30 ml Documented by: Apixaban (Eliquis -) 5 mg PO BID [facility] Last Admin: 01/07/20 10:26 Dose: 5 mg Documented by: Ascorbic Acid (Vitamin C -) 1,000 mg PO DAILY [facility] Last Admin: 01/07/20 10:26 Dose: 1,000 mg Documented by: Chlorhexidine Gluconate (Peridex -) 15 ml MM BID [facility] Last Admin: 01/07/20 10:26 Dose: 15 ml Documented by: Propofol (Diprivan -) 1,000,000 mcg in 100 mls @ 3.266 mls/hr IVPB TITR [facility]; Protocol Last Admin: 01/07/20 10:29 Dose: 15 mcg/kg/min, 9.798 mls/hr Documented by: Midazolam HCl (Midazolam 100mg/100ml-0.9%Nacl) 100 mg in 100 mls @ 1 mls/hr IVPB TITR [facility]; Protocol Last Admin: 01/07/20 10:28 Dose: 5 mg/hr, 5 mls/hr Documented by: Sodium Chloride (1/2 Normal Saline) 1,000 mls @ 75 mls/hr IV ASDIR [facility] Metoprolol Tartrate (Lopressor -) 25 mg PO BID [facility] Last Admin: 01/07/20 10:29 Dose: 25 mg Documented by: Multivitamins/Minerals/Vitamin C (Tab-A-Vit -) 1 tab PO DAILY [facility] Last Admin: 01/07/20 10:27 Dose: 1 tab Documented by: Pantoprazole Sodium (Protonix Iv) 40 mg IVPUSH DAILY [facility] Last Admin: 01/07/20 10:26 Dose: 40 mg Documented by: - Objective Vital Signs: Vital Signs Temperature 97.7 F 01/07/20 08:00 Pulse Rate 68 01/07/20 12:00 Respiratory Rate 18 01/07/20 12:10 Blood Pressure 114/70 01/07/20 12:00 O2 Sat by Pulse Oximetry (%) 98 01/07/20 10:06 Cardiovascular: Yes: Regular Rate and Rhythm, S1, S2 Respiratory: Yes: Mechanically Ventilated Gastrointestinal: Yes: Normal Bowel Sounds, Soft. No: Tenderness Edema: No Labs: CBC, BMP 01/07/20 06:05 01/07/20 06:05 Problem List - Problems (1) Congestive heart failure (CHF) Code(s): I50.9 - HEART FAILURE, UNSPECIFIED Qualifiers: Heart failure type: diastolic Heart failure chronicity: acute on chronic Qualified Code(s): I50.33 - Acute on chronic diastolic (congestive) heart failure (2) Pleural effusion Code(s): J90 - PLEURAL EFFUSION, NOT ELSEWHERE CLASSIFIED (3) Pneumonia Code(s): J18.9 - PNEUMONIA, UNSPECIFIED ORGANISM Qualifiers: Pneumonia type: due to unspecified organism Laterality: right Lung location: lower lobe of lung Qualified Code(s): J18.9 - Pneumonia, unspecified organism (4) Acute hypercapnic respiratory failure Code(s): J96.02 - ACUTE RESPIRATORY FAILURE WITH HYPERCAPNIA (5) Acute respiratory failure with hypoxia and hypercarbia Code(s): J96.01 - ACUTE RESPIRATORY FAILURE WITH HYPOXIA; J96.02 - ACUTE RESPIRATORY FAILURE WITH HYPERCAPNIA (6) Atrial fibrillation Code(s): I48.91 - UNSPECIFIED ATRIAL FIBRILLATION Qualifiers: Atrial fibrillation type: paroxysmal Qualified Code(s): I48.0 - Paroxysmal atrial fibrillation (7) COPD (chronic obstructive pulmonary disease) Code(s): J44.9 - CHRONIC OBSTRUCTIVE PULMONARY DISEASE, UNSPECIFIED Qualifiers: COPD type: unspecified COPD Qualified Code(s): J44.9 - Chronic obstructive pulmonary disease, unspecified (8) Hypertension Code(s): I10 - ESSENTIAL (PRIMARY) HYPERTENSION Qualifiers: Hypertension type: essential hypertension Qualified Code(s): I10 - Essential (primary) hypertension (9) Respiratory failure requiring intubation Code(s): J96.90 - RESPIRATORY FAILURE, UNSP, UNSP W HYPOXIA OR HYPERCAPNIA (10) Sleep apnea Code(s): G47.30 - SLEEP APNEA, UNSPECIFIED Qualifiers: Sleep apnea type: obstructive Qualified Code(s): G47.33 - Obstructive sleep apnea (adult) (pediatric) (11) Systolic and diastolic CHF, chronic Code(s): I50.42 - CHRONIC COMBINED SYSTOLIC AND DIASTOLIC HRT FAIL Assessment/Plan 1. Acute on chronic Hypoxic and Hypercapneic Respiratory Failure, currently intubated 2. Acute on chronic LV Diastolic Heart Failure with pleural effusion 3. Pneumonia (septic shock) 4. Paroxysmal atrial fibrillation with periods of rapid ventricular response post DCCV, [id number] score of 2 5. Obstructive Sleep Apnea/Obesity 6. HTN/HCVD 7. Hypercholesterolemia 8. CAD, angina pectoris 9. Bilateral cellulitis with h/o abscess s/p debridement 10. Bilateral hydrocele PLAN: 1. Vent management as per ICU team. Tracheostomy if prolonged weaning is expected 2. DVT and GI prophylaxis and enteral feeds 3. Diuretics as needed with monitor renal function and electrolytes 4. Continue Lopressor 25 mg BID and Eliquis 5 mg BID Guarded Khalif Correa MD
--- NOTE | 2020-01-07 18:46 | PN ---
Progress Note, Physician History of Present Illness: Pt intubated/sedated. Without distress. Afebrile today. - Current Medication List Current Medications: Active Medications Acetaminophen (Ofirmev Injection -) 1,000 mg IVPB Q6H PRN PRN Reason: FEVER Last Admin: 01/06/20 17:42 Dose: 1,000 mg Documented by: Amino Acids (Prosource No Carb Liquid Pkt) 30 ml NGT DAILY [facility] Last Admin: 01/07/20 10:25 Dose: 30 ml Documented by: Apixaban (Eliquis -) 5 mg PO BID [facility] Last Admin: 01/07/20 10:26 Dose: 5 mg Documented by: Ascorbic Acid (Vitamin C -) 1,000 mg PO DAILY [facility] Last Admin: 01/07/20 10:26 Dose: 1,000 mg Documented by: Chlorhexidine Gluconate (Peridex -) 15 ml MM BID [facility] Last Admin: 01/07/20 10:26 Dose: 15 ml Documented by: Propofol (Diprivan -) 1,000,000 mcg in 100 mls @ 3.266 mls/hr IVPB TITR [facility]; Protocol Last Admin: 01/07/20 10:29 Dose: 15 mcg/kg/min, 9.798 mls/hr Documented by: Midazolam HCl (Midazolam 100mg/100ml-0.9%Nacl) 100 mg in 100 mls @ 1 mls/hr IVPB TITR [facility]; Protocol Last Admin: 01/07/20 10:28 Dose: 5 mg/hr, 5 mls/hr Documented by: Sodium Chloride (1/2 Normal Saline) 1,000 mls @ 75 mls/hr IV ASDIR [facility] Metoprolol Tartrate (Lopressor -) 25 mg PO BID [facility] Last Admin: 01/07/20 10:29 Dose: 25 mg Documented by: Multivitamins/Minerals/Vitamin C (Tab-A-Vit -) 1 tab PO DAILY [facility] Last Admin: 01/07/20 10:27 Dose: 1 tab Documented by: Pantoprazole Sodium (Protonix Iv) 40 mg IVPUSH DAILY [facility] Last Admin: 01/07/20 10:26 Dose: 40 mg Documented by: - Objective Vital Signs: Vital Signs Temperature 97 F L 01/07/20 18:00 Pulse Rate 62 01/07/20 18:00 Respiratory Rate 18 01/07/20 18:00 Blood Pressure 108/64 01/07/20 18:00 O2 Sat by Pulse Oximetry (%) 98 01/07/20 16:32 Constitutional: Yes: No Distress Cardiovascular: Yes: Regular Rate and Rhythm Respiratory: Yes: Mechanically Ventilated Gastrointestinal: Yes: Normal Bowel Sounds, Soft Neurological: Yes: Other (sedated) Labs: CBC, BMP 01/07/20 06:05 01/07/20 06:05 INR, PTT INR 1.34 (0.83-1.09) H 12/16/19 18:40 Laboratory Results - last 24 hr 01/07/20 01/07/20 06:05 06:05 WBC 7.6 RBC 5.54 Hgb 13.2 Hct 46.0 MCV 83.0 MCH 23.8 L MCHC 28.7 L RDW 23.3 H Plt Count 118 L D MPV 10.6 Absolute Neuts (auto) 5.8 Neutrophils % 76.5 Lymphocytes % 13.8 D Monocytes % 8.9 Eosinophils % 0.3 D Basophils % 0.5 Nucleated RBC % 0 Platelet Estimate Decreased Platelet Comment Present Sodium 147 H Potassium 3.5 Chloride 105 Carbon Dioxide 36 H Anion Gap 6 L BUN 35.2 H Creatinine 0.5 L Est GFR (CKD-EPI)AfAm 130.88 Est GFR (CKD-EPI)NonAf 112.92 Random Glucose 197 H Calcium 8.6 Phosphorus 3.6 Magnesium 2.2 Total Bilirubin 2.3 H AST 42 H ALT 75 H Alkaline Phosphatase 90 Total Protein 5.3 L Albumin 2.1 L Microbiology 12/27/19 21:00 Blood - Peripheral Venous Blood Culture - Final NO GROWTH AFTER 5 DAYS INCUBATION 12/27/19 21:00 Blood - Peripheral Venous Blood Culture - Final NO GROWTH AFTER 5 DAYS INCUBATION 12/25/19 20:40 Blood - Peripheral Venous Blood Culture - Final NO GROWTH AFTER 5 DAYS INCUBATION 12/25/19 20:30 Blood - Peripheral Venous Blood Culture - Final NO GROWTH AFTER 5 DAYS INCUBATION 12/27/19 14:00 Urine - Urine Hilario Urine Culture - Final NO GROWTH OBTAINED 12/23/19 18:00 Sputum - Endotrachea Suction/Ventilator Gram Stain - Final 12/23/19 18:00 Sputum - Endotrachea Suction/Ventilator Sputum Culture - Final NORMAL RESPIRATORY PEYTON 12/23/19 17:51 Urine - Urine Hilario Urine Culture - Final NO GROWTH OBTAINED 12/16/19 20:13 Blood - Peripheral Venous Blood Culture - Final NO GROWTH AFTER 5 DAYS INCUBATION 12/16/19 19:50 Blood - Peripheral Venous Blood Culture - Final NO GROWTH AFTER 5 DAYS INCUBATION - ....Imaging Chest X-ray: Report Reviewed Problem List - Problems (1) Edema of scrotum Code(s): N50.89 - OTHER SPECIFIED DISORDERS OF THE MALE GENITAL ORGANS (2) Morbid obesity Code(s): E66.01 - MORBID (SEVERE) OBESITY DUE TO EXCESS CALORIES (3) Acute on chronic diastolic (congestive) heart failure Code(s): I50.33 - ACUTE ON CHRONIC DIASTOLIC (CONGESTIVE) HEART FAILURE (4) Acute respiratory failure requiring reintubation Code(s): J96.00 - ACUTE RESPIRATORY FAILURE, UNSP W HYPOXIA OR HYPERCAPNIA (5) Afib Code(s): I48.91 - UNSPECIFIED ATRIAL FIBRILLATION Qualifiers: Atrial fibrillation type: paroxysmal Qualified Code(s): I48.0 - Paroxysmal atrial fibrillation Assessment/Plan Acute respiratory failure/MV Septic shock CHF PNA b/l LE Cellulitis b/l Hydrocele MONIE Paroxysmal AFIB COPD JUANA CAD HTN HLD -- pt with low grade fevers yesterday, blood/sputum culture results pending. Afebrile today, continue monitor off antibiotics for now. -- remains intubated/sedated -- s/p course of antibiotics completed 1 wk ago -- continue monitor temp trend, wbc cc time: 36 min
--- NOTE | 2020-01-07 20:52 | PN ---
Physical Exam: SUBJECTIVE: Patient seen and examined, remains intubated and sedated. Urine output 905cc. Was febrile overnight range 99.7 - 100.6 but has been afebrile since 2am. OBJECTIVE: Vital Signs Period Temp Pulse Resp BP Sys/Clements Pulse Ox Last 24 Hr 97 F-100 F 61-74 16-22 101-121/56-75 96-98 GENERAL: sedated and intubated HEAD: Normal with no signs of trauma. Eyes were slighly open and blinking, PERRL. LUNGS: Breath sounds from vent equal, clear to auscultation bilaterally, inspiratory rhonchi noted on L side. HEART: distant heart sounds. Regular rate and rhythm, S1, S2 without murmur, rub or gallop. ABDOMEN: distended, mildly rigid, active BS. EXTREMITIES: 1+ pitting edema bilaterally UE + LE NEUROLOGICAL: mildly responsive on sedation vacation SKIN: Warm, dark discoloration of shins bilaterally Laboratory Results - last 24 hr 01/07/20 01/07/20 06:05 06:05 WBC 7.6 RBC 5.54 Hgb 13.2 Hct 46.0 MCV 83.0 MCH 23.8 L MCHC 28.7 L RDW 23.3 H Plt Count 118 L D MPV 10.6 Absolute Neuts (auto) 5.8 Neutrophils % 76.5 Lymphocytes % 13.8 D Monocytes % 8.9 Eosinophils % 0.3 D Basophils % 0.5 Nucleated RBC % 0 Platelet Estimate Decreased Platelet Comment Present Sodium 147 H Potassium 3.5 Chloride 105 Carbon Dioxide 36 H Anion Gap 6 L BUN 35.2 H Creatinine 0.5 L Est GFR (CKD-EPI)AfAm 130.88 Est GFR (CKD-EPI)NonAf 112.92 Random Glucose 197 H Calcium 8.6 Phosphorus 3.6 Magnesium 2.2 Total Bilirubin 2.3 H AST 42 H ALT 75 H Alkaline Phosphatase 90 Total Protein 5.3 L Albumin 2.1 L Active Medications Generic Name Dose Route Start Last Admin Trade Name Freq PRN Reason Stop Dose Admin Acetaminophen 1,000 mg 01/06/20 17:18 01/06/20 17:42 Ofirmev Injection - IVPB 1,000 mg Q6H PRN Administration FEVER Amino Acids 30 ml 01/07/20 10:00 01/07/20 10:25 Prosource No Carb Liquid Pkt NGT 30 ml DAILY LYNETTE Administration Apixaban 5 mg 12/16/19 22:00 01/07/20 10:26 Eliquis - PO 5 mg BID LYNETTE Administration Ascorbic Acid 1,000 mg 12/17/19 10:00 01/07/20 10:26 Vitamin C - PO 1,000 mg DAILY LYNETTE Administration Chlorhexidine Gluconate 15 ml 12/22/19 12:30 01/07/20 10:26 Peridex - MM 15 ml BID LYNETTE Administration Propofol 1,000,000 mcg in 100 mls @ 3.266 mls/hr 12/17/19 04:30 01/07/20 10:29 Diprivan - IVPB 15 mcg/kg/min TITR LYNETTE 9.798 mls/hr Administration Protocol 5 MCG/KG/MIN Midazolam HCl 100 mg in 100 mls @ 1 mls/hr 12/22/19 08:00 01/07/20 10:28 Midazolam 100mg/100ml-0.9%Nacl IVPB 5 mg/hr TITR LYNETTE 5 mls/hr Administration Protocol 1 MG/HR Sodium Chloride 1,000 mls @ 75 mls/hr 01/07/20 08:15 1/2 Normal Saline IV ASDIR LYNETTE Metoprolol Tartrate 25 mg 12/19/19 12:00 01/07/20 10:29 Lopressor - PO 25 mg BID LYNETTE Administration Multivitamins/Minerals/Vitamin C 1 tab 12/17/19 10:00 01/07/20 10:27 Tab-A-Vit - PO 1 tab DAILY LYNETTE Administration Pantoprazole Sodium 40 mg 12/19/19 10:00 01/07/20 10:26 Protonix Iv IVPUSH 40 mg DAILY LYNETTE Administration CXR 01/06/2020 - some increased congestive/infiltrative changes in L base Vent: RR 18, TV 450, FiO2 40, PEEP 8 (sat 98%) Drips: 15 propofol, 5 midazolam ASSESSMENT/PLAN: 64yo M with PMHx of HTN, HLD, JUANA (not using CPAP), COPD, GERD, systolic CHF, afib on eliquis (s/p cardioversion 11/2016) who presented with R lobe pneumonia, fluid overload, bilateral LE cellulitis, bilateral hydrocele, and respiratory acidosis. Admitted for acute hypercapneic respiratory failure and acute CHF exacerbation. #Neuro - sedated, intubated, on propofol and midazolam #Cardio fluid overload secondary to CHF exacerbation - Continue metoprolol 25 mg BID and apixaban 5 mg BID - holding lisinopril until MONIE improves - continue metoprolol #Pulm acute hypercapneic respiratory failure due to CAP vs COPD exacerbation - panning for trach on Thursday - discontinued hydrocortisone #ID bilateral LE cellulitis - resolved - discontinued abx - blood cx, sputum cx, and UA pending #Renal - hypernatremia ongoing - will continue trending #Heme - Hg stable #PPX - DVT: apixaban - GI: pantoprazole #FEN - tube feeds per dietary #LTD - ET 7.5 - Hilario #Dispo will continue monitoring in the ICU mother's cell: [phone] Home: Brother Ady: [phone] Visit type - Emergency Visit Emergency Visit: Yes ED Registration Date: 12/16/19 Care time: The patient presented to the Emergency Department on the above date and was hospitalized for further evaluation of their emergent condition. - New Patient This patient is new to me today: No - Critical Care Critical Care patient: Yes Total Critical Care Time (in minutes): 36 Critical Care Statement: The care of this patient involved high complexity decision making to prevent further life threatening deterioration of the patient's condition and/or to evaluate & treat vital organ system(s) failure or risk of failure. ATTENDING PHYSICIAN STATEMENT I saw and evaluated the patient. I reviewed the resident's note and discussed the case with the resident. I agree with the resident's findings and plan as documented. SUBJECTIVE: OBJECTIVE: ASSESSMENT AND PLAN:
[2020-01-08] MEDS: PROPOFOL 1,000,000 MCG/100 ML VIAL IVPB SCH ×2 (06:06→09:39)
[2020-01-08 07:07] LABS: BASO % 0.8 % (0-2.0); EOS % 3.1 % (0-4.5); HEMATOCRIT 46.6 % (35.4-49); HEMOGLOBIN 13.1 GM/dL (11.7-16.9); LYMPH % 13.3 % (8-40); MCHC 28.2 g/dl (32.0-35.9); MEAN CELL VOLUME 81.6 fl (80-96); MEAN PLT VOLUME 10.4 fl (7.5-11.1); MONO % 7.8 % (3.8-10.2); PLATELET COUNT 92 K/MM3 (134-434); RBC 5.71 M/mm3 (4.00-5.60); RDW 23.3 % (11.9-15.9); WHITE BLOOD COUNT 8.3 K/mm3 (4.0-10.0)
[2020-01-08 07:25] LABS: BILIRUBIN,TOTAL 1.8 mg/dL (0.2-1); BLOOD UREA NITROGEN 32.8 mg/dL (7-18); CALCIUM 8.7 mg/dL (8.5-10.1); CREATININE 0.4 mg/dL (0.55-1.3); MAGNESIUM 2.1 mg/dL (1.8-2.4); PHOSPHOROUS 3.4 mg/dL (2.5-4.9); POTASSIUM 3.2 mmol/L (3.5-5.1); TOT PROT 5.1 g/dl (6.4-8.2)
[2020-01-08] MEDS ORDERED: PT OWN MED DRAWER 7, Y5N ONE (08:43)
[2020-01-08] MEDS: CHLORHEXIDINE GLUCONATE 0.12% 15ML CUP MM SCH ×2 (09:37→21:34)
[2020-01-08] MEDS: AMINO ACIDS/PROTEIN HYDROLYS 30 ML LIQUID.PKT NGT SCH (09:37)
[2020-01-08] MEDS: PANTOPRAZOLE SODIUM 40 MG VIAL IVPUSH SCH (09:38)
[2020-01-08] MEDS: MULTIVITAMINS (DAILY MVI) TABLET (FP) PO SCH (09:38)
[2020-01-08] MEDS: ASCORBIC ACID 500 MG TABLET (FP) PO SCH (09:38)
[2020-01-08] MEDS: METOPROLOL TARTRATE 25 MG TABLET (FP) PO SCH ×2 (09:38→21:34)
[2020-01-08] MEDS: APIXABAN 5 MG TABLET PO SCH ×2 (09:38→21:34)
[2020-01-08] MEDS: MIDAZOLAM IN 0.9 % SOD.CHLORID 100 MG/100 ML PLAST..BAG IVPB SCH (09:39)
[2020-01-08] MEDS: KCL 10 MEQ IVPB 10 MEQ/100 ML INFUS.BAG IVPB SCH ×3 (10:22→13:35)
--- NOTE | 2020-01-08 11:08 | PN ---
Progress Note, Physician Chief Complaint: Events noted Remains intubated and sedated History of Present Illness: Patient was seen and examined in ICU. On mechanical ventilator. Chart was reviewed - Current Medication List Current Medications: Active Medications Acetaminophen (Ofirmev Injection -) 1,000 mg IVPB Q6H PRN PRN Reason: FEVER Last Admin: 01/06/20 17:42 Dose: 1,000 mg Documented by: Amino Acids (Prosource No Carb Liquid Pkt) 30 ml NGT DAILY [facility] Last Admin: 01/08/20 09:37 Dose: 30 ml Documented by: Apixaban (Eliquis -) 5 mg PO BID LYNETTE Last Admin: 01/08/20 09:38 Dose: 5 mg Documented by: Ascorbic Acid (Vitamin C -) 1,000 mg PO DAILY [facility] Last Admin: 01/08/20 09:38 Dose: 1,000 mg Documented by: Chlorhexidine Gluconate (Peridex -) 15 ml MM BID [facility] Last Admin: 01/08/20 09:37 Dose: 15 ml Documented by: Propofol (Diprivan -) 1,000,000 mcg in 100 mls @ 3.266 mls/hr IVPB TITR [facility]; Protocol Last Admin: 01/08/20 09:39 Dose: 15 mcg/kg/min, 9.798 mls/hr Documented by: Midazolam HCl (Midazolam 100mg/100ml-0.9%Nacl) 100 mg in 100 mls @ 1 mls/hr IVPB TITR [facility]; Protocol Last Admin: 01/08/20 09:39 Dose: Not Given Documented by: Metoprolol Tartrate (Lopressor -) 25 mg PO BID [facility] Last Admin: 01/08/20 09:38 Dose: 25 mg Documented by: Multivitamins/Minerals/Vitamin C (Tab-A-Vit -) 1 tab PO DAILY [facility] Last Admin: 01/08/20 09:38 Dose: 1 tab Documented by: Pantoprazole Sodium (Protonix Iv) 40 mg IVPUSH DAILY [facility] Last Admin: 01/08/20 09:38 Dose: 40 mg Documented by: - Objective Vital Signs: Vital Signs Temperature 98.4 F 01/08/20 10:00 Pulse Rate 72 01/08/20 10:00 Respiratory Rate 28 H 01/08/20 10:00 Blood Pressure 108/72 01/08/20 10:00 O2 Sat by Pulse Oximetry (%) 98 01/08/20 09:02 Cardiovascular: Yes: Regular Rate and Rhythm Respiratory: Yes: Mechanically Ventilated Gastrointestinal: Yes: Normal Bowel Sounds, Soft. No: Tenderness Edema: No Labs: CBC, BMP 01/08/20 05:52 01/08/20 05:52 Problem List - Problems (1) Congestive heart failure (CHF) Code(s): I50.9 - HEART FAILURE, UNSPECIFIED Qualifiers: Heart failure type: diastolic Heart failure chronicity: acute on chronic Qualified Code(s): I50.33 - Acute on chronic diastolic (congestive) heart failure (2) Pleural effusion Code(s): J90 - PLEURAL EFFUSION, NOT ELSEWHERE CLASSIFIED (3) Pneumonia Code(s): J18.9 - PNEUMONIA, UNSPECIFIED ORGANISM Qualifiers: Pneumonia type: due to unspecified organism Laterality: right Lung location: lower lobe of lung Qualified Code(s): J18.9 - Pneumonia, unspecified organism (4) Acute hypercapnic respiratory failure Code(s): J96.02 - ACUTE RESPIRATORY FAILURE WITH HYPERCAPNIA (5) Acute respiratory failure with hypoxia and hypercarbia Code(s): J96.01 - ACUTE RESPIRATORY FAILURE WITH HYPOXIA; J96.02 - ACUTE RESPIRATORY FAILURE WITH HYPERCAPNIA (6) Atrial fibrillation Code(s): I48.91 - UNSPECIFIED ATRIAL FIBRILLATION Qualifiers: Atrial fibrillation type: paroxysmal Qualified Code(s): I48.0 - Paroxysmal atrial fibrillation (7) COPD (chronic obstructive pulmonary disease) Code(s): J44.9 - CHRONIC OBSTRUCTIVE PULMONARY DISEASE, UNSPECIFIED Qualifiers: COPD type: unspecified COPD Qualified Code(s): J44.9 - Chronic obstructive pulmonary disease, unspecified (8) Hypertension Code(s): I10 - ESSENTIAL (PRIMARY) HYPERTENSION Qualifiers: Hypertension type: essential hypertension Qualified Code(s): I10 - Essential (primary) hypertension (9) Respiratory failure requiring intubation Code(s): J96.90 - RESPIRATORY FAILURE, UNSP, UNSP W HYPOXIA OR HYPERCAPNIA (10) Sleep apnea Code(s): G47.30 - SLEEP APNEA, UNSPECIFIED Qualifiers: Sleep apnea type: obstructive Qualified Code(s): G47.33 - Obstructive sleep apnea (adult) (pediatric) (11) Systolic and diastolic CHF, chronic Code(s): I50.42 - CHRONIC COMBINED SYSTOLIC AND DIASTOLIC HRT FAIL Assessment/Plan 1. Acute on chronic Hypoxic and Hypercapneic Respiratory Failure, currently intubated 2. Acute on chronic LV Diastolic Heart Failure with pleural effusion 3. Pneumonia (septic shock) 4. Paroxysmal atrial fibrillation with periods of rapid ventricular response post DCCV, [id number] score of 2 5. Obstructive Sleep Apnea/Obesity 6. HTN/HCVD 7. Hypercholesterolemia 8. CAD, angina pectoris 9. Bilateral cellulitis with h/o abscess s/p debridement 10. Bilateral hydrocele PLAN: 1. Vent management as per ICU team. Tracheostomy if prolonged weaning is expected 2. DVT and GI prophylaxis and enteral feeds 3. Diuretics as needed with monitor renal function and electrolytes 4. Continue Lopressor 25 mg BID and Eliquis 5 mg BID Guarded. No events overnight Khalif Correa MD
--- NOTE | 2020-01-08 11:12 | PN ---
Teaching Attending Note Name of Resident: Rocio Bolanos ATTENDING PHYSICIAN STATEMENT I saw and evaluated the patient. I reviewed the resident's note and discussed the case with the resident. I agree with the resident's findings and plan as documented. SUBJECTIVE: Pt seen and examined in the ICU. Remains intubated, sedated. Vented on volume a ssist control with 50% FiO2, PEEP 8. No pressors. OBJECTIVE: Vital Signs Period Temp Pulse Resp BP Sys/Clements Pulse Ox Last 24 Hr 97 F-98.9 F 60-72 16-28 101-121/64-78 96-98 Intake & Output 01/05/20 01/06/20 01/07/20 01/08/20 23:59 23:59 23:59 23:59 Intake Total 1533 3525.6 2825.6 1440 Output Total 3789 137 8769 600 Balance -267 2620.6 1225.6 840 Weight 104.372 kg 104.326 kg 103.918 kg 106.821 kg Gen: intubated, sedated Heart: RRR Lung: scattered rhonchi Abd: soft, nontender Ext: no edema CBC, BMP 01/08/20 05:52 01/08/20 05:52 Active Medications Acetaminophen (Ofirmev Injection -) 1,000 mg IVPB Q6H PRN PRN Reason: FEVER Last Admin: 01/06/20 17:42 Dose: 1,000 mg Documented by: Amino Acids (Prosource No Carb Liquid Pkt) 30 ml NGT DAILY [facility] Last Admin: 01/08/20 09:37 Dose: 30 ml Documented by: Apixaban (Eliquis -) 5 mg PO BID [facility] Last Admin: 01/08/20 09:38 Dose: 5 mg Documented by: Ascorbic Acid (Vitamin C -) 1,000 mg PO DAILY [facility] Last Admin: 01/08/20 09:38 Dose: 1,000 mg Documented by: Chlorhexidine Gluconate (Peridex -) 15 ml MM BID [facility] Last Admin: 01/08/20 09:37 Dose: 15 ml Documented by: Propofol (Diprivan -) 1,000,000 mcg in 100 mls @ 3.266 mls/hr IVPB TITR [facility]; Protocol Last Admin: 01/08/20 09:39 Dose: 15 mcg/kg/min, 9.798 mls/hr Documented by: Midazolam HCl (Midazolam 100mg/100ml-0.9%Nacl) 100 mg in 100 mls @ 1 mls/hr IVPB TITR [facility]; Protocol Last Admin: 01/08/20 09:39 Dose: Not Given Documented by: Metoprolol Tartrate (Lopressor -) 25 mg PO BID [facility] Last Admin: 01/08/20 09:38 Dose: 25 mg Documented by: Multivitamins/Minerals/Vitamin C (Tab-A-Vit -) 1 tab PO DAILY [facility] Last Admin: 01/08/20 09:38 Dose: 1 tab Documented by: Pantoprazole Sodium (Protonix Iv) 40 mg IVPUSH DAILY [facility] Last Admin: 01/08/20 09:38 Dose: 40 mg Documented by: ASSESSMENT AND PLAN: Acute on Chronic Hypoxic and Hypercapneic Respiratory Failure Pneumonia ARDS Septic Shock Acute on Chronic Diastolic Heart Failure Pulmonary HTN Paroxysmal Atrial Fibrillation CAD Acute Kidney Injury Likely COPD JUANA/OHS HTN Hypercholesterolemia - completed antibiotics per ID - reculture if febrile - off pressors, maintain MAP >65 - taper off steroids - rate control - continue anticoagulation - low tidal volume ventilation - titrate FiO2, PEEP to keep SpO2 >90% - lasix as needed - monitor urine output, creatinine - daily sedation vacations to assess mental status - spontaneous breathing trials as tolerated when mental status improved - enteral feeds - DVT/GI prophylaxis - continue ICU monitoring - may need tracheostomy for prolonged intubation and failure to wean critical care time spent in reviewing chart, evaluating patient and formulating plan 35 min
--- NOTE | 2020-01-08 12:00 | PN ---
Physical Exam: SUBJECTIVE: Patient seen this morning, no acute events overnight OBJECTIVE: Vital Signs Period Temp Pulse Resp BP Sys/Clements Pulse Ox Last 24 Hr 97 F-98.9 F 60-72 16-28 101-121/64-78 96-98 GENERAL: The patient is sedated and intubated ENT: moist mucous membranes. LUNGS: Breath sounds equal, clear to auscultation bilaterally, no wheezes, no crackles HEART: Regular rate and rhythm, S1, S2 without murmur, rub or gallop. ABDOMEN: Soft, nontender, nondistended, normoactive bowel sounds, EXTREMITIES: 2+ pulses, warm, well-perfused, no edema. skin changed b/l lower extremity no cellulitis noted SKIN: Warm, dry, normal turgor, no rashes or lesions noted CBC, BMP 01/08/20 05:52 01/08/20 05:52 Active Medications Acetaminophen (Ofirmev Injection -) 1,000 mg IVPB Q6H PRN PRN Reason: FEVER Last Admin: 01/06/20 17:42 Dose: 1,000 mg Documented by: Amino Acids (Prosource No Carb Liquid Pkt) 30 ml NGT DAILY [facility] Last Admin: 01/08/20 09:37 Dose: 30 ml Documented by: Apixaban (Eliquis -) 5 mg PO BID [facility] Last Admin: 01/08/20 09:38 Dose: 5 mg Documented by: Ascorbic Acid (Vitamin C -) 1,000 mg PO DAILY [facility] Last Admin: 01/08/20 09:38 Dose: 1,000 mg Documented by: Chlorhexidine Gluconate (Peridex -) 15 ml MM BID [facility] Last Admin: 01/08/20 09:37 Dose: 15 ml Documented by: Propofol (Diprivan -) 1,000,000 mcg in 100 mls @ 3.266 mls/hr IVPB TITR [facility]; Protocol Last Admin: 01/08/20 09:39 Dose: 15 mcg/kg/min, 9.798 mls/hr Documented by: Midazolam HCl (Midazolam 100mg/100ml-0.9%Nacl) 100 mg in 100 mls @ 1 mls/hr IVPB TITR [facility]; Protocol Last Admin: 01/08/20 09:39 Dose: Not Given Documented by: Metoprolol Tartrate (Lopressor -) 25 mg PO BID [facility] Last Admin: 01/08/20 09:38 Dose: 25 mg Documented by: Multivitamins/Minerals/Vitamin C (Tab-A-Vit -) 1 tab PO DAILY [facility] Last Admin: 01/08/20 09:38 Dose: 1 tab Documented by: Pantoprazole Sodium (Protonix Iv) 40 mg IVPUSH DAILY [facility] Last Admin: 01/08/20 09:38 Dose: 40 mg Documented by: ASSESSMENT/PLAN: 64 year old male with a past medical history of HTN, HLD, JUANA (not using CPAP), COPD, GERD, systolic congestive heart failure, paroxysmal atrial fibrillation (on Eliquis, s/p cardioversion 11/2016) who is admitted for intubation s/p hypoxic respiratory failure, with concurrent CHF exacerbation. #Neuro - sedation vacation today - sedation vacation tomorrow and possible attempt for extubation #Cardio - hypoxic respiratory failure 2/2 to CHF exacerbation, now resolved - clinically diuresied, off pressors - lopressor 25 mg bid - eliquis 5 mg bid #Pulm -hypoxic respiratory failure 2/2 to CHF exacerbation and PNA, now resolved - on minimal vent settings, rate 18, TV 450, O2:50%, PEEP 8 - possible extubation tomorrow, f/u morning CXR - evaluate early and hold sedation #GI - protonix for ppx #Renal - monitor hypokalemia - repleted today - f/u repeat tomorrow #ID -cellulitis and PNA resolved - bcx and ucx negative - off abx DVT ppx: eliquis Dispo: try to wean early and potential extubation tomorrow, if not possible will need a trach Visit type - Emergency Visit Emergency Visit: No - New Patient This patient is new to me today: No - Critical Care Critical Care patient: No ATTENDING PHYSICIAN STATEMENT I saw and evaluated the patient. I reviewed the resident's note and discussed the case with the resident. I agree with the resident's findings and plan as documented. SUBJECTIVE: OBJECTIVE: ASSESSMENT AND PLAN:
--- NOTE | 2020-01-08 18:53 | PN ---
Progress Note, Physician History of Present Illness: Pt intubated/sedated. Afebrile now in past 48hrs. Routine cultures neg. - Current Medication List Current Medications: Active Medications Acetaminophen (Ofirmev Injection -) 1,000 mg IVPB Q6H PRN PRN Reason: FEVER Last Admin: 01/06/20 17:42 Dose: 1,000 mg Documented by: Amino Acids (Prosource No Carb Liquid Pkt) 30 ml NGT DAILY [facility] Last Admin: 01/08/20 09:37 Dose: 30 ml Documented by: Apixaban (Eliquis -) 5 mg PO BID [facility] Last Admin: 01/08/20 09:38 Dose: 5 mg Documented by: Ascorbic Acid (Vitamin C -) 1,000 mg PO DAILY [facility] Last Admin: 01/08/20 09:38 Dose: 1,000 mg Documented by: Chlorhexidine Gluconate (Peridex -) 15 ml MM BID [facility] Last Admin: 01/08/20 09:37 Dose: 15 ml Documented by: Propofol (Diprivan -) 1,000,000 mcg in 100 mls @ 3.266 mls/hr IVPB TITR [facility]; Protocol Last Admin: 01/08/20 09:39 Dose: 15 mcg/kg/min, 9.798 mls/hr Documented by: Midazolam HCl (Midazolam 100mg/100ml-0.9%Nacl) 100 mg in 100 mls @ 1 mls/hr IVPB TITR [facility]; Protocol Last Admin: 01/08/20 09:39 Dose: Not Given Documented by: Metoprolol Tartrate (Lopressor -) 25 mg PO BID [facility] Last Admin: 01/08/20 09:38 Dose: 25 mg Documented by: Multivitamins/Minerals/Vitamin C (Tab-A-Vit -) 1 tab PO DAILY [facility] Last Admin: 01/08/20 09:38 Dose: 1 tab Documented by: Pantoprazole Sodium (Protonix Iv) 40 mg IVPUSH DAILY [facility] Last Admin: 01/08/20 09:38 Dose: 40 mg Documented by: - Objective Vital Signs: Vital Signs Temperature 98.8 F 01/08/20 18:00 Pulse Rate 115 H 01/08/20 18:00 Respiratory Rate 18 01/08/20 18:00 Blood Pressure 132/87 01/08/20 18:00 O2 Sat by Pulse Oximetry (%) 95 01/08/20 18:23 Constitutional: Yes: No Distress Cardiovascular: Yes: Tachycardia Respiratory: Yes: Mechanically Ventilated Gastrointestinal: Yes: Normal Bowel Sounds, Soft Genitourinary: Yes: Hilario Present Labs: CBC, BMP 01/08/20 05:52 01/08/20 05:52 INR, PTT INR 1.34 (0.83-1.09) H 12/16/19 18:40 Laboratory Last Values WBC 8.3 K/mm3 (4.0-10.0) 01/08/20 05:52 Corrected WBC (auto) 8.60 K/mm3 12/19/19 06:00 RBC 5.71 M/mm3 (4.00-5.60) H 01/08/20 05:52 Hgb 13.1 GM/dL (11.7-16.9) 01/08/20 05:52 Hct 46.6 % (35.4-49) 01/08/20 05:52 MCV 81.6 fl (80-96) 01/08/20 05:52 MCH 23.0 pg (25.7-33.7) L 01/08/20 05:52 MCHC 28.2 g/dl (32.0-35.9) L 01/08/20 05:52 RDW 23.3 % (11.9-15.9) H 01/08/20 05:52 Plt Count 92 K/MM3 (134-434) L D 01/08/20 05:52 MPV 10.4 fl (7.5-11.1) 01/08/20 05:52 Absolute Neuts (auto) 6.2 K/mm3 (1.5-8.0) 01/08/20 05:52 Neutrophils % 75.0 % (42.8-82.8) 01/08/20 05:52 Lymphocytes % 13.3 % (8-40) 01/08/20 05:52 Monocytes % 7.8 % (3.8-10.2) 01/08/20 05:52 Eosinophils % 3.1 % (0-4.5) D 01/08/20 05:52 Basophils % 0.8 % (0-2.0) 01/08/20 05:52 Nucleated RBC % 0 % (0-0) 01/08/20 05:52 Manual Slide Review 12/28/19 06:00 Hypochromia 0 01/06/20 05:50 Platelet Estimate Decreased 01/07/20 06:05 Platelet Comment Present 01/07/20 06:05 Polychromasia 0 01/06/20 05:50 Poikilocytosis 0 01/06/20 05:50 Anisocytosis 1+ 01/06/20 05:50 Microcytosis 0 01/06/20 05:50 Macrocytosis 1+ 01/06/20 05:50 Spherocytes 1+ 01/02/20 05:00 Target Cells 1+ 12/16/19 18:40 Tear Drop Cells 1+ 01/02/20 05:00 Ovalocytes 1+ 01/02/20 05:00 PT with INR 15.90 SEC (9.7-13.0) H 12/16/19 18:40 INR 1.34 (0.83-1.09) H 12/16/19 18:40 Anticoagulation Therapy No Result Required. 01/05/20 06:00 Puncture Site Right radial 01/05/20 06:00 Patient Temperature No Result Required. 01/05/20 06:00 ABG pH 7.439 (7.350-7.450) 01/05/20 06:00 ABG pCO2 52.50 mmHg (35-45) H 01/05/20 06:00 ABG pCO2 at Pt Temp 54.6 mmHg (35-45) H 12/20/19 06:00 ABG pO2 101.9 mmHg (80-100) H 01/05/20 06:00 ABG pO2 at Pt Temp 88.3 mmHg (80-100) 12/20/19 06:00 ABG HCO3 34.8 mmol/L (22-27) H 01/05/20 06:00 ABG O2 Sat (Measured) 97.7 mmHg (95-98) 01/05/20 06:00 ABG O2 Content No Result Required. 01/05/20 06:00 ABG Base Excess 8.8 mmol/L (-2-2) H 01/05/20 06:00 Ye Test Positive 01/05/20 06:00 VBG pH 7.480 (7.310-7.410) H 12/22/19 11:45 POC VBG pCO2 50.5 mmHg (38-52) 12/22/19 11:45 POC VBG pO2 52.0 mmHg (28-48) H 12/22/19 11:45 VBG HCO3 36.9 mmol/L (23-29) H 12/22/19 11:45 VBG O2 Sat (Francis) 88.7 % (70-80) H 12/22/19 11:45 VBG Base Excess 11.1 mmol/L (-2-2) H 12/22/19 11:45 Patient On Oxygen Yes 01/05/20 06:00 O2 Delivery Device Vent 01/05/20 06:00 Oxygen Flow Rate 60% 01/05/20 06:00 Vent Mode A/c 01/05/20 06:00 Vent Rate 18 01/05/20 06:00 Mechanical Rate No Result Required. 01/05/20 06:00 PEEP 10.0 cmH2O 01/05/20 06:00 Pressure Support Vent 450 01/05/20 06:00 Sodium 146 mmol/L (136-145) H 01/08/20 05:52 Potassium 3.2 mmol/L (3.5-5.1) L 01/08/20 05:52 Chloride 103 mmol/L (98-107) 01/08/20 05:52 Carbon Dioxide 37 mmol/L (21-32) H 01/08/20 05:52 Anion Gap 6 MMOL/L (8-16) L 01/08/20 05:52 BUN 32.8 mg/dL (7-18) H 01/08/20 05:52 Creatinine 0.4 mg/dL (0.55-1.3) L 01/08/20 05:52 Est GFR (CKD-EPI)AfAm 143.45 01/08/20 05:52 Est GFR (CKD-EPI)NonAf 123.77 01/08/20 05:52 POC Glucometer 162 UNITS (80-120) 01/06/20 11:36 Random Glucose 155 mg/dL (74-106) H 01/08/20 05:52 Calcium 8.7 mg/dL (8.5-10.1) 01/08/20 05:52 Phosphorus 3.4 mg/dL (2.5-4.9) 01/08/20 05:52 Magnesium 2.1 mg/dL (1.8-2.4) 01/08/20 05:52 Total Bilirubin 1.8 mg/dL (0.2-1) H 01/08/20 05:52 AST 32 U/L (15-37) 01/08/20 05:52 ALT 73 U/L (13-61) H 01/08/20 05:52 Alkaline Phosphatase 90 U/L (45-117) 01/08/20 05:52 Creatine Kinase 50 U/L (26-308) 12/20/19 07:30 Troponin I 0.08 ng/ml (0.00-0.05) H 12/20/19 12:15 B-Natriuretic Peptide 338.6 pg/ml (5-125) H 01/01/20 05:25 Total Protein 5.1 g/dl (6.4-8.2) L 01/08/20 05:52 Albumin 2.0 g/dl (3.4-5.0) L 01/08/20 05:52 Triglycerides 219 mg/dL (0-150) H 01/05/20 05:00 Random Vancomycin 16.2 ug/ml (5-26) 12/29/19 06:00 Vancomycin Pre-Dose 22.4 ug/ml (5-10) H 12/26/19 13:28 COVID-19 (RAJENDRA) Not detected (Not Detected) 12/16/19 21:25 Microbiology 01/07/20 12:00 Sputum - Endotrachea Suction/Ventilator Gram Stain - Final 01/07/20 00:05 Urine - Urine Hilario Urine Culture - Final NO GROWTH OBTAINED 01/06/20 21:40 Blood - Peripheral Venous Blood Culture - Preliminary NO GROWTH OBTAINED AFTER 24 HOURS, INCUBATION TO CONTINUE FOR 4 DAYS. 01/06/20 21:30 Blood - Peripheral Venous Blood Culture - Preliminary NO GROWTH OBTAINED AFTER 24 HOURS, INCUBATION TO CONTINUE FOR 4 DAYS. 12/27/19 21:00 Blood - Peripheral Venous Blood Culture - Final NO GROWTH AFTER 5 DAYS INCUBATION 12/27/19 21:00 Blood - Peripheral Venous Blood Culture - Final NO GROWTH AFTER 5 DAYS INCUBATION 12/25/19 20:40 Blood - Peripheral Venous Blood Culture - Final NO GROWTH AFTER 5 DAYS INCUBATION 12/25/19 20:30 Blood - Peripheral Venous Blood Culture - Final NO GROWTH AFTER 5 DAYS INCUBATION 12/27/19 14:00 Urine - Urine Hilario Urine Culture - Final NO GROWTH OBTAINED 12/23/19 18:00 Sputum - Endotrachea Suction/Ventilator Gram Stain - Final 12/23/19 18:00 Sputum - Endotrachea Suction/Ventilator Sputum Culture - Final NORMAL RESPIRATORY [place] 12/23/19 17:51 Urine - Urine Hilario Urine Culture - Final NO GROWTH OBTAINED 12/16/19 20:13 Blood - Peripheral Venous Blood Culture - Final NO GROWTH AFTER 5 DAYS INCUBATION 12/16/19 19:50 Blood - Peripheral Venous Blood Culture - Final NO GROWTH AFTER 5 DAYS INCUBATION Problem List - Problems (1) Edema of scrotum Code(s): N50.89 - OTHER SPECIFIED DISORDERS OF THE MALE GENITAL ORGANS (2) Morbid obesity Code(s): E66.01 - MORBID (SEVERE) OBESITY DUE TO EXCESS CALORIES (3) Acute on chronic diastolic (congestive) heart failure Code(s): I50.33 - ACUTE ON CHRONIC DIASTOLIC (CONGESTIVE) HEART FAILURE (4) Acute respiratory failure requiring reintubation Code(s): J96.00 - ACUTE RESPIRATORY FAILURE, UNSP W HYPOXIA OR HYPERCAPNIA (5) Afib Code(s): I48.91 - UNSPECIFIED ATRIAL FIBRILLATION Qualifiers: Qualified Code(s): I48.0 - Paroxysmal atrial fibrillation Assessment/Plan Acute respiratory failure/MV Septic shock CHF PNA b/l LE Cellulitis b/l Hydrocele MONIE Paroxysmal AFIB COPD JUANA CAD HTN HLD -- fever has resolved, afebrile x 48h, wbc normal -- blood/urine cultures neg. sputum gram stain no organisms noted, culture results pending -- remains intubated/sedated -- s/p course of antibiotics -- continue monitor temp trend, wbc cc time: 36 min
[2020-01-09] MEDS: PROPOFOL 1,000,000 MCG/100 ML VIAL IVPB SCH (05:13)
[2020-01-09 07:19] LABS: HEMATOCRIT 45.1 % (35.4-49); HEMOGLOBIN 12.8 GM/dL (11.7-16.9); MCH 23.1 pg (25.7-33.7); MCHC 28.3 g/dl (32.0-35.9); MEAN CELL VOLUME 81.5 fl (80-96); MEAN PLT VOLUME 11.1 fl (7.5-11.1); PLATELET COUNT 103 K/MM3 (134-434); RBC 5.54 M/mm3 (4.00-5.60); RDW 23.3 % (11.9-15.9); WHITE BLOOD COUNT 10.3 K/mm3 (4.0-10.0)
[2020-01-09 07:49] LABS: ALBUMIN 1.9 g/dl (3.4-5.0); BILIRUBIN,TOTAL 1.7 mg/dL (0.2-1); BLOOD UREA NITROGEN 26.7 mg/dL (7-18); CALCIUM 8.4 mg/dL (8.5-10.1); CREATININE 0.4 mg/dL (0.55-1.3); PHOSPHOROUS 3.5 mg/dL (2.5-4.9); POTASSIUM 3.5 mmol/L (3.5-5.1); TOT PROT 4.8 g/dl (6.4-8.2)
--- NOTE | 2020-01-09 08:21 | PN ---
Progress Note, Physician History of Present Illness: 64 year old male with a past medical history of HTN, HLD, JUANA (not using CPAP), COPD, GERD, systolic congestive heart failure, paroxysmal atrial fibrillation (on Eliquis, s/p cardioversion 11/2016) who presented with 3 weeks of gradual onset anasarca, scrotal swelling and mild shortness of breath worse on exertion. CXR s/f diffused bilat opacities with c/f PNA +/-fluid overload, ?bilateral l ower extremity cellulitis and bilateral hydrocele, and respiratory acidosis is admitted for Acute hypercapneic respiratory failure and Acute CHF exacerbation, intubated for progressive hypercarbic respiratory failure, decreased mental status on BiPAP. 01/09/2020 Remains intubated, awake and arousable on vent with volume assist control with 40% FiO2, PEEP 5. No pressors. Attempted CPAP/PS but pt became tachypneic with accessory muscle use. - Current Medication List Current Medications: Active Medications Acetaminophen (Ofirmev Injection -) 1,000 mg IVPB Q6H PRN PRN Reason: FEVER Last Admin: 01/06/20 17:42 Dose: 1,000 mg Documented by: Amino Acids (Prosource No Carb Liquid Pkt) 30 ml NGT DAILY [facility] Last Admin: 01/08/20 09:37 Dose: 30 ml Documented by: Apixaban (Eliquis -) 5 mg PO BID [facility] Last Admin: 01/08/20 21:34 Dose: 5 mg Documented by: Ascorbic Acid (Vitamin C -) 1,000 mg PO DAILY [facility] Last Admin: 01/08/20 09:38 Dose: 1,000 mg Documented by: Chlorhexidine Gluconate (Peridex -) 15 ml MM BID [facility] Last Admin: 01/08/20 21:34 Dose: 15 ml Documented by: Propofol (Diprivan -) 1,000,000 mcg in 100 mls @ 3.266 mls/hr IVPB TITR [facility]; Protocol Last Admin: 01/09/20 05:13 Dose: 15 mcg/kg/min, 9.798 mls/hr Documented by: Midazolam HCl (Midazolam 100mg/100ml-0.9%Nacl) 100 mg in 100 mls @ 1 mls/hr IVPB TITR [facility]; Protocol Last Admin: 01/08/20 09:39 Dose: Not Given Documented by: Metoprolol Tartrate (Lopressor -) 25 mg PO BID [facility] Last Admin: 01/08/20 21:34 Dose: 25 mg Documented by: Multivitamins/Minerals/Vitamin C (Tab-A-Vit -) 1 tab PO DAILY [facility] Last Admin: 01/08/20 09:38 Dose: 1 tab Documented by: Pantoprazole Sodium (Protonix Iv) 40 mg IVPUSH DAILY [facility] Last Admin: 01/08/20 09:38 Dose: 40 mg Documented by: - Objective Vital Signs: Vital Signs Temperature 98.5 F 01/09/20 06:00 Pulse Rate 82 01/09/20 06:00 Respiratory Rate 18 01/09/20 06:00 Blood Pressure 97/71 01/09/20 06:00 O2 Sat by Pulse Oximetry (%) 91 L 01/09/20 04:05 Constitutional: Yes: Other (Sedated and intubated) Neck: Yes: Supple Cardiovascular: Yes: Regular Rate and Rhythm Respiratory: Yes: Diminished, Intubated, Rhonchi Gastrointestinal: Yes: Normal Bowel Sounds, Soft Genitourinary: Yes: Hilario Present Edema: No Integumentary: Yes: Venous Stasis Changes Labs: CBC, BMP 01/09/20 05:48 01/09/20 06:00 INR, PTT INR 1.34 (0.83-1.09) H 12/16/19 18:40 - ....Imaging Chest X-ray: Report Reviewed (Bilateral pleural and pulmonary changes) EKG: Report Reviewed (Tele: NSR) Problem List - Problems (1) Congestive heart failure (CHF) Code(s): I50.9 - HEART FAILURE, UNSPECIFIED Qualifiers: Heart failure type: diastolic Heart failure chronicity: acute on chronic Qualified Code(s): I50.33 - Acute on chronic diastolic (congestive) heart failure (2) Pneumonia Code(s): J18.9 - PNEUMONIA, UNSPECIFIED ORGANISM Qualifiers: Pneumonia type: due to unspecified organism Laterality: right Lung location: lower lobe of lung Qualified Code(s): J18.9 - Pneumonia, unspecified organism (3) Acute on chronic diastolic (congestive) heart failure Code(s): I50.33 - ACUTE ON CHRONIC DIASTOLIC (CONGESTIVE) HEART FAILURE (4) Acute respiratory failure with hypoxia and hypercarbia Code(s): J96.01 - ACUTE RESPIRATORY FAILURE WITH HYPOXIA; J96.02 - ACUTE RESPIRATORY FAILURE WITH HYPERCAPNIA (5) Atrial fibrillation Code(s): I48.91 - UNSPECIFIED ATRIAL FIBRILLATION Qualifiers: Atrial fibrillation type: paroxysmal Qualified Code(s): I48.0 - Paroxysmal atrial fibrillation (6) COPD (chronic obstructive pulmonary disease) Code(s): J44.9 - CHRONIC OBSTRUCTIVE PULMONARY DISEASE, UNSPECIFIED Qualifiers: COPD type: unspecified COPD Qualified Code(s): J44.9 - Chronic obstructive pulmonary disease, unspecified (7) Hypertension Code(s): I10 - ESSENTIAL (PRIMARY) HYPERTENSION Qualifiers: Hypertension type: essential hypertension Qualified Code(s): I10 - Essential (primary) hypertension (8) Pleural effusion Code(s): J90 - PLEURAL EFFUSION, NOT ELSEWHERE CLASSIFIED Assessment/Plan 10/26/2017 Normal LV size with mild LVH, normal LV fxn, normal RV size and fxn, mild LAE, mild MR, mild-mod TR, mild W[place], RVSP 43 mmHg 11/19/2016 Lexiscan Myoview: Apical ischemia, LVEF 45-52% 10/06/2016 Echocardiography revealed mild to moderate LV systolic dysfunction, moderate TR, RVSP of 30-40 mmH 1. Acute on chronic Hypoxic and Hypercapneic Respiratory Failure 2. Acute on chronic LV Diastolic Heart Failure with pleural effusion and pulm HTN 3. Pneumonia, ARDS, (septic shock) 4. Paroxysmal atrial fibrillation with periods of rapid ventricular response post DCCV, [id number] score of 2 5. Obstructive Sleep Apnea/Obesity Hypoventilation Syndrome 6. HTN/HCVD 7. Hypercholesterolemia 8. CAD, angina pectoris 9. Bilateral cellulitis with h/o abscess s/p debridement 10. Bilateral hydrocele PLAN: 1. Low tidal volume ventilation, titrate FiO2, PEEP to keep SpO2 >90%. Tracheostomy for prolonged intubation and failure to wean 2. DVT and GI prophylaxis and enteral feeds 3. Diuretics as needed with monitor renal function and electrolytes 4. Continue Lopressor 25 mg BID and Eliquis 5 mg BID, would hold 2 days prior to tracheostomy 5. Completed abx course per ID 6. Daily sedation vacations to assess mental status, spontaneous breathing trials as tolerated when mental status improved
[2020-01-09] MEDS ORDERED: PT OWN MED DRAWER 7, Y5N ONE (10:00)
[2020-01-09] MEDS: MULTIVITAMINS (DAILY MVI) TABLET (FP) PO SCH (10:31)
[2020-01-09] MEDS: ASCORBIC ACID 500 MG TABLET (FP) PO SCH (10:31)
[2020-01-09] MEDS: APIXABAN 5 MG TABLET PO SCH (10:31)
[2020-01-09] MEDS: CHLORHEXIDINE GLUCONATE 0.12% 15ML CUP MM SCH ×2 (10:31→21:21)
[2020-01-09] MEDS: METOPROLOL TARTRATE 25 MG TABLET (FP) PO SCH ×2 (10:31→21:21)
[2020-01-09] MEDS: PANTOPRAZOLE SODIUM 40 MG VIAL IVPUSH SCH (10:31)
[2020-01-09] MEDS: AMINO ACIDS/PROTEIN HYDROLYS 30 ML LIQUID.PKT NGT SCH (10:32)
[2020-01-09] MEDS: MIDAZOLAM IN 0.9 % SOD.CHLORID 100 MG/100 ML PLAST..BAG IVPB SCH ×2 (10:32→18:00)
[2020-01-09] MEDS ORDERED: FUROSEMIDE 40 MG/4 ML INJECTABLE VIAL IVPUSH ONE (11:14)
--- NOTE | 2020-01-09 11:34 | PN ---
Teaching Attending Note Name of Resident: Lily Hernandez ATTENDING PHYSICIAN STATEMENT I saw and evaluated the patient. I reviewed the resident's note and discussed the case with the resident. I agree with the resident's findings and plan as documented. SUBJECTIVE: Pt seen and examined in the ICU. Remains intubated, sedated. Vented on volume assist control with 40% FiO2, PEEP 5. No pressors. Attempted CPAP/PS but pt became tachypneic with accessory muscle use. OBJECTIVE: Vital Signs Period Temp Pulse Resp BP Sys/Clements Pulse Ox Last 24 Hr 98.2 F-98.8 F 62-115 16-35 89-137/55-90 91-97 Intake & Output 01/06/20 01/07/20 01/08/20 01/09/20 23:59 23:59 23:59 23:59 Intake Total 3525.6 2825.6 3055.2 826 Output Total 905 1600 1400 300 Balance 2620.6 1225.6 1655.2 526 Weight 104.326 kg 103.918 kg 106.821 kg 106.821 kg Gen: intubated, sedated Heart: RRR Lung: scattered rhonchi Abd: soft, nontender Ext: no edema CBC, BMP 01/09/20 05:48 01/09/20 06:00 Active Medications Acetaminophen (Ofirmev Injection -) 1,000 mg IVPB Q6H PRN PRN Reason: FEVER Last Admin: 01/06/20 17:42 Dose: 1,000 mg Documented by: Amino Acids (Prosource No Carb Liquid Pkt) 30 ml NGT DAILY [facility] Last Admin: 01/09/20 10:32 Dose: 30 ml Documented by: Apixaban (Eliquis -) 5 mg PO BID [facility] Last Admin: 01/09/20 10:31 Dose: 5 mg Documented by: Ascorbic Acid (Vitamin C -) 1,000 mg PO DAILY [facility] Last Admin: 01/09/20 10:31 Dose: 1,000 mg Documented by: Chlorhexidine Gluconate (Peridex -) 15 ml MM BID [facility] Last Admin: 01/09/20 10:31 Dose: 15 ml Documented by: Propofol (Diprivan -) 1,000,000 mcg in 100 mls @ 3.266 mls/hr IVPB TITR [facility]; Protocol Last Titration: 01/09/20 08:00 Dose: 0 mcg/kg/min, 0 mls/hr Documented by: Midazolam HCl (Midazolam 100mg/100ml-0.9%Nacl) 100 mg in 100 mls @ 1 mls/hr IVPB TITR [facility]; Protocol Last Admin: 01/09/20 10:32 Dose: Not Given Documented by: Metoprolol Tartrate (Lopressor -) 25 mg PO BID [facility] Last Admin: 01/09/20 10:31 Dose: 25 mg Documented by: Multivitamins/Minerals/Vitamin C (Tab-A-Vit -) 1 tab PO DAILY [facility] Last Admin: 01/09/20 10:31 Dose: 1 tab Documented by: Pantoprazole Sodium (Protonix Iv) 40 mg IVPUSH DAILY [facility] Last Admin: 01/09/20 10:31 Dose: 40 mg Documented by: ASSESSMENT AND PLAN: Acute on Chronic Hypoxic and Hypercapneic Respiratory Failure Pneumonia ARDS Septic Shock Acute on Chronic Diastolic Heart Failure Pulmonary HTN Paroxysmal Atrial Fibrillation CAD Acute Kidney Injury Likely COPD JUANA/OHS HTN Hypercholesterolemia - completed antibiotics per ID - reculture if febrile - off pressors, maintain MAP >65 - off steroids - rate control - continue anticoagulation - low tidal volume ventilation - titrate FiO2, PEEP to keep SpO2 >90% - lasix today - monitor urine output, creatinine - daily sedation vacations to assess mental status - spontaneous breathing trials as tolerated when mental status improved - enteral feeds - DVT/GI prophylaxis - continue ICU monitoring - will need tracheostomy for prolonged intubation and failure to wean critical care time spent in reviewing chart, evaluating patient and formulating plan 35 min
[2020-01-09] MEDS ORDERED: FUROSEMIDE 40 MG/4 ML INJECTABLE VIAL ONE (12:02)
[2020-01-09] MEDS ORDERED: POTASSIUM CHLORIDE ORAL LIQUID 20 MEQ/15 ML NGT ONE (13:08)
--- NOTE | 2020-01-09 13:08 | PN ---
Progress Note, Physician History of Present Illness: Pt seen and examined at bedside. He remains in the ICU. He remains intubated. - Current Medication List Current Medications: Active Medications Acetaminophen (Ofirmev Injection -) 1,000 mg IVPB Q6H PRN PRN Reason: FEVER Last Admin: 01/06/20 17:42 Dose: 1,000 mg Documented by: Amino Acids (Prosource No Carb Liquid Pkt) 30 ml NGT DAILY [facility] Last Admin: 01/09/20 10:32 Dose: 30 ml Documented by: Ascorbic Acid (Vitamin C -) 1,000 mg PO DAILY [facility] Last Admin: 01/09/20 10:31 Dose: 1,000 mg Documented by: Chlorhexidine Gluconate (Peridex -) 15 ml MM BID [facility] Last Admin: 01/09/20 10:31 Dose: 15 ml Documented by: Propofol (Diprivan -) 1,000,000 mcg in 100 mls @ 3.266 mls/hr IVPB TITR [facility]; Protocol Last Titration: 01/09/20 08:00 Dose: 0 mcg/kg/min, 0 mls/hr Documented by: Midazolam HCl (Midazolam 100mg/100ml-0.9%Nacl) 100 mg in 100 mls @ 1 mls/hr IVPB TITR [facility]; Protocol Last Admin: 01/09/20 10:32 Dose: Not Given Documented by: Metoprolol Tartrate (Lopressor -) 25 mg PO BID [facility] Last Admin: 01/09/20 10:31 Dose: 25 mg Documented by: Multivitamins/Minerals/Vitamin C (Tab-A-Vit -) 1 tab PO DAILY [facility] Last Admin: 01/09/20 10:31 Dose: 1 tab Documented by: Pantoprazole Sodium (Protonix Iv) 40 mg IVPUSH DAILY [facility] Last Admin: 01/09/20 10:31 Dose: 40 mg Documented by: - Objective Vital Signs: Vital Signs Temperature 98.5 F 01/09/20 06:00 Pulse Rate 81 01/09/20 08:29 Respiratory Rate 31 H 01/09/20 12:00 Blood Pressure 111/78 01/09/20 08:00 O2 Sat by Pulse Oximetry (%) 95 01/09/20 12:00 Constitutional: Yes: Calm HENT: Yes: Atraumatic Neck: Yes: Supple Cardiovascular: Yes: S1, S2 Respiratory: Yes: Mechanically Ventilated Gastrointestinal: Yes: Soft Genitourinary: Yes: Hilario Present Musculoskeletal: Yes: Muscle Weakness Edema: No Integumentary: Yes: Venous Stasis Changes Neurological: Yes: Lethargy Labs: CBC, BMP 01/09/20 05:48 01/09/20 06:00 INR, PTT INR 1.34 (0.83-1.09) H 12/16/19 18:40 - ....Imaging Chest X-ray: Report Reviewed Problem List - Problems (1) Anasarca Code(s): R60.1 - GENERALIZED EDEMA (2) Congestive heart failure (CHF) Code(s): I50.9 - HEART FAILURE, UNSPECIFIED Qualifiers: Heart failure type: diastolic Heart failure chronicity: acute on chronic Qualified Code(s): I50.33 - Acute on chronic diastolic (congestive) heart failure (3) Acute kidney injury Code(s): N17.9 - ACUTE KIDNEY FAILURE, UNSPECIFIED Assessment/Plan Current Medications Generic Name Dose Route Start Last Admin Trade Name Freq PRN Reason Stop Dose Admin Acetaminophen 1,000 mg 01/06/20 17:18 01/06/20 17:42 Ofirmev Injection - IVPB 1,000 mg Q6H PRN Administration FEVER Amino Acids 30 ml 01/07/20 10:00 01/09/20 10:32 Prosource No Carb Liquid Pkt NGT 30 ml DAILY [facility] Administration Ascorbic Acid 1,000 mg 12/17/19 10:00 01/09/20 10:31 Vitamin C - PO 1,000 mg DAILY [facility] Administration Chlorhexidine Gluconate 15 ml 12/22/19 12:30 01/09/20 10:31 Peridex - MM 15 ml BID [facility] Administration Propofol 1,000,000 mcg in 100 mls @ 3.266 mls/hr 12/17/19 04:30 01/09/20 08:00 Diprivan - IVPB 0 mcg/kg/min TITR [facility] 0 mls/hr Titration Protocol 5 MCG/KG/MIN Midazolam HCl 100 mg in 100 mls @ 1 mls/hr 12/22/19 08:00 01/09/20 10:32 Midazolam 100mg/100ml-0.9%Nacl IVPB Not Given TITR [facility] Protocol 1 MG/HR Metoprolol Tartrate 25 mg 12/19/19 12:00 01/09/20 10:31 Lopressor - PO 25 mg BID [facility] Administration Multivitamins/Minerals/Vitamin C 1 tab 12/17/19 10:00 01/09/20 10:31 Tab-A-Vit - PO 1 tab DAILY [facility] Administration Pantoprazole Sodium 40 mg 12/19/19 10:00 01/09/20 10:31 Protonix Iv IVPUSH 40 mg DAILY [facility] Administration Impression 1. MONIE 2. CHF acute 3. acute resp failure requiring intubation 4. atrial fibrillation 5. hx of htn 6. obesity 7. chronic smoker 8. hypokalemia Plan- sodium improved - pt will get a dose of lasix today - cont free water with feeds - replace potassium - cont tube feeds - pressors to map 65 - discussed with ICU team - am cxr - monitor sodium levels
--- NOTE | 2020-01-09 13:09 | PN ---
Progress Note, Physician History of Present Illness: continues to be intubated plan for trach now - Current Medication List Current Medications: Active Medications Acetaminophen (Ofirmev Injection -) 1,000 mg IVPB Q6H PRN PRN Reason: FEVER Last Admin: 01/06/20 17:42 Dose: 1,000 mg Documented by: Amino Acids (Prosource No Carb Liquid Pkt) 30 ml NGT DAILY [facility] Last Admin: 01/09/20 10:32 Dose: 30 ml Documented by: Ascorbic Acid (Vitamin C -) 1,000 mg PO DAILY [facility] Last Admin: 01/09/20 10:31 Dose: 1,000 mg Documented by: Chlorhexidine Gluconate (Peridex -) 15 ml MM BID [facility] Last Admin: 01/09/20 10:31 Dose: 15 ml Documented by: Propofol (Diprivan -) 1,000,000 mcg in 100 mls @ 3.266 mls/hr IVPB TITR [facility]; Protocol Last Titration: 01/09/20 08:00 Dose: 0 mcg/kg/min, 0 mls/hr Documented by: Midazolam HCl (Midazolam 100mg/100ml-0.9%Nacl) 100 mg in 100 mls @ 1 mls/hr IVPB TITR [facility]; Protocol Last Admin: 01/09/20 10:32 Dose: Not Given Documented by: Metoprolol Tartrate (Lopressor -) 25 mg PO BID [facility] Last Admin: 01/09/20 10:31 Dose: 25 mg Documented by: Multivitamins/Minerals/Vitamin C (Tab-A-Vit -) 1 tab PO DAILY [facility] Last Admin: 01/09/20 10:31 Dose: 1 tab Documented by: Pantoprazole Sodium (Protonix Iv) 40 mg IVPUSH DAILY [facility] Last Admin: 01/09/20 10:31 Dose: 40 mg Documented by: - Objective Vital Signs: Vital Signs Temperature 98.5 F 01/09/20 06:00 Pulse Rate 81 01/09/20 08:29 Respiratory Rate 31 H 01/09/20 12:00 Blood Pressure 111/78 01/09/20 08:00 O2 Sat by Pulse Oximetry (%) 95 01/09/20 12:00 Constitutional: Yes: No Distress Cardiovascular: Yes: S1, S2 Respiratory: Yes: Intubated, Mechanically Ventilated Gastrointestinal: Yes: Normal Bowel Sounds, Soft Musculoskeletal: Yes: WNL Extremities: Yes: WNL Neurological: Yes: Other Psychiatric: Yes: Other Labs: CBC, BMP 01/09/20 05:48 01/09/20 06:00 INR, PTT INR 1.34 (0.83-1.09) H 12/16/19 18:40 - ....Imaging Chest X-ray: Report Reviewed, Image Reviewed Assessment/Plan 64 year old male with a past medical history of HTN, HLD, JUANA (not using CPAP), COPD, GERD, systolic congestive heart failure, paroxysmal atrial fibrillation (on Eliquis, s/p cardioversion 11/2016) who presented with 3 weeks of gradual onset anasarca, scrotal swelling and mild shortness of breath worse on exertion. He as found to have a PNA, on clinical exam signs of fluid overload, ?bilateral lower extremity cellulitis and bilateral hydrocele. 1. Acute Respiratory Failure 2. Fluid Overload/ 3.Bilateral Lower Extremity Cellulitis 4. Hydrocele 5. Hypertension 6. Atrial Fibrillation 7. Elevated Troponin 8. Rule Out COVID 9 pna plan cx reports noted monitor fevers icu mgmt vent mgmt res as per icu s/p course of abx plan for trach cc 38 min
--- NOTE | 2020-01-09 14:04 | PN ---
Physical Exam: SUBJECTIVE: Patient seen and examined, remains intubated and sedated. Urine output 1400cc and large BM overnight. Was afebrile. Underwent sedation vacation and was changed from AC to SIMV - responded to commands but due to extensive accessory muscle breathing resumed sedation and returned to AC ventilation. OBJECTIVE: Vital Signs Period Temp Pulse Resp BP Sys/Clements Pulse Ox Last 24 Hr 98.2 F-98.8 F 62-115 16-35 89-136/55-87 91-97 GENERAL: sedated and intubated HEAD: Normal with no signs of trauma. Eyes were slighly open and blinking, PERRL. LUNGS: Breath sounds from vent equal, clear to auscultation bilaterally, inspiratory rhonchi noted on L side. HEART: distant heart sounds. Irregular (PVCs), S1, S2 without murmur, rub or gallop. ABDOMEN: distended, mildly rigid, active BS EXTREMITIES: no edema NEUROLOGICAL: mildly responsive on sedation vacation SKIN: Warm, dark discoloration of shins bilaterally Laboratory Results - last 24 hr 01/08/20 01/09/20 01/09/20 21:06 05:48 06:00 WBC 10.3 H RBC 5.54 Hgb 12.8 Hct 45.1 MCV 81.5 MCH 23.1 L MCHC 28.3 L RDW 23.3 H Plt Count 103 L MPV 11.1 Platelet Comment Present Sodium 145 Potassium 3.5 Chloride 102 Carbon Dioxide 36 H Anion Gap 7 L BUN 26.7 H Creatinine 0.4 L Est GFR (CKD-EPI)AfAm 143.45 Est GFR (CKD-EPI)NonAf 123.77 POC Glucometer 138 Random Glucose 141 H Calcium 8.4 L Phosphorus 3.5 Magnesium 2.0 Total Bilirubin 1.7 H AST 24 ALT 57 Alkaline Phosphatase 93 Total Protein 4.8 L Albumin 1.9 L Active Medications Generic Name Dose Route Start Last Admin Trade Name Freq PRN Reason Stop Dose Admin Acetaminophen 1,000 mg 01/06/20 17:18 01/06/20 17:42 Ofirmev Injection - IVPB 1,000 mg Q6H PRN Administration FEVER Amino Acids 30 ml 01/07/20 10:00 01/09/20 10:32 Prosource No Carb Liquid Pkt NGT 30 ml DAILY [facility] Administration Ascorbic Acid 1,000 mg 12/17/19 10:00 01/09/20 10:31 Vitamin C - PO 1,000 mg DAILY [facility] Administration Chlorhexidine Gluconate 15 ml 12/22/19 12:30 01/09/20 10:31 Peridex - MM 15 ml BID [facility] Administration Propofol 1,000,000 mcg in 100 mls @ 3.266 mls/hr 12/17/19 04:30 01/09/20 08:00 Diprivan - IVPB 0 mcg/kg/min TITR [facility] 0 mls/hr Titration Protocol 5 MCG/KG/MIN Midazolam HCl 100 mg in 100 mls @ 1 mls/hr 12/22/19 08:00 01/09/20 10:32 Midazolam 100mg/100ml-0.9%Nacl IVPB Not Given TITR [facility] Protocol 1 MG/HR Metoprolol Tartrate 25 mg 12/19/19 12:00 01/09/20 10:31 Lopressor - PO 25 mg BID [facility] Administration Multivitamins/Minerals/Vitamin C 1 tab 12/17/19 10:00 01/09/20 10:31 Tab-A-Vit - PO 1 tab DAILY [facility] Administration Pantoprazole Sodium 40 mg 12/19/19 10:00 01/09/20 10:31 Protonix Iv IVPUSH 40 mg DAILY [facility] Administration vent: 14/450/40/5 drips: 15 propofol, 5 midazolam ASSESSMENT/PLAN: 64yo M with PMHx of HTN, HLD, JUANA (not using CPAP), COPD, GERD, systolic CHF, afib on eliquis (s/p cardioversion 11/2016) who presented with R lobe pneumonia, fluid overload, bilateral LE cellulitis, bilateral hydrocele, and respiratory acidosis. Admitted for acute hypercapneic respiratory failure and acute CHF exacerbation. #Neuro - sedated, intubated, on propofol and midazolam - during sedation vacation responded to commands #Cardio fluid overload secondary to CHF exacerbation - Continue metoprolol 25 mg BID - d/c apixaban in anticipation for tracheostomy tomorrow - holding lisinopril until MONIE improves - continue metoprolol #Pulm acute hypercapneic respiratory failure due to CAP vs COPD exacerbation - tracheostomy tomorrow - waiting to obtain consent from mother, spoke to her on the phone, she will be coming in. - discontinued hydrocortisone #ID bilateral LE cellulitis - resolved - sputum culture growing MRSA and strep - spoke to Dr. Clifton from ID, he will be placing necessary orders - blood cx and UA no growth to date #Renal - hypernatremia resolved - will continue monitoring #Heme - Hg stable #PPX - DVT: holding apixaban in anticipation for tracheostomy tomorrow - GI: pantoprazole #FEN - tube feeds per dietary #LTD - ET 7.5 - Hilario #Dispo will continue monitoring in the ICU mother's cell: [phone] Home: Brother Ady: [phone] Visit type - Emergency Visit Emergency Visit: Yes ED Registration Date: 12/16/19 Care time: The patient presented to the Emergency Department on the above date and was hospitalized for further evaluation of their emergent condition. - New Patient This patient is new to me today: No - Critical Care Critical Care patient: Yes Total Critical Care Time (in minutes): 36 Critical Care Statement: The care of this patient involved high complexity decision making to prevent further life threatening deterioration of the patient's condition and/or to evaluate & treat vital organ system(s) failure or risk of failure. ATTENDING PHYSICIAN STATEMENT I saw and evaluated the patient. I reviewed the resident's note and discussed the case with the resident. I agree with the resident's findings and plan as documented. SUBJECTIVE: OBJECTIVE: ASSESSMENT AND PLAN:
[2020-01-09] MEDS: VANCOMYCIN HCL 1,500 MG in DEXTROSE 5%-WATER - 500 ML IVPB SCH (15:44)
[2020-01-10] MEDS: PROPOFOL 1,000,000 MCG/100 ML VIAL IVPB SCH ×2 (05:18→09:07)
--- NOTE | 2020-01-10 06:45 | PN ---
Progress Note (short form) - Note Progress Note: Chief Complaint: Events noted, notes reviewed, remains intubated and sedated, for tracheostomy later today History of Present Illness: Seen and examined in the ICU. Events noted, notes reviewed, remains intubated and sedated, for tracheostomy later today Medications: Current Medications Generic Name Dose Route Start Last Admin Trade Name Freq PRN Reason Stop Dose Admin Acetaminophen 1,000 mg 01/06/20 17:18 01/06/20 17:42 Ofirmev Injection - IVPB 1,000 mg Q6H PRN Administration FEVER Amino Acids 30 ml 01/07/20 10:00 01/09/20 10:32 Prosource No Carb Liquid Pkt NGT 30 ml DAILY [facility] Administration Ascorbic Acid 1,000 mg 12/17/19 10:00 01/09/20 10:31 Vitamin C - PO 1,000 mg DAILY [facility] Administration Chlorhexidine Gluconate 15 ml 12/22/19 12:30 01/09/20 21:21 Peridex - MM 15 ml BID [facility] Administration Propofol 1,000,000 mcg in 100 mls @ 3.266 mls/hr 12/17/19 04:30 01/10/20 05:18 Diprivan - IVPB 15 mcg/kg/min TITR [facility] 9.798 mls/hr Administration Protocol 5 MCG/KG/MIN Midazolam HCl 100 mg in 100 mls @ 1 mls/hr 12/22/19 08:00 01/09/20 18:00 Midazolam 100mg/100ml-0.9%Nacl IVPB 5 mg/hr TITR [facility] 5 mls/hr Administration Protocol 1 MG/HR Vancomycin HCl 1,500 mg/ 500 mls @ 250 mls/hr 01/09/20 15:00 01/09/20 15:44 Dextrose IVPB 250 mls/hr Q24H [facility] Administration Protocol Metoprolol Tartrate 25 mg 12/19/19 12:00 01/09/20 21:21 Lopressor - PO 25 mg BID [facility] Administration Multivitamins/Minerals/Vitamin C 1 tab 12/17/19 10:00 01/09/20 10:31 Tab-A-Vit - PO 1 tab DAILY [facility] Administration Pantoprazole Sodium 40 mg 12/19/19 10:00 01/09/20 10:31 Protonix Iv IVPUSH 40 mg DAILY [facility] Administration Review of Systems Unable to obtain/intubated and sedated Vital Signs: Last Vital Signs Temp Pulse Resp BP Pulse Ox 98.3 F 81 14 102/69 94 L 01/10/20 06:00 01/10/20 06:00 01/10/20 06:21 01/10/20 06:00 01/10/20 06:21 Intake & Output 01/07/20 01/08/20 01/09/20 01/10/20 23:59 23:59 23:59 23:59 Intake Total 2825.6 3055.2 2838.6 98 Output Total 1600 1400 2300 500 Balance 1225.6 1655.2 538.6 -402 Weight 229 lb 1.6 oz 235 lb 8 oz 235 lb 8 oz 235 lb Neck: Supple Negative JVD Respiratory: Diminished Breath Sounds at the Bases Cardiovascular: S1 S2 Regular Rate Rhythm Gastrointestinal: Soft Benign Normal Bowel Sounds Ext: Trace Edema Bilaterally Labs: CBC, BMP 01/10/20 10:20 01/10/20 10:20 Hepatic Panel Total Bilirubin 1.8 mg/dL (0.2-1) H 01/10/20 10:20 AST 24 U/L (15-37) 01/10/20 10:20 ALT 43 U/L (13-61) 01/10/20 10:20 Alkaline Phosphatase 91 U/L (45-117) 01/10/20 10:20 Albumin 1.9 g/dl (3.4-5.0) L 01/10/20 10:20 CBC, BMP 01/09/20 05:48 01/09/20 06:00 Hepatic Panel Total Bilirubin 1.7 mg/dL (0.2-1) H 01/09/20 06:00 AST 24 U/L (15-37) 01/09/20 06:00 ALT 57 U/L (13-61) 01/09/20 06:00 Alkaline Phosphatase 93 U/L (45-117) 01/09/20 06:00 Albumin 1.9 g/dl (3.4-5.0) L 01/09/20 06:00 INR, PTT INR 1.34 (0.83-1.09) H 12/16/19 18:40 Assessment/Plan ASSESSMENT: 1. Acute on chronic hypoxic/hypercapnic respiratory failure for tracheostomy later today (Pneumonia complicated by septic shock and adult respiratory distre ss/ARDS) 2. Acute on chronic class II [place] [employer] classification left ventricular failure related to diastolic left ventricular dysfunction (Pulmonary hypertension), clinically resolving 3. Coronary artery disease angina pectoris 4. Paroxysmal atrial fibrillation currently in sinus rhythm [id number] score of 3 currently on no anticoagulation therapy/held for the above planned procedure tracheostomy 5. Hypertensive cardiovascular disease 6. Hypercholesterolemia 7. History of obstructive sleep apnea 8. Prerenal azotemia 9. History of cellulitis/abscess formation post wound debridement PLAN: 1. Continue Lopressor therapy 2. Recommend the addition of AMADEO inhibitor or angiotensin receptor joseph therapy unless it is absolutely contraindicated, hemodynamics permitting 3. Recommend Resumption of anticoagulation therapy post tracheostomy once hemostasis is achieved 4. Antibiotics as per the primary team 5. Tracheostomy planned for later today Bran Carlin MD
[2020-01-10] MEDS: MIDAZOLAM IN 0.9 % SOD.CHLORID 100 MG/100 ML PLAST..BAG IVPB SCH (09:06)
[2020-01-10] MEDS: AMINO ACIDS/PROTEIN HYDROLYS 30 ML LIQUID.PKT NGT SCH (10:19)
[2020-01-10] MEDS: MULTIVITAMINS (DAILY MVI) TABLET (FP) PO SCH (10:20)
[2020-01-10] MEDS: METOPROLOL TARTRATE 25 MG TABLET (FP) PO SCH (10:20)
[2020-01-10] MEDS: PANTOPRAZOLE SODIUM 40 MG VIAL IVPUSH SCH (10:20)
[2020-01-10] MEDS: CHLORHEXIDINE GLUCONATE 0.12% 15ML CUP MM SCH ×2 (10:21→21:55)
[2020-01-10 11:08] LABS: ALBUMIN 1.9 g/dl (3.4-5.0); BILIRUBIN,TOTAL 1.8 mg/dL (0.2-1); BLOOD UREA NITROGEN 25.7 mg/dL (7-18); CALCIUM 8.5 mg/dL (8.5-10.1); CREATININE 0.4 mg/dL (0.55-1.3); PHOSPHOROUS 3.6 mg/dL (2.5-4.9); POTASSIUM 3.5 mmol/L (3.5-5.1); TOT PROT 4.9 g/dl (6.4-8.2)
[2020-01-10] MEDS: ASCORBIC ACID 500 MG TABLET (FP) PO SCH (11:19)
[2020-01-10 11:27] LABS: BASO % 0.9 % (0-2.0); EOS % 4.3 % (0-4.5); HEMATOCRIT 44.8 % (35.4-49); LYMPH % 15.4 % (8-40); MCH 23.6 pg (25.7-33.7); MEAN CELL VOLUME 81.6 fl (80-96); MEAN PLT VOLUME 10.1 fl (7.5-11.1); NEUT % 72.4 % (42.8-82.8); PLATELET COUNT 78 K/MM3 (134-434); RBC 5.49 M/mm3 (4.00-5.60); WHITE BLOOD COUNT 10.2 K/mm3 (4.0-10.0)
--- NOTE | 2020-01-10 12:00 | PN ---
Teaching Attending Note Name of Resident: Lily Hernandez ATTENDING PHYSICIAN STATEMENT I saw and evaluated the patient. I reviewed the resident's note and discussed the case with the resident. I agree with the resident's findings and plan as documented. SUBJECTIVE: Pt seen and examined in the ICU. Remains intubated, sedated. Vented on volume assist control with 40% FiO2, PEEP 5. No pressors. Plan for tracheostomy today. OBJECTIVE: Vital Signs Period Temp Pulse Resp BP Sys/Clements Pulse Ox Last 24 Hr 98.1 F-99.4 F 72-87 14-31 88-124/59-85 94-95 Intake & Output 01/07/20 01/08/20 01/09/20 01/10/20 23:59 23:59 23:59 23:59 Intake Total 2825.6 3055.2 2838.6 98 Output Total 1600 1400 2300 500 Balance 1225.6 1655.2 538.6 -402 Weight 103.918 kg 106.821 kg 106.821 kg 106.594 kg Gen: intubated, sedated Heart: RRR Lung: scattered rhonchi Abd: soft, nontender Ext: no edema CBC, BMP 01/10/20 10:20 01/10/20 10:20 Active Medications Acetaminophen (Ofirmev Injection -) 1,000 mg IVPB Q6H PRN PRN Reason: FEVER Last Admin: 01/06/20 17:42 Dose: 1,000 mg Documented by: Amino Acids (Prosource No Carb Liquid Pkt) 30 ml NGT DAILY [facility] Last Admin: 01/10/20 10:19 Dose: 30 ml Documented by: Ascorbic Acid (Vitamin C -) 1,000 mg PO DAILY [facility] Last Admin: 01/10/20 11:19 Dose: 1,000 mg Documented by: Chlorhexidine Gluconate (Peridex -) 15 ml MM BID [facility] Last Admin: 01/10/20 10:21 Dose: 15 ml Documented by: Propofol (Diprivan -) 1,000,000 mcg in 100 mls @ 3.266 mls/hr IVPB TITR [facility]; Protocol Last Admin: 01/10/20 09:07 Dose: 15 mcg/kg/min, 9.798 mls/hr Documented by: Midazolam HCl (Midazolam 100mg/100ml-0.9%Nacl) 100 mg in 100 mls @ 1 mls/hr IVPB TITR [facility]; Protocol Last Admin: 01/10/20 09:06 Dose: 5 mg/hr, 5 mls/hr Documented by: Vancomycin HCl 1,500 mg/ (Dextrose) 500 mls @ 250 mls/hr IVPB Q24H [facility]; Protocol Last Admin: 01/09/20 15:44 Dose: 250 mls/hr Documented by: Multivitamins/Minerals/Vitamin C (Tab-A-Vit -) 1 tab PO DAILY [facility] Last Admin: 01/10/20 10:20 Dose: 1 tab Documented by: Pantoprazole Sodium (Protonix Iv) 40 mg IVPUSH DAILY [facility] Last Admin: 01/10/20 10:20 Dose: 40 mg Documented by: ASSESSMENT AND PLAN: Acute on Chronic Hypoxic and Hypercapneic Respiratory Failure Pneumonia ARDS Septic Shock Acute on Chronic Diastolic Heart Failure Pulmonary HTN Paroxysmal Atrial Fibrillation CAD Acute Kidney Injury Likely COPD JUANA/OHS HTN Hypercholesterolemia - completed antibiotics per ID - reculture if febrile - off pressors, maintain MAP >65 - off steroids - rate control - continue anticoagulation - low tidal volume ventilation - titrate FiO2, PEEP to keep SpO2 >90% - lasix today - monitor urine output, creatinine - daily sedation vacations to assess mental status - spontaneous breathing trials as tolerated when mental status improved - enteral feeds - DVT/GI prophylaxis - continue ICU monitoring - plan for tracheostomy for today for prolonged intubation and failure to wean critical care time spent in reviewing chart, evaluating patient and formulating plan 35 min
--- NOTE | 2020-01-10 12:21 | PN ---
Physical Exam: SUBJECTIVE: Patient seen and examined, remains intubated and sedated. Urine output 2300cc and large BM yesterday overnight. No acute overnight events as per nursing staff. OBJECTIVE: Vital Signs Period Temp Pulse Resp BP Sys/Clements Pulse Ox Last 24 Hr 98.1 F-99.4 F 72-87 14-31 88-124/59-85 94-95 GENERAL: sedated and intubated HEAD: Normal with no signs of trauma. Eyes were slighly open and blinking, PERRL. Tongue was slightly protruded. Healing crusted sore on phyltrum. LUNGS: Breath sounds from vent equal, inspiratory rhonchi noted on L side. HEART: distant heart sounds. Irregular, S1, S2 without murmur, rub or gallop. ABDOMEN: distended, soft, active BS. EXTREMITIES: no edema NEUROLOGICAL: sedated SKIN: Warm UEs, LEs cold to touch, dark discoloration of shins bilaterally (venous stasis dermatits) Laboratory Results - last 24 hr 01/10/20 01/10/20 01/10/20 10:20 10:20 10:20 WBC 10.2 H RBC 5.49 Hgb 13.0 Hct 44.8 MCV 81.6 MCH 23.6 L MCHC 29.0 L RDW 23.0 H MPV 10.1 Absolute Neuts (auto) 7.3 Neutrophils % 72.4 Lymphocytes % 15.4 Monocytes % 7.0 Eosinophils % 4.3 Basophils % 0.9 Nucleated RBC % 0 PT with INR Cancelled INR Cancelled PTT (Actin FS) Cancelled Sodium 143 Potassium 3.5 Chloride 102 Carbon Dioxide 37 H Anion Gap 5 L BUN 25.7 H Creatinine 0.4 L Est GFR (CKD-EPI)AfAm 143.45 Est GFR (CKD-EPI)NonAf 123.77 Random Glucose 95 Calcium 8.5 Phosphorus 3.6 Magnesium 2.0 Total Bilirubin 1.8 H AST 24 ALT 43 Alkaline Phosphatase 91 Total Protein 4.9 L Albumin 1.9 L Blood Type Antibody Screen 01/10/20 10:20 WBC RBC Hgb Hct MCV MCH MCHC RDW MPV Absolute Neuts (auto) Neutrophils % Lymphocytes % Monocytes % Eosinophils % Basophils % Nucleated RBC % PT with INR INR PTT (Actin FS) Sodium Potassium Chloride Carbon Dioxide Anion Gap BUN Creatinine Est GFR (CKD-EPI)AfAm Est GFR (CKD-EPI)NonAf Random Glucose Calcium Phosphorus Magnesium Total Bilirubin AST ALT Alkaline Phosphatase Total Protein Albumin Blood Type A POSITIVE Antibody Screen Negative Microbiology 01/07/20 12:00 Sputum - Endotrachea Suction/Ventilator Gram Stain - Final 01/07/20 12:00 Sputum - Endotrachea Suction/Ventilator Sputum Culture - Final S Aureus Strep Agalactiae Group B 01/06/20 21:40 Blood - Peripheral Venous Blood Culture - Preliminary NO GROWTH OBTAINED AFTER 72 HOURS, INCUBATION TO CONTINUE FOR 2 DAYS. 01/06/20 21:30 Blood - Peripheral Venous Blood Culture - Preliminary NO GROWTH OBTAINED AFTER 72 HOURS, INCUBATION TO CONTINUE FOR 2 DAYS. 01/07/20 00:05 Urine - Urine Hilario Urine Culture - Final NO GROWTH OBTAINED 12/27/19 21:00 Blood - Peripheral Venous Blood Culture - Final NO GROWTH AFTER 5 DAYS INCUBATION 12/27/19 21:00 Blood - Peripheral Venous Blood Culture - Final NO GROWTH AFTER 5 DAYS INCUBATION 12/25/19 20:40 Blood - Peripheral Venous Blood Culture - Final NO GROWTH AFTER 5 DAYS INCUBATION 12/25/19 20:30 Blood - Peripheral Venous Blood Culture - Final NO GROWTH AFTER 5 DAYS INCUBATION 12/27/19 14:00 Urine - Urine Hilario Urine Culture - Final NO GROWTH OBTAINED 12/23/19 18:00 Sputum - Endotrachea Suction/Ventilator Gram Stain - Final 12/23/19 18:00 Sputum - Endotrachea Suction/Ventilator Sputum Culture - Final NORMAL RESPIRATORY PEYTON 12/23/19 17:51 Urine - Urine Hilario Urine Culture - Final NO GROWTH OBTAINED 12/16/19 20:13 Blood - Peripheral Venous Blood Culture - Final NO GROWTH AFTER 5 DAYS INCUBATION 12/16/19 19:50 Blood - Peripheral Venous Blood Culture - Final NO GROWTH AFTER 5 DAYS INCUBATION Active Medications Acetaminophen (Ofirmev Injection -) 1,000 mg IVPB Q6H PRN PRN Reason: FEVER Last Admin: 01/06/20 17:42 Dose: 1,000 mg Documented by: Amino Acids (Prosource No Carb Liquid Pkt) 30 ml NGT DAILY [facility] Last Admin: 01/10/20 10:19 Dose: 30 ml Documented by: Ascorbic Acid (Vitamin C -) 1,000 mg PO DAILY [facility] Last Admin: 01/10/20 11:19 Dose: 1,000 mg Documented by: Chlorhexidine Gluconate (Peridex -) 15 ml MM BID [facility] Last Admin: 01/10/20 10:21 Dose: 15 ml Documented by: Propofol (Diprivan -) 1,000,000 mcg in 100 mls @ 3.266 mls/hr IVPB TITR [facility]; Protocol Last Admin: 01/10/20 09:07 Dose: 15 mcg/kg/min, 9.798 mls/hr Documented by: Midazolam HCl (Midazolam 100mg/100ml-0.9%Nacl) 100 mg in 100 mls @ 1 mls/hr IVPB TITR [facility]; Protocol Last Admin: 01/10/20 09:06 Dose: 5 mg/hr, 5 mls/hr Documented by: Vancomycin HCl 1,500 mg/ (Dextrose) 500 mls @ 250 mls/hr IVPB Q24H [facility]; Protocol Last Admin: 01/10/20 15:09 Dose: 250 mls/hr Documented by: Multivitamins/Minerals/Vitamin C (Tab-A-Vit -) 1 tab PO DAILY [facility] Last Admin: 01/10/20 10:20 Dose: 1 tab Documented by: Pantoprazole Sodium (Protonix Iv) 40 mg IVPUSH DAILY [facility] Last Admin: 01/10/20 10:20 Dose: 40 mg Documented by: vent: 14/450/40/5 AC sat 94% drips: 15 propofol, 5 midazolam ASSESSMENT/PLAN: 64yo M with PMHx of HTN, HLD, JUANA (not using CPAP), COPD, GERD, systolic CHF, afib on eliquis (s/p cardioversion 11/2016) who presented with R lobe pneumonia, fluid overload, bilateral LE cellulitis, bilateral hydrocele, and respiratory acidosis. Admitted for acute hypercapneic respiratory failure and acute CHF exacerbation. #Neuro - sedated, on propofol and midazolam - during sedation vacation responds to commands #Cardio fluid overload secondary to CHF exacerbation - ?resolved HTN HLD afib on eliquis - Holding metoprolol due to systolic Bp <90 - discussed with Dr. Petit - may restart metoprolol after trach placement if BP increased due to decrease in sedation (increased wakefulness/activity) - apixaban held in anticipation for tracheostomy; will resume pending surgery recs - holding lisinopril (MONIE resolved) - cardio consulted, appreciate recs #Pulm acute hypercapneic respiratory failure due to CAP vs COPD exacerbation JUANA - tracheostomy today, thoracic surgery consulted, appreciate recs - follow up CXR #GI GERD - PPI #ID bilateral LE cellulitis - resolved Febrile, resolved - sputum culture growing MRSA and strep, WBC 10.3 - started vancomycin (first dose 12/10/2019 at 15:44) - blood cx and UA no growth to date - ID consulted, appreciate recs #Renal - hypernatremia resolved - hypokalemia, repleted - nephro consulted, appreciate recs #Heme - Hg stable - low platelets 103 (134-434) #PPX - DVT: SCDs - GI: pantoprazole #FEN - no standing fluids - replete lytes PRN - advance diet #LTD - ETT 7.5 #Dispo will continue monitoring in the ICU mother's cell: [phone] Home: Brother Ady: [phone] Visit type - Emergency Visit Emergency Visit: Yes ED Registration Date: 12/16/19 Care time: The patient presented to the Emergency Department on the above date and was hospitalized for further evaluation of their emergent condition. - New Patient This patient is new to me today: No - Critical Care Critical Care patient: Yes Total Critical Care Time (in minutes): 36 Critical Care Statement: The care of this patient involved high complexity decision making to prevent further life threatening deterioration of the patient's condition and/or to evaluate & treat vital organ system(s) failure or risk of failure. ATTENDING PHYSICIAN STATEMENT I saw and evaluated the patient. I reviewed the resident's note and discussed the case with the resident. I agree with the resident's findings and plan as documented. SUBJECTIVE: OBJECTIVE: ASSESSMENT AND PLAN:
[2020-01-10] MEDS ORDERED: ROCURONIUM BROMIDE 50 MG/5 ML VIAL IV ONE (13:25)
--- NOTE | 2020-01-10 13:45 | PN ---
Progress Note, Physician History of Present Illness: intubated sedated - Current Medication List Current Medications: Active Medications Acetaminophen (Ofirmev Injection -) 1,000 mg IVPB Q6H PRN PRN Reason: FEVER Last Admin: 01/06/20 17:42 Dose: 1,000 mg Documented by: Amino Acids (Prosource No Carb Liquid Pkt) 30 ml NGT DAILY [facility] Last Admin: 01/10/20 10:19 Dose: 30 ml Documented by: Ascorbic Acid (Vitamin C -) 1,000 mg PO DAILY [facility] Last Admin: 01/10/20 11:19 Dose: 1,000 mg Documented by: Chlorhexidine Gluconate (Peridex -) 15 ml MM BID [facility] Last Admin: 01/10/20 10:21 Dose: 15 ml Documented by: Propofol (Diprivan -) 1,000,000 mcg in 100 mls @ 3.266 mls/hr IVPB TITR [facility]; Protocol Last Admin: 01/10/20 09:07 Dose: 15 mcg/kg/min, 9.798 mls/hr Documented by: Midazolam HCl (Midazolam 100mg/100ml-0.9%Nacl) 100 mg in 100 mls @ 1 mls/hr IVPB TITR [facility]; Protocol Last Admin: 01/10/20 09:06 Dose: 5 mg/hr, 5 mls/hr Documented by: Vancomycin HCl 1,500 mg/ (Dextrose) 500 mls @ 250 mls/hr IVPB Q24H [facility]; Protocol Last Admin: 01/09/20 15:44 Dose: 250 mls/hr Documented by: Multivitamins/Minerals/Vitamin C (Tab-A-Vit -) 1 tab PO DAILY [facility] Last Admin: 01/10/20 10:20 Dose: 1 tab Documented by: Pantoprazole Sodium (Protonix Iv) 40 mg IVPUSH DAILY [facility] Last Admin: 01/10/20 10:20 Dose: 40 mg Documented by: Rocuronium [place] (Zemuron -) 125 mg IV ONCE ONE Stop: 01/10/20 13:26 - Objective Vital Signs: Vital Signs Temperature 99.4 F 01/10/20 10:00 Pulse Rate 77 01/10/20 12:00 Respiratory Rate 14 01/10/20 12:00 Blood Pressure 95/65 01/10/20 12:00 O2 Sat by Pulse Oximetry (%) 94 L 01/10/20 08:59 Constitutional: Yes: Other Cardiovascular: Yes: S1, S2 Respiratory: Yes: Intubated, Mechanically Ventilated Gastrointestinal: Yes: Normal Bowel Sounds, Soft Genitourinary: Yes: Hilario Present Musculoskeletal: Yes: WNL Extremities: Yes: WNL Labs: CBC, BMP 01/10/20 10:20 01/10/20 10:20 INR, PTT INR Cancelled 01/10/20 10:20 Assessment/Plan 64 year old male with a past medical history of HTN, HLD, JUANA (not using CPAP), COPD, GERD, systolic congestive heart failure, paroxysmal atrial fibrillation (on Eliquis, s/p cardioversion 11/2016) who presented with 3 weeks of gradual onset anasarca, scrotal swelling and mild shortness of breath worse on exertion. He as found to have a PNA, on clinical exam signs of fluid overload, ?bilateral lower extremity cellulitis and bilateral hydrocele. 1. Acute Respiratory Failure 2. Fluid Overload/ 3.Bilateral Lower Extremity Cellulitis 4. Hydrocele 5. Hypertension 6. Atrial Fibrillation 7. Elevated Troponin 8. Rule Out COVID 9 pna plan cx reports noted started on vanco monitor fevers icu mgmt vent mgmt res as per icu plan for trach cc 38 min
[2020-01-10 14:16] LABS: INR 1.23 (0.83-1.09); PROTHROMBIN TIME (PATIENT) 14.5 SEC (9.7-13.0)
[2020-01-10] MEDS ORDERED: PT OWN MED DRAWER 7, Y5N ONE (15:05)
[2020-01-10] MEDS: VANCOMYCIN HCL 1,500 MG in DEXTROSE 5%-WATER - 500 ML IVPB SCH (15:09)
--- NOTE | 2020-01-10 15:16 | OPR ---
Patient Name: Shahab Alonso MR#: [id number] Procedure Date: 01/10/2020 Inpatient procedure Preoperative Diagnosis: 1. Hypoxic respiratory failure; 2. Pneumonia; Postoperative Diagnosis: same. Procedure: 1. Flexible Bronchoscopy (performed by Dr. Gutierrez) 2. Percutaneous tracheostomy. Indication: Respiratory failure; Surgeon(s): Dustin Vazquez MD Cosurgeon: dinora Rabbet Operator Surgeon: dinora Anesthesia: local; Findings: Bronchoscopy: secretions in airway; tracheostomy in place without significant bleeding; Specimens Sent: 1. None. Complications: None. Drains / Tubes / Catheters: #8 Portex. Hardware / Implants: na Blood / Fluid Losses: none. Post-Operative Condition: hemodynamically stable. Indications: This patient is a 64 year-old male referred from the ICU team for tracheostomy because of prolonged respiratory failure. An informed consent was obtained from the family for the procedure. All questions were addressed and answered. Details of Procedure: The procedure was done at the bedside. Dr. Gutierrez performed a bronchoscopy after he was given paralysis and prepared and draped. I then inje cted lidocaine and made a small incision. Blunt dissection was done down to the airway. Next under vision from bronchoscopy, the needle as inserted between the second and third ring. Using Seldinger technique the wire, dilator, and larger dilator, and finally the tracheostomy were inserted. It was secured with sutures. A completion bronchoscopy showed good position and hemostasis. He tolerated the procedure well. I will follow the patient in the hospital and as an outpatient.
--- NOTE | 2020-01-10 15:19 | PN ---
Progress Note, Physician History of Present Illness: Pt seen and examined at bedside. He remains in the ICU. He remains intubated. - Current Medication List Current Medications: Active Medications Acetaminophen (Ofirmev Injection -) 1,000 mg IVPB Q6H PRN PRN Reason: FEVER Last Admin: 01/06/20 17:42 Dose: 1,000 mg Documented by: Amino Acids (Prosource No Carb Liquid Pkt) 30 ml NGT DAILY [facility] Last Admin: 01/10/20 10:19 Dose: 30 ml Documented by: Ascorbic Acid (Vitamin C -) 1,000 mg PO DAILY [facility] Last Admin: 01/10/20 11:19 Dose: 1,000 mg Documented by: Chlorhexidine Gluconate (Peridex -) 15 ml MM BID [facility] Last Admin: 01/10/20 10:21 Dose: 15 ml Documented by: Propofol (Diprivan -) 1,000,000 mcg in 100 mls @ 3.266 mls/hr IVPB TITR [facility]; Protocol Last Admin: 01/10/20 09:07 Dose: 15 mcg/kg/min, 9.798 mls/hr Documented by: Midazolam HCl (Midazolam 100mg/100ml-0.9%Nacl) 100 mg in 100 mls @ 1 mls/hr IVPB TITR [facility]; Protocol Last Admin: 01/10/20 09:06 Dose: 5 mg/hr, 5 mls/hr Documented by: Vancomycin HCl 1,500 mg/ (Dextrose) 500 mls @ 250 mls/hr IVPB Q24H [facility]; Protocol Last Admin: 01/09/20 15:44 Dose: 250 mls/hr Documented by: Multivitamins/Minerals/Vitamin C (Tab-A-Vit -) 1 tab PO DAILY [facility] Last Admin: 01/10/20 10:20 Dose: 1 tab Documented by: Pantoprazole Sodium (Protonix Iv) 40 mg IVPUSH DAILY [facility] Last Admin: 01/10/20 10:20 Dose: 40 mg Documented by: - Objective Vital Signs: Vital Signs Temperature 99.4 F 01/10/20 10:00 Pulse Rate 68 01/10/20 14:00 Respiratory Rate 14 01/10/20 14:00 Blood Pressure 94/64 01/10/20 14:00 O2 Sat by Pulse Oximetry (%) 94 L 01/10/20 12:45 Constitutional: Yes: Calm Eyes: Yes: Conjunctiva Clear HENT: Yes: Atraumatic Neck: Yes: Supple Cardiovascular: Yes: S1, S2 Respiratory: Yes: CTA Bilaterally, Mechanically Ventilated Gastrointestinal: Yes: Soft Genitourinary: Yes: WNL Musculoskeletal: Yes: WNL Edema: Yes Integumentary: Yes: Venous Stasis Changes Neurological: Yes: Lethargy Labs: CBC, BMP 01/10/20 10:20 01/10/20 10:20 INR, PTT INR 1.23 (0.83-1.09) H 01/10/20 13:50 Problem List - Problems (1) Anasarca Code(s): R60.1 - GENERALIZED EDEMA (2) Congestive heart failure (CHF) Code(s): I50.9 - HEART FAILURE, UNSPECIFIED Qualifiers: Heart failure type: diastolic Heart failure chronicity: acute on chronic Qualified Code(s): I50.33 - Acute on chronic diastolic (congestive) heart failure (3) Acute kidney injury Code(s): N17.9 - ACUTE KIDNEY FAILURE, UNSPECIFIED Assessment/Plan Current Medications Generic Name Dose Route Start Last Admin Trade Name Freq PRN Reason Stop Dose Admin Acetaminophen 1,000 mg 01/06/20 17:18 01/06/20 17:42 Ofirmev Injection - IVPB 1,000 mg Q6H PRN Administration FEVER Amino Acids 30 ml 01/07/20 10:00 01/10/20 10:19 Prosource No Carb Liquid Pkt NGT 30 ml DAILY [facility] Administration Ascorbic Acid 1,000 mg 12/17/19 10:00 01/10/20 11:19 Vitamin C - PO 1,000 mg DAILY [facility] Administration Chlorhexidine Gluconate 15 ml 12/22/19 12:30 01/10/20 10:21 Peridex - MM 15 ml BID [facility] Administration Propofol 1,000,000 mcg in 100 mls @ 3.266 mls/hr 12/17/19 04:30 01/10/20 09:07 Diprivan - IVPB 15 mcg/kg/min TITR [facility] 9.798 mls/hr Administration Protocol 5 MCG/KG/MIN Midazolam HCl 100 mg in 100 mls @ 1 mls/hr 12/22/19 08:00 01/10/20 09:06 Midazolam 100mg/100ml-0.9%Nacl IVPB 5 mg/hr TITR [facility] 5 mls/hr Administration Protocol 1 MG/HR Vancomycin HCl 1,500 mg/ 500 mls @ 250 mls/hr 01/09/20 15:00 01/09/20 15:44 Dextrose IVPB 250 mls/hr Q24H [facility] Administration Protocol Multivitamins/Minerals/Vitamin C 1 tab 12/17/19 10:00 01/10/20 10:20 Tab-A-Vit - PO 1 tab DAILY [facility] Administration Pantoprazole Sodium 40 mg 12/19/19 10:00 01/10/20 10:20 Protonix Iv IVPUSH 40 mg DAILY [facility] Administration Impression 1. MONIE 2. CHF acute 3. acute resp failure requiring intubation 4. atrial fibrillation 5. hx of htn 6. obesity 7. chronic smoker 8. hypokalemia Plan - renal function stable - repeat labs in am - cont vent support - lasix prn - discussed with ICU - maintain map 65 - monitor sodium levels
--- NOTE | 2020-01-10 15:22 | PROC ---
Procedure Note Procedure: BRONCHOSCOPY NOTE Bflex video bronchoscope was placed via the ETT, airways were examined down to the segmental level. No endobronchial lesions noted. Trachea visualized as the thoracic surgeon placed the percutaneous tracheostomy. Bronchoscope then inserted into the new tracheostomy confirming good placement and no otoniel bleeding noted. Bronchoscope withdrawn and procedure terminated. No immediate complications. Rupert Gutierrez MD
[2020-01-10] MEDS ORDERED: ALBUTEROL SO4 2.5/IPRATROPIUM 0.5 INH SOL 3 ML VIAL.NEB. NEB ONE ×2 (15:37→15:40)
[2020-01-10 15:59] LABS: ANISOCYTOSIS 1+; MACROCYTOSIS 1+; PLATELET ESTIMATE DECREASED
[2020-01-10] MEDS ORDERED: DEXTROSE 5%-LACTATED RINGERS 500 ML IV SCH (17:45)
[2020-01-11 06:35] LABS: BASO % 1.2 % (0-2.0); EOS % 3.4 % (0-4.5); HEMATOCRIT 47.3 % (35.4-49); HEMOGLOBIN 13.6 GM/dL (11.7-16.9); LYMPH % 7.9 % (8-40); MCH 23.3 pg (25.7-33.7); MCHC 28.7 g/dl (32.0-35.9); MEAN CELL VOLUME 81.1 fl (80-96); MEAN PLT VOLUME 9.5 fl (7.5-11.1); MONO % 7.3 % (3.8-10.2); NEUT % 80.2 % (42.8-82.8); PLATELET COUNT 81 K/MM3 (134-434); RBC 5.83 M/mm3 (4.00-5.60); RDW 23.3 % (11.9-15.9); WHITE BLOOD COUNT 10.2 K/mm3 (4.0-10.0)
[2020-01-11 07:09] LABS: ALBUMIN 2.1 g/dl (3.4-5.0); BLOOD UREA NITROGEN 20.8 mg/dL (7-18); CALCIUM 8.8 mg/dL (8.5-10.1); CREATININE 0.4 mg/dL (0.55-1.3); MAGNESIUM 1.9 mg/dL (1.8-2.4); POTASSIUM 3.2 mmol/L (3.5-5.1); TOT PROT 5.4 g/dl (6.4-8.2)
[2020-01-11] MEDS ORDERED: POTASSIUM CHLORIDE ORAL LIQUID 20 MEQ/15 ML PO ONE (07:59)
[2020-01-11] MEDS: CHLORHEXIDINE GLUCONATE 0.12% 15ML CUP MM SCH (09:16)
[2020-01-11] MEDS: MULTIVITAMINS (DAILY MVI) TABLET (FP) PO SCH (09:16)
[2020-01-11] MEDS: ASCORBIC ACID 500 MG TABLET (FP) PO SCH (09:16)
[2020-01-11] MEDS: PANTOPRAZOLE SODIUM 40 MG VIAL IVPUSH SCH (09:16)
[2020-01-11] MEDS: KCL 10 MEQ IVPB 10 MEQ/100 ML INFUS.BAG IVPB SCH ×3 (09:16→12:01)
[2020-01-11] MEDS: AMINO ACIDS/PROTEIN HYDROLYS 30 ML LIQUID.PKT NGT SCH (09:16)
[2020-01-11] MEDS ORDERED: FUROSEMIDE 40 MG/4 ML INJECTABLE VIAL IVPUSH ONE (10:24)
--- NOTE | 2020-01-11 11:34 | PN ---
Teaching Attending Note Name of Resident: Lily Hernandez ATTENDING PHYSICIAN STATEMENT I saw and evaluated the patient. I reviewed the resident's note and discussed the case with the resident. I agree with the resident's findings and plan as documented. SUBJECTIVE: Pt seen and examined in the ICU. s/p tracheostomy, awake off sedation.. Vented on volume assist control with 40% FiO2, PEEP 5. Placed on CPAP/PS. OBJECTIVE: Vital Signs Period Temp Pulse Resp BP Sys/Clements Pulse Ox Last 24 Hr 98.9 F-99.7 F 68-114 14-23 94-140/64-93 93-99 Intake & Output 01/08/20 01/09/20 01/10/20 01/11/20 23:59 23:59 23:59 23:59 Intake Total 3055.2 2838.6 747 504 Output Total 1400 2300 800 700 Balance 1655.2 538.6 -53 -196 Weight 106.821 kg 106.821 kg 106.594 kg 106.594 kg Gen: vented, awake Heart: RRR Lung: scattered rhonchi Abd: soft, nontender Ext: no edema CBC, BMP 01/11/20 06:18 01/11/20 06:18 Active Medications Acetaminophen (Ofirmev Injection -) 1,000 mg IVPB Q6H PRN PRN Reason: FEVER Last Admin: 01/06/20 17:42 Dose: 1,000 mg Documented by: Amino Acids (Prosource No Carb Liquid Pkt) 30 ml NGT DAILY [facility] Last Admin: 01/11/20 09:16 Dose: 30 ml Documented by: Apixaban (Eliquis -) 5 mg PO BID [facility] Ascorbic Acid (Vitamin C -) 1,000 mg PO DAILY [facility] Last Admin: 01/11/20 09:16 Dose: 1,000 mg Documented by: Chlorhexidine Gluconate (Peridex -) 15 ml MM BID [facility]TE Last Admin: 01/11/20 09:16 Dose: 15 ml Documented by: Vancomycin HCl 1,500 mg/ (Dextrose) 500 mls @ 250 mls/hr IVPB Q24H [facility]; Protocol Last Admin: 01/10/20 15:09 Dose: 250 mls/hr Documented by: Multivitamins/Minerals/Vitamin C (Tab-A-Vit -) 1 tab PO DAILY [facility] Last Admin: 01/11/20 09:16 Dose: 1 tab Documented by: Pantoprazole Sodium (Protonix Iv) 40 mg IVPUSH DAILY [facility] Last Admin: 01/11/20 09:16 Dose: 40 mg Documented by: ASSESSMENT AND PLAN: Acute on Chronic Hypoxic and Hypercapneic Respiratory Failure Pneumonia ARDS Septic Shock Acute on Chronic Diastolic Heart Failure Pulmonary HTN Paroxysmal Atrial Fibrillation CAD Acute Kidney Injury Likely COPD JUANA/OHS HTN Hypercholesterolemia - antibiotics per ID - reculture if febrile - off pressors, maintain MAP >65 - off steroids - rate control - continue anticoagulation - spontaneous breathing trials as tolerated - titrate FiO2, PEEP to keep SpO2 >90% - lasix today - monitor urine output, creatinine - enteral feeds - DVT/GI prophylaxis - can monitor on vent floor critical care time spent in reviewing chart, evaluating patient and formulating plan 35 min
[2020-01-11] MEDS: APIXABAN 5 MG TABLET PO SCH (12:01)
--- NOTE | 2020-01-11 12:21 | PN ---
Progress Note, Physician History of Present Illness: Pt seen and examined at bedside. He remains in the ICU. He remains lethargic. - Current Medication List Current Medications: Active Medications Acetaminophen (Ofirmev Injection -) 1,000 mg IVPB Q6H PRN PRN Reason: FEVER Last Admin: 01/06/20 17:42 Dose: 1,000 mg Documented by: Amino Acids (Prosource No Carb Liquid Pkt) 30 ml NGT DAILY [facility] Last Admin: 01/11/20 09:16 Dose: 30 ml Documented by: Apixaban (Eliquis -) 5 mg PO BID [facility]TE Last Admin: 01/11/20 12:01 Dose: 5 mg Documented by: Ascorbic Acid (Vitamin C -) 1,000 mg PO DAILY [facility] Last Admin: 01/11/20 09:16 Dose: 1,000 mg Documented by: Chlorhexidine Gluconate (Peridex -) 15 ml MM BID [facility] Last Admin: 01/11/20 09:16 Dose: 15 ml Documented by: Vancomycin HCl 1,500 mg/ (Dextrose) 500 mls @ 250 mls/hr IVPB Q24H [facility]; Protocol Last Admin: 01/10/20 15:09 Dose: 250 mls/hr Documented by: Multivitamins/Minerals/Vitamin C (Tab-A-Vit -) 1 tab PO DAILY [facility] Last Admin: 01/11/20 09:16 Dose: 1 tab Documented by: Pantoprazole Sodium (Protonix Iv) 40 mg IVPUSH DAILY [facility] Last Admin: 01/11/20 09:16 Dose: 40 mg Documented by: - Objective Vital Signs: Vital Signs Temperature 99.4 F 01/11/20 06:00 Pulse Rate 114 H 01/11/20 06:00 Respiratory Rate 23 H 01/11/20 08:35 Blood Pressure 123/86 01/11/20 06:00 O2 Sat by Pulse Oximetry (%) 99 01/11/20 08:35 Constitutional: Yes: Calm Eyes: Yes: Conjunctiva Clear HENT: Yes: Atraumatic Neck: Yes: Supple Cardiovascular: Yes: S1, S2 Respiratory: Yes: Mechanically Ventilated Gastrointestinal: Yes: Soft, Abdomen, Obese Genitourinary: Yes: Hilario Present Musculoskeletal: Yes: Muscle Weakness Neurological: Yes: Lethargy Labs: CBC, BMP 01/11/20 06:18 07/08/20 06:18 INR, PTT INR 1.23 (0.83-1.09) H 01/10/20 13:50 Problem List - Problems (1) Anasarca Code(s): R60.1 - GENERALIZED EDEMA (2) Congestive heart failure (CHF) Code(s): I50.9 - HEART FAILURE, UNSPECIFIED Qualifiers: Heart failure type: diastolic Heart failure chronicity: acute on chronic Qualified Code(s): I50.33 - Acute on chronic diastolic (congestive) heart failure (3) Acute kidney injury Code(s): N17.9 - ACUTE KIDNEY FAILURE, UNSPECIFIED Assessment/Plan Current Medications Generic Name Dose Route Start Last Admin Trade Name Freq PRN Reason Stop Dose Admin Acetaminophen 1,000 mg 01/06/20 17:18 01/06/20 17:42 Ofirmev Injection - IVPB 1,000 mg Q6H PRN Administration FEVER Amino Acids 30 ml 01/07/20 10:00 01/11/20 09:16 Prosource No Carb Liquid Pkt NGT 30 ml DAILY [facility]TE Administration Apixaban 5 mg 01/11/20 10:15 01/11/20 12:01 Eliquis - PO 5 mg BID [facility]NETTE Administration Ascorbic Acid 1,000 mg 12/17/19 10:00 01/11/20 09:16 Vitamin C - PO 1,000 mg DAILY [facility]TE Administration Chlorhexidine Gluconate 15 ml 12/22/19 12:30 01/11/20 09:16 Peridex - MM 15 ml BID [facility]NETTE Administration Vancomycin HCl 1,500 mg/ 500 mls @ 250 mls/hr 01/09/20 15:00 01/10/20 15:09 Dextrose IVPB 250 mls/hr Q24H [facility] Administration Protocol Multivitamins/Minerals/Vitamin C 1 tab 12/17/19 10:00 01/11/20 09:16 Tab-A-Vit - PO 1 tab DAILY [facility] Administration Pantoprazole Sodium 40 mg 12/19/19 10:00 01/11/20 09:16 Protonix Iv IVPUSH 40 mg DAILY [facility] Administration Impression 1. MONIE 2. CHF acute 3. acute resp failure requiring intubation 4. atrial fibrillation 5. hx of htn 6. obesity 7. chronic smoker 8. 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
[2020-01-11 12:28] LABS: BILIRUBIN,DIRECT 2.1 mg/dL (0.0-0.2)
[2020-01-11] MEDS: ACETAMINOPHEN 1000 MG/100 ML VIAL (NON FORMULARY) IVPB PRN (12:45)
--- NOTE | 2020-01-11 12:49 | PN ---
Progress Note, Physician History of Present Illness: s/p trach still mental status not good - Current Medication List Current Medications: Active Medications Acetaminophen (Ofirmev Injection -) 1,000 mg IVPB Q6H PRN PRN Reason: FEVER Last Admin: 01/06/20 17:42 Dose: 1,000 mg Documented by: Amino Acids (Prosource No Carb Liquid Pkt) 30 ml NGT DAILY [facility] Last Admin: 01/11/20 09:16 Dose: 30 ml Documented by: Apixaban (Eliquis -) 5 mg PO BID [facility] Last Admin: 01/11/20 12:01 Dose: 5 mg Documented by: Ascorbic Acid (Vitamin C -) 1,000 mg PO DAILY [facility] Last Admin: 01/11/20 09:16 Dose: 1,000 mg Documented by: Chlorhexidine Gluconate (Peridex -) 15 ml MM BID [facility] Last Admin: 01/11/20 09:16 Dose: 15 ml Documented by: Vancomycin HCl 1,500 mg/ (Dextrose) 500 mls @ 250 mls/hr IVPB Q24H [facility]; Protocol Last Admin: 01/10/20 15:09 Dose: 250 mls/hr Documented by: Multivitamins/Minerals/Vitamin C (Tab-A-Vit -) 1 tab PO DAILY [facility] Last Admin: 01/11/20 09:16 Dose: 1 tab Documented by: Pantoprazole Sodium (Protonix Iv) 40 mg IVPUSH DAILY [facility] Last Admin: 01/11/20 09:16 Dose: 40 mg Documented by: - Objective Vital Signs: Vital Signs Temperature 100.8 F H 01/11/20 12:00 Pulse Rate 114 H 01/11/20 12:00 Respiratory Rate 28 H 01/11/20 12:00 Blood Pressure 123/84 01/11/20 12:00 O2 Sat by Pulse Oximetry (%) 99 01/11/20 09:00 Constitutional: Yes: No Distress, Calm Cardiovascular: Yes: S1, S2 Respiratory: Yes: Other (s/p trach) Gastrointestinal: Yes: Normal Bowel Sounds, Soft, Other (ng in place) Musculoskeletal: Yes: WNL Extremities: Yes: WNL Edema: LLE: 1+, RLE: 1+ Neurological: Yes: Alert, Other Labs: CBC, BMP 01/11/20 06:18 01/11/20 06:18 INR, PTT INR 1.23 (0.83-1.09) H 01/10/20 13:50 Assessment/Plan 64 year old male with a past medical history of HTN, HLD, JUANA (not using CPAP), COPD, GERD, systolic congestive heart failure, paroxysmal atrial fibrillation (on Eliquis, s/p cardioversion 11/2016) who presented with 3 weeks of gradual onset anasarca, scrotal swelling and mild shortness of breath worse on exertion. He as found to have a PNA, on clinical exam signs of fluid overload, ?bilateral lower extremity cellulitis and bilateral hydrocele. 1. Acute Respiratory Failure 2. Fluid Overload/ 3.Bilateral Lower Extremity Cellulitis 4. Hydrocele 5. Hypertension 6. Atrial Fibrillation 7. Elevated Troponin 8. Rule Out COVID 9 pna plan abx vent managent trach care rest as per icu follow vanco levels cc 38 min
--- NOTE | 2020-01-11 13:03 | PN ---
Progress Note, Physician History of Present Illness: 64 year old male with a past medical history of HTN, HLD, JUANA (not using CPAP), COPD, GERD, systolic congestive heart failure, paroxysmal atrial fibrillation (on Eliquis, s/p cardioversion 11/2016) who presented with 3 weeks of gradual onset anasarca, scrotal swelling and mild shortness of breath worse on exertion. CXR s/f diffused bilat opacities with c/f PNA +/-fluid overload, ?bilateral l ower extremity cellulitis and bilateral hydrocele, and respiratory acidosis is admitted for Acute hypercapneic respiratory failure and Acute CHF exacerbation, intubated for progressive hypercarbic respiratory failure, decreased mental status on BiPAP. 01/11/2020 s/p percutaneous tracheostomy, awake off sedation.. Vented on volume assist control with 40% FiO2, PEEP 5. Placed on CPAP/PS. - Current Medication List Current Medications: Active Medications Acetaminophen (Ofirmev Injection -) 1,000 mg IVPB Q6H PRN PRN Reason: FEVER Last Admin: 01/06/20 17:42 Dose: 1,000 mg Documented by: Amino Acids (Prosource No Carb Liquid Pkt) 30 ml NGT DAILY [facility] Last Admin: 01/11/20 09:16 Dose: 30 ml Documented by: Apixaban (Eliquis -) 5 mg PO BID [facility] Last Admin: 01/11/20 12:01 Dose: 5 mg Documented by: Ascorbic Acid (Vitamin C -) 1,000 mg PO DAILY [facility] Last Admin: 01/11/20 09:16 Dose: 1,000 mg Documented by: Chlorhexidine Gluconate (Peridex -) 15 ml MM BID [facility] Last Admin: 01/11/20 09:16 Dose: 15 ml Documented by: Vancomycin HCl 1,500 mg/ (Dextrose) 500 mls @ 250 mls/hr IVPB Q24H [facility]; Protocol Last Admin: 01/10/20 15:09 Dose: 250 mls/hr Documented by: Multivitamins/Minerals/Vitamin C (Tab-A-Vit -) 1 tab PO DAILY [facility] Last Admin: 01/11/20 09:16 Dose: 1 tab Documented by: Pantoprazole Sodium (Protonix Iv) 40 mg IVPUSH DAILY [facility] Last Admin: 01/11/20 09:16 Dose: 40 mg Documented by: - Objective Vital Signs: Vital Signs Temperature 100.8 F H 01/11/20 12:00 Pulse Rate 114 H 01/11/20 12:00 Respiratory Rate 28 H 01/11/20 12:00 Blood Pressure 123/84 01/11/20 12:00 O2 Sat by Pulse Oximetry (%) 99 01/11/20 09:00 Constitutional: Yes: No Distress, Calm Neck: Yes: Other (Tracheostomy) Cardiovascular: Yes: Tachycardia Respiratory: Yes: Mechanically Ventilated, Rhonchi Gastrointestinal: Yes: Normal Bowel Sounds, Soft, Abdomen, Obese Genitourinary: Yes: Hilario Present Edema: No Labs: CBC, BMP 01/11/20 06:18 01/11/20 06:18 INR, PTT INR 1.23 (0.83-1.09) H 01/10/20 13:50 - ....Imaging Chest X-ray: Report Reviewed (Bibasilar ATX with left effusion) EKG: Report Reviewed (Tele: ) Problem List - Problems (1) Congestive heart failure (CHF) Code(s): I50.9 - HEART FAILURE, UNSPECIFIED Qualifiers: Heart failure type: diastolic Heart failure chronicity: acute on chronic Qualified Code(s): I50.33 - Acute on chronic diastolic (congestive) heart failure (2) Pneumonia Code(s): J18.9 - PNEUMONIA, UNSPECIFIED ORGANISM Qualifiers: Pneumonia type: due to unspecified organism Laterality: right Lung location: lower lobe of lung Qualified Code(s): J18.9 - Pneumonia, unspecified organism (3) Acute on chronic diastolic (congestive) heart failure Code(s): I50.33 - ACUTE ON CHRONIC DIASTOLIC (CONGESTIVE) HEART FAILURE (4) Acute respiratory failure with hypoxia and hypercarbia Code(s): J96.01 - ACUTE RESPIRATORY FAILURE WITH HYPOXIA; J96.02 - ACUTE RESPIRATORY FAILURE WITH HYPERCAPNIA (5) Atrial fibrillation Code(s): I48.91 - UNSPECIFIED ATRIAL FIBRILLATION Qualifiers: Atrial fibrillation type: paroxysmal Qualified Code(s): I48.0 - Paroxysmal atrial fibrillation (6) COPD (chronic obstructive pulmonary disease) Code(s): J44.9 - CHRONIC OBSTRUCTIVE PULMONARY DISEASE, UNSPECIFIED Qualifiers: COPD type: unspecified COPD Qualified Code(s): J44.9 - Chronic obstructive pulmonary disease, unspecified (7) Hypertension Code(s): I10 - ESSENTIAL (PRIMARY) HYPERTENSION Qualifiers: Hypertension type: essential hypertension Qualified Code(s): I10 - Essential (primary) hypertension (8) Pleural effusion Code(s): J90 - PLEURAL EFFUSION, NOT ELSEWHERE CLASSIFIED Assessment/Plan 10/26/2017 Normal LV size with mild LVH, normal LV fxn, normal RV size and fxn, mild LAE, mild MR, mild-mod TR, mild NJ, RVSP 43 mmHg 11/19/2016 Lexiscan Myoview: Apical ischemia, LVEF 45-52% 10/06/2016 Echocardiography revealed mild to moderate LV systolic dysfunction, moderate TR, RVSP of 30-40 mmH 1. Acute on chronic Hypoxic and Hypercapneic Respiratory Failure s/p tracheostomy 2. Acute on chronic LV Diastolic Heart Failure with pleural effusion and pulm HTN 3. Pneumonia, ARDS, (septic shock) 4. Paroxysmal atrial fibrillation with periods of rapid ventricular response post DCCV, [id number] score of 2 5. Obstructive Sleep Apnea/Obesity Hypoventilation Syndrome 6. HTN/HCVD 7. Hypercholesterolemia 8. CAD, angina pectoris 9. Bilateral cellulitis with h/o abscess s/p debridement 10. Bilateral hydrocele PLAN: 1. Low tidal volume ventilation, titrate FiO2, PEEP to keep SpO2 >90%. 2. DVT and GI prophylaxis and enteral feeds 3. Diuretics as needed with monitor renal function and electrolytes 4. Resume Lopressor 25 mg BID and Eliquis 5 mg BID 5. Completed abx course per ID 6. Daily sedation vacations to assess mental status, spontaneous breathing trials as tolerated when mental status improved
[2020-01-11] MEDS: METOPROLOL TARTRATE 25 MG TABLET (FP) PO SCH (13:28)
--- NOTE | 2020-01-11 14:32 | PN ---
Physical Exam: SUBJECTIVE: Patient seen and examined, received trach yesterday and there were no acute events overnight per nursing staff. Urine output 800cc. Patient was off all sedation and was responsive to questions per head nodding. OBJECTIVE: Vital Signs Period Temp Pulse Resp BP Sys/Clements Pulse Ox Last 24 Hr 98.9 F-100.8 F 84-114 14-28 99-140/66-94 93-99 GENERAL: tracheostomy in place, responsive to questions per head nodding HEAD: Normal with no signs of trauma. Eyes were slighly open and blinking, PERRL. Tongue was slightly protruded. Healing crusted sore on phyltrum. LUNGS: Breath sounds equal and clear to auscultation bilaterally. HEART: distant heart sounds. Irregular, S1, S2 without murmur, rub or gallop. ABDOMEN: distended, soft, active BS. EXTREMITIES: no edema SKIN: Warm UEs, LEs cold to touch, dark discoloration of shins bilaterally (venous stasis dermatits) Laboratory Results - last 24 hr 01/10/20 01/10/20 01/11/20 10:20 13:50 06:18 WBC 10.2 H RBC 5.83 H Hgb 13.6 Hct 47.3 MCV 81.1 MCH 23.3 L MCHC 28.7 L RDW 23.3 H Plt Count 78 L D 81 L MPV 9.5 Absolute Neuts (auto) 8.2 H Neutrophils % 80.2 Lymphocytes % 7.9 L D Monocytes % 7.3 Eosinophils % 3.4 Basophils % 1.2 Nucleated RBC % 0 Hypochromia 1+ Platelet Estimate Decreased Polychromasia 0 Poikilocytosis 0 Anisocytosis 1+ Microcytosis 1+ Macrocytosis 1+ PT with INR 14.50 H INR 1.23 H Sodium Potassium Chloride Carbon Dioxide Anion Gap BUN Creatinine Est GFR (CKD-EPI)AfAm Est GFR (CKD-EPI)NonAf Random Glucose Calcium Phosphorus Magnesium Total Bilirubin Direct Bilirubin AST ALT Alkaline Phosphatase Total Protein Albumin 01/11/20 06:18 WBC RBC Hgb Hct MCV MCH MCHC RDW Plt Count MPV Absolute Neuts (auto) Neutrophils % Lymphocytes % Monocytes % Eosinophils % Basophils % Nucleated RBC % Hypochromia Platelet Estimate Polychromasia Poikilocytosis Anisocytosis Microcytosis Macrocytosis PT with INR INR Sodium 143 Potassium 3.2 L Chloride 102 Carbon Dioxide 34 H Anion Gap 7 L BUN 20.8 H Creatinine 0.4 L Est GFR (CKD-EPI)AfAm 143.45 Est GFR (CKD-EPI)NonAf 123.77 Random Glucose 108 H Calcium 8.8 Phosphorus 3.0 Magnesium 1.9 Total Bilirubin 3.0 H Direct Bilirubin 2.1 H AST 23 ALT 42 Alkaline Phosphatase 107 Total Protein 5.4 L Albumin 2.1 L Active Medications Generic Name Dose Route Start Last Admin Trade Name Freq PRN Reason Stop Dose Admin Acetaminophen 1,000 mg 01/06/20 17:18 01/06/20 17:42 Ofirmev Injection - IVPB 1,000 mg Q6H PRN Administration FEVER Amino Acids 30 ml 01/07/20 10:00 01/11/20 09:16 Prosource No Carb Liquid Pkt NGT 30 ml DAILY LYNETTE Administration Apixaban 5 mg 01/11/20 10:15 01/11/20 12:01 Eliquis - PO 5 mg BID LYNETTE Administration Ascorbic Acid 1,000 mg 12/17/19 10:00 01/11/20 09:16 Vitamin C - PO 1,000 mg DAILY LYNETTE Administration Chlorhexidine Gluconate 15 ml 12/22/19 12:30 01/11/20 09:16 Peridex - MM 15 ml BID LYNETTE Administration Vancomycin HCl 1,500 mg/ 500 mls @ 250 mls/hr 01/09/20 15:00 01/10/20 15:09 Dextrose IVPB 250 mls/hr Q24H LYNETET Administration Protocol Metoprolol Tartrate 25 mg 01/11/20 13:15 01/11/20 13:28 Lopressor - PO 25 mg BID LYNETTE Administration Multivitamins/Minerals/Vitamin C 1 tab 12/17/19 10:00 01/11/20 09:16 Tab-A-Vit - PO 1 tab DAILY LYNETTE Administration Pantoprazole Sodium 40 mg 12/19/19 10:00 01/11/20 09:16 Protonix Iv IVPUSH 40 mg DAILY LYNETTE Administration ASSESSMENT/PLAN: 64yo M with PMHx of HTN, HLD, JUANA (not using CPAP), COPD, GERD, systolic CHF, afib on eliquis (s/p cardioversion 11/2016) who presented with R lobe pneumonia, fluid overload, bilateral LE cellulitis, bilateral hydrocele, and respiratory acidosis. He was admitted to ICU for treatment of acute hypercapneic respiratory failure secondary to acute CHF exacerbation requiring intubation. Cardiology, ID, nephro, and thoracic surgery were consulted. Patient was maintained on LTVV (for ARDS) and diuresed aggressively. Patient developed MONIE and diuresis was held; MONIE resolved. During his stay, patient decompensated requiring pressor support and stress dose steroids; eventually patient was tapered off of pressors. Patient completed a course of abx. Most Recent sputum cx significant for MRSA + strep agalacticae for which patient was restarted on IV vanco. Patient's vent settings improved however patient was unable to be weaned off of the vent. He received tracheostomy on 01/10/2020 and sedation was discontinued. Patient is stable on assist control (96%) and other vital signs have remained stable. Mental status is improving and patient responds to commands. Tube feeds have been re-stared and electrolytes were repleted. After trach patient spiked a temp to 100.8, thouht to be post-op fever. Patient stable for transfer to [facility] (vent floor). Visit type - Emergency Visit Emergency Visit: Yes ED Registration Date: 12/16/19 Care time: The patient presented to the Emergency Department on the above date and was hospitalized for further evaluation of their emergent condition. - New Patient This patient is new to me today: No - Critical Care Critical Care patient: Yes Total Critical Care Time (in minutes): 36 Critical Care Statement: The care of this patient involved high complexity decision making to prevent further life threatening deterioration of the patient's condition and/or to evaluate & treat vital organ system(s) failure or risk of failure. ATTENDING PHYSICIAN STATEMENT I saw and evaluated the patient. I reviewed the resident's note and discussed the case with the resident. I agree with the resident's findings and plan as documented. SUBJECTIVE: OBJECTIVE: ASSESSMENT AND PLAN:
[2020-01-11] MEDS ORDERED: PT OWN MED DRAWER 7, Y5N ONE (16:28)
[2020-01-11] MEDS: VANCOMYCIN HCL 1,500 MG in DEXTROSE 5%-WATER - 500 ML IVPB SCH (16:37)
[2020-01-12] MEDS: ACETAMINOPHEN 1000 MG/100 ML VIAL (NON FORMULARY) IVPB PRN ×3 (01:07→11:31)
[2020-01-12] MEDS: METOPROLOL TARTRATE 25 MG TABLET (FP) PO SCH ×2 (01:07→10:32)
[2020-01-12] MEDS: APIXABAN 5 MG TABLET PO SCH (02:16)
[2020-01-12] MEDS: CHLORHEXIDINE GLUCONATE 0.12% 15ML CUP MM SCH ×3 (02:16→22:39)
--- NOTE | 2020-01-12 07:55 | PN ---
Progress Note, Physician History of Present Illness: pulmonary awake, on vent support,ac mode,-resp distress,febrile 101.1 - Current Medication List Current Medications: Active Medications Acetaminophen (Ofirmev Injection -) 1,000 mg IVPB Q6H PRN PRN Reason: FEVER Last Admin: 01/12/20 01:07 Dose: 1,000 mg Documented by: Amino Acids (Prosource No Carb Liquid Pkt) 30 ml NGT DAILY@0800 [facility] Apixaban (Eliquis -) 5 mg PO BID LYNETTE Ascorbic Acid (Vitamin C -) 1,000 mg PO DAILY LYNETTE Chlorhexidine Gluconate (Peridex -) 15 ml MM BID LYNETTE Vancomycin HCl 1,500 mg/ (Dextrose) 500 mls @ 250 mls/hr IVPB Q24H [facility]; Protocol Metoprolol Tartrate (Lopressor -) 25 mg PO BID LYNETTE Last Admin: 01/12/20 01:07 Dose: 25 mg Documented by: Multivitamins/Minerals/Vitamin C (Tab-A-Vit -) 1 tab PO DAILY [facility] Pantoprazole Sodium (Protonix Iv) 40 mg IVPUSH DAILY [facility] - Objective Vital Signs: Vital Signs Temperature 101.1 F H 01/12/20 00:00 Pulse Rate 107 H 01/12/20 00:00 Respiratory Rate 20 01/12/20 04:35 Blood Pressure 142/87 01/12/20 00:00 O2 Sat by Pulse Oximetry (%) 96 01/12/20 04:35 Constitutional: Yes: Well Nourished, Calm Eyes: Yes: WNL HENT: Yes: WNL Neck: Yes: Supple (trach) Cardiovascular: Yes: Regular Rate and Rhythm, S1, S2 Respiratory: Yes: Rhonchi (few rhonchi) Gastrointestinal: Yes: Normal Bowel Sounds, Soft Extremities: Yes: WNL Edema: No Labs: CBC, BMP 01/11/20 06:18 Assessment/Plan ASSESSMENT AND PLAN: Acute on Chronic Hypoxic and Hypercapneic Respiratory Failure Pneumonia ARDS Septic Shock Acute on Chronic Diastolic Heart Failure Pulmonary HTN Paroxysmal Atrial Fibrillation CAD Acute Kidney Injury Likely COPD JUANA/OHS HTN Hypercholesterolemia - antibiotics per ID - cultures - rate control - continue anticoagulation - spontaneous breathing trials as tolerated - titrate FiO2, PEEP to keep SpO2 >90% - monitor urine output, creatinine - enteral feeds - DVT/GI prophylaxis DR MELTON
--- NOTE | 2020-01-12 08:55 | PN ---
Progress Note, Physician History of Present Illness: 64yo M with PMHx of HTN, HLD, JUANA (not using CPAP), COPD, GERD, systolic CHF, afib on eliquis (s/p cardioversion 11/2016) who presented with R lobe pneumonia, fluid overload, bilateral LE cellulitis, bilateral hydrocele, and respiratory acidosis. He was admitted to ICU for treatment of acute hypercapneic respiratory failure secondary to acute CHF exacerbation requiring intubation. Cardiology, ID, nephro, and thoracic surgery were consulted. Patient was maintained on LTVV (for ARDS) and diuresed aggressively. Patient developed MONIE and diuresis was held; MONIE resolved. During his stay, patient decompensated requiring pressor support and stress dose steroids; eventually patient was tapered off of pressors. Patient completed a course of abx. Most Recent sputum cx significant for MRSA + strep agalacticae for which patient was restarted on IV vanco. Patient's vent settings improved however patient was unable to be weaned off of the vent. He received tracheostomy on 01/10/2020 and sedation was discontinued. Patient is stable on assist control (96%) and other vital signs have remained stable. Mental status is improving and patient responds to commands. Tube feeds have been re-stared and electrolytes were repleted. After trach patient spiked a temp to 100.8, thouht to be post-op fever. Patient stable for transfer to med- surg (vent floor). - Current Medication List Current Medications: Active Medications Acetaminophen (Ofirmev Injection -) 1,000 mg IVPB Q6H PRN PRN Reason: FEVER Last Admin: 01/12/20 01:07 Dose: 1,000 mg Documented by: Amino Acids (Prosource No Carb Liquid Pkt) 30 ml NGT DAILY@0800 [facility] Apixaban (Eliquis -) 5 mg PO BID [facility] Ascorbic Acid (Vitamin C -) 1,000 mg PO DAILY LYNETTE Chlorhexidine Gluconate (Peridex -) 15 ml MM BID LYNETTE Vancomycin HCl 1,500 mg/ (Dextrose) 500 mls @ 250 mls/hr IVPB Q24H LYNETTE; Protocol Metoprolol Tartrate (Lopressor -) 25 mg PO BID LYNETTE Last Admin: 01/12/20 01:07 Dose: 25 mg Documented by: Multivitamins/Minerals/Vitamin C (Tab-A-Vit -) 1 tab PO DAILY LYNETTE Pantoprazole Sodium (Protonix Iv) 40 mg IVPUSH DAILY LYNETTE - Objective Vital Signs: Vital Signs Temperature 101.1 F H 01/12/20 00:00 Pulse Rate 107 H 01/12/20 00:00 Respiratory Rate 20 01/12/20 04:35 Blood Pressure 142/87 01/12/20 00:00 O2 Sat by Pulse Oximetry (%) 96 01/12/20 04:35 Cardiovascular: Yes: Regular Rate and Rhythm Respiratory: Yes: Regular, CTA Bilaterally Gastrointestinal: Yes: Normal Bowel Sounds, Soft. No: Tenderness Edema: No Labs: CBC, BMP 01/11/20 06:18 01/11/20 06:18 INR, PTT INR 1.23 (0.83-1.09) H 01/10/20 13:50 Problem List - Problems (1) Acute hypercapnic respiratory failure Assessment/Plan: econdary to acute CHF exacerbation requiring intubation. Patient completed a course of abx. Most Recent sputum cx significant for MRSA + strep agalacticae for which patient was restarted on IV vanco. Patient's vent settings improved however patient was unable to be weaned off of the vent. He received tra cheostomy on 01/10/2020 Code(s): J96.02 - ACUTE RESPIRATORY FAILURE WITH HYPERCAPNIA (2) Congestive heart failure (CHF) Code(s): I50.9 - HEART FAILURE, UNSPECIFIED Qualifiers: Heart failure type: diastolic Heart failure chronicity: acute on chronic Qualified Code(s): I50.33 - Acute on chronic diastolic (congestive) heart failure (3) Pneumonia Assessment/Plan: - sputum culture growing MRSA and strep, WBC 10.3 - started vancomycin (first dose 12/10/2019 at 15:44) - blood cx and UA no growth to date - ID consulted, appreciate recs Microbiology 01/06/20 21:40 Blood - Peripheral Venous Blood Culture - Final NO GROWTH AFTER 5 DAYS INCUBATION 01/06/20 21:30 Blood - Peripheral Venous Blood Culture - Final NO GROWTH AFTER 5 DAYS INCUBATION 01/07/20 12:00 Sputum - Endotrachea Suction/Ventilator Gram Stain - Final 01/07/20 12:00 Sputum - Endotrachea Suction/Ventilator Sputum Culture - Sonal l Mr S Aureus Strep Agalactiae Group B 01/07/20 00:05 Urine - Urine Hilario Urine Culture - Final NO GROWTH OBTAINED 12/27/19 21:00 Blood - Peripheral Venous Blood Culture - Final NO GROWTH AFTER 5 DAYS INCUBATION 12/27/19 21:00 Blood - Peripheral Venous Blood Culture - Final NO GROWTH AFTER 5 DAYS INCUBATION 12/25/19 20:40 Blood - Peripheral Venous Blood Culture - Final NO GROWTH AFTER 5 DAYS INCUBATION 12/25/19 20:30 Blood - Peripheral Venous Blood Culture - Final NO GROWTH AFTER 5 DAYS INCUBATION 12/27/19 14:00 Urine - Urine Hilario Urine Culture - Final NO GROWTH OBTAINED 12/23/19 18:00 Sputum - Endotrachea Suction/Ventilator Gram Stain - Final 12/23/19 18:00 Sputum - Endotrachea Suction/Ventilator Sputum Culture - Final NORMAL RESPIRATORY PEYTON 12/23/19 17:51 Urine - Urine Hilario Urine Culture - Final NO GROWTH OBTAINED 12/16/19 20:13 Blood - Peripheral Venous Blood Culture - Final NO GROWTH AFTER 5 DAYS INCUBATION 12/16/19 19:50 Blood - Peripheral Venous Blood Culture - Final NO GROWTH AFTER 5 DAYS INCUBATION Code(s): J18.9 - PNEUMONIA, UNSPECIFIED ORGANISM Qualifiers: Pneumonia type: due to unspecified organism Laterality: right Lung location: lower lobe of lung Qualified Code(s): J18.9 - Pneumonia, unspecified organism (4) Afib Assessment/Plan: - metoprolol per Dr. Petit - apixaban Code(s): I48.91 - UNSPECIFIED ATRIAL FIBRILLATION Qualifiers: Atrial fibrillation type: paroxysmal Qualified Code(s): I48.0 - Paroxysmal atrial fibrillation
--- NOTE | 2020-01-12 09:39 | PN ---
Progress Note, Physician History of Present Illness: 64 year old male with a past medical history of HTN, HLD, JUANA (not using CPAP), COPD, GERD, systolic congestive heart failure, paroxysmal atrial fibrillation (on Eliquis, s/p cardioversion 11/2016) who presented with 3 weeks of gradual onset anasarca, scrotal swelling and mild shortness of breath worse on exertion. CXR s/f diffused bilat opacities with c/f PNA +/-fluid overload, ?bilateral l ower extremity cellulitis and bilateral hydrocele, and respiratory acidosis is admitted for Acute hypercapneic respiratory failure and Acute CHF exacerbation, intubated for progressive hypercarbic respiratory failure, decreased mental status on BiPAP. 01/11/2020 s/p percutaneous tracheostomy, awake off sedation. Vented on volume assist control with 40% FiO2, PEEP 5. Placed on CPAP/PS. 01/12/2020 Off sedation on vent - Current Medication List Current Medications: Active Medications Acetaminophen (Ofirmev Injection -) 1,000 mg IVPB Q6H PRN PRN Reason: FEVER Last Admin: 01/12/20 01:07 Dose: 1,000 mg Documented by: Amino Acids (Prosource No Carb Liquid Pkt) 30 ml NGT DAILY@0800 [facility] Apixaban (Eliquis -) 5 mg PO BID LYNETTE Ascorbic Acid (Vitamin C -) 1,000 mg PO DAILY LYNETTE Chlorhexidine Gluconate (Peridex -) 15 ml MM BID LYNETTE Vancomycin HCl 1,500 mg/ (Dextrose) 500 mls @ 250 mls/hr IVPB Q24H [facility]; Protocol Metoprolol Tartrate (Lopressor -) 25 mg PO BID [facility] Last Admin: 01/12/20 01:07 Dose: 25 mg Documented by: Multivitamins/Minerals/Vitamin C (Tab-A-Vit -) 1 tab PO DAILY LYNETTE Pantoprazole Sodium (Protonix Iv) 40 mg IVPUSH DAILY [facility] - Objective Vital Signs: Vital Signs Temperature 101.1 F H 01/12/20 00:00 Pulse Rate 107 H 01/12/20 00:00 Respiratory Rate 18 01/12/20 09:00 Blood Pressure 142/87 01/12/20 00:00 O2 Sat by Pulse Oximetry (%) 96 01/12/20 09:00 Constitutional: Yes: No Distress, Calm HENT: Yes: Other (Trach) Cardiovascular: Yes: Regular Rate and Rhythm Respiratory: Yes: Mechanically Ventilated Gastrointestinal: Yes: Normal Bowel Sounds, Soft Genitourinary: Yes: Hilario Present Edema: No Integumentary: Yes: Venous Stasis Changes Labs: CBC, BMP 01/11/20 06:18 01/11/20 06:18 INR, PTT INR 1.23 (0.83-1.09) H 01/10/20 13:50 - ....Imaging Chest X-ray: Pending Problem List - Problems (1) Congestive heart failure (CHF) Code(s): I50.9 - HEART FAILURE, UNSPECIFIED Qualifiers: Heart failure type: diastolic Heart failure chronicity: acute on chronic Qualified Code(s): I50.33 - Acute on chronic diastolic (congestive) heart failure (2) Pneumonia Code(s): J18.9 - PNEUMONIA, UNSPECIFIED ORGANISM Qualifiers: Pneumonia type: due to unspecified organism Laterality: right Lung location: lower lobe of lung Qualified Code(s): J18.9 - Pneumonia, unspecified organism (3) Acute on chronic diastolic (congestive) heart failure Code(s): I50.33 - ACUTE ON CHRONIC DIASTOLIC (CONGESTIVE) HEART FAILURE (4) Acute respiratory failure with hypoxia and hypercarbia Code(s): J96.01 - ACUTE RESPIRATORY FAILURE WITH HYPOXIA; J96.02 - ACUTE RESPIRATORY FAILURE WITH HYPERCAPNIA (5) Atrial fibrillation Code(s): I48.91 - UNSPECIFIED ATRIAL FIBRILLATION Qualifiers: Atrial fibrillation type: paroxysmal Qualified Code(s): I48.0 - Paroxysmal atrial fibrillation (6) COPD (chronic obstructive pulmonary disease) Code(s): J44.9 - CHRONIC OBSTRUCTIVE PULMONARY DISEASE, UNSPECIFIED Qualifiers: COPD type: unspecified COPD Qualified Code(s): J44.9 - Chronic obstructive pulmonary disease, unspecified (7) Hypertension Code(s): I10 - ESSENTIAL (PRIMARY) HYPERTENSION Qualifiers: Hypertension type: essential hypertension Qualified Code(s): I10 - Essential (primary) hypertension (8) Pleural effusion Code(s): J90 - PLEURAL EFFUSION, NOT ELSEWHERE CLASSIFIED Assessment/Plan 10/26/2017 Normal LV size with mild LVH, normal LV fxn, normal RV size and fxn, mild LAE, mild MR, mild-mod TR, mild AL, RVSP 43 mmHg 11/19/2016 Lexiscan Myoview: Apical ischemia, LVEF 45-52% 10/06/2016 Echocardiography revealed mild to moderate LV systolic dysfunction, moderate TR, RVSP of 30-40 mmH 1. Acute on chronic Hypoxic and Hypercapneic Respiratory Failure s/p tracheostomy 2. Acute on chronic LV Diastolic Heart Failure with pleural effusion and pulm HTN 3. Pneumonia, ARDS, (septic shock) 4. Paroxysmal atrial fibrillation with periods of rapid ventricular response post DCCV, [id number] score of 2 5. Obstructive Sleep Apnea/Obesity Hypoventilation Syndrome 6. HTN/HCVD 7. Hypercholesterolemia 8. CAD, angina pectoris 9. Bilateral cellulitis with h/o abscess s/p debridement 10. Bilateral hydrocele PLAN: 1. Low tidal volume ventilation, wean FiO2, PEEP to keep SpO2 >90%. 2. DVT and GI prophylaxis and enteral feeds 3. Diuretics as needed with monitor renal function and electrolytes 4. Resume Lopressor 25 mg BID and Eliquis 5 mg BID 5. Completed abx course per ID 6. Spontaneous breathing trials as tolerated
[2020-01-12] MEDS ORDERED: APIXABAN 5 MG TABLET PO SCH (10:00)
[2020-01-12] MEDS ORDERED: MULTIVITAMINS (DAILY MVI) TABLET (FP) PO SCH (10:00)
[2020-01-12] MEDS ORDERED: ASCORBIC ACID 500 MG TABLET (FP) PO SCH (10:00)
[2020-01-12] MEDS: PANTOPRAZOLE SODIUM 40 MG VIAL IVPUSH SCH ×2 (10:13→11:31)
[2020-01-12] MEDS: AMINO ACIDS/PROTEIN HYDROLYS 30 ML LIQUID.PKT NGT SCH (10:14)
--- NOTE | 2020-01-12 11:56 | PN ---
Progress Note, Physician History of Present Illness: stable off of sedation s/p trach - Current Medication List Current Medications: Active Medications Amino Acids (Prosource No Carb Liquid Pkt) 30 ml NGT DAILY@0800 [facility] Last Admin: 01/12/20 10:14 Dose: 30 ml Documented by: Apixaban (Eliquis -) 5 mg NGT BID [facility] Ascorbic Acid (Vitamin C Oral Solution -) 1,000 mg NGT DAILY [facility] Chlorhexidine Gluconate (Peridex -) 15 ml MM BID [facility] Vancomycin HCl 1,500 mg/ (Dextrose) 500 mls @ 250 mls/hr IVPB Q24H [facility]; Protocol Metoprolol Tartrate (Lopressor -) 25 mg NGT BID [facility] Multivitamins/Minerals (Certavite-Antioxidant Liquid) 15 ml NGT DAILY [facility] Pantoprazole Sodium (Protonix Iv) 40 mg IVPUSH DAILY [facility] Last Admin: 01/12/20 11:31 Dose: 40 mg Documented by: - Objective Vital Signs: Vital Signs Temperature 101.7 F H 01/12/20 11:30 Pulse Rate 103 H 01/12/20 10:21 Respiratory Rate 21 H 01/12/20 10:21 Blood Pressure 131/75 01/12/20 10:21 O2 Sat by Pulse Oximetry (%) 96 01/12/20 09:00 Constitutional: Yes: No Distress, Calm Cardiovascular: Yes: S1, S2 Respiratory: Yes: Mechanically Ventilated, Other (s/p trach) Gastrointestinal: Yes: Normal Bowel Sounds, Soft Musculoskeletal: Yes: WNL Extremities: Yes: WNL Neurological: Yes: Alert, Other Labs: CBC, BMP 01/11/20 06:18 01/11/20 06:18 INR, PTT INR 1.23 (0.83-1.09) H 01/10/20 13:50 Assessment/Plan 64 year old male with a past medical history of HTN, HLD, JUANA (not using CPAP), COPD, GERD, systolic congestive heart failure, paroxysmal atrial fibrillation (on Eliquis, s/p cardioversion 11/2016) who presented with 3 weeks of gradual onset anasarca, scrotal swelling and mild shortness of breath worse on exertion. He as found to have a PNA, on clinical exam signs of fluid overload, ?bilateral lower extremity cellulitis and bilateral hydrocele. 1. Acute Respiratory Failure 2. Fluid Overload/ 3.Bilateral Lower Extremity Cellulitis 4. Hydrocele 5. Hypertension 6. Atrial Fibrillation 7. Elevated Troponin 8. Rule Out COVID 9 pna plan abx vent managent trach care rest as per icu follow ruth alvarado
[2020-01-12] MEDS ORDERED: PT OWN MED DRAWER 7, Y5N ONE ×4 (12:37→22:20)
[2020-01-12 13:29] LABS: BASO % 1.4 % (0-2.0); EOS % 3.8 % (0-4.5); HEMOGLOBIN 13.4 GM/dL (11.7-16.9); LYMPH % 8.2 % (8-40); MCH 23.9 pg (25.7-33.7); MCHC 29.2 g/dl (32.0-35.9); MEAN CELL VOLUME 81.7 fl (80-96); MEAN PLT VOLUME 10.1 fl (7.5-11.1); MONO % 8.6 % (3.8-10.2); PLATELET COUNT 81 K/MM3 (134-434); RBC 5.63 M/mm3 (4.00-5.60); WHITE BLOOD COUNT 9.8 K/mm3 (4.0-10.0)
[2020-01-12 13:49] LABS: EPI CELLS >36 /uL (0-25.1); HYALINE CASTS 13 /uL (0-3.1); PH,URINE 5.5 (5.0-8.0); URINE APPEARANCE TURBID; URINE BILIRUBIN 2+ (NEGATIVE); URINE COLOR DK YELLOW; URINE GLUCOSE (UA) NEGATIVE (NEGATIVE); URINE KETONE NEGATIVE (NEGATIVE); URINE LEUK ESTERASE 1+ (NEGATIVE); URINE NITRITE POSITIVE (NEGATIVE); URINE PROTEIN 1+ (NEGATIVE); URINE RBC 6353 /uL (0-23.9); URINE UROBILINOGEN 4.0 E.U/dl mg/dL (0.2-1.0); URINE WBC 133 /uL (0-25.8)
[2020-01-12 14:03] LABS: ALBUMIN 2.2 g/dl (3.4-5.0); BLOOD UREA NITROGEN 21.4 mg/dL (7-18); CALCIUM 8.5 mg/dL (8.5-10.1); CREATININE 0.5 mg/dL (0.55-1.3); POTASSIUM 3.3 mmol/L (3.5-5.1); TOT PROT 5.6 g/dl (6.4-8.2)
[2020-01-12 14:11] LABS: URINE BACTERIA 5.7 /uL (0-1359)
[2020-01-12] MEDS ORDERED: POTASSIUM CHLORIDE ORAL LIQUID 20 MEQ/15 ML PO ONE (14:48)
--- NOTE | 2020-01-12 14:51 | PN ---
Progress Note, Physician History of Present Illness: Pt seen and examined at bedside. He is still lethragic. He is now on the vent floor. He in on vent via trache. - Current Medication List Current Medications: Active Medications Amino Acids (Prosource No Carb Liquid Pkt) 30 ml NGT DAILY@0800 [facility] Last Admin: 01/12/20 10:14 Dose: 30 ml Documented by: Apixaban (Eliquis -) 5 mg NGT BID [facility] Ascorbic Acid (Vitamin C Oral Solution -) 1,000 mg NGT DAILY [facility] Chlorhexidine Gluconate (Peridex -) 15 ml MM BID [facility] Last Admin: 01/12/20 13:30 Dose: 15 ml Documented by: Vancomycin HCl 1,500 mg/ (Dextrose) 500 mls @ 250 mls/hr IVPB Q24H [facility]; Protocol Potassium Chloride (Potassium Chloride 10 Meq Premix Ivpb -) 10 meq in 100 mls @ 100 mls/hr IVPB Q60M [facility] Stop: 01/12/20 17:59 Metoprolol Tartrate (Lopressor -) 25 mg NGT BID [facility] Multivitamins/Minerals (Certavite-Antioxidant Liquid) 15 ml NGT DAILY [facility] Pantoprazole Sodium (Protonix Iv) 40 mg IVPUSH DAILY [facility] Last Admin: 01/12/20 11:31 Dose: 40 mg Documented by: Potassium Chloride (Potassium Chloride Oral Liquid) 40 meq PO ONCE ONE Stop: 01/12/20 14:49 - Objective Vital Signs: Vital Signs Temperature 101.4 F H 01/12/20 13:50 Pulse Rate 95 H 01/12/20 13:50 Respiratory Rate 26 H 01/12/20 13:50 Blood Pressure 128/76 01/12/20 13:50 O2 Sat by Pulse Oximetry (%) 95 01/12/20 12:49 Constitutional: Yes: Calm Eyes: Yes: Conjunctiva Clear HENT: Yes: Atraumatic Cardiovascular: Yes: S1, S2 Respiratory: Yes: Mechanically Ventilated Gastrointestinal: Yes: Soft Genitourinary: Yes: Incontinence Musculoskeletal: Yes: Muscle Weakness Edema: No Integumentary: Yes: Venous Stasis Changes Neurological: Yes: Lethargy Labs: CBC, BMP 01/12/20 12:43 01/12/20 12:43 INR, PTT INR 1.23 (0.83-1.09) H 01/10/20 13:50 Problem List - Problems (1) Anasarca Code(s): R60.1 - GENERALIZED EDEMA (2) Congestive heart failure (CHF) Code(s): I50.9 - HEART FAILURE, UNSPECIFIED Qualifiers: Heart failure type: diastolic Heart failure chronicity: acute on chronic Qualified Code(s): I50.33 - Acute on chronic diastolic (congestive) heart failure (3) Acute kidney injury Code(s): N17.9 - ACUTE KIDNEY FAILURE, UNSPECIFIED Assessment/Plan Current Medications Generic Name Dose Route Start Last Admin Trade Name Freq PRN Reason Stop Dose Admin Amino Acids 30 ml 01/12/20 08:00 01/12/20 10:14 Prosource No Carb Liquid Pkt NGT 30 ml DAILY@0800 [facility] Administration Apixaban 5 mg 01/12/20 11:30 Eliquis - NGT BID [facility] Ascorbic Acid 1,000 mg 01/12/20 11:30 Vitamin C Oral Solution - NGT DAILY [facility] Chlorhexidine Gluconate 15 ml 01/12/20 10:00 01/12/20 13:30 Peridex - MM 15 ml BID [facility] Administration Vancomycin HCl 1,500 mg/ 500 mls @ 250 mls/hr 01/12/20 16:00 Dextrose IVPB Q24H [facility] Protocol Potassium Chloride 10 meq in 100 mls @ 100 mls/hr 01/12/20 15:00 Potassium Chloride 10 Meq Premix Ivpb - IVPB 01/12/20 17:59 Q60M [facility] Metoprolol Tartrate 25 mg 01/12/20 11:26 Lopressor - NGT BID [facility] Multivitamins/Minerals 15 ml 01/12/20 11:32 Certavite-Antioxidant Liquid NGT DAILY [facility] Pantoprazole Sodium 40 mg 01/12/20 10:00 01/12/20 11:31 Protonix Iv IVPUSH 40 mg DAILY [facility] Administration Potassium Chloride 40 meq 01/12/20 14:48 Potassium Chloride Oral Liquid PO 01/12/20 14:49 ONCE ONE Impression 1. MONIE 2. CHF acute 3. acute resp failure requiring intubation 4. atrial fibrillation 5. hx of htn 6. obesity 7. chronic smoker 8. hypokalemia Plan - renal function stable - cont vent support - replace potassium - repeat labs in am - lasix prn - monitor sodium levels
[2020-01-12] MEDS: KCL 10 MEQ IVPB 10 MEQ/100 ML INFUS.BAG IVPB SCH ×2 (15:50→22:31)
[2020-01-12] MEDS ORDERED: ACETAMINOPHEN 650 MG/20.3 ML ORAL SOLUTION (CUPS) NGT ONE (18:20)
[2020-01-12] MEDS: VANCOMYCIN HCL 1,500 MG in DEXTROSE 5%-WATER - 500 ML IVPB SCH (19:03)
[2020-01-12] MEDS: APIXABAN 5 MG TABLET NGT SCH (22:31)
[2020-01-12] MEDS: METOPROLOL TARTRATE 25 MG TABLET (FP) NGT SCH (22:31)
[2020-01-13] MEDS: KCL 10 MEQ IVPB 10 MEQ/100 ML INFUS.BAG IVPB SCH (00:23)
--- NOTE | 2020-01-13 08:00 | PN ---
Progress Note, Physician History of Present Illness: pulmonary more awake,on vent support ac mode,febrile - Current Medication List Current Medications: Active Medications Amino Acids (Prosource No Carb Liquid Pkt) 30 ml NGT DAILY@0800 [facility] Last Admin: 01/12/20 10:14 Dose: 30 ml Documented by: Apixaban (Eliquis -) 5 mg NGT BID [facility] Last Admin: 01/12/20 22:31 Dose: 5 mg Documented by: Ascorbic Acid (Vitamin C Oral Solution -) 1,000 mg NGT DAILY [facility] Chlorhexidine Gluconate (Peridex -) 15 ml MM BID [facility] Last Admin: 01/12/20 22:39 Dose: 15 ml Documented by: Vancomycin HCl 1,500 mg/ (Dextrose) 500 mls @ 250 mls/hr IVPB Q24H [facility]; Protocol Last Admin: 01/12/20 19:03 Dose: 250 mls/hr Documented by: Metoprolol Tartrate (Lopressor -) 25 mg NGT BID [facility] Last Admin: 01/12/20 22:31 Dose: 25 mg Documented by: Multivitamins/Minerals (Certavite-Antioxidant Liquid) 15 ml NGT DAILY [facility] Pantoprazole Sodium (Protonix Iv) 40 mg IVPUSH DAILY [facility] Last Admin: 01/12/20 11:31 Dose: 40 mg Documented by: - Objective Vital Signs: Vital Signs Temperature 98.0 F 01/13/20 06:00 Pulse Rate 94 H 01/13/20 06:00 Respiratory Rate 22 H 01/13/20 06:00 Blood Pressure 125/80 01/13/20 06:00 O2 Sat by Pulse Oximetry (%) 96 01/13/20 04:46 Constitutional: Yes: Well Nourished, Calm Eyes: Yes: WNL HENT: Yes: WNL Neck: Yes: Supple (trach) Cardiovascular: Yes: Regular Rate and Rhythm, S1, S2 Respiratory: Yes: Rhonchi (few rhonchi) Gastrointestinal: Yes: Normal Bowel Sounds, Soft Extremities: Yes: WNL Edema: No Labs: CBC, BMP 01/12/20 12:4 Assessment/Plan ASSESSMENT AND PLAN: Acute on Chronic Hypoxic and Hypercapneic Respiratory Failure Pneumonia ARDS Septic Shock Acute on Chronic Diastolic Heart Failure Pulmonary HTN Paroxysmal Atrial Fibrillation CAD Acute Kidney Injury Likely COPD JUANA/OHS HTN Hypercholesterolemia - antibiotics per ID - rate control - continue anticoagulation - spontaneous breathing trials as tolerated - titrate FiO2, PEEP to keep SpO2 >90% - monitor urine output, creatinine - enteral feeds - DVT/GI prophylaxis DR MELTON
[2020-01-13] MEDS: AMINO ACIDS/PROTEIN HYDROLYS 30 ML LIQUID.PKT NGT SCH (08:54)
[2020-01-13 09:32] LABS: BASO % 1.1 % (0-2.0); HEMATOCRIT 44.3 % (35.4-49); HEMOGLOBIN 13.3 GM/dL (11.7-16.9); LYMPH % 12.5 % (8-40); MCH 24.6 pg (25.7-33.7); MEAN CELL VOLUME 81.8 fl (80-96); MEAN PLT VOLUME 9.9 fl (7.5-11.1); MONO % 10.3 % (3.8-10.2); NEUT % 71.1 % (42.8-82.8); PLATELET COUNT 79 K/MM3 (134-434); RBC 5.41 M/mm3 (4.00-5.60); RDW 23.1 % (11.9-15.9)
[2020-01-13 10:09] LABS: ALBUMIN 2.1 g/dl (3.4-5.0); BLOOD UREA NITROGEN 22.1 mg/dL (7-18); CALCIUM 8.7 mg/dL (8.5-10.1); CREATININE 0.4 mg/dL (0.55-1.3); POTASSIUM 3.5 mmol/L (3.5-5.1)
[2020-01-13 10:10] LABS: BILIRUBIN,TOTAL 2.4 mg/dL (0.2-1); TOT PROT 5.5 g/dl (6.4-8.2)
[2020-01-13] MEDS ORDERED: PT OWN MED DRAWER 7, Y5N ONE (10:23)
[2020-01-13] MEDS: APIXABAN 5 MG TABLET NGT SCH ×2 (10:25→21:47)
[2020-01-13] MEDS: CHLORHEXIDINE GLUCONATE 0.12% 15ML CUP MM SCH ×2 (10:25→21:47)
[2020-01-13] MEDS: PANTOPRAZOLE SODIUM 40 MG VIAL IVPUSH SCH ×3 (10:25→18:13)
[2020-01-13] MEDS: ASCORBIC ACID 500 MG/5 ML UNIT DOSE CUP NGT SCH (10:26)
[2020-01-13] MEDS: MULTIVIT-MINERALS ORAL LIQUID NGT SCH (10:26)
[2020-01-13] MEDS: METOPROLOL TARTRATE 25 MG TABLET (FP) NGT SCH ×2 (10:26→21:47)
--- NOTE | 2020-01-13 10:27 | PN ---
Progress Note (short form) - Note Progress Note: 4 year old male with a past medical history of HTN, HLD, JUANA (not using CPAP), COPD, GERD, systolic congestive heart failure, paroxysmal atrial fibrillation (on Eliquis, s/p cardioversion 11/2016) who presented with 3 weeks of gradual onset anasarca, scrotal swelling and mild shortness of breath worse on exertion. CXR s/f diffused bilat opacities with c/f PNA +/-fluid overload, ?bilateral lower extremity cellulitis and bilateral hydrocele, and respiratory acidosis is admitted for Acute hypercapneic respiratory failure and Acute CHF exacerbation, intubated for progressive hypercarbic respiratory failure, decreased mental status on BiPAP. 01/11/2020 s/p percutaneous tracheostomy, awake off sedation. Vented on volume assist control with 40% FiO2, PEEP 5. Placed on CPAP/PS. 01/12/2020 Off sedation on vent 01/12: no acute cardiac events; had elevated temp Vital Signs Temperature 98.0 F 01/13/20 06:00 Pulse Rate 94 H 01/13/20 06:00 Respiratory Rate 22 H 01/13/20 06:00 Blood Pressure 125/80 01/13/20 06:00 O2 Sat by Pulse Oximetry (%) 96 01/13/20 04:46 Trache Cardiovascular: Yes: Regular Rate and Rhythm Respiratory: Yes: Mechanically Ventilated Gastrointestinal: Yes: Normal Bowel Sounds, Soft Edema: No Integumentary: Yes: Venous Stasis Changes Labs: CBC, BMP 01/13/20 08:20 01/13/20 08:20 Active Medications Amino Acids (Prosource No Carb Liquid Pkt) 30 ml NGT DAILY@0800 [facility] Last Admin: 01/13/20 08:54 Dose: 30 ml Documented by: Apixaban (Eliquis -) 5 mg NGT BID [facility] Last Admin: 01/13/20 10:25 Dose: 5 mg Documented by: Ascorbic Acid (Vitamin C Oral Solution -) 1,000 mg NGT DAILY [facility] Last Admin: 01/13/20 10:26 Dose: 1,000 mg Documented by: Chlorhexidine Gluconate (Peridex -) 15 ml MM BID [facility] Last Admin: 01/13/20 10:25 Dose: 15 ml Documented by: Vancomycin HCl 1,500 mg/ (Dextrose) 500 mls @ 250 mls/hr IVPB Q24H [facility]; Protocol Last Admin: 01/12/20 19:03 Dose: 250 mls/hr Documented by: Metoprolol Tartrate (Lopressor -) 25 mg NGT BID [facility] Last Admin: 01/13/20 10:26 Dose: 25 mg Documented by: Multivitamins/Minerals (Certavite-Antioxidant Liquid) 15 ml NGT DAILY [facility] Last Admin: 01/13/20 10:26 Dose: 15 ml Documented by: Pantoprazole Sodium (Protonix Iv) 40 mg IVPUSH DAILY [facility] Last Admin: 01/13/20 10:25 Dose: 40 mg Documented by: - ....Imaging Chest X-ray: Pending Problem List - Problems (1) Congestive heart failure (CHF) Code(s): I50.9 - HEART FAILURE, UNSPECIFIED Qualifiers: Heart failure type: diastolic Heart failure chronicity: acute on chronic Qualified Code(s): I50.33 - Acute on chronic diastolic (congestive) heart failure (2) Pneumonia Code(s): J18.9 - PNEUMONIA, UNSPECIFIED ORGANISM Qualifiers: Pneumonia type: due to unspecified organism Laterality: right Lung location: lower lobe of lung Qualified Code(s): J18.9 - Pneumonia, unspecified organism (3) Acute on chronic diastolic (congestive) heart failure Code(s): I50.33 - ACUTE ON CHRONIC DIASTOLIC (CONGESTIVE) HEART FAILURE (4) Acute respiratory failure with hypoxia and hypercarbia Code(s): J96.01 - ACUTE RESPIRATORY FAILURE WITH HYPOXIA; J96.02 - ACUTE RESPIRATORY FAILURE WITH HYPERCAPNIA (5) Atrial fibrillation Code(s): I48.91 - UNSPECIFIED ATRIAL FIBRILLATION Qualifiers: Atrial fibrillation type: paroxysmal Qualified Code(s): I48.0 - Paroxysmal atrial fibrillation (6) COPD (chronic obstructive pulmonary disease) Code(s): J44.9 - CHRONIC OBSTRUCTIVE PULMONARY DISEASE, UNSPECIFIED Qualifiers: COPD type: unspecified COPD Qualified Code(s): J44.9 - Chronic obstructive pulmonary disease, unspecified (7) Hypertension Code(s): I10 - ESSENTIAL (PRIMARY) HYPERTENSION Qualifiers: Hypertension type: essential hypertension Qualified Code(s): I10 - Essential (primary) hypertension (8) Pleural effusion Code(s): J90 - PLEURAL EFFUSION, NOT ELSEWHERE CLASSIFIED Assessment/Plan 10/26/2017 Normal LV size with mild LVH, normal LV fxn, normal RV size and fxn, mild LAE, mild MR, mild-mod TR, mild AZ, RVSP 43 mmHg 11/19/2016 Lexiscan Myoview: Apical ischemia, LVEF 45-52% 10/06/2016 Echocardiography revealed mild to moderate LV systolic dysfunction, moderate TR, RVSP of 30-40 mmH 1. Acute on chronic Hypoxic and Hypercapneic Respiratory Failure s/p tracheostomy 2. Acute on chronic LV Diastolic Heart Failure with pleural effusion and pulm HTN 3. Pneumonia, ARDS, (septic shock) 4. Paroxysmal atrial fibrillation with periods of rapid ventricular response post DCCV, [id number] score of 2 5. Obstructive Sleep Apnea/Obesity Hypoventilation Syndrome 6. HTN/HCVD 7. Hypercholesterolemia 8. CAD, angina pectoris 9. Bilateral cellulitis with h/o abscess s/p debridement 10. Bilateral hydrocele PLAN: Cardiacwise same: 1. Diuretics as needed with monitor renal function and electrolytes 2. Cont Lopressor 25 mg BID and Eliquis 5 mg BID 3. Vent and other issues per primary team
[2020-01-13 10:39] LABS: ANISOCYTOSIS 1+; MACROCYTOSIS 1+; PLATELET ESTIMATE DECREASED
--- NOTE | 2020-01-13 11:56 | PN ---
Progress Note, Physician History of Present Illness: still requiring vent s/p trach rt side moving left side moving more sleepy still spiking fever - Current Medication List Current Medications: Active Medications Amino Acids (Prosource No Carb Liquid Pkt) 30 ml NGT DAILY@0800 [facility] Last Admin: 01/13/20 08:54 Dose: 30 ml Documented by: Apixaban (Eliquis -) 5 mg NGT BID [facility] Last Admin: 01/13/20 10:25 Dose: 5 mg Documented by: Ascorbic Acid (Vitamin C Oral Solution -) 1,000 mg NGT DAILY [facility] Last Admin: 01/13/20 10:26 Dose: 1,000 mg Documented by: Chlorhexidine Gluconate (Peridex -) 15 ml MM BID [facility] Last Admin: 01/13/20 10:25 Dose: 15 ml Documented by: Vancomycin HCl 1,500 mg/ (Dextrose) 500 mls @ 250 mls/hr IVPB Q24H [facility]; Protocol Last Admin: 01/12/20 19:03 Dose: 250 mls/hr Documented by: Metoprolol Tartrate (Lopressor -) 25 mg NGT BID [facility] Last Admin: 01/13/20 10:26 Dose: 25 mg Documented by: Multivitamins/Minerals (Certavite-Antioxidant Liquid) 15 ml NGT DAILY [facility] Last Admin: 01/13/20 10:26 Dose: 15 ml Documented by: Pantoprazole Sodium (Protonix Iv) 40 mg IVPUSH DAILY [facility] Last Admin: 01/13/20 10:36 Dose: Not Given Documented by: - Objective Vital Signs: Vital Signs Temperature 100.1 F H 01/13/20 10:20 Pulse Rate 96 H 01/13/20 10:20 Respiratory Rate 25 H 01/13/20 10:20 Blood Pressure 139/75 01/13/20 10:20 O2 Sat by Pulse Oximetry (%) 96 01/13/20 08:00 Constitutional: Yes: No Distress, Calm Cardiovascular: Yes: S1, S2 Respiratory: Yes: Other Gastrointestinal: Yes: Normal Bowel Sounds, Soft Musculoskeletal: Yes: WNL Extremities: Yes: WNL Neurological: Yes: Confusion, Other Labs: CBC, BMP 01/13/20 08:20 01/13/20 08:20 INR, PTT INR 1.23 (0.83-1.09) H 01/10/20 13:50 - ....Imaging Chest X-ray: Report Reviewed, Image Reviewed Assessment/Plan 64 year old male with a past medical history of HTN, HLD, JUANA (not using CPAP), COPD, GERD, systolic congestive heart failure, paroxysmal atrial fibrillation (on Eliquis, s/p cardioversion 11/2016) who presented with 3 weeks of gradual onset anasarca, scrotal swelling and mild shortness of breath worse on exertion. He as found to have a PNA, on clinical exam signs of fluid overload, ?bilateral lower extremity cellulitis and bilateral hydrocele. 1. Acute Respiratory Failure 2. Fluid Overload/ 3.Bilateral Lower Extremity Cellulitis 4. Hydrocele 5. Hypertension 6. Atrial Fibrillation 7. Elevated Troponin 8. Rule Out COVID 9 pna plan continue current mgmt abx will get a vanco trough monitor fever asp precautions if spikes send blood cx will add zosyn if he spikes
--- NOTE | 2020-01-13 12:14 | PN ---
Progress Note, Physician - Current Medication List Current Medications: Active Medications Amino Acids (Prosource No Carb Liquid Pkt) 30 ml NGT DAILY@0800 [facility] Last Admin: 01/13/20 08:54 Dose: 30 ml Documented by: Apixaban (Eliquis -) 5 mg NGT BID [facility] Last Admin: 01/13/20 10:25 Dose: 5 mg Documented by: Ascorbic Acid (Vitamin C Oral Solution -) 1,000 mg NGT DAILY [facility] Last Admin: 01/13/20 10:26 Dose: 1,000 mg Documented by: Chlorhexidine Gluconate (Peridex -) 15 ml MM BID [facility] Last Admin: 01/13/20 10:25 Dose: 15 ml Documented by: Vancomycin HCl 1,500 mg/ (Dextrose) 500 mls @ 250 mls/hr IVPB Q24H [facility]; Protocol Last Admin: 01/12/20 19:03 Dose: 250 mls/hr Documented by: Metoprolol Tartrate (Lopressor -) 25 mg NGT BID [facility] Last Admin: 01/13/20 10:26 Dose: 25 mg Documented by: Multivitamins/Minerals (Certavite-Antioxidant Liquid) 15 ml NGT DAILY [facility] Last Admin: 01/13/20 10:26 Dose: 15 ml Documented by: Pantoprazole Sodium (Protonix Iv) 40 mg IVPUSH DAILY [facility] Last Admin: 01/13/20 10:36 Dose: Not Given Documented by: - Objective Vital Signs: Vital Signs Temperature 100.1 F H 01/13/20 10:20 Pulse Rate 96 H 01/13/20 10:20 Respiratory Rate 25 H 01/13/20 10:20 Blood Pressure 139/75 01/13/20 10:20 O2 Sat by Pulse Oximetry (%) 96 01/13/20 08:00 Cardiovascular: Yes: S1, S2 Respiratory: Yes: Mechanically Ventilated Gastrointestinal: Yes: Normal Bowel Sounds, Soft Labs: CBC, BMP 01/13/20 08:20 01/13/20 08:20 INR, PTT INR 1.23 (0.83-1.09) H 01/10/20 13:50 Problem List - Problems (1) Acute hypercapnic respiratory failure Assessment/Plan: econdary to acute CHF exacerbation requiring intubation. Patient completed a course of abx. Most Recent sputum cx significant for MRSA + strep agalacticae for which patient was restarted on IV vanco. Patient's vent settings improved however patient was unable to be weaned off of the vent. He received tracheostomy on 01/10/2020 Code(s): J96.02 - ACUTE RESPIRATORY FAILURE WITH HYPERCAPNIA (2) Congestive heart failure (CHF) Code(s): I50.9 - HEART FAILURE, UNSPECIFIED Qualifiers: Heart failure type: diastolic Heart failure chronicity: acute on chronic Qualified Code(s): I50.33 - Acute on chronic diastolic (congestive) heart failure (3) Pneumonia Assessment/Plan: - sputum culture growing MRSA and strep, WBC 10.3 - started vancomycin (first dose 12/10/2019 at 15:44) - blood cx and UA no growth to date - ID consulted, mitzy recs Microbiology 01/06/20 21:40 Blood - Peripheral Venous Blood Culture - Final NO GROWTH AFTER 5 DAYS INCUBATION 01/06/20 21:30 Blood - Peripheral Venous Blood Culture - Final NO GROWTH AFTER 5 DAYS INCUBATION 01/07/20 12:00 Sputum - Endotrachea Suction/Ventilator Gram Stain - Final 01/07/20 12:00 Sputum - Endotrachea Suction/Ventilator Sputum Culture - Final Mr S Aureus Strep Agalactiae Group B 01/07/20 00:05 Urine - Urine Hilario Urine Culture - Final NO GROWTH OBTAINED 12/27/19 21:00 Blood - Peripheral Venous Blood Culture - Final NO GROWTH AFTER 5 DAYS INCUBATION 12/27/19 21:00 Blood - Peripheral Venous Blood Culture - Final NO GROWTH AFTER 5 DAYS INCUBATION 12/25/19 20:40 Blood - Peripheral Venous Blood Culture - Final NO GROWTH AFTER 5 DAYS INCUBATION 12/25/19 20:30 Blood - Peripheral Venous Blood Culture - Final NO GROWTH AFTER 5 DAYS INCUBATION 12/27/19 14:00 Urine - Urine Hilario Urine Culture - Final NO GROWTH OBTAINED 12/23/19 18:00 Sputum - Endotrachea Suction/Ventilator Gram Stain - Final 12/23/19 18:00 Sputum - Endotrachea Suction/Ventilator Sputum Culture - Final NORMAL RESPIRATORY PEYTON 12/23/19 17:51 Urine - Urine Hilario Urine Culture - Final NO GROWTH OBTAINED 12/16/19 20:13 Blood - Peripheral Venous Blood Culture - Final NO GROWTH AFTER 5 DAYS INCUBATION 12/16/19 19:50 Blood - Peripheral Venous Blood Culture - Final NO GROWTH AFTER 5 DAYS INCUBATION Code(s): J18.9 - PNEUMONIA, UNSPECIFIED ORGANISM Qualifiers: Pneumonia type: due to unspecified organism Laterality: right Lung location: lower lobe of lung Qualified Code(s): J18.9 - Pneumonia, unspecified organism (4) Afib Assessment/Plan: - metoprolol per Dr. Petit - apixaban Code(s): I48.91 - UNSPECIFIED ATRIAL FIBRILLATION Qualifiers: Atrial fibrillation type: paroxysmal Qualified Code(s): I48.0 - Paroxysmal atrial fibrillation
--- NOTE | 2020-01-13 13:30 | PN ---
Progress Note, Physician History of Present Illness: Pt seen and examined at bedside. He is more awake today. - Current Medication List Current Medications: Active Medications Amino Acids (Prosource No Carb Liquid Pkt) 30 ml NGT DAILY@0800 [facility] BEDS AT [facility] Last Admin: 01/13/20 08:54 Dose: 30 ml Documented by: Apixaban (Eliquis -) 5 mg NGT BID [facility] 234 BEDS AT [facility] Last Admin: 01/13/20 10:25 Dose: 5 mg Documented by: Ascorbic Acid (Vitamin C Oral Solution -) 1,000 mg NGT DAILY [facility] Last Admin: 01/13/20 10:26 Dose: 1,000 mg Documented by: Chlorhexidine Gluconate (Peridex -) 15 ml MM BID [facility] Last Admin: 01/13/20 10:25 Dose: 15 ml Documented by: Vancomycin HCl 1,500 mg/ (Dextrose) 500 mls @ 250 mls/hr IVPB Q24H [facility] 234 BEDS AT [facility]; Protocol Last Admin: 01/12/20 19:03 Dose: 250 mls/hr Documented by: Metoprolol Tartrate (Lopressor -) 25 mg NGT BID [facility] 234 B[facility]S AT [facility] Last Admin: 01/13/20 10:26 Dose: 25 mg Documented by: Multivitamins/Minerals (Certavite-Antioxidant Liquid) 15 ml NGT DAILY [facility] 234 BEDS AT [facility] Last Admin: 01/13/20 10:26 Dose: 15 ml Documented by: Pantoprazole Sodium (Protonix Iv) 40 mg IVPUSH DAILY [facility] 234 B[facility]S AT [facility] Last Admin: 01/13/20 10:36 Dose: Not Given Documented by: - Objective Vital Signs: Vital Signs Temperature 100.1 F H 01/13/20 10:20 Pulse Rate 96 H 01/13/20 10:20 Respiratory Rate 25 H 01/13/20 10:20 Blood Pressure 139/75 01/13/20 10:20 O2 Sat by Pulse Oximetry (%) 96 01/13/20 08:00 Constitutional: Yes: Calm Eyes: Yes: Conjunctiva Clear HENT: Yes: Atraumatic Neck: Yes: Other (trache) Cardiovascular: Yes: S1, S2 Respiratory: Yes: Mechanically Ventilated Gastrointestinal: Yes: Soft, Abdomen, Obese Genitourinary: Yes: Incontinence Musculoskeletal: Yes: Muscle Weakness Edema: Yes Edema: LLE: Trace, RLE: Trace Integumentary: Yes: Venous Stasis Changes Neurological: Yes: Other (awake) Labs: CBC, BMP 01/13/20 08:20 01/13/20 08:20 INR, PTT INR 1.23 (0.83-1.09) H 01/10/20 13:50 Problem List - Problems (1) Anasarca Code(s): R60.1 - GENERALIZED EDEMA (2) Congestive heart failure (CHF) Code(s): I50.9 - HEART FAILURE, UNSPECIFIED Qualifiers: Heart failure type: diastolic Heart failure chronicity: acute on chronic Qualified Code(s): I50.33 - Acute on chronic diastolic (congestive) heart fail ure (3) Acute kidney injury Code(s): N17.9 - ACUTE KIDNEY FAILURE, UNSPECIFIED Assessment/Plan Current Medications Generic Name Dose Route Start Last Admin Trade Name Taylor PRN Reason Stop Dose Admin Amino Acids 30 ml 01/12/20 08:00 01/13/20 08:54 Prosource No Carb Liquid Pkt NGT 30 ml DAILY@0800 [facility] Administration Apixaban 5 mg 01/12/20 11:30 01/13/20 10:25 Eliquis - NGT 5 mg BID [facility] Administration Ascorbic Acid 1,000 mg 01/12/20 11:30 01/13/20 10:26 Vitamin C Oral Solution - NGT 1,000 mg DAILY [facility] Administration Chlorhexidine Gluconate 15 ml 01/12/20 10:00 01/13/20 10:25 Peridex - MM 15 ml BID [facility] Administration Vancomycin HCl 1,500 mg/ 500 mls @ 250 mls/hr 01/12/20 16:00 01/12/20 19:03 Dextrose IVPB 250 mls/hr Q24H [facility] Administration Protocol Metoprolol Tartrate 25 mg 01/12/20 11:26 01/13/20 10:26 Lopressor - NGT 25 mg BID [facility] Administration Multivitamins/Minerals 15 ml 01/12/20 11:32 01/13/20 10:26 Certavite-Antioxidant Liquid NGT 15 ml DAILY [facility] Administration Pantoprazole Sodium 40 mg 01/12/20 10:00 01/13/20 10:36 Protonix Iv IVPUSH Not Given DAILY [facility] Impression 1. MONIE 2. CHF acute 3. acute resp failure requiring intubation 4. atrial fibrillation 5. hx of htn 6. obesity 7. chronic smoker 8. hypokalemia Plan - renal function is stable - will give a dose of lasix and potassium today - cont vent support - monitor volume status - will follow prn
[2020-01-13] MEDS ORDERED: FUROSEMIDE 40 MG/5 ML UNIT-DOSE CUP NGT ONE (13:45)
[2020-01-13] MEDS ORDERED: POTASSIUM CHLORIDE ORAL LIQUID 20 MEQ/15 ML NGT ONE (13:45)
[2020-01-13] MEDS: VANCOMYCIN HCL 1,500 MG in DEXTROSE 5%-WATER - 500 ML IVPB SCH (18:14)
--- NOTE | 2020-01-14 07:07 | PN ---
Progress Note, Physician History of Present Illness: pulmonary alert,comfortable on vent support ac mode - Current Medication List Current Medications: Active Medications Amino Acids (Prosource No Carb Liquid Pkt) 30 ml NGT DAILY@0800 [facility] Last Admin: 01/13/20 08:54 Dose: 30 ml Documented by: Apixaban (Eliquis -) 5 mg NGT BID [facility] Last Admin: 01/13/20 21:47 Dose: 5 mg Documented by: Ascorbic Acid (Vitamin C Oral Solution -) 1,000 mg NGT DAILY [facility] Last Admin: 01/13/20 10:26 Dose: 1,000 mg Documented by: Chlorhexidine Gluconate (Peridex -) 15 ml MM BID [facility] Last Admin: 01/13/20 21:47 Dose: 15 ml Documented by: Vancomycin HCl 1,500 mg/ (Dextrose) 500 mls @ 250 mls/hr IVPB Q24H [facility]; Protocol Last Admin: 01/13/20 18:14 Dose: 250 mls/hr Documented by: Metoprolol Tartrate (Lopressor -) 25 mg NGT BID [facility] Last Admin: 01/13/20 21:47 Dose: 25 mg Documented by: Multivitamins/Minerals (Certavite-Antioxidant Liquid) 15 ml NGT DAILY [facility] Last Admin: 01/13/20 10:26 Dose: 15 ml Documented by: Pantoprazole Sodium (Protonix Iv) 40 mg IVPUSH DAILY [facility] Last Admin: 01/13/20 18:13 Dose: 40 mg Documented by: - Objective Vital Signs: Vital Signs Temperature 99.5 F 01/14/20 06:00 Pulse Rate 104 H 01/14/20 06:00 Respiratory Rate 20 01/14/20 06:00 Blood Pressure 133/89 01/14/20 06:00 O2 Sat by Pulse Oximetry (%) 96 01/14/20 04:47 Constitutional: Yes: Well Nourished, Calm Eyes: Yes: WNL HENT: Yes: WNL Neck: Yes: Supple (trach) Cardiovascular: Yes: Pulse Irregular, S1, S2 Respiratory: Yes: Rhonchi (few rhonchi) Gastrointestinal: Yes: Normal Bowel Sounds, Soft Extremities: Yes: WNL Edema: No Labs: CBC, BMP Assessment/Plan ASSESSMENT AND PLAN: Acute on Chronic Hypoxic and Hypercapneic Respiratory Failure Pneumonia ARDS Septic Shock Acute on Chronic Diastolic Heart Failure Pulmonary HTN Paroxysmal Atrial Fibrillation CAD Acute Kidney Injury Likely COPD JUANA/OHS HTN Hypercholesterolemia - antibiotics per ID - rate control - continue anticoagulation - spontaneous breathing trials as tolerated - titrate FiO2, PEEP to keep SpO2 >90% - monitor urine output, creatinine - enteral feeds - DVT/GI prophylaxis DR MELTON
[2020-01-14] MEDS ORDERED: PT OWN MED DRAWER 7, Y5N ONE ×2 (10:17→21:48)
[2020-01-14] MEDS: AMINO ACIDS/PROTEIN HYDROLYS 30 ML LIQUID.PKT NGT SCH (10:25)
[2020-01-14] MEDS: PANTOPRAZOLE SODIUM 40 MG VIAL IVPUSH SCH (10:25)
[2020-01-14] MEDS: METOPROLOL TARTRATE 25 MG TABLET (FP) NGT SCH ×2 (10:25→21:50)
[2020-01-14] MEDS: APIXABAN 5 MG TABLET NGT SCH ×2 (10:25→21:50)
[2020-01-14] MEDS: CHLORHEXIDINE GLUCONATE 0.12% 15ML CUP MM SCH ×2 (10:25→21:50)
[2020-01-14] MEDS: ASCORBIC ACID 500 MG/5 ML UNIT DOSE CUP NGT SCH (10:26)
[2020-01-14] MEDS: MULTIVIT-MINERALS ORAL LIQUID NGT SCH (10:26)
--- NOTE | 2020-01-14 12:01 | PN ---
Progress Note (short form) - Note Progress Note: 4 year old male with a past medical history of HTN, HLD, JUANA (not using CPAP), COPD, GERD, systolic congestive heart failure, paroxysmal atrial fibrillation (on Eliquis, s/p cardioversion 11/2016) who presented with 3 weeks of gradual onset anasarca, scrotal swelling and mild shortness of breath worse on exertion. CXR s/f diffused bilat opacities with c/f PNA +/-fluid overload, ?bilateral lower extremity cellulitis and bilateral hydrocele, and respiratory acidosis is admitted for Acute hypercapneic respiratory failure and Acute CHF exacerbation, intubated for progressive hypercarbic respiratory failure, decreased mental status on BiPAP. 01/11/2020 s/p percutaneous tracheostomy, awake off sedation. Vented on volume assist control with 40% FiO2, PEEP 5. Placed on CPAP/PS. 01/12/2020 Off sedation on vent 01/12: no acute cardiac events; had elevated temp 01/13: No significant changes Vital Signs Temperature 99.3 F 01/14/20 10:45 Pulse Rate 100 H 01/14/20 10:45 Respiratory Rate 25 H 01/14/20 11:40 Blood Pressure 141/106 H 01/14/20 10:45 O2 Sat by Pulse Oximetry (%) 97 01/14/20 08:31 Trache Cardiovascular: Yes: Regular Rate and Rhythm Respiratory: Yes: Mechanically Ventilated Gastrointestinal: Yes: Normal Bowel Sounds, Soft Edema: No Integumentary: Yes: Venous Stasis Changes Labs: CBC, BMP 01/13/20 08:20 01/13/20 08:20 A Active Medications Amino Acids (Prosource No Carb Liquid Pkt) 30 ml NGT DAILY@0800 [facility] Last Admin: 01/14/20 10:25 Dose: 30 ml Documented by: Apixaban (Eliquis -) 5 mg NGT BID [facility] Last Admin: 01/14/20 10:25 Dose: 5 mg Documented by: Ascorbic Acid (Vitamin C Oral Solution -) 1,000 mg NGT DAILY [facility] Last Admin: 01/14/20 10:26 Dose: 1,000 mg Documented by: Chlorhexidine Gluconate (Peridex -) 15 ml MM BID [facility] Last Admin: 01/14/20 10:25 Dose: 15 ml Documented by: Vancomycin HCl 1,500 mg/ (Dextrose) 500 mls @ 250 mls/hr IVPB Q24H [facility]; Protocol Last Admin: 01/13/20 18:14 Dose: 250 mls/hr Documented by: Metoprolol Tartrate (Lopressor -) 25 mg NGT BID [facility] Last Admin: 01/14/20 10:25 Dose: 25 mg Documented by: Multivitamins/Minerals (Certavite-Antioxidant Liquid) 15 ml NGT DAILY [facility] Last Admin: 01/14/20 10:26 Dose: 15 ml Documented by: Pantoprazole Sodium (Protonix Iv) 40 mg IVPUSH DAILY [facility] Last Admin: 01/14/20 10:25 Dose: 40 mg Documented by: - ....Imaging Chest X-ray: Pending Problem List - Problems (1) Congestive heart failure (CHF) Code(s): I50.9 - HEART FAILURE, UNSPECIFIED Qualifiers: Heart failure type: diastolic Heart failure chronicity: acute on chronic Qualified Code(s): I50.33 - Acute on chronic diastolic (congestive) heart failure (2) Pneumonia Code(s): J18.9 - PNEUMONIA, UNSPECIFIED ORGANISM Qualifiers: Pneumonia type: due to unspecified organism Laterality: right Lung location: lower lobe of lung Qualified Code(s): J18.9 - Pneumonia, unspecified organism (3) Acute on chronic diastolic (congestive) heart failure Code(s): I50.33 - ACUTE ON CHRONIC DIASTOLIC (CONGESTIVE) HEART FAILURE (4) Acute respiratory failure with hypoxia and hypercarbia Code(s): J96.01 - ACUTE RESPIRATORY FAILURE WITH HYPOXIA; J96.02 - ACUTE RESPIRATORY FAILURE WITH HYPERCAPNIA (5) Atrial fibrillation Code(s): I48.91 - UNSPECIFIED ATRIAL FIBRILLATION Qualifiers: Atrial fibrillation type: paroxysmal Qualified Code(s): I48.0 - Paroxysmal atrial fibrillation (6) COPD (chronic obstructive pulmonary disease) Code(s): J44.9 - CHRONIC OBSTRUCTIVE PULMONARY DISEASE, UNSPECIFIED Qualifiers: COPD type: unspecified COPD Qualified Code(s): J44.9 - Chronic obstructive pulmonary disease, unspecified (7) Hypertension Code(s): I10 - ESSENTIAL (PRIMARY) HYPERTENSION Qualifiers: Hypertension type: essential hypertension Qualified Code(s): I10 - Essential (primary) hypertension (8) Pleural effusion Code(s): J90 - PLEURAL EFFUSION, NOT ELSEWHERE CLASSIFIED Assessment/Plan 10/26/2017 Normal LV size with mild LVH, normal LV fxn, normal RV size and fxn, mild LAE, mild MR, mild-mod TR, mild CO, RVSP 43 mmHg 11/19/2016 Micheal Myoview: Apical ischemia, LVEF 45-52% 10/06/2016 Echocardiography revealed mild to moderate LV systolic dysfunction, moderate TR, RVSP of 30-40 mmH 1. Acute on chronic Hypoxic and Hypercapneic Respiratory Failure s/p tracheostomy 2. Acute on chronic LV Diastolic Heart Failure with pleural effusion and pulm HTN 3. Pneumonia, ARDS, (septic shock) 4. Paroxysmal atrial fibrillation with periods of rapid ventricular response post DCCV, [id number] score of 2 5. Obstructive Sleep Apnea/Obesity Hypoventilation Syndrome 6. HTN/HCVD 7. Hypercholesterolemia 8. CAD, angina pectoris 9. Bilateral cellulitis with h/o abscess s/p debridement 10. Bilateral hydrocele PLAN: Cardiacwise same: 1. Diuretics as needed with monitor renal function and electrolytes 2. Cont Lopressor 25 mg BID and Eliquis 5 mg BID 3. Vent and other issues per primary team
--- NOTE | 2020-01-14 14:40 | PN ---
Progress Note, Physician Chief Complaint: IN BED ASLEEP NGT IN PLACE EVENTS AND NOTES REVIEWED - Current Medication List Current Medications: Active Medications Amino Acids (Prosource No Carb Liquid Pkt) 30 ml NGT DAILY@0800 [facility] Last Admin: 01/14/20 10:25 Dose: 30 ml Documented by: Apixaban (Eliquis -) 5 mg NGT BID [facility] Last Admin: 01/14/20 10:25 Dose: 5 mg Documented by: Ascorbic Acid (Vitamin C Oral Solution -) 1,000 mg NGT DAILY [facility] Last Admin: 01/14/20 10:26 Dose: 1,000 mg Documented by: Chlorhexidine Gluconate (Peridex -) 15 ml MM BID [facility] Last Admin: 01/14/20 10:25 Dose: 15 ml Documented by: Vancomycin HCl 1,500 mg/ (Dextrose) 500 mls @ 250 mls/hr IVPB Q24H [facility]; Protoco l Last Admin: 01/13/20 18:14 Dose: 250 mls/hr Documented by: Metoprolol Tartrate (Lopressor -) 25 mg NGT BID [facility] Last Admin: 01/14/20 10:25 Dose: 25 mg Documented by: Multivitamins/Minerals (Certavite-Antioxidant Liquid) 15 ml NGT DAILY [facility] Last Admin: 01/14/20 10:26 Dose: 15 ml Documented by: Pantoprazole Sodium (Protonix Iv) 40 mg IVPUSH DAILY [facility] Last Admin: 01/14/20 10:25 Dose: 40 mg Documented by: - Objective Vital Signs: Vital Signs Temperature 99.3 F 01/14/20 10:45 Pulse Rate 100 H 01/14/20 10:45 Respiratory Rate 25 H 01/14/20 11:40 Blood Pressure 141/106 H 01/14/20 10:45 O2 Sat by Pulse Oximetry (%) 97 01/14/20 08:31 Constitutional: Yes: Mild Distress HENT: Yes: Other (NGT) Cardiovascular: Yes: Regular Rate and Rhythm Respiratory: Yes: Diminished (TRACH ON VENT) Gastrointestinal: Yes: Soft, Other (NGT) Genitourinary: Yes: Incontinence Musculoskeletal: Yes: Muscle Weakness Neurological: Yes: Pre-Existing Deficit, Weakness Labs: CBC, BMP 01/13/20 08:20 01/13/20 08:20 INR, PTT INR 1.23 (0.83-1.09) H 01/10/20 13:50 Problem List - Problems (1) Tracheostomy care Code(s): Z43.0 - ENCOUNTER FOR ATTENTION TO TRACHEOSTOMY (2) Tracheostomy dependent Code(s): Z93.0 - TRACHEOSTOMY STATUS (3) Anasarca Code(s): R60.1 - GENERALIZED EDEMA (4) Cellulitis Code(s): L03.90 - CELLULITIS, UNSPECIFIED (5) Congestive heart failure (CHF) Code(s): I50.9 - HEART FAILURE, UNSPECIFIED Qualifiers: Heart failure type: diastolic Heart failure chronicity: acute on chronic Qualified Code(s): I50.33 - Acute on chronic diastolic (congestive) heart failure (6) Pneumonia Code(s): J18.9 - PNEUMONIA, UNSPECIFIED ORGANISM Qualifiers: Pneumonia type: due to unspecified organism Laterality: right Lung location: lower lobe of lung Qualified Code(s): J18.9 - Pneumonia, unspecified organism (7) Acute on chronic diastolic (congestive) heart failure Code(s): I50.33 - ACUTE ON CHRONIC DIASTOLIC (CONGESTIVE) HEART FAILURE (8) COPD (chronic obstructive pulmonary disease) Code(s): J44.9 - CHRONIC OBSTRUCTIVE PULMONARY DISEASE, UNSPECIFIED Qualifiers: COPD type: unspecified COPD Qualified Code(s): J44.9 - Chronic obstructive pulmonary disease, unspecified (9) Respiratory failure with hypoxia and hypercapnia Code(s): J96.91 - RESPIRATORY FAILURE, UNSPECIFIED WITH HYPOXIA; J96.92 - RESPIRATORY FAILURE, UNSPECIFIED WITH HYPERCAPNIA Qualifiers: Chronicity: acute on chronic Qualified Code(s): J96.21 - Acute and chronic respiratory failure with hypoxia; J96.22 - Acute and chronic respiratory failure with hypercapnia Assessment/Plan PLACEMENT TO LTAC WHEN READY IVF [facility] MONITOR LABS PULM EVAL AND F/U VENT CARE WEAN TOLERATED DVT PROPHYLAXIS
--- NOTE | 2020-01-14 16:01 | PN ---
Progress Note, Physician History of Present Illness: stable continues to improve - Current Medication List Current Medications: Active Medications Amino Acids (Prosource No Carb Liquid Pkt) 30 ml NGT DAILY@0800 [facility] Last Admin: 01/14/20 10:25 Dose: 30 ml Documented by: Apixaban (Eliquis -) 5 mg NGT BID [facility] Last Admin: 01/14/20 10:25 Dose: 5 mg Documented by: Ascorbic Acid (Vitamin C Oral Solution -) 1,000 mg NGT DAILY [facility] Last Admin: 01/14/20 10:26 Dose: 1,000 mg Documented by: Chlorhexidine Gluconate (Peridex -) 15 ml MM BID [facility] Last Admin: 01/14/20 10:25 Dose: 15 ml Documented by: Vancomycin HCl 1,500 mg/ (Dextrose) 500 mls @ 250 mls/hr IVPB Q24H [facility]; Protocol Last Admin: 01/13/20 18:14 Dose: 250 mls/hr Documented by: Metoprolol Tartrate (Lopressor -) 25 mg NGT BID [facility] Last Admin: 01/14/20 10:25 Dose: 25 mg Documented by: Multivitamins/Minerals (Certavite-Antioxidant Liquid) 15 ml NGT DAILY [facility] Last Admin: 01/14/20 10:26 Dose: 15 ml Documented by: Pantoprazole Sodium (Protonix Iv) 40 mg IVPUSH DAILY [facility] Last Admin: 01/14/20 10:25 Dose: 40 mg Documented by: - Objective Vital Signs: Vital Signs Temperature 99.3 F 01/14/20 10:45 Pulse Rate 100 H 01/14/20 10:45 Respiratory Rate 22 H 01/14/20 15:54 Blood Pressure 141/106 H 01/14/20 10:45 O2 Sat by Pulse Oximetry (%) 97 01/14/20 08:31 Constitutional: Yes: No Distress, Calm Cardiovascular: Yes: S1, S2 Respiratory: Yes: Mechanically Ventilated, Other (s/p trach) Gastrointestinal: Yes: Normal Bowel Sounds, Soft Musculoskeletal: Yes: WNL Extremities: Yes: WNL Neurological: Yes: Alert Psychiatric: Yes: Alert Labs: CBC, BMP 01/13/20 08:20 01/13/20 08:20 INR, PTT INR 1.23 (0.83-1.09) H 01/10/20 13:50 Assessment/Plan 64 year old male with a past medical history of HTN, HLD, JUANA (not using CPAP), COPD, GERD, systolic congestive heart failure, paroxysmal atrial fibrillation (on Eliquis, s/p cardioversion 11/2016) who presented with 3 weeks of gradual onset anasarca, scrotal swelling and mild shortness of breath worse on exertion. He as found to have a PNA, on clinical exam signs of fluid overload, ?bilateral lower extremity cellulitis and bilateral hydrocele. 1. Acute Respiratory Failure 2. Fluid Overload/ 3.Bilateral Lower Extremity Cellulitis 4. Hydrocele 5. Hypertension 6. Atrial Fibrillation 7. Elevated Troponin 8. Rule Out COVID 9 pna plan will change vanco to twice a day rest continue current mgmt
[2020-01-14] MEDS: VANCOMYCIN HCL 1,500 MG in DEXTROSE 5%-WATER - 500 ML IVPB SCH (16:06)
[2020-01-14] MEDS: VANCOMYCIN 1 GRAM (PRE-DOCKED) 1,000 MG/250 ML BAG IVPB SCH (21:50)
--- NOTE | 2020-01-15 07:44 | PN ---
Progress Note, Physician History of Present Illness: PULMONARY MORE ALERT,COMFORTABLE ON VENT SUPPORT AC MODE - Current Medication List Current Medications: Active Medications Amino Acids (Prosource No Carb Liquid Pkt) 30 ml NGT DAILY@0800 [facility] Last Admin: 01/14/20 10:25 Dose: 30 ml Documented by: Apixaban (Eliquis -) 5 mg NGT BID [facility] Last Admin: 01/14/20 21:50 Dose: 5 mg Documented by: Ascorbic Acid (Vitamin C Oral Solution -) 1,000 mg NGT DAILY [facility] Last Admin: 01/14/20 10:26 Dose: 1,000 mg Documented by: Chlorhexidine Gluconate (Peridex -) 15 ml MM BID [facility] Last Admin: 01/14/20 21:50 Dose: 15 ml Documented by: Vancomycin HCl (Vancomycin (Pre-Docked)) 1,000 mg in 250 mls @ 250 mls/hr IVPB BID [facility]; Protocol Last Admin: 01/14/20 21:50 Dose: 250 mls/hr Documented by: Metoprolol Tartrate (Lopressor -) 25 mg NGT BID [facility] Last Admin: 01/14/20 21:50 Dose: 25 mg Documented by: Multivitamins/Minerals (Certavite-Antioxidant Liquid) 15 ml NGT DAILY [facility] Last Admin: 01/14/20 10:26 Dose: 15 ml Documented by: Pantoprazole Sodium (Protonix Iv) 40 mg IVPUSH DAILY [facility] Last Admin: 01/14/20 10:25 Dose: 40 mg Documented by: - Objective Vital Signs: Vital Signs Temperature 99.1 F 01/15/20 05:35 Pulse Rate 91 H 01/15/20 05:35 Respiratory Rate 16 01/15/20 05:35 Blood Pressure 128/73 01/15/20 05:35 O2 Sat by Pulse Oximetry (%) 97 01/15/20 04:01 Constitutional: Yes: Well Nourished, Calm Eyes: Yes: WNL HENT: Yes: WNL Neck: Yes: WNL Cardiovascular: Yes: Pulse Irregular, S1, S2 Respiratory: Yes: Rhonchi (FEW RHONCHI) Gastrointestinal: Yes: Normal Bowel Sounds, Soft Extremities: Yes: WNL Edema: No Labs: CBC, BMP Assessment/Plan ASSESSMENT AND PLAN: Acute on Chronic Hypoxic and Hypercapneic Respiratory Failure Pneumonia ARDS Septic Shock Acute on Chronic Diastolic Heart Failure Pulmonary HTN Paroxysmal Atrial Fibrillation CAD Acute Kidney Injury Likely COPD JUANA/OHS HTN Hypercholesterolemia - antibiotics per ID - rate control - continue anticoagulation - spontaneous breathing trials as tolerated - titrate FiO2, PEEP to keep SpO2 >90% - monitor urine output, creatinine - enteral feeds - DVT/GI prophylaxis DR MELTON
--- NOTE | 2020-01-15 09:11 | PN ---
Progress Note (short form) - Note Progress Note: 4 year old male with a past medical history of HTN, HLD, JUANA (not using CPAP), COPD, GERD, systolic congestive heart failure, paroxysmal atrial fibrillation (on Eliquis, s/p cardioversion 11/2016) who presented with 3 weeks of gradual onset anasarca, scrotal swelling and mild shortness of breath worse on exertion. CXR s/f diffused bilat opacities with c/f PNA +/-fluid overload, ?bilateral lower extremity cellulitis and bilateral hydrocele, and respiratory acidosis is admitted for Acute hypercapneic respiratory failure and Acute CHF exacerbation, intubated for progressive hypercarbic respiratory failure, decreased mental status on BiPAP. 01/11/2020 s/p percutaneous tracheostomy, awake off sedation. Vented on volume assist control with 40% FiO2, PEEP 5. Placed on CPAP/PS. 01/12/2020 Off sedation on vent 01/12: no acute cardiac events; had elevated temp 01/13: No significant change01/14: No cardiac events Vital Signs Temperature 99.1 F 01/15/20 05:35 Pulse Rate 86 01/15/20 08:29 Respiratory Rate 20 01/15/20 08:29 Blood Pressure 128/73 01/15/20 05:35 O2 Sat by Pulse Oximetry (%) 97 01/15/20 08:29 Trache Cardiovascular: Yes: Regular Rate and Rhythm Respiratory: Yes: Mechanically Ventilated Gastrointestinal: Yes: Normal Bowel Sounds, Soft Edema: No Integumentary: Yes: Venous Stasis Changes Labs: CBC, BMP 01/13/20 08:20 01/13/20 08:20 A Active Medications Amino Acids (Prosource No Carb Liquid Pkt) 30 ml NGT DAILY@0800 [facility] Last Admin: 01/14/20 10:25 Dose: 30 ml Documented by: Apixaban (Eliquis -) 5 mg NGT BID [facility] Last Admin: 01/14/20 10:25 Dose: 5 mg Documented by: Ascorbic Acid (Vitamin C Oral Solution -) 1,000 mg NGT DAILY [facility] Last Admin: 01/14/20 10:26 Dose: 1,000 mg Documented by: Chlorhexidine Gluconate (Peridex -) 15 ml MM BID [facility] Last Admin: 01/14/20 10:25 Dose: 15 ml Documented by: Vancomycin HCl 1,500 mg/ (Dextrose) 500 mls @ 250 mls/hr IVPB Q24H [facility]; Protocol Last Admin: 01/13/20 18:14 Dose: 250 mls/hr Documented by: Metoprolol Tartrate (Lopressor -) 25 mg NGT BID [facility] Last Admin: 01/14/20 10:25 Dose: 25 mg Documented by: Multivitamins/Minerals (Certavite-Antioxidant Liquid) 15 ml NGT DAILY [facility] Last Admin: 01/14/20 10:26 Dose: 15 ml Documented by: Pantoprazole Sodium (Protonix Iv) 40 mg IVPUSH DAILY [facility] Last Admin: 01/14/20 10:25 Dose: 40 mg Documented by: - ....Imaging Chest X-ray: Pending Problem List - Problems (1) Congestive heart failure (CHF) Code(s): I50.9 - HEART FAILURE, UNSPECIFIED Qualifiers: Heart failure type: diastolic Heart failure chronicity: acute on chronic Qualified Code(s): I50.33 - Acute on chronic diastolic (congestive) heart failure (2) Pneumonia Code(s): J18.9 - PNEUMONIA, UNSPECIFIED ORGANISM Qualifiers: Pneumonia type: due to unspecified organism Laterality: right Lung location: lower lobe of lung Qualified Code(s): J18.9 - Pneumonia, unspecified organism (3) Acute on chronic diastolic (congestive) heart failure Code(s): I50.33 - ACUTE ON CHRONIC DIASTOLIC (CONGESTIVE) HEART FAILURE (4) Acute respiratory failure with hypoxia and hypercarbia Code(s): J96.01 - ACUTE RESPIRATORY FAILURE WITH HYPOXIA; J96.02 - ACUTE RESPIRATORY FAILURE WITH HYPERCAPNIA (5) Atrial fibrillation Code(s): I48.91 - UNSPECIFIED ATRIAL FIBRILLATION Qualifiers: Atrial fibrillation type: paroxysmal Qualified Code(s): I48.0 - Paroxysmal atrial fibrillation (6) COPD (chronic obstructive pulmonary disease) Code(s): J44.9 - CHRONIC OBSTRUCTIVE PULMONARY DISEASE, UNSPECIFIED Qualifiers: COPD type: unspecified COPD Qualified Code(s): J44.9 - Chronic obstructive pulmonary disease, unspecified (7) Hypertension Code(s): I10 - ESSENTIAL (PRIMARY) HYPERTENSION Qualifiers: Hypertension type: essential hypertension Qualified Code(s): I10 - Essential (primary) hypertension (8) Pleural effusion Code(s): J90 - PLEURAL EFFUSION, NOT ELSEWHERE CLASSIFIED Assessment/Plan 10/26/2017 Normal LV size with mild LVH, normal LV fxn, normal RV size and fxn, mild LAE, mild MR, mild-mod TR, mild NC, RVSP 43 mmHg 11/19/2016 Lexiscan Myoview: Apical ischemia, LVEF 45-52% 10/06/2016 Echocardiography revealed mild to moderate LV systolic dysfunction, moderate TR, RVSP of 30-40 mmH 1. Acute on chronic Hypoxic and Hypercapneic Respiratory Failure s/p t racheostomy 2. Acute on chronic LV Diastolic Heart Failure with pleural effusion and pulm HTN 3. Pneumonia, ARDS, (septic shock) 4. Paroxysmal atrial fibrillation with periods of rapid ventricular response post DCCV, [id number] score of 2 5. Obstructive Sleep Apnea/Obesity Hypoventilation Syndrome 6. HTN/HCVD 7. Hypercholesterolemia 8. CAD, angina pectoris 9. Bilateral cellulitis with h/o abscess s/p debridement 10. Bilateral hydrocele PLAN: Cardiacwise same: 1. Diuretics as needed with monitor renal function and electrolytes 2. Cont Lopressor 25 mg BID and Eliquis 5 mg BID 3. Vent and other issues per primary team
[2020-01-15] MEDS ORDERED: PT OWN MED DRAWER 7, Y5N ONE ×3 (10:12→21:47)
[2020-01-15] MEDS: AMINO ACIDS/PROTEIN HYDROLYS 30 ML LIQUID.PKT NGT SCH (10:19)
[2020-01-15] MEDS: METOPROLOL TARTRATE 25 MG TABLET (FP) NGT SCH ×2 (10:19→21:50)
[2020-01-15] MEDS: APIXABAN 5 MG TABLET NGT SCH ×2 (10:19→21:50)
[2020-01-15] MEDS: PANTOPRAZOLE SODIUM 40 MG VIAL IVPUSH SCH (10:19)
[2020-01-15] MEDS: ASCORBIC ACID 500 MG/5 ML UNIT DOSE CUP NGT SCH (10:19)
[2020-01-15] MEDS: CHLORHEXIDINE GLUCONATE 0.12% 15ML CUP MM SCH ×2 (10:20→21:50)
[2020-01-15] MEDS: VANCOMYCIN 1 GRAM (PRE-DOCKED) 1,000 MG/250 ML BAG IVPB SCH ×2 (10:20→21:50)
[2020-01-15] MEDS: MULTIVIT-MINERALS ORAL LIQUID NGT SCH (10:20)
--- NOTE | 2020-01-15 11:10 | PN ---
Progress Note, Physician Chief Complaint: IN BED ASLEEP D/W NURSE URINE BENITEZ MINIMAL OUTPUT PATIENT WILL HAVE BLADDER SONO TODAY - Current Medication List Current Medications: Active Medications Amino Acids (Prosource No Carb Liquid Pkt) 30 ml NGT DAILY@0800 [facility] Last Admin: 01/15/20 10:19 Dose: 30 ml Documented by: Apixaban (Eliquis -) 5 mg NGT BID [facility] Last Admin: 01/15/20 10:19 Dose: 5 mg Documented by: Ascorbic Acid (Vitamin C Oral Solution -) 1,000 mg NGT DAILY [facility] Last Admin: 01/15/20 10:19 Dose: 1,000 mg Documented by: Chlorhexidine Gluconate (Peridex -) 15 ml MM BID [facility] Last Admin: 01/15/20 10:20 Dose: 15 ml Documented by: Vancomycin HCl (Vancomycin (Pre-Docked)) 1,000 mg in 250 mls @ 250 mls/hr IVPB BID [facility]; Protocol Last Admin: 01/15/20 10:20 Dose: 250 mls/hr Documented by: Metoprolol Tartrate (Lopressor -) 25 mg NGT BID [facility] Last Admin: 01/15/20 10:19 Dose: 25 mg Documented by: Multivitamins/Minerals (Certavite-Antioxidant Liquid) 15 ml NGT DAILY [facility] Last Admin: 01/15/20 10:20 Dose: 15 ml Documented by: Pantoprazole Sodium (Protonix Iv) 40 mg IVPUSH DAILY [facility] Last Admin: 01/15/20 10:19 Dose: 40 mg Documented by: - Objective Vital Signs: Vital Signs Temperature 99.1 F 01/15/20 05:35 Pulse Rate 86 01/15/20 08:29 Respiratory Rate 20 01/15/20 08:29 Blood Pressure 128/73 01/15/20 05:35 O2 Sat by Pulse Oximetry (%) 97 01/15/20 08:29 HENT: Yes: Other (TRACHEOSTOMY) Cardiovascular: Yes: Regular Rate and Rhythm Respiratory: Yes: Diminished, Mechanically Ventilated Gastrointestinal: Yes: Soft Genitourinary: Yes: Benitez Present Musculoskeletal: Yes: Muscle Weakness Neurological: Yes: Pre-Existing Deficit Labs: CBC, BMP 01/13/20 08:20 01/13/20 08:20 INR, PTT INR 1.23 (0.83-1.09) H 01/10/20 13:50 Problem List - Problems (1) Tracheostomy care Code(s): Z43.0 - ENCOUNTER FOR ATTENTION TO TRACHEOSTOMY (2) Tracheostomy dependent Code(s): Z93.0 - TRACHEOSTOMY STATUS (3) Anasarca Code(s): R60.1 - GENERALIZED EDEMA (4) Cellulitis Code(s): L03.90 - CELLULITIS, UNSPECIFIED (5) Congestive heart failure (CHF) Code(s): I50.9 - HEART FAILURE, UNSPECIFIED Qualifiers: Heart failure type: diastolic Heart failure chronicity: acute on chronic Qualified Code(s): I50.33 - Acute on chronic diastolic (congestive) heart failure (6) Pneumonia Code(s): J18.9 - PNEUMONIA, UNSPECIFIED ORGANISM Qualifiers: Pneumonia type: due to unspecified organism Laterality: right Lung location: lower lobe of lung Qualified Code(s): J18.9 - Pneumonia, unspecified organism (7) Acute on chronic diastolic (congestive) heart failure Code(s): I50.33 - ACUTE ON CHRONIC DIASTOLIC (CONGESTIVE) HEART FAILURE (8) COPD (chronic obstructive pulmonary disease) Code(s): J44.9 - CHRONIC OBSTRUCTIVE PULMONARY DISEASE, UNSPECIFIED Qualifiers: COPD type: unspecified COPD Qualified Code(s): J44.9 - Chronic obstructive pulmonary disease, unspecified (9) Respiratory failure with hypoxia and hypercapnia Code(s): J96.91 - RESPIRATORY FAILURE, UNSPECIFIED WITH HYPOXIA; J96.92 - RESPIRATORY FAILURE, UNSPECIFIED WITH HYPERCAPNIA Qualifiers: Chronicity: acute on chronic Qualified Code(s): J96.21 - Acute and chronic respiratory failure with hypoxia; J96.22 - Acute and chronic respiratory failure with hypercapnia Assessment/Plan PLACEMENT TO LTAC WHEN READY IVF GENTLEY BLADDER SONO TO EVALUATE POOR URINE OUTPUT MONITOR LABS PULM EVAL AND F/U VENT CARE WEAN TOLERATED DVT PROPHYLAXIS
--- NOTE | 2020-01-15 12:24 | PN ---
Progress Note, Physician History of Present Illness: stable awake and alert - Current Medication List Current Medications: Active Medications Amino Acids (Prosource No Carb Liquid Pkt) 30 ml NGT DAILY@0800 [facility] Last Admin: 01/15/20 10:19 Dose: 30 ml Documented by: Apixaban (Eliquis -) 5 mg NGT BID [facility] Last Admin: 01/15/20 10:19 Dose: 5 mg Documented by: Ascorbic Acid (Vitamin C Oral Solution -) 1,000 mg NGT DAILY [facility] Last Admin: 01/15/20 10:19 Dose: 1,000 mg Documented by: Chlorhexidine Gluconate (Peridex -) 15 ml MM BID [facility] Last Admin: 01/15/20 10:20 Dose: 15 ml Documented by: Vancomycin HCl (Vancomycin (Pre-Docked)) 1,000 mg in 250 mls @ 250 mls/hr IVPB BID [facility]; Protocol Last Admin: 01/15/20 10:20 Dose: 250 mls/hr Documented by: Metoprolol Tartrate (Lopressor -) 25 mg NGT BID [facility] Last Admin: 01/15/20 10:19 Dose: 25 mg Documented by: Multivitamins/Minerals (Certavite-Antioxidant Liquid) 15 ml NGT DAILY [facility] Last Admin: 01/15/20 10:20 Dose: 15 ml Documented by: Pantoprazole Sodium (Protonix Iv) 40 mg IVPUSH DAILY [facility] Last Admin: 01/15/20 10:19 Dose: 40 mg Documented by: - Objective Vital Signs: Vital Signs Temperature 99.1 F 01/15/20 05:35 Pulse Rate 86 01/15/20 08:29 Respiratory Rate 22 H 01/15/20 11:32 Blood Pressure 128/73 01/15/20 05:35 O2 Sat by Pulse Oximetry (%) 97 01/15/20 08:29 Constitutional: Yes: No Distress, Calm Cardiovascular: Yes: S1, S2 Respiratory: Yes: Mechanically Ventilated, Other (s/p trach) Gastrointestinal: Yes: Normal Bowel Sounds, Soft Musculoskeletal: Yes: WNL Extremities: Yes: WNL Neurological: Yes: Alert Psychiatric: Yes: Alert Labs: CBC, BMP 01/13/20 08:20 01/13/20 08:20 INR, PTT INR 1.23 (0.83-1.09) H 01/10/20 13:50 Assessment/Plan 64 year old male with a past medical history of HTN, HLD, JUANA (not using CPAP), COPD, GERD, systolic congestive heart failure, paroxysmal atrial fibrillation (on Eliquis, s/p cardioversion 11/2016) who presented with 3 weeks of gradual onset anasarca, scrotal swelling and mild shortness of breath worse on exertion. He as found to have a PNA, on clinical exam signs of fluid overload, ?bilateral lower extremity cellulitis and bilateral hydrocele. 1. Acute Respiratory Failure 2. Fluid Overload/ 3.Bilateral Lower Extremity Cellulitis 4. Hydrocele 5. Hypertension 6. Atrial Fibrillation 7. Elevated Troponin 8. Rule Out COVID 9 pna plan continue abx follow vanco levels resp support rest as per the team
[2020-01-16 08:44] LABS: HEMATOCRIT 40.5 % (35.4-49); HEMOGLOBIN 11.9 GM/dL (11.7-16.9); MCH 23.8 pg (25.7-33.7); MCHC 29.3 g/dl (32.0-35.9); MEAN CELL VOLUME 81.2 fl (80-96); MEAN PLT VOLUME 9.6 fl (7.5-11.1); PLATELET COUNT 99 K/MM3 (134-434); RBC 4.99 M/mm3 (4.00-5.60); RDW 23.3 % (11.9-15.9); WHITE BLOOD COUNT 8.8 K/mm3 (4.0-10.0)
--- NOTE | 2020-01-16 08:58 | PN ---
Progress Note, Physician History of Present Illness: 64yo M with PMHx of HTN, HLD, JUANA (not using CPAP), COPD, GERD, systolic CHF, afib on eliquis (s/p cardioversion 11/2016) who presented with R lobe pneumonia, fluid overload, bilateral LE cellulitis, bilateral hydrocele, and respiratory acidosis. He was admitted to ICU for treatment of acute hypercapneic respiratory failure secondary to acute CHF exacerbation requiring intubation. Cardiology, ID, nephro, and thoracic surgery were consulted. Patient was maintained on LTVV (for ARDS) and diuresed aggressively. Patient developed MONIE and diuresis was held; MONIE resolved. During his stay, patient decompensated requiring pressor support and stress dose steroids; eventually patient was tapered off of pressors. Patient completed a course of abx. Most Recent sputum cx significant for MRSA + strep agalacticae for which patient was restarted on IV vanco. Patient's vent settings improved however patient was unable to be weaned off of the vent. He received tracheostomy on 01/10/2020 and sedation was discontinued. Patient is stable on assist control (96%) and other vital signs have remained stable. Mental status is improving and patient responds to commands. Tube feeds have been re-stared and electrolytes were repleted. After trach patient spiked a temp to 100.8, thouht to be post-op fever. Patient stable for transfer to med- surg (vent floor). - Current Medication List Current Medications: Active Medications Amino Acids (Prosource No Carb Liquid Pkt) 30 ml NGT DAILY@0800 [facility] Last Admin: 01/15/20 10:19 Dose: 30 ml Documented by: Apixaban (Eliquis -) 5 mg NGT BID [facility] Last Admin: 01/15/20 21:50 Dose: 5 mg Documented by: Ascorbic Acid (Vitamin C Oral Solution -) 1,000 mg NGT DAILY [facility] Last Admin: 01/15/20 10:19 Dose: 1,000 mg Documented by: Chlorhexidine Gluconate (Peridex -) 15 ml MM BID [facility] Last Admin: 01/15/20 21:50 Dose: 15 ml Documented by: Vancomycin HCl (Vancomycin (Pre-Docked)) 1,000 mg in 250 mls @ 250 mls/hr IVPB BID [facility]; Protocol Last Admin: 01/15/20 21:50 Dose: 250 mls/hr Documented by: Metoprolol Tartrate (Lopressor -) 25 mg NGT BID [facility] Last Admin: 01/15/20 21:50 Dose: 25 mg Documented by: Multivitamins/Minerals (Certavite-Antioxidant Liquid) 15 ml NGT DAILY [facility] Last Admin: 01/15/20 10:20 Dose: 15 ml Documented by: Pantoprazole Sodium (Protonix Iv) 40 mg IVPUSH DAILY [facility] Last Admin: 01/15/20 10:19 Dose: 40 mg Documented by: - Objective Vital Signs: Vital Signs Temperature 98 F 01/16/20 05:00 Pulse Rate 93 H 01/16/20 07:55 Respiratory Rate 25 H 01/16/20 08:20 Blood Pressure 121/67 01/16/20 05:00 O2 Sat by Pulse Oximetry (%) 97 01/16/20 08:20 Cardiovascular: Yes: S1, S2 Respiratory: Yes: Regular, CTA Bilaterally Gastrointestinal: Yes: Normal Bowel Sounds, Soft Labs: CBC, BMP 01/16/20 07:55 INR, PTT INR 1.23 (0.83-1.09) H 01/10/20 13:50 Problem List - Problems (1) Acute hypercapnic respiratory failure Assessment/Plan: Secondary to acute CHF exacerbation requiring intubation. Patient completed a course of abx. Most Recent sputum cx significant for MRSA + strep agalacticae for which patient was restarted on IV vanco. Patient's vent settings improved however patient was unable to be weaned off of the vent. He received trache ostomy on 01/10/2020 Code(s): J96.02 - ACUTE RESPIRATORY FAILURE WITH HYPERCAPNIA (2) Congestive heart failure (CHF) Assessment/Plan: OFF DIURETICS Code(s): I50.9 - HEART FAILURE, UNSPECIFIED Qualifiers: Heart failure type: diastolic Heart failure chronicity: acute on chronic Qualified Code(s): I50.33 - Acute on chronic diastolic (congestive) heart failure (3) Pneumonia Assessment/Plan: - sputum culture growing MRSA and strep, WBC 10.3 - started vancomycin (first dose 12/10/2019 at 15:44) - blood cx and UA no growth to date - ID consulted, appreciate recs Microbiology 01/12/20 12:48 Blood - Peripheral Venous Blood Culture - Preliminary NO GROWTH OBTAINED AFTER 72 HOURS, INCUBATION TO CONTINUE FOR 2 DAYS. 01/12/20 12:43 Blood - Peripheral Venous Blood Culture - Preliminary NO GROWTH OBTAINED AFTER 72 HOURS, INCUBATION TO CONTINUE FOR 2 DAYS. 01/12/20 17:30 Urine - Urine Clean Catch Urine Culture - Final NO GROWTH OBTAINED 01/06/20 21:40 Blood - Peripheral Venous Blood Culture - Final NO GROWTH AFTER 5 DAYS INCUBATION 01/06/20 21:30 Blood - Peripheral Venous Blood Culture - Final NO GROWTH AFTER 5 DAYS INCUBATION 01/07/20 12:00 Sputum - Endotrachea Suction/Ventilator Gram Stain - Final 01/07/20 12:00 Sputum - Endotrachea Suction/Ventilator Sputum Culture - Final Mr S Aureus Strep Agalactiae Group B 01/07/20 00:05 Urine - Urine Hilario Urine Culture - Final NO GROWTH OBTAINED 12/27/19 21:00 Blood - Peripheral Venous Blood Culture - Final NO GROWTH AFTER 5 DAYS INCUBATION 12/27/19 21:00 Blood - Peripheral Venous Blood Culture - Final NO GROWTH AFTER 5 DAYS INCUBATION 12/25/19 20:40 Blood - Peripheral Venous Blood Culture - Final NO GROWTH AFTER 5 DAYS INCUBATION 12/25/19 20:30 Blood - Peripheral Venous Blood Culture - Final NO GROWTH AFTER 5 DAYS INCUBATION 12/27/19 14:00 Urine - Urine Hilario Urine Culture - Final NO GROWTH OBTAINED 12/23/19 18:00 Sputum - Endotrachea Suction/Ventilator Gram Stain - Final 12/23/19 18:00 Sputum - Endotrachea Suction/Ventilator Sputum Culture - Final NORMAL RESPIRATORY PEYTON 12/23/19 17:51 Urine - Urine Hilario Urine Culture - Final NO GROWTH OBTAINED 12/16/19 20:13 Blood - Peripheral Venous Blood Culture - Final NO GROWTH AFTER 5 DAYS INCUBATION 12/16/19 19:50 Blood - Peripheral Venous Blood Culture - Final NO GROWTH AFTER 5 DAYS INCUBATION Code(s): J18.9 - PNEUMONIA, UNSPECIFIED ORGANISM Qualifiers: Pneumonia type: due to unspecified organism Laterality: right Lung location: lower lobe of lung Qualified Code(s): J18.9 - Pneumonia, unspecified organism (4) Afib Assessment/Plan: - metoprolol per Dr. Petit - apixaban Code(s): I48.91 - UNSPECIFIED ATRIAL FIBRILLATION Qualifiers: Atrial fibrillation type: paroxysmal Qualified Code(s): I48.0 - Paroxysmal atrial fibrillation
[2020-01-16 09:11] LABS: BLOOD UREA NITROGEN 20.3 mg/dL (7-18); CALCIUM 8.7 mg/dL (8.5-10.1); CREATININE 0.4 mg/dL (0.55-1.3); POTASSIUM 3.4 mmol/L (3.5-5.1)
--- NOTE | 2020-01-16 09:42 | PN ---
Progress Note, Physician History of Present Illness: 64 year old male with a past medical history of HTN, HLD, JUANA (not using CPAP), COPD, GERD, systolic congestive heart failure, paroxysmal atrial fibrillation (on Eliquis, s/p cardioversion 11/2016) who presented with 3 weeks of gradual onset anasarca, scrotal swelling and mild shortness of breath worse on exertion. CXR s/f diffused bilat opacities with c/f PNA +/-fluid overload, ?bilateral lower extremity cellulitis and bilateral hydrocele, and respiratory acidosis is admitted for Acute hypercapneic respiratory failure and Acute CHF exacerbation, intubated for progressive hypercarbic respiratory failure, decreased mental status on BiPAP. 01/11/2020 s/p percutaneous tracheostomy, awake off sedation. Vented on volume assist control with 40% FiO2, PEEP 5. Placed on CPAP/PS. 01/12/2020 Off sedation on vent 01/12: no acute cardiac events; had elevated temp 01/13: No significant change01/14: No cardiac events 01/15: Vented, awake. Currently on SIMV RR 8 PS 10. Abd slightly distended - Current Medication List Current Medications: Active Medications Amino Acids (Prosource No Carb Liquid Pkt) 30 ml NGT DAILY@0800 [facility] Last Admin: 01/15/20 10:19 Dose: 30 ml Documented by: Apixaban (Eliquis -) 5 mg NGT BID [facility] Last Admin: 01/15/20 21:50 Dose: 5 mg Documented by: Ascorbic Acid (Vitamin C Oral Solution -) 1,000 mg NGT DAILY [facility] Last Admin: 01/15/20 10:19 Dose: 1,000 mg Documented by: Chlorhexidine Gluconate (Peridex -) 15 ml MM BID [facility] Last Admin: 01/15/20 21:50 Dose: 15 ml Documented by: Vancomycin HCl (Vancomycin (Pre-Docked)) 1,000 mg in 250 mls @ 250 mls/hr IVPB BID [facility]; Protocol Last Admin: 01/15/20 21:50 Dose: 250 mls/hr Documented by: Metoprolol Tartrate (Lopressor -) 25 mg NGT BID [facility] Last Admin: 01/15/20 21:50 Dose: 25 mg Documented by: Multivitamins/Minerals (Certavite-Antioxidant Liquid) 15 ml NGT DAILY [facility] Last Admin: 01/15/20 10:20 Dose: 15 ml Documented by: Pantoprazole Sodium (Protonix Iv) 40 mg IVPUSH DAILY [facility] Last Admin: 01/15/20 10:19 Dose: 40 mg Documented by: - Objective Vital Signs: Vital Signs Temperature 98 F 01/16/20 05:00 Pulse Rate 93 H 01/16/20 07:55 Respiratory Rate 25 H 01/16/20 08:20 Blood Pressure 121/67 01/16/20 05:00 O2 Sat by Pulse Oximetry (%) 97 01/16/20 08:20 Constitutional: Yes: No Distress, Calm Neck: Yes: Other (Tracheostomy) Respiratory: Yes: Mechanically Ventilated Gastrointestinal: Yes: Normal Bowel Sounds, Distention Edema: No Labs: CBC, BMP 01/16/20 07:55 01/16/20 07:55 INR, PTT INR 1.23 (0.83-1.09) H 01/10/20 13:50 - ....Imaging X-ray: Report Reviewed (Possible SBO) Cat Scan: Pending Problem List - Problems (1) Congestive heart failure (CHF) Code(s): I50.9 - HEART FAILURE, UNSPECIFIED Qualifiers: Heart failure type: diastolic Heart failure chronicity: acute on chronic Qualified Code(s): I50.33 - Acute on chronic diastolic (congestive) heart failure (2) Pneumonia Code(s): J18.9 - PNEUMONIA, UNSPECIFIED ORGANISM Qualifiers: Pneumonia type: due to unspecified organism Laterality: right Lung location: lower lobe of lung Qualified Code(s): J18.9 - Pneumonia, unspecified organism (3) Acute on chronic diastolic (congestive) heart failure Code(s): I50.33 - ACUTE ON CHRONIC DIASTOLIC (CONGESTIVE) HEART FAILURE (4) Acute respiratory failure with hypoxia and hypercarbia Code(s): J96.01 - ACUTE RESPIRATORY FAILURE WITH HYPOXIA; J96.02 - ACUTE RESPIRA TORY FAILURE WITH HYPERCAPNIA (5) Atrial fibrillation Code(s): I48.91 - UNSPECIFIED ATRIAL FIBRILLATION Qualifiers: Atrial fibrillation type: paroxysmal Qualified Code(s): I48.0 - Paroxysmal atrial fibrillation (6) COPD (chronic obstructive pulmonary disease) Code(s): J44.9 - CHRONIC OBSTRUCTIVE PULMONARY DISEASE, UNSPECIFIED Qualifiers: COPD type: unspecified COPD Qualified Code(s): J44.9 - Chronic obstructive pulmonary disease, unspecified (7) Hypertension Code(s): I10 - ESSENTIAL (PRIMARY) HYPERTENSION Qualifiers: Hypertension type: essential hypertension Qualified Code(s): I10 - Essenti al (primary) hypertension (8) Pleural effusion Code(s): J90 - PLEURAL EFFUSION, NOT ELSEWHERE CLASSIFIED Assessment/Plan 10/26/2017 Normal LV size with mild LVH, normal LV fxn, normal RV size and fxn, mild LAE, mild MR, mild-mod TR, mild AL, RVSP 43 mmHg 11/19/2016 Lexiscan Myoview: Apical ischemia, LVEF 45-52% 10/06/2016 Echocardiography revealed mild to moderate LV systolic dysfunction, moderate TR, RVSP of 30-40 mmHg 1. Acute on chronic Hypoxic and Hypercapneic Respiratory Failure s/p tracheostomy 2. Acute on chronic LV Diastolic Heart Failure with pleural effusion and pulm HTN 3. Pneumonia, ARDS, (septic shock) 4. Paroxysmal atrial fibrillation with periods of rapid ventricular response post DCCV, [id number] score of 2 5. Obstructive Sleep Apnea/Obesity Hypoventilation Syndrome 6. HTN/HCVD 7. Hypercholesterolemia 8. CAD, angina pectoris 9. Bilateral cellulitis with h/o abscess s/p debridement 10. Bilateral hydrocele 11. Possible SBO PLAN: 1. Diuretics as needed with monitor renal function and electrolytes, replete K 2. Cont Lopressor 25 mg BID and Eliquis 5 mg BID 3. Vent and other issues per primary team 4. F/u GI input 5. Complete abx course
[2020-01-16] MEDS ORDERED: PT OWN MED DRAWER 7, Y5N ONE (11:06)
[2020-01-16] MEDS: AMINO ACIDS/PROTEIN HYDROLYS 30 ML LIQUID.PKT NGT SCH (11:08)
[2020-01-16] MEDS: APIXABAN 5 MG TABLET NGT SCH ×2 (11:08→21:46)
[2020-01-16] MEDS: MULTIVIT-MINERALS ORAL LIQUID NGT SCH (11:08)
[2020-01-16] MEDS: CHLORHEXIDINE GLUCONATE 0.12% 15ML CUP MM SCH ×2 (11:08→21:46)
[2020-01-16] MEDS: METOPROLOL TARTRATE 25 MG TABLET (FP) NGT SCH ×2 (11:08→21:46)
[2020-01-16] MEDS: PANTOPRAZOLE SODIUM 40 MG VIAL IVPUSH SCH (11:09)
[2020-01-16] MEDS: ASCORBIC ACID 500 MG/5 ML UNIT DOSE CUP NGT SCH (11:09)
[2020-01-16] MEDS: VANCOMYCIN 1 GRAM (PRE-DOCKED) 1,000 MG/250 ML BAG IVPB SCH ×2 (11:09→23:19)
--- NOTE | 2020-01-16 12:00 | PN ---
Progress Note, Physician History of Present Illness: Pt seen and examined at bedside. He is more awake and interactive. - Current Medication List Current Medications: Active Medications Amino Acids (Prosource No Carb Liquid Pkt) 30 ml NGT DAILY@0800 [facility] Last Admin: 01/16/20 11:08 Dose: 30 ml Documented by: Apixaban (Eliquis -) 5 mg NGT BID [facility] Last Admin: 01/16/20 11:08 Dose: 5 mg Documented by: Ascorbic Acid (Vitamin C Oral Solution -) 1,000 mg NGT DAILY [facility] Last Admin: 01/16/20 11:09 Dose: 1,000 mg Documented by: Chlorhexidine Gluconate (Peridex -) 15 ml MM BID [facility] Last Admin: 01/16/20 11:08 Dose: 15 ml Documented by: Vancomycin HCl (Vancomycin (Pre-Docked)) 1,000 mg in 250 mls @ 250 mls/hr IVPB BID [facility]; Protocol Last Admin: 01/16/20 11:09 Dose: 250 mls/hr Documented by: Metoprolol Tartrate (Lopressor -) 25 mg NGT BID [facility] Last Admin: 01/16/20 11:08 Dose: 25 mg Documented by: Multivitamins/Minerals (Certavite-Antioxidant Liquid) 15 ml NGT DAILY [facility] Last Admin: 01/16/20 11:08 Dose: 15 ml Documented by: Pantoprazole Sodium (Protonix Iv) 40 mg IVPUSH DAILY [facility] Last Admin: 01/16/20 11:09 Dose: 40 mg Documented by: - Objective Vital Signs: Vital Signs Temperature 98 F 01/16/20 05:00 Pulse Rate 92 H 01/16/20 11:28 Respiratory Rate 17 01/16/20 11:28 Blood Pressure 121/67 01/16/20 05:00 O2 Sat by Pulse Oximetry (%) 97 01/16/20 11:28 Constitutional: Yes: Calm Eyes: Yes: Conjunctiva Clear HENT: Yes: Atraumatic Neck: Yes: Supple Cardiovascular: Yes: S1, S2 Respiratory: Yes: Mechanically Ventilated Gastrointestinal: Yes: Soft, Abdomen, Obese Edema: LLE: Trace, RLE: Trace Integumentary: Yes: Venous Stasis Changes Neurological: Yes: Other (awake) Labs: CBC, BMP 01/16/20 07:55 01/16/20 07:55 INR, PTT INR 1.23 (0.83-1.09) H 01/10/20 13:50 Problem List - Problems (1) Anasarca Code(s): R60.1 - GENERALIZED EDEMA (2) Congestive heart failure (CHF) Code(s): I50.9 - HEART FAILURE, UNSPECIFIED Qualifiers: Heart failure type: diastolic Heart failure chronicity: acute on chronic Qualified Code(s): I50.33 - Acute on chronic diastolic (congestive) heart failure (3) Acute kidney injury Code(s): N17.9 - ACUTE KIDNEY FAILURE, UNSPECIFIED Assessment/Plan Current Medications Generic Name Dose Route Start Last Admin Trade Name Freq PRN Reason Stop Dose Admin Amino Acids 30 ml 01/12/20 08:00 01/16/20 11:08 Prosource No Carb Liquid Pkt NGT 30 ml DAILY@0800 [facility] Administration Apixaban 5 mg 01/12/20 11:30 01/16/20 11:08 Eliquis - NGT 5 mg BID [facility] Administration Ascorbic Acid 1,000 mg 01/12/20 11:30 01/16/20 11:09 Vitamin C Oral Solution - NGT 1,000 mg DAILY [facility] Administration Chlorhexidine Gluconate 15 ml 01/12/20 10:00 01/16/20 11:08 Peridex - MM 15 ml BID [facility] Administration Vancomycin HCl 1,000 mg in 250 mls @ 250 mls/hr 01/14/20 22:00 01/16/20 11:09 Vancomycin (Pre-Docked) IVPB 250 mls/hr BID [facility] Administration Protocol Metoprolol Tartrate 25 mg 01/12/20 11:26 01/16/20 11:08 Lopressor - NGT 25 mg BID [facility] Administration Multivitamins/Minerals 15 ml 01/12/20 11:32 01/16/20 11:08 Certavite-Antioxidant Liquid NGT 15 ml DAILY [facility] Administration Pantoprazole Sodium 40 mg 01/12/20 10:00 01/16/20 11:09 Protonix Iv IVPUSH 40 mg DAILY [facility] Administration Impression 1. MONIE 2. CHF acute 3. acute resp failure requiring intubation 4. atrial fibrillation 5. hx of htn 6. obesity 7. chronic smoker 8. hypokalemia Plan - replace potassium - lasix prn - repeat labs in am - cardio input appreciated - pulm follow up - cont vent support - monitor volume status
[2020-01-16] MEDS ORDERED: POTASSIUM CHLORIDE ORAL LIQUID 20 MEQ/15 ML PO ONE (12:15)
--- NOTE | 2020-01-16 12:25 | PN ---
Progress Note, Physician History of Present Illness: stable no new issues abd slightly distended - Current Medication List Current Medications: Active Medications Amino Acids (Prosource No Carb Liquid Pkt) 30 ml NGT DAILY@0800 [facility] Last Admin: 01/16/20 11:08 Dose: 30 ml Documented by: Apixaban (Eliquis -) 5 mg NGT BID [facility] Last Admin: 01/16/20 11:08 Dose: 5 mg Documented by: Ascorbic Acid (Vitamin C Oral Solution -) 1,000 mg NGT DAILY [facility] Last Admin: 01/16/20 11:09 Dose: 1,000 mg Documented by: Chlorhexidine Gluconate (Peridex -) 15 ml MM BID [facility] Last Admin: 01/16/20 11:08 Dose: 15 ml Documented by: Vancomycin HCl (Vancomycin (Pre-Docked)) 1,000 mg in 250 mls @ 250 mls/hr IVPB BID [facility]; Protocol Last Admin: 01/16/20 11:09 Dose: 250 mls/hr Documented by: Metoprolol Tartrate (Lopressor -) 25 mg NGT BID [facility] Last Admin: 01/16/20 11:08 Dose: 25 mg Documented by: Multivitamins/Minerals (Certavite-Antioxidant Liquid) 15 ml NGT DAILY [facility] Last Admin: 01/16/20 11:08 Dose: 15 ml Documented by: Pantoprazole Sodium (Protonix Iv) 40 mg IVPUSH DAILY [facility] Last Admin: 01/16/20 11:09 Dose: 40 mg Documented by: - Objective Vital Signs: Vital Signs Temperature 98 F 01/16/20 05:00 Pulse Rate 92 H 01/16/20 11:28 Respiratory Rate 17 01/16/20 11:28 Blood Pressure 121/67 01/16/20 05:00 O2 Sat by Pulse Oximetry (%) 97 01/16/20 11:28 Constitutional: Yes: No Distress, Calm Cardiovascular: Yes: S1, S2 Respiratory: Yes: Regular, Mechanically Ventilated, Other (s/p trach) Gastrointestinal: Yes: Normal Bowel Sounds Musculoskeletal: Yes: WNL Extremities: Yes: WNL Neurological: Yes: Alert, Oriented Psychiatric: Yes: Alert, Oriented Labs: CBC, BMP 01/16/20 07:55 01/16/20 07:55 INR, PTT INR 1.23 (0.83-1.09) H 01/10/20 13:50 Assessment/Plan 64 year old male with a past medical history of HTN, HLD, JUANA (not using CPAP), COPD, GERD, systolic congestive heart failure, paroxysmal atrial fibrillation (on Eliquis, s/p cardioversion 11/2016) who presented with 3 weeks of gradual onset anasarca, scrotal swelling and mild shortness of breath worse on exertion. He as found to have a PNA, on clinical exam signs of fluid overload, ?bilateral lower extremity cellulitis and bilateral hydrocele. 1. Acute Respiratory Failure 2. Fluid Overload/ 3.Bilateral Lower Extremity Cellulitis 4. Hydrocele 5. Hypertension 6. Atrial Fibrillation 7. Elevated Troponin 8. Rule Out COVID 9 pna plan continue abx will check vanco levels resp support rest as per the team naga ferguson
--- NOTE | 2020-01-16 12:42 | PN ---
Progress Note (short form) - Note Progress Note: PULMONARY Vented, awake. Currently on SIMV RR 8 PS 10. Thick secretions upon suctioning. Vital Signs Period Temp Pulse Resp BP Sys/Clements Pulse Ox Last 24 Hr 97.7 F-99 F 80-93 17-31 104-146/63-85 95-98 Gen: vented, awake Heart: RRR Lung: scattered rhonchi Abd: soft, nontender Ext: no edema CBC, BMP 01/16/20 07:55 01/16/20 07:55 Active Medications Amino Acids (Prosource No Carb Liquid Pkt) 30 ml NGT DAILY@0800 [facility] Last Admin: 01/16/20 11:08 Dose: 30 ml Documented by: Apixaban (Eliquis -) 5 mg NGT BID [facility] Last Admin: 01/16/20 11:08 Dose: 5 mg Documented by: Ascorbic Acid (Vitamin C Oral Solution -) 1,000 mg NGT DAILY [facility] Last Admin: 01/16/20 11:09 Dose: 1,000 mg Documented by: Chlorhexidine Gluconate (Peridex -) 15 ml MM BID [facility] Last Admin: 01/16/20 11:08 Dose: 15 ml Documented by: Vancomycin HCl (Vancomycin (Pre-Docked)) 1,000 mg in 250 mls @ 250 mls/hr IVPB BID [facility]; Protocol Last Admin: 01/16/20 11:09 Dose: 250 mls/hr Documented by: Metoprolol Tartrate (Lopressor -) 25 mg NGT BID [facility] Last Admin: 01/16/20 11:08 Dose: 25 mg Documented by: Multivitamins/Minerals (Certavite-Antioxidant Liquid) 15 ml NGT DAILY [facility] Last Admin: 01/16/20 11:08 Dose: 15 ml Documented by: Pantoprazole Sodium (Protonix Iv) 40 mg IVPUSH DAILY [facility] Last Admin: 01/16/20 11:09 Dose: 40 mg Documented by: A/P Acute on Chronic Hypoxic and Hypercapneic Respiratory Failure s/p Tracheostomy Pneumonia ARDS Septic Shock resolving Acute on Chronic Diastolic Heart Failure Pulmonary HTN Paroxysmal Atrial Fibrillation CAD Acute Kidney Injury Likely COPD JUANA/OHS HTN Hypercholesterolemia - antibiotics per ID - rate control - continue anticoagulation - spontaneous breathing trials as tolerated - PMV eval - titrate FiO2, PEEP to keep SpO2 >90% - monitor urine output, creatinine - enteral feeds - DVT/GI prophylaxis
[2020-01-16] MEDS ORDERED: METOPROLOL TARTRATE 5 MG/5 ML VIAL IVPB PRN (17:53)
[2020-01-16] MEDS ORDERED: KCL 10 MEQ IVPB 10 MEQ/100 ML INFUS.BAG IVPB SCH (18:00)
--- NOTE | 2020-01-16 18:15 | PN ---
Progress Note (short form) - Note Progress Note: GI CONSULT DICTATED
--- NOTE | 2020-01-16 19:29 | CONS ---
DATE OF CONSULTATION: DATE OF DICTATION: 01/16/2020 GASTROINTESTINAL CONSULTATION HISTORY OF PRESENT ILLNESS: The patient is a 64-year-old male with a past medical history of hypertension, hyperlipidemia, JUANA, not using CPAP, COPD, reflux disease, congestive heart failure, paroxysmal atrial fibrillation on Eliquis, cardioversion in 2017, who was admitted to the hospital with bilateral cellulitis, acute CHF, and pneumonia. This consultation is for abnormal abdominal x-ray, possible developing small bowel obstruction. He does not offer any further history. PAST MEDICAL AND SURGICAL HISTORY: As listed in the HPI. ALLERGIES: No known drug allergies. SOCIAL HISTORY: Does not smoke, drink, or use drugs. FAMILY HISTORY: Noncontributory. MEDICATION: Home medications were reviewed. REVIEW OF SYSTEMS: Negative for nausea, vomiting, hematemesis, melena, hematochezia. PHYSICAL EXAMINATION: Vital Signs: Temperature 98, pulse 93, blood pressure 130/80, respiratory rate 18, saturation of oxygen 95% on mechanical ventilation. Cardiovascular: S1, S2. Lungs: Coarse bilaterally, bilateral lung anteriorly. Abdomen: Mildly distended, nontender, and mildly tympanitic. Extremities: Lower extremities with edema. Of note, tracheostomy is in place. LABORATORY: White blood cell count 8.8, hemoglobin and hematocrit 11/40, MCV 81, platelet count 99, INR 1.23. Sodium 141, potassium 3.4, BUN/creatinine 20/0.4, glucose 131, total bilirubin 2.4, AST 16, ALT 33, alkaline phosphatase 98. COVID is negative. Cultures in sputum were positive for strep agalactia group B. Blood cultures remain negative. He had an abdominal x-ray done today which revealed possible developing small bowel obstruction. A CT scan was recommended. IMPRESSION: Abdominal distention, imaging findings which may indicate developing small bowel obstruction. RECOMMENDATION: Follow up CT scan of the abdomen and pelvis for now n.p.o., IV fluids, surgery evaluation. Further recommendations pending CT scan results. DO AKIL [id number]
[2020-01-16] MEDS: DEXTROSE 5%-0.45% SALINE 1,000 ML IV SCH (20:04)
[2020-01-17] MEDS: AMINO ACIDS/PROTEIN HYDROLYS 30 ML LIQUID.PKT NGT SCH (09:52)
[2020-01-17] MEDS: VANCOMYCIN 1 GRAM (PRE-DOCKED) 1,000 MG/250 ML BAG IVPB SCH ×3 (09:56→21:53)
[2020-01-17] MEDS: PANTOPRAZOLE SODIUM 40 MG VIAL IVPUSH SCH (09:58)
--- NOTE | 2020-01-17 10:35 | PN ---
Progress Note, Physician Chief Complaint: Events noted Remains on ventilator via trache Awake History of Present Illness: Patient was seen and examined. On mechanical ventilator via trache. Chart was reviewed - Current Medication List Current Medications: Active Medications Amino Acids (Prosource No Carb Liquid Pkt) 30 ml NGT DAILY@0800 [facility] Last Admin: 01/17/20 09:52 Dose: Not Given Documented by: Apixaban (Eliquis -) 5 mg NGT BID [facility] Last Admin: 01/16/20 21:46 Dose: Not Given Documented by: Ascorbic Acid (Vitamin C Oral Solution -) 1,000 mg NGT DAILY [facility] Last Admin: 01/16/20 11:09 Dose: 1,000 mg Documented by: Chlorhexidine Gluconate (Peridex -) 15 ml MM BID [facility] Last Admin: 01/16/20 21:46 Dose: Not Given Documented by: Vancomycin HCl (Vancomycin (Pre-Docked)) 1,000 mg in 250 mls @ 250 mls/hr IVPB BID [facility]; Protocol Last Admin: 01/16/20 23:19 Dose: 250 mls/hr Documented by: Dextrose/Sodium Chloride (D5-1/2ns -) 1,000 mls @ 75 mls/hr IV ASDIR [facility] Last Admin: 01/16/20 20:04 Dose: 75 mls/hr Documented by: Metoprolol Tartrate (Lopressor -) 25 mg NGT BID [facility] Last Admin: 01/16/20 21:46 Dose: Not Given Documented by: Metoprolol Tartrate (Lopressor Injection -) 5 mg IVPB Q4H PRN PRN Reason: HYPERTENSION Multivitamins/Minerals (Certavite-Antioxidant Liquid) 15 ml NGT DAILY [facility] Last Admin: 01/16/20 11:08 Dose: 15 ml Documented by: Pantoprazole Sodium (Protonix Iv) 40 mg IVPUSH DAILY [facility] Last Admin: 01/17/20 09:58 Dose: 40 mg Documented by: - Objective Vital Signs: Vital Signs Temperature 98.0 F 01/17/20 09:00 Pulse Rate 86 01/17/20 09:00 Respiratory Rate 20 01/17/20 09:00 Blood Pressure 129/80 01/17/20 09:00 O2 Sat by Pulse Oximetry (%) 96 01/17/20 08:15 Neck: Yes: Supple Cardiovascular: Yes: Regular Rate and Rhythm, S1, S2 Respiratory: Yes: Diminished, Mechanically Ventilated (trached) Gastrointestinal: No: Tenderness Edema: No Labs: CBC, BMP 01/16/20 07:55 01/16/20 07:55 Problem List - Problems (1) Congestive heart failure (CHF) Code(s): I50.9 - HEART FAILURE, UNSPECIFIED Qualifiers: Heart failure type: diastolic Heart failure chronicity: acute on chronic Qualified Code(s): I50.33 - Acute on chronic diastolic (congestive) heart fail ure (2) Pleural effusion Code(s): J90 - PLEURAL EFFUSION, NOT ELSEWHERE CLASSIFIED (3) Pneumonia Code(s): J18.9 - PNEUMONIA, UNSPECIFIED ORGANISM Qualifiers: Pneumonia type: due to unspecified organism Laterality: right Lung location: lower lobe of lung Qualified Code(s): J18.9 - Pneumonia, unspecified organism (4) Acute hypercapnic respiratory failure Code(s): J96.02 - ACUTE RESPIRATORY FAILURE WITH HYPERCAPNIA (5) Acute respiratory failure with hypoxia and hypercarbia Code(s): J96.01 - ACUTE RESPIRATORY FAILURE WITH HYPOXIA; J96.02 - ACUTE RESPIRATORY FAILURE WITH HYPERCAPNIA (6) Atrial fibrillation Code(s): I48.91 - UNSPECIFIED ATRIAL FIBRILLATION Qualifiers: Atrial fibrillation type: paroxysmal Qualified Code(s): I48.0 - Paroxysmal atrial fibrillation (7) COPD (chronic obstructive pulmonary disease) Code(s): J44.9 - CHRONIC OBSTRUCTIVE PULMONARY DISEASE, UNSPECIFIED Qualifiers: COPD type: unspecified COPD Qualified Code(s): J44.9 - Chronic obstructive pulmonary disease, unspecified (8) Hypertension Code(s): I10 - ESSENTIAL (PRIMARY) HYPERTENSION Qualifiers: Hypertension type: essential hypertension Qualified Code(s): I10 - Essential (primary) hypertension (9) Respiratory failure requiring intubation Code(s): J96.90 - RESPIRATORY FAILURE, UNSP, UNSP W HYPOXIA OR HYPERCAPNIA (10) Sleep apnea Code(s): G47.30 - SLEEP APNEA, UNSPECIFIED Qualifiers: Sleep apnea type: obstructive Qualified Code(s): G47.33 - Obstructive sleep apnea (adult) (pediatric) (11) Systolic and diastolic CHF, chronic Code(s): I50.42 - CHRONIC COMBINED SYSTOLIC AND DIASTOLIC HRT FAIL Assessment/Plan 1. Acute on chronic Hypoxic and Hypercapneic Respiratory Failure, currently intubated 2. Acute on chronic LV Diastolic Heart Failure with pleural effusion 3. Pneumonia (septic shock) 4. Paroxysmal atrial fibrillation with periods of rapid ventricular response post DCCV, [id number] score of 2 5. Obstructive Sleep Apnea/Obesity 6. HTN/HCVD 7. Hypercholesterolemia 8. CAD, angina pectoris 9. Bilateral cellulitis with h/o abscess s/p debridement 10. Bilateral hydrocele PLAN: 1. Vent support via trache 2. DVT and GI prophylaxis and enteral feeds 3. Diuretics as needed with monitor renal function and electrolytes 4. Continue Lopressor 25 mg BID and Eliquis 5 mg BID (via NGT) Guarded. Khalif Correa MD
--- NOTE | 2020-01-17 10:50 | PN ---
Progress Note (short form) - Note Progress Note: PULMONARY Vented, awake. Currently on SIMV RR 8 PS 10. No fevers. Vital Signs Period Temp Pulse Resp BP Sys/Clements Pulse Ox Last 24 Hr 98.0 F-99.0 F 82-95 17-20 106-131/59-80 95-97 Gen: vented, awake Heart: RRR Lung: scattered rhonchi Abd: soft, nontender Ext: no edema CBC, BMP 01/16/20 07:55 01/16/20 07:55 Active Medications Amino Acids (Prosource No Carb Liquid Pkt) 30 ml NGT DAILY@0800 [facility] Last Admin: 01/17/20 09:52 Dose: Not Given Documented by: Apixaban (Eliquis -) 5 mg NGT BID [facility] Last Admin: 01/16/20 21:46 Dose: Not Given Documented by: Ascorbic Acid (Vitamin C Oral Solution -) 1,000 mg NGT DAILY [facility] Last Admin: 01/16/20 11:09 Dose: 1,000 mg Documented by: Chlorhexidine Gluconate (Peridex -) 15 ml MM BID [facility] Last Admin: 01/16/20 21:46 Dose: Not Given Documented by: Vancomycin HCl (Vancomycin (Pre-Docked)) 1,000 mg in 250 mls @ 250 mls/hr IVPB BID [facility]; Protocol Last Admin: 01/16/20 23:19 Dose: 250 mls/hr Documented by: Dextrose/Sodium Chloride (D5-1/2ns -) 1,000 mls @ 75 mls/hr IV ASDIR [facility] Last Admin: 01/16/20 20:04 Dose: 75 mls/hr Documented by: Metoprolol Tartrate (Lopressor -) 25 mg NGT BID [facility] Last Admin: 01/16/20 21:46 Dose: Not Given Documented by: Metoprolol Tartrate (Lopressor Injection -) 5 mg IVPB Q4H PRN PRN Reason: HYPERTENSION Multivitamins/Minerals (Certavite-Antioxidant Liquid) 15 ml NGT DAILY [facility] Last Admin: 01/16/20 11:08 Dose: 15 ml Documented by: Pantoprazole Sodium (Protonix Iv) 40 mg IVPUSH DAILY [facility] Last Admin: 01/17/20 09:58 Dose: 40 mg Documented by: A/P Acute on Chronic Hypoxic and Hypercapneic Respiratory Failure s/p Tracheostomy Pneumonia ARDS Septic Shock resolving Acute on Chronic Diastolic Heart Failure Pulmonary HTN Paroxysmal Atrial Fibrillation CAD Acute Kidney Injury Likely COPD JUANA/OHS HTN Hypercholesterolemia - antibiotics per ID - rate control - continue anticoagulation - spontaneous breathing trials as tolerated - PMV eval - titrate FiO2, PEEP to keep SpO2 >90% - monitor urine output, creatinine - enteral feeds - DVT/GI prophylaxis
[2020-01-17] MEDS: MULTIVIT-MINERALS ORAL LIQUID NGT SCH (11:01)
[2020-01-17] MEDS: METOPROLOL TARTRATE 25 MG TABLET (FP) NGT SCH (11:01)
[2020-01-17] MEDS: APIXABAN 5 MG TABLET NGT SCH (11:01)
[2020-01-17] MEDS: CHLORHEXIDINE GLUCONATE 0.12% 15ML CUP MM SCH ×2 (11:02→22:08)
[2020-01-17] MEDS: ASCORBIC ACID 500 MG/5 ML UNIT DOSE CUP NGT SCH (11:02)
--- NOTE | 2020-01-17 13:16 | PN ---
Progress Note, Physician Chief Complaint: Acute on Chronic Hypoxic and Hypercapneic Respiratory Failure s/p Tracheostomy Pneumonia ARDS Septic Shock Acute on Chronic Diastolic Heart Failure Pulmonary HTN Paroxysmal Atrial Fibrillation CAD Acute Kidney Injury COPD JUANA/OHS SBO History of Present Illness: NAD Denies any pain On Mech vent SIMV of 6, tolerating well SBO on CTAP yesterday Seen by surgery Repeat labs pending, repeat AXR pending - Current Medication List Current Medications: Active Medications Amino Acids (Prosource No Carb Liquid Pkt) 30 ml NGT DAILY@0800 [facility] Last Admin: 01/17/20 09:52 Dose: Not Given Documented by: Apixaban (Eliquis -) 5 mg NGT BID [facility] Last Admin: 01/17/20 11:01 Dose: Not Given Documented by: Ascorbic Acid (Vitamin C Oral Solution -) 1,000 mg NGT DAILY [facility] Last Admin: 01/17/20 11:02 Dose: Not Given Documented by: Chlorhexidine Gluconate (Peridex -) 15 ml MM BID [facility] Last Admin: 01/17/20 11:02 Dose: Not Given Documented by: Vancomycin HCl (Vancomycin (Pre-Docked)) 1,000 mg in 250 mls @ 250 mls/hr IVPB BID [facility]; Protocol Last Admin: 01/17/20 10:47 Dose: 250 mls/hr Documented by: Dextrose/Sodium Chloride (D5-1/2ns -) 1,000 mls @ 75 mls/hr IV ASDIR [facility] Last Admin: 01/16/20 20:04 Dose: 75 mls/hr Documented by: Metoprolol Tartrate (Lopressor -) 25 mg NGT BID [facility] Last Admin: 01/17/20 11:01 Dose: Not Given Documented by: Metoprolol Tartrate (Lopressor Injection -) 5 mg IVPB Q4H PRN PRN Reason: HYPERTENSION Multivitamins/Minerals (Certavite-Antioxidant Liquid) 15 ml NGT DAILY [facility] Last Admin: 01/17/20 11:01 Dose: Not Given Documented by: Pantoprazole Sodium (Protonix Iv) 40 mg IVPUSH DAILY [facility] Last Admin: 01/17/20 09:58 Dose: 40 mg Documented by: - Objective Vital Signs: Vital Signs Temperature 98.0 F 01/17/20 12:57 Pulse Rate 96 H 01/17/20 12:57 Respiratory Rate 17 01/17/20 12:57 Blood Pressure 129/82 01/17/20 12:57 O2 Sat by Pulse Oximetry (%) 93 L 01/17/20 12:57 Constitutional: Yes: Well Nourished, No Distress, Calm, Obese Cardiovascular: Yes: Regular Rate and Rhythm Respiratory: Yes: Regular, Mechanically Ventilated Gastrointestinal: Yes: Soft, Abdomen, Obese, Hypoactive Bowel Sounds Genitourinary: Yes: Incontinence Musculoskeletal: Yes: Muscle Weakness Edema: No Peripheral Pulses WNL: Yes Labs: CBC, BMP 01/16/20 07:55 01/16/20 07:55 INR, PTT INR 1.23 (0.83-1.09) H 01/10/20 13:50 Problem List - Problems (1) SBO (small bowel obstruction) Assessment/Plan: -GI consult appreciated -Surgery consult -NPO -AXR today and daily in AM to evaluate SBO -Pt denies any pain/N/V Problems reviewed: Yes Code(s): K56.609 - UNSP INTESTNL OBST, UNSP TO PARTIAL VERSUS COMPLETE OBST (2) Morbid obesity Problems reviewed: Yes Code(s): E66.01 - MORBID (SEVERE) OBESITY DUE TO EXCESS CALORIES (3) Pneumonia Assessment/Plan: -ID consult appreciated -Afebrile -Cultures: Microbiology 01/12/20 12:43 Blood Culture - Final Blood - Peripheral Venous NO GROWTH AFTER 5 DAYS INCUBATION 01/12/20 12:48 Blood Culture - Final Blood - Peripheral Venous NO GROWTH AFTER 5 DAYS INCUBATION -SC:MRSA -On IV Vanco Problems reviewed: Yes Code(s): J18.9 - PNEUMONIA, UNSPECIFIED ORGANISM Qualifiers: Pneumonia type: due to unspecified organism Laterality: right Lung location: lower lobe of lung Qualified Code(s): J18.9 - Pneumonia, unspecified organism (4) Atrial fibrillation Assessment/Plan: -Start Lovenox BID until able to use GT Problems reviewed: Yes Code(s): I48.91 - UNSPECIFIED ATRIAL FIBRILLATION Qualifiers: Atrial fibrillation type: paroxysmal Qualified Code(s): I48.0 - Paroxysmal atrial fibrillation (5) Respiratory failure with hypoxia and hypercapnia Assessment/Plan: -Pulmonary on board -S/P trach -Mech vent -Wean as tolerated -LTAC placement upon discharge Problems reviewed: Yes Code(s): J96.91 - RESPIRATORY FAILURE, UNSPECIFIED WITH HYPOXIA; J96.92 - RESPIRATORY FAILURE, UNSPECIFIED WITH HYPERCAPNIA Qualifiers: Chronicity: acute on chronic Qualified Code(s): J96.21 - Acute and chronic respiratory failure with hypoxia; J96.22 - Acute and chronic respiratory failure with hypercapnia Assessment/Plan See problem list
--- NOTE | 2020-01-17 13:53 | PN ---
Progress Note, Physician History of Present Illness: stable no new issues - Current Medication List Current Medications: Active Medications Amino Acids (Prosource No Carb Liquid Pkt) 30 ml NGT DAILY@0800 [facility] Last Admin: 01/17/20 09:52 Dose: Not Given Documented by: Apixaban (Eliquis -) 5 mg NGT BID [facility] Last Admin: 01/17/20 11:01 Dose: Not Given Documented by: Ascorbic Acid (Vitamin C Oral Solution -) 1,000 mg NGT DAILY [facility] Last Admin: 01/17/20 11:02 Dose: Not Given Documented by: Chlorhexidine Gluconate (Peridex -) 15 ml MM BID [facility] Last Admin: 01/17/20 11:02 Dose: Not Given Documented by: Vancomycin HCl (Vancomycin (Pre-Docked)) 1,000 mg in 250 mls @ 250 mls/hr IVPB BID [facility]; Protocol Last Admin: 01/17/20 10:47 Dose: 250 mls/hr Documented by: Dextrose/Sodium Chloride (D5-1/2ns -) 1,000 mls @ 75 mls/hr IV ASDIR [facility] Last Admin: 01/16/20 20:04 Dose: 75 mls/hr Documented by: Metoprolol Tartrate (Lopressor -) 25 mg NGT BID [facility] Last Admin: 01/17/20 11:01 Dose: Not Given Documented by: Metoprolol Tartrate (Lopressor Injection -) 5 mg IVPB Q4H PRN PRN Reason: HYPERTENSION Multivitamins/Minerals (Certavite-Antioxidant Liquid) 15 ml NGT DAILY [facility] Last Admin: 01/17/20 11:01 Dose: Not Given Documented by: Pantoprazole Sodium (Protonix Iv) 40 mg IVPUSH DAILY [facility] Last Admin: 01/17/20 09:58 Dose: 40 mg Documented by: - Objective Vital Signs: Vital Signs Temperature 98.0 F 01/17/20 12:57 Pulse Rate 96 H 01/17/20 12:57 Respiratory Rate 17 01/17/20 12:57 Blood Pressure 129/82 01/17/20 12:57 O2 Sat by Pulse Oximetry (%) 93 L 01/17/20 12:57 Constitutional: Yes: No Distress, Calm Respiratory: Yes: Mechanically Ventilated, Other Gastrointestinal: Yes: Normal Bowel Sounds, Soft Musculoskeletal: Yes: WNL Extremities: Yes: WNL Neurological: Yes: Alert Psychiatric: Yes: Alert Labs: CBC, BMP 01/16/20 07:55 01/16/20 07:55 INR, PTT INR 1.23 (0.83-1.09) H 01/10/20 13:50 Assessment/Plan Problem List - Problems (1) Edema of scrotum Code(s): N50.89 - OTHER SPECIFIED DISORDERS OF THE MALE GENITAL ORGANS (2) Morbid obesity Code(s): E66.01 - MORBID (SEVERE) OBESITY DUE TO EXCESS CALORIES (3) Acute on chronic diastolic (congestive) heart failure Code(s): I50.33 - ACUTE ON CHRONIC DIASTOLIC (CONGESTIVE) HEART FAILURE (4) Acute respiratory failure requiring reintubation Code(s): J96.00 - ACUTE RESPIRATORY FAILURE, UNSP W HYPOXIA OR HYPERCAPNIA (5) Afib Code(s): I48.91 - UNSPECIFIED ATRIAL FIBRILLATION Qualifiers: Atrial fibrillation type: paroxysmal Qualified Code(s): I48.0 - Paroxysmal atrial fibrillation Assessment/Plan Acute respiratory failure s/p trach on MV PNA Ileus/ pseudoobstruction CHF b/l LE Cellulitis b/l Hydrocele MONIE Paroxysmal AFIB COPD JUANA CAD HTN HLD abx resp support asp precautions rest as per the team
[2020-01-17] MEDS ORDERED: ENOXAPARIN NA (PORCINE) 120 MG/0.8 ML DISP.SYRIN SQ SCH (15:15)
--- NOTE | 2020-01-17 16:15 | PN ---
Progress Note, Physician History of Present Illness: Pt seen and examined at bedside. He is more awake. he remains on vent. - Current Medication List Current Medications: Active Medications Amino Acids (Prosource No Carb Liquid Pkt) 30 ml NGT DAILY@0800 [facility] Last Admin: 01/17/20 09:52 Dose: Not Given Documented by: Apixaban (Eliquis -) 5 mg NGT BID [facility] Last Admin: 01/17/20 11:01 Dose: Not Given Documented by: Ascorbic Acid (Vitamin C Oral Solution -) 1,000 mg NGT DAILY [facility] Last Admin: 01/17/20 11:02 Dose: Not Given Documented by: Chlorhexidine Gluconate (Peridex -) 15 ml MM BID [facility] Last Admin: 01/17/20 11:02 Dose: Not Given Documented by: Enoxaparin Sodium (Lovenox -) 110 mg SQ Q12H [facility] Vancomycin HCl (Vancomycin (Pre-Docked)) 1,000 mg in 250 mls @ 250 mls/hr IVPB BID [facility]; Protocol Last Admin: 01/17/20 10:47 Dose: 250 mls/hr Documented by: Dextrose/Sodium Chloride (D5-1/2ns -) 1,000 mls @ 75 mls/hr IV ASDIR [facility] Last Admin: 01/16/20 20:04 Dose: 75 mls/hr Documented by: Metoprolol Tartrate (Lopressor -) 25 mg NGT BID [facility] Last Admin: 01/17/20 11:01 Dose: Not Given Documented by: Metoprolol Tartrate (Lopressor Injection -) 5 mg IVPB Q4H PRN PRN Reason: HYPERTENSION Multivitamins/Minerals (Certavite-Antioxidant Liquid) 15 ml NGT DAILY [facility] Last Admin: 01/17/20 11:01 Dose: Not Given Documented by: Pantoprazole Sodium (Protonix Iv) 40 mg IVPUSH DAILY [facility] Last Admin: 01/17/20 09:58 Dose: 40 mg Documented by: - Objective Vital Signs: Vital Signs Temperature 98.0 F 01/17/20 12:57 Pulse Rate 96 H 01/17/20 12:57 Respiratory Rate 21 H 01/17/20 14:16 Blood Pressure 129/82 01/17/20 12:57 O2 Sat by Pulse Oximetry (%) 95 01/17/20 14:16 Constitutional: Yes: Calm Eyes: Yes: Conjunctiva Clear HENT: Yes: Atraumatic Neck: Yes: Supple Cardiovascular: Yes: S1, S2 Respiratory: Yes: Mechanically Ventilated Gastrointestinal: Yes: Distention Genitourinary: Yes: Hilario Present Edema: No Neurological: Yes: Other (awake) Labs: CBC, BMP 01/16/20 07:55 01/16/20 07:55 INR, PTT INR 1.23 (0.83-1.09) H 01/10/20 13:50 Problem List - Problems (1) Anasarca Code(s): R60.1 - GENERALIZED EDEMA (2) Congestive heart failure (CHF) Code(s): I50.9 - HEART FAILURE, UNSPECIFIED Qualifiers: Heart failure type: diastolic Heart failure chronicity: acute on chronic Qualified Code(s): I50.33 - Acute on chronic diastolic (congestive) heart failure (3) Acute kidney injury Code(s): N17.9 - ACUTE KIDNEY FAILURE, UNSPECIFIED Assessment/Plan Current Medications Generic Name Dose Route Start Last Admin Trade Name Taylor PRN Reason Stop Dose Admin Amino Acids 30 ml 01/12/20 08:00 01/17/20 09:52 Prosource No Carb Liquid Pkt NGT Not Given DAILY@0800 [facility] Apixaban 5 mg 01/12/20 11:30 01/17/20 11:01 Eliquis - NGT Not Given BID [facility] Ascorbic Acid 1,000 mg 01/12/20 11:30 01/17/20 11:02 Vitamin C Oral Solution - NGT Not Given DAILY [facility] Chlorhexidine Gluconate 15 ml 01/12/20 10:00 01/17/20 11:02 Peridex - MM Not Given BID [facility] Enoxaparin Sodium 110 mg 01/17/20 15:15 Lovenox - SQ Q12H [facility] Vancomycin HCl 1,000 mg in 250 mls @ 250 mls/hr 01/14/20 22:00 01/17/20 10:47 Vancomycin (Pre-Docked) IVPB 250 mls/hr BID [facility] Administration Protocol Dextrose/Sodium Chloride 1,000 mls @ 75 mls/hr 01/16/20 20:00 01/16/20 20:04 D5-1/2ns - IV 75 mls/hr ASDIR [facility] Administration Metoprolol Tartrate 25 mg 01/12/20 11:26 01/17/20 11:01 Lopressor - NGT Not Given BID [facility] Metoprolol Tartrate 5 mg 01/16/20 17:53 Lopressor Injection - IVPB Q4H PRN HYPERTENSION Multivitamins/Minerals 15 ml 01/12/20 11:32 01/17/20 11:01 Certavite-Antioxidant Liquid NGT Not Given DAILY [facility] Pantoprazole Sodium 40 mg 01/12/20 10:00 01/17/20 09:58 Protonix Iv IVPUSH 40 mg DAILY [facility] Administration Impression 1. MONIE 2. CHF acute 3. acute resp failure requiring intubation 4. atrial fibrillation 5. hx of htn 6. obesity 7. chronic smoker 8. hypokalemia 9. partial sbo Plan - fluids while npo - lasix on hold - repeat labs in am - vent support - monitor volume status
[2020-01-17] MEDS ORDERED: PT OWN MED DRAWER 7, Y5N ONE ×2 (16:34→22:07)
[2020-01-17 17:02] LABS: BASO % 0.6 % (0-2.0); EOS % 5.8 % (0-4.5); HEMATOCRIT 40.2 % (35.4-49); HEMOGLOBIN 12.1 GM/dL (11.7-16.9); MCH 24.6 pg (25.7-33.7); MCHC 30.1 g/dl (32.0-35.9); MEAN CELL VOLUME 81.7 fl (80-96); MONO % 7.7 % (3.8-10.2); NEUT % 73.9 % (42.8-82.8); PLATELET COUNT 113 K/MM3 (134-434); RBC 4.92 M/mm3 (4.00-5.60); RDW 23.3 % (11.9-15.9); WHITE BLOOD COUNT 8.6 K/mm3 (4.0-10.0)
[2020-01-17 17:48] LABS: ALBUMIN 2.2 g/dl (3.4-5.0); BLOOD UREA NITROGEN 14.2 mg/dL (7-18); CALCIUM 8.4 mg/dL (8.5-10.1); CREATININE 0.4 mg/dL (0.55-1.3); POTASSIUM 3.3 mmol/L (3.5-5.1); TOT PROT 5.3 g/dl (6.4-8.2)
[2020-01-17 18:51] LABS: ANISOCYTOSIS 2+
[2020-01-17] MEDS: DEXTROSE 5%-0.45% SALINE 1,000 ML IV SCH (21:48)
--- NOTE | 2020-01-17 22:40 | CONSULT ---
- Consultation REQUESTING PROVIDER: Jesenia Cabezas PREPPER CONSULT REQUEST: We have been asked to surgically evaluate this patient for abdominal distention and possible SBO PCP:Ene Ornelas HISTORY OF PRESENT ILLNESS: TAMERA who is a 64 y/o male w/# comorbid medical conditions who was admitted w/na exacerbation of CHF; he was admitted 12/16/2019 w/SOB and scrotal swelling; he was in the ICU and had a trach done and is still vent dependent; he had been getting TF but was noted to have abdominal distention; he is having bowel movements. He is COVID negative. PMHx: CHF/HTN/pulmonary disease PSHx: none Home Medications Medication Instructions Recorded Ascorbate Calcium [Vitamin C] 1,000 mg PO DAILY 10/05/16 Fulton-3/Dha/Epa/Fish Oil [Fulton 3 350 mg PO DAILY 10/05/16 500 Softgel] Apixaban [Eliquis -] 5 mg PO BID #30 tablet 10/23/16 Multivit-Min/Folic/Vit K/Lycop 1 each PO DAILY 11/17/17 [Men's Multivitamin Caplet] Lisinopril [Prinivil] 2.5 mg PO DAILY #30 tablet 11/12/18 Metoprolol Tartrate [Lopressor -] 50 mg PO BID tablet 11/12/18 Pantoprazole Sodium [Protonix -] 40 mg PO DAILY #30 tablet.ec 11/12/18 Fluticasone/Vilanterol [Breo 1 inhaler IH DAILY 02/08/19 Ellipta 100-25 Mcg INH] Hydrochlorothiazide 1 cap PO DAILY 02/08/19 Allergies Allergy/AdvReac Type Severity Reaction Status Date / Time No Known Allergies Allergy Verified 11/06/18 18:58 REVIEW OF SYSTEMS: CONSTITUTIONAL: Absent: fever, chills, diaphoresis, generalized weakness, malaise, loss of appetite, weight change CARDIOVASCULAR: Absent: chest pain, syncope, palpitations, irregular heart rate, lightheadedness, Present:peripheral edema RESPIRATORY: Present: cough, shortness of breath, dyspnea with exertion, wheezing, stridor, Absent: hemoptysis GASTROINTESTINAL: Absent: abdominal pain, abdominal distension, nausea, vomiting, diarrhea, constipation, melena, hematochezia GENITOURINARY: Absent: dysuria, frequency, urgency, hesitancy, hematuria, flank pain, genital pain MUSCULOSKELETAL: Absent: myalgia, arthralgia, joint swelling, back pain, neck pain SKIN: Absent: rash, itching, pallor HEMATOLOGIC/IMMUNOLOGIC: Absent: easy bleeding, easy bruising, lymphadenopathy NEUROLOGIC: Absent: headache, focal weakness, paresthesias, dizziness, unsteady gait, seizure, mental status changes, bladder or bowel incontinence PSYCHIATRIC: Absent: anxiety, depression, suicidal or homicidal ideation, hallucinations. PHYSICAL EXAM: GENERAL: Awake, alert, and fully oriented, in no acute distress on vent via trach. HEAD: Normal with no signs of trauma. EYES: PERRL, sclera anicteric, conjunctiva clear. NECK: Normal ROM, supple without lymphadenopathy, JVD, or masses. ABDOMEN: Soft, nontender, obese, distended and tympanitic, sluggish bowel sounds, no guarding, no rebound, no masses. No organomegaly. MUSCULOSKELETAL: Normal ROM at all joints. No bony deformities or tenderness. No CVA tenderness. UPPER EXTREMITIES: 2+ pulses, warm, well-perfused. No cyanosis. Cap refill <2 seconds. No peripheral edema. LOWER EXTREMITIES: 2+ pulses, warm, well-perfused. No calf tenderness. Peripheral edema is present. NEUROLOGICAL: Normal speech, gait not observed. PSYCH: Cooperative. Good eye contact. Appropriate mood and affect. SKIN: Warm, dry, normal turgor, no rashes or lesions noted. Vital Signs Temperature 97.0 F L 01/17/20 18:00 Pulse Rate 93 H 01/17/20 18:00 Respiratory Rate 27 H 01/17/20 21:20 Blood Pressure 148/87 01/17/20 18:00 O2 Sat by Pulse Oximetry (%) 96 01/17/20 21:20 Lab Results WBC 8.6 K/mm3 (4.0-10.0) 01/17/20 16:20 RBC 4.92 M/mm3 (4.00-5.60) 01/17/20 16:20 Hgb 12.1 GM/dL (11.7-16.9) 01/17/20 16:20 Hct 40.2 % (35.4-49) 01/17/20 16:20 MCV 81.7 fl (80-96) 01/17/20 16:20 MCHC 30.1 g/dl (32.0-35.9) L 01/17/20 16:20 RDW 23.3 % (11.9-15.9) H 01/17/20 16:20 Plt Count 113 K/MM3 (134-434) L 01/17/20 16:20 INR 1.23 (0.83-1.09) H 01/10/20 13:50 Sodium 139 mmol/L (136-145) 01/17/20 16:20 Potassium 3.3 mmol/L (3.5-5.1) L 01/17/20 16:20 Chloride 100 mmol/L (98-107) 01/17/20 16:20 Carbon Dioxide 32 mmol/L (21-32) 01/17/20 16:20 Anion Gap 7 MMOL/L (8-16) L 01/17/20 16:20 BUN 14.2 mg/dL (7-18) 01/17/20 16:20 Creatinine 0.4 mg/dL (0.55-1.3) L 01/17/20 16:20 Random Glucose 105 mg/dL (74-106) 01/17/20 16:20 Calcium 8.4 mg/dL (8.5-10.1) L 01/17/20 16:20 Blood Type A POSITIVE 01/10/20 10:20 Antibody Screen Negative 01/10/20 10:20 Imaging w/u reviewed IMP: doubt SBO; most likely ileus due to underlying co morbid conditions. PLAN: NPO(stop tube feeding); IVF; serial axr's; will f/u. replete K and phosphorus if low; will f/u.. Олег Gonzalez MD FACS
[2020-01-18] MEDS ORDERED: PT OWN MED DRAWER 7, Y5N ONE ×3 (01:46→21:45)
[2020-01-18] MEDS ORDERED: ENOXAPARIN NA (PORCINE) 80 MG/0.8 ML DISP.SYRIN SQ ONE ×2 (05:36→17:00)
[2020-01-18] MEDS ORDERED: ENOXAPARIN NA (PORCINE) 30 MG/0.3 ML DISP.SYRIN SQ ONE ×2 (05:36→17:00)
[2020-01-18] MEDS: ENOXAPARIN 80 MG, ENOXAPARIN 30 MG SQ SCH ×2 (05:41→17:02)
[2020-01-18] MEDS: DEXTROSE 5%-0.45% SALINE 1,000 ML IV SCH (05:59)
[2020-01-18] MEDS ORDERED: ENOXAPARIN NA (PORCINE) 120 MG/0.8 ML DISP.SYRIN SQ SCH (06:00)
[2020-01-18 08:44] LABS: ALBUMIN 2.3 g/dl (3.4-5.0); BILIRUBIN,TOTAL 2.1 mg/dL (0.2-1); BLOOD UREA NITROGEN 13.2 mg/dL (7-18); CALCIUM 8.5 mg/dL (8.5-10.1); CREATININE 0.4 mg/dL (0.55-1.3); POTASSIUM 3.4 mmol/L (3.5-5.1); TOT PROT 5.6 g/dl (6.4-8.2)
[2020-01-18] MEDS: PANTOPRAZOLE SODIUM 40 MG VIAL IVPUSH SCH (09:34)
[2020-01-18] MEDS: CHLORHEXIDINE GLUCONATE 0.12% 15ML CUP MM SCH ×2 (09:35→21:47)
[2020-01-18] MEDS: VANCOMYCIN 1 GRAM (PRE-DOCKED) 1,000 MG/250 ML BAG IVPB SCH ×2 (09:35→21:47)
--- NOTE | 2020-01-18 09:55 | PN ---
Progress Note, Physician History of Present Illness: 64 year old male with a past medical history of HTN, HLD, JUANA (not using CPAP), COPD, GERD, systolic congestive heart failure, paroxysmal atrial fibrillation (on Eliquis, s/p cardioversion 11/2016) who presented with 3 weeks of gradual onset anasarca, scrotal swelling and mild shortness of breath worse on exertion. CXR s/f diffused bilat opacities with c/f PNA +/-fluid overload, ?bilateral lower extremity cellulitis and bilateral hydrocele, and respiratory acidosis is admitted for Acute hypercapneic respiratory failure and Acute CHF exacerbation, intubated for progressive hypercarbic respiratory failure, decreased mental status on BiPAP. 01/11/2020 s/p percutaneous tracheostomy, awake off sedation. Vented on volume assist control with 40% FiO2, PEEP 5. Placed on CPAP/PS. 01/12/2020 Off sedation on vent 01/12: no acute cardiac events; had elevated temp 01/13: No significant change01/14: No cardiac events 01/15: Vented, awake. Currently on SIMV RR 8 PS 10. Abd slightly distended 01/16: Vented awake on SIMV RR 8 PS 10. No fevers. 01/17: Ileus noted on abd/pelvic CT, interactive on vent - Current Medication List Current Medications: Active Medications Amino Acids (Prosource No Carb Liquid Pkt) 30 ml NGT DAILY@0800 [facility] Last Admin: 01/17/20 09:52 Dose: Not Given Documented by: Apixaban (Eliquis -) 5 mg NGT BID [facility] Last Admin: 01/17/20 11:01 Dose: Not Given Documented by: Ascorbic Acid (Vitamin C Oral Solution -) 1,000 mg NGT DAILY [facility] Last Admin: 01/17/20 11:02 Dose: Not Given Documented by: Chlorhexidine Gluconate (Peridex -) 15 ml MM BID [facility] Last Admin: 01/18/20 09:35 Dose: 15 ml Documented by: Enoxaparin Sodium 80 mg/ (Enoxaparin Sodium 30 mg) 110 mg SQ Q12H [facility] Last Admin: 01/18/20 05:41 Dose: 110 mg Documented by: Vancomycin HCl (Vancomycin (Pre-Docked)) 1,000 mg in 250 mls @ 250 mls/hr IVPB BID [facility]; Protocol Last Admin: 01/18/20 09:35 Dose: 250 mls/hr Documented by: Dextrose/Sodium Chloride (D5-1/2ns -) 1,000 mls @ 75 mls/hr IV ASDIR [facility] Last Admin: 01/18/20 05:59 Dose: 75 mls/hr Documented by: Metoprolol Tartrate (Lopressor -) 25 mg NGT BID [facility] Last Admin: 01/17/20 11:01 Dose: Not Given Documented by: Metoprolol Tartrate (Lopressor Injection -) 5 mg IVPB Q4H PRN PRN Reason: HYPERTENSION Multivitamins/Minerals (Certavite-Antioxidant Liquid) 15 ml NGT DAILY [facility] Last Admin: 01/17/20 11:01 Dose: Not Given Documented by: Pantoprazole Sodium (Protonix Iv) 40 mg IVPUSH DAILY [facility] Last Admin: 01/18/20 09:34 Dose: 40 mg Documented by: - Objective Vital Signs: Vital Signs Temperature 97.9 F 01/18/20 05:00 Pulse Rate 92 H 01/18/20 05:00 Respiratory Rate 14 01/18/20 09:15 Blood Pressure 133/55 L 01/18/20 05:00 O2 Sat by Pulse Oximetry (%) 98 01/18/20 09:15 Constitutional: Yes: No Distress, Calm Neck: Yes: Other (Tracheostomy) Respiratory: Yes: Mechanically Ventilated, Rhonchi Gastrointestinal: Yes: Normal Bowel Sounds, Soft Genitourinary: Yes: Hilario Present Edema: No Labs: CBC, BMP 01/17/20 16:20 01/18/20 07:37 INR, PTT INR 1.23 (0.83-1.09) H 01/10/20 13:50 - ....Imaging X-ray: Report Reviewed (Possible pSBO) Problem List - Problems (1) Congestive heart failure (CHF) Code(s): I50.9 - HEART FAILURE, UNSPECIFIED Qualifiers: Heart failure type: diastolic Heart failure chronicity: acute on chronic Qualified Code(s): I50.33 - Acute on chronic diastolic (congestive) heart failure (2) Pneumonia Code(s): J18.9 - PNEUMONIA, UNSPECIFIED ORGANISM Qualifiers: Pneumonia type: due to unspecified organism Laterality: right Lung location: lower lobe of lung Qualified Code(s): J18.9 - Pneumonia, unspecified organism (3) Acute on chronic diastolic (congestive) heart failure Code(s): I50.33 - ACUTE ON CHRONIC DIASTOLIC (CONGESTIVE) HEART FAILURE (4) Acute respiratory failure with hypoxia and hypercarbia Code(s): J96.01 - ACUTE RESPIRATORY FAILURE WITH HYPOXIA; J96.02 - ACUTE RESPIRA TORY FAILURE WITH HYPERCAPNIA (5) Atrial fibrillation Code(s): I48.91 - UNSPECIFIED ATRIAL FIBRILLATION Qualifiers: Atrial fibrillation type: paroxysmal Qualified Code(s): I48.0 - Paroxysmal atrial fibrillation (6) COPD (chronic obstructive pulmonary disease) Code(s): J44.9 - CHRONIC OBSTRUCTIVE PULMONARY DISEASE, UNSPECIFIED Qualifiers: COPD type: unspecified COPD Qualified Code(s): J44.9 - Chronic obstructive pulmonary disease, unspecified (7) Hypertension Code(s): I10 - ESSENTIAL (PRIMARY) HYPERTENSION Qualifiers: Hypertension type: essential hypertension Qualified Code(s): I10 - Essenti al (primary) hypertension (8) Pleural effusion Code(s): J90 - PLEURAL EFFUSION, NOT ELSEWHERE CLASSIFIED Assessment/Plan 10/26/2017 Normal LV size with mild LVH, normal LV fxn, normal RV size and fxn, mild LAE, mild MR, mild-mod TR, mild MI, RVSP 43 mmHg 11/19/2016 Lexiscan Myoview: Apical ischemia, LVEF 45-52% 10/06/2016 Echocardiography revealed mild to moderate LV systolic dysfunction, moderate TR, RVSP of 30-40 mmHg 1. Acute on chronic Hypoxic and Hypercapneic Respiratory Failure with tracheostomy 2. Acute on chronic LV Diastolic Heart Failure with pleural effusion 3. Pneumonia (septic shock) 4. Paroxysmal atrial fibrillation with periods of rapid ventricular response post DCCV, [id number] score of 2 5. Obstructive Sleep Apnea/Obesity 6. HTN/HCVD 7. Hypercholesterolemia 8. CAD, angina pectoris 9. Bilateral cellulitis with h/o abscess s/p debridement 10. Bilateral hydrocele 11. Ileus due to underlying co morbid conditions PLAN: 1. Vent support via tracheostomy 2. DVT and GI prophylaxis and enteral feeds held 3. Diuretics held with monitor renal function and electrolytes 4. Continue Lopressor 25 mg BID and Eliquis 5 mg BID (via NGT) 5. F/u serial AXRs
--- NOTE | 2020-01-18 10:10 | PN ---
Progress Note, Physician Chief Complaint: Acute on Chronic Hypoxic and Hypercapneic Respiratory Failure s/p Tracheostomy Pneumonia ARDS Septic Shock Acute on Chronic Diastolic Heart Failure Pulmonary HTN Paroxysmal Atrial Fibrillation CAD Acute Kidney Injury COPD JUANA/OHS SBO History of Present Illness: NAD, alert and oriented Denies any pain On Mech vent SIMV of 6, tolerating well SBO on CTAP yesterday Seen by surgery Repeat labs pending, repeat AXR pending - Current Medication List Current Medications: Active Medications Amino Acids (Prosource No Carb Liquid Pkt) 30 ml NGT DAILY@0800 [facility] Last Admin: 01/17/20 09:52 Dose: Not Given Documented by: Apixaban (Eliquis -) 5 mg NGT BID [facility] Last Admin: 01/17/20 11:01 Dose: Not Given Documented by: Ascorbic Acid (Vitamin C Oral Solution -) 1,000 mg NGT DAILY [facility] Last Admin: 01/17/20 11:02 Dose: Not Given Documented by: Chlorhexidine Gluconate (Peridex -) 15 ml MM BID [facility] Last Admin: 01/18/20 09:35 Dose: 15 ml Documented by: Enoxaparin Sodium 80 mg/ (Enoxaparin Sodium 30 mg) 110 mg SQ Q12H [facility] Last Admin: 01/18/20 05:41 Dose: 110 mg Documented by: Vancomycin HCl (Vancomycin (Pre-Docked)) 1,000 mg in 250 mls @ 250 mls/hr IVPB BID [facility]; Protocol Last Admin: 01/18/20 09:35 Dose: 250 mls/hr Documented by: Dextrose/Sodium Chloride (D5-1/2ns -) 1,000 mls @ 75 mls/hr IV ASDIR [facility] Last Admin: 01/18/20 05:59 Dose: 75 mls/hr Documented by: Metoprolol Tartrate (Lopressor -) 25 mg NGT BID [facility] Last Admin: 01/17/20 11:01 Dose: Not Given Documented by: Metoprolol Tartrate (Lopressor Injection -) 5 mg IVPB Q4H PRN PRN Reason: HYPERTENSION Multivitamins/Minerals (Certavite-Antioxidant Liquid) 15 ml NGT DAILY [facility] Last Admin: 01/17/20 11:01 Dose: Not Given Documented by: Pantoprazole Sodium (Protonix Iv) 40 mg IVPUSH DAILY [facility] Last Admin: 01/18/20 09:34 Dose: 40 mg Documented by: - Objective Vital Signs: Vital Signs Temperature 97.9 F 01/18/20 09:00 Pulse Rate 90 01/18/20 09:00 Respiratory Rate 14 01/18/20 09:15 Blood Pressure 135/69 01/18/20 09:00 O2 Sat by Pulse Oximetry (%) 98 01/18/20 09:15 Constitutional: Yes: Well Nourished, No Distress, Calm, Obese Cardiovascular: Yes: Regular Rate and Rhythm Respiratory: Yes: Regular, CTA Bilaterally Gastrointestinal: Yes: Soft, Abdomen, Obese, Hypoactive Bowel Sounds Genitourinary: Yes: Incontinence Musculoskeletal: Yes: Muscle Weakness Edema: No Peripheral Pulses WNL: Yes Neurological: Yes: Alert, Oriented Psychiatric: Yes: Alert, Oriented Labs: CBC, BMP 01/17/20 16:20 01/18/20 07:37 INR, PTT INR 1.23 (0.83-1.09) H 01/10/20 13:50 Problem List - Problems (1) SBO (small bowel obstruction) Assessment/Plan: -GI consult appreciated -Surgery consult appreciated -NPO -AXR today shows high grade SBO and daily in AM to evaluate SBO -Pt denies any pain/N/V -NGT to low intermittent suction -Start gentle IVF Problems reviewed: Yes Code(s): K56.609 - UNSP INTESTNL OBST, UNSP TO PARTIAL VERSUS COMPLETE OBST (2) Morbid obesity Problems reviewed: Yes Code(s): E66.01 - MORBID (SEVERE) OBESITY DUE TO EXCESS CALORIES (3) Pneumonia Assessment/Plan: -ID consult appreciated -Afebrile -Cultures: Microbiology 01/12/20 12:43 Blood Culture - Final Blood - Peripheral Venous NO GROWTH AFTER 5 DAYS INCUBATION 01/12/20 12:48 Blood Culture - Final Blood - Peripheral Venous NO GROWTH AFTER 5 DAYS INCUBATION -SC:MRSA -On IV Vanco Problems reviewed: Yes Code(s): J18.9 - PNEUMONIA, UNSPECIFIED ORGANISM Qualifiers: Pneumonia type: due to unspecified organism Laterality: right Lung location: lower lobe of lung Qualified Code(s): J18.9 - Pneumonia, unspecified organism (4) Atrial fibrillation Assessment/Plan: -Start Lovenox BID until able to use GT Problems reviewed: Yes Code(s): I48.91 - UNSPECIFIED ATRIAL FIBRILLATION Qualifiers: Atrial fibrillation type: paroxysmal Qualified Code(s): I48.0 - Paroxysmal atrial fibrillation (5) Respiratory failure with hypoxia and hypercapnia Assessment/Plan: -Pulmonary on board -S/P trach -Mech vent -Wean as tolerated -LTAC placement upon discharge -Trial of Rohini pollack Problems reviewed: Yes Code(s): J96.91 - RESPIRATORY FAILURE, UNSPECIFIED WITH HYPOXIA; J96.92 - RESPIRATORY FAILURE, UNSPECIFIED WITH HYPERCAPNIA Qualifiers: Chronicity: acute on chronic Qualified Code(s): J96.21 - Acute and chronic respiratory failure with hypoxia; J96.22 - Acute and chronic respiratory failure with hypercapnia (6) Hypokalemia Assessment/Plan: -KCL IV 10 meq x 3 -Gentle IVF -Nephrology on board -Monitor trend Problems reviewed: Yes Code(s): E87.6 - HYPOKALEMIA (7) MRSA (methicillin resistant staphylococcus aureus) pneumonia Problems reviewed: Yes Code(s): J15.212 - PNEUMONIA DUE TO METHICILLIN RESISTANT STAPHYLOCOCCUS AUREUS Assessment/Plan See problem list
--- NOTE | 2020-01-18 11:48 | PN ---
Progress Note, Physician History of Present Illness: PULMONARY AWAKE,ALERT ON VENT SUPPORT ,IMV WITH PS - Current Medication List Current Medications: Active Medications Amino Acids (Prosource No Carb Liquid Pkt) 30 ml NGT DAILY@0800 [facility] Last Admin: 01/17/20 09:52 Dose: Not Given Documented by: Apixaban (Eliquis -) 5 mg NGT BID [facility] Last Admin: 01/17/20 11:01 Dose: Not Given Documented by: Ascorbic Acid (Vitamin C Oral Solution -) 1,000 mg NGT DAILY [facility] Last Admin: 01/17/20 11:02 Dose: Not Given Documented by: Chlorhexidine Gluconate (Peridex -) 15 ml MM BID [facility] Last Admin: 01/18/20 09:35 Dose: 15 ml Documented by: Enoxaparin Sodium 80 mg/ (Enoxaparin Sodium 30 mg) 110 mg SQ Q12H [facility] Last Admin: 01/18/20 05:41 Dose: 110 mg Documented by: Vancomycin HCl (Vancomycin (Pre-Docked)) 1,000 mg in 250 mls @ 250 mls/hr IVPB BID [facility]; Protocol Last Admin: 01/18/20 09:35 Dose: 250 mls/hr Documented by: Dextrose/Sodium Chloride (D5-1/2ns -) 1,000 mls @ 75 mls/hr IV ASDIR [facility] Last Admin: 01/18/20 05:59 Dose: 75 mls/hr Documented by: Metoprolol Tartrate (Lopressor -) 25 mg NGT BID [facility] Last Admin: 01/17/20 11:01 Dose: Not Given Documented by: Metoprolol Tartrate (Lopressor Injection -) 5 mg IVPB Q4H PRN PRN Reason: HYPERTENSION Multivitamins/Minerals (Certavite-Antioxidant Liquid) 15 ml NGT DAILY [facility] Last Admin: 01/17/20 11:01 Dose: Not Given Documented by: Pantoprazole Sodium (Protonix Iv) 40 mg IVPUSH DAILY [facility] Last Admin: 01/18/20 09:34 Dose: 40 mg Documented by: - Objective Vital Signs: Vital Signs Temperature 97.9 F 01/18/20 09:00 Pulse Rate 90 01/18/20 09:00 Respiratory Rate 14 01/18/20 09:15 Blood Pressure 135/69 01/18/20 09:00 O2 Sat by Pulse Oximetry (%) 98 01/18/20 09:15 Constitutional: Yes: Well Nourished, Calm Eyes: Yes: WNL HENT: Yes: WNL Neck: Yes: Supple (TRACH) Cardiovascular: Yes: Regular Rate and Rhythm, S1, S2 Respiratory: Yes: Rhonchi (FEW SCATTERED RHONCHI) Gastrointestinal: Yes: Normal Bowel Sounds Extremities: Yes: WNL Edema: No Labs: CBC, BMP 01/18/20 07:37 INR, PTT INR 1.23 (0.83-1.09) H 01/10/20 13:50 Assessment/Plan ASSESSMENT AND PLAN: Acute on Chronic Hypoxic and Hypercapneic Respiratory Failure Pneumonia ARDS improved S/P Septic Shock Acute on Chronic Diastolic Heart Failure Pulmonary HTN Paroxysmal Atrial Fibrillation CAD Acute Kidney Injury Likely COPD JUANA/OHS HTN Hypercholesterolemia - antibiotics per ID - rate control - continue anticoagulation - spontaneous breathing trials as tolerated - titrate FiO2, PEEP to keep SpO2 >90% - monitor urine output, creatinine - enteral feeds - DVT/GI prophylaxis DR MELTON
--- NOTE | 2020-01-18 12:12 | PN ---
Progress Note, Physician History of Present Illness: Pt seen and examined at bedside. He is awake and alert. He says that he is passing gas but has not passed stool. - Current Medication List Current Medications: Active Medications Amino Acids (Prosource No Carb Liquid Pkt) 30 ml NGT DAILY@0800 [facility] Last Admin: 01/17/20 09:52 Dose: Not Given Documented by: Apixaban (Eliquis -) 5 mg NGT BID [facility] Last Admin: 01/17/20 11:01 Dose: Not Given Documented by: Ascorbic Acid (Vitamin C Oral Solution -) 1,000 mg NGT DAILY [facility] Last Admin: 01/17/20 11:02 Dose: Not Given Documented by: Chlorhexidine Gluconate (Peridex -) 15 ml MM BID [facility] Last Admin: 01/18/20 09:35 Dose: 15 ml Documented by: Enoxaparin Sodium 80 mg/ (Enoxaparin Sodium 30 mg) 110 mg SQ Q12H [facility] Last Admin: 01/18/20 05:41 Dose: 110 mg Documented by: Vancomycin HCl (Vancomycin (Pre-Docked)) 1,000 mg in 250 mls @ 250 mls/hr IVPB BID [facility]; Protocol Last Admin: 01/18/20 09:35 Dose: 250 mls/hr Documented by: Potassium Chloride (Potassium Chloride 10 Meq Premix Ivpb -) 10 meq in 100 mls @ 100 mls/hr IVPB Q60M [facility] Stop: 01/18/20 15:14 Metoprolol Tartrate (Lopressor -) 25 mg NGT BID [facility] Last Admin: 01/17/20 11:01 Dose: Not Given Documented by: Metoprolol Tartrate (Lopressor Injection -) 5 mg IVPB Q4H PRN PRN Reason: HYPERTENSION Multivitamins/Minerals (Certavite-Antioxidant Liquid) 15 ml NGT DAILY [facility] Last Admin: 01/17/20 11:01 Dose: Not Given Documented by: Pantoprazole Sodium (Protonix Iv) 40 mg IVPUSH DAILY [facility] Last Admin: 01/18/20 09:34 Dose: 40 mg Documented by: - Objective Vital Signs: Vital Signs Temperature 97.9 F 01/18/20 09:00 Pulse Rate 90 01/18/20 09:00 Respiratory Rate 14 01/18/20 09:15 Blood Pressure 135/69 01/18/20 09:00 O2 Sat by Pulse Oximetry (%) 98 01/18/20 09:15 Constitutional: Yes: Calm Eyes: Yes: Conjunctiva Clear HENT: Yes: Atraumatic Neck: Yes: Supple Cardiovascular: Yes: S1, S2 Respiratory: Yes: Mechanically Ventilated Gastrointestinal: Yes: Normal Bowel Sounds, Soft, Distention Genitourinary: Yes: Incontinence Musculoskeletal: Yes: Muscle Weakness Edema: LLE: Trace, RLE: Trace Integumentary: Yes: Venous Stasis Changes Neurological: Yes: Oriented Psychiatric: Yes: Oriented Labs: CBC, BMP 01/17/20 16:20 01/18/20 07:37 INR, PTT INR 1.23 (0.83-1.09) H 01/10/20 13:50 Problem List - Problems (1) Anasarca Code(s): R60.1 - GENERALIZED EDEMA (2) Congestive heart failure (CHF) Code(s): I50.9 - HEART FAILURE, UNSPECIFIED Qualifiers: Heart failure type: diastolic Heart failure chronicity: acute on chronic Qualified Code(s): I50.33 - Acute on chronic diastolic (congestive) heart failure (3) Acute kidney injury Code(s): N17.9 - ACUTE KIDNEY FAILURE, UNSPECIFIED Assessment/Plan Current Medications Generic Name Dose Route Start Last Admin Trade Name Taylor PRN Reason Stop Dose Admin Amino Acids 30 ml 01/12/20 08:00 01/17/20 09:52 Prosource No Carb Liquid Pkt NGT Not Given DAILY@0800 [facility] Apixaban 5 mg 01/12/20 11:30 01/17/20 11:01 Eliquis - NGT Not Given BID L[facility]TE Ascorbic Acid 1,000 mg 01/12/20 11:30 01/17/20 11:02 Vitamin C Oral Solution - NGT Not Given DAILY [facility] Chlorhexidine Gluconate 15 ml 01/12/20 10:00 01/18/20 09:35 Peridex - MM 15 ml BID [facility] Administration Enoxaparin Sodium 80 mg/ 110 mg 01/18/20 06:00 01/18/20 05:41 Enoxaparin Sodium 30 mg SQ 110 mg Q12H [facility] Administration Vancomycin HCl 1,000 mg in 250 mls @ 250 mls/hr 01/14/20 22:00 01/18/20 09:35 Vancomycin (Pre-Docked) IVPB 250 mls/hr BID [facility]TE Administration Protocol Potassium Chloride 10 meq in 100 mls @ 100 mls/hr 01/18/20 12:15 Potassium Chloride 10 Meq Premix Ivpb - IVPB 01/18/20 15:14 Q60M [facility]TE Potassium Chloride 20 meq/ 1,000 mls @ 75 mls/hr 01/18/20 12:10 Dextrose/Sodium Chloride IVPB ASDIR L[facility]NETTE Metoprolol Tartrate 25 mg 01/12/20 11:26 01/17/20 11:01 Lopressor - NGT Not Given BID [facility] Metoprolol Tartrate 5 mg 01/16/20 17:53 Lopressor Injection - IVPB Q4H PRN HYPERTENSION Multivitamins/Minerals 15 ml 01/12/20 11:32 01/17/20 11:01 Certavite-Antioxidant Liquid NGT Not Given DAILY [facility] Pantoprazole Sodium 40 mg 01/12/20 10:00 01/18/20 09:34 Protonix Iv IVPUSH 40 mg DAILY [facility] Administration Impression 1. MONIE 2. CHF acute 3. acute resp failure requiring intubation 4. atrial fibrillation 5. hx of htn 6. obesity 7. chronic smoker 8. hypokalemia 9. partial sbo Plan - replace potassium - check mag - repeat labs in am - add potassium to fluids - hold off lasix for now - follow up abd xray
[2020-01-18] MEDS: D5-1/2NS+20 MEQ KCL - 20 MEQ/1,000 ML INFUS.BAG IV SCH (12:41)
[2020-01-18] MEDS: KCL 10 MEQ IVPB 10 MEQ/100 ML INFUS.BAG IVPB SCH ×3 (12:42→15:03)
--- NOTE | 2020-01-18 15:20 | PN ---
Progress Note (short form) - Note Progress Note: Gastroenterology note: Nursing staff stated that the patient had vomiting this am and an NGT was inserted. He also had a BM which was loose and nonbloody Vital Signs Period Temp Pulse Resp BP Sys/Clements Pulse Ox Last 24 Hr 97.0 F-99 F 84-100 14-27 119-148/55-87 95-100 ngt: 800 ml in the canister GEN: Alert & 0x3, NAD Trach: in place on vent ABD: soft, slight distended, non-tender CBC, BMP 01/17/20 16:20 01/18/20 07:37 AXR(01/17)-dilated small and large bowel A/P: 64 yo male with respiratory failure/trach now with dilated bowel and vomiting. pneumonia NGT reinserted by the medical team, advanced to 60cm and resecured it had slipped back to 50cm AXR in the am Replete electrolytes, hypokalemia. Pt on IV fluid with KCL D/w Dr. Quintero <Joyce Thomason - Last Filed: 01/18/20 15:34> - Note Progress Note: pt was seen and examined agree with assessment and plan as outlined above ngt / axr / keep electrolytes wnl / surgery f/u <Rocio Quintero - Last Filed: 01/18/20 17:20>
--- NOTE | 2020-01-18 19:47 | PN ---
Progress Note, Physician History of Present Illness: Events noted. Pt with vomiting, now with NGT, small BM noted earlier. He is alert and otherwise without distress. - Current Medication List Current Medications: Active Medications Amino Acids (Prosource No Carb Liquid Pkt) 30 ml NGT DAILY@0800 [facility] Last Admin: 01/17/20 09:52 Dose: Not Given Documented by: Apixaban (Eliquis -) 5 mg NGT BID [facility] Last Admin: 01/17/20 11:01 Dose: Not Given Documented by: Ascorbic Acid (Vitamin C Oral Solution -) 1,000 mg NGT DAILY [facility] Last Admin: 01/17/20 11:02 Dose: Not Given Documented by: Chlorhexidine Gluconate (Peridex -) 15 ml MM BID [facility] Last Admin: 01/18/20 09:35 Dose: 15 ml Documented by: Enoxaparin Sodium 80 mg/ (Enoxaparin Sodium 30 mg) 110 mg SQ Q12H [facility] Last Admin: 01/18/20 17:02 Dose: 110 mg Documented by: Vancomycin HCl (Vancomycin (Pre-Docked)) 1,000 mg in 250 mls @ 250 mls/hr IVPB BID [facility]; Protocol Last Admin: 01/18/20 09:35 Dose: 250 mls/hr Documented by: Potassium Chloride/Dextrose/Sod Cl (D5-1/2ns+20 Meq Kcl -) 20 meq in 1,000 mls @ 75 mls/hr IV ASDIR [facility] Last Admin: 01/18/20 12:41 Dose: 75 mls/hr Documented by: Metoprolol Tartrate (Lopressor -) 25 mg NGT BID [facility] Last Admin: 01/17/20 11:01 Dose: Not Given Documented by: Metoprolol Tartrate (Lopressor Injection -) 5 mg IVPB Q4H PRN PRN Reason: HYPERTENSION Multivitamins/Minerals (Certavite-Antioxidant Liquid) 15 ml NGT DAILY [facility] Last Admin: 01/17/20 11:01 Dose: Not Given Documented by: Pantoprazole Sodium (Protonix Iv) 40 mg IVPUSH DAILY [facility] Last Admin: 01/18/20 09:34 Dose: 40 mg Documented by: - Objective Vital Signs: Vital Signs Temperature 99.0 F 01/18/20 17:00 Pulse Rate 90 01/18/20 17:00 Respiratory Rate 14 01/18/20 17:40 Blood Pressure 104/75 01/18/20 17:00 O2 Sat by Pulse Oximetry (%) 96 01/18/20 17:41 Constitutional: Yes: No Distress, Calm Cardiovascular: Yes: Regular Rate and Rhythm Respiratory: Yes: Regular, Other (trach) Gastrointestinal: Yes: Soft, Abdomen, Obese, Other (NGT) Neurological: Yes: Alert Labs: CBC, BMP 01/17/20 16:20 01/18/20 07:37 INR, PTT INR 1.23 (0.83-1.09) H 01/10/20 13:50 Microbiology 01/12/20 12:43 Blood - Peripheral Venous Blood Culture - Final NO GROWTH AFTER 5 DAYS INCUBATION 01/12/20 12:48 Blood - Peripheral Venous Blood Culture - Final NO GROWTH AFTER 5 DAYS INCUBATION 01/12/20 17:30 Urine - Urine Clean Catch Urine Culture - Final NO GROWTH OBTAINED 01/06/20 21:40 Blood - Peripheral Venous Blood Culture - Final NO GROWTH AFTER 5 DAYS INCUBATION 01/06/20 21:30 Blood - Peripheral Venous Blood Culture - Final NO GROWTH AFTER 5 DAYS INCUBATION 01/07/20 12:00 Sputum - Endotrachea Suction/Ventilator Gram Stain - Final 01/07/20 12:00 Sputum - Endotrachea Suction/Ventilator Sputum Culture - Final Mr S Aureus Strep Agalactiae Group B 01/07/20 00:05 Urine - Urine Hilario Urine Culture - Final NO GROWTH OBTAINED 12/27/19 21:00 Blood - Peripheral Venous Blood Culture - Final NO GROWTH AFTER 5 DAYS INCUBATION 12/27/19 21:00 Blood - Peripheral Venous Blood Culture - Final NO GROWTH AFTER 5 DAYS INCUBATION 12/25/19 20:40 Blood - Peripheral Venous Blood Culture - Final NO GROWTH AFTER 5 DAYS INCUBATION 12/25/19 20:30 Blood - Peripheral Venous Blood Culture - Final NO GROWTH AFTER 5 DAYS INCUBATION 12/27/19 14:00 Urine - Urine Hilario Urine Culture - Final NO GROWTH OBTAINED 12/23/19 18:00 Sputum - Endotrachea Suction/Ventilator Gram Stain - Final 12/23/19 18:00 Sputum - Endotrachea Suction/Ventilator Sputum Culture - Final NORMAL RESPIRATORY PEYTON 12/23/19 17:51 Urine - Urine Hilario Urine Culture - Final NO GROWTH OBTAINED 12/16/19 20:13 Blood - Peripheral Venous Blood Culture - Final NO GROWTH AFTER 5 DAYS INCUBATION 12/16/19 19:50 Blood - Peripheral Venous Blood Culture - Final NO GROWTH AFTER 5 DAYS INCUBATION - ....Imaging X-ray: Report Reviewed Problem List - Problems (1) Edema of scrotum Code(s): N50.89 - OTHER SPECIFIED DISORDERS OF THE MALE GENITAL ORGANS (2) Morbid obesity Code(s): E66.01 - MORBID (SEVERE) OBESITY DUE TO EXCESS CALORIES (3) Acute on chronic diastolic (congestive) heart failure Code(s): I50.33 - ACUTE ON CHRONIC DIASTOLIC (CONGESTIVE) HEART FAILURE (4) Acute respiratory failure requiring reintubation Code(s): J96.00 - ACUTE RESPIRATORY FAILURE, UNSP W HYPOXIA OR HYPERCAPNIA (5) Afib Code(s): I48.91 - UNSPECIFIED ATRIAL FIBRILLATION Qualifiers: Atrial fibrillation type: paroxysmal Qualified Code(s): I48.0 - Paroxysmal atrial fibrillation Assessment/Plan Acute respiratory failure s/p trach on MV PNA CHF b/l LE Cellulitis b/l Hydrocele MONIE Paroxysmal AFIB COPD JUANA CAD HTN HLD -- NGT placed for vomiting, ileus vs SBO -- continue Vancomycin IV, monitor renal function - stable -- Surgery following -- continue monitor vitals, currently afebrile/stable
[2020-01-19] MEDS ORDERED: ENOXAPARIN NA (PORCINE) 30 MG/0.3 ML DISP.SYRIN SQ ONE ×2 (06:12→17:29)
[2020-01-19] MEDS ORDERED: ENOXAPARIN NA (PORCINE) 80 MG/0.8 ML DISP.SYRIN SQ ONE ×2 (06:12→17:29)
[2020-01-19] MEDS: ENOXAPARIN 80 MG, ENOXAPARIN 30 MG SQ SCH ×2 (06:14→17:30)
[2020-01-19] MEDS: D5-1/2NS+20 MEQ KCL - 20 MEQ/1,000 ML INFUS.BAG IV SCH (06:14)
[2020-01-19 09:28] LABS: ALBUMIN 2.4 g/dl (3.4-5.0); BILIRUBIN,TOTAL 2.4 mg/dL (0.2-1); BLOOD UREA NITROGEN 9.6 mg/dL (7-18); CALCIUM 8.9 mg/dL (8.5-10.1); CREATININE 0.4 mg/dL (0.55-1.3); MAGNESIUM 1.8 mg/dL (1.8-2.4); POTASSIUM 3.3 mmol/L (3.5-5.1); TOT PROT 5.8 g/dl (6.4-8.2)
--- NOTE | 2020-01-19 09:44 | PN ---
Progress Note, Physician History of Present Illness: 64 year old male with a past medical history of HTN, HLD, JUANA (not using CPAP), COPD, GERD, systolic congestive heart failure, paroxysmal atrial fibrillation (on Eliquis, s/p cardioversion 11/2016) who presented with 3 weeks of gradual onset anasarca, scrotal swelling and mild shortness of breath worse on exertion. CXR s/f diffused bilat opacities with c/f PNA +/-fluid overload, ?bilateral lower extremity cellulitis and bilateral hydrocele, and respiratory acidosis is admitted for Acute hypercapneic respiratory failure and Acute CHF exacerbation, intubated for progressive hypercarbic respiratory failure, decreased mental status on BiPAP. 01/11/2020 s/p percutaneous tracheostomy, awake off sedation. Vented on volume assist control with 40% FiO2, PEEP 5. Placed on CPAP/PS. 01/12/2020 Off sedation on vent 01/12: no acute cardiac events; had elevated temp 01/13: No significant change01/14: No cardiac events 01/15: Vented, awake. Currently on SIMV RR 8 PS 10. Abd slightly distended 01/16: Vented awake on SIMV RR 8 PS 10. No fevers. 01/17: Ileus noted on abd/pelvic CT, interactive on vent 01/18: Small BM, NGT inserted - Current Medication List Current Medications: Active Medications Amino Acids (Prosource No Carb Liquid Pkt) 30 ml NGT DAILY@0800 [facility] Last Admin: 01/17/20 09:52 Dose: Not Given Documented by: Apixaban (Eliquis -) 5 mg NGT BID [facility] Last Admin: 01/17/20 11:01 Dose: Not Given Documented by: Ascorbic Acid (Vitamin C Oral Solution -) 1,000 mg NGT DAILY [facility] Last Admin: 01/17/20 11:02 Dose: Not Given Documented by: Chlorhexidine Gluconate (Peridex -) 15 ml MM BID [facility] Last Admin: 01/18/20 21:47 Dose: 15 ml Documented by: Enoxaparin Sodium 80 mg/ (Enoxaparin Sodium 30 mg) 110 mg SQ Q12H [facility] Last Admin: 01/19/20 06:14 Dose: 110 mg Documented by: Vancomycin HCl (Vancomycin (Pre-Docked)) 1,000 mg in 250 mls @ 250 mls/hr IVPB BID [facility]; Protocol Last Admin: 01/18/20 21:47 Dose: 250 mls/hr Documented by: Potassium Chloride/Dextrose/Sod Cl (D5-1/2ns+20 Meq Kcl -) 20 meq in 1,000 mls @ 75 mls/hr IV ASDIR [facility] Last Admin: 01/19/20 06:14 Dose: 75 mls/hr Documented by: Metoprolol Tartrate (Lopressor -) 25 mg NGT BID [facility] Last Admin: 01/17/20 11:01 Dose: Not Given Documented by: Metoprolol Tartrate (Lopressor Injection -) 5 mg IVPB Q4H PRN PRN Reason: HYPERTENSION Multivitamins/Minerals (Certavite-Antioxidant Liquid) 15 ml NGT DAILY [facility] Last Admin: 01/17/20 11:01 Dose: Not Given Documented by: Pantoprazole Sodium (Protonix Iv) 40 mg IVPUSH DAILY [facility] Last Admin: 01/18/20 09:34 Dose: 40 mg Documented by: - Objective Vital Signs: Vital Signs Temperature 98.1 F 01/19/20 06:00 Pulse Rate 90 01/19/20 06:00 Respiratory Rate 16 01/19/20 09:12 Blood Pressure 147/50 L 01/19/20 06:00 O2 Sat by Pulse Oximetry (%) 96 01/19/20 09:12 Constitutional: Yes: No Distress, Calm Neck: Yes: Other (Tracheostomy) Cardiovascular: Yes: Regular Rate and Rhythm Respiratory: Yes: Mechanically Ventilated, Rhonchi Gastrointestinal: Yes: Normal Bowel Sounds, Soft Edema: No Integumentary: Yes: Venous Stasis Changes Labs: CBC, BMP 01/17/20 16:20 01/19/20 08:18 INR, PTT INR 1.23 (0.83-1.09) H 01/10/20 13:50 Problem List - Problems (1) Congestive heart failure (CHF) Code(s): I50.9 - HEART FAILURE, UNSPECIFIED Qualifiers: Heart failure type: diastolic Heart failure chronicity: acute on chronic Qualified Code(s): I50.33 - Acute on chronic diastolic (congestive) heart f ailure (2) Pneumonia Code(s): J18.9 - PNEUMONIA, UNSPECIFIED ORGANISM Qualifiers: Pneumonia type: due to unspecified organism Laterality: right Lung location: lower lobe of lung Qualified Code(s): J18.9 - Pneumonia, unspecified organism (3) Acute on chronic diastolic (congestive) heart failure Code(s): I50.33 - ACUTE ON CHRONIC DIASTOLIC (CONGESTIVE) HEART FAILURE (4) Acute respiratory failure with hypoxia and hypercarbia Code(s): J96.01 - ACUTE RESPIRATORY FAILURE WITH HYPOXIA; J96.02 - ACUTE RESPIRATORY FAILURE WITH HYPERCAPNIA (5) Atrial fibrillation Code(s): I48.91 - UNSPECIFIED ATRIAL FIBRILLATION Qualifiers: Atrial fibrillation type: paroxysmal Qualified Code(s): I48.0 - Paroxysmal atrial fibrillation (6) COPD (chronic obstructive pulmonary disease) Code(s): J44.9 - CHRONIC OBSTRUCTIVE PULMONARY DISEASE, UNSPECIFIED Qualifiers: COPD type: unspecified COPD Qualified Code(s): J44.9 - Chronic obstructive pulmonary disease, unspecified (7) Hypertension Code(s): I10 - ESSENTIAL (PRIMARY) HYPERTENSION Qualifiers: Hypertension type: essential hypertension Qualified Code(s): I10 - Essential (primary) hypertension (8) Pleural effusion Code(s): J90 - PLEURAL EFFUSION, NOT ELSEWHERE CLASSIFIED Assessment/Plan 10/26/2017 Normal LV size with mild LVH, normal LV fxn, normal RV size and fxn, mild LAE, mild MR, mild-mod TR, mild WA, RVSP 43 mmHg 11/19/2016 Lexiscan Myoview: Apical ischemia, LVEF 45-52% 10/06/2016 Echocardiography revealed mild to moderate LV systolic dysfunction, moderate TR, RVSP of 30-40 mmHg 1. Acute on chronic Hypoxic and Hypercapneic Respiratory Failure with tracheostomy 2. Acute on chronic LV Diastolic Heart Failure with pleural effusion 3. Pneumonia (septic shock) 4. Paroxysmal atrial fibrillation with periods of rapid ventricular response post DCCV, [id number] score of 2 5. Obstructive Sleep Apnea/Obesity 6. HTN/HCVD 7. Hypercholesterolemia 8. CAD, angina pectoris 9. Bilateral cellulitis with h/o abscess s/p debridement 10. Bilateral hydrocele 11. Ileus due to underlying co morbid conditions PLAN: 1. Vent support via tracheostomy 2. DVT and GI prophylaxis and enteral feeds held 3. Diuretics held with monitor renal function and electrolytes 4. Continue Lopressor 25 mg BID and Eliquis 5 mg BID (via NGT) 5. F/u serial AXRs
[2020-01-19] MEDS: PANTOPRAZOLE SODIUM 40 MG VIAL IVPUSH SCH (10:10)
[2020-01-19] MEDS: VANCOMYCIN 1 GRAM (PRE-DOCKED) 1,000 MG/250 ML BAG IVPB SCH ×2 (10:18→22:00)
[2020-01-19] MEDS: CHLORHEXIDINE GLUCONATE 0.12% 15ML CUP MM SCH ×2 (10:19→21:59)
--- NOTE | 2020-01-19 11:18 | PN ---
Progress Note (short form) - Note Progress Note: PULMONARY Vented, awake, following commands. Large volume NGT output. Vital Signs Period Temp Pulse Resp BP Sys/Clements Pulse Ox Last 24 Hr 98.1 F-99.5 F 86-93 14-20 104-147/50-76 95-98 Gen: vented, awake Heart: RRR Lung: scattered rhonchi Abd: softly distended, nontender Ext: no edema CBC, BMP 01/17/20 16:20 01/19/20 08:18 Active Medications Amino Acids (Prosource No Carb Liquid Pkt) 30 ml NGT DAILY@0800 [facility] Last Admin: 01/17/20 09:52 Dose: Not Given Documented by: Apixaban (Eliquis -) 5 mg NGT BID [facility] Last Admin: 01/17/20 11:01 Dose: Not Given Documented by: Ascorbic Acid (Vitamin C Oral Solution -) 1,000 mg NGT DAILY [facility] Last Admin: 01/17/20 11:02 Dose: Not Given Documented by: Chlorhexidine Gluconate (Peridex -) 15 ml MM BID [facility] Last Admin: 01/19/20 10:19 Dose: 15 ml Documented by: Enoxaparin Sodium 80 mg/ (Enoxaparin Sodium 30 mg) 110 mg SQ Q12H [facility] Last Admin: 01/19/20 06:14 Dose: 110 mg Documented by: Vancomycin HCl (Vancomycin (Pre-Docked)) 1,000 mg in 250 mls @ 250 mls/hr IVPB BID [facility]; Protocol Last Admin: 01/19/20 10:18 Dose: 250 mls/hr Documented by: Potassium Chloride/Dextrose/Sod Cl (D5-1/2ns+20 Meq Kcl -) 20 meq in 1,000 mls @ 75 mls/hr IV ASDIR [facility] Last Admin: 01/19/20 06:14 Dose: 75 mls/hr Documented by: Metoprolol Tartrate (Lopressor -) 25 mg NGT BID [facility] Last Admin: 01/17/20 11:01 Dose: Not Given Documented by: Metoprolol Tartrate (Lopressor Injection -) 5 mg IVPB Q4H PRN PRN Reason: HYPERTENSION Multivitamins/Minerals (Certavite-Antioxidant Liquid) 15 ml NGT DAILY [facility] Last Admin: 01/17/20 11:01 Dose: Not Given Documented by: Pantoprazole Sodium (Protonix Iv) 40 mg IVPUSH DAILY [facility] Last Admin: 01/19/20 10:10 Dose: 40 mg Documented by: A/P Acute on Chronic Hypoxic and Hypercapneic Respiratory Failure s/p Tracheostomy Pneumonia ARDS resolved Septic Shock resolved Acute on Chronic Diastolic Heart Failure Pulmonary HTN Paroxysmal Atrial Fibrillation CAD Acute Kidney Injury Likely COPD JUANA/OHS HTN Hypercholesterolemia - antibiotics per ID - rate control - continue anticoagulation - spontaneous breathing trials as tolerated - PMV eval - titrate FiO2, PEEP to keep SpO2 >90% - monitor urine output, creatinine - enteral feeds on hold - DVT/GI prophylaxis
--- NOTE | 2020-01-19 11:59 | PN ---
Progress Note, Physician Chief Complaint: Acute on Chronic Hypoxic and Hypercapneic Respiratory Failure s/p Tracheostomy Pneumonia ARDS Septic Shock Acute on Chronic Diastolic Heart Failure Pulmonary HTN Paroxysmal Atrial Fibrillation CAD Acute Kidney Injury COPD JUANA/OHS SBO History of Present Illness: NAD, alert and oriented Denies any pain On Mech vent SIMV of 6, tolerating well SBO on CTAP yesterday Seen by surgery Repeat labs K at 3.3 Pt pulled out NGT early this AM, which was replaced and confirmed with CXR - Current Medication List Current Medications: Active Medications Amino Acids (Prosource No Carb Liquid Pkt) 30 ml NGT DAILY@0800 [facility] Last Admin: 01/17/20 09:52 Dose: Not Given Documented by: Apixaban (Eliquis -) 5 mg NGT BID [facility] Last Admin: 01/17/20 11:01 Dose: Not Given Documented by: Ascorbic Acid (Vitamin C Oral Solution -) 1,000 mg NGT DAILY [facility] Last Admin: 01/17/20 11:02 Dose: Not Given Documented by: Chlorhexidine Gluconate (Peridex -) 15 ml MM BID [facility] Last Admin: 01/19/20 10:19 Dose: 15 ml Documented by: Enoxaparin Sodium 80 mg/ (Enoxaparin Sodium 30 mg) 110 mg SQ Q12H [facility] Last Admin: 01/19/20 06:14 Dose: 110 mg Documented by: Vancomycin HCl (Vancomycin (Pre-Docked)) 1,000 mg in 250 mls @ 250 mls/hr IVPB BID [facility]; Protocol Last Admin: 01/19/20 10:18 Dose: 250 mls/hr Documented by: Potassium Chloride/Dextrose/Sod Cl (D5-1/2ns+20 Meq Kcl -) 20 meq in 1,000 mls @ 75 mls/hr IV ASDIR [facility] Last Admin: 01/19/20 06:14 Dose: 75 mls/hr Documented by: Metoprolol Tartrate (Lopressor -) 25 mg NGT BID [facility] Last Admin: 01/17/20 11:01 Dose: Not Given Documented by: Metoprolol Tartrate (Lopressor Injection -) 5 mg IVPB Q4H PRN PRN Reason: HYPERTENSION Multivitamins/Minerals (Certavite-Antioxidant Liquid) 15 ml NGT DAILY [facility] Last Admin: 01/17/20 11:01 Dose: Not Given Documented by: Pantoprazole Sodium (Protonix Iv) 40 mg IVPUSH DAILY [facility] Last Admin: 01/19/20 10:10 Dose: 40 mg Documented by: - Objective Vital Signs: Vital Signs Temperature 98.1 F 01/19/20 06:00 Pulse Rate 90 01/19/20 06:00 Respiratory Rate 16 01/19/20 09:12 Blood Pressure 147/50 L 01/19/20 06:00 O2 Sat by Pulse Oximetry (%) 96 01/19/20 09:12 Constitutional: Yes: Well Nourished, No Distress, Calm, Obese Cardiovascular: Yes: Regular Rate and Rhythm Respiratory: Yes: Regular, CTA Bilaterally Gastrointestinal: Yes: Soft, Abdomen, Obese, Hypoactive Bowel Sounds Edema: No Peripheral Pulses WNL: Yes Neurological: Yes: Alert, Oriented Psychiatric: Yes: Alert, Oriented Labs: CBC, BMP 01/17/20 16:20 01/19/20 08:18 INR, PTT INR 1.23 (0.83-1.09) H 01/10/20 13:50 Problem List - Problems (1) SBO (small bowel obstruction) Assessment/Plan: -GI consult appreciated -Surgery consult appreciated -NPO -AXR today shows high grade SBO and daily in AM to evaluate SBO -Pt denies any pain -Vomitted twice this AM -NGT to low continous suction -Continue gentle IVF Problems reviewed: Yes Code(s): K56.609 - UNSP INTESTNL OBST, UNSP TO PARTIAL VERSUS COMPLETE OBST (2) Morbid obesity Problems reviewed: Yes Code(s): E66.01 - MORBID (SEVERE) OBESITY DUE TO EXCESS CALORIES (3) Pneumonia Assessment/Plan: -ID consult appreciated -Afebrile -Cultures: Microbiology 01/12/20 12:43 Blood Culture - Final Blood - Peripheral Venous NO GROWTH AFTER 5 DAYS INCUBATION 01/12/20 12:48 Blood Culture - Final Blood - Peripheral Venous NO GROWTH AFTER 5 DAYS INCUBATION -SC:MRSA -On IV Vanco Problems reviewed: Yes Code(s): J18.9 - PNEUMONIA, UNSPECIFIED ORGANISM Qualifiers: Pneumonia type: due to unspecified organism Laterality: right Lung l ocation: lower lobe of lung Qualified Code(s): J18.9 - Pneumonia, unspecified organism (4) Atrial fibrillation Assessment/Plan: -Start Lovenox BID until able to use GT Problems reviewed: Yes Code(s): I48.91 - UNSPECIFIED ATRIAL FIBRILLATION Qualifiers: Atrial fibrillation type: paroxysmal Qualified Code(s): I48.0 - Paroxysmal atrial fibrillation (5) Respiratory failure with hypoxia and hypercapnia Assessment/Plan: -Pulmonary on board -S/P trach -Mech vent -Wean as tolerated -LTAC placement upon discharge -Trial of Passy jaki Problems reviewed: Yes Code(s): J96.91 - RESPIRATORY FAILURE, UNSPECIFIED WITH HYPOXIA; J96.92 - RESPIRATORY FAILURE, UNSPECIFIED WITH HYPERCAPNIA Qualifiers: Chronicity: acute on chronic Qualified Code(s): J96.21 - Acute and chronic respiratory failure with hypoxia; J96.22 - Acute and chronic respiratory failure with hypercapnia (6) Hypokalemia Assessment/Plan: -KCL IV 10 meq x 3 again today -Gentle IVF-D51/2 NS+ KCl40 meq @ 50cc/hr -Nephrology on board -Monitor trend Problems reviewed: Yes Code(s): E87.6 - HYPOKALEMIA (7) MRSA (methicillin resistant staphylococcus aureus) pneumonia Problems reviewed: Yes Code(s): J15.212 - PNEUMONIA DUE TO METHICILLIN RESISTANT STAPHYLOCOCCUS AUREUS Assessment/Plan See problem list Left ms for mother Mariana to call back for status update.
[2020-01-19] MEDS: KCL 10 MEQ IVPB 10 MEQ/100 ML INFUS.BAG IVPB SCH ×3 (13:58→17:30)
[2020-01-19] MEDS: D5-1/2NS+40 MEQ KCL - 40 MEQ/1,000 ML INFUS.BAG IV SCH (13:58)
--- NOTE | 2020-01-19 13:59 | PN ---
Progress Note, Physician History of Present Illness: Pt seen and examined at bedside. He is awake and alert. He has not had a bowel movement. - Current Medication List Current Medications: Active Medications Amino Acids (Prosource No Carb Liquid Pkt) 30 ml NGT DAILY@0800 [facility] Last Admin: 01/17/20 09:52 Dose: Not Given Documented by: Apixaban (Eliquis -) 5 mg NGT BID [facility] Last Admin: 01/17/20 11:01 Dose: Not Given Documented by: Ascorbic Acid (Vitamin C Oral Solution -) 1,000 mg NGT DAILY [facility] Last Admin: 01/17/20 11:02 Dose: Not Given Documented by: Chlorhexidine Gluconate (Peridex -) 15 ml MM BID [facility] Last Admin: 01/19/20 10:19 Dose: 15 ml Documented by: Enoxaparin Sodium 80 mg/ (Enoxaparin Sodium 30 mg) 110 mg SQ Q12H [facility] Last Admin: 01/19/20 06:14 Dose: 110 mg Documented by: Vancomycin HCl (Vancomycin (Pre-Docked)) 1,000 mg in 250 mls @ 250 mls/hr IVPB BID [facility]; Protocol Last Admin: 01/19/20 10:18 Dose: 250 mls/hr Documented by: Potassium Chloride (Potassium Chloride 10 Meq Premix Ivpb -) 10 meq in 100 mls @ 100 mls/hr IVPB Q60M [facility] Stop: 01/19/20 14:59 Dextrose/Sodium Chloride (D5-1/2ns+40 Meq Kcl -) 40 meq in 1,000 mls @ 50 mls/hr IV ASDIR [facility] Metoprolol Tartrate (Lopressor -) 25 mg NGT BID [facility] Last Admin: 01/17/20 11:01 Dose: Not Given Documented by: Metoprolol Tartrate (Lopressor Injection -) 5 mg IVPB Q4H PRN PRN Reason: HYPERTENSION Multivitamins/Minerals (Certavite-Antioxidant Liquid) 15 ml NGT DAILY [facility] Last Admin: 01/17/20 11:01 Dose: Not Given Documented by: Pantoprazole Sodium (Protonix Iv) 40 mg IVPUSH DAILY [facility] Last Admin: 01/19/20 10:10 Dose: 40 mg Documented by: - Objective Vital Signs: Vital Signs Temperature 98.1 F 01/19/20 06:00 Pulse Rate 81 01/19/20 12:17 Respiratory Rate 16 01/19/20 12:16 Blood Pressure 128/90 01/19/20 10:00 O2 Sat by Pulse Oximetry (%) 95 01/19/20 12:17 Constitutional: Yes: Calm Eyes: Yes: Conjunctiva Clear HENT: Yes: Atraumatic Cardiovascular: Yes: S1, S2 Respiratory: Yes: Mechanically Ventilated Gastrointestinal: Yes: Soft Genitourinary: Yes: Incontinence Edema: Yes Edema: LLE: Trace, RLE: Trace Neurological: Yes: Oriented Psychiatric: Yes: Oriented Labs: CBC, BMP 01/17/20 16:20 01/19/20 08:18 INR, PTT INR 1.23 (0.83-1.09) H 01/10/20 13:50 Problem List - Problems (1) Anasarca Code(s): R60.1 - GENERALIZED EDEMA (2) Congestive heart failure (CHF) Code(s): I50.9 - HEART FAILURE, UNSPECIFIED Qualifiers: Heart failure type: diastolic Heart failure chronicity: acute on chronic Qualified Code(s): I50.33 - Acute on chronic diastolic (congestive) heart failure (3) Acute kidney injury Code(s): N17.9 - ACUTE KIDNEY FAILURE, UNSPECIFIED Assessment/Plan Current Medications Generic Name Dose Route Start Last Admin Trade Name Taylor PRN Reason Stop Dose Admin Amino Acids 30 ml 01/12/20 08:00 01/17/20 09:52 Prosource No Carb Liquid Pkt NGT Not Given DAILY@0800 [facility] Apixaban 5 mg 01/12/20 11:30 01/17/20 11:01 Eliquis - NGT Not Given BID [facility] Ascorbic Acid 1,000 mg 01/12/20 11:30 01/17/20 11:02 Vitamin C Oral Solution - NGT Not Given DAILY [facility] Chlorhexidine Gluconate 15 ml 01/12/20 10:00 01/19/20 10:19 Peridex - MM 15 ml BID [facility] Administration Enoxaparin Sodium 80 mg/ 110 mg 01/18/20 06:00 01/19/20 06:14 Enoxaparin Sodium 30 mg SQ 110 mg Q12H [facility] Administration Vancomycin HCl 1,000 mg in 250 mls @ 250 mls/hr 01/14/20 22:00 01/19/20 10:18 Vancomycin (Pre-Docked) IVPB 250 mls/hr BID [facility] Administration Protocol Potassium Chloride 10 meq in 100 mls @ 100 mls/hr 01/19/20 12:00 Potassium Chloride 10 Meq Premix Ivpb - IVPB 01/19/20 14:59 Q60M [facility] Dextrose/Sodium Chloride 40 meq in 1,000 mls @ 50 mls/hr 01/19/20 12:15 D5-1/2ns+40 Meq Kcl - IV ASDIR [facility] Metoprolol Tartrate 25 mg 01/12/20 11:26 01/17/20 11:01 Lopressor - NGT Not Given BID [facility] Metoprolol Tartrate 5 mg 01/16/20 17:53 Lopressor Injection - IVPB Q4H PRN HYPERTENSION Multivitamins/Minerals 15 ml 01/12/20 11:32 01/17/20 11:01 Certavite-Antioxidant Liquid NGT Not Given DAILY [facility] Pantoprazole Sodium 40 mg 01/12/20 10:00 01/19/20 10:10 Protonix Iv IVPUSH 40 mg DAILY [facility] Administration Impression 1. MONIE 2. CHF acute 3. acute resp failure requiring intubation 4. atrial fibrillation 5. hx of htn 6. obesity 7. chronic smoker 8. hypokalemia 9. partial sbo Plan - agree with decreasing fluid - replace potassium - monitor lytes - cont vent support - pt on ng suction for sbo - add potassium to fluids - hold off lasix for now - discussed with medical team
--- NOTE | 2020-01-19 14:45 | CONSULT ---
Admitting History and Physical - Admission History of Present Illness: 64 year old male with a past medical history of HTN, HLD, JUANA (not using CPAP), COPD, GERD, systolic congestive heart failure, paroxysmal atrial fibrillation (on Eliquis, s/p cardioversion 11/2016) who presented with 3 weeks of gradual onset anasarca, scrotal swelling and mild shortness of breath worse on exertion. CXR s/f diffused bilat opacities with c/f PNA +/-fluid overload, ?bilateral lower extremity cellulitis and bilateral hydrocele, and respiratory acidosis is admitted on 12/16/19 for Acute hypercapneic respiratory failure and Acute CHF exacerbation, intubated for progressive hypercarbic respiratory failure, de creased mental status on BiPAP Percutaneous tracheostomy.01/09 Pt has been on NGT feedings since 12/15 per pnp- SBO small bowel obstruction 01/19/20 -NPO -AXR today shows high grade SBO and daily in AM to evaluate SBO -Vomited twice this AM -NGT to low continous suction Nursing reports vomiting, suctioned 800 since this am. Abdominal distension. Pt placed on PMV for 3 hours by RT on 01/17. Pt's mother was there and reported "he didn't sound like he normally does". She said he was hoarse (?) asking to get out of here. Selected Entries 01/17/20 01/17/20 01/17/20 01:00 04:50 05:00 Supper Temperature Pulse Rate Respiratory 20 20 20 Rate Respiratory Depth Respiratory Effort Blood Pressure O2 Sat by Pulse Oximetry (%) Oxygen Delivery Method Fraction of Inspired Oxygen (FIO2) 01/17/20 01/17/20 01/17/20 08:15 09:00 11:18 Supper Temperature Pulse Rate Respiratory 19 20 15 Rate Respiratory Normal Depth Respiratory Mechanically Effort Ventilated Blood Pressure O2 Sat by Pulse Oximetry (%) Oxygen Delivery Method Fraction of Inspired Oxygen (FIO2) 01/17/20 01/17/20 01/17/20 12:57 14:16 18:00 Supper Temperature Pulse Rate Respiratory 17 21 H 17 Rate Respiratory Depth Respiratory Effort Blood Pressure O2 Sat by Pulse Oximetry (%) Oxygen Delivery Method Fraction of Inspired Oxygen (FIO2) 01/17/20 01/17/20 01/17/20 21:00 21:20 22:00 Supper Temperature Pulse Rate Respiratory 27 H 23 H Rate Respiratory Normal Depth Respiratory Mechanically Effort Ventilated Blood Pressure O2 Sat by Pulse Oximetry (%) Oxygen Delivery Method Fraction of Inspired Oxygen (FIO2) 01/18/20 01/18/20 01/18/20 01:34 01:49 05:00 Supper Temperature Pulse Rate Respiratory 18 22 H 22 H Rate Respiratory Depth Respiratory Effort Blood Pressure O2 Sat by Pulse Oximetry (%) Oxygen Delivery Method Fraction of Inspired Oxygen (FIO2) 01/18/20 01/18/20 01/18/20 05:42 09:00 09:15 Supper Temperature Pulse Rate Respiratory 19 18 14 Rate Respiratory Normal Depth Respiratory Mechanically Effort Ventilated Blood Pressure O2 Sat by Pulse Oximetry (%) Oxygen Delivery Method Fraction of Inspired Oxygen (FIO2) 01/18/20 01/18/20 01/18/20 13:00 13:30 17:00 Supper Temperature Pulse Rate Respiratory 18 18 20 Rate Respiratory Depth Respiratory Effort Blood Pressure O2 Sat by Pulse Oximetry (%) Oxygen Delivery Method Fraction of Inspired Oxygen (FIO2) 01/18/20 01/18/20 01/18/20 17:40 21:00 21:13 Supper Temperature Pulse Rate Respiratory 14 20 Rate Respiratory Normal Depth Respiratory Mechanically Effort Ventilated Blood Pressure O2 Sat by Pulse Oximetry (%) Oxygen Delivery Method Fraction of Inspired Oxygen (FIO2) 01/18/20 01/19/20 01/19/20 22:00 01:18 02:00 Supper NPO Temperature 99.5 F Pulse Rate 93 H Respiratory 18 20 Rate Respiratory Depth Respiratory Effort Blood Pressure 142/76 O2 Sat by Pulse 96 Oximetry (%) Oxygen Delivery Method Fraction of 40 Inspired Oxygen (FIO2) 01/19/20 01/19/20 01/19/20 05:49 06:00 09:00 Supper Temperature 98.1 F Pulse Rate 90 Respiratory 16 20 Rate Respiratory Normal Depth Respiratory Mechanically Effort Ventilated Blood Pressure 147/50 L O2 Sat by Pulse 95 98 Oximetry (%) Oxygen Delivery Mechanical Method Ventilator Fraction of 40 40 Inspired Oxygen (FIO2) 01/19/20 01/19/20 01/19/20 09:12 10:00 12:16 Supper Temperature Pulse Rate 100 H Respiratory 16 14 16 Rate Respiratory Depth Respiratory Effort Blood Pressure 128/90 O2 Sat by Pulse 96 98 95 Oximetry (%) Oxygen Delivery Mechanical Method Ventilator Fraction of 40 40 40 Inspired Oxygen (FIO2) 01/19/20 12:17 Supper Temperature Pulse Rate 81 Respiratory Rate Respiratory Depth Respiratory Effort Blood Pressure O2 Sat by Pulse 95 Oximetry (%) Oxygen Delivery Mechanical Method Ventilator Fraction of Inspired Oxygen (FIO2) Laboratory Tests 12/16/19 01/13/20 01/17/20 21:25 00:05 16:20 WBC 8.6 COVID-19 (RAJENDRA) Not detected Not detected History Source: Medical Record Limitations to Obtaining History: Clinical Condition (.) - Past Medical History Cardiovascular: Yes: AFIB, CHF, HTN Pulmonary: Yes: COPD, Previously Intubated, Sleep Apnea (uses mouth guard/jaw advancer, "CPAP didn't work/fit") Gastrointestinal: Yes: GERD Renal/: Yes: Renal Inusuff - Past Surgical History Past Surgical History: Yes: None - Smoking History Smoking history: Current every day smoker Have you smoked in the past 12 months: Yes Aproximately how many cigarettes per day: 20 If you are a former smoker, when did you quit?: 2 months ago - Alcohol/Substance Use Hx Alcohol Use: Yes History of Substance Use: reports: None - Social History ADL: Independent 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 Denied being in hospital or on breathing machine. "63", August,, x President, Retired), Able to Follow Commands, Vague, Confused, Flat Affect Attention: Mild Impairment Ability to Follow Directions: Fair Head/Neck Control: Fair, Needs Assist - Hearing Hearing: Normal Hearing Aide: No With Patient: No Speech Evaluation - Communication Primary Language: SWAZI Communication: Yes: Simple Responses (mouths words, ventilated. delayed, slow to respond) - Speech Characteristics Articulation: Yes: Imprecise (mild) - Language/Auditory Comprehension Follows: Yes: 1 Stage Simple Commands Observation: Able to respond to yes/no queries: Yes, Comprehends Conversational Speech: Yes (simple), Benefits from Slow Speech: Yes, Benefits from Repetiton: Yes, Benefits from Increased Volume of Speech: Yes - Swallow Evaluation/Bedside Assessment Current Nutritional Intake: NPO, NG Tube (to suction) Dentition: Yes: Adequate Facial Symmetry at Rest: Symmetrical Laryngeal Movement: Unable to Palpate A-P Transit: Impaired Recommendations - Speech Evaluation, Impression/Plan Impression: On ventilator. Mouths words, slow to respond,unaware on ventilator, impaired insight, memory. Constructed simple communication board (words, letters) however UE's too weak to use and pointed to incorrect letters upon request. Functionally, better able to mouth words, intermittently intelligible. Pt has been on NGT feedings since admitted 12/16/19, vented, trached. Now with . SBO, vomited this am x 2, NGT suction. pt will need PEG for Short term, once medically stable to place. Pt is a full code. PMV contraindicated at this time with significant aspiration risk. Plan for PMV,MBS when stronger. - Disposition Discharge to: Half-Way Facility - Dysphagia Impressions/Plan Swallowing Skills: Impaired Dysphagia Impressions: Suspect Aspiration Recommendations: GI Consult (Consider PEG), Palliative Care (Pt's wishes), Modified Barium Swallow (in future, once medically improved (after GI issues resolved and PMV can be assessed)), Passy Hampton Valve (contraindicated at this time) - Recommendations Diet Consistency: NPO Liquids: NPO
--- NOTE | 2020-01-19 18:48 | PN.GI ---
GI Progress Note Subjective: above events reviewed, NGT drained 700c of thick dark green bile, - Objective Vital Signs: Vital Signs Temperature 98.3 F 01/19/20 18:00 Pulse Rate 92 H 01/19/20 18:00 Respiratory Rate 18 01/19/20 18:00 Blood Pressure 147/77 01/19/20 18:00 O2 Sat by Pulse Oximetry (%) 95 01/19/20 14:58 Constitutional: Obese Gastrointestinal Inspection: Yes: Distention ...Auscultate: Yes: Hypoactive Bowel Sounds ...Palpate: Yes: Soft. No: Firm/Rigid, Guarding, Hepatomegaly, Mass, Pulsatile Mass, Splenomegaly Labs: CBC, BMP 01/17/20 16:20 01/19/20 08:18 INR, PTT INR 1.23 (0.83-1.09) H 01/10/20 13:50 Problem List - Problems (1) SBO (small bowel obstruction) Assessment/Plan: R> continue NGT drainage IV hydration serial abdominal examination Code(s): K56.609 - UNSP INTESTNL OBST, UNSP TO PARTIAL VERSUS COMPLETE OBST
--- NOTE | 2020-01-19 18:56 | PN ---
Progress Note, Physician History of Present Illness: Pt is alert, without acute distress. NGT currently in place, still draining bilious fluid. Tmax 99.5F. - Current Medication List Current Medications: Active Medications Amino Acids (Prosource No Carb Liquid Pkt) 30 ml NGT DAILY@0800 [facility] Last Admin: 01/17/20 09:52 Dose: Not Given Documented by: Apixaban (Eliquis -) 5 mg NGT BID [facility] Last Admin: 01/17/20 11:01 Dose: Not Given Documented by: Ascorbic Acid (Vitamin C Oral Solution -) 1,000 mg NGT DAILY [facility] Last Admin: 01/17/20 11:02 Dose: Not Given Documented by: Chlorhexidine Gluconate (Peridex -) 15 ml MM BID [facility] Last Admin: 01/19/20 10:19 Dose: 15 ml Documented by: Enoxaparin Sodium 80 mg/ (Enoxaparin Sodium 30 mg) 110 mg SQ Q12H [facility] Last Admin: 01/19/20 17:30 Dose: 110 mg Documented by: Vancomycin HCl (Vancomycin (Pre-Docked)) 1,000 mg in 250 mls @ 250 mls/hr IVPB BID [facility]; Protocol Last Admin: 01/19/20 10:18 Dose: 250 mls/hr Documented by: Dextrose/Sodium Chloride (D5-1/2ns+40 Meq Kcl -) 40 meq in 1,000 mls @ 50 mls/hr IV ASDIR [facility] Last Admin: 01/19/20 13:58 Dose: 50 mls/hr Documented by: Metoprolol Tartrate (Lopressor -) 25 mg NGT BID [facility] Last Admin: 01/17/20 11:01 Dose: Not Given Documented by: Metoprolol Tartrate (Lopressor Injection -) 5 mg IVPB Q4H PRN PRN Reason: HYPERTENSION Multivitamins/Minerals (Certavite-Antioxidant Liquid) 15 ml NGT DAILY [facility] Last Admin: 01/17/20 11:01 Dose: Not Given Documented by: Pantoprazole Sodium (Protonix Iv) 40 mg IVPUSH DAILY [facility] Last Admin: 01/19/20 10:10 Dose: 40 mg Documented by: - Objective Vital Signs: Vital Signs Temperature 98.3 F 01/19/20 18:00 Pulse Rate 92 H 01/19/20 18:00 Respiratory Rate 18 01/19/20 18:00 Blood Pressure 147/77 01/19/20 18:00 O2 Sat by Pulse Oximetry (%) 95 01/19/20 14:58 Constitutional: Yes: No Distress HENT: Yes: Other (NGT) Neck: Yes: Other (trach) Cardiovascular: Yes: Regular Rate and Rhythm Respiratory: Yes: Regular Gastrointestinal: Yes: Soft, Hypoactive Bowel Sounds Genitourinary: Yes: WNL Neurological: Yes: Alert Labs: CBC, BMP 01/17/20 16:20 01/19/20 08:18 INR, PTT INR 1.23 (0.83-1.09) H 01/10/20 13:50 Microbiology 01/12/20 12:43 Blood - Peripheral Venous Blood Culture - Final NO GROWTH AFTER 5 DAYS INCUBATION 01/12/20 12:48 Blood - Peripheral Venous Blood Culture - Final NO GROWTH AFTER 5 DAYS INCUBATION 01/12/20 17:30 Urine - Urine Clean Catch Urine Culture - Final NO GROWTH OBTAINED 01/06/20 21:40 Blood - Peripheral Venous Blood Culture - Final NO GROWTH AFTER 5 DAYS INCUBATION 01/06/20 21:30 Blood - Peripheral Venous Blood Culture - Final NO GROWTH AFTER 5 DAYS INCUBATION 01/07/20 12:00 Sputum - Endotrachea Suction/Ventilator Gram Stain - Final 01/07/20 12:00 Sputum - Endotrachea Suction/Ventilator Sputum Culture - Final Mr S Aureus Strep Agalactiae Group B 01/07/20 00:05 Urine - Urine Hilario Urine Culture - Final NO GROWTH OBTAINED 12/27/19 21:00 Blood - Peripheral Venous Blood Culture - Final NO GROWTH AFTER 5 DAYS INCUBATION 12/27/19 21:00 Blood - Peripheral Venous Blood Culture - Final NO GROWTH AFTER 5 DAYS INCUBATION 12/25/19 20:40 Blood - Peripheral Venous Blood Culture - Final NO GROWTH AFTER 5 DAYS INCUBATION 12/25/19 20:30 Blood - Peripheral Venous Blood Culture - Final NO GROWTH AFTER 5 DAYS INCUBATION 12/27/19 14:00 Urine - Urine Hilario Urine Culture - Final NO GROWTH OBTAINED 12/23/19 18:00 Sputum - Endotrachea Suction/Ventilator Gram Stain - Final 12/23/19 18:00 Sputum - Endotrachea Suction/Ventilator Sputum Culture - Final NORMAL RESPIRATORY PEYTON 12/23/19 17:51 Urine - Urine Hilario Urine Culture - Final NO GROWTH OBTAINED 12/16/19 20:13 Blood - Peripheral Venous Blood Culture - Final NO GROWTH AFTER 5 DAYS INCUBATION 12/16/19 19:50 Blood - Peripheral Venous Blood Culture - Final NO GROWTH AFTER 5 DAYS INCUBATION - ....Imaging Chest X-ray: Report Reviewed X-ray: Report Reviewed Problem List - Problems (1) Edema of scrotum Code(s): N50.89 - OTHER SPECIFIED DISORDERS OF THE MALE GENITAL ORGANS (2) Morbid obesity Code(s): E66.01 - MORBID (SEVERE) OBESITY DUE TO EXCESS CALORIES (3) Acute on chronic diastolic (congestive) heart failure Code(s): I50.33 - ACUTE ON CHRONIC DIASTOLIC (CONGESTIVE) HEART FAILURE (4) Acute respiratory failure requiring reintubation Code(s): J96.00 - ACUTE RESPIRATORY FAILURE, UNSP W HYPOXIA OR HYPERCAPNIA (5) Afib Code(s): I48.91 - UNSPECIFIED ATRIAL FIBRILLATION Qualifiers: Atrial fibrillation type: paroxysmal Qualified Code(s): I48.0 - Paroxysmal atrial fibrillation Assessment/Plan Acute respiratory failure s/p trach on MV PNA SBO CHF b/l LE Cellulitis b/l Hydrocele MONIE Paroxysmal AFIB COPD JUANA CAD HTN HLD -- NGT in place -- MRSA+ PNA -continue Vancomycin IV -- monitor temps-- Tmax 99.5F -- GI/Surgery following -- continue monitor vitals
[2020-01-19] MEDS ORDERED: PT OWN MED DRAWER 7, Y5N ONE (21:59)
[2020-01-20] MEDS ORDERED: ENOXAPARIN NA (PORCINE) 30 MG/0.3 ML DISP.SYRIN SQ ONE ×2 (06:06→19:34)
[2020-01-20] MEDS ORDERED: ENOXAPARIN NA (PORCINE) 80 MG/0.8 ML DISP.SYRIN SQ ONE ×2 (06:06→19:34)
[2020-01-20] MEDS: ENOXAPARIN 80 MG, ENOXAPARIN 30 MG SQ SCH ×2 (06:17→19:34)
--- NOTE | 2020-01-20 09:49 | PN ---
Progress Note, Physician - Current Medication List Current Medications: Active Medications Amino Acids (Prosource No Carb Liquid Pkt) 30 ml NGT DAILY@0800 [facility] Last Admin: 01/17/20 09:52 Dose: Not Given Documented by: Apixaban (Eliquis -) 5 mg NGT BID [facility] Last Admin: 01/17/20 11:01 Dose: Not Given Documented by: Ascorbic Acid (Vitamin C Oral Solution -) 1,000 mg NGT DAILY [facility] Last Admin: 01/17/20 11:02 Dose: Not Given Documented by: Chlorhexidine Gluconate (Peridex -) 15 ml MM BID [facility] Last Admin: 01/19/20 21:59 Dose: 15 ml Documented by: Enoxaparin Sodium 80 mg/ (Enoxaparin Sodium 30 mg) 110 mg SQ Q12H [facility] Last Admin: 01/20/20 06:17 Dose: 110 mg Documented by: Vancomycin HCl (Vancomycin (Pre-Docked)) 1,000 mg in 250 mls @ 250 mls/hr IVPB BID [facility]; Protocol Last Admin: 01/19/20 22:00 Dose: 250 mls/hr Documented by: Dextrose/Sodium Chloride (D5-1/2ns+40 Meq Kcl -) 40 meq in 1,000 mls @ 50 mls/hr IV ASDIR [facility] Last Admin: 01/19/20 13:58 Dose: 50 mls/hr Documented by: Metoprolol Tartrate (Lopressor -) 25 mg NGT BID [facility] Last Admin: 01/17/20 11:01 Dose: Not Given Documented by: Metoprolol Tartrate (Lopressor Injection -) 5 mg IVPB Q4H PRN PRN Reason: HYPERTENSION Multivitamins/Minerals (Certavite-Antioxidant Liquid) 15 ml NGT DAILY [facility] Last Admin: 01/17/20 11:01 Dose: Not Given Documented by: Pantoprazole Sodium (Protonix Iv) 40 mg IVPUSH DAILY [facility] Last Admin: 01/19/20 10:10 Dose: 40 mg Documented by: - Objective Vital Signs: Vital Signs Temperature 98.3 F 01/20/20 05:00 Pulse Rate 84 01/20/20 05:00 Respiratory Rate 14 01/20/20 06:00 Blood Pressure 130/84 01/20/20 05:00 O2 Sat by Pulse Oximetry (%) 100 01/20/20 05:00 Cardiovascular: Yes: S1, S2 Respiratory: Yes: Regular, CTA Bilaterally Gastrointestinal: Yes: Soft, Distention Labs: CBC, BMP 01/17/20 16:20 01/19/20 08:18 INR, PTT INR 1.23 (0.83-1.09) H 01/10/20 13:50 Problem List - Problems (1) Acute hypercapnic respiratory failure Code(s): J96.02 - ACUTE RESPIRATORY FAILURE WITH HYPERCAPNIA (2) Congestive heart failure (CHF) Code(s): I50.9 - HEART FAILURE, UNSPECIFIED Qualifiers: Heart failure type: diastolic Heart failure chronicity: acute on chronic Qualified Code(s): I50.33 - Acute on chronic diastolic (congestive) heart failure (3) Pneumonia Code(s): J18.9 - PNEUMONIA, UNSPECIFIED ORGANISM Qualifiers: Pneumonia type: due to unspecified organism Laterality: right Lung location: lower lobe of lung Qualified Code(s): J18.9 - Pneumonia, unspecified organism (4) Afib Code(s): I48.91 - UNSPECIFIED ATRIAL FIBRILLATION Qualifiers: Atrial fibrillation type: paroxysmal Qualified Code(s): I48.0 - Paroxysmal atrial fibrillation Assessment/Plan - Problems (1) SBO (small bowel obstruction) Assessment/Plan: -GI consult appreciated -Surgery consult appreciated -NPO -AXR today shows high grade SBO and daily in AM to evaluate SBO -Pt denies any pain -Vomitted twice this AM -NGT to low continous suction -Continue gentle IVF Problems reviewed: Yes Code(s): K56.609 - UNSP INTESTNL OBST, UNSP TO PARTIAL VERSUS COMPLETE OBST (2) Morbid obesity Problems reviewed: Yes Code(s): E66.01 - MORBID (SEVERE) OBESITY DUE TO EXCESS CALORIES (3) Pneumonia Assessment/Plan: -ID consult appreciated -Afebrile -Cultures: Microbiology 01/12/20 12:43 Blood Culture - Final Blood - Peripheral Venous NO GROWTH AFTER 5 DAYS INCUBATION 01/12/20 12:48 Blood Culture - Final Blood - Peripheral Venous NO GROWTH AFTER 5 DAYS INCUBATION -SC:MRSA -On IV Vanco Problems reviewed: Yes Code(s): J18.9 - PNEUMONIA, UNSPECIFIED ORGANISM Qualifiers: Pneumonia type: due to unspecified organism Laterality: right Lung location: lower lobe of lung Qualified Code(s): J18.9 - Pneumonia, unspecified organism (4) Atrial fibrillation Assessment/Plan: -Start Lovenox BID until able to use GT Problems reviewed: Yes Code(s): I48.91 - UNSPECIFIED ATRIAL FIBRILLATION Qualifiers: Atrial fibrillation type: paroxysmal Qualified Code(s): I48.0 - Paroxysmal atrial fibrillation (5) Respiratory failure with hypoxia and hypercapnia Assessment/Plan: -Pulmonary on board -S/P trach -Mech vent -Wean as tolerated -LTAC placement upon discharge -Trial of Passy jaki Problems reviewed: Yes Code(s): J96.91 - RESPIRATORY FAILURE, UNSPECIFIED WITH HYPOXIA; J96.92 - RESPIRATORY FAILURE, UNSPECIFIED WITH HYPERCAPNIA Qualifiers: Chronicity: acute on chronic Qualified Code(s): J96.21 - Acute and chronic respiratory failure with hypoxia; J96.22 - Acute and chronic respiratory failure with hypercapnia (6) Hypokalemia Assessment/Plan: -KCL IV 10 meq x 3 again today -Gentle IVF-D51/2 NS+ KCl40 meq @ 50cc/hr -Nephrology on board -Monitor trend Problems reviewed: Yes Code(s): E87.6 - HYPOKALEMIA (7) MRSA (methicillin resistant staphylococcus aureus) pneumonia Problems reviewed: Yes Code(s): J15.212 - PNEUMONIA DUE TO METHICILLIN RESISTANT STAPHYLOCOCCUS AUREUS
--- NOTE | 2020-01-20 10:00 | PN ---
Progress Note (short form) - Note Progress Note: 64 year old male with a past medical history of HTN, HLD, JUANA (not using CPAP), COPD, GERD, systolic congestive heart failure, paroxysmal atrial fibrillation (on Eliquis, s/p cardioversion 11/2016) who presented with 3 weeks of gradual onset anasarca, scrotal swelling and mild shortness of breath worse on exertion. CXR s/f diffused bilat opacities with c/f PNA +/-fluid overload, ?bilateral lower extremity cellulitis and bilateral hydrocele, and respiratory acidosis is admitted for Acute hypercapneic respiratory failure and Acute CHF exacerbation, intubated for progressive hypercarbic respiratory failure, decreased mental status on BiPAP. 01/11/2020 s/p percutaneous tracheostomy, awake off sedation. Vented on volume assist control with 40% FiO2, PEEP 5. Placed on CPAP/PS. 01/12/2020 Off sedation on vent 01/12: no acute cardiac events; had elevated temp 01/13: No significant change01/14: No cardiac events 01/15: Vented, awake. Currently on SIMV RR 8 PS 10. Abd slightly distended 01/16: Vented awake on SIMV RR 8 PS 10. No fevers. 01/17: Ileus noted on abd/pelvic CT, interactive on vent 01/18: Small BM, NGT inserted 01/19: No acute cardiac events - Objective Vital Signs: Temperature 98.3 F 01/20/20 05:00 Pulse Rate 84 01/20/20 05:00 Respiratory Rate 14 01/20/20 06:00 Blood Pressure 130/84 01/20/20 05:00 O2 Sat by Pulse Oximetry (%) 100 01/20/20 05:00 Neck: Yes: Other (Tracheostomy) Cardiovascular: Yes: Regular Rate and Rhythm Respiratory: Yes: Mechanically Ventilated, Rhonchi Gastrointestinal: Yes: Normal Bowel Sounds, Soft Edema: No Integumentary: Yes: Venous Stasis Changes Labs: CBC, BMP 01/17/20 16:20 01/19/20 08:18 Active Medications Amino Acids (Prosource No Carb Liquid Pkt) 30 ml NGT DAILY@0800 [facility] Last Admin: 01/17/20 09:52 Dose: Not Given Documented by: Apixaban (Eliquis -) 5 mg NGT BID [facility] Last Admin: 01/17/20 11:01 Dose: Not Given Documented by: Ascorbic Acid (Vitamin C Oral Solution -) 1,000 mg NGT DAILY [facility] Last Admin: 01/17/20 11:02 Dose: Not Given Documented by: Chlorhexidine Gluconate (Peridex -) 15 ml MM BID [facility] Last Admin: 01/19/20 21:59 Dose: 15 ml Documented by: Enoxaparin Sodium 80 mg/ (Enoxaparin Sodium 30 mg) 110 mg SQ Q12H [facility] Last Admin: 01/20/20 06:17 Dose: 110 mg Documented by: Vancomycin HCl (Vancomycin (Pre-Docked)) 1,000 mg in 250 mls @ 250 mls/hr IVPB BID [facility]; Protocol Last Admin: 01/19/20 22:00 Dose: 250 mls/hr Documented by: Dextrose/Sodium Chloride (D5-1/2ns+40 Meq Kcl -) 40 meq in 1,000 mls @ 50 mls/hr IV ASDIR [facility] Last Admin: 01/19/20 13:58 Dose: 50 mls/hr Documented by: Metoprolol Tartrate (Lopressor -) 25 mg NGT BID [facility] Last Admin: 01/17/20 11:01 Dose: Not Given Documented by: Metoprolol Tartrate (Lopressor Injection -) 5 mg IVPB Q4H PRN PRN Reason: HYPERTENSION Multivitamins/Minerals (Certavite-Antioxidant Liquid) 15 ml NGT DAILY [facility] Last Admin: 01/17/20 11:01 Dose: Not Given Documented by: Pantoprazole Sodium (Protonix Iv) 40 mg IVPUSH DAILY [facility] Last Admin: 01/19/20 10:10 Dose: 40 mg Documented by: Problem List - Problems (1) Congestive heart failure (CHF) Code(s): I50.9 - HEART FAILURE, UNSPECIFIED Qualifiers: Heart failure type: diastolic Heart failure chronicity: acute on chronic Qualified Code(s): I50.33 - Acute on chronic diastolic (congestive) heart failure (2) Pneumonia Code(s): J18.9 - PNEUMONIA, UNSPECIFIED ORGANISM Qualifiers: Pneumonia type: due to unspecified organism Laterality: right Lung location: lower lobe of lung Qualified Code(s): J18.9 - Pneumonia, unspecified organism (3) Acute on chronic diastolic (congestive) heart failure Code(s): I50.33 - ACUTE ON CHRONIC DIASTOLIC (CONGESTIVE) HEART FAILURE (4) Acute respiratory failure with hypoxia and hypercarbia Code(s): J96.01 - ACUTE RESPIRATORY FAILURE WITH HYPOXIA; J96.02 - ACUTE RESPIRATORY FAILURE WITH HYPERCAPNIA (5) Atrial fibrillation Code(s): I48.91 - UNSPECIFIED ATRIAL FIBRILLATION Qualifiers: Atrial fibrillation type: paroxysmal Qualified Code(s): I48.0 - Paroxysmal atrial fibrillation (6) COPD (chronic obstructive pulmonary disease) Code(s): J44.9 - CHRONIC OBSTRUCTIVE PULMONARY DISEASE, UNSPECIFIED Qualifiers: COPD type: unspecified COPD Qualified Code(s): J44.9 - Chronic obstructive pulmonary disease, unspecified (7) Hypertension Code(s): I10 - ESSENTIAL (PRIMARY) HYPERTENSION Qualifiers: Hypertension type: essential hypertension Qualified Code(s): I10 - Essential (primary) hypertension (8) Pleural effusion Code(s): J90 - PLEURAL EFFUSION, NOT ELSEWHERE CLASSIFIED Assessment/Plan 10/26/2017 Normal LV size with mild LVH, normal LV fxn, normal RV size and fxn, mild LAE, mild MR, mild-mod TR, mild MA, RVSP 43 mmHg 11/19/2016 [facility] Myoview: Apical ischemia, LVEF 45-52% 10/06/2016 Echocardiography revealed mild to moderate LV systolic dysfunction, moderate TR, RVSP of 30-40 mmHg 1. Acute on chronic Hypoxic and Hypercapneic Respiratory Failure with tracheostomy 2. Acute on chronic LV Diastolic Heart Failure with pleural effusion 3. Pneumonia (septic shock) 4. Paroxysmal atrial fibrillation with periods of rapid ventricular response post DCCV, [id number] score of 2 5. Obstructive Sleep Apnea/Obesity 6. HTN/HCVD 7. Hypercholesterolemia 8. CAD, angina pectoris 9. Bilateral cellulitis with h/o abscess s/p debridement 10. Bilateral hydrocele 11. Ileus due to underlying co morbid conditions PLAN: Same: 1. Vent support via tracheostomy 2. DVT and GI prophylaxis and enteral feeds held 3. Diuretics held with monitor renal function and electrolytes 4. Continue Lopressor 25 mg BID and Eliquis 5 mg BID (via NGT)
[2020-01-20 10:04] LABS: BASO % 0.6 % (0-2.0); HEMATOCRIT 38.7 % (35.4-49); HEMOGLOBIN 11.6 GM/dL (11.7-16.9); LYMPH % 14.4 % (8-40); MCH 24.2 pg (25.7-33.7); MEAN CELL VOLUME 80.9 fl (80-96); MEAN PLT VOLUME 9.1 fl (7.5-11.1); MONO % 10.5 % (3.8-10.2); NEUT % 67.5 % (42.8-82.8); PLATELET COUNT 123 K/MM3 (134-434); RBC 4.78 M/mm3 (4.00-5.60); RDW 23.7 % (11.9-15.9); WHITE BLOOD COUNT 7.1 K/mm3 (4.0-10.0)
[2020-01-20] MEDS: PANTOPRAZOLE SODIUM 40 MG VIAL IVPUSH SCH (10:06)
[2020-01-20] MEDS: CHLORHEXIDINE GLUCONATE 0.12% 15ML CUP MM SCH ×2 (10:06→22:42)
[2020-01-20] MEDS: VANCOMYCIN 1 GRAM (PRE-DOCKED) 1,000 MG/250 ML BAG IVPB SCH ×2 (10:08→22:42)
[2020-01-20 10:28] LABS: ALBUMIN 2.3 g/dl (3.4-5.0); BILIRUBIN,TOTAL 2.4 mg/dL (0.2-1); BLOOD UREA NITROGEN 7.9 mg/dL (7-18); CALCIUM 8.4 mg/dL (8.5-10.1); CREATININE 0.5 mg/dL (0.55-1.3); POTASSIUM 3.1 mmol/L (3.5-5.1); TOT PROT 5.4 g/dl (6.4-8.2)
--- NOTE | 2020-01-20 11:22 | PN ---
Progress Note (short form) - Note Progress Note: Attending Surgeon Seen in f/u; having bowel movements abdo-soft and less distended; minimal tympany; no tenderness. AXR-no gastric distention; diffuse dilated small bowel loops IMP: ileus PLAN: Continue NPO/NGT; will f/u. Олег Gonzalez MD FACS
--- NOTE | 2020-01-20 11:26 | PN ---
Progress Note, Physician History of Present Illness: pulmonary alert,comfortable,on vent support ac mode,-resp distress. - Current Medication List Current Medications: Active Medications Amino Acids (Prosource No Carb Liquid Pkt) 30 ml NGT DAILY@0800 [facility] Last Admin: 01/17/20 09:52 Dose: Not Given Documented by: Apixaban (Eliquis -) 5 mg NGT BID [facility] Last Admin: 01/17/20 11:01 Dose: Not Given Documented by: Ascorbic Acid (Vitamin C Oral Solution -) 1,000 mg NGT DAILY [facility] Last Admin: 01/17/20 11:02 Dose: Not Given Documented by: Chlorhexidine Gluconate (Peridex -) 15 ml MM BID [facility] Last Admin: 01/20/20 10:06 Dose: 15 ml Documented by: Enoxaparin Sodium 80 mg/ (Enoxaparin Sodium 30 mg) 110 mg SQ Q12H [facility] Last Admin: 01/20/20 06:17 Dose: 110 mg Documented by: Vancomycin HCl (Vancomycin (Pre-Docked)) 1,000 mg in 250 mls @ 250 mls/hr IVPB BID [facility]; Protocol Last Admin: 01/20/20 10:08 Dose: 250 mls/hr Documented by: Dextrose/Sodium Chloride (D5-1/2ns+40 Meq Kcl -) 40 meq in 1,000 mls @ 50 mls/hr IV ASDIR [facility] Last Admin: 01/19/20 13:58 Dose: 50 mls/hr Documented by: Metoprolol Tartrate (Lopressor -) 25 mg NGT BID [facility] Last Admin: 01/17/20 11:01 Dose: Not Given Documented by: Metoprolol Tartrate (Lopressor Injection -) 5 mg IVPB Q4H PRN PRN Reason: HYPERTENSION Multivitamins/Minerals (Certavite-Antioxidant Liquid) 15 ml NGT DAILY [facility] Last Admin: 01/17/20 11:01 Dose: Not Given Documented by: Pantoprazole Sodium (Protonix Iv) 40 mg IVPUSH DAILY [facility] Last Admin: 01/20/20 10:06 Dose: 40 mg Documented by: - Objective Vital Signs: Vital Signs Temperature 98.3 F 01/20/20 05:00 Pulse Rate 84 01/20/20 05:00 Respiratory Rate 16 01/20/20 09:34 Blood Pressure 130/84 01/20/20 05:00 O2 Sat by Pulse Oximetry (%) 95 01/20/20 09:34 Constitutional: Yes: Well Nourished, Calm Eyes: Yes: WNL HENT: Yes: WNL Neck: Yes: WNL Cardiovascular: Yes: Regular Rate and Rhythm, S1, S2 Respiratory: Yes: Rhonchi (few rhonchi) Gastrointestinal: Yes: Normal Bowel Sounds, Soft Edema: Yes Peripheral Pulses WNL: Yes Labs: CBC, BMP 01/20/20 09:43 01/20/20 06:00 INR, PTT INR 1.23 (0.83-1.09) H 01/10/20 13:50 Assessment/Plan ASSESSMENT AND PLAN: Acute on Chronic Hypoxic and Hypercapneic Respiratory Failure Pneumonia ARDS improved S/P Septic Shock Acute on Chronic Diastolic Heart Failure Pulmonary HTN Paroxysmal Atrial Fibrillation CAD Acute Kidney Injury Likely COPD JUANA/OHS HTN Hypercholesterolemia - antibiotics per ID - rate control - anticoagulation - spontaneous breathing trials as tolerated - titrate FiO2, PEEP to keep SpO2 >90% - monitor urine output, creatinine - enteral feeds - DVT/GI prophylaxis - pmv as tolerated DR MELTON
--- NOTE | 2020-01-20 11:29 | PN ---
Progress Note (short form) - Note Progress Note: NGT at 53cm, advanced to 63cm and secured in place with NGT specific dressing and tape. Light brown drainage noted and air ausculated over the epigastric region. <Joyce Thomason - Last Filed: 01/20/20 11:27> - Note Progress Note: Attending Surgeon: I personally saw and examined the patient. My examination reveals a patient with probable ileus/pseudoobstruction. I discussed the case with the surgical PA and agree with their findings and plan of care with any exceptions as noted. Please correct K and check phosphorus Олег Gonzalez MD, FACS <Олег Gonzalez - Last Filed: 01/20/20 14:50>
[2020-01-20] MEDS ORDERED: POTASSIUM CHLORIDE 40 MEQ in AMINO ACIDS 4.25%/D5W 1,000 ML IVPB SCH ×2 (12:30→12:31)
[2020-01-20] MEDS: D5-1/2NS+40 MEQ KCL - 40 MEQ/1,000 ML INFUS.BAG IV SCH (13:36)
[2020-01-20] MEDS: KCL 10 MEQ IVPB 10 MEQ/100 ML INFUS.BAG IVPB SCH ×3 (14:22→18:36)
[2020-01-20] MEDS: POTASSIUM CHLORIDE 40 MEQ in AMINO ACIDS 4.25%/D5W 1,000 ML IVPB SCH (18:49)
--- NOTE | 2020-01-20 20:30 | PN ---
Progress Note, Physician History of Present Illness: Pt with low grade fevers Tmax 99.8F. Alert, without distress. NGT in place. - Current Medication List Current Medications: Active Medications Amino Acids (Prosource No Carb Liquid Pkt) 30 ml NGT DAILY@0800 [facility] Last Admin: 01/17/20 09:52 Dose: Not Given Documented by: Apixaban (Eliquis -) 5 mg NGT BID [facility] Last Admin: 01/17/20 11:01 Dose: Not Given Documented by: Ascorbic Acid (Vitamin C Oral Solution -) 1,000 mg NGT DAILY [facility] Last Admin: 01/17/20 11:02 Dose: Not Given Documented by: Chlorhexidine Gluconate (Peridex -) 15 ml MM BID [facility] Last Admin: 01/20/20 10:06 Dose: 15 ml Documented by: Enoxaparin Sodium 80 mg/ (Enoxaparin Sodium 30 mg) 110 mg SQ Q12H [facility] Last Admin: 01/20/20 19:34 Dose: 110 mg Documented by: Vancomycin HCl (Vancomycin (Pre-Docked)) 1,000 mg in 250 mls @ 250 mls/hr IVPB BID [facility]; Protocol Last Admin: 01/20/20 10:08 Dose: 250 mls/hr Documented by: Potassium Chloride 40 meq/ (Amino Acids) 1,020 mls @ 83 mls/hr IVPB Q12H [facility] Last Admin: 01/20/20 18:49 Dose: 83 mls/hr Documented by: Metoprolol Tartrate (Lopressor -) 25 mg NGT BID [facility] Last Admin: 01/17/20 11:01 Dose: Not Given Documented by: Metoprolol Tartrate (Lopressor Injection -) 5 mg IVPB Q4H PRN PRN Reason: HYPERTENSION Multivitamins/Minerals (Certavite-Antioxidant Liquid) 15 ml NGT DAILY [facility] Last Admin: 01/17/20 11:01 Dose: Not Given Documented by: Pantoprazole Sodium (Protonix Iv) 40 mg IVPUSH DAILY [facility] Last Admin: 01/20/20 10:06 Dose: 40 mg Documented by: - Objective Vital Signs: Vital Signs Temperature 99.8 F H 01/20/20 18:00 Pulse Rate 88 01/20/20 18:00 Respiratory Rate 20 01/20/20 18:00 Blood Pressure 138/79 01/20/20 18:00 O2 Sat by Pulse Oximetry (%) 98 01/20/20 18:00 Constitutional: Yes: No Distress HENT: Yes: Other (NGT) Cardiovascular: Yes: Regular Rate and Rhythm Respiratory: Yes: Mechanically Ventilated, Other (trach) Gastrointestinal: Yes: Soft, Distention Neurological: Yes: Alert Labs: CBC, BMP 01/20/20 09:43 01/20/20 06:00 INR, PTT INR 1.23 (0.83-1.09) H 01/10/20 13:50 Problem List - Problems (1) Edema of scrotum Code(s): N50.89 - OTHER SPECIFIED DISORDERS OF THE MALE GENITAL ORGANS (2) Morbid obesity Code(s): E66.01 - MORBID (SEVERE) OBESITY DUE TO EXCESS CALORIES (3) Acute on chronic diastolic (congestive) heart failure Code(s): I50.33 - ACUTE ON CHRONIC DIASTOLIC (CONGESTIVE) HEART FAILURE (4) Acute respiratory failure requiring reintubation Code(s): J96.00 - ACUTE RESPIRATORY FAILURE, UNSP W HYPOXIA OR HYPERCAPNIA (5) Afib Code(s): I48.91 - UNSPECIFIED ATRIAL FIBRILLATION Qualifiers: Atrial fibrillation type: paroxysmal Qualified Code(s): I48.0 - Paroxysmal atrial fibrillation Assessment/Plan Acute respiratory failure s/p trach on MV PNA Ileus vs. SBO CHF b/l LE Cellulitis b/l Hydrocele MONIE Paroxysmal AFIB COPD JUANA CAD HTN HLD -- Low grade fevers. Will consider adding Zosyn if persists in setting of prolonged ileus vs SBO -- MRSA+ PNA -continue Vancomycin IV -- Surgical follow up -- continue monitor vitals
[2020-01-20] MEDS ORDERED: PT OWN MED DRAWER 7, Y5N ONE (22:19)
[2020-01-21] MEDS: POTASSIUM CHLORIDE 40 MEQ in AMINO ACIDS 4.25%/D5W 1,000 ML IVPB SCH ×3 (01:27→23:03)
[2020-01-21] MEDS ORDERED: ENOXAPARIN NA (PORCINE) 80 MG/0.8 ML DISP.SYRIN SQ ONE ×2 (05:54→17:16)
[2020-01-21] MEDS ORDERED: ENOXAPARIN NA (PORCINE) 30 MG/0.3 ML DISP.SYRIN SQ ONE ×2 (05:54→17:16)
[2020-01-21] MEDS: ENOXAPARIN 80 MG, ENOXAPARIN 30 MG SQ SCH ×2 (06:06→17:31)
--- NOTE | 2020-01-21 07:38 | PN.GI ---
GI Progress Note Subjective: status unchanged - Objective Vital Signs: Vital Signs Temperature 98.2 F 01/21/20 06:00 Pulse Rate 91 H 01/21/20 06:00 Respiratory Rate 15 01/21/20 06:13 Blood Pressure 138/70 01/21/20 06:00 O2 Sat by Pulse Oximetry (%) 96 01/21/20 06:00 Constitutional: No Distress Respiratory: Yes: WNL, Regular, CTA Bilaterally Gastrointestinal Inspection: Yes: WNL ...Auscultate: Yes: Other (less distension / bowel sounds present) Edema: Yes Labs: CBC, BMP 01/20/20 09:43 01/20/20 06:00 INR, PTT INR 1.23 (0.83-1.09) H 01/10/20 13:50 Problem List - Problems (1) Pseudoobstruction of colon Assessment/Plan: -npo / ivf's - ngt - keep all electrolytes wnl - surgery f/u Code(s): K59.8 - OTHER SPECIFIED FUNCTIONAL INTESTINAL DISORDERS (2) Cellulitis Code(s): L03.90 - CELLULITIS, UNSPECIFIED (3) Congestive heart failure (CHF) Code(s): I50.9 - HEART FAILURE, UNSPECIFIED Qualifiers: Heart failure type: diastolic Heart failure chronicity: acute on chronic Qualified Code(s): I50.33 - Acute on chronic diastolic (congestive) heart failu re (4) Morbid obesity Code(s): E66.01 - MORBID (SEVERE) OBESITY DUE TO EXCESS CALORIES
[2020-01-21 08:48] LABS: BASO % 0.7 % (0-2.0); EOS % 7.7 % (0-4.5); HEMATOCRIT 37.4 % (35.4-49); HEMOGLOBIN 11.1 GM/dL (11.7-16.9); LYMPH % 13.4 % (8-40); MCH 24.3 pg (25.7-33.7); MCHC 29.6 g/dl (32.0-35.9); MEAN CELL VOLUME 82.3 fl (80-96); MEAN PLT VOLUME 9.4 fl (7.5-11.1); MONO % 9.1 % (3.8-10.2); NEUT % 69.1 % (42.8-82.8); PLATELET COUNT 132 K/MM3 (134-434); RBC 4.55 M/mm3 (4.00-5.60); WHITE BLOOD COUNT 6.7 K/mm3 (4.0-10.0)
[2020-01-21 09:17] LABS: ALBUMIN 2.2 g/dl (3.4-5.0); BILIRUBIN,TOTAL 2.4 mg/dL (0.2-1); BLOOD UREA NITROGEN 11.1 mg/dL (7-18); CALCIUM 8.4 mg/dL (8.5-10.1); CREATININE 0.5 mg/dL (0.55-1.3); MAGNESIUM 1.7 mg/dL (1.8-2.4); PHOSPHOROUS 3.3 mg/dL (2.5-4.9); POTASSIUM 3.2 mmol/L (3.5-5.1); TOT PROT 5.4 g/dl (6.4-8.2)
--- NOTE | 2020-01-21 09:20 | PN ---
Progress Note (short form) - Note Progress Note: Attending Surgeon More alert today; had large loose BM last PM; none this AM VSS AF abdo-softer and ? less distended; no tenderness elytes pending AXR pending IMP: ileus/pseudoobstruction PLAN: Continue NGT to LOW CONTINUOUS WALL SUCTION; IVF/IV nutrition; correct K and Phosphorous as needed; AXR. Олег Gonzalez MD FACS
--- NOTE | 2020-01-21 10:29 | PN ---
Progress Note, Physician - Current Medication List Current Medications: Active Medications Amino Acids (Prosource No Carb Liquid Pkt) 30 ml NGT DAILY@0800 [facility] Last Admin: 01/17/20 09:52 Dose: Not Given Documented by: Apixaban (Eliquis -) 5 mg NGT BID [facility] Last Admin: 01/17/20 11:01 Dose: Not Given Documented by: Ascorbic Acid (Vitamin C Oral Solution -) 1,000 mg NGT DAILY [facility] Last Admin: 01/17/20 11:02 Dose: Not Given Documented by: Chlorhexidine Gluconate (Peridex -) 15 ml MM BID [facility] Last Admin: 01/20/20 22:42 Dose: 15 ml Documented by: Enoxaparin Sodium 80 mg/ (Enoxaparin Sodium 30 mg) 110 mg SQ Q12H [facility] Last Admin: 01/21/20 06:06 Dose: 110 mg Documented by: Vancomycin HCl (Vancomycin (Pre-Docked)) 1,000 mg in 250 mls @ 250 mls/hr IVPB BID [facility]; Protocol Last Admin: 01/20/20 22:42 Dose: 250 mls/hr Documented by: Potassium Chloride 40 meq/ (Amino Acids) 1,020 mls @ 83 mls/hr IVPB Q12H [facility] Last Admin: 01/21/20 01:27 Dose: Not Given Documented by: Metoprolol Tartrate (Lopressor -) 25 mg NGT BID [facility] Last Admin: 01/17/20 11:01 Dose: Not Given Documented by: Metoprolol Tartrate (Lopressor Injection -) 5 mg IVPB Q4H PRN PRN Reason: HYPERTENSION Multivitamins/Minerals (Certavite-Antioxidant Liquid) 15 ml NGT DAILY [facility] Last Admin: 01/17/20 11:01 Dose: Not Given Documented by: Pantoprazole Sodium (Protonix Iv) 40 mg IVPUSH DAILY [facility] Last Admin: 01/20/20 10:06 Dose: 40 mg Documented by: - Objective Vital Signs: Vital Signs Temperature 98.2 F 01/21/20 06:00 Pulse Rate 85 01/21/20 08:52 Respiratory Rate 19 01/21/20 08:52 Blood Pressure 138/70 01/21/20 06:00 O2 Sat by Pulse Oximetry (%) 95 01/21/20 08:52 Cardiovascular: Yes: S1, S2 Respiratory: Yes: Mechanically Ventilated Gastrointestinal: Yes: Distention, Hypoactive Bowel Sounds Labs: CBC, BMP 01/21/20 07:55 01/21/20 07:55 INR, PTT INR 1.23 (0.83-1.09) H 01/10/20 13:50 Problem List - Problems (1) Acute hypercapnic respiratory failure Code(s): J96.02 - ACUTE RESPIRATORY FAILURE WITH HYPERCAPNIA (2) Congestive heart failure (CHF) Code(s): I50.9 - HEART FAILURE, UNSPECIFIED Qualifiers: Heart failure type: diastolic Heart failure chronicity: acute on chronic Qualified Code(s): I50.33 - Acute on chronic diastolic (congestive) heart failure (3) Pneumonia Code(s): J18.9 - PNEUMONIA, UNSPECIFIED ORGANISM Qualifiers: Pneumonia type: due to unspecified organism Laterality: right Lung location: lower lobe of lung Qualified Code(s): J18.9 - Pneumonia, unspecified organism (4) Afib Code(s): I48.91 - UNSPECIFIED ATRIAL FIBRILLATION Qualifiers: Atrial fibrillation type: paroxysmal Qualified Code(s): I48.0 - Paroxysmal atrial fibrillation Assessment/Plan - Problems (1) SBO (small bowel obstruction) Assessment/Plan: -GI consult appreciated -Surgery consult appreciated -NPO -AXR today shows high grade SBO and daily in AM to evaluate SBO -Pt denies any pain -Vomitted twice this AM -NGT to low continous suction -Continue gentle IVF Problems reviewed: Yes Code(s): K56.609 - UNSP INTESTNL OBST, UNSP TO PARTIAL VERSUS COMPLETE OBST (2) Morbid obesity Problems reviewed: Yes Code(s): E66.01 - MORBID (SEVERE) OBESITY DUE TO EXCESS CALORIES (3) Pneumonia Assessment/Plan: -ID consult appreciated -Afebrile -Cultures: Microbiology 01/12/20 12:43 Blood Culture - Final Blood - Peripheral Venous NO GROWTH AFTER 5 DAYS INCUBATION 01/12/20 12:48 Blood Culture - Final Blood - Peripheral Venous NO GROWTH AFTER 5 DAYS INCUBATION -SC:MRSA -On IV Vanco Problems reviewed: Yes Code(s): J18.9 - PNEUMONIA, UNSPECIFIED ORGANISM Qualifiers: Pneumonia type: due to unspecified organism Laterality: right Lung location: lower lobe of lung Qualified Code(s): J18.9 - Pneumonia, unspecified organism (4) Atrial fibrillation Assessment/Plan: -Start Lovenox BID until able to use GT Problems reviewed: Yes Code(s): I48.91 - UNSPECIFIED ATRIAL FIBRILLATION Qualifiers: Atrial fibrillation type: paroxysmal Qualified Code(s): I48.0 - Paroxysmal atrial fibrillation (5) Respiratory failure with hypoxia and hypercapnia Assessment/Plan: -Pulmonary on board -S/P trach -Mech vent -Wean as tolerated -LTAC placement upon discharge -Trial of Passy jaki Problems reviewed: Yes Code(s): J96.91 - RESPIRATORY FAILURE, UNSPECIFIED WITH HYPOXIA; J96.92 - RESPIRATORY FAILURE, UNSPECIFIED WITH HYPERCAPNIA Qualifiers: Chronicity: acute on chronic Qualified Code(s): J96.21 - Acute and chronic respiratory failure with hypoxia; J96.22 - Acute and chronic respiratory failure with hypercapnia (6) Hypokalemia Assessment/Plan: -KCL IV 10 meq x 3 again today -Gentle IVF-D51/2 NS+ KCl40 meq @ 50cc/hr -Nephrology on board -Monitor trend Problems reviewed: Yes Code(s): E87.6 - HYPOKALEMIA (7) MRSA (methicillin resistant staphylococcus aureus) pneumonia Problems reviewed: Yes Code(s): J15.212 - PNEUMONIA DUE TO METHICILLIN RESISTANT STAPHYLOCOCCUS AUREUS
[2020-01-21 10:31] LABS: ANISOCYTOSIS 1+; MACROCYTOSIS 0; PLATELET ESTIMATE DECREASED
[2020-01-21] MEDS: CHLORHEXIDINE GLUCONATE 0.12% 15ML CUP MM SCH ×2 (11:14→21:51)
[2020-01-21] MEDS: PANTOPRAZOLE SODIUM 40 MG VIAL IVPUSH SCH (11:14)
[2020-01-21] MEDS: VANCOMYCIN 1 GRAM (PRE-DOCKED) 1,000 MG/250 ML BAG IVPB SCH ×2 (11:24→21:51)
[2020-01-21] MEDS ORDERED: MAGNESIUM SULF 50% (8.12 MEQ/2 ML-1 GM VIAL) IVPB ONE (14:15)
--- NOTE | 2020-01-21 14:28 | PN ---
Progress Note (short form) - Note Progress Note: covering dr moreno Problems 1. MONIE 2. CHF acute 3. acute resp failure requiring intubation 4. atrial fibrillation 5. hx of htn 6. obesity 7. chronic smoker 8. hypokalemia 1. MONIE 2. CHF acute 3. acute resp failure requiring intubation 4. atrial fibrillation 5. hx of htn 6. obesity 7. chronic smoker 8. hypokalemia 9. partial sbo Lungs clear vented sounds Heart reg Abd soft Ext 1+ edema CBC, BMP 01/21/20 07:55 01/21/20 07:55 CBC, BMP 12/25/19 04:00 12/25/19 04:00 CBC, BMP 12/23/19 05:00 12/24/19 06:00 Intake & Output 12/23/19 12/24/19 12/24/19 23:59 07:59 15:59 Intake Total 100 662 Output Total 10 400 Balance 90 262 Weight 242 lb 12.8 oz MONIE improved sbo on clinimix Hypokalemia Plan- monitor labs
[2020-01-21] MEDS ORDERED: MAGNESIUM 1GM/D5W - 1 GM/100 ML IVPB IVPB ONE (14:30)
--- NOTE | 2020-01-21 14:38 | PN ---
Progress Note (short form) - Note Progress Note: Awake and alert on AC Mode of vent. Has been tolerating SIMV. Some residual abdominal tenderness. Intake & Output 01/18/20 01/19/20 01/20/20 01/21/20 23:59 23:59 23:59 23:59 Intake Total 1900 1975 1750 1000 Output Total 1000 1700 3000 500 Balance 900 275 -1250 500 Weight 233 lb 14.4 oz 224 lb 5 oz 218 lb 9 oz Last Vital Signs Temp Pulse Resp BP Pulse Ox 98.5 F 84 13 148/77 95 01/21/20 10:00 01/21/20 10:00 01/21/20 11:20 01/21/20 10:00 01/21/20 11:20 Active Medications Amino Acids (Prosource No Carb Liquid Pkt) 30 ml NGT DAILY@0800 [facility] Last Admin: 01/17/20 09:52 Dose: Not Given Documented by: Apixaban (Eliquis -) 5 mg NGT BID [facility] Last Admin: 01/17/20 11:01 Dose: Not Given Documented by: Ascorbic Acid (Vitamin C Oral Solution -) 1,000 mg NGT DAILY [facility] Last Admin: 01/17/20 11:02 Dose: Not Given Documented by: Chlorhexidine Gluconate (Peridex -) 15 ml MM BID [facility] Last Admin: 01/21/20 11:14 Dose: 15 ml Documented by: Enoxaparin Sodium 80 mg/ (Enoxaparin Sodium 30 mg) 110 mg SQ Q12H [facility] Last Admin: 01/21/20 06:06 Dose: 110 mg Documented by: Vancomycin HCl (Vancomycin (Pre-Docked)) 1,000 mg in 250 mls @ 250 mls/hr IVPB BID [facility]; Protocol Last Admin: 01/21/20 11:24 Dose: 250 mls/hr Documented by: Potassium Chloride 40 meq/ (Amino Acids) 1,020 mls @ 83 mls/hr IVPB Q12H [facility] Last Admin: 01/21/20 01:27 Dose: Not Given Documented by: Potassium Chloride (Potassium Chloride 10 Meq Premix Ivpb -) 10 meq in 100 mls @ 100 mls/hr IVPB Q60M [facility] Stop: 01/21/20 16:14 Magnesium Sulfate/Dextrose (Magnesium 1gm/D5w -) 1 gm in 100 mls @ 100 mls/hr IVPB ONCE ONE Stop: 01/21/20 15:29 Metoprolol Tartrate (Lopressor -) 25 mg NGT BID [facility] Last Admin: 01/17/20 11:01 Dose: Not Given Documented by: Metoprolol Tartrate (Lopressor Injection -) 5 mg IVPB Q4H PRN PRN Reason: HYPERTENSION Multivitamins/Minerals (Certavite-Antioxidant Liquid) 15 ml NGT DAILY [facility] Last Admin: 01/17/20 11:01 Dose: Not Given Documented by: Pantoprazole Sodium (Protonix Iv) 40 mg IVPUSH DAILY [facility] Last Admin: 01/21/20 11:14 Dose: 40 mg Documented by: Gen: vented, awake Heart: RRR Lung: scattered rhonchi Abd: softly distended, nontender Ext: no edema Laboratory Results - last 24 hr 01/21/20 01/21/20 07:55 07:55 WBC 6.7 RBC 4.55 Hgb 11.1 L Hct 37.4 MCV 82.3 MCH 24.3 L MCHC 29.6 L RDW 24.0 H Plt Count 132 L MPV 9.4 Absolute Neuts (auto) 4.7 Neutrophils % 69.1 Lymphocytes % 13.4 Monocytes % 9.1 Eosinophils % 7.7 H Basophils % 0.7 Nucleated RBC % 0 Hypochromia 1+ Platelet Estimate Decreased Polychromasia 0 Poikilocytosis 0 Anisocytosis 1+ Microcytosis 0 Macrocytosis 0 Sodium 139 Potassium 3.2 L Chloride 100 Carbon Dioxide 34 H Anion Gap 5 L BUN 11.1 Creatinine 0.5 L Est GFR (CKD-EPI)AfAm 130.88 Est GFR (CKD-EPI)NonAf 112.92 Random Glucose 110 H Calcium 8.4 L Phosphorus 3.3 Magnesium 1.7 L Total Bilirubin 2.4 H AST 28 ALT 41 Alkaline Phosphatase 97 Total Protein 5.4 L Albumin 2.2 L A/P Acute on Chronic Hypoxic and Hypercapneic Respiratory Failure s/p Tracheostomy Pneumonia ARDS resolved Septic Shock resolved Acute on Chronic Diastolic Heart Failure Pulmonary HTN Paroxysmal Atrial Fibrillation CAD Acute Kidney Injury Likely COPD JUANA/OHS HTN Hypercholesterolemia - antibiotics per ID - rate control - continue anticoagulation - spontaneous breathing trials as tolerated - PMV as tolerated - titrate FiO2, PEEP to keep SpO2 >90% - monitor urine output, creatinine - enteral feeds on hold - DVT/GI prophylaxis Dr Sanz
[2020-01-21] MEDS: KCL 10 MEQ IVPB 10 MEQ/100 ML INFUS.BAG IVPB SCH ×2 (14:40→16:17)
--- NOTE | 2020-01-21 16:39 | PN ---
Progress Note (short form) - Note Progress Note: Chief Complaint: Events noted, notes reviewed, patient remains on a ventilator via tracheostomy History of Present Illness: Seen and examined. Events noted, notes reviewed, patient remains on a ventilator via tracheostomy Medications: Current Medications Generic Name Dose Route Start Last Admin Trade Name Freq PRN Reason Stop Dose Admin Amino Acids 30 ml 01/12/20 08:00 01/17/20 09:52 Prosource No Carb Liquid Pkt NGT Not Given DAILY@0800 [facility] Apixaban 5 mg 01/12/20 11:30 01/17/20 11:01 Eliquis - NGT Not Given BID [facility] Ascorbic Acid 1,000 mg 01/12/20 11:30 01/17/20 11:02 Vitamin C Oral Solution - NGT Not Given DAILY [facility] Chlorhexidine Gluconate 15 ml 01/12/20 10:00 01/21/20 11:14 Peridex - MM 15 ml BID [facility] Administration Enoxaparin Sodium 80 mg/ 110 mg 01/18/20 06:00 01/21/20 06:06 Enoxaparin Sodium 30 mg SQ 110 mg Q12H [facility] Administration Vancomycin HCl 1,000 mg in 250 mls @ 250 mls/hr 01/14/20 22:00 01/21/20 11:24 Vancomycin (Pre-Docked) IVPB 250 mls/hr BID [facility] Administration Protocol Potassium Chloride 40 meq/ 1,020 mls @ 83 mls/hr 01/20/20 13:17 01/21/20 14:4 0 Amino Acids IVPB Not Given Q12H [facility] Metoprolol Tartrate 25 mg 01/12/20 11:26 01/17/20 11:01 Lopressor - NGT Not Given BID [facility] Metoprolol Tartrate 5 mg 01/16/20 17:53 Lopressor Injection - IVPB Q4H PRN HYPERTENSION Multivitamins/Minerals 15 ml 01/12/20 11:32 01/17/20 11:01 Certavite-Antioxidant Liquid NGT Not Given DAILY [facility] Pantoprazole Sodium 40 mg 01/12/20 10:00 01/21/20 11:14 Protonix Iv IVPUSH 40 mg DAILY [facility] Administration Review of Systems Unable to obtain/intubated and sedated Vital Signs: Last Vital Signs Temp Pulse Resp BP Pulse Ox 98.7 F 98 H 16 143/97 96 01/21/20 14:00 01/21/20 14:00 01/21/20 14:00 01/21/20 14:00 01/21/20 14:00 Intake & Output 01/18/20 01/19/20 01/20/20 01/21/20 23:59 23:59 23:59 23:59 Intake Total 1900 1975 1750 1000 Output Total 1000 1700 3000 500 Balance 900 275 -1250 500 Weight 233 lb 14.4 oz 224 lb 5 oz 218 lb 9 oz Neck: Supple Negative JVD Respiratory: Diminished Breath Sounds at the Bases Cardiovascular: S1 S2 Regular Rate Rhythm Gastrointestinal: Soft Benign Normal Bowel Sounds Ext: Trace Edema Bilaterally Labs: CBC, BMP 01/21/20 07:55 01/21/20 07:55 Hepatic Panel Total Bilirubin 2.4 mg/dL (0.2-1) H 01/21/20 07:55 Direct Bilirubin 2.1 mg/dL (0.0-0.2) H 01/11/20 06:18 AST 28 U/L (15-37) 01/21/20 07:55 ALT 41 U/L (13-61) 01/21/20 07:55 Alkaline Phosphatase 97 U/L (45-117) 01/21/20 07:55 Albumin 2.2 g/dl (3.4-5.0) L 01/21/20 07:55 INR, PTT INR 1.23 (0.83-1.09) H 01/10/20 13:50 Assessment/Plan ASSESSMENT: 1. Acute on chronic hypoxic/hypercapnic respiratory failure post tracheostomy (Pneumonia complicated by septic shock and adult respiratory distress/ARDS) 2. Acute on chronic class II [place] [employer] classification left ventricular failure related to diastolic left ventricular dysfunction (Pulmonary hypertension), clinically resolved 3. Coronary artery disease angina pectoris 4. Paroxysmal atrial fibrillation currently in sinus rhythm [id number] score of 3 currently on anticoagulation therapy 5. Hypertensive cardiovascular disease 6. Hypercholesterolemia 7. History of obstructive sleep apnea 8. Prerenal azotemia, resolved 9. History of cellulitis/abscess formation post wound debridement PLAN: 1. Continue Lopressor therapy 2. Recommend the addition of AMADEO inhibitor or angiotensin receptor joseph therapy unless it is absolutely contraindicated, hemodynamics permitting 3. Continue Lovenox therapy and eventual initiation of Eliquis therapy unless it is absolutely contraindicated 4. Antibiotics as per the primary team 5. Tracheostomy care- management and ventilator weaning as per the primary team/pulmonary team Bran Carlin MD
--- NOTE | 2020-01-21 20:44 | PN ---
Progress Note, Physician History of Present Illness: No new events. Pt alert and responsive. Denies abd pain currently. +NGT to suction remains. - Current Medication List Current Medications: Active Medications Amino Acids (Prosource No Carb Liquid Pkt) 30 ml NGT DAILY@0800 [facility] Last Admin: 01/17/20 09:52 Dose: Not Given Documented by: Apixaban (Eliquis -) 5 mg NGT BID [facility] Last Admin: 01/17/20 11:01 Dose: Not Given Documented by: Ascorbic Acid (Vitamin C Oral Solution -) 1,000 mg NGT DAILY [facility] Last Admin: 01/17/20 11:02 Dose: Not Given Documented by: Chlorhexidine Gluconate (Peridex -) 15 ml MM BID [facility] Last Admin: 01/21/20 11:14 Dose: 15 ml Documented by: Enoxaparin Sodium 80 mg/ (Enoxaparin Sodium 30 mg) 110 mg SQ Q12H [facility] Last Admin: 01/21/20 17:31 Dose: Not Given Documented by: Vancomycin HCl (Vancomycin (Pre-Docked)) 1,000 mg in 250 mls @ 250 mls/hr IVPB BID [facility]; Protocol Last Admin: 01/21/20 11:24 Dose: 250 mls/hr Documented by: Potassium Chloride 40 meq/ (Amino Acids) 1,020 mls @ 83 mls/hr IVPB Q12H [facility] Last Admin: 01/21/20 14:40 Dose: Not Given Documented by: Metoprolol Tartrate (Lopressor -) 25 mg NGT BID [facility] Last Admin: 01/17/20 11:01 Dose: Not Given Documented by: Metoprolol Tartrate (Lopressor Injection -) 5 mg IVPB Q4H PRN PRN Reason: HYPERTENSION Multivitamins/Minerals (Certavite-Antioxidant Liquid) 15 ml NGT DAILY [facility] Last Admin: 01/17/20 11:01 Dose: Not Given Documented by: Pantoprazole Sodium (Protonix Iv) 40 mg IVPUSH DAILY [facility] Last Admin: 01/21/20 11:14 Dose: 40 mg Documented by: - Objective Vital Signs: Vital Signs Temperature 98.9 F 01/21/20 18:00 Pulse Rate 89 01/21/20 18:00 Respiratory Rate 18 01/21/20 18:00 Blood Pressure 134/80 01/21/20 18:00 O2 Sat by Pulse Oximetry (%) 94 L 01/21/20 17:11 Constitutional: Yes: No Distress, Calm Cardiovascular: Yes: Regular Rate and Rhythm Respiratory: Yes: Regular, Mechanically Ventilated (trach) Gastrointestinal: Yes: Soft, Distention (mild) Neurological: Yes: Alert Labs: CBC, BMP 01/21/20 07:55 01/21/20 07:55 INR, PTT INR 1.23 (0.83-1.09) H 01/10/20 13:50 Microbiology 01/12/20 12:43 Blood - Peripheral Venous Blood Culture - Final NO GROWTH AFTER 5 DAYS INCUBATION 01/12/20 12:48 Blood - Peripheral Venous Blood Culture - Final NO GROWTH AFTER 5 DAYS INCUBATION 01/12/20 17:30 Urine - Urine Clean Catch Urine Culture - Final NO GROWTH OBTAINED 01/06/20 21:40 Blood - Peripheral Venous Blood Culture - Final NO GROWTH AFTER 5 DAYS INCUBATION 01/06/20 21:30 Blood - Peripheral Venous Blood Culture - Final NO GROWTH AFTER 5 DAYS INCUBATION 01/07/20 12:00 Sputum - Endotrachea Suction/Ventilator Gram Stain - Final 01/07/20 12:00 Sputum - Endotrachea Suction/Ventilator Sputum Culture - Final Mr S Aureus Strep Agalactiae Group B 01/07/20 00:05 Urine - Urine Hilario Urine Culture - Final NO GROWTH OBTAINED 12/27/19 21:00 Blood - Peripheral Venous Blood Culture - Final NO GROWTH AFTER 5 DAYS INCUBATION 12/27/19 21:00 Blood - Peripheral Venous Blood Culture - Final NO GROWTH AFTER 5 DAYS INCUBATION 12/25/19 20:40 Blood - Peripheral Venous Blood Culture - Final NO GROWTH AFTER 5 DAYS INCUBATION 12/25/19 20:30 Blood - Peripheral Venous Blood Culture - Final NO GROWTH AFTER 5 DAYS INCUBATION 12/27/19 14:00 Urine - Urine Hilario Urine Culture - Final NO GROWTH OBTAINED 12/23/19 18:00 Sputum - Endotrachea Suction/Ventilator Gram Stain - Final 12/23/19 18:00 Sputum - Endotrachea Suction/Ventilator Sputum Culture - Final NORMAL RESPIRATORY [place] 12/23/19 17:51 Urine - Urine Hilario Urine Culture - Final NO GROWTH OBTAINED 12/16/19 20:13 Blood - Peripheral Venous Blood Culture - Final NO GROWTH AFTER 5 DAYS INCUBATION 12/16/19 19:50 Blood - Peripheral Venous Blood Culture - Final NO GROWTH AFTER 5 DAYS INCUBATION Problem List - Problems (1) Edema of scrotum Code(s): N50.89 - OTHER SPECIFIED DISORDERS OF THE MALE GENITAL ORGANS (2) Morbid obesity Code(s): E66.01 - MORBID (SEVERE) OBESITY DUE TO EXCESS CALORIES (3) Acute on chronic diastolic (congestive) heart failure Code(s): I50.33 - ACUTE ON CHRONIC DIASTOLIC (CONGESTIVE) HEART FAILURE (4) Acute respiratory failure requiring reintubation Code(s): J96.00 - ACUTE RESPIRATORY FAILURE, UNSP W HYPOXIA OR HYPERCAPNIA (5) Afib Code(s): I48.91 - UNSPECIFIED ATRIAL FIBRILLATION Qualifiers: Atrial fibrillation type: paroxysmal Qualified Code(s): I48.0 - Paroxysmal atrial fibrillation Assessment/Plan Acute respiratory failure s/p trach on MV PNA Ileus vs. SBO CHF b/l LE Cellulitis b/l Hydrocele MONIE Paroxysmal AFIB COPD JUANA CAD HTN HLD -- Pt afebrile today, no leukocytosis. Appears comfortable. -- MRSA+ PNA -continue Vancomycin IV -- Surgery following -- continue monitor vitals
[2020-01-21] MEDS ORDERED: PT OWN MED DRAWER 7, Y5N ONE (21:41)
[2020-01-22] MEDS: POTASSIUM CHLORIDE 40 MEQ in AMINO ACIDS 4.25%/D5W 1,000 ML IVPB SCH ×3 (02:42→19:57)
[2020-01-22] MEDS ORDERED: ENOXAPARIN NA (PORCINE) 80 MG/0.8 ML DISP.SYRIN SQ ONE ×2 (05:44→16:53)
[2020-01-22] MEDS ORDERED: ENOXAPARIN NA (PORCINE) 30 MG/0.3 ML DISP.SYRIN SQ ONE ×2 (05:44→16:53)
[2020-01-22] MEDS: ENOXAPARIN 80 MG, ENOXAPARIN 30 MG SQ SCH ×2 (05:54→17:00)
--- NOTE | 2020-01-22 06:59 | PN ---
Progress Note (short form) - Note Progress Note: Chief Complaint: Events noted, notes reviewed, patient remains on a ventilator via tracheostomy, awake and alert in no distress History of Present Illness: Seen and examined. Events noted, notes reviewed, patient remains on a ventilator via tracheostomy, awake and alert in no distress Medications: Current Medications Generic Name Dose Route Start Last Admin Trade Name Freq PRN Reason Stop Dose Admin Amino Acids 30 ml 01/12/20 08:00 01/17/20 09:52 Prosource No Carb Liquid Pkt NGT Not Given DAILY@0800 [facility] Apixaban 5 mg 01/12/20 11:30 01/17/20 11:01 Eliquis - NGT Not Given BID [facility] Ascorbic Acid 1,000 mg 01/12/20 11:30 01/17/20 11:02 Vitamin C Oral Solution - NGT Not Given DAILY [facility] Chlorhexidine Gluconate 15 ml 01/12/20 10:00 01/21/20 21:51 Peridex - MM 15 ml BID [facility] Administration Enoxaparin Sodium 80 mg/ 110 mg 01/18/20 06:00 01/22/20 05:54 Enoxaparin Sodium 30 mg SQ 110 mg Q12H [facility] Administration Vancomycin HCl 1,000 mg in 250 mls @ 250 mls/hr 01/14/20 22:00 01/21/20 21:51 Vancomycin (Pre-Docked) IVPB 250 mls/hr BID [facility] Administration Protocol Potassium Chloride 40 meq/ 1,020 mls @ 83 mls/hr 01/20/20 13:17 01/22/20 02:42 Amino Acids IVPB Not Given Q12H [facility] Metoprolol Tartrate 25 mg 01/12/20 11:26 01/17/20 11:01 Lopressor - NGT Not Given BID [facility] Metoprolol Tartrate 5 mg 01/16/20 17:53 Lopressor Injection - IVPB Q4H PRN HYPERTENSION Multivitamins/Minerals 15 ml 01/12/20 11:32 01/17/20 11:01 Certavite-Antioxidant Liquid NGT Not Given DAILY [facility] Pantoprazole Sodium 40 mg 01/12/20 10:00 01/21/20 11:14 Protonix Iv IVPUSH 40 mg DAILY [facility] Administration Review of Systems Unable to obtain/intubated and sedated Vital Signs: Last Vital Signs Temp Pulse Resp BP Pulse Ox 77 F L 77 16 127/71 95 01/22/20 06:00 01/22/20 06:00 01/22/20 06:00 01/22/20 06:00 01/22/20 06:00 Intake & Output 01/19/20 01/20/20 01/21/20 01/22/20 23:59 23:59 23:59 23:59 Intake Total 1975 1750 2370 550 Output Total 1700 3000 1500 500 Balance 275 -1250 870 50 Weight 224 lb 5 oz 218 lb 9 oz 219 lb 11.2 oz Neck: Supple Negative JVD Respiratory: Diminished Breath Sounds at the Bases Cardiovascular: S1 S2 Regular Rate Rhythm Gastrointestinal: Soft Benign Normal Bowel Sounds Ext: Trace Edema Bilaterally Labs: CBC, BMP 01/21/20 07:55 01/21/20 07:55 Hepatic Panel Total Bilirubin 2.4 mg/dL (0.2-1) H 01/21/20 07:55 Direct Bilirubin 2.1 mg/dL (0.0-0.2) H 01/11/20 06:18 AST 28 U/L (15-37) 01/21/20 07:55 ALT 41 U/L (13-61) 01/21/20 07:55 Alkaline Phosphatase 97 U/L (45-117) 01/21/20 07:55 Albumin 2.2 g/dl (3.4-5.0) L 01/21/20 07:55 INR, PTT INR 1.23 (0.83-1.09) H 01/10/20 13:50 Assessment/Plan ASSESSMENT: 1. Acute on chronic hypoxic/hypercapnic respiratory failure post tracheostomy (Pneumonia complicated by septic shock and adult respiratory distress/ARDS) 2. Acute on chronic class II [place] [employer] classification left ventricular failure related to diastolic left ventricular dysfunction (Pulmonary hypertension), clinically resolved 3. Coronary artery disease angina pectoris 4. Paroxysmal atrial fibrillation currently in sinus rhythm [id number] score of 3 currently on anticoagulation therapy 5. Hypertensive cardiovascular disease 6. Hypercholesterolemia 7. History of obstructive sleep apnea 8. Prerenal azotemia, resolved 9. History of cellulitis/abscess formation post wound debridement PLAN: 1. Continue Lopressor therapy 2. As outlined in the prior notes recommend the addition of AMADEO inhibitor or angiotensin receptor joseph therapy unless it is absolutely contraindicated, hemodynamics permitting 3. Continue Lovenox therapy and eventual initiation of Eliquis therapy unless it is absolutely contraindicated 4. Antibiotics as per the primary team 5. Tracheostomy care- management and ventilator weaning as per the primary team/pulmonary team Bran Carlin MD
--- NOTE | 2020-01-22 07:38 | PN.GI ---
GI Progress Note Subjective: no change in status - Objective Vital Signs: Vital Signs Temperature 77 F L 01/22/20 06:00 Pulse Rate 77 01/22/20 06:00 Respiratory Rate 16 01/22/20 06:00 Blood Pressure 127/71 01/22/20 06:00 O2 Sat by Pulse Oximetry (%) 95 01/22/20 06:00 Constitutional: Well Nourished Eyes: Yes: WNL Cardiovascular: Yes: WNL Respiratory: Yes: WNL, Regular Gastrointestinal Inspection: Yes: WNL ...Auscultate: Yes: Other (tympanitic) Edema: No Labs: CBC, BMP 01/21/20 07:55 01/21/20 07:55 INR, PTT INR 1.23 (0.83-1.09) H 01/10/20 13:50 Problem List - Problems (1) Pseudoobstruction of colon Assessment/Plan: repeat axr reviewed - improving -npo / ivf's - ngt - keep all electrolytes wnl - surgery f/u Code(s): K59.8 - OTHER SPECIFIED FUNCTIONAL INTESTINAL DISORDERS (2) Cellulitis Code(s): L03.90 - CELLULITIS, UNSPECIFIED (3) Congestive heart failure (CHF) Code(s): I50.9 - HEART FAILURE, UNSPECIFIED Qualifiers: Heart failure type: diastolic Heart failure chronicity: acute on chronic Qualified Code(s): I50.33 - Acute on chronic diastolic (congestive) heart failure (4) Morbid obesity Code(s): E66.01 - MORBID (SEVERE) OBESITY DUE TO EXCESS CALORIES
[2020-01-22] MEDS ORDERED: PT OWN MED DRAWER 7, Y5N ONE ×2 (09:34→21:11)
[2020-01-22] MEDS: PANTOPRAZOLE SODIUM 40 MG VIAL IVPUSH SCH (09:36)
[2020-01-22] MEDS: CHLORHEXIDINE GLUCONATE 0.12% 15ML CUP MM SCH ×3 (09:36→23:11)
[2020-01-22] MEDS: VANCOMYCIN 1 GRAM (PRE-DOCKED) 1,000 MG/250 ML BAG IVPB SCH ×3 (10:00→21:13)
--- NOTE | 2020-01-22 10:43 | PN ---
Progress Note, Physician - Current Medication List Current Medications: Active Medications Amino Acids (Prosource No Carb Liquid Pkt) 30 ml NGT DAILY@0800 [facility] Last Admin: 01/17/20 09:52 Dose: Not Given Documented by: Apixaban (Eliquis -) 5 mg NGT BID [facility] Last Admin: 01/17/20 11:01 Dose: Not Given Documented by: Ascorbic Acid (Vitamin C Oral Solution -) 1,000 mg NGT DAILY [facility] Last Admin: 01/17/20 11:02 Dose: Not Given Documented by: Chlorhexidine Gluconate (Peridex -) 15 ml MM BID [facility] Last Admin: 01/22/20 09:36 Dose: 15 ml Documented by: Enoxaparin Sodium 80 mg/ (Enoxaparin Sodium 30 mg) 110 mg SQ Q12H [facility] Last Admin: 01/22/20 05:54 Dose: 110 mg Documented by: Vancomycin HCl (Vancomycin (Pre-Docked)) 1,000 mg in 250 mls @ 250 mls/hr IVPB BID [facility]; Protocol Last Admin: 01/21/20 21:51 Dose: 250 mls/hr Documented by: Potassium Chloride 40 meq/ (Amino Acids) 1,020 mls @ 83 mls/hr IVPB Q12H [facility] Last Admin: 01/22/20 02:42 Dose: Not Given Documented by: Metoprolol Tartrate (Lopressor -) 25 mg NGT BID [facility] Last Admin: 01/17/20 11:01 Dose: Not Given Documented by: Metoprolol Tartrate (Lopressor Injection -) 5 mg IVPB Q4H PRN PRN Reason: HYPERTENSION Multivitamins/Minerals (Certavite-Antioxidant Liquid) 15 ml NGT DAILY [facility] Last Admin: 01/17/20 11:01 Dose: Not Given Documented by: Pantoprazole Sodium (Protonix Iv) 40 mg IVPUSH DAILY [facility] Last Admin: 01/22/20 09:36 Dose: 40 mg Documented by: - Objective Vital Signs: Vital Signs Temperature 98 F 01/22/20 08:57 Pulse Rate 86 01/22/20 08:57 Respiratory Rate 20 01/22/20 08:57 Blood Pressure 135/66 01/22/20 08:57 O2 Sat by Pulse Oximetry (%) 96 01/22/20 08:57 Labs: CBC, BMP 07/18/20 07:55 01/21/20 07:55 INR, PTT INR 1.23 (0.83-1.09) H 01/10/20 13:50 Problem List - Problems (1) Acute hypercapnic respiratory failure Code(s): J96.02 - ACUTE RESPIRATORY FAILURE WITH HYPERCAPNIA (2) Congestive heart failure (CHF) Code(s): I50.9 - HEART FAILURE, UNSPECIFIED Qualifiers: Heart failure type: diastolic Heart failure chronicity: acute on chronic Qualified Code(s): I50.33 - Acute on chronic diastolic (congestive) heart failure (3) Pneumonia Code(s): J18.9 - PNEUMONIA, UNSPECIFIED ORGANISM Qualifiers: Pneumonia type: due to unspecified organism Laterality: right Lung location: lower lobe of lung Qualified Code(s): J18.9 - Pneumonia, unspecified organism (4) Afib Code(s): I48.91 - UNSPECIFIED ATRIAL FIBRILLATION Qualifiers: Atrial fibrillation type: paroxysmal Qualified Code(s): I48.0 - Paroxysmal atrial fibrillation
--- NOTE | 2020-01-22 12:18 | PN ---
Progress Note (short form) - Note Progress Note: Attending Surgeon Seen in f/u; no BM recorded VSS AF abdo-soft and non tender; less distended and tympanitic NGT 500 AXR improved IMP: improving pseudoobstruction PLAN: Continue present tx. Олег Gonzalez MD FACS
[2020-01-22] MEDS ORDERED: LORazepam 2 MG/ML SDV VIAL IM ONE (12:45)
--- NOTE | 2020-01-22 13:34 | PN ---
Progress Note (short form) - Note Progress Note: covering dr moreno Problems 1. MONIE 2. CHF acute 3. acute resp failure- trache 4. atrial fibrillation 5. hx of htn 6. obesity 7. chronic smoker 8. hypokalemia 9. partial sbo Lungs clear vented sounds Heart reg Abd soft Ext 1+ edema CBC, BMP 01/21/20 07:55 01/21/20 07:55 MONIE improved sbo on clinimix Hypokalemia Plan- monitor labs
--- NOTE | 2020-01-22 14:01 | PN ---
Progress Note (short form) - Note Progress Note: Awake and alert on AC Mode of vent. Has been tolerating SIMV. Agitated as a IV line being inserted. Some mild residual abdominal tenderness. Intake & Output 01/19/20 01/20/20 01/21/20 01/22/20 23:59 23:59 23:59 23:59 Intake Total 1975 1750 2370 550 Output Total 1700 3000 1500 500 Balance 275 -1250 870 50 Weight 224 lb 5 oz 218 lb 9 oz 219 lb 11.2 oz Last Vital Signs Temp Pulse Resp BP Pulse Ox 98 F 86 22 H 135/66 98 01/22/20 08:57 01/22/20 08:57 01/22/20 12:03 01/22/20 08:57 01/22/20 12:03 Active Medications Amino Acids (Prosource No Carb Liquid Pkt) 30 ml NGT DAILY@0800 [facility] Last Admin: 01/17/20 09:52 Dose: Not Given Documented by: Apixaban (Eliquis -) 5 mg NGT BID [facility] Last Admin: 01/17/20 11:01 Dose: Not Given Documented by: Ascorbic Acid (Vitamin C Oral Solution -) 1,000 mg NGT DAILY [facility] Last Admin: 01/17/20 11:02 Dose: Not Given Documented by: Chlorhexidine Gluconate (Peridex -) 15 ml MM BID [facility] Last Admin: 01/22/20 09:36 Dose: 15 ml Documented by: Enoxaparin Sodium 80 mg/ (Enoxaparin Sodium 30 mg) 110 mg SQ Q12H [facility] Last Admin: 01/22/20 05:54 Dose: 110 mg Documented by: Vancomycin HCl (Vancomycin (Pre-Docked)) 1,000 mg in 250 mls @ 250 mls/hr IVPB BID [facility]; Protocol Last Admin: 01/21/20 21:51 Dose: 250 mls/hr Documented by: Potassium Chloride 40 meq/ (Amino Acids) 1,020 mls @ 83 mls/hr IVPB Q12H [facility] Last Admin: 01/22/20 02:42 Dose: Not Given Documented by: Metoprolol Tartrate (Lopressor -) 25 mg NGT BID [facility] Last Admin: 01/17/20 11:01 Dose: Not Given Documented by: Metoprolol Tartrate (Lopressor Injection -) 5 mg IVPB Q4H PRN PRN Reason: HYPERTENSION Multivitamins/Minerals (Certavite-Antioxidant Liquid) 15 ml NGT DAILY [facility] Last Admin: 01/17/20 11:01 Dose: Not Given Documented by: Pantoprazole Sodium (Protonix Iv) 40 mg IVPUSH DAILY [facility] Last Admin: 01/22/20 09:36 Dose: 40 mg Documented by: Gen: vented, awake Heart: RRR Lung: scattered rhonchi Abd: softly distended, nontender Ext: no edema A/P Acute on Chronic Hypoxic and Hypercapneic Respiratory Failure s/p Tracheostomy Pneumonia ARDS resolved Septic Shock resolved Acute on Chronic Diastolic Heart Failure Pulmonary HTN Paroxysmal Atrial Fibrillation CAD Acute Kidney Injury Likely COPD JUANA/OHS HTN Hypercholesterolemia - antibiotics per ID - rate control - continue anticoagulation - spontaneous breathing trials as tolerated - PMV as tolerated - titrate FiO2, PEEP to keep SpO2 >90% - monitor urine output, creatinine - enteral feeds on hold - DVT/GI prophylaxis Dr Sanz
--- NOTE | 2020-01-22 20:23 | PN ---
Progress Note, Physician History of Present Illness: No new events. No BM reported today. Pt without distress. Afebrile, without dyspnea. - Current Medication List Current Medications: Active Medications Amino Acids (Prosource No Carb Liquid Pkt) 30 ml NGT DAILY@0800 [facility] Last Admin: 01/17/20 09:52 Dose: Not Given Documented by: Apixaban (Eliquis -) 5 mg NGT BID [facility] Last Admin: 01/17/20 11:01 Dose: Not Given Documented by: Ascorbic Acid (Vitamin C Oral Solution -) 1,000 mg NGT DAILY [facility] Last Admin: 01/17/20 11:02 Dose: Not Given Documented by: Chlorhexidine Gluconate (Peridex -) 15 ml MM BID [facility] Last Admin: 01/22/20 09:36 Dose: 15 ml Documented by: Enoxaparin Sodium 80 mg/ (Enoxaparin Sodium 30 mg) 110 mg SQ Q12H [facility] Last Admin: 01/22/20 17:00 Dose: 110 mg Documented by: Vancomycin HCl (Vancomycin (Pre-Docked)) 1,000 mg in 250 mls @ 250 mls/hr IVPB BID [facility]; Protocol Last Admin: 01/22/20 14:41 Dose: 250 mls/hr Documented by: Potassium Chloride 40 meq/ (Amino Acids) 1,020 mls @ 83 mls/hr IVPB Q12H [facility] Last Admin: 01/22/20 19:57 Dose: 83 mls/hr Documented by: Metoprolol Tartrate (Lopressor -) 25 mg NGT BID [facility] Last Admin: 01/17/20 11:01 Dose: Not Given Documented by: Metoprolol Tartrate (Lopressor Injection -) 5 mg IVPB Q4H PRN PRN Reason: HYPERTENSION Multivitamins/Minerals (Certavite-Antioxidant Liquid) 15 ml NGT DAILY [facility] Last Admin: 01/17/20 11:01 Dose: Not Given Documented by: Pantoprazole Sodium (Protonix Iv) 40 mg IVPUSH DAILY [facility] Last Admin: 01/22/20 09:36 Dose: 40 mg Documented by: - Objective Vital Signs: Vital Signs Temperature 99.2 F 01/22/20 18:00 Pulse Rate 84 01/22/20 18:00 Respiratory Rate 20 01/22/20 18:00 Blood Pressure 118/67 01/22/20 18:00 O2 Sat by Pulse Oximetry (%) 99 01/22/20 16:28 Constitutional: Yes: No Distress, Calm Eyes: Yes: Conjunctiva Clear Cardiovascular: Yes: Regular Rate and Rhythm Respiratory: Yes: Regular, Other (trach) Gastrointestinal: Yes: Soft, Distention, Other (ngt) Neurological: Yes: Alert Labs: CBC, BMP 01/21/20 07:55 01/21/20 07:55 INR, PTT INR 1.23 (0.83-1.09) H 01/10/20 13:50 Microbiology 01/12/20 12:43 Blood - Peripheral Venous Blood Culture - Final NO GROWTH AFTER 5 DAYS INCUBATION 01/12/20 12:48 Blood - Peripheral Venous Blood Culture - Final NO GROWTH AFTER 5 DAYS INCUBATION 01/12/20 17:30 Urine - Urine Clean Catch Urine Culture - Final NO GROWTH OBTAINED 01/06/20 21:40 Blood - Peripheral Venous Blood Culture - Final NO GROWTH AFTER 5 DAYS INCUBATION 01/06/20 21:30 Blood - Peripheral Venous Blood Culture - Final NO GROWTH AFTER 5 DAYS INCUBATION 01/07/20 12:00 Sputum - Endotrachea Suction/Ventilator Gram Stain - Final 01/07/20 12:00 Sputum - Endotrachea Suction/Ventilator Sputum Culture - Final Mr S Aureus Strep Agalactiae Group B 01/07/20 00:05 Urine - Urine Hilario Urine Culture - Final NO GROWTH OBTAINED 12/27/19 21:00 Blood - Peripheral Venous Blood Culture - Final NO GROWTH AFTER 5 DAYS INCUBATION 12/27/19 21:00 Blood - Peripheral Venous Blood Culture - Final NO GROWTH AFTER 5 DAYS INCUBATION 12/25/19 20:40 Blood - Peripheral Venous Blood Culture - Final NO GROWTH AFTER 5 DAYS INCUBATION 12/25/19 20:30 Blood - Peripheral Venous Blood Culture - Final NO GROWTH AFTER 5 DAYS INCUBATION 12/27/19 14:00 Urine - Urine Hilario Urine Culture - Final NO GROWTH OBTAINED 12/23/19 18:00 Sputum - Endotrachea Suction/Ventilator Gram Stain - Final 12/23/19 18:00 Sputum - Endotrachea Suction/Ventilator Sputum Culture - Final NORMAL RESPIRATORY PEYTON 12/23/19 17:51 Urine - Urine Hilario Urine Culture - Final NO GROWTH OBTAINED 12/16/19 20:13 Blood - Peripheral Venous Blood Culture - Final NO GROWTH AFTER 5 DAYS INCUBATION 12/16/19 19:50 Blood - Peripheral Venous Blood Culture - Final NO GROWTH AFTER 5 DAYS INCUBATION - ....Imaging X-ray: Report Reviewed Problem List - Problems (1) Edema of scrotum Code(s): N50.89 - OTHER SPECIFIED DISORDERS OF THE MALE GENITAL ORGANS (2) Morbid obesity Code(s): E66.01 - MORBID (SEVERE) OBESITY DUE TO EXCESS CALORIES (3) Acute on chronic diastolic (congestive) heart failure Code(s): I50.33 - ACUTE ON CHRONIC DIASTOLIC (CONGESTIVE) HEART FAILURE (4) Acute respiratory failure requiring reintubation Code(s): J96.00 - ACUTE RESPIRATORY FAILURE, UNSP W HYPOXIA OR HYPERCAPNIA (5) Afib Code(s): I48.91 - UNSPECIFIED ATRIAL FIBRILLATION Qualifiers: Atrial fibrillation type: paroxysmal Qualified Code(s): I48.0 - Paroxysmal atrial fibrillation Assessment/Plan Acute respiratory failure s/p trach on MV PNA Ileus/ pseudoobstruction CHF b/l LE Cellulitis b/l Hydrocele MONIE Paroxysmal AFIB COPD JUANA CAD HTN HLD -- no new events, afebrile today -- continue Vancomycin (to complete total 2 wks), monitor renal function- stable -- Surgery following -- continue monitor vitals
[2020-01-22] MEDS ORDERED: ACETAMINOPHEN 1000 MG/100 ML VIAL (NON FORMULARY) IVPB ONE (23:37)
[2020-01-23] MEDS: POTASSIUM CHLORIDE 40 MEQ in AMINO ACIDS 4.25%/D5W 1,000 ML IVPB SCH ×2 (00:41→13:06)
[2020-01-23] MEDS ORDERED: ENOXAPARIN NA (PORCINE) 30 MG/0.3 ML DISP.SYRIN SQ ONE ×2 (05:03→16:28)
[2020-01-23] MEDS ORDERED: ENOXAPARIN NA (PORCINE) 80 MG/0.8 ML DISP.SYRIN SQ ONE ×2 (05:03→16:28)
[2020-01-23] MEDS: ENOXAPARIN 80 MG, ENOXAPARIN 30 MG SQ SCH ×2 (05:27→17:11)
--- NOTE | 2020-01-23 09:58 | PN ---
Progress Note, Physician History of Present Illness: 64 year old male with a past medical history of HTN, HLD, JUANA (not using CPAP), COPD, GERD, systolic congestive heart failure, paroxysmal atrial fibrillation (on Eliquis, s/p cardioversion 11/2016) who presented with 3 weeks of gradual onset anasarca, scrotal swelling and mild shortness of breath worse on exertion. CXR s/f diffused bilat opacities with c/f PNA +/-fluid overload, ?bilateral lower extremity cellulitis and bilateral hydrocele, and respiratory acidosis is admitted for Acute hypercapneic respiratory failure and Acute CHF exacerbation, intubated for progressive hypercarbic respiratory failure, decreased mental status on BiPAP. 01/11/2020 s/p percutaneous tracheostomy, awake off sedation. Vented on volume assist control with 40% FiO2, PEEP 5. Placed on CPAP/PS. 01/12/2020 Off sedation on vent 01/12: no acute cardiac events; had elevated temp 01/13: No significant change01/14: No cardiac events 01/15: Vented, awake. Currently on SIMV RR 8 PS 10. Abd slightly distended 01/16: Vented awake on SIMV RR 8 PS 10. No fevers. 01/17: Ileus noted on abd/pelvic CT, interactive on vent 01/18: Small BM, NGT inserted 01/22: Improving AXR, patient remains on a ventilator via tracheostomy, awake and alert in no distress - Current Medication List Current Medications: Active Medications Amino Acids (Prosource No Carb Liquid Pkt) 30 ml NGT DAILY@0800 [facility] Last Admin: 01/17/20 09:52 Dose: Not Given Documented by: Apixaban (Eliquis -) 5 mg NGT BID [facility] [place] Last Admin: 01/17/20 11:01 Dose: Not Given Documented by: Ascorbic Acid (Vitamin C Oral Solution -) 1,000 mg NGT DAILY [facility] [place] Last Admin: 01/17/20 11:02 Dose: Not Given Documented by: Chlorhexidine Gluconate (Peridex -) 15 ml MM BID [facility] [place] Last Admin: 01/22/20 23:11 Dose: 15 ml Documented by: Enoxaparin Sodium 80 mg/ (Enoxaparin Sodium 30 mg) 110 mg SQ Q12H [facility] [place] Last Admin: 01/23/20 05:27 Dose: 110 mg Documented by: Vancomycin HCl (Vancomycin (Pre-Docked)) 1,000 mg in 250 mls @ 250 mls/hr IVPB BID [facility] [place]; Protocol Last Admin: 01/22/20 21:13 Dose: 250 mls/hr Documented by: Potassium Chloride 40 meq/ (Amino Acids) 1,020 mls @ 83 mls/hr IVPB Q12H [facility] [place] Last Admin: 01/23/20 00:41 Dose: Not Given Documented by: Metoprolol Tartrate (Lopressor -) 25 mg NGT BID [facility] [place] Last Admin: 01/17/20 11:01 Dose: Not Given Documented by: Metoprolol Tartrate (Lopressor Injection -) 5 mg IVPB Q4H PRN PRN Reason: HYPERTENSION Multivitamins/Minerals (Certavite-Antioxidant Liquid) 15 ml NGT DAILY [facility] [place] Last Admin: 01/17/20 11:01 Dose: Not Given Documented by: Pantoprazole Sodium (Protonix Iv) 40 mg IVPUSH DAILY [facility] [place] Last Admin: 01/22/20 09:36 Dose: 40 mg Documented by: - Objective Vital Signs: Vital Signs Temperature 98.0 F 01/23/20 05:40 Pulse Rate 81 01/23/20 08:16 Respiratory Rate 16 01/23/20 08:40 Blood Pressure 124/81 01/23/20 05:40 O2 Sat by Pulse Oximetry (%) 98 01/23/20 08:40 Constitutional: Yes: No Distress, Calm HENT: Yes: Other (NGT) Neck: Yes: Other (Tracheostomy) Cardiovascular: Yes: Regular Rate and Rhythm Respiratory: Yes: Mechanically Ventilated, Rhonchi Gastrointestinal: Yes: Soft, Hypoactive Bowel Sounds Edema: No Integumentary: Yes: Venous Stasis Changes Labs: CBC, BMP 01/21/20 07:55 01/21/20 07:55 INR, PTT INR 1.23 (0.83-1.09) H 01/10/20 13:50 - ....Imaging X-ray: Report Reviewed (Resoving ileus) Problem List - Problems (1) Congestive heart failure (CHF) Code(s): I50.9 - HEART FAILURE, UNSPECIFIED Qualifiers: Heart failure type: diastolic Heart failure chronicity: acute on chronic Qualified Code(s): I50.33 - Acute on chronic diastolic (congestive) heart failure (2) Pneumonia Code(s): J18.9 - PNEUMONIA, UNSPECIFIED ORGANISM Qualifiers: Pneumonia type: due to unspecified organism Laterality: right Lung location: lower lobe of lung Qualified Code(s): J18.9 - Pneumonia, unspecified organism (3) Acute on chronic diastolic (congestive) heart failure Code(s): I50.33 - ACUTE ON CHRONIC DIASTOLIC (CONGESTIVE) HEART FAILURE (4) Acute respiratory failure with hypoxia and hypercarbia Code(s): J96.01 - ACUTE RESPIRATORY FAILURE WITH HYPOXIA; J96.02 - ACUTE RESPIRATORY FAILURE WITH HYPERCAPNIA (5) Atrial fibrillation Code(s): I48.91 - UNSPECIFIED ATRIAL FIBRILLATION Qualifiers: Atrial fibrillation type: paroxysmal Qualified Code(s): I48.0 - Paroxysmal atrial fibrillation (6) COPD (chronic obstructive pulmonary disease) Code(s): J44.9 - CHRONIC OBSTRUCTIVE PULMONARY DISEASE, UNSPECIFIED Qualifiers: COPD type: unspecified COPD Qualified Code(s): J44.9 - Chronic obstructive pulmonary disease, unspecified (7) Hypertension Code(s): I10 - ESSENTIAL (PRIMARY) HYPERTENSION Qualifiers: Hypertension type: essential hypertension Qualified Code(s): I10 - Essential (primary) hypertension (8) Pleural effusion Code(s): J90 - PLEURAL EFFUSION, NOT ELSEWHERE CLASSIFIED Assessment/Plan 10/26/2017 Normal LV size with mild LVH, normal LV fxn, normal RV size and fxn, mild LAE, mild MR, mild-mod TR, mild OH, RVSP 43 mmHg 11/19/2016 Lexiscan Myoview: Apical ischemia, LVEF 45-52% 10/06/2016 Echocardiography revealed mild to moderate LV systolic dysfunction, moderate TR, RVSP of 30-40 mmHg 1. Acute on chronic Hypoxic and Hypercapneic Respiratory Failure with tracheostomy 2. Acute on chronic LV Diastolic Heart Failure with pleural effusion 3. Pneumonia, ARDS (septic shock) resolved 4. Paroxysmal atrial fibrillation with periods of rapid ventricular response post DCCV, [id number] score of 2 5. Obstructive Sleep Apnea/Obesity 6. HTN/HCVD 7. Hypercholesterolemia 8. CAD, angina pectoris 9. Bilateral cellulitis with h/o abscess s/p debridement 10. Bilateral hydrocele 11. Improving Ileus due to underlying co morbid conditions PLAN: 1. Vent support via tracheostomy, wean FIO2 and PEEP to maintain saO2>90%, PMV as tolerated 2. DVT and GI prophylaxis and enteral feeds held 3. Diuretics held with monitor renal function and electrolytes 4. Continue Lopressor 25 mg BID and Eliquis 5 mg BID (via NGT) 5. F/u serial AXRs, GI and surgery inputs appreciated
[2020-01-23] MEDS: VANCOMYCIN 1 GRAM (PRE-DOCKED) 1,000 MG/250 ML BAG IVPB SCH ×2 (10:35→22:10)
[2020-01-23] MEDS: PANTOPRAZOLE SODIUM 40 MG VIAL IVPUSH SCH (10:35)
--- NOTE | 2020-01-23 11:02 | PN ---
Progress Note, [employer] - Note Progress Note: Selected Entries 01/22/20 01/22/20 01/22/20 00:45 02:00 04:10 Supper Temperature Pulse Rate Respiratory 16 18 14 Rate Respiratory Effort Blood Pressure O2 Sat by Pulse Oximetry (%) 01/22/20 01/22/20 01/22/20 06:00 07:53 08:57 Supper Temperature Pulse Rate Respiratory 16 20 20 Rate Respiratory Effort Blood Pressure O2 Sat by Pulse Oximetry (%) 01/22/20 01/22/20 01/22/20 09:00 12:03 14:00 Supper Temperature Pulse Rate Respiratory 22 H 22 H 22 H Rate Respiratory Non-Labored Effort Blood Pressure O2 Sat by Pulse Oximetry (%) 01/22/20 01/22/20 01/22/20 16:28 18:00 18:34 Supper NPO Temperature Pulse Rate Respiratory 14 20 Rate Respiratory Effort Blood Pressure O2 Sat by Pulse Oximetry (%) 01/22/20 01/22/20 01/22/20 21:00 21:15 21:35 Supper Temperature Pulse Rate Respiratory 16 17 16 Rate Respiratory Non-Labored Effort Blood Pressure O2 Sat by Pulse Oximetry (%) 01/23/20 01/23/20 01/23/20 01:00 02:00 04:30 Supper Temperature 97.9 F Pulse Rate 75 Respiratory 15 15 20 Rate Respiratory Effort Blood Pressure 117/73 O2 Sat by Pulse 95 96 Oximetry (%) 01/23/20 01/23/20 01/23/20 05:40 08:16 08:40 Supper Temperature 98.0 F Pulse Rate 78 81 Respiratory 18 24 H 16 Rate Respiratory Effort Blood Pressure 124/81 O2 Sat by Pulse 95 94 L 98 Oximetry (%) 01/23/20 01/23/20 10:00 11:22 Supper Temperature 98.3 F Pulse Rate 84 81 Respiratory 24 H 24 H Rate Respiratory Non-Labored Effort Blood Pressure 134/77 O2 Sat by Pulse 99 96 Oximetry (%) Per [id number] and non tender; less distended and tympanitic 500cc output from NGT. IMP: improving pseudoobstruction PMV performed by RT 01/17, on hold since, pending Sp pathology PMV evaluation, once medically appropriate. Discussed with PNP- Suction dischargeed and case was discussed with surgeon. Plan tomorrow for PMV evaluation, bedside swallowing evaluation and MBS, when indicated, to initiate PO trials.
--- NOTE | 2020-01-23 11:39 | PN ---
Progress Note, Physician Chief Complaint: Acute on Chronic Hypoxic and Hypercapneic Respiratory Failure s/p Tracheostomy Pneumonia ARDS Septic Shock Acute on Chronic Diastolic Heart Failure Pulmonary HTN Paroxysmal Atrial Fibrillation CAD Acute Kidney Injury COPD JUANA/OHS SBO History of Present Illness: NAD, alert and oriented Denies any pain but extremely restless AXR no SBO Started on Meds K at 3.2 today - Current Medication List Current Medications: Active Medications Amino Acids (Prosource No Carb Liquid Pkt) 30 ml NGT DAILY@0800 [facility] Last Admin: 01/17/20 09:52 Dose: Not Given Documented by: Apixaban (Eliquis -) 5 mg NGT BID [facility] Last Admin: 01/17/20 11:01 Dose: Not Given Documented by: Ascorbic Acid (Vitamin C Oral Solution -) 1,000 mg NGT DAILY [facility] Last Admin: 01/17/20 11:02 Dose: Not Given Documented by: Chlorhexidine Gluconate (Peridex -) 15 ml MM BID [facility] Last Admin: 01/22/20 23:11 Dose: 15 ml Documented by: Enoxaparin Sodium 80 mg/ (Enoxaparin Sodium 30 mg) 110 mg SQ Q12H [facility] Last Admin: 01/23/20 05:27 Dose: 110 mg Documented by: Vancomycin HCl (Vancomycin (Pre-Docked)) 1,000 mg in 250 mls @ 250 mls/hr IVPB BID [facility]; Protocol Last Admin: 01/23/20 10:35 Dose: 250 mls/hr Documented by: Potassium Chloride 40 meq/ (Amino Acids) 1,020 mls @ 83 mls/hr IVPB Q12H [facility] Last Admin: 01/23/20 00:41 Dose: Not Given Documented by: Metoprolol Tartrate (Lopressor -) 25 mg NGT BID [facility] Last Admin: 01/17/20 11:01 Dose: Not Given Documented by: Metoprolol Tartrate (Lopressor Injection -) 5 mg IVPB Q4H PRN PRN Reason: HYPERTENSION Multivitamins/Minerals (Certavite-Antioxidant Liquid) 15 ml NGT DAILY [facility] Last Admin: 01/17/20 11:01 Dose: Not Given Documented by: Pantoprazole Sodium (Protonix Iv) 40 mg IVPUSH DAILY [facility] Last Admin: 01/23/20 10:35 Dose: 40 mg Documented by: - Objective Vital Signs: Vital Signs Temperature 98.0 F 07/20/20 05:40 Pulse Rate 81 01/23/20 11:22 Respiratory Rate 24 H 01/23/20 11:22 Blood Pressure 124/81 01/23/20 05:40 O2 Sat by Pulse Oximetry (%) 96 01/23/20 11:22 Constitutional: Yes: Well Nourished, No Distress, Calm, Obese Cardiovascular: Yes: Regular Rate and Rhythm Respiratory: Yes: Regular, Mechanically Ventilated, Rhonchi Gastrointestinal: Yes: Soft, Abdomen, Obese, Hypoactive Bowel Sounds Genitourinary: Yes: WNL Musculoskeletal: Yes: WNL Extremities: Yes: WNL Edema: No Peripheral Pulses WNL: Yes Neurological: Yes: Alert, Pre-Existing Deficit Psychiatric: Yes: Alert Labs: CBC, BMP 01/21/20 07:55 01/21/20 07:55 INR, PTT INR 1.23 (0.83-1.09) H 01/10/20 13:50 Problem List - Problems (1) SBO (small bowel obstruction) Assessment/Plan: -GI consult appreciated -Surgery consult appreciated -NPO -AXR no SBO -Continue NGT to low continous suction -Continue gentle IVF Problems reviewed: Yes Code(s): K56.609 - UNSP INTESTNL OBST, UNSP TO PARTIAL VERSUS COMPLETE OBST (2) Morbid obesity Problems reviewed: Yes Code(s): E66.01 - MORBID (SEVERE) OBESITY DUE TO EXCESS CALORIES (3) Pneumonia Assessment/Plan: -ID consult appreciated -Afebrile -Cultures: Microbiology 01/12/20 12:43 Blood Culture - Final Blood - Peripheral Venous NO GROWTH AFTER 5 DAYS INCUBATION 01/12/20 12:48 Blood Culture - Final Blood - Peripheral Venous NO GROWTH AFTER 5 DAYS INCUBATION -SC:MRSA -On IV Vanco Problems reviewed: Yes Code(s): J18.9 - PNEUMONIA, UNSPECIFIED ORGANISM Qualifiers: Pneumonia type: due to unspecified organism Laterality: right Lung location: lower lobe of lung Qualified Code(s): J18.9 - Pneumonia, unspecified organism (4) Atrial fibrillation Assessment/Plan: -Start Lovenox BID until able to use GT Problems reviewed: Yes Code(s): I48.91 - UNSPECIFIED ATRIAL FIBRILLATION Qualifiers: Atrial fibrillation type: paroxysmal Qualified Code(s): I48.0 - Paroxysmal atrial fibrillation (5) Respiratory failure with hypoxia and hypercapnia Assessment/Plan: -Pulmonary on board -S/P trach -Mech vent -Wean as tolerated -LTAC placement upon discharge -Trial of Passy jaki Problems reviewed: Yes Code(s): J96.91 - RESPIRATORY FAILURE, UNSPECIFIED WITH HYPOXIA; J96.92 - RESPIRATORY FAILURE, UNSPECIFIED WITH HYPERCAPNIA Qualifiers: Chronicity: acute on chronic Qualified Code(s): J96.21 - Acute and chronic respiratory failure with hypoxia; J96.22 - Acute and chronic respiratory failure with hypercapnia (6) Hypokalemia Assessment/Plan: -KCL IV 10 meq x 3 again today -Gentle IVF-D51/2 NS+ KCl40 meq @ 50cc/hr -Nephrology on board -Monitor trend Problems reviewed: Yes Code(s): E87.6 - HYPOKALEMIA (7) MRSA (methicillin resistant staphylococcus aureus) pneumonia Problems reviewed: Yes Code(s): J15.212 - PNEUMONIA DUE TO METHICILLIN RESISTANT STAPHYLOCOCCUS AUREUS (8) Anxiety Assessment/Plan: -Trial of SSRI -Ativan PRN Problems reviewed: Yes Code(s): F41.9 - ANXIETY DISORDER, UNSPECIFIED Assessment/Plan See problem list Left ms for mother Mariana to call back for status update.
[2020-01-23] MEDS ORDERED: ACETAMINOPHEN 1000 MG/100 ML VIAL (NON FORMULARY) IVPB PRN (12:28)
--- NOTE | 2020-01-23 13:01 | PN ---
Progress Note (short form) - Note Progress Note: Awake and alert on SIMV 6 Mode of vent. Some mild residual abdominal tenderness. 500cc output from NGT. Intake & Output 01/20/20 01/21/20 01/22/20 01/23/20 23:59 23:59 23:59 23:59 Intake Total 1750 2370 1000 1038 Output Total 3000 1500 1850 Balance -1250 870 -850 1038 Weight 218 lb 9 oz 219 lb 11.2 oz 218 lb 1.6 oz Last Vital Signs Temp Pulse Resp BP Pulse Ox 98.3 F 81 24 H 134/77 96 01/23/20 10:00 01/23/20 11:22 01/23/20 11:22 01/23/20 10:00 01/23/20 11:22 Active Medications Acetaminophen (Ofirmev Injection -) 1,000 mg IVPB Q6H PRN PRN Reason: PAIN Stop: 01/24/20 12:28 Amino Acids (Prosource No Carb Liquid Pkt) 30 ml NGT DAILY@0800 [facility] Last Admin: 01/17/20 09:52 Dose: Not Given Documented by: Apixaban (Eliquis -) 5 mg NGT BID [facility] Last Admin: 01/17/20 11:01 Dose: Not Given Documented by: Ascorbic Acid (Vitamin C Oral Solution -) 1,000 mg NGT DAILY [facility] Last Admin: 01/17/20 11:02 Dose: Not Given Documented by: Chlorhexidine Gluconate (Peridex -) 15 ml MM BID [facility] Last Admin: 01/22/20 23:11 Dose: 15 ml Documented by: Enoxaparin Sodium 80 mg/ (Enoxaparin Sodium 30 mg) 110 mg SQ Q12H [facility] Last Admin: 01/23/20 05:27 Dose: 110 mg Documented by: Vancomycin HCl (Vancomycin (Pre-Docked)) 1,000 mg in 250 mls @ 250 mls/hr IVPB BID [facility]; Protocol Last Admin: 01/23/20 10:35 Dose: 250 mls/hr Documented by: Potassium Chloride 40 meq/ (Amino Acids) 1,020 mls @ 83 mls/hr IVPB Q12H [facility] Last Admin: 01/23/20 00:41 Dose: Not Given Documented by: Lorazepam (Ativan Injection -) 0.5 mg IVPUSH BID PRN PRN Reason: ANXIETY Metoprolol Tartrate (Lopressor -) 25 mg NGT BID [facility] Last Admin: 01/17/20 11:01 Dose: Not Given Documented by: Metoprolol Tartrate (Lopressor Injection -) 5 mg IVPB Q4H PRN PRN Reason: HYPERTENSION Multivitamins/Minerals (Certavite-Antioxidant Liquid) 15 ml NGT DAILY [facility] Last Admin: 01/17/20 11:01 Dose: Not Given Documented by: Pantoprazole Sodium (Protonix Iv) 40 mg IVPUSH DAILY [facility] Last Admin: 01/23/20 10:35 Dose: 40 mg Documented by: Gen: vented, awake Heart: RRR Lung: scattered rhonchi Abd: softly distended, nontender Ext: no edema A/P Acute on Chronic Hypoxic and Hypercapneic Respiratory Failure s/p Tracheostomy Pneumonia ARDS resolved Septic Shock resolved Acute on Chronic Diastolic Heart Failure Pulmonary HTN Paroxysmal Atrial Fibrillation CAD Acute Kidney Injury Likely COPD JUANA/OHS HTN Hypercholesterolemia - Wean as tolerated: Will be able to optimize PMV once GI issues resolve - antibiotics per ID - rate control - continue anticoagulation - titrate FiO2, PEEP to keep SpO2 >90% - monitor urine output, creatinine - enteral feeds on hold - DVT/GI prophylaxis Dr Sanz
[2020-01-23] MEDS: LORazepam 2 MG/ML SDV VIAL IVPUSH PRN (13:04)
[2020-01-23] MEDS: CHLORHEXIDINE GLUCONATE 0.12% 15ML CUP MM SCH (13:07)
[2020-01-23] MEDS ORDERED: MAGNESIUM 2GM/50ML STERILE WATER IVPB IVPB ONE (13:34)
--- NOTE | 2020-01-23 13:36 | PN ---
Progress Note, Physician History of Present Illness: Pt seen and examined at bedside. He is awake and alert. He remains on vent. - Current Medication List Current Medications: Active Medications Acetaminophen (Ofirmev Injection -) 1,000 mg IVPB Q6H PRN PRN Reason: PAIN Stop: 01/24/20 12:28 Amino Acids (Prosource No Carb Liquid Pkt) 30 ml NGT DAILY@0800 [facility] Last Admin: 01/17/20 09:52 Dose: Not Given Documented by: Apixaban (Eliquis -) 5 mg NGT BID [facility] Last Admin: 01/17/20 11:01 Dose: Not Given Documented by: Ascorbic Acid (Vitamin C Oral Solution -) 1,000 mg NGT DAILY [facility] Last Admin: 01/17/20 11:02 Dose: Not Given Documented by: Chlorhexidine Gluconate (Peridex -) 15 ml MM BID [facility] Last Admin: 01/23/20 13:07 Dose: 15 ml Documented by: Enoxaparin Sodium 80 mg/ (Enoxaparin Sodium 30 mg) 110 mg SQ Q12H [facility] Last Admin: 01/23/20 05:27 Dose: 110 mg Documented by: Vancomycin HCl (Vancomycin (Pre-Docked)) 1,000 mg in 250 mls @ 250 mls/hr IVPB BID [facility]; Protocol Last Admin: 01/23/20 10:35 Dose: 250 mls/hr Documented by: Potassium Chloride 40 meq/ (Amino Acids) 1,020 mls @ 83 mls/hr IVPB Q12H [facility] Last Admin: 01/23/20 13:06 Dose: 83 mls/hr Documented by: Potassium Chloride (Potassium Chloride 10 Meq Premix Ivpb -) 10 meq in 100 mls @ 100 mls/hr IVPB Q60M [facility] Stop: 01/23/20 16:44 Lorazepam (Ativan Injection -) 0.5 mg IVPUSH BID PRN PRN Reason: ANXIETY Last Admin: 01/23/20 13:04 Dose: 0.5 mg Documented by: Metoprolol Tartrate (Lopressor -) 25 mg NGT BID [facility] Last Admin: 01/17/20 11:01 Dose: Not Given Documented by: Metoprolol Tartrate (Lopressor Injection -) 5 mg IVPB Q4H PRN PRN Reason: HYPERTENSION Multivitamins/Minerals (Certavite-Antioxidant Liquid) 15 ml NGT DAILY [facility] Last Admin: 01/17/20 11:01 Dose: Not Given Documented by: Pantoprazole Sodium (Protonix Iv) 40 mg IVPUSH DAILY [facility] Last Admin: 01/23/20 10:35 Dose: 40 mg Documented by: - Objective Vital Signs: Vital Signs Temperature 98.3 F 01/23/20 10:00 Pulse Rate 81 01/23/20 11:22 Respiratory Rate 24 H 01/23/20 11:22 Blood Pressure 134/77 01/23/20 10:00 O2 Sat by Pulse Oximetry (%) 96 01/23/20 11:22 Constitutional: Yes: Calm Eyes: Yes: Conjunctiva Clear HENT: Yes: Atraumatic Neck: Yes: Supple Cardiovascular: Yes: S1, S2 Respiratory: Yes: Mechanically Ventilated Gastrointestinal: Yes: Soft Genitourinary: Yes: Incontinence Edema: No Integumentary: Yes: Venous Stasis Changes Neurological: Yes: Oriented Labs: CBC, BMP 01/21/20 07:55 01/21/20 07:55 INR, PTT INR 1.23 (0.83-1.09) H 01/10/20 13:50 Problem List - Problems (1) Anasarca Code(s): R60.1 - GENERALIZED EDEMA (2) Congestive heart failure (CHF) Code(s): I50.9 - HEART FAILURE, UNSPECIFIED Qualifiers: Heart failure type: diastolic Heart failure chronicity: acute on chronic Qualified Code(s): I50.33 - Acute on chronic diastolic (congestive) heart failure (3) Acute kidney injury Code(s): N17.9 - ACUTE KIDNEY FAILURE, UNSPECIFIED Assessment/Plan Current Medications Generic Name Dose Route Start Last Admin Trade Name Freq PRN Reason Stop Dose Admin Acetaminophen 1,000 mg 01/23/20 12:28 Ofirmev Injection - IVPB 01/24/20 12:28 Q6H PRN PAIN Amino Acids 30 ml 01/12/20 08:00 01/17/20 09:52 Prosource No Carb Liquid Pkt NGT Not Given DAILY@0800 [facility] Apixaban 5 mg 01/12/20 11:30 01/17/20 11:01 Eliquis - NGT Not Given BID [facility] Ascorbic Acid 1,000 mg 01/12/20 11:30 01/17/20 11:02 Vitamin C Oral Solution - NGT Not Given DAILY [facility] Chlorhexidine Gluconate 15 ml 01/12/20 10:00 01/23/20 13:07 Peridex - MM 15 ml BID [facility] Administration Enoxaparin Sodium 80 mg/ 110 mg 01/18/20 06:00 01/23/20 05:27 Enoxaparin Sodium 30 mg SQ 110 mg Q12H [facility] Administration Vancomycin HCl 1,000 mg in 250 mls @ 250 mls/hr 01/14/20 22:00 01/23/20 10:35 Vancomycin (Pre-Docked) IVPB 250 mls/hr BID [facility] Administration Protocol Potassium Chloride 40 meq/ 1,020 mls @ 83 mls/hr 01/20/20 13:17 01/23/20 13:06 Amino Acids IVPB 83 mls/hr Q12H [facility] Administration Potassium Chloride 10 meq in 100 mls @ 100 mls/hr 01/23/20 13:45 Potassium Chloride 10 Meq Premix Ivpb - IVPB 01/23/20 16:44 Q60M [facility] Lorazepam 0.5 mg 01/23/20 12:29 01/23/20 13:04 Ativan Injection - IVPUSH 0.5 mg BID PRN Administration ANXIETY Magnesium Sulfate 2 gm 01/23/20 13:34 Magnesium Sulfate IVPB 01/23/20 13:35 ONCE ONE Metoprolol Tartrate 25 mg 01/12/20 11:26 01/17/20 11:01 Lopressor - NGT Not Given BID [facility] Metoprolol Tartrate 5 mg 01/16/20 17:53 Lopressor Injection - IVPB Q4H PRN HYPERTENSION Multivitamins/Minerals 15 ml 01/12/20 11:32 01/17/20 11:01 Certavite-Antioxidant Liquid NGT Not Given DAILY [facility] Pantoprazole Sodium 40 mg 01/12/20 10:00 01/23/20 10:35 Protonix Iv IVPUSH 40 mg DAILY [facility] Administration Impression 1. MONIE 2. CHF acute 3. acute resp failure requiring intubation 4. atrial fibrillation 5. hx of htn 6. obesity 7. chronic smoker 8. hypokalemia 9. partial sbo Plan - replace potassium - replace mag - cont clinimix - pt on NG to suction - dietary eval - hold off lasix for now - discussed with medical team
--- NOTE | 2020-01-23 14:04 | PN ---
Progress Note, Physician History of Present Illness: stable no new issues says feels good when asked s/p traach - Current Medication List Current Medications: Active Medications Acetaminophen (Ofirmev Injection -) 1,000 mg IVPB Q6H PRN PRN Reason: PAIN Stop: 01/24/20 12:28 Amino Acids (Prosource No Carb Liquid Pkt) 30 ml NGT DAILY@0800 [facility] Last Admin: 01/17/20 09:52 Dose: Not Given Documented by: Apixaban (Eliquis -) 5 mg NGT BID [facility] Last Admin: 01/17/20 11:01 Dose: Not Given Documented by: Ascorbic Acid (Vitamin C Oral Solution -) 1,000 mg NGT DAILY [facility] Last Admin: 01/17/20 11:02 Dose: Not Given Documented by: Chlorhexidine Gluconate (Peridex -) 15 ml MM BID [facility] Last Admin: 01/23/20 13:07 Dose: 15 ml Documented by: Enoxaparin Sodium 80 mg/ (Enoxaparin Sodium 30 mg) 110 mg SQ Q12H [facility] Last Admin: 01/23/20 05:27 Dose: 110 mg Documented by: Vancomycin HCl (Vancomycin (Pre-Docked)) 1,000 mg in 250 mls @ 250 mls/hr IVPB BID [facility]; Protocol Last Admin: 01/23/20 10:35 Dose: 250 mls/hr Documented by: Potassium Chloride 40 meq/ (Amino Acids) 1,020 mls @ 83 mls/hr IVPB Q12H [facility] Last Admin: 01/23/20 13:06 Dose: 83 mls/hr Documented by: Potassium Chloride (Potassium Chloride 10 Meq Premix Ivpb -) 10 meq in 100 mls @ 100 mls/hr IVPB Q60M [facility] Stop: 01/23/20 16:44 Lorazepam (Ativan Injection -) 0.5 mg IVPUSH BID PRN PRN Reason: ANXIETY Last Admin: 01/23/20 13:04 Dose: 0.5 mg Documented by: Magnesium Sulfate (Magnesium Sulfate) 2 gm IVPB ONCE ONE Stop: 01/23/20 13:35 Metoprolol Tartrate (Lopressor -) 25 mg NGT BID [facility] Last Admin: 01/17/20 11:01 Dose: Not Given Documented by: Metoprolol Tartrate (Lopressor Injection -) 5 mg IVPB Q4H PRN PRN Reason: HYPERTENSION Multivitamins/Minerals (Certavite-Antioxidant Liquid) 15 ml NGT DAILY [facility] Last Admin: 01/17/20 11:01 Dose: Not Given Documented by: Pantoprazole Sodium (Protonix Iv) 40 mg IVPUSH DAILY [facility] Last Admin: 01/23/20 10:35 Dose: 40 mg Documented by: - Objective Vital Signs: Vital Signs Temperature 98.3 F 01/23/20 10:00 Pulse Rate 81 01/23/20 11:22 Respiratory Rate 24 H 01/23/20 11:22 Blood Pressure 134/77 01/23/20 10:00 O2 Sat by Pulse Oximetry (%) 96 01/23/20 11:22 Constitutional: Yes: No Distress, Calm Cardiovascular: Yes: S1, S2 Respiratory: Yes: Regular, Mechanically Ventilated, Other (s/p trach) Gastrointestinal: Yes: Normal Bowel Sounds, Soft Musculoskeletal: Yes: WNL Extremities: Yes: WNL Neurological: Yes: Alert, Oriented Psychiatric: Yes: Alert, Oriented Labs: CBC, BMP 01/21/20 07:55 01/21/20 07:55 INR, PTT INR 1.23 (0.83-1.09) H 01/10/20 13:50 Assessment/Plan Problem List - Problems (1) Edema of scrotum Code(s): N50.89 - OTHER SPECIFIED DISORDERS OF THE MALE GENITAL ORGANS (2) Morbid obesity Code(s): E66.01 - MORBID (SEVERE) OBESITY DUE TO EXCESS CALORIES (3) Acute on chronic diastolic (congestive) heart failure Code(s): I50.33 - ACUTE ON CHRONIC DIASTOLIC (CONGESTIVE) HEART FAILURE (4) Acute respiratory failure requiring reintubation Code(s): J96.00 - ACUTE RESPIRATORY FAILURE, UNSP W HYPOXIA OR HYPERCAPNIA (5) Afib Code(s): I48.91 - UNSPECIFIED ATRIAL FIBRILLATION Qualifiers: Atrial fibrillation type: paroxysmal Qualified Code(s): I48.0 - Paroxysmal atrial fibrillation Assessment/Plan Acute respiratory failure s/p trach on MV PNA Ileus/ pseudoobstruction CHF b/l LE Cellulitis b/l Hydrocele MONIE Paroxysmal AFIB COPD JUANA CAD HTN HLD -- no new events, afebrile today -- continue Vancomycin (to complete total 2 wks), monitor renal function- stable -- Surgery following -- continue monitor vitals
[2020-01-23] MEDS ORDERED: PT OWN MED DRAWER 7, Y5N ONE ×2 (14:55→22:04)
[2020-01-23] MEDS: KCL 10 MEQ IVPB 10 MEQ/100 ML INFUS.BAG IVPB SCH ×3 (15:28→18:50)
--- NOTE | 2020-01-23 16:00 | PN ---
Progress Note (short form) - Note Progress Note: Attending Surgeon Seen in f/u; no BM recorded VSS AF abdo-soft and non tender; non distended and non tympanitic AXR no gross obstruction. IMP: improved pseudoobstruction PLAN: Start feeds and advance as tolerated. Олег Gonzalez MD FACS
[2020-01-23] MEDS: METOPROLOL TARTRATE 25 MG TABLET (FP) NGT SCH (22:09)
[2020-01-23] MEDS: APIXABAN 5 MG TABLET NGT SCH (22:09)
[2020-01-24] MEDS: POTASSIUM CHLORIDE 40 MEQ in AMINO ACIDS 4.25%/D5W 1,000 ML IVPB SCH ×3 (01:32→14:28)
[2020-01-24] MEDS: CHLORHEXIDINE GLUCONATE 0.12% 15ML CUP MM SCH ×3 (01:32→21:38)
--- NOTE | 2020-01-24 09:34 | PN.GI ---
GI Progress Note Subjective: No focal GI complaints 200cc fluid in suction canister - Objective Vital Signs: Vital Signs Temperature 99.0 F 01/24/20 05:00 Pulse Rate 75 01/24/20 08:57 Respiratory Rate 22 H 01/24/20 08:30 Blood Pressure 135/84 01/24/20 05:00 O2 Sat by Pulse Oximetry (%) 96 01/24/20 08:57 Constitutional: Calm Eyes: No: Sclera Icterus Cardiovascular: Yes: Regular Rate and Rhythm. No: Murmur Respiratory: Yes: Diminished (at bases bilaterally) Gastrointestinal Inspection: No: Distention ...Auscultate: Yes: Normoactive Bowel Sounds ...Palpate: Yes: Soft. No: Tenderness ...Percussion: Yes: Tympanitic (Mild tympany) Extremities: Yes: Other (chronic stasis changes) Edema: No (No LE edema) Neurological: Yes: Alert Labs: CBC, BMP 01/21/20 07:55 01/21/20 07:55 INR, PTT INR 1.23 (0.83-1.09) H 01/10/20 13:50 Problem List - Problems (1) Pseudo-obstruction of intestine Assessment/Plan: Clinically improved Advance to feeds as tolerated Monitor abdominal exam Code(s): K59.8 - OTHER SPECIFIED FUNCTIONAL INTESTINAL DISORDERS
--- NOTE | 2020-01-24 09:54 | PN ---
Progress Note, Physician History of Present Illness: pulmonary alert,comfortable,-resp distress on vent support cpap with ps 10 - Current Medication List Current Medications: Active Medications Acetaminophen (Ofirmev Injection -) 1,000 mg IVPB Q6H PRN PRN Reason: PAIN Stop: 01/24/20 12:28 Amino Acids (Prosource No Carb Liquid Pkt) 30 ml NGT DAILY@0800 [facility] Last Admin: 01/17/20 09:52 Dose: Not Given Documented by: Apixaban (Eliquis -) 5 mg NGT BID [facility] Last Admin: 01/23/20 22:09 Dose: 5 mg Documented by: Ascorbic Acid (Vitamin C Oral Solution -) 1,000 mg NGT DAILY [facility] Last Admin: 01/17/20 11:02 Dose: Not Given Documented by: Chlorhexidine Gluconate (Peridex -) 15 ml MM BID [facility] Last Admin: 01/24/20 01:32 Dose: 15 ml Documented by: Vancomycin HCl (Vancomycin (Pre-Docked)) 1,000 mg in 250 mls @ 250 mls/hr IVPB BID [facility]; Protocol Last Admin: 01/23/20 22:10 Dose: 250 mls/hr Documented by: Potassium Chloride 40 meq/ (Amino Acids) 1,020 mls @ 83 mls/hr IVPB Q12H [facility] Last Admin: 01/24/20 01:32 Dose: Not Given Documented by: Lorazepam (Ativan Injection -) 0.5 mg IVPUSH BID PRN PRN Reason: ANXIETY Last Admin: 01/23/20 13:04 Dose: 0.5 mg Documented by: Metoprolol Tartrate (Lopressor -) 25 mg NGT BID [facility] Last Admin: 01/23/20 22:09 Dose: 25 mg Documented by: Multivitamins/Minerals (Certavite-Antioxidant Liquid) 15 ml NGT DAILY [facility] Last Admin: 01/17/20 11:01 Dose: Not Given Documented by: Pantoprazole Sodium (Protonix Iv) 40 mg IVPUSH DAILY [facility] Last Admin: 01/23/20 10:35 Dose: 40 mg Documented by: - Objective Vital Signs: Vital Signs Temperature 99.0 F 01/24/20 05:00 Pulse Rate 75 01/24/20 08:57 Respiratory Rate 22 H 01/24/20 08:30 Blood Pressure 135/84 01/24/20 05:00 O2 Sat by Pulse Oximetry (%) 96 01/24/20 08:57 Constitutional: Yes: Well Nourished, Calm Eyes: Yes: WNL HENT: Yes: WNL Neck: Yes: Supple (cameron) Cardiovascular: Yes: Pulse Irregular, S1, S2 Respiratory: Yes: Rhonchi (scattered rhonchi) Gastrointestinal: Yes: Normal Bowel Sounds, Abdomen, Obese Extremities: Yes: WNL Edema: No Labs: Assessment/Plan ASSESSMENT AND PLAN: Acute on Chronic Hypoxic and Hypercapneic Respiratory Failure Pneumonia ARDS improved S/P Septic Shock Acute on Chronic Diastolic Heart Failure Pulmonary HTN Paroxysmal Atrial Fibrillation CAD Acute Kidney Injury Likely COPD JUANA/OHS HTN Hypercholesterolemia - - rate control - anticoagulation - spontaneous breathing trials as tolerated - monitor urine output, creatinine - enteral feeds - DVT/GI prophylaxis - pmv as tolerated DR MELTON
--- NOTE | 2020-01-24 10:03 | PN ---
Progress Note (short form) - Note Progress Note: SURGERY 64yo M h/o ileus, pt seen and examined at bedside. Pt denies any abd, n/v, fever, chills. Pt states he is passing flatus denies BM. Last Vital Signs Temp Pulse Resp BP Pulse Ox 99.0 F 75 22 H 135/84 96 01/24/20 05:00 01/24/20 08:57 01/24/20 08:30 01/24/20 05:00 01/24/20 08:57 CBC, BMP 01/21/20 07:55 01/21/20 07:55 PE: Gen: A&O x3 Resp: trach, vented Abd: soft, nondistended, nontender Ext: no edema IMP: improved pseudoobstruction -will restart feeds, -monitor for n/v -no acute surgical interventions at this time <Joe Franks - Last Filed: 01/24/20 09:54> - Note Progress Note: Attending Surgeon: I personally saw and examined the patient. My examination reveals a patient with a small bowel obstruction. I discussed the case with the surgical PA and agree with their findings and plan of care with any exceptions as noted. ~ Олег Gonzalez MD, FACS <Олег Gonzalez - Last Filed: 02/01/20 11:22>
[2020-01-24] MEDS ORDERED: PT OWN MED DRAWER 7, Y5N ONE ×3 (11:13→21:38)
[2020-01-24] MEDS: VANCOMYCIN 1 GRAM (PRE-DOCKED) 1,000 MG/250 ML BAG IVPB SCH ×2 (11:39→21:36)
[2020-01-24] MEDS: AMINO ACIDS/PROTEIN HYDROLYS 30 ML LIQUID.PKT NGT SCH (11:46)
[2020-01-24] MEDS: ASCORBIC ACID 500 MG/5 ML UNIT DOSE CUP NGT SCH (11:47)
[2020-01-24] MEDS: MULTIVIT-MINERALS ORAL LIQUID NGT SCH (11:47)
[2020-01-24] MEDS: METOPROLOL TARTRATE 25 MG TABLET (FP) NGT SCH ×2 (11:48→21:36)
[2020-01-24] MEDS: APIXABAN 5 MG TABLET NGT SCH ×2 (11:48→21:35)
[2020-01-24] MEDS: PANTOPRAZOLE SODIUM 40 MG VIAL IVPUSH SCH (11:48)
--- NOTE | 2020-01-24 11:49 | PN ---
Progress Note, Physician Chief Complaint: Events noted Remains on ventilator via tracheostomy Awake History of Present Illness: Patient was seen and examined. On mechanical ventilator via tracheostomy. Chart was reviewed - Current Medication List Current Medications: Active Medications Acetaminophen (Ofirmev Injection -) 1,000 mg IVPB Q6H PRN PRN Reason: PAIN Stop: 01/24/20 12:28 Last Admin: 01/24/20 11:43 Dose: 1,000 mg Documented by: Amino Acids (Prosource No Carb Liquid Pkt) 30 ml NGT DAILY@0800 [facility] Last Admin: 01/17/20 09:52 Dose: Not Given Documented by: Apixaban (Eliquis -) 5 mg NGT BID [facility] Last Admin: 01/23/20 22:09 Dose: 5 mg Documented by: Ascorbic Acid (Vitamin C Oral Solution -) 1,000 mg NGT DAILY [facility] Last Admin: 01/17/20 11:02 Dose: Not Given Documented by: Chlorhexidine Gluconate (Peridex -) 15 ml MM BID [facility] Last Admin: 01/24/20 01:32 Dose: 15 ml Documented by: Vancomycin HCl (Vancomycin (Pre-Docked)) 1,000 mg in 250 mls @ 250 mls/hr IVPB BID [facility]; Protocol Last Admin: 01/24/20 11:39 Dose: 250 mls/hr Documented by: Potassium Chloride 40 meq/ (Amino Acids) 1,020 mls @ 83 mls/hr IVPB Q12H [facility] Last Admin: 01/24/20 11:38 Dose: 83 mls/hr Documented by: Lorazepam (Ativan Injection -) 0.5 mg IVPUSH BID PRN PRN Reason: ANXIETY Last Admin: 01/23/20 13:04 Dose: 0.5 mg Documented by: Metoprolol Tartrate (Lopressor -) 25 mg NGT BID [facility] Last Admin: 01/23/20 22:09 Dose: 25 mg Documented by: Multivitamins/Minerals (Certavite-Antioxidant Liquid) 15 ml NGT DAILY [facility] Last Admin: 01/17/20 11:01 Dose: Not Given Documented by: Pantoprazole Sodium (Protonix Iv) 40 mg IVPUSH DAILY [facility] Last Admin: 01/23/20 10:35 Dose: 40 mg Documented by: - Objective Vital Signs: Vital Signs Temperature 99.0 F 01/24/20 05:00 Pulse Rate 75 07/21/20 08:57 Respiratory Rate 22 H 01/24/20 08:30 Blood Pressure 135/84 01/24/20 05:00 O2 Sat by Pulse Oximetry (%) 96 01/24/20 08:57 Neck: Yes: Supple Cardiovascular: Yes: Regular Rate and Rhythm, S1, S2 Respiratory: Yes: Diminished Gastrointestinal: Yes: Normal Bowel Sounds, Soft. No: Tenderness Edema: No Labs: CBC, BMP 01/21/20 07:55 Problem List - Problems (1) Congestive heart failure (CHF) Code(s): I50.9 - HEART FAILURE, UNSPECIFIED Qualifiers: Heart failure type: diastolic Heart failure chronicity: acute on chronic Qualified Code(s): I50.33 - Acute on chronic diastolic (congestive) heart failure (2) Pleural effusion Code(s): J90 - PLEURAL EFFUSION, NOT ELSEWHERE CLASSIFIED (3) Pneumonia Code(s): J18.9 - PNEUMONIA, UNSPECIFIED ORGANISM Qualifiers: Pneumonia type: due to unspecified organism Laterality: right Lung location: lower lobe of lung Qualified Code(s): J18.9 - Pneumonia, unspecified organism (4) Acute hypercapnic respiratory failure Code(s): J96.02 - ACUTE RESPIRATORY FAILURE WITH HYPERCAPNIA (5) Acute respiratory failure with hypoxia and hypercarbia Code(s): J96.01 - ACUTE RESPIRATORY FAILURE WITH HYPOXIA; J96.02 - ACUTE RESPI RATORY FAILURE WITH HYPERCAPNIA (6) Atrial fibrillation Code(s): I48.91 - UNSPECIFIED ATRIAL FIBRILLATION Qualifiers: Atrial fibrillation type: paroxysmal Qualified Code(s): I48.0 - Paroxysmal atrial fibrillation (7) COPD (chronic obstructive pulmonary disease) Code(s): J44.9 - CHRONIC OBSTRUCTIVE PULMONARY DISEASE, UNSPECIFIED Qualifiers: COPD type: unspecified COPD Qualified Code(s): J44.9 - Chronic obstructive pulmonary disease, unspecified (8) Hypertension Code(s): I10 - ESSENTIAL (PRIMARY) HYPERTENSION Qualifiers: Hypertension type: essential hypertension Qualified Code(s): I10 - Essen tial (primary) hypertension (9) Respiratory failure requiring intubation Code(s): J96.90 - RESPIRATORY FAILURE, UNSP, UNSP W HYPOXIA OR HYPERCAPNIA (10) Sleep apnea Code(s): G47.30 - SLEEP APNEA, UNSPECIFIED Qualifiers: Sleep apnea type: obstructive Qualified Code(s): G47.33 - Obstructive sleep apnea (adult) (pediatric) (11) Systolic and diastolic CHF, chronic Code(s): I50.42 - CHRONIC COMBINED SYSTOLIC AND DIASTOLIC HRT FAIL Assessment/Plan 1. Acute on chronic Hypoxic and Hypercapneic Respiratory Failure with tracheostomy 2. Acute on chronic LV Diastolic Heart Failure with pleural effusion 3. Pneumonia, ARDS (septic shock) 4. Paroxysmal atrial fibrillation with periods of rapid ventricular response post DCCV, [id number] score of 2 5. Obstructive Sleep Apnea/Obesity 6. HTN/HCVD 7. Hypercholesterolemia 8. CAD, angina pectoris 9. Bilateral cellulitis with h/o abscess s/p debridement 10. Bilateral hydrocele 11. Ileus - improved PLAN: 1. Vent support via tracheostomy 2. DVT and GI prophylaxis 3. Diuretics held with monitor renal function and electrolytes 4. Continue Lopressor 25 mg BID and Eliquis 5 mg BID (via NGT) 5. GI input noted Khalif Correa MD
[2020-01-24 11:54] LABS: CALCIUM 8.7 mg/dL (8.5-10.1); CREATININE 0.5 mg/dL (0.55-1.3); MAGNESIUM 2.1 mg/dL (1.8-2.4); POTASSIUM 3.7 mmol/L (3.5-5.1)
--- NOTE | 2020-01-24 12:53 | PN ---
Progress Note, Physician History of Present Illness: awake alert on vent s/p trach - Current Medication List Current Medications: Active Medications Amino Acids (Prosource No Carb Liquid Pkt) 30 ml NGT DAILY@0800 [facility] Last Admin: 01/24/20 11:46 Dose: 30 ml Documented by: Apixaban (Eliquis -) 5 mg NGT BID [facility] Last Admin: 01/24/20 11:48 Dose: 5 mg Documented by: Ascorbic Acid (Vitamin C Oral Solution -) 1,000 mg NGT DAILY [facility] Last Admin: 01/24/20 11:47 Dose: 1,000 mg Documented by: Chlorhexidine Gluconate (Peridex -) 15 ml MM BID [facility] Last Admin: 01/24/20 11:47 Dose: 15 ml Documented by: Vancomycin HCl (Vancomycin (Pre-Docked)) 1,000 mg in 250 mls @ 250 mls/hr IVPB BID [facility]; Protocol Last Admin: 01/24/20 11:39 Dose: 250 mls/hr Documented by: Potassium Chloride 40 meq/ (Amino Acids) 1,020 mls @ 83 mls/hr IVPB Q12H [facility] Last Admin: 01/24/20 11:38 Dose: 83 mls/hr Documented by: Lorazepam (Ativan Injection -) 0.5 mg IVPUSH BID PRN PRN Reason: ANXIETY Last Admin: 01/23/20 13:04 Dose: 0.5 mg Documented by: Metoprolol Tartrate (Lopressor -) 25 mg NGT BID [facility] Last Admin: 01/24/20 11:48 Dose: 25 mg Documented by: Multivitamins/Minerals (Certavite-Antioxidant Liquid) 15 ml NGT DAILY [facility] Last Admin: 01/24/20 11:47 Dose: 15 ml Documented by: Pantoprazole Sodium (Protonix Iv) 40 mg IVPUSH DAILY [facility] Last Admin: 01/24/20 11:48 Dose: 40 mg Documented by: - Objective Vital Signs: Vital Signs Temperature 99.0 F 01/24/20 05:00 Pulse Rate 75 01/24/20 08:57 Respiratory Rate 01/24/20 11:50 Blood Pressure 135/84 01/24/20 05:00 O2 Sat by Pulse Oximetry (%) 97 01/24/20 11:50 Constitutional: Yes: No Distress, Calm Cardiovascular: Yes: S1, S2 Respiratory: Yes: Mechanically Ventilated, Other (s/p trach) Gastrointestinal: Yes: Normal Bowel Sounds, Soft Musculoskeletal: Yes: WNL Extremities: Yes: WNL Neurological: Yes: Alert, Oriented Psychiatric: Yes: Alert, Oriented Labs: CBC, BMP 01/21/20 07:55 01/24/20 11:00 INR, PTT INR 1.23 (0.83-1.09) H 01/10/20 13:50 Assessment/Plan Problem List - Problems (1) Edema of scrotum Code(s): N50.89 - OTHER SPECIFIED DISORDERS OF THE MALE GENITAL ORGANS (2) Morbid obesity Code(s): E66.01 - MORBID (SEVERE) OBESITY DUE TO EXCESS CALORIES (3) Acute on chronic diastolic (congestive) heart failure Code(s): I50.33 - ACUTE ON CHRONIC DIASTOLIC (CONGESTIVE) HEART FAILURE (4) Acute respiratory failure requiring reintubation Code(s): J96.00 - ACUTE RESPIRATORY FAILURE, UNSP W HYPOXIA OR HYPERCAPNIA (5) Afib Code(s): I48.91 - UNSPECIFIED ATRIAL FIBRILLATION Qualifiers: Atrial fibrillation type: paroxysmal Qualified Code(s): I48.0 - Paroxysmal atrial fibrillation Assessment/Plan Acute respiratory failure s/p trach on MV PNA Ileus/ pseudoobstruction CHF b/l LE Cellulitis b/l Hydrocele MONIE Paroxysmal AFIB COPD JUANA CAD HTN HLD -- no new events, afebrile today -- continue Vancomycin (to complete total 2 wks), monitor renal function- stable -- Surgery following -- continue monitor vitals monitor vanco levels
--- NOTE | 2020-01-24 13:14 | PN ---
Progress Note, Physician History of Present Illness: Pt seen and examined at bedside. He is awake and alert. He denies abd pain. - Current Medication List Current Medications: Active Medications Amino Acids (Prosource No Carb Liquid Pkt) 30 ml NGT DAILY@0800 [facility] Last Admin: 01/24/20 11:46 Dose: 30 ml Documented by: Apixaban (Eliquis -) 5 mg NGT BID [facility] Last Admin: 01/24/20 11:48 Dose: 5 mg Documented by: Ascorbic Acid (Vitamin C Oral Solution -) 1,000 mg NGT DAILY [facility] Last Admin: 01/24/20 11:47 Dose: 1,000 mg Documented by: Chlorhexidine Gluconate (Peridex -) 15 ml MM BID [facility] Last Admin: 01/24/20 11:47 Dose: 15 ml Documented by: Vancomycin HCl (Vancomycin (Pre-Docked)) 1,000 mg in 250 mls @ 250 mls/hr IVPB BID [facility]; Protocol Last Admin: 01/24/20 11:39 Dose: 250 mls/hr Documented by: Potassium Chloride 40 meq/ (Amino Acids) 1,020 mls @ 83 mls/hr IVPB Q12H [facility] Last Admin: 01/24/20 11:38 Dose: 83 mls/hr Documented by: Lorazepam (Ativan Injection -) 0.5 mg IVPUSH BID PRN PRN Reason: ANXIETY Last Admin: 01/23/20 13:04 Dose: 0.5 mg Documented by: Metoprolol Tartrate (Lopressor -) 25 mg NGT BID [facility] Last Admin: 01/24/20 11:48 Dose: 25 mg Documented by: Multivitamins/Minerals (Certavite-Antioxidant Liquid) 15 ml NGT DAILY [facility] Last Admin: 01/24/20 11:47 Dose: 15 ml Documented by: Pantoprazole Sodium (Protonix Iv) 40 mg IVPUSH DAILY [facility] Last Admin: 01/24/20 11:48 Dose: 40 mg Documented by: - Objective Vital Signs: Vital Signs Temperature 99.0 F 01/24/20 05:00 Pulse Rate 75 01/24/20 08:57 Respiratory Rate 01/24/20 11:50 Blood Pressure 135/84 01/24/20 05:00 O2 Sat by Pulse Oximetry (%) 97 01/24/20 11:50 Constitutional: Yes: Calm Eyes: Yes: Conjunctiva Clear HENT: Yes: Atraumatic Neck: Yes: Supple Cardiovascular: Yes: S1, S2 Respiratory: Yes: CTA Bilaterally Gastrointestinal: Yes: Soft, Abdomen, Obese Genitourinary: Yes: Incontinence Musculoskeletal: Yes: WNL Edema: Yes Edema: LLE: Trace, RLE: Trace Neurological: Yes: Oriented Psychiatric: Yes: Oriented Labs: CBC, BMP 01/21/20 07:55 01/24/20 11:00 INR, PTT INR 1.23 (0.83-1.09) H 01/10/20 13:50 Problem List - Problems (1) Anasarca Code(s): R60.1 - GENERALIZED EDEMA (2) Congestive heart failure (CHF) Code(s): I50.9 - HEART FAILURE, UNSPECIFIED Qualifiers: Heart failure type: diastolic Heart failure chronicity: acute on chronic Qualified Code(s): I50.33 - Acute on chronic diastolic (congestive) heart failure (3) Acute kidney injury Code(s): N17.9 - ACUTE KIDNEY FAILURE, UNSPECIFIED Assessment/Plan Current Medications Generic Name Dose Route Start Last Admin Trade Name Freq PRN Reason Stop Dose Admin Amino Acids 30 ml 01/12/20 08:00 01/24/20 11:46 Prosource No Carb Liquid Pkt NGT 30 ml DAILY@0800 [facility] Administration Apixaban 5 mg 01/12/20 11:30 01/24/20 11:48 Eliquis - NGT 5 mg BID [facility] Administration Ascorbic Acid 1,000 mg 01/12/20 11:30 01/24/20 11:47 Vitamin C Oral Solution - NGT 1,000 mg DAILY [facility] Administration Chlorhexidine Gluconate 15 ml 01/12/20 10:00 01/24/20 11:47 Peridex - MM 15 ml BID [facility] Administration Vancomycin HCl 1,000 mg in 250 mls @ 250 mls/hr 01/14/20 22:00 01/24/20 11:39 Vancomycin (Pre-Docked) IVPB 250 mls/hr BID [facility] Administration Protocol Potassium Chloride 40 meq/ 1,020 mls @ 83 mls/hr 01/20/20 13:17 01/24/20 11:38 Amino Acids IVPB 83 mls/hr Q12H [facility] Administration Lorazepam 0.5 mg 01/23/20 12:29 01/23/20 13:04 Ativan Injection - IVPUSH 0.5 mg BID PRN Administration ANXIETY Metoprolol Tartrate 25 mg 01/12/20 11:26 01/24/20 11:48 Lopressor - NGT 25 mg BID [facility] Administration Multivitamins/Minerals 15 ml 01/12/20 11:32 01/24/20 11:47 Certavite-Antioxidant Liquid NGT 15 ml DAILY [facility] Administration Pantoprazole Sodium 40 mg 01/12/20 10:00 01/24/20 11:48 Protonix Iv IVPUSH 40 mg DAILY [facility] Administration Impression 1. MONIE 2. CHF acute 3. acute resp failure requiring intubation 4. atrial fibrillation 5. hx of htn 6. obesity 7. chronic smoker 8. hypokalemia 9. partial sbo Plan - potassium improved - can d/c clinimix of he tolerates feeds - repeat labs in am - cont vent support - surgery input appreciated - hold off lasix for now
--- NOTE | 2020-01-24 14:25 | PN ---
Progress Note, CAMP DIRECTOR - Note Progress Note: Selected Entries 01/23/20 01/24/20 01/24/20 22:00 01:00 05:00 Supper NPO Temperature 98.1 F 99.0 F Pulse Rate 79 83 Blood Pressure 135/77 135/84 01/24/20 08:57 Supper Temperature Pulse Rate 75 Blood Pressure Laboratory Tests 12/16/19 01/13/20 21:25 00:05 COVID-19 (RAJENDRA) Not detected Not detected Assessed at bedside with RT for PMV evaluation. Sleepy, poor attention span, thinks he is "on the Concourse". Per RT, pt was more alert and interacxtive this morning. 02 sat 97. Afebrile. Pt did not sleep last night. Pt not a good candidate for PMV trial today. To reassess tomorrow.
[2020-01-24] MEDS ORDERED: INSULIN (NOVOLOG) ASPART 100 UNITS/ML 10ML VIAL ONE (17:15)
[2020-01-24] MEDS ORDERED: ACETAMINOPHEN 650 MG/20.3 ML ORAL SOLUTION (CUPS) PO PRN (17:28)
--- NOTE | 2020-01-24 17:32 | PN ---
Progress Note, Physician Chief Complaint: Acute on Chronic Hypoxic and Hypercapneic Respiratory Failure s/p Tracheostomy Pneumonia ARDS Septic Shock Acute on Chronic Diastolic Heart Failure Pulmonary HTN Paroxysmal Atrial Fibrillation CAD Acute Kidney Injury COPD JUANA/OHS SBO History of Present Illness: NAD, alert but sleepy Mother at bedside AXR no SBO - Current Medication List Current Medications: Active Medications Amino Acids (Prosource No Carb Liquid Pkt) 30 ml NGT DAILY@0800 [facility] Last Admin: 01/24/20 11:46 Dose: 30 ml Documented by: Apixaban (Eliquis -) 5 mg NGT BID [facility] Last Admin: 01/24/20 11:48 Dose: 5 mg Documented by: Ascorbic Acid (Vitamin C Oral Solution -) 1,000 mg NGT DAILY [facility] Last Admin: 01/24/20 11:47 Dose: 1,000 mg Documented by: Chlorhexidine Gluconate (Peridex -) 15 ml MM BID [facility] Last Admin: 01/24/20 11:47 Dose: 15 ml Documented by: Vancomycin HCl (Vancomycin (Pre-Docked)) 1,000 mg in 250 mls @ 250 mls/hr IVPB BID [facility]; Protocol Last Admin: 01/24/20 11:39 Dose: 250 mls/hr Documented by: Potassium Chloride 40 meq/ (Amino Acids) 1,020 mls @ 83 mls/hr IVPB Q12H [facility] Last Admin: 01/24/20 14:28 Dose: Not Given Documented by: Lorazepam (Ativan Injection -) 0.5 mg IVPUSH BID PRN PRN Reason: ANXIETY Last Admin: 01/23/20 13:04 Dose: 0.5 mg Documented by: Metoprolol Tartrate (Lopressor -) 25 mg NGT BID [facility] Last Admin: 01/24/20 11:48 Dose: 25 mg Documented by: Multivitamins/Minerals (Certavite-Antioxidant Liquid) 15 ml NGT DAILY [facility] Last Admin: 01/24/20 11:47 Dose: 15 ml Documented by: - Objective Vital Signs: Vital Signs Temperature 98.2 F 01/24/20 15:29 Pulse Rate 71 01/24/20 15:29 Respiratory Rate 21 H 01/24/20 15:37 Blood Pressure 130/85 01/24/20 15:29 O2 Sat by Pulse Oximetry (%) 98 01/24/20 15:37 Constitutional: Yes: Well Nourished, No Distress, Calm, Obese Cardiovascular: Yes: Regular Rate and Rhythm Respiratory: Yes: Regular, Mechanically Ventilated, Rales (diffuse) Gastrointestinal: Yes: Normal Bowel Sounds, Soft, Abdomen, Obese Genitourinary: Yes: Incontinence Musculoskeletal: Yes: Muscle Weakness Edema: No Peripheral Pulses WNL: Yes Neurological: Yes: Alert, Oriented Psychiatric: Yes: Alert, Oriented Labs: CBC, BMP 01/21/20 07:55 01/24/20 11:00 INR, PTT INR 1.23 (0.83-1.09) H 01/10/20 13:50 Problem List - Problems (1) SBO (small bowel obstruction) Assessment/Plan: -Resolved -GI consult appreciated -Surgery consult appreciated -Repeat AXR no SBO -Start TF Jevity 1.5 -D/C IVF Problems reviewed: Yes Code(s): K56.609 - UNSP INTESTNL OBST, UNSP TO PARTIAL VERSUS COMPLETE OBST (2) Morbid obesity Problems reviewed: Yes Code(s): E66.01 - MORBID (SEVERE) OBESITY DUE TO EXCESS CALORIES (3) Pneumonia Assessment/Plan: -ID consult appreciated -Afebrile -Cultures: Microbiology 01/12/20 12:43 Blood Culture - Final Blood - Peripheral Venous NO GROWTH AFTER 5 DAYS INCUBATION 01/12/20 12:48 Blood Culture - Final Blood - Peripheral Venous NO GROWTH AFTER 5 DAYS INCUBATION -SC:MRSA -On IV Vanco Problems reviewed: Yes Code(s): J18.9 - PNEUMONIA, UNSPECIFIED ORGANISM Qualifiers: Pneumonia type: due to unspecified organism Laterality: right Lung location: lower lobe of lung Qualified Code(s): J18.9 - Pneumonia, unspecified organism (4) Atrial fibrillation Assessment/Plan: -Restart Eliquis via GT Problems reviewed: Yes Code(s): I48.91 - UNSPECIFIED ATRIAL FIBRILLATION Qualifiers: Atrial fibrillation type: paroxysmal Qualified Code(s): I48.0 - Paroxysmal atrial fibrillation (5) Respiratory failure with hypoxia and hypercapnia Assessment/Plan: -Pulmonary on board -S/P trach -Mech vent -Wean as tolerated -LTAC placement upon discharge -Trial of Passy Hallett -Speech pathology consult -Consult for PEG placement Problems reviewed: Yes Code(s): J96.91 - RESPIRATORY FAILURE, UNSPECIFIED WITH HYPOXIA; J96.92 - RESPIRATORY FAILURE, UNSPECIFIED WITH HYPERCAPNIA Qualifiers: Chronicity: acute on chronic Qualified Code(s): J96.21 - Acute and chronic respiratory failure with hypoxia; J96.22 - Acute and chronic respiratory failure with hypercapnia (6) Hypokalemia Assessment/Plan: -Resolved -Nephrology on board -Monitor trend Problems reviewed: Yes Code(s): E87.6 - HYPOKALEMIA (7) MRSA (methicillin resistant staphylococcus aureus) pneumonia Problems reviewed: Yes Code(s): J15.212 - PNEUMONIA DUE TO METHICILLIN RESISTANT STAPHYLOCOCCUS AUREUS Assessment/Plan See problem list Spoke to mother Mariana in the room. Mother agrees to PEG placement
[2020-01-25] MEDS: LORazepam 2 MG/ML SDV VIAL IVPUSH PRN (02:33)
[2020-01-25] MEDS ORDERED: PT OWN MED DRAWER 7, Y5N ONE ×3 (05:34→23:06)
[2020-01-25] MEDS: AMINO ACIDS/PROTEIN HYDROLYS 30 ML LIQUID.PKT NGT SCH (09:00)
--- NOTE | 2020-01-25 09:53 | PN ---
Physical Exam: SUBJECTIVE: Patient seen and examined. : as per nurse tolerating tube feeds, passing flatus. No fevers, chills, responds to yes or no questions OBJECTIVE: Vital Signs Temperature 98.8 F 01/25/20 06:00 Pulse Rate 75 01/25/20 08:30 Respiratory Rate 20 01/25/20 08:30 Blood Pressure 137/99 01/25/20 06:00 O2 Sat by Pulse Oximetry (%) 96 01/25/20 08:30 GENERAL: The patient is awake, alert, and fully oriented, in no acute distress. NECK: s/p trach, on vent, NGT in place for TFs ABDOMEN: Soft,distended, tympanic, TTP in RUQ, no guarding, no rebound, no hepatosplenomegaly, no masses. EXTREMITIES: 2+ pulses, warm, well-perfused, no edema. Laboratory Results - last 24 hr 01/24/20 11:00 Sodium 138 Potassium 3.7 Chloride 103 Carbon Dioxide 28 Anion Gap 7 L BUN 14.0 Creatinine 0.5 L Est GFR (CKD-EPI)AfAm 130.88 Est GFR (CKD-EPI)NonAf 112.92 Random Glucose 88 Calcium 8.7 Magnesium 2.1 Active Medications Generic Name Dose Route Start Last Admin Trade Name Freq PRN Reason Stop Dose Admin Acetaminophen 650 mg 01/24/20 17:28 Tylenol Oral Solution - PO Q4H PRN PAIN Amino Acids 30 ml 01/12/20 08:00 01/24/20 11:46 Prosource No Carb Liquid Pkt NGT 30 ml DAILY@0800 [facility] Administration Apixaban 5 mg 01/12/20 11:30 01/24/20 21:35 Eliquis - NGT 5 mg BID [facility] Administration Ascorbic Acid 1,000 mg 01/12/20 11:30 01/24/20 11:47 Vitamin C Oral Solution - NGT 1,000 mg DAILY [facility] Administration Chlorhexidine Gluconate 15 ml 01/12/20 10:00 01/24/20 21:38 Peridex - MM 15 ml BID [facility] Administration Escitalopram Oxalate 10 mg 01/25/20 10:00 Lexapro Oral Solution - GT DAILY [facility] Famotidine 20 mg 01/25/20 10:00 Pepcid PEG DAILY [facility] Vancomycin HCl 1,000 mg in 250 mls @ 250 mls/hr 01/14/20 22:00 01/24/20 21:36 Vancomycin (Pre-Docked) IVPB 250 mls/hr BID [facility] Administration Protocol Lorazepam 0.5 mg 01/23/20 12:29 01/25/20 02:33 Ativan Injection - IVPUSH 0.5 mg BID PRN Administration ANXIETY Metoprolol Tartrate 25 mg 01/12/20 11:26 01/24/20 21:36 Lopressor - NGT 25 mg BID [facility] Administration Multivitamins/Minerals 15 ml 01/12/20 11:32 01/24/20 11:47 Certavite-Antioxidant Liquid NGT 15 ml DAILY [facility] Administration ASSESSMENT/PLAN: 64yoM with multiple medical conditions admitted with CHF exacerbation with complicated hospital course requiring intubation, trach. General surgery consult for partial SBO vs. ileus. Pt now passing flatus. PNA: blood cultures neg, ID following, on Vanc trach, wean off vent as tolerated monitor abd exam Continue TFs as tolerated; consult for PEG; speech eval GI consult rest of care as per medicine monitor electrolytes on eliquis for A fib d/w Dr. Gonzalez <Dino Dumont - Last Filed: 01/25/20 10:14> Physical Exam: ASSESSMENT/PLAN: Attending Surgeon: I personally saw and examined the patient. My examination reveals a patient with bowel obstruction. I discussed the case with the surgical PA and agree with their findings and plan of care with any exceptions as noted. ~ Олег Gonzalez MD, FACS <Олег Gonzalez - Last Filed: 02/01/20 11:21>
--- NOTE | 2020-01-25 10:03 | PN ---
Progress Note, Physician History of Present Illness: pulmonary lethagic on vent support,ac mode - Current Medication List Current Medications: Active Medications Acetaminophen (Tylenol Oral Solution -) 650 mg PO Q4H PRN PRN Reason: PAIN Amino Acids (Prosource No Carb Liquid Pkt) 30 ml NGT DAILY@0800 [facility] Last Admin: 01/24/20 11:46 Dose: 30 ml Documented by: Apixaban (Eliquis -) 5 mg NGT BID [facility] Last Admin: 01/24/20 21:35 Dose: 5 mg Documented by: Ascorbic Acid (Vitamin C Oral Solution -) 1,000 mg NGT DAILY [facility] Last Admin: 01/24/20 11:47 Dose: 1,000 mg Documented by: Chlorhexidine Gluconate (Peridex -) 15 ml MM BID [facility] Last Admin: 01/24/20 21:38 Dose: 15 ml Documented by: Escitalopram Oxalate (Lexapro Oral Solution -) 10 mg GT DAILY [facility] Famotidine (Pepcid) 20 mg PEG DAILY [facility] Vancomycin HCl (Vancomycin (Pre-Docked)) 1,000 mg in 250 mls @ 250 mls/hr IVPB BID [facility]; Protocol Last Admin: 01/24/20 21:36 Dose: 250 mls/hr Documented by: Lorazepam (Ativan Injection -) 0.5 mg IVPUSH BID PRN PRN Reason: ANXIETY Last Admin: 01/25/20 02:33 Dose: 0.5 mg Documented by: Metoprolol Tartrate (Lopressor -) 25 mg NGT BID [facility] Last Admin: 01/24/20 21:36 Dose: 25 mg Documented by: Multivitamins/Minerals (Certavite-Antioxidant Liquid) 15 ml NGT DAILY [facility] Last Admin: 01/24/20 11:47 Dose: 15 ml Documented by: - Objective Vital Signs: Vital Signs Temperature 98.8 F 01/25/20 06:00 Pulse Rate 75 01/25/20 08:30 Respiratory Rate 20 01/25/20 08:30 Blood Pressure 137/99 01/25/20 06:00 O2 Sat by Pulse Oximetry (%) 96 01/25/20 08:30 Constitutional: Yes: Well Nourished, Other (lethargic) Eyes: Yes: WNL HENT: Yes: WNL Neck: Yes: WNL Cardiovascular: Yes: Regular Rate and Rhythm, S1, S2 Respiratory: Yes: Rhonchi (few rhonchi) Gastrointestinal: Yes: Normal Bowel Sounds, Soft Extremities: Yes: WNL Edema: Yes Labs: CBC, BMP 01/21/20 07:55 Assessment/Plan ASSESSMENT AND PLAN: Acute on Chronic Hypoxic and Hypercapneic Respiratory Failure Pneumonia ARDS improved S/P Septic Shock Acute on Chronic Diastolic Heart Failure Pulmonary HTN Paroxysmal Atrial Fibrillation CAD Acute Kidney Injury Likely COPD JUANA/OHS HTN Hypercholesterolemia - - rate control - anticoagulation - spontaneous breathing trials as tolerated - monitor urine output, creatinine - enteral feeds - DVT/GI prophylaxis - pmv as tolerated - hold sedation DR MELTON
[2020-01-25] MEDS: ESCITALOPRAM OXALATE 5 MG/5 ML GT SCH (10:28)
[2020-01-25] MEDS: APIXABAN 5 MG TABLET NGT SCH ×2 (10:29→23:23)
[2020-01-25] MEDS: MULTIVIT-MINERALS ORAL LIQUID NGT SCH (10:29)
[2020-01-25] MEDS: FAMOTIDINE 40 MG/5 ML ORAL SUSPENSION PEG SCH (10:29)
[2020-01-25] MEDS: METOPROLOL TARTRATE 25 MG TABLET (FP) NGT SCH ×2 (10:29→23:22)
[2020-01-25] MEDS: ASCORBIC ACID 500 MG/5 ML UNIT DOSE CUP NGT SCH (10:29)
[2020-01-25] MEDS: VANCOMYCIN 1 GRAM (PRE-DOCKED) 1,000 MG/250 ML BAG IVPB SCH ×2 (10:30→23:23)
[2020-01-25] MEDS: CHLORHEXIDINE GLUCONATE 0.12% 15ML CUP MM SCH ×2 (10:30→23:22)
--- NOTE | 2020-01-25 11:13 | PN ---
Progress Note, Physician History of Present Illness: 64 year old male with a past medical history of HTN, HLD, JUANA (not using CPAP), COPD, GERD, systolic congestive heart failure, paroxysmal atrial fibrillation (on Eliquis, s/p cardioversion 11/2016) who presented with 3 weeks of gradual onset anasarca, scrotal swelling and mild shortness of breath worse on exertion. CXR s/f diffused bilat opacities with c/f PNA +/-fluid overload, ?bilateral lower extremity cellulitis and bilateral hydrocele, and respiratory acidosis is admitted for Acute hypercapneic respiratory failure and Acute CHF exacerbation, intubated for progressive hypercarbic respiratory failure, decreased mental status on BiPAP. 01/11/2020 s/p percutaneous tracheostomy, awake off sedation. Vented on volume assist control with 40% FiO2, PEEP 5. Placed on CPAP/PS. 01/12/2020 Off sedation on vent 01/12: no acute cardiac events; had elevated temp 01/13: No significant change01/14: No cardiac events 01/15: Vented, awake. Currently on SIMV RR 8 PS 10. Abd slightly distended 01/16: Vented awake on SIMV RR 8 PS 10. No fevers. 01/17: Ileus noted on abd/pelvic CT, interactive on vent 01/18: Small BM, NGT inserted 01/22: Improving AXR, patient remains on a ventilator via tracheostomy, awake and alert in no distress 01/24: Vent wean on trach, awake tolerating enteral feeds, ileus resolving - Current Medication List Current Medications: Active Medications Acetaminophen (Tylenol Oral Solution -) 650 mg PO Q4H PRN PRN Reason: PAIN Amino Acids (Prosource No Carb Liquid Pkt) 30 ml NGT DAILY@0800 [facility] Last Admin: 01/25/20 09:00 Dose: 30 ml Documented by: Apixaban (Eliquis -) 5 mg NGT BID [facility] Last Admin: 01/25/20 10:29 Dose: 5 mg Documented by: Ascorbic Acid (Vitamin C Oral Solution -) 1,000 mg NGT DAILY [facility] Last Admin: 01/25/20 10:29 Dose: 1,000 mg Documented by: Chlorhexidine Gluconate (Peridex -) 15 ml MM BID [facility] Last Admin: 01/25/20 10:30 Dose: 15 ml Documented by: Escitalopram Oxalate (Lexapro Oral Solution -) 10 mg GT DAILY [facility] Last Admin: 01/25/20 10:28 Dose: 10 mg Documented by: Famotidine (Pepcid) 20 mg PEG DAILY [facility] Last Admin: 01/25/20 10:29 Dose: 20 mg Documented by: Vancomycin HCl (Vancomycin (Pre-Docked)) 1,000 mg in 250 mls @ 250 mls/hr IVPB BID [facility]; Protocol Last Admin: 01/25/20 10:30 Dose: 250 mls/hr Documented by: Lorazepam (Ativan Injection -) 0.5 mg IVPUSH BID PRN PRN Reason: ANXIETY Last Admin: 01/25/20 02:33 Dose: 0.5 mg Documented by: Metoprolol Tartrate (Lopressor -) 25 mg NGT BID [facility] Last Admin: 01/25/20 10:29 Dose: 25 mg Documented by: Multivitamins/Minerals (Certavite-Antioxidant Liquid) 15 ml NGT DAILY [facility] Last Admin: 01/25/20 10:29 Dose: 15 ml Documented by: - Objective Vital Signs: Vital Signs Temperature 99 F 01/25/20 10:00 Pulse Rate 82 01/25/20 10:00 Respiratory Rate 20 01/25/20 10:00 Blood Pressure 132/72 01/25/20 10:00 O2 Sat by Pulse Oximetry (%) 97 01/25/20 10:00 Constitutional: Yes: No Distress, Calm Neck: Yes: Other (Tracheostomy) Cardiovascular: Yes: Regular Rate and Rhythm Respiratory: Yes: Mechanically Ventilated, Rhonchi Gastrointestinal: Yes: Normal Bowel Sounds, Soft, Abdomen, Obese Genitourinary: Yes: Hilario Present Edema: No Labs: CBC, BMP 01/21/20 07:55 01/24/20 11:00 INR, PTT INR 1.23 (0.83-1.09) H 01/10/20 13:50 Problem List - Problems (1) Congestive heart failure (CHF) Code(s): I50.9 - HEART FAILURE, UNSPECIFIED Qualifiers: Heart failure type: diastolic Heart failure chronicity: acute on chronic Qualified Code(s): I50.33 - Acute on chronic diastolic (congestive) heart failu re (2) Pneumonia Code(s): J18.9 - PNEUMONIA, UNSPECIFIED ORGANISM Qualifiers: Pneumonia type: due to unspecified organism Laterality: right Lung location: lower lobe of lung Qualified Code(s): J18.9 - Pneumonia, unspecified organism (3) Acute on chronic diastolic (congestive) heart failure Code(s): I50.33 - ACUTE ON CHRONIC DIASTOLIC (CONGESTIVE) HEART FAILURE (4) Acute respiratory failure with hypoxia and hypercarbia Code(s): J96.01 - ACUTE RESPIRATORY FAILURE WITH HYPOXIA; J96.02 - ACUTE RESPIRATORY FAILURE WITH HYPERCAPNIA (5) Atrial fibrillation Code(s): I48.91 - UNSPECIFIED ATRIAL FIBRILLATION Qualifiers: Atrial fibrillation type: paroxysmal Qualified Code(s): I48.0 - Paroxysmal atrial fibrillation (6) COPD (chronic obstructive pulmonary disease) Code(s): J44.9 - CHRONIC OBSTRUCTIVE PULMONARY DISEASE, UNSPECIFIED Qualifiers: COPD type: unspecified COPD Qualified Code(s): J44.9 - Chronic obstructive pulmonary disease, unspecified (7) Hypertension Code(s): I10 - ESSENTIAL (PRIMARY) HYPERTENSION Qualifiers: Hypertension type: essential hypertension Qualified Code(s): I10 - Essential (primary) hypertension (8) Pleural effusion Code(s): J90 - PLEURAL EFFUSION, NOT ELSEWHERE CLASSIFIED Assessment/Plan 10/26/2017 Normal LV size with mild LVH, normal LV fxn, normal RV size and fxn, mild LAE, mild MR, mild-mod TR, mild MD, RVSP 43 mmHg 11/19/2016 Lexiscan Myoview: Apical ischemia, LVEF 45-52% 10/06/2016 Echocardiography revealed mild to moderate LV systolic dysfunction, moderate TR, RVSP of 30-40 mmHg 1. Acute on chronic Hypoxic and Hypercapneic Respiratory Failure with tracheostomy 2. Acute on chronic LV Diastolic Heart Failure with pleural effusion 3. Pneumonia, ARDS (septic shock) resolved 4. Paroxysmal atrial fibrillation with periods of rapid ventricular response post DCCV, [id number] score of 2 5. Obstructive Sleep Apnea/Obesity 6. HTN/HCVD 7. Hypercholesterolemia 8. CAD, angina pectoris 9. Bilateral cellulitis with h/o abscess s/p debridement 10. Bilateral hydrocele 11. Improving Ileus due to underlying co morbid conditions PLAN: 1. Vent support via tracheostomy, wean FIO2 and PEEP to maintain saO2>90%, PMV as tolerated 2. DVT and GI prophylaxis and enteral feeds resumed 3. Diuretics held with monitor renal function and electrolytes 4. Continue Lopressor 25 mg BID and Eliquis 5 mg BID (via NGT) 5. GI and surgery inputs appreciated
--- NOTE | 2020-01-25 11:43 | PN ---
Progress Note, Physician Chief Complaint: Acute on Chronic Hypoxic and Hypercapneic Respiratory Failure s/p Tracheostomy Pneumonia ARDS Septic Shock Acute on Chronic Diastolic Heart Failure Pulmonary HTN Paroxysmal Atrial Fibrillation CAD Acute Kidney Injury COPD JUANA/OHS SBO History of Present Illness: NAD, alert and oriented, sleepy On IV Vanco day #11, to complete 14 days in total - Current Medication List Current Medications: Active Medications Acetaminophen (Tylenol Oral Solution -) 650 mg PO Q4H PRN PRN Reason: PAIN Amino Acids (Prosource No Carb Liquid Pkt) 30 ml NGT DAILY@0800 [facility] Last Admin: 01/25/20 09:00 Dose: 30 ml Documented by: Apixaban (Eliquis -) 5 mg NGT BID [facility] Last Admin: 01/25/20 10:29 Dose: 5 mg Documented by: Ascorbic Acid (Vitamin C Oral Solution -) 1,000 mg NGT DAILY [facility] Last Admin: 01/25/20 10:29 Dose: 1,000 mg Documented by: Chlorhexidine Gluconate (Peridex -) 15 ml MM BID [facility] Last Admin: 01/25/20 10:30 Dose: 15 ml Documented by: Escitalopram Oxalate (Lexapro Oral Solution -) 10 mg GT DAILY [facility] Last Admin: 01/25/20 10:28 Dose: 10 mg Documented by: Famotidine (Pepcid) 20 mg PEG DAILY [facility] Last Admin: 01/25/20 10:29 Dose: 20 mg Documented by: Vancomycin HCl (Vancomycin (Pre-Docked)) 1,000 mg in 250 mls @ 250 mls/hr IVPB BID [facility]; Protocol Last Admin: 01/25/20 10:30 Dose: 250 mls/hr Documented by: Lorazepam (Ativan Injection -) 0.5 mg IVPUSH BID PRN PRN Reason: ANXIETY Last Admin: 01/25/20 02:33 Dose: 0.5 mg Documented by: Metoprolol Tartrate (Lopressor -) 25 mg NGT BID [facility] Last Admin: 01/25/20 10:29 Dose: 25 mg Documented by: Multivitamins/Minerals (Certavite-Antioxidant Liquid) 15 ml NGT DAILY [facility] Last Admin: 01/25/20 10:29 Dose: 15 ml Documented by: - Objective Vital Signs: Vital Signs Temperature 99 F 01/25/20 10:00 Pulse Rate 79 01/25/20 11:23 Respiratory Rate 20 07/22/20 11:23 Blood Pressure 132/72 01/25/20 10:00 O2 Sat by Pulse Oximetry (%) 97 01/25/20 11:23 Constitutional: Yes: Well Nourished, No Distress, Calm, Obese Cardiovascular: Yes: Regular Rate and Rhythm Respiratory: Yes: Regular, Mechanically Ventilated, Rales (diffuse) Gastrointestinal: Yes: Normal Bowel Sounds, Soft Genitourinary: Yes: Incontinence Musculoskeletal: Yes: Muscle Weakness Edema: No Peripheral Pulses WNL: Yes Neurological: Yes: Alert, Oriented Psychiatric: Yes: Alert, Oriented Labs: CBC, BMP 01/21/20 07:55 01/24/20 11:00 INR, PTT INR 1.23 (0.83-1.09) H 01/10/20 13:50 Problem List - Problems (1) SBO (small bowel obstruction) Assessment/Plan: -Resolved -Tolerating TF well -GI and surgery consult appreciated Problems reviewed: Yes Code(s): K56.609 - UNSP INTESTNL OBST, UNSP TO PARTIAL VERSUS COMPLETE OBST (2) Morbid obesity Problems reviewed: Yes Code(s): E66.01 - MORBID (SEVERE) OBESITY DUE TO EXCESS CALORIES (3) Pneumonia Assessment/Plan: -SC:MRSA -On IV Vanco day 11, to complete 14 days in total -ID on board -Afebrile Problems reviewed: Yes Code(s): J18.9 - PNEUMONIA, UNSPECIFIED ORGANISM Qualifiers: Pneumonia type: due to unspecified organism Laterality: right Lung location: lower lobe of lung Qualified Code(s): J18.9 - Pneumonia, unspecified organism (4) Atrial fibrillation Assessment/Plan: -Chronic, rate controlled -Continue eliquis 5 mg GT BID Problems reviewed: Yes Code(s): I48.91 - UNSPECIFIED ATRIAL FIBRILLATION Qualifiers: Atrial fibrillation type: paroxysmal Qualified Code(s): I48.0 - Paroxysmal atrial fibrillation (5) Respiratory failure with hypoxia and hypercapnia Assessment/Plan: -Pulmonary on board -S/P trach -Mech vent -Wean as tolerated-CPAP tolerated today -LTAC placement upon discharge -Trial of Rohini pollack today with speech therapy -Spoke to Corrina Bauer- friend of Mariana (mother)-as per mother's request, to explain the need for PEG for now and continuing rehab thereafter. Corrina will speak to Mariana, contact number provided to reach me with any questions and the decision -Possible trial of MBS in AM if tolerates PMV today Problems reviewed: Yes Code(s): J96.91 - RESPIRATORY FAILURE, UNSPECIFIED WITH HYPOXIA; J96.92 - RESPIRATORY FAILURE, UNSPECIFIED WITH HYPERCAPNIA Qualifiers: Chronicity: acute on chronic Qualified Code(s): J96.21 - Acute and chronic respiratory failure with hypoxia; J96.22 - Acute and chronic respiratory failure with hypercapnia (6) Hypokalemia Assessment/Plan: -Resolved -Nephrology on board -Monitor trend Problems reviewed: Yes Code(s): E87.6 - HYPOKALEMIA (7) MRSA (methicillin resistant staphylococcus aureus) pneumonia Problems reviewed: Yes Code(s): J15.212 - PNEUMONIA DUE TO METHICILLIN RESISTANT STAPHYLOCOCCUS AUREUS (8) Anxiety Assessment/Plan: -Trial of SSRI-lexapro 10 mg GT daily -Add Buspirone 5 mg GT BID PRN for breakthrough -D/C Ativan PRN- making pt too lethargic Problems reviewed: Yes Code(s): F41.9 - ANXIETY DISORDER, UNSPECIFIED Assessment/Plan See problem list
--- NOTE | 2020-01-25 11:53 | PN ---
Progress Note, Physician History of Present Illness: Pt seen and examined at bedside. He is tolerating feeds. He remains on vent. - Current Medication List Current Medications: Active Medications Acetaminophen (Tylenol Oral Solution -) 650 mg PO Q4H PRN PRN Reason: PAIN Amino Acids (Prosource No Carb Liquid Pkt) 30 ml NGT DAILY@0800 [facility] Last Admin: 01/25/20 09:00 Dose: 30 ml Documented by: Apixaban (Eliquis -) 5 mg NGT BID [facility] Last Admin: 01/25/20 10:29 Dose: 5 mg Documented by: Ascorbic Acid (Vitamin C Oral Solution -) 1,000 mg NGT DAILY [facility] Last Admin: 01/25/20 10:29 Dose: 1,000 mg Documented by: Chlorhexidine Gluconate (Peridex -) 15 ml MM BID [facility] Last Admin: 01/25/20 10:30 Dose: 15 ml Documented by: Escitalopram Oxalate (Lexapro Oral Solution -) 10 mg GT DAILY [facility] Last Admin: 01/25/20 10:28 Dose: 10 mg Documented by: Famotidine (Pepcid) 20 mg PEG DAILY [facility] Last Admin: 01/25/20 10:29 Dose: 20 mg Documented by: Vancomycin HCl (Vancomycin (Pre-Docked)) 1,000 mg in 250 mls @ 250 mls/hr IVPB BID [facility]; Protocol Last Admin: 01/25/20 10:30 Dose: 250 mls/hr Documented by: Metoprolol Tartrate (Lopressor -) 25 mg NGT BID [facility] Last Admin: 01/25/20 10:29 Dose: 25 mg Documented by: Multivitamins/Minerals (Certavite-Antioxidant Liquid) 15 ml NGT DAILY [facility] Last Admin: 01/25/20 10:29 Dose: 15 ml Documented by: - Objective Vital Signs: Vital Signs Temperature 99 F 01/25/20 10:00 Pulse Rate 79 01/25/20 11:23 Respiratory Rate 20 01/25/20 11:23 Blood Pressure 132/72 01/25/20 10:00 O2 Sat by Pulse Oximetry (%) 97 01/25/20 11:23 Constitutional: Yes: Calm Eyes: Yes: Conjunctiva Clear HENT: Yes: Atraumatic Neck: Yes: Supple Cardiovascular: Yes: S1, S2 Respiratory: Yes: Mechanically Ventilated Gastrointestinal: Yes: Soft, Abdomen, Obese Genitourinary: Yes: Hilario Present Edema: Yes Edema: LLE: Trace, RLE: Trace Integumentary: Yes: Venous Stasis Changes Neurological: Yes: Oriented Labs: CBC, BMP 01/21/20 07:55 01/24/20 11:00 INR, PTT INR 1.23 (0.83-1.09) H 01/10/20 13:50 Problem List - Problems (1) Anasarca Code(s): R60.1 - GENERALIZED EDEMA (2) Congestive heart failure (CHF) Code(s): I50.9 - HEART FAILURE, UNSPECIFIED Qualifiers: Qualified Code(s): I50.33 - Acute on chronic diastolic (congestive) heart failure (3) Acute kidney injury Code(s): N17.9 - ACUTE KIDNEY FAILURE, UNSPECIFIED Assessment/Plan Current Medications Generic Name Dose Route Start Last Admin Trade Name Freq PRN Reason Stop Dose Admin Acetaminophen 650 mg 01/24/20 17:28 Tylenol Oral Solution - PO Q4H PRN PAIN Amino Acids 30 ml 01/12/20 08:00 01/25/20 09:00 Prosource No Carb Liquid Pkt NGT 30 ml DAILY@0800 [facility] Administration Apixaban 5 mg 01/12/20 11:30 01/25/20 10:29 Eliquis - NGT 5 mg BID [facility] Administration Ascorbic Acid 1,000 mg 01/12/20 11:30 01/25/20 10:29 Vitamin C Oral Solution - NGT 1,000 mg DAILY [facility] Administration Chlorhexidine Gluconate 15 ml 01/12/20 10:00 01/25/20 10:30 Peridex - MM 15 ml BID [facility] Administration Escitalopram Oxalate 10 mg 01/25/20 10:00 01/25/20 10:28 Lexapro Oral Solution - GT 10 mg DAILY [facility] Administration Famotidine 20 mg 01/25/20 10:00 01/25/20 10:29 Pepcid PEG 20 mg DAILY [facility] Administration Vancomycin HCl 1,000 mg in 250 mls @ 250 mls/hr 01/14/20 22:00 01/25/20 10:30 Vancomycin (Pre-Docked) IVPB 250 mls/hr BID [facility] Administration Protocol Metoprolol Tartrate 25 mg 01/12/20 11:26 01/25/20 10:29 Lopressor - NGT 25 mg BID [facility] Administration Multivitamins/Minerals 15 ml 01/12/20 11:32 01/25/20 10:29 Certavite-Antioxidant Liquid NGT 15 ml DAILY [facility] Administration Impression 1. MONIE 2. CHF acute 3. acute resp failure requiring intubation 4. atrial fibrillation 5. hx of htn 6. obesity 7. chronic smoker 8. hypokalemia 9. partial sbo Plan - pt tolerating feeds - d/c clinimix - repeat labs in am - lasix prn, will evaluate tomorrow - cont vent support
--- NOTE | 2020-01-25 11:54 | PN ---
Progress Note, Physician History of Present Illness: awake alert on vent s/p trach - Current Medication List Current Medications: Active Medications Acetaminophen (Tylenol Oral Solution -) 650 mg PO Q4H PRN PRN Reason: PAIN Amino Acids (Prosource No Carb Liquid Pkt) 30 ml NGT DAILY@0800 [facility] Last Admin: 01/25/20 09:00 Dose: 30 ml Documented by: Apixaban (Eliquis -) 5 mg NGT BID [facility] Last Admin: 01/25/20 10:29 Dose: 5 mg Documented by: Ascorbic Acid (Vitamin C Oral Solution -) 1,000 mg NGT DAILY [facility] Last Admin: 01/25/20 10:29 Dose: 1,000 mg Documented by: Chlorhexidine Gluconate (Peridex -) 15 ml MM BID [facility] Last Admin: 01/25/20 10:30 Dose: 15 ml Documented by: Escitalopram Oxalate (Lexapro Oral Solution -) 10 mg GT DAILY [facility] Last Admin: 01/25/20 10:28 Dose: 10 mg Documented by: Famotidine (Pepcid) 20 mg PEG DAILY [facility] Last Admin: 01/25/20 10:29 Dose: 20 mg Documented by: Vancomycin HCl (Vancomycin (Pre-Docked)) 1,000 mg in 250 mls @ 250 mls/hr IVPB BID [facility]; Protocol Last Admin: 01/25/20 10:30 Dose: 250 mls/hr Documented by: Metoprolol Tartrate (Lopressor -) 25 mg NGT BID [facility] Last Admin: 01/25/20 10:29 Dose: 25 mg Documented by: Multivitamins/Minerals (Certavite-Antioxidant Liquid) 15 ml NGT DAILY [facility] Last Admin: 01/25/20 10:29 Dose: 15 ml Documented by: - Objective Vital Signs: Vital Signs Temperature 99 F 01/25/20 10:00 Pulse Rate 79 01/25/20 11:23 Respiratory Rate 20 01/25/20 11:23 Blood Pressure 132/72 01/25/20 10:00 O2 Sat by Pulse Oximetry (%) 97 01/25/20 11:23 Constitutional: Yes: No Distress, Calm Cardiovascular: Yes: S1, S2 Respiratory: Yes: Regular, CTA Bilaterally Gastrointestinal: Yes: Normal Bowel Sounds, Soft Genitourinary: Yes: WNL Musculoskeletal: Yes: WNL Extremities: Yes: Other Neurological: Yes: Alert, Oriented Psychiatric: Yes: Alert, Oriented Labs: CBC, BMP 01/21/20 07:55 01/24/20 11:00 INR, PTT INR 1.23 (0.83-1.09) H 01/10/20 13:50 Assessment/Plan Problem List - Problems (1) Edema of scrotum Code(s): N50.89 - OTHER SPECIFIED DISORDERS OF THE MALE GENITAL ORGANS (2) Morbid obesity Code(s): E66.01 - MORBID (SEVERE) OBESITY DUE TO EXCESS CALORIES (3) Acute on chronic diastolic (congestive) heart failure Code(s): I50.33 - ACUTE ON CHRONIC DIASTOLIC (CONGESTIVE) HEART FAILURE (4) Acute respiratory failure requiring reintubation Code(s): J96.00 - ACUTE RESPIRATORY FAILURE, UNSP W HYPOXIA OR HYPERCAPNIA (5) Afib Code(s): I48.91 - UNSPECIFIED ATRIAL FIBRILLATION Qualifiers: Atrial fibrillation type: paroxysmal Qualified Code(s): I48.0 - Paroxysmal atrial fibrillation Assessment/Plan Acute respiratory failure s/p trach on MV PNA Ileus/ pseudoobstruction CHF b/l LE Cellulitis b/l Hydrocele MONIE Paroxysmal AFIB COPD JUANA CAD HTN HLD -- no new events, afebrile today -- continue Vancomycin (to complete total 2 wks), monitor renal function- stable -- Surgery following -- continue monitor vitals monitor vanco levels
--- NOTE | 2020-01-25 14:47 | CONSULT ---
Passy-Kaden Valve Eval - Assessment Prior to PMV Placement Patient and/or family educated re PMV: Yes Mental Status: Awake, Alert, Attempting to Communicate O2 Sat by Pulse Oximetry (%): 97 Secretions: Small Amount Patient on Ventilator: Yes Patient on Trach Collar: No Suctioned: Yes Trach Size: 8.0 Inner Cannula Removed: No Cuff Status: Inflated Passy-Kaden Valve in Place - Speech Characteristics Able to Phonate with PMV in place: Yes Voice Loudness: Normal Voice Pitch: Normal Voice Phonatory-based Quality: Normal Speech Pattern: Normal Speech Clarity: < 100% Nasal Resonance: Normal Articulation: Precise - Assessment with PMV in Place O2 Sat by Pulse Oximetry (%): 97 Change in Mental Status with PMV in Place: No Able to Manage Secretions: Yes Length of time with PMV in place: 20 min - Recommendations Recommendations: PMV as tolerated, Remove PMV while sleeping, Monitor Pulse Ox PMV on, Supervision while PMV on, Other (hold TF while using pmv.)
--- NOTE | 2020-01-25 14:50 | PN ---
Progress Note, REHABILITATION PSYCHOLOGIST - Note Progress Note: Selected Entries 01/25/20 01/25/20 01/25/20 02:00 04:10 06:00 Temperature 98.2 F 98.8 F Pulse Rate 88 77 82 01/25/20 01/25/20 01/25/20 08:30 10:00 11:23 Temperature 99 F Pulse Rate 75 82 79 PMV assessment completed with good tolerance and vocalization. Impaired insight but oriented. Swallowing assessed with delayed but strong swallow. Suggest MBS to initiate po trials once r/o aspiration. PMV daily, as tolerated, increasing time on valve, to improve upper airway function, communication ,swallowing and to expedite weaning from ventilator.
[2020-01-25] MEDS: traZODone HCL 50 MG TABLET (FP) NGT SCH (23:22)
[2020-01-25] MEDS: busPIRone HCL 5 MG TABLET GT SCH (23:22)
--- NOTE | 2020-01-26 08:53 | PN ---
Progress Note (short form) - Note Progress Note: Patient seen and examined. Denies abo pain, states he wants to eat (mouthing words), tolerating tube feeds, passing flatus. No bm, denies n/v/d. Vital Signs Temp 98.2 F 01/26/20 06:00 Pulse 84 01/26/20 06:00 Resp 22 H 01/26/20 06:00 BP 136/84 01/26/20 06:00 Pulse Ox 98 01/26/20 06:00 Intake & Output 01/25/20 01/25/20 01/26/20 11:59 23:59 11:59 Intake Total 700 1240 1330 Balance 700 1240 1330 Weight 217 lb 215 lb 1.6 oz Intake: IVPB 250 250 Tube Feeding 300 605 660 Tube Irrigant 400 385 420 Other: Voiding Method Incontinent Incontinent Incontinent # Unmeasured Voids Void 2 2 2 Bowel Movement No No Weight Measurement Method Built in Bedscale Built in Bedscale GENERAL: awake, alert, and fully oriented, in no acute distress. NECK: s/p trach, on vent, NGT in place with 200ml bilious drainage in reservoir (not documented over what period of time) ABDOMEN: Soft,distended, tympanic, TTP in RUQ, no guarding, no rebound 64 y/o M w/ HTN, HLD, JUANA (not using CPAP), COPD, GERD, systolic congestive heart failure, paroxysmal atrial fibrillation (on Eliquis, s/p cardioversion 11/2016) a/w CHF exacerbation with complicated hospital course requiring intubation, trach. General surgery consulted for partial SBO vs. ileus. afebrile, vss labs noted axr reviewed -hold feeds, npo, ivf -serial abdo exams -axr in AM -remainder of care per primary team d/w attending Dr Gonzalez <Alex Gallo - Last Filed: 01/26/20 15:12> - Note Progress Note: Attending Surgeon: I personally saw and examined the patient. My examination reveals a patient with a small bowel obstruction. I discussed the case with the surgical PA and agree with their findings and plan of care with any exceptions as noted. ~ Олег Gonzalez MD, FACS <Олег Gonzalez - Last Filed: 01/30/20 09:08>
[2020-01-26 08:57] LABS: HEMATOCRIT 36.1 % (35.4-49); HEMOGLOBIN 11.1 GM/dL (11.7-16.9); MCH 25.5 pg (25.7-33.7); MCHC 30.6 g/dl (32.0-35.9); MEAN CELL VOLUME 83.2 fl (80-96); MEAN PLT VOLUME 8.8 fl (7.5-11.1); PLATELET COUNT 155 K/MM3 (134-434); RBC 4.34 M/mm3 (4.00-5.60); RDW 24.2 % (11.9-15.9); WHITE BLOOD COUNT 5.9 K/mm3 (4.0-10.0)
[2020-01-26] MEDS: AMINO ACIDS/PROTEIN HYDROLYS 30 ML LIQUID.PKT NGT SCH (09:00)
[2020-01-26 09:29] LABS: ALBUMIN 2.4 g/dl (3.4-5.0); BILIRUBIN,TOTAL 1.6 mg/dL (0.2-1); BLOOD UREA NITROGEN 13.7 mg/dL (7-18); CALCIUM 8.3 mg/dL (8.5-10.1); CREATININE 0.6 mg/dL (0.55-1.3); MAGNESIUM 1.9 mg/dL (1.8-2.4); POTASSIUM 3.6 mmol/L (3.5-5.1); TOT PROT 5.7 g/dl (6.4-8.2)
[2020-01-26 10:12] LABS: ANISOCYTOSIS 1+; MACROCYTOSIS 0; PLATELET ESTIMATE DECREASED
--- NOTE | 2020-01-26 10:17 | PN ---
Progress Note, Physician History of Present Illness: 64 year old male with a past medical history of HTN, HLD, JUANA (not using CPAP), COPD, GERD, systolic congestive heart failure, paroxysmal atrial fibrillation (on Eliquis, s/p cardioversion 11/2016) who presented with 3 weeks of gradual onset anasarca, scrotal swelling and mild shortness of breath worse on exertion. CXR s/f diffused bilat opacities with c/f PNA +/-fluid overload, ?bilateral lower extremity cellulitis and bilateral hydrocele, and respiratory acidosis is admitted for Acute hypercapneic respiratory failure and Acute CHF exacerbation, intubated for progressive hypercarbic respiratory failure, decreased mental status on BiPAP. 01/11/2020 s/p percutaneous tracheostomy, awake off sedation. Vented on volume assist control with 40% FiO2, PEEP 5. Placed on CPAP/PS. 01/12/2020 Off sedation on vent 01/12: no acute cardiac events; had elevated temp 01/13: No significant change01/14: No cardiac events 01/15: Vented, awake. Currently on SIMV RR 8 PS 10. Abd slightly distended 01/16: Vented awake on SIMV RR 8 PS 10. No fevers. 01/17: Ileus noted on abd/pelvic CT, interactive on vent 01/18: Small BM, NGT inserted 01/22: Improving AXR, patient remains on a ventilator via tracheostomy, awake and alert in no distress 01/24: Vent wean on trach, awake tolerating enteral feeds, ileus resolving 01/25: Vent wean on trach, no acute changes - Current Medication List Current Medications: Active Medications Acetaminophen (Tylenol Oral Solution -) 650 mg PO Q4H PRN PRN Reason: PAIN Amino Acids (Prosource No Carb Liquid Pkt) 30 ml NGT DAILY@0800 [facility] Last Admin: 01/25/20 09:00 Dose: 30 ml Documented by: Apixaban (Eliquis -) 5 mg NGT BID [facility] Last Admin: 01/25/20 23:23 Dose: 5 mg Documented by: Ascorbic Acid (Vitamin C Oral Solution -) 1,000 mg NGT DAILY [facility] Last Admin: 01/25/20 10:29 Dose: 1,000 mg Documented by: Buspirone HCl (Buspar -) 5 mg GT BID [facility] Last Admin: 01/25/20 23:22 Dose: 5 mg Documented by: Chlorhexidine Gluconate (Peridex -) 15 ml MM BID [facility] Last Admin: 01/25/20 23:22 Dose: 15 ml Documented by: Escitalopram Oxalate (Lexapro Oral Solution -) 10 mg GT DAILY [facility] Last Admin: 01/25/20 10:28 Dose: 10 mg Documented by: Famotidine (Pepcid) 20 mg PEG DAILY [facility] Last Admin: 01/25/20 10:29 Dose: 20 mg Documented by: Vancomycin HCl (Vancomycin (Pre-Docked)) 1,000 mg in 250 mls @ 250 mls/hr IVPB BID [facility]; Protocol Last Admin: 01/25/20 23:23 Dose: 250 mls/hr Documented by: Metoprolol Tartrate (Lopressor -) 25 mg NGT BID [facility] Last Admin: 01/25/20 23:22 Dose: 25 mg Documented by: Multivitamins/Minerals (Certavite-Antioxidant Liquid) 15 ml NGT DAILY [facility] Last Admin: 01/25/20 10:29 Dose: 15 ml Documented by: Trazodone HCl (Desyrel -) 50 mg NGT HS [facility] Last Admin: 01/25/20 23:22 Dose: 50 mg Documented by: - Objective Vital Signs: Vital Signs Temperature 98.2 F 01/26/20 06:00 Pulse Rate 84 01/26/20 06:00 Respiratory Rate 22 H 01/26/20 06:00 Blood Pressure 136/84 01/26/20 06:00 O2 Sat by Pulse Oximetry (%) 98 01/26/20 06:00 Constitutional: Yes: No Distress, Calm Neck: Yes: Other (Trach) Cardiovascular: Yes: Regular Rate and Rhythm Respiratory: Yes: Mechanically Ventilated, Rhonchi Gastrointestinal: Yes: Soft, Hypoactive Bowel Sounds Genitourinary: Yes: Hilario Present Edema: No Integumentary: Yes: Venous Stasis Changes Labs: CBC, BMP 01/26/20 08:15 01/26/20 08:15 INR, PTT INR 1.23 (0.83-1.09) H 01/10/20 13:50 Problem List - Problems (1) Congestive heart failure (CHF) Code(s): I50.9 - HEART FAILURE, UNSPECIFIED Qualifiers: Qualified Code(s): I50.33 - Acute on chronic diastolic (congestive) heart failure (2) Pneumonia Code(s): J18.9 - PNEUMONIA, UNSPECIFIED ORGANISM Qualifiers: Qualified Code(s): J18.9 - Pneumonia, unspecified organism (3) Acute on chronic diastolic (congestive) heart failure Code(s): I50.33 - ACUTE ON CHRONIC DIASTOLIC (CONGESTIVE) HEART FAILURE (4) Acute respiratory failure with hypoxia and hypercarbia Code(s): J96.01 - ACUTE RESPIRATORY FAILURE WITH HYPOXIA; J96.02 - ACUTE RESPIRATORY FAILURE WITH HYPERCAPNIA (5) Atrial fibrillation Code(s): I48.91 - UNSPECIFIED ATRIAL FIBRILLATION Qualifiers: Qualified Code(s): I48.0 - Paroxysmal atrial fibrillation (6) COPD (chronic obstructive pulmonary disease) Code(s): J44.9 - CHRONIC OBSTRUCTIVE PULMONARY DISEASE, UNSPECIFIED Qualifiers: Qualified Code(s): J44.9 - Chronic obstructive pulmonary disease, unspecified (7) Hypertension Code(s): I10 - ESSENTIAL (PRIMARY) HYPERTENSION Qualifiers: Qualified Code(s): I10 - Essential (primary) hypertension (8) Pleural effusion Code(s): J90 - PLEURAL EFFUSION, NOT ELSEWHERE CLASSIFIED Assessment/Plan 10/26/2017 Normal LV size with mild LVH, normal LV fxn, normal RV size and fxn, mild LAE, mild MR, mild-mod TR, mild CO, RVSP 43 mmHg 11/19/2016 Lexiscan Myoview: Apical ischemia, LVEF 45-52% 10/06/2016 Echocardiography revealed mild to moderate LV systolic dysfunction, moderate TR, RVSP of 30-40 mmHg 1. Acute on chronic Hypoxic and Hypercapneic Respiratory Failure with tracheostomy 2. Acute on chronic LV Diastolic Heart Failure with pleural effusion 3. Pneumonia, ARDS (septic shock) resolved 4. Paroxysmal atrial fibrillation with periods of rapid ventricular response post DCCV, [id number] score of 2 5. Obstructive Sleep Apnea/Obesity 6. HTN/HCVD 7. Hypercholesterolemia 8. CAD, angina pectoris 9. Bilateral cellulitis with h/o abscess s/p debridement 10. Bilateral hydrocele 11. Improving Ileus due to underlying co morbid conditions PLAN: 1. Vent support via tracheostomy, wean FIO2 and PEEP to maintain saO2>90%, PMV as tolerated 2. DVT and GI prophylaxis and enteral feeds resumed 3. Diuretics held with monitor renal function and electrolytes 4. Continue Lopressor 25 mg BID and Eliquis 5 mg BID (via NGT) 5. Complete vanco course
[2020-01-26] MEDS ORDERED: PT OWN MED DRAWER 7, Y5N ONE ×2 (10:21→21:35)
--- NOTE | 2020-01-26 10:29 | PN ---
Progress Note, Physician History of Present Illness: stable no new issues - Current Medication List Current Medications: Active Medications Acetaminophen (Tylenol Oral Solution -) 650 mg PO Q4H PRN PRN Reason: PAIN Amino Acids (Prosource No Carb Liquid Pkt) 30 ml NGT DAILY@0800 [facility] Last Admin: 01/25/20 09:00 Dose: 30 ml Documented by: Apixaban (Eliquis -) 5 mg NGT BID [facility] Last Admin: 01/25/20 23:23 Dose: 5 mg Documented by: Ascorbic Acid (Vitamin C Oral Solution -) 1,000 mg NGT DAILY [facility] Last Admin: 01/25/20 10:29 Dose: 1,000 mg Documented by: Buspirone HCl (Buspar -) 5 mg GT BID [facility] Last Admin: 01/25/20 23:22 Dose: 5 mg Documented by: Chlorhexidine Gluconate (Peridex -) 15 ml MM BID [facility] Last Admin: 01/25/20 23:22 Dose: 15 ml Documented by: Escitalopram Oxalate (Lexapro Oral Solution -) 10 mg GT DAILY [facility] Last Admin: 01/25/20 10:28 Dose: 10 mg Documented by: Famotidine (Pepcid) 20 mg PEG DAILY [facility] Last Admin: 01/25/20 10:29 Dose: 20 mg Documented by: Vancomycin HCl (Vancomycin (Pre-Docked)) 1,000 mg in 250 mls @ 250 mls/hr IVPB BID [facility]; Protocol Last Admin: 01/25/20 23:23 Dose: 250 mls/hr Documented by: Metoprolol Tartrate (Lopressor -) 25 mg NGT BID [facility] Last Admin: 01/25/20 23:22 Dose: 25 mg Documented by: Multivitamins/Minerals (Certavite-Antioxidant Liquid) 15 ml NGT DAILY [facility] Last Admin: 01/25/20 10:29 Dose: 15 ml Documented by: Trazodone HCl (Desyrel -) 50 mg NGT HS [facility] Last Admin: 01/25/20 23:22 Dose: 50 mg Documented by: - Objective Vital Signs: Vital Signs Temperature 98.2 F 01/26/20 06:00 Pulse Rate 84 01/26/20 06:00 Respiratory Rate 22 H 01/26/20 06:00 Blood Pressure 136/84 01/26/20 06:00 O2 Sat by Pulse Oximetry (%) 98 01/26/20 06:00 Constitutional: Yes: No Distress, Calm Cardiovascular: Yes: S1, S2 Respiratory: Yes: Regular, Other Gastrointestinal: Yes: Normal Bowel Sounds, Soft Musculoskeletal: Yes: WNL Extremities: Yes: Other Neurological: Yes: Alert Labs: CBC, BMP 01/26/20 08:15 01/26/20 08:15 INR, PTT INR 1.23 (0.83-1.09) H 01/10/20 13:50 Assessment/Plan Problem List - Problems (1) Edema of scrotum Code(s): N50.89 - OTHER SPECIFIED DISORDERS OF THE MALE GENITAL ORGANS (2) Morbid obesity Code(s): E66.01 - MORBID (SEVERE) OBESITY DUE TO EXCESS CALORIES (3) Acute on chronic diastolic (congestive) heart failure Code(s): I50.33 - ACUTE ON CHRONIC DIASTOLIC (CONGESTIVE) HEART FAILURE (4) Acute respiratory failure requiring reintubation Code(s): J96.00 - ACUTE RESPIRATORY FAILURE, UNSP W HYPOXIA OR HYPERCAPNIA (5) Afib Code(s): I48.91 - UNSPECIFIED ATRIAL FIBRILLATION Qualifiers: Atrial fibrillation type: paroxysmal Qualified Code(s): I48.0 - Paroxysmal atrial fibrillation Assessment/Plan Acute respiratory failure s/p trach on MV PNA Ileus/ pseudoobstruction CHF b/l LE Cellulitis b/l Hydrocele MONIE Paroxysmal AFIB COPD JUANA CAD HTN HLD abx resp support asp precautions rest as per the team will check vanco levels
[2020-01-26] MEDS: CHLORHEXIDINE GLUCONATE 0.12% 15ML CUP MM SCH ×3 (10:39→21:42)
[2020-01-26] MEDS: busPIRone HCL 5 MG TABLET GT SCH (10:39)
[2020-01-26] MEDS: ESCITALOPRAM OXALATE 5 MG/5 ML GT SCH (10:39)
[2020-01-26] MEDS: METOPROLOL TARTRATE 25 MG TABLET (FP) NGT SCH (10:39)
[2020-01-26] MEDS: MULTIVIT-MINERALS ORAL LIQUID NGT SCH (10:39)
[2020-01-26] MEDS: APIXABAN 5 MG TABLET NGT SCH (10:39)
[2020-01-26] MEDS: ASCORBIC ACID 500 MG/5 ML UNIT DOSE CUP NGT SCH (10:40)
[2020-01-26] MEDS: FAMOTIDINE 40 MG/5 ML ORAL SUSPENSION PEG SCH (10:40)
[2020-01-26] MEDS: VANCOMYCIN 1 GRAM (PRE-DOCKED) 1,000 MG/250 ML BAG IVPB SCH ×2 (10:44→23:18)
--- NOTE | 2020-01-26 11:47 | PN ---
Progress Note, Physician Chief Complaint: Acute on Chronic Hypoxic and Hypercapneic Respiratory Failure s/p Tracheostomy Pneumonia ARDS Septic Shock Acute on Chronic Diastolic Heart Failure Pulmonary HTN Paroxysmal Atrial Fibrillation CAD Acute Kidney Injury COPD JUANA/OHS SBO History of Present Illness: NAD, alert and oriented, sleepy On IV Vanco day #12, to complete 14 days in total Tried on PMV yesterday, tolerated well Encouraged daily use Will do MBS today - Current Medication List Current Medications: Active Medications Acetaminophen (Tylenol Oral Solution -) 650 mg PO Q4H PRN PRN Reason: PAIN Amino Acids (Prosource No Carb Liquid Pkt) 30 ml NGT DAILY@0800 [facility] Last Admin: 01/26/20 09:00 Dose: 30 ml Documented by: Apixaban (Eliquis -) 5 mg NGT BID [facility] Last Admin: 01/26/20 10:39 Dose: 5 mg Documented by: Ascorbic Acid (Vitamin C Oral Solution -) 1,000 mg NGT DAILY [facility] Last Admin: 01/26/20 10:40 Dose: 1,000 mg Documented by: Buspirone HCl (Buspar -) 5 mg GT BID [facility] Last Admin: 01/26/20 10:39 Dose: 5 mg Documented by: Chlorhexidine Gluconate (Peridex -) 15 ml MM BID [facility] Last Admin: 01/26/20 10:39 Dose: 15 ml Documented by: Escitalopram Oxalate (Lexapro Oral Solution -) 10 mg GT DAILY [facility] Last Admin: 01/26/20 10:39 Dose: 10 mg Documented by: Famotidine (Pepcid) 20 mg PEG DAILY [facility] Last Admin: 01/26/20 10:40 Dose: 20 mg Documented by: Vancomycin HCl (Vancomycin (Pre-Docked)) 1,000 mg in 250 mls @ 250 mls/hr IVPB BID [facility]; Protocol Last Admin: 01/26/20 10:44 Dose: 250 mls/hr Documented by: Metoprolol Tartrate (Lopressor -) 25 mg NGT BID [facility] Last Admin: 01/26/20 10:39 Dose: 25 mg Documented by: Multivitamins/Minerals (Certavite-Antioxidant Liquid) 15 ml NGT DAILY [facility] Last Admin: 01/26/20 10:39 Dose: 15 ml Documented by: Trazodone HCl (Desyrel -) 50 mg NGT HS [facility] Last Admin: 01/25/20 23:22 Dose: 50 mg Documented by: - Objective Vital Signs: Vital Signs Temperature 99 F 01/26/20 10:00 Pulse Rate 85 01/26/20 10:00 Respiratory Rate 22 H 01/26/20 10:00 Blood Pressure 125/76 01/26/20 10:00 O2 Sat by Pulse Oximetry (%) 98 01/26/20 10:00 Constitutional: Yes: Well Nourished, No Distress, Calm, Obese Cardiovascular: Yes: Regular Rate and Rhythm Respiratory: Yes: Regular, CTA Bilaterally, Mechanically Ventilated Gastrointestinal: Yes: Normal Bowel Sounds, Soft, Abdomen, Obese Genitourinary: Yes: WNL Musculoskeletal: Yes: WNL Extremities: Yes: WNL Edema: No Peripheral Pulses WNL: Yes Neurological: Yes: Alert, Oriented Psychiatric: Yes: Alert, Oriented Labs: CBC, BMP 01/26/20 08:15 01/26/20 08:15 INR, PTT INR 1.23 (0.83-1.09) H 01/10/20 13:50 Problem List - Problems (1) SBO (small bowel obstruction) Assessment/Plan: -Resolved -Tolerating TF well -GI and surgery consult appreciated Problems reviewed: Yes Code(s): K56.609 - UNSP INTESTNL OBST, UNSP TO PARTIAL VERSUS COMPLETE OBST (2) Morbid obesity Problems reviewed: Yes Code(s): E66.01 - MORBID (SEVERE) OBESITY DUE TO EXCESS CALORIES (3) Pneumonia Assessment/Plan: -SC:MRSA -On IV Vanco day 12, to complete 14 days in total -ID on board -Afebrile Problems reviewed: Yes Code(s): J18.9 - PNEUMONIA, UNSPECIFIED ORGANISM Qualifiers: Pneumonia type: due to unspecified organism Laterality: right Lung location: lower lobe of lung Qualified Code(s): J18.9 - Pneumonia, unspecified organism (4) Atrial fibrillation Assessment/Plan: -Chronic, rate controlled -Continue eliquis 5 mg GT BID Problems reviewed: Yes Code(s): I48.91 - UNSPECIFIED ATRIAL FIBRILLATION Qualifiers: Atrial fibrillation type: paroxysmal Qualified Code(s): I48.0 - Paroxysmal atrial fibrillation (5) Respiratory failure with hypoxia and hypercapnia Assessment/Plan: -Pulmonary on board -S/P trach -Mech vent -Wean as tolerated-CPAP tolerated today -LTAC placement upon discharge -Trial of Passy jaki today with speech therapy -Spoke to Corrina Bauer- friend of Mariana (mother)-as per mother's request, to explain the need for PEG for now and continuing rehab thereafter. Corrina will speak to Mariana, contact number provided to reach me with any questions and the decision -Possible trial of MBS today -Encouraged daily PMV use Problems reviewed: Yes Code(s): J96.91 - RESPIRATORY FAILURE, UNSPECIFIED WITH HYPOXIA; J96.92 - RESPIRATORY FAILURE, UNSPECIFIED WITH HYPERCAPNIA Qualifiers: Chronicity: acute on chronic Qualified Code(s): J96.21 - Acute and chronic respiratory failure with hypoxia; J96.22 - Acute and chronic respiratory failure with hypercapnia (6) Hypokalemia Assessment/Plan: -Resolved -Nephrology on board -Monitor trend Problems reviewed: Yes Code(s): E87.6 - HYPOKALEMIA (7) MRSA (methicillin resistant staphylococcus aureus) pneumonia Problems reviewed: Yes Code(s): J15.212 - PNEUMONIA DUE TO METHICILLIN RESISTANT STAPHYLOCOCCUS AUREUS (8) Anxiety Assessment/Plan: -Trial of SSRI-lexapro 10 mg GT daily -Add Buspirone 5 mg GT BID PRN for breakthrough -D/C Ativan PRN- making pt too lethargic Problems reviewed: Yes Code(s): F41.9 - ANXIETY DISORDER, UNSPECIFIED Assessment/Plan See problem list
--- NOTE | 2020-01-26 13:05 | PN ---
Progress Note (short form) - Note Progress Note: Awake and alert on SIMV 6 Mode of vent. Apparently tolerated PMV yesterday. Denies abdominal tenderness. No acute events overnight. Intake & Output 01/23/20 01/24/20 01/25/20 01/26/20 23:59 23:59 23:59 23:59 Intake Total 1538 1330 1940 1330 Output Total 300 Balance 1238 1330 1940 1330 Weight 218 lb 1.6 oz 211 lb 12.8 oz 217 lb 215 lb 1.6 oz Last Vital Signs Temp Pulse Resp BP Pulse Ox 99 F 85 20 125/76 97 01/26/20 10:00 01/26/20 10:00 01/26/20 12:45 01/26/20 10:00 01/26/20 12:45 Active Medications Acetaminophen (Tylenol Oral Solution -) 650 mg PO Q4H PRN PRN Reason: PAIN Amino Acids (Prosource No Carb Liquid Pkt) 30 ml NGT DAILY@0800 [facility] Last Admin: 01/26/20 09:00 Dose: 30 ml Documented by: Apixaban (Eliquis -) 5 mg NGT BID [facility] Last Admin: 01/26/20 10:39 Dose: 5 mg Documented by: Ascorbic Acid (Vitamin C Oral Solution -) 1,000 mg NGT DAILY [facility] Last Admin: 01/26/20 10:40 Dose: 1,000 mg Documented by: Buspirone HCl (Buspar -) 5 mg GT BID [facility] Last Admin: 01/26/20 10:39 Dose: 5 mg Documented by: Chlorhexidine Gluconate (Peridex -) 15 ml MM BID [facility] Last Admin: 01/26/20 10:39 Dose: 15 ml Documented by: Escitalopram Oxalate (Lexapro Oral Solution -) 10 mg GT DAILY [facility] Last Admin: 01/26/20 10:39 Dose: 10 mg Documented by: Famotidine (Pepcid) 20 mg PEG DAILY [facility] Last Admin: 01/26/20 10:40 Dose: 20 mg Documented by: Vancomycin HCl (Vancomycin (Pre-Docked)) 1,000 mg in 250 mls @ 250 mls/hr IVPB BID [facility]; Protocol Last Admin: 01/26/20 10:44 Dose: 250 mls/hr Documented by: Metoprolol Tartrate (Lopressor -) 25 mg NGT BID [facility] Last Admin: 01/26/20 10:39 Dose: 25 mg Documented by: Multivitamins/Minerals (Certavite-Antioxidant Liquid) 15 ml NGT DAILY [facility] Last Admin: 01/26/20 10:39 Dose: 15 ml Documented by: Trazodone HCl (Desyrel -) 50 mg NGT HS [facility] Last Admin: 01/25/20 23:22 Dose: 50 mg Documented by: Gen: vented, awake Heart: RRR Lung: scattered rhonchi Abd: softly distended, nontender Ext: no edema Laboratory Results - last 24 hr 01/26/20 01/26/20 08:15 08:15 WBC 5.9 RBC 4.34 Hgb 11.1 L Hct 36.1 MCV 83.2 MCH 25.5 L MCHC 30.6 L RDW 24.2 H Plt Count 155 MPV 8.8 Absolute Neuts (auto) Window [employer] Neutrophils % Window [employer] Installer Neutrophils % (Manual) 64.0 Band Neutrophils % 0.0 Lymphocytes % [employer]er Lymphocytes % (Manual) 14.0 D Monocytes % [employer]er Monocytes % (Manual) 13 H D Eosinophils % [employer]er Eosinophils % (Manual) 9.0 H Basophils % [employer] Installer Basophils % (Manual) 0.0 Myelocytes % (Man) 0 Promyelocytes % (Man) 0 Blast Cells % (Manual) 0 Nucleated RBC % 0 Metamyelocytes 0 D Platelet Estimate Decreased Poikilocytosis 0 Anisocytosis 1+ Microcytosis 1+ Macrocytosis 0 Sodium 140 Potassium 3.6 Chloride 103 Carbon Dioxide 27 Anion Gap 9 BUN 13.7 Creatinine 0.6 Est GFR (CKD-EPI)AfAm 121.43 Est GFR (CKD-EPI)NonAf 104.77 Random Glucose 121 H Calcium 8.3 L Magnesium 1.9 Total Bilirubin 1.6 H AST 21 ALT 38 Alkaline Phosphatase 114 Total Protein 5.7 L Albumin 2.4 L A/P Acute on Chronic Hypoxic and Hypercapneic Respiratory Failure s/p Tracheostomy Pneumonia ARDS resolved Septic Shock resolved Acute on Chronic Diastolic Heart Failure Pulmonary HTN Paroxysmal Atrial Fibrillation CAD Acute Kidney Injury Likely COPD JUANA/OHS HTN Hypercholesterolemia - Wean as tolerated: MBS scheduled - antibiotics per ID - rate control - continue anticoagulation - titrate FiO2, PEEP to keep SpO2 >90% - monitor urine output, creatinine - DVT/GI prophylaxis Dr Sanz
--- NOTE | 2020-01-26 14:42 | PN ---
Progress Note, Physician History of Present Illness: Pt seen and examined at bedside. He complains of abdominal discomfort. - Current Medication List Current Medications: Active Medications Acetaminophen (Tylenol Oral Solution -) 650 mg PO Q4H PRN PRN Reason: PAIN Amino Acids (Prosource No Carb Liquid Pkt) 30 ml NGT DAILY@0800 [facility] Last Admin: 01/26/20 09:00 Dose: 30 ml Documented by: Apixaban (Eliquis -) 5 mg NGT BID [facility] Last Admin: 01/26/20 10:39 Dose: 5 mg Documented by: Ascorbic Acid (Vitamin C Oral Solution -) 1,000 mg NGT DAILY [facility] Last Admin: 01/26/20 10:40 Dose: 1,000 mg Documented by: Buspirone HCl (Buspar -) 5 mg GT BID [facility] Last Admin: 01/26/20 10:39 Dose: 5 mg Documented by: Chlorhexidine Gluconate (Peridex -) 15 ml MM BID [facility] Last Admin: 01/26/20 10:39 Dose: 15 ml Documented by: Escitalopram Oxalate (Lexapro Oral Solution -) 10 mg GT DAILY [facility] Last Admin: 01/26/20 10:39 Dose: 10 mg Documented by: Famotidine (Pepcid) 20 mg PEG DAILY [facility] Last Admin: 01/26/20 10:40 Dose: 20 mg Documented by: Vancomycin HCl (Vancomycin (Pre-Docked)) 1,000 mg in 250 mls @ 250 mls/hr IVPB BID [facility]; Protocol Last Admin: 01/26/20 10:44 Dose: 250 mls/hr Documented by: Metoprolol Tartrate (Lopressor -) 25 mg NGT BID [facility] Last Admin: 01/26/20 10:39 Dose: 25 mg Documented by: Multivitamins/Minerals (Certavite-Antioxidant Liquid) 15 ml NGT DAILY [facility] Last Admin: 01/26/20 10:39 Dose: 15 ml Documented by: Trazodone HCl (Desyrel -) 50 mg NGT HS [facility] Last Admin: 01/25/20 23:22 Dose: 50 mg Documented by: - Objective Vital Signs: Vital Signs Temperature 99 F 01/26/20 10:00 Pulse Rate 85 01/26/20 10:00 Respiratory Rate 20 01/26/20 12:45 Blood Pressure 125/76 01/26/20 10:00 O2 Sat by Pulse Oximetry (%) 97 01/26/20 12:45 Constitutional: Yes: Calm Eyes: Yes: Conjunctiva Clear HENT: Yes: Atraumatic Neck: Yes: Supple Cardiovascular: Yes: S1, S2 Respiratory: Yes: Mechanically Ventilated Gastrointestinal: Yes: Distention Genitourinary: Yes: Incontinence Musculoskeletal: Yes: WNL Edema: No Neurological: Yes: Oriented Labs: CBC, BMP 01/26/20 08:15 01/26/20 08:15 INR, PTT INR 1.23 (0.83-1.09) H 01/10/20 13:50 - ....Imaging X-ray: Report Reviewed Problem List - Problems (1) Anasarca Code(s): R60.1 - GENERALIZED EDEMA (2) Congestive heart failure (CHF) Code(s): I50.9 - HEART FAILURE, UNSPECIFIED Qualifiers: Heart failure type: diastolic Heart failure chronicity: acute on chronic Qualified Code(s): I50.33 - Acute on chronic diastolic (congestive) heart failure (3) Acute kidney injury Code(s): N17.9 - ACUTE KIDNEY FAILURE, UNSPECIFIED Assessment/Plan Current Medications Generic Name Dose Route Start Last Admin Trade Name Freq PRN Reason Stop Dose Admin Acetaminophen 650 mg 01/24/20 17:28 Tylenol Oral Solution - PO Q4H PRN PAIN Amino Acids 30 ml 01/12/20 08:00 01/26/20 09:00 Prosource No Carb Liquid Pkt NGT 30 ml DAILY@0800 [facility] Administration Apixaban 5 mg 01/12/20 11:30 01/26/20 10:39 Eliquis - NGT 5 mg BID [facility] Administration Ascorbic Acid 1,000 mg 01/12/20 11:30 01/26/20 10:40 Vitamin C Oral Solution - NGT 1,000 mg DAILY [facility] Administration Buspirone HCl 5 mg 01/25/20 22:00 01/26/20 10:39 Buspar - GT 5 mg BID [facility] Administration Chlorhexidine Gluconate 15 ml 01/12/20 10:00 01/26/20 10:39 Peridex - MM 15 ml BID [facility] Administration Escitalopram Oxalate 10 mg 01/25/20 10:00 01/26/20 10:39 Lexapro Oral Solution - GT 10 mg DAILY [facility] Administration Famotidine 20 mg 01/25/20 10:00 01/26/20 10:40 Pepcid PEG 20 mg DAILY [facility] Administration Vancomycin HCl 1,000 mg in 250 mls @ 250 mls/hr 01/14/20 22:00 01/26/20 10:44 Vancomycin (Pre-Docked) IVPB 250 mls/hr BID [facility] Administration Protocol Metoprolol Tartrate 25 mg 01/12/20 11:26 01/26/20 10:39 Lopressor - NGT 25 mg BID [facility] Administration Multivitamins/Minerals 15 ml 01/12/20 11:32 01/26/20 10:39 Certavite-Antioxidant Liquid NGT 15 ml DAILY [facility] Administration Trazodone HCl 50 mg 01/25/20 22:00 01/25/20 23:22 Desyrel - NGT 50 mg HS [facility] Administration Impression 1. MONIE 2. CHF acute 3. acute resp failure requiring intubation 4. atrial fibrillation 5. hx of htn 6. obesity 7. chronic smoker 8. hypokalemia 9. partial sbo Plan - abd x-ray reviewed - hold feeds - restart clinimix - recall surgery for follow up - will hold off lasix - cont vent support
[2020-01-26] MEDS: POTASSIUM CHLORIDE 40 MEQ in AMINO ACIDS 4.25%/D5W 1,000 ML IVPB SCH (17:27)
[2020-01-26] MEDS ORDERED: METOPROLOL TARTRATE 5 MG/5 ML VIAL IVPB PRN ×2 (19:46→20:08)
[2020-01-26] MEDS ORDERED: ACETAMINOPHEN 1000 MG/100 ML VIAL (NON FORMULARY) IVPB PRN (20:05)
[2020-01-26] MEDS: ENOXAPARIN NA (PORCINE) 100 MG/1 ML DISP.SYRIN SQ SCH (21:39)
[2020-01-27] MEDS: POTASSIUM CHLORIDE 40 MEQ in AMINO ACIDS 4.25%/D5W 1,000 ML IVPB SCH ×3 (03:15→15:15)
[2020-01-27 08:55] LABS: ALBUMIN 2.4 g/dl (3.4-5.0); BILIRUBIN,TOTAL 1.2 mg/dL (0.2-1); CALCIUM 8.4 mg/dL (8.5-10.1); CREATININE 0.5 mg/dL (0.55-1.3); POTASSIUM 3.8 mmol/L (3.5-5.1); TOT PROT 5.6 g/dl (6.4-8.2)
[2020-01-27 09:04] LABS: BASO % 0.8 % (0-2.0); EOS % 6.9 % (0-4.5); HEMOGLOBIN 11.1 GM/dL (11.7-16.9); LYMPH % 15.4 % (8-40); MCH 25.1 pg (25.7-33.7); MCHC 30.1 g/dl (32.0-35.9); MEAN CELL VOLUME 83.4 fl (80-96); MEAN PLT VOLUME 9.1 fl (7.5-11.1); MONO % 13.8 % (3.8-10.2); NEUT % 63.1 % (42.8-82.8); PLATELET COUNT 165 K/MM3 (134-434); RBC 4.44 M/mm3 (4.00-5.60); RDW 24.9 % (11.9-15.9); WHITE BLOOD COUNT 5.9 K/mm3 (4.0-10.0)
--- NOTE | 2020-01-27 09:40 | PN ---
Progress Note (short form) - Note Progress Note: Patient seen and examined. Very upset that he has not eaten in 15 days" demanding to go home. Denies abo pain, states he wants to eat (mouthing words), tolerating tube feeds, passing flatus. No bm, denies n/v/d. Vital Signs Temp 97.7 F 01/27/20 06:00 Pulse 84 01/27/20 06:00 Resp 13 01/27/20 08:58 BP 126/83 01/27/20 06:00 Pulse Ox 94 L 01/27/20 08:58 Intake & Output 01/26/20 01/26/20 01/27/20 11:59 23:59 11:59 Intake Total 6366 024 1205 Output Total 400 700 Balance 1330 564 308 Weight 215 lb 1.6 oz 221 lb Intake: IV 84 1008 SALINE LOCK 84 1008 IVPB 250 250 Tube Feeding 660 385 Tube Irrigant 420 245 Output: Gastric Drainage 700 Urine 400 Void 400 Other: Voiding Method Incontinent Incontinent Incontinent # Unmeasured Voids Void 2 3 2 Bowel Movement No No No Body Mass Index (BMI) 33.0 Weight Measurement Method Built in Bedscale Built in Bedscale CBC, BMP 01/27/20 07:30 01/27/20 07:30 GENERAL: awake, alert, and fully oriented, in no acute distress. NECK: s/p trach, on vent, NGT in place with scant bilious drainage in reservoir ABDOMEN: Soft,distended, tympanic, no ttp, no guarding, no rebound A/P: 64 y/o M w/ HTN, HLD, JUANA (not using CPAP), COPD, GERD, systolic congestive heart failure, paroxysmal atrial fibrillation (on Eliquis, s/p cardioversion 11/2016) a/w CHF exacerbation with complicated hospital course requiring intubation, trach. General surgery consulted for partial SBO vs. ileus. NGT output 700 ml overnight afebrile, vss labs noted axr reviewed with attending -continue conservative management at this time -start tpn -serial abdo exams -remainder of care per primary team -daily axr d/w attending Dr Shipley
[2020-01-27] MEDS ORDERED: ENOXAPARIN NA (PORCINE) 40 MG/0.4 ML DISP.SYRIN SQ SCH (10:00)
--- NOTE | 2020-01-27 10:30 | PN ---
Progress Note (short form) - Note Progress Note: 4 year old male with a past medical history of HTN, HLD, JUANA (not using CPAP), COPD, GERD, systolic congestive heart failure, paroxysmal atrial fibrillation (on Eliquis, s/p cardioversion 11/2016) who presented with 3 weeks of gradual onset anasarca, scrotal swelling and mild shortness of breath worse on exertion. CXR s/f diffused bilat opacities with c/f PNA +/-fluid overload, ?bilateral lower extremity cellulitis and bilateral hydrocele, and respiratory acidosis is admitted for Acute hypercapneic respiratory failure and Acute CHF exacerbation, intubated for progressive hypercarbic respiratory failure, decreased mental status on BiPAP. 01/11/2020 s/p percutaneous tracheostomy, awake off sedation. Vented on volume assist control with 40% FiO2, PEEP 5. Placed on CPAP/PS. 01/12/2020 Off sedation on vent 01/12: no acute cardiac events; had elevated temp 01/13: No significant change01/14: No cardiac events 01/15: Vented, awake. Currently on SIMV RR 8 PS 10. Abd slightly distended 01/16: Vented awake on SIMV RR 8 PS 10. No fevers. 01/17: Ileus noted on abd/pelvic CT, interactive on vent 01/18: Small BM, NGT inserted 01/22: Improving AXR, patient remains on a ventilator via tracheostomy, awake and alert in no distress 01/24: Vent wean on trach, awake tolerating enteral feeds, ileus resolving 01/25: Vent wean on trach, no acute changes 01/26: SBO, NGT; followed by surgery;no acute cardiac events Vital Signs Temperature 97.7 F 01/27/20 06:00 Pulse Rate 84 01/27/20 06:00 Respiratory Rate 13 01/27/20 08:58 Blood Pressure 126/83 01/27/20 06:00 O2 Sat by Pulse Oximetry (%) 94 L 01/27/20 08:58 Neck: Yes: Other (Trach) Cardiovascular: Yes: Regular Rate and Rhythm Respiratory: Yes: Mechanically Ventilated, Rhonchi Edema: No Integumentary: Yes: Venous Stasis Changes Labs: CBC, BMP 01/27/20 07:30 01/27/20 07:30 Active Medications Acetaminophen (Tylenol Oral Solution -) 650 mg PO Q4H PRN PRN Reason: PAIN Acetaminophen (Ofirmev Injection -) 1,000 mg IVPB Q6H PRN PRN Reason: FEVER OR PAIN Stop: 01/27/20 20:05 Amino Acids (Prosource No Carb Liquid Pkt) 30 ml NGT DAILY@0800 [facility] Last Admin: 01/26/20 09:00 Dose: 30 ml Documented by: Apixaban (Eliquis -) 5 mg NGT BID [facility] Last Admin: 01/26/20 10:39 Dose: 5 mg Documented by: Ascorbic Acid (Vitamin C Oral Solution -) 1,000 mg NGT DAILY [facility] Last Admin: 01/26/20 10:40 Dose: 1,000 mg Documented by: Buspirone HCl (Buspar -) 5 mg GT BID [facility] Last Admin: 01/26/20 10:39 Dose: 5 mg Documented by: Chlorhexidine Gluconate (Peridex -) 15 ml MM BID [facility] Last Admin: 01/26/20 21:42 Dose: Not Given Documented by: Enoxaparin Sodium (Lovenox -) 100 mg SQ BID [facility] Last Admin: 01/26/20 21:39 Dose: 100 mg Documented by: Escitalopram Oxalate (Lexapro Oral Solution -) 10 mg GT DAILY [facility] Last Admin: 01/26/20 10:39 Dose: 10 mg Documented by: Famotidine (Pepcid) 20 mg PEG DAILY [facility] Last Admin: 01/26/20 10:40 Dose: 20 mg Documented by: Vancomycin HCl (Vancomycin (Pre-Docked)) 1,000 mg in 250 mls @ 250 mls/hr IVPB BID [facility]; Protocol Last Admin: 01/26/20 23:18 Dose: Not Given Documented by: Potassium Chloride 40 meq/ (Amino Acids) 1,020 mls @ 84 mls/hr IVPB Q12H [facility] Last Admin: 01/27/20 06:21 Dose: 84 mls/hr Documented by: Famotidine/Sodium Chloride (Pepcid 20 Mg Premixed Ivpb -) 20 mg in 50 mls @ 100 mls/hr IVPB DAILY [facility] Metoprolol Tartrate (Lopressor -) 25 mg NGT BID [facility] Last Admin: 01/26/20 10:39 Dose: 25 mg Documented by: Metoprolol Tartrate (Lopressor Injection -) 5 mg IVPB Q4H PRN PRN Reason: TACHYCARDIA Multivitamins/Minerals (Certavite-Antioxidant Liquid) 15 ml NGT DAILY [facility] Last Admin: 01/26/20 10:39 Dose: 15 ml Documented by: Trazodone HCl (Desyrel -) 50 mg NGT HS [facility] Last Admin: 01/25/20 23:22 Dose: 50 mg Documented by: Problem List - Problems (1) Congestive heart failure (CHF) Code(s): I50.9 - HEART FAILURE, UNSPECIFIED Qualifiers: Qualified Code(s): I50.33 - Acute on chronic diastolic (congestive) heart failure (2) Pneumonia Code(s): J18.9 - PNEUMONIA, UNSPECIFIED ORGANISM Qualifiers: Qualified Code(s): J18.9 - Pneumonia, unspecified organism (3) Acute on chronic diastolic (congestive) heart failure Code(s): I50.33 - ACUTE ON CHRONIC DIASTOLIC (CONGESTIVE) HEART FAILURE (4) Acute respiratory failure with hypoxia and hypercarbia Code(s): J96.01 - ACUTE RESPIRATORY FAILURE WITH HYPOXIA; J96.02 - ACUTE RESPIRATORY FAILURE WITH HYPERCAPNIA (5) Atrial fibrillation Code(s): I48.91 - UNSPECIFIED ATRIAL FIBRILLATION Qualifiers: Qualified Code(s): I48.0 - Paroxysmal atrial fibrillation (6) COPD (chronic obstructive pulmonary disease) Code(s): J44.9 - CHRONIC OBSTRUCTIVE PULMONARY DISEASE, UNSPECIFIED Qualifiers: Qualified Code(s): J44.9 - Chronic obstructive pulmonary disease, unspecified (7) Hypertension Code(s): I10 - ESSENTIAL (PRIMARY) HYPERTENSION Qualifiers: Qualified Code(s): I10 - Essential (primary) hypertension (8) Pleural effusion Code(s): J90 - PLEURAL EFFUSION, NOT ELSEWHERE CLASSIFIED Assessment/Plan 10/26/2017 Normal LV size with mild LVH, normal LV fxn, normal RV size and fxn, mild LAE, mild MR, mild-mod TR, mild MA, RVSP 43 mmHg 11/19/2016 Lexiscan Myoview: Apical ischemia, LVEF 45-52% 10/06/2016 Echocardiography revealed mild to moderate LV systolic dysfunction, moderate TR, RVSP of 30-40 mmHg 1. Acute on chronic Hypoxic and Hypercapneic Respiratory Failure with tracheostomy 2. Acute on chronic LV Diastolic Heart Failure with pleural effusion 3. Pneumonia, ARDS (septic shock) resolved 4. Paroxysmal atrial fibrillation with periods of rapid ventricular response post DCCV, [id number] score of 2 5. Obstructive Sleep Apnea/Obesity 6. HTN/HCVD 7. Hypercholesterolemia 8. CAD, angina pectoris 9. Bilateral cellulitis with h/o abscess s/p debridement 10. Bilateral hydrocele 11. ?SBO PLAN: 1. Vent support via tracheostomy, 2. DVT and GI prophylaxis and enteral feeds resumed 3. Diuretics held with monitor renal function and electrolytes 4. Continue Lopressor 25 mg BID and Eliquis 5 mg BID (via NGT) 5.SBO per surgery
--- NOTE | 2020-01-27 10:38 | PN ---
Progress Note, Physician Chief Complaint: Acute on Chronic Hypoxic and Hypercapneic Respiratory Failure s/p Tracheostomy Pneumonia ARDS Septic Shock Acute on Chronic Diastolic Heart Failure Pulmonary HTN Paroxysmal Atrial Fibrillation CAD Acute Kidney Injury COPD JUANA/OHS SBO History of Present Illness: NAD, alert and oriented, sleepy On IV Vanco day #13, to complete 14 days in total AXR high grade SBO NGT to low wall suction TF on hold - Current Medication List Current Medications: Active Medications Acetaminophen (Tylenol Oral Solution -) 650 mg PO Q4H PRN PRN Reason: PAIN Acetaminophen (Ofirmev Injection -) 1,000 mg IVPB Q6H PRN PRN Reason: FEVER OR PAIN Stop: 01/27/20 20:05 Amino Acids (Prosource No Carb Liquid Pkt) 30 ml NGT DAILY@0800 [facility] Last Admin: 01/26/20 09:00 Dose: 30 ml Documented by: Apixaban (Eliquis -) 5 mg NGT BID [facility] Last Admin: 01/26/20 10:39 Dose: 5 mg Documented by: Ascorbic Acid (Vitamin C Oral Solution -) 1,000 mg NGT DAILY [facility] Last Admin: 01/26/20 10:40 Dose: 1,000 mg Documented by: Buspirone HCl (Buspar -) 5 mg GT BID [facility] Last Admin: 01/26/20 10:39 Dose: 5 mg Documented by: Chlorhexidine Gluconate (Peridex -) 15 ml MM BID [facility] Last Admin: 01/26/20 21:42 Dose: Not Given Documented by: Enoxaparin Sodium (Lovenox -) 100 mg SQ BID [facility] Last Admin: 01/26/20 21:39 Dose: 100 mg Documented by: Escitalopram Oxalate (Lexapro Oral Solution -) 10 mg GT DAILY [facility] Last Admin: 01/26/20 10:39 Dose: 10 mg Documented by: Famotidine (Pepcid) 20 mg PEG DAILY [facility] Last Admin: 01/26/20 10:40 Dose: 20 mg Documented by: Vancomycin HCl (Vancomycin (Pre-Docked)) 1,000 mg in 250 mls @ 250 mls/hr IVPB BID [facility]; Protocol Last Admin: 01/26/20 23:18 Dose: Not Given Documented by: Potassium Chloride 40 meq/ (Amino Acids) 1,020 mls @ 84 mls/hr IVPB Q12H [facility] Last Admin: 01/27/20 06:21 Dose: 84 mls/hr Documented by: Famotidine/Sodium Chloride (Pepcid 20 Mg Premixed Ivpb -) 20 mg in 50 mls @ 100 mls/hr IVPB DAILY [facility] Metoprolol Tartrate (Lopressor -) 25 mg NGT BID [facility] Last Admin: 01/26/20 10:39 Dose: 25 mg Documented by: Metoprolol Tartrate (Lopressor Injection -) 5 mg IVPB Q4H PRN PRN Reason: TACHYCARDIA Multivitamins/Minerals (Certavite-Antioxidant Liquid) 15 ml NGT DAILY [facility] Last Admin: 01/26/20 10:39 Dose: 15 ml Documented by: Trazodone HCl (Desyrel -) 50 mg NGT HS [facility] Last Admin: 01/25/20 23:22 Dose: 50 mg Documented by: - Objective Vital Signs: Vital Signs Temperature 97.7 F 01/27/20 06:00 Pulse Rate 84 01/27/20 06:00 Respiratory Rate 13 01/27/20 08:58 Blood Pressure 126/83 01/27/20 06:00 O2 Sat by Pulse Oximetry (%) 94 L 01/27/20 08:58 Constitutional: Yes: Well Nourished, No Distress, Calm, Obese Cardiovascular: Yes: Regular Rate and Rhythm Respiratory: Yes: Regular, CTA Bilaterally, Mechanically Ventilated Gastrointestinal: Yes: Soft, Abdomen, Obese, Hypoactive Bowel Sounds Genitourinary: Yes: Incontinence Musculoskeletal: Yes: Muscle Weakness Edema: No Peripheral Pulses WNL: Yes Neurological: Yes: Alert, Oriented Psychiatric: Yes: Alert, Oriented Labs: CBC, BMP 01/27/20 07:30 01/27/20 07:30 INR, PTT INR 1.23 (0.83-1.09) H 01/10/20 13:50 Problem List - Problems (1) SBO (small bowel obstruction) Assessment/Plan: -AXR-high grade SBO -Keep Pt NPO -NGT to low wall suction Problems reviewed: Yes Code(s): K56.609 - UNSP INTESTNL OBST, UNSP TO PARTIAL VERSUS COMPLETE OBST (2) Morbid obesity Problems reviewed: Yes Code(s): E66.01 - MORBID (SEVERE) OBESITY DUE TO EXCESS CALORIES (3) Pneumonia Assessment/Plan: -SC:MRSA -On IV Vanco day 13, to complete 14 days in total -ID on board -Afebrile Problems reviewed: Yes Code(s): J18.9 - PNEUMONIA, UNSPECIFIED ORGANISM Qualifiers: Pneumonia type: due to unspecified organism Laterality: right Lung location: lower lobe of lung Qualified Code(s): J18.9 - Pneumonia, unspecified organism (4) Atrial fibrillation Assessment/Plan: -Chronic, rate controlled -eliquis 5 mg GT BID on hold -Started on Lovenox 100 mg BID Problems reviewed: Yes Code(s): I48.91 - UNSPECIFIED ATRIAL FIBRILLATION Qualifiers: Atrial fibrillation type: paroxysmal Qualified Code(s): I48.0 - Paroxysmal atrial fibrillation (5) Respiratory failure with hypoxia and hypercapnia Assessment/Plan: -Pulmonary on board -S/P trach -Mech vent -Wean as tolerated-CPAP tolerated today -LTAC placement upon discharge -Trial of Rohini pollack today with speech therapy -Spoke to Corrina Bauer- friend of Mariana (mother)-as per mother's request, to explain the need for PEG for now and continuing rehab thereafter. Corrina will speak to Mariana, contact number provided to reach me with any questions and the dec ision -Possible trial of MBS today -Encouraged daily PMV use Code(s): J96.91 - RESPIRATORY FAILURE, UNSPECIFIED WITH HYPOXIA; J96.92 - RESPIRATORY FAILURE, UNSPECIFIED WITH HYPERCAPNIA Qualifiers: Chronicity: acute on chronic Qualified Code(s): J96.21 - Acute and chronic respiratory failure with hypoxia; J96.22 - Acute and chronic respiratory failure with hypercapnia (6) Hypokalemia Assessment/Plan: -Resolved -Nephrology on board -Monitor trend Problems reviewed: Yes Code(s): E87.6 - HYPOKALEMIA (7) MRSA (methicillin resistant staphylococcus aureus) pneumonia Problems reviewed: Yes Code(s): J15.212 - PNEUMONIA DUE TO METHICILLIN RESISTANT STAPHYLOCOCCUS AUREUS (8) Anxiety Assessment/Plan: -Hold SSRI-lexapro 10 mg GT daily -Hold Buspirone 5 mg GT BID PRN for breakthrough -D/C Ativan PRN- making pt too lethargic Problems reviewed: Yes Code(s): F41.9 - ANXIETY DISORDER, UNSPECIFIED Assessment/Plan See problem list
[2020-01-27] MEDS: CHLORHEXIDINE GLUCONATE 0.12% 15ML CUP MM SCH ×2 (11:12→23:52)
[2020-01-27] MEDS: FAMOTIDINE 20 MG/50 ML IVPB 20 MG/50 ML MG IVPB SCH (11:13)
[2020-01-27] MEDS: ENOXAPARIN NA (PORCINE) 100 MG/1 ML DISP.SYRIN SQ SCH ×2 (11:13→23:52)
--- NOTE | 2020-01-27 12:02 | PN ---
Progress Note (short form) - Note Progress Note: PULMONARY DAY #42 HOSPITALIZATION AWAKE/ALERT IMV 6/350/40/5 PMV tolerating well ngt to suction due to sbo Gen: vented, awake Heart: RRR Lung: scattered rhonchi Abd: softly distended, nontender Ext: no edema LABS/MEDS/NOTES/IMAGES REVIEWED A/P Acute on Chronic Hypoxic and Hypercapneic Respiratory Failure s/p Tracheostomy Pneumonia ARDS resolved Septic Shock resolved Acute on Chronic Diastolic Heart Failure Pulmonary HTN Paroxysmal Atrial Fibrillation CAD Acute Kidney Injury Likely COPD JUANA/OHS HTN Hypercholesterolemia - Wean as tolerated: MBS scheduled - antibiotics per ID - rate control - continue anticoagulation - titrate FiO2, PEEP to keep SpO2 >90% - monitor urine output, creatinine - DVT/GI prophylaxis Barb DELACRUZ MD
--- NOTE | 2020-01-27 12:07 | PN ---
Progress Note, Physician History of Present Illness: stable no new issues on mechanical vent c/o of constipation - Current Medication List Current Medications: Active Medications Acetaminophen (Tylenol Oral Solution -) 650 mg PO Q4H PRN PRN Reason: PAIN Acetaminophen (Ofirmev Injection -) 1,000 mg IVPB Q6H PRN PRN Reason: FEVER OR PAIN Stop: 01/27/20 20:05 Amino Acids (Prosource No Carb Liquid Pkt) 30 ml NGT DAILY@0800 [facility] Last Admin: 01/26/20 09:00 Dose: 30 ml Documented by: Apixaban (Eliquis -) 5 mg NGT BID [facility] Last Admin: 01/26/20 10:39 Dose: 5 mg Documented by: Ascorbic Acid (Vitamin C Oral Solution -) 1,000 mg NGT DAILY [facility] Last Admin: 01/26/20 10:40 Dose: 1,000 mg Documented by: Buspirone HCl (Buspar -) 5 mg GT BID [facility] Last Admin: 01/26/20 10:39 Dose: 5 mg Documented by: Chlorhexidine Gluconate (Peridex -) 15 ml MM BID [facility] Last Admin: 01/27/20 11:12 Dose: 15 ml Documented by: Enoxaparin Sodium (Lovenox -) 100 mg SQ BID [facility] Last Admin: 01/27/20 11:13 Dose: 100 mg Documented by: Escitalopram Oxalate (Lexapro Oral Solution -) 10 mg GT DAILY [facility] Last Admin: 01/26/20 10:39 Dose: 10 mg Documented by: Famotidine (Pepcid) 20 mg PEG DAILY [facility] Last Admin: 01/26/20 10:40 Dose: 20 mg Documented by: Vancomycin HCl (Vancomycin (Pre-Docked)) 1,000 mg in 250 mls @ 250 mls/hr IVPB BID [facility]; Protocol Last Admin: 01/26/20 23:18 Dose: Not Given Documented by: Potassium Chloride 40 meq/ (Amino Acids) 1,020 mls @ 84 mls/hr IVPB Q12H [facility] Last Admin: 01/27/20 06:21 Dose: 84 mls/hr Documented by: Famotidine/Sodium Chloride (Pepcid 20 Mg Premixed Ivpb -) 20 mg in 50 mls @ 100 mls/hr IVPB DAILY [facility] Last Admin: 01/27/20 11:13 Dose: 100 mls/hr Documented by: Metoprolol Tartrate (Lopressor -) 25 mg NGT BID [facility] Last Admin: 01/26/20 10:39 Dose: 25 mg Documented by: Metoprolol Tartrate (Lopressor Injection -) 5 mg IVPB Q4H PRN PRN Reason: TACHYCARDIA Multivitamins/Minerals (Certavite-Antioxidant Liquid) 15 ml NGT DAILY [facility] Last Admin: 01/26/20 10:39 Dose: 15 ml Documented by: Trazodone HCl (Desyrel -) 50 mg NGT HS [facility] Last Admin: 01/25/20 23:22 Dose: 50 mg Documented by: - Objective Vital Signs: Vital Signs Temperature 97.7 F 01/27/20 06:00 Pulse Rate 84 01/27/20 06:00 Respiratory Rate 13 01/27/20 08:58 Blood Pressure 126/83 01/27/20 06:00 O2 Sat by Pulse Oximetry (%) 94 L 01/27/20 08:58 Constitutional: Yes: No Distress, Calm Cardiovascular: Yes: S1, S2 Gastrointestinal: Yes: Soft Musculoskeletal: Yes: Muscle Weakness Extremities: Yes: Other Neurological: Yes: Alert, Oriented Psychiatric: Yes: Alert, Oriented Labs: CBC, BMP 01/27/20 07:30 01/27/20 07:30 INR, PTT INR 1.23 (0.83-1.09) H 01/10/20 13:50 Assessment/Plan Problem List - Problems (1) Edema of scrotum Code(s): N50.89 - OTHER SPECIFIED DISORDERS OF THE MALE GENITAL ORGANS (2) Morbid obesity Code(s): E66.01 - MORBID (SEVERE) OBESITY DUE TO EXCESS CALORIES (3) Acute on chronic diastolic (congestive) heart failure Code(s): I50.33 - ACUTE ON CHRONIC DIASTOLIC (CONGESTIVE) HEART FAILURE (4) Acute respiratory failure requiring reintubation Code(s): J96.00 - ACUTE RESPIRATORY FAILURE, UNSP W HYPOXIA OR HYPERCAPNIA (5) Afib Code(s): I48.91 - UNSPECIFIED ATRIAL FIBRILLATION Qualifiers: Atrial fibrillation type: paroxysmal Qualified Code(s): I48.0 - Paroxysmal atrial fibrillation Assessment/Plan Acute respiratory failure s/p trach on MV PNA Ileus/ pseudoobstruction CHF b/l LE Cellulitis b/l Hydrocele MONIE Paroxysmal AFIB COPD JUANA CAD HTN HLD abx resp support asp precautions rest as per the team vanco levels noted
--- NOTE | 2020-01-27 12:10 | PN ---
Progress Note, ANIMAL HUSBANDRY MANAGER - Note Progress Note: Per nursing, 01/25, pt. was brought to radiology for a modified barium swallow test, no adverse reactions noted. Pt. on PMV for 5 hours, tolerating well. Pt. was noted to have a residual of 220 ml when aspirating NGT. MECHANICAL SOUND TECHNICIAN Jesenia Layne was notified. Feedings held as per MECHANICAL SOUND TECHNICIAN, and abdominal xray ordered. Pt. was started on continuous low wall suction as per MECHANICAL SOUND TECHNICIAN. Pt did quite well on MBS yesterday. Initiation of PO diet pending medical clearance of SBO. Selected Entries 01/26/20 01/26/20 01/26/20 00:00 02:00 04:08 Temperature Pulse Rate Respiratory 21 H 20 18 Rate Blood Pressure O2 Sat by Pulse Oximetry (%) Fraction of Inspired Oxygen (FIO2) 01/26/20 01/26/20 01/26/20 06:00 08:00 09:00 Temperature Pulse Rate Respiratory 22 H 22 H 20 Rate Blood Pressure O2 Sat by Pulse Oximetry (%) Fraction of Inspired Oxygen (FIO2) 01/26/20 01/26/20 01/26/20 10:00 12:45 14:00 Temperature Pulse Rate Respiratory 22 H 20 20 Rate Blood Pressure O2 Sat by Pulse Oximetry (%) Fraction of Inspired Oxygen (FIO2) 01/26/20 01/26/20 01/26/20 16:29 18:32 20:05 Temperature Pulse Rate Respiratory 18 20 24 H Rate Blood Pressure O2 Sat by Pulse Oximetry (%) Fraction of Inspired Oxygen (FIO2) 01/26/20 01/27/20 01/27/20 22:00 00:30 02:00 Temperature 98.2 F Pulse Rate 89 Respiratory 22 H 22 H 22 H Rate Blood Pressure 105/60 O2 Sat by Pulse 98 99 Oximetry (%) Fraction of 40 Inspired Oxygen (FIO2) 01/27/20 01/27/20 01/27/20 04:40 06:00 08:58 Temperature 97.7 F Pulse Rate 84 Respiratory 18 22 H 13 Rate Blood Pressure 126/83 O2 Sat by Pulse 99 99 94 L Oximetry (%) Fraction of 40 40 Inspired Oxygen (FIO2) Laboratory Tests 01/27/20 07:30 WBC 5.9
[2020-01-27] MEDS: VANCOMYCIN 1 GRAM (PRE-DOCKED) 1,000 MG/250 ML BAG IVPB SCH ×2 (13:05→23:52)
--- NOTE | 2020-01-27 15:07 | PN ---
Progress Note, Physician History of Present Illness: Pt seen and examined at bedside. He is awake and alert. He is back on NPO. He denies abdominal pain. - Current Medication List Current Medications: Active Medications Acetaminophen (Tylenol Oral Solution -) 650 mg PO Q4H PRN PRN Reason: PAIN Acetaminophen (Ofirmev Injection -) 1,000 mg IVPB Q6H PRN PRN Reason: FEVER OR PAIN Stop: 01/27/20 20:05 Amino Acids (Prosource No Carb Liquid Pkt) 30 ml NGT DAILY@0800 [facility] Last Admin: 01/26/20 09:00 Dose: 30 ml Documented by: Apixaban (Eliquis -) 5 mg NGT BID [facility] Last Admin: 01/26/20 10:39 Dose: 5 mg Documented by: Ascorbic Acid (Vitamin C Oral Solution -) 1,000 mg NGT DAILY [facility] Last Admin: 01/26/20 10:40 Dose: 1,000 mg Documented by: Buspirone HCl (Buspar -) 5 mg GT BID [facility] Last Admin: 01/26/20 10:39 Dose: 5 mg Documented by: Chlorhexidine Gluconate (Peridex -) 15 ml MM BID [facility] Last Admin: 01/27/20 11:12 Dose: 15 ml Documented by: Enoxaparin Sodium (Lovenox -) 100 mg SQ BID [facility] Last Admin: 01/27/20 11:13 Dose: 100 mg Documented by: Escitalopram Oxalate (Lexapro Oral Solution -) 10 mg GT DAILY [facility] Last Admin: 01/26/20 10:39 Dose: 10 mg Documented by: Famotidine (Pepcid) 20 mg PEG DAILY [facility] Last Admin: 01/26/20 10:40 Dose: 20 mg Documented by: Vancomycin HCl (Vancomycin (Pre-Docked)) 1,000 mg in 250 mls @ 250 mls/hr IVPB BID [facility]; Protocol Last Admin: 01/27/20 13:05 Dose: Not Given Documented by: Potassium Chloride 40 meq/ (Amino Acids) 1,020 mls @ 84 mls/hr IVPB Q12H [facility] Last Admin: 01/27/20 06:21 Dose: 84 mls/hr Documented by: Famotidine/Sodium Chloride (Pepcid 20 Mg Premixed Ivpb -) 20 mg in 50 mls @ 100 mls/hr IVPB DAILY [facility] Last Admin: 01/27/20 11:13 Dose: 100 mls/hr Documented by: Metoprolol Tartrate (Lopressor -) 25 mg NGT BID [facility] Last Admin: 01/26/20 10:39 Dose: 25 mg Documented by: Metoprolol Tartrate (Lopressor Injection -) 5 mg IVPB Q4H PRN PRN Reason: TACHYCARDIA Multivitamins/Minerals (Certavite-Antioxidant Liquid) 15 ml NGT DAILY [facility] Last Admin: 01/26/20 10:39 Dose: 15 ml Documented by: Trazodone HCl (Desyrel -) 50 mg NGT HS [facility] Last Admin: 01/25/20 23:22 Dose: 50 mg Documented by: - Objective Vital Signs: Vital Signs Temperature 97.7 F 01/27/20 06:00 Pulse Rate 84 01/27/20 06:00 Respiratory Rate 16 01/27/20 12:21 Blood Pressure 126/83 01/27/20 06:00 O2 Sat by Pulse Oximetry (%) 94 L 01/27/20 08:58 Constitutional: Yes: Calm Eyes: Yes: Conjunctiva Clear HENT: Yes: Atraumatic Neck: Yes: Supple Cardiovascular: Yes: S1, S2 Respiratory: Yes: Mechanically Ventilated Gastrointestinal: Yes: Normal Bowel Sounds, Soft Genitourinary: Yes: WNL Musculoskeletal: Yes: WNL Edema: No Neurological: Yes: Oriented Psychiatric: Yes: Oriented Labs: CBC, BMP 01/27/20 07:30 01/27/20 07:30 INR, PTT INR 1.23 (0.83-1.09) H 01/10/20 13:50 Problem List - Problems (1) Anasarca Code(s): R60.1 - GENERALIZED EDEMA (2) Congestive heart failure (CHF) Code(s): I50.9 - HEART FAILURE, UNSPECIFIED Qualifiers: Qualified Code(s): I50.33 - Acute on chronic diastolic (congestive) heart failure (3) Acute kidney injury Code(s): N17.9 - ACUTE KIDNEY FAILURE, UNSPECIFIED Assessment/Plan Current Medications Generic Name Dose Route Start Last Admin Trade Name Freq PRN Reason Stop Dose Admin Acetaminophen 650 mg 01/24/20 17:28 Tylenol Oral Solution - PO Q4H PRN PAIN Acetaminophen 1,000 mg 01/26/20 20:05 Ofirmev Injection - IVPB 01/27/20 20:05 Q6H PRN FEVER OR PAIN Amino Acids 30 ml 01/12/20 08:00 01/26/20 09:00 Prosource No Carb Liquid Pkt NGT 30 ml DAILY@0800 L[facility]TE Administration Apixaban 5 mg 01/12/20 11:30 01/26/20 10:39 Eliquis - NGT 5 mg BID [facility] Administration Ascorbic Acid 1,000 mg 01/12/20 11:30 01/26/20 10:40 Vitamin C Oral Solution - NGT 1,000 mg DAILY [facility] Administration Buspirone HCl 5 mg 01/25/20 22:00 01/26/20 10:39 Buspar - GT 5 mg BID [facility] Administration Chlorhexidine Gluconate 15 ml 01/12/20 10:00 01/27/20 11:12 Peridex - MM 15 ml BID [facility] Administration Enoxaparin Sodium 100 mg 01/26/20 22:00 01/27/20 11:13 Lovenox - SQ 100 mg BID [facility] Administration Escitalopram Oxalate 10 mg 01/25/20 10:00 01/26/20 10:39 Lexapro Oral Solution - GT 10 mg DAILY [facility] Administration Famotidine 20 mg 01/25/20 10:00 01/26/20 10:40 Pepcid PEG 20 mg DAILY [facility] Administration Vancomycin HCl 1,000 mg in 250 mls @ 250 mls/hr 01/14/20 22:00 01/27/20 13:05 Vancomycin (Pre-Docked) IVPB Not Given BID [facility] Protocol Potassium Chloride 40 meq/ 1,020 mls @ 84 mls/hr 01/26/20 14:45 01/27/20 06:21 Amino Acids IVPB 84 mls/hr Q12H [facility] Administration Famotidine/Sodium Chloride 20 mg in 50 mls @ 100 mls/hr 01/27/20 10:00 01/27/20 11:13 Pepcid 20 Mg Premixed Ivpb - IVPB 100 mls/hr DAILY [facility] Administration Metoprolol Tartrate 25 mg 01/12/20 11:26 01/26/20 10:39 Lopressor - NGT 25 mg BID [facility] Administration Metoprolol Tartrate 5 mg 01/26/20 20:08 Lopressor Injection - IVPB Q4H PRN TACHYCARDIA Multivitamins/Minerals 15 ml 01/12/20 11:32 01/26/20 10:39 Certavite-Antioxidant Liquid NGT 15 ml DAILY [facility] Administration Trazodone HCl 50 mg 01/25/20 22:00 01/25/20 23:22 Desyrel - NGT 50 mg HS [facility] Administration Impression 1. MONIE 2. CHF acute 3. acute resp failure requiring intubation 4. atrial fibrillation 5. hx of htn 6. obesity 7. chronic smoker 8. hypokalemia 9. partial sbo Plan - cont clinimix while npo - surgery follow up - serial abd exams, abd is improved today - recall surgery for follow up - will hold off lasix - cont vent support
[2020-01-27] MEDS ORDERED: PT OWN MED DRAWER 7, Y5N ONE (23:50)
[2020-01-28] MEDS: POTASSIUM CHLORIDE 40 MEQ in AMINO ACIDS 4.25%/D5W 1,000 ML IVPB SCH ×3 (02:53→18:58)
[2020-01-28 07:49] LABS: RBC 4.45 M/mm3 (4.00-5.60); WHITE BLOOD COUNT 6.2 K/mm3 (4.0-10.0)
[2020-01-28 07:50] LABS: HEMATOCRIT 36.9 % (35.4-49); HEMOGLOBIN 11.1 GM/dL (11.7-16.9)
[2020-01-28 07:52] LABS: MCHC 30.1 g/dl (32.0-35.9); PLATELET COUNT 185 K/MM3 (134-434); RDW 24.9 % (11.9-15.9)
[2020-01-28 07:53] LABS: LYMPH % 15.9 % (8-40); MEAN PLT VOLUME 8.1 fl (7.5-11.1); MONO % 12.3 % (3.8-10.2); NEUT % 65.2 % (42.8-82.8)
[2020-01-28 07:54] LABS: BASO % 0.7 % (0-2.0); EOS % 5.9 % (0-4.5)
[2020-01-28 08:06] LABS: ALBUMIN 2.6 g/dl (3.4-5.0); BILIRUBIN,TOTAL 1.2 mg/dL (0.2-1); BLOOD UREA NITROGEN 18.3 mg/dL (7-18); CALCIUM 8.7 mg/dL (8.5-10.1); CREATININE 0.6 mg/dL (0.55-1.3); POTASSIUM 3.8 mmol/L (3.5-5.1); TOT PROT 6.1 g/dl (6.4-8.2)
--- NOTE | 2020-01-28 09:31 | PN ---
Progress Note, Physician Chief Complaint: Acute on Chronic Hypoxic and Hypercapneic Respiratory Failure s/p Tracheostomy Pneumonia ARDS Septic Shock Acute on Chronic Diastolic Heart Failure Pulmonary HTN Paroxysmal Atrial Fibrillation CAD Acute Kidney Injury COPD JUANA/OHS SBO History of Present Illness: NAD, alert and oriented On IV Vanco day #14, to complete 14 days in total- d/c after tonight's dose AXR yesterday high grade SBO, repeat AXR is pending NGT to low wall suction TF on hold Denies any pain - Current Medication List Current Medications: Active Medications Acetaminophen (Tylenol Oral Solution -) 650 mg PO Q4H PRN PRN Reason: PAIN Amino Acids (Prosource No Carb Liquid Pkt) 30 ml NGT DAILY@0800 [facility] Last Admin: 01/26/20 09:00 Dose: 30 ml Documented by: Apixaban (Eliquis -) 5 mg NGT BID [facility] Last Admin: 01/26/20 10:39 Dose: 5 mg Documented by: Ascorbic Acid (Vitamin C Oral Solution -) 1,000 mg NGT DAILY [facility] Last Admin: 01/26/20 10:40 Dose: 1,000 mg Documented by: Buspirone HCl (Buspar -) 5 mg GT BID [facility] Last Admin: 01/26/20 10:39 Dose: 5 mg Documented by: Chlorhexidine Gluconate (Peridex -) 15 ml MM BID [facility] Last Admin: 01/27/20 23:52 Dose: 15 ml Documented by: Enoxaparin Sodium (Lovenox -) 100 mg SQ BID [facility] Last Admin: 01/27/20 23:52 Dose: 100 mg Documented by: Escitalopram Oxalate (Lexapro Oral Solution -) 10 mg GT DAILY [facility] Last Admin: 01/26/20 10:39 Dose: 10 mg Documented by: Famotidine (Pepcid) 20 mg PEG DAILY [facility] Last Admin: 01/26/20 10:40 Dose: 20 mg Documented by: Vancomycin HCl (Vancomycin (Pre-Docked)) 1,000 mg in 250 mls @ 250 mls/hr IVPB BID [facility]; Protocol Last Admin: 01/27/20 23:52 Dose: 250 mls/hr Documented by: Potassium Chloride 40 meq/ (Amino Acids) 1,020 mls @ 84 mls/hr IVPB Q12H [facility] Last Admin: 01/28/20 02:53 Dose: 84 mls/hr Documented by: Famotidine/Sodium Chloride (Pepcid 20 Mg Premixed Ivpb -) 20 mg in 50 mls @ 100 mls/hr IVPB DAILY [facility] Last Admin: 01/27/20 11:13 Dose: 100 mls/hr Documented by: Metoprolol Tartrate (Lopressor -) 25 mg NGT BID [facility] Last Admin: 01/26/20 10:39 Dose: 25 mg Documented by: Metoprolol Tartrate (Lopressor Injection -) 5 mg IVPB Q4H PRN PRN Reason: TACHYCARDIA Multivitamins/Minerals (Certavite-Antioxidant Liquid) 15 ml NGT DAILY [facility] Last Admin: 01/26/20 10:39 Dose: 15 ml Documented by: Trazodone HCl (Desyrel -) 50 mg NGT HS [facility] Last Admin: 01/25/20 23:22 Dose: 50 mg Documented by: - Objective Vital Signs: Vital Signs Temperature 99.5 F 01/28/20 06:37 Pulse Rate 79 01/28/20 08:00 Respiratory Rate 12 01/28/20 08:00 Blood Pressure 149/86 01/28/20 06:37 O2 Sat by Pulse Oximetry (%) 99 01/28/20 08:00 Constitutional: Yes: Well Nourished, No Distress, Calm, Obese Cardiovascular: Yes: Regular Rate and Rhythm Respiratory: Yes: Regular, CTA Bilaterally Gastrointestinal: Yes: Soft, Abdomen, Obese, Hypoactive Bowel Sounds Genitourinary: Yes: Incontinence Musculoskeletal: Yes: WNL Extremities: Yes: WNL Edema: No Peripheral Pulses WNL: Yes Neurological: Yes: Alert, Oriented Psychiatric: Yes: Alert, Oriented Labs: CBC, BMP 01/28/20 07:23 01/28/20 07:23 INR, PTT INR 1.23 (0.83-1.09) H 01/10/20 13:50 Problem List - Problems (1) SBO (small bowel obstruction) Assessment/Plan: -AXR-high grade SBO -Daily serial Xrays -Keep Pt NPO -NGT to low wall suction -Clinimix Problems reviewed: Yes Code(s): K56.609 - UNSP INTESTNL OBST, UNSP TO PARTIAL VERSUS COMPLETE OBST (2) Morbid obesity Problems reviewed: Yes Code(s): E66.01 - MORBID (SEVERE) OBESITY DUE TO EXCESS CALORIES (3) Pneumonia Assessment/Plan: -SC:MRSA -On IV Vanco day 14-D/c after tonight's dose -ID on board -Afebrile Problems reviewed: Yes Code(s): J18.9 - PNEUMONIA, UNSPECIFIED ORGANISM Qualifiers: Pneumonia type: due to unspecified organism Laterality: right Lung location: lower lobe of lung Qualified Code(s): J18.9 - Pneumonia, unspecified organism (4) Atrial fibrillation Assessment/Plan: -Chronic, rate controlled -eliquis 5 mg GT BID on hold -Started on Lovenox 100 mg BID Problems reviewed: Yes Code(s): I48.91 - UNSPECIFIED ATRIAL FIBRILLATION Qualifiers: Atrial fibrillation type: paroxysmal Qualified Code(s): I48.0 - Paroxysmal atrial fibrillation (5) Respiratory failure with hypoxia and hypercapnia Assessment/Plan: -Pulmonary on board -S/P trach -Mech vent -Wean as tolerated -SNF upon d/c -MBS no aspiration -Encouraged daily PMV use -Trial of Trach collar today Problems reviewed: Yes Code(s): J96.91 - RESPIRATORY FAILURE, UNSPECIFIED WITH HYPOXIA; J96.92 - RESPIRATORY FAILURE, UNSPECIFIED WITH HYPERCAPNIA Qualifiers: Chronicity: acute on chronic Qualified Code(s): J96.21 - Acute and chronic respiratory failure with hypoxia; J96.22 - Acute and chronic respiratory failure with hypercapnia (6) Hypokalemia Assessment/Plan: -Resolved -Nephrology on board -Monitor trend -Continue clinimix Problems reviewed: Yes Code(s): E87.6 - HYPOKALEMIA (7) MRSA (methicillin resistant staphylococcus aureus) pneumonia Problems reviewed: Yes Code(s): J15.212 - PNEUMONIA DUE TO METHICILLIN RESISTANT STAPHYLOCOCCUS AUREUS (8) Anxiety Assessment/Plan: -Hold SSRI-lexapro 10 mg GT daily -Hold Buspirone 5 mg GT BID PRN for breakthrough -D/C Ativan PRN- making pt too lethargic Problems reviewed: Yes Code(s): F41.9 - ANXIETY DISORDER, UNSPECIFIED Assessment/Plan See problem list
[2020-01-28] MEDS: FAMOTIDINE 20 MG/50 ML IVPB 20 MG/50 ML MG IVPB SCH (10:25)
[2020-01-28] MEDS: ENOXAPARIN NA (PORCINE) 100 MG/1 ML DISP.SYRIN SQ SCH ×2 (10:25→21:20)
--- NOTE | 2020-01-28 10:37 | PN ---
Progress Note, Physician History of Present Illness: stable no new issues - Current Medication List Current Medications: Active Medications Acetaminophen (Tylenol Oral Solution -) 650 mg PO Q4H PRN PRN Reason: PAIN Amino Acids (Prosource No Carb Liquid Pkt) 30 ml NGT DAILY@0800 [facility] Last Admin: 01/26/20 09:00 Dose: 30 ml Documented by: Apixaban (Eliquis -) 5 mg NGT BID [facility] Last Admin: 01/26/20 10:39 Dose: 5 mg Documented by: Ascorbic Acid (Vitamin C Oral Solution -) 1,000 mg NGT DAILY [facility] Last Admin: 01/26/20 10:40 Dose: 1,000 mg Documented by: Buspirone HCl (Buspar -) 5 mg GT BID [facility] Last Admin: 01/26/20 10:39 Dose: 5 mg Documented by: Chlorhexidine Gluconate (Peridex -) 15 ml MM BID [facility] Last Admin: 01/27/20 23:52 Dose: 15 ml Documented by: Enoxaparin Sodium (Lovenox -) 100 mg SQ BID [facility] Last Admin: 01/27/20 23:52 Dose: 100 mg Documented by: Escitalopram Oxalate (Lexapro Oral Solution -) 10 mg GT DAILY [facility] Last Admin: 01/26/20 10:39 Dose: 10 mg Documented by: Famotidine (Pepcid) 20 mg PEG DAILY [facility] Last Admin: 01/26/20 10:40 Dose: 20 mg Documented by: Vancomycin HCl (Vancomycin (Pre-Docked)) 1,000 mg in 250 mls @ 250 mls/hr IVPB BID [facility]; Protocol Last Admin: 01/27/20 23:52 Dose: 250 mls/hr Documented by: Potassium Chloride 40 meq/ (Amino Acids) 1,020 mls @ 84 mls/hr IVPB Q12H [facility] Last Admin: 01/28/20 02:53 Dose: 84 mls/hr Documented by: Famotidine/Sodium Chloride (Pepcid 20 Mg Premixed Ivpb -) 20 mg in 50 mls @ 100 mls/hr IVPB DAILY [facility] Last Admin: 01/27/20 11:13 Dose: 100 mls/hr Documented by: Metoprolol Tartrate (Lopressor -) 25 mg NGT BID [facility] Last Admin: 01/26/20 10:39 Dose: 25 mg Documented by: Metoprolol Tartrate (Lopressor Injection -) 5 mg IVPB Q4H PRN PRN Reason: TACHYCARDIA Multivitamins/Minerals (Certavite-Antioxidant Liquid) 15 ml NGT DAILY [facility] Last Admin: 01/26/20 10:39 Dose: 15 ml Documented by: Trazodone HCl (Desyrel -) 50 mg NGT HS [facility] Last Admin: 01/25/20 23:22 Dose: 50 mg Documented by: - Objective Vital Signs: Vital Signs Temperature 99.5 F 01/28/20 06:37 Pulse Rate 79 01/28/20 08:00 Respiratory Rate 12 01/28/20 08:00 Blood Pressure 149/86 01/28/20 06:37 O2 Sat by Pulse Oximetry (%) 99 01/28/20 08:00 Constitutional: Yes: No Distress, Calm Cardiovascular: Yes: S1, S2 Respiratory: Yes: Mechanically Ventilated, Other (s/p trach) Gastrointestinal: Yes: Normal Bowel Sounds, Soft Musculoskeletal: Yes: WNL Extremities: Yes: WNL Neurological: Yes: Alert, Oriented Psychiatric: Yes: Alert, Oriented Labs: CBC, BMP 01/28/20 07:23 01/28/20 07:23 INR, PTT INR 1.23 (0.83-1.09) H 01/10/20 13:50 Assessment/Plan Problem List - Problems (1) Edema of scrotum Code(s): N50.89 - OTHER SPECIFIED DISORDERS OF THE MALE GENITAL ORGANS (2) Morbid obesity Code(s): E66.01 - MORBID (SEVERE) OBESITY DUE TO EXCESS CALORIES (3) Acute on chronic diastolic (congestive) heart failure Code(s): I50.33 - ACUTE ON CHRONIC DIASTOLIC (CONGESTIVE) HEART FAILURE (4) Acute respiratory failure requiring reintubation Code(s): J96.00 - ACUTE RESPIRATORY FAILURE, UNSP W HYPOXIA OR HYPERCAPNIA (5) Afib Code(s): I48.91 - UNSPECIFIED ATRIAL FIBRILLATION Qualifiers: Atrial fibrillation type: paroxysmal Qualified Code(s): I48.0 - Paroxysmal atrial fibrillation Assessment/Plan Acute respiratory failure s/p trach on MV PNA Ileus/ pseudoobstruction CHF b/l LE Cellulitis b/l Hydrocele MONIE Paroxysmal AFIB COPD JUANA CAD HTN HLD plan continue current mgmt rest as per the team will check vanco level
[2020-01-28] MEDS: VANCOMYCIN 1 GRAM (PRE-DOCKED) 1,000 MG/250 ML BAG IVPB SCH ×3 (10:39→21:19)
[2020-01-28] MEDS: CHLORHEXIDINE GLUCONATE 0.12% 15ML CUP MM SCH ×2 (10:39→21:20)
--- NOTE | 2020-01-28 11:17 | PN ---
Progress Note, Physician History of Present Illness: 64 year old male with a past medical history of HTN, HLD, JUANA (not using CPAP), COPD, GERD, systolic congestive heart failure, paroxysmal atrial fibrillation (on Eliquis, s/p cardioversion 11/2016) who presented with 3 weeks of gradual onset anasarca, scrotal swelling and mild shortness of breath worse on exertion. CXR s/f diffused bilat opacities with c/f PNA +/-fluid overload, ?bilateral lower extremity cellulitis and bilateral hydrocele, and respiratory acidosis is admitted for Acute hypercapneic respiratory failure and Acute CHF exacerbation, intubated for progressive hypercarbic respiratory failure, decreased mental status on BiPAP. 01/11/2020 s/p percutaneous tracheostomy, awake off sedation. Vented on volume assist control with 40% FiO2, PEEP 5. Placed on CPAP/PS. 01/12/2020 Off sedation on vent 01/12: no acute cardiac events; had elevated temp 01/13: No significant change01/14: No cardiac events 01/15: Vented, awake. Currently on SIMV RR 8 PS 10. Abd slightly distended 01/16: Vented awake on SIMV RR 8 PS 10. No fevers. 01/17: Ileus noted on abd/pelvic CT, interactive on vent 01/18: Small BM, NGT inserted 01/22: Improving AXR, patient remains on a ventilator via tracheostomy, awake and alert in no distress 01/24: Vent wean on trach, awake tolerating enteral feeds, ileus resolving 01/25: Vent wean on trach, no acute changes 01/27: Recurrent pSBO, starting on TPN per surgery - Current Medication List Current Medications: Active Medications Acetaminophen (Tylenol Oral Solution -) 650 mg PO Q4H PRN PRN Reason: PAIN Amino Acids (Prosource No Carb Liquid Pkt) 30 ml NGT DAILY@0800 [facility] Last Admin: 01/26/20 09:00 Dose: 30 ml Documented by: Apixaban (Eliquis -) 5 mg NGT BID [facility] Last Admin: 01/26/20 10:39 Dose: 5 mg Documented by: Ascorbic Acid (Vitamin C Oral Solution -) 1,000 mg NGT DAILY [facility] Last Admin: 01/26/20 10:40 Dose: 1,000 mg Documented by: Buspirone HCl (Buspar -) 5 mg GT BID [facility] Last Admin: 01/26/20 10:39 Dose: 5 mg Documented by: Chlorhexidine Gluconate (Peridex -) 15 ml MM BID [facility] Last Admin: 01/28/20 10:39 Dose: 15 ml Documented by: Enoxaparin Sodium (Lovenox -) 100 mg SQ BID [facility] Last Admin: 01/28/20 10:25 Dose: 100 mg Documented by: Escitalopram Oxalate (Lexapro Oral Solution -) 10 mg GT DAILY [facility] Last Admin: 01/26/20 10:39 Dose: 10 mg Documented by: Famotidine (Pepcid) 20 mg PEG DAILY [facility] Last Admin: 01/26/20 10:40 Dose: 20 mg Documented by: Vancomycin HCl (Vancomycin (Pre-Docked)) 1,000 mg in 250 mls @ 250 mls/hr IVPB BID [facility]; Protocol Last Admin: 01/28/20 10:46 Dose: Not Given Documented by: Potassium Chloride 40 meq/ (Amino Acids) 1,020 mls @ 84 mls/hr IVPB Q12H [facility] Last Admin: 01/28/20 02:53 Dose: 84 mls/hr Documented by: Famotidine/Sodium Chloride (Pepcid 20 Mg Premixed Ivpb -) 20 mg in 50 mls @ 100 mls/hr IVPB DAILY [facility] Last Admin: 01/28/20 10:25 Dose: 100 mls/hr Documented by: Metoprolol Tartrate (Lopressor -) 25 mg NGT BID [facility] Last Admin: 01/26/20 10:39 Dose: 25 mg Documented by: Metoprolol Tartrate (Lopressor Injection -) 5 mg IVPB Q4H PRN PRN Reason: TACHYCARDIA Multivitamins/Minerals (Certavite-Antioxidant Liquid) 15 ml NGT DAILY [facility] Last Admin: 01/26/20 10:39 Dose: 15 ml Documented by: Trazodone HCl (Desyrel -) 50 mg NGT HS [facility] Last Admin: 01/25/20 23:22 Dose: 50 mg Documented by: - Objective Vital Signs: Vital Signs Temperature 99.5 F 01/28/20 06:37 Pulse Rate 79 01/28/20 08:00 Respiratory Rate 12 01/28/20 08:00 Blood Pressure 149/86 01/28/20 06:37 O2 Sat by Pulse Oximetry (%) 99 01/28/20 08:00 Constitutional: Yes: No Distress, Calm HENT: Yes: Other (TC) Cardiovascular: Yes: Regular Rate and Rhythm Respiratory: Yes: Diminished, SOB Gastrointestinal: Yes: Soft, Hypoactive Bowel Sounds Edema: No Integumentary: Yes: Venous Stasis Changes Labs: CBC, BMP 01/28/20 07:23 01/28/20 07:23 INR, PTT INR 1.23 (0.83-1.09) H 01/10/20 13:50 Problem List - Problems (1) Congestive heart failure (CHF) Code(s): I50.9 - HEART FAILURE, UNSPECIFIED Qualifiers: Heart failure type: diastolic Heart failure chronicity: acute on chronic Qualified Code(s): I50.33 - Acute on chronic diastolic (congestive) heart failure (2) Pneumonia Code(s): J18.9 - PNEUMONIA, UNSPECIFIED ORGANISM Qualifiers: Pneumonia type: due to unspecified organism Laterality: right Lung location: lower lobe of lung Qualified Code(s): J18.9 - Pneumonia, unspecified organism (3) Acute on chronic diastolic (congestive) heart failure Code(s): I50.33 - ACUTE ON CHRONIC DIASTOLIC (CONGESTIVE) HEART FAILURE (4) Acute respiratory failure with hypoxia and hypercarbia Code(s): J96.01 - ACUTE RESPIRATORY FAILURE WITH HYPOXIA; J96.02 - ACUTE RESPIRATORY FAILURE WITH HYPERCAPNIA (5) Atrial fibrillation Code(s): I48.91 - UNSPECIFIED ATRIAL FIBRILLATION Qualifiers: Atrial fibrillation type: paroxysmal Qualified Code(s): I48.0 - Paroxysmal atrial fibrillation (6) COPD (chronic obstructive pulmonary disease) Code(s): J44.9 - CHRONIC OBSTRUCTIVE PULMONARY DISEASE, UNSPECIFIED Qualifiers: COPD type: unspecified COPD Qualified Code(s): J44.9 - Chronic obstructive pulmonary disease, unspecified (7) Hypertension Code(s): I10 - ESSENTIAL (PRIMARY) HYPERTENSION Qualifiers: Hypertension type: essential hypertension Qualified Code(s): I10 - Essential (primary) hypertension (8) Pleural effusion Code(s): J90 - PLEURAL EFFUSION, NOT ELSEWHERE CLASSIFIED Assessment/Plan 10/26/2017 Normal LV size with mild LVH, normal LV fxn, normal RV size and fxn, mild LAE, mild MR, mild-mod TR, mild NV, RVSP 43 mmHg 11/19/2016 Lexiscan Myoview: Apical ischemia, LVEF 45-52% 10/06/2016 Echocardiography revealed mild to moderate LV systolic dysfunction, moderate TR, RVSP of 30-40 mmHg 1. Acute on chronic Hypoxic and Hypercapneic Respiratory Failure with tracheostomy 2. Acute on chronic LV Diastolic Heart Failure with pleural effusion 3. Pneumonia, ARDS (septic shock) resolved 4. Paroxysmal atrial fibrillation with periods of rapid ventricular response post DCCV, [id number] score of 2 5. Obstructive Sleep Apnea/Obesity 6. HTN/HCVD 7. Hypercholesterolemia 8. CAD, angina pectoris 9. Bilateral cellulitis with h/o abscess s/p debridement 10. Bilateral hydrocele 11. Recurrent ileus due to underlying co morbid conditions PLAN: 1. Vent support via tracheostomy, wean FIO2 and PEEP to maintain saO2>90%, PMV as tolerated 2. DVT and GI prophylaxis and enteral feeds held for emesis 3. Diuretics held with monitor renal function and electrolytes 4. Continue Lopressor 25 mg BID and Eliquis 5 mg BID (via NGT) 5. Complete vanco course
--- NOTE | 2020-01-28 11:33 | PN ---
Progress Note (short form) - Note Progress Note: PULMONARY DAY #43 HOSPITALIZATION AWAKE/ALERT/LOW GRADE TEMP IMV 6/350/40/5 PMV tolerating well HAS ALSO TOLERATED CPAP REMAINS ON NG SUCTION FOR SBO RESULTS OF MBS NOTED Gen: vented, sleeping Heart: RRR Lung: scattered rhonchi Abd: softly distended, nontender Ext: no edema LABS/MEDS/NOTES/IMAGES REVIEWED A/P Acute on Chronic Hypoxic and Hypercapneic Respiratory Failure s/p Tracheostomy Pneumonia ARDS resolved Septic Shock resolved Acute on Chronic Diastolic Heart Failure Pulmonary HTN Paroxysmal Atrial Fibrillation CAD Acute Kidney Injury Likely COPD JUANA/OHS HTN Hypercholesterolemia - Will attempt trach collar today - ng drainage to continue - antibiotics per ID - rate control - continue anticoagulation - titrate FiO2, PEEP to keep SpO2 >90% - monitor urine output, creatinine - DVT/GI prophylaxis Barb DELACRUZ MD
--- NOTE | 2020-01-28 14:01 | PN ---
Progress Note, Physician History of Present Illness: Pt seen and examined at bedside. He is on trache collar. He is agitated and asking to go home. - Current Medication List Current Medications: Active Medications Acetaminophen (Tylenol Oral Solution -) 650 mg PO Q4H PRN PRN Reason: PAIN Amino Acids (Prosource No Carb Liquid Pkt) 30 ml NGT DAILY@0800 [facility] Last Admin: 01/26/20 09:00 Dose: 30 ml Documented by: Apixaban (Eliquis -) 5 mg NGT BID [facility] Last Admin: 01/26/20 10:39 Dose: 5 mg Documented by: Ascorbic Acid (Vitamin C Oral Solution -) 1,000 mg NGT DAILY [facility] Last Admin: 01/26/20 10:40 Dose: 1,000 mg Documented by: Buspirone HCl (Buspar -) 5 mg GT BID [facility] Last Admin: 01/26/20 10:39 Dose: 5 mg Documented by: Chlorhexidine Gluconate (Peridex -) 15 ml MM BID [facility] Last Admin: 01/28/20 10:39 Dose: 15 ml Documented by: Enoxaparin Sodium (Lovenox -) 100 mg SQ BID [facility] Last Admin: 01/28/20 10:25 Dose: 100 mg Documented by: Escitalopram Oxalate (Lexapro Oral Solution -) 10 mg GT DAILY [facility] Last Admin: 01/26/20 10:39 Dose: 10 mg Documented by: Famotidine (Pepcid) 20 mg PEG DAILY [facility] Last Admin: 01/26/20 10:40 Dose: 20 mg Documented by: Vancomycin HCl (Vancomycin (Pre-Docked)) 1,000 mg in 250 mls @ 250 mls/hr IVPB BID [facility]; Protocol Last Admin: 01/28/20 10:46 Dose: Not Given Documented by: Potassium Chloride 40 meq/ (Amino Acids) 1,020 mls @ 84 mls/hr IVPB Q12H [facility] Last Admin: 01/28/20 02:53 Dose: 84 mls/hr Documented by: Famotidine/Sodium Chloride (Pepcid 20 Mg Premixed Ivpb -) 20 mg in 50 mls @ 100 mls/hr IVPB DAILY [facility] Last Admin: 01/28/20 10:25 Dose: 100 mls/hr Documented by: Metoprolol Tartrate (Lopressor -) 25 mg NGT BID [facility] Last Admin: 01/26/20 10:39 Dose: 25 mg Documented by: Metoprolol Tartrate (Lopressor Injection -) 5 mg IVPB Q4H PRN PRN Reason: TACHYCARDIA Multivitamins/Minerals (Certavite-Antioxidant Liquid) 15 ml NGT DAILY [facility] Last Admin: 01/26/20 10:39 Dose: 15 ml Documented by: Trazodone HCl (Desyrel -) 50 mg NGT HS [facility] Last Admin: 01/25/20 23:22 Dose: 50 mg Documented by: - Objective Vital Signs: Vital Signs Temperature 99.5 F 01/28/20 06:37 Pulse Rate 79 01/28/20 08:00 Respiratory Rate 22 H 01/28/20 11:35 Blood Pressure 149/86 01/28/20 06:37 O2 Sat by Pulse Oximetry (%) 98 01/28/20 11:35 Constitutional: Yes: Calm Eyes: Yes: Conjunctiva Clear HENT: Yes: Atraumatic Cardiovascular: Yes: S1, S2 Respiratory: Yes: Other (trache collar) Gastrointestinal: Yes: Normal Bowel Sounds, Soft Genitourinary: Yes: Incontinence Musculoskeletal: Yes: Muscle Weakness Edema: No Integumentary: Yes: Venous Stasis Changes Neurological: Yes: Oriented Psychiatric: Yes: Oriented Labs: CBC, BMP 01/28/20 07:23 01/28/20 07:23 INR, PTT INR 1.23 (0.83-1.09) H 01/10/20 13:50 Problem List - Problems (1) Anasarca Code(s): R60.1 - GENERALIZED EDEMA (2) Congestive heart failure (CHF) Code(s): I50.9 - HEART FAILURE, UNSPECIFIED Qualifiers: Heart failure type: diastolic Heart failure chronicity: acute on chronic Qualified Code(s): I50.33 - Acute on chronic diastolic (congestive) heart failure (3) Acute kidney injury Code(s): N17.9 - ACUTE KIDNEY FAILURE, UNSPECIFIED Assessment/Plan Current Medications Generic Name Dose Route Start Last Admin Trade Name Freq PRN Reason Stop Dose Admin Acetaminophen 650 mg 01/24/20 17:28 Tylenol Oral Solution - PO Q4H PRN PAIN Amino Acids 30 ml 01/12/20 08:00 01/26/20 09:00 Prosource No Carb Liquid Pkt NGT 30 ml DAILY@0800 [facility] Administration Apixaban 5 mg 01/12/20 11:30 01/26/20 10:39 Eliquis - NGT 5 mg BID LYNETTE Administration Ascorbic Acid 1,000 mg 01/12/20 11:30 01/26/20 10:40 Vitamin C Oral Solution - NGT 1,000 mg DAILY LYNETTE Administration Buspirone HCl 5 mg 01/25/20 22:00 01/26/20 10:39 Buspar - GT 5 mg BID LYNETTE Administration Chlorhexidine Gluconate 15 ml 01/12/20 10:00 01/28/20 10:39 Peridex - MM 15 ml BID LYNETTE Administration Enoxaparin Sodium 100 mg 01/26/20 22:00 01/28/20 10:25 Lovenox - SQ 100 mg BID LYNETTE Administration Escitalopram Oxalate 10 mg 01/25/20 10:00 01/26/20 10:39 Lexapro Oral Solution - GT 10 mg DAILY LYNETTE Administration Famotidine 20 mg 01/25/20 10:00 01/26/20 10:40 Pepcid PEG 20 mg DAILY LYNETTE Administration Vancomycin HCl 1,000 mg in 250 mls @ 250 mls/hr 01/14/20 22:00 01/28/20 10:46 Vancomycin (Pre-Docked) IVPB Not Given BID [facility] Protocol Potassium Chloride 40 meq/ 1,020 mls @ 84 mls/hr 01/26/20 14:45 01/28/20 02:53 Amino Acids IVPB 84 mls/hr Q12H LYNETTE Administration Famotidine/Sodium Chloride 20 mg in 50 mls @ 100 mls/hr 01/27/20 10:00 01/28/20 10:25 Pepcid 20 Mg Premixed Ivpb - IVPB 100 mls/hr DAILY LYNETTE Administration Metoprolol Tartrate 25 mg 01/12/20 11:26 01/26/20 10:39 Lopressor - NGT 25 mg BID LYNETTE Administration Metoprolol Tartrate 5 mg 01/26/20 20:08 Lopressor Injection - IVPB Q4H PRN TACHYCARDIA Multivitamins/Minerals 15 ml 01/12/20 11:32 01/26/20 10:39 Certavite-Antioxidant Liquid NGT 15 ml DAILY [facility]TE Administration Trazodone HCl 50 mg 01/25/20 22:00 01/25/20 23:22 Desyrel - NGT 50 mg HS LNYETTE Administration Impression 1. MONIE 2. CHF acute 3. acute resp failure requiring intubation 4. atrial fibrillation 5. hx of htn 6. obesity 7. chronic smoker 8. hypokalemia 9. partial sbo Plan - renal function stable - cont clinimix while npo - surgery follow up - pulm input appreciated - pt tolerating trache collar - will hold off lasix
[2020-01-28] MEDS ORDERED: PT OWN MED DRAWER 7, Y5N ONE (21:09)
[2020-01-29] MEDS: POTASSIUM CHLORIDE 40 MEQ in AMINO ACIDS 4.25%/D5W 1,000 ML IVPB SCH ×3 (02:40→14:23)
[2020-01-29 07:48] LABS: EOS % 6.7 % (0-4.5); HEMATOCRIT 36.2 % (35.4-49); HEMOGLOBIN 11.1 GM/dL (11.7-16.9); LYMPH % 16.4 % (8-40); MCH 25.7 pg (25.7-33.7); MCHC 30.7 g/dl (32.0-35.9); MEAN CELL VOLUME 83.6 fl (80-96); MEAN PLT VOLUME 8.5 fl (7.5-11.1); MONO % 14.4 % (3.8-10.2); NEUT % 61.5 % (42.8-82.8); PLATELET COUNT 198 K/MM3 (134-434); RBC 4.34 M/mm3 (4.00-5.60); RDW 24.2 % (11.9-15.9); WHITE BLOOD COUNT 5.6 K/mm3 (4.0-10.0)
[2020-01-29 08:11] LABS: POTASSIUM 3.8 mmol/L (3.5-5.1)
[2020-01-29 08:18] LABS: ALBUMIN 2.6 g/dl (3.4-5.0); BILIRUBIN,TOTAL 1.2 mg/dL (0.2-1); BLOOD UREA NITROGEN 18.8 mg/dL (7-18); CALCIUM 9.2 mg/dL (8.5-10.1); CREATININE 0.6 mg/dL (0.55-1.3); TOT PROT 6.1 g/dl (6.4-8.2)
--- NOTE | 2020-01-29 08:21 | PN ---
Progress Note, Physician Chief Complaint: Acute on Chronic Hypoxic and Hypercapneic Respiratory Failure s/p Tracheostomy Pneumonia ARDS Septic Shock Acute on Chronic Diastolic Heart Failure Pulmonary HTN Paroxysmal Atrial Fibrillation CAD Acute Kidney Injury COPD JUANA/OHS SBO History of Present Illness: NAD, alert and oriented On IV Vanco day #14, to complete 14 days in total- d/c after tonight's dose AXR yesterday high grade SBO, repeat AXR is pending NGT to low wall suction TF on hold Denies any pain Tolerated T/C yesterday well - Current Medication List Current Medications: Active Medications Acetaminophen (Tylenol Oral Solution -) 650 mg PO Q4H PRN PRN Reason: PAIN Amino Acids (Prosource No Carb Liquid Pkt) 30 ml NGT DAILY@0800 [facility] Last Admin: 01/26/20 09:00 Dose: 30 ml Documented by: Apixaban (Eliquis -) 5 mg NGT BID [facility] Last Admin: 01/26/20 10:39 Dose: 5 mg Documented by: Ascorbic Acid (Vitamin C Oral Solution -) 1,000 mg NGT DAILY [facility] Last Admin: 01/26/20 10:40 Dose: 1,000 mg Documented by: Buspirone HCl (Buspar -) 5 mg GT BID [facility] Last Admin: 01/26/20 10:39 Dose: 5 mg Documented by: Chlorhexidine Gluconate (Peridex -) 15 ml MM BID [facility] Last Admin: 01/28/20 21:20 Dose: 15 ml Documented by: Enoxaparin Sodium (Lovenox -) 100 mg SQ BID [facility] Last Admin: 01/28/20 21:20 Dose: 100 mg Documented by: Escitalopram Oxalate (Lexapro Oral Solution -) 10 mg GT DAILY [facility] Last Admin: 01/26/20 10:39 Dose: 10 mg Documented by: Famotidine (Pepcid) 20 mg PEG DAILY [facility] Last Admin: 01/26/20 10:40 Dose: 20 mg Documented by: Vancomycin HCl (Vancomycin (Pre-Docked)) 1,000 mg in 250 mls @ 250 mls/hr IVPB BID [facility]; Protocol Last Admin: 01/28/20 21:19 Dose: 250 mls/hr Documented by: Potassium Chloride 40 meq/ (Amino Acids) 1,020 mls @ 84 mls/hr IVPB Q12H [facility] Last Admin: 01/29/20 02:40 Dose: Not Given Documented by: Famotidine/Sodium Chloride (Pepcid 20 Mg Premixed Ivpb -) 20 mg in 50 mls @ 100 mls/hr IVPB DAILY [facility] Last Admin: 01/28/20 10:25 Dose: 100 mls/hr Documented by: Metoprolol Tartrate (Lopressor -) 25 mg NGT BID [facility] Last Admin: 01/26/20 10:39 Dose: 25 mg Documented by: Metoprolol Tartrate (Lopressor Injection -) 5 mg IVPB Q4H PRN PRN Reason: TACHYCARDIA Multivitamins/Minerals (Certavite-Antioxidant Liquid) 15 ml NGT DAILY [facility] Last Admin: 01/26/20 10:39 Dose: 15 ml Documented by: Trazodone HCl (Desyrel -) 50 mg NGT HS [facility] Last Admin: 01/25/20 23:22 Dose: 50 mg Documented by: - Objective Vital Signs: Vital Signs Temperature 98.3 F 01/29/20 05:50 Pulse Rate 87 01/29/20 05:50 Respiratory Rate 21 H 01/29/20 05:50 Blood Pressure 137/51 L 01/29/20 05:50 O2 Sat by Pulse Oximetry (%) 96 01/29/20 05:50 Constitutional: Yes: Well Nourished, No Distress, Calm, Obese Cardiovascular: Yes: Regular Rate and Rhythm Respiratory: Yes: Regular, CTA Bilaterally Gastrointestinal: Yes: Soft, Abdomen, Obese, Distention (mild), Hypoactive Bowel Sounds Genitourinary: Yes: Incontinence Musculoskeletal: Yes: WNL Extremities: Yes: WNL Edema: No Peripheral Pulses WNL: Yes Neurological: Yes: Alert, Oriented Psychiatric: Yes: Alert, Oriented Labs: CBC, BMP 01/29/20 07:00 01/29/20 07:00 INR, PTT INR 1.23 (0.83-1.09) H 01/10/20 13:50 Problem List - Problems (1) SBO (small bowel obstruction) Assessment/Plan: -AXR-high grade SBO -Daily serial Xrays -Keep Pt NPO -NGT to low wall suction -Clinimix Problems reviewed: Yes Code(s): K56.609 - UNSP INTESTNL OBST, UNSP TO PARTIAL VERSUS COMPLETE OBST (2) Morbid obesity Problems reviewed: Yes Code(s): E66.01 - MORBID (SEVERE) OBESITY DUE TO EXCESS CALORIES (3) Pneumonia Assessment/Plan: -SC:MRSA -D/C Vanco, monitor off abx -ID on board -Afebrile Problems reviewed: Yes Code(s): J18.9 - PNEUMONIA, UNSPECIFIED ORGANISM Qualifiers: Pneumonia type: due to unspecified organism Laterality: right Lung location: lower lobe of lung Qualified Code(s): J18.9 - Pneumonia, unspecified organism (4) Atrial fibrillation Assessment/Plan: -Chronic, rate controlled -eliquis 5 mg GT BID on hold -Started on Lovenox 100 mg BID Problems reviewed: Yes Code(s): I48.91 - UNSPECIFIED ATRIAL FIBRILLATION Qualifiers: Atrial fibrillation type: paroxysmal Qualified Code(s): I48.0 - Paroxysmal atrial fibrillation (5) Respiratory failure with hypoxia and hypercapnia Assessment/Plan: -Pulmonary on board -S/P trach -Mech vent -Wean as tolerated -SNF upon d/c -MBS no aspiration -Encouraged daily PMV use -Trial of Trach collar -keep it overnight if tolerates Problems reviewed: Yes Code(s): J96.91 - RESPIRATORY FAILURE, UNSPECIFIED WITH HYPOXIA; J96.92 - RESPIRATORY FAILURE, UNSPECIFIED WITH HYPERCAPNIA Qualifiers: Chronicity: acute on chronic Qualified Code(s): J96.21 - Acute and chronic respiratory failure with hypoxia; J96.22 - Acute and chronic respiratory failure with hypercapnia (6) Hypokalemia Assessment/Plan: -Resolved -Nephrology on board -Monitor trend -Continue clinimix Problems reviewed: Yes Code(s): E87.6 - HYPOKALEMIA (7) MRSA (methicillin resistant staphylococcus aureus) pneumonia Problems reviewed: Yes Code(s): J15.212 - PNEUMONIA DUE TO METHICILLIN RESISTANT STAPHYLOCOCCUS AUREUS (8) Anxiety Assessment/Plan: -Hold SSRI-lexapro 10 mg GT daily -Hold Buspirone 5 mg GT BID PRN for breakthrough -D/C Ativan PRN- making pt too lethargic Problems reviewed: Yes Code(s): F41.9 - ANXIETY DISORDER, UNSPECIFIED Assessment/Plan See problem list
[2020-01-29] MEDS: ENOXAPARIN NA (PORCINE) 100 MG/1 ML DISP.SYRIN SQ SCH ×2 (09:40→21:25)
[2020-01-29] MEDS: VANCOMYCIN 1 GRAM (PRE-DOCKED) 1,000 MG/250 ML BAG IVPB SCH (09:41)
[2020-01-29] MEDS: CHLORHEXIDINE GLUCONATE 0.12% 15ML CUP MM SCH ×2 (09:41→21:24)
[2020-01-29] MEDS: FAMOTIDINE 20 MG/50 ML IVPB 20 MG/50 ML MG IVPB SCH (09:41)
--- NOTE | 2020-01-29 11:01 | PN ---
Progress Note (short form) - Note Progress Note: PULMONARY DAY #44 HOSPITALIZATION LETHARGIC THIS AM IMV 6/350/40/5 PMV NOT IN HAS ALSO TOLERATED TRACH COLLAR YESTERDAY FOR 8 HOURS REMAINS ON NG SUCTION FOR SBO RESULTS OF MBS NOTED Gen: vented now Heart: RRR Lung: scattered rhonchi Abd: softly distended, nontender Ext: no edema LABS/MEDS/NOTES/IMAGES REVIEWED A/P Acute on Chronic Hypoxic and Hypercapneic Respiratory Failure s/p Tracheostomy Pneumonia ARDS resolved Septic Shock resolved Acute on Chronic Diastolic Heart Failure Pulmonary HTN Paroxysmal Atrial Fibrillation CAD Acute Kidney Injury Likely COPD JUANA/OHS HTN Hypercholesterolemia - Will attempt trach collar today - ng drainage to continue - antibiotics per ID - rate control - continue anticoagulation - titrate FiO2, PEEP to keep SpO2 >90% - monitor urine output, creatinine - DVT/GI prophylaxis Barb DELACRUZ MD
--- NOTE | 2020-01-29 11:15 | PN ---
Progress Note, Physician History of Present Illness: 64 year old male with a past medical history of HTN, HLD, JUANA (not using CPAP), COPD, GERD, systolic congestive heart failure, paroxysmal atrial fibrillation (on Eliquis, s/p cardioversion 11/2016) who presented with 3 weeks of gradual onset anasarca, scrotal swelling and mild shortness of breath worse on exertion. CXR s/f diffused bilat opacities with c/f PNA +/-fluid overload, ?bilateral lower extremity cellulitis and bilateral hydrocele, and respiratory acidosis is admitted for Acute hypercapneic respiratory failure and Acute CHF exacerbation, intubated for progressive hypercarbic respiratory failure, decreased mental status on BiPAP. 01/11/2020 s/p percutaneous tracheostomy, awake off sedation. Vented on volume assist control with 40% FiO2, PEEP 5. Placed on CPAP/PS. 01/12/2020 Off sedation on vent 01/12: no acute cardiac events; had elevated temp 01/13: No significant change01/14: No cardiac events 01/15: Vented, awake. Currently on SIMV RR 8 PS 10. Abd slightly distended 01/16: Vented awake on SIMV RR 8 PS 10. No fevers. 01/17: Ileus noted on abd/pelvic CT, interactive on vent 01/18: Small BM, NGT inserted 01/22: Improving AXR, patient remains on a ventilator via tracheostomy, awake and alert in no distress 01/24: Vent wean on trach, awake tolerating enteral feeds, ileus resolving 01/25: Vent wean on trach, no acute changes 01/27: Recurrent pSBO, starting on TPN per surgery 01/28: Remains NPO with recurrent ileus, on TC - Current Medication List Current Medications: Active Medications Acetaminophen (Tylenol Oral Solution -) 650 mg PO Q4H PRN PRN Reason: PAIN Amino Acids (Prosource No Carb Liquid Pkt) 30 ml NGT DAILY@0800 [facility] Last Admin: 01/26/20 09:00 Dose: 30 ml Documented by: Apixaban (Eliquis -) 5 mg NGT BID [facility] Last Admin: 01/26/20 10:39 Dose: 5 mg Documented by: Ascorbic Acid (Vitamin C Oral Solution -) 1,000 mg NGT DAILY [facility] Last Admin: 01/26/20 10:40 Dose: 1,000 mg Documented by: Buspirone HCl (Buspar -) 5 mg GT BID [facility] Last Admin: 01/26/20 10:39 Dose: 5 mg Documented by: Chlorhexidine Gluconate (Peridex -) 15 ml MM BID [facility] Last Admin: 01/29/20 09:41 Dose: 15 ml Documented by: Enoxaparin Sodium (Lovenox -) 100 mg SQ BID [facility] Last Admin: 01/29/20 09:40 Dose: 100 mg Documented by: Escitalopram Oxalate (Lexapro Oral Solution -) 10 mg GT DAILY [facility] Last Admin: 01/26/20 10:39 Dose: 10 mg Documented by: Famotidine (Pepcid) 20 mg PEG DAILY [facility] Last Admin: 01/26/20 10:40 Dose: 20 mg Documented by: Vancomycin HCl (Vancomycin (Pre-Docked)) 1,000 mg in 250 mls @ 250 mls/hr IVPB BID [facility]; Protocol Last Admin: 01/29/20 09:41 Dose: 250 mls/hr Documented by: Potassium Chloride 40 meq/ (Amino Acids) 1,020 mls @ 84 mls/hr IVPB Q12H [facility] Last Admin: 01/29/20 09:43 Dose: 84 mls/hr Documented by: Famotidine/Sodium Chloride (Pepcid 20 Mg Premixed Ivpb -) 20 mg in 50 mls @ 100 mls/hr IVPB DAILY [facility] Last Admin: 01/29/20 09:41 Dose: 100 mls/hr Documented by: Metoprolol Tartrate (Lopressor -) 25 mg NGT BID [facility] Last Admin: 01/26/20 10:39 Dose: 25 mg Documented by: Metoprolol Tartrate (Lopressor Injection -) 5 mg IVPB Q4H PRN PRN Reason: TACHYCARDIA Multivitamins/Minerals (Certavite-Antioxidant Liquid) 15 ml NGT DAILY [facility] Last Admin: 01/26/20 10:39 Dose: 15 ml Documented by: Trazodone HCl (Desyrel -) 50 mg NGT HS [facility] Last Admin: 01/25/20 23:22 Dose: 50 mg Documented by: - Objective Vital Signs: Vital Signs Temperature 98.3 F 01/29/20 05:50 Pulse Rate 90 01/29/20 08:19 Respiratory Rate 20 01/29/20 08:19 Blood Pressure 137/51 L 01/29/20 05:50 O2 Sat by Pulse Oximetry (%) 95 01/29/20 08:19 Constitutional: Yes: No Distress, Calm Neck: Yes: Other (TC) Cardiovascular: Yes: Regular Rate and Rhythm Respiratory: Yes: Diminished, Rhonchi Gastrointestinal: Yes: Soft, Hypoactive Bowel Sounds Edema: No Integumentary: Yes: Venous Stasis Changes Labs: CBC, BMP 01/29/20 07:00 01/29/20 07:00 INR, PTT INR 1.23 (0.83-1.09) H 01/10/20 13:50 Problem List - Problems (1) Congestive heart failure (CHF) Code(s): I50.9 - HEART FAILURE, UNSPECIFIED Qualifiers: Heart failure type: diastolic Heart failure chronicity: acute on chronic Qualified Code(s): I50.33 - Acute on chronic diastolic (congestive) heart failure (2) Pneumonia Code(s): J18.9 - PNEUMONIA, UNSPECIFIED ORGANISM Qualifiers: Pneumonia type: due to unspecified organism Laterality: right Lung location: lower lobe of lung Qualified Code(s): J18.9 - Pneumonia, unspecified organism (3) Acute on chronic diastolic (congestive) heart failure Code(s): I50.33 - ACUTE ON CHRONIC DIASTOLIC (CONGESTIVE) HEART FAILURE (4) Acute respiratory failure with hypoxia and hypercarbia Code(s): J96.01 - ACUTE RESPIRATORY FAILURE WITH HYPOXIA; J96.02 - ACUTE RESPIRATORY FAILURE WITH HYPERCAPNIA (5) Atrial fibrillation Code(s): I48.91 - UNSPECIFIED ATRIAL FIBRILLATION Qualifiers: Atrial fibrillation type: paroxysmal Qualified Code(s): I48.0 - Paroxysmal atrial fibrillation (6) COPD (chronic obstructive pulmonary disease) Code(s): J44.9 - CHRONIC OBSTRUCTIVE PULMONARY DISEASE, UNSPECIFIED Qualifiers: COPD type: unspecified COPD Qualified Code(s): J44.9 - Chronic obstructive pulmonary disease, unspecified (7) Hypertension Code(s): I10 - ESSENTIAL (PRIMARY) HYPERTENSION Qualifiers: Hypertension type: essential hypertension Qualified Code(s): I10 - Essential (primary) hypertension (8) Pleural effusion Code(s): J90 - PLEURAL EFFUSION, NOT ELSEWHERE CLASSIFIED Assessment/Plan 10/26/2017 Normal LV size with mild LVH, normal LV fxn, normal RV size and fxn, mild LAE, mild MR, mild-mod TR, mild NE, RVSP 43 mmHg 11/19/2016 Lexiscan Myoview: Apical ischemia, LVEF 45-52% 10/06/2016 Echocardiography revealed mild to moderate LV systolic dysfunction, moderate TR, RVSP of 30-40 mmHg 1. Acute on chronic Hypoxic and Hypercapneic Respiratory Failure with tracheos kwame 2. Acute on chronic LV Diastolic Heart Failure with pleural effusion 3. Pneumonia, ARDS (septic shock) resolved 4. Paroxysmal atrial fibrillation with periods of rapid ventricular response post DCCV, [id number] score of 2 5. Obstructive Sleep Apnea/Obesity 6. HTN/HCVD 7. Hypercholesterolemia 8. CAD, angina pectoris 9. Bilateral cellulitis with h/o abscess s/p debridement 10. Bilateral hydrocele 11. Recurrent ileus due to underlying co morbid conditions PLAN: 1. TC and PMV as tolerated, titrate FiO2, PEEP to keep SpO2 >90% 2. DVT and GI prophylaxis, enteral feeds held for emesis, f/u AXR 3. Diuretics held with monitor renal function and electrolytes 4. Continue Lopressor 25 mg BID and Eliquis 5 mg BID (via NGT) 5. Complete vanco course
--- NOTE | 2020-01-29 14:47 | PN ---
Progress Note, Physician History of Present Illness: Pt seen and examined at bedside. He is calmer today. He denies abdominal pain. - Current Medication List Current Medications: Active Medications Acetaminophen (Tylenol Oral Solution -) 650 mg PO Q4H PRN PRN Reason: PAIN Amino Acids (Prosource No Carb Liquid Pkt) 30 ml NGT DAILY@0800 [facility] Last Admin: 01/26/20 09:00 Dose: 30 ml Documented by: Apixaban (Eliquis -) 5 mg NGT BID [facility] Last Admin: 01/26/20 10:39 Dose: 5 mg Documented by: Ascorbic Acid (Vitamin C Oral Solution -) 1,000 mg NGT DAILY [facility] Last Admin: 01/26/20 10:40 Dose: 1,000 mg Documented by: Buspirone HCl (Buspar -) 5 mg GT BID [facility] Last Admin: 01/26/20 10:39 Dose: 5 mg Documented by: Chlorhexidine Gluconate (Peridex -) 15 ml MM BID [facility] Last Admin: 01/29/20 09:41 Dose: 15 ml Documented by: Enoxaparin Sodium (Lovenox -) 100 mg SQ BID [facility] Last Admin: 01/29/20 09:40 Dose: 100 mg Documented by: Escitalopram Oxalate (Lexapro Oral Solution -) 10 mg GT DAILY [facility] Last Admin: 01/26/20 10:39 Dose: 10 mg Documented by: Famotidine (Pepcid) 20 mg PEG DAILY [facility] Last Admin: 01/26/20 10:40 Dose: 20 mg Documented by: Potassium Chloride 40 meq/ (Amino Acids) 1,020 mls @ 84 mls/hr IVPB Q12H [facility] Last Admin: 01/29/20 14:23 Dose: Not Given Documented by: Famotidine/Sodium Chloride (Pepcid 20 Mg Premixed Ivpb -) 20 mg in 50 mls @ 100 mls/hr IVPB DAILY [facility] Last Admin: 01/29/20 09:41 Dose: 100 mls/hr Documented by: Metoprolol Tartrate (Lopressor -) 25 mg NGT BID [facility] Last Admin: 01/26/20 10:39 Dose: 25 mg Documented by: Metoprolol Tartrate (Lopressor Injection -) 5 mg IVPB Q4H PRN PRN Reason: TACHYCARDIA Multivitamins/Minerals (Certavite-Antioxidant Liquid) 15 ml NGT DAILY [facility] Last Admin: 01/26/20 10:39 Dose: 15 ml Documented by: Trazodone HCl (Desyrel -) 50 mg NGT HS [facility] Last Admin: 01/25/20 23:22 Dose: 50 mg Documented by: - Objective Vital Signs: Vital Signs Temperature 98.3 F 01/29/20 14:33 Pulse Rate 86 01/29/20 14:33 Respiratory Rate 21 H 01/29/20 14:33 Blood Pressure 146/86 01/29/20 14:33 O2 Sat by Pulse Oximetry (%) 97 01/29/20 14:33 Constitutional: Yes: Calm Eyes: Yes: Conjunctiva Clear HENT: Yes: Atraumatic Cardiovascular: Yes: S1, S2 Respiratory: Yes: Other (trache) Gastrointestinal: Yes: Soft, Abdomen, Obese, Other (nt to suction) Musculoskeletal: Yes: WNL Edema: No Integumentary: Yes: Venous Stasis Changes Neurological: Yes: Oriented Psychiatric: Yes: Oriented Labs: CBC, BMP 01/29/20 07:00 01/29/20 07:00 INR, PTT INR 1.23 (0.83-1.09) H 01/10/20 13:50 Problem List - Problems (1) Anasarca Code(s): R60.1 - GENERALIZED EDEMA (2) Congestive heart failure (CHF) Code(s): I50.9 - HEART FAILURE, UNSPECIFIED Qualifiers: Heart failure type: diastolic Heart failure chronicity: acute on chronic Qualified Code(s): I50.33 - Acute on chronic diastolic (congestive) heart failure (3) Acute kidney injury Code(s): N17.9 - ACUTE KIDNEY FAILURE, UNSPECIFIED Assessment/Plan Current Medications Generic Name Dose Route Start Last Admin Trade Name Freq PRN Reason Stop Dose Admin Acetaminophen 650 mg 01/24/20 17:28 Tylenol Oral Solution - PO Q4H PRN PAIN Amino Acids 30 ml 01/12/20 08:00 01/26/20 09:00 Prosource No Carb Liquid Pkt NGT 30 ml DAILY@0800 [facility] Administration Apixaban 5 mg 01/12/20 11:30 01/26/20 10:39 Eliquis - NGT 5 mg BID [facility] Administration Ascorbic Acid 1,000 mg 01/12/20 11:30 01/26/20 10:40 Vitamin C Oral Solution - NGT 1,000 mg DAILY [facility] Administration Buspirone HCl 5 mg 01/25/20 22:00 01/26/20 10:39 Buspar - GT 5 mg BID [facility] Administration Chlorhexidine Gluconate 15 ml 01/12/20 10:00 01/29/20 09:41 Peridex - MM 15 ml BID [facility] Administration Enoxaparin Sodium 100 mg 01/26/20 22:00 01/29/20 09:40 Lovenox - SQ 100 mg BID [facility] Administration Escitalopram Oxalate 10 mg 01/25/20 10:00 01/26/20 10:39 Lexapro Oral Solution - GT 10 mg DAILY [facility] Administration Famotidine 20 mg 01/25/20 10:00 01/26/20 10:40 Pepcid PEG 20 mg DAILY [facility] Administration Potassium Chloride 40 meq/ 1,020 mls @ 84 mls/hr 01/26/20 14:45 01/29/20 14:23 Amino Acids IVPB Not Given Q12H [facility] Famotidine/Sodium Chloride 20 mg in 50 mls @ 100 mls/hr 01/27/20 10:00 01/29/20 09:41 Pepcid 20 Mg Premixed Ivpb - IVPB 100 mls/hr DAILY [facility] Administration Metoprolol Tartrate 25 mg 01/12/20 11:26 01/26/20 10:39 Lopressor - NGT 25 mg BID [facility] Administration Metoprolol Tartrate 5 mg 01/26/20 20:08 Lopressor Injection - IVPB Q4H PRN TACHYCARDIA Multivitamins/Minerals 15 ml 01/12/20 11:32 01/26/20 10:39 Certavite-Antioxidant Liquid NGT 15 ml DAILY [facility] Administration Trazodone HCl 50 mg 01/25/20 22:00 01/25/20 23:22 Desyrel - NGT 50 mg HS [facility] Administration Impression 1. MONIE 2. CHF acute 3. acute resp failure requiring intubation 4. atrial fibrillation 5. hx of htn 6. obesity 7. chronic smoker 8. hypokalemia 9. partial sbo Plan - cont clinimix - follow abd x-ray - surgery follow up - can stop clinimix if feeds started - repeat labs in am - pulm rehab
[2020-01-29] MEDS ORDERED: PT OWN MED DRAWER 7, Y5N ONE (21:21)
[2020-01-30] MEDS: POTASSIUM CHLORIDE 40 MEQ in AMINO ACIDS 4.25%/D5W 1,000 ML IVPB SCH ×3 (01:05→15:53)
--- NOTE | 2020-01-30 08:36 | PN ---
Progress Note, Physician - Current Medication List Current Medications: Active Medications Acetaminophen (Tylenol Oral Solution -) 650 mg PO Q4H PRN PRN Reason: PAIN Amino Acids (Prosource No Carb Liquid Pkt) 30 ml NGT DAILY@0800 [facility] Last Admin: 01/26/20 09:00 Dose: 30 ml Documented by: Apixaban (Eliquis -) 5 mg NGT BID [facility] Last Admin: 01/26/20 10:39 Dose: 5 mg Documented by: Ascorbic Acid (Vitamin C Oral Solution -) 1,000 mg NGT DAILY [facility] Last Admin: 01/26/20 10:40 Dose: 1,000 mg Documented by: Buspirone HCl (Buspar -) 5 mg GT BID [facility] Last Admin: 01/26/20 10:39 Dose: 5 mg Documented by: Chlorhexidine Gluconate (Peridex -) 15 ml MM BID [facility] Last Admin: 01/29/20 21:24 Dose: 15 ml Documented by: Enoxaparin Sodium (Lovenox -) 100 mg SQ BID [facility] Last Admin: 01/29/20 21:25 Dose: 100 mg Documented by: Escitalopram Oxalate (Lexapro Oral Solution -) 10 mg GT DAILY [facility] Last Admin: 01/26/20 10:39 Dose: 10 mg Documented by: Famotidine (Pepcid) 20 mg PEG DAILY [facility] Last Admin: 01/26/20 10:40 Dose: 20 mg Documented by: Potassium Chloride 40 meq/ (Amino Acids) 1,020 mls @ 84 mls/hr IVPB Q12H [facility] Last Admin: 01/30/20 02:26 Dose: Not Given Documented by: Famotidine/Sodium Chloride (Pepcid 20 Mg Premixed Ivpb -) 20 mg in 50 mls @ 100 mls/hr IVPB DAILY [facility] Last Admin: 01/29/20 09:41 Dose: 100 mls/hr Documented by: Metoprolol Tartrate (Lopressor -) 25 mg NGT BID [facility] Last Admin: 01/26/20 10:39 Dose: 25 mg Documented by: Metoprolol Tartrate (Lopressor Injection -) 5 mg IVPB Q4H PRN PRN Reason: TACHYCARDIA Multivitamins/Minerals (Certavite-Antioxidant Liquid) 15 ml NGT DAILY [facility] Last Admin: 01/26/20 10:39 Dose: 15 ml Documented by: Trazodone HCl (Desyrel -) 50 mg NGT HS [facility] Last Admin: 01/25/20 23:22 Dose: 50 mg Documented by: - Objective Vital Signs: Vital Signs Temperature 98.2 F 01/30/20 05:00 Pulse Rate 85 01/30/20 05:00 Respiratory Rate 20 01/30/20 05:00 Blood Pressure 129/80 01/30/20 05:00 O2 Sat by Pulse Oximetry (%) 85 L 01/30/20 05:00 Cardiovascular: Yes: S1, S2 Respiratory: Yes: Mechanically Ventilated Gastrointestinal: Yes: Hypoactive Bowel Sounds, Other (NGT) Labs: CBC, BMP 01/29/20 07:00 01/29/20 07:00 INR, PTT INR 1.23 (0.83-1.09) H 01/10/20 13:50 Problem List - Problems (1) Acute hypercapnic respiratory failure Code(s): J96.02 - ACUTE RESPIRATORY FAILURE WITH HYPERCAPNIA (2) Congestive heart failure (CHF) Code(s): I50.9 - HEART FAILURE, UNSPECIFIED Qualifiers: Heart failure type: diastolic Heart failure chronicity: acute on chronic Qualified Code(s): I50.33 - Acute on chronic diastolic (congestive) heart failure (3) Pneumonia Code(s): J18.9 - PNEUMONIA, UNSPECIFIED ORGANISM Qualifiers: Pneumonia type: due to unspecified organism Laterality: right Lung location: lower lobe of lung Qualified Code(s): J18.9 - Pneumonia, unspecified organism (4) Afib Code(s): I48.91 - UNSPECIFIED ATRIAL FIBRILLATION Qualifiers: Atrial fibrillation type: paroxysmal Qualified Code(s): I48.0 - Paroxysmal atrial fibrillation Assessment/Plan - Problems (1) SBO (small bowel obstruction) Assessment/Plan: -AXR-high grade SBO -Daily serial Xrays -Keep Pt NPO -NGT to low wall suction -Clinimix -re-consult gi and surgery Problems reviewed: Yes Code(s): K56.609 - UNSP INTESTNL OBST, UNSP TO PARTIAL VERSUS COMPLETE OBST (2) Morbid obesity Problems reviewed: Yes Code(s): E66.01 - MORBID (SEVERE) OBESITY DUE TO EXCESS CALORIES (3) Pneumonia Assessment/Plan: -SC:MRSA -D/C Vanco, monitor off abx -ID on board -Afebrile Problems reviewed: Yes Code(s): J18.9 - PNEUMONIA, UNSPECIFIED ORGANISM Qualifiers: Pneumonia type: due to unspecified organism Laterality: right Lung location: lower lobe of lung Qualified Code(s): J18.9 - Pneumonia, unspecified organism (4) Atrial fibrillation Assessment/Plan: -Chronic, rate controlled -eliquis 5 mg GT BID on hold -Started on Lovenox 100 mg BID Problems reviewed: Yes Code(s): I48.91 - UNSPECIFIED ATRIAL FIBRILLATION Qualifiers: Atrial fibrillation type: paroxysmal Qualified Code(s): I48.0 - Paroxysmal atrial fibrillation (5) Respiratory failure with hypoxia and hypercapnia Assessment/Plan: -Pulmonary on board -S/P trach -Mech vent -Wean as tolerated -SNF upon d/c -MBS no aspiration -Encouraged daily PMV use -Trial of Trach collar -keep it overnight if tolerates Problems reviewed: Yes Code(s): J96.91 - RESPIRATORY FAILURE, UNSPECIFIED WITH HYPOXIA; J96.92 - RESPIRATORY FAILURE, UNSPECIFIED WITH HYPERCAPNIA Qualifiers: Chronicity: acute on chronic Qualified Code(s): J96.21 - Acute and chronic respiratory failure with hypoxia; J96.22 - Acute and chronic respiratory failure with hypercapnia (6) Hypokalemia Assessment/Plan: -Resolved -Nephrology on board -Monitor trend -Continue clinimix Problems reviewed: Yes Code(s): E87.6 - HYPOKALEMIA (7) MRSA (methicillin resistant staphylococcus aureus) pneumonia Problems reviewed: Yes Code(s): J15.212 - PNEUMONIA DUE TO METHICILLIN RESISTANT STAPHYLOCOCCUS AUREUS (8) Anxiety Assessment/Plan: -Hold SSRI-lexapro 10 mg GT daily -Hold Buspirone 5 mg GT BID PRN for breakthrough -D/C Ativan PRN- making pt too lethargic Problems reviewed: Yes Code(s): F41.9 - ANXIETY DISORDER, UNSPECIFIED
[2020-01-30 09:20] LABS: EOS % 7.6 % (0-4.5); HEMATOCRIT 35.8 % (35.4-49); HEMOGLOBIN 10.9 GM/dL (11.7-16.9); MCH 25.3 pg (25.7-33.7); MCHC 30.5 g/dl (32.0-35.9); MEAN CELL VOLUME 82.8 fl (80-96); MONO % 15.5 % (3.8-10.2); NEUT % 54.9 % (42.8-82.8); PLATELET COUNT 207 K/MM3 (134-434); RBC 4.32 M/mm3 (4.00-5.60); RDW 24.8 % (11.9-15.9); WHITE BLOOD COUNT 5.4 K/mm3 (4.0-10.0)
[2020-01-30 09:38] LABS: ALBUMIN 2.6 g/dl (3.4-5.0); BLOOD UREA NITROGEN 21.2 mg/dL (7-18); CREATININE 0.6 mg/dL (0.55-1.3); POTASSIUM 4.3 mmol/L (3.5-5.1)
--- NOTE | 2020-01-30 10:28 | PN.GI ---
GI Progress Note Subjective: Called to reevaluate SBO Patient has been refusing gastrostomy per nurse 800cc noted in suction canister from nightshift. Currently 900cc in canister AXR (flat plate) over weekend revealed SBO and residual contrast in colon. Colon did not appear dilated Denies abdominal pain - Objective Vital Signs: Vital Signs Temperature 98.1 F 01/30/20 09:00 Pulse Rate 92 H 01/30/20 09:00 Respiratory Rate 24 H 01/30/20 09:00 Blood Pressure 141/91 01/30/20 09:00 O2 Sat by Pulse Oximetry (%) 98 01/30/20 09:00 Constitutional: Calm Eyes: No: Sclera Icterus Cardiovascular: Yes: Regular Rate and Rhythm Respiratory: Yes: Diminished (at bases bilaterally with poor insp effort) Gastrointestinal Inspection: No: Distention ...Auscultate: Yes: Normoactive Bowel Sounds ...Palpate: Yes: Soft. No: Hepatomegaly, Splenomegaly, Tenderness ...Percussion: Yes: Tympanitic (Mild tympany, soft) Edema: No (No LE edema) Labs: CBC, BMP 01/30/20 08:40 01/30/20 08:40 INR, PTT INR 1.23 (0.83-1.09) H 01/10/20 13:50 Problem List - Problems (1) Pseudo-obstruction of intestine Assessment/Plan: Ileus vs. PSBO: NGT in polace Orderd CT A/Pwith PO contrast Surgical follow-up Code(s): K59.8 - OTHER SPECIFIED FUNCTIONAL INTESTINAL DISORDERS
--- NOTE | 2020-01-30 10:56 | PN ---
Progress Note, Physician History of Present Illness: continues with sbo issues seems he has refused peg tube otherwise patient is ok continues to be on mechanical ventilation - Current Medication List Current Medications: Active Medications Acetaminophen (Tylenol Oral Solution -) 650 mg PO Q4H PRN PRN Reason: PAIN Amino Acids (Prosource No Carb Liquid Pkt) 30 ml NGT DAILY@0800 [facility] Last Admin: 01/26/20 09:00 Dose: 30 ml Documented by: Apixaban (Eliquis -) 5 mg NGT BID [facility] Last Admin: 01/26/20 10:39 Dose: 5 mg Documented by: Ascorbic Acid (Vitamin C Oral Solution -) 1,000 mg NGT DAILY [facility] Last Admin: 01/26/20 10:40 Dose: 1,000 mg Documented by: Buspirone HCl (Buspar -) 5 mg GT BID [facility] Last Admin: 01/26/20 10:39 Dose: 5 mg Documented by: Chlorhexidine Gluconate (Peridex -) 15 ml MM BID [facility] Last Admin: 01/29/20 21:24 Dose: 15 ml Documented by: Enoxaparin Sodium (Lovenox -) 100 mg SQ BID [facility] Last Admin: 01/29/20 21:25 Dose: 100 mg Documented by: Escitalopram Oxalate (Lexapro Oral Solution -) 10 mg GT DAILY [facility] Last Admin: 01/26/20 10:39 Dose: 10 mg Documented by: Famotidine (Pepcid) 20 mg PEG DAILY [facility] Last Admin: 01/26/20 10:40 Dose: 20 mg Documented by: Potassium Chloride 40 meq/ (Amino Acids) 1,020 mls @ 84 mls/hr IVPB Q12H [facility] Last Admin: 01/30/20 02:26 Dose: Not Given Documented by: Famotidine/Sodium Chloride (Pepcid 20 Mg Premixed Ivpb -) 20 mg in 50 mls @ 100 mls/hr IVPB DAILY [facility] Last Admin: 01/29/20 09:41 Dose: 100 mls/hr Documented by: Metoprolol Tartrate (Lopressor -) 25 mg NGT BID [facility] Last Admin: 01/26/20 10:39 Dose: 25 mg Documented by: Metoprolol Tartrate (Lopressor Injection -) 5 mg IVPB Q4H PRN PRN Reason: TACHYCARDIA Multivitamins/Minerals (Certavite-Antioxidant Liquid) 15 ml NGT DAILY [facility] Last Admin: 01/26/20 10:39 Dose: 15 ml Documented by: Trazodone HCl (Desyrel -) 50 mg NGT HS [facility] Last Admin: 01/25/20 23:22 Dose: 50 mg Documented by: - Objective Vital Signs: Vital Signs Temperature 98.1 F 01/30/20 09:00 Pulse Rate 92 H 01/30/20 09:00 Respiratory Rate 24 H 01/30/20 09:00 Blood Pressure 141/91 01/30/20 09:00 O2 Sat by Pulse Oximetry (%) 98 01/30/20 09:00 Constitutional: Yes: Calm, Mild Distress Cardiovascular: Yes: S1, S2 Respiratory: Yes: Regular, Mechanically Ventilated, Other (trach) Gastrointestinal: Yes: Soft, Hypoactive Bowel Sounds, Other Musculoskeletal: Yes: WNL Extremities: Yes: WNL Neurological: Yes: Alert, Oriented Labs: CBC, BMP 01/30/20 08:40 01/30/20 08:40 INR, PTT INR 1.23 (0.83-1.09) H 01/10/20 13:50 Assessment/Plan Problem List - Problems (1) Edema of scrotum Code(s): N50.89 - OTHER SPECIFIED DISORDERS OF THE MALE GENITAL ORGANS (2) Morbid obesity Code(s): E66.01 - MORBID (SEVERE) OBESITY DUE TO EXCESS CALORIES (3) Acute on chronic diastolic (congestive) heart failure Code(s): I50.33 - ACUTE ON CHRONIC DIASTOLIC (CONGESTIVE) HEART FAILURE (4) Acute respiratory failure requiring reintubation Code(s): J96.00 - ACUTE RESPIRATORY FAILURE, UNSP W HYPOXIA OR HYPERCAPNIA (5) Afib Code(s): I48.91 - UNSPECIFIED ATRIAL FIBRILLATION Qualifiers: Atrial fibrillation type: paroxysmal Qualified Code(s): I48.0 - Paroxysmal atrial fibrillation Assessment/Plan Acute respiratory failure s/p trach on MV PNA Ileus/ pseudoobstruction CHF b/l LE Cellulitis b/l Hydrocele MONIE Paroxysmal AFIB COPD JUANA CAD HTN HLD plan continue current mgmt rest as per the team complete vanco course and stop it
[2020-01-30] MEDS ORDERED: PT OWN MED DRAWER 7, Y5N ONE ×2 (11:03→21:32)
[2020-01-30] MEDS: ENOXAPARIN NA (PORCINE) 100 MG/1 ML DISP.SYRIN SQ SCH ×2 (11:05→21:51)
[2020-01-30] MEDS: FAMOTIDINE 20 MG/50 ML IVPB 20 MG/50 ML MG IVPB SCH (11:05)
[2020-01-30] MEDS: CHLORHEXIDINE GLUCONATE 0.12% 15ML CUP MM SCH ×2 (11:05→21:51)
--- NOTE | 2020-01-30 11:05 | PN ---
Progress Note, Physician History of Present Illness: 64 year old male with a past medical history of HTN, HLD, JUANA (not using CPAP), COPD, GERD, systolic congestive heart failure, paroxysmal atrial fibrillation (on Eliquis, s/p cardioversion 11/2016) who presented with 3 weeks of gradual onset anasarca, scrotal swelling and mild shortness of breath worse on exertion. CXR s/f diffused bilat opacities with c/f PNA +/-fluid overload, ?bilateral lower extremity cellulitis and bilateral hydrocele, and respiratory acidosis is admitted for Acute hypercapneic respiratory failure and Acute CHF exacerbation, intubated for progressive hypercarbic respiratory failure, decreased mental status on BiPAP. 01/11/2020 s/p percutaneous tracheostomy, awake off sedation. Vented on volume assist control with 40% FiO2, PEEP 5. Placed on CPAP/PS. 01/12/2020 Off sedation on vent 01/12: no acute cardiac events; had elevated temp 01/13: No significant change01/14: No cardiac events 01/15: Vented, awake. Currently on SIMV RR 8 PS 10. Abd slightly distended 01/16: Vented awake on SIMV RR 8 PS 10. No fevers. 01/17: Ileus noted on abd/pelvic CT, interactive on vent 01/18: Small BM, NGT inserted 01/22: Improving AXR, patient remains on a ventilator via tracheostomy, awake and alert in no distress 01/24: Vent wean on trach, awake tolerating enteral feeds, ileus resolving 01/25: Vent wean on trach, no acute changes 01/27: Recurrent pSBO, starting on TPN per surgery 01/28: Remains NPO with recurrent ileus, on 40% TC 01/29: Passing flatus, await abd/pelvic CT to evaluate ileus vs pSBO - Current Medication List Current Medications: Active Medications Acetaminophen (Tylenol Oral Solution -) 650 mg PO Q4H PRN PRN Reason: PAIN Amino Acids (Prosource No Carb Liquid Pkt) 30 ml NGT DAILY@0800 [facility] Last Admin: 01/26/20 09:00 Dose: 30 ml Documented by: Apixaban (Eliquis -) 5 mg NGT BID [facility] Last Admin: 01/26/20 10:39 Dose: 5 mg Documented by: Ascorbic Acid (Vitamin C Oral Solution -) 1,000 mg NGT DAILY [facility] Last Admin: 01/26/20 10:40 Dose: 1,000 mg Documented by: Buspirone HCl (Buspar -) 5 mg GT BID [facility] Last Admin: 01/26/20 10:39 Dose: 5 mg Documented by: Chlorhexidine Gluconate (Peridex -) 15 ml MM BID [facility] Last Admin: 01/29/20 21:24 Dose: 15 ml Documented by: Enoxaparin Sodium (Lovenox -) 100 mg SQ BID [facility] Last Admin: 01/29/20 21:25 Dose: 100 mg Documented by: Escitalopram Oxalate (Lexapro Oral Solution -) 10 mg GT DAILY [facility] Last Admin: 01/26/20 10:39 Dose: 10 mg Documented by: Famotidine (Pepcid) 20 mg PEG DAILY [facility] Last Admin: 01/26/20 10:40 Dose: 20 mg Documented by: Potassium Chloride 40 meq/ (Amino Acids) 1,020 mls @ 84 mls/hr IVPB Q12H [facility] Last Admin: 01/30/20 02:26 Dose: Not Given Documented by: Famotidine/Sodium Chloride (Pepcid 20 Mg Premixed Ivpb -) 20 mg in 50 mls @ 100 mls/hr IVPB DAILY [facility] Last Admin: 01/29/20 09:41 Dose: 100 mls/hr Documented by: Metoprolol Tartrate (Lopressor -) 25 mg NGT BID [facility] Last Admin: 01/26/20 10:39 Dose: 25 mg Documented by: Metoprolol Tartrate (Lopressor Injection -) 5 mg IVPB Q4H PRN PRN Reason: TACHYCARDIA Multivitamins/Minerals (Certavite-Antioxidant Liquid) 15 ml NGT DAILY [facility] Last Admin: 01/26/20 10:39 Dose: 15 ml Documented by: Trazodone HCl (Desyrel -) 50 mg NGT HS [facility] Last Admin: 01/25/20 23:22 Dose: 50 mg Documented by: - Objective Vital Signs: Vital Signs Temperature 98.1 F 01/30/20 09:00 Pulse Rate 92 H 01/30/20 09:00 Respiratory Rate 24 H 01/30/20 09:00 Blood Pressure 141/91 01/30/20 09:00 O2 Sat by Pulse Oximetry (%) 98 07/27/20 09:00 Constitutional: Yes: No Distress, Calm HENT: Yes: Other (TC) Cardiovascular: Yes: Regular Rate and Rhythm Respiratory: Yes: Diminished, Rhonchi Gastrointestinal: Yes: Soft, Distention, Hypoactive Bowel Sounds Edema: No Integumentary: Yes: Venous Stasis Changes Labs: CBC, BMP 01/30/20 08:40 01/30/20 08:40 INR, PTT INR 1.23 (0.83-1.09) H 01/10/20 13:50 Problem List - Problems (1) Congestive heart failure (CHF) Code(s): I50.9 - HEART FAILURE, UNSPECIFIED Qualifiers: Heart failure type: diastolic Heart failure chronicity: acute on chronic Qualified Code(s): I50.33 - Acute on chronic diastolic (congestive) heart failure (2) Pneumonia Code(s): J18.9 - PNEUMONIA, UNSPECIFIED ORGANISM Qualifiers: Pneumonia type: due to unspecified organism Laterality: right Lung location: lower lobe of lung Qualified Code(s): J18.9 - Pneumonia, unspecified organism (3) Acute on chronic diastolic (congestive) heart failure Code(s): I50.33 - ACUTE ON CHRONIC DIASTOLIC (CONGESTIVE) HEART FAILURE (4) Acute respiratory failure with hypoxia and hypercarbia Code(s): J96.01 - ACUTE RESPIRATORY FAILURE WITH HYPOXIA; J96.02 - ACUTE RESPIRATORY FAILURE WITH HYPERCAPNIA (5) Atrial fibrillation Code(s): I48.91 - UNSPECIFIED ATRIAL FIBRILLATION Qualifiers: Atrial fibrillation type: paroxysmal Qualified Code(s): I48.0 - Paroxysmal atrial fibrillation (6) COPD (chronic obstructive pulmonary disease) Code(s): J44.9 - CHRONIC OBSTRUCTIVE PULMONARY DISEASE, UNSPECIFIED Qualifiers: COPD type: unspecified COPD Qualified Code(s): J44.9 - Chronic obstructive pulmonary disease, unspecified (7) Hypertension Code(s): I10 - ESSENTIAL (PRIMARY) HYPERTENSION Qualifiers: Hypertension type: essential hypertension Qualified Code(s): I10 - Essential (primary) hypertension (8) Pleural effusion Code(s): J90 - PLEURAL EFFUSION, NOT ELSEWHERE CLASSIFIED Assessment/Plan 10/26/2017 Normal LV size with mild LVH, normal LV fxn, normal RV size and fxn, mild LAE, mild MR, mild-mod TR, mild CO, RVSP 43 mmHg 11/19/2016 [employer] Myoview: Apical ischemia, LVEF 45-52% 10/06/2016 Echocardiography revealed mild to moderate LV systolic dysfunction, moderate TR, RVSP of 30-40 mmHg 1. Acute on chronic Hypoxic and Hypercapneic Respiratory Failure with tracheostomy 2. Acute on chronic LV Diastolic Heart Failure with pleural effusion 3. Pneumonia, ARDS (septic shock) resolved 4. Paroxysmal atrial fibrillation with periods of rapid ventricular response post DCCV, [id number] score of 2 5. Obstructive Sleep Apnea/Obesity 6. HTN/HCVD 7. Hypercholesterolemia 8. CAD, angina pectoris 9. Bilateral cellulitis with h/o abscess s/p debridement 10. Bilateral hydrocele 11. Recurrent ileus vs pSBO due to underlying co morbid conditions PLAN: 1. TC and PMV as tolerated, titrate FiO2, PEEP to keep SpO2 >90% 2. DVT and GI prophylaxis, enteral feeds held for emesis, f/u abd/pelvic CT, NGT in place 3. Diuretics held with monitor renal function and electrolytes 4. Continue Lopressor 25 mg BID and Eliquis 5 mg BID (via NGT) 5. Complete vanco course
--- NOTE | 2020-01-30 11:20 | PN ---
Progress Note (short form) - Note Progress Note: PULMONARY Awake on trach collar 40% FiO2. Vital Signs Period Temp Pulse Resp BP Sys/Clements Pulse Ox Last 24 Hr 98.1 F-98.9 F 75-92 20-24 113-146/61-98 85-100 Gen: vented, awake Heart: RRR Lung: scattered rhonchi Abd: softly distended, nontender Ext: no edema CBC, BMP 01/30/20 08:40 01/30/20 08:40 Active Medications Acetaminophen (Tylenol Oral Solution -) 650 mg PO Q4H PRN PRN Reason: PAIN Amino Acids (Prosource No Carb Liquid Pkt) 30 ml NGT DAILY@0800 [facility] [place] Last Admin: 01/26/20 09:00 Dose: 30 ml Documented by: Apixaban (Eliquis -) 5 mg NGT BID [facility] [place] Last Admin: 01/26/20 10:39 Dose: 5 mg Documented by: Ascorbic Acid (Vitamin C Oral Solution -) 1,000 mg NGT DAILY [facility] [place] Last Admin: 01/26/20 10:40 Dose: 1,000 mg Documented by: Buspirone HCl (Buspar -) 5 mg GT BID [facility] [place] Last Admin: 01/26/20 10:39 Dose: 5 mg Documented by: Chlorhexidine Gluconate (Peridex -) 15 ml MM BID [facility] [place] Last Admin: 01/30/20 11:05 Dose: 15 ml Documented by: Enoxaparin Sodium (Lovenox -) 100 mg SQ BID [facility] [place] Last Admin: 01/30/20 11:05 Dose: 100 mg Documented by: Escitalopram Oxalate (Lexapro Oral Solution -) 10 mg GT DAILY [facility] [place] Last Admin: 01/26/20 10:39 Dose: 10 mg Documented by: Famotidine (Pepcid) 20 mg PEG DAILY [facility] [place] Last Admin: 01/26/20 10:40 Dose: 20 mg Documented by: Potassium Chloride 40 meq/ (Amino Acids) 1,020 mls @ 84 mls/hr IVPB Q12H [facility] [place] Last Admin: 01/30/20 02:26 Dose: Not Given Documented by: Famotidine/Sodium Chloride (Pepcid 20 Mg Premixed Ivpb -) 20 mg in 50 mls @ 100 mls/hr IVPB DAILY [facility] [place] Last Admin: 01/30/20 11:05 Dose: 100 mls/hr Documented by: Metoprolol Tartrate (Lopressor -) 25 mg NGT BID [facility] [place] Last Admin: 01/26/20 10:39 Dose: 25 mg Documented by: Metoprolol Tartrate (Lopressor Injection -) 5 mg IVPB Q4H PRN PRN Reason: TACHYCARDIA Multivitamins/Minerals (Certavite-Antioxidant Liquid) 15 ml NGT DAILY [facility] [place] Last Admin: 01/26/20 10:39 Dose: 15 ml Documented by: Trazodone HCl (Desyrel -) 50 mg NGT HS [facility] [place] Last Admin: 01/25/20 23:22 Dose: 50 mg Documented by: A/P Acute on Chronic Hypoxic and Hypercapneic Respiratory Failure s/p Tracheostomy Pneumonia ARDS resolved Septic Shock resolved Acute on Chronic Diastolic Heart Failure Pulmonary HTN Paroxysmal Atrial Fibrillation CAD Acute Kidney Injury Likely COPD JUANA/OHS HTN Hypercholesterolemia - completed antibiotics - rate control - continue anticoagulation - trach collar, PMV as tolerated - PMV eval - titrate FiO2 to keep SpO2 >90% - monitor urine output, creatinine - PO as tolerated - DVT/GI prophylaxis
[2020-01-30 11:57] LABS: ANISOCYTOSIS 1+; MACROCYTOSIS 0; OVALOCYTE 1+; PLATELET ESTIMATE NORMAL
--- NOTE | 2020-01-30 12:06 | PN ---
Progress Note (short form) - Note Progress Note: Patient seen and examined. In better spirits today. States he was well over the weekend. Denies abo pain, states he wants to eat, has been npo, passing flatus. No bm, denies n/v/d. Vital Signs Temp 98.1 F 01/30/20 09:00 Pulse 92 H 01/30/20 09:00 Resp 24 H 01/30/20 09:00 BP 141/91 01/30/20 09:00 Pulse Ox 98 01/30/20 09:00 Intake & Output 01/29/20 01/30/20 01/30/20 23:59 11:59 23:59 Intake Total 1140 1008 Output Total 350 750 Balance 790 258 Weight 212 lb 4.8 oz Intake: IV 840 1008 kcl 40meq in clinimix 840 1008 1000ml at 84cc/hr IVPB 300 Oral 0 Output: Gastric Drainage 350 450 Urine 300 Void 300 Other: Voiding Method Diaper Incontinent # Unmeasured Voids Void 2 Bowel Movement No No Weight Measurement Method Built in [facility] CBC, BMP 01/30/20 08:40 01/30/20 08:40 GENERAL: awake, alert, and fully oriented, in no acute distress. NECK: s/p trach, on vent, NGT in place with ?450 ml bilious drainage from overnight ABDOMEN: Soft,distended, tympanic, no ttp, no guarding, no rebound A/P: 64 y/o M w/ HTN, HLD, JUANA (not using CPAP), COPD, GERD, systolic congestive heart failure, paroxysmal atrial fibrillation (on Eliquis, s/p cardioversion 11/2016) a/w CHF exacerbation with complicated hospital course requiring intubation, trach. General surgery consulted for partial SBO vs. ileus. NGT output 450 ml overnight afebrile, vss labs stable -CT a/p w/ po contrast scheduled for today, will f/u <Alex Gallo - Last Filed: 01/30/20 12:12> - Note Progress Note: Attending Surgeon: I personally saw and examined the patient. My examination reveals a patient with an sbo. I discussed the case with the surgical PA and agree with their findings and plan of care with any exceptions as noted. ~ Олег Gonzalez MD, FACS <Олег Gonzalez - Last Filed: 02/01/20 11:23>
[2020-01-30 15:32] VITALS: BMI 32.2
--- NOTE | 2020-01-30 16:36 | PN ---
Progress Note, Physician History of Present Illness: Pt seen and examined at bedside. He is agitated and wants to go home. - Current Medication List Current Medications: Active Medications Acetaminophen (Tylenol Oral Solution -) 650 mg PO Q4H PRN PRN Reason: PAIN Amino Acids (Prosource No Carb Liquid Pkt) 30 ml NGT DAILY@0800 [facility] Last Admin: 01/26/20 09:00 Dose: 30 ml Documented by: Apixaban (Eliquis -) 5 mg NGT BID [facility] Last Admin: 01/26/20 10:39 Dose: 5 mg Documented by: Ascorbic Acid (Vitamin C Oral Solution -) 1,000 mg NGT DAILY [facility] Last Admin: 01/26/20 10:40 Dose: 1,000 mg Documented by: Buspirone HCl (Buspar -) 5 mg GT BID [facility] Last Admin: 01/26/20 10:39 Dose: 5 mg Documented by: Chlorhexidine Gluconate (Peridex -) 15 ml MM BID [facility] Last Admin: 01/30/20 11:05 Dose: 15 ml Documented by: Enoxaparin Sodium (Lovenox -) 100 mg SQ BID [facility] Last Admin: 01/30/20 11:05 Dose: 100 mg Documented by: Escitalopram Oxalate (Lexapro Oral Solution -) 10 mg GT DAILY [facility] Last Admin: 01/26/20 10:39 Dose: 10 mg Documented by: Famotidine (Pepcid) 20 mg PEG DAILY [facility] Last Admin: 01/26/20 10:40 Dose: 20 mg Documented by: Potassium Chloride 40 meq/ (Amino Acids) 1,020 mls @ 84 mls/hr IVPB Q12H [facility] Last Admin: 01/30/20 15:53 Dose: 84 mls/hr Documented by: Famotidine/Sodium Chloride (Pepcid 20 Mg Premixed Ivpb -) 20 mg in 50 mls @ 100 mls/hr IVPB DAILY [facility] Last Admin: 01/30/20 11:05 Dose: 100 mls/hr Documented by: Metoprolol Tartrate (Lopressor -) 25 mg NGT BID [facility] Last Admin: 01/26/20 10:39 Dose: 25 mg Documented by: Metoprolol Tartrate (Lopressor Injection -) 5 mg IVPB Q4H PRN PRN Reason: TACHYCARDIA Multivitamins/Minerals (Certavite-Antioxidant Liquid) 15 ml NGT DAILY [facility] Last Admin: 01/26/20 10:39 Dose: 15 ml Documented by: Trazodone HCl (Desyrel -) 50 mg NGT HS [facility] Last Admin: 01/25/20 23:22 Dose: 50 mg Documented by: - Objective Vital Signs: Vital Signs Temperature 98.5 F 01/30/20 15:46 Pulse Rate 89 01/30/20 15:46 Respiratory Rate 22 H 01/30/20 15:46 Blood Pressure 139/84 01/30/20 15:46 O2 Sat by Pulse Oximetry (%) 97 01/30/20 15:46 Constitutional: Yes: Calm Eyes: Yes: Conjunctiva Clear HENT: Yes: Atraumatic Neck: Yes: Supple Cardiovascular: Yes: S1, S2 Respiratory: Yes: Mechanically Ventilated Gastrointestinal: Yes: Soft Genitourinary: Yes: WNL Musculoskeletal: Yes: WNL Edema: No Neurological: Yes: Oriented Labs: CBC, BMP 01/30/20 08:40 01/30/20 08:40 INR, PTT INR 1.23 (0.83-1.09) H 01/10/20 13:50 Problem List - Problems (1) Anasarca Code(s): R60.1 - GENERALIZED EDEMA (2) Congestive heart failure (CHF) Code(s): I50.9 - HEART FAILURE, UNSPECIFIED Qualifiers: Heart failure type: diastolic Heart failure chronicity: acute on chronic Qualified Code(s): I50.33 - Acute on chronic diastolic (congestive) heart failure (3) Acute kidney injury Code(s): N17.9 - ACUTE KIDNEY FAILURE, UNSPECIFIED Assessment/Plan Current Medications Generic Name Dose Route Start Last Admin Trade Name Freq PRN Reason Stop Dose Admin Acetaminophen 650 mg 01/24/20 17:28 Tylenol Oral Solution - PO Q4H PRN PAIN Amino Acids 30 ml 01/12/20 08:00 01/26/20 09:00 Prosource No Carb Liquid Pkt NGT 30 ml DAILY@0800 [facility] Administration Apixaban 5 mg 01/12/20 11:30 01/26/20 10:39 Eliquis - NGT 5 mg BID [facility] Administration Ascorbic Acid 1,000 mg 01/12/20 11:30 01/26/20 10:40 Vitamin C Oral Solution - NGT 1,000 mg DAILY [facility] Administration Buspirone HCl 5 mg 01/25/20 22:00 01/26/20 10:39 Buspar - GT 5 mg BID [facility] Administration Chlorhexidine Gluconate 15 ml 01/12/20 10:00 01/30/20 11:05 Peridex - MM 15 ml BID [facility] Administration Enoxaparin Sodium 100 mg 01/26/20 22:00 01/30/20 11:05 Lovenox - SQ 100 mg BID [facility] Administration Escitalopram Oxalate 10 mg 01/25/20 10:00 01/26/20 10:39 Lexapro Oral Solution - GT 10 mg DAILY [facility] Administration Famotidine 20 mg 01/25/20 10:00 01/26/20 10:40 Pepcid PEG 20 mg DAILY [facility] Administration Potassium Chloride 40 meq/ 1,020 mls @ 84 mls/hr 01/26/20 14:45 01/30/20 15:53 Amino Acids IVPB 84 mls/hr Q12H [facility] Administration Famotidine/Sodium Chloride 20 mg in 50 mls @ 100 mls/hr 01/27/20 10:00 01/30/20 11:05 Pepcid 20 Mg Premixed Ivpb - IVPB 100 mls/hr DAILY [facility] Administration Metoprolol Tartrate 25 mg 01/12/20 11:26 01/26/20 10:39 Lopressor - NGT 25 mg BID [facility] Administration Metoprolol Tartrate 5 mg 01/26/20 20:08 Lopressor Injection - IVPB Q4H PRN TACHYCARDIA Multivitamins/Minerals 15 ml 01/12/20 11:32 01/26/20 10:39 Certavite-Antioxidant Liquid NGT 15 ml DAILY [facility] Administration Trazodone HCl 50 mg 01/25/20 22:00 01/25/20 23:22 Desyrel - NGT 50 mg HS [facility] Administration Impression 1. MONIE 2. CHF acute 3. acute resp failure requiring intubation 4. atrial fibrillation 5. hx of htn 6. obesity 7. chronic smoker 8. hypokalemia 9. partial sbo Plan - surgery follow up - can d/c clinimix if he is started on feeds - renal function stable - repeat labs in am - pulm rehab
[2020-01-31] MEDS: POTASSIUM CHLORIDE 40 MEQ in AMINO ACIDS 4.25%/D5W 1,000 ML IVPB SCH ×3 (01:57→19:43)
[2020-01-31 08:23] LABS: BASO % 1.4 % (0-2.0); HEMATOCRIT 36.7 % (35.4-49); HEMOGLOBIN 11.3 GM/dL (11.7-16.9); LYMPH % 18.7 % (8-40); MCH 25.5 pg (25.7-33.7); MCHC 30.7 g/dl (32.0-35.9); MEAN PLT VOLUME 8.2 fl (7.5-11.1); MONO % 13.4 % (3.8-10.2); NEUT % 58.5 % (42.8-82.8); PLATELET COUNT 227 K/MM3 (134-434); RBC 4.42 M/mm3 (4.00-5.60); RDW 24.8 % (11.9-15.9); WHITE BLOOD COUNT 5.8 K/mm3 (4.0-10.0)
[2020-01-31 08:44] LABS: ALBUMIN 2.7 g/dl (3.4-5.0); BILIRUBIN,TOTAL 1.2 mg/dL (0.2-1); BLOOD UREA NITROGEN 19.8 mg/dL (7-18); CALCIUM 9.4 mg/dL (8.5-10.1); CREATININE 0.5 mg/dL (0.55-1.3); POTASSIUM 4.1 mmol/L (3.5-5.1); TOT PROT 6.2 g/dl (6.4-8.2)
[2020-01-31] MEDS ORDERED: PT OWN MED DRAWER 7, Y5N ONE (10:01)
--- NOTE | 2020-01-31 10:19 | PN ---
Progress Note (short form) - Note Progress Note: Attending Surgeon Seen in f/u; passing flatus; had a BM; wants to eat. VSS AF abdo-soft and non tender; non tympanitic CT scan a/p reviewed and no evidence of obstruction AXR today-contrast in the colon; no obstruction. IMP: resolved SBO PLAN: Remove NGT and advance diet as tolerated; consider PEG ? and long termo goals of care. Олег Gonzalez MD FACS
[2020-01-31] MEDS: CHLORHEXIDINE GLUCONATE 0.12% 15ML CUP MM SCH ×2 (11:11→22:21)
[2020-01-31] MEDS: FAMOTIDINE 20 MG/50 ML IVPB 20 MG/50 ML MG IVPB SCH (11:11)
[2020-01-31] MEDS: ENOXAPARIN NA (PORCINE) 100 MG/1 ML DISP.SYRIN SQ SCH (11:11)
--- NOTE | 2020-01-31 11:54 | PN ---
Progress Note, Physician History of Present Illness: PULMONARY ALERT,NO DISTRESS ON TRACH COLLAR,-SOB - Current Medication List Current Medications: Active Medications Acetaminophen (Tylenol Oral Solution -) 650 mg PO Q4H PRN PRN Reason: PAIN Amino Acids (Prosource No Carb Liquid Pkt) 30 ml NGT DAILY@0800 [facility] Last Admin: 01/26/20 09:00 Dose: 30 ml Documented by: Apixaban (Eliquis -) 5 mg NGT BID [facility] Last Admin: 01/26/20 10:39 Dose: 5 mg Documented by: Ascorbic Acid (Vitamin C Oral Solution -) 1,000 mg NGT DAILY [facility] Last Admin: 01/26/20 10:40 Dose: 1,000 mg Documented by: Buspirone HCl (Buspar -) 5 mg GT BID [facility] Last Admin: 01/26/20 10:39 Dose: 5 mg Documented by: Chlorhexidine Gluconate (Peridex -) 15 ml MM BID [facility] Last Admin: 01/31/20 11:11 Dose: 15 ml Documented by: Enoxaparin Sodium (Lovenox -) 100 mg SQ BID [facility] Last Admin: 01/31/20 11:11 Dose: 100 mg Documented by: Escitalopram Oxalate (Lexapro Oral Solution -) 10 mg GT DAILY [facility] Last Admin: 01/26/20 10:39 Dose: 10 mg Documented by: Famotidine (Pepcid) 20 mg PEG DAILY [facility] Last Admin: 01/26/20 10:40 Dose: 20 mg Documented by: Potassium Chloride 40 meq/ (Amino Acids) 1,020 mls @ 84 mls/hr IVPB Q12H [facility] Last Admin: 01/31/20 06:39 Dose: 84 mls/hr Documented by: Famotidine/Sodium Chloride (Pepcid 20 Mg Premixed Ivpb -) 20 mg in 50 mls @ 100 mls/hr IVPB DAILY [facility] Last Admin: 01/31/20 11:11 Dose: 100 mls/hr Documented by: Metoprolol Tartrate (Lopressor -) 25 mg NGT BID [facility] Last Admin: 01/26/20 10:39 Dose: 25 mg Documented by: Metoprolol Tartrate (Lopressor Injection -) 5 mg IVPB Q4H PRN PRN Reason: TACHYCARDIA Multivitamins/Minerals (Certavite-Antioxidant Liquid) 15 ml NGT DAILY [facility] Last Admin: 01/26/20 10:39 Dose: 15 ml Documented by: Trazodone HCl (Desyrel -) 50 mg NGT HS [facility] Last Admin: 01/25/20 23:22 Dose: 50 mg Documented by: - Objective Vital Signs: Vital Signs Temperature 98.6 F 01/31/20 06:00 Pulse Rate 82 01/31/20 08:35 Respiratory Rate 20 01/31/20 06:00 Blood Pressure 131/83 01/31/20 06:00 O2 Sat by Pulse Oximetry (%) 98 01/31/20 08:40 Constitutional: Yes: Well Nourished, Calm Eyes: Yes: WNL HENT: Yes: WNL Neck: Yes: WNL (TRACH) Cardiovascular: Yes: Regular Rate and Rhythm, S1, S2 Respiratory: Yes: Diminished Gastrointestinal: Yes: Normal Bowel Sounds, Soft Extremities: Yes: WNL Edema: No Labs: CBC, BMP 01/31/20 07:40 01/31/20 07:40 INR, PTT INR 1.23 (0.83-1.09) H 01/10/20 13:50 - ....Imaging Chest X-ray: Report Reviewed, Image Reviewed Assessment/Plan ASSESSMENT AND PLAN: Acute on Chronic Hypoxic and Hypercapneic Respiratory Failure Pneumonia ARDS improved S/P Septic Shock Acute on Chronic Diastolic Heart Failure Pulmonary HTN Paroxysmal Atrial Fibrillation CAD Acute Kidney Injury Likely COPD JUANA/OHS HTN Hypercholesterolemia - - rate control - anticoagulation - trach collar as tolerated - monitor urine output, creatinine - DVT/GI prophylaxis - nutritional support DR MELTON
--- NOTE | 2020-01-31 12:03 | PN ---
Progress Note (short form) - Note Progress Note: Reviewed CT scan report and Dr. Gonzalez's evaluation. Will need goals of care clarified regarding feeding. Consider IR placement of gastrostomy if patient amenable. Will need NGT for placement of G-tube by IR Problem List - Problems (1) Pseudo-obstruction of intestine Code(s): K59.8 - OTHER SPECIFIED FUNCTIONAL INTESTINAL DISORDERS
--- NOTE | 2020-01-31 12:04 | PN ---
Progress Note, Physician History of Present Illness: stable no new issues surgical note noted - Current Medication List Current Medications: Active Medications Acetaminophen (Tylenol Oral Solution -) 650 mg PO Q4H PRN PRN Reason: PAIN Amino Acids (Prosource No Carb Liquid Pkt) 30 ml NGT DAILY@0800 [facility] Last Admin: 01/26/20 09:00 Dose: 30 ml Documented by: Apixaban (Eliquis -) 5 mg NGT BID [facility] Last Admin: 01/26/20 10:39 Dose: 5 mg Documented by: Ascorbic Acid (Vitamin C Oral Solution -) 1,000 mg NGT DAILY [facility] Last Admin: 01/26/20 10:40 Dose: 1,000 mg Documented by: Buspirone HCl (Buspar -) 5 mg GT BID [facility] Last Admin: 01/26/20 10:39 Dose: 5 mg Documented by: Chlorhexidine Gluconate (Peridex -) 15 ml MM BID [facility] Last Admin: 01/31/20 11:11 Dose: 15 ml Documented by: Enoxaparin Sodium (Lovenox -) 100 mg SQ BID [facility] Last Admin: 01/31/20 11:11 Dose: 100 mg Documented by: Escitalopram Oxalate (Lexapro Oral Solution -) 10 mg GT DAILY [facility] Last Admin: 01/26/20 10:39 Dose: 10 mg Documented by: Famotidine (Pepcid) 20 mg PEG DAILY [facility] Last Admin: 01/26/20 10:40 Dose: 20 mg Documented by: Potassium Chloride 40 meq/ (Amino Acids) 1,020 mls @ 84 mls/hr IVPB Q12H [facility] Last Admin: 01/31/20 06:39 Dose: 84 mls/hr Documented by: Famotidine/Sodium Chloride (Pepcid 20 Mg Premixed Ivpb -) 20 mg in 50 mls @ 100 mls/hr IVPB DAILY [facility] Last Admin: 01/31/20 11:11 Dose: 100 mls/hr Documented by: Metoprolol Tartrate (Lopressor -) 25 mg NGT BID [facility] Last Admin: 01/26/20 10:39 Dose: 25 mg Documented by: Metoprolol Tartrate (Lopressor Injection -) 5 mg IVPB Q4H PRN PRN Reason: TACHYCARDIA Multivitamins/Minerals (Certavite-Antioxidant Liquid) 15 ml NGT DAILY [facility] Last Admin: 01/26/20 10:39 Dose: 15 ml Documented by: Trazodone HCl (Desyrel -) 50 mg NGT HS [facility] Last Admin: 01/25/20 23:22 Dose: 50 mg Documented by: - Objective Vital Signs: Vital Signs Temperature 98.6 F 01/31/20 06:00 Pulse Rate 82 01/31/20 08:35 Respiratory Rate 20 01/31/20 06:00 Blood Pressure 131/83 01/31/20 06:00 O2 Sat by Pulse Oximetry (%) 98 01/31/20 08:40 Constitutional: Yes: No Distress, Calm Cardiovascular: Yes: S1, S2 Respiratory: Yes: Regular, CTA Bilaterally Gastrointestinal: Yes: Normal Bowel Sounds, Soft Musculoskeletal: Yes: WNL Extremities: Yes: WNL Neurological: Yes: Alert, Oriented Psychiatric: Yes: Alert, Oriented Labs: CBC, BMP 01/31/20 07:40 01/31/20 07:40 INR, PTT INR 1.23 (0.83-1.09) H 01/10/20 13:50 Assessment/Plan Problem List - Problems (1) Edema of scrotum Code(s): N50.89 - OTHER SPECIFIED DISORDERS OF THE MALE GENITAL ORGANS (2) Morbid obesity Code(s): E66.01 - MORBID (SEVERE) OBESITY DUE TO EXCESS CALORIES (3) Acute on chronic diastolic (congestive) heart failure Code(s): I50.33 - ACUTE ON CHRONIC DIASTOLIC (CONGESTIVE) HEART FAILURE (4) Acute respiratory failure requiring reintubation Code(s): J96.00 - ACUTE RESPIRATORY FAILURE, UNSP W HYPOXIA OR HYPERCAPNIA (5) Afib Code(s): I48.91 - UNSPECIFIED ATRIAL FIBRILLATION Qualifiers: Atrial fibrillation type: paroxysmal Qualified Code(s): I48.0 - Paroxysmal atrial fibrillation Assessment/Plan Acute respiratory failure s/p trach on MV PNA Ileus/ pseudoobstruction CHF b/l LE Cellulitis b/l Hydrocele MONIE Paroxysmal AFIB COPD JUANA CAD HTN HLD plan continue current mgmt rest as per the team s/p abx course rest as per the team
--- NOTE | 2020-01-31 12:15 | PN ---
Progress Note, Physician Chief Complaint: Acute on Chronic Hypoxic and Hypercapneic Respiratory Failure s/p Tracheostomy Pneumonia ARDS Septic Shock Acute on Chronic Diastolic Heart Failure Pulmonary HTN Paroxysmal Atrial Fibrillation CAD Acute Kidney Injury COPD JUANA/OHS SBO History of Present Illness: NAD, alert and oriented wants to eat AXR this AM- no SBO Tolerating Trach collar well - Current Medication List Current Medications: Active Medications Acetaminophen (Tylenol Oral Solution -) 650 mg PO Q4H PRN PRN Reason: PAIN Amino Acids (Prosource No Carb Liquid Pkt) 30 ml NGT DAILY@0800 [facility] Last Admin: 01/26/20 09:00 Dose: 30 ml Documented by: Apixaban (Eliquis -) 5 mg NGT BID [facility] Last Admin: 01/26/20 10:39 Dose: 5 mg Documented by: Ascorbic Acid (Vitamin C Oral Solution -) 1,000 mg NGT DAILY [facility] Last Admin: 01/26/20 10:40 Dose: 1,000 mg Documented by: Buspirone HCl (Buspar -) 5 mg GT BID [facility] Last Admin: 01/26/20 10:39 Dose: 5 mg Documented by: Chlorhexidine Gluconate (Peridex -) 15 ml MM BID [facility] Last Admin: 01/31/20 11:11 Dose: 15 ml Documented by: Enoxaparin Sodium (Lovenox -) 100 mg SQ BID [facility] Last Admin: 01/31/20 11:11 Dose: 100 mg Documented by: Escitalopram Oxalate (Lexapro Oral Solution -) 10 mg GT DAILY [facility] Last Admin: 01/26/20 10:39 Dose: 10 mg Documented by: Famotidine (Pepcid) 20 mg PEG DAILY [facility] Last Admin: 01/26/20 10:40 Dose: 20 mg Documented by: Potassium Chloride 40 meq/ (Amino Acids) 1,020 mls @ 84 mls/hr IVPB Q12H [facility] Last Admin: 01/31/20 06:39 Dose: 84 mls/hr Documented by: Famotidine/Sodium Chloride (Pepcid 20 Mg Premixed Ivpb -) 20 mg in 50 mls @ 100 mls/hr IVPB DAILY [facility] Last Admin: 01/31/20 11:11 Dose: 100 mls/hr Documented by: Metoprolol Tartrate (Lopressor -) 25 mg NGT BID [facility] Last Admin: 01/26/20 10:39 Dose: 25 mg Documented by: Metoprolol Tartrate (Lopressor Injection -) 5 mg IVPB Q4H PRN PRN Reason: TACHYCARDIA Multivitamins/Minerals (Certavite-Antioxidant Liquid) 15 ml NGT DAILY [facility] Last Admin: 01/26/20 10:39 Dose: 15 ml Documented by: Trazodone HCl (Desyrel -) 50 mg NGT HS [facility] Last Admin: 01/25/20 23:22 Dose: 50 mg Documented by: - Objective Vital Signs: Vital Signs Temperature 98.9 F 01/31/20 10:00 Pulse Rate 91 H 01/31/20 12:13 Respiratory Rate 01/31/20 10:00 Blood Pressure 131/90 01/31/20 10:00 O2 Sat by Pulse Oximetry (%) 93 L 01/31/20 12:13 Constitutional: Yes: Well Nourished, No Distress, Calm, Obese Cardiovascular: Yes: Regular Rate and Rhythm Respiratory: Yes: Regular, CTA Bilaterally, Other (trach collar) Gastrointestinal: Yes: Normal Bowel Sounds, Soft Genitourinary: Yes: Incontinence Musculoskeletal: Yes: Muscle Weakness Extremities: Yes: WNL Edema: No Peripheral Pulses WNL: Yes Neurological: Yes: Alert, Oriented Psychiatric: Yes: Alert, Oriented Labs: CBC, BMP 01/31/20 07:40 01/31/20 07:40 INR, PTT INR 1.23 (0.83-1.09) H 01/10/20 13:50 Problem List - Problems (1) SBO (small bowel obstruction) Assessment/Plan: -resolved -Surgery on board -AXR-no SBO -D/C NGT -Start Oral feeds- dysphagia puree + thin liquids -Monitor for N/V -D/C clinimix once tolerates Oral feeds Problems reviewed: Yes Code(s): K56.609 - UNSP INTESTNL OBST, UNSP TO PARTIAL VERSUS COMPLETE OBST (2) Morbid obesity Problems reviewed: Yes Code(s): E66.01 - MORBID (SEVERE) OBESITY DUE TO EXCESS CALORIES (3) Pneumonia Assessment/Plan: -SC:MRSA -Off abx -Completed 2 weeks of Vanco -ID on board -Afebrile Problems reviewed: Yes Code(s): J18.9 - PNEUMONIA, UNSPECIFIED ORGANISM Qualifiers: Pneumonia type: due to unspecified organism Laterality: right Lung location: lower lobe of lung Qualified Code(s): J18.9 - Pneumonia, unspecified organism (4) Atrial fibrillation Assessment/Plan: -Chronic, rate controlled -Restart eliquis 5 mg GT BID Problems reviewed: Yes Code(s): I48.91 - UNSPECIFIED ATRIAL FIBRILLATION Qualifiers: Atrial fibrillation type: paroxysmal Qualified Code(s): I48.0 - Paroxysmal atrial fibrillation (5) Respiratory failure with hypoxia and hypercapnia Assessment/Plan: -Pulmonary on board -[facility] vent s/b -Wean as tolerated -SNF upon d/c- 1st preference [facility] -Repeat COVID 19 in preparation of discharge [place] [place] -Encouraged daily PMV use -Trial of Trach collar -keep it overnight if tolerates Problems reviewed: Yes Code(s): J96.91 - RESPIRATORY FAILURE, UNSPECIFIED WITH HYPOXIA; J96.92 - RESPIRATORY FAILURE, UNSPECIFIED WITH HYPERCAPNIA Qualifiers: Chronicity: acute on chronic Qualified Code(s): J96.21 - Acute and chronic respiratory failure with hypoxia; J96.22 - Acute and chronic respiratory failure with hypercapnia (6) Hypokalemia Assessment/Plan: -Resolved -Nephrology on board -Monitor trend -Continue clinimix Problems reviewed: Yes Code(s): E87.6 - HYPOKALEMIA (7) MRSA (methicillin resistant staphylococcus aureus) pneumonia Problems reviewed: Yes Code(s): J15.212 - PNEUMONIA DUE TO METHICILLIN RESISTANT STAPHYLOCOCCUS AUREUS (8) Anxiety Assessment/Plan: -Restart SSRI-lexapro 10 mg GT daily -Restart Buspirone 5 mg GT BID PRN for breakthrough -D/C Ativan PRN- making pt too lethargic Problems reviewed: Yes Code(s): F41.9 - ANXIETY DISORDER, UNSPECIFIED Assessment/Plan See problem list
[2020-01-31] MEDS: FAMOTIDINE 40 MG/5 ML ORAL SUSPENSION PEG SCH (12:33)
[2020-01-31] MEDS: METOPROLOL TARTRATE 25 MG TABLET (FP) NGT SCH ×2 (13:02→22:20)
[2020-01-31] MEDS: APIXABAN 5 MG TABLET NGT SCH ×2 (13:02→22:20)
--- NOTE | 2020-01-31 16:47 | PN ---
Progress Note, Physician History of Present Illness: Pt seen and examined at bedside. He is started on feeds today. - Current Medication List Current Medications: Active Medications Acetaminophen (Tylenol Oral Solution -) 650 mg PO Q4H PRN PRN Reason: PAIN Amino Acids (Prosource No Carb Liquid Pkt) 30 ml NGT DAILY@0800 [facility] Last Admin: 01/26/20 09:00 Dose: 30 ml Documented by: Apixaban (Eliquis -) 5 mg NGT BID [facility] Last Admin: 01/31/20 13:02 Dose: 5 mg Documented by: Ascorbic Acid (Vitamin C Oral Solution -) 1,000 mg NGT DAILY [facility] Last Admin: 01/26/20 10:40 Dose: 1,000 mg Documented by: Buspirone HCl (Buspar -) 5 mg GT BID [facility] Last Admin: 01/26/20 10:39 Dose: 5 mg Documented by: Chlorhexidine Gluconate (Peridex -) 15 ml MM BID [facility] Last Admin: 01/31/20 11:11 Dose: 15 ml Documented by: Escitalopram Oxalate (Lexapro Oral Solution -) 10 mg GT DAILY [facility] Last Admin: 01/26/20 10:39 Dose: 10 mg Documented by: Famotidine (Pepcid) 20 mg PEG DAILY [facility] Last Admin: 01/31/20 12:33 Dose: Not Given Documented by: Potassium Chloride 40 meq/ (Amino Acids) 1,020 mls @ 84 mls/hr IVPB Q12H [facility] Last Admin: 01/31/20 06:39 Dose: 84 mls/hr Documented by: Famotidine/Sodium Chloride (Pepcid 20 Mg Premixed Ivpb -) 20 mg in 50 mls @ 100 mls/hr IVPB DAILY [facility] Last Admin: 01/31/20 11:11 Dose: 100 mls/hr Documented by: Metoprolol Tartrate (Lopressor -) 25 mg NGT BID [facility] Last Admin: 01/31/20 13:02 Dose: 25 mg Documented by: Multivitamins/Minerals (Certavite-Antioxidant Liquid) 15 ml NGT DAILY [facility] Last Admin: 01/26/20 10:39 Dose: 15 ml Documented by: Trazodone HCl (Desyrel -) 50 mg NGT HS [facility] Last Admin: 01/25/20 23:22 Dose: 50 mg Documented by: - Objective Vital Signs: Vital Signs Temperature 98.9 F 01/31/20 14:00 Pulse Rate 83 01/31/20 16:00 Respiratory Rate 20 01/31/20 14:00 Blood Pressure 111/82 01/31/20 14:00 O2 Sat by Pulse Oximetry (%) 96 01/31/20 16:00 Constitutional: Yes: Calm Eyes: Yes: Conjunctiva Clear HENT: Yes: Atraumatic Neck: Yes: Supple Cardiovascular: Yes: S1, S2 Respiratory: Yes: Other (trache) Gastrointestinal: Yes: Normal Bowel Sounds, Soft Genitourinary: Yes: WNL Musculoskeletal: Yes: WNL Edema: No Neurological: Yes: Oriented Psychiatric: Yes: Oriented Labs: CBC, BMP 01/31/20 07:40 01/31/20 07:40 INR, PTT INR 1.23 (0.83-1.09) H 01/10/20 13:50 Problem List - Problems (1) Anasarca Code(s): R60.1 - GENERALIZED EDEMA (2) Congestive heart failure (CHF) Code(s): I50.9 - HEART FAILURE, UNSPECIFIED Qualifiers: Heart failure type: diastolic Heart failure chronicity: acute on chronic Qualified Code(s): I50.33 - Acute on chronic diastolic (congestive) heart failure (3) Acute kidney injury Code(s): N17.9 - ACUTE KIDNEY FAILURE, UNSPECIFIED Assessment/Plan Current Medications Generic Name Dose Route Start Last Admin Trade Name Freq PRN Reason Stop Dose Admin Acetaminophen 650 mg 01/24/20 17:28 Tylenol Oral Solution - PO Q4H PRN PAIN Amino Acids 30 ml 01/12/20 08:00 01/26/20 09:00 Prosource No Carb Liquid Pkt NGT 30 ml DAILY@0800 [facility] Administration Apixaban 5 mg 01/12/20 11:30 01/31/20 13:02 Eliquis - NGT 5 mg BID [facility] Administration Ascorbic Acid 1,000 mg 01/12/20 11:30 01/26/20 10:40 Vitamin C Oral Solution - NGT 1,000 mg DAILY [facility] Administration Buspirone HCl 5 mg 01/25/20 22:00 01/26/20 10:39 Buspar - GT 5 mg BID [facility] Administration Chlorhexidine Gluconate 15 ml 01/12/20 10:00 01/31/20 11:11 Peridex - MM 15 ml BID [facility] Administration Escitalopram Oxalate 10 mg 01/25/20 10:00 01/26/20 10:39 Lexapro Oral Solution - GT 10 mg DAILY [facility] Administration Famotidine 20 mg 01/25/20 10:00 01/31/20 12:33 Pepcid PEG Not Given DAILY [facility] Potassium Chloride 40 meq/ 1,020 mls @ 84 mls/hr 01/26/20 14:45 01/31/20 06:39 Amino Acids IVPB 84 mls/hr Q12H [facility] Administration Famotidine/Sodium Chloride 20 mg in 50 mls @ 100 mls/hr 01/27/20 10:00 01/31/20 11:11 Pepcid 20 Mg Premixed Ivpb - IVPB 100 mls/hr DAILY [facility] Administration Metoprolol Tartrate 25 mg 01/12/20 11:26 01/31/20 13:02 Lopressor - NGT 25 mg BID [facility] Administration Multivitamins/Minerals 15 ml 01/12/20 11:32 01/26/20 10:39 Certavite-Antioxidant Liquid NGT 15 ml DAILY [facility] Administration Trazodone HCl 50 mg 01/25/20 22:00 01/25/20 23:22 Desyrel - NGT 50 mg HS [facility] Administration Impression 1. MONIE 2. CHF acute 3. acute resp failure requiring intubation 4. atrial fibrillation 5. hx of htn 6. obesity 7. chronic smoker 8. hypokalemia 9. partial sbo Plan - feeds started - d/c fluids if he tolerated - renal function stable - discussed with medical team - repeat labs in am - pulm rehab
[2020-01-31] MEDS: traZODone HCL 50 MG TABLET (FP) NGT SCH (22:20)
[2020-01-31] MEDS: busPIRone HCL 5 MG TABLET GT SCH (22:20)
[2020-02-01] MEDS: POTASSIUM CHLORIDE 40 MEQ in AMINO ACIDS 4.25%/D5W 1,000 ML IVPB SCH (03:42)
[2020-02-01 08:17] LABS: HEMATOCRIT 37.2 % (35.4-49); HEMOGLOBIN 11.3 GM/dL (11.7-16.9); MCH 25.4 pg (25.7-33.7); MCHC 30.5 g/dl (32.0-35.9); MEAN CELL VOLUME 83.4 fl (80-96); MEAN PLT VOLUME 8.1 fl (7.5-11.1); PLATELET COUNT 209 K/MM3 (134-434); RBC 4.46 M/mm3 (4.00-5.60); RDW 24.3 % (11.9-15.9); WHITE BLOOD COUNT 6.6 K/mm3 (4.0-10.0)
[2020-02-01 08:35] LABS: ALBUMIN 2.6 g/dl (3.4-5.0); BILIRUBIN,TOTAL 1.8 mg/dL (0.2-1); BLOOD UREA NITROGEN 17.1 mg/dL (7-18); CALCIUM 9.3 mg/dL (8.5-10.1); CREATININE 0.6 mg/dL (0.55-1.3); POTASSIUM 4.4 mmol/L (3.5-5.1); TOT PROT 5.8 g/dl (6.4-8.2)
[2020-02-01] MEDS ORDERED: PT OWN MED DRAWER 7, Y5N ONE (09:22)
[2020-02-01 09:57] LABS: PLATELET ESTIMATE NORMAL
[2020-02-01] MEDS: AMINO ACIDS/PROTEIN HYDROLYS 30 ML LIQUID.PKT NGT SCH (10:09)
[2020-02-01] MEDS: FAMOTIDINE 20 MG/50 ML IVPB 20 MG/50 ML MG IVPB SCH (10:10)
[2020-02-01] MEDS: METOPROLOL TARTRATE 25 MG TABLET (FP) NGT SCH ×2 (10:10→21:30)
[2020-02-01] MEDS: busPIRone HCL 5 MG TABLET GT SCH ×2 (10:10→21:30)
--- NOTE | 2020-02-01 10:10 | PN ---
Progress Note, Physician Chief Complaint: Acute on Chronic Hypoxic and Hypercapneic Respiratory Failure s/p Tracheostomy Pneumonia ARDS Septic Shock Acute on Chronic Diastolic Heart Failure Pulmonary HTN Paroxysmal Atrial Fibrillation CAD Acute Kidney Injury COPD JUANA/OHS SBO History of Present Illness: NAD, alert and oriented Tolerating PO intake Tolerated T/C overnight Wants to go home OOB in chair with PT - Current Medication List Current Medications: Active Medications Acetaminophen (Tylenol Oral Solution -) 650 mg PO Q4H PRN PRN Reason: PAIN Amino Acids (Prosource No Carb Liquid Pkt) 30 ml NGT DAILY@0800 [facility] Last Admin: 01/26/20 09:00 Dose: 30 ml Documented by: Apixaban (Eliquis -) 5 mg NGT BID [facility] Last Admin: 01/31/20 22:20 Dose: 5 mg Documented by: Ascorbic Acid (Vitamin C Oral Solution -) 1,000 mg NGT DAILY [facility] Last Admin: 01/26/20 10:40 Dose: 1,000 mg Documented by: Buspirone HCl (Buspar -) 5 mg GT BID [facility] Last Admin: 01/31/20 22:20 Dose: 5 mg Documented by: Chlorhexidine Gluconate (Peridex -) 15 ml MM BID [facility] Last Admin: 01/31/20 22:21 Dose: 15 ml Documented by: Escitalopram Oxalate (Lexapro Oral Solution -) 10 mg GT DAILY [facility] Last Admin: 01/26/20 10:39 Dose: 10 mg Documented by: Famotidine (Pepcid) 20 mg PEG DAILY [facility] Last Admin: 01/31/20 12:33 Dose: Not Given Documented by: Potassium Chloride 40 meq/ (Amino Acids) 1,020 mls @ 84 mls/hr IVPB Q12H [facility] Last Admin: 02/01/20 03:42 Dose: Not Given Documented by: Famotidine/Sodium Chloride (Pepcid 20 Mg Premixed Ivpb -) 20 mg in 50 mls @ 100 mls/hr IVPB DAILY [facility] Last Admin: 01/31/20 11:11 Dose: 100 mls/hr Documented by: Metoprolol Tartrate (Lopressor -) 25 mg NGT BID [facility] Last Admin: 01/31/20 22:20 Dose: 25 mg Documented by: Multivitamins/Minerals (Certavite-Antioxidant Liquid) 15 ml NGT DAILY [facility] Last Admin: 01/26/20 10:39 Dose: 15 ml Documented by: Trazodone HCl (Desyrel -) 50 mg NGT HS [facility] Last Admin: 01/31/20 22:20 Dose: 50 mg Documented by: - Objective Vital Signs: Vital Signs Temperature 98.1 F 02/01/20 06:00 Pulse Rate 85 02/01/20 08:04 Respiratory Rate 20 02/01/20 06:00 Blood Pressure 113/43 L 02/01/20 06:00 O2 Sat by Pulse Oximetry (%) 95 02/01/20 08:04 Constitutional: Yes: Well Nourished, No Distress, Calm, Obese Cardiovascular: Yes: Regular Rate and Rhythm Respiratory: Yes: Regular, CTA Bilaterally, Other (collar) Gastrointestinal: Yes: Normal Bowel Sounds, Soft Genitourinary: Yes: WNL Musculoskeletal: Yes: WNL Extremities: Yes: WNL Edema: No Neurological: Yes: Alert, Oriented Psychiatric: Yes: Alert, Oriented Labs: CBC, BMP 02/01/20 07:25 02/01/20 07:25 INR, PTT INR 1.23 (0.83-1.09) H 01/10/20 13:50 Problem List - Problems (1) SBO (small bowel obstruction) Assessment/Plan: -resolved -Surgery on board -AXR-no SBO -D/C'd NGT -ToleratingOral feeds- dysphagia puree + thin liquids -Monitor for N/V Problems reviewed: Yes Code(s): K56.609 - UNSP INTESTNL OBST, UNSP TO PARTIAL VERSUS COMPLETE OBST (2) Morbid obesity Problems reviewed: Yes Code(s): E66.01 - MORBID (SEVERE) OBESITY DUE TO EXCESS CALORIES (3) Pneumonia Assessment/Plan: -SC:MRSA -Off abx -Completed 2 weeks of Vanco -ID on board -Afebrile Code(s): J18.9 - PNEUMONIA, UNSPECIFIED ORGANISM Qualifiers: Pneumonia type: due to unspecified organism Laterality: right Lung location: lower lobe of lung Qualified Code(s): J18.9 - Pneumonia, unspecified organism (4) Atrial fibrillation Assessment/Plan: -Chronic, rate controlled -Restart eliquis 5 mg GT BID Problems reviewed: Yes Code(s): I48.91 - UNSPECIFIED ATRIAL FIBRILLATION Qualifiers: Atrial fibrillation type: paroxysmal Qualified Code(s): I48.0 - Paroxysmal atrial fibrillation (5) Respiratory failure with hypoxia and hypercapnia Assessment/Plan: -Pulmonary on board -Mech vent s/b -Wean as tolerated -SNF upon d/c- 1st preference [facility] -Repeat COVID 19 in preparation of discharge -[facility] no aspiration -Encouraged daily PMV use -Trial of Trach collar -keep it overnight if tolerates Problems reviewed: Yes Code(s): J96.91 - RESPIRATORY FAILURE, UNSPECIFIED WITH HYPOXIA; J96.92 - RESPIRATORY FAILURE, UNSPECIFIED WITH HYPERCAPNIA Qualifiers: Chronicity: acute on chronic Qualified Code(s): J96.21 - Acute and chronic respiratory failure with hypoxia; J96.22 - Acute and chronic respiratory failure with hypercapnia (6) Hypokalemia Assessment/Plan: -Resolved -Nephrology on board -Monitor trend -Continue clinimix Problems reviewed: Yes Code(s): E87.6 - HYPOKALEMIA (7) MRSA (methicillin resistant staphylococcus aureus) pneumonia Problems reviewed: Yes Code(s): J15.212 - PNEUMONIA DUE TO METHICILLIN RESISTANT STAPHYLOCOCCUS AUREUS (8) Anxiety Assessment/Plan: -Restart SSRI-lexapro 10 mg GT daily -Restart Buspirone 5 mg GT BID PRN for breakthrough -D/C Ativan PRN- making pt too lethargic Problems reviewed: Yes Code(s): F41.9 - ANXIETY DISORDER, UNSPECIFIED Assessment/Plan See problem list Awaiting SNF placement
[2020-02-01] MEDS: APIXABAN 5 MG TABLET NGT SCH ×2 (10:11→21:30)
[2020-02-01] MEDS: MULTIVIT-MINERALS ORAL LIQUID NGT SCH (10:11)
[2020-02-01] MEDS: ASCORBIC ACID 500 MG/5 ML UNIT DOSE CUP NGT SCH (10:16)
[2020-02-01] MEDS: ESCITALOPRAM OXALATE 5 MG/5 ML GT SCH (10:17)
[2020-02-01] MEDS: CHLORHEXIDINE GLUCONATE 0.12% 15ML CUP MM SCH ×2 (10:17→21:31)
--- NOTE | 2020-02-01 10:36 | PN ---
Progress Note, Physician History of Present Illness: PULMONARY ALERT ON TRACH COLLAR,-SOB - Current Medication List Current Medications: Active Medications Acetaminophen (Tylenol Oral Solution -) 650 mg PO Q4H PRN PRN Reason: PAIN Amino Acids (Prosource No Carb Liquid Pkt) 30 ml NGT DAILY@0800 [facility] Last Admin: 02/01/20 10:09 Dose: 30 ml Documented by: Apixaban (Eliquis -) 5 mg NGT BID [facility] Last Admin: 02/01/20 10:11 Dose: 5 mg Documented by: Ascorbic Acid (Vitamin C Oral Solution -) 1,000 mg NGT DAILY [facility] Last Admin: 02/01/20 10:16 Dose: 1,000 mg Documented by: Buspirone HCl (Buspar -) 5 mg GT BID [facility] Last Admin: 02/01/20 10:10 Dose: 5 mg Documented by: Chlorhexidine Gluconate (Peridex -) 15 ml MM BID [facility] Last Admin: 02/01/20 10:17 Dose: 15 ml Documented by: Escitalopram Oxalate (Lexapro Oral Solution -) 10 mg GT DAILY [facility] Last Admin: 02/01/20 10:17 Dose: 10 mg Documented by: Famotidine (Pepcid) 20 mg PEG DAILY [facility] Last Admin: 01/31/20 12:33 Dose: Not Given Documented by: Potassium Chloride 40 meq/ (Amino Acids) 1,020 mls @ 84 mls/hr IVPB Q12H [facility] Last Admin: 02/01/20 03:42 Dose: Not Given Documented by: Famotidine/Sodium Chloride (Pepcid 20 Mg Premixed Ivpb -) 20 mg in 50 mls @ 100 mls/hr IVPB DAILY [facility] Last Admin: 02/01/20 10:10 Dose: Not Given Documented by: Metoprolol Tartrate (Lopressor -) 25 mg NGT BID [facility] Last Admin: 02/01/20 10:10 Dose: 25 mg Documented by: Multivitamins/Minerals (Certavite-Antioxidant Liquid) 15 ml NGT DAILY [facility] Last Admin: 02/01/20 10:11 Dose: 15 ml Documented by: Trazodone HCl (Desyrel -) 50 mg NGT HS [facility] Last Admin: 01/31/20 22:20 Dose: 50 mg Documented by: - Objective Vital Signs: Vital Signs Temperature 98.1 F 02/01/20 06:00 Pulse Rate 85 02/01/20 08:04 Respiratory Rate 20 02/01/20 06:00 Blood Pressure 113/43 L 02/01/20 06:00 O2 Sat by Pulse Oximetry (%) 95 02/01/20 08:04 Constitutional: Yes: Well Nourished, Calm Eyes: Yes: WNL HENT: Yes: WNL Neck: Yes: Supple (TRACH) Cardiovascular: Yes: Regular Rate and Rhythm, S1, S2 Respiratory: Yes: Diminished Gastrointestinal: Yes: Normal Bowel Sounds, Soft Extremities: Yes: WNL Edema: No Labs: CBC, BMP 02/01/20 07:25 02/01/20 07:25 INR, PTT INR 1.23 (0.83-1.09) H 01/10/20 13:50 Assessment/Plan ASSESSMENT AND PLAN: Acute on Chronic Hypoxic and Hypercapneic Respiratory Failure improved Pneumonia ARDS improved S/P Septic Shock Acute on Chronic Diastolic Heart Failure Pulmonary HTN Paroxysmal Atrial Fibrillation CAD Acute Kidney Injury Likely COPD JUANA/OHS HTN Hypercholesterolemia - - rate control - anticoagulation - trach collar as tolerated - monitor urine output, creatinine - DVT/GI prophylaxis - nutritional support DR MELTON
--- NOTE | 2020-02-01 10:48 | PN ---
Progress Note, Physician History of Present Illness: 64 year old male with a past medical history of HTN, HLD, JUANA (not using CPAP), COPD, GERD, systolic congestive heart failure, paroxysmal atrial fibrillation (on Eliquis, s/p cardioversion 11/2016) who presented with 3 weeks of gradual onset anasarca, scrotal swelling and mild shortness of breath worse on exertion. CXR s/f diffused bilat opacities with c/f PNA +/-fluid overload, ?bilateral lower extremity cellulitis and bilateral hydrocele, and respiratory acidosis is admitted for Acute hypercapneic respiratory failure and Acute CHF exacerbation, intubated for progressive hypercarbic respiratory failure, decreased mental status on BiPAP. 01/11/2020 s/p percutaneous tracheostomy, awake off sedation. Vented on volume assist control with 40% FiO2, PEEP 5. Placed on CPAP/PS. 01/12/2020 Off sedation on vent 01/12: no acute cardiac events; had elevated temp 01/13: No significant change01/14: No cardiac events 01/15: Vented, awake. Currently on SIMV RR 8 PS 10. Abd slightly distended 01/16: Vented awake on SIMV RR 8 PS 10. No fevers. 01/17: Ileus noted on abd/pelvic CT, interactive on vent 01/18: Small BM, NGT inserted 01/22: Improving AXR, patient remains on a ventilator via tracheostomy, awake and alert in no distress 01/24: Vent wean on trach, awake tolerating enteral feeds, ileus resolving 01/25: Vent wean on trach, no acute changes 01/27: Recurrent pSBO, starting on TPN per surgery 01/28: Remains NPO with recurrent ileus, on 40% TC 01/29: Passing flatus, abd/pelvic CT negative for pSBO 01/30: GI recommends IR g-tube, started dysphagia pureed diet with resolving ileus - Current Medication List Current Medications: Active Medications Acetaminophen (Tylenol Oral Solution -) 650 mg PO Q4H PRN PRN Reason: PAIN Amino Acids (Prosource No Carb Liquid Pkt) 30 ml NGT DAILY@0800 [facility] Last Admin: 02/01/20 10:09 Dose: 30 ml Documented by: Apixaban (Eliquis -) 5 mg NGT BID [facility] Last Admin: 02/01/20 10:11 Dose: 5 mg Documented by: Ascorbic Acid (Vitamin C Oral Solution -) 1,000 mg NGT DAILY [facility] Last Admin: 02/01/20 10:16 Dose: 1,000 mg Documented by: Buspirone HCl (Buspar -) 5 mg GT BID [facility] Last Admin: 02/01/20 10:10 Dose: 5 mg Documented by: Chlorhexidine Gluconate (Peridex -) 15 ml MM BID [facility] Last Admin: 02/01/20 10:17 Dose: 15 ml Documented by: Escitalopram Oxalate (Lexapro Oral Solution -) 10 mg GT DAILY [facility] Last Admin: 02/01/20 10:17 Dose: 10 mg Documented by: Famotidine (Pepcid) 20 mg PEG DAILY [facility] Last Admin: 01/31/20 12:33 Dose: Not Given Documented by: Potassium Chloride 40 meq/ (Amino Acids) 1,020 mls @ 84 mls/hr IVPB Q12H [facility] Last Admin: 02/01/20 03:42 Dose: Not Given Documented by: Famotidine/Sodium Chloride (Pepcid 20 Mg Premixed Ivpb -) 20 mg in 50 mls @ 100 mls/hr IVPB DAILY [facility] Last Admin: 02/01/20 10:10 Dose: Not Given Documented by: Metoprolol Tartrate (Lopressor -) 25 mg NGT BID [facility] Last Admin: 02/01/20 10:10 Dose: 25 mg Documented by: Multivitamins/Minerals (Certavite-Antioxidant Liquid) 15 ml NGT DAILY [facility] Last Admin: 02/01/20 10:11 Dose: 15 ml Documented by: Trazodone HCl (Desyrel -) 50 mg NGT HS [facility] Last Admin: 01/31/20 22:20 Dose: 50 mg Documented by: - Objective Vital Signs: Vital Signs Temperature 98.1 F 02/01/20 06:00 Pulse Rate 85 02/01/20 08:04 Respiratory Rate 20 02/01/20 06:00 Blood Pressure 113/43 L 02/01/20 06:00 O2 Sat by Pulse Oximetry (%) 95 02/01/20 08:04 Constitutional: Yes: No Distress, Calm HENT: Yes: Other (TC) Cardiovascular: Yes: Regular Rate and Rhythm Respiratory: Yes: Diminished, Rhonchi Gastrointestinal: Yes: Normal Bowel Sounds, Soft, Abdomen, Obese Edema: No Labs: CBC, BMP 02/01/20 07:25 02/01/20 07:25 INR, PTT INR 1.23 (0.83-1.09) H 01/10/20 13:50 Problem List - Problems (1) Congestive heart failure (CHF) Code(s): I50.9 - HEART FAILURE, UNSPECIFIED Qualifiers: Heart failure type: diastolic Heart failure chronicity: acute on chronic Qualified Code(s): I50.33 - Acute on chronic diastolic (congestive) heart failure (2) Pneumonia Code(s): J18.9 - PNEUMONIA, UNSPECIFIED ORGANISM Qualifiers: Pneumonia type: due to unspecified organism Laterality: right Lung location: lower lobe of lung Qualified Code(s): J18.9 - Pneumonia, unspecified organism (3) Acute on chronic diastolic (congestive) heart failure Code(s): I50.33 - ACUTE ON CHRONIC DIASTOLIC (CONGESTIVE) HEART FAILURE (4) Acute respiratory failure with hypoxia and hypercarbia Code(s): J96.01 - ACUTE RESPIRATORY FAILURE WITH HYPOXIA; J96.02 - ACUTE RESPIRATORY FAILURE WITH HYPERCAPNIA (5) Atrial fibrillation Code(s): I48.91 - UNSPECIFIED ATRIAL FIBRILLATION Qualifiers: Atrial fibrillation type: paroxysmal Qualified Code(s): I48.0 - Paroxysmal atrial fibrillation (6) COPD (chronic obstructive pulmonary disease) Code(s): J44.9 - CHRONIC OBSTRUCTIVE PULMONARY DISEASE, UNSPECIFIED Qualifiers: COPD type: unspecified COPD Qualified Code(s): J44.9 - Chronic obstructive pulmonary disease, unspecified (7) Hypertension Code(s): I10 - ESSENTIAL (PRIMARY) HYPERTENSION Qualifiers: Hypertension type: essential hypertension Qualified Code(s): I10 - Essential (primary) hypertension (8) Pleural effusion Code(s): J90 - PLEURAL EFFUSION, NOT ELSEWHERE CLASSIFIED Assessment/Plan 10/26/2017 Normal LV size with mild LVH, normal LV fxn, normal RV size and fxn, mild LAE, mild MR, mild-mod TR, mild ME, RVSP 43 mmHg 11/19/2016 Lexiscan Myoview: Apical ischemia, LVEF 45-52% 10/06/2016 Echocardiography revealed mild to moderate LV systolic dysfunction, moderate TR, RVSP of 30-40 mmHg 1. Acute on chronic Hypoxic and Hypercapneic Respiratory Failure with tracheostomy 2. Acute on chronic LV Diastolic Heart Failure with pleural effusion 3. Pneumonia, ARDS (septic shock) resolved 4. Paroxysmal atrial fibrillation with periods of rapid ventricular response post DCCV, [id number] score of 2 5. Obstructive Sleep Apnea/Obesity 6. HTN/HCVD 7. Hypercholesterolemia 8. CAD, angina pectoris 9. Bilateral cellulitis with h/o abscess s/p debridement 10. Bilateral hydrocele 11. Recurrent ileus vs pSBO due to underlying co morbid conditions resolving PLAN: 1. TC and PMV as tolerated, titrate FiO2, PEEP to keep SpO2 >90% 2. DVT and GI prophylaxis, dysphagia pureed diet as tolerated, NGT in place 3. Diuretics held with monitor renal function and electrolytes 4. Continue Lopressor 25 mg BID and Eliquis 5 mg BID 5. Completed vanco course
--- NOTE | 2020-02-01 10:59 | PN ---
Progress Note, Physician History of Present Illness: stable no new issues surgical note noted - Current Medication List Current Medications: Active Medications Acetaminophen (Tylenol Oral Solution -) 650 mg PO Q4H PRN PRN Reason: PAIN Amino Acids (Prosource No Carb Liquid Pkt) 30 ml NGT DAILY@0800 [facility] Last Admin: 02/01/20 10:09 Dose: 30 ml Documented by: Apixaban (Eliquis -) 5 mg NGT BID [facility] Last Admin: 02/01/20 10:11 Dose: 5 mg Documented by: Ascorbic Acid (Vitamin C Oral Solution -) 1,000 mg NGT DAILY [facility] Last Admin: 02/01/20 10:16 Dose: 1,000 mg Documented by: Buspirone HCl (Buspar -) 5 mg GT BID [facility] Last Admin: 02/01/20 10:10 Dose: 5 mg Documented by: Chlorhexidine Gluconate (Peridex -) 15 ml MM BID [facility] Last Admin: 02/01/20 10:17 Dose: 15 ml Documented by: Escitalopram Oxalate (Lexapro Oral Solution -) 10 mg GT DAILY [facility] Last Admin: 02/01/20 10:17 Dose: 10 mg Documented by: Famotidine (Pepcid) 20 mg PEG DAILY [facility] Last Admin: 01/31/20 12:33 Dose: Not Given Documented by: Potassium Chloride 40 meq/ (Amino Acids) 1,020 mls @ 84 mls/hr IVPB Q12H [facility] Last Admin: 02/01/20 03:42 Dose: Not Given Documented by: Famotidine/Sodium Chloride (Pepcid 20 Mg Premixed Ivpb -) 20 mg in 50 mls @ 100 mls/hr IVPB DAILY [facility] Last Admin: 02/01/20 10:10 Dose: Not Given Documented by: Metoprolol Tartrate (Lopressor -) 25 mg NGT BID [facility] Last Admin: 02/01/20 10:10 Dose: 25 mg Documented by: Multivitamins/Minerals (Certavite-Antioxidant Liquid) 15 ml NGT DAILY [facility] Last Admin: 02/01/20 10:11 Dose: 15 ml Documented by: Trazodone HCl (Desyrel -) 50 mg NGT HS [facility] Last Admin: 01/31/20 22:20 Dose: 50 mg Documented by: - Objective Vital Signs: Vital Signs Temperature 98.1 F 02/01/20 06:00 Pulse Rate 85 02/01/20 08:04 Respiratory Rate 20 02/01/20 06:00 Blood Pressure 113/43 L 02/01/20 06:00 O2 Sat by Pulse Oximetry (%) 95 02/01/20 08:04 Constitutional: Yes: No Distress, Calm Respiratory: Yes: Mechanically Ventilated, Other Gastrointestinal: Yes: Normal Bowel Sounds, Soft Musculoskeletal: Yes: WNL Extremities: Yes: WNL Neurological: Yes: Alert, Oriented Psychiatric: Yes: Alert, Oriented Labs: CBC, BMP 02/01/20 07:25 02/01/20 07:25 INR, PTT INR 1.23 (0.83-1.09) H 01/10/20 13:50 Assessment/Plan Problem List - Problems (1) Edema of scrotum Code(s): N50.89 - OTHER SPECIFIED DISORDERS OF THE MALE GENITAL ORGANS (2) Morbid obesity Code(s): E66.01 - MORBID (SEVERE) OBESITY DUE TO EXCESS CALORIES (3) Acute on chronic diastolic (congestive) heart failure Code(s): I50.33 - ACUTE ON CHRONIC DIASTOLIC (CONGESTIVE) HEART FAILURE (4) Acute respiratory failure requiring reintubation Code(s): J96.00 - ACUTE RESPIRATORY FAILURE, UNSP W HYPOXIA OR HYPERCAPNIA (5) Afib Code(s): I48.91 - UNSPECIFIED ATRIAL FIBRILLATION Qualifiers: Atrial fibrillation type: paroxysmal Qualified Code(s): I48.0 - Paroxysmal atrial fibrillation Assessment/Plan Acute respiratory failure s/p trach on MV PNA Ileus/ pseudoobstruction CHF b/l LE Cellulitis b/l Hydrocele MONIE Paroxysmal AFIB COPD JUANA CAD HTN HLD plan continue current mgmt rest as per the team s/p abx course rest as per the team
--- NOTE | 2020-02-01 11:54 | PN ---
Progress Note, Physician History of Present Illness: Pt seen and examined. He is asking for regular food. - Current Medication List Current Medications: Active Medications Acetaminophen (Tylenol Oral Solution -) 650 mg PO Q4H PRN PRN Reason: PAIN Amino Acids (Prosource No Carb Liquid Pkt) 30 ml NGT DAILY@0800 [facility] Last Admin: 02/01/20 10:09 Dose: 30 ml Documented by: Apixaban (Eliquis -) 5 mg NGT BID [facility] Last Admin: 02/01/20 10:11 Dose: 5 mg Documented by: Ascorbic Acid (Vitamin C Oral Solution -) 1,000 mg NGT DAILY [facility] Last Admin: 02/01/20 10:16 Dose: 1,000 mg Documented by: Buspirone HCl (Buspar -) 5 mg GT BID [facility] Last Admin: 02/01/20 10:10 Dose: 5 mg Documented by: Chlorhexidine Gluconate (Peridex -) 15 ml MM BID [facility] Last Admin: 02/01/20 10:17 Dose: 15 ml Documented by: Escitalopram Oxalate (Lexapro Oral Solution -) 10 mg GT DAILY [facility] Last Admin: 02/01/20 10:17 Dose: 10 mg Documented by: Famotidine (Pepcid) 20 mg PEG DAILY [facility] Last Admin: 01/31/20 12:33 Dose: Not Given Documented by: Potassium Chloride 40 meq/ (Amino Acids) 1,020 mls @ 84 mls/hr IVPB Q12H [facility] Last Admin: 02/01/20 03:42 Dose: Not Given Documented by: Famotidine/Sodium Chloride (Pepcid 20 Mg Premixed Ivpb -) 20 mg in 50 mls @ 100 mls/hr IVPB DAILY [facility] Last Admin: 02/01/20 10:10 Dose: Not Given Documented by: Metoprolol Tartrate (Lopressor -) 25 mg NGT BID [facility] Last Admin: 02/01/20 10:10 Dose: 25 mg Documented by: Multivitamins/Minerals (Certavite-Antioxidant Liquid) 15 ml NGT DAILY [facility] Last Admin: 02/01/20 10:11 Dose: 15 ml Documented by: Trazodone HCl (Desyrel -) 50 mg NGT HS [facility] Last Admin: 01/31/20 22:20 Dose: 50 mg Documented by: - Objective Vital Signs: Vital Signs Temperature 98.1 F 02/01/20 06:00 Pulse Rate 85 02/01/20 08:04 Respiratory Rate 20 02/01/20 06:00 Blood Pressure 113/43 L 02/01/20 06:00 O2 Sat by Pulse Oximetry (%) 95 02/01/20 08:04 Constitutional: Yes: Calm Eyes: Yes: Conjunctiva Clear HENT: Yes: Atraumatic Neck: Yes: Supple Cardiovascular: Yes: S1, S2 Respiratory: Yes: Other (trache) Genitourinary: Yes: WNL Musculoskeletal: Yes: WNL Edema: No Integumentary: Yes: WNL Neurological: Yes: Oriented Psychiatric: Yes: Oriented Labs: CBC, BMP 02/01/20 07:25 02/01/20 07:25 INR, PTT INR 1.23 (0.83-1.09) H 01/10/20 13:50 Problem List - Problems (1) Anasarca Code(s): R60.1 - GENERALIZED EDEMA (2) Congestive heart failure (CHF) Code(s): I50.9 - HEART FAILURE, UNSPECIFIED Qualifiers: Heart failure type: diastolic Heart failure chronicity: acute on chronic Qualified Code(s): I50.33 - Acute on chronic diastolic (congestive) heart failure (3) Acute kidney injury Code(s): N17.9 - ACUTE KIDNEY FAILURE, UNSPECIFIED Assessment/Plan Current Medications Generic Name Dose Route Start Last Admin Trade Name Freq PRN Reason Stop Dose Admin Acetaminophen 650 mg 01/24/20 17:28 Tylenol Oral Solution - PO Q4H PRN PAIN Amino Acids 30 ml 01/12/20 08:00 02/01/20 10:09 Prosource No Carb Liquid Pkt NGT 30 ml DAILY@0800 [facility] Administration Apixaban 5 mg 01/12/20 11:30 02/01/20 10:11 Eliquis - NGT 5 mg BID [facility] Administration Ascorbic Acid 1,000 mg 01/12/20 11:30 02/01/20 10:16 Vitamin C Oral Solution - NGT 1,000 mg DAILY [facility] Administration Buspirone HCl 5 mg 01/25/20 22:00 02/01/20 10:10 Buspar - GT 5 mg BID [facility] Administration Chlorhexidine Gluconate 15 ml 01/12/20 10:00 02/01/20 10:17 Peridex - MM 15 ml BID [facility] Administration Escitalopram Oxalate 10 mg 01/25/20 10:00 02/01/20 10:17 Lexapro Oral Solution - GT 10 mg DAILY [facility] Administration Famotidine 20 mg 01/25/20 10:00 01/31/20 12:33 Pepcid PEG Not Given DAILY [facility] Potassium Chloride 40 meq/ 1,020 mls @ 84 mls/hr 01/26/20 14:45 02/01/20 03:42 Amino Acids IVPB Not Given Q12H [facility] Famotidine/Sodium Chloride 20 mg in 50 mls @ 100 mls/hr 01/27/20 10:00 02/01/20 10:10 Pepcid 20 Mg Premixed Ivpb - IVPB Not Given DAILY [facility] Metoprolol Tartrate 25 mg 01/12/20 11:26 02/01/20 10:10 Lopressor - NGT 25 mg BID [facility] Administration Multivitamins/Minerals 15 ml 01/12/20 11:32 02/01/20 10:11 Certavite-Antioxidant Liquid NGT 15 ml DAILY [facility] Administration Trazodone HCl 50 mg 01/25/20 22:00 01/31/20 22:20 Desyrel - NGT 50 mg HS [facility] Administration Impression 1. MONIE 2. CHF acute 3. acute resp failure requiring intubation 4. atrial fibrillation 5. hx of htn 6. obesity 7. chronic smoker 8. hypokalemia 9. partial sbo Plan - d/c clinimix - pt tolerating diet - vent support - will follow prn
[2020-02-01] MEDS: FAMOTIDINE 40 MG/5 ML ORAL SUSPENSION PEG SCH ×2 (12:00→12:59)
--- NOTE | 2020-02-01 15:05 | PN.GI ---
GI Progress Note Subjective: pt tolerating pureed diet ; states he wants a burger and fries. denies abd pain - Objective Vital Signs: Vital Signs Temperature 98.1 F 02/01/20 10:00 Pulse Rate 96 H 02/01/20 10:00 Respiratory Rate 02/01/20 10:00 Blood Pressure 136/87 02/01/20 10:00 O2 Sat by Pulse Oximetry (%) 96 02/01/20 10:00 Constitutional: Well Nourished Eyes: Yes: WNL Cardiovascular: Yes: WNL, Regular Rate and Rhythm Respiratory: Yes: WNL, Regular, CTA Bilaterally Gastrointestinal Inspection: Yes: WNL ...Auscultate: Yes: Normoactive Bowel Sounds Edema: No Labs: CBC, BMP 02/01/20 07:25 02/01/20 07:25 INR, PTT INR 1.23 (0.83-1.09) H 01/10/20 13:50 Problem List - Problems (1) Pseudoobstruction of colon Assessment/Plan: repeat axr reviewed - no sign of sbo diet as per speech / swallow dept - c/w pureed diet Code(s): K59.8 - OTHER SPECIFIED FUNCTIONAL INTESTINAL DISORDERS (2) Cellulitis Code(s): L03.90 - CELLULITIS, UNSPECIFIED (3) Congestive heart failure (CHF) Code(s): I50.9 - HEART FAILURE, UNSPECIFIED Qualifiers: Heart failure type: diastolic Heart failure chronicity: acute on chronic Qualified Code(s): I50.33 - Acute on chronic diastolic (congestive) heart failure (4) Morbid obesity Code(s): E66.01 - MORBID (SEVERE) OBESITY DUE TO EXCESS CALORIES
[2020-02-01] MEDS: traZODone HCL 50 MG TABLET (FP) NGT SCH (21:29)
[2020-02-02 09:04] LABS: HEMATOCRIT 37.6 % (35.4-49); HEMOGLOBIN 11.3 GM/dL (11.7-16.9); MCH 25.1 pg (25.7-33.7); MCHC 30.1 g/dl (32.0-35.9); MEAN CELL VOLUME 83.5 fl (80-96); MEAN PLT VOLUME 8.2 fl (7.5-11.1); PLATELET COUNT 240 K/MM3 (134-434); WHITE BLOOD COUNT 6.2 K/mm3 (4.0-10.0)
--- NOTE | 2020-02-02 09:17 | PN ---
Progress Note, Physician History of Present Illness: 64 year old male with a past medical history of HTN, HLD, JUANA (not using CPAP), COPD, GERD, systolic congestive heart failure, paroxysmal atrial fibrillation (on Eliquis, s/p cardioversion 11/2016) who presented with 3 weeks of gradual onset anasarca, scrotal swelling and mild shortness of breath worse on exertion. CXR s/f diffused bilat opacities with c/f PNA +/-fluid overload, ?bilateral lower extremity cellulitis and bilateral hydrocele, and respiratory acidosis is admitted for Acute hypercapneic respiratory failure and Acute CHF exacerbation, intubated for progressive hypercarbic respiratory failure, decreased mental status on BiPAP. 01/11/2020 s/p percutaneous tracheostomy, awake off sedation. Vented on volume assist control with 40% FiO2, PEEP 5. Placed on CPAP/PS. 01/12/2020 Off sedation on vent 01/12: no acute cardiac events; had elevated temp 01/13: No significant change01/14: No cardiac events 01/15: Vented, awake. Currently on SIMV RR 8 PS 10. Abd slightly distended 01/16: Vented awake on SIMV RR 8 PS 10. No fevers. 01/17: Ileus noted on abd/pelvic CT, interactive on vent 01/18: Small BM, NGT inserted 01/22: Improving AXR, patient remains on a ventilator via tracheostomy, awake and alert in no distress 01/24: Vent wean on trach, awake tolerating enteral feeds, ileus resolving 01/25: Vent wean on trach, no acute changes 01/27: Recurrent pSBO, starting on TPN per surgery 01/28: Remains NPO with recurrent ileus, on 40% TC 01/29: Passing flatus, abd/pelvic CT negative for pSBO 01/30: GI recommends IR g-tube, started dysphagia pureed diet with resolving ileus 02/01: Sitting in chair with trach collar 40% FiO2. - Current Medication List Current Medications: Active Medications Acetaminophen (Tylenol Oral Solution -) 650 mg PO Q4H PRN PRN Reason: PAIN Amino Acids (Prosource No Carb Liquid Pkt) 30 ml NGT DAILY@0800 [facility] Last Admin: 02/01/20 10:09 Dose: 30 ml Documented by: Apixaban (Eliquis -) 5 mg NGT BID [facility] Last Admin: 02/01/20 21:30 Dose: 5 mg Documented by: Ascorbic Acid (Vitamin C Oral Solution -) 1,000 mg NGT DAILY [facility] Last Admin: 02/01/20 10:16 Dose: 1,000 mg Documented by: Buspirone HCl (Buspar -) 5 mg GT BID [facility] Last Admin: 02/01/20 21:30 Dose: 5 mg Documented by: Chlorhexidine Gluconate (Peridex -) 15 ml MM BID [facility] Last Admin: 02/01/20 21:31 Dose: 15 ml Documented by: Escitalopram Oxalate (Lexapro Oral Solution -) 10 mg GT DAILY [facility] Last Admin: 02/01/20 10:17 Dose: 10 mg Documented by: Famotidine (Pepcid) 20 mg PEG DAILY [facility] Last Admin: 02/01/20 12:59 Dose: Not Given Documented by: Metoprolol Tartrate (Lopressor -) 25 mg NGT BID [facility] Last Admin: 02/01/20 21:30 Dose: 25 mg Documented by: Multivitamins/Minerals (Certavite-Antioxidant Liquid) 15 ml NGT DAILY [facility] Last Admin: 02/01/20 10:11 Dose: 15 ml Documented by: Trazodone HCl (Desyrel -) 50 mg NGT HS [facility] Last Admin: 02/01/20 21:29 Dose: 50 mg Documented by: - Objective Vital Signs: Vital Signs Temperature 97.3 F L 02/02/20 06:00 Pulse Rate 87 02/02/20 06:36 Respiratory Rate 20 02/02/20 06:36 Blood Pressure 133/94 02/02/20 06:36 O2 Sat by Pulse Oximetry (%) 95 02/02/20 08:00 Constitutional: Yes: No Distress, Calm HENT: Yes: Other (Trach collar) Cardiovascular: Yes: Regular Rate and Rhythm Respiratory: Yes: Regular, Diminished Gastrointestinal: Yes: Normal Bowel Sounds, Soft, Abdomen, Obese Edema: No Integumentary: Yes: Venous Stasis Changes Labs: INR, PTT INR 1.23 (0.83-1.09) H 01/10/20 13:50 Problem List - Problems (1) Congestive heart failure (CHF) Code(s): I50.9 - HEART FAILURE, UNSPECIFIED Qualifiers: Heart failure type: diastolic Heart failure chronicity: acute on chronic Qualified Code(s): I50.33 - Acute on chronic diastolic (congestive) heart failure (2) Pneumonia Code(s): J18.9 - PNEUMONIA, UNSPECIFIED ORGANISM Qualifiers: Pneumonia type: due to unspecified organism Laterality: right Lung location: lower lobe of lung Qualified Code(s): J18.9 - Pneumonia, unspecified organism (3) Acute on chronic diastolic (congestive) heart failure Code(s): I50.33 - ACUTE ON CHRONIC DIASTOLIC (CONGESTIVE) HEART FAILURE (4) Acute respiratory failure with hypoxia and hypercarbia Code(s): J96.01 - ACUTE RESPIRATORY FAILURE WITH HYPOXIA; J96.02 - ACUTE RESPIRATORY FAILURE WITH HYPERCAPNIA (5) Atrial fibrillation Code(s): I48.91 - UNSPECIFIED ATRIAL FIBRILLATION Qualifiers: Atrial fibrillation type: paroxysmal Qualified Code(s): I48.0 - Paroxysmal atrial fibrillation (6) COPD (chronic obstructive pulmonary disease) Code(s): J44.9 - CHRONIC OBSTRUCTIVE PULMONARY DISEASE, UNSPECIFIED Qualifiers: COPD type: unspecified COPD Qualified Code(s): J44.9 - Chronic obstructive pulmonary disease, unspecified (7) Hypertension Code(s): I10 - ESSENTIAL (PRIMARY) HYPERTENSION Qualifiers: Hypertension type: essential hypertension Qualified Code(s): I10 - Essential (primary) hypertension (8) Pleural effusion Code(s): J90 - PLEURAL EFFUSION, NOT ELSEWHERE CLASSIFIED Assessment/Plan 10/26/2017 Normal LV size with mild LVH, normal LV fxn, normal RV size and fxn, mild LAE, mild MR, mild-mod TR, mild DC, RVSP 43 mmHg 11/19/2016 Lexiscan Myoview: Apical ischemia, LVEF 45-52% 10/06/2016 Echocardiography revealed mild to moderate LV systolic dysfunction, moderate TR, RVSP of 30-40 mmHg 1. Acute on chronic Hypoxic and Hypercapneic Respiratory Failure with tracheostomy 2. Acute on chronic LV Diastolic Heart Failure with pleural effusion resolved 3. Pneumonia, ARDS (septic shock) resolved 4. Paroxysmal atrial fibrillation with periods of rapid ventricular response post DCCV, [id number] score of 2 5. Obstructive Sleep Apnea/Obesity 6. HTN/HCVD 7. Hypercholesterolemia 8. CAD, angina pectoris 9. Bilateral cellulitis with h/o abscess s/p debridement 10. Bilateral hydrocele 11. Recurrent ileus vs pSBO due to underlying co morbid conditions resolving PLAN: 1. TC and PMV as tolerated, consider down sizing trach, titrate FiO2, PEEP to keep SpO2 >90% 2. DVT and GI prophylaxis, dysphagia pureed diet as tolerated 3. Diuretics held with monitor renal function and electrolytes 4. Continue Lopressor 25 mg BID and Eliquis 5 mg BID 5. Completed vanco course 6. PT->SNF
[2020-02-02 09:28] LABS: ALBUMIN 2.9 g/dl (3.4-5.0); BILIRUBIN,TOTAL 1.2 mg/dL (0.2-1); BLOOD UREA NITROGEN 17.3 mg/dL (7-18); CALCIUM 9.4 mg/dL (8.5-10.1); CREATININE 0.7 mg/dL (0.55-1.3); POTASSIUM 4.5 mmol/L (3.5-5.1); TOT PROT 6.2 g/dl (6.4-8.2)
[2020-02-02] MEDS ORDERED: PT OWN MED DRAWER 7, Y5N ONE ×2 (10:18→21:56)
[2020-02-02] MEDS: ASCORBIC ACID 500 MG/5 ML UNIT DOSE CUP NGT SCH (10:28)
[2020-02-02] MEDS: AMINO ACIDS/PROTEIN HYDROLYS 30 ML LIQUID.PKT NGT SCH (10:28)
[2020-02-02] MEDS: APIXABAN 5 MG TABLET NGT SCH ×2 (10:28→22:10)
[2020-02-02] MEDS: METOPROLOL TARTRATE 25 MG TABLET (FP) NGT SCH ×2 (10:28→22:10)
[2020-02-02] MEDS: busPIRone HCL 5 MG TABLET GT SCH ×2 (10:28→22:10)
[2020-02-02] MEDS: CHLORHEXIDINE GLUCONATE 0.12% 15ML CUP MM SCH ×2 (10:29→22:10)
[2020-02-02] MEDS: MULTIVIT-MINERALS ORAL LIQUID NGT SCH (10:29)
[2020-02-02] MEDS: FAMOTIDINE 40 MG/5 ML ORAL SUSPENSION PEG SCH (10:29)
--- NOTE | 2020-02-02 10:29 | DS ---
Physical Examination Vital Signs: Vital Signs Temperature 98.2 F 02/02/20 09:00 Pulse Rate 89 02/02/20 09:00 Respiratory Rate 17 02/02/20 09:00 Blood Pressure 132/81 02/02/20 09:00 O2 Sat by Pulse Oximetry (%) 96 02/02/20 09:00 Findings/Remarks: (1) SBO (small bowel obstruction) Assessment/Plan: -resolved -Surgery on board -AXR-no SBO -D/C'd NGT -Tolerating Oral feeds- dysphagia puree + thin liquids- may advance after re- eval by speech therapy -Monitor for N/V Problems reviewed: Yes Code(s): K56.609 - UNSP INTESTNL OBST, UNSP TO PARTIAL VERSUS COMPLETE OBST (2) Morbid obesity Problems reviewed: Yes Code(s): E66.01 - MORBID (SEVERE) OBESITY DUE TO EXCESS CALORIES (3) Pneumonia Assessment/Plan: -SC:MRSA -Off abx -Completed 2 weeks of Vanco -ID on board -Afebrile Code(s): J18.9 - PNEUMONIA, UNSPECIFIED ORGANISM Qualifiers: Pneumonia type: due to unspecified organism Laterality: right Lung location: lower lobe of lung Qualified Code(s): J18.9 - Pneumonia, unspecified organism (4) Atrial fibrillation Assessment/Plan: -Chronic, rate controlled -Restart eliquis 5 mg PO BID Problems reviewed: Yes Code(s): I48.91 - UNSPECIFIED ATRIAL FIBRILLATION Qualifiers: Atrial fibrillation type: paroxysmal Qualified Code(s): I48.0 - Paroxysmal atrial fibrillation (5) Respiratory failure with hypoxia and hypercapnia Assessment/Plan: -Pulmonary on board -Mech vent s/b -Wean as tolerated -SNF upon d/c- [facility]st preference [facility] -Repeat COVID 19 in preparation of discharge -MBS no aspiration -Encouraged daily PMV use -Trial of Trach collar has been tolerating it 24 hrs Problems reviewed: Yes Code(s): J96.91 - RESPIRATORY FAILURE, UNSPECIFIED WITH HYPOXIA; J96.92 - RESPIRATORY FAILURE, UNSPECIFIED WITH HYPERCAPNIA Qualifiers: Chronicity: acute on chronic Qualified Code(s): J96.21 - Acute and chronic respiratory failure with hypoxia; J96.22 - Acute and chronic respiratory failure with hypercapnia (6) Hypokalemia Assessment/Plan: -Resolved -Nephrology on board -Monitor trend Problems reviewed: Yes Code(s): E87.6 - HYPOKALEMIA (7) MRSA (methicillin resistant staphylococcus aureus) pneumonia Problems reviewed: Yes Code(s): J15.212 - PNEUMONIA DUE TO METHICILLIN RESISTANT STAPHYLOCOCCUS AUREUS (8) Anxiety Assessment/Plan: -ContinueSSRI-lexapro 10 mg GT daily -Continue Buspirone 5 mg GT BID PRN for breakthrough Problems reviewed: Yes Code(s): F41.9 - ANXIETY DISORDER, UNSPECIFIED Assessment/Plan See problem list Awaiting SNF placement Constitutional: Yes: Well Nourished, No Distress, Calm, Obese Cardiovascular: Yes: Regular Rate and Rhythm Respiratory: Yes: Regular, CTA Bilaterally Gastrointestinal: Yes: Normal Bowel Sounds, Soft, Abdomen, Obese Renal/: Yes: Incontinence Musculoskeletal: Yes: Muscle Weakness Extremities: Yes: WNL Edema: No Peripheral Pulses WNL: Yes Neurological: Yes: Alert, Oriented Psychiatric: Yes: Alert, Oriented Labs: CBC, BMP 02/02/20 08:20 02/02/20 08:20 Discharge Summary Problems reviewed: Yes Reason For Visit: CONGESTIVE HEART FAILURE, PNEUMONIA Current Active Problems Anasarca (Acute) Anxiety (Acute) Cellulitis (Acute) Congestive heart failure (CHF) (Acute) Edema of scrotum (Acute) Hypokalemia (Acute) MRSA (methicillin resistant staphylococcus aureus) pneumonia (Acute) Morbid obesity (Acute) Pleural effusion (Acute) Pneumonia (Acute) Pseudo-obstruction of intestine (Acute) Pseudoobstruction of colon (Acute) SBO (small bowel obstruction) (Acute) Tracheostomy care (Acute) Tracheostomy dependent (Acute) Condition: Stable - Instructions Referrals: Dameon Quinonez MD [Primary Care Provider] - Disposition: [facility] - Home Medications Comprehensive Discharge Medication List: Ambulatory Orders Ascorbate Calcium [Vitamin C] 1,000 mg PO DAILY 10/05/16 Apixaban [Eliquis -] 5 mg PO BID #30 tablet 10/23/16 Multivit-Min/Folic/Vit K/Lycop [Men's Multivitamin Caplet] 1 each PO DAILY 11/17/17 Acetaminophen Oral Solution [Tylenol Oral Solution -] 650 mg PO Q4H PRN soln.oral 02/01/20 Amino Acids/Protein Hydrolys [Prosource No Carb Liquid Pkt] 30 ml PO DAILY@0800 #1 bot 02/01/20 Apixaban [Eliquis -] 5 mg PO BID #60 tablet 02/01/20 Buspirone HCl [Buspar -] 5 mg PO BID #60 tablet 02/01/20 Famotidine [Pepcid] 20 mg PO DAILY #1 bot 02/01/20 Famotidine [Pepcid] 20 mg PO DAILY #1 bottle 02/01/20 Metoprolol Tartrate [Lopressor -] 25 mg PO BID #60 tablet 02/01/20 Multivit-Minerals [Certavite-Antioxidant Liquid] 15 ml PO DAILY #1 bottle 02/01/20 traZODone HCL [Desyrel -] 50 mg PO HS tablet 02/01/20 Prescription Drug Monitoring Program (I-STOP) results: I-STOP reviewed and no issues identified
[2020-02-02] MEDS: ESCITALOPRAM OXALATE 5 MG/5 ML GT SCH (10:30)
--- NOTE | 2020-02-02 10:33 | PN ---
Progress Note, Physician History of Present Illness: stable no new issues - Current Medication List Current Medications: Active Medications Acetaminophen (Tylenol Oral Solution -) 650 mg PO Q4H PRN PRN Reason: PAIN Amino Acids (Prosource No Carb Liquid Pkt) 30 ml NGT DAILY@0800 COUNTS INCLUDE 234 BEDS AT THE [facility] Last Admin: 02/01/20 10:09 Dose: 30 ml Documented by: Apixaban (Eliquis -) 5 mg NGT BID COUNTS INCLUDE 234 BEDS AT THE [facility] Last Admin: 02/01/20 21:30 Dose: 5 mg Documented by: Ascorbic Acid (Vitamin C Oral Solution -) 1,000 mg NGT DAILY COUNTS INCLUDE 234 BEDS AT THE [facility] Last Admin: 02/01/20 10:16 Dose: 1,000 mg Documented by: Buspirone HCl (Buspar -) 5 mg GT BID COUNTS INCLUDE 234 BEDS AT THE [facility] Last Admin: 02/01/20 21:30 Dose: 5 mg Documented by: Chlorhexidine Gluconate (Peridex -) 15 ml MM BID COUNTS INCLUDE 234 BEDS AT THE [facility] Last Admin: 02/01/20 21:31 Dose: 15 ml Documented by: Escitalopram Oxalate (Lexapro Oral Solution -) 10 mg GT DAILY COUNTS INCLUDE 234 BEDS AT THE [facility] Last Admin: 02/01/20 10:17 Dose: 10 mg Documented by: Famotidine (Pepcid) 20 mg PEG DAILY COUNTS INCLUDE 234 BEDS AT THE [facility] Last Admin: 02/01/20 12:59 Dose: Not Given Documented by: Metoprolol Tartrate (Lopressor -) 25 mg NGT BID COUNTS INCLUDE 234 BEDS AT THE [facility] Last Admin: 02/01/20 21:30 Dose: 25 mg Documented by: Multivitamins/Minerals (Certavite-Antioxidant Liquid) 15 ml NGT DAILY COUNTS INCLUDE 234 BEDS AT THE [facility] Last Admin: 02/01/20 10:11 Dose: 15 ml Documented by: Trazodone HCl (Desyrel -) 50 mg NGT HS COUNTS INCLUDE 234 BEDS AT THE [facility] Last Admin: 02/01/20 21:29 Dose: 50 mg Documented by: - Objective Vital Signs: Vital Signs Temperature 98.2 F 02/02/20 09:00 Pulse Rate 89 02/02/20 09:00 Respiratory Rate 17 02/02/20 09:00 Blood Pressure 132/81 02/02/20 09:00 O2 Sat by Pulse Oximetry (%) 96 02/02/20 09:00 Constitutional: Yes: No Distress, Calm Cardiovascular: Yes: S1, S2 Respiratory: Yes: Regular, CTA Bilaterally, Other (s/p trach) Gastrointestinal: Yes: Normal Bowel Sounds, Soft Musculoskeletal: Yes: WNL Extremities: Yes: WNL Neurological: Yes: Alert, Oriented Psychiatric: Yes: Alert, Oriented Labs: CBC, BMP 02/02/20 08:20 02/02/20 08:20 INR, PTT INR 1.23 (0.83-1.09) H 01/10/20 13:50 Assessment/Plan Problem List - Problems (1) Edema of scrotum Code(s): N50.89 - OTHER SPECIFIED DISORDERS OF THE MALE GENITAL ORGANS (2) Morbid obesity Code(s): E66.01 - MORBID (SEVERE) OBESITY DUE TO EXCESS CALORIES (3) Acute on chronic diastolic (congestive) heart failure Code(s): I50.33 - ACUTE ON CHRONIC DIASTOLIC (CONGESTIVE) HEART FAILURE (4) Acute respiratory failure requiring reintubation Code(s): J96.00 - ACUTE RESPIRATORY FAILURE, UNSP W HYPOXIA OR HYPERCAPNIA (5) Afib Code(s): I48.91 - UNSPECIFIED ATRIAL FIBRILLATION Qualifiers: Atrial fibrillation type: paroxysmal Qualified Code(s): I48.0 - Paroxysmal atrial fibrillation Assessment/Plan Acute respiratory failure s/p trach on MV PNA Ileus/ pseudoobstruction CHF b/l LE Cellulitis b/l Hydrocele MONIE Paroxysmal AFIB COPD JUANA CAD HTN HLD plan continue current mgmt rest as per the team s/p abx course rest as per the team
--- NOTE | 2020-02-02 11:04 | PN ---
Progress Note (short form) - Note Progress Note: PULMONARY Sitting in chair with trach collar 40% FiO2. Vital Signs Period Temp Pulse Resp BP Sys/Clements Pulse Ox Last 24 Hr 97.3 F-98.9 F 73-92 17-20 119-160/51-95 93-100 Gen: vented, awake Heart: RRR Lung: scattered rhonchi Abd: softly distended, nontender Ext: no edema CBC, BMP 02/02/20 08:20 02/02/20 08:20 Active Medications Acetaminophen (Tylenol Oral Solution -) 650 mg PO Q4H PRN PRN Reason: PAIN Amino Acids (Prosource No Carb Liquid Pkt) 30 ml NGT DAILY@0800 [facility] Last Admin: 02/02/20 10:28 Dose: 30 ml Documented by: Apixaban (Eliquis -) 5 mg NGT BID [facility] Last Admin: 02/02/20 10:28 Dose: 5 mg Documented by: Ascorbic Acid (Vitamin C Oral Solution -) 1,000 mg NGT DAILY [facility] Last Admin: 02/02/20 10:28 Dose: 1,000 mg Documented by: Buspirone HCl (Buspar -) 5 mg GT BID [facility] Last Admin: 02/02/20 10:28 Dose: 5 mg Documented by: Chlorhexidine Gluconate (Peridex -) 15 ml MM BID [facility] Last Admin: 02/02/20 10:29 Dose: 15 ml Documented by: Escitalopram Oxalate (Lexapro Oral Solution -) 10 mg GT DAILY [facility] Last Admin: 02/02/20 10:30 Dose: 10 mg Documented by: Famotidine (Pepcid) 20 mg PEG DAILY [facility] Last Admin: 02/02/20 10:29 Dose: 20 mg Documented by: Metoprolol Tartrate (Lopressor -) 25 mg NGT BID [facility] Last Admin: 02/02/20 10:28 Dose: 25 mg Documented by: Multivitamins/Minerals (Certavite-Antioxidant Liquid) 15 ml NGT DAILY [facility] Last Admin: 02/02/20 10:29 Dose: 15 ml Documented by: Trazodone HCl (Desyrel -) 50 mg NGT HS [facility] Last Admin: 02/01/20 21:29 Dose: 50 mg Documented by: A/P Acute on Chronic Hypoxic and Hypercapneic Respiratory Failure s/p Tracheostomy Pneumonia ARDS resolved Septic Shock resolved Acute on Chronic Diastolic Heart Failure Pulmonary HTN Paroxysmal Atrial Fibrillation CAD Acute Kidney Injury Likely COPD JUANA/OHS HTN Hypercholesterolemia - completed antibiotics - rate control - continue anticoagulation - trach collar, PMV as tolerated - consider down sizing trach - titrate FiO2 to keep SpO2 >90% - monitor urine output, creatinine - PO as tolerated - rehab/PT - DVT/GI prophylaxis
[2020-02-02 11:10] LABS: ANISOCYTOSIS 2+; MACROCYTOSIS 0; PLATELET ESTIMATE NORMAL
--- NOTE | 2020-02-02 13:11 | PN ---
Progress Note, RESOURCE MANAGER - Note Progress Note: 64 yo male seen by RESOURCE MANAGER at the request of PCP. Pt is currently consuming dyspha renetta pureed solids with thin liquids from MBS recommendations. Pt has desired a more regular solids consistency. At chairside pt presents with adequate dentition for mastication. Oral and facial features are within functional limits for speech and swallowing purposes. Pt given po trials of puree, mech soft with minimal assistance revealed good acceptance, adequate mastication and bolus formation and A P transport with good pharyngeal swallow (2-3 second average). No change in voicing or respiration after the swallow.Thin liquid trials without assistance were unremarkable for dysphagia and/or aspiration at this time. Recommendations Trial po intake of soft diet (moisten) and thin liquids as tolerated. Observe standard aspiration precautions. Encourage thorough chewing, no talking with bolus in mouth, and slow rate of intake. Provide oral care before and after meal meals. Results given verbally to charge lpn and PCP. RESOURCE MANAGER to follow up for diet tolerance.
[2020-02-02] MEDS: traZODone HCL 50 MG TABLET (FP) NGT SCH (22:10)
[2020-02-03 08:56] LABS: HEMATOCRIT 35.2 % (35.4-49); HEMOGLOBIN 10.7 GM/dL (11.7-16.9); MCH 25.3 pg (25.7-33.7); MCHC 30.4 g/dl (32.0-35.9); MEAN CELL VOLUME 83.1 fl (80-96); MEAN PLT VOLUME 8.1 fl (7.5-11.1); PLATELET COUNT 212 K/MM3 (134-434); RBC 4.24 M/mm3 (4.00-5.60); RDW 24.9 % (11.9-15.9); WHITE BLOOD COUNT 6.7 K/mm3 (4.0-10.0)
[2020-02-03 09:09] LABS: ALBUMIN 2.6 g/dl (3.4-5.0); BILIRUBIN,TOTAL 0.9 mg/dL (0.2-1); BLOOD UREA NITROGEN 17.8 mg/dL (7-18); CREATININE 0.7 mg/dL (0.55-1.3); POTASSIUM 3.6 mmol/L (3.5-5.1); TOT PROT 5.6 g/dl (6.4-8.2)
[2020-02-03] MEDS ORDERED: PT OWN MED DRAWER 7, Y5N ONE (09:24)
[2020-02-03] MEDS: AMINO ACIDS/PROTEIN HYDROLYS 30 ML LIQUID.PKT NGT SCH (09:27)
[2020-02-03] MEDS: busPIRone HCL 5 MG TABLET GT SCH (09:28)
[2020-02-03] MEDS: METOPROLOL TARTRATE 25 MG TABLET (FP) NGT SCH (09:28)
[2020-02-03] MEDS: ESCITALOPRAM OXALATE 5 MG/5 ML GT SCH (09:28)
[2020-02-03] MEDS: MULTIVIT-MINERALS ORAL LIQUID NGT SCH (09:28)
[2020-02-03] MEDS: APIXABAN 5 MG TABLET NGT SCH (09:28)
[2020-02-03] MEDS: FAMOTIDINE 40 MG/5 ML ORAL SUSPENSION PEG SCH (09:29)
[2020-02-03] MEDS: ASCORBIC ACID 500 MG/5 ML UNIT DOSE CUP NGT SCH (09:29)
[2020-02-03] MEDS: CHLORHEXIDINE GLUCONATE 0.12% 15ML CUP MM SCH (09:29)
--- NOTE | 2020-02-03 09:54 | PN ---
Progress Note, Physician Chief Complaint: Acute on Chronic Hypoxic and Hypercapneic Respiratory Failure s/p Tracheostomy Pneumonia ARDS Septic Shock Acute on Chronic Diastolic Heart Failure Pulmonary HTN Paroxysmal Atrial Fibrillation CAD Acute Kidney Injury COPD JUANA/OHS SBO History of Present Illness: NAD, alert and oriented Tolerating PO intake of soft diet Tolerated T/C 24 hours OOB in chair with PT Awaiting dc to snf - Current Medication List Current Medications: Active Medications Acetaminophen (Tylenol Oral Solution -) 650 mg PO Q4H PRN PRN Reason: PAIN Amino Acids (Prosource No Carb Liquid Pkt) 30 ml NGT DAILY@0800 [facility] Last Admin: 02/03/20 09:27 Dose: 30 ml Documented by: Apixaban (Eliquis -) 5 mg NGT BID [facility] Last Admin: 02/03/20 09:28 Dose: 5 mg Documented by: Ascorbic Acid (Vitamin C Oral Solution -) 1,000 mg NGT DAILY [facility] Last Admin: 02/03/20 09:29 Dose: 1,000 mg Documented by: Buspirone HCl (Buspar -) 5 mg GT BID [facility] Last Admin: 02/03/20 09:28 Dose: 5 mg Documented by: Chlorhexidine Gluconate (Peridex -) 15 ml MM BID [facility] Last Admin: 02/03/20 09:29 Dose: 15 ml Documented by: Escitalopram Oxalate (Lexapro Oral Solution -) 10 mg GT DAILY [facility] Last Admin: 02/03/20 09:28 Dose: 10 mg Documented by: Famotidine (Pepcid) 20 mg PEG DAILY [facility] Last Admin: 02/03/20 09:29 Dose: 20 mg Documented by: Metoprolol Tartrate (Lopressor -) 25 mg NGT BID [facility] Last Admin: 02/03/20 09:28 Dose: 25 mg Documented by: Multivitamins/Minerals (Certavite-Antioxidant Liquid) 15 ml NGT DAILY [facility] Last Admin: 02/03/20 09:28 Dose: 15 ml Documented by: Trazodone HCl (Desyrel -) 50 mg NGT HS [facility] Last Admin: 02/02/20 22:10 Dose: 50 mg Documented by: - Objective Vital Signs: Vital Signs Temperature 98.3 F 02/03/20 09:00 Pulse Rate 78 02/03/20 09:00 Respiratory Rate 18 02/03/20 09:00 Blood Pressure 163/77 02/03/20 09:00 O2 Sat by Pulse Oximetry (%) 96 02/03/20 09:00 Constitutional: Yes: Well Nourished, No Distress, Calm, Obese Cardiovascular: Yes: Regular Rate and Rhythm Respiratory: Yes: Regular, CTA Bilaterally, Other (trach collar) Genitourinary: Yes: Incontinence Musculoskeletal: Yes: Muscle Weakness Extremities: Yes: WNL Edema: No Peripheral Pulses WNL: Yes Neurological: Yes: Alert, Oriented Psychiatric: Yes: Alert, Oriented Labs: CBC, BMP 02/03/20 08:00 02/03/20 08:00 INR, PTT INR 1.23 (0.83-1.09) H 01/10/20 13:50 Problem List - Problems (1) SBO (small bowel obstruction) Assessment/Plan: -resolved -Surgery on board -Tolerating Oral feeds- soft diet -Monitor for N/V Problems reviewed: Yes Code(s): K56.609 - UNSP INTESTNL OBST, UNSP TO PARTIAL VERSUS COMPLETE OBST (2) Morbid obesity Problems reviewed: Yes Code(s): E66.01 - MORBID (SEVERE) OBESITY DUE TO EXCESS CALORIES (3) Pneumonia Assessment/Plan: -SC:MRSA -Off abx -Completed 2 weeks of Vanco -ID on board -Afebrile Problems reviewed: Yes Code(s): J18.9 - PNEUMONIA, UNSPECIFIED ORGANISM Qualifiers: Pneumonia type: due to unspecified organism Laterality: right Lung location: lower lobe of lung Qualified Code(s): J18.9 - Pneumonia, unspecified organism (4) Atrial fibrillation Assessment/Plan: -Chronic, rate controlled -Restart eliquis 5 mg GT BID Problems reviewed: Yes Code(s): I48.91 - UNSPECIFIED ATRIAL FIBRILLATION Qualifiers: Atrial fibrillation type: paroxysmal Qualified Code(s): I48.0 - Paroxysmal atrial fibrillation (5) Respiratory failure with hypoxia and hypercapnia Assessment/Plan: [facility] -SNF upon d/c- [facility] preference [facility] -Repeat COVID 19 in preparation of discharge -MBS no aspiration -Encouraged daily PMV use -Trial of Trach collar -keep it overnight if tolerates Problems reviewed: Yes Code(s): J96.91 - RESPIRATORY FAILURE, UNSPECIFIED WITH HYPOXIA; J96.92 - RESPIRATORY FAILURE, UNSPECIFIED WITH HYPERCAPNIA Qualifiers: Chronicity: acute on chronic Qualified Code(s): J96.21 - Acute and chronic respiratory failure with hypoxia; J96.22 - Acute and chronic respiratory failure with hypercapnia (6) Hypokalemia Assessment/Plan: -Resolved -Nephrology on board -Monitor trend -Continue clinimix Problems reviewed: Yes Code(s): E87.6 - HYPOKALEMIA (7) MRSA (methicillin resistant staphylococcus aureus) pneumonia Problems reviewed: Yes Code(s): J15.212 - PNEUMONIA DUE TO METHICILLIN RESISTANT STAPHYLOCOCCUS AUREUS (8) Anxiety Assessment/Plan: -Restart SSRI-lexapro 10 mg GT daily -Restart Buspirone 5 mg GT BID PRN for breakthrough -D/C Ativan PRN- making pt too lethargic Problems reviewed: Yes Code(s): F41.9 - ANXIETY DISORDER, UNSPECIFIED Assessment/Plan See problem list Awaiting SNF- accepted, to be transferred today
--- NOTE | 2020-02-03 10:45 | PN ---
Progress Note, Physician History of Present Illness: pulmonary alert,oob-chair,-sob on trach collar,tolerating po - Current Medication List Current Medications: Active Medications Acetaminophen (Tylenol Oral Solution -) 650 mg PO Q4H PRN PRN Reason: PAIN Amino Acids (Prosource No Carb Liquid Pkt) 30 ml NGT DAILY@0800 [facility] Last Admin: 02/03/20 09:27 Dose: 30 ml Documented by: Apixaban (Eliquis -) 5 mg NGT BID [facility] Last Admin: 02/03/20 09:28 Dose: 5 mg Documented by: Ascorbic Acid (Vitamin C Oral Solution -) 1,000 mg NGT DAILY [facility] Last Admin: 02/03/20 09:29 Dose: 1,000 mg Documented by: Buspirone HCl (Buspar -) 5 mg GT BID [facility] Last Admin: 02/03/20 09:28 Dose: 5 mg Documented by: Chlorhexidine Gluconate (Peridex -) 15 ml MM BID [facility] Last Admin: 02/03/20 09:29 Dose: 15 ml Documented by: Escitalopram Oxalate (Lexapro Oral Solution -) 10 mg GT DAILY [facility] Last Admin: 02/03/20 09:28 Dose: 10 mg Documented by: Famotidine (Pepcid) 20 mg PEG DAILY [facility] Last Admin: 02/03/20 09:29 Dose: 20 mg Documented by: Metoprolol Tartrate (Lopressor -) 25 mg NGT BID [facility] Last Admin: 02/03/20 09:28 Dose: 25 mg Documented by: Multivitamins/Minerals (Certavite-Antioxidant Liquid) 15 ml NGT DAILY [facility] Last Admin: 02/03/20 09:28 Dose: 15 ml Documented by: Trazodone HCl (Desyrel -) 50 mg NGT HS [facility] Last Admin: 02/02/20 22:10 Dose: 50 mg Documented by: - Objective Vital Signs: Vital Signs Temperature 98.3 F 02/03/20 09:00 Pulse Rate 78 02/03/20 09:00 Respiratory Rate 18 02/03/20 09:00 Blood Pressure 163/77 02/03/20 09:00 O2 Sat by Pulse Oximetry (%) 96 02/03/20 09:00 Constitutional: Yes: Well Nourished, Calm Eyes: Yes: WNL HENT: Yes: WNL Neck: Yes: Supple (trach) Cardiovascular: Yes: Pulse Irregular, S1, S2 Respiratory: Yes: Rhonchi (few scattered maury rhonchi) Gastrointestinal: Yes: Normal Bowel Sounds, Soft Extremities: Yes: WNL Edema: No Labs: CBC, BMP 02/03/20 08:00 02/03/20 08:00 INR, PTT INR 1.23 (0.83-1.09) H 01/10/20 13:50 Assessment/Plan ASSESSMENT AND PLAN: Acute on Chronic Hypoxic and Hypercapneic Respiratory Failure improved Pneumonia ARDS improved S/P Septic Shock Acute on Chronic Diastolic Heart Failure Pulmonary HTN Paroxysmal Atrial Fibrillation CAD Acute Kidney Injury Likely COPD JUANA/OHS HTN Hypercholesterolemia - - rate control - anticoagulation - trach collar - monitor urine output, creatinine - DVT/GI prophylaxis DR MELTON
--- NOTE | 2020-02-03 11:15 | PN ---
Progress Note, Physician History of Present Illness: stable no new issues - Current Medication List Current Medications: Active Medications Acetaminophen (Tylenol Oral Solution -) 650 mg PO Q4H PRN PRN Reason: PAIN Amino Acids (Prosource No Carb Liquid Pkt) 30 ml NGT DAILY@0800 [facility] Last Admin: 02/03/20 09:27 Dose: 30 ml Documented by: Apixaban (Eliquis -) 5 mg NGT BID [facility] Last Admin: 02/03/20 09:28 Dose: 5 mg Documented by: Ascorbic Acid (Vitamin C Oral Solution -) 1,000 mg NGT DAILY [facility] Last Admin: 02/03/20 09:29 Dose: 1,000 mg Documented by: Buspirone HCl (Buspar -) 5 mg GT BID [facility] Last Admin: 02/03/20 09:28 Dose: 5 mg Documented by: Chlorhexidine Gluconate (Peridex -) 15 ml MM BID [facility] Last Admin: 02/03/20 09:29 Dose: 15 ml Documented by: Escitalopram Oxalate (Lexapro Oral Solution -) 10 mg GT DAILY [facility] Last Admin: 02/03/20 09:28 Dose: 10 mg Documented by: Famotidine (Pepcid) 20 mg PEG DAILY [facility] Last Admin: 02/03/20 09:29 Dose: 20 mg Documented by: Metoprolol Tartrate (Lopressor -) 25 mg NGT BID [facility] Last Admin: 02/03/20 09:28 Dose: 25 mg Documented by: Multivitamins/Minerals (Certavite-Antioxidant Liquid) 15 ml NGT DAILY [facility] Last Admin: 02/03/20 09:28 Dose: 15 ml Documented by: Trazodone HCl (Desyrel -) 50 mg NGT HS [facility] Last Admin: 02/02/20 22:10 Dose: 50 mg Documented by: - Objective Vital Signs: Vital Signs Temperature 98.3 F 02/03/20 09:00 Pulse Rate 78 02/03/20 09:00 Respiratory Rate 18 02/03/20 09:00 Blood Pressure 163/77 02/03/20 09:00 O2 Sat by Pulse Oximetry (%) 96 02/03/20 09:00 Constitutional: Yes: No Distress, Calm Cardiovascular: Yes: S1, S2 Respiratory: Yes: Regular, CTA Bilaterally Gastrointestinal: Yes: Normal Bowel Sounds, Soft Musculoskeletal: Yes: WNL Extremities: Yes: WNL Neurological: Yes: Alert, Oriented Psychiatric: Yes: Alert, Oriented Labs: CBC, BMP 02/03/20 08:00 02/03/20 08:00 INR, PTT INR 1.23 (0.83-1.09) H 01/10/20 13:50 Assessment/Plan Problem List - Problems (1) Edema of scrotum Code(s): N50.89 - OTHER SPECIFIED DISORDERS OF THE MALE GENITAL ORGANS (2) Morbid obesity Code(s): E66.01 - MORBID (SEVERE) OBESITY DUE TO EXCESS CALORIES (3) Acute on chronic diastolic (congestive) heart failure Code(s): I50.33 - ACUTE ON CHRONIC DIASTOLIC (CONGESTIVE) HEART FAILURE (4) Acute respiratory failure requiring reintubation Code(s): J96.00 - ACUTE RESPIRATORY FAILURE, UNSP W HYPOXIA OR HYPERCAPNIA (5) Afib Code(s): I48.91 - UNSPECIFIED ATRIAL FIBRILLATION Qualifiers: Atrial fibrillation type: paroxysmal Qualified Code(s): I48.0 - Paroxysmal atrial fibrillation Assessment/Plan Acute respiratory failure s/p trach on MV PNA Ileus/ pseudoobstruction CHF b/l LE Cellulitis b/l Hydrocele MONIE Paroxysmal AFIB COPD JUANA CAD HTN HLD plan continue current mgmt rest as per the team s/p abx course rest as per the team
[2020-02-03 12:31] LABS: ANISOCYTOSIS 2+; MACROCYTOSIS 1+; OVALOCYTE 1+; PLATELET ESTIMATE NORMAL
[2020-02-03 13:02] VITALS: BP 113/70; PULSE 88; TEMP 98.1
--- NOTE | 2020-02-03 13:12 | PN ---
Progress Note, STAFF RADIOLOGIST - Note Progress Note: 64 yo male seen by STAFF RADIOLOGIST at chairside for follow up to recently upgraded to soft solids with thin liquids. Pt observed at lunchtime with new diet and doing very well consuming the diet with any s/s of aspiration-like behaviors. Recommendations Continue po intake of soft diet (moisten) and thin liquids as tolerated. Observe standard aspiration precautions. Encourage thorough chewing, no talking with bolus in mouth, and slow rate of intake. Provide oral care before and after meal meals. Results given verbally to devulcanizer charger and PCP. STAFF RADIOLOGIST to follow up for diet tolerance.
== END 2020-02-03 13:29 | DRG 4 ==
LOC: SUPCPDRO 17:31 → JER 17:31 → JERBED 19:59 → J4W 23:05 → JICU 12-17 03:00 → J5S 01-12 00:07
PROVIDERS: ADMIT Internal Medicine; ATTEND Family Medicine
PROC: 5A1955Z Respiratory Ventilation, Greater than 96 Consecutive Hours (ICD-10-PCS; principal; 2019-12-17)
PROC: 0BH17EZ Insertion of Endotracheal Airway into Trachea, Via Natural or Artificial Opening (ICD-10-PCS; 2019-12-17)
PROC: 0DH67UZ Insertion of Feeding Device into Stomach, Via Natural or Artificial Opening (ICD-10-PCS; 2019-12-17)
PROC: 3E0G76Z Introduction of Nutritional Substance into Upper GI, Via Natural or Artificial Opening (ICD-10-PCS; 2019-12-17)
PROC: 05HM33Z Insertion of Infusion Device into Right Internal Jugular Vein, Percutaneous Approach (ICD-10-PCS; 2019-12-19)
PROC: B543ZZA Ultrasonography of Right Jugular Veins, Guidance (ICD-10-PCS; 2019-12-19)
PROC: 4A133B1 Monitoring of Arterial Pressure, Peripheral, Percutaneous Approach (ICD-10-PCS; 2019-12-21)
PROC: 4A133J1 Monitoring of Arterial Pulse, Peripheral, Percutaneous Approach (ICD-10-PCS; 2019-12-21)
PROC: 05HN33Z Insertion of Infusion Device into Left Internal Jugular Vein, Percutaneous Approach (ICD-10-PCS; 2019-12-28)
PROC: B544ZZA Ultrasonography of Left Jugular Veins, Guidance (ICD-10-PCS; 2019-12-28)
PROC: 0B113F4 Bypass Trachea to Cutaneous with Tracheostomy Device, Percutaneous Approach (ICD-10-PCS; 2020-01-10)
PROC: 0BJ08ZZ Inspection of Tracheobronchial Tree, Via Natural or Artificial Opening Endoscopic (ICD-10-PCS; 2020-01-10)
DX: J96.01 Acute respiratory failure with hypoxia (principal); J15.212 Pneumonia due to Methicillin resistant Staphylococcus aureus; A41.02 Sepsis due to Methicillin resistant Staphylococcus aureus; R65.21 Severe sepsis with septic shock; R57.0 Cardiogenic shock; I50.43 Acute on chronic combined systolic (congestive) and diastolic (congestive) heart failure; J44.1 Chronic obstructive pulmonary disease with (acute) exacerbation; L03.116 Cellulitis of left lower limb; L03.115 Cellulitis of right lower limb; E87.2 Acidosis; N17.9 Acute kidney failure, unspecified; E87.3 Alkalosis; E87.0 Hyperosmolality and hypernatremia; K56.7 Ileus, unspecified; G47.33 Obstructive sleep apnea (adult) (pediatric); J96.02 Acute respiratory failure with hypercapnia; K21.9 Gastro-esophageal reflux disease without esophagitis; I48.0 Paroxysmal atrial fibrillation; E78.5 Hyperlipidemia, unspecified; N43.3 Hydrocele, unspecified; N50.3 Cyst of epididymis; E66.9 Obesity, unspecified; Z68.31 Body mass index [BMI] 31.0-31.9, adult; E87.6 Hypokalemia; E83.42 Hypomagnesemia; I25.119 Atherosclerotic heart disease of native coronary artery with unspecified angina pectoris; I89.0 Lymphedema, not elsewhere classified; I11.0 Hypertensive heart disease with heart failure; F17.210 Nicotine dependence, cigarettes, uncomplicated; I27.20 Pulmonary hypertension, unspecified; E87.70 Fluid overload, unspecified; F41.9 Anxiety disorder, unspecified
CPT/HCPCS: 36415; 36600; 71045-TC-FY; 74018-TC-FY; 74176-TC; 74177-TC; 74190-TC-FY; 74230-TC-FY; 76870-TC; 80048; 80053; 81003; 82248; 82550; 82803; 82962; 83735; 83880; 84100; 84478; 84484; 85025; 85027; 85610; 86850; 86900; 86901; 87040; 87070; 87077; 87086; 87186; 87205; 92611-GN; 93005; 93010; 93306-TC; 94002; 94640; 94660; 97116-GP; 97162-GP; 99291; G0480; J0131; Q9967; U0003

== ENCOUNTER 2020-06-08 08:39 | Day surgery (SDC) | payer OTHER, BC ==
[2020-06-04 16:26] VITALS: BMI 36.9
[2020-06-08] MEDS ORDERED: PROPOFOL 20 ML ONE ×3 (08:47)
[2020-06-08] MEDS ORDERED: LIDOCAINE HCL/PF 2% SDV 5ML VIAL ONE (08:47)
[2020-06-08 11:01] VITALS: PULSE 87; TEMP 98
[2020-06-08 11:30] VITALS: BP 147/71
== END 2020-06-08 11:34 | disposition home or self-care (01) ==
LOC: FASU-ENDO 08:39
PROVIDERS: ATTEND Internal Medicine Gastroenterology
PROC: 0DBK8ZX Excision of Ascending Colon, Via Natural or Artificial Opening Endoscopic, Diagnostic (ICD-10-PCS; 2020-06-08)
PROC: 0DBH8ZX Excision of Cecum, Via Natural or Artificial Opening Endoscopic, Diagnostic (ICD-10-PCS; 2020-06-08)
PROC: 0DBN8ZX Excision of Sigmoid Colon, Via Natural or Artificial Opening Endoscopic, Diagnostic (ICD-10-PCS; principal; 2020-06-08 10:26)
DX: Z86.010 Personal history of colon polyps (principal); K64.1 Second degree hemorrhoids; D12.5 Benign neoplasm of sigmoid colon; D17.79 Benign lipomatous neoplasm of other sites
CPT/HCPCS: 88305-TC

== ENCOUNTER 2022-03-21 13:21 | Day surgery (SDC) | payer OTHER, BC ==
[2022-03-20 10:22] VITALS: BMI 44.1
[2022-03-21 14:55] VITALS: RESP 18; TEMP 97.7
[2022-03-21 15:17] VITALS: BP 128/74; PULSE 72
== END 2022-03-21 15:55 | disposition home or self-care (01) ==
LOC: FASU-ENDO 13:21
PROVIDERS: ATTEND Internal Medicine Gastroenterology
PROC: 0DBP8ZX Excision of Rectum, Via Natural or Artificial Opening Endoscopic, Diagnostic (ICD-10-PCS; 2022-03-21)
PROC: 0DBP8ZX Excision of Rectum, Via Natural or Artificial Opening Endoscopic, Diagnostic (ICD-10-PCS; principal; 2022-03-21 14:13)
DX: Z12.11 Encounter for screening for malignant neoplasm of colon (principal); Z86.010 Personal history of colon polyps; K64.1 Second degree hemorrhoids; K63.5 Polyp of colon
CPT/HCPCS: 88305-TC